=== PATIENT | male | born 1970 | race Two or more races ===

== ENCOUNTER 2020-08-11 20:17 | Inpatient (IN) | payer MEDICAID, SELFPAY ==
[2020-08-12 04:16] VITALS: BMI 21.6
--- NOTE | 2020-08-12 07:07 | ECG_ITS ---
Test Reason : CHEST PAIN Blood Pressure : / mmHG Vent. Rate : 079 BPM Atrial Rate : 079 BPM P-R Int : 176 ms QRS Dur : 110 ms QT Int : 420 ms P-R-T Axes : 038 -24 143 degrees QTc Int : 481 ms Normal sinus rhythm ST & T wave abnormality, consider lateral ischemia Prolonged QT Abnormal ECG When compared with ECG of 11-AUG-2020 16:59, No significant change was found Referred By: Maurice Grover Electronically Signed By:SUSANNE ROSA
[2020-08-13] VITALS (12 sets, daily range): BP systolic 100–133; BP diastolic 60–86; PULSE 66–81; RESP 15–18; TEMP 36.6–36.9; O2SAT 94–100; BMI 54.0
[2020-08-13] MEDS: ondansetron HCL 4 MG/2 ML VIAL IVPUSH ×2 (02:45→20:30)
[2020-08-13 06:52] LABS: B Type Natriuretic Peptide 2017 pg/mL (<100)
[2020-08-13 06:54] LABS: Anion Gap 11 (12-20); Blood Urea Nitrogen 21 mg/dL (9-16); Calcium 8.6 mg/dL (8.4-10.2); Carbon Dioxide 34 mmol/L (22-29); Chloride 91 mmol/L (96-108); Creatinine Clr Calc Pharmacy 87.3; Estimated Glomerular Filt Rate > 60; Glucose Fasting 115 mg/dL (60-99); Sodium 132 mmol/L (135-145)
[2020-08-13 07:13] LABS: Glucose, Whole Blood 106 mg/dL (60-115)
[2020-08-13] MEDS: carvediloL 6.25 MG TABLET PO ×2 (09:47→20:30)
[2020-08-13] MEDS: 0.9 % Sodium Chloride Flush 3 ML SYRINGE 2 ML IVFLUSH ×3 (09:48→16:59)
[2020-08-13] MEDS: Spironolactone 25 MG TABLET 12.5 MG PO (11:12)
[2020-08-13] MEDS: Losartan Potassium 25 MG TABLET PO (11:13)
[2020-08-13 11:29] LABS: Glucose, Whole Blood 179 mg/dL (60-115)
[2020-08-13 16:37] LABS: Glucose, Whole Blood 126 mg/dL (60-115)
[2020-08-13] MEDS: Acetaminophen 325 MG TABLET 650 MG PO (16:58)
--- NOTE | 2020-08-13 17:05 | HO.PM.IMPN ---
Subjective Subjective Date of Service: 08/13/20 Interval History: Patient presented with chest pain patient complaining of persistent chest pain asking for oxycodone or Motrin, he denies shortness of breath , PND , orthopnea Review of Systems Review of systems [employer] no headache, no dizziness CVS persistent reproducible chest pain, no cough gastrointestinal no nausea, no vomiting Physical Exam Vital Signs and I&O and Narrative: Vital Signs and I&O: Vital Signs Temp 98.1 F 08/13/20 15:18 Pulse 66 08/13/20 15:18 Resp 18 08/13/20 15:18 BP 100/60 08/13/20 15:18 Pulse Ox 96 08/13/20 15:18 Intake & Output 08/12/20 08/13/20 08/13/20 18:59 06:59 18:59 Intake Total 530 / 530 Output Total 500 / 500 901 / 901 Balance -500 / -500 -371 / -371 Urine Output (Aver age ml/kg/hr) 0.27 0.49 Weight 151.9 kg Intake: Intake, Oral Alexander unt 530 / 530 Output: Output, Urine Am ount 500 / 500 900 / 900 Output, Emesis A mount Other: Meal Refused Yes NPO No Breakfast % Eate n 25% Lunch % Eaten 25% Number of Unmeas ured Emesis 1 Episodes Urine Urinal Urinal Urine Color Yellow Yellow Emesis Color Brown Body Mass Index 54.0 Constitutional: Awake and Alert, no distress Cardiovascular: RRR, S1 S2 Respiratory: Lungs clear, no crackles, no respiratory distress Gastrointestinal: Normal bowel sounds, nontender Right extremities: BKA Left extremities: Improving lower extremity edema Musculoskeletal: Reproducible anterior chest wall pain, no swelling, no redness. Skin: Warm/Dry Neurological: Alert & oriented x3 Objective Data Current Medications Generic Name Dose Route Start Last Admin Trade Name Freq PRN Reason Stop Dose Admin Acetaminophen 650 mg 08/13/20 00:01 08/13/20 16:58 Acetaminophen 325 Mg Tablet PO 650 mg Q6H PRN Administration fever/pain,mild (1,3) Albuterol Sulfate 2.5 mg 08/13/20 00:01 Albuterol Sulfate (0.083%) 2.5 Mg/3 Ml Vial.Neb INHALE RQ4H PRN Shortness of Breath/Wheezing Atorvastatin Calcium 20 mg 08/13/20 21:00 Atorvastatin Calcium 20 Mg Tablet PO DAILY [facility] Carvedilol 6.25 mg 08/13/20 09:00 08/13/20 09:47 Carvedilol 6.25 Mg Tablet PO 6.25 mg BID [facility] Administration Protocol Enoxaparin Sodium 40 mg 08/13/20 18:00 08/13/20 17:04 Enoxaparin Sodium 40 Mg/0.4 Ml Syringe SUBCUT Not Given Q24H [facility] Furosemide 40 mg 08/13/20 10:24 Furosemide 40 Mg Tablet PO DAILY [facility] Protocol Losartan Potassium 25 mg 08/13/20 10:00 08/13/20 11:13 Losartan Potassium 25 Mg Tablet PO 25 mg DAILY [facility] Administration Protocol Methadone HCl 50 mg 08/13/20 09:00 08/13/20 09:49 Methadone Hcl 1 Mg/0.1 Ml Oral.Conc PO 50 mg DAILY [facility] Administration Ondansetron HCl 4 mg 08/13/20 00:01 08/13/20 02:45 Ondansetron Hcl 4 Mg/2 Ml Vial IVPUSH 4 mg Q8H PRN Administration Nausea and Vomiting Sodium Chloride 2 ml 08/13/20 00:01 08/13/20 16:59 0.9 % Sodium Chloride Flush 3 Ml Syringe IVFLUSH 2 ml QSHIFT [facility] Administration Spironolactone 12.5 mg 08/13/20 10:00 08/13/20 11:12 Spironolactone 25 Mg Tablet PO 12.5 mg DAILY [facility] Administration Protocol Labs CBC & Chem 7: 08/12/20 05:52 08/13/20 06:00 Labs: Laboratory Results - last 24 hr 08/11/20 08/11/20 08/11/20 16:31 16:31 16:31 MCV MCH MCHC RDW Coeff of Anthony Plt Count MPV Immature Gran % (Auto) Neut % (Auto) Lymph % (Auto) [place] % (Auto) Eos % (Auto) Baso % (Auto) Abs Immat Gran (auto) Absolute Lymphs (auto) Absolute Monos (auto) Absolute Eos (auto) Absolute Basos (auto) Absolute Nucleated RBC Nucleated RBC % (auto) Absolute Neutrophils PT INR APTT Bicarbonate 27 Anion Gap 17 Estimated Creat Clear 82.5 Estim Creat Clear Calc Estimated GFR Est GFR (Non-Af Amer) > 60 POC Glucose Random Glucose 131 H Fasting Glucose Calcium Iron TIBC Iron Saturation Total Bilirubin 0.6 Direct Bilirubin 0.4 AST 29 D ALT 20 Alkaline Phosphatase 176 H D Troponin I High Sens 19.1 D B-Natriuretic Peptide 2043 H Total Protein 8.6 H Albumin 3.6 Procalcitonin 0.04 ABO Group 08/11/20 08/11/20 08/11/20 16:31 16:31 19:27 MCV 84.7 MCH 26.2 L MCHC 30.9 L RDW Coeff of Anthony 18.5 H Plt Count 454 H MPV 9.8 Immature Gran % (Auto) 0.4 Neut % (Auto) 77.5 H Lymph % (Auto) 11.6 L [place] % (Auto) 9.0 Eos % (Auto) 1.2 Baso % (Auto) 0.3 Abs Immat Gran (auto) 0.04 H Absolute Lymphs (auto) 1.2 Absolute Monos (auto) 0.9 Absolute Eos (auto) 0.1 Absolute Basos (auto) 0.0 Absolute Nucleated RBC 0.000 Nucleated RBC % (auto) 0.0 Absolute Neutrophils 7.8 PT 16.0 H INR 1.3 H APTT 36.4 Bicarbonate Anion Gap Estimated Creat Clear Estim Creat Clear Calc Estimated GFR Est GFR (Non-Af Amer) POC Glucose Random Glucose Fasting Glucose Calcium Iron TIBC Iron Saturation Total Bilirubin Direct Bilirubin AST ALT Alkaline Phosphatase Troponin I High Sens 19.2 B-Natriuretic Peptide Total Protein Albumin Procalcitonin ABO Group 08/11/20 08/12/20 08/12/20 19:27 01:09 05:52 MCV MCH MCHC RDW Coeff of Anthony Plt Count MPV Immature Gran % (Auto) Neut % (Auto) Lymph % (Auto) [place] % (Auto) Eos % (Auto) Baso % (Auto) Abs Immat Gran (auto) Absolute Lymphs (auto) Absolute Monos (auto) Absolute Eos (auto) Absolute Basos (auto) Absolute Nucleated RBC Nucleated RBC % (auto) Absolute Neutrophils PT INR APTT Bicarbonate 31 H Anion Gap 13 Estimated Creat Clear 90.5 Estim Creat Clear Calc Estimated GFR Est GFR (Non-Af Amer) > 60 POC Glucose Random Glucose 92 Fasting Glucose Calcium 8.9 Iron 192 H TIBC < 209 L Iron Saturation TNP Total Bilirubin Direct Bilirubin AST ALT Alkaline Phosphatase Troponin I High Sens 18.5 B-Natriuretic Peptide Total Protein Albumin Procalcitonin ABO Group PRODUCT AVAILABLE 08/12/20 08/12/20 08/12/20 05:52 07:29 11:39 MCV 84.8 MCH 26.2 L MCHC 30.9 L RDW Coeff of Anthony 18.2 H Plt Count 395 MPV 9.8 Immature Gran % (Auto) 0.6 H Neut % (Auto) 70.9 Lymph % (Auto) 12.0 L [place] % (Auto) 15.4 H Eos % (Auto) 0.9 Baso % (Auto) 0.2 Abs Immat Gran (auto) 0.05 H Absolute Lymphs (auto) 1.1 L Absolute Monos (auto) 1.4 H Absolute Eos (auto) 0.1 Absolute Basos (auto) 0.0 Absolute Nucleated RBC 0.000 Nucleated RBC % (auto) 0.0 Absolute Neutrophils 6.4 PT INR APTT Bicarbonate Anion Gap Estimated Creat Clear Estim Creat Clear Calc Estimated GFR Est GFR (Non-Af Amer) POC Glucose 86 141 H Random Glucose Fasting Glucose Calcium Iron TIBC Iron Saturation Total Bilirubin Direct Bilirubin AST ALT Alkaline Phosphatase Troponin I High Sens B-Natriuretic Peptide Total Protein Albumin Procalcitonin ABO Group 08/12/20 08/13/20 08/13/20 16:20 05:34 05:34 MCV MCH MCHC RDW Coeff of Anthony Plt Count MPV Immature Gran % (Auto) Neut % (Auto) Lymph % (Auto) [place] % (Auto) Eos % (Auto) Baso % (Auto) Abs Immat Gran (auto) Absolute Lymphs (auto) Absolute Monos (auto) Absolute Eos (auto) Absolute Basos (auto) Absolute Nucleated RBC Nucleated RBC % (auto) Absolute Neutrophils PT INR APTT Bicarbonate Anion Gap 11 L Estimated Creat Clear Estim Creat Clear Calc 87.3 Estimated GFR > 60 Est GFR (Non-Af Amer) POC Glucose 93 Random Glucose Fasting Glucose 115 H Calcium 8.6 Iron TIBC Iron Saturation Total Bilirubin Direct Bilirubin AST ALT Alkaline Phosphatase Troponin I High Sens B-Natriuretic Peptide 2017 H Total Protein Albumin Procalcitonin ABO Group 08/13/20 08/13/20 08/13/20 06:00 06:00 07:09 MCV MCH MCHC RDW Coeff of Anthony Plt Count MPV Immature Gran % (Auto) Neut % (Auto) Lymph % (Auto) [place] % (Auto) Eos % (Auto) Baso % (Auto) Abs Immat Gran (auto) Absolute Lymphs (auto) Absolute Monos (auto) Absolute Eos (auto) Absolute Basos (auto) Absolute Nucleated RBC Nucleated RBC % (auto) Absolute Neutrophils PT INR APTT Bicarbonate Not Rcvd Anion Gap Not Rcvd Estimated Creat Clear Not Rcvd Estim Creat Clear Calc Estimated GFR Est GFR (Non-Af Amer) Not Rcvd POC Glucose 106 Random Glucose Fasting Glucose Not Rcvd Calcium Not Rcvd Iron TIBC Iron Saturation Total Bilirubin Direct Bilirubin AST ALT Alkaline Phosphatase Troponin I High Sens B-Natriuretic Peptide Not Rcvd Total Protein Albumin Procalcitonin ABO Group 08/13/20 08/13/20 11:26 16:24 MCV MCH MCHC RDW Coeff of Anthony Plt Count MPV Immature Gran % (Auto) Neut % (Auto) Lymph % (Auto) [place] % (Auto) Eos % (Auto) Baso % (Auto) Abs Immat Gran (auto) Absolute Lymphs (auto) Absolute Monos (auto) Absolute Eos (auto) Absolute Basos (auto) Absolute Nucleated RBC Nucleated RBC % (auto) Absolute Neutrophils PT INR APTT Bicarbonate Anion Gap Estimated Creat Clear Estim Creat Clear Calc Estimated GFR Est GFR (Non-Af Amer) POC Glucose 179 H 126 H Random Glucose Fasting Glucose Calcium Iron TIBC Iron Saturation Total Bilirubin Direct Bilirubin AST ALT Alkaline Phosphatase Troponin I High Sens B-Natriuretic Peptide Total Protein Albumin Procalcitonin ABO Group
[2020-08-13] MEDS: Atorvastatin Calcium 20 MG TABLET PO (20:30)
[2020-08-13 21:55] LABS: Glucose, Whole Blood 178 mg/dL (60-115)
[2020-08-14] VITALS: BP 114/76; PULSE 66; RESP 18; TEMP 36.9; O2SAT 95
[2020-08-14] MEDS: 0.9 % Sodium Chloride Flush 3 ML SYRINGE 2 ML IVFLUSH ×2 (01:33→09:01)
[2020-08-14 01:56] LABS: Glucose, Whole Blood 114 mg/dL (60-115)
[2020-08-14 04:01] VITALS: BP 125/76; PULSE 63; RESP 18; TEMP 36.9; O2SAT 100
[2020-08-14] MEDS: Acetaminophen 325 MG TABLET 650 MG PO (04:01)
[2020-08-14 05:20] VITALS: BMI 24.4
--- NOTE | 2020-08-14 05:39 | PC.NURSE ---
PATIENT HAD A 3 BEAT OF VTACH AT 2143. PT WAS ASYMPTOMATIC. HOSPITALIST NOTIFIED VIA [employer]. WILL CONTINUE TO MONITOR
--- NOTE | 2020-08-14 05:42 | PC.NURSE ---
PATIENT HAD A 7 BEAT OF VTACH AT 2200. PT ASSESSED, PT ASYMPTOMATIC. HOSPITALIST NOTIFIED. WILL CONTINUE TO MONITOR.
[2020-08-14 07:02] LABS: Anion Gap 11 (12-20); Blood Urea Nitrogen 17 mg/dL (9-16); Calcium 8.4 mg/dL (8.4-10.2); Carbon Dioxide 33 mmol/L (22-29); Chloride 90 mmol/L (96-108); Creatinine Clr Calc Pharmacy 84.7; Estimated Glomerular Filt Rate > 60; Glucose Random 171 mg/dL (60-115); Potassium 4.4 mmol/l (3.3-5.1); Sodium 130 mmol/L (135-145)
[2020-08-14 07:23] VITALS: BP 109/73; PULSE 65; RESP 18; TEMP 36.1; O2SAT 99
[2020-08-14 07:34] LABS: Glucose, Whole Blood 141 mg/dL (60-115)
[2020-08-14] MEDS: Spironolactone 25 MG TABLET 12.5 MG PO (09:02)
[2020-08-14] MEDS: Furosemide 40 MG TABLET PO (09:02)
[2020-08-14] MEDS: Atorvastatin Calcium 20 MG TABLET PO (09:02)
[2020-08-14] MEDS: Losartan Potassium 25 MG TABLET PO (09:03)
[2020-08-14] MEDS: carvediloL 6.25 MG TABLET PO (09:04)
--- NOTE | 2020-08-14 10:03 | CONS_ITS ---
DATE OF SERVICE: 08/13/2020 REQUESTING PROVIDER: Dinh Mccain MD REASON FOR CONSULTATION: History of severe cardiomyopathy and heart failure to optimize medical therapy. HISTORY OF PRESENT ILLNESS: This is a 50-year-old male with prior history of severe cardiomyopathy and LV systolic dysfunction with LVEF of about 10% to 15% by yesterday's echocardiogram, congestive heart failure syndrome, below-knee amputation, and diabetes presents to the hospital because of chest discomfort. He describes chest discomfort, which has been chronic problem, which is reproducible and worse with deep breathing. History was obtained with help of shield operator. Despite the shield operator, the patient is a very poor historian, does not know lot of his medical history from before. The patient came to the hospital because of the symptoms as mentioned. Cardiology consult was sought as there was unclear medicines at home. He denied any shortness of breath, nausea, or vomiting. No significant leg edema. When he came to the hospital, he was noted to be anemic with hemoglobin of 7.7. He subsequently transfused and he also noticed to have significantly elevated BNP. He was started on IV Lasix drip. The patient since yesterday has been diuresed. His intake and output chart from yesterday shows a negative balance of 500 cc. He is hemodynamically stable. He denies any orthopnea. Currently, continues to have this chest discomfort across the lower rib cage. He has no other complaints, but is focused on his chest pain. PAST MEDICAL HISTORY: Severe LV systolic dysfunction with heart failure with reduced ejection fraction with an echocardiogram yesterday showing LVEF of 10% to 15% with grade 3 diastolic dysfunction and pulmonary hypertension. He has untreated hepatitis C. He has bipolar disorder. He has polysubstance abuse on chronic methadone. He has diabetes. He has peripheral neuropathy, status post right below-knee amputation for what appears to be infection. FAMILY HISTORY: Noncontributory. PERSONAL HISTORY: Denies any smoking, alcohol abuse, or drug abuse. He lives at home. MEDICATIONS: He does not know his medications at home. Medications currently in the hospital include methadone 50 mg p.o. daily, Lovenox 40 mg subcu daily, carvedilol 6.25 mg b.i.d. Today, I added spironolactone 12.5 mg daily, atorvastatin 20 mg daily, losartan 25 mg daily, furosemide 40 mg p.o. daily. P.r.n. medicines are acetaminophen, Zofran, and albuterol. REVIEW OF SYSTEMS: Very difficult to obtain from the patient. The patient has no fever or chills. No recent weight gain or weight loss. No focal deficits. No visual changes or hearing loss. No upper respiratory or lower respiratory symptoms. Continues to have this across the chest thoracic cage discomfort, which is sharp in nature and reproducible with deep breathing as well as by touch. Denies any pressure. Denies any GI or symptoms. No leg edema. PHYSICAL EXAMINATION: GENERAL: The patient is alert and oriented x3, middle-aged man, in no acute respiratory distress, lying comfortably in bed. Pallor. There is no icterus. No cyanosis. VITAL SIGNS: Blood pressure currently is 123/76, pulse is 73, sinus rhythm, respirations of 14 to 16 per minute, pulse ox of 99% on room air, and temperature 97.9. HEENT: Normocephalic and atraumatic. NECK: Supple without jugular venous distention. LUNGS: Clear to auscultation. CARDIAC: Displaced point of maximum impulse, but regular S1 and S2 with S4. ABDOMEN: Benign. EXTREMITIES: Below-knee amputation on the right. Minimal edema on the left. BIOLOGICAL INSPECTOR: Grossly nonfocal. SKIN: Warm and moist. Good turgor. LABORATORY DATA: Sodium today 132, potassium 4, BUN 21, creatinine 0.85, and fasting glucose of 115. BNP of 2017. Hemoglobin yesterday 8.6, hematocrit 27.8, white cell count 9, and platelet count of 395. Pro-time 16 and INR 1.3. Chest x-ray is consistent with mild CHF with cardiomegaly with no acute cardiopulmonary pathology. EKG showed normal sinus rhythm with lateral ST-T wave changes, most likely related to repolarization abnormality with mildly prolonged QT interval. ASSESSMENT: This is a 50-year-old male who comes to the hospital with chest pain, which is noncardiac in origin, appears to be musculoskeletal related to prior trauma or psychogenic with underlying severe cardiomyopathy, grade 3 diastolic dysfunction with no overt signs of heart failure at current time with poor compliance with followup. Last seen in Cardiology Clinic here in July of [address] Gaming. PLAN: At this time, I think re-initiation of his cardiac medications has appropriately done currently. Continue carvedilol and gradually maximize as outpatient. Continue losartan and gradually maximize as outpatient and eventually can be switched to Entresto therapy as outpatient. Agree with Aldactone therapy. Agree with p.o. Lasix at this point in time, which can be eventually switched to torsemide his usual heart failure medications. Continue supportive care. Diabetes care as per the hospitalist team. From cardiac perspective, when ready, the patient can be discharged home. We discussed about heart failure management and knowing his medications, he showed no interest in wanting to learn about all his medications. The patient would like to follow with Cardiology at [facility]. This is being arranged by his primary care physician. MD SHABANA Azevedo/LISA / [phone]
[2020-08-14 11:16] VITALS: BP 135/74; PULSE 65; RESP 18; TEMP 36.3; O2SAT 98
[2020-08-14 11:31] LABS: Glucose, Whole Blood 212 mg/dL (60-115)
--- NOTE | 2020-08-14 12:49 | PM.DS ---
DS: Providers Provider Date of admission: 08/11/20 20:17 Primary care physician: Ashley Pendleton MD Consults: 08/12/20 21:24 Consult to Cardiology Routine Consulting Provider: Bishop Francisco Reason for consultation: chf DS: Diagnosis Discharge Diagnosis (1) Acute on chronic combined systolic and diastolic congestive heart failure: Status: Acute (2) Acute on chronic anemia: Status: Acute (3) Chest pain: Status: Acute DS: Summary Hospital Course Hospital Course: 50-year-old gentleman with past medical history significant for cardiomyopathy EF 10-15%, untreated hepatitis C bipolar disorder on methadone due to prior history of polysubstance abuse presented to [facility] due to intermittent stabbing 07/23 chest discomfort patient was noted to have reproducible chest pain however workup in the emergency room revealed an elevated BN BP of 204/3 hematocrit was 24.9 with recent prior hematocrit of 30.3 patient was admitted to [facility] with a diagnosis of acute on chronic systolic/ diastolic congestive heart failure acute on chronic systolic/ diastolic congestive heart failure with EF 10-15% patient was initially treated with IV Lasix drip with good response patient diuresed 3 L his symptoms of shortness of breathimproved significantly however he continued to complain of chest pain and requested for oxycodone, patient was seen in consultation by Dr. Scanlon he recommended to resume all home medications patient tolerated a Coreg, losartan, Lasix and spironolactone BP remains stable therefore being discharged home and have strongly recommended to avoid using NSAIDs and oxycodone in regard to his chronic medical issues he is continued on all of his home medications. Patient is not being discharged home on any new medications. Time Spent with Patient Time attestation: Total time spent providing and/or coordinating discharge services: Time spent: Greater than 30 minutes Physical Exam Vital Signs and I&O and Narrative: Vital Signs and I&O: Vital Signs Temp 97.3 F 08/14/20 11:16 Pulse 65 08/14/20 11:16 Resp 18 08/14/20 11:16 BP 135/74 08/14/20 11:16 Pulse Ox 98 08/14/20 11:16 Intake & Output 08/13/20 08/14/20 08/14/20 18:59 06:59 18:59 Intake Total 740 / 980 240 / 980 Output Total 1301 / 1951 650 / 1951 Balance -561 / -971 -410 / -971 Urine Output (Aver age ml/kg/hr) 0.49 0.79 0.79 Weight 68.577 kg Intake: Intake, Oral Alexander unt 740 / 980 240 / 980 Output: Output, Urine Am ount 900 / 1550 650 / 1550 Output, Emesis A mount 401 / 401 0 / 401 Other: Meal Refused Yes NPO No Breakfast % Eate n 25% 100% Lunch % Eaten 25% Dinner % Eaten 25% Number of Unmeas ured Emesis 2 Episodes Urine Urinal Urinal Urine Color Yellow Yellow Emesis Color Rice Body Mass Index 24.4 DS: Data Data Completed and Pending Labs on day of discharge: Labs from last 24 hours 08/14/20 08/14/20 08/14/20 11:23 07:30 05:33 Sodium 130 L Potassium 4.4 Chloride 90 L Carbon Dioxide 33 H Anion Gap 11 L BUN 17 H Creatinine 0.92 Estim Creat Clear Calc 84.7 Estimated GFR > 60 POC Glucose 212 H 141 H Random Glucose 171 H Calcium 8.4 Blood Type Antibody Screen 08/14/20 08/13/20 08/13/20 01:53 21:52 16:24 Sodium Potassium Chloride Carbon Dioxide Anion Gap BUN Creatinine Estim Creat Clear Calc Estimated GFR POC Glucose 114 178 H 126 H Random Glucose Calcium Blood Type Antibody Screen 08/11/20 19:25 Sodium Potassium Chloride Carbon Dioxide Anion Gap BUN Creatinine Estim Creat Clear Calc Estimated GFR POC Glucose Random Glucose Calcium Blood Type B Positive Antibody Screen NEGATIVE Discharge Plan Discharge Patient Disposition: Home, Self-Care Referrals: [facility] [Other] [facility] [Other] Ashley Pendleton MD [Primary Care Provider] - 1 Week (Please call and schedule a follow up appointment with your wood piler. [phone].) Discharge Medications: Continued albuterol sulfate 2.5 mg /3 mL (0.083 %) Solution For Nebulization 2.5 mg inhalation Q4H PRN (Reason: Shortness Of Breath Or Wheezing) RF: 0 (DME) lancets Misc MISCELLANEOUS RF: 0 famotidine [Pepcid] 20 mg Tablet 20 mg PO BID RF: 0 (DME) blood-glucose meter [FreeStyle [place] Lite] Kit MISCELLANEOUS RF: 0 (DME) cane Device MISCELLANEOUS RF: 0 (DME) FreeStyle Lite Strips RF: 0 magnesium oxide [MagOx] 400 mg (241.3 mg magnesium) Tablet 400 mg PO DAILY RF: 0 (DME) pen needle, diabetic Needle MISCELLANEOUS RF: 0 methadone 10 mg/mL Concentrate 50 mg PO DAILY RF: 0 albuterol sulfate 90 mcg/actuation Hfa Aerosol Inhaler 2 puff INHALATION Q4H PRN (Reason: Shortness Of Breath) RF: 0 zinc sulfate 110 mg (25 mg zinc) Tablet 220 mg PO DAILY RF: 0 spironolactone 25 mg Tablet 12.5 mg PO DAILY RF: 0 sennosides [senna] 8.6 mg Tablet 8.6 mg PO BEDTIME PRN (Reason: Constipation) RF: 0 Lantus U-100 Insulin 100 unit/mL Solution 12 unit SUBCUT QPM RF: 0 cetirizine 10 mg Tablet 10 mg PO DAILY RF: 0 aspirin 81 mg Tablet,Delayed Release (Dr/Ec) 81 mg PO DAILY RF: 0 insulin lispro 100 unit/mL Solution 5 unit SUBCUT TIDAC RF: 0 polyethylene glycol 3350 [Miralax] 17 gram/dose Powder 17 g PO DAILY RF: 0 carvedilol 6.25 mg Tablet 6.25 mg PO BID RF: 0 atorvastatin 20 mg Tablet 20 mg PO BEDTIME RF: 0 torsemide 20 mg Tablet 20 mg PO DAILY RF: 0 lidocaine [Lidocaine Pain Relief] 4 % Adhesive Patch,Medicated 1 patch TOPICAL DAILY PRN (Reason: Pain) RF: 0 clopidogrel 75 mg Tablet 75 mg PO DAILY RF: 0 tamsulosin 0.4 mg Capsule 0.4 mg PO DAILY RF: 0 fluticasone propion-salmeterol [Advair Diskus] 500-50 mcg/dose Blister With Device 1 inh INHALATION BID RF: 0 losartan 25 mg Tablet 25 mg PO DAILY RF: 0 montelukast 10 mg Tablet 10 mg PO BEDTIME RF: 0 gabapentin 100 mg Capsule 200 mg PO TID RF: 0 ergocalciferol (vitamin D2) 1,250 mcg (50,000 unit) Capsule 1,250 mcg PO QWEEK RF: 0 fluticasone propionate [Flonase Allergy Relief] 50 mcg/actuation [place],Suspension 1 spray INTRANASAL DAILY RF: 0 oxycodone 5 mg Tablet 5 mg PO Q6H PRN (Reason: Pain (Scale Score 1-3)) RF: 0 clotrimazole 1 % Cream 1 applic TOPICAL TID RF: 0 Eucerin Cream 1 applic TOPICAL DAILY PRN (Reason: Dry Skin) RF: 0 Discontinued diclofenac potassium 50 mg Tablet 50 mg PO BID RF: 0 cefuroxime axetil [Ceftin] 500 mg Tablet 500 mg PO Q12H RF: 0 metronidazole 500 mg Tablet 2,000 mg PO DAILY RF: 0 Discharge Orders: Discharge Order (Routine); Ordered 08/14/20 Ordered By: Dinh Mccain Diet: low fat, low cholesterol and low salt diet Activity on Discharge: As tolerated Visit Report Forms: Patient Portal Discharge page Care Plan Goals: as per discharge plan Health Concerns: as per discharge plan Plan of Treatment: close outpatient follow-up with PCP and Cardiology, take all medications as prescribed
--- NOTE | 2020-08-14 14:03 | MHC.CLN ---
F/U 75% AVG PO INTAKE DIET RX: 1500 2GM NA -APPROPRIATE FRANKLIN IN PLACE TO PROMOTE WOUND HEALING FOLLOWING
== END 2020-08-14 14:29 | disposition home or self-care (01) | DRG 194 ==
PROVIDERS: Admitting Provider Internal Medicine; Emergency Provider Physician Assistant; PCP Family Medicine; Visit Provider Hospitalist
DX: I50.23 Acute on chronic systolic (congestive) heart failure (principal); E11.42 Type 2 diabetes mellitus with diabetic polyneuropathy; I42.9 Cardiomyopathy, unspecified; F11.20 Opioid dependence, uncomplicated; E78.5 Hyperlipidemia, unspecified; J45.909 Unspecified asthma, uncomplicated; B18.2 Chronic viral hepatitis C; D63.8 Anemia in other chronic diseases classified elsewhere; F31.9 Bipolar disorder, unspecified; Z89.511 Acquired absence of right leg below knee; Z88.2 Allergy status to sulfonamides; Z79.4 Long term (current) use of insulin; Z79.02 Long term (current) use of antithrombotics/antiplatelets; Z79.51 Long term (current) use of inhaled steroids; Z79.82 Long term (current) use of aspirin; Z79.899 Other long term (current) drug therapy
CPT/HCPCS: 36415; 36430; 71046; 80048; 80051; 80076; 82565; 82947; 83540; 83550; 83880; 84145; 84484; 84520; 85014; 85018; 85025; 85610; 85730; 86850; 86900; 86901; 86923; 93005; 93010; 93306; 96365; 96366; 96375; 99285; J1650; J1940; J2270; J2405; P9016; Q9957

== ENCOUNTER 2020-08-16 18:14 | Emergency (ER) | payer MEDICAID, SELFPAY ==
--- NOTE | 2020-08-16 | XR_ITS ---
EXAMINATION: XR CHEST CLINICAL INFORMATION: Chest pain COMPARISON: Chest radiograph 08/11/[address] 08/04/2020 TECHNIQUE: Frontal view of the chest was obtained. FINDINGS: Again seen is cardiomegaly. There has been some mild improvement in shaft previously noted with some mild interstitial prominence remaining. Tiny pleural effusions that had been present previously decreased in size, barely perceptible. Small amount of fluid present in the minor fissure. No focal consolidations. IMPRESSION: Cardiomegaly with slightly improved in appearances with decreasing CHF. Mild changes persist.
--- NOTE | 2020-08-16 | ECG_ITS ---
Test Reason : CHEST PAIN Blood Pressure : / mmHG Vent. Rate : 088 BPM Atrial Rate : 088 BPM P-R Int : 190 ms QRS Dur : 114 ms QT Int : 414 ms P-R-T Axes : 032 -25 126 degrees QTc Int : 500 ms Normal sinus rhythm ST & T wave abnormality, consider lateral ischemia Prolonged QT Abnormal ECG When compared with ECG of 12-AUG-2020 00:47, No significant change was found Referred By: Martin Keller Electronically Signed By:SUSANNE ROSA
[2020-08-16 18:25] VITALS: BP 127/70; BP 147/84; PULSE 109; PULSE 97; RESP 20; TEMP 36.9; O2SAT 100; BMI 21.6
--- NOTE | 2020-08-16 18:37 | ED_ITS ---
HPI - Chest Pain General Chief Complaint: Chest Pain Stated Complaint: left shoulder pain Time Seen by Provider: 08/16/20 18:22 Source: patient and EMS Mode of arrival: EMS History of Present Illness HPI narrative: 50-year-old female with chief complaint of center chest pain with left shoulder pain. Patient states has been having this pain for several weeks intermittently has been seen here multiple times for the same. Patient did have a CT scan that shows rib fractures. Patient continues to have chest pain. Denies shortness of breath. Patient states no fevers or chills. Patient states was nauseous earlier today however no vomiting. Patient states chest is very tender Onset (ago): week(s) ( weeks with worsening today) Timing of current episode: constant Prior episodes: Yes Onset: during rest Quality: aching Related Data Home Medications Medication Instructions Recorded Confirmed FreeStyle Lite Strips 08/12/20 08/12/20 albuterol sulfate 2 puff INHALATION Q4H PRN 08/12/20 08/12/20 albuterol sulfate 2.5 mg INHALATION Q4H PRN 08/12/20 08/12/20 blood-glucose meter [FreeStyle 08/12/20 08/12/20 [place] Lite] cane 08/12/20 08/12/20 famotidine [Pepcid] 20 mg PO BID 08/12/20 08/12/20 lancets 08/12/20 08/12/20 magnesium oxide [MagOx] 400 mg PO DAILY 08/12/20 08/12/20 methadone 50 mg PO DAILY 08/12/20 08/12/20 pen needle, diabetic 08/12/20 08/12/20 Eucerin 1 applic TOPICAL DAILY PRN 08/14/20 08/14/20 Lantus U-100 Insulin 12 unit SUBCUT QPM 08/14/20 08/14/20 aspirin 81 mg PO DAILY 08/14/20 08/14/20 atorvastatin 20 mg PO BEDTIME 08/14/20 08/14/20 carvedilol 6.25 mg PO BID 08/14/20 08/14/20 cetirizine 10 mg PO DAILY 08/14/20 08/14/20 clopidogrel 75 mg PO DAILY 08/14/20 08/14/20 clotrimazole 1 applic TOPICAL TID 08/14/20 08/14/20 ergocalciferol (vitamin D2) 1,250 mcg PO QWEEK 08/14/20 08/14/20 fluticasone propion-salmeterol 1 inh INHALATION BID 08/14/20 08/14/20 [Advair Diskus] fluticasone propionate [Flonase 1 spray INTRANASAL DAILY 08/14/20 08/14/20 Allergy Relief] gabapentin 200 mg PO TID 08/14/20 08/14/20 insulin lispro 5 unit SUBCUT TIDAC 08/14/20 08/14/20 lidocaine [Lidocaine Pain Relief] 1 patch TOPICAL DAILY PRN 08/14/20 08/14/20 losartan 25 mg PO DAILY 08/14/20 08/14/20 montelukast 10 mg PO BEDTIME 08/14/20 08/14/20 oxycodone 5 mg PO Q6H PRN 08/14/20 08/14/20 polyethylene glycol 3350 [Miralax] 17 g PO DAILY 08/14/20 08/14/20 sennosides [senna] 8.6 mg PO BEDTIME PRN 08/14/20 08/14/20 spironolactone 12.5 mg PO DAILY 08/14/20 08/14/20 tamsulosin 0.4 mg PO DAILY 08/14/20 08/14/20 torsemide 20 mg PO DAILY 08/14/20 08/14/20 zinc sulfate 220 mg PO DAILY 08/14/20 08/14/20 Allergies Allergy/AdvReac Type Severity Reaction Status Date / Time vancomycin [VANCOMYCIN] Allergy Intermediate HIVES Verified 08/16/20 21:06 Chocolate Allergy Unknown Rash Verified 08/16/20 21:06 ciprofloxacin [From CIPRO] Allergy Unknown SWELLING Verified 08/16/20 21:06 ertapenem Allergy Unknown Hives Verified 08/16/20 21:06 hydrocortisone [Cipro HC] Allergy Unknown Unknown Verified 08/16/20 21:06 sulfamethoxazole Allergy Unknown rash Verified 08/16/20 21:06 [From BACTRIM] trimethoprim [From BACTRIM] Allergy Unknown rash Verified 08/16/20 21:06 turkey [TURKEY] Allergy Unknown RASH Verified 08/16/20 21:06 From INVANZ Allergy Intermediate HIVES Uncoded 07/30/20 16:40 choclate Allergy Unknown rash Uncoded 07/23/19 00:00 Review of Systems Review of Systems: Constitutional : No Weight loss, No Fever, No Chills, No Night Sweats, No Fatigue, No Malaise ENT/Mouth : No Hearing loss, No Ear Pain, No Nasal Congestion, No Sinus Pain, No Hoarseness, No sore throat, No Rhinorrhea, No Swallowing Difficulty Eyes: No Eye Pain, No Swelling, No Redness, No Foreign Body, No Discharge, No Vision Changes Cardiovascular : positive Chest Pain, No SOB, No Dyspnea on Exertion, No Orthopnea, No Edema, No Palpitations Respiratory : No Cough, No Sputum, No Wheezing, No Smoke Exposure, No Dyspnea Gastrointestinal : No Nausea, No Vomiting, No Diarrhea, No Constipation, No abdominal Pain, No Hematochezia, No Melena Genitourinary : no irregular bleeding, No Dysuria, No Urinary Frequency, No Hematuria, No Urinary Incontinence, No Urgency, No Flank Pain, No Urinary Flow Changes, No Hesitancy Musculoskeletal : No joint pain, No Myalgias, lower extremity amputation Skin : No Skin Lesions, No rash Neuro : No Weakness, No Numbness, No Paresthesias, No Loss of Consciousness, No Dizziness, No Headache Psych : No Anxiety/Panic, No Depression, No SI/HI/AH/VH, No Social Issues, Heme/Lymph: No Bruising, No Bleeding,No Lymphadenopathy Endocrine : No Polyuria, No Polydipsia, No Temperature Intolerance [facility] Past Medical History Medical History COPD (chronic obstructive pulmonary disease) Diabetes mellitus, type 2 Surgical History History of amputation Social History Social History Smoked in Last 30 Days: No Use of substances other than those prescribed or required for medical reasons: Yes Substance Use Type: Marijuana Advance Directives: No Advance Directives Information Provided: Yes Physical Exam Vital Signs and I&O and Narrative: Vital Signs and I&O: Vital Signs Temp 98.2 F 08/16/20 19:45 Pulse 80 08/16/20 23:13 Resp 18 08/16/20 23:13 BP 123/74 08/16/20 23:13 Pulse Ox 98 08/16/20 22:16 Intake & Output 08/16/20 08/16/20 08/17/20 06:59 18:59 06:59 Intake Total 1000 / 1000 Balance 1000 / 1000 Weight 60.781 kg Intake: Intake, IV Amoun t 1000 / 1000 0.9 % Sodium C hloride 1,000 ml 1000 / 1000 @ 999 mls/hr I VCONT .Q1H1M [facility] Rx#:[id number] Body Mass Index 21.6 reviewed Appearance: Alert. Oriented X3. mild pain Eyes: Pupils equal, round and reactive to light. ENT: Pharynx normal. Neck: Normal inspection. Neck supple. CVS: Normal heart rate and rhythm. Pulses normal. pain on palpation to center chest. No rash. No lacerations Respiratory: No respiratory distress. Breath sounds normal. Abdomen: Soft and nontender. Skin: Skin warm and dry. Normal skin color. Normal skin turgor. Extremities: No lower extremity edema. right BKA Neuro: Oriented X 3. No motor deficit. No sensory deficit. Course Course Hospital Course: patient's records reviewed. Patient's laboratory and chest x-ray have improved from last visit. Patient does have an EF of 10%. And history of broken ribs. Patient's chest pain has been constant which are no signs of acute coronary syndrome. No signs of acute CHF. In which results showed that his chest x-ray is improved. However patient is BNP is slightly elevated however he is not hypoxic in no respiratory distress and will give him some IV Lasix and discharged home patient states his chest pain is chronic and nobody helps , It is isn't Hib follow-up with primary care doctor MDM - Chest Pain Lab Data Result diagrams: 08/16/20 18:48 08/16/20 19:39 Labs: Lab Results 08/16/20 08/16/20 08/16/20 Range/Units 18:48 18:48 19:39 WBC 8.8 (4.8-10.8) X10*3/uL RBC 4.40 L (4.60-5.80) X10*6/uL Hgb 11.4 L (14.0-18.0) g/dl Hct 38.6 L (42-52) % MCV 87.7 (80-98) fL MCH 25.9 L (27.0-33.0) pg MCHC 29.5 L (31.0-36.0) g/dl RDW 20.5 H (11.0-16.0) % Plt Count 397 (160-400) X10*3/uL MPV 9.5 (9.4-12.4) fL Immature Gran % (Auto) 0.5 H (0.0-0.4) % Neut % (Auto) 69.1 (45-73) % Lymph % (Auto) 14.7 L (20-40) % [place] % (Auto) 12.2 H (2-11) % Eos % (Auto) 3.2 (0-4) % Baso % (Auto) 0.3 (0-2) % Neut # (Auto) 6.1 (2.0-8.3) X10*3/uL Lymph # (Auto) 1.3 (1.2-4.9) X10*3/uL [place] # (Auto) 1.1 (0.1-1.2) X10*3/uL Eos # (Auto) 0.3 (0.0-0.4) X10*3/uL Baso # (Auto) 0.0 (0.0-0.2) X10*3/uL Abs Immat Gran (auto) 0.04 H (0.00-0.03) X10*3/uL Absolute Nucleated RBC 0.000 (0.0-0.012) X10*3/uL Nucleated RBC % (auto) 0.0 (0.0-0.2) /100WBC Sodium (135-145) mmol/L Potassium (3.3-5.1) mmol/l Chloride (96-108) mmol/L Carbon Dioxide (22-29) mmol/L Anion Gap (12-20) BUN (9-16) mg/dL Creatinine (0.5-1.4) mg/dL Estim Creat Clear Calc Estimated GFR Random Glucose (60-115) mg/dL Calcium (8.4-10.2) mg/dL Total Bilirubin (0.0-1.0) mg/dL Direct Bilirubin (0.0-0.5) mg/dL AST (5-37) U/L ALT (0-40) U/L Alkaline Phosphatase (39-117) U/L Troponin I High Sens 31.7 (<3.5-35.0) ng/L B-Natriuretic Peptide 2181 H (<100) pg/mL Total Protein (6.5-8.0) g/dL Albumin (3.5-5.0) g/dL 08/16/20 08/16/20 Range/Units 19:39 21:39 WBC (4.8-10.8) X10*3/uL RBC (4.60-5.80) X10*6/uL Hgb (14.0-18.0) g/dl Hct (42-52) % MCV (80-98) fL MCH (27.0-33.0) pg MCHC (31.0-36.0) g/dl RDW (11.0-16.0) % Plt Count (160-400) X10*3/uL MPV (9.4-12.4) fL Immature Gran % (Auto) (0.0-0.4) % Neut % (Auto) (45-73) % Lymph % (Auto) (20-40) % [place] % (Auto) (2-11) % Eos % (Auto) (0-4) % Baso % (Auto) (0-2) % Neut # (Auto) (2.0-8.3) X10*3/uL Lymph # (Auto) (1.2-4.9) X10*3/uL [place] # (Auto) (0.1-1.2) X10*3/uL Eos # (Auto) (0.0-0.4) X10*3/uL Baso # (Auto) (0.0-0.2) X10*3/uL Abs Immat Gran (auto) (0.00-0.03) X10*3/uL Absolute Nucleated RBC (0.0-0.012) X10*3/uL Nucleated RBC % (auto) (0.0-0.2) /100WBC Sodium 135 (135-145) mmol/L Potassium 3.7 (3.3-5.1) mmol/l Chloride 97 (96-108) mmol/L Carbon Dioxide 29 (22-29) mmol/L Anion Gap 13 (12-20) BUN 14 (9-16) mg/dL Creatinine 0.79 (0.5-1.4) mg/dL Estim Creat Clear Calc 94.0 Estimated GFR > 60 Random Glucose 176 H (60-115) mg/dL Calcium 8.6 (8.4-10.2) mg/dL Total Bilirubin 0.5 (0.0-1.0) mg/dL Direct Bilirubin 0.4 (0.0-0.5) mg/dL AST 42 H (5-37) U/L ALT 43 H (0-40) U/L Alkaline Phosphatase 129 H (39-117) U/L Troponin I High Sens 35.7 H (<3.5-35.0) ng/L B-Natriuretic Peptide (<100) pg/mL Total Protein 7.4 (6.5-8.0) g/dL Albumin 3.2 L (3.5-5.0) g/dL ECG Data ECG #1: Attestation: I personally reviewed and interpreted this ECG as follows: Interpretation: 88 beats per minute normal sinus rhythm. Normal CT interval. Right-sided axis. No ST T depressions or elevations Discharge Plan Discharge Clinical Impression: Anterior chest wall pain, Mild congestive heart failure Patient Disposition: Home, Self-Care Instructions: Heart Failure (ED), Chest Pain (ED) Additional Instructions: Thank you for visiting the emergency department today. If your symptoms worsen or do not resolve completely please return to the emergency department imm ediately or call 911. if he have any questions please call your primary care physician Prescriptions: No Action albuterol sulfate 2.5 mg /3 mL (0.083 %) Solution For Nebulization 2.5 mg inhalation Q4H PRN (Reason: Shortness Of Breath Or Wheezing) RF: 0 (DME) lancets Misc MISCELLANEOUS RF: 0 famotidine [Pepcid] 20 mg Tablet 20 mg PO BID RF: 0 (DME) blood-glucose meter [FreeStyle [place] Lite] Kit MISCELLANEOUS RF: 0 (DME) cane Device MISCELLANEOUS RF: 0 (DME) FreeStyle Lite Strips RF: 0 magnesium oxide [MagOx] 400 mg (241.3 mg magnesium) Tablet 400 mg PO DAILY RF: 0 (DME) pen needle, diabetic Needle MISCELLANEOUS RF: 0 methadone 10 mg/mL Concentrate 50 mg PO DAILY RF: 0 albuterol sulfate 90 mcg/actuation Hfa Aerosol Inhaler 2 puff INHALATION Q4H PRN (Reason: Shortness Of Breath) RF: 0 zinc sulfate 110 mg (25 mg zinc) Tablet 220 mg PO DAILY RF: 0 spironolactone 25 mg Tablet 12.5 mg PO DAILY RF: 0 sennosides [senna] 8.6 mg Tablet 8.6 mg PO BEDTIME PRN (Reason: Constipation) RF: 0 Lantus U-100 Insulin 100 unit/mL Solution 12 unit SUBCUT QPM RF: 0 cetirizine 10 mg Tablet 10 mg PO DAILY RF: 0 aspirin 81 mg Tablet,Delayed Release (Dr/Ec) 81 mg PO DAILY RF: 0 insulin lispro 100 unit/mL Solution 5 unit SUBCUT TIDAC RF: 0 polyethylene glycol 3350 [Miralax] 17 gram/dose Powder 17 g PO DAILY RF: 0 carvedilol 6.25 mg Tablet 6.25 mg PO BID RF: 0 atorvastatin 20 mg Tablet 20 mg PO BEDTIME RF: 0 torsemide 20 mg Tablet 20 mg PO DAILY RF: 0 lidocaine [Lidocaine Pain Relief] 4 % Adhesive Patch,Medicated 1 patch TOPICAL DAILY PRN (Reason: Pain) RF: 0 clopidogrel 75 mg Tablet 75 mg PO DAILY RF: 0 tamsulosin 0.4 mg Capsule 0.4 mg PO DAILY RF: 0 fluticasone propion-salmeterol [Advair Diskus] 500-50 mcg/dose Blister With Device 1 inh INHALATION BID RF: 0 losartan 25 mg Tablet 25 mg PO DAILY RF: 0 montelukast 10 mg Tablet 10 mg PO BEDTIME RF: 0 gabapentin 100 mg Capsule 200 mg PO TID RF: 0 ergocalciferol (vitamin D2) 1,250 mcg (50,000 unit) Capsule 1,250 mcg PO QWEEK RF: 0 fluticasone propionate [Flonase Allergy Relief] 50 mcg/actuation [place],Suspension 1 spray INTRANASAL DAILY RF: 0 oxycodone 5 mg Tablet 5 mg PO Q6H PRN (Reason: Pain (Scale Score 1-3)) RF: 0 clotrimazole 1 % Cream 1 applic TOPICAL TID RF: 0 Eucerin Cream 1 applic TOPICAL DAILY PRN (Reason: Dry Skin) RF: 0 Referrals: Ashley Pendleton MD [Primary Care Provider] - 2 days Interventions: ED Discharge Assessment Last Done: 08/16/20 23:44 Discharge Date/Time: 08/16/20 23:45
[2020-08-16] MEDS: Ketorolac Tromethamine 30 MG/ML VIAL IV (18:52)
[2020-08-16] MEDS: 0.9 % Sodium Chloride 1,000 ML 999 ML IVCONT (18:52)
[2020-08-16 18:55] LABS: MANUAL DIFF FLAG NO
[2020-08-16 18:56] LABS: Basophils Percent Auto 0.3 % (0-2); Eosinophils Absolute Auto 0.3 X10*3/uL (0.0-0.4); Eosinophils Percent Auto 3.2 % (0-4); Hematocrit 38.6 % (42-52); Hemoglobin 11.4 g/dl (14.0-18.0); Imm Gran Abs Auto 0.04 X10*3/uL (0.00-0.03); Imm Gran Pct Auto 0.5 % (0.0-0.4); Lymphocytes Absolute Auto 1.3 X10*3/uL (1.2-4.9); Lymphocytes Percent Auto 14.7 % (20-40); Mean Corpuscular HGB Conc 29.5 g/dl (31.0-36.0); Mean Corpuscular Hemoglobin 25.9 pg (27.0-33.0); Mean Corpuscular Volume 87.7 fL (80-98); Mean Platelet Volume 9.5 fL (9.4-12.4); Monocytes Absolute Auto 1.1 X10*3/uL (0.1-1.2); Monocytes Percent Auto 12.2 % (2-11); Neutrophils Absolute Auto 6.1 X10*3/uL (2.0-8.3); Neutrophils Percent Auto 69.1 % (45-73); Platelet Count 397 X10*3/uL (160-400); Red Cell Distribution Width 20.5 % (11.0-16.0); White Blood Count 8.8 X10*3/uL (4.8-10.8)
--- NOTE | 2020-08-16 19:29 | PC.NURSE ---
nurse report taken from denise vaca at 1900. assumed care of patient. pt redraw of labs in progress. pt in nad, vitals wnl. pt aware of plan of care. neuro intact.
[2020-08-16 19:33] LABS: Troponin-I High Sensitivity 31.7 ng/L (<3.5-35.0)
[2020-08-16 19:45] VITALS: BP 126/72; PULSE 75; RESP 10; TEMP 36.8; O2SAT 94
[2020-08-16 20:15] LABS: Alanine Aminotransferase 43 U/L (0-40); Albumin Level 3.2 g/dL (3.5-5.0); Alkaline Phosphatase 129 U/L (39-117); Anion Gap 13 (12-20); Aspartate Amino Transferase 42 U/L (5-37); Bilirubin Direct 0.4 mg/dL (0.0-0.5); Bilirubin Total 0.5 mg/dL (0.0-1.0); Blood Urea Nitrogen 14 mg/dL (9-16); Calcium 8.6 mg/dL (8.4-10.2); Carbon Dioxide 29 mmol/L (22-29); Chloride 97 mmol/L (96-108); Estimated Glomerular Filt Rate > 60; Glucose Random 176 mg/dL (60-115); Potassium 3.7 mmol/l (3.3-5.1); Sodium 135 mmol/L (135-145); Total Protein 7.4 g/dL (6.5-8.0)
[2020-08-16 20:20] LABS: B Type Natriuretic Peptide 2181 pg/mL (<100)
--- NOTE | 2020-08-16 20:35 | PC.NURSE ---
plan for repeat troponin. pt in nad, remains ns on tele. pt agreeable to plan of care
[2020-08-16] MEDS: Morphine Sulfate 4 MG/ML CARTRIDGE IVPUSH (21:09)
--- NOTE | 2020-08-16 21:37 | PC.NURSE ---
PT GIVEN MORPHINE. REQUESTED DRINK. GIVEN. REPEAT TROPONIN IN PROGRESS
[2020-08-16 22:16] VITALS: BP 126/75; PULSE 79; O2SAT 98
[2020-08-16 22:23] LABS: Troponin-I High Sensitivity 35.7 ng/L (<3.5-35.0)
[2020-08-16 23:13] VITALS: BP 123/74; PULSE 80; RESP 18
[2020-08-16] MEDS: Furosemide 100 MG/10 ML VIAL 60 MG IVPUSH (23:13)
--- NOTE | 2020-08-16 23:20 | PC.NURSE ---
pt medicated with iv lasix prior to d/c iv taken out. ambulance being arranged by ed statistical secretary. pt in nad. aware of plan of care and agreeble
== END 2020-08-16 23:45 | disposition home or self-care (01) ==
PROVIDERS: Emergency Provider Emergency Medicine; PCP Family Medicine
DX: I50.9 Heart failure, unspecified (principal); R07.89 Other chest pain; E11.9 Type 2 diabetes mellitus without complications; Z79.4 Long term (current) use of insulin; Z89.519 Acquired absence of unspecified leg below knee
CPT/HCPCS: 36415; 71045; 80048; 80076; 83880; 84484; 85025; 93005; 93010; 96361; 96374; 96375; 99284; J1885; J2270

== ENCOUNTER 2020-08-18 04:28 | Emergency (ER) | payer MEDICAID, SELFPAY ==
--- NOTE | 2020-08-18 | ECG_ITS ---
Test Reason : CHEST PAIN Blood Pressure : / mmHG Vent. Rate : 101 BPM Atrial Rate : 101 BPM P-R Int : 184 ms QRS Dur : 116 ms QT Int : 378 ms P-R-T Axes : 047 -24 123 degrees QTc Int : 490 ms Sinus tachycardia Incomplete left bundle branch block ST & T wave abnormality, consider lateral ischemia Abnormal ECG When compared with ECG of 16-AUG-2020 18:52, Heart rate has increased Referred By: Bhavani Parks Electronically Signed By:SUSANNE ROSA
--- NOTE | 2020-08-18 | CT_ITS ---
EXAMINATION: CT CHEST WITHOUT CONTRAST CLINICAL INFORMATION: Chest pain COMPARISON: Previous chest CT most recent July 2020 and September 2019 and previous chest x-rays most recent from earlier the same day TECHNIQUE: Multidetector volumetric CT imaging of the chest was done. Axial MIP volume rendering provided. Sagittal and coronal reformatted images were obtained. This CT examination was performed using dose optimization techniques as appropriate, variously including the following: *Automated exposure control *Adjustment of mA and/or kV according to patient size (this includes techniques or standardized protocols for targeted exams where dose is matched to indication/reason for exam; i.e. extremities or head) *Use of iterative reconstruction technique DLP: 266 mGy-cm FINDINGS: WAX PATTERN ASSEMBLER: Enlarged heart and pulmonary venous redistribution. LUNGS: There are suggestive of mild interstitial pulmonary edema. This is greatest in the lower lungs. MEDIASTINUM: The heart is enlarged. There are enlarged mediastinal lymph nodes. These do not appear appreciably changed from previous exams. Largest lymph nodes are a right subcarinal lymph node measuring 2 x 2.5 cm and a right precarinal lymph node measuring 1.8 x 2.2 cm. Evaluation for hilar adenopathy is limited due to lack of contrast. There may be bilateral hilar lymphadenopathy as well. Some mediastinal and hilar lymph nodes appear partially calcified. There is a trace pericardial effusion or pericardial thickening. There is a 7 mm lymph node in the right epicardial fat. There is severe coronary artery calcification. The thoracic aorta is normal in caliber. PLEURA: There are small bilateral pleural effusions, right greater than left. AXILLA: There is abnormal soft tissue seen surrounding the sternum, manubrium and costochondral cartilage of the anterior ribs, right greater than left. Greatest involvement is adjacent to the right anterior fifth rib axial image 33 series 2. This can be seen on old exams going back to September 2019. This is new compared to prior exam from May 2019. There is question of some erosive change of the posterior sternum. No other evidence of definite bone destruction is seen. There are small bilateral axillary lymph nodes. UPPER ABDOMEN: There is evidence of atherosclerotic disease. The spleen may be prominent. OSSEOUS STRUCTURES: There are mild degenerative changes of the spine. Abnormal anterior chest wall soft tissue surrounding the manubrium, sternum and bilateral anterior ribs and costochondral cartilage, greatest adjacent to the right fifth costochondral cartilage as described above. Question mild adjacent erosive changes in the posterior sternum. IMPRESSION: Enlarged heart and CHF. Severe coronary artery calcification. Abnormal chest wall soft tissue adjacent to the sternum, manubrium and multiple anterior costochondral cartilage and multiple anterior RIBS, right greater than left. This can be seen on old exams going back to September 2019 infectious, inflammatory and neoplastic processes should be considered. Enlarged mediastinal lymph nodes, some partially calcified also unchanged.
[2020-08-18 05:43] VITALS: BP 156/90; PULSE 96; RESP 16; TEMP 35.5; O2SAT 98; BMI 21.6
--- NOTE | 2020-08-18 06:45 | ED.GENADULT ---
HPI - General Adult General Chief complaint: General Medical Stated complaint: rib pain Time Seen by Provider: 08/18/20 06:45 Source: patient Mode of arrival: EMS Limitations: other (poor historian) History of Present Illness HPI narrative: patient with extensive medical problems with prior chest injury comes in again c/o pain to chest without any changes to chest pain, states it makes him feel short of breath at times, just seen yesterday for same. ,states no change in his complaint Onset (ago): month(s) Radiation: non-radiation Quality: aching Pain Consistency: constant Relieving factors: none Exacerbating factors: movement Associated symptoms: shortness of breath Treatments prior to arrival: other (lidocaine patches) Related Data Home Medications Medication Instructions Recorded Confirmed FreeStyle Lite Strips 08/12/20 08/12/20 albuterol sulfate 2 puff INHALATION Q4H PRN 08/12/20 08/12/20 albuterol sulfate 2.5 mg INHALATION Q4H PRN 08/12/20 08/12/20 blood-glucose meter [FreeStyle 08/12/20 08/12/20 [place] Lite] cane 08/12/20 08/12/20 famotidine [Pepcid] 20 mg PO BID 08/12/20 08/12/20 lancets 08/12/20 08/12/20 magnesium oxide [MagOx] 400 mg PO DAILY 08/12/20 08/12/20 methadone 50 mg PO DAILY 08/12/20 08/12/20 pen needle, diabetic 08/12/20 08/12/20 Eucerin 1 applic TOPICAL DAILY PRN 08/14/20 08/14/20 Lantus U-100 Insulin 12 unit SUBCUT QPM 08/14/20 08/14/20 aspirin 81 mg PO DAILY 08/14/20 08/14/20 atorvastatin 20 mg PO BEDTIME 08/14/20 08/14/20 carvedilol 6.25 mg PO BID 08/14/20 08/14/20 cetirizine 10 mg PO DAILY 08/14/20 08/14/20 clopidogrel 75 mg PO DAILY 08/14/20 08/14/20 clotrimazole 1 applic TOPICAL TID 08/14/20 08/14/20 ergocalciferol (vitamin D2) 1,250 mcg PO QWEEK 08/14/20 08/14/20 fluticasone propion-salmeterol 1 inh INHALATION BID 08/14/20 08/14/20 [Advair Diskus] fluticasone propionate [Flonase 1 spray INTRANASAL DAILY 08/14/20 08/14/20 Allergy Relief] gabapentin 200 mg PO TID 08/14/20 08/14/20 insulin lispro 5 unit SUBCUT TIDAC 08/14/20 08/14/20 lidocaine [Lidocaine Pain Relief] 1 patch TOPICAL DAILY PRN 08/14/20 08/14/20 losartan 25 mg PO DAILY 08/14/20 08/14/20 montelukast 10 mg PO BEDTIME 08/14/20 08/14/20 oxycodone 5 mg PO Q6H PRN 08/14/20 08/14/20 polyethylene glycol 3350 [Miralax] 17 g PO DAILY 08/14/20 08/14/20 sennosides [senna] 8.6 mg PO BEDTIME PRN 08/14/20 08/14/20 spironolactone 12.5 mg PO DAILY 08/14/20 08/14/20 tamsulosin 0.4 mg PO DAILY 08/14/20 08/14/20 torsemide 20 mg PO DAILY 08/14/20 08/14/20 zinc sulfate 220 mg PO DAILY 08/14/20 08/14/20 Allergies Allergy/AdvReac Type Severity Reaction Status Date / Time vancomycin [VANCOMYCIN] Allergy Intermediate HIVES Verified 08/16/20 21:06 Chocolate Allergy Unknown Rash Verified 08/16/20 21:06 ciprofloxacin [From CIPRO] Allergy Unknown SWELLING Verified 08/16/20 21:06 ertapenem Allergy Unknown Hives Verified 08/16/20 21:06 hydrocortisone [Cipro HC] Allergy Unknown Unknown Verified 08/16/20 21:06 sulfamethoxazole Allergy Unknown rash Verified 08/16/20 21:06 [From BACTRIM] trimethoprim [From BACTRIM] Allergy Unknown rash Verified 08/16/20 21:06 turkey [TURKEY] Allergy Unknown RASH Verified 08/16/20 21:06 From INVANZ Allergy Intermediate HIVES Uncoded 07/30/20 16:40 choclate Allergy Unknown rash Uncoded 07/23/19 00:00 Review of Systems Review of Systems: Constitutional : No Weight loss, No Fever, No Chills ENT/Mouth : No sore throat, No Rhinorrhea Eyes: No Eye Pain, No Swelling Cardiovascular : pos Chest Pain, pos SOB, no Dyspnea on Exertion, No Orthopnea, No Edema, No Palpitations Respiratory : No Cough, No Sputum Gastrointestinal : pos Nausea, No Vomiting, No Diarrhea, No abdominal Pain, No Hematochezia, No Melena Genitourinary : No Dysuria, No Urinary Frequency Musculoskeletal : No joint pain, No Myalgias, No Joint Swelling Skin : No Skin Lesions, No rash Neuro : No Weakness, No Numbness, No Dizziness, No Headache Psych : No Anxiety/Panic, No Depression Heme/Lymph: No Bruising, No Lymphadenopathy Endocrine : No Polyuria, No Polydipsia All other systems reviewed and are negative [facility] Past Medical History Medical History (Updated 08/18/20 @ 09:56 by Bhavani Parks DO) Asthma Bipolar 1 disorder Congestive cardiac failure COPD (chronic obstructive pulmonary disease) Diabetes mellitus, type 2 Hyperlipidemia Substance abuse Surgical History (Updated 08/18/20 @ 07:02 by Bhavani Parks DO) History of amputation Hx of BKA Social History Social History (Updated 08/18/20 @ 07:03 by Bhavani Parks DO) Alcohol intake: never Smoking Status: Never smoker Smoked in Last 30 Days: No Use of substances other than those prescribed or required for medical reasons: No Substance Use Type: Marijuana and Opiates Substance Use Type Other:: on methadone denies opiate abuse now Advance Directives: No Advance Directives Information Provided: No Physical Exam Vital Signs and I&O and Narrative: Vital Signs and I&O: Vital Signs Temp 97.9 F 08/18/20 09:04 Pulse 98 08/18/20 09:04 Resp 20 08/18/20 09:04 BP 133/89 08/18/20 09:04 Pulse Ox 99 08/18/20 09:04 Intake & Output 08/17/20 08/18/20 08/18/20 18:59 06:59 18:59 Weight 60.781 kg Body Mass Index 21.6 Appearance: Alert. Oriented X3. No acute distress. Eyes: Pupils equal, round and reactive to light. ENT: Pharynx normal. Neck: Normal inspection. Neck supple. CVS: Normal heart rate and rhythm. Pulses normal. c/o ttp along chest wall Respiratory: No respiratory distress. Breath sounds normal. Abdomen: Soft and nontender. Skin: Skin warm and dry. Normal skin color. Normal skin turgor. Extremities: No lower extremity edema. normal appearance . Neuro: Oriented X 3. No motor deficit. No sensory deficit. Course Course Course Narrative: troponin and BNP at his baseline Reevaluation(s) Reevaluation #1: no hypoxia laying flat lowest sat 94%, needs thoracic surgery given findings since 2108 Medical Decision Making [facility] Narrative Medical decision making narrative: patient with hx of opiate abuse, CHF EF 10%, HPL and DM, months of chest pain post injury per his reports, just seen end of July for CP and he was transfused for anemia, he is here again today with same complaint of months duration seems atypical for ACS and PE given the duration, he is not toxic, pain is very much reproduceable, labs, CT chest for new injury, EKG, dispo per results and findings Lab Data Result diagrams: 08/18/20 07:47 08/18/20 07:47 Labs: Lab Results 08/18/20 08/18/20 08/18/20 Range/Units 07:47 07:47 07:47 WBC 10.2 (4.8-10.8) X10*3/uL RBC 4.02 L (4.60-5.80) X10*6/uL Hgb 10.6 L (14.0-18.0) g/dl Hct 34.4 L (42-52) % MCV 85.6 (80-98) fL MCH 26.4 L (27.0-33.0) pg MCHC 30.8 L (31.0-36.0) g/dl RDW 19.9 H (11.0-16.0) % Plt Count 373 (160-400) X10*3/uL MPV 9.3 L (9.4-12.4) fL Immature Gran % (Auto) 0.3 (0.0-0.4) % Neut % (Auto) 80.1 H (45-73) % Lymph % (Auto) 10.5 L (20-40) % [place] % (Auto) 7.5 (2-11) % Eos % (Auto) 1.3 (0-4) % Baso % (Auto) 0.3 (0-2) % Neut # (Auto) 8.2 (2.0-8.3) X10*3/uL Lymph # (Auto) 1.1 L (1.2-4.9) X10*3/uL [place] # (Auto) 0.8 (0.1-1.2) X10*3/uL Eos # (Auto) 0.1 (0.0-0.4) X10*3/uL Baso # (Auto) 0.0 (0.0-0.2) X10*3/uL Abs Immat Gran (auto) 0.03 (0.00-0.03) X10*3/uL Absolute Nucleated RBC 0.000 (0.0-0.012) X10*3/uL Nucleated RBC % (auto) 0.0 (0.0-0.2) /100WBC Hold Blue Top SEE NOTE Sodium 135 (135-145) mmol/L Potassium 3.6 (3.3-5.1) mmol/l Chloride 97 (96-108) mmol/L Carbon Dioxide 29 (22-29) mmol/L Anion Gap 13 (12-20) BUN 16 (9-16) mg/dL Creatinine 0.93 (0.5-1.4) mg/dL Estim Creat Clear Calc 79.8 Estimated GFR > 60 Random Glucose 172 H (60-115) mg/dL Calcium 9.2 (8.4-10.2) mg/dL Troponin I High Sens (<3.5-35.0) ng/L B-Natriuretic Peptide (<100) pg/mL 08/18/20 08/18/20 Range/Units 07:47 07:47 WBC (4.8-10.8) X10*3/uL RBC (4.60-5.80) X10*6/uL Hgb (14.0-18.0) g/dl Hct (42-52) % MCV (80-98) fL MCH (27.0-33.0) pg MCHC (31.0-36.0) g/dl RDW (11.0-16.0) % Plt Count (160-400) X10*3/uL MPV (9.4-12.4) fL Immature Gran % (Auto) (0.0-0.4) % Neut % (Auto) (45-73) % Lymph % (Auto) (20-40) % [place] % (Auto) (2-11) % Eos % (Auto) (0-4) % Baso % (Auto) (0-2) % Neut # (Auto) (2.0-8.3) X10*3/uL Lymph # (Auto) (1.2-4.9) X10*3/uL [place] # (Auto) (0.1-1.2) X10*3/uL Eos # (Auto) (0.0-0.4) X10*3/uL Baso # (Auto) (0.0-0.2) X10*3/uL Abs Immat Gran (auto) (0.00-0.03) X10*3/uL Absolute Nucleated RBC (0.0-0.012) X10*3/uL Nucleated RBC % (auto) (0.0-0.2) /100WBC Hold Blue Top Sodium (135-145) mmol/L Potassium (3.3-5.1) mmol/l Chloride (96-108) mmol/L Carbon Dioxide (22-29) mmol/L Anion Gap (12-20) BUN (9-16) mg/dL Creatinine (0.5-1.4) mg/dL Estim Creat Clear Calc Estimated GFR Random Glucose (60-115) mg/dL Calcium (8.4-10.2) mg/dL Troponin I High Sens 32.3 (<3.5-35.0) ng/L B-Natriuretic Peptide 3146 H (<100) pg/mL ECG Data Attestation: I personally reviewed and interpreted this ECG as follows: Interpretation: Rate: 101 Rhythm: sinus tachycardia [place]: left Normal P waves. Normal ADELA. nonspecific widening of QRS ST T wave : nonspecific no ARCHANA qTC: prolonged prior studies: no change from prior studies The study has been interpreted contemporaneously by me. . Discharge Plan Discharge Clinical Impression: Chest pain Qualifiers: Chest pain type: precordial pain Qualified Code(s): R07.2 - Precordial pain Patient Disposition: Home, Self-Care Additional Instructions: Enlarged heart and CHF. Severe coronary artery calcification. Abnormal chest wall soft tissue adjacent to the sternum, manubrium and multiple anterior costochondral cartilage and multiple anterior RIBS, right greater than left. This can be seen on old exams going back to September 2019 infectious, inflammatory and neoplastic processes should be considered. Enlarged mediastinal lymph nodes, some partially calcified also unchanged. YOU NEED TO SEE A THORACIC SURGEON AND YOUR DOCTOR Prescriptions: No Action albuterol sulfate 2.5 mg /3 mL (0.083 %) Solution For Nebulization 2.5 mg inhalation Q4H PRN (Reason: Shortness Of Breath Or Wheezing) RF: 0 (DME) lancets Misc MISCELLANEOUS RF: 0 famotidine [Pepcid] 20 mg Tablet 20 mg PO BID RF: 0 (DME) blood-glucose meter [FreeStyle [place] Lite] Kit MISCELLANEOUS RF: 0 (DME) cane Device MISCELLANEOUS RF: 0 (DME) FreeStyle Lite Strips RF: 0 magnesium oxide [MagOx] 400 mg (241.3 mg magnesium) Tablet 400 mg PO DAILY RF: 0 (DME) pen needle, diabetic Needle MISCELLANEOUS RF: 0 methadone 10 mg/mL Concentrate 50 mg PO DAILY RF: 0 albuterol sulfate 90 mcg/actuation Hfa Aerosol Inhaler 2 puff INHALATION Q4H PRN (Reason: Shortness Of Breath) RF: 0 zinc sulfate 110 mg (25 mg zinc) Tablet 220 mg PO DAILY RF: 0 spironolactone 25 mg Tablet 12.5 mg PO DAILY RF: 0 sennosides [senna] 8.6 mg Tablet 8.6 mg PO BEDTIME PRN (Reason: Constipation) RF: 0 Lantus U-100 Insulin 100 unit/mL Solution 12 unit SUBCUT QPM RF: 0 cetirizine 10 mg Tablet 10 mg PO DAILY RF: 0 aspirin 81 mg Tablet,Delayed Release (Dr/Ec) 81 mg PO DAILY RF: 0 insulin lispro 100 unit/mL Solution 5 unit SUBCUT TIDAC RF: 0 polyethylene glycol 3350 [Miralax] 17 gram/dose Powder 17 g PO DAILY RF: 0 carvedilol 6.25 mg Tablet 6.25 mg PO BID RF: 0 atorvastatin 20 mg Tablet 20 mg PO BEDTIME RF: 0 torsemide 20 mg Tablet 20 mg PO DAILY RF: 0 lidocaine [Lidocaine Pain Relief] 4 % Adhesive Patch,Medicated 1 patch TOPICAL DAILY PRN (Reason: Pain) RF: 0 clopidogrel 75 mg Tablet 75 mg PO DAILY RF: 0 tamsulosin 0.4 mg Capsule 0.4 mg PO DAILY RF: 0 fluticasone propion-salmeterol [Advair Diskus] 500-50 mcg/dose Blister With Device 1 inh INHALATION BID RF: 0 losartan 25 mg Tablet 25 mg PO DAILY RF: 0 montelukast 10 mg Tablet 10 mg PO BEDTIME RF: 0 gabapentin 100 mg Capsule 200 mg PO TID RF: 0 ergocalciferol (vitamin D2) 1,250 mcg (50,000 unit) Capsule 1,250 mcg PO QWEEK RF: 0 fluticasone propionate [Flonase Allergy Relief] 50 mcg/actuation [place],Suspension 1 spray INTRANASAL DAILY RF: 0 oxycodone 5 mg Tablet 5 mg PO Q6H PRN (Reason: Pain (Scale Score 1-3)) RF: 0 clotrimazole 1 % Cream 1 applic TOPICAL TID RF: 0 Eucerin Cream 1 applic TOPICAL DAILY PRN (Reason: Dry Skin) RF: 0 Referrals: Regina Skinner MD [Physician] - 2 days (YOU NEED TO SEE A PROVIDER TO SEE WHAT THESE LESIONS ON YOUR CHEST WALL ARE)
[2020-08-18 07:23] VITALS: BP 133/89; PULSE 104; RESP 19; TEMP 36.7
[2020-08-18 07:51] LABS: MANUAL DIFF FLAG NO
[2020-08-18 07:56] LABS: Basophils Percent Auto 0.3 % (0-2); Eosinophils Absolute Auto 0.1 X10*3/uL (0.0-0.4); Eosinophils Percent Auto 1.3 % (0-4); Hematocrit 34.4 % (42-52); Hemoglobin 10.6 g/dl (14.0-18.0); Imm Gran Abs Auto 0.03 X10*3/uL (0.00-0.03); Imm Gran Pct Auto 0.3 % (0.0-0.4); Lymphocytes Absolute Auto 1.1 X10*3/uL (1.2-4.9); Lymphocytes Percent Auto 10.5 % (20-40); Mean Corpuscular HGB Conc 30.8 g/dl (31.0-36.0); Mean Corpuscular Hemoglobin 26.4 pg (27.0-33.0); Mean Corpuscular Volume 85.6 fL (80-98); Mean Platelet Volume 9.3 fL (9.4-12.4); Monocytes Absolute Auto 0.8 X10*3/uL (0.1-1.2); Monocytes Percent Auto 7.5 % (2-11); Neutrophils Absolute Auto 8.2 X10*3/uL (2.0-8.3); Neutrophils Percent Auto 80.1 % (45-73); Platelet Count 373 X10*3/uL (160-400); Red Blood Count 4.02 X10*6/uL (4.60-5.80); Red Cell Distribution Width 19.9 % (11.0-16.0); White Blood Count 10.2 X10*3/uL (4.8-10.8)
[2020-08-18 08:17] LABS: Anion Gap 13 (12-20); Blood Urea Nitrogen 16 mg/dL (9-16); Calcium 9.2 mg/dL (8.4-10.2); Carbon Dioxide 29 mmol/L (22-29); Chloride 97 mmol/L (96-108); Creatinine Clr Calc Pharmacy 79.8; Estimated Glomerular Filt Rate > 60; Glucose Random 172 mg/dL (60-115); Potassium 3.6 mmol/l (3.3-5.1); Sodium 135 mmol/L (135-145)
[2020-08-18 08:24] LABS: B Type Natriuretic Peptide 3146 pg/mL (<100)
[2020-08-18 08:25] LABS: Troponin-I High Sensitivity 32.3 ng/L (<3.5-35.0)
[2020-08-18 09:04] VITALS: BP 133/89; PULSE 98; RESP 20; TEMP 36.6; O2SAT 99
--- NOTE | 2020-08-18 11:23 | PC.NURSE ---
methadone clinic was called prior to knowing t was discharged and no answer from number given by pt and number for facility. pt now being discharged, will have ambulance ride home. place now closed, unable to verify dose at this time
[2020-08-18 11:45] VITALS: BP 132/85; PULSE 100; RESP 20; TEMP 36.6; O2SAT 98
== END 2020-08-18 12:20 | disposition home or self-care (01) ==
PROVIDERS: Emergency Provider Emergency Medicine
DX: R07.2 Precordial pain (principal); E11.9 Type 2 diabetes mellitus without complications; J44.9 Chronic obstructive pulmonary disease, unspecified; F11.90 Opioid use, unspecified, uncomplicated; F12.90 Cannabis use, unspecified, uncomplicated; Z79.899 Other long term (current) drug therapy
CPT/HCPCS: 36415; 71250; 80048; 83880; 84484; 85025; 93005; 93010; 99283; 99284

== ENCOUNTER 2020-08-18 23:06 | Emergency (ER) | payer MEDICAID, SELFPAY ==
[2020-08-18 23:15] VITALS: BP 124/86; PULSE 88; RESP 18; TEMP 37.1; O2SAT 100; BMI 33.7
--- NOTE | 2020-08-18 23:52 | PC.NURSE ---
HOT PACK GIVEN
[2020-08-19 01:27] VITALS: BP 150/101; PULSE 98; RESP 16; O2SAT 96
[2020-08-19 02:00] VITALS: BP 127/79; PULSE 93; RESP 16; O2SAT 98
--- NOTE | 2020-08-19 03:41 | ED_ITS ---
HPI - Extremity Problem General Chief complaint: Extremity Injury, Upper Stated complaint: LT SHOULDER PAIN Time Seen by Provider: 08/19/20 03:31 History of Present Illness HPI Narrative: This is a 50-year-old male who presents with complaints regarding left upper extremity and shoulder discomfort . Patient states that he has been unable to contact the methadone clinic to get his methadone and is seeking help with pain control. Otherwise, when asked about breathing or chest wall pain in comparison to his evaluation within the past 24 hours here in the emergency department he states that the pain is the same. He otherwise has no other acute complaints. Related Data Home Medications Medication Instructions Recorded Confirmed FreeStyle Lite Strips 08/12/20 08/12/20 albuterol sulfate 2 puff INHALATION Q4H PRN 08/12/20 08/12/20 albuterol sulfate 2.5 mg INHALATION Q4H PRN 08/12/20 08/12/20 blood-glucose meter [FreeStyle 08/12/20 08/12/20 [place] Lite] cane 08/12/20 08/12/20 famotidine [Pepcid] 20 mg PO BID 08/12/20 08/12/20 lancets 08/12/20 08/12/20 magnesium oxide [MagOx] 400 mg PO DAILY 08/12/20 08/12/20 methadone 50 mg PO DAILY 08/12/20 08/12/20 pen needle, diabetic 08/12/20 08/12/20 Eucerin 1 applic TOPICAL DAILY PRN 08/14/20 08/14/20 Lantus U-100 Insulin 12 unit SUBCUT QPM 08/14/20 08/14/20 aspirin 81 mg PO DAILY 08/14/20 08/14/20 atorvastatin 20 mg PO BEDTIME 08/14/20 08/14/20 carvedilol 6.25 mg PO BID 08/14/20 08/14/20 cetirizine 10 mg PO DAILY 08/14/20 08/14/20 clopidogrel 75 mg PO DAILY 08/14/20 08/14/20 clotrimazole 1 applic TOPICAL TID 08/14/20 08/14/20 ergocalciferol (vitamin D2) 1,250 mcg PO QWEEK 08/14/20 08/14/20 fluticasone propion-salmeterol 1 inh INHALATION BID 08/14/20 08/14/20 [Advair Diskus] fluticasone propionate [Flonase 1 spray INTRANASAL DAILY 08/14/20 08/14/20 Allergy Relief] gabapentin 200 mg PO TID 08/14/20 08/14/20 insulin lispro 5 unit SUBCUT TIDAC 08/14/20 08/14/20 lidocaine [Lidocaine Pain Relief] 1 patch TOPICAL DAILY PRN 08/14/20 08/14/20 losartan 25 mg PO DAILY 08/14/20 08/14/20 montelukast 10 mg PO BEDTIME 08/14/20 08/14/20 oxycodone 5 mg PO Q6H PRN 08/14/20 08/14/20 polyethylene glycol 3350 [Miralax] 17 g PO DAILY 08/14/20 08/14/20 sennosides [senna] 8.6 mg PO BEDTIME PRN 08/14/20 08/14/20 spironolactone 12.5 mg PO DAILY 08/14/20 08/14/20 tamsulosin 0.4 mg PO DAILY 08/14/20 08/14/20 torsemide 20 mg PO DAILY 08/14/20 08/14/20 zinc sulfate 220 mg PO DAILY 08/14/20 08/14/20 Allergies Allergy/AdvReac Type Severity Reaction Status Date / Time vancomycin [VANCOMYCIN] Allergy Intermediate HIVES Verified 08/16/20 21:06 Chocolate Allergy Unknown Rash Verified 08/16/20 21:06 ciprofloxacin [From CIPRO] Allergy Unknown SWELLING Verified 08/16/20 21:06 ertapenem Allergy Unknown Hives Verified 08/16/20 21:06 hydrocortisone [Cipro HC] Allergy Unknown Unknown Verified 08/16/20 21:06 sulfamethoxazole Allergy Unknown rash Verified 08/16/20 21:06 [From BACTRIM] trimethoprim [From BACTRIM] Allergy Unknown rash Verified 08/16/20 21:06 turkey [TURKEY] Allergy Unknown RASH Verified 08/16/20 21:06 From INVANZ Allergy Intermediate HIVES Uncoded 07/30/20 16:40 choclate Allergy Unknown rash Uncoded 07/23/19 00:00 Review of Systems Review of Systems: Pertinent positives and negatives as stated in the HPI. GEN: no fevers, chills, fatigue HEENT: no nasal congestion, sore throat, ear pain NEURO: no headache, dizziness, focal weakness PULM: shortness of breath CV: no chest pain, palpitations, LE edema ABD: no abdominal pain, nausea, vomiting, diarrhea : no dysuria, urgency, frequency SKIN: no rash ROS otherwise negative x 10 PMFSH Past Medical History Source: nursing notes reviewed Medical History Asthma Bipolar 1 disorder Congestive cardiac failure COPD (chronic obstructive pulmonary disease) Diabetes mellitus, type 2 Hyperlipidemia Substance abuse Surgical History History of amputation Hx of BKA Social History Social History Alcohol intake: never Smoking Status: Never smoker Use of substances other than those prescribed or required for medical reasons: No Substance Use Type: Marijuana and Opiates Advance Directives: No Advance Directives Information Provided: No Physical Exam Vital Signs and I&O and Narrative: Vital Signs and I&O: Vital Signs Temp 97.6 F 08/19/20 04:15 Pulse 103 H 08/19/20 04:15 Resp 16 08/19/20 04:15 BP 140/96 H 08/19/20 04:15 Pulse Ox 98 08/19/20 04:15 Intake & Output 08/18/20 08/18/20 08/19/20 06:59 18:59 06:59 Weight 63.503 kg Body Mass Index 33.7 VITAL SIGNS: Reviewed. GENERAL: Well developed, well nourished, in no acute distress. HEAD: Normocephalic/atraumatic EYES: PERRLA, EOMI intact without pain, no nystagmus/pallor/icterus noted EARS: Ext canals without abnormality, TMs non-bulging and non-erythematous NOSE: Nares patent bilateral OROPHARYNX: no oral lesions noted, posterior pharynx clear and non-erythematous without noted tonsillar enlargement/erythema/exudates NECK: Supple, no adenopathy LUNGS: Normal breath sounds. No adventitious sounds or accessory muscle use. SpO2<98> CHEST WALL: reproducible pain on palpation of chest wall CARDIOVASCULAR: Regular rate and rhythm without noted murmurs, no JVD or lower extremity edema. ABDOMEN: Soft, non-tender, non-distended with bowel sounds. No rigidity. No guarding. No palpable masses or hernias noted MUSCULOSKELETAL: No tenderness, deformities, or effusions noted on gross inspection;LUE: full range of motion noted at the shoulder /elbow without evidence of erythema or edema and palpable pulses present at the distal extremity. EXTREMITIES: No cyanosis, clubbing or edema. SKIN: Inspection of the skin reveals no rashes, ulcerations, jaundice, pallor, or petechiae. NEUROLOGIC: Alert and oriented x 3. Strength and sensation to light touch were grossly intact x 4. Course Course Course Narrative: This is a 50-year-old male with history and clinical presentation consistent with chronic arm and chest wall discomfort that was improved with analgesics and review of documentation from his visit within the past 24 hours reiterated to the patient, especially regarding the chest mass. Otherwise, as there were no changes in symptoms from presentation earlier in the day. Patient was discharged to home with strict instructions to follow-up with his primary care provider as well as a thoracic surgeon for further evaluation of the chest wall mass. He acknowledged understanding and the instructions were provided in [place]oc[place] as well on his discharge paperwork Discharge Plan Discharge Clinical Impression: Chronic shoulder pain Qualifiers: Laterality: left Qualified Code(s): M25.512 - Pain in left shoulder Patient Disposition: Home, Self-Care Instructions: Shoulder Pain (ED) Additional Instructions: 1. Reanude todos los medicamentos caseros seg?n lo prescrito. 2. Hable sobre la masa tor?cica con manley proveedor de atenci?n primaria sobre la que se le inform? el 04/22. El paciente y / o la jay reconocen que comprenden los resultados (seg?n corresponda), el diagn?stico, el plan de tratamiento, la necesidad de seguimiento y los s?ntomas que deber?an impulsar el regreso a la jarocho de emergencias. Prescriptions: No Action albuterol sulfate 2.5 mg /3 mL (0.083 %) Solution For Nebulization 2.5 mg inhalation Q4H PRN (Reason: Shortness Of Breath Or Wheezing) RF: 0 (DME) lancets Misc MISCELLANEOUS RF: 0 famotidine [Pepcid] 20 mg Tablet 20 mg PO BID RF: 0 (DME) blood-glucose meter [FreeStyle [place] Lite] Kit MISCELLANEOUS RF: 0 (DME) cane Device MISCELLANEOUS RF: 0 (DME) FreeStyle Lite Strips RF: 0 magnesium oxide [MagOx] 400 mg (241.3 mg magnesium) Tablet 400 mg PO DAILY RF: 0 (DME) pen needle, diabetic Needle MISCELLANEOUS RF: 0 methadone 10 mg/mL Concentrate 50 mg PO DAILY RF: 0 albuterol sulfate 90 mcg/actuation Hfa Aerosol Inhaler 2 puff INHALATION Q4H PRN (Reason: Shortness Of Breath) RF: 0 zinc sulfate 110 mg (25 mg zinc) Tablet 220 mg PO DAILY RF: 0 spironolactone 25 mg Tablet 12.5 mg PO DAILY RF: 0 sennosides [senna] 8.6 mg Tablet 8.6 mg PO BEDTIME PRN (Reason: Constipation) RF: 0 Lantus U-100 Insulin 100 unit/mL Solution 12 unit SUBCUT QPM RF: 0 cetirizine 10 mg Tablet 10 mg PO DAILY RF: 0 aspirin 81 mg Tablet,Delayed Release (Dr/Ec) 81 mg PO DAILY RF: 0 insulin lispro 100 unit/mL Solution 5 unit SUBCUT TIDAC RF: 0 polyethylene glycol 3350 [Miralax] 17 gram/dose Powder 17 g PO DAILY RF: 0 carvedilol 6.25 mg Tablet 6.25 mg PO BID RF: 0 atorvastatin 20 mg Tablet 20 mg PO BEDTIME RF: 0 torsemide 20 mg Tablet 20 mg PO DAILY RF: 0 lidocaine [Lidocaine Pain Relief] 4 % Adhesive Patch,Medicated 1 patch TOPICAL DAILY PRN (Reason: Pain) RF: 0 clopidogrel 75 mg Tablet 75 mg PO DAILY RF: 0 tamsulosin 0.4 mg Capsule 0.4 mg PO DAILY RF: 0 fluticasone propion-salmeterol [Advair Diskus] 500-50 mcg/dose Blister With Device 1 inh INHALATION BID RF: 0 losartan 25 mg Tablet 25 mg PO DAILY RF: 0 montelukast 10 mg Tablet 10 mg PO BEDTIME RF: 0 gabapentin 100 mg Capsule 200 mg PO TID RF: 0 ergocalciferol (vitamin D2) 1,250 mcg (50,000 unit) Capsule 1,250 mcg PO QWEEK RF: 0 fluticasone propionate [Flonase Allergy Relief] 50 mcg/actuation [place],Suspension 1 spray INTRANASAL DAILY RF: 0 oxycodone 5 mg Tablet 5 mg PO Q6H PRN (Reason: Pain (Scale Score 1-3)) RF: 0 clotrimazole 1 % Cream 1 applic TOPICAL TID RF: 0 Eucerin Cream 1 applic TOPICAL DAILY PRN (Reason: Dry Skin) RF: 0 Referrals: Regina Skinner MD [Physician] - 2 days (Follow-up for new findings of thoracic mass) Physician,Unknown [Primary Care Provider] - 2 days Interventions: ED Discharge Assessment Last Done: 08/19/20 04:57
[2020-08-19] MEDS: Acetaminophen 325 MG TABLET 975 MG PO (03:42)
[2020-08-19 04:15] VITALS: BP 140/96; PULSE 103; RESP 16; TEMP 36.4; O2SAT 98
== END 2020-08-19 05:41 | disposition home or self-care (01) ==
PROVIDERS: Emergency Provider Student in an Organized Health Care Education/Training Program
DX: M25.512 Pain in left shoulder (principal); F12.90 Cannabis use, unspecified, uncomplicated; F11.90 Opioid use, unspecified, uncomplicated; Z79.899 Other long term (current) drug therapy
CPT/HCPCS: 99284

== ENCOUNTER 2020-08-24 18:39 | Emergency (ER) | payer MEDICAID, SELFPAY ==
--- NOTE | 2020-08-24 | ECG_ITS ---
Test Reason : CHEST PAIN Blood Pressure : / mmHG Vent. Rate : 068 BPM Atrial Rate : 068 BPM P-R Int : 180 ms QRS Dur : 112 ms QT Int : 464 ms P-R-T Axes : 048 -25 158 degrees QTc Int : 493 ms Normal sinus rhythm Left axis deviation Possible Left atrial enlargement ST & T wave abnormality, consider lateral ischemia Prolonged QT Abnormal ECG When compared with ECG of 24-AUG-2020 18:41, No significant change was found Referred By: Generic ED Physician Electronically Signed By:CRISTIAN SU MD
--- NOTE | 2020-08-24 18:41 | ECG_ITS ---
Test Reason : CP Blood Pressure : / mmHG Vent. Rate : 073 BPM Atrial Rate : 073 BPM P-R Int : 182 ms QRS Dur : 112 ms QT Int : 456 ms P-R-T Axes : 044 -25 148 degrees QTc Int : 502 ms Normal sinus rhythm T wave abnormality, consider lateral ischemia Intra-ventricular conduction delay Left anterior fascicular block Abnormal ECG When compared with ECG of 18-AUG-2020 07:16, Heart rate has decreased Referred By: Terence Bermudez Electronically Signed By:CRISTIAN SU MD
[2020-08-24 18:50] VITALS: BP 128/81; BP 131/70; PULSE 74; RESP 16; TEMP 37.3; O2SAT 92; BMI 21.6
[2020-08-24 19:28] VITALS: BP 103/70; PULSE 67; RESP 15; O2SAT 100
--- NOTE | 2020-08-24 19:46 | ED_ITS ---
HPI - Chest Pain General Chief Complaint: Chest Pain Stated Complaint: Chest pain Time Seen by Provider: 08/24/20 19:09 Source: patient Mode of arrival: EMS Limitations: no limitations History of Present Illness HPI narrative: patient with chronic chest wall pain for last few months been here multiple times had a CT scan done last week which showed slight inflammation of the chest wall. MD complaint: chest pain Timing of current episode: constant and daily Prior episodes: Yes Onset: during rest Pain radiation: none Severity: mild Quality: sharp Relieving factors: movement Related Data Home Medications Medication Instructions Recorded Confirmed FreeStyle Lite Strips 08/12/20 08/12/20 albuterol sulfate 2 puff INHALATION Q4H PRN 08/12/20 08/12/20 albuterol sulfate 2.5 mg INHALATION Q4H PRN 08/12/20 08/12/20 blood-glucose meter [FreeStyle 08/12/20 08/12/20 [place] Lite] cane 08/12/20 08/12/20 famotidine [Pepcid] 20 mg PO BID 08/12/20 08/12/20 lancets 08/12/20 08/12/20 magnesium oxide [MagOx] 400 mg PO DAILY 08/12/20 08/12/20 methadone 50 mg PO DAILY 08/12/20 08/12/20 pen needle, diabetic 08/12/20 08/12/20 Eucerin 1 applic TOPICAL DAILY PRN 08/14/20 08/14/20 Lantus U-100 Insulin 12 unit SUBCUT QPM 08/14/20 08/14/20 aspirin 81 mg PO DAILY 08/14/20 08/14/20 atorvastatin 20 mg PO BEDTIME 08/14/20 08/14/20 carvedilol 6.25 mg PO BID 08/14/20 08/14/20 cetirizine 10 mg PO DAILY 08/14/20 08/14/20 clopidogrel 75 mg PO DAILY 08/14/20 08/14/20 clotrimazole 1 applic TOPICAL TID 08/14/20 08/14/20 ergocalciferol (vitamin D2) 1,250 mcg PO QWEEK 08/14/20 08/14/20 fluticasone propion-salmeterol 1 inh INHALATION BID 08/14/20 08/14/20 [Advair Diskus] fluticasone propionate [Flonase 1 spray INTRANASAL DAILY 08/14/20 08/14/20 Allergy Relief] gabapentin 200 mg PO TID 08/14/20 08/14/20 insulin lispro 5 unit SUBCUT TIDAC 08/14/20 08/14/20 lidocaine [Lidocaine Pain Relief] 1 patch TOPICAL DAILY PRN 08/14/20 08/14/20 losartan 25 mg PO DAILY 08/14/20 08/14/20 montelukast 10 mg PO BEDTIME 08/14/20 08/14/20 oxycodone 5 mg PO Q6H PRN 08/14/20 08/14/20 polyethylene glycol 3350 [Miralax] 17 g PO DAILY 08/14/20 08/14/20 sennosides [senna] 8.6 mg PO BEDTIME PRN 08/14/20 08/14/20 spironolactone 12.5 mg PO DAILY 08/14/20 08/14/20 tamsulosin 0.4 mg PO DAILY 08/14/20 08/14/20 torsemide 20 mg PO DAILY 08/14/20 08/14/20 zinc sulfate 220 mg PO DAILY 08/14/20 08/14/20 Allergies Allergy/AdvReac Type Severity Reaction Status Date / Time vancomycin [VANCOMYCIN] Allergy Intermediate HIVES Verified 08/16/20 21:06 Chocolate Allergy Unknown Rash Verified 08/16/20 21:06 ciprofloxacin [From CIPRO] Allergy Unknown SWELLING Verified 08/16/20 21:06 ertapenem Allergy Unknown Hives Verified 08/16/20 21:06 hydrocortisone [Cipro HC] Allergy Unknown Unknown Verified 08/16/20 21:06 sulfamethoxazole Allergy Unknown rash Verified 08/16/20 21:06 [From BACTRIM] trimethoprim [From BACTRIM] Allergy Unknown rash Verified 08/16/20 21:06 turkey [TURKEY] Allergy Unknown RASH Verified 08/16/20 21:06 From INVANZ Allergy Intermediate HIVES Uncoded 07/30/20 16:40 choclate Allergy Unknown rash Uncoded 07/23/19 00:00 Review of Systems Review of Systems: REVIEW OF SYSTEMS: Pertinent positives and negatives are stated above in the history. GEN: no fevers, chills, fatigue HEENT: no nasal congestion, sore throat, ear pain NEURO: no headache, dizziness, focal weakness PULM: no cough, shortness of breath CV: , palpitations, LE edema ABD: no abdominal pain, nausea, vomiting, diarrhea : no dysuria, urgency, frequency SKIN: no rash ROS otherwise negative x 10 PMFSH Past Medical History Medical History Acute on chronic anemia Acute on chronic combined systolic and diastolic congestive heart failure Asthma Bipolar 1 disorder Chest pain Congestive cardiac failure COPD (chronic obstructive pulmonary disease) Diabetes mellitus, type 2 Hyperlipidemia Substance abuse Surgical History History of amputation Hx of BKA Social History Social History Alcohol intake: never Smoking Status: Never smoker Smoked in Last 30 Days: No Use of substances other than those prescribed or required for medical reasons: Yes Substance Use Type: Marijuana Substance Use Frequency: Daily Last Used Substance: Days (ago) Any prior treatment program specific to substance use: Yes (methadone) Advance Directives: No Advance Directives Information Provided: Yes Physical Exam Vital Signs: Vital Signs: Vital Signs Temp Pulse Resp BP Pulse Ox 08/24/20 19:28 67 15 103/70 100 08/24/20 18:50 99.1 F 74 16 128/81 92 Body Mass Index 21.6 Appearance: Alert. Oriented X3. No acute distress. Eyes: Pupils equal, round and reactive to light. ENT: Pharynx normal. Neck: Normal inspection. Neck supple. CVS: Normal heart rate and rhythm. Pulses normal. Respiratory: No respiratory distress. Breath sounds normal. tender anterior chest wall right 3rd 4th costochondral area no skin change Abdomen: Soft and nontender. Skin: Skin warm and dry. Normal skin color. Normal skin turgor. Extremities: No lower extremity edema. Good range of movement Neuro: Oriented X 3. No motor deficit. No sensory deficit. Course Course Course Narrative: patient with chronic chest wall pain had a recent CT scan which showed subtle inflammation discharge patient home on pain medication oxycodone EKG showed no acute changes MDM - Chest Pain ECG Data ECG #1: Attestation: I personally reviewed and interpreted this ECG as follows: ECG interpretation date: 08/24/20 ECG interpretation time: 18:41 Prior ECG tracings: available for review Interpretation: EKGRate: 73 Rhythm: sinus [place]:n Normal P waves. Normal [place]. Normal QRS complex. ST T wave : nonspecific no change from previous EKGs Discharge Plan Discharge Prescriptions: No Action albuterol sulfate 2.5 mg /3 mL (0.083 %) Solution For Nebulization 2.5 mg inhalation Q4H PRN (Reason: Shortness Of Breath Or Wheezing) RF: 0 (DME) lancets Misc MISCELLANEOUS RF: 0 famotidine [Pepcid] 20 mg Tablet 20 mg PO BID RF: 0 (DME) blood-glucose meter [FreeStyle [place] Lite] Kit MISCELLANEOUS RF: 0 (DME) cane Device MISCELLANEOUS RF: 0 (DME) FreeStyle Lite Strips RF: 0 magnesium oxide [MagOx] 400 mg (241.3 mg magnesium) Tablet 400 mg PO DAILY RF: 0 (DME) pen needle, diabetic Needle MISCELLANEOUS RF: 0 methadone 10 mg/mL Concentrate 50 mg PO DAILY RF: 0 albuterol sulfate 90 mcg/actuation Hfa Aerosol Inhaler 2 puff INHALATION Q4H PRN (Reason: Shortness Of Breath) RF: 0 zinc sulfate 110 mg (25 mg zinc) Tablet 220 mg PO DAILY RF: 0 spironolactone 25 mg Tablet 12.5 mg PO DAILY RF: 0 sennosides [senna] 8.6 mg Tablet 8.6 mg PO BEDTIME PRN (Reason: Constipation) RF: 0 Lantus U-100 Insulin 100 unit/mL Solution 12 unit SUBCUT QPM RF: 0 cetirizine 10 mg Tablet 10 mg PO DAILY RF: 0 aspirin 81 mg Tablet,Delayed Release (Dr/Ec) 81 mg PO DAILY RF: 0 insulin lispro 100 unit/mL Solution 5 unit SUBCUT TIDAC RF: 0 polyethylene glycol 3350 [Miralax] 17 gram/dose Powder 17 g PO DAILY RF: 0 carvedilol 6.25 mg Tablet 6.25 mg PO BID RF: 0 atorvastatin 20 mg Tablet 20 mg PO BEDTIME RF: 0 torsemide 20 mg Tablet 20 mg PO DAILY RF: 0 lidocaine [Lidocaine Pain Relief] 4 % Adhesive Patch,Medicated 1 patch TOPICAL DAILY PRN (Reason: Pain) RF: 0 clopidogrel 75 mg Tablet 75 mg PO DAILY RF: 0 tamsulosin 0.4 mg Capsule 0.4 mg PO DAILY RF: 0 fluticasone propion-salmeterol [Advair Diskus] 500-50 mcg/dose Blister With Device 1 inh INHALATION BID RF: 0 losartan 25 mg Tablet 25 mg PO DAILY RF: 0 montelukast 10 mg Tablet 10 mg PO BEDTIME RF: 0 gabapentin 100 mg Capsule 200 mg PO TID RF: 0 ergocalciferol (vitamin D2) 1,250 mcg (50,000 unit) Capsule 1,250 mcg PO QWEEK RF: 0 fluticasone propionate [Flonase Allergy Relief] 50 mcg/actuation [place],Suspension 1 spray INTRANASAL DAILY RF: 0 oxycodone 5 mg Tablet 5 mg PO Q6H PRN (Reason: Pain (Scale Score 1-3)) RF: 0 clotrimazole 1 % Cream 1 applic TOPICAL TID RF: 0 Eucerin Cream 1 applic TOPICAL DAILY PRN (Reason: Dry Skin) RF: 0
[2020-08-24 20:00] VITALS: BP 104/74; PULSE 68; RESP 15; O2SAT 100
[2020-08-24] MEDS: oxyCODONE HCl Immed Release 5 MG TABLET 10 MG PO (20:00)
== END 2020-08-24 22:23 | disposition home or self-care (01) ==
PROVIDERS: Emergency Provider Internal Medicine; PCP Family Medicine
DX: M94.0 Chondrocostal junction syndrome [Tietze] (principal); E11.9 Type 2 diabetes mellitus without complications; I50.9 Heart failure, unspecified; Z79.899 Other long term (current) drug therapy
CPT/HCPCS: 93005; 96374; 99284; J2270

== ENCOUNTER 2020-08-25 23:01 | Emergency (ER) | payer MEDICAID, SELFPAY ==
--- NOTE | 2020-08-25 23:20 | ECG_ITS ---
Test Reason : BACK PAIN Blood Pressure : / mmHG Vent. Rate : 098 BPM Atrial Rate : 098 BPM P-R Int : 168 ms QRS Dur : 106 ms QT Int : 376 ms P-R-T Axes : 032 -25 131 degrees QTc Int : 480 ms Normal sinus rhythm ST & T wave abnormality, consider lateral ischemia Intra-ventricular conduction delay Abnormal ECG When compared with ECG of 24-AUG-2020 19:26, No significant changes seen Referred By: Nikkie Mcmahan Electronically Signed By:CRISTIAN SU MD
[2020-08-25 23:41] VITALS: BP 149/99; PULSE 89; RESP 18; TEMP 36.1; O2SAT 97; BMI 48.0
[2020-08-26 01:52] LABS: Glucose, Whole Blood 129 mg/dL (60-115)
[2020-08-26 03:00] VITALS: BP 146/95; PULSE 93; RESP 16; O2SAT 97
--- NOTE | 2020-08-26 03:27 | XR_ITS ---
EXAMINATION: XR CHEST CLINICAL INFORMATION: Shortness of breath COMPARISON: 08/18/2020 TECHNIQUE: Frontal view of the chest was obtained. FINDINGS: There is elevation of the right hemidiaphragm with adjacent basilar opacity. Subsegmental atelectasis noted adjacent to the right minor fissure. Left lung is well-expanded without focal consolidation. No evidence of pneumothorax. Suggestion of trace right pleural effusion. Central vasculature and interstitium remain mildly prominent. Cardiac silhouette remains mildly enlarged, similar to prior. No acute osseous findings are seen. IMPRESSION: Increasing right basilar opacity which may reflect atelectasis in the setting of elevated hemidiaphragm. Possible trace right pleural effusion. Persistent central vascular and interstitial prominence suggesting mild interstitial edema.
--- NOTE | 2020-08-26 03:29 | ED.GENADULT ---
HPI - General Adult General Chief complaint: Back Pain/Injury Stated complaint: Abd pain Time Seen by Provider: 08/26/20 03:08 Source: patient Mode of arrival: EMS Limitations: no limitations History of Present Illness HPI narrative: Patient comes to emergency room complaining shortness of breath. Initially patient complained of abdominal pain, then he stated that he had back pain, when I spoke to the patient he stated that he is here because he has been having shortness of breath intermittently since this afternoon. Related Data Home Medications Medication Instructions Recorded Confirmed FreeStyle Lite Strips 08/12/20 08/12/20 albuterol sulfate 2 puff INHALATION Q4H PRN 08/12/20 08/12/20 albuterol sulfate 2.5 mg INHALATION Q4H PRN 08/12/20 08/12/20 blood-glucose meter [FreeStyle 08/12/20 08/12/20 [place] Lite] cane 08/12/20 08/12/20 famotidine [Pepcid] 20 mg PO BID 08/12/20 08/12/20 lancets 08/12/20 08/12/20 magnesium oxide [MagOx] 400 mg PO DAILY 08/12/20 08/12/20 methadone 50 mg PO DAILY 08/12/20 08/12/20 pen needle, diabetic 08/12/20 08/12/20 Eucerin 1 applic TOPICAL DAILY PRN 08/14/20 08/14/20 Lantus U-100 Insulin 12 unit SUBCUT QPM 08/14/20 08/14/20 aspirin 81 mg PO DAILY 08/14/20 08/14/20 atorvastatin 20 mg PO BEDTIME 08/14/20 08/14/20 carvedilol 6.25 mg PO BID 08/14/20 08/14/20 cetirizine 10 mg PO DAILY 08/14/20 08/14/20 clopidogrel 75 mg PO DAILY 08/14/20 08/14/20 clotrimazole 1 applic TOPICAL TID 08/14/20 08/14/20 ergocalciferol (vitamin D2) 1,250 mcg PO QWEEK 08/14/20 08/14/20 fluticasone propion-salmeterol 1 inh INHALATION BID 08/14/20 08/14/20 [Advair Diskus] fluticasone propionate [Flonase 1 spray INTRANASAL DAILY 08/14/20 08/14/20 Allergy Relief] gabapentin 200 mg PO TID 08/14/20 08/14/20 insulin lispro 5 unit SUBCUT TIDAC 08/14/20 08/14/20 lidocaine [Lidocaine Pain Relief] 1 patch TOPICAL DAILY PRN 08/14/20 08/14/20 losartan 25 mg PO DAILY 08/14/20 08/14/20 montelukast 10 mg PO BEDTIME 08/14/20 08/14/20 oxycodone 5 mg PO Q6H PRN 08/14/20 08/14/20 polyethylene glycol 3350 [Miralax] 17 g PO DAILY 08/14/20 08/14/20 sennosides [senna] 8.6 mg PO BEDTIME PRN 08/14/20 08/14/20 spironolactone 12.5 mg PO DAILY 08/14/20 08/14/20 tamsulosin 0.4 mg PO DAILY 08/14/20 08/14/20 torsemide 20 mg PO DAILY 08/14/20 08/14/20 zinc sulfate 220 mg PO DAILY 08/14/20 08/14/20 Previous Rx's Medication Instructions Recorded oxycodone 5 mg PO Q6H PRN #20 tab 08/24/20 Allergies Allergy/AdvReac Type Severity Reaction Status Date / Time vancomycin [VANCOMYCIN] Allergy Intermediate HIVES Verified 08/16/20 21:06 Chocolate Allergy Unknown Rash Verified 08/16/20 21:06 ciprofloxacin [From CIPRO] Allergy Unknown SWELLING Verified 08/16/20 21:06 ertapenem Allergy Unknown Hives Verified 08/16/20 21:06 hydrocortisone [Cipro HC] Allergy Unknown Unknown Verified 08/16/20 21:06 sulfamethoxazole Allergy Unknown rash Verified 08/16/20 21:06 [From BACTRIM] trimethoprim [From BACTRIM] Allergy Unknown rash Verified 08/16/20 21:06 turkey [TURKEY] Allergy Unknown RASH Verified 08/16/20 21:06 From INVANZ Allergy Intermediate HIVES Uncoded 07/30/20 16:40 choclate Allergy Unknown rash Uncoded 07/23/19 00:00 Review of Systems Review of Systems: Constitutional : No Weight loss, No Fever, No Chills, No Night Sweats, No Fatigue, No Malaise ENT/Mouth : No Hearing loss, No Ear Pain, No Nasal Congestion, No Sinus Pain, No Hoarseness, No sore throat, No Rhinorrhea, No Swallowing Difficulty Eyes: No Eye Pain, No Swelling, No Redness, No Foreign Body, No Discharge, No Vision Changes Cardiovascular : No Chest Pain, No SOB, No Dyspnea on Exertion, No Orthopnea, No Edema, No Palpitations Respiratory : No Cough, No Sputum, No Wheezing, No Smoke Exposure, complaining of dyspnea Gastrointestinal : No Nausea, No Vomiting, No Diarrhea, No Constipation, No abdominal Pain, No Hematochezia, No Melena Genitourinary : no irregular bleeding, No Dysuria, No Urinary Frequency, No Hematuria, No Urinary Incontinence, No Urgency, No Flank Pain, No Urinary Flow Changes, No Hesitancy Musculoskeletal : No joint pain, No Myalgias, No Joint Swelling Skin : No Skin Lesions, No rash Neuro : No Weakness, No Numbness, No Paresthesias, No Loss of Consciousness, No Dizziness, No Headache Psych : No Anxiety/Panic, No Depression, No SI/HI/AH/VH, No Social Issues, Heme/Lymph: No Bruising, No Bleeding,No Lymphadenopathy Endocrine : No Polyuria, No Polydipsia, No Temperature Intolerance PMFSH Past Medical History Medical History Acute on chronic anemia Acute on chronic combined systolic and diastolic congestive heart failure Asthma Bipolar 1 disorder Chest pain Congestive cardiac failure COPD (chronic obstructive pulmonary disease) Diabetes mellitus, type 2 Hyperlipidemia Substance abuse Surgical History History of amputation History of laminectomy History of transurethral resection of prostate Hx of BKA Family History Family History (Updated 08/25/20 @ 08:48 by BASSAM Mayorga) Father Chronic mental illness Hypertension Asthma Stroke Mother Asthma Diabetes Coronary artery disease Social History Social History Alcohol intake: never Smoking Status: Smoker, status unknown Smoked in Last 30 Days: No Use of substances other than those prescribed or required for medical reasons: Refusing to respond Substance Use Type: Marijuana Advance Directives: No Advance Directives Information Provided: No Physical Exam Vital Signs: Vital Signs: Vital Signs Temp Pulse Resp BP Pulse Ox 08/26/20 06:00 98.0 F 94 16 148/92 H 95 08/26/20 04:55 76 16 145/86 H 08/26/20 03:00 93 16 146/95 H 97 08/25/20 23:41 96.9 F 89 18 149/99 H 97 Body Mass Index 48.0 Appearance: Alert. Oriented X3. No acute distress. Eyes: Pupils equal, round and reactive to light. ENT: Pharynx normal. Neck: Normal inspection. Neck supple. No lymph nodes noted. No crepitus CVS: Normal heart rate and rhythm. Pulses normal. Normal S1 and S2 Respiratory: No respiratory distress. mild bilateral Wheezing. Abdomen: Soft and nontender. No rigidity. No distention. good BS x4 Skin: Skin warm and dry. Normal skin color. Normal skin turgor. Extremities: amputation, No lower extremity edema. No Lacerations. No Rash Neuro: Oriented X 3. No motor deficit. No sensory deficit. Moving all extermities. No slurred speech. Course Reevaluation(s) Reevaluation #1: throughout the ER stay, patient requested morphine multiple times, however patient was very somnolent, falling asleep while talking. I discussed with the patient that his dimer is elevated, it is usually elevated, however because he has new onset shortness of breath, I recommended a CT scan for PE protocol. Patient declined, patient states that he does not want a CT scan and wants coffee with sugar, food. Medical Decision Making MDM Narrative Medical decision making narrative: As mentioned above, patient declined chest CT for PE protocol. Patient's D-dimer and BNP and troponin are chronically elevated, at baseline. Lab Data Result diagrams: 08/26/20 03:49 08/26/20 03:49 Labs: Lab Results 08/26/20 08/26/20 08/26/20 Range/Units 01:47 03:49 03:49 WBC 7.3 (4.8-10.8) X10*3/uL RBC 4.22 L (4.60-5.80) X10*6/uL Hgb 11.3 L (14.0-18.0) g/dl Hct 36.5 L (42-52) % MCV 86.5 (80-98) fL MCH 26.8 L (27.0-33.0) pg MCHC 31.0 (31.0-36.0) g/dl RDW 19.1 H (11.0-16.0) % Plt Count 391 (160-400) X10*3/uL MPV 9.4 (9.4-12.4) fL Immature Gran % (Auto) 0.3 (0.0-0.4) % Neut % (Auto) 74.0 H (45-73) % Lymph % (Auto) 14.6 L (20-40) % Gray % (Auto) 10.1 (2-11) % Eos % (Auto) 0.6 (0-4) % Baso % (Auto) 0.4 (0-2) % Lymph # (Auto) 1.1 L (1.2-4.9) X10*3/uL Gray # (Auto) 0.7 (0.1-1.2) X10*3/uL Eos # (Auto) 0.0 (0.0-0.4) X10*3/uL Baso # (Auto) 0.0 (0.0-0.2) X10*3/uL Abs Immat Gran (auto) 0.02 (0.00-0.03) X10*3/uL Absolute Neuts (auto) 5.4 (2.0-8.3) X10*3/uL Absolute Nucleated RBC 0.000 (0.0-0.012) X10*3/uL Nucleated RBC % (auto) 0.0 (0.0-0.2) /100WBC D-Dimer NG/ML Sodium (135-145) mmol/L Potassium (3.3-5.1) mmol/l Chloride (96-108) mmol/L Carbon Dioxide (22-29) mmol/L Anion Gap (12-20) BUN (9-16) mg/dL Creatinine (0.5-1.4) mg/dL Estim Creat Clear Calc Estimated GFR POC Glucose 129 H (60-115) mg/dL Random Glucose (60-115) mg/dL Calcium (8.4-10.2) mg/dL Troponin I High Sens 17.8 (<3.5-35.0) ng/L B-Natriuretic Peptide (<100) pg/mL 08/26/20 08/26/2008/26/20 Range/Units 03:49 03:49 03:49 WBC (4.8-10.8) X10*3/uL RBC (4.60-5.80) X10*6/uL Hgb (14.0-18.0) g/dl Hct (42-52) % MCV (80-98) fL MCH (27.0-33.0) pg MCHC (31.0-36.0) g/dl RDW (11.0-16.0) % Plt Count (160-400) X10*3/uL MPV (9.4-12.4) fL Immature Gran % (Auto) (0.0-0.4) % Neut % (Auto) (45-73) % Lymph % (Auto) (20-40) % Gray % (Auto) (2-11) % Eos % (Auto) (0-4) % Baso % (Auto) (0-2) % Lymph # (Auto) (1.2-4.9) X10*3/uL Gray # (Auto) (0.1-1.2) X10*3/uL Eos # (Auto) (0.0-0.4) X10*3/uL Baso # (Auto) (0.0-0.2) X10*3/uL Abs Immat Gran (auto) (0.00-0.03) X10*3/uL Absolute Neuts (auto) (2.0-8.3) X10*3/uL Absolute Nucleated RBC (0.0-0.012) X10*3/uL Nucleated RBC % (auto) (0.0-0.2) /100WBC D-Dimer 2100 NG/ML Sodium 134 L (135-145) mmol/L Potassium 4.0 (3.3-5.1) mmol/l Chloride 98 (96-108) mmol/L Carbon Dioxide 22 (22-29) mmol/L Anion Gap 18 (12-20) BUN 17 H (9-16) mg/dL Creatinine 0.78 (0.5-1.4) mg/dL Estim Creat Clear Calc 144.5 Estimated GFR > 60 POC Glucose (60-115) mg/dL Random Glucose 142 H (60-115) mg/dL Calcium 9.3 (8.4-10.2) mg/dL Troponin I High Sens (<3.5-35.0) ng/L B-Natriuretic Peptide 3735 H (<100) pg/mL 08/26/20 Range/Units 06:19 WBC (4.8-10.8) X10*3/uL RBC (4.60-5.80) X10*6/uL Hgb (14.0-18.0) g/dl Hct (42-52) % MCV (80-98) fL MCH (27.0-33.0) pg MCHC (31.0-36.0) g/dl RDW (11.0-16.0) % Plt Count (160-400) X10*3/uL MPV (9.4-12.4) fL Immature Gran % (Auto) (0.0-0.4) % Neut % (Auto) (45-73) % Lymph % (Auto) (20-40) % Gray % (Auto) (2-11) % Eos % (Auto) (0-4) % Baso % (Auto) (0-2) % Lymph # (Auto) (1.2-4.9) X10*3/uL Gray # (Auto) (0.1-1.2) X10*3/uL Eos # (Auto) (0.0-0.4) X10*3/uL Baso # (Auto) (0.0-0.2) X10*3/uL Abs Immat Gran (auto) (0.00-0.03) X10*3/uL Absolute Neuts (auto) (2.0-8.3) X10*3/uL Absolute Nucleated RBC (0.0-0.012) X10*3/uL Nucleated RBC % (auto) (0.0-0.2) /100WBC D-Dimer NG/ML Sodium (135-145) mmol/L Potassium (3.3-5.1) mmol/l Chloride (96-108) mmol/L Carbon Dioxide (22-29) mmol/L Anion Gap (12-20) BUN (9-16) mg/dL Creatinine (0.5-1.4) mg/dL Estim Creat Clear Calc Estimated GFR POC Glucose 180 H (60-115) mg/dL Random Glucose (60-115) mg/dL Calcium (8.4-10.2) mg/dL Troponin I High Sens (<3.5-35.0) ng/L B-Natriuretic Peptide (<100) pg/mL Discharge Plan Discharge Clinical Impression: Chest pain Qualifiers: Chest pain type: unspecified Qualified Code(s): R07.9 - Chest pain, unspecified Dyspnea Qualifiers: Dyspnea type: unspecified Qualified Code(s): R06.00 - Dyspnea, unspecified Patient Disposition: Home, Self-Care Instructions: Chest Pain (ED), Dyspnea (ED) Additional Instructions: Please follow-up with your primary care physician tomorrow. If you have any worsening or new symptoms, please return to the emergency room or call 911 Prescriptions: No Action albuterol sulfate 2.5 mg /3 mL (0.083 %) Solution For Nebulization 2.5 mg inhalation Q4H PRN (Reason: Shortness Of Breath Or Wheezing) RF: 0 (DME) lancets Misc MISCELLANEOUS RF: 0 famotidine [Pepcid] 20 mg Tablet 20 mg PO BID RF: 0 (DME) blood-glucose meter [FreeStyle [place] Lite] Kit MISCELLANEOUS RF: 0 (DME) cane Device MISCELLANEOUS RF: 0 (DME) FreeStyle Lite Strips RF: 0 magnesium oxide [MagOx] 400 mg (241.3 mg magnesium) Tablet 400 mg PO DAILY RF: 0 (DME) pen needle, diabetic Needle MISCELLANEOUS RF: 0 methadone 10 mg/mL Concentrate 50 mg PO DAILY RF: 0 albuterol sulfate 90 mcg/actuation Hfa Aerosol Inhaler 2 puff INHALATION Q4H PRN (Reason: Shortness Of Breath) RF: 0 zinc sulfate 110 mg (25 mg zinc) Tablet 220 mg PO DAILY RF: 0 spironolactone 25 mg Tablet 12.5 mg PO DAILY RF: 0 sennosides [senna] 8.6 mg Tablet 8.6 mg PO BEDTIME PRN (Reason: Constipation) RF: 0 Lantus U-100 Insulin 100 unit/mL Solution 12 unit SUBCUT QPM RF: 0 cetirizine 10 mg Tablet 10 mg PO DAILY RF: 0 aspirin 81 mg Tablet,Delayed Release (Dr/Ec) 81 mg PO DAILY RF: 0 insulin lispro 100 unit/mL Solution 5 unit SUBCUT TIDAC RF: 0 polyethylene glycol 3350 [Miralax] 17 gram/dose Powder 17 g PO DAILY RF: 0 carvedilol 6.25 mg Tablet 6.25 mg PO BID RF: 0 atorvastatin 20 mg Tablet 20 mg PO BEDTIME RF: 0 torsemide 20 mg Tablet 20 mg PO DAILY RF: 0 lidocaine [Lidocaine Pain Relief] 4 % Adhesive Patch,Medicated 1 patch TOPICAL DAILY PRN (Reason: Pain) RF: 0 clopidogrel 75 mg Tablet 75 mg PO DAILY RF: 0 tamsulosin 0.4 mg Capsule 0.4 mg PO DAILY RF: 0 fluticasone propion-salmeterol [Advair Diskus] 500-50 mcg/dose Blister With Device 1 inh INHALATION BID RF: 0 losartan 25 mg Tablet 25 mg PO DAILY RF: 0 montelukast 10 mg Tablet 10 mg PO BEDTIME RF: 0 gabapentin 100 mg Capsule 200 mg PO TID RF: 0 ergocalciferol (vitamin D2) 1,250 mcg (50,000 unit) Capsule 1,250 mcg PO QWEEK RF: 0 fluticasone propionate [Flonase Allergy Relief] 50 mcg/actuation [place],Suspension 1 spray INTRANASAL DAILY RF: 0 oxycodone 5 mg Tablet 5 mg PO Q6H PRN (Reason: Pain (Scale Score 1-3)) RF: 0 clotrimazole 1 % Cream 1 applic TOPICAL TID RF: 0 Eucerin Cream 1 applic TOPICAL DAILY PRN (Reason: Dry Skin) RF: 0 oxycodone 5 mg tablet 5 mg PO Q6H PRN (Reason: pain) Qty: 20 RF: 0
[2020-08-26 03:55] LABS: Basophils Percent Auto 0.4 % (0-2); Eosinophils Percent Auto 0.6 % (0-4); Hematocrit 36.5 % (42-52); Hemoglobin 11.3 g/dl (14.0-18.0); Imm Gran Abs Auto 0.02 X10*3/uL (0.00-0.03); Imm Gran Pct Auto 0.3 % (0.0-0.4); Lymphocytes Absolute Auto 1.1 X10*3/uL (1.2-4.9); Lymphocytes Percent Auto 14.6 % (20-40); MANUAL DIFF FLAG NO; Mean Corpuscular Hemoglobin 26.8 pg (27.0-33.0); Mean Corpuscular Volume 86.5 fL (80-98); Mean Platelet Volume 9.4 fL (9.4-12.4); Monocytes Absolute Auto 0.7 X10*3/uL (0.1-1.2); Monocytes Percent Auto 10.1 % (2-11); Neutrophils Absolute Auto 5.4 X10*3/uL (2.0-8.3); Platelet Count 391 X10*3/uL (160-400); Red Blood Count 4.22 X10*6/uL (4.60-5.80); Red Cell Distribution Width 19.1 % (11.0-16.0); White Blood Count 7.3 X10*3/uL (4.8-10.8)
[2020-08-26] MEDS: Aspirin Enteric Coated 325 MG TABLET.DR PO (03:59)
[2020-08-26] MEDS: Albuterol/Iprat 2.5/0.5MG 3 ML AMPUL.NEB INHALE (04:08)
[2020-08-26 04:26] LABS: B Type Natriuretic Peptide 3735 pg/mL (<100); Troponin-I High Sensitivity 17.8 ng/L (<3.5-35.0)
[2020-08-26 04:28] LABS: Anion Gap 18 (12-20); Blood Urea Nitrogen 17 mg/dL (9-16); Carbon Dioxide 22 mmol/L (22-29); Chloride 98 mmol/L (96-108); Creatinine Clr Calc Pharmacy 144.5; Estimated Glomerular Filt Rate > 60; Glucose Random 142 mg/dL (60-115); Sodium 134 mmol/L (135-145)
[2020-08-26 04:55] VITALS: BP 145/86; PULSE 76; RESP 16
[2020-08-26 05:03] LABS: Calcium 9.3 mg/dL (8.4-10.2)
[2020-08-26 05:15] LABS: D Dimer 2100 NG/ML
[2020-08-26 06:00] VITALS: BP 148/92; PULSE 94; RESP 16; TEMP 36.7; O2SAT 95
--- NOTE | 2020-08-26 06:12 | PC.NURSE ---
PATIENT GETTING INTO THE CT SCAN ROOM, AND STATING THAT HE DOES NOT FEEL WELL ENOUGH FOR THE TEST. PATIENT BROUGHT BACK TO HIS ROOM AND PROVIDER MADE AWARE BY THE SEAT COVER MAKER.
[2020-08-26 06:22] LABS: Glucose, Whole Blood 180 mg/dL (60-115)
== END 2020-08-26 10:20 | disposition home or self-care (01) ==
PROVIDERS: Emergency Provider Emergency Medicine
DX: R07.9 Chest pain, unspecified (principal); M54.9 Dorsalgia, unspecified; R10.9 Unspecified abdominal pain; R06.00 Dyspnea, unspecified; I10 Essential (primary) hypertension; I25.10 Atherosclerotic heart disease of native coronary artery without angina pectoris; F12.90 Cannabis use, unspecified, uncomplicated; F17.200 Nicotine dependence, unspecified, uncomplicated; Z71.6 Tobacco abuse counseling; Z79.899 Other long term (current) drug therapy
CPT/HCPCS: 36415; 71045; 80048; 82947; 83880; 84484; 85025; 85379; 93005; 99284

== ENCOUNTER 2020-08-30 17:19 | Inpatient (IN) | payer MEDICAID, SELFPAY ==
[2020-08-30 17:23] VITALS: BP 140/94; PULSE 93; RESP 16; TEMP 36.4; O2SAT 98; BMI 21.6
--- NOTE | 2020-08-30 18:32 | ED_ITS ---
HPI - General Adult General Chief complaint: Abdominal Pain Stated complaint: RIB PAIN Time Seen by Provider: 08/30/20 18:28 Source: patient and EMS Mode of arrival: EMS History of Present Illness HPI narrative: 50-year-old male with a past medical history of opiate abuse, CHF with an EF of 10%, diabetes, BIBA c/o continued left lower rib tenderness with associated SOB. Patient has been seen in the ED multiple times for similar complaints in the past few weeks. Chest CT on 08/18 showing CHF and abnormal chest wall soft tissue which was also seen in 2019. Patient denies fever, chills, cough, abdominal pain, nausea /vomiting Related Data Home Medications Medication Instructions Recorded Confirmed FreeStyle Lite Strips 08/12/20 08/12/20 albuterol sulfate 2 puff INHALATION Q4H PRN 08/12/20 08/12/20 albuterol sulfate 2.5 mg INHALATION Q4H PRN 08/12/20 08/12/20 blood-glucose meter [FreeStyle 08/12/20 08/12/20 [place] Lite] cane 08/12/20 08/12/20 famotidine [Pepcid] 20 mg PO BID 08/12/20 08/12/20 lancets 08/12/20 08/12/20 magnesium oxide [MagOx] 400 mg PO DAILY 08/12/20 08/12/20 methadone 50 mg PO DAILY 08/12/20 08/12/20 pen needle, diabetic 08/12/20 08/12/20 Eucerin 1 applic TOPICAL DAILY PRN 08/14/20 08/14/20 Lantus U-100 Insulin 12 unit SUBCUT QPM 08/14/20 08/14/20 aspirin 81 mg PO DAILY 08/14/20 08/14/20 atorvastatin 20 mg PO BEDTIME 08/14/20 08/14/20 carvedilol 6.25 mg PO BID 08/14/20 08/14/20 cetirizine 10 mg PO DAILY 08/14/20 08/14/20 clopidogrel 75 mg PO DAILY 08/14/20 08/14/20 clotrimazole 1 applic TOPICAL TID 08/14/20 08/14/20 ergocalciferol (vitamin D2) 1,250 mcg PO QWEEK 08/14/20 08/14/20 fluticasone propion-salmeterol 1 inh INHALATION BID 08/14/20 08/14/20 [Advair Diskus] fluticasone propionate [Flonase 1 spray INTRANASAL DAILY 08/14/20 08/14/20 Allergy Relief] gabapentin 200 mg PO TID 08/14/20 08/14/20 insulin lispro 5 unit SUBCUT TIDAC 08/14/20 08/14/20 lidocaine [Lidocaine Pain Relief] 1 patch TOPICAL DAILY PRN 08/14/20 08/14/20 losartan 25 mg PO DAILY 08/14/20 08/14/20 montelukast 10 mg PO BEDTIME 08/14/20 08/14/20 oxycodone 5 mg PO Q6H PRN 08/14/20 08/14/20 polyethylene glycol 3350 [Miralax] 17 g PO DAILY 08/14/20 08/14/20 sennosides [senna] 8.6 mg PO BEDTIME PRN 08/14/20 08/14/20 spironolactone 12.5 mg PO DAILY 08/14/20 08/14/20 tamsulosin 0.4 mg PO DAILY 08/14/20 08/14/20 torsemide 20 mg PO DAILY 08/14/20 08/14/20 zinc sulfate 220 mg PO DAILY 08/14/20 08/14/20 Previous Rx's Medication Instructions Recorded oxycodone 5 mg PO Q6H PRN #20 tab 08/24/20 Allergies Allergy/AdvReac Type Severity Reaction Status Date / Time vancomycin [VANCOMYCIN] Allergy Intermediate HIVES Verified 08/16/20 21:06 Chocolate Allergy Unknown Rash Verified 08/16/20 21:06 ciprofloxacin [From CIPRO] Allergy Unknown SWELLING Verified 08/16/20 21:06 ertapenem Allergy Unknown Hives Verified 08/16/20 21:06 hydrocortisone [Cipro HC] Allergy Unknown Unknown Verified 08/16/20 21:06 sulfamethoxazole Allergy Unknown rash Verified 08/16/20 21:06 [From BACTRIM] trimethoprim [From BACTRIM] Allergy Unknown rash Verified 08/16/20 21:06 turkey [TURKEY] Allergy Unknown RASH Verified 08/16/20 21:06 From INVANZ Allergy Intermediate HIVES Uncoded 07/30/20 16:40 choclate Allergy Unknown rash Uncoded 07/23/19 00:00 Review of Systems Review of Systems: Constitutional: No Weight loss, No Fever, No Chills Cardiovascular: No Chest Pain, + SOB Respiratory: No Cough, No Sputum Gastrointestinal: No Nausea, No Vomiting, No Diarrhea, No Constipation, No Abdominal pain Genitourinary: No Dysuria, No Urinary Frequency, No Hematuria Musculoskeletal: +rib pain, No joint pain, No Myalgias, No Joint Swelling Skin: No Skin Lesions, No rash Yes all other systems are reviewed and are negative [facility] Past Medical History Attestation statement: The following information was validated with the patient. Source: old records reviewed and nursing notes reviewed Medical History Acute on chronic anemia Acute on chronic combined systolic and diastolic congestive heart failure Asthma Bipolar 1 disorder Chest pain Congestive cardiac failure COPD (chronic obstructive pulmonary disease) Diabetes mellitus, type 2 Hyperlipidemia Substance abuse Surgical History History of amputation History of laminectomy History of transurethral resection of prostate Hx of BKA Family History Family History (Updated 08/25/20 @ 08:48 by BASSAM Mayorga) Father Chronic mental illness Hypertension Asthma Stroke Mother Asthma Diabetes Coronary artery disease Social History Social History Alcohol intake: current Alcohol intake frequency: a few times a week Alcohol type: beer Smoking Status: Current every day smoker Smoked in Last 30 Days: Yes Use of substances other than those prescribed or required for medical reasons: Refusing to respond Substance Use Type: Marijuana Advance Directives: No Advance Directives Information Provided: No Physical Exam Vital Signs: Vital Signs: Vital Signs Temp Pulse Resp BP Pulse Ox 08/31/20 00:38 97.8 F 88 18 124/76 96 08/30/20 22:00 98 F 75 18 135/85 95 08/30/20 20:00 98.4 F 88 18 132/92 H 95 08/30/20 17:23 97.6 F 93 16 140/94 H 98 Body Mass Index 21.6 Const: General: cooperative and healthy appearing Limitations: no limitations HENMT: Head: Yes normal to inspection Ears: hearing grossly normal bilaterally General nose exam: Normal external nose present Face and sinus: Yes normal facial exam Eyes: General: appearance normal, both eyes and all related structures Neck: Neck: Yes normal visual inspection Chest: Other: 50-year-old male with a past medical history of opiate abuse, CHF with an EF of 10%, diabetes, BIBA c/o continued left lower rib tenderness with associated SOB. On exam VSS, lethargic, lungs CTA, bilateral lower anterior rib tenderness elicited. Abdomen soft with RUQ/LUQ ttp. Concern for acute on chronic pain/inflammation. Lower concern for fracture with recent studies negative. Low concern for ACS / PE with duration of symptoms. ?Pancreatitis/cholecystitis or splenic etiology plan: EKG, labs, CXR, abdomen ultrasound, reassess Chest palpation & inspection: normal inspection of the chest, no crepitus and tenderness ( bilateral lower anterior ribs) Resp: Effort & Inspection: normal respiratory effort Auscultation: clear to auscultation bilaterally Cardio: Rate: regular rate Heart sounds: S1 normal heart sound present and S2 normal heart sound present GI: Inspection: Yes normal to inspection Palpation (GI): Soft to palpation, Tenderness to palpation present (GI) in the epigastrum, in the LUQ and in the RUQ, no guarding and not rigid Skin: Rashes: no rashes Wounds: no wounds Extrem: General: Yes normal to inspection Course Course Course Narrative: -214-- labs at patient's baseline, CXR showing increasing nonspecific right lower lobe airspace disease in the setting of low lung volumes > patient recently had dry CT chest on 08/18, prior on 08/26 there was concern for PE however pt refused CTA. Will attempt to obtain CTA today to further eval lung larry/rule out PE if patient is agreeable - ultrasound showing cholelithiasis. Chronic splenomegaly. Small volume free abdominal fluid - patient desatting in the ED to 88% on room air> increased to 100% on 2 L NC -0135-- CTA without evidence of PE. Moderate right pleural effusion, increased from 08/18/2020 > will speak to hospitalist about admission for progression of effusion. 40mg IV Lasix ordered Medical Decision Making Lab Data Result diagrams: 08/30/20 19:49 08/30/20 19:48 Labs: Lab Results 08/30/20 08/30/20 08/30/20 Range/Units 19:48 19:48 19:49 WBC 9.5 (4.8-10.8) X10*3/uL RBC 4.39 L (4.60-5.80) X10*6/uL Hgb 11.5 L (14.0-18.0) g/dl Hct 38.4 L (42-52) % MCV 87.5 (80-98) fL MCH 26.2 L (27.0-33.0) pg MCHC 29.9 L (31.0-36.0) g/dl RDW 19.1 H (11.0-16.0) % Plt Count 353 (160-400) X10*3/uL MPV 9.3 L (9.4-12.4) fL Immature Gran % (Auto) 0.2 (0.0-0.4) % Neut % (Auto) 76.1 H (45-73) % Lymph % (Auto) 12.4 L (20-40) % Coke % (Auto) 8.6 (2-11) % Eos % (Auto) 2.3 (0-4) % Baso % (Auto) 0.4 (0-2) % Lymph # (Auto) 1.2 (1.2-4.9) X10*3/uL Coke # (Auto) 0.8 (0.1-1.2) X10*3/uL Eos # (Auto) 0.2 (0.0-0.4) X10*3/uL Baso # (Auto) 0.0 (0.0-0.2) X10*3/uL Abs Immat Gran (auto) 0.02 (0.00-0.03) X10*3/uL Absolute Neuts (auto) 7.2 (2.0-8.3) X10*3/uL Absolute Nucleated RBC 0.000 (0.0-0.012) X10*3/uL Nucleated RBC % (auto) 0.0 (0.0-0.2) /100WBC Hold Blue Top Sodium 137 (135-145) mmol/L Potassium 3.7 (3.3-5.1) mmol/l Chloride 96 (96-108) mmol/L Carbon Dioxide 32 H (22-29) mmol/L Anion Gap 13 (12-20) BUN 14 (9-16) mg/dL Creatinine 0.74 (0.5-1.4) mg/dL Estim Creat Clear Calc 100.3 Estimated GFR > 60 Random Glucose 146 H (60-115) mg/dL Calcium 8.9 (8.4-10.2) mg/dL Total Bilirubin 0.6 (0.0-1.0) mg/dL Direct Bilirubin 0.5 (0.0-0.5) mg/dL AST 55 H (5-37) U/L ALT 51 H (0-40) U/L Alkaline Phosphatase 153 H (39-117) U/L B-Natriuretic Peptide 2377 H (<100) pg/mL Total Protein 8.0 (6.5-8.0) g/dL Albumin 3.2 L (3.5-5.0) g/dL Lipase 4 L (8-78) U/L 10/18/20 Range/Units 19:49 WBC (4.8-10.8) X10*3/uL RBC (4.60-5.80) X10*6/uL Hgb (14.0-18.0) g/dl Hct (42-52) % MCV (80-98) fL MCH (27.0-33.0) pg MCHC (31.0-36.0) g/dl RDW (11.0-16.0) % Plt Count (160-400) X10*3/uL MPV (9.4-12.4) fL Immature Gran % (Auto) (0.0-0.4) % Neut % (Auto) (45-73) % Lymph % (Auto) (20-40) % Coke % (Auto) (2-11) % Eos % (Auto) (0-4) % Baso % (Auto) (0-2) % Lymph # (Auto) (1.2-4.9) X10*3/uL Coke # (Auto) (0.1-1.2) X10*3/uL Eos # (Auto) (0.0-0.4) X10*3/uL Baso # (Auto) (0.0-0.2) X10*3/uL Abs Immat Gran (auto) (0.00-0.03) X10*3/uL Absolute Neuts (auto) (2.0-8.3) X10*3/uL Absolute Nucleated RBC (0.0-0.012) X10*3/uL Nucleated RBC % (auto) (0.0-0.2) /100WBC Hold Blue Top SEE NOTE Sodium (135-145) mmol/L Potassium (3.3-5.1) mmol/l Chloride (96-108) mmol/L Carbon Dioxide (22-29) mmol/L Anion Gap (12-20) BUN (9-16) mg/dL Creatinine (0.5-1.4) mg/dL Estim Creat Clear Calc Estimated GFR Random Glucose (60-115) mg/dL Calcium (8.4-10.2) mg/dL Total Bilirubin (0.0-1.0) mg/dL Direct Bilirubin (0.0-0.5) mg/dL AST (5-37) U/L ALT (0-40) U/L Alkaline Phosphatase (39-117) U/L B-Natriuretic Peptide (<100) pg/mL Total Protein (6.5-8.0) g/dL Albumin (3.5-5.0) g/dL Lipase (8-78) U/L Discharge Plan Discharge Clinical Impression: Pleural effusion on right, Cholelithiasis Patient Disposition: Home, Self-Care Additional Instructions: your blood work is at her baseline. Your ultrasound showed gallstones, but no acute gallbladder Prescriptions: No Action albuterol sulfate 2.5 mg /3 mL (0.083 %) Solution For Nebulization 2.5 mg inhalation Q4H PRN (Reason: Shortness Of Breath Or Wheezing) RF: 0 (DME) lancets Misc MISCELLANEOUS RF: 0 famotidine [Pepcid] 20 mg Tablet 20 mg PO BID RF: 0 (DME) blood-glucose meter [FreeStyle [place] Lite] Kit MISCELLANEOUS RF: 0 (DME) cane Device MISCELLANEOUS RF: 0 (DME) FreeStyle Lite Strips RF: 0 magnesium oxide [MagOx] 400 mg (241.3 mg magnesium) Tablet 400 mg PO DAILY RF: 0 (DME) pen needle, diabetic Needle MISCELLANEOUS RF: 0 methadone 10 mg/mL Concentrate 50 mg PO DAILY RF: 0 albuterol sulfate 90 mcg/actuation Hfa Aerosol Inhaler 2 puff INHALATION Q4H PRN (Reason: Shortness Of Breath) RF: 0 zinc sulfate 110 mg (25 mg zinc) Tablet 220 mg PO DAILY RF: 0 spironolactone 25 mg Tablet 12.5 mg PO DAILY RF: 0 sennosides [senna] 8.6 mg Tablet 8.6 mg PO BEDTIME PRN (Reason: Constipation) RF: 0 Lantus U-100 Insulin 100 unit/mL Solution 12 unit SUBCUT QPM RF: 0 cetirizine 10 mg Tablet 10 mg PO DAILY RF: 0 aspirin 81 mg Tablet,Delayed Release (Dr/Ec) 81 mg PO DAILY RF: 0 insulin lispro 100 unit/mL Solution 5 unit SUBCUT TIDAC RF: 0 polyethylene glycol 3350 [Miralax] 17 gram/dose Powder 17 g PO DAILY RF: 0 carvedilol 6.25 mg Tablet 6.25 mg PO BID RF: 0 atorvastatin 20 mg Tablet 20 mg PO BEDTIME RF: 0 torsemide 20 mg Tablet 20 mg PO DAILY RF: 0 lidocaine [Lidocaine Pain Relief] 4 % Adhesive Patch,Medicated 1 patch TOPICAL DAILY PRN (Reason: Pain) RF: 0 clopidogrel 75 mg Tablet 75 mg PO DAILY RF: 0 tamsulosin 0.4 mg Capsule 0.4 mg PO DAILY RF: 0 fluticasone propion-salmeterol [Advair Diskus] 500-50 mcg/dose Blister With Device 1 inh INHALATION BID RF: 0 losartan 25 mg Tablet 25 mg PO DAILY RF: 0 montelukast 10 mg Tablet 10 mg PO BEDTIME RF: 0 gabapentin 100 mg Capsule 200 mg PO TID RF: 0 ergocalciferol (vitamin D2) 1,250 mcg (50,000 unit) Capsule 1,250 mcg PO QWEEK RF: 0 fluticasone propionate [Flonase Allergy Relief] 50 mcg/actuation Deaver,Suspension 1 spray INTRANASAL DAILY RF: 0 oxycodone 5 mg Tablet 5 mg PO Q6H PRN (Reason: Pain (Scale Score 1-3)) RF: 0 clotrimazole 1 % Cream 1 applic TOPICAL TID RF: 0 Eucerin Cream 1 applic TOPICAL DAILY PRN (Reason: Dry Skin) RF: 0 oxycodone 5 mg tablet 5 mg PO Q6H PRN (Reason: pain) Qty: 20 RF: 0 Referrals: Ashley Pendleton MD [Primary Care Provider] - 2 days Print Language: Bengali
--- NOTE | 2020-08-30 18:42 | ECG_ITS ---
Test Reason : RIB PAIN Blood Pressure : / mmHG Vent. Rate : 090 BPM Atrial Rate : 090 BPM P-R Int : 182 ms QRS Dur : 108 ms QT Int : 398 ms P-R-T Axes : 062 -20 143 degrees QTc Int : 486 ms Normal sinus rhythm Nonspecific ST and T wave abnormality Abnormal ECG When compared with ECG of 25-AUG-2020 23:19, No significant change was found Referred By: Alfred Rodriguez Electronically Signed By:CRISTIAN SU MD
--- NOTE | 2020-08-30 18:42 | XR_ITS ---
EXAMINATION: CHEST 1 VIEW CLINICAL INFORMATION: Bilateral rib pain. COMPARISON: August 26, 2020. TECHNIQUE: An AP view of the chest is provided. FINDINGS: The cardiothymic silhouette is prominent, though stable. Lung volumes are decreased. There is stable elevation to the right hemidiaphragm. There is increasing nonspecific patchy opacification within the right lower lung zone. There are neither pleural effusions nor pneumothoraces. The osseous structures are stable. There are no demonstrable rib fractures. IMPRESSION: Increasing nonspecific right lower lobe airspace disease in the setting of low lung volumes. No acute osseous abnormalities demonstrable.
--- NOTE | 2020-08-30 18:46 | US_ITS ---
EXAMINATION: US ABDOMEN COMPLETE CLINICAL INFORMATION: Epigastric and upper abdominal pain.. COMPARISON: CT abdomen pelvis 07/13/2020 and abdominal ultrasound 08/04/2019 TECHNIQUE: Real-time imaging of the abdominal viscera. Examination mildly limited secondary to overlying bowel gas. FINDINGS: PANCREAS: Visualized portions of pancreas are normal in appearance. Pancreatic tail is obscured by overlying bowel gas. ABDOMINAL AORTA: Proximal and mid segments of the abdominal aorta are normal in caliber. The distal abdominal aorta inferior by overlying bowel gas. INFERIOR VENA CAVA: Visualized portions are normal. LIVER: The liver is mildly enlarged. The liver contour is normal. Parenchymal echogenicity is normal. No focal hepatic lesion. There is no intrahepatic biliary duct dilatation seen. GALLBLADDER: The gallbladder appears to be contracted around numerous gallstones. Shadowing from gallstones results in suboptimal evaluation of the gallbladder. There is no gross gallbladder wall thickening appreciated. COMMON BILE DUCT: Normal in caliber measuring 0.4 cm in diameter. RIGHT KIDNEY: Normal. No hydronephrosis. No renal calculi or focal parenchymal lesions. The kidney measures 11.3 cm in maximum dimension. LEFT KIDNEY: Normal. No hydronephrosis. No renal calculi or focal parenchymal lesions. The kidney measures 11.2 cm in maximum dimension. SPLEEN: The spleen measures 14.6 cm in maximum dimension. FREE FLUID: Small volume IMPRESSION: 1. Examination mildly limited secondary to overlying bowel gas. 2. Cholelithiasis. Evaluation of the gallbladder is suboptimal due to shadowing from gallstones. 3. Splenomegaly, chronic. 4. Small volume free abdominal fluid.
[2020-08-30 19:53] LABS: MANUAL DIFF FLAG NO
[2020-08-30 19:56] LABS: Basophils Percent Auto 0.4 % (0-2); Eosinophils Absolute Auto 0.2 X10*3/uL (0.0-0.4); Eosinophils Percent Auto 2.3 % (0-4); Hematocrit 38.4 % (42-52); Hemoglobin 11.5 g/dl (14.0-18.0); Imm Gran Abs Auto 0.02 X10*3/uL (0.00-0.03); Imm Gran Pct Auto 0.2 % (0.0-0.4); Lymphocytes Absolute Auto 1.2 X10*3/uL (1.2-4.9); Lymphocytes Percent Auto 12.4 % (20-40); Mean Corpuscular HGB Conc 29.9 g/dl (31.0-36.0); Mean Corpuscular Hemoglobin 26.2 pg (27.0-33.0); Mean Corpuscular Volume 87.5 fL (80-98); Mean Platelet Volume 9.3 fL (9.4-12.4); Monocytes Absolute Auto 0.8 X10*3/uL (0.1-1.2); Monocytes Percent Auto 8.6 % (2-11); Neutrophils Absolute Auto 7.2 X10*3/uL (2.0-8.3); Neutrophils Percent Auto 76.1 % (45-73); Platelet Count 353 X10*3/uL (160-400); Red Blood Count 4.39 X10*6/uL (4.60-5.80); Red Cell Distribution Width 19.1 % (11.0-16.0); White Blood Count 9.5 X10*3/uL (4.8-10.8)
[2020-08-30 20:00] VITALS: BP 132/92; PULSE 88; RESP 18; TEMP 36.9; O2SAT 95
[2020-08-30 20:24] LABS: B Type Natriuretic Peptide 2377 pg/mL (<100)
[2020-08-30 20:40] LABS: Alanine Aminotransferase 51 U/L (0-40); Albumin Level 3.2 g/dL (3.5-5.0); Alkaline Phosphatase 153 U/L (39-117); Anion Gap 13 (12-20); Aspartate Amino Transferase 55 U/L (5-37); Bilirubin Direct 0.5 mg/dL (0.0-0.5); Bilirubin Total 0.6 mg/dL (0.0-1.0); Blood Urea Nitrogen 14 mg/dL (9-16); Calcium 8.9 mg/dL (8.4-10.2); Carbon Dioxide 32 mmol/L (22-29); Chloride 96 mmol/L (96-108); Creatinine Clr Calc Pharmacy 100.3; Estimated Glomerular Filt Rate > 60; Glucose Random 146 mg/dL (60-115); Lipase 4 U/L (8-78); Potassium 3.7 mmol/l (3.3-5.1); Sodium 137 mmol/L (135-145)
--- NOTE | 2020-08-30 21:48 | CT_ITS ---
EXAMINATION: CT ANGIOGRAM OF THE CHEST WITH AND WITHOUT CONTRAST (CT PULMONARY ANGIOGRAM FOR PE) CLINICAL INFORMATION: Reason for Exam r/o PE. SOB. Chronic elevated dimer. Rule out opacity COMPARISON: 08/18/2020 TECHNIQUE: Prior to contrast administration, noncontrast localization images were obtained. Subsequently, multidetector volumetric imaging was performed from the thoracic inlet to below the diaphragms following the administration of 65 mL Omnipaque 350 intravenous contrast. No contrast reaction reported Sagittal, coronal, and MIP oblique sagittal reformatted images were obtained on the CT workstation, uploaded to PACS, and reviewed. This CT examination was performed using dose optimization techniques as appropriate, variously including the following: *Automated exposure control *Adjustment of mA and/or kV according to patient size (this includes techniques or standardized protocols for targeted exams where dose is matched to indication/reason for exam; i.e. extremities or head) *Use of iterative reconstruction technique Total exam dose-length product 296 mGy-cm FINDINGS: QUALITY OF STUDY/CONTRAST BOLUS: Satisfactory. PULMONARY ARTERIES: No central or segmental pulmonary emboli identified. There is incomplete assessment of the distal vasculature especially at the lung bases due to respiratory motion artifact. LUNG: Parenchymal detail is limited due to respiratory motion artifact. There is some smooth interlobular septal thickening bilaterally, favoring a degree of interstitial edema. There is subsegmental atelectasis in the basilar left lower lobe. There is opacification of the posterior and basilar left lower lobe which is favored to at least partially reflect atelectasis given the presence of an adjacent pleural effusion. Subsegmental atelectasis is also noted to a lesser degree in the right upper and middle lobes. PLEURA: Moderate right pleural effusion, increased from prior. Trace left pleural effusion. No pneumothorax. MEDIASTINUM: The visualized thyroid gland is unremarkable. Borderline enlarged lymph nodes are noted, nonspecific. There is cardiomegaly without pericardial effusion. Coronary artery calcifications are present. No evidence of septal bowing or right heart strain. CHEST WALL/AXILLA: No axillary or internal mammary lymphadenopathy. OSSEOUS STRUCTURES: Mild degenerative endplate changes are noted in the spine. UPPER ABDOMEN: Trace perihepatic ascites is noted. There is extensive calcification in the bilateral renal duarte. No reflux of contrast into the hepatic veins to suggest elevated right heart pressures. IMPRESSION: 1. No pulmonary embolus identified. 2. Moderate right pleural effusion, increased from 08/18/2020. Adjacent right lower lobe opacity is favored to at least partially represent atelectasis. 3. Mild interstitial edema. 4. Cardiomegaly. 5. Coronary artery calcifications. Correlation with cardiac risk factors is recommended. 6. Trace perihepatic ascites. VTE: negative
[2020-08-30 22:00] VITALS: BP 135/85; PULSE 75; RESP 18; TEMP 36.6; O2SAT 95
--- NOTE | 2020-08-30 23:26 | PC.NURSE ---
report taken from billy vaca at this time. pt placed on 2 l nc due to oxygen being 88% on ra. pt complaining of rib pain. pending ct for rule out pe at this time.
[2020-08-31] VITALS (12 sets, daily range): BP systolic 114–145; BP diastolic 73–98; PULSE 70–88; RESP 18–20; TEMP 36.1–37.2; O2SAT 95–100
[2020-08-31] MEDS: iohexoL 350 MG/ML 100 ML INFUS..BTL 65 ML IV (00:32)
--- NOTE | 2020-08-31 00:38 | PC.NURSE ---
pt to and from imaging without incident
[2020-08-31] MEDS: Furosemide 40 MG/4 ML VIAL IVPUSH ×2 (01:41→16:25)
--- NOTE | 2020-08-31 01:48 | PC.NURSE ---
lasix given per emar. plan for admission
--- NOTE | 2020-08-31 03:16 | PC.NURSE ---
hospitalist at bedside
--- NOTE | 2020-08-31 03:29 | P.HPIM_ITS ---
History of Present Illness Date of Service: 08/31/20 Chief Complaint: SOB 50 y/o male with extensive PMHX who presented from home due to SOB. Patient is known to us to have a significant hx of rEFCHF due to cardiomyopathy with EF of 10-15%. Was recently discharged from our premises, admitted due to acute on chronic CHF exacerbation which was sucessfully treated with IV diuretics. Now patient presents due to worsening difficulty breathing for the past day. Denies any chest pain, Nausea, vomiting, diarrhea, cough or fever. Denies any sick contacts or recent travel. On presentation to the ED BP has remained mildly elevated, now 144/98 and HR of 88. Blood work pertinent for BNP of 2377 which is mildly increased from prior admission. CT chest showing worsening Right pleural effusion and bilateral vascular congestion which might repreent an underlying neoplastic etiology vs CH. Patient was given one dose of lasix IV. Per ED O2 sat of the patient has remained in the low 80's for what the patient at present requires 2 liter nasal cannula. Decision for admission given. Patient seen and examined at the bedside, laying down in bed in no acute distress. ROS as above otherwise negative. Physical exam positive for RLE BKA, decreaed breath sounds in the right lower lung field. Rest of the exam unremarkable. PMHX: rEF CHF due to cardiomyopathy with EF 10-15%, untreated hepatitis C bipolar disorder, On methadone due to prior history of polysubstance abuse PSx: RLE BKA Toxic habits: Polysubstance abuse including marijuana Review of Systems Cardiovascular: Cardiovascular: Reports dyspnea and Reports dyspnea on exertion Respiratory: Respiratory: Reports dyspnea and Reports dyspnea on exertion [facility] Medical History Acute on chronic anemia Acute on chronic combined systolic and diastolic congestive heart failure Asthma Bipolar 1 disorder Chest pain Congestive cardiac failure COPD (chronic obstructive pulmonary disease) Diabetes mellitus, type 2 Hyperlipidemia Substance abuse Functional capacity: independent ambulation Family History Father Chronic mental illness Hypertension Asthma Stroke Mother Asthma Diabetes Coronary artery disease Family history: reviewed and not pertinent Surgical History History of amputation History of laminectomy History of transurethral resection of prostate Hx of BKA Social History Alcohol intake: current Alcohol intake frequency: a few times a week Alcohol type: beer Smoking Status: Current every day smoker Smoked in Last 30 Days: Yes Use of substances other than those prescribed or required for medical reasons: Refusing to respond Substance Use Type: Marijuana Advance Directives: No Advance Directives Information Provided: No Meds Allergies Allergy/AdvReac Type Severity Reaction Status Date / Time vancomycin [VANCOMYCIN] Allergy Intermediate HIVES Verified 08/16/20 21:06 Chocolate Allergy Unknown Rash Verified 08/16/20 21:06 ciprofloxacin [From CIPRO] Allergy Unknown SWELLING Verified 08/16/20 21:06 ertapenem Allergy Unknown Hives Verified 08/16/20 21:06 hydrocortisone [Cipro HC] Allergy Unknown Unknown Verified 08/16/20 21:06 sulfamethoxazole Allergy Unknown rash Verified 08/16/20 21:06 [From BACTRIM] trimethoprim [From BACTRIM] Allergy Unknown rash Verified 08/16/20 21:06 turkey [TURKEY] Allergy Unknown RASH Verified 08/16/20 21:06 From INVANZ Allergy Intermediate HIVES Uncoded 07/30/20 16:40 choclate Allergy Unknown rash Uncoded 07/23/19 00:00 Home Medications Medication Instructions Recorded Confirmed Type FreeStyle Lite Strips 08/12/20 08/12/20 History albuterol sulfate 2 puff INHALATION Q4H PRN 08/12/20 08/31/20 History albuterol sulfate 2.5 mg INHALATION Q4H PRN 08/12/20 08/31/20 History blood-glucose meter [FreeStyle 08/12/20 08/12/20 History [place] Lite] cane 08/12/20 08/12/20 History famotidine [Pepcid] 20 mg PO BID 08/12/20 08/31/20 History lancets 08/12/20 08/12/20 History magnesium oxide [MagOx] 400 mg PO DAILY 08/12/20 08/31/20 History methadone 50 mg PO DAILY 08/12/20 08/12/20 History pen needle, diabetic 08/12/20 08/12/20 History Eucerin 1 applic TOPICAL DAILY PRN 08/14/20 08/31/20 History Lantus U-100 Insulin 12 unit SUBCUT QPM 08/14/20 08/31/20 History aspirin 81 mg PO DAILY 08/14/20 08/31/20 History atorvastatin 20 mg PO BEDTIME 08/14/20 08/31/20 History carvedilol 6.25 mg PO BID 08/14/20 08/31/20 History cetirizine 10 mg PO DAILY 08/14/20 08/31/20 History clopidogrel 75 mg PO DAILY 08/14/20 08/31/20 History clotrimazole 1 applic TOPICAL TID 08/14/20 08/31/20 History ergocalciferol (vitamin D2) 1,250 mcg PO QWEEK 08/14/20 08/31/20 History fluticasone propion-salmeterol 1 inh INHALATION BID 08/14/20 08/31/20 History [Advair Diskus] fluticasone propionate [Flonase 1 spray INTRANASAL DAILY 08/14/20 08/31/20 History Allergy Relief] gabapentin 200 mg PO TID 08/14/20 08/31/20 History insulin lispro 5 unit SUBCUT TIDAC 08/14/20 08/31/20 History lidocaine [Lidocaine Pain Relief] 1 patch TOPICAL DAILY PRN 08/14/20 08/31/20 History losartan 25 mg PO DAILY 08/14/20 08/31/20 History montelukast 10 mg PO BEDTIME 08/14/20 08/31/20 History oxycodone 5 mg PO Q6H PRN 08/14/20 08/14/20 History polyethylene glycol 3350 [Miralax] 17 g PO DAILY 08/14/20 08/31/20 History sennosides [senna] 8.6 mg PO BEDTIME PRN 08/14/20 08/31/20 History spironolactone 12.5 mg PO DAILY 08/14/20 08/31/20 History tamsulosin 0.4 mg PO DAILY 08/14/20 08/31/20 History torsemide 20 mg PO DAILY 08/14/20 08/31/20 History zinc sulfate 220 mg PO DAILY 08/14/20 08/31/20 History Physical Exam Vital Signs and Narrative: Vital Signs: Last Vital Signs Temp 98.9 F 08/31/20 01:44 Pulse 88 10/19/20 01:44 Resp 18 08/31/20 01:44 BP 144/98 H 08/31/20 01:44 Pulse Ox 100 08/31/20 01:44 Body Mass Index 21.6 Const: General: cooperative and comfortable Orientation/consciousness: patient oriented x3 HENMT: Head: Yes normal to inspection Eyes: General: appearance normal, both eyes and all related structures Neck: Yes normal visual inspection Chest: Chest palpation & inspection: normal inspection of the chest Breast/axilla palpation: other Resp: tactile fremitus present: other (decreased breath sounds in the right lower lung field) Cardio: Rate: regular rate Rhythm: regular rhythm Heart sounds: S1 normal heart sound present and S2 normal heart sound present GI: Inspection: Yes normal to inspection Skin: General skin exam: no rashes or lesions noted Neuro: General: patient oriented x3 Extrem: General: Yes other (ABI CARSONA) Psych: Appearance: grossly normal Results Labs Labs: Laboratory Tests 08/30/20 08/30/20 08/30/20 19:48 19:48 19:49 WBC 9.5 RBC 4.39 L Hgb 11.5 L Hct 38.4 L MCV 87.5 MCH 26.2 L MCHC 29.9 L RDW 19.1 H Plt Count 353 MPV 9.3 L Immature Gran % (Auto) 0.2 Neut % (Auto) 76.1 H Lymph % (Auto) 12.4 L Moca % (Auto) 8.6 Eos % (Auto) 2.3 Baso % (Auto) 0.4 Lymph # (Auto) 1.2 Moca # (Auto) 0.8 Eos # (Auto) 0.2 Baso # (Auto) 0.0 Abs Immat Gran (auto) 0.02 Absolute Neuts (auto) 7.2 Absolute Nucleated RBC 0.000 Nucleated RBC % (auto) 0.0 Hold Blue Top Sodium 137 Potassium 3.7 Chloride 96 Carbon Dioxide 32 H Anion Gap 13 BUN 14 Creatinine 0.74 Estim Creat Clear Calc 100.3 Estimated GFR > 60 Random Glucose 146 H Calcium 8.9 Total Bilirubin 0.6 Direct Bilirubin 0.5 AST 55 H ALT 51 H Alkaline Phosphatase 153 H B-Natriuretic Peptide 2377 H Total Protein 8.0 Albumin 3.2 L Lipase 4 L 08/30/20 19:49 WBC RBC Hgb Hct MCV MCH MCHC RDW Plt Count MPV Immature Gran % (Auto) Neut % (Auto) Lymph % (Auto) Moca % (Auto) Eos % (Auto) Baso % (Auto) Lymph # (Auto) Moca # (Auto) Eos # (Auto) Baso # (Auto) Abs Immat Gran (auto) Absolute Neuts (auto) Absolute Nucleated RBC Nucleated RBC % (auto) Hold Blue Top SEE NOTE Sodium Potassium Chloride Carbon Dioxide Anion Gap BUN Creatinine Estim Creat Clear Calc Estimated GFR Random Glucose Calcium Total Bilirubin Direct Bilirubin AST ALT Alkaline Phosphatase B-Natriuretic Peptide Total Protein Albumin Lipase Assessment and Plan (1) Congestive cardiac failure: Problem details: EF 10% Status: Inactive Fluid restriction daily weights monitor I and O's Lasix 20 mg IV BID as of now continue with carvedilol home dose continue with MELVIN inh home dose continue with spironolactone home dose continue with losartan home dose continue with aspirin and plavix home dose Follow up 2D echo in the am Cardiology consult in the am (2) Pleural effusion on right: Status: Acute Worsening pleural effusion on chest imaging Pulmonology consult for diagnostic/therapeutic tap Continue with aggressive diuresis as of now and monitor respiratory status (3) GERD (gastroesophageal reflux disease): Status: Acute continue with PPI home dose (4) Diabetes mellitus, type 2: Status: Acute Insulin regimen (5) Asthma: Status: Inactive albuterol inh home dose (6) Hyperlipidemia: Status: Inactive continue with statin home dose (7) Peripheral neuropathy: Status: Acute continue with gabapentin home dose (8) BPH (benign prostatic hyperplasia): Status: Acute continue with flomax home dose
--- NOTE | 2020-08-31 04:09 | PC.NURSE ---
report given at this time
[2020-08-31 07:48] LABS: Glucose, Whole Blood 124 mg/dL (60-115)
[2020-08-31] MEDS: Furosemide 20 MG/2 ML VIAL IVPUSH (08:43)
[2020-08-31] MEDS: Magnesium Oxide 400 MG TABLET PO (08:45)
[2020-08-31] MEDS: Aspirin Enteric Coated 81 MG TABLET.DR PO (08:45)
[2020-08-31] MEDS: Clopidogrel Bisulfate 75 MG TABLET PO (08:45)
[2020-08-31] MEDS: Spironolactone 25 MG TABLET 12.5 MG PO (08:45)
[2020-08-31] MEDS: Gabapentin 100 MG CAPSULE 200 MG PO ×3 (08:46→20:55)
[2020-08-31] MEDS: Famotidine 20 MG TABLET PO ×2 (08:46→20:56)
[2020-08-31] MEDS: Losartan Potassium 25 MG TABLET PO (08:46)
[2020-08-31] MEDS: carvediloL 6.25 MG TABLET PO ×2 (08:47→20:55)
[2020-08-31] MEDS: Tamsulosin HCL 0.4 MG CAPSULE PO (08:47)
[2020-08-31] MEDS: 0.9 % Sodium Chloride Flush 3 ML SYRINGE IVFLUSH ×3 (08:49→20:55)
--- NOTE | 2020-08-31 09:35 | PM.CNPUL ---
History of Present Illness History of Present Illness Consult date: 08/31/20 Reason for consult: dyspnea Chief complaint: CHF exacerbation Narrative: 50 y/o male with extensive PMHX who presented from home due to SOB Along with bilateral chest pain. It is pleuritic in nature and moderate severity. Patient is known to us to have a significant hx of rEFCHF due to cardiomyopathy with EF of 10-15%. Was recently discharged from our premises, admitted due to acute on chronic CHF exacerbation which was sucessfully treated with IV diuretics. Now patient presents due to worsening difficulty breathing for the past day. Denies any chest pain, Nausea, vomiting, diarrhea, cough or fever. Denies any sick contacts or recent travel. On presentation to the ED BP has remained mildly elevated, now 144/98 and HR of 88. Blood work pertinent for BNP of 2377 which is mildly increased from prior admission. CT chest showing worsening Right pleural effusion and bilateral vascular congestion. On further evaluation he has had this right-sided effusion now for about a year. However, progressively has been getting worse. Likely associated with worsening atelectasis. However he does have some lymphadenopathy primarily in the subcarinal area. At this point the patient appears to be volume overloaded and will benefit from aggressive diuresis. Hopefully the effusion will improve in the next 24-48 hours. If no improvement thoracentesis will be indicated. Review of Systems Constitutional: Constitutional: Denies night sweats ENT: Denies change in voice, Denies lip swelling, Denies mouth pain, Reports nasal congestion, Reports nasal discharge and Denies tongue swelling Cardiovascular: Cardiovascular: Reports chest pain, Reports leg edema and Reports dyspnea Respiratory: Respiratory: Reports cough, Denies hemoptysis and Reports dyspnea Gastrointestinal: Gastrointestinal: Denies abdominal pain Musculoskeletal: Musculoskeletal: Reports arthralgias Neurologic: Denies Neuro-related abnormal movements Psychiatric: Psychiatric: Denies no additional psychiatric complaints Hematologic/Lymphatic: Hematologic/Lymphatic: Denies easy bleeding and Denies lymphadenopathy Allergic/Immunologic: Allergic/Immunologic: Denies lip swelling and Denies tongue swelling PMFSH Past Medical History Medical History Acute on chronic anemia Acute on chronic combined systolic and diastolic congestive heart failure Asthma Bipolar 1 disorder Chest pain Congestive cardiac failure COPD (chronic obstructive pulmonary disease) Diabetes mellitus, type 2 Hyperlipidemia Substance abuse Functional capacity: independent ambulation Family History Family History Father Chronic mental illness Hypertension Asthma Stroke Mother Asthma Diabetes Coronary artery disease Family history: reviewed and not pertinent Surgical History Surgical History History of amputation History of laminectomy History of transurethral resection of prostate Hx of BKA Social History Social History Alcohol intake: current Alcohol intake frequency: a few times a week Alcohol type: beer Smoking Status: Current every day smoker Smoked in Last 30 Days: Yes Use of substances other than those prescribed or required for medical reasons: Refusing to respond Substance Use Type: Marijuana Advance Directives: No Advance Directives Information Provided: No Meds Allergies Allergy/AdvReac Type Severity Reaction Status Date / Time vancomycin [VANCOMYCIN] Allergy Intermediate HIVES Verified 08/31/20 09:37 Chocolate Allergy Unknown Rash Verified 08/31/20 09:37 ciprofloxacin [From CIPRO] Allergy Unknown SWELLING Verified 08/31/20 09:37 ertapenem Allergy Unknown Hives Verified 08/31/20 09:37 hydrocortisone [Cipro HC] Allergy Unknown Unknown Verified 08/31/20 09:37 sulfamethoxazole Allergy Unknown rash Verified 08/31/20 09:37 [From BACTRIM] trimethoprim [From BACTRIM] Allergy Unknown rash Verified 08/31/20 09:37 turkey [TURKEY] Allergy Unknown RASH Verified 08/31/20 09:37 From INVANZ Allergy Intermediate HIVES Uncoded 08/31/20 09:37 choclate Allergy Unknown rash Uncoded 08/31/20 09:37 Home Medications Medication Instructions Recorded Confirmed Type FreeStyle Lite Strips 08/12/20 08/12/20 History albuterol sulfate 2 puff INHALATION Q4H PRN 08/12/20 08/31/20 History albuterol sulfate 2.5 mg INHALATION Q4H PRN 08/12/20 08/31/20 History blood-glucose meter [FreeStyle 08/12/20 08/12/20 History [place] Lite] cane 08/12/20 08/12/20 History famotidine [Pepcid] 20 mg PO BID 08/12/20 08/31/20 History lancets 08/12/20 08/12/20 History magnesium oxide [MagOx] 400 mg PO DAILY 08/12/20 08/31/20 History methadone 50 mg PO DAILY 08/12/20 08/12/20 History pen needle, diabetic 08/12/20 08/12/20 History Eucerin 1 applic TOPICAL DAILY PRN 08/14/20 08/31/20 History Lantus U-100 Insulin 12 unit SUBCUT QPM 08/14/20 08/31/20 History aspirin 81 mg PO DAILY 08/14/20 08/31/20 History atorvastatin 20 mg PO BEDTIME 08/14/20 08/31/20 History carvedilol 6.25 mg PO BID 08/14/20 08/31/20 History cetirizine 10 mg PO DAILY 08/14/20 08/31/20 History clopidogrel 75 mg PO DAILY 08/14/20 08/31/20 History clotrimazole 1 applic TOPICAL TID 08/14/20 08/31/20 History ergocalciferol (vitamin D2) 1,250 mcg PO QWEEK 08/14/20 08/31/20 History fluticasone propion-salmeterol 1 inh INHALATION BID 08/14/20 08/31/20 History [Advair Diskus] fluticasone propionate [Flonase 1 spray INTRANASAL DAILY 08/14/20 08/31/20 History Allergy Relief] gabapentin 200 mg PO TID 08/14/20 08/31/20 History insulin lispro 5 unit SUBCUT TIDAC 08/14/20 08/31/20 History lidocaine [Lidocaine Pain Relief] 1 patch TOPICAL DAILY PRN 08/14/20 08/31/20 History losartan 25 mg PO DAILY 08/14/20 08/31/20 History montelukast 10 mg PO BEDTIME 08/14/20 08/31/20 History oxycodone 5 mg PO Q6H PRN 08/14/20 08/14/20 History polyethylene glycol 3350 [Miralax] 17 g PO DAILY 08/14/20 08/31/20 History sennosides [senna] 8.6 mg PO BEDTIME PRN 08/14/20 08/31/20 History spironolactone 12.5 mg PO DAILY 08/14/20 08/31/20 History tamsulosin 0.4 mg PO DAILY 08/14/20 08/31/20 History torsemide 20 mg PO DAILY 08/14/20 08/31/20 History zinc sulfate 220 mg PO DAILY 08/14/20 08/31/20 History Physical Exam Vital Signs: Vital Signs: Vital Signs Temp Pulse Resp BP Pulse Ox 08/31/20 08:47 74 134/83 08/31/20 08:46 74 134/83 08/31/20 08:45 75 134/83 08/31/20 08:42 97.4 F 76 18 134/83 95 08/31/20 06:00 97.6 F 88 18 141/80 H 100 08/31/20 05:57 98.8 F 88 18 144/86 H 96 08/31/20 01:44 98.9 F 88 18 144/98 H 100 08/31/20 00:38 97.8 F 88 18 124/76 96 08/30/20 22:00 98 F 75 18 135/85 95 08/30/20 20:00 98.4 F 88 18 132/92 H 95 08/30/20 17:23 97.6 F 93 16 140/94 H 98 Body Mass Index 21.6 Const: General: alert HENMT: General nose exam: Abnormal external nose present and Nasal discharge present Eyes: Pupils: Equal, round and reactive pupils present Neck: Neck: Yes normal visual inspection, Yes full ROM and Yes no lymphadenopathy Chest: Chest palpation & inspection: normal inspection of the chest Resp: Auscultation: breath sounds absent (base) on the right and diminished lung sounds Cardio: Rate: regular rate Rhythm: regular rhythm Heart sounds: S1 normal heart sound present and S2 normal heart sound present GI: Palpation (GI): Soft to palpation and nontender Auscultation: normal bowel sounds : General: Yes no CVA tenderness Back/Spine/Pelvis: Back: no CVA tenderness Skin: General skin exam: rashes and/or lesions noted Neuro: Cranial nerves: Yes Equal, round and reactive pupils present Extrem: Right lower extremity: lower leg ( amputation with area of cellulitis) Results Laboratory Findings CBC and BMP: 08/30/20 19:49 08/30/20 19:48 Abnormal lab findings: Abnormal Labs 08/30/20 08/30/20 08/30/20 19:48 19:48 19:49 RBC 4.39 L Hgb 11.5 L Hct 38.4 L MCH 26.2 L MCHC 29.9 L RDW 19.1 H MPV 9.3 L Neut % (Auto) 76.1 H Lymph % (Auto) 12.4 L Carbon Dioxide 32 H POC Glucose Random Glucose 146 H AST 55 H ALT 51 H Alkaline Phosphatase 153 H B-Natriuretic Peptide 2377 H Albumin 3.2 L Lipase 4 L 08/31/20 07:26 RBC Hgb Hct MCH MCHC RDW MPV Neut % (Auto) Lymph % (Auto) Carbon Dioxide POC Glucose 124 H Random Glucose AST ALT Alkaline Phosphatase B-Natriuretic Peptide Albumin Lipase Assessment and Plan (1) Pleural effusion on right: Problem details: likely related to transudative process due to his cardiomyopathy. This effusion has been present now since about a year ago, but, progressively getting worse. Does have some areas of atelectasis. Status: Acute Aggressive diuresis repeat chest x-ray in 1-2 days. if no better than will need a thoracentesis. (2) Chest pain: Qualifiers: Chest pain type: chest pain on breathing Qualified Code(s): R07.1 - Chest pain on breathing Status: Inactive Will request blood work for inflammatory conditions (3) COPD (chronic obstructive pulmonary disease): Status: Acute continue respiratory therapy
--- NOTE | 2020-08-31 10:15 | MHC.CM.PN ---
CM met with patient at the bedside who reports he lives alone and uses a wheelchair for amb r/t right BKA. Patient does have [facility] services with [facility] and can't remember who he has for VNA. CM will confirm with PCP's office. Patient states he does have a HCP, requested copy. Discussed discharge plan, home with resumption of NURSES' AIDE/VNA services. friend will be able to give patient a ride home. CM will continue to follow for discharge needs.
--- NOTE | 2020-08-31 11:03 | PM.CNCAR ---
History of Present Illness History of Present Illness Date of Consult: August 31, 2020 Requesting physician: Alfred Rodriguez Chief complaint: CHF exacerbation Narrative: 50-year-old gentleman with background history of diabetes, polysubstance abuse now on methadone, cardiomyopathy with EF of 15 20%, chronic chest pains, asthma and depression. He had right below-knee amputation a in [place]. He had a recent admission in June with edema and received IV diuretics. At that time he developed are starts in the setting of hypokalemia. As per chart review he left AMA on that admission. He now is presenting with chest pain which is reproducible as well as dyspnea. He is describing orthopnea. He is saying that he has been taking medications and visiting nurse comes and helps with the taking medications. No significant edema. He also has some discharge from the right below-knee amputation. He still has sutures in place. He is saying the surgery was 25-30 days ago. He is asking for his methadone which has not been given to him this morning. Review of Systems Review of Systems: chest pain, bilateral rib pains and dyspnea. Also complaining of discharge from the right below-knee amputation stump. Yes all other systems are reviewed and are negative Neurologic: Denies Neuro-related abnormal movements PMFSH Past Medical History Medical History (Updated 08/31/20 @ 11:16 by Gustavo Mccollum MD) Acute on chronic anemia Acute on chronic combined systolic and diastolic congestive heart failure Asthma Bipolar 1 disorder Chest pain Congestive cardiac failure COPD (chronic obstructive pulmonary disease) Diabetes mellitus, type 2 Hyperlipidemia Substance abuse Functional capacity: independent ambulation Family History Family History Father Chronic mental illness Hypertension Asthma Stroke Mother Asthma Diabetes Coronary artery disease Family history: reviewed and not pertinent Surgical History Surgical History History of amputation History of laminectomy History of transurethral resection of prostate Hx of BKA Social History Social History Alcohol intake: current Alcohol intake frequency: a few times a week Alcohol type: beer Smoking Status: Current every day smoker Smoked in Last 30 Days: Yes Use of substances other than those prescribed or required for medical reasons: Refusing to respond Substance Use Type: Marijuana Advance Directives: No Advance Directives Information Provided: No service: No Current occupational status: disabled Meds Allergies Allergy/AdvReac Type Severity Reaction Status Date / Time vancomycin [VANCOMYCIN] Allergy Intermediate HIVES Verified 08/31/20 09:37 Chocolate Allergy Unknown Rash Verified 08/31/20 09:37 ciprofloxacin [From CIPRO] Allergy Unknown SWELLING Verified 08/31/20 09:37 ertapenem Allergy Unknown Hives Verified 08/31/20 09:37 hydrocortisone [Cipro HC] Allergy Unknown Unknown Verified 08/31/20 09:37 sulfamethoxazole Allergy Unknown rash Verified 08/31/20 09:37 [From BACTRIM] trimethoprim [From BACTRIM] Allergy Unknown rash Verified 08/31/20 09:37 turkey [TURKEY] Allergy Unknown RASH Verified 08/31/20 09:37 From INVANZ Allergy Intermediate HIVES Uncoded 08/31/20 09:37 choclate Allergy Unknown rash Uncoded 08/31/20 09:37 Home Medications Medication Instructions Recorded Confirmed Type FreeStyle Lite Strips 08/12/20 08/12/20 History albuterol sulfate 2 puff INHALATION Q4H PRN 08/12/20 08/31/20 History albuterol sulfate 2.5 mg INHALATION Q4H PRN 08/12/20 08/31/20 History blood-glucose meter [FreeStyle 08/12/20 08/12/20 History [place] Lite] cane 08/12/20 08/12/20 History famotidine [Pepcid] 20 mg PO BID 08/12/20 08/31/20 History lancets 08/12/20 08/12/20 History magnesium oxide [MagOx] 400 mg PO DAILY 08/12/20 08/31/20 History methadone 50 mg PO DAILY 08/12/20 08/12/20 History pen needle, diabetic 08/12/20 08/12/20 History Eucerin 1 applic TOPICAL DAILY PRN 08/14/20 08/31/20 History Lantus U-100 Insulin 12 unit SUBCUT QPM 08/14/20 08/31/20 History aspirin 81 mg PO DAILY 08/14/20 08/31/20 History atorvastatin 20 mg PO BEDTIME 08/14/20 08/31/20 History carvedilol 6.25 mg PO BID 08/14/20 08/31/20 History cetirizine 10 mg PO DAILY 08/14/20 08/31/20 History clopidogrel 75 mg PO DAILY 08/14/20 08/31/20 History clotrimazole 1 applic TOPICAL TID 08/14/20 08/31/20 History ergocalciferol (vitamin D2) 1,250 mcg PO QWEEK 08/14/20 08/31/20 History fluticasone propion-salmeterol 1 inh INHALATION BID 08/14/20 08/31/20 History [Advair Diskus] fluticasone propionate [Flonase 1 spray INTRANASAL DAILY 08/14/20 08/31/20 History Allergy Relief] gabapentin 200 mg PO TID 08/14/20 08/31/20 History insulin lispro 5 unit SUBCUT TIDAC 08/14/20 08/31/20 History lidocaine [Lidocaine Pain Relief] 1 patch TOPICAL DAILY PRN 08/14/20 08/31/20 History losartan 25 mg PO DAILY 08/14/20 08/31/20 History montelukast 10 mg PO BEDTIME 08/14/20 08/31/20 History oxycodone 5 mg PO Q6H PRN 08/14/20 08/14/20 History polyethylene glycol 3350 [Miralax] 17 g PO DAILY 08/14/20 08/31/20 History sennosides [senna] 8.6 mg PO BEDTIME PRN 08/14/20 08/31/20 History spironolactone 12.5 mg PO DAILY 08/14/20 08/31/20 History tamsulosin 0.4 mg PO DAILY 08/14/20 08/31/20 History torsemide 20 mg PO DAILY 08/14/20 08/31/20 History zinc sulfate 220 mg PO DAILY 08/14/20 08/31/20 History Physical Exam Vital Signs: Vital Signs: Vital Signs Temp Pulse Resp BP Pulse Ox 08/31/20 08:47 74 134/83 08/31/20 08:46 74 134/83 08/31/20 08:45 75 134/83 08/31/20 08:42 97.4 F 76 18 134/83 95 08/31/20 06:00 97.6 F 88 18 141/80 H 100 08/31/20 05:57 98.8 F 88 18 144/86 H 96 08/31/20 01:44 98.9 F 88 18 144/98 H 100 08/31/20 00:38 97.8 F 88 18 124/76 96 08/30/20 22:00 98 F 75 18 135/85 95 08/30/20 20:00 98.4 F 88 18 132/92 H 95 08/30/20 17:23 97.6 F 93 16 140/94 H 98 Body Mass Index 21.6 Const: Other: GENERAL APPEARANCE: in no acute distress, Ill-appearing. HEENT: unremarkable. HEAD: normocephalic, atraumatic. NECK/THYROID: no carotid bruit, JVD approximately 12 cm water. SKIN: no suspicious lesions, warm and dry. HEART: no murmurs, regular rate and rhythm, S1, S2 normal. LUNGS: clear to auscultation bilaterally. ABDOMEN: normal, bowel sounds present, soft, nontender, nondistended. EXTREMITIES: no clubbing, cyanosis, or edema. right-sided above-knee amputation with sutures in place and erythema concerning for cellulitis. PERIPHERAL PULSES: equal. NEUROLOGIC: nonfocal, alert and oriented. PSYCH: Depressed. Results Labs and Meds Result diagrams: 08/30/20 19:49 08/30/20 19:48 Lab results: Laboratory Results - last 24 hr 08/30/20 08/30/20 08/30/20 19:48 19:48 19:49 WBC 9.5 RBC 4.39 L Hgb 11.5 L Hct 38.4 L MCV 87.5 MCH 26.2 L MCHC 29.9 L RDW 19.1 H Plt Count 353 MPV 9.3 L Immature Gran % (Auto) 0.2 Neut % (Auto) 76.1 H Lymph % (Auto) 12.4 L Jackson % (Auto) 8.6 Eos % (Auto) 2.3 Baso % (Auto) 0.4 Lymph # (Auto) 1.2 Jackson # (Auto) 0.8 Eos # (Auto) 0.2 Baso # (Auto) 0.0 Abs Immat Gran (auto) 0.02 Absolute Neuts (auto) 7.2 Absolute Nucleated RBC 0.000 Nucleated RBC % (auto) 0.0 Hold Blue Top Sodium 137 Potassium 3.7 Chloride 96 Carbon Dioxide 32 H Anion Gap 13 BUN 14 Creatinine 0.74 Estim Creat Clear Calc 100.3 Estimated GFR > 60 POC Glucose Random Glucose 146 H Calcium 8.9 Total Bilirubin 0.6 Direct Bilirubin 0.5 AST 55 H ALT 51 H Alkaline Phosphatase 153 H B-Natriuretic Peptide 2377 H Total Protein 8.0 Albumin 3.2 L Lipase 4 L 08/30/20 08/31/20 19:49 07:26 WBC RBC Hgb Hct MCV MCH MCHC RDW Plt Count MPV Immature Gran % (Auto) Neut % (Auto) Lymph % (Auto) Jackson % (Auto) Eos % (Auto) Baso % (Auto) Lymph # (Auto) Jackson # (Auto) Eos # (Auto) Baso # (Auto) Abs Immat Gran (auto) Absolute Neuts (auto) Absolute Nucleated RBC Nucleated RBC % (auto) Hold Blue Top SEE NOTE Sodium Potassium Chloride Carbon Dioxide Anion Gap BUN Creatinine Estim Creat Clear Calc Estimated GFR POC Glucose 124 H Random Glucose Calcium Total Bilirubin Direct Bilirubin AST ALT Alkaline Phosphatase B-Natriuretic Peptide Total Protein Albumin Lipase Assessment and Plan (1) Acute on chronic combined systolic and diastolic congestive heart failure: Status: Inactive (2) Chest pain: Qualifiers: Chest pain type: chest pain on breathing Qualified Code(s): R07.1 - Chest pain on breathing Status: Acute 50-year-old gentleman admitted with atypical chest pain. He has reproducible chest pain on the chest wall. No further workup is required for this and this should be treated symptomatically. He has known history of cardiomyopathy. He has background of polysubstance abuse. He is currently on methadone. Clinically he looks volume overloaded. I think 40 mg IV b.i.d. Lasix is appropriate right now. Previously he had torsades in the setting of hypokalemia due to diuretics. I think we need to monitor his magnesium and potassium closely. I am increasing his spironolactone to 25 mg. He does not need repeat echocardiography. Potentially can be changed to oral diuretics tomorrow. By our records he is supposed to be on 40 mg twice a day Lasix. I think he should be discharged on 40 mg twice a day Lasix. His compliance to medication is questionable. No inpatient workup required. Thank you for allowing me to participate in the care of your patient. Please feel free to contact me if you have any questions.
[2020-08-31] MEDS: oxyCODONE HCl Immed Release 5 MG TABLET PO ×2 (11:19→23:57)
[2020-08-31 12:14] LABS: Glucose, Whole Blood 264 mg/dL (60-115)
[2020-08-31 12:43] LABS: HIV AB/AG Nonreactive (Nonreactive); HIV Num 1 0.06 S/CO (0.00-0.99)
[2020-08-31 13:01] LABS: SARS COV2 PCR INHOUSE NEGATIVE (Negative)
[2020-08-31] MEDS: Insulin Lispro 100 UNIT/ML 3 ML VIAL SUBCUT (13:30)
[2020-08-31 13:37] LABS: Erythrocyte Sedimentation Rate 87 MM/HR (0-15)
[2020-08-31 16:31] LABS: Glucose, Whole Blood 58 mg/dL (60-115)
[2020-08-31 17:16] LABS: Glucose, Whole Blood 104 mg/dL (60-115)
[2020-08-31 20:49] LABS: Glucose, Whole Blood 128 mg/dL (60-115)
[2020-08-31] MEDS: Montelukast Sodium 10 MG TABLET PO (20:55)
[2020-08-31] MEDS: Atorvastatin Calcium 20 MG TABLET PO (20:56)
[2020-09-01] VITALS (10 sets, daily range): BP systolic 112–124; BP diastolic 73–84; PULSE 63–81; RESP 16–20; TEMP 35.8–37; O2SAT 96–100
--- NOTE | 2020-09-01 | XR_ITS ---
EXAMINATION: XR CHEST CLINICAL INFORMATION: Dyspnea COMPARISON: Previous chest x-rays most recent 08/30/2020 and CTA of the chest from yesterday TECHNIQUE: 2 views of the chest were obtained. FINDINGS: The cardiac silhouette is enlarged. There is pulmonary venous redistribution. There is increased perihilar attenuation questionable for mild pulmonary edema. There is increasing elevation of the right hemidiaphragm. This may represent subpulmonic right pleural effusion. There is a small left pleural effusion. Bony structures are unremarkable. IMPRESSION: CHF. Increasing elevation of the right hemidiaphragm, question representing a subpulmonic right pleural effusion.
[2020-09-01] MEDS: oxyCODONE HCl Immed Release 5 MG TABLET PO (05:41)
[2020-09-01 06:20] LABS: MANUAL DIFF FLAG NO
[2020-09-01 06:42] LABS: Basophils Percent Auto 0.5 % (0-2); Eosinophils Absolute Auto 0.2 X10*3/uL (0.0-0.4); Eosinophils Percent Auto 1.9 % (0-4); Hematocrit 36.2 % (42-52); Hemoglobin 10.8 g/dl (14.0-18.0); Imm Gran Abs Auto 0.02 X10*3/uL (0.00-0.03); Imm Gran Pct Auto 0.3 % (0.0-0.4); Lymphocytes Absolute Auto 1.6 X10*3/uL (1.2-4.9); Lymphocytes Percent Auto 20.6 % (20-40); Mean Corpuscular HGB Conc 29.8 g/dl (31.0-36.0); Mean Platelet Volume 10.1 fL (9.4-12.4); Monocytes Percent Auto 12.8 % (2-11); Neutrophils Absolute Auto 5.1 X10*3/uL (2.0-8.3); Neutrophils Percent Auto 63.9 % (45-73); Platelet Count 316 X10*3/uL (160-400); Red Blood Count 4.16 X10*6/uL (4.60-5.80); Red Cell Distribution Width 18.6 % (11.0-16.0)
[2020-09-01 06:56] LABS: Anion Gap 12 (12-20); Blood Urea Nitrogen 18 mg/dL (9-16); Calcium 8.4 mg/dL (8.4-10.2); Carbon Dioxide 32 mmol/L (22-29); Chloride 92 mmol/L (96-108); Creatinine Clr Calc Pharmacy 84.4; Estimated Glomerular Filt Rate > 60; Glucose Random 160 mg/dL (60-115); Potassium 3.9 mmol/l (3.3-5.1); Sodium 132 mmol/L (135-145)
[2020-09-01 08:09] LABS: Glucose, Whole Blood 155 mg/dL (60-115)
[2020-09-01] MEDS: Gabapentin 100 MG CAPSULE 200 MG PO ×3 (08:31→20:30)
[2020-09-01] MEDS: Furosemide 40 MG/4 ML VIAL IVPUSH ×2 (08:31→18:15)
[2020-09-01] MEDS: Losartan Potassium 25 MG TABLET PO (08:34)
[2020-09-01] MEDS: Famotidine 20 MG TABLET PO ×2 (08:34→20:30)
[2020-09-01] MEDS: Magnesium Oxide 400 MG TABLET PO (08:35)
[2020-09-01] MEDS: carvediloL 6.25 MG TABLET PO ×2 (08:35→20:30)
[2020-09-01] MEDS: Clopidogrel Bisulfate 75 MG TABLET PO (08:35)
[2020-09-01] MEDS: Aspirin Enteric Coated 81 MG TABLET.DR PO (08:35)
[2020-09-01] MEDS: 0.9 % Sodium Chloride Flush 3 ML SYRINGE IVFLUSH ×3 (08:36→23:48)
[2020-09-01] MEDS: Spironolactone 25 MG TABLET PO (08:36)
--- NOTE | 2020-09-01 09:42 | PM.PNPUL ---
Subjective Subjective Principal diagnosis: pleural effusion Interval history: The patient was seen on exam. Still complaining of chest discomfort. He still having shortness shortness of breath. Moderate severity. Has been on diuresis. Hopefully the right-sided effusion has decreased in size. Will follow up with an x-ray. If the effusion is still present will consider thoracentesis. I did review his blood work demonstrating significant elevated sedimentation rate of unclear etiology at this time. Pleuritis is in the differential. Objective Data Labs CBC & Chem 7: 09/01/20 05:35 09/01/20 05:35 Labs: Laboratory Results - last 24 hr 08/31/20 08/31/20 08/31/20 11:23 11:23 11:35 WBC RBC Hgb Hct MCV MCH MCHC RDW Plt Count MPV Immature Gran % (Auto) Neut % (Auto) Lymph % (Auto) Cochran % (Auto) Eos % (Auto) Baso % (Auto) Lymph # (Auto) [place]chran # (Auto) Eos # (Auto) Baso # (Auto) Abs Immat Gran (auto) Absolute Neuts (auto) Absolute Nucleated RBC Nucleated RBC % (auto) ESR 87 H Sodium Potassium Chloride Carbon Dioxide Anion Gap BUN Creatinine Estim Creat Clear Calc Estimated GFR POC Glucose Random Glucose Calcium Coronavirus (PCR) NEGATIVE HIV 1&2 Ab/P24 Ag 4thGn Nonreactive 08/31/20 08/31/20 08/31/20 12:11 16:24 17:06 WBC RBC Hgb Hct MCV MCH MCHC RDW Plt Count MPV Immature Gran % (Auto) Neut % (Auto) Lymph % (Auto) [place] % (Auto) Eos % (Auto) Baso % (Auto) Lymph # (Auto) [place] # (Auto) Eos # (Auto) Baso # (Auto) Abs Immat Gran (auto) Absolute Neuts (auto) Absolute Nucleated RBC Nucleated RBC % (auto) ESR Sodium Potassium Chloride Carbon Dioxide Anion Gap BUN Creatinine Estim Creat Clear Calc Estimated GFR POC Glucose 264 H 58 L* 104 Random Glucose Calcium Coronavirus (PCR) HIV 1&2 Ab/P24 Ag 4thGn 08/31/20 09/01/20 09/01/20 20:42 05:35 05:35 WBC 8.0 RBC 4.16 L Hgb 10.8 L Hct 36.2 L MCV 87.0 MCH 26.0 L MCHC 29.8 L RDW 18.6 H Plt Count 316 MPV 10.1 Immature Gran % (Auto) 0.3 Neut % (Auto) 63.9 Lymph % (Auto) 20.6 [place] % (Auto) 12.8 H Eos % (Auto) 1.9 Baso % (Auto) 0.5 Lymph # (Auto) 1.6 [place] # (Auto) 1.0 Eos # (Auto) 0.2 Baso # (Auto) 0.0 Abs Immat Gran (auto) 0.02 Absolute Neuts (auto) 5.1 Absolute Nucleated RBC 0.000 Nucleated RBC % (auto) 0.0 ESR Sodium 132 L Potassium 3.9 Chloride 92 L Carbon Dioxide 32 H Anion Gap 12 BUN 18 H Creatinine 0.88 Estim Creat Clear Calc 84.4 Estimated GFR > 60 POC Glucose 128 H Random Glucose 160 H Calcium 8.4 Coronavirus (PCR) HIV 1&2 Ab/P24 Ag 4thGn 09/01/20 08:06 WBC RBC Hgb Hct MCV MCH MCHC RDW Plt Count MPV Immature Gran % (Auto) Neut % (Auto) Lymph % (Auto) [place] % (Auto) Eos % (Auto) Baso % (Auto) Lymph # (Auto) [place] # (Auto) Eos # (Auto) Baso # (Auto) Abs Immat Gran (auto) Absolute Neuts (auto) Absolute Nucleated RBC Nucleated RBC % (auto) ESR Sodium Potassium Chloride Carbon Dioxide Anion Gap BUN Creatinine Estim Creat Clear Calc Estimated GFR POC Glucose 155 H Random Glucose Calcium Coronavirus (PCR) HIV 1&2 Ab/P24 Ag 4thGn Review of Systems Constitutional: Denies night sweats Denies change in voice, Denies lip swelling, Denies mouth pain, Reports nasal congestion, Reports nasal discharge and Denies tongue swelling Cardiovascular: Denies chest pain Respiratory: Reports cough Gastrointestinal: Denies abdominal pain Musculoskeletal: Denies no additional musculoskeletal complaints Denies Neuro-related abnormal movements Psychiatric: Denies no additional psychiatric complaints Hematologic/Lymphatic: Denies easy bleeding and Denies lymphadenopathy Allergic/Immunologic: Denies lip swelling and Denies tongue swelling Physical Exam Vital Signs: Vital Signs: Vital Signs Temp Pulse Resp BP Pulse Ox 09/01/20 08:36 81 121/84 09/01/20 08:35 81 121/84 09/01/20 08:34 81 121/84 09/01/20 08:16 97.2 F 81 18 121/84 96 09/01/20 03:46 98.6 F 69 18 117/77 100 08/31/20 23:55 98.6 F 71 18 114/73 98 08/31/20 19:23 97.3 F 71 20 118/79 99 08/31/20 15:09 96.9 F 70 20 138/87 99 08/31/20 11:28 97.5 F 74 20 145/89 H 100 Body Mass Index 21.6 Const: General: alert HENMT: General nose exam: Abnormal external nose present and Nasal discharge present Eyes: Pupils: Equal, round and reactive pupils present Neck: Neck: Yes normal visual inspection, Yes full ROM and Yes no lymphadenopathy Chest: Chest palpation & inspection: normal inspection of the chest Resp: Auscultation: diminished lung sounds Cardio: Rate: regular rate Rhythm: regular rhythm Heart sounds: S1 normal heart sound present and S2 normal heart sound present GI: Palpation (GI): nontender Auscultation: normal bowel sounds : General: Yes no CVA tenderness Back/Spine/Pelvis: Back: no CVA tenderness Skin: General skin exam: rashes and/or lesions noted Neuro: Cranial nerves: Yes Equal, round and reactive pupils present Assessment and Plan Assessment and plan (1) COPD (chronic obstructive pulmonary disease): Status: Acute (2) Chest pain: Status: Acute (3) Pleural effusion on right: Problem details: likely related to transudative process due to his cardiomyopathy. This effusion has been present now since about a year ago, but, progressively getting worse. Does have some areas of atelectasis. Status: Acute Time Spent With Patient Time: Total time spent is greater than 50% in coordination of care (as documented) at patient's floor/unit and/or counseling patient: Time with patient: 15 - 24 minutes
--- NOTE | 2020-09-01 10:18 | HO.PM.IMPN ---
Subjective Subjective Date of Service: 09/01/20 Interval History: Seen in follow up for CHF exacerbation and Pleural effusion and some rib pain Review of Systems Gen: no fever Resp: SOB card: swelling legs Physical Exam Vital Signs: Vital Signs: Vital Signs Temp Pulse Resp BP Pulse Ox 09/01/20 08:36 81 121/84 09/01/20 08:35 81 121/84 09/01/20 08:34 81 121/84 09/01/20 08:16 97.2 F 81 18 121/84 96 09/01/20 03:46 98.6 F 69 18 117/77 100 08/31/20 23:55 98.6 F 71 18 114/73 98 08/31/20 19:23 97.3 F 71 20 118/79 99 08/31/20 15:09 96.9 F 70 20 138/87 99 08/31/20 11:28 97.5 F 74 20 145/89 H 100 Constitutional Awake and Alert, No apparent distress Neck Supple, No lymphadenopathy Cardiovascular RRR, No M/R/G, S1 S2, No S3 S4, pedal omid Respiratory Lungs clear, No respiratory distress Gastrointestinal Non tender, Non-distended Skin No rash Neurological Alert & oriented x3 Psychological Appropriate affect Objective Data Current Medications Generic Name Dose Route Start Last Admin Trade Name Freq PRN Reason Stop Dose Admin Albuterol Sulfate 2.5 mg 08/31/20 06:36 Albuterol Sulfate (0.083%) 2.5 Mg/3 Ml Vial.Neb INHALE Q4H PRN Shortness Of Breath Or Wheezin Aspirin 81 mg 08/31/20 09:00 09/01/20 08:35 Aspirin Enteric Coated 81 Mg Tablet.Dr PO 81 mg DAILY VENTURA Administration Atorvastatin Calcium 20 mg 08/31/20 21:00 08/31/20 20:56 Atorvastatin Calcium 20 Mg Tablet PO 20 mg BEDTIME VENTURA Administration Carvedilol 6.25 mg 08/31/20 09:00 09/01/20 08:35 Carvedilol 6.25 Mg Tablet PO 6.25 mg BID VENTURA Administration Protocol Clopidogrel Bisulfate 75 mg 08/31/20 09:00 09/01/20 08:35 Clopidogrel Bisulfate 75 Mg Tablet PO 75 mg DAILY VENTURA Administration Famotidine 20 mg 08/31/20 09:00 09/01/20 08:34 Famotidine 20 Mg Tablet PO 20 mg BID COUNTS INCLUDE 234 BEDS AT THE [facility] Administration Furosemide 40 mg 08/31/20 17:00 09/01/20 08:31 Furosemide 40 Mg/4 Ml Vial IVPUSH 40 mg BID@0800,1700 COUNTS INCLUDE 234 BEDS AT THE [facility] Administration Protocol Gabapentin 200 mg 08/31/20 09:00 09/01/20 08:31 Gabapentin 100 Mg Capsule PO 200 mg TID COUNTS INCLUDE 234 BEDS AT THE [facility] Administration Heparin Sodium (Porcine) 5,000 unit 08/31/20 06:36 09/01/20 05:36 Heparin Sodium,Porcine 5,000 Unit/Ml Vial SUBCUT Not Given Q8H COUNTS INCLUDE 234 BEDS AT THE [facility] Insulin Glargine 12 unit 08/31/20 21:00 08/31/20 21:31 Insulin Glargine,Hum.Rec.Anlog 100 Unit/Ml 10 Ml Vial SUBCUT Not Given BEDTIME COUNTS INCLUDE 234 BEDS AT THE [facility] Insulin Human Lispro 5 unit 08/31/20 07:30 09/01/20 08:38 Insulin Lispro 100 Unit/Ml 3 Ml Vial SUBCUT Not Given TIDAC COUNTS INCLUDE 234 BEDS AT THE [facility] Losartan Potassium 25 mg 08/31/20 09:00 09/01/20 08:34 Losartan Potassium 25 Mg Tablet PO 25 mg DAILY COUNTS INCLUDE 234 BEDS AT THE [facility] Administration Protocol Magnesium Oxide 400 mg 08/31/20 09:00 09/01/20 08:35 Magnesium Oxide 400 Mg Tablet PO 400 mg DAILY COUNTS INCLUDE 234 BEDS AT THE [facility] Administration Methadone HCl 50 mg 08/31/20 17:00 09/01/20 08:30 Methadone Hcl 1 Mg/0.1 Ml Oral.Conc PO 50 mg DAILY COUNTS INCLUDE 234 BEDS AT THE [facility] Administration Montelukast Sodium 10 mg 08/31/20 21:00 08/31/20 20:55 Montelukast Sodium 10 Mg Tablet PO 10 mg BEDTIME COUNTS INCLUDE 234 BEDS AT THE [facility] Administration Oxycodone HCl 7.5 mg 09/01/20 09:28 Oxycodone Hcl Immed Release 5 Mg Tablet PO Q4H PRN Pain, Severe (Pain Scale 7-10) Senna 8.6 mg 08/31/20 06:36 Sennosides 8.6 Mg Tablet PO BEDTIME PRN Constipation Sodium Chloride 3 ml 08/31/20 08:00 09/01/20 08:36 0.9 % Sodium Chloride Flush 3 Ml Syringe IVFLUSH 3 ml QSHIFT COUNTS INCLUDE 234 BEDS AT THE [facility] Administration Spironolactone 25 mg 09/01/20 09:00 09/01/20 08:36 Spironolactone 25 Mg Tablet PO 25 mg DAILY VENTURA Administration Protocol Tamsulosin HCl 0.4 mg 08/31/20 09:00 08/31/20 08:47 Tamsulosin Hcl 0.4 Mg Capsule PO 0.4 mg DAILY VENTURA Administration Labs CBC & Chem 7: 09/01/20 05:35 09/01/20 05:35 Assessment and Plan (1) Congestive cardiac failure: Problem details: EF 10% Status: Acute Assessment and Plan: 50-male with CHF EF 10, DM, peripheral vascular s/p Right BKA 1. Acute sysotolic CHF exacerbation.. -continue IV Lasix for at least one more day -continue Aldacton, Coreg, Entresto 2. Pleural effusion likely related to CHF and if persist after diureusis will consider, thoracentesis 3. Diabetes-sliding scale ordered, POC, diabetic diet 4. Peripheral Neuropathy--Gabapentin 5. Ashtma stable.
[2020-09-01] MEDS: Tamsulosin HCL 0.4 MG CAPSULE PO (10:51)
[2020-09-01 11:33] LABS: Glucose, Whole Blood 211 mg/dL (60-115)
--- NOTE | 2020-09-01 11:54 | P.PNCA_ITS ---
Subjective Subjective Principal diagnosis: pleural effusion Interval history: Still complaining of a lot of rib pain. He is saying he is still short of breath and has orthopnea. Chest x-ray done today showing right- sided effusion. Review of Systems Review of Systems Chest pain, dyspnea Yes all other systems are reviewed and are negative Denies Neuro-related abnormal movements Physical Exam Vital Signs: Vital Signs Temp Pulse Resp BP Pulse Ox 09/01/20 08:36 81 121/84 09/01/20 08:35 81 121/84 09/01/20 08:34 81 121/84 09/01/20 08:16 97.2 F 81 18 121/84 96 09/01/20 03:46 98.6 F 69 18 117/77 100 08/31/20 23:55 98.6 F 71 18 114/73 98 08/31/20 19:23 97.3 F 71 20 118/79 99 08/31/20 15:09 96.9 F 70 20 138/87 99 Body Mass Index 21.6 Const Other: GENERAL APPEARANCE: Looks distressed due to rib pain,iIll-appearing. HEENT: unremarkable. HEAD: normocephalic, atraumatic. NECK/THYROID: no carotid bruit, no JVD. SKIN: no suspicious lesions, warm and dry. HEART: no murmurs, regular rate and rhythm, S1, S2 normal. LUNGS: clear to auscultation bilaterally. ABDOMEN: normal, bowel sounds present, soft, nontender, nondistended. EXTREMITIES: no clubbing, cyanosis, or edema. right-sided above-knee amputation with dressing. PERIPHERAL PULSES: equal. NEUROLOGIC: nonfocal, alert and oriented. PSYCH: Depressed. Results Labs and Meds Result diagrams: 09/01/20 05:35 09/01/20 05:35 Lab results: Laboratory Results - last 24 hr 08/31/20 08/31/20 08/31/20 11:23 11:23 11:35 WBC RBC Hgb Hct MCV MCH MCHC RDW Plt Count MPV Immature Gran % (Auto) Neut % (Auto) Lymph % (Auto) [place] % (Auto) Eos % (Auto) Baso % (Auto) Lymph # (Auto) [place] # (Auto) Eos # (Auto) Baso # (Auto) Abs Immat Gran (auto) Absolute Neuts (auto) Absolute Nucleated RBC Nucleated RBC % (auto) ESR 87 H Sodium Potassium Chloride Carbon Dioxide Anion Gap BUN Creatinine Estim Creat Clear Calc Estimated GFR POC Glucose Random Glucose Calcium Coronavirus (PCR) NEGATIVE HIV 1&2 Ab/P24 Ag 4thGn Nonreactive 08/31/20 08/31/20 08/31/20 12:11 16:24 17:06 WBC RBC Hgb Hct MCV MCH MCHC RDW Plt Count MPV Immature Gran % (Auto) Neut % (Auto) Lymph % (Auto) [place] % (Auto) Eos % (Auto) Baso % (Auto) Lymph # (Auto) [place] # (Auto) Eos # (Auto) Baso # (Auto) Abs Immat Gran (auto) Absolute Neuts (auto) Absolute Nucleated RBC Nucleated RBC % (auto) ESR Sodium Potassium Chloride Carbon Dioxide Anion Gap BUN Creatinine Estim Creat Clear Calc Estimated GFR POC Glucose 264 H 58 L* 104 Random Glucose Calcium Coronavirus (PCR) HIV 1&2 Ab/P24 Ag 4thGn 08/31/20 09/01/20 09/01/20 20:42 05:35 05:35 WBC 8.0 RBC 4.16 L Hgb 10.8 L Hct 36.2 L MCV 87.0 MCH 26.0 L MCHC 29.8 L RDW 18.6 H Plt Count 316 MPV 10.1 Immature Gran % (Auto) 0.3 Neut % (Auto) 63.9 Lymph % (Auto) 20.6 [place] % (Auto) 12.8 H Eos % (Auto) 1.9 Baso % (Auto) 0.5 Lymph # (Auto) 1.6 [place] # (Auto) 1.0 Eos # (Auto) 0.2 Baso # (Auto) 0.0 Abs Immat Gran (auto) 0.02 Absolute Neuts (auto) 5.1 Absolute Nucleated RBC 0.000 Nucleated RBC % (auto) 0.0 ESR Sodium 132 L Potassium 3.9 Chloride 92 L Carbon Dioxide 32 H Anion Gap 12 BUN 18 H Creatinine 0.88 Estim Creat Clear Calc 84.4 Estimated GFR > 60 POC Glucose 128 H Random Glucose 160 H Calcium 8.4 Coronavirus (PCR) HIV 1&2 Ab/P24 Ag 4thGn 09/01/20 09/01/20 08:06 11:27 WBC RBC Hgb Hct MCV MCH MCHC RDW Plt Count MPV Immature Gran % (Auto) Neut % (Auto) Lymph % (Auto) [place] % (Auto) Eos % (Auto) Baso % (Auto) Lymph # (Auto) [place] # (Auto) Eos # (Auto) Baso # (Auto) Abs Immat Gran (auto) Absolute Neuts (auto) Absolute Nucleated RBC Nucleated RBC % (auto) ESR Sodium Potassium Chloride Carbon Dioxide Anion Gap BUN Creatinine Estim Creat Clear Calc Estimated GFR POC Glucose 155 H 211 H Random Glucose Calcium Coronavirus (PCR) HIV 1&2 Ab/P24 Ag 4thGn Progress Note: A&P Assessment and plan (1) Congestive cardiac failure: Problem details: EF 10% Status: Acute (2) Chest pain: Status: Acute (3) Pleural effusion on right: Problem details: likely related to transudative process due to his cardiomyopathy. This effusion has been present now since about a year ago, but, progressively getting worse. Does have some areas of atelectasis. Status: Acute Assessment and Plan: 50-year-old gentleman with known cardiomyopathy and EF 20% and chronic chest pains. He has atypical chest pain which is clearly reproducible over the ribs. He has been on methadone because of previous substance abuse history. Yesterday he was volume overloaded and was diuresed with 40 mg IV b.i.d. Lasix. Today I do not see any evidence of JVD or hepatojugular reflux. I think he can be changed to oral diuretics. I think he should be changed to 80 mg Lasix in the morning and 40 in the afternoon. He needs close monitoring of his potassium and magnesium as he previously had torsades when he became hypokalemic. Chest pain is quite atypical and does not require any further testing. No other recommendations right now. Signing off. Thank you for allowing me to participate in the care of your patient. Please feel free to contact me if you have any questions. Fall Risk Details Current Medications: Current Medications Generic Name Dose Route Start Last Admin Trade Name Freq PRN Reason Stop Dose Admin Albuterol Sulfate 2.5 mg 08/31/20 06:36 Albuterol Sulfate (0.083%) 2.5 Mg/3 Ml Vial.Neb INHALE Q4H PRN Shortness Of Breath Or Wheezin Aspirin 81 mg 08/31/20 09:00 09/01/20 08:35 Aspirin Enteric Coated 81 Mg Tablet. PO 81 mg DAILY [facility] Administration Atorvastatin Calcium 20 mg 08/31/20 21:00 08/31/20 20:56 Atorvastatin Calcium 20 Mg Tablet PO 20 mg BEDTIME [facility] Administration Carvedilol 6.25 mg 08/31/20 09:00 09/01/20 08:35 Carvedilol 6.25 Mg Tablet PO 6.25 mg BID [facility] Administration Protocol Clopidogrel Bisulfate 75 mg 08/31/20 09:00 09/01/20 08:35 Clopidogrel Bisulfate 75 Mg Tablet PO 75 mg DAILY [facility] Administration Famotidine 20 mg 08/31/20 09:00 09/01/20 08:34 Famotidine 20 Mg Tablet PO 20 mg BID [facility] Administration Furosemide 40 mg 08/31/20 17:00 09/01/20 08:31 Furosemide 40 Mg/4 Ml Vial IVPUSH 40 mg BID@0800,1700 [facility] Administration Protocol Gabapentin 200 mg 08/31/20 09:00 09/01/20 08:31 Gabapentin 100 Mg Capsule PO 200 mg TID [facility] Administration Heparin Sodium (Porcine) 5,000 unit 08/31/20 06:36 09/01/20 05:36 Heparin Sodium,Porcine 5,000 Unit/Ml Vial SUBCUT Not Given Q8H [facility] Insulin Glargine 12 unit 08/31/20 21:00 08/31/20 21:31 Insulin Glargine,Hum.Rec.Anlog 100 Unit/Ml 10 Ml Vial SUBCUT Not Given BEDTIME [facility] Insulin Human Lispro 5 unit 08/31/20 07:30 09/01/20 08:38 Insulin Lispro 100 Unit/Ml 3 Ml Vial SUBCUT Not Given TIDAC [facility] Losartan Potassium 25 mg 08/31/20 09:00 09/01/20 08:34 Losartan Potassium 25 Mg Tablet PO 25 mg DAILY [facility] Administration Protocol Magnesium Oxide 400 mg 08/31/20 09:00 09/01/20 08:35 Magnesium Oxide 400 Mg Tablet PO 400 mg DAILY [facility] Administration Methadone HCl 50 mg 08/31/20 17:00 09/01/20 08:30 Methadone Hcl 1 Mg/0.1 Ml Oral.Conc PO 50 mg DAILY [facility] Administration Montelukast Sodium 10 mg 08/31/20 21:00 08/31/20 20:55 Montelukast Sodium 10 Mg Tablet PO 10 mg BEDTIME [facility] Administration Oxycodone HCl 7.5 mg 09/01/20 09:28 Oxycodone Hcl Immed Release 5 Mg Tablet PO Q4H PRN Pain, Severe (Pain Scale 7-10) Senna 8.6 mg 08/31/20 06:36 Sennosides 8.6 Mg Tablet PO BEDTIME PRN Constipation Sodium Chloride 3 ml 08/31/20 08:00 09/01/20 08:36 0.9 % Sodium Chloride Flush 3 Ml Syringe IVFLUSH 3 ml QSHIFT [facility] Administration Spironolactone 25 mg 09/01/20 09:00 09/01/20 08:36 Spironolactone 25 Mg Tablet PO 25 mg DAILY [facility] Administration Protocol Tamsulosin HCl 0.4 mg 08/31/20 09:00 09/01/20 10:51 Tamsulosin Hcl 0.4 Mg Capsule PO 0.4 mg DAILY [facility] Administration Time Spent With Patient Time: Total time spent is greater than 50% in coordination of care (as documented) at patient's floor/unit and/or counseling patient: Time with patient: less than 15 minutes
--- NOTE | 2020-09-01 11:56 | P.PNIM_ITS ---
Subjective Subjective Date of Service: 09/01/20 Interval History: Seen in follow up for back spasm, back pain Review of Systems Back pain--chronic Back spasm No fever or chills Physical Exam Vital Signs: Vital Signs: Vital Signs Temp Pulse Resp BP Pulse Ox 09/01/20 08:36 81 121/84 09/01/20 08:35 81 121/84 09/01/20 08:34 81 121/84 09/01/20 08:16 97.2 F 81 18 121/84 96 09/01/20 03:46 98.6 F 69 18 117/77 100 08/31/20 23:55 98.6 F 71 18 114/73 98 08/31/20 19:23 97.3 F 71 20 118/79 99 08/31/20 15:09 96.9 F 70 20 138/87 99 Body Mass Index 21.6 Objective Data Current Medications Generic Name Dose Route Start Last Admin Trade Name Freq PRN Reason Stop Dose Admin Albuterol Sulfate 2.5 mg 08/31/20 06:36 Albuterol Sulfate (0.083%) 2.5 Mg/3 Ml Vial.Neb INHALE Q4H PRN Shortness Of Breath Or Wheezin Aspirin 81 mg 08/31/20 09:00 09/01/20 08:35 Aspirin Enteric Coated 81 Mg Tablet.Dr PO 81 mg DAILY [facility] Administration Atorvastatin Calcium 20 mg 08/31/20 21:00 08/31/20 20:56 Atorvastatin Calcium 20 Mg Tablet PO 20 mg BEDTIME [facility] Administration Carvedilol 6.25 mg 08/31/20 09:00 09/01/20 08:35 Carvedilol 6.25 Mg Tablet PO 6.25 mg BID [facility] Administration Protocol Clopidogrel Bisulfate 75 mg 08/31/20 09:00 09/01/20 08:35 Clopidogrel Bisulfate 75 Mg Tablet PO 75 mg DAILY [facility] Administration Famotidine 20 mg 08/31/20 09:00 09/01/20 08:34 Famotidine 20 Mg Tablet PO 20 mg BID [facility] Administration Furosemide 40 mg 08/31/20 17:00 09/01/20 08:31 Furosemide 40 Mg/4 Ml Vial IVPUSH 40 mg BID@0800,1700 [facility] Administration Protocol Gabapentin 200 mg 08/31/20 09:00 09/01/20 08:31 Gabapentin 100 Mg Capsule PO 200 mg TID [facility] Administration Heparin Sodium (Porcine) 5,000 unit 08/31/20 06:36 09/01/20 05:36 Heparin Sodium,Porcine 5,000 Unit/Ml Vial SUBCUT Not Given Q8H [facility] Insulin Glargine 12 unit 08/31/20 21:00 08/31/20 21:31 Insulin Glargine,Hum.Rec.Anlog 100 Unit/Ml 10 Ml Vial SUBCUT Not Given BEDTIME [facility] Insulin Human Lispro 5 unit 08/31/20 07:30 09/01/20 08:38 Insulin Lispro 100 Unit/Ml 3 Ml Vial SUBCUT Not Given TIDAC [facility] Losartan Potassium 25 mg 08/31/20 09:00 09/01/20 08:34 Losartan Potassium 25 Mg Tablet PO 25 mg DAILY [facility] Administration Protocol Magnesium Oxide 400 mg 08/31/20 09:00 09/01/20 08:35 Magnesium Oxide 400 Mg Tablet PO 400 mg DAILY [facility] Administration Methadone HCl 50 mg 08/31/20 17:00 09/01/20 08:30 Methadone Hcl 1 Mg/0.1 Ml Oral.Conc PO 50 mg DAILY [facility] Administration Montelukast Sodium 10 mg 08/31/20 21:00 08/31/20 20:55 Montelukast Sodium 10 Mg Tablet PO 10 mg BEDTIME [facility] Administration Oxycodone HCl 7.5 mg 09/01/20 09:28 Oxycodone Hcl Immed Release 5 Mg Tablet PO Q4H PRN Pain, Severe (Pain Scale 7-10) Senna 8.6 mg 08/31/20 06:36 Sennosides 8.6 Mg Tablet PO BEDTIME PRN Constipation Sodium Chloride 3 ml 08/31/20 08:00 09/01/20 08:36 0.9 % Sodium Chloride Flush 3 Ml Syringe IVFLUSH 3 ml QSHIFT [facility] Administration Spironolactone 25 mg 09/01/20 09:00 09/01/20 08:36 Spironolactone 25 Mg Tablet PO 25 mg DAILY [facility] Administration Protocol Tamsulosin HCl 0.4 mg 08/31/20 09:00 09/01/20 10:51 Tamsulosin Hcl 0.4 Mg Capsule PO 0.4 mg DAILY [facility] Administration Labs CBC & Chem 7: 09/04/20 05:44 09/04/20 05:44 Assessment and Plan (1) Congestive cardiac failure: Status: Acute (2) GERD (gastroesophageal reflux disease): Status: Acute Assessment and Plan: 50-male with CHF EF 10, DM, peripheral vascular s/p Right BKA 1. Acute sysotolic CHF exacerbation.. -continue IV Lasix for at least one more day -continue Aldacton, Coreg, Entresto 2. Pleural effusion likely related to CHF and if persist after diureusis will consider, thoracentesis 3. Diabetes-sliding scale ordered, POC, diabetic diet 4. Peripheral Neuropathy--Gabapentin 5. Ashtma stable.
--- NOTE | 2020-09-01 16:03 | MHC.CM.PN ---
CHRISTIAN [facility] will be providing Methadone at home. 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
[2020-09-01 16:16] LABS: Glucose, Whole Blood 173 mg/dL (60-115)
[2020-09-01] MEDS: oxyCODONE HCl Immed Release 5 MG TABLET 7.5 MG PO ×2 (16:16→20:28)
[2020-09-01] MEDS: Atorvastatin Calcium 20 MG TABLET PO (20:30)
[2020-09-01] MEDS: Montelukast Sodium 10 MG TABLET PO (20:30)
[2020-09-01 21:04] LABS: Glucose, Whole Blood 216 mg/dL (60-115)
[2020-09-01] MEDS: Insulin Lispro 100 UNIT/ML 3 ML VIAL SUBCUT (21:08)
[2020-09-01] MEDS: Insulin Glargine,Hum.rec.anlog 100 UNIT/ML 10 ML VIAL 12 UNIT SUBCUT (21:09)
[2020-09-01] MEDS: Heparin Sodium,Porcine 5,000 UNIT/ML VIAL 5000 UNIT SUBCUT (21:37)
[2020-09-02] VITALS (7 sets, daily range): BP systolic 115–138; BP diastolic 68–89; PULSE 56–70; RESP 18; TEMP 36.3–36.8; O2SAT 96–100; BMI 27.0
--- NOTE | 2020-09-02 | XR_ITS ---
EXAMINATION: XR CHEST CLINICAL INFORMATION: Pleural effusion COMPARISON: September 01, 2020 and August 31, 2020 TECHNIQUE: 2 views of the chest were obtained. FINDINGS: There is elevation of the right hemidiaphragm. There is basilar disease at the right base. There is hazy density about the posterior aspect of the right hemithorax consistent with small to moderate pleural effusion. No pneumothorax is identified. Left hemithorax unremarkable. The cardiopericardial silhouette is enlarged. No evidence of pulmonary edema. IMPRESSION: Essentially stable appearance of the chest with elevation of the right hemidiaphragm, right base disease, and right pleural effusion.
[2020-09-02 07:37] LABS: Glucose, Whole Blood 108 mg/dL (60-115)
[2020-09-02] MEDS: Aspirin Enteric Coated 81 MG TABLET.DR PO (07:47)
[2020-09-02] MEDS: Gabapentin 100 MG CAPSULE 200 MG PO ×3 (07:47→20:25)
[2020-09-02] MEDS: Magnesium Oxide 400 MG TABLET PO (07:47)
[2020-09-02] MEDS: oxyCODONE HCl Immed Release 5 MG TABLET 7.5 MG PO ×2 (07:48→16:19)
[2020-09-02] MEDS: carvediloL 6.25 MG TABLET PO ×2 (07:49→20:25)
[2020-09-02] MEDS: Furosemide 40 MG/4 ML VIAL IVPUSH ×2 (07:49→16:20)
[2020-09-02] MEDS: Spironolactone 25 MG TABLET PO (07:49)
[2020-09-02] MEDS: Tamsulosin HCL 0.4 MG CAPSULE PO (07:49)
[2020-09-02] MEDS: Famotidine 20 MG TABLET PO ×2 (07:49→20:24)
[2020-09-02] MEDS: Losartan Potassium 25 MG TABLET PO (07:49)
[2020-09-02] MEDS: Clopidogrel Bisulfate 75 MG TABLET PO (07:49)
[2020-09-02] MEDS: 0.9 % Sodium Chloride Flush 3 ML SYRINGE IVFLUSH ×3 (07:50→22:25)
--- NOTE | 2020-09-02 08:46 | P.PNPL_ITS ---
Subjective Subjective Principal diagnosis: pleural effusion Interval history: The patient was seen on exam. He states that he has been diuresing a lot. She still having some chest discomfort. Primarily pleuritic. This appears to be something chronic for him. I did review the x-ray that he had yesterday demonstrating now and elevation of his right hemidiaphragm. He states that liam use of the pain he has not been able to take a deep breath. It appears that the effusion is improved. Objective Data Labs CBC & Chem 7: 09/01/20 05:35 09/01/20 05:35 Labs: Laboratory Results - last 24 hr 09/01/20 09/01/20 09/01/20 11:27 15:48 21:01 POC Glucose 211 H 173 H 216 H 09/02/20 07:28 POC Glucose 108 Review of Systems Constitutional: Denies night sweats Denies change in voice, Denies lip swelling, Denies mouth pain, Reports nasal congestion, Reports nasal discharge and Denies tongue swelling Cardiovascular: Reports chest pain and Reports dyspnea Respiratory: Reports cough, Reports pain on inspiration and Reports dyspnea Gastrointestinal: Denies abdominal pain Musculoskeletal: Reports no additional musculoskeletal complaints and Reports j oint swelling Denies Neuro-related abnormal movements Psychiatric: Denies no additional psychiatric complaints Hematologic/Lymphatic: Denies easy bleeding and Denies lymphadenopathy Allergic/Immunologic: Denies lip swelling and Denies tongue swelling Physical Exam Vital Signs: Vital Signs: Vital Signs Temp Pulse Resp BP Pulse Ox 09/02/20 07:01 97.9 F 70 18 122/83 100 09/02/20 04:00 98.2 F 67 18 138/68 96 09/01/20 23:37 98.6 F 63 20 119/77 100 09/01/20 20:30 70 124/78 09/01/20 19:39 97.6 F 69 18 121/75 100 09/01/20 15:46 97.6 F 64 16 112/73 100 09/01/20 12:10 96.5 F L 78 18 118/78 98 Body Mass Index 27.0 Const: General: alert HENMT: General nose exam: Abnormal external nose present and Nasal discharge present Eyes: Pupils: Equal, round and reactive pupils present Neck: Neck: Yes normal visual inspection, Yes full ROM and Yes no lymphadenopathy Chest: Chest palpation & inspection: normal inspection of the chest Resp: Auscultation: diminished lung sounds Cardio: Rate: regular rate Rhythm: regular rhythm Heart sounds: S1 normal heart sound present and S2 normal heart sound present GI: Palpation (GI): Soft to palpation and nontender Auscultation: normal bowel sounds : General: Yes no CVA tenderness Back/Spine/Pelvis: Back: no CVA tenderness Skin: General skin exam: rashes and/or lesions noted Neuro: Cranial nerves: Yes Equal, round and reactive pupils present Extrem: Right lower extremity: lower leg ( amputation, dressing clean dry and intact) Assessment and Plan Assessment and plan (1) Chest pain: Status: Acute Assessment and Plan: will treat with Lidoderm patch in addition to Toradol x1 in hopes that he can have some relief the chest discomfort be able to take a deep breath to get an appropriate chest x-ray (2) COPD (chronic obstructive pulmonary disease): Status: Acute Assessment and Plan: Continue respiratory therapy would benefit from outpatient follow-up (3) Pleural effusion on right: Problem details: likely related to transudative process due to his cardiomyopathy. This effusion has been present now since about a year ago, but, progressively getting worse. Does have some areas of atelectasis. Status: Acute Assessment and Plan: appears to be improved in the last x-ray. I will repeated today hopefully can expand his lungs better. My suspicion is that the diuresis will help clear up some of the effusion. If the x-rays no better than thoracentesis will be warranted. Time Spent With Patient Time: Total time spent is greater than 50% in coordination of care (as documented) at patient's floor/unit and/or counseling patient: Time with patient: 15 - 24 minutes
[2020-09-02 11:33] LABS: Glucose, Whole Blood 172 mg/dL (60-115)
[2020-09-02] MEDS: Ketorolac Tromethamine 30 MG/ML VIAL IM (11:43)
[2020-09-02] MEDS: Insulin Lispro 100 UNIT/ML 3 ML VIAL SUBCUT (11:44)
[2020-09-02] MEDS: Lidocaine 4 % Patch ADH..PATCH 1 PATCH TRANSDERMA (11:44)
--- NOTE | 2020-09-02 12:50 | MHC.CM.PN ---
Patient's goal for dc is to return home with [facility], who will deliver Methadone to Patient's home. CM will continue to follow.
[2020-09-02] MEDS: Albuterol Sulfate (0.083%) 2.5 MG/3 ML VIAL.NEB INHALE (13:15)
--- NOTE | 2020-09-02 14:07 | HO.PM.IMPN ---
Subjective Subjective Date of Service: 09/02/20 Interval History: the patient was seen and evaluated this morning Laying in bed, feels comfortable Denies any fever, chills Still complaining of mild shortness of breath, chest pain with deep breath No reported other overnight events. Physical Exam Vital Signs: Vital Signs: Vital Signs Temp Pulse Resp BP Pulse Ox 09/02/20 11:29 97.6 F 56 18 118/75 100 09/02/20 07:01 97.9 F 70 18 122/83 100 09/02/20 04:00 98.2 F 67 18 138/68 96 09/01/20 23:37 98.6 F 63 20 119/77 100 09/01/20 20:30 70 124/78 09/01/20 19:39 97.6 F 69 18 121/75 100 09/01/20 15:46 97.6 F 64 16 112/73 100 Body Mass Index 27.0 Const: General: cooperative and comfortable Orientation/consciousness: patient oriented x3 HENMT: Head: Yes normal to inspection Eyes: General: appearance normal, both eyes and all related structures Neck: Neck: Yes normal visual inspection Chest: Chest palpation & inspection: normal inspection of the chest Breast/axilla palpation: other Resp: tactile fremitus present: other (decreased breath sounds in the right lower lung field) Cardio: Rate: regular rate Rhythm: regular rhythm Heart sounds: S1 normal heart sound present and S2 normal heart sound present GI: Inspection: Yes normal to inspection Skin: General skin exam: no rashes or lesions noted Neuro: General: patient oriented x3 Extrem: General: Yes other (ABI CORONADO) Psych: Appearance: grossly normal Objective Data Current Medications Generic Name Dose Route Start Last Admin Trade Name Freq PRN Reason Stop Dose Admin Albuterol Sulfate 2.5 mg 08/31/20 06:36 09/02/20 13:15 Albuterol Sulfate (0.083%) 2.5 Mg/3 Ml Vial.Neb INHALE 2.5 mg Q4H PRN Administration Shortness Of Breath Or Wheezin Aspirin 81 mg 08/31/20 09:00 09/02/20 07:47 Aspirin Enteric Coated 81 Mg Tablet.Dr PO 81 mg DAILY [facility] Administration Atorvastatin Calcium 20 mg 08/31/20 21:00 09/01/20 20:30 Atorvastatin Calcium 20 Mg Tablet PO 20 mg BEDTIME [facility] Administration Carvedilol 6.25 mg 08/31/20 09:00 09/02/20 07:49 Carvedilol 6.25 Mg Tablet PO 6.25 mg BID [facility] Administration Protocol Clopidogrel Bisulfate 75 mg 08/31/20 09:00 09/02/20 07:49 Clopidogrel Bisulfate 75 Mg Tablet PO 75 mg DAILY [facility] Administration Famotidine 20 mg 08/31/20 09:00 09/02/20 07:49 Famotidine 20 Mg Tablet PO 20 mg BID [facility] Administration Furosemide 40 mg 08/31/20 17:00 09/02/20 07:49 Furosemide 40 Mg/4 Ml Vial IVPUSH 40 mg BID@0800,1700 [facility] Administration Protocol Gabapentin 200 mg 08/31/20 09:00 09/02/20 07:47 Gabapentin 100 Mg Capsule PO 200 mg TID [facility] Administration Heparin Sodium (Porcine) 5,000 unit 08/31/20 06:36 09/02/20 05:42 Heparin Sodium,Porcine 5,000 Unit/Ml Vial SUBCUT Not Given Q8H [facility] Insulin Glargine 12 unit 08/31/20 21:00 09/01/20 21:09 Insulin Glargine,Hum.Rec.Anlog 100 Unit/Ml 10 Ml Vial SUBCUT 12 unit BEDTIME [facility] Administration Insulin Human Lispro 0 unit 09/01/20 21:00 09/02/20 11:44 Insulin Lispro 100 Unit/Ml 3 Ml Vial SUBCUT 2 unit QIDACHS [facility] Administration Protocol Lidocaine 1 patch 09/02/20 09:00 09/02/20 11:44 Lidocaine 4 % Patch Adh..Patch TRANSDERMA 1 patch DAILY [facility] Administration Protocol Losartan Potassium 25 mg 08/31/20 09:00 09/02/20 07:49 Losartan Potassium 25 Mg Tablet PO 25 mg DAILY [facility] Administration Protocol Magnesium Oxide 400 mg 08/31/20 09:00 09/02/20 07:47 Magnesium Oxide 400 Mg Tablet PO 400 mg DAILY [facility] Administration Methadone HCl 50 mg 08/31/20 17:00 09/02/20 07:49 Methadone Hcl 1 Mg/0.1 Ml Oral.Conc PO 50 mg DAILY [facility] Administration Montelukast Sodium 10 mg 08/31/20 21:00 09/01/20 20:30 Montelukast Sodium 10 Mg Tablet PO 10 mg BEDTIME [facility] Administration Oxycodone HCl 7.5 mg 09/01/20 09:28 09/02/20 07:48 Oxycodone Hcl Immed Release 5 Mg Tablet PO 7.5 mg Q4H PRN Administration Pain, Severe (Pain Scale 7-10) Senna 8.6 mg 08/31/20 06:36 Sennosides 8.6 Mg Tablet PO BEDTIME PRN Constipation Sodium Chloride 3 ml 08/31/20 08:00 09/02/20 07:50 0.9 % Sodium Chloride Flush 3 Ml Syringe IVFLUSH 3 ml QSHIFT [facility] Administration Spironolactone 25 mg 09/01/20 09:00 09/02/20 07:49 Spironolactone 25 Mg Tablet PO 25 mg DAILY [facility] Administration Protocol Tamsulosin HCl 0.4 mg 08/31/20 09:00 09/02/20 07:49 Tamsulosin Hcl 0.4 Mg Capsule PO 0.4 mg DAILY [facility] Administration Labs CBC & Chem 7: 09/01/20 05:35 09/01/20 05:35 Assessment and Plan (1) Congestive cardiac failure: Status: Acute (2) Pleural effusion on right: Status: Acute (3) Diabetes mellitus, type 2: Status: Acute Assessment and Plan: 50-male with PMH of CHF EF 20%, DM, peripheral vascular s/p Right BKA Acute sysotolic CHF exacerbation.. continue IV Lasix for today The start Lasix 80 and 40 twice daily continue Aldacton, Coreg, Entresto Pleural effusion likely related to CHF Repeated CXR showing stable effusion and right basal disease Start incentive spirometry Pulmonology input appreciated, might need thoracentesis Diabetes sliding scale ordered POC, diabetic diet Peripheral Neuropathy Gabapentin Ashtma stable. DVT PPx Heparin SC
[2020-09-02 15:01] LABS: Glucose, Whole Blood 49 mg/dL (60-115)
[2020-09-02 15:23] LABS: Glucose, Whole Blood 65 mg/dL (60-115)
[2020-09-02 15:33] LABS: Glucose, Whole Blood 70 mg/dL (60-115)
[2020-09-02 16:27] LABS: Glucose, Whole Blood 76 mg/dL (60-115)
[2020-09-02 20:04] LABS: Glucose, Whole Blood 93 mg/dL (60-115)
[2020-09-02] MEDS: Atorvastatin Calcium 20 MG TABLET PO (20:24)
[2020-09-02] MEDS: Montelukast Sodium 10 MG TABLET PO (20:26)
[2020-09-02 20:54] LABS: Glucose, Whole Blood 86 mg/dL (60-115)
[2020-09-03] VITALS (8 sets, daily range): BP systolic 102–145; BP diastolic 72–81; PULSE 54–91; RESP 18; TEMP 36.4–37.2; O2SAT 90–100; BMI 25.4
--- NOTE | 2020-09-03 | ECG_ITS ---
Test Reason : chest pain Blood Pressure : / mmHG Vent. Rate : 070 BPM Atrial Rate : 070 BPM P-R Int : 172 ms QRS Dur : 110 ms QT Int : 422 ms P-R-T Axes : 039 -29 137 degrees QTc Int : 455 ms Normal sinus rhythm T wave abnormality, consider lateral ischemia Abnormal ECG No significant changes seen Referred By: Alfred Rodriguez Electronically Signed By:CRISTIAN SU MD
--- NOTE | 2020-09-03 | US_ITS ---
EXAMINATION: ULTRASOUND-GUIDED PARACENTESIS. CLINICAL INFORMATION: Right pleural effusion. COMPARISON: CTA chest 08/30/2020 TECHNIQUE: Following explaining ultrasound-guided right thoracentesis procedure, benefits and risk, a written consent was obtained. Patient was placed upright sitting of ultrasound stretcher and preliminary ultrasound imaging was obtained. An optimal site was selected and marked along the right infrascapular line approximately 10th interspace. The area marked was cleaned and draped in usual sterile manner. 1% lidocaine was injected puncture site. Through a small skin incision a 5 [place] catheter was advanced into pleural space. After observing fluid return, the stylet was withdrawn and catheter connected to vacuum bottle via connecting cannula. After obtaining all fluid and observing no more fluid return, catheter was withdrawn and complete hemostasis achieved. A sterile dressing with ultrasound gestational was placed while withdrawing the catheter making sure no air leaked in. Patient tolerated procedure extremely well. Chest x-ray was to be obtained subsequently. FINDINGS: There is moderate right pleural effusion in upright view. Successful ultrasound-guided right thoracentesis with approximately 1100 mL of fluid was drained from the right pleural space. There are no immediate complications. US/US thoracentesis IMPRESSION: Successful ultrasound-guided right thoracentesis performed with approximately 1100 mL of fluid drained. There were no immediate complications.
--- NOTE | 2020-09-03 | XR_ITS ---
EXAMINATION: XR CHEST CLINICAL INFORMATION: Post right thoracentesis. COMPARISON: Chest 09/02/2020. TECHNIQUE: 2 views of the chest were obtained. FINDINGS: The lungs are well-expanded and clear of acute pneumonic process. There is minimal focal atelectatic changes right lung base. The heart size and pulmonary vascularity is normal. There is no visible pneumothorax. No gross bony abnormality. XR/XR chest 2V IMPRESSION: Post right thoracentesis there is no pneumothorax. There is minimal focal atelectasis right lung base.
[2020-09-03] MEDS: oxyCODONE HCl Immed Release 5 MG TABLET 7.5 MG PO ×4 (02:41→22:49)
[2020-09-03] MEDS: Nitroglycerin 0.4 MG TAB.SUBL SUBLINGUAL (04:18)
--- NOTE | 2020-09-03 04:50 | PC.NURSE ---
pt medicated with prn oxycodone for r sided chest pain radiating to back increased with palpation without relief, md notified, ekg ordered and completed with MD review. new order for nitro 0.4mg sl given with good effect vss.
[2020-09-03 06:21] LABS: MANUAL DIFF FLAG NO
[2020-09-03 06:32] LABS: Basophils Percent Auto 0.5 % (0-2); Eosinophils Absolute Auto 0.1 X10*3/uL (0.0-0.4); Eosinophils Percent Auto 1.1 % (0-4); Hematocrit 37.6 % (42-52); Hemoglobin 11.5 g/dl (14.0-18.0); Imm Gran Abs Auto 0.03 X10*3/uL (0.00-0.03); Imm Gran Pct Auto 0.5 % (0.0-0.4); Lymphocytes Absolute Auto 1.2 X10*3/uL (1.2-4.9); Lymphocytes Percent Auto 18.7 % (20-40); Mean Corpuscular HGB Conc 30.6 g/dl (31.0-36.0); Mean Corpuscular Hemoglobin 25.8 pg (27.0-33.0); Mean Corpuscular Volume 84.5 fL (80-98); Monocytes Absolute Auto 0.6 X10*3/uL (0.1-1.2); Monocytes Percent Auto 9.4 % (2-11); Neutrophils Absolute Auto 4.6 X10*3/uL (2.0-8.3); Neutrophils Percent Auto 69.8 % (45-73); Platelet Count 345 X10*3/uL (160-400); Red Blood Count 4.45 X10*6/uL (4.60-5.80); Red Cell Distribution Width 18.3 % (11.0-16.0); White Blood Count 6.6 X10*3/uL (4.8-10.8)
[2020-09-03 07:00] LABS: B Type Natriuretic Peptide 2910 pg/mL (<100)
[2020-09-03 07:18] LABS: Anion Gap 16 (12-20); Blood Urea Nitrogen 32 mg/dL (9-16); Carbon Dioxide 29 mmol/L (22-29); Chloride 89 mmol/L (96-108); Creatinine Clr Calc Pharmacy 70.2; Estimated Glomerular Filt Rate > 60; Glucose Random 138 mg/dL (60-115); Sodium 129 mmol/L (135-145)
[2020-09-03 07:47] LABS: Glucose, Whole Blood 112 mg/dL (60-115)
[2020-09-03] MEDS: Famotidine 20 MG TABLET PO ×2 (08:16→22:49)
[2020-09-03] MEDS: Furosemide 40 MG/4 ML VIAL IVPUSH (08:16)
[2020-09-03] MEDS: Tamsulosin HCL 0.4 MG CAPSULE PO (08:16)
[2020-09-03] MEDS: Spironolactone 25 MG TABLET PO (08:16)
[2020-09-03] MEDS: Losartan Potassium 25 MG TABLET PO (08:16)
[2020-09-03] MEDS: Magnesium Oxide 400 MG TABLET PO (08:16)
[2020-09-03] MEDS: Gabapentin 100 MG CAPSULE 200 MG PO ×3 (08:16→22:44)
[2020-09-03] MEDS: Clopidogrel Bisulfate 75 MG TABLET PO (08:16)
[2020-09-03] MEDS: Aspirin Enteric Coated 81 MG TABLET.DR PO (08:16)
[2020-09-03] MEDS: 0.9 % Sodium Chloride Flush 3 ML SYRINGE IVFLUSH ×3 (08:17→23:32)
[2020-09-03] MEDS: carvediloL 6.25 MG TABLET PO ×2 (08:17→22:43)
--- NOTE | 2020-09-03 09:11 | PM.PNPUL ---
Subjective Subjective Principal diagnosis: pleural effusion Interval history: the patient was seen on exam. Complaining of worsening right-sided pleuritic discomfort moderate severity. Also having significant nausea and just does not feel well. On examination he does have some crackles on the right base that are new. The x-ray still demonstrates a pleural effusion. At this point with the elevated sedimentation rate, ongoing pain, new crackles and persistent abnormal x-ray will prefer to the thoracentesis as an inpatient. Objective Data Labs CBC & Chem 7: 09/03/20 05:46 09/03/20 05:46 Labs: Laboratory Results - last 24 hr 09/02/20 09/02/20 09/02/20 11:27 14:57 15:19 WBC RBC Hgb Hct MCV MCH MCHC RDW Plt Count MPV Immature Gran % (Auto) Neut % (Auto) Lymph % (Auto) Major % (Auto) Eos % (Auto) Baso % (Auto) Lymph # (Auto) Major # (Auto) Eos # (Auto) Baso # (Auto) Abs Immat Gran (auto) Absolute Neuts (auto) Absolute Nucleated RBC Nucleated RBC % (auto) Sodium Potassium Chloride Carbon Dioxide Anion Gap BUN Creatinine Estim Creat Clear Calc Estimated GFR POC Glucose 172 H 49 L* 65 Random Glucose Calcium B-Natriuretic Peptide 09/02/20 09/02/20 09/02/20 15:30 16:24 20:00 WBC RBC Hgb Hct MCV MCH MCHC RDW Plt Count MPV Immature Gran % (Auto) Neut % (Auto) Lymph % (Auto) Major % (Auto) Eos % (Auto) Baso % (Auto) Lymph # (Auto) Major # (Auto) Eos # (Auto) Baso # (Auto) Abs Immat Gran (auto) Absolute Neuts (auto) Absolute Nucleated RBC Nucleated RBC % (auto) Sodium Potassium Chloride Carbon Dioxide Anion Gap BUN Creatinine Estim Creat Clear Calc Estimated GFR POC Glucose 70 76 93 Random Glucose Calcium B-Natriuretic Peptide 09/02/20 09/03/20 09/03/20 20:44 05:46 05:46 WBC 6.6 RBC 4.45 L Hgb 11.5 L Hct 37.6 L MCV 84.5 MCH 25.8 L MCHC 30.6 L RDW 18.3 H Plt Count 345 MPV 10.0 Immature Gran % (Auto) 0.5 H Neut % (Auto) 69.8 Lymph % (Auto) 18.7 L Major % (Auto) 9.4 Eos % (Auto) 1.1 Baso % (Auto) 0.5 Lymph # (Auto) 1.2 Major # (Auto) 0.6 Eos # (Auto) 0.1 Baso # (Auto) 0.0 Abs Immat Gran (auto) 0.03 Absolute Neuts (auto) 4.6 Absolute Nucleated RBC 0.000 Nucleated RBC % (auto) 0.0 Sodium 129 L Potassium 5.0 D Chloride 89 L Carbon Dioxide 29 Anion Gap 16 BUN 32 H D Creatinine 1.11 Estim Creat Clear Calc 70.2 Estimated GFR > 60 POC Glucose 86 Random Glucose 138 H Calcium 9.0 B-Natriuretic Peptide 09/03/20 09/03/20 05:46 07:43 WBC RBC Hgb Hct MCV MCH MCHC RDW Plt Count MPV Immature Gran % (Auto) Neut % (Auto) Lymph % (Auto) Major % (Auto) Eos % (Auto) Baso % (Auto) Lymph # (Auto) Major # (Auto) Eos # (Auto) Baso # (Auto) Abs Immat Gran (auto) Absolute Neuts (auto) Absolute Nucleated RBC Nucleated RBC % (auto) Sodium Potassium Chloride Carbon Dioxide Anion Gap BUN Creatinine Estim Creat Clear Calc Estimated GFR POC Glucose 112 Random Glucose Calcium B-Natriuretic Peptide 2910 H Review of Systems Constitutional: Denies night sweats Denies change in voice, Denies lip swelling, Denies mouth pain, Reports nasal congestion, Reports nasal discharge and Denies tongue swelling Cardiovascular: Reports chest pain Respiratory: Reports cough, Reports pain on inspiration and Reports pain with cough Gastrointestinal: Denies abdominal pain and Reports nausea Musculoskeletal: Denies no additional musculoskeletal complaints Denies Neuro-related abnormal movements Psychiatric: Denies no additional psychiatric complaints Hematologic/Lymphatic: Denies easy bleeding and Denies lymphadenopathy Allergic/Immunologic: Denies lip swelling and Denies tongue swelling Physical Exam Vital Signs: Vital Signs: Vital Signs Temp Pulse Resp BP Pulse Ox 09/03/20 08:29 97.8 F 68 18 124/76 100 09/03/20 04:18 78 133/79 09/03/20 03:22 67 18 133/79 100 09/02/20 23:59 97.3 F 68 18 115/77 100 09/02/20 20:25 67 122/78 09/02/20 19:15 97.5 F 57 18 122/78 100 09/02/20 15:30 97.9 F 64 18 138/89 98 09/02/20 11:29 97.6 F 56 18 118/75 100 Body Mass Index 25.4 Const: General: alert HENMT: General nose exam: Abnormal external nose present and Nasal discharge present Eyes: Pupils: Equal, round and reactive pupils present Neck: Neck: Yes normal visual inspection, Yes full ROM and Yes no lymphadenopathy Chest: Chest palpation & inspection: normal inspection of the chest Resp: Auscultation: rales on the right in the lower lung larry and diminished lung sounds Cardio: Rate: regular rate Rhythm: regular rhythm Heart sounds: S1 normal heart sound present and S2 normal heart sound present GI: Palpation (GI): Soft to palpation and nontender Auscultation: normal bowel sounds : General: Yes no CVA tenderness Back/Spine/Pelvis: Back: no CVA tenderness Skin: General skin exam: rashes and/or lesions noted Neuro: Cranial nerves: Yes Equal, round and reactive pupils present Assessment and Plan Assessment and plan (1) Chest pain: Problem details: likely pleuritis with an elevated sedimentation rate of 85 Status: Acute (2) COPD (chronic obstructive pulmonary disease): Status: Acute Assessment and Plan: continue respiratory therapy (3) Pleural effusion on right: Status: Acute Assessment and Plan: will recommend ultrasound-guided thoracentesis today please send fluid for light's criteria, pH, cultures, and cytology Time Spent With Patient Time: Total time spent is greater than 50% in coordination of care (as documented) at patient's floor/unit and/or counseling patient: Time with patient: 15 - 24 minutes
[2020-09-03 09:33] LABS: Anti Nuclear Antibody Screen NEGATIVE (NEGATIVE)
[2020-09-03 11:13] LABS: Glucose, Whole Blood 153 mg/dL (60-115)
[2020-09-03 11:29] LABS: INTERNATIONAL NORM RATIO 1.7 (0.9-1.1); Prothrombin Time 20.1 SEC (10.8-13.0)
--- NOTE | 2020-09-03 14:36 | HO.PM.IMPN ---
Subjective Subjective Date of Service: 09/03/20 Interval History: the patient was seen and evaluated this morning Laying in bed, complaining of mild chest pain on the right side of his chest Denies any fever, chills Still complaining of mild shortness of breath, chest pain with deep breath No reported other overnight events. Review of Systems Review of Systems: Yes all other systems are reviewed and are negative Physical Exam Vital Signs: Vital Signs: Vital Signs Temp Pulse Resp BP Pulse Ox 09/03/20 12:21 98.2 F 70 18 120/78 100 09/03/20 08:29 97.8 F 68 18 124/76 100 09/03/20 04:18 78 133/79 09/03/20 03:22 67 18 133/79 100 09/02/20 23:59 97.3 F 68 18 115/77 100 09/02/20 20:25 67 122/78 09/02/20 19:15 97.5 F 57 18 122/78 100 09/02/20 15:30 97.9 F 64 18 138/89 98 Body Mass Index 25.4 Const: General: cooperative and comfortable Orientation/consciousness: patient oriented x3 HENMT: Head: Yes normal to inspection Eyes: General: appearance normal, both eyes and all related structures Neck: Neck: Yes normal visual inspection Chest: Chest palpation & inspection: normal inspection of the chest Breast/axilla palpation: other Resp: tactile fremitus present: other (decreased breath sounds in the right lower lung field) Cardio: Rate: regular rate Rhythm: regular rhythm Heart sounds: S1 normal heart sound present and S2 normal heart sound present GI: Inspection: Yes normal to inspection Skin: General skin exam: no rashes or lesions noted Neuro: General: patient oriented x3 Extrem: General: Yes other (RLE BKA) Psych: Appearance: grossly normal Objective Data Current Medications Generic Name Dose Route Start Last Admin Trade Name Freq PRN Reason Stop Dose Admin Acetaminophen 650 mg 09/03/20 12:19 Acetaminophen 325 Mg Tablet PO Q4H PRN Pain and Fever Albuterol Sulfate 2.5 mg 08/31/20 06:36 09/02/20 13:15 Albuterol Sulfate (0.083%) 2.5 Mg/3 Ml Vial.Neb INHALE 2.5 mg Q4H PRN Administration Shortness Of Breath Or Wheezin Aspirin 81 mg 08/31/20 09:00 09/03/20 08:16 Aspirin Enteric Coated 81 Mg Tablet.Dr PO 81 mg DAILY VENTURA Administration Atorvastatin Calcium 20 mg 08/31/20 21:00 09/02/20 20:24 Atorvastatin Calcium 20 Mg Tablet PO 20 mg BEDTIME VENTURA Administration Carvedilol 6.25 mg 08/31/20 09:00 09/03/20 08:17 Carvedilol 6.25 Mg Tablet PO 6.25 mg BID VENTURA Administration Protocol Clopidogrel Bisulfate 75 mg 08/31/20 09:00 09/03/20 08:16 Clopidogrel Bisulfate 75 Mg Tablet PO 75 mg DAILY VENTURA Administration Famotidine 20 mg 08/31/20 09:00 09/03/20 08:16 Famotidine 20 Mg Tablet PO 20 mg BID VENTURA Administration Furosemide 40 mg 08/31/20 17:00 09/03/20 08:16 Furosemide 40 Mg/4 Ml Vial IVPUSH 40 mg BID@0800,1700 [facility] Administration Protocol Gabapentin 200 mg 08/31/20 09:00 09/03/20 08:16 Gabapentin 100 Mg Capsule PO 200 mg TID [facility] Administration Heparin Sodium (Porcine) 5,000 unit 08/31/20 06:36 09/03/20 14:21 Heparin Sodium,Porcine 5,000 Unit/Ml Vial SUBCUT Not Given Q8H [facility] Insulin Glargine 12 unit 08/31/20 21:00 09/02/20 20:39 Insulin Glargine,Hum.Rec.Anlog 100 Unit/Ml 10 Ml Vial SUBCUT Not Given BEDTIME [facility] Insulin Human Lispro 0 unit 09/01/20 21:00 09/03/20 11:26 Insulin Lispro 100 Unit/Ml 3 Ml Vial SUBCUT Not Given QIDACHS [facility] Protocol Lidocaine 1 patch 09/02/20 09:00 09/03/20 08:26 Lidocaine 4 % Patch Adh..Patch TRANSDERMA Not Given DAILY [facility] Protocol Losartan Potassium 25 mg 08/31/20 09:00 09/03/20 08:16 Losartan Potassium 25 Mg Tablet PO 25 mg DAILY VENTURA Administration Protocol Magnesium Oxide 400 mg 08/31/20 09:00 09/03/20 08:16 Magnesium Oxide 400 Mg Tablet PO 400 mg DAILY VENTURA Administration Methadone HCl 50 mg 08/31/20 17:00 09/03/20 10:27 Methadone Hcl 1 Mg/0.1 Ml Oral.Conc PO 50 mg DAILY VENTURA Administration Montelukast Sodium 10 mg 08/31/20 21:00 09/02/20 20:26 Montelukast Sodium 10 Mg Tablet PO 10 mg BEDTIME VENTURA Administration Oxycodone HCl 7.5 mg 09/01/20 09:28 09/03/20 08:15 Oxycodone Hcl Immed Release 5 Mg Tablet PO 7.5 mg Q4H PRN Administration Pain, Severe (Pain Scale 7-10) Senna 8.6 mg 08/31/20 06:36 Sennosides 8.6 Mg Tablet PO BEDTIME PRN Constipation Sodium Chloride 3 ml 08/31/20 08:00 09/03/20 08:17 0.9 % Sodium Chloride Flush 3 Ml Syringe IVFLUSH 3 ml QSHIFT VENTURA Administration Spironolactone 25 mg 09/01/20 09:00 09/03/20 08:16 Spironolactone 25 Mg Tablet PO 25 mg DAILY VENTURA Administration Protocol Tamsulosin HCl 0.4 mg 08/31/20 09:00 09/03/20 08:16 Tamsulosin Hcl 0.4 Mg Capsule PO 0.4 mg DAILY VENTURA Administration Labs CBC & Chem 7: 09/03/20 05:46 09/03/20 05:46 Assessment and Plan (1) Congestive cardiac failure: Status: Acute (2) Pleural effusion on right: Status: Acute (3) Diabetes mellitus, type 2: Status: Acute Assessment and Plan: 50-male with PMH of CHF EF 20%, DM, peripheral vascular s/p Right BKA Acute sysotolic CHF exacerbation.. DC IV Lasix for today The start Lasix 80 and 40 twice daily Monitor intake and output continue [place], Coreg, Entresto Right-sided Pleural effusion likely related to CHF Repeated CXR showing stable effusion and right basal disease Start incentive spirometry Pulmonology input appreciated, to do thoracentesis Pending pleural fluid studies Diabetes sliding scale ordered POC, diabetic diet Peripheral Neuropathy Gabapentin Ashtma stable. DVT PPx Heparin SC
[2020-09-03] MEDS: Acetaminophen 325 MG TABLET 650 MG PO (15:49)
[2020-09-03] MEDS: Furosemide 40 MG TABLET 80 MG PO (15:50)
[2020-09-03] MEDS: Furosemide 40 MG TABLET PO (16:24)
[2020-09-03 16:47] LABS: Glucose, Whole Blood 183 mg/dL (60-115)
[2020-09-03] MEDS: Insulin Lispro 100 UNIT/ML 3 ML VIAL SUBCUT (18:07)
[2020-09-03 21:23] LABS: Glucose, Whole Blood 156 mg/dL (60-115)
[2020-09-03] MEDS: Heparin Sodium,Porcine 5,000 UNIT/ML VIAL 5000 UNIT SUBCUT (22:39)
[2020-09-03] MEDS: Insulin Glargine,Hum.rec.anlog 100 UNIT/ML 10 ML VIAL 12 UNIT SUBCUT (22:43)
[2020-09-03] MEDS: Atorvastatin Calcium 20 MG TABLET PO (22:50)
[2020-09-03] MEDS: Montelukast Sodium 10 MG TABLET PO (23:01)
[2020-09-04 03:24] VITALS: BP 109/71; PULSE 53; RESP 18; TEMP 36.6; O2SAT 100
[2020-09-04] MEDS: oxyCODONE HCl Immed Release 5 MG TABLET 7.5 MG PO ×2 (03:55→12:03)
[2020-09-04 05:49] VITALS: BMI 25.7
[2020-09-04 06:16] LABS: MANUAL DIFF FLAG NO
[2020-09-04 06:29] LABS: Basophils Absolute Auto 0.1 X10*3/uL (0.0-0.2); Basophils Percent Auto 0.5 % (0-2); Eosinophils Absolute Auto 0.1 X10*3/uL (0.0-0.4); Eosinophils Percent Auto 1.4 % (0-4); Hematocrit 42.4 % (42-52); Hemoglobin 13.1 g/dl (14.0-18.0); Imm Gran Abs Auto 0.04 X10*3/uL (0.00-0.03); Imm Gran Pct Auto 0.4 % (0.0-0.4); Lymphocytes Absolute Auto 1.5 X10*3/uL (1.2-4.9); Lymphocytes Percent Auto 15.8 % (20-40); Mean Corpuscular HGB Conc 30.9 g/dl (31.0-36.0); Mean Corpuscular Hemoglobin 25.8 pg (27.0-33.0); Mean Corpuscular Volume 83.6 fL (80-98); Mean Platelet Volume 9.7 fL (9.4-12.4); Monocytes Absolute Auto 1.1 X10*3/uL (0.1-1.2); Monocytes Percent Auto 11.2 % (2-11); Neutrophils Absolute Auto 6.7 X10*3/uL (2.0-8.3); Neutrophils Percent Auto 70.7 % (45-73); Platelet Count 405 X10*3/uL (160-400); Red Blood Count 5.07 X10*6/uL (4.60-5.80); Red Cell Distribution Width 18.9 % (11.0-16.0); White Blood Count 9.5 X10*3/uL (4.8-10.8)
[2020-09-04 06:48] LABS: Anion Gap 15 (12-20); Blood Urea Nitrogen 28 mg/dL (9-16); Calcium 8.7 mg/dL (8.4-10.2); Carbon Dioxide 32 mmol/L (22-29); Chloride 88 mmol/L (96-108); Creatinine Clr Calc Pharmacy 86.6; Estimated Glomerular Filt Rate > 60; Glucose Random 89 mg/dL (60-115); Potassium 4.6 mmol/l (3.3-5.1); Sodium 130 mmol/L (135-145)
[2020-09-04 08:04] VITALS: BP 109/71; PULSE 53
[2020-09-04] MEDS: Clopidogrel Bisulfate 75 MG TABLET PO (08:04)
[2020-09-04] MEDS: Aspirin Enteric Coated 81 MG TABLET.DR PO (08:04)
[2020-09-04] MEDS: carvediloL 6.25 MG TABLET PO (08:04)
[2020-09-04 08:05] VITALS: BP 109/71; PULSE 53
[2020-09-04] MEDS: Gabapentin 100 MG CAPSULE 200 MG PO ×2 (08:05→15:00)
[2020-09-04] MEDS: Famotidine 20 MG TABLET PO (08:05)
[2020-09-04] MEDS: Spironolactone 25 MG TABLET PO (08:05)
[2020-09-04] MEDS: Tamsulosin HCL 0.4 MG CAPSULE PO (08:05)
[2020-09-04] MEDS: Magnesium Oxide 400 MG TABLET PO (08:05)
[2020-09-04] MEDS: Lidocaine 4 % Patch ADH..PATCH 1 PATCH TRANSDERMA (08:06)
[2020-09-04] MEDS: 0.9 % Sodium Chloride Flush 3 ML SYRINGE IVFLUSH (08:09)
[2020-09-04 08:24] LABS: Glucose, Whole Blood 179 mg/dL (60-115)
--- NOTE | 2020-09-04 09:22 | P.PNPL_ITS ---
Subjective Subjective Principal diagnosis: pleural effusion Interval history: the patient was seen and examined. Underwent a thoracentesis during now 1100 mL approved fluid. The patient did feel better afterwards. However, still continues to complain of bilateral rib pain. It is very tender just to the touch. A lot of it is chronic discomfort for the patient. He has a lot of comorbidities. At this point the patient clinically is doing better and is able to follow up with us as an outpatient to follow up the results of the pleural effusion. he did have a repeat chest x-ray after the thoracentesis. Appears to have still some pulmonary vascular congestion likely from his c ardiac disease. Objective Data Labs CBC & Chem 7: 09/04/20 05:44 09/04/20 05:44 Labs: Laboratory Results - last 24 hr 08/31/20 09/03/20 09/03/20 11:23 10:54 11:09 WBC RBC Hgb Hct MCV MCH MCHC RDW Plt Count MPV Immature Gran % (Auto) Neut % (Auto) Lymph % (Auto) [place] % (Auto) Eos % (Auto) Baso % (Auto) Lymph # (Auto) [place] # (Auto) Eos # (Auto) Baso # (Auto) Abs Immat Gran (auto) Absolute Neuts (auto) Absolute Nucleated RBC Nucleated RBC % (auto) PT 20.1 H INR 1.7 H Sodium Potassium Chloride Carbon Dioxide Anion Gap BUN Creatinine Estim Creat Clear Calc Estimated GFR POC Glucose 153 H Random Glucose Calcium DIANE Screen NEGATIVE DIANE Titer TNP DIANE Pattern TNP 09/03/20 09/03/20 09/04/20 16:44 21:19 05:44 WBC 9.5 RBC 5.07 Hgb 13.1 L Hct 42.4 MCV 83.6 MCH 25.8 L MCHC 30.9 L RDW 18.9 H Plt Count 405 H MPV 9.7 Immature Gran % (Auto) 0.4 Neut % (Auto) 70.7 Lymph % (Auto) 15.8 L [place] % (Auto) 11.2 H Eos % (Auto) 1.4 Baso % (Auto) 0.5 Lymph # (Auto) 1.5 [place] # (Auto) 1.1 Eos # (Auto) 0.1 Baso # (Auto) 0.1 Abs Immat Gran (auto) 0.04 H Absolute Neuts (auto) 6.7 Absolute Nucleated RBC 0.000 Nucleated RBC % (auto) 0.0 PT INR Sodium Potassium Chloride Carbon Dioxide Anion Gap BUN Creatinine Estim Creat Clear Calc Estimated GFR POC Glucose 183 H 156 H Random Glucose Calcium DIANE Screen DIANE Titer DIANE Pattern 09/04/20 09/04/20 05:44 08:21 WBC RBC Hgb Hct MCV MCH MCHC RDW Plt Count MPV Immature Gran % (Auto) Neut % (Auto) Lymph % (Auto) [place] % (Auto) Eos % (Auto) Baso % (Auto) Lymph # (Auto) [place] # (Auto) Eos # (Auto) Baso # (Auto) Abs Immat Gran (auto) Absolute Neuts (auto) Absolute Nucleated RBC Nucleated RBC % (auto) PT INR Sodium 130 L Potassium 4.6 Chloride 88 L Carbon Dioxide 32 H Anion Gap 15 BUN 28 H Creatinine 0.90 Estim Creat Clear Calc 86.6 Estimated GFR > 60 POC Glucose 179 H Random Glucose 89 D Calcium 8.7 DIANE Screen DIANE Titer DIANE Pattern Review of Systems Constitutional: Denies night sweats Denies change in voice, Denies lip swelling, Denies mouth pain, Reports nasal congestion, Reports nasal discharge and Denies tongue swelling Cardiovascular: Reports chest pain and Reports dyspnea Respiratory: Reports cough and Reports dyspnea Gastrointestinal: Denies abdominal pain Musculoskeletal: Reports myalgias, Reports arthralgias, Reports joint swelling and Reports radiating pain into limb Denies Neuro-related abnormal movements Psychiatric: Denies no additional psychiatric complaints Hematologic/Lymphatic: Denies easy bleeding and Denies lymphadenopathy Allergic/Immunologic: Denies lip swelling and Denies tongue swelling Physical Exam Vital Signs: Vital Signs: Vital Signs Temp Pulse Resp BP Pulse Ox 09/04/20 08:05 53 109/71 09/04/20 08:04 53 109/71 09/04/20 03:24 97.9 F 53 18 109/71 100 09/03/20 22:43 91 145/81 H 09/03/20 20:34 98.9 F 91 18 145/81 H 93 09/03/20 20:00 97.9 F 54 18 102/72 100 09/03/20 15:40 97.5 F 66 18 118/77 90 L 09/03/20 12:21 98.2 F 70 18 120/78 100 Body Mass Index 25.7 Const: General: alert HENMT: General nose exam: Abnormal external nose present and Nasal discharge present Eyes: Pupils: Equal, round and reactive pupils present Neck: Neck: Yes normal visual inspection, Yes full ROM and Yes no lymphadenopathy Chest: Chest palpation & inspection: normal inspection of the chest Resp: Auscultation: diminished lung sounds Cardio: Rate: regular rate Rhythm: regular rhythm Heart sounds: S1 normal heart sound present and S2 normal heart sound present GI: Palpation (GI): Soft to palpation and nontender Auscultation: normal bowel sounds : General: Yes no CVA tenderness Back/Spine/Pelvis: Back: no CVA tenderness Skin: General skin exam: other (Right BKA) Neuro: Cranial nerves: Yes Equal, round and reactive pupils present Assessment and Plan Assessment and plan (1) Chest pain: Problem details: likely pleuritis with an elevated sedimentation rate of 85 Status: Acute Assessment and Plan: Lidoderm patches (2) COPD (chronic obstructive pulmonary disease): Status: Acute Assessment and Plan: Cont respiratory therapy (3) Pleural effusion on right: Status: Acute Assessment and Plan: F/U with Pulmonary as an outpt Time Spent With Patient Time: Total time spent is greater than 50% in coordination of care (as documented) at patient's floor/unit and/or counseling patient: Time with patient: 15 - 24 minutes
[2020-09-04 10:18] VITALS: BP 109/71; PULSE 53
--- NOTE | 2020-09-04 11:43 | W.MHC.F2F ---
Service Date Service Date: 09/04/20 Reasons for Services Reason for nursing home: wound care and teach disease management overseeing care: Joesph Nath MD Homebound: Leaving the home is medically contraindicated at this time without the asist of a device and/or another person due th the listed conditions above and below. Certification: Based on the above findings, I certify that this patient is confined to the home and needs intermittent nursing home care, physical therapy and/or speech therapy, or continues to need occupational therapy. The patient is under my care, and I have initiated the establishment of the plan of care. The patient will be followed by a physician who will periodically review the plan of care.
[2020-09-04 11:44] VITALS: BP 102/65; PULSE 59; TEMP 36.3; O2SAT 100
[2020-09-04 11:57] LABS: Glucose, Whole Blood 162 mg/dL (60-115)
[2020-09-04] MEDS: Insulin Lispro 100 UNIT/ML 3 ML VIAL SUBCUT (12:02)
--- NOTE | 2020-09-04 13:37 | PM.DS ---
DS: Providers Provider Date of admission: 08/31/20 10:30 Primary care physician: Ashley Pendleton MD Consults: 08/31/20 06:36 Consult to Physician Routine Consulting Provider: [facility] Reason for consultation: CHF exacerbation Has provider been notified: No Consult to Pulmonology Routine Consulting Provider: [facility] Pulmonology [facility] Reason for consultation: right sided pleural effusion Has provider been notified: No DS: Diagnosis Discharge Diagnosis (1) Chest pain: Status: Acute Problem details: likely pleuritis with an elevated sedimentation rate of 85 (2) COPD (chronic obstructive pulmonary disease): Status: Acute (3) Pleural effusion on right: Status: Acute DS: Summary Hospital Course Hospital Course: Admission note HPI 50 y/o male with extensive PMHX who presented from home due to SOB. Patient is known to us to have a significant hx of rEFCHF due to cardiomyopathy with EF of 10-15%. Was recently discharged from our premises, admitted due to acute on chronic CHF exacerbation which was sucessfully treated with IV diuretics. Now patient presents due to worsening difficulty breathing for the past day. Denies any chest pain, Nausea, vomiting, diarrhea, cough or fever. Denies any sick contacts or recent travel. On presentation to the ED BP has remained mildly elevated, now 144/98 and HR of 88. Blood work pertinent for BNP of 2377 which is mildly increased from prior admission. CT chest showing worsening Right pleural effusion and bilateral vascular congestion which might repreent an underlying neoplastic etiology vs CH. Patient was given one dose of lasix IV. Per ED O2 sat of the patient has remained in the low 80's for what the patient at present requires 2 liter nasal cannula. Decision for admission given. Patient seen and examined at the bedside, laying down in bed in no acute distress. ROS as above otherwise negative. Physical exam positive for RLE BKA, decreaed breath sounds in the right lower lung field. Rest of the exam unremarkable. Hospital course The patient was admitted to the hospital for treatment of heart failure exacerbation. He was evaluated by Cardiology who started him on Lasix IV with fair response as his O2 sat became 100% on room air with no reported dyspnea or shortness of breath. Leg edema improved significantly as well. To resume I would was discontinued and to be restarted on Lasix 80 mg in the morning and 40 in the evening. He was noted to have right-sided pleural effusion and was complaining of right-sided chest pain. Evaluated by pulmonology and thoracentesis was done. Fluid analysis still pending. To follow-up with Dr. Cordova as outpatient for the results. To repeat blood test next week Time Spent with Patient Time attestation: Total time spent providing and/or coordinating discharge services: Physical Exam Vital Signs: Vital Signs: Vital Signs Temp Pulse Resp BP Pulse Ox 09/04/20 11:44 97.3 F 59 102/65 100 09/04/20 10:18 53 109/71 09/04/20 08:05 53 109/71 09/04/20 08:04 53 109/71 09/04/20 03:24 97.9 F 53 18 109/71 100 09/03/20 22:43 91 145/81 H 09/03/20 20:34 98.9 F 91 18 145/81 H 93 09/03/20 20:00 97.9 F 54 18 102/72 100 09/03/20 15:40 97.5 F 66 18 118/77 90 L Body Mass Index 25.7 Constitutional : Alert, oriented, not in distress Neck : Normal inspection, Supple Cardiovascular : RRR, S1 S2, +1 right lower extremity edema Respiratory : Good bilateral air entry, no crackles, wheezes or rhonchi Gastrointestinal: soft, lax, Normal bowel sounds, Non tender Skin : Warm/Dry, No rash Neurological : Alert & oriented x3, No focal deficit DS: Data Data Completed and Pending Completed studies during hospitalization [Text1]: Procedures Transfusion of Nonautologous Red Blood Cells into Peripheral Vein, Percutaneous Approach (08/11/20) Labs on day of discharge: Labs from last 24 hours 09/04/20 09/04/20 09/04/20 11:49 08:21 05:44 WBC RBC Hgb Hct MCV MCH MCHC RDW Plt Count MPV Immature Gran % (Auto) Neut % (Auto) Lymph % (Auto) [place] % (Auto) Eos % (Auto) Baso % (Auto) Lymph # (Auto) [place] # (Auto) Eos # (Auto) Baso # (Auto) Abs Immat Gran (auto) Absolute Neuts (auto) Absolute Nucleated RBC Nucleated RBC % (auto) Sodium 130 L Potassium 4.6 Chloride 88 L Carbon Dioxide 32 H Anion Gap 15 BUN 28 H Creatinine 0.90 Estim Creat Clear Calc 86.6 Estimated GFR > 60 POC Glucose 162 H 179 H Random Glucose 89 D Calcium 8.7 Peritoneal Tot Protein Peritoneal LDH Peritoneal Glucose 09/04/20 09/03/20 09/03/20 05:44 21:19 16:44 WBC 9.5 RBC 5.07 Hgb 13.1 L Hct 42.4 MCV 83.6 MCH 25.8 L MCHC 30.9 L RDW 18.9 H Plt Count 405 H MPV 9.7 Immature Gran % (Auto) 0.4 Neut % (Auto) 70.7 Lymph % (Auto) 15.8 L [place] % (Auto) 11.2 H Eos % (Auto) 1.4 Baso % (Auto) 0.5 Lymph # (Auto) 1.5 [place] # (Auto) 1.1 Eos # (Auto) 0.1 Baso # (Auto) 0.1 Abs Immat Gran (auto) 0.04 H Absolute Neuts (auto) 6.7 Absolute Nucleated RBC 0.000 Nucleated RBC % (auto) 0.0 Sodium Potassium Chloride Carbon Dioxide Anion Gap BUN Creatinine Estim Creat Clear Calc Estimated GFR POC Glucose 156 H 183 H Random Glucose Calcium Peritoneal Tot Protein Peritoneal LDH Peritoneal Glucose 09/03/20 12:30 WBC RBC Hgb Hct MCV MCH MCHC RDW Plt Count MPV Immature Gran % (Auto) Neut % (Auto) Lymph % (Auto) [place] % (Auto) Eos % (Auto) Baso % (Auto) Lymph # (Auto) [place] # (Auto) Eos # (Auto) Baso # (Auto) Abs Immat Gran (auto) Absolute Neuts (auto) Absolute Nucleated RBC Nucleated RBC % (auto) Sodium Potassium Chloride Carbon Dioxide Anion Gap BUN Creatinine Estim Creat Clear Calc Estimated GFR POC Glucose Random Glucose Calcium Peritoneal Tot Protein Pending Peritoneal LDH Pending Peritoneal Glucose Pending Preliminary micro results at discharge 09/03/20 Unknown Routine Culture - Preliminary Pleural Fluid No growth to date. Discharge Plan Discharge Patient Disposition: Home Health Service Referrals: José Miguel LOPEZ [Other] [facility] Wound clinic [Other] Ashley Pendleton MD [Primary Care Provider] - 2 days Discharge Medications: New furosemide 40 mg Tablet 80 mg PO DAILY Qty: 60 RF: 0 furosemide 40 mg Tablet 40 mg PO DAILY@1700 Qty: 30 RF: 0 Continued albuterol sulfate 2.5 mg /3 mL (0.083 %) Solution For Nebulization 2.5 mg inhalation Q4H PRN (Reason: Shortness Of Breath Or Wheezing) RF: 0 (DME) lancets Misc MISCELLANEOUS RF: 0 famotidine [Pepcid] 20 mg Tablet 20 mg PO BID RF: 0 (DME) blood-glucose meter [FreeStyle [place] Lite] Kit MISCELLANEOUS RF: 0 (DME) cane Device MISCELLANEOUS RF: 0 (DME) FreeStyle Lite Strips RF: 0 magnesium oxide [MagOx] 400 mg (241.3 mg magnesium) Tablet 400 mg PO DAILY RF: 0 (DME) pen needle, diabetic Needle MISCELLANEOUS RF: 0 methadone 10 mg/mL Concentrate 50 mg PO QAM RF: 0 albuterol sulfate 90 mcg/actuation Hfa Aerosol Inhaler 2 puff INHALATION Q4H PRN (Reason: Shortness Of Breath) RF: 0 zinc sulfate 110 mg (25 mg zinc) Tablet 220 mg PO DAILY RF: 0 spironolactone 25 mg Tablet 12.5 mg PO DAILY RF: 0 sennosides [senna] 8.6 mg Tablet 8.6 mg PO BEDTIME PRN (Reason: Constipation) RF: 0 Lantus U-100 Insulin 100 unit/mL Solution 12 unit SUBCUT QPM RF: 0 cetirizine 10 mg Tablet 10 mg PO DAILY RF: 0 aspirin 81 mg Tablet,Delayed Release (Dr/Ec) 81 mg PO DAILY RF: 0 insulin lispro 100 unit/mL Solution 5 unit SUBCUT TIDAC RF: 0 polyethylene glycol 3350 [Miralax] 17 gram/dose Powder 17 g PO DAILY RF: 0 carvedilol 6.25 mg Tablet 6.25 mg PO BID RF: 0 atorvastatin 20 mg Tablet 20 mg PO BEDTIME RF: 0 lidocaine [Lidocaine Pain Relief] 4 % Adhesive Patch,Medicated 1 patch TOPICAL DAILY PRN (Reason: Pain) RF: 0 clopidogrel 75 mg Tablet 75 mg PO DAILY RF: 0 tamsulosin 0.4 mg Capsule 0.4 mg PO DAILY RF: 0 fluticasone propion-salmeterol [Advair Diskus] 500-50 mcg/dose Blister With Device 1 inh INHALATION BID RF: 0 losartan 25 mg Tablet 25 mg PO DAILY RF: 0 montelukast 10 mg Tablet 10 mg PO BEDTIME RF: 0 gabapentin 100 mg Capsule 200 mg PO TID RF: 0 ergocalciferol (vitamin D2) 1,250 mcg (50,000 unit) Capsule 1,250 mcg PO QWEEK RF: 0 fluticasone propionate [Flonase Allergy Relief] 50 mcg/actuation [place],Suspension 1 spray INTRANASAL DAILY RF: 0 oxycodone 5 mg Tablet 5 mg PO Q6H PRN (Reason: Pain (Scale Score 1-3)) RF: 0 clotrimazole 1 % Cream 1 applic TOPICAL TID RF: 0 Eucerin Cream 1 applic TOPICAL DAILY PRN (Reason: Dry Skin) RF: 0 oxycodone 5 mg tablet 5 mg PO Q6H PRN (Reason: pain) Qty: 20 RF: 0 Discontinued torsemide 20 mg Tablet 20 mg PO DAILY RF: 0 Discharge Orders: Discharge Order (Routine); Ordered 09/04/20 Ordered By: Joesph Nath Diet: advance to your usual diet and low salt diet Activity on Discharge: As tolerated Print Language: [place] Activity Restrictions/Additional Instructions: your blood work is at her baseline. Your ultrasound showed gallstones, but no acute gallbladder Visit Report Forms: Patient Portal Discharge page Care Plan Goals: read below Health Concerns: read below Plan of Treatment: you were admitted to the hospital for treatment of acute heart failure. evaluated by Cardiology and treated with IV Lasix with fair response over the course of the hospital stay. Your home torsemide was changed to Lasix to be used twice daily. You were noticed to have a right-sided fluid collection over your lung which was drained. you were evaluated by lung specialist Dr. Cordova who will follow-up with you as outpatient when the results from the fluid study are back. Take Lasix 80 mg in the morning and 40 mg in the afternoon Monitor your weight at home
--- NOTE | 2020-09-04 15:45 | MHC.CM.PN ---
DC HOME TODAY WITH [facility] VIA bls. WOUND CLINIC APPOINTMENT SCHEDULED.
[2020-09-05 02:07] LABS: Angiotensin Converting Enzyme 89 U/L (9-67)
[2020-09-05 06:46] LABS: LDH Peritoneal Fluid 85; Total Protein Peritoneal Fluid 2.7
[2020-09-05 06:50] LABS: Glucose Peritoneal Fluid 150
== END 2020-09-04 15:48 | disposition home health service (06) | DRG 194 ==
LOC: HO.ED 08-31 01:57 → HO.IMC 08-31 04:03
PROVIDERS: Hospitalist; Internal Medicine; Physician Assistant; Admitting Provider Internal Medicine; Emergency Provider Student in an Organized Health Care Education/Training Program; PCP Family Medicine; Visit Provider Student in an Organized Health Care Education/Training Program
DX: I11.0 Hypertensive heart disease with heart failure (principal); E11.42 Type 2 diabetes mellitus with diabetic polyneuropathy; Z79.01 Long term (current) use of anticoagulants; F11.20 Opioid dependence, uncomplicated; F31.9 Bipolar disorder, unspecified; I50.23 Acute on chronic systolic (congestive) heart failure; E78.5 Hyperlipidemia, unspecified; Z20.828 Contact with and (suspected) exposure to other viral communicable diseases; F17.210 Nicotine dependence, cigarettes, uncomplicated; N40.0 Benign prostatic hyperplasia without lower urinary tract symptoms; B19.20 Unspecified viral hepatitis C without hepatic coma; R09.1 Pleurisy; Z89.511 Acquired absence of right leg below knee; G89.29 Other chronic pain; K21.9 Gastro-esophageal reflux disease without esophagitis; J45.909 Unspecified asthma, uncomplicated; Z71.6 Tobacco abuse counseling; Z79.4 Long term (current) use of insulin; Z79.51 Long term (current) use of inhaled steroids; Z79.82 Long term (current) use of aspirin; Z79.899 Other long term (current) drug therapy
CPT/HCPCS: 32555; 36415; 71045; 71046; 71275; 76700; 80048; 80076; 82164; 82945; 82947; 83615; 83690; 83880; 84157; 85025; 85610; 85652; 86038; 86039; 87071; 87205; 87389; 87635; 93005; 94640; 96374; 99225; 99285; J1885; J1940

== ENCOUNTER 2020-09-05 00:39 | Emergency (ER) | payer MEDICAID, SELFPAY ==
[2020-09-05 00:41] VITALS: BP 133/75; PULSE 73; RESP 18; TEMP 36.8; O2SAT 98; BMI 24.2
--- NOTE | 2020-09-05 00:55 | XR_ITS ---
EXAMINATION: XR CHEST CLINICAL INFORMATION: Chest wall pain COMPARISON: 09/03/2020 TECHNIQUE: Frontal view of the chest was obtained. FINDINGS: Lung volumes are symmetric. There is mild curvilinear left basilar opacity favoring atelectasis. No dense consolidation is seen. No evidence of pneumothorax, pleural effusion, or overt pulmonary edema. Prominent cardiac silhouette appears similar to prior. No acute osseous findings are seen. XR/XR chest 1V IMPRESSION: No acute findings identified. Suspect subsegmental left basilar atelectasis.
[2020-09-05 01:05] VITALS: PULSE 71; O2SAT 99
--- NOTE | 2020-09-05 01:08 | PC.NURSE ---
Pt d/c from [facility] earlier today, reports his oxygen equipment was not delivered reports he is supposed to be on 2L via [place]. Pt sat on room air was 96-97% on room air. Pt insisting on having oxygen on, reporting he cannot breathe. LS clear/dim throughout. Resp reg and even. Pt appears slightly anxious.
[2020-09-05] MEDS: oxyCODONE HCl Immed Release 5 MG TABLET PO (01:14)
--- NOTE | 2020-09-05 02:48 | ED_ITS ---
HPI - SOB/Dyspnea General Chief Complaint: Dyspnea Stated Complaint: sob flu synptoms Time Seen by Provider: 09/05/20 00:53 Source: patient Mode of arrival: ambulatory Limitations: no limitations History of Present Illness HPI Narrative: 50-year-old male history of CHF, patient just had a recent hospitalization and was discharged today from the hospital in the morning. Patient came back for her shortness of breath. Patient appears stable, with oxygen saturation of 99 %, and normal respiratory rate. Related Data Home Medications Medication Instructions Recorded Confirmed FreeStyle Lite Strips 08/12/20 08/12/20 albuterol sulfate 2 puff INHALATION Q4H PRN 08/12/20 09/05/20 albuterol sulfate 2.5 mg INHALATION Q4H PRN 08/12/20 09/05/20 blood-glucose meter [FreeStyle 08/12/20 08/12/20 [place] Lite] cane 08/12/20 08/12/20 famotidine [Pepcid] 20 mg PO BID 08/12/20 09/05/20 lancets 08/12/20 08/12/20 magnesium oxide [MagOx] 400 mg PO DAILY 08/12/20 09/05/20 methadone 50 mg PO QAM 08/12/20 09/05/20 pen needle, diabetic 08/12/20 08/12/20 Eucerin 1 applic TOPICAL DAILY PRN 08/14/20 09/05/20 Lantus U-100 Insulin 12 unit SUBCUT QPM 08/14/20 09/05/20 aspirin 81 mg PO DAILY 08/14/20 09/05/20 atorvastatin 20 mg PO BEDTIME 08/14/20 09/05/20 carvedilol 6.25 mg PO BID 08/14/20 09/05/20 cetirizine 10 mg PO DAILY 08/14/20 09/05/20 clopidogrel 75 mg PO DAILY 08/14/20 09/05/20 clotrimazole 1 applic TOPICAL TID 08/14/20 09/05/20 ergocalciferol (vitamin D2) 1,250 mcg PO QWEEK 08/14/20 09/05/20 fluticasone propion-salmeterol 1 inh INHALATION BID 08/14/20 09/05/20 [Advair Diskus] fluticasone propionate [Flonase 1 spray INTRANASAL DAILY 08/14/20 09/05/20 Allergy Relief] gabapentin 200 mg PO TID 08/14/20 09/05/20 insulin lispro 5 unit SUBCUT TIDAC 08/14/20 09/05/20 lidocaine [Lidocaine Pain Relief] 1 patch TOPICAL DAILY PRN 08/14/20 09/05/20 losartan 25 mg PO DAILY 08/14/20 09/05/20 montelukast 10 mg PO BEDTIME 08/14/20 09/05/20 oxycodone 5 mg PO Q6H PRN 08/14/20 09/05/20 polyethylene glycol 3350 [Miralax] 17 g PO DAILY 08/14/20 09/05/20 sennosides [senna] 8.6 mg PO BEDTIME PRN 08/14/20 09/05/20 spironolactone 12.5 mg PO DAILY 08/14/20 09/05/20 tamsulosin 0.4 mg PO DAILY 08/14/20 09/05/20 zinc sulfate 220 mg PO DAILY 08/14/20 09/05/20 Previous Rx's Medication Instructions Recorded oxycodone 5 mg PO Q6H PRN #20 tab 08/24/20 furosemide 40 mg PO DAILY@1700 #30 tab 09/04/20 furosemide 80 mg PO DAILY #60 tab 09/04/20 Allergies Allergy/AdvReac Type Severity Reaction Status Date / Time vancomycin [VANCOMYCIN] Allergy Intermediate HIVES Verified 08/31/20 09:37 Chocolate Allergy Unknown Rash Verified 08/31/20 09:37 ciprofloxacin [From CIPRO] Allergy Unknown SWELLING Verified 08/31/20 09:37 ertapenem Allergy Unknown Hives Verified 08/31/20 09:37 hydrocortisone [Cipro HC] Allergy Unknown Unknown Verified 08/31/20 09:37 sulfamethoxazole Allergy Unknown rash Verified 08/31/20 09:37 [From BACTRIM] trimethoprim [From BACTRIM] Allergy Unknown rash Verified 08/31/20 09:37 turkey [TURKEY] Allergy Unknown RASH Verified 08/31/20 09:37 From INVANZ Allergy Intermediate HIVES Uncoded 08/31/20 09:37 choclate Allergy Unknown rash Uncoded 08/31/20 09:37 Review of Systems Review of Systems: all other systems are reviewed and are negative Constitutional: Reports as per HPI and Reports no additional constitutional complaints Eyes: Reports as per HPI and Reports no additional eye complaints Reports system reviewed and no additional complaints, except as documented Cardiovascular: Reports as per HPI and Reports no additional cardiovascular complaints Respiratory: Reports as per HPI and Reports no additional respiratory complaints Gastrointestinal: Reports as per HPI and Reports no additional gastrointestinal complaints Genitourinary: Reports no additional female genitourinary complaints Musculoskeletal: Reports no additional musculoskeletal complaints Skin/Breast: Reports system reviewed and no additional complaints, except as docu Psychiatric: Reports no additional psychiatric complaints Endocrine: Reports no additional endocrine complaints Hematologic/Lymphatic: Reports no additional hematologic/lymphatic complaints Allergic/Immunologic: Reports no additional allergic/immunologic complaints Reports system reviewed and no additional complaints, except as documented and Reports Abnormal speech present [facility] Past Medical History Medical History Acute on chronic anemia Acute on chronic combined systolic and diastolic congestive heart failure Asthma Bipolar 1 disorder Chest pain Congestive cardiac failure COPD (chronic obstructive pulmonary disease) Diabetes mellitus, type 2 Hyperlipidemia Substance abuse Surgical History History of amputation History of laminectomy History of transurethral resection of prostate Hx of BKA Family History Family History Father Chronic mental illness Hypertension Asthma Stroke Mother Asthma Diabetes Coronary artery disease Social History Social History Alcohol intake: never Smoking Status: Current every day smoker Smoked in Last 30 Days: No Substance Use Type: Marijuana Substance Use Type Other:: methadone Substance Use Frequency: Chronic Longstanding Last Used Substance: Unknown Advance Directives: No Advance Directives Information Provided: No service: No Current occupational status: disabled Physical Exam Vital Signs: Vital Signs: Vital Signs Temp Pulse Resp BP Pulse Ox 09/05/20 01:05 71 99 09/05/20 00:41 98.3 F 73 18 133/75 98 Body Mass Index 24.2 vital signs have been reviewed as normal and appeared to be correct. Blood pressure normal. Heart rate normal. Respiration rate normal. Temperature normal. Oxygen saturation normal. Appearance: Alert. Oriented X3. No acute distress. Head: Normal external exam. Normocephalic. Atraumatic. No Cyr signs noted. No raccoon eyes noted Eyes: PERRLA. EOMI. Conjunctiva and sclera normal. Eyelids normal. ENT: EAC normal. TM's Normal. Pharynx normal. Uvula midline. Moist mucous membranes. No trismus noted. No drooling noted. No muffled voice noted. Neck: Normal inspection. Neck supple. FROM. No adenopathy. Thyroid Normal. No meningeal signs. No neck mass noted. CVS: Normal heart rate and rhythm. Heart sound normal. No murmurs noted. Pulses normal throughout. Respiratory: No respiratory distress. Painless inspiration. Breath sounds normal. No wheezes/rales/rhonchi noted. Chest nontender. No accessory muscle usage noted or decreased air movement noted. Abdomen: Soft and nontender. Bowel sounds normal in all 4 quadrants. No distention noted. No organomegaly noted. No visible injury noted. Back: No CVA tenderness. Full range of motion noted. Skin: Skin warm and dry. Normal skin color. Normal skin turgor. No rashes/lesions/lacerations noted. Extremities: No lower extremity edema. Extremities exhibit normal range of motion. Extremities nontender. Neuro: Oriented X 3. No motor deficit. No sensory deficit. Reflexes normal. Course Course Course Narrative: 50-year-old male with extensive past medical history, patient was just discharged from the hospital today looking at his labs and recent x- rays unremarkable, 2 days x-ray stable, patient remain in the emergency department stable vital sign was stable oxygenation and respiratory rate, physical exam is unremarkable felt the patient safe to be discharged home. VNA has been arranged for this patient. MDM - SOB/Dyspnea MDM Narrative Medical decision making narrative: 48 years old male history of congestive h eart failure which just in the hospital discharge today, patient came back for shortness of breath and chest wall pain, patient remained stable in the emergency department chest x-ray is normal patient will be discharged back home to continue with VNA visiting nurse that has been arranged for the patient. Imaging Data Chest x-ray: Radiologist's impression: Unremarkable x-ray. Discharge Plan Discharge Clinical Impression: Chronic dyspnea Patient Disposition: Home, Self-Care Instructions: Heart Failure (ED) Prescriptions: No Action albuterol sulfate 2.5 mg /3 mL (0.083 %) Solution For Nebulization 2.5 mg inhalation Q4H PRN (Reason: Shortness Of Breath Or Wheezing) RF: 0 (DME) lancets Misc MISCELLANEOUS RF: 0 famotidine [Pepcid] 20 mg Tablet 20 mg PO BID RF: 0 (DME) blood-glucose meter [FreeStyle [place] Lite] Kit MISCELLANEOUS RF: 0 (DME) cane Device MISCELLANEOUS RF: 0 (DME) FreeStyle Lite Strips RF: 0 magnesium oxide [MagOx] 400 mg (241.3 mg magnesium) Tablet 400 mg PO DAILY RF: 0 (DME) pen needle, diabetic Needle MISCELLANEOUS RF: 0 methadone 10 mg/mL Concentrate 50 mg PO QAM RF: 0 albuterol sulfate 90 mcg/actuation Hfa Aerosol Inhaler 2 puff INHALATION Q4H PRN (Reason: Shortness Of Breath) RF: 0 zinc sulfate 110 mg (25 mg zinc) Tablet 220 mg PO DAILY RF: 0 spironolactone 25 mg Tablet 12.5 mg PO DAILY RF: 0 sennosides [senna] 8.6 mg Tablet 8.6 mg PO BEDTIME PRN (Reason: Constipation) RF: 0 Lantus U-100 Insulin 100 unit/mL Solution 12 unit SUBCUT QPM RF: 0 cetirizine 10 mg Tablet 10 mg PO DAILY RF: 0 aspirin 81 mg Tablet,Delayed Release (Dr/Ec) 81 mg PO DAILY RF: 0 insulin lispro 100 unit/mL Solution 5 unit SUBCUT TIDAC RF: 0 polyethylene glycol 3350 [Miralax] 17 gram/dose Powder 17 g PO DAILY RF: 0 carvedilol 6.25 mg Tablet 6.25 mg PO BID RF: 0 atorvastatin 20 mg Tablet 20 mg PO BEDTIME RF: 0 lidocaine [Lidocaine Pain Relief] 4 % Adhesive Patch,Medicated 1 patch TOPICAL DAILY PRN (Reason: Pain) RF: 0 clopidogrel 75 mg Tablet 75 mg PO DAILY RF: 0 tamsulosin 0.4 mg Capsule 0.4 mg PO DAILY RF: 0 fluticasone propion-salmeterol [Advair Diskus] 500-50 mcg/dose Blister With Device 1 inh INHALATION BID RF: 0 losartan 25 mg Tablet 25 mg PO DAILY RF: 0 montelukast 10 mg Tablet 10 mg PO BEDTIME RF: 0 gabapentin 100 mg Capsule 200 mg PO TID RF: 0 ergocalciferol (vitamin D2) 1,250 mcg (50,000 unit) Capsule 1,250 mcg PO QWEEK RF: 0 fluticasone propionate [Flonase Allergy Relief] 50 mcg/actuation [place],Suspension 1 spray INTRANASAL DAILY RF: 0 oxycodone 5 mg Tablet 5 mg PO Q6H PRN (Reason: Pain (Scale Score 1-3)) RF: 0 clotrimazole 1 % Cream 1 applic TOPICAL TID RF: 0 Eucerin Cream 1 applic TOPICAL DAILY PRN (Reason: Dry Skin) RF: 0 oxycodone 5 mg tablet 5 mg PO Q6H PRN (Reason: pain) Qty: 20 RF: 0 furosemide 40 mg Tablet 80 mg PO DAILY Qty: 60 RF: 0 furosemide 40 mg Tablet 40 mg PO DAILY@1700 Qty: 30 RF: 0
== END 2020-09-05 05:30 | disposition home or self-care (01) ==
PROVIDERS: Emergency Provider Emergency Medicine
DX: R06.00 Dyspnea, unspecified (principal); F17.200 Nicotine dependence, unspecified, uncomplicated; Z71.6 Tobacco abuse counseling; Z20.828 Contact with and (suspected) exposure to other viral communicable diseases; Z79.899 Other long term (current) drug therapy
CPT/HCPCS: 71045; 99283; 99284

== ENCOUNTER 2020-09-17 12:49 | Outpatient (RCR) | payer MEDICAID, SELFPAY | END 2020-11-12 16:08 | disposition home or self-care (01) | LOC: HO.WCC 12:49 | PROVIDERS: Visit Provider Surgery | DX: E11.621 Type 2 diabetes mellitus with foot ulcer (principal); L97.522 Non-pressure chronic ulcer of other part of left foot with fat layer exposed; T87.81 Dehiscence of amputation stump; F19.11 Other psychoactive substance abuse, in remission; Z79.4 Long term (current) use of insulin; Z89.511 Acquired absence of right leg below knee; Z86.19 Personal history of other infectious and parasitic diseases; Z91.19 Patient's noncompliance with other medical treatment and regimen | CPT/HCPCS: 11042; 99212 ==

== ENCOUNTER 2020-10-04 06:40 | Emergency (ER) | payer MEDICAID, SELFPAY ==
[2020-10-04 06:50] VITALS: BP 152/88; PULSE 76; RESP 16; TEMP 36.6; O2SAT 100; BMI 21.6
[2020-10-04 07:13] LABS: Glucose, Whole Blood 84 mg/dL (60-115)
--- NOTE | 2020-10-04 07:18 | XR_ITS ---
EXAMINATION: XR CHEST CLINICAL INFORMATION: Right-sided pain COMPARISON: Previous chest x-rays most recent 09/05/2020 TECHNIQUE: 2 views of the chest were obtained. FINDINGS: The cardiac silhouette is enlarged but stable. There may be pulmonary venous redistribution. The lungs are otherwise clear. There is no pleural effusion. Bony structures are unremarkable. XR/XR chest 2V IMPRESSION: Enlarged cardiac silhouette and question pulmonary venous redistribution.
--- NOTE | 2020-10-04 07:18 | ECG_ITS ---
Test Reason : SOB Blood Pressure : / mmHG Vent. Rate : 061 BPM Atrial Rate : 061 BPM P-R Int : 182 ms QRS Dur : 112 ms QT Int : 452 ms P-R-T Axes : 034 -27 137 degrees QTc Int : 455 ms Normal sinus rhythm Intra-ventricular conduction delay Left ventricular hypertrophy with repolarization abnormality T-wave inversion in Lateral leads Abnormal ECG When compared with ECG of 03-SEP-2020 03:04, T wave inversion more evident in Lateral leads Referred By: Hussein Amaro Electronically Signed By:CRISTIAN SU MD
--- NOTE | 2020-10-04 07:30 | PC.NURSE ---
PT ARRIVES FROM HOME AFTER C/O R SIDED RIB AND ABD PAIN, ONGOING FOR 2 WKS. NO RECENT INJURY, PAIN WORSE ON INSP. HX CHF. SPEAKING IN CLEAR, FULL SENTENCES. SEEN DAILY AT HOME BY [facility]. PT DIFF STICK, 22G IN L FOREARM.
--- NOTE | 2020-10-04 07:32 | ED_ITS ---
HPI - General Adult General Chief complaint: Abdominal Pain Stated complaint: LUQ PAIN X'S 23 DAYS Time Seen by Provider: 10/04/20 07:12 Source: patient Mode of arrival: ambulatory Limitations: no limitations History of Present Illness HPI narrative: This is a 50 years old male with multiple medical problems including congestive heart failure, cardiomyopathy with a ef 10 15%, diabetes complicated by peripheral vascular disease just discharged from the hospital on September 04 presented today with chief complaint of right lower chest pain and right upper abdominal pain. There is no fever, vomiting, shortness of breaths Onset (ago): week(s) (1) Location: chest and abdomen Radiation: non-radiation Severity: moderate Quality: burning Pain Consistency: constant Relieving factors: none Exacerbating factors: none Associated symptoms: malaise Related Data Home Medications Medication Instructions Recorded Confirmed FreeStyle Lite Strips 08/12/20 08/12/20 albuterol sulfate 2 puff INHALATION Q4H PRN 08/12/20 09/05/20 albuterol sulfate 2.5 mg INHALATION Q4H PRN 08/12/20 09/05/20 blood-glucose meter [FreeStyle 08/12/20 08/12/20 [place] Lite] cane 08/12/20 08/12/20 famotidine [Pepcid] 20 mg PO BID 08/12/20 09/05/20 lancets 08/12/20 08/12/20 magnesium oxide [MagOx] 400 mg PO DAILY 08/12/20 09/05/20 methadone 50 mg PO QAM 08/12/20 09/05/20 pen needle, diabetic 08/12/20 08/12/20 Eucerin 1 applic TOPICAL DAILY PRN 08/14/20 09/05/20 Lantus U-100 Insulin 12 unit SUBCUT QPM 08/14/20 09/05/20 aspirin 81 mg PO DAILY 08/14/20 09/05/20 atorvastatin 20 mg PO BEDTIME 08/14/20 09/05/20 carvedilol 6.25 mg PO BID 08/14/20 09/05/20 cetirizine 10 mg PO DAILY 08/14/20 09/05/20 clopidogrel 75 mg PO DAILY 08/14/20 09/05/20 clotrimazole 1 applic TOPICAL TID 08/14/20 09/05/20 ergocalciferol (vitamin D2) 1,250 mcg PO QWEEK 08/14/20 09/05/20 fluticasone propion-salmeterol 1 inh INHALATION BID 08/14/20 09/05/20 [Advair Diskus] fluticasone propionate [Flonase 1 spray INTRANASAL DAILY 08/14/20 09/05/20 Allergy Relief] gabapentin 200 mg PO TID 08/14/20 09/05/20 insulin lispro 5 unit SUBCUT TIDAC 08/14/20 09/05/20 lidocaine [Lidocaine Pain Relief] 1 patch TOPICAL DAILY PRN 08/14/20 09/05/20 losartan 25 mg PO DAILY 08/14/20 09/05/20 montelukast 10 mg PO BEDTIME 08/14/20 09/05/20 oxycodone 5 mg PO Q6H PRN 08/14/20 09/05/20 polyethylene glycol 3350 [Miralax] 17 g PO DAILY 08/14/20 09/05/20 sennosides [senna] 8.6 mg PO BEDTIME PRN 08/14/20 09/05/20 spironolactone 12.5 mg PO DAILY 08/14/20 09/05/20 tamsulosin 0.4 mg PO DAILY 08/14/20 09/05/20 zinc sulfate 220 mg PO DAILY 08/14/20 09/05/20 Previous Rx's Medication Instructions Recorded oxycodone 5 mg PO Q6H PRN #20 tab 08/24/20 furosemide 40 mg PO DAILY@1700 #30 tab 09/04/20 furosemide 80 mg PO DAILY #60 tab 09/04/20 Allergies Allergy/AdvReac Type Severity Reaction Status Date / Time vancomycin [VANCOMYCIN] Allergy Intermediate HIVES Verified 10/04/20 06:49 Chocolate Allergy Unknown Rash Verified 10/04/20 06:49 ciprofloxacin [From CIPRO] Allergy Unknown SWELLING Verified 10/04/20 06:49 ertapenem Allergy Unknown Hives Verified 10/04/20 06:49 hydrocortisone [Cipro HC] Allergy Unknown Unknown Verified 10/04/20 06:49 sulfamethoxazole Allergy Unknown rash Verified 10/04/20 06:49 [From BACTRIM] trimethoprim [From BACTRIM] Allergy Unknown rash Verified 10/04/20 06:49 turkey [TURKEY] Allergy Unknown RASH Verified 10/04/20 06:49 From MARCELO Allergy Intermediate HIVES Uncoded 10/04/20 06:49 choclate Allergy Unknown rash Uncoded 10/04/20 06:49 Review of Systems Review of Systems: Yes all other systems are reviewed and are negative Respiratory: Respiratory: Reports no additional respiratory complaints and Reports no additional respiratory complaints Gastrointestinal: Gastrointestinal: Reports no additional gastrointestinal complaints Neurologic: Reports system reviewed and no additional complaints, except as documented Psychiatric: Psychiatric: Reports no additional psychiatric complaints FOR[facility]LY [facility], [facility] Past Medical History Attestation statement: The following information was validated with the patient. Medical History Acute on chronic anemia Acute on chronic combined systolic and diastolic congestive heart failure Asthma Bipolar 1 disorder BPH (benign prostatic hyperplasia) Chest pain Cholelithiasis Congestive cardiac failure COPD (chronic obstructive pulmonary disease) Diabetes mellitus, type 2 GERD (gastroesophageal reflux disease) Hyperlipidemia Peripheral neuropathy Substance abuse Surgical History History of amputation History of laminectomy History of transurethral resection of prostate Hx of BKA Family History Family History Father Chronic mental illness Hypertension Asthma Stroke Mother Asthma Diabetes Coronary artery disease Social History Social History Alcohol intake: never Smoking Status: Current every day smoker Substance Use Type: Marijuana Advance Directives: No Advance Directives Information Provided: Yes service: No Current occupational status: disabled Physical Exam Vital Signs: Vital Signs: Last Vital Signs Temp 98.3 F 10/04/20 10:35 Pulse 72 10/04/20 10:50 Resp 16 10/04/20 09:56 BP 122/53 L 10/04/20 09:56 Pulse Ox 100 10/04/20 10:50 Body Mass Index 21.6 Const: Other: Chronically ill appearing but in not acute distress Orientation/consciousness: oriented to person HENMT: Head: Yes normal to inspection Ears: hearing grossly normal bilaterally Eyes: Eyelids: Yes eyelids normal Conjunctivae: conjunctivae normal Sclerae: sclerae normal Neck: Neck: Yes normal visual inspection, Yes full ROM and Yes no lymphadenopathy Chest: Chest palpation & inspection: normal inspection of the chest and normal palpation of entire chest wall Resp: Effort & Inspection: normal respiratory effort and able to speak in complete sentences Cardio: Jugular venous distension: no JVD Rate: regular rate GI: Inspection: Yes normal to inspection Percussion: Yes normal to percussion Auscultation: normal bowel sounds Neuro: General: oriented to person, moves all extremities and CN's II-XI intact bilaterally Extrem: Other: Right [id number] amputation General: Yes normal to inspection and Yes no clubbing, cyanosis or edema Psych: Appearance: grossly normal Mental Status: mental status grossly normal Speech and movement: Normal speech and movement present Attitude: cooperative Course Course Course Narrative: Patient remained hemodynamically stable with oxygenating well with a sat of 100% his white count is normal and his chest x-ray is clear. D- dimer was noted today D-dimer is 778 but on August 26 D-dimer was higher 2100 and he did have a chest CT with contrast on August 30 which was negative for PE;at this point I do not feel is necessary repeating another CTA given the fact that these oxygenating well his D-dimer is much better from prior Reevaluation(s) Reevaluation #1: Patient is feeling much better at this time , he is afebrile, his O2 sat is 100% at room air, he is not tachycardic, he is not tachypneic. His white count is normal. Looking through his record he was complaining of these right-sided pain on September 03 according to the hospitalist note dr White and pulmunogist Dr Neves. Also on September 04 in the discharge summary there was an indication decide right-sided pain. Urine yet the CTA a of the chest on August 30 CT scan of the abdomen today showed the no change from prior someone normal loss of tissue in the lower anterior chest wall the lower sternum (again without change from the prior) at this time I think the patient can be discharged home for the workup can be done as outpatient, does not meet criteria for inpatient admission being afebrile with very stable vital signs. He does have a primary care physician in the a [facility] he will call for follow-up. I did place phone call out to his PCP Dr Pendleton Time: 11:16 Time: 11:16 Reevaluation #3: I received a call back from [facility] I spoke with the covering provider HERNANDEZ Fraire, I will follow-up on the abnormality on the CT which again is chronic but has no diagnosis yet Medical Decision Making Lab Data Result diagrams: 10/04/20 07:26 10/04/20 08:02 Labs: Lab Results 10/04/20 10/04/20 10/04/20 Range/Units 07:09 07:26 07:26 WBC 9.8 (4.8-10.8) X10*3/uL RBC 4.71 (4.60-5.80) X10*6/uL Hgb 11.9 L (14.0-18.0) g/dl Hct 38.5 L (42-52) % MCV 81.7 (80-98) fL MCH 25.3 L (27.0-33.0) pg MCHC 30.9 L (31.0-36.0) g/dl RDW 15.8 (11.0-16.0) % Plt Count 335 (160-400) X10*3/uL MPV 8.9 L (9.4-12.4) fL Immature Gran % (Auto) 0.4 (0.0-0.4) % Neut % (Auto) 75.8 H (45-73) % Lymph % (Auto) 10.6 L (20-40) % Howell % (Auto) 10.3 (2-11) % Eos % (Auto) 2.6 (0-4) % Baso % (Auto) 0.3 (0-2) % Lymph # (Auto) 1.0 L (1.2-4.9) X10*3/uL Howell # (Auto) 1.0 (0.1-1.2) X10*3/uL Eos # (Auto) 0.3 (0.0-0.4) X10*3/uL Baso # (Auto) 0.0 (0.0-0.2) X10*3/uL Abs Immat Gran (auto) 0.04 H (0.00-0.03) X10*3/uL Absolute Neuts (auto) 7.4 (2.0-8.3) X10*3/uL Absolute Nucleated RBC 0.000 (0.0-0.012) X10*3/uL Nucleated RBC % (auto) 0.0 (0.0-0.2) /100WBC PT 13.9 H D (10.8-13.0) SEC INR 1.2 H (0.9-1.1) D-Dimer NG/ML Sodium Potassium Chloride Carbon Dioxide Anion Gap BUN Creatinine Estim Creat Clear Calc Estimated GFR POC Glucose 84 (60-115) mg/dL Random Glucose Calcium Total Bilirubin AST ALT Alkaline Phosphatase Troponin I High Sens (<3.5-35.0) ng/L Total Protein Albumin 10/04/20 10/04/20 10/04/20 Range/Units 07:26 07:26 07:39 WBC (4.8-10.8) X10*3/uL RBC (4.60-5.80) X10*6/uL Hgb (14.0-18.0) g/dl Hct (42-52) % MCV (80-98) fL MCH (27.0-33.0) pg MCHC (31.0-36.0) g/dl RDW (11.0-16.0) % Plt Count (160-400) X10*3/uL MPV (9.4-12.4) fL Immature Gran % (Auto) (0.0-0.4) % Neut % (Auto) (45-73) % Lymph % (Auto) (20-40) % Howell % (Auto) (2-11) % Eos % (Auto) (0-4) % Baso % (Auto) (0-2) % Lymph # (Auto) (1.2-4.9) X10*3/uL Howell # (Auto) (0.1-1.2) X10*3/uL Eos # (Auto) (0.0-0.4) X10*3/uL Baso # (Auto) (0.0-0.2) X10*3/uL Abs Immat Gran (auto) (0.00-0.03) X10*3/uL Absolute Neuts (auto) (2.0-8.3) X10*3/uL Absolute Nucleated RBC (0.0-0.012) X10*3/uL Nucleated RBC % (auto) (0.0-0.2) /100WBC PT (10.8-13.0) SEC INR (0.9-1.1) D-Dimer 778 NG/ML Sodium Cancelled Potassium Cancelled Chloride Cancelled Carbon Dioxide Cancelled Anion Gap Cancelled BUN Cancelled Creatinine Cancelled Estim Creat Clear Calc Cancelled Estimated GFR Cancelled POC Glucose (60-115) mg/dL Random Glucose Cancelled Calcium Cancelled Total Bilirubin Cancelled AST Cancelled ALT Cancelled Alkaline Phosphatase Cancelled Troponin I High Sens 13.8 (<3.5-35.0) ng/L Total Protein Cancelled Albumin Cancelled 10/04/20 Range/Units 08:02 WBC (4.8-10.8) X10*3/uL RBC (4.60-5.80) X10*6/uL Hgb (14.0-18.0) g/dl Hct (42-52) % MCV (80-98) fL MCH (27.0-33.0) pg MCHC (31.0-36.0) g/dl RDW (11.0-16.0) % Plt Count (160-400) X10*3/uL MPV (9.4-12.4) fL Immature Gran % (Auto) (0.0-0.4) % Neut % (Auto) (45-73) % Lymph % (Auto) (20-40) % Howell % (Auto) (2-11) % Eos % (Auto) (0-4) % Baso % (Auto) (0-2) % Lymph # (Auto) (1.2-4.9) X10*3/uL Howell # (Auto) (0.1-1.2) X10*3/uL Eos # (Auto) (0.0-0.4) X10*3/uL Baso # (Auto) (0.0-0.2) X10*3/uL Abs Immat Gran (auto) (0.00-0.03) X10*3/uL Absolute Neuts (auto) (2.0-8.3) X10*3/uL Absolute Nucleated RBC (0.0-0.012) X10*3/uL Nucleated RBC % (auto) (0.0-0.2) /100WBC PT (10.8-13.0) SEC INR (0.9-1.1) D-Dimer NG/ML Sodium 136 Potassium 3.9 Chloride 99 Carbon Dioxide 27 Anion Gap 14 BUN 23 H Creatinine 0.80 Estim Creat Clear Calc 92.8 Estimated GFR > 60 POC Glucose (60-115) mg/dL Random Glucose 81 Calcium 9.1 Total Bilirubin 0.5 AST 20 D ALT 10 Alkaline Phosphatase 138 H Troponin I High Sens (<3.5-35.0) ng/L Total Protein 8.2 H Albumin 3.3 L ECG Data Attestation: I personally reviewed and interpreted this ECG as follows: Prior ECG tracings: available for review Pacemaker model: Normal sinus rhythm 61 IVCD no ischemia Discharge Plan Discharge Clinical Impression: Abdominal pain Qualifiers: Abdominal location: generalized Qualified Code(s): R10.84 - Generalized abdominal pain Patient Disposition: Home, Self-Care Instructions: Abdominal Pain (ED) Prescriptions: No Action albuterol sulfate 2.5 mg /3 mL (0.083 %) Solution For Nebulization 2.5 mg inhalation Q4H PRN (Reason: Shortness Of Breath Or Wheezing) RF: 0 (DME) lancets Misc MISCELLANEOUS RF: 0 famotidine [Pepcid] 20 mg Tablet 20 mg PO BID RF: 0 (DME) blood-glucose meter [FreeStyle [place] Lite] Kit MISCELLANEOUS RF: 0 (DME) cane Device MISCELLANEOUS RF: 0 (DME) FreeStyle Lite Strips RF: 0 magnesium oxide [MagOx] 400 mg (241.3 mg magnesium) Tablet 400 mg PO DAILY RF: 0 (DME) pen needle, diabetic Needle MISCELLANEOUS RF: 0 methadone 10 mg/mL Concentrate 50 mg PO QAM RF: 0 albuterol sulfate 90 mcg/actuation Hfa Aerosol Inhaler 2 puff INHALATION Q4H PRN (Reason: Shortness Of Breath) RF: 0 zinc sulfate 110 mg (25 mg zinc) Tablet 220 mg PO DAILY RF: 0 spironolactone 25 mg Tablet 12.5 mg PO DAILY RF: 0 sennosides [senna] 8.6 mg Tablet 8.6 mg PO BEDTIME PRN (Reason: Constipation) RF: 0 Lantus U-100 Insulin 100 unit/mL Solution 12 unit SUBCUT QPM RF: 0 cetirizine 10 mg Tablet 10 mg PO DAILY RF: 0 aspirin 81 mg Tablet,Delayed Release (Dr/Ec) 81 mg PO DAILY RF: 0 insulin lispro 100 unit/mL Solution 5 unit SUBCUT TIDAC RF: 0 polyethylene glycol 3350 [Miralax] 17 gram/dose Powder 17 g PO DAILY RF: 0 carvedilol 6.25 mg Tablet 6.25 mg PO BID RF: 0 atorvastatin 20 mg Tablet 20 mg PO BEDTIME RF: 0 lidocaine [Lidocaine Pain Relief] 4 % Adhesive Patch,Medicated 1 patch TOPICAL DAILY PRN (Reason: Pain) RF: 0 clopidogrel 75 mg Tablet 75 mg PO DAILY RF: 0 tamsulosin 0.4 mg Capsule 0.4 mg PO DAILY RF: 0 fluticasone propion-salmeterol [Advair Diskus] 500-50 mcg/dose Blister With Device 1 inh INHALATION BID RF: 0 losartan 25 mg Tablet 25 mg PO DAILY RF: 0 montelukast 10 mg Tablet 10 mg PO BEDTIME RF: 0 gabapentin 100 mg Capsule 200 mg PO TID RF: 0 ergocalciferol (vitamin D2) 1,250 mcg (50,000 unit) Capsule 1,250 mcg PO QWEEK RF: 0 fluticasone propionate [Flonase Allergy Relief] 50 mcg/actuation [place],Suspension 1 spray INTRANASAL DAILY RF: 0 oxycodone 5 mg Tablet 5 mg PO Q6H PRN (Reason: Pain (Scale Score 1-3)) RF: 0 clotrimazole 1 % Cream 1 applic TOPICAL TID RF: 0 Eucerin Cream 1 applic TOPICAL DAILY PRN (Reason: Dry Skin) RF: 0 oxycodone 5 mg tablet 5 mg PO Q6H PRN (Reason: pain) Qty: 20 RF: 0 furosemide 40 mg Tablet 80 mg PO DAILY Qty: 60 RF: 0 furosemide 40 mg Tablet 40 mg PO DAILY@1700 Qty: 30 RF: 0 Referrals: [facility] [Primary Care Provider] - 2 days (Please call your primary care physician on Monday to make an appointment for follow-up, also call you vp scientific Dr. Neves with for follow-up. Return to the emergency depart with develop fever shortness of breath he feel worse)
[2020-10-04 07:33] LABS: MANUAL DIFF FLAG NO
[2020-10-04 07:36] LABS: Basophils Percent Auto 0.3 % (0-2); Eosinophils Absolute Auto 0.3 X10*3/uL (0.0-0.4); Eosinophils Percent Auto 2.6 % (0-4); Hematocrit 38.5 % (42-52); Hemoglobin 11.9 g/dl (14.0-18.0); Imm Gran Abs Auto 0.04 X10*3/uL (0.00-0.03); Imm Gran Pct Auto 0.4 % (0.0-0.4); Lymphocytes Percent Auto 10.6 % (20-40); Mean Corpuscular HGB Conc 30.9 g/dl (31.0-36.0); Mean Corpuscular Hemoglobin 25.3 pg (27.0-33.0); Mean Corpuscular Volume 81.7 fL (80-98); Mean Platelet Volume 8.9 fL (9.4-12.4); Monocytes Percent Auto 10.3 % (2-11); Neutrophils Absolute Auto 7.4 X10*3/uL (2.0-8.3); Neutrophils Percent Auto 75.8 % (45-73); Platelet Count 335 X10*3/uL (160-400); Red Blood Count 4.71 X10*6/uL (4.60-5.80); Red Cell Distribution Width 15.8 % (11.0-16.0); White Blood Count 9.8 X10*3/uL (4.8-10.8)
[2020-10-04 07:45] LABS: INTERNATIONAL NORM RATIO 1.2 (0.9-1.1); Prothrombin Time 13.9 SEC (10.8-13.0)
[2020-10-04 08:04] LABS: Troponin-I High Sensitivity 13.8 ng/L (<3.5-35.0)
[2020-10-04 08:04] LABS: D Dimer 778 NG/ML
[2020-10-04 08:39] LABS: Alanine Aminotransferase 10 U/L (0-40); Albumin Level 3.3 g/dL (3.5-5.0); Alkaline Phosphatase 138 U/L (39-117); Anion Gap 14 (12-20); Aspartate Amino Transferase 20 U/L (5-37); Bilirubin Total 0.5 mg/dL (0.0-1.0); Blood Urea Nitrogen 23 mg/dL (9-16); Calcium 9.1 mg/dL (8.4-10.2); Carbon Dioxide 27 mmol/L (22-29); Chloride 99 mmol/L (96-108); Creatinine Clr Calc Pharmacy 92.8; Estimated Glomerular Filt Rate > 60; Glucose Random 81 mg/dL (60-115); Potassium 3.9 mmol/l (3.3-5.1); Sodium 136 mmol/L (135-145); Total Protein 8.2 g/dL (6.5-8.0)
--- NOTE | 2020-10-04 08:45 | PC.NURSE ---
METHADONE 50MG DAILY, DOSE CONFIRMED BY JOHN RN. LAST TAKEN YESTERDAY AM. UNABLE TO ACQUIRE LAST DOSE LETTER AT THIS TIME, PHARMACY AWARE.
--- NOTE | 2020-10-04 08:47 | CT_ITS ---
EXAMINATION: CT ABDOMEN AND PELVIS WITHOUT CONTRAST CLINICAL INFORMATION: Right-sided pain COMPARISON: Previous abdominal ultrasound August [address] of the abdomen and pelvis most recent June 2020 TECHNIQUE: Multidetector volumetric imaging was performed from the superior aspect of the liver through the pubic symphysis. Sagittal and coronal reformatted images were obtained on the technologist's workstation. This CT examination was performed using dose optimization techniques as appropriate, variously including the following: *Automated exposure control *Adjustment of mA and/or kV according to patient size (this includes techniques or standardized protocols for targeted exams where dose is matched to indication/reason for exam; i.e. extremities or head) *Use of iterative reconstruction technique DLP: 421 mGy-cm FINDINGS: LUNG BASES: The heart is enlarged. There is subsegmental atelectasis in the lower lobes. There is abnormal soft tissue seen in the lower chest wall surrounding the sternum and bilateral lower ribs and costochondral cartilage. This is similar to previous exam. LIVER, GALLBLADDER, AND BILIARY TREE: The liver is slightly enlarged. There is a small calcification in the left lobe of the liver. No other focal liver lesion is seen. There are gallstones in the gallbladder. There is no biliary duct dilatation. PANCREAS: Unremarkable. SPLEEN: Unremarkable. ADRENAL GLANDS: Unremarkable. KIDNEYS AND URETERS: The kidneys are normal in size, shape, and attenuation. No hydronephrosis, hydroureter, or calculi seen. No perinephric stranding. BLADDER: Unremarkable. GASTROINTESTINAL TRACT: There is stool throughout the colon suggestive of constipation. Small and large bowel is otherwise unremarkable. The appendix is not identified. The stomach is unremarkable. ABDOMINAL WALL: No significant hernia is appreciated. LYMPH NODES: Normal. VASCULAR: There is evidence of severe atherosclerotic disease. PELVIC VISCERA: The prostate gland does not appear enlarged. There is a small amount of fluid in the pelvis. OSSEOUS STRUCTURES: There are mild degenerative changes of the spine. CT/CT abdomen pelvis wo con IMPRESSION: Abnormal soft tissue in the low anterior chest wall surrounding the lower sternum and bilateral anterior lower ribs costochondral cartilage, right greater than left. No bone destruction is seen. This is similar to previous exam probably represents an infectious or inflammatory process. Enlarged heart. Slightly enlarged liver. Gallstones. Constipation. Severe atherosclerotic disease.
--- NOTE | 2020-10-04 09:44 | PC.NURSE ---
PT TO CT SCAN
[2020-10-04 09:56] VITALS: BP 122/53; PULSE 66; RESP 16; O2SAT 96
[2020-10-04 10:35] VITALS: TEMP 36.8
[2020-10-04 10:50] VITALS: PULSE 72; O2SAT 100
== END 2020-10-04 11:23 | disposition home or self-care (01) ==
PROVIDERS: Emergency Provider Emergency Medicine
DX: R10.12 Left upper quadrant pain (principal); E11.9 Type 2 diabetes mellitus without complications; R07.9 Chest pain, unspecified; F17.200 Nicotine dependence, unspecified, uncomplicated; Z71.6 Tobacco abuse counseling; F12.90 Cannabis use, unspecified, uncomplicated; Z79.899 Other long term (current) drug therapy
CPT/HCPCS: 36415; 71046; 74176; 80053; 82947; 84484; 85025; 85379; 85610; 93005; 99284

== ENCOUNTER 2020-10-09 07:11 | Emergency (ER) | payer MEDICAID, SELFPAY ==
[2020-10-09 07:18] VITALS: BP 122/68; PULSE 70; PULSE 86; RESP 18; TEMP 36.5; O2SAT 98; BMI 21.1
--- NOTE | 2020-10-09 07:22 | XR_ITS ---
EXAMINATION: XR CHEST CLINICAL INFORMATION: SOB. COMPARISON: Chest 10/04/2020 TECHNIQUE: Frontal view of the chest was obtained. FINDINGS: The lungs are well expanded with slightly prominent interstitial markings, but no pneumonic consolidation. There is no pleural effusion. Heart size and pulmonary vascularity is normal. No gross bony abnormality seen. XR/XR chest 1V IMPRESSION: Slightly prominent interstitial markings, but no acute cardiopulmonary process seen.
--- NOTE | 2020-10-09 07:22 | ECG_ITS ---
Test Reason : CHEST PAIN Blood Pressure : / mmHG Vent. Rate : 082 BPM Atrial Rate : 082 BPM P-R Int : 166 ms QRS Dur : 112 ms QT Int : 388 ms P-R-T Axes : 036 -20 123 degrees QTc Int : 453 ms Normal sinus rhythm Left axis deviation ST & T wave abnormality, consider lateral ischemia Abnormal ECG When compared with ECG of 04-OCT-2020 08:06, Heart rate has increased Referred By: Jeny Panchal Electronically Signed By:CRISTIAN SU MD
--- NOTE | 2020-10-09 07:26 | ED.CHESTPAIN ---
HPI - Chest Pain General Chief Complaint: Chest Pain Stated Complaint: chest wall pain Time Seen by Provider: 10/09/20 07:15 History of Present Illness HPI narrative: 50-year-old male with a history of diabetes, cardiomyopathy. Has a baseline EF of 10-15%. Presents today with having chest pain. Chest pain similar to previous episodes. Patient claims been fairly constant since Monday. It is worse with deep breath and worse with movement and worse with coughing. No fever no chills. No focal weakness. Patient from home. No recent travel. Denies any trauma. Pain is sharp. It goes to the back. Related Data Home Medications Medication Instructions Recorded Confirmed FreeStyle Lite Strips 08/12/20 08/12/20 albuterol sulfate 2 puff INHALATION Q4H PRN 08/12/20 09/05/20 albuterol sulfate 2.5 mg INHALATION Q4H PRN 08/12/20 09/05/20 blood-glucose meter [FreeStyle 08/12/20 08/12/20 [place] Lite] cane 08/12/20 08/12/20 famotidine [Pepcid] 20 mg PO BID 08/12/20 09/05/20 lancets 08/12/20 08/12/20 magnesium oxide [MagOx] 400 mg PO DAILY 08/12/20 09/05/20 methadone 50 mg PO QAM 08/12/20 09/05/20 pen needle, diabetic 08/12/20 08/12/20 Eucerin 1 applic TOPICAL DAILY PRN 08/14/20 09/05/20 Lantus U-100 Insulin 12 unit SUBCUT QPM 08/14/20 09/05/20 aspirin 81 mg PO DAILY 08/14/20 09/05/20 atorvastatin 20 mg PO BEDTIME 08/14/20 09/05/20 carvedilol 6.25 mg PO BID 08/14/20 09/05/20 cetirizine 10 mg PO DAILY 08/14/20 09/05/20 clopidogrel 75 mg PO DAILY 08/14/20 09/05/20 clotrimazole 1 applic TOPICAL TID 08/14/20 09/05/20 ergocalciferol (vitamin D2) 1,250 mcg PO QWEEK 08/14/20 09/05/20 fluticasone propion-salmeterol 1 inh INHALATION BID 08/14/20 09/05/20 [Advair Diskus] fluticasone propionate [Flonase 1 spray INTRANASAL DAILY 08/14/20 09/05/20 Allergy Relief] gabapentin 200 mg PO TID 08/14/20 09/05/20 insulin lispro 5 unit SUBCUT TIDAC 08/14/20 09/05/20 lidocaine [Lidocaine Pain Relief] 1 patch TOPICAL DAILY PRN 08/14/20 09/05/20 losartan 25 mg PO DAILY 08/14/20 09/05/20 montelukast 10 mg PO BEDTIME 08/14/20 09/05/20 oxycodone 5 mg PO Q6H PRN 08/14/20 09/05/20 polyethylene glycol 3350 [Miralax] 17 g PO DAILY 08/14/20 09/05/20 sennosides [senna] 8.6 mg PO BEDTIME PRN 08/14/20 09/05/20 spironolactone 12.5 mg PO DAILY 08/14/20 09/05/20 tamsulosin 0.4 mg PO DAILY 08/14/20 09/05/20 zinc sulfate 220 mg PO DAILY 08/14/20 09/05/20 Previous Rx's Medication Instructions Recorded oxycodone 5 mg PO Q6H PRN #20 tab 08/24/20 furosemide 40 mg PO DAILY@1700 #30 tab 09/04/20 furosemide 80 mg PO DAILY #60 tab 09/04/20 Allergies Allergy/AdvReac Type Severity Reaction Status Date / Time vancomycin [VANCOMYCIN] Allergy Intermediate HIVES Verified 10/04/20 06:49 Chocolate Allergy Unknown Rash Verified 10/04/20 06:49 ciprofloxacin [From CIPRO] Allergy Unknown SWELLING Verified 10/04/20 06:49 ertapenem Allergy Unknown Hives Verified 10/04/20 06:49 hydrocortisone [Cipro HC] Allergy Unknown Unknown Verified 10/04/20 06:49 sulfamethoxazole Allergy Unknown rash Verified 10/04/20 06:49 [From BACTRIM] trimethoprim [From BACTRIM] Allergy Unknown rash Verified 10/04/20 06:49 turkey [TURKEY] Allergy Unknown RASH Verified 10/04/20 06:49 From INVANZ Allergy Intermediate HIVES Uncoded 10/04/20 06:49 choclate Allergy Unknown rash Uncoded 10/04/20 06:49 Review of Systems Review of Systems: Constitutional: No Weight loss, No Fever, No Chills, No Night Sweats, No Fatigue, No Malaise ENT/Mouth: No Hearing loss, No Ear Pain, No Nasal Congestion, No Sinus Pain, No Hoarseness, No sore throat, No Rhinorrhea, No Swallowing Difficulty Eyes: No Eye Pain, No Swelling, No Redness, No Foreign Body, No Discharge, No Vision Changes Cardiovascular: Positive Chest Pain, No SOB, No Dyspnea on Exertion, No Orthopnea, No Edema, No Palpitations Respiratory: No Cough, No Sputum, No Wheezing, No Smoke Exposure, No Dyspnea Gastrointestinal: No Nausea, No Vomiting, No Diarrhea, No Constipation, No abdominal Pain, No Hematochezia, No Melena Genitourinary: no irregular bleeding, No Dysuria, No Urinary Frequency, No Hematuria, No Urinary Incontinence, No Urgency, No Flank Pain, No Urinary Flow Changes, No Hesitancy Musculoskeletal: No joint pain, No Myalgias, No Joint Swelling Skin: No Skin Lesions, No rash Neuro: No Weakness, No Numbness, No Paresthesias, No Loss of Consciousness, No Dizziness, No Headache Psych: No Anxiety/Panic, No Depression, No SI/HI/AH/VH, No Social Issues, Heme/Lymph: No Bruising, No Bleeding,No Lymphadenopathy Endocrine: No Polyuria, No Polydipsia, No Temperature Intolerance [facility] Past Medical History Attestation statement: The following information was validated with the patient. Medical History Acute on chronic anemia Acute on chronic combined systolic and diastolic congestive heart failure Asthma Bipolar 1 disorder BPH (benign prostatic hyperplasia) Chest pain Cholelithiasis Congestive cardiac failure COPD (chronic obstructive pulmonary disease) Diabetes mellitus, type 2 GERD (gastroesophageal reflux disease) Hyperlipidemia Peripheral neuropathy Substance abuse Surgical History History of amputation History of laminectomy History of transurethral resection of prostate Hx of BKA Family History Family History Father Chronic mental illness Hypertension Asthma Stroke Mother Asthma Diabetes Coronary artery disease Social History Social History Alcohol intake: former Smoking Status: Never smoker Use of substances other than those prescribed or required for medical reasons: No Substance Use Type: Marijuana Advance Directives: No Advance Directives Information Provided: Yes service: No Current occupational status: disabled Physical Exam Vital Signs: Vital Signs: Last Vital Signs Temp 97.7 F 10/09/20 07:18 Pulse 86 10/09/20 07:18 Resp 18 10/09/20 07:18 Pulse Ox 98 10/09/20 07:18 Body Mass Index 21.1 Appearance: Alert. Oriented X3. No acute distress. Eyes: Pupils equal, round and reactive to light. ENT: Pharynx normal. Neck: Normal inspection. Neck supple. No lymph nodes noted. No crepitus CVS: Normal heart rate and rhythm. Pulses normal. Normal S1 and S2 Respiratory: No respiratory distress. Breath sounds normal. No Wheezing. No rales Abdomen: Soft and nontender. No rigidity. No distention. good BS x4 Skin: Skin warm and dry. Normal skin color. Normal skin turgor. Extremities: No lower extremity edema. Neurovascular intact to all extremities. No Lacerations. No Rash Neuro: Oriented X 3. No motor deficit. No sensory deficit. Moving all extermities. No slurred speech MDM - Chest Pain MDM Narrative Medical decision making narrative: Patient has chest pain radiating to the back worse with deep breath. Had previous CTA done in the past showed no evidence of dissection at the time. No PE at the time. Patient again complaining of similar pain. Refused to get further study refused to stay in the hospital for the labs. Patient understood the risk of blood clot. Risk of . Risk of heart attack. Leaving against medical advice. Explained to patient he can come back at any time. Patient states understanding. Lab Data Result diagrams: 10/09/20 07:38 10/09/20 07:38 Labs: Lab Results 10/09/20 10/09/20 10/09/20 Range/Units 07:38 07:38 07:38 WBC 11.7 H (4.8-10.8) X10*3/uL RBC 5.04 (4.60-5.80) X10*6/uL Hgb 12.7 L (14.0-18.0) g/dl Hct 41.3 L (42-52) % MCV 81.9 (80-98) fL MCH 25.2 L (27.0-33.0) pg MCHC 30.8 L (31.0-36.0) g/dl RDW 15.5 (11.0-16.0) % Plt Count 338 (160-400) X10*3/uL MPV 8.7 L (9.4-12.4) fL Immature Gran % (Auto) 0.3 (0.0-0.4) % Neut % (Auto) 76.3 H (45-73) % Lymph % (Auto) 11.5 L (20-40) % [place] % (Auto) 11.0 (2-11) % Eos % (Auto) 0.6 (0-4) % Baso % (Auto) 0.3 (0-2) % Lymph # (Auto) 1.4 (1.2-4.9) X10*3/uL [place] # (Auto) 1.3 H (0.1-1.2) X10*3/uL Eos # (Auto) 0.1 (0.0-0.4) X10*3/uL Baso # (Auto) 0.0 (0.0-0.2) X10*3/uL Abs Immat Gran (auto) 0.03 (0.00-0.03) X10*3/uL Absolute Neuts (auto) 9.0 H (2.0-8.3) X10*3/uL Absolute Nucleated RBC 0.000 (0.0-0.012) X10*3/uL Nucleated RBC % (auto) 0.0 (0.0-0.2) /100WBC D-Dimer 644 NG/ML Hold Blue Top SEE NOTE Sodium 132 L (135-145) mmol/L Potassium 4.1 (3.3-5.1) mmol/l Chloride 96 (96-108) mmol/L Carbon Dioxide 29 (22-29) mmol/L Anion Gap 11 L (12-20) BUN 32 H (9-16) mg/dL Creatinine 0.90 (0.5-1.4) mg/dL Estim Creat Clear Calc 85.5 Estimated GFR > 60 Random Glucose 196 H D (60-115) mg/dL Calcium 9.2 (8.4-10.2) mg/dL ECG Data ECG #1: Interpretation: Sinus heart rate is 80 [place] QRS QT within normal limits there is T-wave flattening over the lateral leads this is old. There is no acute changes compared to an EKG from October 04. Discharge Plan Discharge Clinical Impression: Chest pain, Left against medical advice Patient Disposition: Left Against Medical Advice Instructions: Chest Pain (ED), Against Medical Advice (ED) Additional Instructions: Please come back at any time if she changed her mind. You could have a heart attack, congestive heart failure, stroke, blood clot in your lungs. Prescriptions: No Action albuterol sulfate 2.5 mg /3 mL (0.083 %) Solution For Nebulization 2.5 mg inhalation Q4H PRN (Reason: Shortness Of Breath Or Wheezing) RF: 0 (DME) lancets Misc MISCELLANEOUS RF: 0 famotidine [Pepcid] 20 mg Tablet 20 mg PO BID RF: 0 (DME) blood-glucose meter [FreeStyle [place] Lite] Kit MISCELLANEOUS RF: 0 (DME) cane Device MISCELLANEOUS RF: 0 (DME) FreeStyle Lite Strips RF: 0 magnesium oxide [MagOx] 400 mg (241.3 mg magnesium) Tablet 400 mg PO DAILY RF: 0 (DME) pen needle, diabetic Needle MISCELLANEOUS RF: 0 methadone 10 mg/mL Concentrate 50 mg PO QAM RF: 0 albuterol sulfate 90 mcg/actuation Hfa Aerosol Inhaler 2 puff INHALATION Q4H PRN (Reason: Shortness Of Breath) RF: 0 zinc sulfate 110 mg (25 mg zinc) Tablet 220 mg PO DAILY RF: 0 spironolactone 25 mg Tablet 12.5 mg PO DAILY RF: 0 sennosides [senna] 8.6 mg Tablet 8.6 mg PO BEDTIME PRN (Reason: Constipation) RF: 0 Lantus U-100 Insulin 100 unit/mL Solution 12 unit SUBCUT QPM RF: 0 cetirizine 10 mg Tablet 10 mg PO DAILY RF: 0 aspirin 81 mg Tablet,Delayed Release (Dr/Ec) 81 mg PO DAILY RF: 0 insulin lispro 100 unit/mL Solution 5 unit SUBCUT TIDAC RF: 0 polyethylene glycol 3350 [Miralax] 17 gram/dose Powder 17 g PO DAILY RF: 0 carvedilol 6.25 mg Tablet 6.25 mg PO BID RF: 0 atorvastatin 20 mg Tablet 20 mg PO BEDTIME RF: 0 lidocaine [Lidocaine Pain Relief] 4 % Adhesive Patch,Medicated 1 patch TOPICAL DAILY PRN (Reason: Pain) RF: 0 clopidogrel 75 mg Tablet 75 mg PO DAILY RF: 0 tamsulosin 0.4 mg Capsule 0.4 mg PO DAILY RF: 0 fluticasone propion-salmeterol [Advair Diskus] 500-50 mcg/dose Blister With Device 1 inh INHALATION BID RF: 0 losartan 25 mg Tablet 25 mg PO DAILY RF: 0 montelukast 10 mg Tablet 10 mg PO BEDTIME RF: 0 gabapentin 100 mg Capsule 200 mg PO TID RF: 0 ergocalciferol (vitamin D2) 1,250 mcg (50,000 unit) Capsule 1,250 mcg PO QWEEK RF: 0 fluticasone propionate [Flonase Allergy Relief] 50 mcg/actuation [place],Suspension 1 spray INTRANASAL DAILY RF: 0 oxycodone 5 mg Tablet 5 mg PO Q6H PRN (Reason: Pain (Scale Score 1-3)) RF: 0 clotrimazole 1 % Cream 1 applic TOPICAL TID RF: 0 Eucerin Cream 1 applic TOPICAL DAILY PRN (Reason: Dry Skin) RF: 0 oxycodone 5 mg tablet 5 mg PO Q6H PRN (Reason: pain) Qty: 20 RF: 0 furosemide 40 mg Tablet 80 mg PO DAILY Qty: 60 RF: 0 furosemide 40 mg Tablet 40 mg PO DAILY@1700 Qty: 30 RF: 0 Referrals: [facility] [Primary Care Provider] - 1 day
--- NOTE | 2020-10-09 07:43 | PC.NURSE ---
seen by provider, labs done, iv access. waiting on CT scan
[2020-10-09 07:45] LABS: Basophils Percent Auto 0.3 % (0-2); Eosinophils Absolute Auto 0.1 X10*3/uL (0.0-0.4); Eosinophils Percent Auto 0.6 % (0-4); Hematocrit 41.3 % (42-52); Hemoglobin 12.7 g/dl (14.0-18.0); Imm Gran Abs Auto 0.03 X10*3/uL (0.00-0.03); Imm Gran Pct Auto 0.3 % (0.0-0.4); Lymphocytes Absolute Auto 1.4 X10*3/uL (1.2-4.9); Lymphocytes Percent Auto 11.5 % (20-40); Mean Corpuscular HGB Conc 30.8 g/dl (31.0-36.0); Mean Corpuscular Hemoglobin 25.2 pg (27.0-33.0); Mean Corpuscular Volume 81.9 fL (80-98); Mean Platelet Volume 8.7 fL (9.4-12.4); Monocytes Absolute Auto 1.3 X10*3/uL (0.1-1.2); Neutrophils Percent Auto 76.3 % (45-73); Platelet Count 338 X10*3/uL (160-400); Red Blood Count 5.04 X10*6/uL (4.60-5.80); Red Cell Distribution Width 15.5 % (11.0-16.0); White Blood Count 11.7 X10*3/uL (4.8-10.8)
[2020-10-09 07:46] LABS: MANUAL DIFF FLAG NO
[2020-10-09 07:53] LABS: D Dimer 644 NG/ML
[2020-10-09 08:09] LABS: Anion Gap 11 (12-20); Blood Urea Nitrogen 32 mg/dL (9-16); Calcium 9.2 mg/dL (8.4-10.2); Carbon Dioxide 29 mmol/L (22-29); Chloride 96 mmol/L (96-108); Creatinine Clr Calc Pharmacy 85.5; Estimated Glomerular Filt Rate > 60; Glucose Random 196 mg/dL (60-115); Potassium 4.1 mmol/l (3.3-5.1); Sodium 132 mmol/L (135-145)
[2020-10-09 08:17] LABS: Troponin-I High Sensitivity 12.2 ng/L (<3.5-35.0)
== END 2020-10-09 08:41 | disposition left against medical advice (07) ==
PROVIDERS: Emergency Provider Emergency Medicine Emergency Medical Services
DX: R07.89 Other chest pain (principal); R05 Cough; E11.9 Type 2 diabetes mellitus without complications; Z79.899 Other long term (current) drug therapy
CPT/HCPCS: 36415; 71045; 80048; 84484; 85025; 85379; 93005; 99284

== ENCOUNTER 2020-10-10 15:07 | Emergency (ER) | payer MEDICAID, SELFPAY ==
[2020-10-10 15:33] VITALS: BP 108/53; PULSE 63; RESP 16; TEMP 36.8; O2SAT 100; BMI 21.6
--- NOTE | 2020-10-10 15:40 | ED.CHESTPAIN ---
HPI - Chest Pain General Chief Complaint: Chest Pain Stated Complaint: multiple complaints Time Seen by Provider: 10/10/20 15:40 Source: patient Mode of arrival: ambulatory History of Present Illness HPI narrative: 50-year-old male with a past medical history of diabetes, COPD, cardiomyopathy, baseline EF 10-15%, PVD, presenting to ED complaining of bilateral chest pain since last night. Patient reports similar symptoms in the past, was seen in the ED last night for same symptoms, but left AMA prior to complete workup. Reports pain worse with movement and breathing, with associated SOB. Denies fever, chills, LE edema, cough, abdominal pain, nausea/vomiting, recent travel MD complaint: chest pain and chest discomfort Related Data Home Medications Medication Instructions Recorded Confirmed FreeStyle Lite Strips 08/12/20 08/12/20 albuterol sulfate 2 puff INHALATION Q4H PRN 08/12/20 09/05/20 albuterol sulfate 2.5 mg INHALATION Q4H PRN 08/12/20 09/05/20 blood-glucose meter [FreeStyle 08/12/20 08/12/20 [place] Lite] cane 08/12/20 08/12/20 famotidine [Pepcid] 20 mg PO BID 08/12/20 09/05/20 lancets 08/12/20 08/12/20 magnesium oxide [MagOx] 400 mg PO DAILY 08/12/20 09/05/20 methadone 50 mg PO QAM 08/12/20 09/05/20 pen needle, diabetic 08/12/20 08/12/20 Eucerin 1 applic TOPICAL DAILY PRN 08/14/20 09/05/20 Lantus U-100 Insulin 12 unit SUBCUT QPM 08/14/20 09/05/20 aspirin 81 mg PO DAILY 08/14/20 09/05/20 atorvastatin 20 mg PO BEDTIME 08/14/20 09/05/20 carvedilol 6.25 mg PO BID 08/14/20 09/05/20 cetirizine 10 mg PO DAILY 08/14/20 09/05/20 clopidogrel 75 mg PO DAILY 08/14/20 09/05/20 clotrimazole 1 applic TOPICAL TID 08/14/20 09/05/20 ergocalciferol (vitamin D2) 1,250 mcg PO QWEEK 08/14/20 09/05/20 fluticasone propion-salmeterol 1 inh INHALATION BID 08/14/20 09/05/20 [Advair Diskus] fluticasone propionate [Flonase 1 spray INTRANASAL DAILY 08/14/20 09/05/20 Allergy Relief] gabapentin 200 mg PO TID 08/14/20 09/05/20 insulin lispro 5 unit SUBCUT TIDAC 08/14/20 09/05/20 lidocaine [Lidocaine Pain Relief] 1 patch TOPICAL DAILY PRN 08/14/20 09/05/20 losartan 25 mg PO DAILY 08/14/20 09/05/20 montelukast 10 mg PO BEDTIME 08/14/20 09/05/20 oxycodone 5 mg PO Q6H PRN 08/14/20 09/05/20 polyethylene glycol 3350 [Miralax] 17 g PO DAILY 08/14/20 09/05/20 sennosides [senna] 8.6 mg PO BEDTIME PRN 08/14/20 09/05/20 spironolactone 12.5 mg PO DAILY 08/14/20 09/05/20 tamsulosin 0.4 mg PO DAILY 08/14/20 09/05/20 zinc sulfate 220 mg PO DAILY 08/14/20 09/05/20 Previous Rx's Medication Instructions Recorded oxycodone 5 mg PO Q6H PRN #20 tab 08/24/20 furosemide 40 mg PO DAILY@1700 #30 tab 09/04/20 furosemide 80 mg PO DAILY #60 tab 09/04/20 Allergies Allergy/AdvReac Type Severity Reaction Status Date / Time vancomycin [VANCOMYCIN] Allergy Intermediate HIVES Verified 10/04/20 06:49 Chocolate Allergy Unknown Rash Verified 10/04/20 06:49 ciprofloxacin [From CIPRO] Allergy Unknown SWELLING Verified 10/04/20 06:49 ertapenem Allergy Unknown Hives Verified 10/04/20 06:49 hydrocortisone [Cipro HC] Allergy Unknown Unknown Verified 10/04/20 06:49 sulfamethoxazole Allergy Unknown rash Verified 10/04/20 06:49 [From BACTRIM] trimethoprim [From BACTRIM] Allergy Unknown rash Verified 10/04/20 06:49 turkey [TURKEY] Allergy Unknown RASH Verified 10/04/20 06:49 From INVANZ Allergy Intermediate HIVES Uncoded 10/04/20 06:49 choclate Allergy Unknown rash Uncoded 10/04/20 06:49 Review of Systems Review of Systems: Constitutional: No Weight loss, No Fever, No Chills Cardiovascular: +Chest Pain, + SOB, No Dyspnea on Exertion, No Orthopnea, No Edema Respiratory: No Cough, No Sputum Gastrointestinal: No Nausea, No Vomiting, No Diarrhea, No Constipation, No Abdominal pain Musculoskeletal: No joint pain, No Myalgias, No Joint Swelling Skin: No Skin Lesions, No rash Yes all other systems are reviewed and are negative [facility] Past Medical History Attestation statement: The following information was validated with the patient. Medical History Acute on chronic anemia Acute on chronic combined systolic and diastolic congestive heart failure Asthma Bipolar 1 disorder BPH (benign prostatic hyperplasia) Chest pain Cholelithiasis Congestive cardiac failure COPD (chronic obstructive pulmonary disease) Diabetes mellitus, type 2 GERD (gastroesophageal reflux disease) Hyperlipidemia Peripheral neuropathy Substance abuse Surgical History History of amputation History of laminectomy History of transurethral resection of prostate Hx of BKA Family History Family History Father Chronic mental illness Hypertension Asthma Stroke Mother Asthma Diabetes Coronary artery disease Social History Social History Alcohol intake: never Smoking Status: Never smoker Use of substances other than those prescribed or required for medical reasons: No Substance Use Type: Marijuana Advance Directives: No Advance Directives Information Provided: Yes service: No Current occupational status: disabled Physical Exam Vital Signs: Vital Signs: Last Vital Signs Temp 98.3 F 10/10/20 15:33 Pulse 85 10/10/20 18:24 Resp 16 10/10/20 15:33 BP 108/53 L 10/10/20 15:33 Pulse Ox 100 10/10/20 15:33 Body Mass Index 21.6 Const: General: cooperative Orientation/consciousness: patient oriented x3 Limitations: no limitations HENMT: Head: Yes normal to inspection Ears: hearing grossly normal bilaterally General nose exam: Normal external nose present Face and sinus: Yes normal facial exam Eyes: General: appearance normal, both eyes and all related structures EOM: EOMs intact bilaterally Neck: Neck: Yes normal visual inspection Chest: Other: +ttp diffusely over bilateral chest rader Chest palpation & inspection: normal inspection of the chest and no crepitus Resp: Other: Slight bibasilar expiratory wheeze. Good air movement Effort & Inspection: normal respiratory effort Auscultation: no crackles and no rhonchi Cardio: Rate: regular rate Heart sounds: S1 normal heart sound present and S2 normal heart sound present GI: Inspection: Yes normal to inspection Palpation (GI): Soft to palpation, nontender, no guarding and not rigid Skin: Rashes: no rashes Wounds: no wounds Neuro: General: patient oriented x3 Gait exam (Neuro): Normal gait present Extrem: Other: No LE edema or calf tenderness Course Course Course Narrative: -mild leukocytosis 12.6, D-dimer chronically elevated but higher than previous two at 843 -BNP chronically elevated -troponin chronically elevated but higher than yesterday > will obtain 3 hr repeat -CTA without evidence of PE, small focal pleural-based consolidation the medial aspect of the right lower lobe > likely resolving atelectasis but with new leukocytosis will tx for PNA. Also noted on CT is nonspecific widening of the sternum > clinically no signs of infection on the external chest wall -2041-repeat troponin without delta Lab and imaging results discussed with patient with cafeteria manager. Will DC home with antibiotics and close PCP follow-up MDM - Chest Pain MDM Narrative Medical decision making narrative: 50-year-old male with a past medical history of diabetes, cardiomyopathy, COPD, baseline EF 10-15%, PVD, presenting to ED complaining of bilateral chest wall pain since last night. On exam VSS, no tachycardia or tachypnea, satting 100% on RA, NAD/well-appearing, chest pain reproducible, mild bibasilar expiratory wheeze. Patient with multiple recent ED visits w/similar sx & admission for CHF, last CTA on 08/30 which did not show PE. -Due to continuation of pain will obtain CTA today, as was desired last night prior to patient signing out AMA. Concern for costochondritis/MSK pain vs PE vs ACS vs vs COPD. Low concern for CHF at this time Labs/CXR reviewed from yesterday Plan: Labs, CTA, reassess Lab Data Result diagrams: 10/10/20 16:57 10/10/20 16:57 Labs: Lab Results 10/10/20 10/10/20 10/10/20 Range/Units 16:57 16:57 16:57 WBC 12.6 H (4.8-10.8) X10*3/uL RBC 5.55 (4.60-5.80) X10*6/uL Hgb 14.0 (14.0-18.0) g/dl Hct 45.1 (42-52) % MCV 81.3 (80-98) fL MCH 25.2 L (27.0-33.0) pg MCHC 31.0 (31.0-36.0) g/dl RDW 15.7 (11.0-16.0) % Plt Count 364 (160-400) X10*3/uL MPV 8.9 L (9.4-12.4) fL Immature Gran % (Auto) 0.3 (0.0-0.4) % Neut % (Auto) 79.8 H (45-73) % Lymph % (Auto) 10.3 L (20-40) % [place] % (Auto) 8.5 (2-11) % Eos % (Auto) 0.8 (0-4) % Baso % (Auto) 0.3 (0-2) % Lymph # (Auto) 1.3 (1.2-4.9) X10*3/uL [place] # (Auto) 1.1 (0.1-1.2) X10*3/uL Eos # (Auto) 0.1 (0.0-0.4) X10*3/uL Baso # (Auto) 0.0 (0.0-0.2) X10*3/uL Abs Immat Gran (auto) 0.04 H (0.00-0.03) X10*3/uL Absolute Neuts (auto) 10.1 H (2.0-8.3) X10*3/uL Absolute Nucleated RBC 0.000 (0.0-0.012) X10*3/uL Nucleated RBC % (auto) 0.0 (0.0-0.2) /100WBC D-Dimer 843 NG/ML Hold Blue Top SEE NOTE Sodium 131 L (135-145) mmol/L Potassium 4.5 (3.3-5.1) mmol/l Chloride 90 L (96-108) mmol/L Carbon Dioxide 29 (22-29) mmol/L Anion Gap 17 (12-20) BUN 27 H (9-16) mg/dL Creatinine 1.01 (0.5-1.4) mg/dL Estim Creat Clear Calc 73.5 Estimated GFR > 60 Random Glucose 133 H (60-115) mg/dL Calcium 9.6 (8.4-10.2) mg/dL Total Bilirubin 1.0 (0.0-1.0) mg/dL Direct Bilirubin 0.5 (0.0-0.5) mg/dL AST 25 (5-37) U/L ALT 11 (0-40) U/L Alkaline Phosphatase 135 H (39-117) U/L Troponin I High Sens (<3.5-35.0) ng/L B-Natriuretic Peptide (<100) pg/mL Total Protein 9.5 H (6.5-8.0) g/dL Albumin 3.8 (3.5-5.0) g/dL 10/10/20 10/10/20 Range/Units 16:57 19:39 WBC (4.8-10.8) X10*3/uL RBC (4.60-5.80) X10*6/uL Hgb (14.0-18.0) g/dl Hct (42-52) % MCV (80-98) fL MCH (27.0-33.0) pg MCHC (31.0-36.0) g/dl RDW (11.0-16.0) % Plt Count (160-400) X10*3/uL MPV (9.4-12.4) fL Immature Gran % (Auto) (0.0-0.4) % Neut % (Auto) (45-73) % Lymph % (Auto) (20-40) % [place] % (Auto) (2-11) % Eos % (Auto) (0-4) % Baso % (Auto) (0-2) % Lymph # (Auto) (1.2-4.9) X10*3/uL [place] # (Auto) (0.1-1.2) X10*3/uL Eos # (Auto) (0.0-0.4) X10*3/uL Baso # (Auto) (0.0-0.2) X10*3/uL Abs Immat Gran (auto) (0.00-0.03) X10*3/uL Absolute Neuts (auto) (2.0-8.3) X10*3/uL Absolute Nucleated RBC (0.0-0.012) X10*3/uL Nucleated RBC % (auto) (0.0-0.2) /100WBC D-Dimer NG/ML Hold Blue Top Sodium (135-145) mmol/L Potassium (3.3-5.1) mmol/l Chloride (96-108) mmol/L Carbon Dioxide (22-29) mmol/L Anion Gap (12-20) BUN (9-16) mg/dL Creatinine (0.5-1.4) mg/dL Estim Creat Clear Calc Estimated GFR Random Glucose (60-115) mg/dL Calcium (8.4-10.2) mg/dL Total Bilirubin (0.0-1.0) mg/dL Direct Bilirubin (0.0-0.5) mg/dL AST (5-37) U/L ALT (0-40) U/L Alkaline Phosphatase (39-117) U/L Troponin I High Sens 19.5 D 15.5 (<3.5-35.0) ng/L B-Natriuretic Peptide 1100 H (<100) pg/mL Total Protein (6.5-8.0) g/dL Albumin (3.5-5.0) g/dL Discharge Plan Discharge Clinical Impression: Atypical chest pain, Pneumonia Patient Disposition: Home, Self-Care Instructions: Chest Wall Pain (ED) Additional Instructions: Your blood work is pretty much at her baseline. Your CT scan did not show a blood clot, did show some nonspecific fluid in her right lung. We will treat you for pneumonia to be on the safe side, doxycycline as antibiotic, take as prescribed. You need to follow-up with your primary care doctor this week. Take Tylenol at home for pain. If her symptoms persist or worsen, you develop constant worsening chest pain, shortness of breath, or fever return to the ED Call an?lisis de aries est? pr?cticamente en call punto de woo. Call tomograf?a computarizada no mostr? un co?gulo de aries, mostr? algo de l?quido inespec?fico en call pulm?n derecho. Lo trataremos por neumon?a para estar seguro, doxiciclina raul antibi?mikel, t?bernstein seg?n lo prescrito. Debe hacer un seguimiento con call m?dico de atenci?n primaria esta semana. [place] Tylenol en casa para el dolor. Si emerald s?ntomas persisten o empeoran, presenta un empeoramiento reno de dolor en el pecho, dificultad para respirar o fiebre y regresa al servicio de urgencias. Prescriptions: No Action albuterol sulfate 2.5 mg /3 mL (0.083 %) Solution For Nebulization 2.5 mg inhalation Q4H PRN (Reason: Shortness Of Breath Or Wheezing) RF: 0 (DME) lancets Misc MISCELLANEOUS RF: 0 famotidine [Pepcid] 20 mg Tablet 20 mg PO BID RF: 0 (DME) blood-glucose meter [FreeStyle [place] Lite] Kit MISCELLANEOUS RF: 0 (DME) cane Device MISCELLANEOUS RF: 0 (DME) FreeStyle Lite Strips RF: 0 magnesium oxide [MagOx] 400 mg (241.3 mg magnesium) Tablet 400 mg PO DAILY RF: 0 (DME) pen needle, diabetic Needle MISCELLANEOUS RF: 0 methadone 10 mg/mL Concentrate 50 mg PO QAM RF: 0 albuterol sulfate 90 mcg/actuation Hfa Aerosol Inhaler 2 puff INHALATION Q4H PRN (Reason: Shortness Of Breath) RF: 0 zinc sulfate 110 mg (25 mg zinc) Tablet 220 mg PO DAILY RF: 0 spironolactone 25 mg Tablet 12.5 mg PO DAILY RF: 0 sennosides [senna] 8.6 mg Tablet 8.6 mg PO BEDTIME PRN (Reason: Constipation) RF: 0 Lantus U-100 Insulin 100 unit/mL Solution 12 unit SUBCUT QPM RF: 0 cetirizine 10 mg Tablet 10 mg PO DAILY RF: 0 aspirin 81 mg Tablet,Delayed Release (Dr/Ec) 81 mg PO DAILY RF: 0 insulin lispro 100 unit/mL Solution 5 unit SUBCUT TIDAC RF: 0 polyethylene glycol 3350 [Miralax] 17 gram/dose Powder 17 g PO DAILY RF: 0 carvedilol 6.25 mg Tablet 6.25 mg PO BID RF: 0 atorvastatin 20 mg Tablet 20 mg PO BEDTIME RF: 0 lidocaine [Lidocaine Pain Relief] 4 % Adhesive Patch,Medicated 1 patch TOPICAL DAILY PRN (Reason: Pain) RF: 0 clopidogrel 75 mg Tablet 75 mg PO DAILY RF: 0 tamsulosin 0.4 mg Capsule 0.4 mg PO DAILY RF: 0 fluticasone propion-salmeterol [Advair Diskus] 500-50 mcg/dose Blister With Device 1 inh INHALATION BID RF: 0 losartan 25 mg Tablet 25 mg PO DAILY RF: 0 montelukast 10 mg Tablet 10 mg PO BEDTIME RF: 0 gabapentin 100 mg Capsule 200 mg PO TID RF: 0 ergocalciferol (vitamin D2) 1,250 mcg (50,000 unit) Capsule 1,250 mcg PO QWEEK RF: 0 fluticasone propionate [Flonase Allergy Relief] 50 mcg/actuation [place],Suspension 1 spray INTRANASAL DAILY RF: 0 oxycodone 5 mg Tablet 5 mg PO Q6H PRN (Reason: Pain (Scale Score 1-3)) RF: 0 clotrimazole 1 % Cream 1 applic TOPICAL TID RF: 0 Eucerin Cream 1 applic TOPICAL DAILY PRN (Reason: Dry Skin) RF: 0 oxycodone 5 mg tablet 5 mg PO Q6H PRN (Reason: pain) Qty: 20 RF: 0 furosemide 40 mg Tablet 80 mg PO DAILY Qty: 60 RF: 0 furosemide 40 mg Tablet 40 mg PO DAILY@1700 Qty: 30 RF: 0 Referrals: [facility] [Primary Care Provider] - 2 days Print Language: Ukrainian
--- NOTE | 2020-10-10 16:26 | CT_ITS ---
EXAMINATION: CT ANGIOGRAM CHEST WITH AND WITHOUT CONTRAST (CT PULMONARY ANGIOGRAM FOR PE) CLINICAL INFORMATION: Shortness of breath, chest pain. COMPARISON: Chest x-ray 10/09/2020. CT scan of the abdomen and pelvis 10/04/2020. CT angiograms chest August 2020. TECHNIQUE: Prior to contrast administration, noncontrast localization images were obtained. Subsequently, multidetector volumetric imaging was performed from the thoracic inlet to below the diaphragms following the administration of 65 mL Omnipaque 350 intravenous contrast. No contrast reaction reported. Sagittal, coronal, and MIP oblique sagittal reformatted images were obtained on the CT workstation, uploaded to PACS, and reviewed. This CT examination was performed using dose optimization techniques as appropriate, variously including the following: *Automated exposure control. *Adjustment of mA and/or kV according to patient size (this includes techniques or standardized protocols for targeted exams where dose is matched to indication/reason for exam; i.e. extremities or head). *Use of iterative reconstruction technique. Total exam dose-length product 222 mGy-cm. FINDINGS: QUALITY OF STUDY/CONTRAST BOLUS: Satisfactory. PULMONARY ARTERIES: No central or segmental pulmonary emboli. THORACIC AORTA: No aneurysm or dissection. LUNG: There is a pleural-based consolidation in the medial aspect of the right lower lobe measuring approximately 2 cm. There is linear opacification in the left lower lobe similar to prior compatible with atelectasis and/or scarring. The lungs are otherwise clear. PLEURA: No effusions. MEDIASTINUM: Cardiac silhouette remains enlarged but unchanged. No evidence of septal bowing or right heart strain. No pathologic lymphadenopathy. Thoracic inlet normal. Esophagus normal. CHEST WALL/AXILLA: No axillary or internal mammary lymphadenopathy. OSSEOUS STRUCTURES: There is slight widening of the xiphisternal joint, unchanged compared with the prior CT examinations dating back to 08/31/2020, but new compared to CT September 2019. This could reflect a fracture or infection given the widened appearance and the persistent surrounding soft tissue swelling with enlargement of the surrounding musculature. UPPER ABDOMEN: Stable tiny calcification in the left lobe of the liver compatible with a small granuloma, unchanged. No reflux of contrast into the hepatic veins to suggest elevated right heart pressures. CT/CT angio chest PE protocol IMPRESSION: 1. No evidence for pulmonary embolism. 2. Small focal pleural-based consolidation in the medial aspect of the right lower lobe, nonspecific. This could reflect rounded atelectasis. Cannot exclude early evolving infiltrate pneumonia. 3. Widening of the xiphisternal joint, unchanged, compared with the recent CT examinations dating back to August 2020, but new compared with CT in 2019. Given the concomitant enlargement of the surrounding musculature and stranding in the adjacent subcutaneous fat the possibility of fracture or joint sepsis is raised. This finding was reported on the recent CT scan of the abdomen and pelvis on September 2020. VTE: Negative.
[2020-10-10 17:03] LABS: Basophils Percent Auto 0.3 % (0-2); Eosinophils Absolute Auto 0.1 X10*3/uL (0.0-0.4); Eosinophils Percent Auto 0.8 % (0-4); Hematocrit 45.1 % (42-52); Imm Gran Abs Auto 0.04 X10*3/uL (0.00-0.03); Imm Gran Pct Auto 0.3 % (0.0-0.4); Lymphocytes Absolute Auto 1.3 X10*3/uL (1.2-4.9); Lymphocytes Percent Auto 10.3 % (20-40); MANUAL DIFF FLAG NO; Mean Corpuscular Hemoglobin 25.2 pg (27.0-33.0); Mean Corpuscular Volume 81.3 fL (80-98); Mean Platelet Volume 8.9 fL (9.4-12.4); Monocytes Absolute Auto 1.1 X10*3/uL (0.1-1.2); Monocytes Percent Auto 8.5 % (2-11); Neutrophils Absolute Auto 10.1 X10*3/uL (2.0-8.3); Neutrophils Percent Auto 79.8 % (45-73); Platelet Count 364 X10*3/uL (160-400); Red Blood Count 5.55 X10*6/uL (4.60-5.80); Red Cell Distribution Width 15.7 % (11.0-16.0); White Blood Count 12.6 X10*3/uL (4.8-10.8)
[2020-10-10 17:12] LABS: D Dimer 843 NG/ML
[2020-10-10 17:29] LABS: B Type Natriuretic Peptide 1100 pg/mL (<100); Troponin-I High Sensitivity 19.5 ng/L (<3.5-35.0)
[2020-10-10 17:38] LABS: Alanine Aminotransferase 11 U/L (0-40); Albumin Level 3.8 g/dL (3.5-5.0); Alkaline Phosphatase 135 U/L (39-117); Anion Gap 17 (12-20); Aspartate Amino Transferase 25 U/L (5-37); Bilirubin Direct 0.5 mg/dL (0.0-0.5); Blood Urea Nitrogen 27 mg/dL (9-16); Calcium 9.6 mg/dL (8.4-10.2); Carbon Dioxide 29 mmol/L (22-29); Chloride 90 mmol/L (96-108); Creatinine Clr Calc Pharmacy 73.5; Estimated Glomerular Filt Rate > 60; Glucose Random 133 mg/dL (60-115); Potassium 4.5 mmol/l (3.3-5.1); Sodium 131 mmol/L (135-145); Total Protein 9.5 g/dL (6.5-8.0)
[2020-10-10] MEDS: Albuterol/Iprat 2.5/0.5MG 3 ML AMPUL.NEB INHALE (18:22)
[2020-10-10 18:24] VITALS: PULSE 85; O2SAT 95
[2020-10-10] MEDS: iohexoL 350 MG/ML 100 ML INFUS..BTL IV (18:33)
[2020-10-10 20:00] VITALS: BP 105/64; PULSE 66; RESP 18; TEMP 36.4; O2SAT 98
[2020-10-10 20:18] LABS: Troponin-I High Sensitivity 15.5 ng/L (<3.5-35.0)
[2020-10-10] MEDS: Acetaminophen 325 MG TABLET 650 MG PO (21:12)
[2020-10-10 22:00] VITALS: BP 108/63; PULSE 62; RESP 18; TEMP 36.6; O2SAT 99
== END 2020-10-10 23:13 | disposition home or self-care (01) ==
PROVIDERS: Physician Assistant; Emergency Provider Emergency Medicine
DX: J18.9 Pneumonia, unspecified organism (principal); R07.89 Other chest pain; J44.9 Chronic obstructive pulmonary disease, unspecified; F12.90 Cannabis use, unspecified, uncomplicated; Z79.899 Other long term (current) drug therapy
CPT/HCPCS: 36415; 71275; 80048; 80076; 83880; 84484; 85025; 85379; 93005; 94640; 99284; Q9967

== ENCOUNTER 2020-11-24 00:05 | Inpatient (IN) | payer MEDICAID, SELFPAY ==
[2020-11-24] VITALS (7 sets, daily range): BP systolic 88–117; BP diastolic 51–70; PULSE 68–87; RESP 16–20; TEMP 36.9–37.1; O2SAT 98–99; BMI 21.7
--- NOTE | 2020-11-24 04:02 | XR_ITS ---
EXAMINATION: XR FOOT, LEFT CLINICAL INFORMATION: r/o osteomyelitis in L heel COMPARISON: Radiograph dated 11/23/2019 TECHNIQUE: AP, lateral, and oblique views of the left foot. FINDINGS: Again seen is a soft tissue defect at the posterior aspect of the calcaneal tuberosity with simultaneous gas. There is osseous remodeling at the Achilles tendon insertion on the calcaneus without definite areas of acute osteolysis to indicate acute osteomyelitis. Enthesopathic spurring is present at the Achilles tendon insertion and at the plantar fascial origin. Mild multifocal osteoarthritis is present at the forefoot and the MTP and interphalangeal joints. Joints otherwise appear relatively well-preserved. There is significant atherosclerotic calcifications at the ankle and foot. Soft tissues are swollen at the hindfoot and ankle. XR/XR foot LT min 3V IMPRESSION: Subcutaneous gas at the posterior aspect of the calcaneal tuberosity. No specific radiographic findings of osteomyelitis. Consider MRI of the foot with and without contrast for improved sensitivity and specificity.
--- NOTE | 2020-11-24 04:03 | ECG_ITS ---
Test Reason : CP Blood Pressure : / mmHG Vent. Rate : 075 BPM Atrial Rate : 075 BPM P-R Int : 156 ms QRS Dur : 106 ms QT Int : 402 ms P-R-T Axes : 030 -26 115 degrees QTc Int : 448 ms Normal sinus rhythm ST & T wave abnormality, consider lateral ischemia Abnormal ECG When compared with ECG of 09-OCT-2020 07:21, No significant change was found Referred By: Nikkie Mcmahan Electronically Signed By:ROHAN VEAG MD
--- NOTE | 2020-11-24 04:05 | ED_ITS ---
HPI - General Adult General Chief complaint: Extremity Injury, Lower Stated complaint: Lung Pain Time Seen by Provider: 11/24/20 03:57 Source: patient Mode of arrival: wheelchair Limitations: no limitations History of Present Illness HPI narrative: Patient comes emergency room complaining of left heel pain. Patient states it has been almost a week since his heel has been hurting. Patient has non stageable ulcer, states the pain is getting worse. Patient also complaining of chronic chest pain states nothing has changed. MD complaint: Left heel pain Related Data Home Medications Medication Instructions Recorded Confirmed FreeStyle Lite Strips 08/12/20 08/12/20 albuterol sulfate 2 puff INHALATION Q4H PRN 08/12/20 09/05/20 albuterol sulfate 2.5 mg INHALATION Q4H PRN 08/12/20 09/05/20 blood-glucose meter [FreeStyle 08/12/20 08/12/20 [place] Lite] cane 08/12/20 08/12/20 famotidine [Pepcid] 20 mg PO BID 08/12/20 09/05/20 lancets 08/12/20 08/12/20 magnesium oxide [MagOx] 400 mg PO DAILY 08/12/20 09/05/20 methadone 50 mg PO QAM 08/12/20 09/05/20 pen needle, diabetic 08/12/20 08/12/20 Eucerin 1 applic TOPICAL DAILY PRN 08/14/20 09/05/20 Lantus U-100 Insulin 12 unit SUBCUT QPM 08/14/20 09/05/20 aspirin 81 mg PO DAILY 08/14/20 09/05/20 atorvastatin 20 mg PO BEDTIME 08/14/20 09/05/20 carvedilol 6.25 mg PO BID 08/14/20 09/05/20 cetirizine 10 mg PO DAILY 08/14/20 09/05/20 clopidogrel 75 mg PO DAILY 08/14/20 09/05/20 clotrimazole 1 applic TOPICAL TID 08/14/20 09/05/20 ergocalciferol (vitamin D2) 1,250 mcg PO QWEEK 08/14/20 09/05/20 fluticasone propion-salmeterol 1 inh INHALATION BID 08/14/20 09/05/20 [Advair Diskus] fluticasone propionate [Flonase 1 spray INTRANASAL DAILY 08/14/20 09/05/20 Allergy Relief] gabapentin 200 mg PO TID 08/14/20 09/05/20 insulin lispro 5 unit SUBCUT TIDAC 08/14/20 09/05/20 lidocaine [Lidocaine Pain Relief] 1 patch TOPICAL DAILY PRN 08/14/20 09/05/20 losartan 25 mg PO DAILY 08/14/20 09/05/20 montelukast 10 mg PO BEDTIME 08/14/20 09/05/20 oxycodone 5 mg PO Q6H PRN 08/14/20 09/05/20 polyethylene glycol 3350 [Miralax] 17 g PO DAILY 08/14/20 09/05/20 sennosides [senna] 8.6 mg PO BEDTIME PRN 08/14/20 09/05/20 spironolactone 12.5 mg PO DAILY 08/14/20 09/05/20 tamsulosin 0.4 mg PO DAILY 08/14/20 09/05/20 zinc sulfate 220 mg PO DAILY 08/14/20 09/05/20 Previous Rx's Medication Instructions Recorded oxycodone 5 mg PO Q6H PRN #20 tab 08/24/20 furosemide 40 mg PO DAILY@1700 #30 tab 09/04/20 furosemide 80 mg PO DAILY #60 tab 09/04/20 doxycycline monohydrate 100 mg PO BID 7 Days #14 cap 10/10/20 Allergies Allergy/AdvReac Type Severity Reaction Status Date / Time vancomycin [VANCOMYCIN] Allergy Intermediate HIVES Verified 10/04/20 06:49 Chocolate Allergy Unknown Rash Verified 10/04/20 06:49 ciprofloxacin [From CIPRO] Allergy Unknown SWELLING Verified 10/04/20 06:49 ertapenem Allergy Unknown Hives Verified 10/04/20 06:49 hydrocortisone [Cipro HC] Allergy Unknown Unknown Verified 10/04/20 06:49 sulfamethoxazole Allergy Unknown rash Verified 10/04/20 06:49 [From BACTRIM] trimethoprim [From BACTRIM] Allergy Unknown rash Verified 10/04/20 06:49 turkey [TURKEY] Allergy Unknown RASH Verified 10/04/20 06:49 From INVANZ Allergy Intermediate HIVES Uncoded 10/04/20 06:49 choclate Allergy Unknown rash Uncoded 10/04/20 06:49 Review of Systems Review of Systems: Constitutional : No Weight loss, No Fever, No Chills, No Night Sweats, No Fatigue, No Malaise ENT/Mouth : No Hearing loss, No Ear Pain, No Nasal Congestion, No Sinus Pain, No Hoarseness, No sore throat, No Rhinorrhea, No Swallowing Difficulty Eyes: No Eye Pain, No Swelling, No Redness, No Foreign Body, No Discharge, No Vision Changes Cardiovascular : Complaining of chronic chest pain, No SOB, No Dyspnea on Exertion, No Orthopnea, No Edema, No Palpitations Respiratory : No Cough, No Sputum, No Wheezing, No Smoke Exposure, No Dyspnea Gastrointestinal : No Nausea, No Vomiting, No Diarrhea, No Constipation, No abdominal Pain, No Hematochezia, No Melena Genitourinary : no irregular bleeding, No Dysuria, No Urinary Frequency, No Hematuria, No Urinary Incontinence, No Urgency, No Flank Pain, No Urinary Flow Changes, No Hesitancy Musculoskeletal : Complaining of heel pain Skin : Complaining of an ulcer in his left heel Neuro : No Weakness, No Numbness, No Paresthesias, No Loss of Consciousness, No Dizziness, No Headache Psych : No Anxiety/Panic, No Depression, No SI/HI/AH/VH, No Social Issues, Heme/Lymph: No Bruising, No Bleeding,No Lymphadenopathy Endocrine : No Polyuria, No Polydipsia, No Temperature Intolerance [facility] Past Medical History Medical History Acute on chronic anemia Acute on chronic combined systolic and diastolic congestive heart failure Asthma Bipolar 1 disorder BPH (benign prostatic hyperplasia) Chest pain Cholelithiasis Congestive cardiac failure COPD (chronic obstructive pulmonary disease) Diabetes mellitus, type 2 GERD (gastroesophageal reflux disease) Hyperlipidemia Peripheral neuropathy Substance abuse Surgical History History of amputation History of laminectomy History of transurethral resection of prostate Hx of BKA Family History Family History Father Chronic mental illness Hypertension Asthma Stroke Mother Asthma Diabetes Coronary artery disease Social History Social History Alcohol intake: never Smoking Status: Never smoker Substance Use Type: Marijuana Advance Directives: No service: No Current occupational status: disabled Physical Exam Vital Signs: Vital Signs: Last Vital Signs Temp 98.7 F 11/24/20 04:08 Pulse 77 11/24/20 04:08 Resp 16 11/24/20 04:08 BP 117/70 11/24/20 04:08 Pulse Ox 98 11/24/20 04:08 Body Mass Index 21.7 Appearance: Alert. Oriented X3. No acute distress. Eyes: Pupils equal, round and reactive to light. ENT: Pharynx normal. Neck: Normal inspection. Neck supple. No lymph nodes noted. No crepitus CVS: Normal heart rate and rhythm. Pulses normal. Normal S1 and S2 Respiratory: No respiratory distress. Breath sounds normal. No Wheezing. No rales Abdomen: Soft and nontender. No rigidity. No distention. good BS x4 Skin: Unstageable ulcer in the left heel Extremities: No lower extremity edema. No lower extremity edema. No Lacerations. No Rash Neuro: Oriented X 3. No motor deficit. No sensory deficit. Moving all extermities. No slurred speech. Course Course Course Narrative: Patient has acute kidney injury, and an elevated white blood cell count. However at this time sepsis not suspected. Patient's left heel has an unstageable ulcer in the left heel, x-ray is not suspicious for osteomyelitis, MRI is needed. Patient has already a right-sided BKA. Patient is receiving IV vancomycin and Zosyn. Patient's troponin is 34.8, no EKG changes, patient has chronically elevated troponin. I discussed the patient with Dr. Jin, patient being admitted to rule out osteomyelitis. Medical Decision Making Lab Data Result diagrams: 11/24/20 04:50 11/24/20 04:50 Labs: Lab Results 11/24/20 11/24/20 11/24/20 Range/Units 04:50 04:50 04:50 WBC 14.7 H (4.8-10.8) X10*3/uL RBC 3.70 L D (4.60-5.80) X10*6/uL Hgb 9.5 L D (14.0-18.0) g/dl Hct 29.9 L D (42-52) % MCV 80.8 (80-98) fL MCH 25.7 L (27.0-33.0) pg MCHC 31.8 (31.0-36.0) g/dl RDW 17.2 H (11.0-16.0) % Plt Count 360 (160-400) X10*3/uL MPV 8.4 L (9.4-12.4) fL Immature Gran % (Auto) 0.6 H (0.0-0.4) % Neut % (Auto) 85.0 H (45-73) % Lymph % (Auto) 5.4 L (20-40) % [place] % (Auto) 7.9 (2-11) % Eos % (Auto) 0.9 (0-4) % Baso % (Auto) 0.2 (0-2) % Lymph # (Auto) 0.8 L (1.2-4.9) X10*3/uL [place] # (Auto) 1.2 (0.1-1.2) X10*3/uL Eos # (Auto) 0.1 (0.0-0.4) X10*3/uL Baso # (Auto) 0.0 (0.0-0.2) X10*3/uL Abs Immat Gran (auto) 0.09 H (0.00-0.03) X10*3/uL Absolute Neuts (auto) 12.5 H (2.0-8.3) X10*3/uL Absolute Nucleated RBC 0.000 (0.0-0.012) X10*3/uL Nucleated RBC % (auto) 0.0 (0.0-0.2) /100WBC Sodium 130 L (135-145) mmol/L Potassium 4.6 (3.3-5.1) mmol/l Chloride 89 L (96-108) mmol/L Carbon Dioxide 26 (22-29) mmol/L Anion Gap 20 (12-20) BUN 73 H D (9-16) mg/dL Creatinine 2.50 H (0.5-1.4) mg/dL Estim Creat Clear Calc 29.9 Estimated GFR 27 Random Glucose 80 D (60-115) mg/dL Lactic Acid 1.2 (0.5-2.0) mmol/L Calcium 9.5 (8.4-10.2) mg/dL Troponin I High Sens (<3.5-35.0) ng/L 01/12/21 Range/Units 04:50 WBC (4.8-10.8) X10*3/uL RBC (4.60-5.80) X10*6/uL Hgb (14.0-18.0) g/dl Hct (42-52) % MCV (80-98) fL MCH (27.0-33.0) pg MCHC (31.0-36.0) g/dl RDW (11.0-16.0) % Plt Count (160-400) X10*3/uL MPV (9.4-12.4) fL Immature Gran % (Auto) (0.0-0.4) % Neut % (Auto) (45-73) % Lymph % (Auto) (20-40) % [place] % (Auto) (2-11) % Eos % (Auto) (0-4) % Baso % (Auto) (0-2) % Lymph # (Auto) (1.2-4.9) X10*3/uL [place] # (Auto) (0.1-1.2) X10*3/uL Eos # (Auto) (0.0-0.4) X10*3/uL Baso # (Auto) (0.0-0.2) X10*3/uL Abs Immat Gran (auto) (0.00-0.03) X10*3/uL Absolute Neuts (auto) (2.0-8.3) X10*3/uL Absolute Nucleated RBC (0.0-0.012) X10*3/uL Nucleated RBC % (auto) (0.0-0.2) /100WBC Sodium (135-145) mmol/L Potassium (3.3-5.1) mmol/l Chloride (96-108) mmol/L Carbon Dioxide (22-29) mmol/L Anion Gap (12-20) BUN (9-16) mg/dL Creatinine (0.5-1.4) mg/dL Estim Creat Clear Calc Estimated GFR Random Glucose (60-115) mg/dL Lactic Acid (0.5-2.0) mmol/L Calcium (8.4-10.2) mg/dL Troponin I High Sens 34.8 D (<3.5-35.0) ng/L ECG Data Attestation: I personally reviewed and interpreted this ECG as follows: (Heart rate 75, sinus rhythm, nonspecific ST and T-wave abnormalities) Discharge Plan Discharge Clinical Impression: Elevated troponin, Acute kidney injury Unstageable pressure ulcer of heel Qualifiers: Laterality: left Qualified Code(s): L89.620 - Pressure ulcer of left heel, unstageable Patient Disposition: Admitted As Inpatient
[2020-11-24 04:56] LABS: MANUAL DIFF FLAG NO
[2020-11-24 04:58] LABS: Basophils Percent Auto 0.2 % (0-2); Eosinophils Absolute Auto 0.1 X10*3/uL (0.0-0.4); Eosinophils Percent Auto 0.9 % (0-4); Hematocrit 29.9 % (42-52); Hemoglobin 9.5 g/dl (14.0-18.0); Imm Gran Abs Auto 0.09 X10*3/uL (0.00-0.03); Imm Gran Pct Auto 0.6 % (0.0-0.4); Lymphocytes Absolute Auto 0.8 X10*3/uL (1.2-4.9); Lymphocytes Percent Auto 5.4 % (20-40); Mean Corpuscular HGB Conc 31.8 g/dl (31.0-36.0); Mean Corpuscular Hemoglobin 25.7 pg (27.0-33.0); Mean Corpuscular Volume 80.8 fL (80-98); Mean Platelet Volume 8.4 fL (9.4-12.4); Monocytes Absolute Auto 1.2 X10*3/uL (0.1-1.2); Monocytes Percent Auto 7.9 % (2-11); Neutrophils Absolute Auto 12.5 X10*3/uL (2.0-8.3); Platelet Count 360 X10*3/uL (160-400); Red Cell Distribution Width 17.2 % (11.0-16.0); White Blood Count 14.7 X10*3/uL (4.8-10.8)
[2020-11-24 05:15] LABS: Lactic Acid 1.2 mmol/L (0.5-2.0)
[2020-11-24 05:21] LABS: Anion Gap 20 (12-20); Blood Urea Nitrogen 73 mg/dL (9-16); Calcium 9.5 mg/dL (8.4-10.2); Carbon Dioxide 26 mmol/L (22-29); Chloride 89 mmol/L (96-108); Creatinine Clr Calc Pharmacy 29.9; Estimated Glomerular Filt Rate 27; Glucose Random 80 mg/dL (60-115); Potassium 4.6 mmol/l (3.3-5.1); Sodium 130 mmol/L (135-145)
[2020-11-24 05:27] LABS: Troponin-I High Sensitivity 34.8 ng/L (<3.5-35.0)
--- NOTE | 2020-11-24 05:31 | PC.NURSE ---
pt has healing wound on left heel, no drainage or bleeding.
[2020-11-24] MEDS: 0.9 % Sodium Chloride 1,000 ML 999 ML IVCONT (08:36)
[2020-11-24] MEDS: Piperacillin Sodium/Tazobactam 3.375 GM in 0.9 % Sodium Chloride 50 ML IV (08:37)
--- NOTE | 2020-11-24 08:41 | PC.NURSE ---
pt resting in the stretcher with eyes shut but easily arousable, skin approprtie for ethnicity, pt reports pain in the righ side/abd area, rib pain , left leg pain 09/22 at this time
[2020-11-24] MEDS: vancomycin HCL 1,000 MG in 0.9 % Sodium Chloride 250 ML 270 MG IV (09:34)
--- NOTE | 2020-11-24 09:40 | PC.NURSE ---
Per Dr Larson pt to be given Vanco now (not pre op as order states)
[2020-11-24 09:43] LABS: COVID-19 Test Negative (Negative); IDNOW Serial# 9DD0AD1C
--- NOTE | 2020-11-24 11:00 | P.HPHOSP_ITS ---
History of Present Illness Date of Service: 11/24/20 Chief Complaint: Epigastric pain, heel ulcer A 50 years old male with PMH of diabetes, CHF, asthma, history substance abuse who presents to the hospital complaining of epigastric pain for the last 3 days associated with left heel ulcers and pain. The patient reported his major concern was the epigastric pain as he was not able to eat much for the last 2 days with constant pain that get were sometimes. Denies any nausea, vomiting, change in bowel habit or dark stools. He is also complaining of left heel dry ulcer which he noted less than 1 week ago with main complain pain in the area. He noticed that it got worse over the last few days with no reported fever, chills or drainage from the area. In the emergency, an x-ray for the heel was concerning for infectious process. Will need further images to confirm osteomyelitis. Found to have acute kidney injury with creatinine increased to 2.5 with associated hyponatremia. Admitted for further evaluation and treatment. Review of Systems Review of Systems: No fever, chills or weakness No chest pain, palpitation No shortness of breath or coughing Epigastric pain, no nausea or vomiting, no black stool No urinary symptoms Left heel painful dry ulcer PMFSH Medical History Acute on chronic anemia Acute on chronic combined systolic and diastolic congestive heart failure Asthma Bipolar 1 disorder BPH (benign prostatic hyperplasia) Chest pain Cholelithiasis Congestive cardiac failure COPD (chronic obstructive pulmonary disease) Diabetes mellitus, type 2 GERD (gastroesophageal reflux disease) Hyperlipidemia Peripheral neuropathy Substance abuse Family History Father Chronic mental illness Hypertension Asthma Stroke Mother Asthma Diabetes Coronary artery disease Surgical History History of amputation History of laminectomy History of transurethral resection of prostate Hx of BKA Social History Alcohol intake: never Smoking Status: Never smoker Substance Use Type: Marijuana Advance Directives: No service: No Current occupational status: disabled Meds Allergies Allergy/AdvReac Type Severity Reaction Status Date / Time vancomycin [VANCOMYCIN] Allergy Intermediate HIVES Verified 10/04/20 06:49 Chocolate Allergy Unknown Rash Verified 10/04/20 06:49 ciprofloxacin [From CIPRO] Allergy Unknown SWELLING Verified 10/04/20 06:49 ertapenem Allergy Unknown Hives Verified 10/04/20 06:49 hydrocortisone [Cipro HC] Allergy Unknown Unknown Verified 10/04/20 06:49 sulfamethoxazole Allergy Unknown rash Verified 10/04/20 06:49 [From BACTRIM] trimethoprim [From BACTRIM] Allergy Unknown rash Verified 10/04/20 06:49 turkey [TURKEY] Allergy Unknown RASH Verified 10/04/20 06:49 From INVANZ Allergy Intermediate HIVES Uncoded 10/04/20 06:49 choclate Allergy Unknown rash Uncoded 10/04/20 06:49 Home Medications Medication Instructions Recorded Confirmed Type FreeStyle Lite Strips 08/12/20 08/12/20 History albuterol sulfate 2 puff INHALATION Q4H PRN 08/12/20 11/24/20 History albuterol sulfate 2.5 mg INHALATION Q4H PRN 08/12/20 11/24/20 History blood-glucose meter [FreeStyle 08/12/20 08/12/20 History [place] Lite] cane 08/12/20 08/12/20 History famotidine [Pepcid] 20 mg PO BID 08/12/20 11/24/20 History lancets 08/12/20 08/12/20 History magnesium oxide [MagOx] 400 mg PO DAILY 08/12/20 11/24/20 History methadone 50 mg PO QAM 08/12/20 09/05/20 History pen needle, diabetic 08/12/20 08/12/20 History Eucerin 1 applic TOPICAL DAILY PRN 08/14/20 11/24/20 History Lantus U-100 Insulin 12 unit SUBCUT QPM 08/14/20 11/24/20 History aspirin 81 mg PO DAILY 08/14/20 11/24/20 History atorvastatin 20 mg PO BEDTIME 08/14/20 11/24/20 History carvedilol 6.25 mg PO BID 08/14/20 11/24/20 History cetirizine 10 mg PO DAILY 08/14/20 11/24/20 History clopidogrel 75 mg PO DAILY 08/14/20 11/24/20 History clotrimazole 1 applic TOPICAL TID 08/14/20 11/24/20 History ergocalciferol (vitamin D2) 1,250 mcg PO QWEEK 08/14/20 11/24/20 History fluticasone propionate [Flonase 1 spray INTRANASAL DAILY 08/14/20 11/24/20 History Allergy Relief] gabapentin 200 mg PO TID 08/14/20 11/24/20 History insulin lispro 5 unit SUBCUT TIDAC 08/14/20 11/24/20 History losartan 25 mg PO DAILY 08/14/20 11/24/20 History montelukast 10 mg PO BEDTIME 08/14/20 11/24/20 History polyethylene glycol 3350 [Miralax] 17 g PO DAILY 08/14/20 11/24/20 History sennosides [senna] 8.6 mg PO BEDTIME PRN 08/14/20 11/24/20 History spironolactone 12.5 mg PO DAILY 08/14/20 11/24/20 History tamsulosin 0.4 mg PO DAILY 08/14/20 11/24/20 History zinc sulfate 220 mg PO DAILY 08/14/20 11/24/20 History fluticasone propionate [Flovent] 1 puff INHALATION BID 11/24/20 11/24/20 History naloxone [Narcan] 4 mg INTRANASAL Q3M PRN 11/24/20 11/24/20 History naproxen 500 mg PO BID PRN 11/24/20 11/24/20 History tramadol 50 mg PO BID PRN 11/24/20 11/24/20 History Physical Exam Vital Signs and Narrative: Vital Signs: Last Vital Signs Temp 98.7 F 11/24/20 04:08 Pulse 72 11/24/20 08:38 Resp 18 11/24/20 08:38 BP 100/52 L 11/24/20 08:38 Pulse Ox 98 11/24/20 08:38 Body Mass Index 21.7 Constitutional : Alert, oriented, not in distress Neck : Normal inspection, Supple Cardiovascular : RRR, S1 S2, no lower extremity edema Respiratory : Good bilateral air entry, no crackles, wheezes or rhonchi Gastrointestinal: soft, lax, epigastric tenderness, Non tender Musculoskeletal: Right below-knee amputation Skin : Warm/Dry, left heel dry unstageable ulcer with surrounding mild erythema and tenderness, no drainage noted. Neurological : Alert & oriented x3, No focal deficit Results Labs CBC and Chem 7: 11/24/20 04:50 11/24/20 04:50 Labs: Laboratory Results - last 24 hr 11/24/20 11/24/20 11/24/20 04:50 04:50 04:50 MCV 80.8 MCH 25.7 L MCHC 31.8 RDW 17.2 H Plt Count 360 MPV 8.4 L Immature Gran % (Auto) 0.6 H Neut % (Auto) 85.0 H Lymph % (Auto) 5.4 L [place] % (Auto) 7.9 Eos % (Auto) 0.9 Baso % (Auto) 0.2 Lymph # (Auto) 0.8 L [place] # (Auto) 1.2 Eos # (Auto) 0.1 Baso # (Auto) 0.0 Abs Immat Gran (auto) 0.09 H Absolute Neuts (auto) 12.5 H Absolute Nucleated RBC 0.000 Nucleated RBC % (auto) 0.0 Anion Gap 20 Estim Creat Clear Calc 29.9 Estimated GFR 27 Random Glucose 80 D Lactic Acid 1.2 Calcium 9.5 Troponin I High Sens COVID-19 ([facility]ILA) COVID-19 Clin Com 11/24/20 11/24/20 11/24/20 04:50 09:14 09:14 MCV MCH MCHC RDW Plt Count MPV Immature Gran % (Auto) Neut % (Auto) Lymph % (Auto) [place] % (Auto) Eos % (Auto) Baso % (Auto) Lymph # (Auto) [place] # (Auto) Eos # (Auto) Baso # (Auto) Abs Immat Gran (auto) Absolute Neuts (auto) Absolute Nucleated RBC Nucleated RBC % (auto) Anion Gap Estim Creat Clear Calc Estimated GFR Random Glucose Lactic Acid Calcium Troponin I High Sens 34.8 D 27.0 COVID-19 (JAMILA) Negative COVID-19 Clin Com See Note Imaging Radiologist's Impressions: Impressions Foot X-Ray 11/24/20 04:02 IMPRESSION: Subcutaneous gas at the posterior aspect of the calcaneal tuberosity. No specific radiographic findings of osteomyelitis. Consider MRI of the foot with and without contrast for improved sensitivity and specificity. Assessment and Plan (1) Acute kidney injury: Status: Acute (2) Unstageable pressure ulcer of heel: Qualifiers: Laterality: left Qualified Code(s): L89.620 - Pressure ulcer of left heel, unstageable Status: Acute (3) Acute on chronic anemia: Status: Inactive (4) Diabetes mellitus, type 2: Status: Inactive (5) Hypernatremia: Status: Acute A 50 years old male with PMH of diabetes, CHF, asthma, history substance abuse who presents to the hospital complaining of epigastric pain for the last 3 days associated with left heel ulcers and pain. Acute kidney injury Seems prerenal, possible ATN with usage of naproxen Creatinine from 1-2.5 Check urine studies Start gentle hydration Up with nephrotoxic medications Monitor intake and output Follow BMP Left heel ulcer Unstageable, XR showing has been needed To check MRI start antibiotic of Zosyn To get surgery evaluation Epigastric pain EKG not showing any new findings, no ACS Troponin trended negative Could be secondary to gastritis, gastric ulcer Start omeprazole Hold naproxen and NSAIDs Acute on chronic anemia Hemoglobin dropped to 9 from baseline of 12 with elevated RDW Check iron stores Check occult stool Monitor H&H Hyponatremia Secondary to Chaim decreased oral intake Continue to monitor after IV fluids Systolic CHF Hold Lasix a and losartan continue Aldacton, Coreg Hold aspirin Plavix Diabetes sliding scale ordered POC, diabetic diet Peripheral Neuropathy Gabapentin Ashtma stable. DVT PPx Hold Heparin SC
[2020-11-24 11:34] LABS: Iron 45 mcg/dL (45-160); Percent Iron Saturation 23 % (15-50); Total Iron Binding Capacity 197 mcg/dL (228-428); Unsaturated Iron Binding 152 ug/dL
[2020-11-24 11:46] LABS: Ferritin 827 ng/mL (20-250)
[2020-11-24] MEDS: Omeprazole 40 MG CAPSULE.DR PO ×2 (11:52→18:23)
[2020-11-24] MEDS: Heparin Sodium,Porcine 5,000 UNIT/ML VIAL 5000 UNIT SUBCUT (11:52)
[2020-11-24] MEDS: Clopidogrel Bisulfate 75 MG TABLET PO (11:52)
--- NOTE | 2020-11-24 11:56 | PC.NURSE ---
pt refusing the heparin injection
[2020-11-24 12:39] LABS: Glucose Urine UA NEG (NEG); Leukocyte Esterase Urine TRACE (NEG); Nitrite Urine NEG (NEG); Potassium Urine Random 26.2 mmol/l; Specific Gravity - Urine 1.015 (1.005-1.025); Urine Blood NEG (NEG); Urine Ketones NEG (NEG); Urine Protein TRACE MG/DL (NEG-TRACE)
[2020-11-24 12:41] LABS: Appearance Urine CLEAR; Color Urine YELLOW
[2020-11-24 13:12] LABS: Hyaline Casts Urine 0-2 /LPF; RBC Urine 0 /HPF (0); Squamous Epithelial Cell Urine TRACE /LPF
[2020-11-24] MEDS: carvediloL 6.25 MG TABLET PO (13:24)
[2020-11-24] MEDS: Fluticasone Propionate Nasal 16 GM SPRAY 1 SPRAY NOSTRIL-B (13:25)
--- NOTE | 2020-11-24 14:23 | P.CONGS_ITS ---
History of Present Illness Consult details Consult date: 11/24/20 Reason for consult: other (Left heel eschar) Requesting physician: Joesph Nath Narrative: This is a 50-year-old gentleman with an extensive past medical history including diabetes mellitus, peripheral vascular disease, CHF and substance abuse who presented to the emergency department today with complaints of epigastric pain and left heel pain. He has a history of an eschar of the left heel dating back at least 1 year. He underwent debridement of the eschar about a year ago by Dr. Vaughn. Noninvasive vascular studies done at that time documented an ankle brachial index on the left of 0.6. He subsequently required a right [id number] amputation, which he reports was performed in [place]. He reports that he was hospitalized for several months. He reports tenderness associated with his left heel ulcer. Duration of the ulceration is unclear, but review of the record here indicates that it has been present since at least October of 2019. X-ray of the left foot done in the ED today did not reveal evidence of osteomyelitis. The presence of gas in the soft tissues adjacent to the calcaneus was noted. Acute kidney injury present - creatinine 2.5. Review of Systems Cardiovascular: Cardiovascular: Reports chest pain (Substernal apparently related to his epigastric pain) and Denies dyspnea Respiratory: Respiratory: Denies dyspnea PMFSH Past Medical History Medical History (Updated 11/25/20 @ 13:32 by Cami Purvis MD) Acute on chronic anemia Acute on chronic combined systolic and diastolic congestive heart failure Asthma Bipolar 1 disorder BPH (benign prostatic hyperplasia) Chest pain Cholelithiasis Congestive cardiac failure COPD (chronic obstructive pulmonary disease) Diabetes mellitus, type 2 GERD (gastroesophageal reflux disease) Hyperlipidemia Peripheral arterial disease Peripheral neuropathy Substance abuse Family History Family History Father Chronic mental illness Hypertension Asthma Stroke Mother Asthma Diabetes Coronary artery disease Surgical History Surgical History History of amputation History of laminectomy History of transurethral resection of prostate Hx of BKA Social History Social History Household Members: None Housing Other:: rents a room Do you presently have visiting nurse or other home services: No Alcohol intake: never Smoking Status: Never smoker Second Hand Smoke Exposure: No Use of substances other than those prescribed or required for medical reasons: Yes Substance Use Type: Marijuana Substance Use Frequency: Occasionally Currently Displaying Signs/Symptoms of Drug Intoxication Withdrawal: No Any prior treatment program specific to substance use: Yes Have you been hit, kicked, punched, or otherwise hurt by someone within the past year? If so, by whom?: No Do you feel safe in your current relationship?: No Current Relationship Is there a partner from a previous relationship who is making you feel unsafe now?: No Are you made to feel afraid or neglected: No Advance Directives: No Do you have thoughts of harming others: None Recently lost weight without trying: No service: No Current occupational status: disabled Meds Allergies Allergy/AdvReac Type Severity Reaction Status Date / Time vancomycin [VANCOMYCIN] Allergy Intermediate HIVES Verified 10/04/20 06:49 Chocolate Allergy Unknown Rash Verified 10/04/20 06:49 ciprofloxacin [From CIPRO] Allergy Unknown SWELLING Verified 10/04/20 06:49 ertapenem Allergy Unknown Hives Verified 10/04/20 06:49 hydrocortisone [Cipro HC] Allergy Unknown Unknown Verified 10/04/20 06:49 sulfamethoxazole Allergy Unknown rash Verified 10/04/20 06:49 [From BACTRIM] trimethoprim [From BACTRIM] Allergy Unknown rash Verified 10/04/20 06:49 turkey [TURKEY] Allergy Unknown RASH Verified 10/04/20 06:49 From INVANZ Allergy Intermediate HIVES Uncoded 10/04/20 06:49 choclate Allergy Unknown rash Uncoded 10/04/20 06:49 Home Medications Medication Instructions Recorded Confirmed Type FreeStyle Lite Strips 08/12/20 08/12/20 History albuterol sulfate 2 puff INHALATION Q4H PRN 08/12/20 11/24/20 History albuterol sulfate 2.5 mg INHALATION Q4H PRN 08/12/20 11/24/20 History blood-glucose meter [FreeStyle 08/12/20 08/12/20 History [place] Lite] cane 08/12/20 08/12/20 History famotidine [Pepcid] 20 mg PO BID 08/12/20 11/24/20 History lancets 08/12/20 08/12/20 History magnesium oxide [MagOx] 400 mg PO DAILY 08/12/20 11/24/20 History methadone 50 mg PO QAM 08/12/20 09/05/20 History pen needle, diabetic 08/12/20 08/12/20 History Eucerin 1 applic TOPICAL DAILY PRN 08/14/20 11/24/20 History Lantus U-100 Insulin 12 unit SUBCUT QPM 08/14/20 11/24/20 History aspirin 81 mg PO DAILY 08/14/20 11/24/20 History atorvastatin 20 mg PO BEDTIME 08/14/20 11/24/20 History carvedilol 6.25 mg PO BID 08/14/20 11/24/20 History cetirizine 10 mg PO DAILY 08/14/20 11/24/20 History clopidogrel 75 mg PO DAILY 08/14/20 11/24/20 History clotrimazole 1 applic TOPICAL TID 08/14/20 11/24/20 History ergocalciferol (vitamin D2) 1,250 mcg PO QWEEK 08/14/20 11/24/20 History fluticasone propionate [Flonase 1 spray INTRANASAL DAILY 08/14/20 11/24/20 History Allergy Relief] gabapentin 200 mg PO TID 08/14/20 11/24/20 History insulin lispro 5 unit SUBCUT TIDAC 08/14/20 11/24/20 History losartan 25 mg PO DAILY 08/14/20 11/24/20 History montelukast 10 mg PO BEDTIME 08/14/20 11/24/20 History polyethylene glycol 3350 [Miralax] 17 g PO DAILY 08/14/20 11/24/20 History sennosides [senna] 8.6 mg PO BEDTIME PRN 08/14/20 11/24/20 History spironolactone 12.5 mg PO DAILY 08/14/20 11/24/20 History tamsulosin 0.4 mg PO DAILY 08/14/20 11/24/20 History zinc sulfate 220 mg PO DAILY 08/14/20 11/24/20 History fluticasone propionate [Flovent] 1 puff INHALATION BID 11/24/20 11/24/20 History methadone [Methadone Intensol] 50 mg PO DAILY 11/24/20 11/24/20 History naloxone [Narcan] 4 mg INTRANASAL Q3M PRN 11/24/20 11/24/20 History naproxen 500 mg PO BID PRN 11/24/20 11/24/20 History tramadol 50 mg PO BID PRN 11/24/20 11/24/20 History Physical Exam Vital Signs: Vital Signs: Last Vital Signs Temp 98.6 F 11/24/20 11:02 Pulse 80 11/24/20 13:27 Resp 20 11/24/20 13:27 BP 117/68 11/24/20 13:27 Pulse Ox 99 11/24/20 13:27 Body Mass Index 21.7 Const: General: cooperative and alert Nutritional Appearance: thin Resp: Auscultation: clear to auscultation bilaterally Cardio: Rate: regular rate Rhythm: regular rhythm Peripheral pulses: femoral pulses present on the left 1+ Extrem: Other: Approximately 2.5 x 3 cm eschar posteromedial aspect left heel with moderate associated tenderness, dorsalis pedis and posterior tibial pulse not palpable. Results Labs Result diagrams: 11/25/20 06:11 11/25/20 06:11 Labs: Abnormal lab results 11/24/20 11/24/20 11/24/20 Range/Units 04:50 04:50 11:51 WBC 14.7 H (4.8-10.8) X10*3/uL RBC 3.70 L D (4.60-5.80) X10*6/uL Hgb 9.5 L D (14.0-18.0) g/dl Hct 29.9 L D (42-52) % MCH 25.7 L (27.0-33.0) pg RDW 17.2 H (11.0-16.0) % MPV 8.4 L (9.4-12.4) fL Immature Gran % (Auto) 0.6 H (0.0-0.4) % Neut % (Auto) 85.0 H (45-73) % Lymph % (Auto) 5.4 L (20-40) % Lymph # (Auto) 0.8 L (1.2-4.9) X10*3/uL Abs Immat Gran (auto) 0.09 H (0.00-0.03) X10*3/uL Absolute Neuts (auto) 12.5 H (2.0-8.3) X10*3/uL Sodium 130 L (135-145) mmol/L Chloride 89 L (96-108) mmol/L BUN 73 H D (9-16) mg/dL Creatinine 2.50 H (0.5-1.4) mg/dL TIBC 197 L (228-428) mcg/dL Ferritin 827 H (20-250) ng/mL Ur Leukocyte Esterase TRACE H (NEG) Short CBC 11/24/20 Range/Units 04:50 WBC 14.7 H (4.8-10.8) X10*3/uL Hgb 9.5 L D (14.0-18.0) g/dl Hct 29.9 L D (42-52) % Plt Count 360 (160-400) X10*3/uL BMP 11/24/20 04:50 Sodium 130 L Potassium 4.6 Chloride 89 L Carbon Dioxide 26 BUN 73 H D Creatinine 2.50 H Calcium 9.5 Urine 11/24/20 Range/Units 11:51 Urine Color YELLOW Urine Appearance CLEAR Urine pH 6.0 (5.0-8.0) Ur Specific [place] 1.015 (1.005-1.025) Urine Protein TRACE (NEG-TRACE) MG/DL Urine Glucose (UA) NEG (NEG) MG/DL All other labs normal. Assessment and Plan (1) Unstageable pressure ulcer of heel: Qualifiers: Laterality: left Qualified Code(s): L89.620 - Pressure ulcer of left heel, unstageable Status: Acute 50-year-old male with complicated past medical history including diabetes mellitus, CHF, peripheral vascular disease and left heel ulcer. There is no active drainage or surrounding erythema to suggest that acute debridement is required. Pedal pulses are not palpable and he has been evaluated and treated by Dr. Vaughn in the past. Recommend vascular evaluation, pressure relief, local care (ordered). On zosyn. Received one dose of vancomycin in ED.
[2020-11-24] MEDS: Piperacillin Sodium/Tazobactam 2.25 GM in 0.9 % Sodium Chloride 50 ML IV (15:59)
[2020-11-24] MEDS: Gabapentin 100 MG CAPSULE 200 MG PO (16:00)
[2020-11-24] MEDS: Furosemide 40 MG TABLET PO (18:23)
--- NOTE | 2020-11-24 19:20 | PC.NURSE ---
pt resting in stretcher and moved to recliner chair w/o difficulty. pt denies any complaints.
--- NOTE | 2020-11-24 19:30 | PC.NURSE ---
assumed care of pt. pt requesting to get OOB. Recliner chair in room for pt. Pt denies any complaints and requesting Methadone. Pt denies any other complaints. will continue to monitor pt.
--- NOTE | 2020-11-24 23:03 | PC.NURSE ---
pt sitting in recliner chair w/o complaints. will continue to monitor pt.
--- NOTE | 2020-11-25 | CT_ITS ---
EXAMINATION: CT CHEST WITHOUT CONTRAST CLINICAL INFORMATION: Chest and epigastric pain. Reported soft tissue mass COMPARISON: 10/10/2020 TECHNIQUE: Multidetector volumetric CT imaging of the chest was done. Axial MIP volume rendering provided. Sagittal and coronal reformatted images were obtained. This CT examination was performed using dose optimization techniques as appropriate, variously including the following: *Automated exposure control *Adjustment of mA and/or kV according to patient size (this includes techniques or standardized protocols for targeted exams where dose is matched to indication/reason for exam; i.e. extremities or head) *Use of iterative reconstruction technique DLP: 217 mGy-cm FINDINGS: TV PRODUCTION ASSISTANT: Lungs are symmetrically expanded. LUNGS: There is bibasilar atelectasis. There are scattered tiny punctate calcified granulomata. MEDIASTINUM: Normal heart size. Dense three-vessel coronary artery calcification. No pericardial effusion. There are prominent but not pathologically enlarged lymph nodes. Subcentimeter prevascular lymph nodes are again seen. There is a 1.4 x 1.0 cm right paratracheal lymph node. There is a calcified subcarinal lymph node. Normal caliber ascending thoracic aorta. PLEURA: There is no pleural effusion. No pleural mass or thickening. AXILLA: No axillary lymphadenopathy. Again seen is abnormal soft tissue between the interspaces of the right third toe sixth ribs anteriorly to the right of midline. The soft tissue is centered in the intercostal chest wall with abnormal soft tissue prominence both anterior and posterior to the ribs. There is effacement of the normal intercostal fat. There is loss of the fat plane surrounding the right internal mammary artery. The margins of the soft tissue abnormality are difficult to define but they measure 6.2 x 2.7 cm transaxial by approximately 8 cm craniocaudal. The craniocaudal extent appears slightly worsened from the prior study 10/10/2020. No definitive osseous destruction to confirm osteomyelitis although the ribs and costosternal cartilage are surrounded by soft tissue abnormality. UPPER ABDOMEN: No adrenal mass. Spleen upper limits of normal in size. OSSEOUS STRUCTURES: Again seen is widening of the xiphisternal joint, similar to prior study. There is marked degenerative arthrosis of the sternomanubrial joint is well, present previously. There is asymmetric sclerosis of the right anterior fourth rib, for example image 248/483. This was present previously. CT/CT chest wo con IMPRESSION: There is worsening abnormal soft tissue involving the right anterior intercostal spaces between the third and sixth ribs. Differential considerations would include an infectious or inflammatory process, perhaps related to septic arthritis of the xiphisternal joint. Malignancy is a consideration as well. Recommend correlation with tissue sampling.
--- NOTE | 2020-11-25 02:30 | PC.NURSE ---
PT DENIES ANY COMPLAINTS AT THIS TIME. WILL CONTINUE TO MONITOR PT.
[2020-11-25] MEDS: traMADoL HCL 50 MG TABLET PO ×2 (02:47→15:40)
--- NOTE | 2020-11-25 05:55 | PC.NURSE ---
PT MOVED TO ROOM #15 IN A RECLINER CHAIR. PT DENIES ANY COMPLAINTS. PT GIVEN WATER TO DRINK. WILL CONTINUE TO MONITOR PT.
[2020-11-25 06:37] LABS: Hematocrit 30.3 % (42-52); Hemoglobin 9.6 g/dl (14.0-18.0); Mean Corpuscular HGB Conc 31.7 g/dl (31.0-36.0); Mean Corpuscular Hemoglobin 25.4 pg (27.0-33.0); Mean Corpuscular Volume 80.2 fL (80-98); Mean Platelet Volume 8.7 fL (9.4-12.4); Platelet Count 331 X10*3/uL (160-400); Red Blood Count 3.78 X10*6/uL (4.60-5.80); Red Cell Distribution Width 17.1 % (11.0-16.0); White Blood Count 11.9 X10*3/uL (4.8-10.8)
[2020-11-25 07:05] LABS: Anion Gap 17 (12-20); Blood Urea Nitrogen 49 mg/dL (9-16); Carbon Dioxide 26 mmol/L (22-29); Chloride 93 mmol/L (96-108); Creatinine Clr Calc Pharmacy 41.5; Estimated Glomerular Filt Rate 40; Glucose Random 100 mg/dL (60-115); Potassium 4.2 mmol/l (3.3-5.1); Sodium 132 mmol/L (135-145)
[2020-11-25 07:49] VITALS: BP 126/63; PULSE 71; RESP 18; TEMP 36.9; O2SAT 98
[2020-11-25 08:01] LABS: Glucose, Whole Blood 92 mg/dL (60-115)
[2020-11-25] MEDS: 0.9 % Sodium Chloride Flush 3 ML SYRINGE IVFLUSH ×2 (09:09→21:23)
[2020-11-25] MEDS: Piperacillin Sodium/Tazobactam 2.25 GM in 0.9 % Sodium Chloride 50 ML IV ×3 (09:32→23:43)
[2020-11-25] MEDS: 0.9 % Sodium Chloride 1,000 ML 75 ML IVCONT ×2 (09:32→23:44)
[2020-11-25] MEDS: Heparin Sodium,Porcine 5,000 UNIT/ML VIAL 5000 UNIT SUBCUT (09:34)
[2020-11-25] MEDS: Tamsulosin HCL 0.4 MG CAPSULE PO (09:34)
[2020-11-25] MEDS: Famotidine 20 MG TABLET PO ×2 (09:35→20:31)
[2020-11-25] MEDS: Clopidogrel Bisulfate 75 MG TABLET PO (09:35)
[2020-11-25] MEDS: Magnesium Oxide 400 MG TABLET PO (09:35)
[2020-11-25] MEDS: Gabapentin 100 MG CAPSULE 200 MG PO ×3 (09:35→20:31)
[2020-11-25] MEDS: Loratadine 10 MG TABLET PO (09:35)
[2020-11-25] MEDS: Aspirin Enteric Coated 81 MG TABLET.DR PO (09:35)
[2020-11-25] MEDS: carvediloL 6.25 MG TABLET PO ×2 (09:35→20:30)
[2020-11-25] MEDS: Spironolactone 25 MG TABLET 12.5 MG PO (09:35)
--- NOTE | 2020-11-25 11:26 | MHC.CM.NN ---
pt lives alone in apt building. he uses a wc and a walker for trnfrs. pt lives on the 1st floor and has a freind that lives in his apt building. 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 pt will likely need help c transportation at dc he reports. dc plan is to return home c aforementioned svcs - already active. cm to cont. to follow.
[2020-11-25 11:40] VITALS: BP 107/55; PULSE 110; RESP 18; TEMP 36.7; O2SAT 91
--- NOTE | 2020-11-25 12:15 | P.PNIM_ITS ---
Subjective Subjective Date of Service: 11/25/20 Interval History: the patient was seen and evaluated this morning Laying in bed, feels comfortable, still complaining of left ankle pain Reported epigastric pain Denies any fever, chills or shortness of breath No reported other overnight events. Systemic review: No fever, chills or weakness No chest pain, palpitation No shortness of breath or coughing Epigastric pain with no, nausea or vomiting No urinary symptoms No any rash or wounds Physical Exam Vital Signs: Vital Signs: Last Vital Signs Temp 98.0 F 11/25/20 11:40 Pulse 110 H 11/25/20 11:40 Resp 18 11/25/20 11:40 BP 107/55 L 11/25/20 11:40 Pulse Ox 91 L 11/25/20 11:40 Body Mass Index 21.7 Constitutional : Alert, oriented, not in distress Neck : Normal inspection, Supple Cardiovascular : RRR, S1 S2, no lower extremity edema Respiratory : Good bilateral air entry, no crackles, wheezes or rhonchi Gastrointestinal: soft, lax, epigastric tenderness, Non tender Musculoskeletal: Right below-knee amputation Skin : Warm/Dry, left heel dry unstageable ulcer with surrounding mild erythema and tenderness, no drainage noted. Neurological : Alert & oriented x3, No focal deficit Objective Data Current Medications Generic Name Dose Route Start Last Admin Trade Name Joshq PRN Reason Stop Dose Admin Acetaminophen 650 mg 11/24/20 10:58 Acetaminophen 325 Mg Tablet PO Q6H PRN Pain, Mild (Pain Scale 1-3) Albuterol Sulfate 2.5 mg 11/24/20 10:58 Albuterol Sulfate (0.083%) 2.5 Mg/3 Ml Vial.Neb INHALE Q4H PRN Shortness Of Breath Or Wheezing Albuterol Sulfate 2 puff 11/24/20 10:58 Albuterol Sulfate 90 Mcg 8 Gm Inhaler INHALE Q4H PRN Shortness Of Breath Aspirin 81 mg 11/25/20 09:00 11/25/20 09:35 Aspirin Enteric Coated 81 Mg Tablet. PO 81 mg DAILY [facility] Administration Atorvastatin Calcium 20 mg 11/24/20 21:00 11/25/20 09:10 Atorvastatin Calcium 20 Mg Tablet PO Not Given BEDTIME [facility] Carvedilol 6.25 mg 11/24/20 11:00 11/25/20 09:35 Carvedilol 6.25 Mg Tablet PO 6.25 mg BID [facility] Administration Protocol Clopidogrel Bisulfate 75 mg 11/24/20 11:00 11/25/20 09:35 Clopidogrel Bisulfate 75 Mg Tablet PO 75 mg DAILY [facility] Administration Clotrimazole 1 appl 11/24/20 15:00 11/25/20 09:38 Clotrimazole 1 % Cream 15 Gm Tube TOPICAL Not Given TID [facility] Ergocalciferol 1,250 mcg 11/29/20 10:00 Ergocalciferol (Vitamin D2) 1,250 Mcg Capsule PO Call@1000 [facility] Famotidine 20 mg 11/24/20 21:00 11/25/20 09:35 Famotidine 20 Mg Tablet PO 20 mg BID [facility] Administration Fluticasone Propionate 1 spray 11/24/20 11:00 11/25/20 09:38 Fluticasone Propionate Nasal 16 Gm [place] NOSTRIL-B Not Given DAILY [facility] Fluticasone Propionate 1 puff 11/24/20 20:00 11/25/20 08:06 Fluticasone Propionate 100 Mcg Blst.W.Dev INHALE Not Given RBID [facility] Furosemide 40 mg 11/24/20 17:00 11/24/20 18:23 Furosemide 40 Mg Tablet PO 40 mg DAILY@1700 [facility] Administration Protocol Gabapentin 200 mg 11/24/20 15:00 11/25/20 09:35 Gabapentin 100 Mg Capsule PO 200 mg TID [facility] Administration Heparin Sodium (Porcine) 5,000 unit 11/24/20 11:00 11/25/20 09:34 Heparin Sodium,Porcine 5,000 Unit/Ml Vial SUBCUT 5,000 unit Q8H [facility] Administration Piperacillin Sod/Tazobactam 50 mls @ 100 mls/hr 11/24/20 16:00 11/25/20 10:06 Sod 2.25 gm/ Sodium Chloride IV Infused Q8H [facility] Infusion Sodium Chloride 1,000 mls @ 75 mls/hr 11/24/20 11:00 11/25/20 09:32 Ns IVCONT 75 mls/hr .[id number] [facility] Administration Insulin Glargine 12 unit 11/24/20 21:00 11/25/20 09:11 Insulin Glargine,Hum.Rec.Anlog 100 Unit/Ml 10 Ml Vial SUBCUT Not Given BEDTIME [facility] Loratadine 10 mg 11/25/20 09:00 11/25/20 09:35 Loratadine 10 Mg Tablet PO 10 mg DAILY [facility] Administration Magnesium Hydroxide 30 ml 11/24/20 10:58 Milk Of Magnesia 30 Ml Oral.Susp PO DAILY PRN Constipation Magnesium Oxide 400 mg 11/25/20 09:00 11/25/20 09:35 Magnesium Oxide 400 Mg Tablet PO 400 mg DAILY [facility] Administration Methadone HCl 50 mg 11/25/20 09:00 11/25/20 09:59 Methadone Hcl 1 Mg/0.1 Ml Oral.Conc PO 50 mg DAILY [facility] Administration Montelukast Sodium 10 mg 11/24/20 21:00 11/25/20 09:11 Montelukast Sodium 10 Mg Tablet PO Not Given BEDTIME [facility] Omeprazole 40 mg 11/24/20 11:00 11/25/20 09:12 Omeprazole 40 Mg Capsule.Dr PO Not Given BID@[phone] [facility] Pharmacy Consult 1 each 11/24/20 07:11 Consult Rx Vancomycin Dosing MISCELLANE DAILY PRN Consult order Pharmacy Consult 1 each 11/24/20 07:53 Consult Rx Perform Med Rec MISCELLANE ONCE PRN Consult order Polyethylene Glycol 17 gm 11/25/20 09:00 11/25/20 09:36 Polyethylene Glycol 3350 17 Gm Powd.Pack PO Not Given DAILY [facility] Senna 8.6 mg 11/24/20 10:58 Sennosides 8.6 Mg Tablet PO BEDTIME PRN Constipation Sodium Chloride 3 ml 11/24/20 16:00 11/25/20 09:09 0.9 % Sodium Chloride Flush 3 Ml Syringe IVFLUSH 3 ml QSHIFT [facility] Administration Spironolactone 12.5 mg 11/25/20 09:00 11/25/20 09:35 Spironolactone 25 Mg Tablet PO 12.5 mg DAILY [facility] Administration Protocol Tamsulosin HCl 0.4 mg 11/25/20 09:00 11/25/20 09:34 Tamsulosin Hcl 0.4 Mg Capsule PO 0.4 mg DAILY [facility] Administration Tramadol HCl 50 mg 11/24/20 10:58 11/25/20 02:47 Tramadol Hcl 50 Mg Tablet PO 50 mg BID PRN Administration Pain Labs CBC & Chem 7: 11/25/20 06:11 11/25/20 06:11 Microbiology Microbiology Results: Microbiology 11/24/20 Unknown Urine clean catch - Clean Catch Midstream Urine Culture - Final No growth. 11/24/20 04:50 Blood - Venous Blood Culture - Preliminary No growth after 24 hours. 11/24/20 04:50 Blood - Venous Blood Culture - Preliminary No growth after 24 hours. Assessment and Plan (1) Acute kidney injury: Status: Acute (2) Unstageable pressure ulcer of heel: Status: Acute (3) Acute on chronic anemia: Status: Inactive (4) Diabetes mellitus, type 2: Status: Inactive (5) Hypernatremia: Status: Acute Assessment and Plan: A 50 years old male with PMH of diabetes, CHF, asthma, history substance abuse who presents to the hospital complaining of epigastric pain for the last 3 days associated with left heel ulcers and pain. Acute kidney injury Seems prerenal Creatinine improved to 1.8 today with elevated BUN Evaluated urine studies Continue gentle hydration Hold nephrotoxic medications Monitor intake and output Follow BMP Left heel ulcer Unstageable, XR showing has been needed To check MRI when kidney function improves Continue antibiotic of Zosyn Pending surgery evaluation Epigastric pain EKG not showing any new findings, no ACS Troponin trended negative Could be secondary to gastritis, gastric ulcer Start omeprazole Hold naproxen and NSAIDs Acute on chronic anemia Hemoglobin dropped to 9 from baseline of 12 with elevated RDW Stable hemoglobin acceptable iron stores Check occult stool Start omeprazole Monitor H&H Hyponatremia Secondary to Chaim decreased oral intake Improving, 132 Continue to monitor after IV fluids Systolic CHF Restart Lasix Continue to hold losartan continue Aldacton, Coreg Start aspirin Plavix Diabetes sliding scale ordered POC, diabetic diet Peripheral Neuropathy Gabapentin Ashtma stable. DVT PPx Hold Heparin SC
--- NOTE | 2020-11-25 13:43 | PM.PNGS ---
Subjective Subjective Date of Service: 11/25/20 Interval history: Feels a little better. Reports that left heel pain is about the same. Physical Exam Vital Signs: Vital Signs: Last Vital Signs Temp 98.0 F 11/25/20 11:40 Pulse 110 H 11/25/20 11:40 Resp 18 11/25/20 11:40 BP 107/55 L 11/25/20 11:40 Pulse Ox 91 L 11/25/20 11:40 Body Mass Index 21.7 Const: Other: Alert, in no apparent distress Extrem: Other: Left foot is warm. Eschar left posterior heel is intact. Moderate associated tenderness. No drainage. Pedal pulses are not palpable. Capillary refill appears normal. Progress Note: A&P Assessment and plan (1) Unstageable pressure ulcer of heel: Status: Acute Assessment and Plan: Left heel eschar, peripheral vascular disease. Continue local care. Decision regarding debridement is difficult as there is minimal soft tissue in this location and the likelihood that the bone will be exposed following debridement is high. There is significant risk of failure to heal. Consider vascular consultation. Fall Risk Details Current Medications: Current Medications Generic Name Dose Route Start Last Admin Trade Name Freq PRN Reason Stop Dose Admin Acetaminophen 650 mg 11/24/20 10:58 Acetaminophen 325 Mg Tablet PO Q6H PRN Pain, Mild (Pain Scale 1-3) Albuterol Sulfate 2.5 mg 11/24/20 10:58 Albuterol Sulfate (0.083%) 2.5 Mg/3 Ml Vial.Neb INHALE Q4H PRN Shortness Of Breath Or Wheezing Albuterol Sulfate 2 puff 11/24/20 10:58 Albuterol Sulfate 90 Mcg 8 Gm Inhaler INHALE Q4H PRN Shortness Of Breath Aspirin 81 mg 11/25/20 09:00 11/25/20 09:35 Aspirin Enteric Coated 81 Mg Tablet. PO 81 mg DAILY [facility] Administration Atorvastatin Calcium 20 mg 11/24/20 21:00 11/25/20 09:10 Atorvastatin Calcium 20 Mg Tablet PO Not Given BEDTIME [facility] Carvedilol 6.25 mg 11/24/20 11:00 11/25/20 09:35 Carvedilol 6.25 Mg Tablet PO 6.25 mg BID [facility] Administration Protocol Clopidogrel Bisulfate 75 mg 11/24/20 11:00 11/25/20 09:35 Clopidogrel Bisulfate 75 Mg Tablet PO 75 mg DAILY [facility] Administration Clotrimazole 1 appl 11/24/20 15:00 11/25/20 09:38 Clotrimazole 1 % Cream 15 Gm Tube TOPICAL Not Given TID [facility] Ergocalciferol 1,250 mcg 11/29/20 10:00 Ergocalciferol (Vitamin D2) 1,250 Mcg Capsule PO Call@1000 [facility] Famotidine 20 mg 11/24/20 21:00 11/25/20 09:35 Famotidine 20 Mg Tablet PO 20 mg BID [facility] Administration Fluticasone Propionate 1 spray 11/24/20 11:00 11/25/20 09:38 Fluticasone Propionate Nasal 16 Gm [place] NOSTRIL-B Not Given DAILY [facility] Fluticasone Propionate 1 puff 11/24/20 20:00 11/25/20 08:06 Fluticasone Propionate 100 Mcg Blst.W.Dev INHALE Not Given RBID [facility] Furosemide 40 mg 11/24/20 17:00 11/24/20 18:23 Furosemide 40 Mg Tablet PO 40 mg DAILY@1700 [facility] Administration Protocol Furosemide 80 mg 11/26/20 09:00 Furosemide 40 Mg Tablet PO DAILY [facility] Protocol Gabapentin 200 mg 11/24/20 15:00 11/25/20 09:35 Gabapentin 100 Mg Capsule PO 200 mg TID [facility] Administration Heparin Sodium (Porcine) 5,000 unit 11/24/20 11:00 11/25/20 09:34 Heparin Sodium,Porcine 5,000 Unit/Ml Vial SUBCUT 5,000 unit Q8H [facility] Administration Piperacillin Sod/Tazobactam 50 mls @ 100 mls/hr 11/24/20 16:00 11/25/20 10:06 Sod 2.25 gm/ Sodium Chloride IV Infused Q8H [facility] Infusion Sodium Chloride 1,000 mls @ 75 mls/hr 11/24/20 11:00 11/25/20 09:32 Ns IVCONT 75 mls/hr .[id number] [facility] Administration Insulin Glargine 12 unit 11/24/20 21:00 11/25/20 09:11 Insulin Glargine,Hum.Rec.Anlog 100 Unit/Ml 10 Ml Vial SUBCUT Not Given BEDTIME [facility] Loratadine 10 mg 11/25/20 09:00 11/25/20 09:35 Loratadine 10 Mg Tablet PO 10 mg DAILY [facility] Administration Magnesium Hydroxide 30 ml 11/24/20 10:58 Milk Of Magnesia 30 Ml Oral.Susp PO DAILY PRN Constipation Magnesium Oxide 400 mg 11/25/20 09:00 11/25/20 09:35 Magnesium Oxide 400 Mg Tablet PO 400 mg DAILY [facility] Administration Methadone HCl 50 mg 11/25/20 09:00 11/25/20 09:59 Methadone Hcl 1 Mg/0.1 Ml Oral.Conc PO 50 mg DAILY [facility] Administration Montelukast Sodium 10 mg 11/24/20 21:00 11/25/20 09:11 Montelukast Sodium 10 Mg Tablet PO Not Given BEDTIME [facility] Omeprazole 40 mg 11/24/20 11:00 11/25/20 09:12 Omeprazole 40 Mg Capsule.Dr PO Not Given BID@8054,0870 [facility] Pharmacy Consult 1 each 11/24/20 07:11 Consult Rx Vancomycin Dosing MISCELLANE DAILY PRN Consult order Pharmacy Consult 1 each 11/24/20 07:53 Consult Rx Perform Med Rec MISCELLANE ONCE PRN Consult order Polyethylene Glycol 17 gm 11/25/20 09:00 11/25/20 09:36 Polyethylene Glycol 3350 17 Gm Powd.Pack PO Not Given DAILY [facility] Senna 8.6 mg 11/24/20 10:58 Sennosides 8.6 Mg Tablet PO BEDTIME PRN Constipation Sodium Chloride 3 ml 11/24/20 16:00 11/25/20 09:09 0.9 % Sodium Chloride Flush 3 Ml Syringe IVFLUSH 3 ml QSHIFT [facility] Administration Spironolactone 12.5 mg 11/25/20 09:00 11/25/20 09:35 Spironolactone 25 Mg Tablet PO 12.5 mg DAILY [facility] Administration Protocol Tamsulosin HCl 0.4 mg 11/25/20 09:00 11/25/20 09:34 Tamsulosin Hcl 0.4 Mg Capsule PO 0.4 mg DAILY [facility] Administration Tramadol HCl 50 mg 11/24/20 10:58 11/25/20 02:47 Tramadol Hcl 50 Mg Tablet PO 50 mg BID PRN Administration Pain Time Spent With Patient Time: Total time spent is greater than 50% in coordination of care (as documented) at patient's floor/unit and/or counseling patient: Time with patient: less than 15 minutes
[2020-11-25] MEDS: Clotrimazole 1 % Cream 15 GM TUBE 1 APPL TOPICAL ×2 (14:22→21:22)
[2020-11-25 15:31] VITALS: BP 119/69; PULSE 67; RESP 18; TEMP 36.1; O2SAT 97
[2020-11-25] MEDS: Omeprazole 40 MG CAPSULE.DR PO (15:40)
[2020-11-25] MEDS: Furosemide 40 MG TABLET PO (17:35)
--- NOTE | 2020-11-25 19:13 | PC.NURSE ---
Late entry for 1530. At around 1527 pt c/o bilateral chest pain L>R when student nurse was in to take pts vitals.Pt stated he has had this pain for about 3 days Pt was assessed, BP 119/69, p-67, temp 96.9, O2 97% RA and RR 18, lungs were clear and no c/o SOB. Dr. Nath was made aware at 1530 and stated okay to give tramadol at that time. Dr. Nath then ordered a CT of the chest. Pt was brought down for Chest CT at 1900. Pt stated before tramadol administration, pain was 10/10. Pt stated after tramadol adminstration, pain was 4/10 and medication was effective. Will await CT results at this time.
[2020-11-25 20:00] VITALS: BP 117/67; PULSE 70; RESP 18; TEMP 36.1; O2SAT 98
[2020-11-25 20:30] VITALS: BP 117/67; PULSE 70
[2020-11-25] MEDS: Insulin Glargine,Hum.rec.anlog 100 UNIT/ML 10 ML VIAL 12 UNIT SUBCUT (20:30)
[2020-11-25] MEDS: Montelukast Sodium 10 MG TABLET PO (20:31)
[2020-11-25] MEDS: Atorvastatin Calcium 20 MG TABLET PO (20:31)
[2020-11-25 20:35] LABS: Glucose, Whole Blood 148 mg/dL (60-115)
[2020-11-26] VITALS (8 sets, daily range): BP systolic 102–124; BP diastolic 51–64; PULSE 54–69; RESP 16–18; TEMP 36.2–36.8; O2SAT 96–100
--- NOTE | 2020-11-26 | US_ITS ---
EXAMINATION: US BILATERAL LOWER EXTREMITY DUPLEX DOPPLER ARTERIAL STUDY CLINICAL INFORMATION: Nonhealing ulcer. COMPARISON: 10/29/2019 TECHNIQUE: Real-time ultrasound and Doppler techniques (integrating B-mode 2D vascular images, Doppler spectral analysis and color flow Doppler imaging) were utilized to interrogate the lower extremities bilaterally. FINDINGS: There is calcified plaque seen throughout the study vasculature. RIGHT LOWER EXTREMITY: There is a right [id number] amputation present. The right common femoral artery has a triphasic waveform with peak systolic velocity of 117 cm/s. The proximal right superficial femoral artery has a biphasic waveform with peak systolic velocity 119 cm/s. The right mid superficial femoral artery has a biphasic waveform with peak systolic velocity 58 cm/s. The distal right superficial femoral artery has a biphasic waveform with peak systolic velocity of 106 cm/s. The right popliteal artery has a biphasic waveform with peak systolic velocity of 61 cm/s. LEFT LOWER EXTREMITY: The left common femoral artery has a monophasic waveform with peak systolic velocity of 106 cm/s. The proximal left superficial femoral artery has a monophasic waveform with peak systolic velocity of 49 cm/s. The profunda femoral artery has a triphasic waveform with peak systolic velocity 146 cm/s. The mid superficial femoral artery has a monophasic waveform with peak systolic velocity of 45 cm/s. The distal superficial femoral artery has a monophasic waveform with peak systolic velocity of 123 cm/s. The popliteal artery has a monophasic waveform with peak systolic velocity of 96 cm/s. The peroneal artery has a monophasic waveform with peak systolic velocity of 92 cm/s. The left posterior tibial artery in the proximal calf has a monophasic waveform with peak systolic velocity of 54 cm/s. Within the mid calf, there is a faintly seen monophasic posterior tibial artery waveform with elevated peak systolic velocity of greater than 200 cm/s which is likely just downstream of a severe stenosis. US/US arterial duplex LE BI IMPRESSION: Hemodynamically significant severe left lower extremity atherosclerotic disease. What appears to be mild hemodynamically significant right lower extremity disease down to the popliteal artery. Status post right [id number] amputation.
[2020-11-26] MEDS: traMADoL HCL 50 MG TABLET PO ×2 (02:12→20:04)
[2020-11-26] MEDS: Morphine Sulfate 4 MG/ML CARTRIDGE IVPUSH (04:44)
[2020-11-26] MEDS: Omeprazole 40 MG CAPSULE.DR PO (04:50)
--- NOTE | 2020-11-26 04:55 | PC.NURSE ---
P-PT C/O 08/22 ZEUS CHEST PAIN.MEDICATED WITH TRAMADOL 50MG AT 02:15 WITH NO EFFECT I- NOTIFIED ORDERED MORPHINE 4MG IV X 1.GIVEN AT 04:45 E-WILL CONTINUE TO MONITOR
[2020-11-26 06:39] LABS: Anion Gap 13 (12-20); Blood Urea Nitrogen 32 mg/dL (9-16); Calcium 8.5 mg/dL (8.4-10.2); Carbon Dioxide 28 mmol/L (22-29); Chloride 92 mmol/L (96-108); Creatinine Clr Calc Pharmacy 51.6; Estimated Glomerular Filt Rate 51; Glucose Random 133 mg/dL (60-115); Potassium 3.9 mmol/l (3.3-5.1); Sodium 129 mmol/L (135-145)
[2020-11-26] MEDS: Acetaminophen 325 MG TABLET 650 MG PO (07:59)
[2020-11-26] MEDS: Loratadine 10 MG TABLET PO (08:00)
[2020-11-26] MEDS: carvediloL 6.25 MG TABLET PO ×2 (08:00→20:03)
[2020-11-26] MEDS: Gabapentin 100 MG CAPSULE 200 MG PO ×3 (08:00→20:03)
[2020-11-26] MEDS: Clopidogrel Bisulfate 75 MG TABLET PO (08:00)
[2020-11-26 08:01] LABS: Glucose, Whole Blood 140 mg/dL (60-115)
[2020-11-26] MEDS: Tamsulosin HCL 0.4 MG CAPSULE PO (08:01)
[2020-11-26] MEDS: Spironolactone 25 MG TABLET 12.5 MG PO (08:01)
[2020-11-26] MEDS: Magnesium Oxide 400 MG TABLET PO (08:01)
[2020-11-26] MEDS: Aspirin Enteric Coated 81 MG TABLET.DR PO (08:01)
[2020-11-26] MEDS: Famotidine 20 MG TABLET PO ×2 (08:01→20:04)
[2020-11-26] MEDS: Piperacillin Sodium/Tazobactam 2.25 GM in 0.9 % Sodium Chloride 50 ML IV ×2 (08:02→15:57)
[2020-11-26 08:50] LABS: Glucose, Whole Blood 136 mg/dL (60-115)
--- NOTE | 2020-11-26 10:45 | MHC.CM.PN ---
NURSE BUSINESS ASSISTANT NOTE ELECTRONIC MEDICAL RECORD REVIEWED ALONG WITH CASE DISCUSSED WITH STAFF NURSE AND N MULTIPLE DISCIPLINARY ROUNDS. PER CHART DOCUMENTATION LEFT HEEL ULCER AND PAIN (HX, DIABETES, CHF,ASTHMA, SUBSTANCE ABUSE ON METHADONE) SURGICAL CONSULT CALLED ) PLAN IS TO CONTINUE TO MONITOR HEMATOLOGY, CHEMISTRY,BMP LABS, INTAKE/OUTPUT, IV ABX Q8HRS, AND PO METHADONE PATIENT WILL BE HAVING FURTHER IMAGING STUDIES TODAY, BUSINESS ASSISTANT TO CONTINUE TO FOLLOW DISCHARGE PLAN ANTICIPATE DISCHARGED HOME WITH LEYDI LOPEZ SELF RESUMPTION OF HIS [facility] THROUGH [facility] WILL NEED TO REQUIRE CHAIR VAN AT DISCHARGE
[2020-11-26 11:33] LABS: Glucose, Whole Blood 132 mg/dL (60-115)
--- NOTE | 2020-11-26 14:32 | PM.EVENT ---
Event Note Date of Service: 11/26/20 Event Note: Full consult dictated. Await MRI.
--- NOTE | 2020-11-26 15:18 | HO.PM.IMPN ---
Subjective Subjective Date of Service: 11/26/20 Interval History: the patient was seen and evaluated this morning Laying in bed, complaining of pain his chest wall and the Marcial Denies any fever, chills or shortness of breath No reported other overnight events. Systemic review: No fever, chills or weakness No chest pain, palpitation No shortness of breath or coughing No abdominal pain, nausea or vomiting No urinary symptoms No any rash or wounds Physical Exam Vital Signs: Vital Signs: Last Vital Signs Temp 97.7 F 11/26/20 11:38 Pulse 67 11/26/20 11:38 Resp 18 11/26/20 11:38 BP 102/60 11/26/20 11:38 Pulse Ox 100 11/26/20 11:38 Body Mass Index 21.7 Constitutional : Alert, oriented, not in distress Neck : Normal inspection, Supple Cardiovascular : RRR, S1 S2, no lower extremity edema Respiratory : Good bilateral air entry, no crackles, wheezes or rhonchi Gastrointestinal: soft, lax, epigastric tenderness, Non tender Musculoskeletal: Right below-knee amputation Skin : Warm/Dry, left heel dry unstageable ulcer with surrounding mild erythema and tenderness, no drainage noted. Neurological : Alert & oriented x3, No focal deficit Objective Data Current Medications Generic Name Dose Route Start Last Admin Trade Name Freq PRN Reason Stop Dose Admin Acetaminophen 650 mg 11/24/20 10:58 11/26/20 07:59 Acetaminophen 325 Mg Tablet PO 650 mg Q6H PRN Administration Pain, Mild (Pain Scale 1-3) Albuterol Sulfate 2.5 mg 11/24/20 10:58 Albuterol Sulfate (0.083%) 2.5 Mg/3 Ml Vial.Neb INHALE Q4H PRN Shortness Of Breath Or Wheezing Albuterol Sulfate 2 puff 11/24/20 10:58 Albuterol Sulfate 90 Mcg 8 Gm Inhaler INHALE Q4H PRN Shortness Of Breath Aspirin 81 mg 11/25/20 09:00 11/26/20 08:01 Aspirin Enteric Coated 81 Mg Tablet.Dr PO 81 mg DAILY [facility] Administration Atorvastatin Calcium 20 mg 11/24/20 21:00 11/25/20 20:31 Atorvastatin Calcium 20 Mg Tablet PO 20 mg BEDTIME [facility] Administration Carvedilol 6.25 mg 11/24/20 11:00 11/26/20 08:00 Carvedilol 6.25 Mg Tablet PO 6.25 mg BID [facility] Administration Protocol Clopidogrel Bisulfate 75 mg 11/24/20 11:00 11/26/20 08:00 Clopidogrel Bisulfate 75 Mg Tablet PO 75 mg DAILY [facility] Administration Clotrimazole 1 appl 11/24/20 15:00 11/26/20 13:38 Clotrimazole 1 % Cream 15 Gm Tube TOPICAL Not Given TID [facility] Ergocalciferol 1,250 mcg 11/29/20 10:00 Ergocalciferol (Vitamin D2) 1,250 Mcg Capsule PO Call@1000 [facility] Famotidine 20 mg 11/24/20 21:00 11/26/20 08:01 Famotidine 20 Mg Tablet PO 20 mg BID [facility] Administration Fluticasone Propionate 1 spray 11/24/20 11:00 11/26/20 09:00 Fluticasone Propionate Nasal 16 Gm [place] NOSTRIL-B Not Given DAILY [facility] Fluticasone Propionate 1 puff 11/24/20 20:00 11/26/20 07:15 Fluticasone Propionate 100 Mcg Blst.W.Dev INHALE Not Given RBID [facility] Furosemide 40 mg 11/24/20 17:00 11/25/20 17:35 Furosemide 40 Mg Tablet PO 40 mg DAILY@1700 [facility] Administration Protocol Furosemide 80 mg 11/26/20 09:00 11/26/20 08:01 Furosemide 40 Mg Tablet PO 80 mg DAILY [facility] Administration Protocol Gabapentin 200 mg 11/24/20 15:00 11/26/20 14:25 Gabapentin 100 Mg Capsule PO 200 mg TID [facility] Administration Heparin Sodium (Porcine) 5,000 unit 11/24/20 11:00 11/26/20 13:37 Heparin Sodium,Porcine 5,000 Unit/Ml Vial SUBCUT Not Given Q8H [facility] Piperacillin Sod/Tazobactam 50 mls @ 100 mls/hr 11/24/20 16:00 11/26/20 09:00 Sod 2.25 gm/ Sodium Chloride IV Infused Q8H [facility] Infusion Sodium Chloride 1,000 mls @ 75 mls/hr 11/24/20 11:00 11/26/20 13:39 Ns IVCONT 75 mls/hr .[id number] [facility] Infusion Insulin Glargine 12 unit 11/24/20 21:00 11/25/20 20:30 Insulin Glargine,Hum.Rec.Anlog 100 Unit/Ml 10 Ml Vial SUBCUT 12 unit BEDTIME [facility] Administration Loratadine 10 mg 11/25/20 09:00 11/26/20 08:00 Loratadine 10 Mg Tablet PO 10 mg DAILY [facility] Administration Magnesium Hydroxide 30 ml 11/24/20 10:58 Milk Of Magnesia 30 Ml Oral.Susp PO DAILY PRN Constipation Magnesium Oxide 400 mg 11/25/20 09:00 11/26/20 08:01 Magnesium Oxide 400 Mg Tablet PO 400 mg DAILY [facility] Administration Methadone HCl 50 mg 11/25/20 09:00 11/26/20 08:00 Methadone Hcl 1 Mg/0.1 Ml Oral.Conc PO 50 mg DAILY [facility] Administration Montelukast Sodium 10 mg 11/24/20 21:00 11/25/20 20:31 Montelukast Sodium 10 Mg Tablet PO 10 mg BEDTIME [facility] Administration Omeprazole 40 mg 11/24/20 11:00 11/26/20 04:50 Omeprazole 40 Mg Capsule. PO 40 mg BID@2629,0648 [facility] Administration Pharmacy Consult 1 each 11/24/20 07:11 Consult Rx Vancomycin Dosing MISCELLANE DAILY PRN Consult order Pharmacy Consult 1 each 11/24/20 07:53 Consult Rx Perform Med Rec MISCELLANE ONCE PRN Consult order Polyethylene Glycol 17 gm 11/25/20 09:00 11/26/20 08:03 Polyethylene Glycol 3350 17 Gm Powd.Pack PO Not Given DAILY [facility] Senna 8.6 mg 11/24/20 10:58 Sennosides 8.6 Mg Tablet PO BEDTIME PRN Constipation Sodium Chloride 3 ml 11/24/20 16:00 11/26/20 08:02 0.9 % Sodium Chloride Flush 3 Ml Syringe IVFLUSH Not Given QSHIFT [facility] Spironolactone 12.5 mg 11/25/20 09:00 11/26/20 08:01 Spironolactone 25 Mg Tablet PO 12.5 mg DAILY [facility] Administration Protocol Tamsulosin HCl 0.4 mg 11/25/20 09:00 11/26/20 08:01 Tamsulosin Hcl 0.4 Mg Capsule PO 0.4 mg DAILY [facility] Administration Tramadol HCl 50 mg 11/24/20 10:58 11/26/20 02:12 Tramadol Hcl 50 Mg Tablet PO 50 mg BID PRN Administration Pain Labs CBC & Chem 7: 11/25/20 06:11 11/26/20 05:58 Microbiology Microbiology Results: Microbiology 11/24/20 04:50 Blood - Venous Blood Culture - Preliminary No growth after 48 hours. 11/24/20 04:50 Blood - Venous Blood Culture - Preliminary No growth after 48 hours. 11/24/20 Unknown Urine clean catch - Clean Catch Midstream Urine Culture - Final No growth. Assessment and Plan (1) Acute kidney injury: Status: Acute (2) Unstageable pressure ulcer of heel: Status: Acute (3) Acute on chronic anemia: Status: Inactive (4) Diabetes mellitus, type 2: Status: Inactive (5) Hypernatremia: Status: Acute Assessment and Plan: A 50 years old male with PMH of diabetes, CHF, asthma, history substance abuse who presents to the hospital complaining of epigastric pain for the last 3 days associated with left heel ulcers and pain. Acute kidney injury Seems prerenal Creatinine improved to 1.45 today with elevated BUN Evaluated urine studies Continue gentle hydration Hold nephrotoxic medications Monitor intake and output Follow BMP Left heel ulcer Unstageable, XR showing has been needed To check MRI when kidney function improves Continue antibiotic of Zosyn Vascular surgery input appreciated, pending MRI to decide on next step Peripheral vascular disease Duplex lower extremity showed severe left lower extremity atherosclerosis disease Epigastric pain EKG not showing any new findings, no ACS Troponin trended negative Could be secondary to gastritis, gastric ulcer Start omeprazole Hold naproxen and NSAIDs Acute on chronic anemia Hemoglobin dropped to 9 from baseline of 12 with elevated RDW Stable hemoglobin acceptable iron stores Check occult stool Start omeprazole Monitor H&H Hyponatremia Secondary to Chaim decreased oral intake Dropped to 129 Continue to monitor after IV fluids Systolic CHF Restart Lasix Continue to hold losartan continue Aldacton, Coreg Start aspirin Plavix Diabetes sliding scale ordered POC, diabetic diet Peripheral Neuropathy Gabapentin Ashtma stable. DVT PPx Hold Heparin SC
--- NOTE | 2020-11-26 15:19 | CONS_ITS ---
DATE OF SERVICE: 11/26/2020 REASON FOR CONSULTATION: Nonhealing left heel ulcer. HISTORY OF PRESENT ILLNESS: A 50-year-old diabetic gentleman with a history of polysubstance abuse. He actually presented to the hospital initially with some epigastric pain. He has been complaining of this left heel ulcer that he reports was about a week ago suspected significantly longer process than that. He now presents to us for vascular evaluation. Of note, at the time of evaluation, he is found to have acute kidney injury with a creatinine of 2.5 with associated hyponatremia. PAST MEDICAL HISTORY: Includes anemia, congestive heart failure, asthma, bipolar disorder, BPH, cholelithiasis, COPD, diabetes, GERD, hypertension, hyperlipidemia, peripheral neuropathy. PAST SURGICAL HISTORY: Includes right BKA, TURP, laminectomy, and prior toe amputations, which subsequently led to the BKA. MEDICATIONS: Medication list was reviewed. ALLERGIES: HE HAS A SIGNIFICANT ALLERGY LIST INCLUDING VANCOMYCIN, CHOCOLATE, CIPROFLOXACIN, ERTAPENEM, HYDROCODONE, SULFAMETHOXAZOLE, BACTRIM, [place], INVANZ. SOCIAL HISTORY: Nondrinker. Nonsmoker. Admits to occasional marijuana use, but does have a history of polysubstance abuse. FAMILY HISTORY: No history of advanced coronary artery disease or peripheral vascular disease. REVIEW OF SYSTEMS: 13-point review was performed. At the current time, denies any headache, dizziness, nausea, vomiting, diarrhea, or shortness of breath. Denies any significant left lower extremity tenderness. Rest of 13-point review was essentially negative. PHYSICAL EXAMINATION: GENERAL: Afebrile. VITAL SIGNS: Stable. HEAD AND NECK: Demonstrates no bruits. CHEST: Moving air bilaterally. CARDIAC: Positive S1 and S2. ABDOMEN: Soft. EXTREMITIES: Upper extremities have good radial and ulnar pulses. Lower extremities, right side amp well healed. Left side heel with dry eschar. DIAGNOSTIC DATA: Laboratory study demonstrates most recent white count of 11.9. On presentation, BUN of 49, creatinine of 1.8. Now, he has a BUN of 32, creatinine of 1.45 with a GFR of 51. Ultrasound I independently reviewed images and interpreted ultrasound done on 11/26/2020 demonstrates severe left lower extremity atherosclerotic disease. IMPRESSION: Nonhealing left foot ulcer. I do believe this is multifactorial in nature related to his poor care, diabetes, and peripheral vascular disease. At the time of my examination, he was refusing MRI and reported being tired. I did have a very alka discussion with him. The MRI is critical to knowing if there is bone infection. It will guide our future treatment. If we cannot move forward with that, he is at high risk for another amputation. He does recognize and is aware that this is true. There is a nurse present at the time of my conversation. In addition, we will require kidney function to stabilize and MRI prior to any further treatment or intervention. We will continue to monitor his status with you. Thank you for allowing us to assist in his care. MD GONZÁLEZ Shah/LISA / [phone]
[2020-11-26] MEDS: 0.9 % Sodium Chloride Flush 3 ML SYRINGE IVFLUSH (15:57)
[2020-11-26] MEDS: Furosemide 40 MG TABLET PO (16:04)
[2020-11-26] MEDS: 0.9 % Sodium Chloride 1,000 ML 75 ML IVCONT (16:07)
[2020-11-26] MEDS: Morphine Sulfate 2 MG/ML CARTRIDGE IVPUSH (17:49)
[2020-11-26] MEDS: Heparin Sodium,Porcine 5,000 UNIT/ML VIAL 5000 UNIT SUBCUT (20:03)
[2020-11-26] MEDS: Atorvastatin Calcium 20 MG TABLET PO (20:04)
[2020-11-26] MEDS: Montelukast Sodium 10 MG TABLET PO (20:04)
[2020-11-26] MEDS: Insulin Glargine,Hum.rec.anlog 100 UNIT/ML 10 ML VIAL 12 UNIT SUBCUT (20:05)
--- NOTE | 2020-11-27 | US_ITS ---
EXAMINATION: ULTRASOUND-GUIDED FINE-NEEDLE ASPIRATION CLINICAL INFORMATION: Right chest wall mass COMPARISON: Previous CT scans most recent from 11/25/2020 TECHNIQUE: Procedure and risks and benefits including bleeding and infection were discussed patient through an license registration examiner and informed consent was obtained. The right and midline anterior chest was prepped and draped in usual sterile fashion. The skin and soft tissues were anesthetized with 1% lidocaine plain. Using ultrasound guidance and a 22-gauge needle, 3 22-gauge FNA specimens were obtained from the asymmetric low-attenuation soft tissue in the right chest wall over the right side of the sternum and right anterior chest. There is no complication. Core biopsy was not performed due to patient being on blood thinning medicine. Specimen was sent for Gram stain, culture, fungal culture, cytology and flow cytometry studies. FINDINGS: There is asymmetric hypoechoic soft tissue overlying the sternum and right upper anterior chest that was targeted for fine-needle aspiration. US/US guided fine needle asp IMPRESSION: Ultrasound-guided fine-needle aspiration of asymmetric hypoechoic soft tissue of the right anterior chest wall.
[2020-11-27] MEDS: 0.9 % Sodium Chloride Flush 3 ML SYRINGE IVFLUSH ×3 (00:41→16:05)
[2020-11-27] MEDS: Piperacillin Sodium/Tazobactam 2.25 GM in 0.9 % Sodium Chloride 50 ML IV ×4 (00:42→21:21)
[2020-11-27 04:00] VITALS: BP 100/53; PULSE 59; RESP 17; TEMP 36.4; O2SAT 97
[2020-11-27] MEDS: Omeprazole 40 MG CAPSULE.DR PO ×2 (05:58→17:34)
[2020-11-27] MEDS: Morphine Sulfate 4 MG/ML CARTRIDGE IVPUSH (06:02)
[2020-11-27 07:27] VITALS: BP 119/61; PULSE 61; RESP 18; TEMP 36.4; O2SAT 100
--- NOTE | 2020-11-27 07:48 | PC.NURSE ---
MRI called to see if patient wants to do his MRI, went down to ask him with the nurses aide and he stated no he was not going to do it Told MRI what he said
--- NOTE | 2020-11-27 07:50 | PC.NURSE ---
Just spoke to about no going to go for the MRI, doctor went to speak to patient.
--- NOTE | 2020-11-27 08:00 | MR_ITS ---
EXAMINATION: MR ANKLE WITHOUT AND WITH CONTRAST, LEFT CLINICAL INFORMATION: Left ankle wound. Evaluate for osteomyelitis. COMPARISON: Prior MRI from 10/28/2019. Radiographs of foot from 11/24/2020. TECHNIQUE: MR imaging of the left ankle was performed using standard sequences on a high-field 1.5 Nataly magnet without and with intravenous administration of 6 mL Gadavist. FINDINGS: Several of the imaging sequences are motion degraded. There is a deep soft tissue wound of the posterior heel. The wound overlies the Achilles tendon near its tuberosity insertion. There is heterogeneous signal of the distal Achilles from tendinosis and partial-thickness tearing involving the more lateral tendon fibers. There is enthesopathy and mild cortical bone erosion at the Achilles insertion. Bone marrow edema and marrow enhancement are present within the posterior calcaneal tuberosity. There is loss of fatty marrow signal in the area of inflammation. The constellation of findings are consistent with calcaneal osteomyelitis. No calcaneal fracture. There is an old longitudinal split tear of the peroneal brevis tendon as it courses around the fibular malleolus. No evidence of peroneal tenosynovitis. Otherwise, tendons are unremarkable. No evidence of deltoid or lateral ankle ligament injury. Bones have normal alignment at the ankle and visualized proximal foot. Small, physiologic amount of fluid is present in the ankle joint. The articular cartilage of the ankle and subtalar joints is generally well-preserved. No articular surface erosion. Small osteophytes are present at the mildly degenerated talonavicular joint. Alignment is maintained at the Chopart and Lisfranc joints. The Lisfranc ligament complex is intact. Diffuse atrophy and fatty replacement of muscles of the visualized foot. The muscles exhibit hyperintense signal on fat-suppressed fluid sensitive sequences. These findings are likely sequela of chronic diabetic associated neuropathy/myopathy. No focal fluid collection or mass. Plantar aponeurosis is intact. MR/MR ankle LT wo/w con IMPRESSION: * Deep soft tissue wound overlying the posterior heel in region of Achilles tendon insertion. * Associated tendinosis and partial-thickness tearing of the underlying Achilles tendon. * Imaging findings of osteomyelitis involving the posterior calcaneal tuberosity (around region of Achilles insertion). No calcaneal fracture. * Old, longitudinal split tear of the peroneus brevis tendon as it courses around the fibular malleolus. * Diffuse atrophy and fatty replacement of muscles, which are hyperintense on T2-weighted images, likely sequela of chronic diabetic associated neuropathy/myopathy.
[2020-11-27 08:57] LABS: INTERNATIONAL NORM RATIO 1.3 (0.9-1.1); Prothrombin Time 15.5 SEC (10.8-13.0)
[2020-11-27 09:24] LABS: Anion Gap 14 (12-20); Blood Urea Nitrogen 20 mg/dL (9-16); Calcium 8.7 mg/dL (8.4-10.2); Carbon Dioxide 27 mmol/L (22-29); Chloride 95 mmol/L (96-108); Creatinine Clr Calc Pharmacy 61.8; Estimated Glomerular Filt Rate > 60; Glucose Random 44 mg/dL (60-115); Potassium 3.7 mmol/l (3.3-5.1); Sodium 132 mmol/L (135-145); Vancomycin Trough 3.6 mcg/mL (10.0-20.0)
[2020-11-27] MEDS: Meclizine HCl 25 MG TABLET PO (09:30)
[2020-11-27 09:52] LABS: Glucose, Whole Blood 59 mg/dL (60-115)
--- NOTE | 2020-11-27 10:47 | HO.VASCPN ---
Subjective Subjective Date of Service: 11/27/20 Patient reports: no new complaints and still having pain Interval history: patient with nonhealing left foot ulcer. No events overnight. Continues to have pain in that foot. Now for follow up Physical Exam Vital Signs: Vital Signs: Last Vital Signs Temp 97.5 F 11/27/20 07:27 Pulse 61 11/27/20 07:27 Resp 18 11/27/20 07:27 BP 119/61 11/27/20 07:27 Pulse Ox 100 11/27/20 07:27 Body Mass Index 21.7 Const: General: cooperative, healthy appearing and no acute distress Orientation/consciousness: oriented to person, oriented to place and oriented to time HENMT: Head: Yes normal to inspection Neck: Carotids: no bruits Chest: Chest palpation & inspection: normal inspection of the chest Resp: Effort & Inspection: normal respiratory effort and able to speak in complete sentences Auscultation: clear to auscultation bilaterally Cardio: Rate: regular rate Heart sounds: S1 normal heart sound present and S2 normal heart sound present GI: Inspection: Yes normal to inspection Skin: General skin exam: no rashes or lesions noted Wounds: amputation site (right healed) and wounds noted (left heel.) Neuro: General: oriented to person, oriented to place, oriented to time and CN's II-XI intact bilaterally Extrem: General: Yes normal to inspection, Yes full ROM and Yes no clubbing, cyanosis or edema Psych: Appearance: grossly normal and well kempt Speech and movement: Normal speech and movement present Affect: normal affect Progress Note: A&P Assessment and plan (1) Peripheral arterial disease: Status: Inactive Assessment and Plan: Nonhealing left lower extremity ulcer. Arterial testing demonstrates significant peripheral vascular disease. He will require endovascular intervention. Awaiting MRI. Will plan intervention based on MRI an arterial findings accordingly. Once again he was informed about his high risk of limb loss. I also discussed his lack of compliance and unwillingness to participate in testing and his own care will only lead to an amputation on the other leg. He demonstrated a clear understanding of this Thank you for allowing us to assist in his care. Fall Risk Details Current Medications: Current Medications Generic Name Dose Route Start Last Admin Trade Name Freq PRN Reason Stop Dose Admin Acetaminophen 650 mg 11/24/20 10:58 11/26/20 07:59 Acetaminophen 325 Mg Tablet PO 650 mg Q6H PRN Administration Pain, Mild (Pain Scale 1-3) Albuterol Sulfate 2.5 mg 11/24/20 10:58 Albuterol Sulfate (0.083%) 2.5 Mg/3 Ml Vial.Neb INHALE Q4H PRN Shortness Of Breath Or Wheezing Albuterol Sulfate 2 puff 11/24/20 10:58 Albuterol Sulfate 90 Mcg 8 Gm Inhaler INHALE Q4H PRN Shortness Of Breath Aspirin 81 mg 11/25/20 09:00 11/27/20 10:42 Aspirin Enteric Coated 81 Mg Tablet.Dr PO Not Given DAILY [facility] Atorvastatin Calcium 20 mg 11/24/20 21:00 11/26/20 20:04 Atorvastatin Calcium 20 Mg Tablet PO 20 mg BEDTIME [facility] Administration Carvedilol 6.25 mg 11/24/20 11:00 11/27/20 10:42 Carvedilol 6.25 Mg Tablet PO Not Given BID [facility] Protocol Clopidogrel Bisulfate 75 mg 11/24/20 11:00 11/27/20 10:42 Clopidogrel Bisulfate 75 Mg Tablet PO Not Given DAILY [facility] Clotrimazole 1 appl 11/24/20 15:00 11/27/20 09:47 Clotrimazole 1 % Cream 15 Gm Tube TOPICAL Not Given TID [facility] Ergocalciferol 1,250 mcg 11/29/20 10:00 Ergocalciferol (Vitamin D2) 1,250 Mcg Capsule PO Call@1000 [facility] Famotidine 20 mg 11/24/20 21:00 11/27/20 10:42 Famotidine 20 Mg Tablet PO Not Given BID [facility] Fluticasone Propionate 1 spray 11/24/20 11:00 11/27/20 09:47 Fluticasone Propionate Nasal [address] Gm [facility] NOSTRIL-B Not Given DAILY [facility] Fluticasone Propionate 1 puff 11/24/20 20:00 11/27/20 08:44 Fluticasone Propionate 100 Mcg Blst.W.Dev INHALE Not Given RBID [facility] Furosemide 40 mg 11/24/20 17:00 11/26/20 16:04 Furosemide 40 Mg Tablet PO 40 mg DAILY@1700 [facility] Administration Protocol Furosemide 80 mg 11/26/20 09:00 11/27/20 10:40 Furosemide 40 Mg Tablet PO Not Given DAILY [facility] Protocol Gabapentin 200 mg 11/24/20 15:00 11/27/20 10:40 Gabapentin 100 Mg Capsule PO Not Given TID [facility] Heparin Sodium (Porcine) 5,000 unit 11/24/20 11:00 11/27/20 03:46 Heparin Sodium,Porcine 5,000 Unit/Ml Vial SUBCUT Not Given Q8H [facility] Piperacillin Sod/Tazobactam 50 mls @ 100 mls/hr 11/24/20 16:00 11/27/20 10:43 Sod 2.25 gm/ Sodium Chloride IV Infused Q8H [facility] Infusion Dextrose/Sodium Chloride 1,000 mls @ 50 mls/hr 11/27/20 10:15 D5ns IVCONT 11/28/20 06:14 .Q20H [facility] Insulin Glargine 8 unit 11/27/20 21:00 Insulin Glargine,Hum.Rec.Anlog 100 Unit/Ml 10 Ml Vial SUBCUT BEDTIME [facility] Loratadine 10 mg 11/25/20 09:00 11/27/20 10:40 Loratadine 10 Mg Tablet PO Not Given DAILY [facility] Magnesium Hydroxide 30 ml 11/24/20 10:58 Milk Of Magnesia 30 Ml Oral.Susp PO DAILY PRN Constipation Magnesium Oxide 400 mg 11/25/20 09:00 11/27/20 10:40 Magnesium Oxide 400 Mg Tablet PO Not Given DAILY [facility] Methadone HCl 50 mg 11/25/20 09:00 11/27/20 10:38 Methadone Hcl 1 Mg/0.1 Ml Oral.Conc PO 50 mg DAILY [facility] Administration Montelukast Sodium 10 mg 11/24/20 21:00 11/26/20 20:04 Montelukast Sodium 10 Mg Tablet PO 10 mg BEDTIME [facility] Administration Omeprazole 40 mg 11/24/20 11:00 11/27/20 05:58 Omeprazole 40 Mg Capsule. PO 40 mg BID@0630,1630 [facility] Administration Pharmacy Consult 1 each 11/24/20 07:11 Consult Rx Vancomycin Dosing MISCELLANE DAILY PRN Consult order Pharmacy Consult 1 each 11/24/20 07:53 Consult Rx Perform Med Rec MISCELLANE ONCE PRN Consult order Polyethylene Glycol 17 gm 11/25/20 09:00 11/27/20 10:40 Polyethylene Glycol 3350 17 Gm Powd.Pack PO Not Given DAILY [facility] Senna 8.6 mg 11/24/20 10:58 Sennosides 8.6 Mg Tablet PO BEDTIME PRN Constipation Sodium Chloride 3 ml 11/24/20 16:00 11/27/20 09:30 0.9 % Sodium Chloride Flush 3 Ml Syringe IVFLUSH 3 ml QSHIFT [facility] Administration Spironolactone 12.5 mg 11/25/20 09:00 11/27/20 10:41 Spironolactone 25 Mg Tablet PO Not Given DAILY [facility] Protocol Tamsulosin HCl 0.4 mg 11/25/20 09:00 11/27/20 10:41 Tamsulosin Hcl 0.4 Mg Capsule PO Not Given DAILY [facility] Tramadol HCl 50 mg 11/24/20 10:58 11/26/20 20:04 Tramadol Hcl 50 Mg Tablet PO 50 mg BID PRN Administration Pain Time Spent With Patient Time: Total time spent is greater than 50% in coordination of care (as documented) at patient's floor/unit and/or counseling patient: Time with patient: 15 - 24 minutes
--- NOTE | 2020-11-27 10:56 | MHC.CM.PN ---
PER PHYSICIAN ROUNDS, NOPLANS FOR DISCHARGE NOW OR OVER THE WEEKEND. SCHEDULED FOR MRI - CORE BIOPSY AND SCHEDULED FOR ANGIOGRAM ON Monday11/30/20. PATIENT WILL REMAIN OVER THE WEEKEND WITH HIS IV ABX. [facility] UPDATED IN [facility]
[2020-11-27 11:22] VITALS: BP 120/60; PULSE 68; RESP 18; TEMP 36.1; O2SAT 97
[2020-11-27 11:46] LABS: Glucose, Whole Blood 91 mg/dL (60-115)
--- NOTE | 2020-11-27 12:28 | HO.PM.IMPN ---
Subjective Subjective Date of Service: 11/27/20 Interval History: the patient was seen and evaluated this morning Laying in bed, complaining of pain his chest wall and upper abdomen Denies any fever, chills or shortness of breath No reported other overnight events. Systemic review: No fever, chills or weakness No a palpitation , as epigastric and lower chest pain is No shortness of breath or coughing No abdominal pain, nausea or vomiting No urinary symptoms No any rash or wounds Physical Exam Vital Signs: Vital Signs: Last Vital Signs Temp 97 F 11/27/20 11:22 Pulse 68 11/27/20 11:22 Resp 18 11/27/20 11:22 BP 120/60 11/27/20 11: Pulse Ox 97 11/27/20 11:22 Body Mass Index 21.7 Constitutional : Alert, oriented, not in distress Neck : Normal inspection, Supple Cardiovascular : RRR, S1 S2, no lower extremity edema Respiratory : Good bilateral air entry, no crackles, wheezes or rhonchi Gastrointestinal: soft, lax, epigastric tenderness, Non tender Musculoskeletal: Right below-knee amputation Skin : Warm/Dry, left heel dry unstageable ulcer with surrounding mild erythema and tenderness, no drainage noted. Neurological : Alert & oriented x3, No focal deficit is which Objective Data Current Medications Generic Name Dose Route Start Last Admin Trade Name Freq PRN Reason Stop Dose Admin Acetaminophen 650 mg 11/24/20 10:58 11/26/20 07:59 Acetaminophen 325 Mg Tablet PO 650 mg Q6H PRN Administration Pain, Mild (Pain Scale 1-3) Albuterol Sulfate 2.5 mg 11/24/20 10:58 Albuterol Sulfate (0.083%) 2.5 Mg/3 Ml Vial.Neb INHALE Q4H PRN Shortness Of Breath Or Wheezing Albuterol Sulfate 2 puff 11/24/20 10:58 Albuterol Sulfate 90 Mcg 8 Gm Inhaler INHALE Q4H PRN Shortness Of Breath Aspirin 81 mg 11/25/20 09:00 11/27/20 10:42 Aspirin Enteric Coated 81 Mg Tablet.Dr PO Not Given DAILY [facility] Atorvastatin Calcium 20 mg 11/24/20 21:00 11/26/20 20:04 Atorvastatin Calcium 20 Mg Tablet PO 20 mg BEDTIME [facility] Administration Carvedilol 6.25 mg 11/24/20 11:00 11/27/20 10:42 Carvedilol 6.25 Mg Tablet PO Not Given BID [facility] Protocol Clopidogrel Bisulfate 75 mg 11/24/20 11:00 11/27/20 10:42 Clopidogrel Bisulfate 75 Mg Tablet PO Not Given DAILY [facility] Clotrimazole 1 appl 11/24/20 15:00 11/27/20 09:47 Clotrimazole 1 % Cream 15 Gm Tube TOPICAL Not Given TID [facility] Ergocalciferol 1,250 mcg 11/29/20 10:00 Ergocalciferol (Vitamin D2) 1,250 Mcg Capsule PO Call@1000 [facility] Famotidine 20 mg 11/24/20 21:00 11/27/20 10:42 Famotidine 20 Mg Tablet PO Not Given BID [facility] Fluticasone Propionate 1 spray 11/24/20 11:00 11/27/20 09:47 Fluticasone Propionate Nasal 16 Gm [place] NOSTRIL-B Not Given DAILY [facility] Fluticasone Propionate 1 puff 11/24/20 20:00 11/27/20 08:44 Fluticasone Propionate 100 Mcg Blst.W.Dev INHALE Not Given RBID [facility] Furosemide 40 mg 11/24/20 17:00 11/26/20 16:04 Furosemide 40 Mg Tablet PO 40 mg DAILY@1700 [facility] Administration Protocol Furosemide 80 mg 11/26/20 09:00 11/27/20 10:40 Furosemide 40 Mg Tablet PO Not Given DAILY [facility] Protocol Gabapentin 200 mg 11/24/20 15:00 11/27/20 10:40 Gabapentin 100 Mg Capsule PO Not Given TID [facility] Heparin Sodium (Porcine) 5,000 unit 11/24/20 11:00 11/27/20 12:20 Heparin Sodium,Porcine 5,000 Unit/Ml Vial SUBCUT Not Given Q8H [facility] Piperacillin Sod/Tazobactam 50 mls @ 100 mls/hr 11/24/20 16:00 11/27/20 10:43 Sod 2.25 gm/ Sodium Chloride IV Infused Q8H [facility] Infusion Dextrose/Sodium Chloride 1,000 mls @ 50 mls/hr 11/27/20 10:15 D5ns IVCONT 11/28/20 06:14 .Q20H [facility] Insulin Glargine 8 unit 11/27/20 21:00 Insulin Glargine,Hum.Rec.Anlog 100 Unit/Ml 10 Ml Vial SUBCUT BEDTIME [facility] Loratadine 10 mg 11/25/20 09:00 11/27/20 10:40 Loratadine 10 Mg Tablet PO Not Given DAILY [facility] Magnesium Hydroxide 30 ml 11/24/20 10:58 Milk Of Magnesia 30 Ml Oral.Susp PO DAILY PRN Constipation Magnesium Oxide 400 mg 11/25/20 09:00 11/27/20 10:40 Magnesium Oxide 400 Mg Tablet PO Not Given DAILY [facility] Methadone HCl 50 mg 11/25/20 09:00 11/27/20 10:38 Methadone Hcl 1 Mg/0.1 Ml Oral.Conc PO 50 mg DAILY [facility] Administration Montelukast Sodium 10 mg 11/24/20 21:00 11/26/20 20:04 Montelukast Sodium 10 Mg Tablet PO 10 mg BEDTIME [facility] Administration Omeprazole 40 mg 11/24/20 11:00 11/27/20 05:58 Omeprazole 40 Mg Capsule.Dr PO 40 mg BID@2395,6452 [facility] Administration Pharmacy Consult 1 each 11/24/20 07:11 Consult Rx Vancomycin Dosing MISCELLANE DAILY PRN Consult order Pharmacy Consult 1 each 11/24/20 07:53 Consult Rx Perform Med Rec MISCELLANE ONCE PRN Consult order Polyethylene Glycol 17 gm 11/25/20 09:00 11/27/20 10:40 Polyethylene Glycol 3350 17 Gm Powd.Pack PO Not Given DAILY [facility] Senna 8.6 mg 11/24/20 10:58 Sennosides 8.6 Mg Tablet PO BEDTIME PRN Constipation Sodium Chloride 3 ml 11/24/20 16:00 11/27/20 09:30 0.9 % Sodium Chloride Flush 3 Ml Syringe IVFLUSH 3 ml QSHIFT [facility] Administration Spironolactone 12.5 mg 11/25/20 09:00 11/27/20 10:41 Spironolactone 25 Mg Tablet PO Not Given DAILY [facility] Protocol Tamsulosin HCl 0.4 mg 11/25/20 09:00 11/27/20 10:41 Tamsulosin Hcl 0.4 Mg Capsule PO Not Given DAILY [facility] Tramadol HCl 50 mg 11/24/20 10:58 11/26/20 20:04 Tramadol Hcl 50 Mg Tablet PO 50 mg BID PRN Administration Pain Labs CBC & Chem 7: 11/25/20 06:11 11/27/20 07:56 Microbiology Microbiology Results: Microbiology 11/24/20 04:50 Blood - Venous Blood Culture - Preliminary No growth after 48 hours. 11/24/20 04:50 Blood - Venous Blood Culture - Preliminary No growth after 48 hours. 11/24/20 Unknown Urine clean catch - Clean Catch Midstream Urine Culture - Final No growth. Assessment and Plan (1) Acute kidney injury: Status: Acute (2) Unstageable pressure ulcer of heel: Status: Acute (3) Acute on chronic anemia: Status: Inactive (4) Diabetes mellitus, type 2: Status: Inactive (5) Hypernatremia: Status: Acute Assessment and Plan: A 50 years old male with PMH of diabetes, CHF, asthma, history substance abuse who presents to the hospital complaining of epigastric pain for the last 3 days associated with left heel ulcers and pain. Acute kidney injury Seems prerenal Creatinine improved to 1.2 Evaluated urine studies Continue gentle hydration Hold nephrotoxic medications Monitor intake and output Follow BMP Left heel ulcer Unstageable, XR showing has been needed To check MRI home to you today Continue antibiotic of Zosyn Vascular surgery input appreciated, pending MRI to decide on next step Peripheral vascular disease Duplex lower extremity showed severe left lower extremity atherosclerosis disease Soft tissue mass Chest pain EKG not showing any new findings, no ACS Troponin trended negative CT scan of the abdomen concerning for soft tissue mass extending in our to the sternum and ribs Plan to do biopsy today Hold naproxen and NSAIDs Acute on chronic anemia Hemoglobin dropped to 9 from baseline of 12 with elevated RDW Stable hemoglobin acceptable iron stores Check occult stool Start omeprazole Monitor H&H Hyponatremia Secondary to Chaim decreased oral intake Improved to 132 Continue to monitor after IV fluids Systolic CHF Restart Lasix Continue to hold losartan continue Aldacton, Coreg Start aspirin Plavix Diabetes sliding scale ordered POC, diabetic diet Peripheral Neuropathy Gabapentin Ashtma stable. DVT PPx Heparin SC
[2020-11-27] MEDS: Lidocaine HCl 1 % MPF 5 ML VIAL SUBCUT (12:44)
[2020-11-27] MEDS: Gabapentin 100 MG CAPSULE 200 MG PO ×2 (14:34→21:21)
[2020-11-27] MEDS: Dextrose 5 % and 0.9 % NaCl 1,000 ML 50 ML IVCONT (14:35)
--- NOTE | 2020-11-27 15:16 | PC.NURSE ---
pt came back from his procedure, dressing on the middle of his chest was saturated with alka red blood, with streams running down his chest. I changed bandaid dressing with a 2X2 and tape, that became saturated, changed with a 2X2 folded with a 4X4 over and 2 tegaderms, dressing in D&I. tigertexted Dr. Nath for a diet order, he ordered a diabetic diet.
[2020-11-27] MEDS: Clotrimazole 1 % Cream 15 GM TUBE 1 APPL TOPICAL ×2 (16:04→21:23)
[2020-11-27] MEDS: traMADoL HCL 50 MG TABLET PO (16:08)
[2020-11-27] MEDS: Furosemide 40 MG TABLET PO (17:34)
[2020-11-27 20:00] VITALS: BP 145/72; RESP 18; TEMP 37.7; O2SAT 99
[2020-11-27] MEDS: Fluticasone Propionate 100 MCG BLST.W.DEV 1 PUFF INHALE (21:09)
[2020-11-27 21:11] VITALS: PULSE 67; O2SAT 99
[2020-11-27] MEDS: Famotidine 20 MG TABLET PO (21:21)
[2020-11-27] MEDS: Atorvastatin Calcium 20 MG TABLET PO (21:21)
[2020-11-27] MEDS: Montelukast Sodium 10 MG TABLET PO (21:21)
[2020-11-27] MEDS: Insulin Glargine,Hum.rec.anlog 100 UNIT/ML 10 ML VIAL 8 UNIT SUBCUT (21:22)
[2020-11-27] MEDS: carvediloL 6.25 MG TABLET PO (21:22)
[2020-11-28] VITALS (8 sets, daily range): BP systolic 102–112; BP diastolic 52–65; PULSE 59–71; RESP 16–20; TEMP 35.9–37.3; O2SAT 94–100
[2020-11-28] MEDS: Piperacillin Sodium/Tazobactam 2.25 GM in 0.9 % Sodium Chloride 50 ML IV ×4 (03:42→21:18)
[2020-11-28] MEDS: 0.9 % Sodium Chloride Flush 3 ML SYRINGE IVFLUSH ×4 (03:42→21:00)
[2020-11-28] MEDS: Omeprazole 40 MG CAPSULE.DR PO (05:40)
[2020-11-28] MEDS: traMADoL HCL 50 MG TABLET PO ×2 (05:40→16:43)
[2020-11-28 07:50] LABS: Hematocrit 27.3 % (42-52); Hemoglobin 8.6 g/dl (14.0-18.0); Mean Corpuscular HGB Conc 31.5 g/dl (31.0-36.0); Mean Corpuscular Hemoglobin 25.3 pg (27.0-33.0); Mean Corpuscular Volume 80.3 fL (80-98); Mean Platelet Volume 8.5 fL (9.4-12.4); Platelet Count 291 X10*3/uL (160-400); Red Cell Distribution Width 17.1 % (11.0-16.0); White Blood Count 11.5 X10*3/uL (4.8-10.8)
[2020-11-28 08:21] LABS: Anion Gap 14 (12-20); Blood Urea Nitrogen 19 mg/dL (9-16); Calcium 8.4 mg/dL (8.4-10.2); Carbon Dioxide 28 mmol/L (22-29); Chloride 93 mmol/L (96-108); Creatinine Clr Calc Pharmacy 66.2; Estimated Glomerular Filt Rate > 60; Glucose Random 100 mg/dL (60-115); Potassium 3.7 mmol/l (3.3-5.1); Sodium 131 mmol/L (135-145)
[2020-11-28] MEDS: Spironolactone 25 MG TABLET 12.5 MG PO (10:35)
[2020-11-28] MEDS: Magnesium Oxide 400 MG TABLET PO (10:35)
[2020-11-28] MEDS: Gabapentin 100 MG CAPSULE 200 MG PO ×3 (10:35→20:59)
[2020-11-28] MEDS: Loratadine 10 MG TABLET PO (10:36)
[2020-11-28] MEDS: Tamsulosin HCL 0.4 MG CAPSULE PO (10:36)
[2020-11-28] MEDS: carvediloL 6.25 MG TABLET PO ×2 (10:36→20:59)
[2020-11-28] MEDS: Famotidine 20 MG TABLET PO (10:36)
[2020-11-28 12:34] LABS: Glucose, Whole Blood 162 mg/dL (60-115)
[2020-11-28] MEDS: Clotrimazole 1 % Cream 15 GM TUBE 1 APPL TOPICAL ×2 (14:24→21:00)
--- NOTE | 2020-11-28 14:41 | HO.PM.IMPN ---
Subjective Subjective Date of Service: 11/28/20 Interval History: the patient was seen and evaluated this morning Laying in bed, complaining of pain his chest wall and upper abdomen Left heel pain Denies any fever, chills or shortness of breath No reported other overnight events. Systemic review: No fever, chills or weakness No a palpitation , as epigastric and lower chest pain is No shortness of breath or coughing No abdominal pain, nausea or vomiting No urinary symptoms No any rash or wounds Physical Exam Vital Signs: Vital Signs: Last Vital Signs Temp 99.1 F 11/28/20 12:00 Pulse 63 11/28/20 12:00 Resp 20 11/28/20 12:00 BP 106/59 L 11/28/20 12:00 Pulse Ox 97 11/28/20 12:00 Body Mass Index 21.7 Constitutional : Alert, oriented, not in distress Neck : Normal inspection, Supple Cardiovascular : RRR, S1 S2, no lower extremity edema Respiratory : Good bilateral air entry, no crackles, wheezes or rhonchi Gastrointestinal: soft, lax, epigastric tenderness, Non tender Musculoskeletal: Right below-knee amputation Skin : Warm/Dry, left heel dry unstageable ulcer with surrounding mild erythema and tenderness, no drainage noted. Neurological : Alert & oriented x3, No focal deficit Objective Data Current Medications And can not MRI Generic Name Dose Route Start Last Admin Trade Name Freq PRN Reason Stop Dose Admin Acetaminophen 650 mg 11/24/20 10:58 11/26/20 07:59 Acetaminophen 325 Mg Tablet PO 650 mg Q6H PRN Administration Pain, Mild (Pain Scale 1-3) Albuterol Sulfate 2.5 mg 11/24/20 10:58 Albuterol Sulfate (0.083%) 2.5 Mg/3 Ml Vial.Neb INHALE Q4H PRN Shortness Of Breath Or Wheezing Albuterol Sulfate 2 puff 11/24/20 10:58 Albuterol Sulfate 90 Mcg 8 Gm Inhaler INHALE Q4H PRN Shortness Of Breath Aspirin 81 mg 11/25/20 09:00 11/27/20 10:42 Aspirin Enteric Coated 81 Mg Tablet. PO Not Given DAILY [facility] Atorvastatin Calcium 20 mg 11/24/20 21:00 11/27/20 21:21 Atorvastatin Calcium 20 Mg Tablet PO 20 mg BEDTIME [facility] Administration Carvedilol 6.25 mg 11/24/20 11:00 11/28/20 10:36 Carvedilol 6.25 Mg Tablet PO 6.25 mg BID [facility] Administration Protocol Clopidogrel Bisulfate 75 mg 11/24/20 11:00 11/27/20 10:42 Clopidogrel Bisulfate 75 Mg Tablet PO Not Given DAILY [facility] Clotrimazole 1 appl 11/24/20 15:00 11/28/20 14:24 Clotrimazole 1 % Cream 15 Gm Tube TOPICAL 1 appl TID [facility] Administration Ergocalciferol 1,250 mcg 11/29/20 10:00 Ergocalciferol (Vitamin D2) 1,250 Mcg Capsule PO Call@1000 [facility] Famotidine 20 mg 11/24/20 21:00 11/28/20 10:36 Famotidine 20 Mg Tablet PO 20 mg BID [facility] Administration Fluticasone Propionate 1 spray 11/24/20 11:00 11/28/20 10:37 Fluticasone Propionate Nasal 16 Gm [place] NOSTRIL-B Not Given DAILY [facility] Fluticasone Propionate 1 puff 11/24/20 20:00 11/28/20 07:37 Fluticasone Propionate 100 Mcg Blst.W.Dev INHALE Not Given RBID [facility] Furosemide 40 mg 11/24/20 17:00 11/27/20 17:34 Furosemide 40 Mg Tablet PO 40 mg DAILY@1700 [facility] Administration Protocol Furosemide 80 mg 11/26/20 09:00 11/27/20 10:40 Furosemide 40 Mg Tablet PO Not Given DAILY [facility] Protocol Gabapentin 200 mg 11/24/20 15:00 11/28/20 14:24 Gabapentin 100 Mg Capsule PO 200 mg TID [facility] Administration Heparin Sodium (Porcine) 5,000 unit 11/24/20 11:00 11/27/20 12:20 Heparin Sodium,Porcine 5,000 Unit/Ml Vial SUBCUT Not Given Q8H [facility] Piperacillin Sod/Tazobactam 50 mls @ 100 mls/hr 11/27/20 16:00 11/28/20 11:29 Sod 2.25 gm/ Sodium Chloride IV Infused Q6H [facility] Infusion Doxycycline Hyclate 100 mg/ 250 mls @ 166.67 mls/hr 11/28/20 19:00 Sodium Chloride IV Q12H [facility] Insulin Glargine 8 unit 11/27/20 21:00 11/27/20 21:22 Insulin Glargine,Hum.Rec.Anlog 100 Unit/Ml 10 Ml Vial SUBCUT 8 unit BEDTIME [facility] Administration Loratadine 10 mg 11/25/20 09:00 11/28/20 10:36 Loratadine 10 Mg Tablet PO 10 mg DAILY [facility] Administration Magnesium Hydroxide 30 ml 11/24/20 10:58 Milk Of Magnesia 30 Ml Oral.Susp PO DAILY PRN Constipation Magnesium Oxide 400 mg 11/25/20 09:00 11/28/20 10:35 Magnesium Oxide 400 Mg Tablet PO 400 mg DAILY [facility] Administration Methadone HCl 50 mg 11/25/20 09:00 11/28/20 10:36 Methadone Hcl 1 Mg/0.1 Ml Oral.Conc PO 50 mg DAILY [facility] Administration Montelukast Sodium 10 mg 11/24/20 21:00 11/27/20 21:21 Montelukast Sodium 10 Mg Tablet PO 10 mg BEDTIME [facility] Administration Omeprazole 40 mg 11/24/20 11:00 11/28/20 05:40 Omeprazole 40 Mg Capsule. PO 40 mg BID@2625,6700 [facility] Administration Pharmacy Consult 1 each 11/24/20 07:11 Consult Rx Vancomycin Dosing MISCELLANE DAILY PRN Consult order Pharmacy Consult 1 each 11/24/20 07:53 Consult Rx Perform Med Rec MISCELLANE ONCE PRN Consult order Polyethylene Glycol 17 gm 11/25/20 09:00 11/28/20 10:36 Polyethylene Glycol 3350 17 Gm Powd.Pack PO Not Given DAILY [facility] Senna 8.6 mg 11/24/20 10:58 Sennosides 8.6 Mg Tablet PO BEDTIME PRN Constipation Sodium Chloride 3 ml 11/24/20 16:00 11/28/20 10:34 0.9 % Sodium Chloride Flush 3 Ml Syringe IVFLUSH 3 ml QSHIFT [facility] Administration Spironolactone 12.5 mg 11/25/20 09:00 11/28/20 10:35 Spironolactone 25 Mg Tablet PO 12.5 mg DAILY [facility] Administration Protocol Tamsulosin HCl 0.4 mg 11/25/20 09:00 11/28/20 10:36 Tamsulosin Hcl 0.4 Mg Capsule PO 0.4 mg DAILY [facility] Administration Tramadol HCl 50 mg 11/24/20 10:58 11/28/20 05:40 Tramadol Hcl 50 Mg Tablet PO 50 mg BID PRN Administration Pain Labs CBC & Chem 7: 11/28/20 07:23 11/28/20 07:23 Microbiology Microbiology Results: Microbiology 11/27/20 12:19 Abscess Soft Tissue Gram Stain - Final 11/27/20 12:19 Abscess Soft Tissue Routine Culture - Preliminary No growth to date. 11/24/20 04:50 Blood - Venous Blood Culture - Preliminary No growth after 48 hours. 11/24/20 04:50 Blood - Venous Blood Culture - Preliminary No growth after 48 hours. 11/24/20 Unknown Urine clean catch - Clean Catch Midstream Urine Culture - Final No growth. MRI of left heel IMPRESSION: * Deep soft tissue wound overlying the posterior heel in region of Achilles tendon insertion. * Associated tendinosis and partial-thickness tearing of the underlying Achilles tendon. * Imaging findings of osteomyelitis involving the posterior calcaneal tuberosity (around region of Achilles insertion). No calcaneal fracture. * Old, longitudinal split tear of the peroneus brevis tendon as it courses around the fibular malleolus. * Diffuse atrophy and fatty replacement of muscles, which are hyperintense on T2-weighted images, likely sequela of chronic diabetic associated neuropathy/myopathy. Assessment and Plan (1) Acute kidney injury: Status: Acute (2) Unstageable pressure ulcer of heel: Status: Acute (3) Acute on chronic anemia: Status: Inactive (4) Diabetes mellitus, type 2: Status: Inactive (5) Hypernatremia: Status: Acute Assessment and Plan: A 50 years old male with PMH of diabetes, CHF, asthma, history substance abuse who presents to the hospital complaining of epigastric pain for the last 3 days associated with left heel ulcers and pain. Acute kidney injury Seems prerenal Creatinine improved to 1.1 Evaluated urine studies DC IV fluid Hold nephrotoxic medications Monitor intake and output Follow BMP Left heel osteomyelitis MRI showed findings of osteomyelitis involving the posterior calcaneal tuberosity Continue antibiotic of Zosyn and doxycycline To get ID evaluation Vascular surgery input appreciated, plan to do as as angiogram on Monday Peripheral vascular disease Duplex lower extremity showed severe a left lower extremity atherosclerosis disease plan to do as as angiogram on Monday Soft tissue mass Chest pain EKG not showing any new findings, no ACS Troponin trended negative CT scan of the abdomen concerning for soft tissue mass extending in our to the sternum and ribs Plan to do biopsy today Hold naproxen and NSAIDs Acute on chronic anemia Hemoglobin dropped to 9 from baseline of 12 with elevated RDW Stable hemoglobin acceptable iron stores Pending occult stool Continue omeprazole Continue to hold aspirin Plavix Monitor H&H Hyponatremia Secondary to Chaim decreased oral intake Improved to 132 Continue to monitor after IV fluids Systolic CHF Restart Lasix Continue to hold losartan continue Aldacton, Coreg Diabetes sliding scale ordered POC, diabetic diet Peripheral Neuropathy Gabapentin Ashtma stable. DVT PPx Heparin SC
--- NOTE | 2020-11-28 15:11 | PC.NURSE ---
biopsy site on mid chest dressing saturated with old blood. dressing change done, cdi
--- NOTE | 2020-11-28 16:38 | PM.EVENT ---
Event Note Date of Service: 11/28/20 Event Note: GI Consult-Hx via patient with a medical supply technician, the EMR, Dr. Nath, and his RN Imp: His anemia seems most c/w that of anemia of chronic disease with an elevated ferritin and normal iron saturation in relation to his ongoing medical issues. He denies any specific GI issues at the present time and there has been no report of GI bleeding. Therefore, I would not recommend any GI endoscopic evaluations at this time. Rec:I changed omeprazole to QD to empirically treat any silent gastritis/PUD and occult GI bleeding in relation to his aspirin and Plavix. I stopped his H2-cass. I think he can continue the aspirin and Plavix as needed as long as there is no obvious GI bleeding. I ordered B12 and Folate levels for the AM. If he develops obvious GI blood loss or other GI symptoms please advise me. D/W patient. Thanks
[2020-11-28] MEDS: Furosemide 40 MG TABLET PO (16:43)
--- NOTE | 2020-11-28 17:58 | CONS_ITS ---
DATE OF SERVICE: 11/28/2020 REFERRING PHYSICIAN: Joesph Nath MD REASON FOR CONSULTATION: Anemia. HISTORY OF PRESENT ILLNESS: This has been obtained from the patient, the medical record, Dr. Nath, his nurse, and the medical record. A director medical affairs was used as well. The patient is a 50-year-old male, admitted here in November 24 for treatment of infection of the left heel that underwent surgical debridement by Dr. Vaughn. He also had some renal failure on admission. Since having been here, he has developed anemia, but without obvious signs of GI bleeding. His hemoglobin in September of 2020 was 14.0. Hemoglobin on admission in November 24 was 9.5 with MCV of 81. Since admission, his hemoglobin dropped to 8.6 today. There has been no report of hematochezia nor melena. The patient is on chronic aspirin and Plavix. Other pertinent labs from November 24 revealed an iron of 45, TIBC 197, iron saturation 23%, and ferritin of 827. The patient had been on H2 blockers at home, but is currently on omeprazole in the hospital. He apparently has been eating comfortably and denies any significant heartburn nor dysphagia. He denies any nausea nor vomiting. He does have occasional epigastric discomfort, but not on a chronic basis. He reports his bowel movements have been brown and fairly regular. He has noticed rare episodes of bright red blood on the toilet paper. He denies any bright red blood in the toilet bowl nor any melena. He denies any history of ulcer disease. He denies any known family history of GI malignancy. MEDICATIONS: His present medications include acetaminophen, albuterol inhaler, aspirin 81 mg, atorvastatin, carvedilol, clopidogrel, doxycycline, famotidine, Flonase, furosemide, gabapentin, subcu heparin, loratadine, magnesium, Singulair, methadone, morphine p.r.n., omeprazole 40 mg b.i.d., Zosyn, MiraLAX, Senokot, tamsulosin, tramadol. PAST MEDICAL HISTORY: Anemia as described above. Multiple medical problems including diabetes, CHF, asthma, and substance abuse. Chronic anemia. Bipolar disease. Enlarged prostate. Congestive heart failure. Gastroesophageal reflux. Hyperlipidemia. Neuropathy. Back surgery. Prostate surgery. Below-knee amputation. Recent debridement of left heel. SOCIAL HISTORY: He uses marijuana. He denies any drug use otherwise at the present time. He denies alcohol use. He is single. REVIEW OF SYSTEMS: CONSTITUTIONAL: He reports that he has some body aches and fatigue. CARDIAC: No chest pain. PULMONARY: No cough. No hemoptysis. GASTROINTESTINAL: As above. PHYSICAL EXAMINATION: GENERAL: The patient is alert, somewhat chronically ill appearing male, but in no distress. SKIN: Warm and dry. Anicteric sclerae. NECK: Supple without lymphadenopathy. ABDOMEN: Soft, nondistended. Normal bowel sounds. Nontender. LABORATORY DATA: As above. Sodium 131, potassium 3.7, chloride 93, CO2 of 28, BUN 19, creatinine 1.1. Iron studies as above. White blood cell count 11.5, hemoglobin 8.6, MCV 80, platelets 291,000. PT 15.5 with INR 1.3. Hemoccult specimens are pending. He did have a CAT scan of the abdomen and pelvis in September of 2020 also having soft tissue mass in the low anterior chest wall. He does have some gallstones and constipation, but no other significant intraabdominal findings. IMPRESSION: Given the patient's clinical history, I suspect his anemia is related to that of chronic disease due to his multiple medical problems including that of the recent infection. It does not appear that he is having any ongoing significant GI complaints nor any significant GI blood loss. He is on his blood thinners including the aspirin and Plavix, which might be contributing to some slow chronic blood loss from something such as gastritis. Given no particular GI symptoms otherwise and no obvious bleeding, I would recommend holding off on GI endoscopic workup at this time given all of his other medical problems. I would recommend that his omeprazole be continued, but I think just once a day dosing should be sufficient and his H2 cass can be stopped. I would check B12 and folate levels as well. I think his Plavix and aspirin can be continued if need be from a medical standpoint, and simply continue the omeprazole and observation for any blood loss that might need re-evaluation of the plan of observing him for the time being. Clearly if he does have ongoing active GI blood loss, his blood thinners would need to be stopped and we would then re-evaluate for possible endoscopic workup. However at this time, I do not think that is needed. At this point, if things remain stable, I will see him again as needed. Please contact me if he develops any signs of active GI bleeding or any other GI issues I can be of assistance with. This has been discussed with the patient with a director medical affairs. Thank you for this consultation. MD TUSHAR Olvera/LISA / [phone]
[2020-11-28] MEDS: Doxycycline Hyclate 100 MG in 0.9 % Sodium Chloride 250 ML 166.67 MG IV (18:11)
[2020-11-28 20:51] LABS: Glucose, Whole Blood 175 mg/dL (60-115)
[2020-11-28] MEDS: Atorvastatin Calcium 20 MG TABLET PO (20:59)
[2020-11-28] MEDS: Insulin Glargine,Hum.rec.anlog 100 UNIT/ML 10 ML VIAL 8 UNIT SUBCUT (20:59)
[2020-11-28] MEDS: Montelukast Sodium 10 MG TABLET PO (20:59)
[2020-11-28] MEDS: Sennosides 8.6 MG TABLET PO (21:02)
--- NOTE | 2020-11-28 21:37 | P.CNID_ITS ---
History of Present Illness Data of Consult Service Date: 11/28/20 Requesting physician: Macy Foy Primary Care Provider: Unknown Physician HPI Reason for consult: osteomyelitis left heel He presents to hospital with discomfort left heel He has pain 7/10 for two week He has right AKA and left heel MRI osteomyelitis reported There are no organisms Review of Systems Review of Systems: Yes all other systems are reviewed and are negative PMFSH Past Medical History Medical History (Updated 12/10/20 @ 00:00 by Background Connie) Acute on chronic anemia Acute on chronic combined systolic and diastolic congestive heart failure Asthma Bipolar 1 disorder BPH (benign prostatic hyperplasia) Chest pain Cholelithiasis Congestive cardiac failure COPD (chronic obstructive pulmonary disease) Diabetes mellitus, type 2 GERD (gastroesophageal reflux disease) Hyperlipidemia Peripheral arterial disease Peripheral neuropathy Substance abuse Family History Family History Father Chronic mental illness Hypertension Asthma Stroke Mother Asthma Diabetes Coronary artery disease Family history: reviewed and not pertinent Surgical History Surgical History History of amputation History of laminectomy History of transurethral resection of prostate Hx of BKA Social History Social History Household Members: None Alcohol intake: never Smoking Status: Never smoker Second Hand Smoke Exposure: No Substance Use Type: Marijuana service: No Current occupational status: disabled Meds Allergies Allergy/AdvReac Type Severity Reaction Status Date / Time vancomycin [VANCOMYCIN] Allergy Intermediate HIVES Verified 10/04/20 06:49 Chocolate Allergy Unknown Rash Verified 10/04/20 06:49 ciprofloxacin [From CIPRO] Allergy Unknown SWELLING Verified 10/04/20 06:49 ertapenem Allergy Unknown Hives Verified 10/04/20 06:49 hydrocortisone [Cipro HC] Allergy Unknown Unknown Verified 10/04/20 06:49 sulfamethoxazole Allergy Unknown rash Verified 10/04/20 06:49 [From BACTRIM] trimethoprim [From BACTRIM] Allergy Unknown rash Verified 10/04/20 06:49 turkey [TURKEY] Allergy Unknown RASH Verified 10/04/20 06:49 From INVANZ Allergy Intermediate HIVES Uncoded 10/04/20 06:49 choclate Allergy Unknown rash Uncoded 10/04/20 06:49 Home Medications Medication Instructions Recorded Confirmed Type FreeStyle Lite Strips 08/12/20 08/12/20 History albuterol sulfate 2 puff INHALATION Q4H PRN 08/12/20 11/24/20 History albuterol sulfate 2.5 mg INHALATION Q4H PRN 08/12/20 11/24/20 History blood-glucose meter [FreeStyle 08/12/20 08/12/20 History [place] Lite] cane 08/12/20 08/12/20 History famotidine [Pepcid] 20 mg PO BID 08/12/20 11/24/20 History lancets 08/12/20 08/12/20 History magnesium oxide [MagOx] 400 mg PO DAILY 08/12/20 11/24/20 History methadone 50 mg PO QAM 08/12/20 09/05/20 History pen needle, diabetic 08/12/20 08/12/20 History Eucerin 1 applic TOPICAL DAILY PRN 08/14/20 11/24/20 History Lantus U-100 Insulin 12 unit SUBCUT QPM 08/14/20 11/24/20 History aspirin 81 mg PO DAILY 08/14/20 11/24/20 History atorvastatin 20 mg PO BEDTIME 08/14/20 11/24/20 History carvedilol 6.25 mg PO BID 08/14/20 11/24/20 History cetirizine 10 mg PO DAILY 08/14/20 11/24/20 History clopidogrel 75 mg PO DAILY 08/14/20 11/24/20 History clotrimazole 1 applic TOPICAL TID 08/14/20 11/24/20 History ergocalciferol (vitamin D2) 1,250 mcg PO QWEEK 08/14/20 11/24/20 History fluticasone propionate [Flonase 1 spray INTRANASAL DAILY 08/14/20 11/24/20 History Allergy Relief] gabapentin 200 mg PO TID 08/14/20 11/24/20 History insulin lispro 5 unit SUBCUT TIDAC 08/14/20 11/24/20 History montelukast 10 mg PO BEDTIME 08/14/20 11/24/20 History polyethylene glycol 3350 [Miralax] 17 g PO DAILY 08/14/20 11/24/20 History sennosides [senna] 8.6 mg PO BEDTIME PRN 08/14/20 11/24/20 History spironolactone 12.5 mg PO DAILY 08/14/20 11/24/20 History tamsulosin 0.4 mg PO DAILY 08/14/20 11/24/20 History zinc sulfate 220 mg PO DAILY 08/14/20 11/24/20 History Narcan 4 mg INTRANASAL Q3M PRN 11/24/20 11/24/20 History fluticasone propionate 1 puff INHALATION BID 11/24/20 11/24/20 History tramadol 50 mg PO BID PRN 11/24/20 11/24/20 History Physical Exam Vital Signs: Vital Signs: Last Vital Signs Temp 97.1 F 11/28/20 19:59 Pulse 65 11/28/20 20:59 Resp 16 11/28/20 19:59 BP 102/55 L 11/28/20 20:59 Pulse Ox 94 11/28/20 19:59 Body Mass Index 21.7 Const: General: cooperative HENMT: Head: Yes normal to inspection Mouth: moist mucous membranes Eyes: General: appearance normal, both eyes and all related structures Resp: Effort & Inspection: normal respiratory effort Cardio: Rate: regular rate Rhythm: regular rhythm GI: Palpation (GI): Soft to palpation and nontender Skin: General skin exam: no rashes or lesions noted Extrem: Other: right AKA,left heel abraded area one cm Assessment and Plan (1) Unstageable pressure ulcer of heel: Qualifiers: Laterality: left Qualified Code(s): L89.620 - Pressure ulcer of left heel, unstageable Status: Acute Would consider trial Daptomycin due to hives Vancomycin would watch carefully. Continue Doxycycline and Zosyn until cultures identified (2) Acute kidney injury: Status: Resolved Results Labs CBC & Chem 7: 12/02/20 09:54 12/01/20 05:47 Labs: Short CBC 11/28/20 Range/Units 07:23 WBC 11.5 H (4.8-10.8) X10*3/uL Hgb 8.6 L (14.0-18.0) g/dl Hct 27.3 L (42-52) % Plt Count 291 (160-400) X10*3/uL BMP 11/28/20 07:23 Sodium 131 L Potassium 3.7 Chloride 93 L Carbon Dioxide 28 BUN 19 H Creatinine 1.13 Calcium 8.4 Microbiology Microbiology Results: Microbiology 11/27/20 12:19 Abscess Soft Tissue Gram Stain - Final 11/27/20 12:19 Abscess Soft Tissue Routine Culture - Preliminary No growth to date. 11/24/20 04:50 Blood - Venous Blood Culture - Preliminary No growth after 48 hours. 11/24/20 04:50 Blood - Venous Blood Culture - Preliminary No growth after 48 hours. 11/24/20 Unknown Urine clean catch - Clean Catch Midstream Urine Culture - Final No growth.
[2020-11-29] VITALS (9 sets, daily range): BP systolic 99–112; BP diastolic 53–68; PULSE 56–65; RESP 16–20; TEMP 35.7–36.6; O2SAT 96–98
[2020-11-29] MEDS: Piperacillin Sodium/Tazobactam 2.25 GM in 0.9 % Sodium Chloride 50 ML IV ×4 (03:35→22:04)
[2020-11-29] MEDS: traMADoL HCL 50 MG TABLET PO (03:36)
[2020-11-29] MEDS: Omeprazole 40 MG CAPSULE.DR PO (05:40)
[2020-11-29] MEDS: Doxycycline Hyclate 100 MG in 0.9 % Sodium Chloride 250 ML 166.67 MG IV ×2 (06:22→18:06)
[2020-11-29 06:24] LABS: Hematocrit 29.3 % (42-52); Hemoglobin 9.2 g/dl (14.0-18.0); Mean Corpuscular HGB Conc 31.4 g/dl (31.0-36.0); Mean Corpuscular Hemoglobin 25.5 pg (27.0-33.0); Mean Corpuscular Volume 81.2 fL (80-98); Mean Platelet Volume 8.6 fL (9.4-12.4); Platelet Count 298 X10*3/uL (160-400); Red Blood Count 3.61 X10*6/uL (4.60-5.80); Red Cell Distribution Width 17.1 % (11.0-16.0); White Blood Count 11.2 X10*3/uL (4.8-10.8)
[2020-11-29 07:37] LABS: Glucose, Whole Blood 93 mg/dL (60-115)
--- NOTE | 2020-11-29 07:37 | P.PNVS_ITS ---
Subjective Subjective Date of Service: 11/29/20 Patient reports: no new complaints and feels better Interval history: pt with nonhealing left heel ulceer. s/p MRI. Now for f/u. Physical Exam Vital Signs: Vital Signs: Last Vital Signs Temp 97.9 F 11/29/20 02:47 Pulse 65 11/29/20 02:47 Resp 16 11/29/20 02:47 BP 112/59 L 11/29/20 02:47 Pulse Ox 96 11/29/20 02:47 Body Mass Index 21.7 Const: General: cooperative, healthy appearing and no acute distress Orientation/consciousness: oriented to person, oriented to place and oriented to time HENMT: Head: Yes normal to inspection Neck: Carotids: no bruits Chest: Chest palpation & inspection: normal inspection of the chest Resp: Effort & Inspection: normal respiratory effort and able to speak in complete sentences Auscultation: clear to auscultation bilaterally Cardio: Rate: regular rate Heart sounds: S1 normal heart sound present and S2 normal heart sound present GI: Inspection: Yes normal to inspection Skin: General skin exam: no rashes or lesions noted Wounds: wounds noted (left heel - dry) Neuro: General: oriented to person, oriented to place, oriented to time and CN's II-XI intact bilaterally Extrem: General: Yes normal to inspection, Yes full ROM and Yes no clubbing, cyanosis or edema Psych: Appearance: grossly normal and well kempt Speech and movement: Normal speech and movement present Affect: normal affect Progress Note: A&P Assessment and plan (1) Peripheral arterial disease: Status: Acute Assessment and Plan: Patient notes nonhealing left heel ulcer. I have discussed the pathophysiology of peripheral vascular disease with the patient. I have also discussed risk factor modification. I have reviewed the patient's arterial testing which reveals left SFA and tibial disease. the patient would benefit from a left leg endovascular peripheral angiogram with possible angioplasty, stent, and/or atherectomy. This has been discussed in detail with the patient along with risks, benefits, and complications. This includes but is not limited to bleeding, infection, heart attack, need for emergent surgical repair, limb ischemia, blood vessel damage, bleeding, puncture, kidney injury, bruising, allergic reaction, and skin reaction. The patient demonstrates a clear understanding. We will schedule for the next appropriate time. Thank you for allowing us to assist in this patient's care. Fall Risk Details Current Medications: Current Medications Generic Name Dose Route Start Last Admin Trade Name Frenorma PRN Reason Stop Dose Admin Acetaminophen 650 mg 11/24/20 10:58 11/26/20 07:59 Acetaminophen 325 Mg Tablet PO 650 mg Q6H PRN Administration Pain, Mild (Pain Scale 1-3) Albuterol Sulfate 2.5 mg 11/24/20 10:58 Albuterol Sulfate (0.083%) 2.5 Mg/3 Ml Vial.Neb INHALE Q4H PRN Shortness Of Breath Or Wheezing Albuterol Sulfate 2 puff 11/24/20 10:58 Albuterol Sulfate 90 Mcg 8 Gm Inhaler INHALE Q4H PRN Shortness Of Breath Aspirin 81 mg 11/25/20 09:00 11/27/20 10:42 Aspirin Enteric Coated 81 Mg Tablet.Dr PO Not Given DAILY [facility] Atorvastatin Calcium 20 mg 11/24/20 21:00 11/28/20 20:59 Atorvastatin Calcium 20 Mg Tablet PO 20 mg BEDTIME [facility] Administration Carvedilol 6.25 mg 11/24/20 11:00 11/28/20 20:59 Carvedilol 6.25 Mg Tablet PO 6.25 mg BID [facility] Administration Protocol Clopidogrel Bisulfate 75 mg 11/24/20 11:00 11/27/20 10:42 Clopidogrel Bisulfate 75 Mg Tablet PO Not Given DAILY [facility] Clotrimazole 1 appl 11/24/20 15:00 11/28/20 21:00 Clotrimazole 1 % Cream 15 Gm Tube TOPICAL 1 appl TID [facility] Administration Ergocalciferol 1,250 mcg 11/29/20 10:00 Ergocalciferol (Vitamin D2) 1,250 Mcg Capsule PO Call@1000 [facility] Fluticasone Propionate 1 spray 11/24/20 11:00 11/28/20 10:37 Fluticasone Propionate Nasal 16 Gm [place] NOSTRIL-B Not Given DAILY [facility] Furosemide 40 mg 11/24/20 17:00 11/28/20 16:43 Furosemide 40 Mg Tablet PO 40 mg DAILY@1700 [facility] Administration Protocol Furosemide 80 mg 11/26/20 09:00 11/27/20 10:40 Furosemide 40 Mg Tablet PO Not Given DAILY [facility] Protocol Gabapentin 200 mg 11/24/20 15:00 11/28/20 20:59 Gabapentin 100 Mg Capsule PO 200 mg TID [facility] Administration Heparin Sodium (Porcine) 5,000 unit 11/24/20 11:00 11/27/20 12:20 Heparin Sodium,Porcine 5,000 Unit/Ml Vial SUBCUT Not Given Q8H [facility] Piperacillin Sod/Tazobactam 50 mls @ 100 mls/hr 11/27/20 16:00 11/29/20 04:12 Sod 2.25 gm/ Sodium Chloride IV Infused Q6H [facility] Infusion Doxycycline Hyclate 100 mg/ 250 mls @ 166.67 mls/hr 11/28/20 19:00 11/29/20 06:22 Sodium Chloride IV 166.67 mls/hr Q12H [facility] Administration Insulin Glargine 8 unit 11/27/20 21:00 11/28/20 20:59 Insulin Glargine,Hum.Rec.Anlog 100 Unit/Ml 10 Ml Vial SUBCUT 8 unit BEDTIME [facility] Administration Loratadine 10 mg 11/25/20 09:00 11/28/20 10:36 Loratadine 10 Mg Tablet PO 10 mg DAILY [facility] Administration Magnesium Hydroxide 30 ml 11/24/20 10:58 Milk Of Magnesia 30 Ml Oral.Susp PO DAILY PRN Constipation Magnesium Oxide 400 mg 11/25/20 09:00 11/28/20 10:35 Magnesium Oxide 400 Mg Tablet PO 400 mg DAILY [facility] Administration Methadone HCl 50 mg 11/25/20 09:00 11/28/20 10:36 Methadone Hcl 1 Mg/0.1 Ml Oral.Conc PO 50 mg DAILY [facility] Administration Montelukast Sodium 10 mg 11/24/20 21:00 11/28/20 20:59 Montelukast Sodium 10 Mg Tablet PO 10 mg BEDTIME [facility] Administration Omeprazole 40 mg 11/29/20 06:30 11/29/20 05:40 Omeprazole 40 Mg Capsule.Dr PO 40 mg DAILY@0630 [facility] Administration Pharmacy Consult 1 each 11/24/20 07:11 Consult Rx Vancomycin Dosing MISCELLANE DAILY PRN Consult order Pharmacy Consult 1 each 11/24/20 07:53 Consult Rx Perform Med Rec MISCELLANE ONCE PRN Consult order Polyethylene Glycol 17 gm 11/25/20 09:00 11/28/20 10:36 Polyethylene Glycol 3350 17 Gm Powd.Pack PO Not Given DAILY [facility] Senna 8.6 mg 11/24/20 10:58 11/28/20 21:02 Sennosides 8.6 Mg Tablet PO 8.6 mg BEDTIME PRN Administration Constipation Sodium Chloride 3 ml 11/24/20 16:00 11/28/20 21:00 0.9 % Sodium Chloride Flush 3 Ml Syringe IVFLUSH 3 ml QSHIFT [facility] Administration Spironolactone 12.5 mg 11/25/20 09:00 11/28/20 10:35 Spironolactone 25 Mg Tablet PO 12.5 mg DAILY [facility] Administration Protocol Tamsulosin HCl 0.4 mg 11/25/20 09:00 11/28/20 10:36 Tamsulosin Hcl 0.4 Mg Capsule PO 0.4 mg DAILY [facility] Administration Tramadol HCl 50 mg 11/24/20 10:58 11/29/20 03:36 Tramadol Hcl 50 Mg Tablet PO 50 mg BID PRN Administration Pain Time Spent With Patient Time: Total time spent is greater than 50% in coordination of care (as documented) at patient's floor/unit and/or counseling patient: Time with patient: 15 - 24 minutes
[2020-11-29] MEDS: Spironolactone 25 MG TABLET 12.5 MG PO (10:02)
[2020-11-29] MEDS: Aspirin Enteric Coated 81 MG TABLET.DR PO (10:03)
[2020-11-29] MEDS: Tamsulosin HCL 0.4 MG CAPSULE PO (10:03)
[2020-11-29] MEDS: carvediloL 6.25 MG TABLET PO (10:03)
[2020-11-29] MEDS: Gabapentin 100 MG CAPSULE 200 MG PO ×3 (10:03→20:30)
[2020-11-29] MEDS: Magnesium Oxide 400 MG TABLET PO (10:03)
[2020-11-29] MEDS: Acetaminophen 325 MG TABLET 650 MG PO (10:04)
[2020-11-29] MEDS: Loratadine 10 MG TABLET PO (10:04)
[2020-11-29] MEDS: Clopidogrel Bisulfate 75 MG TABLET PO (10:04)
[2020-11-29] MEDS: Furosemide 40 MG TABLET PO ×2 (10:04→16:25)
[2020-11-29] MEDS: Clotrimazole 1 % Cream 15 GM TUBE 1 APPL TOPICAL ×3 (10:05→22:04)
[2020-11-29] MEDS: Ergocalciferol (Vitamin D2) 1,250 MCG CAPSULE 1250 MCG PO (11:10)
--- NOTE | 2020-11-29 11:24 | P.PNIM_ITS ---
Subjective Subjective Date of Service: 11/29/20 Interval History: The patient was seen and evaluated this morning Laying in bed, still has epigastric and left heel pain Denies any fever, chills or shortness of breath No reported other overnight events. Systemic review: No fever, chills or weakness No a palpitation , as epigastric and lower chest pain is No shortness of breath or coughing No abdominal pain, nausea or vomiting No urinary symptoms No any rash or wounds Physical Exam Vital Signs: Vital Signs: Last Vital Signs Temp 96.3 F L 11/29/20 07:42 Pulse 63 11/29/20 10:03 Resp 18 11/29/20 07:42 BP 102/53 L 11/29/20 10:03 Pulse Ox 96 11/29/20 07:42 Body Mass Index 21.7 Const: Other: Constitutional : Alert, oriented, not in distress Neck : Normal inspection, Supple Cardiovascular : RRR, S1 S2, no lower extremity edema Respiratory : Good bilateral air entry, no crackles, wheezes or rhonchi Gastrointestinal: soft, lax, epigastric tenderness, Non tender Musculoskeletal: Right below-knee amputation Skin : Warm/Dry, left heel dry unstageable ulcer with surrounding mild erythema and tenderness, no drainage noted. Neurological : Alert & oriented x3, No focal deficit Objective Data Current Medications Generic Name Dose Route Start Last Admin Trade Name Joshq PRN Reason Stop Dose Admin Acetaminophen 650 mg 11/24/20 10:58 11/29/20 10:04 Acetaminophen 325 Mg Tablet PO 650 mg Q6H PRN Administration Pain, Mild (Pain Scale 1-3) Albuterol Sulfate 2.5 mg 11/24/20 10:58 Albuterol Sulfate (0.083%) 2.5 Mg/3 Ml Vial.Neb INHALE Q4H PRN Shortness Of Breath Or Wheezing Albuterol Sulfate 2 puff 11/24/20 10:58 Albuterol Sulfate 90 Mcg 8 Gm Inhaler INHALE Q4H PRN Shortness Of Breath Aspirin 81 mg 11/25/20 09:00 11/29/20 10:03 Aspirin Enteric Coated 81 Mg Tablet.Dr PO 81 mg DAILY [facility] Administration Atorvastatin Calcium 20 mg 11/24/20 21:00 11/28/20 20:59 Atorvastatin Calcium 20 Mg Tablet PO 20 mg BEDTIME [facility] Administration Carvedilol 6.25 mg 11/24/20 11:00 11/29/20 10:03 Carvedilol 6.25 Mg Tablet PO 6.25 mg BID [facility] Administration Protocol Clopidogrel Bisulfate 75 mg 11/24/20 11:00 11/29/20 10:04 Clopidogrel Bisulfate 75 Mg Tablet PO 75 mg DAILY [facility] Administration Clotrimazole 1 appl 11/24/20 15:00 11/29/20 10:05 Clotrimazole 1 % Cream 15 Gm Tube TOPICAL 1 appl TID [facility] Administration Ergocalciferol 1,250 mcg 11/29/20 10:00 11/29/20 11:10 Ergocalciferol (Vitamin D2) 1,250 Mcg Capsule PO 1,250 mcg Call@1000 [facility] Administration Fluticasone Propionate 1 spray 11/24/20 11:00 11/29/20 10:06 Fluticasone Propionate Nasal 16 Gm [place] NOSTRIL-B Not Given DAILY [facility] Furosemide 40 mg 11/24/20 17:00 11/28/20 16:43 Furosemide 40 Mg Tablet PO 40 mg DAILY@1700 [facility] Administration Protocol Furosemide 40 mg 11/29/20 09:00 11/29/20 10:04 Furosemide 40 Mg Tablet PO 40 mg DAILY [facility] Administration Protocol Gabapentin 200 mg 11/24/20 15:00 11/29/20 10:03 Gabapentin 100 Mg Capsule PO 200 mg TID [facility] Administration Heparin Sodium (Porcine) 5,000 unit 11/24/20 11:00 11/29/20 10:02 Heparin Sodium,Porcine 5,000 Unit/Ml Vial SUBCUT Not Given Q8H [facility] Piperacillin Sod/Tazobactam 50 mls @ 100 mls/hr 11/27/20 16:00 11/29/20 11:10 Sod 2.25 gm/ Sodium Chloride IV 100 mls/hr Q6H [facility] Administration Doxycycline Hyclate 100 mg/ 250 mls @ 166.67 mls/hr 11/28/20 19:00 11/29/20 08:14 Sodium Chloride IV Infused Q12H [facility] Infusion Insulin Glargine 8 unit 11/27/20 21:00 11/28/20 20:59 Insulin Glargine,Hum.Rec.Anlog 100 Unit/Ml 10 Ml Vial SUBCUT 8 unit BEDTIME [facility] Administration Loratadine 10 mg 11/25/20 09:00 11/29/20 10:04 Loratadine 10 Mg Tablet PO 10 mg DAILY [facility] Administration Magnesium Hydroxide 30 ml 11/24/20 10:58 Milk Of Magnesia 30 Ml Oral.Susp PO DAILY PRN Constipation Magnesium Oxide 400 mg 11/25/20 09:00 11/29/20 10:03 Magnesium Oxide 400 Mg Tablet PO 400 mg DAILY [facility] Administration Methadone HCl 50 mg 11/25/20 09:00 11/29/20 10:01 Methadone Hcl 1 Mg/0.1 Ml Oral.Conc PO 50 mg DAILY [facility] Administration Montelukast Sodium 10 mg 11/24/20 21:00 11/28/20 20:59 Montelukast Sodium 10 Mg Tablet PO 10 mg BEDTIME [facility] Administration Omeprazole 40 mg 11/29/20 06:30 11/29/20 05:40 Omeprazole 40 Mg Capsule.Dr PO 40 mg DAILY@0630 [facility] Administration Pharmacy Consult 1 each 11/24/20 07:11 Consult Rx Vancomycin Dosing MISCELLANE DAILY PRN Consult order Pharmacy Consult 1 each 11/24/20 07:53 Consult Rx Perform Med Rec MISCELLANE ONCE PRN Consult order Polyethylene Glycol 17 gm 11/25/20 09:00 11/29/20 10:01 Polyethylene Glycol 3350 17 Gm Powd.Pack PO Not Given DAILY [facility] Senna 8.6 mg 11/24/20 10:58 11/28/20 21:02 Sennosides 8.6 Mg Tablet PO 8.6 mg BEDTIME PRN Administration Constipation Sodium Chloride 3 ml 11/24/20 16:00 11/29/20 10:01 0.9 % Sodium Chloride Flush 3 Ml Syringe IVFLUSH Not Given QSHIFT [facility] Spironolactone 12.5 mg 11/25/20 09:00 11/29/20 10:02 Spironolactone 25 Mg Tablet PO 12.5 mg DAILY [facility] Administration Protocol Tamsulosin HCl 0.4 mg 11/25/20 09:00 11/29/20 10:03 Tamsulosin Hcl 0.4 Mg Capsule PO 0.4 mg DAILY [facility] Administration Tramadol HCl 50 mg 11/24/20 10:58 11/29/20 03:36 Tramadol Hcl 50 Mg Tablet PO 50 mg BID PRN Administration Pain Labs CBC & Chem 7: 11/29/20 05:52 11/28/20 07:23 Microbiology Microbiology Results: Microbiology 11/27/20 12:19 Abscess Soft Tissue Gram Stain - Final 11/27/20 12:19 Abscess Soft Tissue Routine Culture - Final No growth after 2 days 11/24/20 04:50 Blood - Venous Blood Culture - Final No growth after 5 days. 11/24/20 04:50 Blood - Venous Blood Culture - Final No growth after 5 days. 11/24/20 Unknown Urine clean catch - Clean Catch Midstream Urine Culture - Final No growth. Assessment and Plan (1) Acute kidney injury: Status: Acute (2) Unstageable pressure ulcer of heel: Status: Acute (3) Acute on chronic anemia: Status: Inactive (4) Diabetes mellitus, type 2: Status: Inactive (5) Hypernatremia: Status: Acute Assessment and Plan: A 50 years old male with PMH of diabetes, CHF, asthma, history substance abuse who presents to the hospital complaining of epigastric pain for the last 3 days associated with left heel ulcers and pain. Left heel osteomyelitis MRI showed findings of osteomyelitis involving the posterior calcaneal tuberosity Continue antibiotic of Zosyn and doxycycline ID evaluation appreciated, consider daptomycin at time of discharge will continue the same for now Vascular surgery input appreciated, plan to do as as angiogram tomorrow Keep NPO over midnight Peripheral vascular disease Duplex lower extremity showed severe a left lower extremity atherosclerosis disease plan to do as as angiogram tomorrow Acute kidney injury resolved, Cr 1.1 DC IV fluid Hold nephrotoxic medications Soft tissue mass Chest pain EKG not showing any new findings, no ACS Troponin trended negative CT scan of the abdomen concerning for soft tissue mass extending in our to the sternum and ribs Pending biopsy result Acute on chronic anemia Hemoglobin dropped to 9 from baseline of 12 with elevated RDW Stable hemoglobin acceptable iron stores Pending occult stool Continue omeprazole Continue aspirin Plavix GI input appreciated, no intervention needed Monitor H&H Hyponatremia Secondary to Chaim decreased oral intake Improved to 132 Continue to monitor after IV fluids Systolic CHF Continue Lasix Continue to hold losartan continue Aldacton, Coreg Diabetes sliding scale ordered POC, diabetic diet Peripheral Neuropathy Gabapentin Ashtma stable. DVT PPx Heparin SC
[2020-11-29 12:02] LABS: Glucose, Whole Blood 120 mg/dL (60-115)
[2020-11-29] MEDS: Morphine Sulfate 2 MG/ML CARTRIDGE 1 MG IVPUSH (14:24)
[2020-11-29] MEDS: 0.9 % Sodium Chloride Flush 3 ML SYRINGE IVFLUSH ×2 (16:26→20:36)
[2020-11-29 16:57] LABS: Glucose, Whole Blood 113 mg/dL (60-115)
[2020-11-29] MEDS: Morphine Sulfate 2 MG/ML CARTRIDGE IM (20:27)
[2020-11-29 20:30] LABS: Glucose, Whole Blood 146 mg/dL (60-115)
[2020-11-29] MEDS: Montelukast Sodium 10 MG TABLET PO (20:35)
[2020-11-29] MEDS: Atorvastatin Calcium 20 MG TABLET PO (20:35)
[2020-11-29] MEDS: Insulin Glargine,Hum.rec.anlog 100 UNIT/ML 10 ML VIAL 8 UNIT SUBCUT (20:36)
[2020-11-30] VITALS (14 sets, daily range): BP systolic 98–125; BP diastolic 39–76; PULSE 54–98; RESP 14–20; TEMP 36.1–36.9; O2SAT 93–100
[2020-11-30] MEDS: Morphine Sulfate 2 MG/ML CARTRIDGE IM ×3 (02:42→21:13)
[2020-11-30] MEDS: traMADoL HCL 50 MG TABLET PO ×2 (03:53→19:45)
[2020-11-30] MEDS: Piperacillin Sodium/Tazobactam 2.25 GM in 0.9 % Sodium Chloride 50 ML IV ×4 (03:54→21:14)
[2020-11-30] MEDS: Doxycycline Hyclate 100 MG in 0.9 % Sodium Chloride 250 ML 166.67 MG IV (06:32)
[2020-11-30] MEDS: Omeprazole 40 MG CAPSULE.DR PO (06:33)
[2020-11-30 06:43] LABS: Hematocrit 27.4 % (42-52); Hemoglobin 8.6 g/dl (14.0-18.0); Mean Corpuscular HGB Conc 31.4 g/dl (31.0-36.0); Mean Corpuscular Hemoglobin 25.5 pg (27.0-33.0); Mean Corpuscular Volume 81.3 fL (80-98); Mean Platelet Volume 8.7 fL (9.4-12.4); Platelet Count 320 X10*3/uL (160-400); Red Blood Count 3.37 X10*6/uL (4.60-5.80); Red Cell Distribution Width 17.1 % (11.0-16.0); White Blood Count 11.1 X10*3/uL (4.8-10.8)
[2020-11-30 07:10] LABS: Anion Gap 13 (12-20); Blood Urea Nitrogen 23 mg/dL (9-16); Calcium 8.8 mg/dL (8.4-10.2); Carbon Dioxide 30 mmol/L (22-29); Chloride 90 mmol/L (96-108); Creatinine Clr Calc Pharmacy 56.6; Estimated Glomerular Filt Rate 57; Glucose Random 135 mg/dL (60-115); Potassium 3.4 mmol/l (3.3-5.1); Sodium 130 mmol/L (135-145)
[2020-11-30 08:31] LABS: Glucose, Whole Blood 117 mg/dL (60-115)
[2020-11-30 08:41] LABS: Folate 5.9 ng/mL (> or = 4.0); Vitamin B12 356 pg/mL (200-900)
[2020-11-30] MEDS: Loratadine 10 MG TABLET PO (08:41)
[2020-11-30] MEDS: Gabapentin 100 MG CAPSULE 200 MG PO ×2 (08:41→20:50)
[2020-11-30] MEDS: Magnesium Oxide 400 MG TABLET PO (08:41)
--- NOTE | 2020-11-30 09:44 | MHC.CM.PN ---
PATIENT UPDATES SENT TO [facility] VIA [facility]. CASE MANAGEMENT FOLLOWING.
--- NOTE | 2020-11-30 11:14 | MHC.CM.PN ---
PER HOSPITALIST ROUNDS, PATIENT IS SCHEDULED FOR ANGIOGRAM TODAY. FOLLOWING PROCEDURE, PLAN OF CARE TO BE MADE. CURRENTLY [facility] HOME WITH IV ABX [facility] SURGERY PATIENT IS ACTIVE WITH [facility].
--- NOTE | 2020-11-30 11:22 | PC.NURSE ---
pt refuses all care and assessments to be done.
[2020-11-30 11:29] LABS: Glucose, Whole Blood 88 mg/dL (60-115)
--- NOTE | 2020-11-30 12:18 | P.PNIM_ITS ---
Subjective Subjective Date of Service: 11/30/20 Interval History: The patient was seen and evaluated this morning Laying in bed, still has epigastric and left heel pain Denies any fever, chills or shortness of breath No reported other overnight events. Systemic review: No fever, chills or weakness No a palpitation , as epigastric and lower chest pain is No shortness of breath or coughing No abdominal pain, nausea or vomiting No urinary symptoms No any rash or wounds Physical Exam Vital Signs: Vital Signs: Last Vital Signs Temp 98.4 F 11/30/20 11:49 Pulse 64 11/30/20 11:49 Resp 20 11/30/20 11:49 BP 98/58 L 11/30/20 11:49 Pulse Ox 99 11/30/20 11:49 Body Mass Index 21.7 Const: Other: Constitutional : Alert, oriented, not in distress Neck : Normal inspection, Supple Cardiovascular : RRR, S1 S2, no lower extremity edema Respiratory : Good bilateral air entry, no crackles, wheezes or rhonchi Gastrointestinal: soft, lax, epigastric tenderness, Non tender Musculoskeletal: Right below-knee amputation Skin : Warm/Dry, left heel dry unstageable ulcer with surrounding mild erythema and tenderness, no drainage noted. Neurological : Alert & oriented x3, No focal deficit Objective Data Current Medications Generic Name Dose Route Start Last Admin Trade Name Freq PRN Reason Stop Dose Admin Acetaminophen 650 mg 11/24/20 10:58 11/29/20 10:04 Acetaminophen 325 Mg Tablet PO 650 mg Q6H PRN Administration Pain, Mild (Pain Scale 1-3) Albuterol Sulfate 2.5 mg 11/24/20 10:58 Albuterol Sulfate (0.083%) 2.5 Mg/3 Ml Vial.Neb INHALE Q4H PRN Shortness Of Breath Or Wheezing Albuterol Sulfate 2 puff 11/24/20 10:58 Albuterol Sulfate 90 Mcg 8 Gm Inhaler INHALE Q4H PRN Shortness Of Breath Aspirin 81 mg 11/25/20 09:00 11/29/20 10:03 Aspirin Enteric Coated 81 Mg Tablet.Dr PO 81 mg DAILY [facility] Administration Atorvastatin Calcium 20 mg 11/24/20 21:00 11/29/20 20:35 Atorvastatin Calcium 20 Mg Tablet PO 20 mg BEDTIME [facility] Administration Carvedilol 6.25 mg 11/24/20 11:00 11/30/20 08:40 Carvedilol 6.25 Mg Tablet PO Not Given BID [facility] Protocol Clopidogrel Bisulfate 75 mg 11/24/20 11:00 11/30/20 08:41 Clopidogrel Bisulfate 75 Mg Tablet PO Not Given DAILY [facility] Clotrimazole 1 appl 11/24/20 15:00 11/29/20 22:04 Clotrimazole 1 % Cream 15 Gm Tube TOPICAL 1 appl TID [facility] Administration Ergocalciferol 1,250 mcg 11/29/20 10:00 11/29/20 11:10 Ergocalciferol (Vitamin D2) 1,250 Mcg Capsule PO 1,250 mcg Call@1000 [facility] Administration Fluticasone Propionate 1 spray 11/24/20 11:00 11/29/20 10:06 Fluticasone Propionate Nasal 16 Gm [place] NOSTRIL-B Not Given DAILY [facility] Furosemide 40 mg 11/24/20 17:00 11/29/20 16:25 Furosemide 40 Mg Tablet PO 40 mg DAILY@1700 [facility] Administration Protocol Furosemide 40 mg 11/29/20 09:00 11/30/20 08:41 Furosemide 40 Mg Tablet PO Not Given DAILY [facility] Protocol Gabapentin 200 mg 11/24/20 15:00 11/30/20 08:41 Gabapentin 100 Mg Capsule PO 200 mg TID [facility] Administration Heparin Sodium (Porcine) 5,000 unit 11/24/20 11:00 11/30/20 03:20 Heparin Sodium,Porcine 5,000 Unit/Ml Vial SUBCUT Not Given Q8H [facility] Piperacillin Sod/Tazobactam 50 mls @ 100 mls/hr 11/27/20 16:00 11/30/20 08:51 Sod 2.25 gm/ Sodium Chloride IV 100 mls/hr Q6H [facility] Administration Doxycycline Hyclate 100 mg/ 250 mls @ 166.67 mls/hr 11/28/20 19:00 11/30/20 08:46 Sodium Chloride IV Infused Q12H [facility] Infusion Insulin Glargine 8 unit 11/27/20 21:00 11/29/20 20:36 Insulin Glargine,Hum.Rec.Anlog 100 Unit/Ml 10 Ml Vial SUBCUT 8 unit BEDTIME [facility] Administration Loratadine 10 mg 11/25/20 09:00 11/30/20 08:41 Loratadine 10 Mg Tablet PO 10 mg DAILY [facility] Administration Magnesium Hydroxide 30 ml 11/24/20 10:58 Milk Of Magnesia 30 Ml Oral.Susp PO DAILY PRN Constipation Magnesium Oxide 400 mg 11/25/20 09:00 11/30/20 08:41 Magnesium Oxide 400 Mg Tablet PO 400 mg DAILY [facility] Administration Methadone HCl 50 mg 11/25/20 09:00 11/30/20 08:42 Methadone Hcl 1 Mg/0.1 Ml Oral.Conc PO 50 mg DAILY [facility] Administration Montelukast Sodium 10 mg 11/24/20 21:00 11/29/20 20:35 Montelukast Sodium 10 Mg Tablet PO 10 mg BEDTIME [facility] Administration Morphine Sulfate 2 mg 11/29/20 20:07 11/30/20 08:42 Morphine Sulfate 2 Mg/Ml Cartridge IM 2 mg Q4H PRN Administration pain Omeprazole 40 mg 11/29/20 06:30 11/30/20 06:33 Omeprazole 40 Mg Capsule. PO 40 mg DAILY@0630 [facility] Administration Pharmacy Consult 1 each 11/24/20 07:11 Consult Rx Vancomycin Dosing MISCELLANE DAILY PRN Consult order Pharmacy Consult 1 each 11/24/20 07:53 Consult Rx Perform Med Rec MISCELLANE ONCE PRN Consult order Polyethylene Glycol 17 gm 11/25/20 09:00 11/29/20 10:01 Polyethylene Glycol 3350 17 Gm Powd.Pack PO Not Given DAILY [facility] Senna 8.6 mg 11/24/20 10:58 11/28/20 21:02 Sennosides 8.6 Mg Tablet PO 8.6 mg BEDTIME [facility]N Administration Constipation Sodium Chloride 3 ml 11/24/20 16:00 11/30/20 07:28 0.9 % Sodium Chloride Flush 3 Ml Syringe IVFLUSH Not Given QSHIFT [facility] Spironolactone 12.5 mg 11/25/20 09:00 11/29/20 10:02 Spironolactone 25 Mg Tablet PO 12.5 mg DAILY [facility] Administration Protocol Tamsulosin HCl 0.4 mg 11/25/20 09:00 11/29/20 10:03 Tamsulosin Hcl 0.4 Mg Capsule PO 0.4 mg DAILY [facility] Administration Tramadol HCl 50 mg 11/24/20 10:58 11/30/20 03:53 Tramadol Hcl 50 Mg Tablet PO 50 mg BID PRN Administration Pain Labs CBC & Chem 7: 11/30/20 06:02 11/30/20 06:02 Microbiology Microbiology Results: Microbiology 11/27/20 12:19 Abscess Soft Tissue Gram Stain - Final 11/27/20 12:19 Abscess Soft Tissue Routine Culture - Final No growth after 2 days 11/24/20 04:50 Blood - Venous Blood Culture - Final No growth after 5 days. 11/24/20 04:50 Blood - Venous Blood Culture - Final No growth after 5 days. 11/24/20 Unknown Urine clean catch - Clean Catch Midstream Urine Culture - Final No growth. Assessment and Plan (1) Acute kidney injury: Status: Acute (2) Unstageable pressure ulcer of heel: Status: Acute (3) Acute on chronic anemia: Status: Inactive (4) Diabetes mellitus, type 2: Status: Inactive (5) Hypernatremia: Status: Acute Assessment and Plan: A 50 years old male with PMH of diabetes, CHF, asthma, history substance abuse who presents to the hospital complaining of epigastric pain for the last 3 days associated with left heel ulcers and pain. Left heel osteomyelitis MRI showed findings of osteomyelitis involving the posterior calcaneal tuberosity Continue antibiotic of Zosyn and doxycycline ID evaluation appreciated, consider daptomycin at time of discharge will continue the same for now Vascular surgery input appreciated, plan to do as as angiogram tomorrow To discuss plan with Vascular and ID after angiogram.. Peripheral vascular disease Duplex lower extremity showed severe a left lower extremity atherosclerosis jeremy ram plan to do as as angiogram today Acute kidney injury resolved, Cr 1.1 DC IV fluid Hold nephrotoxic medications Soft tissue mass Chest pain Doesnt seem cardiac CT scan of the abdomen concerning for soft tissue mass extending in our to the sternum and ribs Pending biopsy result Acute on chronic anemia Hemoglobin dropped to 9 from baseline of 12 with elevated RDW Stable hemoglobin acceptable iron stores Pending occult stool Continue omeprazole Continue aspirin Plavix GI input appreciated, no intervention needed Monitor H&H Hyponatremia Secondary to Chaim decreased oral intake Improved to 130-132 Monitor BMP Systolic CHF Continue Lasix Continue to hold losartan continue Aldacton, Coreg Diabetes sliding scale ordered POC, diabetic diet Peripheral Neuropathy Gabapentin Ashtma stable. DVT PPx Heparin SC
--- NOTE | 2020-11-30 13:48 | MHC.CM.PN ---
Addendum entered by Tamia Chris 11/30/20 13:57: [facility] FOLLOWING Original Note: NURSE SENIOR PHP SOFTWARE DEVELOPER NOTE ELECTRONIC MEDICAL RECORD REVIEWED ALONG WITH CASE DISCUSSED WITH STAFF NURSE AND ON MULTIPLE DISCIPLINARY ROUNDS, PHYSICAL THERAPY IS RECOMMENDING SHORT TERM REHAB [facility] IS INTERESTED BUT NO BED TODAY , ( ALSO NO BEDS- AVAILABLE AT [facility], [place] , [facility], [facility]
--- NOTE | 2020-11-30 13:58 | MHC.CM.PN ---
NURSE HEMODIALYSIS LAB TECHNICIAN NOTE ELECTRONIC MEDICAL RECORD REVIEWED ALONG WITH CASE DISCUSSED WITH STAFF NURSE AND ON MULTIPLE DISCIPLINARY ROUNDS, PHYSICAL THERAPY IS RECOMMENDING SHORT TERM REHAB [facility] IS INTERESTED BUT NO BED TODAY , [facility], [facility] FOLLOWING( ALSO NO BEDS- AVAILABLE AT [facility], [facility], [place], , [facility], [facility] and [facility] reviewing Initialized on 11/30/20 13:48 - END OF NOTE
[2020-11-30] MEDS: iohexoL 300 MG/ML 100 ML INFUS..BTL IV (16:38)
[2020-11-30] MEDS: Lidocaine HCl 1 % MPF 5 ML VIAL 10 ML SUBCUT (16:39)
[2020-11-30] MEDS: Aspirin Enteric Coated 81 MG TABLET.DR PO (18:28)
[2020-11-30] MEDS: Furosemide 40 MG TABLET PO (18:34)
[2020-11-30] MEDS: Doxycycline Hyclate 100 MG in 0.9 % Sodium Chloride 250 ML 250 MG IV (19:32)
[2020-11-30 20:16] LABS: Glucose, Whole Blood 125 mg/dL (60-115)
--- NOTE | 2020-11-30 20:24 | OP_ITS ---
SURGEON: Stan Vaughn MD INDICATIONS: Dominik is a 50-year-old gentleman with a nonhealing left heel ulceration. He now presents for endovascular intervention. Risks, benefits, and complications were discussed in detail with the patient. The patient understood and consented. PREOPERATIVE DIAGNOSIS: Atherosclerosis with nonhealing left heel ulceration. POSTOPERATIVE DIAGNOSIS: Atherosclerosis with nonhealing left heel ulceration. PROCEDURE PERFORMED: ESTIMATED BLOOD LOSS: Minimal. COMPLICATIONS: ANESTHESIA: Local with moderate conscious sedation performed by ri for a total of 76 minutes. ASSISTANTS: SPECIMENS: None. PROCEDURES PERFORMED: 1. Ultrasound-guided right common femoral access. 2. Aortogram with left lower extremity runoff. 3. Angioplasty of peroneal artery. 4. Angioplasty of left anterior tibial artery. 5. Angioplasty of left popliteal/SFA. DESCRIPTION OF PROCEDURE: The patient was taken to the operating room prior to which a time-out was called for patient identification and site verification. Bilateral groins were prepped and draped in standard surgical fashion. Under ultrasound guidance, right common femoral was accessed with micropuncture needle, wire, subsequently 4-Zambian sheath flush catheter was brought up to the level of the aorta. Aortogram was then undertaken, brought back down to the level of the aortic bifurcation. Iliacs were subsequently imaged, brought up and over to the left side and the left lower extremity was subsequently imaged through the SFA. Once this was done, a Glidewire Advantage was advanced down through the SFA into the anterior tibial and peroneal. Once this was accomplished, we took multiple orthogonal views. I was able to advance an 0.014 wire into the peroneal artery. Then, this was plastied with a 2.5 x 80 chocolate balloon with multiple insufflations. We then withdrew the wire and placed it down the anterior tibial artery and we were able to plasty this with a 2.5 x 80 balloon. Once this was accomplished, then we exchanged out for a 0.035 wire and we then plastied the popliteal into the SFA with a 5 x 120 chocolate balloon. This required 2 subsequent insufflations and then we had some residual stenosis. This was then subsequently plastied with a drug coated 5 x 250 balloon, this was once again the left popliteal into the distal SFA. This was brought into position in under 3 minutes and insufflated for a total of 3 minutes in duration. Once this was accomplished, completion angiogram was undertaken. Catheter, wire, sheath were then removed and StarClose closure device was then deployed. The patient tolerated the procedure well, returned to Recovery with stable vitals. INTERPRETATION OF FILMS: 1. Aortogram demonstrated normal-caliber aorta, good flow down to the iliacs. 2. Left lower extremity study demonstrated good flow down to the profunda and proximal SFA, mid to distal SFA had moderate stenosis. Popliteal, behind the popliteal had high-grade stenosis. Main runoff was peroneal and anterior tibial, posterior tibial was totally occluded. Postprocedure angiogram demonstrated excellent flow through the entire SFA and popliteal anterior tibial had good flow through the proximal portion, more distal, it became a little bit more tenuous, but there was flow all the way down to the foot. The peroneal had excellent flow down to the foot. There was a partial arch and all the way down toward the ankle, there was a collateral that filled the peroneal artery as well. That was only visible towards the ankle area. CONCLUSION: 1. Successful angiogram. 2. Successful angioplasty of left popliteal, anterior tibial, peroneal arteries. The patient did have a drug-coated balloon and will require minimum of 6 months of aspirin and Plavix. DRAINS: None. MD GONZÁLEZ Shah/LISA / [id number]
[2020-11-30] MEDS: carvediloL 6.25 MG TABLET PO (20:52)
[2020-11-30] MEDS: Montelukast Sodium 10 MG TABLET PO (20:53)
[2020-11-30] MEDS: Insulin Glargine,Hum.rec.anlog 100 UNIT/ML 10 ML VIAL 8 UNIT SUBCUT (20:53)
[2020-11-30] MEDS: 0.9 % Sodium Chloride Flush 3 ML SYRINGE IVFLUSH (20:55)
[2020-11-30] MEDS: Atorvastatin Calcium 20 MG TABLET PO (20:58)
[2020-12-01] VITALS (8 sets, daily range): BP systolic 103–129; BP diastolic 49–75; PULSE 60–75; RESP 16–18; TEMP 36.2–37; O2SAT 98–100
[2020-12-01] MEDS: Piperacillin Sodium/Tazobactam 2.25 GM in 0.9 % Sodium Chloride 50 ML IV ×4 (03:58→22:07)
[2020-12-01] MEDS: traMADoL HCL 50 MG TABLET PO ×2 (04:05→19:47)
[2020-12-01] MEDS: Morphine Sulfate 2 MG/ML CARTRIDGE IM (06:15)
[2020-12-01] MEDS: Omeprazole 40 MG CAPSULE.DR PO (06:15)
[2020-12-01 06:46] LABS: Anion Gap 14 (12-20); Blood Urea Nitrogen 19 mg/dL (9-16); Calcium 8.4 mg/dL (8.4-10.2); Carbon Dioxide 26 mmol/L (22-29); Chloride 95 mmol/L (96-108); Creatinine Clr Calc Pharmacy 77.9; Estimated Glomerular Filt Rate > 60; Glucose Random 69 mg/dL (60-115); Potassium 3.6 mmol/l (3.3-5.1); Sodium 131 mmol/L (135-145)
[2020-12-01] MEDS: Doxycycline Hyclate 100 MG in 0.9 % Sodium Chloride 250 ML 166.67 MG IV (07:19)
[2020-12-01] MEDS: 0.9 % Sodium Chloride Flush 3 ML SYRINGE IVFLUSH ×3 (07:19→23:35)
[2020-12-01 08:08] LABS: Glucose, Whole Blood 119 mg/dL (60-115)
[2020-12-01] MEDS: Magnesium Oxide 400 MG TABLET PO (09:17)
[2020-12-01] MEDS: Gabapentin 100 MG CAPSULE 200 MG PO ×3 (09:17→21:46)
[2020-12-01] MEDS: carvediloL 6.25 MG TABLET PO ×2 (09:17→21:58)
[2020-12-01] MEDS: Aspirin Enteric Coated 81 MG TABLET.DR PO (09:18)
[2020-12-01] MEDS: Tamsulosin HCL 0.4 MG CAPSULE PO (09:18)
[2020-12-01] MEDS: Furosemide 40 MG TABLET PO (09:18)
[2020-12-01] MEDS: Spironolactone 25 MG TABLET 12.5 MG PO (09:18)
[2020-12-01] MEDS: Loratadine 10 MG TABLET PO (09:18)
[2020-12-01] MEDS: Clopidogrel Bisulfate 75 MG TABLET PO (09:18)
--- NOTE | 2020-12-01 11:27 | HO.VASCPN ---
Subjective Subjective Date of Service: 12/01/20 Patient reports: no new complaints and feels better Interval history: Patient is postop day 1 status post angioplasty of left peroneal anterior tibial and popliteal arteries. He has done extremely well postprocedure. He notes that his leg does feel better. He continues to have a nonhealing left heel ulcer. Of note it is a dry eschar. He now presents for postprocedure follow-up. Physical Exam Vital Signs: Vital Signs: Last Vital Signs Temp 97.5 F 12/01/20 07:29 Pulse 62 12/01/20 07:29 Resp 18 12/01/20 07:29 BP 111/61 12/01/20 07:29 Pulse Ox 100 12/01/20 07:29 Body Mass Index 21.7 Const: General: cooperative, healthy appearing and no acute distress Orientation/consciousness: oriented to person, oriented to place and oriented to time HENMT: Head: Yes normal to inspection Neck: Carotids: no bruits Chest: Chest palpation & inspection: normal inspection of the chest Resp: Effort & Inspection: normal respiratory effort and able to speak in complete sentences Auscultation: clear to auscultation bilaterally Cardio: Rate: regular rate Heart sounds: S1 normal heart sound present and S2 normal heart sound present Peripheral pulses: dorsalis pedis present on the left (Dorsalis pedis signal triphasic) GI: Inspection: Yes normal to inspection Skin: General skin exam: no rashes or lesions noted Wounds: wounds noted (Left heel ulcer dressing was changed) Neuro: General: oriented to person, oriented to place, oriented to time and CN's II-XI intact bilaterally Extrem: General: Yes normal to inspection, Yes full ROM and Yes no clubbing, cyanosis or edema Psych: Appearance: grossly normal and well kempt Speech and movement: Normal speech and movement present Affect: normal affect Progress Note: A&P Assessment and plan (1) Peripheral arterial disease: Status: Acute Assessment and Plan: Patient has done extremely well status post endovascular intervention. He can follow up with me in approximately 2 weeks upon discharge. He will need to be maintained on aspirin and Plavix for a minimum of 6 months due to the use of a drug coated balloon. In addition I would recommend [facility] as he does have a dry eschar on the left heel. As his circulation improves I do feel that this might improve. He is stable from my perspective for discharge. Thank you for allowing us to assist in his care. In terms of wound care would recommend a dry protective dressing: Kerlix wrap to be changed every other day. Fall Risk Details Current Medications: Current Medications Generic Name Dose Route Start Last Admin Trade Name Freq PRN Reason Stop Dose Admin Acetaminophen 650 mg 11/24/20 10:58 11/29/20 10:04 Acetaminophen 325 Mg Tablet PO 650 mg Q6H PRN Administration Pain, Mild (Pain Scale 1-3) Albuterol Sulfate 2.5 mg 11/24/20 10:58 Albuterol Sulfate (0.083%) 2.5 Mg/3 Ml Vial.Neb INHALE Q4H PRN Shortness Of Breath Or Wheezing Albuterol Sulfate 2 puff 11/24/20 10:58 Albuterol Sulfate 90 Mcg 8 Gm Inhaler INHALE Q4H PRN Shortness Of Breath Aspirin 81 mg 11/25/20 09:00 12/01/20 09:18 Aspirin Enteric Coated 81 Mg Tablet. PO 81 mg DAILY [facility] Administration Atorvastatin Calcium 20 mg 11/24/20 21:00 11/30/20 20:58 Atorvastatin Calcium 20 Mg Tablet PO 20 mg BEDTIME [facility] Administration Carvedilol 6.25 mg 11/24/20 11:00 12/01/20 09:17 Carvedilol 6.25 Mg Tablet PO 6.25 mg BID [facility] Administration Protocol Clopidogrel Bisulfate 75 mg 11/24/20 11:00 12/01/20 09:18 Clopidogrel Bisulfate 75 Mg Tablet PO 75 mg DAILY [facility] Administration Clotrimazole 1 appl 11/24/20 15:00 12/01/20 10:20 Clotrimazole 1 % Cream 15 Gm Tube TOPICAL Not Given TID [facility] Ergocalciferol 1,250 mcg 11/29/20 10:00 11/29/20 11:10 Ergocalciferol (Vitamin D2) 1,250 Mcg Capsule PO 1,250 mcg Call@1000 [facility] Administration Fluticasone Propionate 1 spray 11/24/20 11:00 12/01/20 10:20 Fluticasone Propionate Nasal 16 Gm [place] NOSTRIL-B Not Given DAILY [facility] Furosemide 40 mg 11/24/20 17:00 11/30/20 18:34 Furosemide 40 Mg Tablet PO 40 mg DAILY@1700 [facility] Administration Protocol Furosemide 40 mg 11/29/20 09:00 12/01/20 09:18 Furosemide 40 Mg Tablet PO 40 mg DAILY [facility] Administration Protocol Gabapentin 200 mg 11/24/20 15:00 12/01/20 09:17 Gabapentin 100 Mg Capsule PO 200 mg TID [facility] Administration Heparin Sodium (Porcine) 5,000 unit 11/24/20 11:00 12/01/20 09:33 Heparin Sodium,Porcine 5,000 Unit/Ml Vial SUBCUT Not Given Q8H [facility] Piperacillin Sod/Tazobactam 50 mls @ 100 mls/hr 11/27/20 16:00 12/01/20 10:13 Sod 2.25 gm/ Sodium Chloride IV Infused Q6H [facility] Infusion Doxycycline Hyclate 100 mg/ 250 mls @ 166.67 mls/hr 11/28/20 19:00 12/01/20 09:00 Sodium Chloride IV Infused Q12H [facility] Infusion Insulin Glargine 8 unit 11/27/20 21:00 11/30/20 20:53 Insulin Glargine,Hum.Rec.Anlog 100 Unit/Ml 10 Ml Vial SUBCUT 8 unit BEDTIME [facility] Administration Loratadine 10 mg 11/25/20 09:00 12/01/20 09:18 Loratadine 10 Mg Tablet PO 10 mg DAILY [facility] Administration Magnesium Hydroxide 30 ml 11/24/20 10:58 Milk Of Magnesia 30 Ml Oral.Susp PO DAILY PRN Constipation Magnesium Oxide 400 mg 11/25/20 09:00 12/01/20 09:17 Magnesium Oxide 400 Mg Tablet PO 400 mg DAILY [facility] Administration Methadone HCl 50 mg 11/25/20 09:00 12/01/20 09:16 Methadone Hcl 1 Mg/0.1 Ml Oral.Conc PO 50 mg DAILY [facility] Administration Montelukast Sodium 10 mg 11/24/20 21:00 11/30/20 20:53 Montelukast Sodium 10 Mg Tablet PO 10 mg BEDTIME [facility] Administration Morphine Sulfate 2 mg 12/01/20 09:23 Morphine Sulfate 2 Mg/Ml Cartridge IVPUSH Q4H PRN pain Omeprazole 40 mg 11/29/20 06:30 12/01/20 06:15 Omeprazole 40 Mg Capsule. PO 40 mg DAILY@0630 [facility] Administration Pharmacy Consult 1 each 11/24/20 07:53 Consult Rx Perform Med Rec MISCELLANE ONCE PRN Consult order Polyethylene Glycol 17 gm 11/25/20 09:00 12/01/20 09:33 Polyethylene Glycol 3350 17 Gm Powd.Pack PO Not Given DAILY [facility] Senna 8.6 mg 11/24/20 10:58 11/28/20 21:02 Sennosides 8.6 Mg Tablet PO 8.6 mg BEDTIME PRN Administration Constipation Sodium Chloride 3 ml 11/24/20 16:00 12/01/20 07:19 0.9 % Sodium Chloride Flush 3 Ml Syringe IVFLUSH 3 ml QSHIFT [facility] Administration Spironolactone 12.5 mg 11/25/20 09:00 12/01/20 09:18 Spironolactone 25 Mg Tablet PO 12.5 mg DAILY [facility] Administration Protocol Tamsulosin HCl 0.4 mg 11/25/20 09:00 12/01/20 09:18 Tamsulosin Hcl 0.4 Mg Capsule PO 0.4 mg DAILY [facility] Administration Tramadol HCl 50 mg 11/24/20 10:58 12/01/20 04:05 Tramadol Hcl 50 Mg Tablet PO 50 mg BID PRN Administration Pain Time Spent With Patient Time: Total time spent is greater than 50% in coordination of care (as documented) at patient's floor/unit and/or counseling patient: Time with patient: 15 - 24 minutes
[2020-12-01 12:06] LABS: Glucose, Whole Blood 198 mg/dL (60-115)
--- NOTE | 2020-12-01 13:26 | P.PNIM_ITS ---
Subjective Subjective Date of Service: 12/02/20 Interval History: Patient being followed for left heel osteomyelitis, patient complaining of pain, talking in full sentences without grimacing feels methadone is not taking care of his pain, denies nausea, no vomiting, no other acute issues overnight. Review of Systems General no headache, no dizziness, no fever chills. CVS no chest pain, no palpitation. Respiratory no cough, no shortness of breath Gastrointestinal no nausea, no vomiting, no abdominal pain Musculoskeletal left heel pain Physical Exam Vital Signs: Vital Signs: Last Vital Signs Temp 98.6 F 12/01/20 11:28 Pulse 63 12/01/20 11:28 Resp 18 12/01/20 11:28 BP 118/55 L 12/01/20 11:28 Pulse Ox 98 12/01/20 11:28 Body Mass Index 21.7 Const: Other: General no acute distress. Neck supple no JVD. CVS regular rate rhythm, Right anterior chest, no tenderness no redness, dressing at site of biopsy removed, no drainage noted, no redness. Respiratory lungs clear to auscultation, no respiratory distress Gastrointestinal abdomen soft, nontender, bowel sounds audible Extremities right below-knee amputation, left heal wound with dry eschar, no drainage Neuro nonfocal , speech clear. Skin no rash Objective Data Current Medications Generic Name Dose Route Start Last Admin Trade Name Joshq PRN Reason Stop Dose Admin Acetaminophen 650 mg 11/24/20 10:58 11/29/20 10:04 Acetaminophen 325 Mg Tablet PO 650 mg Q6H PRN Administration Pain, Mild (Pain Scale 1-3) Albuterol Sulfate 2.5 mg 11/24/20 10:58 Albuterol Sulfate (0.083%) 2.5 Mg/3 Ml Vial.Neb INHALE Q4H PRN Shortness Of Breath Or Wheezing Albuterol Sulfate 2 puff 11/24/20 10:58 Albuterol Sulfate 90 Mcg 8 Gm Inhaler INHALE Q4H PRN Shortness Of Breath Aspirin 81 mg 11/25/20 09:00 12/01/20 09:18 Aspirin Enteric Coated 81 Mg Tablet. PO 81 mg DAILY [facility] Administration Atorvastatin Calcium 20 mg 11/24/20 21:00 11/30/20 20:58 Atorvastatin Calcium 20 Mg Tablet PO 20 mg BEDTIME [facility] Administration Carvedilol 6.25 mg 11/24/20 11:00 12/01/20 09:17 Carvedilol 6.25 Mg Tablet PO 6.25 mg BID [facility] Administration Protocol Clopidogrel Bisulfate 75 mg 11/24/20 11:00 12/01/20 09:18 Clopidogrel Bisulfate 75 Mg Tablet PO 75 mg DAILY [facility] Administration Clotrimazole 1 appl 11/24/20 15:00 12/01/20 10:20 Clotrimazole 1 % Cream 15 Gm Tube TOPICAL Not Given TID [facility] Ergocalciferol 1,250 mcg 11/29/20 10:00 11/29/20 11:10 Ergocalciferol (Vitamin D2) 1,250 Mcg Capsule PO 1,250 mcg Call@1000 [facility] Administration Fluticasone Propionate 1 spray 11/24/20 11:00 12/01/20 10:20 Fluticasone Propionate Nasal 16 Gm [place] NOSTRIL-B Not Given DAILY [facility] Furosemide 40 mg 11/24/20 17:00 11/30/20 18:34 Furosemide 40 Mg Tablet PO 40 mg DAILY@1700 [facility] Administration Protocol Furosemide 40 mg 11/29/20 09:00 12/01/20 09:18 Furosemide 40 Mg Tablet PO 40 mg DAILY [facility] Administration Protocol Gabapentin 200 mg 11/24/20 15:00 12/01/20 09:17 Gabapentin 100 Mg Capsule PO 200 mg TID [facility] Administration Heparin Sodium (Porcine) 5,000 unit 11/24/20 11:00 12/01/20 09:33 Heparin Sodium,Porcine 5,000 Unit/Ml Vial SUBCUT Not Given Q8H [facility] Piperacillin Sod/Tazobactam 50 mls @ 100 mls/hr 11/27/20 16:00 12/01/20 10:13 Sod 2.25 gm/ Sodium Chloride IV Infused Q6H [facility] Infusion Doxycycline Hyclate 100 mg/ 250 mls @ 166.67 mls/hr 11/28/20 19:00 12/01/20 09:00 Sodium Chloride IV Infused Q12H [facility] Infusion Insulin Glargine 8 unit 11/27/20 21:00 11/30/20 20:53 Insulin Glargine,Hum.Rec.Anlog 100 Unit/Ml 10 Ml Vial SUBCUT 8 unit BEDTIME [facility] Administration Loratadine 10 mg 11/25/20 09:00 12/01/20 09:18 Loratadine 10 Mg Tablet PO 10 mg DAILY [facility] Administration Magnesium Hydroxide 30 ml 11/24/20 10:58 Milk Of Magnesia 30 Ml Oral.Susp PO DAILY PRN Constipation Magnesium Oxide 400 mg 11/25/20 09:00 12/01/20 09:17 Magnesium Oxide 400 Mg Tablet PO 400 mg DAILY [facility] Administration Methadone HCl 50 mg 11/25/20 09:00 12/01/20 09:16 Methadone Hcl 1 Mg/0.1 Ml Oral.Conc PO 50 mg DAILY [facility] Administration Montelukast Sodium 10 mg 11/24/20 21:00 11/30/20 20:53 Montelukast Sodium 10 Mg Tablet PO 10 mg BEDTIME [facility] Administration Morphine Sulfate 2 mg 12/01/20 09:23 Morphine Sulfate 2 Mg/Ml Cartridge IVPUSH Q4H PRN pain Omeprazole 40 mg 11/29/20 06:30 12/01/20 06:15 Omeprazole 40 Mg Capsule. PO 40 mg DAILY@0630 [facility] Administration Pharmacy Consult 1 each 11/24/20 07:53 Consult Rx Perform Med Rec MISCELLANE ONCE PRN Consult order Polyethylene Glycol 17 gm 11/25/20 09:00 12/01/20 09:33 Polyethylene Glycol 3350 17 Gm Powd.Pack PO Not Given DAILY [facility] Senna 8.6 mg 11/24/20 10:58 11/28/20 21:02 Sennosides 8.6 Mg Tablet PO 8.6 mg BEDTIME PRN Administration Constipation Sodium Chloride 3 ml 11/24/20 16:00 12/01/20 07:19 0.9 % Sodium Chloride Flush 3 Ml Syringe IVFLUSH 3 ml QSHIFT [facility] Administration Spironolactone 12.5 mg 11/25/20 09:00 12/01/20 09:18 Spironolactone 25 Mg Tablet PO 12.5 mg DAILY [facility] Administration Protocol Tamsulosin HCl 0.4 mg 11/25/20 09:00 12/01/20 09:18 Tamsulosin Hcl 0.4 Mg Capsule PO 0.4 mg DAILY [facility] Administration Tramadol HCl 50 mg 11/24/20 10:58 12/01/20 04:05 Tramadol Hcl 50 Mg Tablet PO 50 mg BID PRN Administration Pain Labs CBC & Chem 7: 12/02/20 09:54 12/01/20 05:47 Microbiology Microbiology Results: Microbiology 11/27/20 12:19 Abscess Soft Tissue Fungal Identification - Preliminary No growth to date. 11/27/20 12:19 Abscess Soft Tissue Gram Stain - Final 11/27/20 12:19 Abscess Soft Tissue Routine Culture - Final No growth after 2 days 11/24/20 04:50 Blood - Venous Blood Culture - Final No growth after 5 days. 11/24/20 04:50 Blood - Venous Blood Culture - Final No growth after 5 days. 11/24/20 Unknown Urine clean catch - Clean Catch Midstream Urine Culture - Final No growth. Assessment and Plan (1) Peripheral arterial disease: Status: Acute (2) Hypernatremia: Status: Acute (3) Elevated troponin: Status: Acute (4) Unstageable pressure ulcer of heel: Status: Acute (5) Acute kidney injury: Status: Acute Assessment and Plan: 50 years old male with PMH of diabetes, CHF, asthma, history substance abuse who presents to the hospital complaining of epigastric pain for the last 3 days associated with left heel ulcers and pain. Left heel osteomyelitis MRI showed findings of osteomyelitis involving the posterior calcaneal tuberosity, on iv Zosyn and doxycycline ID recommended daptomycin at time of discharge , blood cultures and wound cultures remain negative, will discuss with ID regarding PICC line since patient is on methadone and further antibiotic duration. Case discussed with Dr. Vaughn patient underwent endovascular intervention with placement of stent, patient will need 2 weeks follow-up with Dr. Vaughn will continue aspirin and Plavix for minimum 6 months due to use of drug coated balloon, will recommend outpatient wound clinic follow-up due to dry eschar on left heel, he recommended Kerlix wrap to be changed every other day for dressing Peripheral vascular disease Duplex lower extremity showed severe a left lower extremity atherosclerosis disease status post endovascular intervention by Dr. Vaughn Continue aspirin and Plavix Acute kidney injury resolved, Cr 1.1, status post IV fluid, will discontinue ana since BP stable History of substance abuse currently on methadone Continue Ultram as needed for chest wall and heel pain. Right chest wall Soft tissue mass CT scan of the abdomen concerning for soft tissue mass extending to the sternum and ribs Status post ultrasound-guided fine-needle aspiration of asymmetric hypoechoic soft tissue of the right anterior chest wall, biopsy report remains pending. Acute on chronic anemia Hemoglobin dropped to 9 from baseline of 12 , hemoglobin remains stable around 9 ,acceptable iron stores Continue omeprazole,Continue aspirin and Plavix GI input appreciated, no intervention needed Monitor H&H Hyponatremia Secondary to Chaim and decreased oral intake, Sodium remains stable around 131 Monitor BMP Systolic CHF No acute exacerbation Continue Lasix, Aldactone and Coreg Continue to hold losartan due to soft BP Diabetes Blood sugars stable less than 200 continue sliding scale , POC, and diabetic diet, takes Lantus and sliding scale at home Peripheral Neuropathy continue Gabapentin Asthma stable. DVT PPx Heparin SC
--- NOTE | 2020-12-01 15:05 | MHC.CM.PN ---
CM met with Patient. ID consult is pending but should LT IVABT be necessary, Patient would likely need to go to SNF because of his substance abuse history. CM discussed snf options under this situation and [facility] CM will follow.
[2020-12-01 16:37] LABS: Glucose, Whole Blood 110 mg/dL (60-115)
[2020-12-01 21:30] LABS: Glucose, Whole Blood 140 mg/dL (60-115)
[2020-12-01] MEDS: Montelukast Sodium 10 MG TABLET PO (21:47)
[2020-12-01] MEDS: Atorvastatin Calcium 20 MG TABLET PO (21:47)
[2020-12-01] MEDS: Clotrimazole 1 % Cream 15 GM TUBE 1 APPL TOPICAL (22:01)
[2020-12-02] MEDS: Piperacillin Sodium/Tazobactam 2.25 GM in 0.9 % Sodium Chloride 50 ML IV ×2 (03:52→09:38)
[2020-12-02 03:54] VITALS: BP 128/60; PULSE 63; RESP 16; TEMP 36.1; O2SAT 100
[2020-12-02] MEDS: Omeprazole 40 MG CAPSULE.DR PO (05:55)
[2020-12-02 07:43] LABS: Glucose, Whole Blood 122 mg/dL (60-115)
[2020-12-02 08:00] VITALS: BP 140/72; PULSE 73; RESP 18; TEMP 36.1; O2SAT 100
[2020-12-02] MEDS: ondansetron HCL 4 MG/2 ML VIAL IVPUSH (08:58)
[2020-12-02] MEDS: 0.9 % Sodium Chloride Flush 3 ML SYRINGE IVFLUSH (09:02)
[2020-12-02] MEDS: Gabapentin 100 MG CAPSULE 200 MG PO ×2 (09:34→14:00)
[2020-12-02] MEDS: Clopidogrel Bisulfate 75 MG TABLET PO (09:34)
[2020-12-02] MEDS: Furosemide 40 MG TABLET PO (09:35)
[2020-12-02] MEDS: Magnesium Oxide 400 MG TABLET PO (09:35)
[2020-12-02] MEDS: carvediloL 6.25 MG TABLET PO (09:35)
[2020-12-02] MEDS: Aspirin Enteric Coated 81 MG TABLET.DR PO (09:35)
[2020-12-02] MEDS: Spironolactone 25 MG TABLET 12.5 MG PO (09:36)
[2020-12-02] MEDS: Loratadine 10 MG TABLET PO (09:36)
[2020-12-02] MEDS: Tamsulosin HCL 0.4 MG CAPSULE PO (09:36)
[2020-12-02] MEDS: Clotrimazole 1 % Cream 15 GM TUBE 1 APPL TOPICAL (09:37)
[2020-12-02 10:01] LABS: MANUAL DIFF FLAG NO
[2020-12-02 10:05] LABS: Basophils Percent Auto 0.3 % (0-2); Eosinophils Absolute Auto 0.4 X10*3/uL (0.0-0.4); Eosinophils Percent Auto 3.2 % (0-4); Hemoglobin 9.2 g/dl (14.0-18.0); Imm Gran Abs Auto 0.07 X10*3/uL (0.00-0.03); Imm Gran Pct Auto 0.6 % (0.0-0.4); Lymphocytes Absolute Auto 0.9 X10*3/uL (1.2-4.9); Lymphocytes Percent Auto 7.9 % (20-40); Mean Corpuscular HGB Conc 31.7 g/dl (31.0-36.0); Mean Corpuscular Hemoglobin 25.6 pg (27.0-33.0); Mean Corpuscular Volume 80.6 fL (80-98); Mean Platelet Volume 8.3 fL (9.4-12.4); Monocytes Absolute Auto 1.1 X10*3/uL (0.1-1.2); Monocytes Percent Auto 9.4 % (2-11); Neutrophils Absolute Auto 9.4 X10*3/uL (2.0-8.3); Neutrophils Percent Auto 78.6 % (45-73); Platelet Count 335 X10*3/uL (160-400); Red Cell Distribution Width 17.2 % (11.0-16.0); White Blood Count 11.9 X10*3/uL (4.8-10.8)
[2020-12-02 11:26] LABS: Glucose, Whole Blood 139 mg/dL (60-115)
[2020-12-02] MEDS: levoFLOXacin 500 MG TABLET PO (11:55)
[2020-12-02 12:00] VITALS: BP 116/58; PULSE 69; RESP 19; TEMP 37.1; O2SAT 97
--- NOTE | 2020-12-02 15:00 | PC.NURSE ---
Dr. Mccain asked if pharmacy could be called to see if Patient has an allergy to Cipro, I called his preferred pharmacy [facility] on [facility] and spoke to the pharmacist no Cipro allergy on file, also asked if they had every given him Levaquin, was never given Levaquin. I then called his secondary pharmacy [facility] and spoke to the pharmacist there, she stated that there is no Cipro allergy on file. I then asked if they had ever given him Levaquin they had not. Both pharmacists stated that they had given him Doxycycline. Spoke with Dr. Mccain concerning this and she is calling Dr. Roblero.
--- NOTE | 2020-12-02 15:29 | P.DS_ITS ---
DS: Providers Provider Date of Service: 12/02/20 Date of admission: 11/24/20 10:58 Primary care physician: Unknown Physician Consults: 11/24/20 10:58 Consult to General Surgery Routine Consulting Provider: [facility] [place] [facility] Reason for consultation: Left heel dry ulcer with suspected OM for your kind eval. 11/25/20 15:34 Consult to Vascular Surgery Routine Consulting Provider: Stan Vaughn Reason for consultation: Evaluation for Left heel ulcer, pending eval for OM 11/28/20 08:28 Consult to Gastroenterology Routine Consulting Provider: Derick Alvarez Reason for consultation: acute on chronic anemia, Epigastric pain, PVD on double antiplatelets 11/28/20 14:38 Consult to Infectious Diseases Routine Consulting Provider: Zully Roblero Reason for consultation: Left heel Osteomyelitis, PVD for your kind eval DS: Diagnosis Discharge Diagnosis (1) Peripheral arterial disease: Status: Acute (2) Hypernatremia: Status: Acute (3) Elevated troponin: Status: Acute (4) Unstageable pressure ulcer of heel: Status: Acute (5) Acute kidney injury: Status: Acute DS: Medications Discharge Medications Home Medications: Home Medications Medication Instructions Recorded Confirmed FreeStyle Lite Strips 08/12/20 08/12/20 albuterol sulfate 2 puff INHALATION Q4H PRN 08/12/20 11/24/20 albuterol sulfate 2.5 mg INHALATION Q4H PRN 08/12/20 11/24/20 blood-glucose meter [FreeStyle 08/12/20 08/12/20 [place] Lite] cane 08/12/20 08/12/20 famotidine [Pepcid] 20 mg PO BID 08/12/20 11/24/20 lancets 08/12/20 08/12/20 magnesium oxide [MagOx] 400 mg PO DAILY 08/12/20 11/24/20 methadone 50 mg PO QAM 08/12/20 09/05/20 pen needle, diabetic 08/12/20 08/12/20 Eucerin 1 applic TOPICAL DAILY PRN 08/14/20 11/24/20 Lantus U-100 Insulin 12 unit SUBCUT QPM 08/14/20 11/24/20 aspirin 81 mg PO DAILY 08/14/20 11/24/20 atorvastatin 20 mg PO BEDTIME 08/14/20 11/24/20 carvedilol 6.25 mg PO BID 08/14/20 11/24/20 cetirizine 10 mg PO DAILY 08/14/20 11/24/20 clopidogrel 75 mg PO DAILY 08/14/20 11/24/20 clotrimazole 1 applic TOPICAL TID 08/14/20 11/24/20 ergocalciferol (vitamin D2) 1,250 mcg PO QWEEK 08/14/20 11/24/20 fluticasone propionate [Flonase 1 spray INTRANASAL DAILY 08/14/20 11/24/20 Allergy Relief] gabapentin 200 mg PO TID 08/14/20 11/24/20 insulin lispro 5 unit SUBCUT TIDAC 08/14/20 11/24/20 montelukast 10 mg PO BEDTIME 08/14/20 11/24/20 polyethylene glycol 3350 [Miralax] 17 g PO DAILY 08/14/20 11/24/20 sennosides [senna] 8.6 mg PO BEDTIME PRN 08/14/20 11/24/20 spironolactone 12.5 mg PO DAILY 08/14/20 11/24/20 tamsulosin 0.4 mg PO DAILY 08/14/20 11/24/20 zinc sulfate 220 mg PO DAILY 08/14/20 11/24/20 Narcan 4 mg INTRANASAL Q3M PRN 11/24/20 11/24/20 fluticasone propionate 1 puff INHALATION BID 11/24/20 11/24/20 tramadol 50 mg PO BID PRN 11/24/20 11/24/20 Previous Rx's Medication Instructions Recorded furosemide 40 mg PO DAILY@1700 #30 tab 09/04/20 doxycycline hyclate 100 mg PO Q12H #76 tab 12/02/20 furosemide 40 mg PO DAILY #30 tab 12/02/20 DS: Summary Hospital Course Hospital Course: Chief Complaint: Epigastric pain, heel ulcer A 50 years old male with PMH of diabetes, CHF, asthma, history substance abuse who presents to the hospital complaining of epigastric pain for the last 3 days associated with left heel ulcers and pain. The patient reported his major concern was the epigastric pain as he was not able to eat much for the last 2 days with constant pain that get were sometimes. Denies any nausea, vomiting, change in bowel habit or dark stools. He is also complaining of left heel dry ulcer which he noted less than 1 week ago with main complain pain in the area. He noticed that it got worse over the last few days with no reported fever, chills or drainage from the area. In the emergency, an x-ray for the heel was concerning for infectious process. Will need further images to confirm osteomyelitis. Found to have acute kidney injury with creatinine increased to 2.5 with associated hyponatremia. Admitted for further evaluation and treatment. Hospital course 50 years old male with PMH of diabetes, CHF, asthma, history substance abuse who presents to the hospital complaining of epigastric pain for the last 3 days associated with left heel ulcers and pain. Left heel osteomyelitis MRI showed findings of osteomyelitis involving the posterior calcaneal tuberosity, patient treated with iv Zosyn and doxycycline, wound culture and blood cultures remained negative case discussed with Dr. Roblero she recommends total 6 weeks of doxycycline by mouth, patient underwent endovascular intervention with placement of stent, patient will need 2 weeks follow-up with Dr. Vaughn will continue aspirin and Plavix for minimum 6 months due to use of drug coated balloon, will recommend outpatient wound clinic follow-up due to dry eschar on left heel, continue Kerlix wrap dressing to left heel to be changed every other day. Patient has been strongly recommended to be compliant with his medications and his follow ups with wound clinic and vascular surgery because he is at a high risk of losing his left foot patient shows understanding of his disease and risk of amputation. Case discussed with telehealth case manager he will talk to the patient as well as VNA service. Peripheral vascular disease Duplex lower extremity showed severe a left lower extremity atherosclerosis disease status post endovascular intervention by Dr. Vaughn,Continue aspirin and Plavix strongly recommend to have outpatient follow-up with Dr. Vaughn in 2 weeks time. Acute kidney injury resolved, Cr 1.1, status post IV fluid, recommend to discontinue MELVIN-inhibitor. History of substance abuse currently on methadone Right chest wall Soft tissue mass CT scan of the abdomen showed soft tissue mass extending to the sternum and ribs, Status post ultrasound-guided fine-needle aspiration of asymmetric hypoechoic soft tissue of the right anterior chest wall, biopsy showed Acellular debris, blood and acute inflammatory cells,cell block has similar findings including a small focus of degenerated epithelioid cells without overt atypia. The findings are consistent with abscess material, flow cytometry is pending, on examination there is no evidence of infection , no tenderness, no redness, no i nduration recommend to have continued outpatient follow-up with PCP . Acute on chronic anemia hemoglobin dropped but remained stable likely due to chronic infection, seen by Gastroenterology they recommend no intervention at this time patient had no overt GI bleed Hyponatremia Secondary to Chaim and decreased oral intake, Sodium remains stable around 131 Systolic CHF No acute exacerbation Continue Lasix, Aldactone and Coreg,losartan can be resumed at low dose once BP allows Diabetes Blood sugars stable continue home medication Peripheral Neuropathy continue Gabapentin Asthma stable. Time Spent with Patient Time attestation: Total time spent providing and/or coordinating discharge services: Discharge coordination time: Greater than 30 minutes Physical Exam Vital Signs: Vital Signs: Last Vital Signs Temp 98.8 F 12/02/20 12:00 Pulse 69 12/02/20 12:00 Resp 19 12/02/20 12:00 BP 116/58 L 12/02/20 12:00 Pulse Ox 97 12/02/20 12:00 Body Mass Index 21.7 General no acute distress. Neck supple no JVD. CVS regular rate rhythm, Right anterior chest, no tenderness, no redness, site of biopsy looks clean, no drainage noted, no redness. Respiratory lungs clear to auscultation, no respiratory distress Gastrointestinal abdomen soft, nontender, bowel sounds audible Extremities right below-knee amputation, left heal wound with dry eschar, no drainage Neuro nonfocal , speech clear. Skin no rash DS: Data Data Completed and Pending Completed studies during hospitalization [Text1]: Pending at discharge 11/27/20 12:55 Cytology [PTH] Routine Procedures Drainage of Right Pleural Cavity, Percutaneous Approach (08/31/20) Transfusion of Nonautologous Red Blood Cells into Peripheral Vein, Percutaneous Approach (08/11/20) Labs on day of discharge: Laboratory Tests 11/24/20 11/24/20 11/24/20 04:50 04:50 04:50 WBC 14.7 H RBC 3.70 L D Hgb 9.5 L D Hct 29.9 L D MCV 80.8 MCH 25.7 L MCHC 31.8 RDW 17.2 H Plt Count 360 MPV 8.4 L Immature Gran % (Auto) 0.6 H Neut % (Auto) 85.0 H Lymph % (Auto) 5.4 L [place] % (Auto) 7.9 Eos % (Auto) 0.9 Baso % (Auto) 0.2 Lymph # (Auto) 0.8 L [place] # (Auto) 1.2 Eos # (Auto) 0.1 Baso # (Auto) 0.0 Abs Immat Gran (auto) 0.09 H Absolute Neuts (auto) 12.5 H Absolute Nucleated RBC 0.000 Nucleated RBC % (auto) 0.0 PT INR Sodium 130 L Potassium 4.6 Chloride 89 L Carbon Dioxide 26 Anion Gap 20 BUN 73 H D Creatinine 2.50 H Estim Creat Clear Calc 29.9 Estimated GFR 27 POC Glucose Random Glucose 80 D Lactic Acid 1.2 Calcium 9.5 Iron 45 TIBC 197 L % Saturation 23 Unsat Iron Binding 152 Ferritin 827 H Troponin I High Sens Vitamin B12 Folate Urine Color Urine Appearance Urine pH Ur Specific [place] Urine Protein Urine Glucose (UA) Urine Ketones Urine Blood Urine Nitrite Ur Leukocyte Esterase Urine RBC Urine WBC Ur Squamous Epith Cells Urine Bacteria Hyaline Casts Ur Random Sodium Ur Random Potassium Urine Creatinine Vancomycin Trough Leuk/Lymph Viability Leuk/Lym Source Leuk/Lym Sample Descrip Leuk/Lym # of Markers Leuk/Lym Markers L/L Additional Markers Leuk/Lym Gating Strategy Leuk/Lym Comment Leuk/Lym Interpretation COVID-19 (JAMILA) COVID-19 Clin Com 11/24/20 11/24/20 11/24/20 04:50 09:14 09:14 WBC RBC Hgb Hct MCV MCH MCHC RDW Plt Count MPV Immature Gran % (Auto) Neut % (Auto) Lymph % (Auto) [place] % (Auto) Eos % (Auto) Baso % (Auto) Lymph # (Auto) [place] # (Auto) Eos # (Auto) Baso # (Auto) Abs Immat Gran (auto) Absolute Neuts (auto) Absolute Nucleated RBC Nucleated RBC % (auto) PT INR Sodium Potassium Chloride Carbon Dioxide Anion Gap BUN Creatinine Estim Creat Clear Calc Estimated GFR POC Glucose Random Glucose Lactic Acid Calcium Iron TIBC % Saturation Unsat Iron Binding Ferritin Troponin I High Sens 34.8 D 27.0 Vitamin B12 Folate Urine Color Urine Appearance Urine pH Ur Specific [place] Urine Protein Urine Glucose (UA) Urine Ketones Urine Blood Urine Nitrite Ur Leukocyte Esterase Urine RBC Urine WBC Ur Squamous Epith Cells Urine Bacteria Hyaline Casts Ur Random Sodium Ur Random Potassium Urine Creatinine Vancomycin Trough Leuk/Lymph Viability Leuk/Lym Source Leuk/Lym Sample Descrip Leuk/Lym # of Markers Leuk/Lym Markers L/L Additional Markers Leuk/Lym Gating Strategy Leuk/Lym Comment Leuk/Lym Interpretation COVID-19 (JAMILA) Negative COVID-19 Clin Com See Note 11/24/20 11/24/20 11/25/20 11:51 11:51 06:11 WBC 11.9 H RBC 3.78 L Hgb 9.6 L Hct 30.3 L MCV 80.2 MCH 25.4 L MCHC 31.7 RDW 17.1 H Plt Count 331 MPV 8.7 L Immature Gran % (Auto) Neut % (Auto) Lymph % (Auto) [place] % (Auto) Eos % (Auto) Baso % (Auto) Lymph # (Auto) [place] # (Auto) Eos # (Auto) Baso # (Auto) Abs Immat Gran (auto) Absolute Neuts (auto) Absolute Nucleated RBC 0.000 Nucleated RBC % (auto) 0.0 PT INR Sodium Potassium Chloride Carbon Dioxide Anion Gap BUN Creatinine Estim Creat Clear Calc Estimated GFR POC Glucose Random Glucose Lactic Acid Calcium Iron TIBC % Saturation Unsat Iron Binding Ferritin Troponin I High Sens Vitamin B12 Folate Urine Color YELLOW Urine Appearance CLEAR Urine pH 6.0 Ur Specific [place] 1.015 Urine Protein TRACE Urine Glucose (UA) NEG Urine Ketones NEG Urine Blood NEG Urine Nitrite NEG Ur Leukocyte Esterase TRACE H Urine RBC 0 Urine WBC 1-4 Ur Squamous Epith Cells TRACE Urine Bacteria NONE Hyaline Casts 0-2 Ur Random Sodium 47.0 Ur Random Potassium 26.2 Urine Creatinine 59.80 Vancomycin Trough Leuk/Lymph Viability Leuk/Lym Source Leuk/Lym Sample Descrip Leuk/Lym # of Markers Leuk/Lym Markers L/L Additional Markers Leuk/Lym Gating Strategy Leuk/Lym Comment Leuk/Lym Interpretation COVID-19 (JAMILA) COVID-19 [facility] 11/25/20 11/25/20 11/25/20 06:11 07:52 20:26 WBC RBC Hgb Hct MCV MCH MCHC RDW Plt Count MPV Immature Gran % (Auto) Neut % (Auto) Lymph % (Auto) [place] % (Auto) Eos % (Auto) Baso % (Auto) Lymph # (Auto) [place] # (Auto) Eos # (Auto) Baso # (Auto) Abs Immat Gran (auto) Absolute Neuts (auto) Absolute Nucleated RBC Nucleated RBC % (auto) PT INR Sodium 132 L Potassium 4.2 Chloride 93 L Carbon Dioxide 26 Anion Gap 17 BUN 49 H Creatinine 1.80 H Estim Creat Clear Calc 41.5 Estimated GFR 40 POC Glucose 92 148 H Random Glucose 100 Lactic Acid Calcium 9.0 Iron TIBC % Saturation Unsat Iron Binding Ferritin Troponin I High Sens Vitamin B12 Folate Urine Color Urine Appearance Urine pH Ur Specific [place] Urine Protein Urine Glucose (UA) Urine Ketones Urine Blood Urine Nitrite Ur Leukocyte Esterase Urine RBC Urine WBC Ur Squamous Epith Cells Urine Bacteria Hyaline Casts Ur Random Sodium Ur Random Potassium Urine Creatinine Vancomycin Trough Leuk/Lymph Viability Leuk/Lym Source Leuk/Lym Sample Descrip Leuk/Lym # of Markers Leuk/Lym Markers L/L Additional Markers Leuk/Lym Gating Strategy Leuk/Lym Comment Leuk/Lym Interpretation COVID-19 (JAMILA) COVID-19 [facility] 11/26/20 11/26/20 11/26/20 05:58 07:22 08:46 WBC RBC Hgb Hct MCV MCH MCHC RDW Plt Count MPV Immature Gran % (Auto) Neut % (Auto) Lymph % (Auto) [place] % (Auto) Eos % (Auto) Baso % (Auto) Lymph # (Auto) [place] # (Auto) Eos # (Auto) Baso # (Auto) Abs Immat Gran (auto) Absolute Neuts (auto) Absolute Nucleated RBC Nucleated RBC % (auto) PT INR Sodium 129 L Potassium 3.9 Chloride 92 L Carbon Dioxide 28 Anion Gap 13 BUN 32 H Creatinine 1.45 H Estim Creat Clear Calc 51.6 Estimated GFR 51 POC Glucose 140 H 136 H Random Glucose 133 H Lactic Acid Calcium 8.5 Iron TIBC % Saturation Unsat Iron Binding Ferritin Troponin I High Sens Vitamin B12 Folate Urine Color Urine Appearance Urine pH Ur Specific [place] Urine Protein Urine Glucose (UA) Urine Ketones Urine Blood Urine Nitrite Ur Leukocyte Esterase Urine RBC Urine WBC Ur Squamous Epith Cells Urine Bacteria Hyaline Casts Ur Random Sodium Ur Random Potassium Urine Creatinine Vancomycin Trough Leuk/Lymph Viability Leuk/Lym Source Leuk/Lym Sample Descrip Leuk/Lym # of Markers Leuk/Lym Markers L/L Additional Markers Leuk/Lym Gating Strategy Leuk/Lym Comment Leuk/Lym Interpretation COVID-19 (JAMILA) COVID-19 [facility] 11/26/20 11/27/20 11/27/20 11:25 07:56 07:56 WBC RBC Hgb Hct MCV MCH MCHC RDW Plt Count MPV Immature Gran % (Auto) Neut % (Auto) Lymph % (Auto) [place] % (Auto) Eos % (Auto) Baso % (Auto) Lymph # (Auto) [place] # (Auto) Eos # (Auto) Baso # (Auto) Abs Immat Gran (auto) Absolute Neuts (auto) Absolute Nucleated RBC Nucleated RBC % (auto) PT 15.5 H INR 1.3 H Sodium Potassium Chloride Carbon Dioxide Anion Gap BUN Creatinine Estim Creat Clear Calc Estimated GFR POC Glucose 132 H Random Glucose Lactic Acid Calcium Iron TIBC % Saturation Unsat Iron Binding Ferritin Troponin I High Sens Vitamin B12 Folate Urine Color Urine Appearance Urine pH Ur Specific [place] Urine Protein Urine Glucose (UA) Urine Ketones Urine Blood Urine Nitrite Ur Leukocyte Esterase Urine RBC Urine WBC Ur Squamous Epith Cells Urine Bacteria Hyaline Casts Ur Random Sodium Ur Random Potassium Urine Creatinine Vancomycin Trough 3.6 L Leuk/Lymph Viability Leuk/Lym Source Leuk/Lym Sample Descrip Leuk/Lym # of Markers Leuk/Lym Markers L/L Additional Markers Leuk/Lym Gating Strategy Leuk/Lym Comment Leuk/Lym Interpretation COVID-19 (JAMILA) COVID-19 Clin Com 11/27/20 11/27/20 11/27/20 07:56 09:48 10:06 WBC RBC Hgb Hct MCV MCH MCHC RDW Plt Count MPV Immature Gran % (Auto) Neut % (Auto) Lymph % (Auto) [place] % (Auto) Eos % (Auto) Baso % (Auto) Lymph # (Auto) [place] # (Auto) Eos # (Auto) Baso # (Auto) Abs Immat Gran (auto) Absolute Neuts (auto) Absolute Nucleated RBC Nucleated RBC % (auto) PT INR Sodium 132 L Potassium 3.7 Chloride 95 L Carbon Dioxide 27 Anion Gap 14 BUN 20 H Creatinine 1.21 Estim Creat Clear Calc 61.8 Estimated GFR > 60 POC Glucose 59 L* 91 Random Glucose 44 L* Lactic Acid Calcium 8.7 Iron TIBC % Saturation Unsat Iron Binding Ferritin Troponin I High Sens Vitamin B12 Folate Urine Color Urine Appearance Urine pH Ur Specific [place] Urine Protein Urine Glucose (UA) Urine Ketones Urine Blood Urine Nitrite Ur Leukocyte Esterase Urine RBC Urine WBC Ur Squamous Epith Cells Urine Bacteria Hyaline Casts Ur Random Sodium Ur Random Potassium Urine Creatinine Vancomycin Trough Leuk/Lymph Viability Leuk/Lym Source Leuk/Lym Sample Descrip Leuk/Lym # of Markers Leuk/Lym Markers L/L Additional Markers Leuk/Lym Gating Strategy Leuk/Lym Comment Leuk/Lym Interpretation COVID-19 (JAMILA) COVID-19 [facility] 11/27/20 11/28/20 11/28/20 12:56 07:23 07:23 WBC 11.5 H RBC 3.40 L Hgb 8.6 L Hct 27.3 L MCV 80.3 MCH 25.3 L MCHC 31.5 RDW 17.1 H Plt Count 291 MPV 8.5 L Immature Gran % (Auto) Neut % (Auto) Lymph % (Auto) [place] % (Auto) Eos % (Auto) Baso % (Auto) Lymph # (Auto) [place] # (Auto) Eos # (Auto) Baso # (Auto) Abs Immat Gran (auto) Absolute Neuts (auto) Absolute Nucleated RBC 0.000 Nucleated RBC % (auto) 0.0 PT INR Sodium 131 L Potassium 3.7 Chloride 93 L Carbon Dioxide 28 Anion Gap 14 BUN 19 H Creatinine 1.13 Estim Creat Clear Calc 66.2 Estimated GFR > 60 POC Glucose Random Glucose 100 D Lactic Acid Calcium 8.4 Iron TIBC % Saturation Unsat Iron Binding Ferritin Troponin I High Sens Vitamin B12 Folate Urine Color Urine Appearance Urine pH Ur Specific [place] Urine Protein Urine Glucose (UA) Urine Ketones Urine Blood Urine Nitrite Ur Leukocyte Esterase Urine RBC Urine WBC Ur Squamous Epith Cells Urine Bacteria Hyaline Casts Ur Random Sodium Ur Random Potassium Urine Creatinine Vancomycin Trough Leuk/Lymph Viability Not Reportable Leuk/Lym Source Not Reportable Leuk/Lym Sample Descrip Not Reportable Leuk/Lym # of Markers Not Reportable Leuk/Lym Markers Not Reportable L/L Additional Markers Not Reportable Leuk/Lym Gating Strategy Not Reportable Leuk/Lym Comment Not Reportable Leuk/Lym Interpretation See note COVID-19 (JAMILA) COVID-19 [facility] 11/28/20 11/28/20 11/29/20 12:12 20:41 05:52 WBC 11.2 H RBC 3.61 L Hgb 9.2 L Hct 29.3 L MCV 81.2 MCH 25.5 L MCHC 31.4 RDW 17.1 H Plt Count 298 MPV 8.6 L Immature Gran % (Auto) Neut % (Auto) Lymph % (Auto) [place] % (Auto) Eos % (Auto) Baso % (Auto) Lymph # (Auto) [place] # (Auto) Eos # (Auto) Baso # (Auto) Abs Immat Gran (auto) Absolute Neuts (auto) Absolute Nucleated RBC 0.000 Nucleated RBC % (auto) 0.0 PT INR Sodium Potassium Chloride Carbon Dioxide Anion Gap BUN Creatinine Estim Creat Clear Calc Estimated GFR POC Glucose 162 H 175 H Random Glucose Lactic Acid Calcium Iron TIBC % Saturation Unsat Iron Binding Ferritin Troponin I High Sens Vitamin B12 Folate Urine Color Urine Appearance Urine pH Ur Specific [place] Urine Protein Urine Glucose (UA) Urine Ketones Urine Blood Urine Nitrite Ur Leukocyte Esterase Urine RBC Urine WBC Ur Squamous Epith Cells Urine Bacteria Hyaline Casts Ur Random Sodium Ur Random Potassium Urine Creatinine Vancomycin Trough Leuk/Lymph Viability Leuk/Lym Source Leuk/Lym Sample Descrip Leuk/Lym # of Markers Leuk/Lym Markers L/L Additional Markers Leuk/Lym Gating Strategy Leuk/Lym Comment Leuk/Lym Interpretation COVID-19 (JAMILA) COVID-19 [facility] 11/29/20 11/29/20 11/29/20 05:52 07:31 11:48 WBC RBC Hgb Hct MCV MCH MCHC RDW Plt Count MPV Immature Gran % (Auto) Neut % (Auto) Lymph % (Auto) [place] % (Auto) Eos % (Auto) Baso % (Auto) Lymph # (Auto) [place] # (Auto) Eos # (Auto) Baso # (Auto) Abs Immat Gran (auto) Absolute Neuts (auto) Absolute Nucleated RBC Nucleated RBC % (auto) PT INR Sodium Potassium Chloride Carbon Dioxide Anion Gap BUN Creatinine Estim Creat Clear Calc Estimated GFR POC Glucose 93 120 H Random Glucose Lactic Acid Calcium Iron TIBC % Saturation Unsat Iron Binding Ferritin Troponin I High Sens Vitamin B12 356 Folate 5.9 Urine Color Urine Appearance Urine pH Ur Specific [place] Urine Protein Urine Glucose (UA) Urine Ketones Urine Blood Urine Nitrite Ur Leukocyte Esterase Urine RBC Urine WBC Ur Squamous Epith Cells Urine Bacteria Hyaline Casts Ur Random Sodium Ur Random Potassium Urine Creatinine Vancomycin Trough Leuk/Lymph Viability Leuk/Lym Source Leuk/Lym Sample Descrip Leuk/Lym # of Markers Leuk/Lym Markers L/L Additional Markers Leuk/Lym Gating Strategy Leuk/Lym Comment Leuk/Lym Interpretation COVID-19 (JAMILA) COVID-19 [facility] 11/29/20 11/29/20 11/30/20 16:50 20:21 06:02 WBC 11.1 H RBC 3.37 L Hgb 8.6 L Hct 27.4 L MCV 81.3 MCH 25.5 L MCHC 31.4 RDW 17.1 H Plt Count 320 MPV 8.7 L Immature Gran % (Auto) Neut % (Auto) Lymph % (Auto) [place] % (Auto) Eos % (Auto) Baso % (Auto) Lymph # (Auto) [place] # (Auto) Eos # (Auto) Baso # (Auto) Abs Immat Gran (auto) Absolute Neuts (auto) Absolute Nucleated RBC 0.000 Nucleated RBC % (auto) 0.0 PT INR Sodium Potassium Chloride Carbon Dioxide Anion Gap BUN Creatinine Estim Creat Clear Calc Estimated GFR POC Glucose 113 146 H Random Glucose Lactic Acid Calcium Iron TIBC % Saturation Unsat Iron Binding Ferritin Troponin I High Sens Vitamin B12 Folate Urine Color Urine Appearance Urine pH Ur Specific [place] Urine Protein Urine Glucose (UA) Urine Ketones Urine Blood Urine Nitrite Ur Leukocyte Esterase Urine RBC Urine WBC Ur Squamous Epith Cells Urine Bacteria Hyaline Casts Ur Random Sodium Ur Random Potassium Urine Creatinine Vancomycin Trough Leuk/Lymph Viability Leuk/Lym Source Leuk/Lym Sample Descrip Leuk/Lym # of Markers Leuk/Lym Markers L/L Additional Markers Leuk/Lym Gating Strategy Leuk/Lym Comment Leuk/Lym Interpretation COVID-19 (JAMILA) COVID-19 Clin Com 11/30/20 11/30/20 11/30/20 06:02 08:24 11:22 WBC RBC Hgb Hct MCV MCH MCHC RDW Plt Count MPV Immature Gran % (Auto) Neut % (Auto) Lymph % (Auto) [place] % (Auto) Eos % (Auto) Baso % (Auto) Lymph # (Auto) [place] # (Auto) Eos # (Auto) Baso # (Auto) Abs Immat Gran (auto) Absolute Neuts (auto) Absolute Nucleated RBC Nucleated RBC % (auto) PT INR Sodium 130 L Potassium 3.4 Chloride 90 L Carbon Dioxide 30 H Anion Gap 13 BUN 23 H Creatinine 1.32 Estim Creat Clear Calc 56.6 Estimated GFR 57 POC Glucose 117 H 88 Random Glucose 135 H Lactic Acid Calcium 8.8 Iron TIBC % Saturation Unsat Iron Binding Ferritin Troponin I High Sens Vitamin B12 Folate Urine Color Urine Appearance Urine pH Ur Specific [place] Urine Protein Urine Glucose (UA) Urine Ketones Urine Blood Urine Nitrite Ur Leukocyte Esterase Urine RBC Urine WBC Ur Squamous Epith Cells Urine Bacteria Hyaline Casts Ur Random Sodium Ur Random Potassium Urine Creatinine Vancomycin Trough Leuk/Lymph Viability Leuk/Lym Source Leuk/Lym Sample Descrip Leuk/Lym # of Markers Leuk/Lym Markers L/L Additional Markers Leuk/Lym Gating Strategy Leuk/Lym Comment Leuk/Lym Interpretation COVID-19 (JAMILA) COVID-19 [facility] 11/30/20 12/01/20 12/01/20 20:05 05:47 07:28 WBC RBC Hgb Hct MCV MCH MCHC RDW Plt Count MPV Immature Gran % (Auto) Neut % (Auto) Lymph % (Auto) [place] % (Auto) Eos % (Auto) Baso % (Auto) Lymph # (Auto) [place] # (Auto) Eos # (Auto) Baso # (Auto) Abs Immat Gran (auto) Absolute Neuts (auto) Absolute Nucleated RBC Nucleated RBC % (auto) PT INR Sodium 131 L Potassium 3.6 Chloride 95 L Carbon Dioxide 26 Anion Gap 14 BUN 19 H Creatinine 0.96 Estim Creat Clear Calc 77.9 Estimated GFR > 60 POC Glucose 125 H 119 H Random Glucose 69 D Lactic Acid Calcium 8.4 Iron TIBC % Saturation Unsat Iron Binding Ferritin Troponin I High Sens Vitamin B12 Folate Urine Color Urine Appearance Urine pH Ur Specific [place] Urine Protein Urine Glucose (UA) Urine Ketones Urine Blood Urine Nitrite Ur Leukocyte Esterase Urine RBC Urine WBC Ur Squamous Epith Cells Urine Bacteria Hyaline Casts Ur Random Sodium Ur Random Potassium Urine Creatinine Vancomycin Trough Leuk/Lymph Viability Leuk/Lym Source Leuk/Lym Sample Descrip Leuk/Lym # of Markers Leuk/Lym Markers L/L Additional Markers Leuk/Lym Gating Strategy Leuk/Lym Comment Leuk/Lym Interpretation COVID-19 (JAMILA) COVID-19 [facility] 12/01/20 12/01/20 12/01/20 11:26 16:30 20:58 WBC RBC Hgb Hct MCV MCH MCHC RDW Plt Count MPV Immature Gran % (Auto) Neut % (Auto) Lymph % (Auto) [place] % (Auto) Eos % (Auto) Baso % (Auto) Lymph # (Auto) [place] # (Auto) Eos # (Auto) Baso # (Auto) Abs Immat Gran (auto) Absolute Neuts (auto) Absolute Nucleated RBC Nucleated RBC % (auto) PT INR Sodium Potassium Chloride Carbon Dioxide Anion Gap BUN Creatinine Estim Creat Clear Calc Estimated GFR POC Glucose 198 H 110 140 H Random Glucose Lactic Acid Calcium Iron TIBC % Saturation Unsat Iron Binding Ferritin Troponin I High Sens Vitamin B12 Folate Urine Color Urine Appearance Urine pH Ur Specific [place] Urine Protein Urine Glucose (UA) Urine Ketones Urine Blood Urine Nitrite Ur Leukocyte Esterase Urine RBC Urine WBC Ur Squamous Epith Cells Urine Bacteria Hyaline Casts Ur Random Sodium Ur Random Potassium Urine Creatinine Vancomycin Trough Leuk/Lymph Viability Leuk/Lym Source Leuk/Lym Sample Descrip Leuk/Lym # of Markers Leuk/Lym Markers L/L Additional Markers Leuk/Lym Gating Strategy Leuk/Lym Comment Leuk/Lym Interpretation COVID-19 (JAMILA) COVID-19 [employer] 12/02/20 12/02/20 12/02/20 07:40 09:54 11:10 WBC 11.9 H RBC 3.60 L Hgb 9.2 L Hct 29.0 L MCV 80.6 MCH 25.6 L MCHC 31.7 RDW 17.2 H Plt Count 335 MPV 8.3 L Immature Gran % (Auto) 0.6 H Neut % (Auto) 78.6 H Lymph % (Auto) 7.9 L [place] % (Auto) 9.4 Eos % (Auto) 3.2 Baso % (Auto) 0.3 Lymph # (Auto) 0.9 L [place] # (Auto) 1.1 Eos # (Auto) 0.4 Baso # (Auto) 0.0 Abs Immat Gran (auto) 0.07 H Absolute Neuts (auto) 9.4 H Absolute Nucleated RBC 0.000 Nucleated RBC % (auto) 0.0 PT INR Sodium Potassium Chloride Carbon Dioxide Anion Gap BUN Creatinine Estim Creat Clear Calc Estimated GFR POC Glucose 122 H 139 H Random Glucose Lactic Acid Calcium Iron TIBC % Saturation Unsat Iron Binding Ferritin Troponin I High Sens Vitamin B12 Folate Urine Color Urine Appearance Urine pH Ur Specific [place] Urine Protein Urine Glucose (UA) Urine Ketones Urine Blood Urine Nitrite Ur Leukocyte Esterase Urine RBC Urine WBC Ur Squamous Epith Cells Urine Bacteria Hyaline Casts Ur Random Sodium Ur Random Potassium Urine Creatinine Vancomycin Trough Leuk/Lymph Viability Leuk/Lym Source Leuk/Lym Sample Descrip Leuk/Lym # of Markers Leuk/Lym Markers L/L Additional Markers Leuk/Lym Gating Strategy Leuk/Lym Comment Leuk/Lym Interpretation COVID-19 (JAMILA) COVID-19 [employer] Preliminary micro results at discharge 11/27/20 12:19 Fungal Identification - Preliminary Abscess Soft Tissue No growth to date. Discharge Plan Discharge Patient Disposition: Home Health Service Referrals: [facility] [Outside] Yessy Stapleton MD [Physician] - 1 Week (Nurse will call you to discuss your hospital stay.) Physician,Unknown [Primary Care Provider] - Discharge Medications: New furosemide 40 mg Tablet 40 mg PO DAILY Qty: 30 RF: 0 doxycycline hyclate 100 mg Tablet 100 mg PO Q12H Qty: 76 RF: 0 Continued albuterol sulfate 2.5 mg /3 mL (0.083 %) Solution For Nebulization 2.5 mg inhalation Q4H PRN (Reason: Shortness Of Breath Or Wheezing) RF: 0 famotidine [Pepcid] 20 mg Tablet 20 mg PO BID RF: 0 magnesium oxide [MagOx] 400 mg (241.3 mg magnesium) Tablet 400 mg PO DAILY RF: 0 methadone 10 mg/mL Concentrate 50 mg PO QAM RF: 0 albuterol sulfate 90 mcg/actuation Hfa Aerosol Inhaler 2 puff INHALATION Q4H PRN (Reason: Shortness Of Breath) RF: 0 zinc sulfate 110 mg (25 mg zinc) Tablet 220 mg PO DAILY RF: 0 spironolactone 25 mg Tablet 12.5 mg PO DAILY RF: 0 sennosides [senna] 8.6 mg Tablet 8.6 mg PO BEDTIME PRN (Reason: Constipation) RF: 0 Lantus U-100 Insulin 100 unit/mL Solution 12 unit SUBCUT QPM RF: 0 cetirizine 10 mg Tablet 10 mg PO DAILY RF: 0 aspirin 81 mg Tablet,Delayed Release (Dr/Ec) 81 mg PO DAILY RF: 0 insulin lispro 100 unit/mL Solution 5 unit SUBCUT TIDAC RF: 0 polyethylene glycol 3350 [Miralax] 17 gram/dose Powder 17 g PO DAILY RF: 0 carvedilol 6.25 mg Tablet 6.25 mg PO BID RF: 0 atorvastatin 20 mg Tablet 20 mg PO BEDTIME RF: 0 clopidogrel 75 mg Tablet 75 mg PO DAILY RF: 0 tamsulosin 0.4 mg Capsule 0.4 mg PO DAILY RF: 0 montelukast 10 mg Tablet 10 mg PO BEDTIME RF: 0 gabapentin 100 mg Capsule 200 mg PO TID RF: 0 ergocalciferol (vitamin D2) 1,250 mcg (50,000 unit) Capsule 1,250 mcg PO QWEEK RF: 0 fluticasone propionate [Flonase Allergy Relief] 50 mcg/actuation [place],Suspension 1 spray INTRANASAL DAILY RF: 0 clotrimazole 1 % Cream 1 applic TOPICAL TID RF: 0 Eucerin Cream 1 applic TOPICAL DAILY PRN (Reason: Dry Skin) RF: 0 furosemide 40 mg Tablet 40 mg PO DAILY@1700 Qty: 30 RF: 0 tramadol 50 mg Tablet 50 mg PO BID PRN (Reason: Pain) RF: 0 fluticasone propionate 110 mcg/actuation Hfa Aerosol Inhaler 1 puff INHALATION BID RF: 0 Narcan 4 mg/actuation [place],Non-Aerosol 4 mg INTRANASAL Q3M PRN (Reason: OVER DOSE) RF: 0 Discontinued losartan 25 mg Tablet 25 mg PO DAILY RF: 0 furosemide 40 mg Tablet 80 mg PO DAILY Qty: 60 RF: 0 naproxen 500 mg Tablet 500 mg PO BID PRN (Reason: Pain) RF: 0 methadone [Methadone Intensol] 10 mg/mL Concentrate 50 mg PO DAILY RF: 0 No Action (DME) lancets Misc MISCELLANEOUS RF: 0 (DME) blood-glucose meter [FreeStyle [place] Lite] Kit MISCELLANEOUS RF: 0 (DME) cane Device MISCELLANEOUS RF: 0 (DME) FreeStyle Lite Strips RF: 0 (DME) pen needle, diabetic Needle MISCELLANEOUS RF: 0 Discharge Orders: Discharge Order (Routine); Ordered 12/02/20 Ordered By: Dinh Mccain Diet: diabetic diet Activity on Discharge: pamella gomez Stand Alone Forms: Patient Portal Discharge page Visit Report Forms: Patient Portal Discharge page Care Plan Goals: Need outpatient wound care clinic appointment take all medications as prescribed Health Concerns: Medication compliance Plan of Treatment: Follow-up with Wound Clinic, follow-up with Dr. Vaughn and primary care physician take medications as prescribed.
--- NOTE | 2020-12-02 15:31 | MHC.CM.PN ---
pt is being dc'd home c [facility] vna for nsg. he was active c this vna prior to admit and a ref. has been made to inform them of his dc. appt's were made for follow up c dr. heredia, pcp and [facility] wound clinc through the [facility] case mgt dept. the importance of these three f/u up appt's was stressed to patient. the patient was given the three follow up's c phone numbers and directed to call to confirm appt's. patient was in full understanding. transportation was made via [facility] or dc'ing r.n. cm to cont. to follow.
[2020-12-02 16:00] VITALS: RESP 17
[2020-12-02 16:15] LABS: Glucose, Whole Blood 117 mg/dL (60-115)
== END 2020-12-02 17:24 | disposition home health service (06) | DRG 181 ==
LOC: HO.ED 07:20 → HO.EDOVER 11:40 → HO.S3 11-25 06:56
PROVIDERS: Internal Medicine; Radiology Diagnostic Radiology; Surgery Vascular Surgery; Admitting Provider Student in an Organized Health Care Education/Training Program; Emergency Provider Emergency Medicine; Visit Provider Hospitalist
PROC: 047Q3Z1 Dilation of Left Anterior Tibial Artery using Drug-Coated Balloon, Percutaneous Approach (ICD-10-PCS; principal; 2020-11-30 12:30)
DX: E11.51 Type 2 diabetes mellitus with diabetic peripheral angiopathy without gangrene (principal); N17.9 Acute kidney failure, unspecified; E11.42 Type 2 diabetes mellitus with diabetic polyneuropathy; E11.69 Type 2 diabetes mellitus with other specified complication; F11.20 Opioid dependence, uncomplicated; E87.1 Hypo-osmolality and hyponatremia; M86.9 Osteomyelitis, unspecified; Z89.511 Acquired absence of right leg below knee; J45.909 Unspecified asthma, uncomplicated; F31.9 Bipolar disorder, unspecified; E78.5 Hyperlipidemia, unspecified; K21.9 Gastro-esophageal reflux disease without esophagitis; L97.429 Non-pressure chronic ulcer of left heel and midfoot with unspecified severity; R22.2 Localized swelling, mass and lump, trunk; D63.8 Anemia in other chronic diseases classified elsewhere; I50.22 Chronic systolic (congestive) heart failure; I70.244 Atherosclerosis of native arteries of left leg with ulceration of heel and midfoot; Z20.822 Contact with and (suspected) exposure to COVID-19; Z88.2 Allergy status to sulfonamides; Z79.4 Long term (current) use of insulin; Z79.02 Long term (current) use of antithrombotics/antiplatelets; Z79.82 Long term (current) use of aspirin; Z79.899 Other long term (current) drug therapy
CPT/HCPCS: 10005; 36253; 36415; 37228; 71250; 73630; 73723; 76942; 80048; 80202; 81001; 81003; 82607; 82728; 82746; 82947; 83540; 83605; 84133; 84300; 84484; 85025; 85027; 85610; 87040; 87071; 87086; 87102; 87116; 87205; 87635; 88173; 88184; 88185; 88300; 88305; 93005; 93925; 96361; 96365; 96367; 99152; 99153; 99284; 99285; A9585; C1725; C1760; C1769; C1887; J2270; J2405; J2543; J3370; Q9967

== ENCOUNTER 2020-12-21 10:53 | Outpatient (RCR) | payer MEDICAID, SELFPAY | END 2021-04-29 14:15 | disposition home or self-care (01) | LOC: HO.WCC 10:53 | PROVIDERS: Visit Provider Physician Assistant | DX: E11.621 Type 2 diabetes mellitus with foot ulcer (principal); L89.620 Pressure ulcer of left heel, unstageable; E11.51 Type 2 diabetes mellitus with diabetic peripheral angiopathy without gangrene; E11.69 Type 2 diabetes mellitus with other specified complication; M86.172 Other acute osteomyelitis, left ankle and foot; E11.65 Type 2 diabetes mellitus with hyperglycemia; F12.90 Cannabis use, unspecified, uncomplicated; Z79.2 Long term (current) use of antibiotics; Z89.511 Acquired absence of right leg below knee; Z86.19 Personal history of other infectious and parasitic diseases; Z79.891 Long term (current) use of opiate analgesic | CPT/HCPCS: 11042; 11043; 87071; 87205; 99213 ==

== ENCOUNTER 2021-01-02 11:09 | Inpatient (IN) | payer MEDICAID, SELFPAY ==
[2021-01-02] VITALS (14 sets, daily range): BP systolic 80–146; BP diastolic 41–97; PULSE 14–87; RESP 10–22; TEMP 35.6–36.9; O2SAT 96–100; BMI 19.9
--- NOTE | ~2021-01-02 | CT_ITS ---
EXAMINATION: CHEST CT WITHOUT CONTRAST CLINICAL INFORMATION: Evaluate for pneumonia. COMPARISON: Previous chest x-ray most recent from earlier the same day and previous chest CT November 2020 TECHNIQUE: Axial images through the chest without contrast. Sagittal and coronal reconstructions on the technologist workstation were performed. Patient dose 3 1 7 mg/cm. FINDINGS: There is scarring or subsegmental atelectasis at the lung bases. The lungs are otherwise clear. There is no evidence of pneumonia. There are small mediastinal lymph nodes. No enlarged lymph nodes are seen. The heart is slightly enlarged. There is no pericardial effusion. There is coronary artery calcification. The thoracic aorta is normal in caliber. There is no pleural effusion or pleural thickening. There is increased soft tissue and thickening of the right medial pectoral muscle extending to the right side of the sternum. There is shotty bilateral axillary lymphadenopathy. No enlarged axillary lymph nodes are seen. Images through the upper abdomen demonstrate bilateral renal calcifications probably representing vascular calcifications. There are gallstones in the gallbladder. There are degenerative changes of the spine. There is slight loss of height of the T9 vertebral body suggestive of a mild compression fracture. This is new in the interval from November 2020. There is increased soft tissue superficial and deep to the sternum. There is question of some adjacent cortical thickening. This appears improved from previous exams. CT/CT head/brain wo con IMPRESSION: No evidence of pneumonia. Enlarged heart. Coronary artery calcification. Gallstones. Improved right medial chest wall soft tissue thickening and soft tissue thickening superficial to and deep to the sternum. Mild T9 vertebral body compression fracture. EXAMINATION: Head CT without contrast CLINICAL INFORMATION: Weakness COMPARISON: Previous head CT most recent February 2011 TECHNIQUE: Axial images through the brain without contrast. Sagittal and coronal reconstructions on the technologist workstation were performed. Patient dose 700 mg/cm. FINDINGS: There is no evidence of an extra-axial collection. There is no evidence of intra-axial or extra-axial hemorrhage. The ventricles and extra-axial CSF spaces are prominent suggestive of mild generalized atrophy. There is nonspecific periventricular white matter disease. No mass, mass effect or infarct is seen. Review of bone windows is normal. No skull fracture is seen. There is a soft tissue opacification of the left frontal sinus. Visualized paranasal sinuses, mastoid air cells and middle ears are otherwise clear. IMPRESSION: No acute findings. Generalized atrophy and nonspecific periventricular white matter disease. Left frontal sinus disease.
--- NOTE | ~2021-01-02 | XR_ITS ---
EXAMINATION: XR CHEST CLINICAL INFORMATION: Weakness COMPARISON: Chest x-ray on 10/09/2020 TECHNIQUE: Frontal view of the chest was obtained. FINDINGS: Cardiomediastinal silhouette is normal. There are scattered areas of hazy opacities in the bilateral lower lobes, right greater than left. No large areas of consolidation. No pleural effusions. XR/XR chest 1V IMPRESSION: Hazy opacities are likely secondary to infectious/inflammatory small airways disease.
--- NOTE | ~2021-01-02 | CT_ITS ---
EXAMINATION: CT FOOT, LEFT WITH CONTRAST CLINICAL INFORMATION: Left heel necrosis COMPARISON: MRI 11/27/2020. TECHNIQUE: Multidetector volumetric imaging of the left foot is performed after administration of 85 mL of Omnipaque 350 IV contrast. Coronal and sagittal reformatted images are obtained and reviewed. This CT examination was performed using dose optimization techniques as appropriate, variously including the following: *Automated exposure control *Adjustment of mA and/or kV according to patient size (this includes techniques or standardized protocols for targeted exams where dose is matched to indication/reason for exam; i.e. extremities or head) *Use of iterative reconstruction technique DLP: 161 mGy-cm FINDINGS: There is soft tissue swelling and gas overlying the calcaneus posteriorly. There is erosion of the underlying bone with irregularity. Somewhat fragmented appearance with calcification leading to the skin surface. In comparison to the previous MRI, this was the site of osteomyelitis. The soft tissue and bone irregularity extends to the region of the attachment of the Achilles tendon to the calcaneus. Of the No acute fracture otherwise. No additional osseous erosion. Alignment at the ankle is anatomic. No additional soft tissue abnormality. Diffuse vascular calcifications. CT/CT foot LT w con IMPRESSION: Ulcer with soft tissue gas overlying the calcaneus. Associated osseous erosion which involves the Achilles tendon attachment. This is the site of osteomyelitis seen on the previous MRI.
--- NOTE | 2021-01-02 11:19 | ECG_ITS ---
Test Reason : WEAKNESS Blood Pressure : / mmHG Vent. Rate : 091 BPM Atrial Rate : 091 BPM P-R Int : 182 ms QRS Dur : 116 ms QT Int : 382 ms P-R-T Axes : 091 -23 140 degrees QTc Int : 469 ms Sinus rhythm with Fusion complexes and Premature atrial complexes with Aberrant conduction ST & T wave abnormality, consider lateral ischemia Prolonged QT Abnormal ECG When compared with ECG of 02-JAN-2021 11:13, Fusion complexes are now Present QT has shortened Referred By: Bhavani Parks Electronically Signed By:Gustavo Mccollum
--- NOTE | 2021-01-02 11:24 | ED.GENADULT ---
HPI - General Adult General Chief complaint: Arrhythmia/Palpitations Stated complaint: nydia, weak, lethargy Time Seen by Provider: 01/02/21 11:17 Source: patient, EMS, old records reviewed and certified court interpreter Mode of arrival: EMS Limitations: no limitations History of Present Illness HPI narrative: neighbor called for AMS - pateint found with abrasion to nose, abrasions to R forearm, BS 42, BP 100/62, HR in 30s sinus bradycardia given narcan 0.5mg IV, atropine 2mg, D10 12.5mg patient now awake and alert HR in 80s states he drank and got his methadone this AM does not remember falling MD complaint: AMS Onset (ago): unknown Radiation: non-radiation Severity: moderate Related Data Home Medications Medication Instructions Recorded Confirmed FreeStyle Lite Strips 08/12/20 08/12/20 albuterol sulfate 2 puff INHALATION Q4H PRN 08/12/20 11/24/20 albuterol sulfate 2.5 mg INHALATION Q4H PRN 08/12/20 11/24/20 blood-glucose meter [FreeStyle 08/12/20 08/12/20 [place] Lite] cane 08/12/20 08/12/20 famotidine [Pepcid] 20 mg PO BID 08/12/20 11/24/20 lancets 08/12/20 08/12/20 magnesium oxide [MagOx] 400 mg PO DAILY 08/12/20 11/24/20 methadone 50 mg PO QAM 08/12/20 09/05/20 pen needle, diabetic 08/12/20 08/12/20 Eucerin 1 applic TOPICAL DAILY PRN 08/14/20 11/24/20 Lantus U-100 Insulin 12 unit SUBCUT QPM 08/14/20 11/24/20 aspirin 81 mg PO DAILY 08/14/20 11/24/20 atorvastatin 20 mg PO BEDTIME 08/14/20 11/24/20 carvedilol 6.25 mg PO BID 08/14/20 11/24/20 cetirizine 10 mg PO DAILY 08/14/20 11/24/20 clopidogrel 75 mg PO DAILY 08/14/20 11/24/20 clotrimazole 1 applic TOPICAL TID 08/14/20 11/24/20 ergocalciferol (vitamin D2) 1,250 mcg PO QWEEK 10/02/20 01/12/21 fluticasone propionate [Flonase 1 spray INTRANASAL DAILY 08/14/20 11/24/20 Allergy Relief] gabapentin 200 mg PO TID 08/14/20 11/24/20 insulin lispro 5 unit SUBCUT TIDAC 08/14/20 11/24/20 montelukast 10 mg PO BEDTIME 08/14/20 11/24/20 polyethylene glycol 3350 [Miralax] 17 g PO DAILY 08/14/20 11/24/20 sennosides [senna] 8.6 mg PO BEDTIME PRN 08/14/20 11/24/20 spironolactone 12.5 mg PO DAILY 08/14/20 11/24/20 tamsulosin 0.4 mg PO DAILY 08/14/20 11/24/20 zinc sulfate 220 mg PO DAILY 08/14/20 11/24/20 Narcan 4 mg INTRANASAL Q3M PRN 11/24/20 11/24/20 fluticasone propionate 1 puff INHALATION BID 11/24/20 11/24/20 tramadol 50 mg PO BID PRN 11/24/20 11/24/20 Previous Rx's Medication Instructions Recorded furosemide 40 mg PO DAILY@1700 #30 tab 09/04/20 doxycycline hyclate 100 mg PO Q12H #76 tab 12/02/20 furosemide 40 mg PO DAILY #30 tab 12/02/20 Allergies Allergy/AdvReac Type Severity Reaction Status Date / Time vancomycin [VANCOMYCIN] Allergy Intermediate HIVES Verified 10/04/20 06:49 Chocolate Allergy Unknown Rash Verified 10/04/20 06:49 ciprofloxacin [From CIPRO] Allergy Unknown SWELLING Verified 10/04/20 06:49 ertapenem Allergy Unknown Hives Verified 10/04/20 06:49 hydrocortisone [Cipro HC] Allergy Unknown Unknown Verified 10/04/20 06:49 sulfamethoxazole Allergy Unknown rash Verified 10/04/20 06:49 [From BACTRIM] trimethoprim [From BACTRIM] Allergy Unknown rash Verified 10/04/20 06:49 turkey [TURKEY] Allergy Unknown RASH Verified 10/04/20 06:49 From INVANZ Allergy Intermediate HIVES Uncoded 10/04/20 06:49 choclate Allergy Unknown rash Uncoded 10/04/20 06:49 [facility] Past Medical History Attestation statement: The following information was validated with the patient. Medical History (Updated 01/02/21 @ 15:25 by Bhavani Parks DO) Acute on chronic anemia Acute on chronic combined systolic and diastolic congestive heart failure Asthma Bipolar 1 disorder BPH (benign prostatic hyperplasia) Chest pain Cholelithiasis Congestive cardiac failure COPD (chronic obstructive pulmonary disease) Diabetes mellitus, type 2 GERD (gastroesophageal reflux disease) Hyperlipidemia Peripheral arterial disease Peripheral neuropathy Substance abuse Surgical History History of amputation History of laminectomy History of transurethral resection of prostate Hx of BKA Family History Family History Father Chronic mental illness Hypertension Asthma Stroke Mother Asthma Diabetes Coronary artery disease Social History Social History Household Members: None Alcohol intake: current Alcohol intake frequency: does not drink Alcohol type: beer Smoking Status: Never smoker Second Hand Smoke Exposure: No Use of substances other than those prescribed or required for medical reasons: Yes Substance Use Type: Heroin and Painkillers Substance Use Frequency: Chronic Longstanding Advance Directives: Yes Advance Directives on File: Yes Advance Directives Date on File: 11/24/20 service: No Current occupational status: disabled Physical Exam Vital Signs: Vital Signs: Last Vital Signs Temp 97.5 F 01/02/21 15:54 Pulse 68 01/02/21 16:02 Resp 16 01/02/21 16:02 BP 103/61 01/02/21 16:02 Pulse Ox 99 01/02/21 16:02 Body Mass Index 19.9 Appearance: Alert. Oriented X3. No acute distress. Eyes: Pupils 4mm equal, round and reactive to light. ENT: Pharynx normal. abrasion on bridge of nose Neck: Normal inspection. Neck supple. CVS: Normal heart rate and rhythm. Pulses normal. Respiratory: No respiratory distress. Breath sounds normal. Abdomen: Soft and nontender. Skin: Skin warm and dry. pale skin color. Normal skin turgor. Extremities: No lower extremity edema. L heel dry thickened ulcer no surrounding erythema, no drainage Neuro: Oriented X 3. No motor deficit. No sensory deficit. Course Course Course Narrative: patient refusing CT scans, aggressive and rude to staff, alert and oriented x 3, [address] scan without success as he moves around, aware we are looking for pneumonia but still refuses, was given empiric cefepime patient now appears in withdrawal - was found down with pinpoint pupils responded and woke up to narcan - could have been overdose but he denies using anything other than his methadone, MINH only THC, ETOH negative no pneumonia, negative CT head mild T9 compression fracture, patient still cannot tell me what happened, negative urine no signs of infection given EKG changes and delta troponin consult to Dr. Mccollum, oral ASA ordered the patient has no c/o chest pain but c/o withdrawal symptoms EKGs and troponins reviewed with Dr. Mccollum - no heparin, needs ECHO, repeat troponin. optimize magnesium and potassium Medical Decision Making MDM Narrative Medical decision making narrative: 50 yo male with complex medical problems including substance abuse, COPD, chest pain, DM, osteomyelitis, HTN, HPL, PVD s/p R BKA, known chronic L foot ulcer, noncompliance was brought in after being found altered when a neighbor checked on him, he was hypoglycemic with pinpoint pupils and HR in 33, responded to narcan, dextrose and atropine - he currently admits to getting his methadone this AM and drinking ETOH, he has abrasions on R arm and bridge of nose - fresh track esparza seen at this time will obtain labs, CT head, CXR, COVID swab, keep on tele dispo per results and findings, EKG is irregular but he has no chest pain troponin is ordered Lab Data Result diagrams: 01/02/21 11:55 01/02/21 11:55 Labs: Lab Results 01/02/21 01/02/21 01/02/21 Range/Units 11:55 11:55 11:55 WBC 12.7 H (4.8-10.8) X10*3/uL RBC 3.02 L (4.60-5.80) X10*6/uL Hgb 8.3 L (14.0-18.0) g/dl Hct 25.4 L (42-52) % MCV 84.1 (80-98) fL MCH 27.5 (27.0-33.0) pg MCHC 32.7 (31.0-36.0) g/dl RDW 15.9 (11.0-16.0) % Plt Count 368 (160-400) X10*3/uL MPV 8.5 L (9.4-12.4) fL Immature Gran % (Auto) 0.6 H (0.0-0.4) % Neut % (Auto) 80.6 H (45-73) % Lymph % (Auto) 6.1 L (20-40) % [place] % (Auto) 9.9 (2-11) % Eos % (Auto) 2.5 (0-4) % Baso % (Auto) 0.3 (0-2) % Lymph # (Auto) 0.8 L (1.2-4.9) X10*3/uL [place] # (Auto) 1.3 H (0.1-1.2) X10*3/uL Eos # (Auto) 0.3 (0.0-0.4) X10*3/uL Baso # (Auto) 0.0 (0.0-0.2) X10*3/uL Abs Immat Gran (auto) 0.08 H (0.00-0.03) X10*3/uL Absolute Neuts (auto) 10.2 H (2.0-8.3) X10*3/uL Absolute Nucleated RBC 0.000 (0.0-0.012) X10*3/uL Nucleated RBC % (auto) 0.0 (0.0-0.2) /100WBC PT (10.8-13.0) SEC INR (0.9-1.1) APTT (24.1-38.0) SEC VBG pH (7.32-7.43) VBG pCO2 mmHg VBG pO2 mmHg VBG HCO3 mmol/L VBG O2 Saturation % VBG Base Excess mmol/L Sodium 136 (135-145) mmol/L Potassium 3.3 (3.3-5.1) mmol/L Chloride 98 (96-108) mmol/L Carbon Dioxide 26 (22-29) mmol/L Anion Gap 15 (12-20) BUN 28 H (9-16) mg/dL Creatinine 1.14 (0.5-1.4) mg/dL Estim Creat Clear Calc 60.0 Estimated GFR > 60 POC Glucose (60-115) mg/dL Random Glucose 51 L* (60-115) mg/dL Lactic Acid (0.5-2.0) mmol/L Lactic Acid Fup @ 2Hr (0.5-2.0) mmol/L Calcium 9.0 D (8.4-10.2) mg/dL Magnesium 1.7 (1.6-2.6) mg/dL Total Bilirubin 0.7 (0.0-1.0) mg/dL Direct Bilirubin 0.4 (0.0-0.5) mg/dL AST 25 (5-37) U/L ALT 15 (0-40) U/L Alkaline Phosphatase 127 H (39-117) U/L Ammonia (13-55) umol/L Total Creatine Kinase 117 (38-174) U/L Troponin I High Sens (<3.5-35.0) ng/L Total Protein 9.0 H (6.5-8.0) g/dL Albumin 3.3 L (3.5-5.0) g/dL Lipase (8-78) U/L TSH 5.70 H (0.32-4.0) uIU/mL Urine Color Urine Appearance Urine pH (5.0-8.0) Ur Specific [place] (1.005-1.025) Urine Protein (NEG-TRACE) MG/DL Urine Glucose (UA) (NEG) MG/DL Urine Ketones (NEG) MG/DL Urine Blood (NEG) Urine Nitrite (NEG) Ur Leukocyte Esterase (NEG) Urine RBC (0) /HPF Urine WBC (0-4) /HPF Ur Squamous Epith Cells /LPF Urine Bacteria /LPF Urine Opiates Screen (Not Detect) Ur Barbiturates Screen (Not Detect) Ur Phencyclidine Scrn (Not Detect) Ur Amphetamines Screen (Not Detect) U Benzodiazepines Scrn (Not Detect) Urine Cocaine Screen (Not Detect) U Marijuana (THC) Screen (Not Detect) Ethyl Alcohol mg/dL COVID-19 (JAMILA) Negative (Negative) COVID-19 Clin Com See Note 01/02/21 01/02/21 01/02/21 Range/Units 11:55 11:55 11:55 WBC (4.8-10.8) X10*3/uL RBC (4.60-5.80) X10*6/uL Hgb (14.0-18.0) g/dl Hct (42-52) % MCV (80-98) fL MCH (27.0-33.0) pg MCHC (31.0-36.0) g/dl RDW (11.0-16.0) % Plt Count (160-400) X10*3/uL MPV (9.4-12.4) fL Immature Gran % (Auto) (0.0-0.4) % Neut % (Auto) (45-73) % Lymph % (Auto) (20-40) % [place] % (Auto) (2-11) % Eos % (Auto) (0-4) % Baso % (Auto) (0-2) % Lymph # (Auto) (1.2-4.9) X10*3/uL [place] # (Auto) (0.1-1.2) X10*3/uL Eos # (Auto) (0.0-0.4) X10*3/uL Baso # (Auto) (0.0-0.2) X10*3/uL Abs Immat Gran (auto) (0.00-0.03) X10*3/uL Absolute Neuts (auto) (2.0-8.3) X10*3/uL Absolute Nucleated RBC (0.0-0.012) X10*3/uL Nucleated RBC % (auto) (0.0-0.2) /100WBC PT 14.7 H (10.8-13.0) SEC INR 1.2 H (0.9-1.1) APTT 38.3 H (24.1-38.0) SEC VBG pH (7.32-7.43) VBG pCO2 mmHg VBG pO2 mmHg VBG HCO3 mmol/L VBG O2 Saturation % VBG Base Excess mmol/L Sodium (135-145) mmol/L Potassium (3.3-5.1) mmol/L Chloride (96-108) mmol/L Carbon Dioxide (22-29) mmol/L Anion Gap (12-20) BUN (9-16) mg/dL Creatinine (0.5-1.4) mg/dL Estim Creat Clear Calc Estimated GFR POC Glucose (60-115) mg/dL Random Glucose (60-115) mg/dL Lactic Acid 2.7 H* (0.5-2.0) mmol/L Lactic Acid Fup @ 2Hr (0.5-2.0) mmol/L Calcium (8.4-10.2) mg/dL Magnesium (1.6-2.6) mg/dL Total Bilirubin (0.0-1.0) mg/dL Direct Bilirubin (0.0-0.5) mg/dL AST (5-37) U/L ALT (0-40) U/L Alkaline Phosphatase (39-117) U/L Ammonia (13-55) umol/L Total Creatine Kinase (38-174) U/L Troponin I High Sens (<3.5-35.0) ng/L Total Protein (6.5-8.0) g/dL Albumin (3.5-5.0) g/dL Lipase (8-78) U/L TSH (0.32-4.0) uIU/mL Urine Color Urine Appearance Urine pH (5.0-8.0) Ur Specific [place] (1.005-1.025) Urine Protein (NEG-TRACE) MG/DL Urine Glucose (UA) (NEG) MG/DL Urine Ketones (NEG) MG/DL Urine Blood (NEG) Urine Nitrite (NEG) Ur Leukocyte Esterase (NEG) Urine RBC (0) /HPF Urine WBC (0-4) /HPF Ur Squamous Epith Cells /LPF Urine Bacteria /LPF Urine Opiates Screen (Not Detect) Ur Barbiturates Screen (Not Detect) Ur Phencyclidine Scrn (Not Detect) Ur Amphetamines Screen (Not Detect) U Benzodiazepines Scrn (Not Detect) Urine Cocaine Screen (Not Detect) U Marijuana (THC) Screen (Not Detect) Ethyl Alcohol < 10 mg/dL COVID-19 (JAMILA) (Negative) COVID-19 Clin Com 01/02/21 01/02/21 01/02/21 Range/Units 11:55 11:55 11:55 WBC (4.8-10.8) X10*3/uL RBC (4.60-5.80) X10*6/uL Hgb (14.0-18.0) g/dl Hct (42-52) % MCV (80-98) fL MCH (27.0-33.0) pg MCHC (31.0-36.0) g/dl RDW (11.0-16.0) % Plt Count (160-400) X10*3/uL MPV (9.4-12.4) fL Immature Gran % (Auto) (0.0-0.4) % Neut % (Auto) (45-73) % Lymph % (Auto) (20-40) % [place] % (Auto) (2-11) % Eos % (Auto) (0-4) % Baso % (Auto) (0-2) % Lymph # (Auto) (1.2-4.9) X10*3/uL [place] # (Auto) (0.1-1.2) X10*3/uL Eos # (Auto) (0.0-0.4) X10*3/uL Baso # (Auto) (0.0-0.2) X10*3/uL Abs Immat Gran (auto) (0.00-0.03) X10*3/uL Absolute Neuts (auto) (2.0-8.3) X10*3/uL Absolute Nucleated RBC (0.0-0.012) X10*3/uL Nucleated RBC % (auto) (0.0-0.2) /100WBC PT (10.8-13.0) SEC INR (0.9-1.1) APTT (24.1-38.0) SEC VBG pH 7.49 H (7.32-7.43) VBG pCO2 33 mmHg VBG pO2 51 mmHg VBG HCO3 25 mmol/L VBG O2 Saturation 82.0 % VBG Base Excess 2.8 mmol/L Sodium (135-145) mmol/L Potassium (3.3-5.1) mmol/L Chloride (96-108) mmol/L Carbon Dioxide (22-29) mmol/L Anion Gap (12-20) BUN (9-16) mg/dL Creatinine (0.5-1.4) mg/dL Estim Creat Clear Calc Estimated GFR POC Glucose (60-115) mg/dL Random Glucose (60-115) mg/dL Lactic Acid (0.5-2.0) mmol/L Lactic Acid Fup @ 2Hr (0.5-2.0) mmol/L Calcium (8.4-10.2) mg/dL Magnesium (1.6-2.6) mg/dL Total Bilirubin (0.0-1.0) mg/dL Direct Bilirubin (0.0-0.5) mg/dL AST (5-37) U/L ALT (0-40) U/L Alkaline Phosphatase (39-117) U/L Ammonia (13-55) umol/L Total Creatine Kinase (38-174) U/L Troponin I High Sens 18.0 (<3.5-35.0) ng/L Total Protein (6.5-8.0) g/dL Albumin (3.5-5.0) g/dL Lipase 31 (8-78) U/L TSH (0.32-4.0) uIU/mL Urine Color Urine Appearance Urine pH (5.0-8.0) Ur Specific [place] (1.005-1.025) Urine Protein (NEG-TRACE) MG/DL Urine Glucose (UA) (NEG) MG/DL Urine Ketones (NEG) MG/DL Urine Blood (NEG) Urine Nitrite (NEG) Ur Leukocyte Esterase (NEG) Urine RBC (0) /HPF Urine WBC (0-4) /HPF Ur Squamous Epith Cells /LPF Urine Bacteria /LPF Urine Opiates Screen (Not Detect) Ur Barbiturates Screen (Not Detect) Ur Phencyclidine Scrn (Not Detect) Ur Amphetamines Screen (Not Detect) U Benzodiazepines Scrn (Not Detect) Urine Cocaine Screen (Not Detect) U Marijuana (THC) Screen (Not Detect) Ethyl Alcohol mg/dL COVID-19 (JAMILA) (Negative) COVID-19 Clin Com 01/02/21 01/02/21 01/02/21 Range/Units 11:56 12:02 12:25 WBC (4.8-10.8) X10*3/uL RBC (4.60-5.80) X10*6/uL Hgb (14.0-18.0) g/dl Hct (42-52) % MCV (80-98) fL MCH (27.0-33.0) pg MCHC (31.0-36.0) g/dl RDW (11.0-16.0) % Plt Count (160-400) X10*3/uL MPV (9.4-12.4) fL Immature Gran % (Auto) (0.0-0.4) % Neut % (Auto) (45-73) % Lymph % (Auto) (20-40) % [place] % (Auto) (2-11) % Eos % (Auto) (0-4) % Baso % (Auto) (0-2) % Lymph # (Auto) (1.2-4.9) X10*3/uL [place] # (Auto) (0.1-1.2) X10*3/uL Eos # (Auto) (0.0-0.4) X10*3/uL Baso # (Auto) (0.0-0.2) X10*3/uL Abs Immat Gran (auto) (0.00-0.03) X10*3/uL Absolute Neuts (auto) (2.0-8.3) X10*3/uL Absolute Nucleated RBC (0.0-0.012) X10*3/uL Nucleated RBC % (auto) (0.0-0.2) /100WBC PT (10.8-13.0) SEC INR (0.9-1.1) APTT (24.1-38.0) SEC VBG pH (7.32-7.43) VBG pCO2 mmHg VBG pO2 mmHg VBG HCO3 mmol/L VBG O2 Saturation % VBG Base Excess mmol/L Sodium (135-145) mmol/L Potassium (3.3-5.1) mmol/L Chloride (96-108) mmol/L Carbon Dioxide (22-29) mmol/L Anion Gap (12-20) BUN (9-16) mg/dL Creatinine (0.5-1.4) mg/dL Estim Creat Clear Calc Estimated GFR POC Glucose 53 L* 54 L* (60-115) mg/dL Random Glucose (60-115) mg/dL Lactic Acid (0.5-2.0) mmol/L Lactic Acid Fup @ 2Hr (0.5-2.0) mmol/L Calcium (8.4-10.2) mg/dL Magnesium (1.6-2.6) mg/dL Total Bilirubin (0.0-1.0) mg/dL Direct Bilirubin (0.0-0.5) mg/dL AST (5-37) U/L ALT (0-40) U/L Alkaline Phosphatase (39-117) U/L Ammonia 22 (13-55) umol/L Total Creatine Kinase (38-174) U/L Troponin I High Sens (<3.5-35.0) ng/L Total Protein (6.5-8.0) g/dL Albumin (3.5-5.0) g/dL Lipase (8-78) U/L TSH (0.32-4.0) uIU/mL Urine Color Urine Appearance Urine pH (5.0-8.0) Ur Specific [place] (1.005-1.025) Urine Protein (NEG-TRACE) MG/DL Urine Glucose (UA) (NEG) MG/DL Urine Ketones (NEG) MG/DL Urine Blood (NEG) Urine Nitrite (NEG) Ur Leukocyte Esterase (NEG) Urine RBC (0) /HPF Urine WBC (0-4) /HPF Ur Squamous Epith Cells /LPF Urine Bacteria /LPF Urine Opiates Screen (Not Detect) Ur Barbiturates Screen (Not Detect) Ur Phencyclidine Scrn (Not Detect) Ur Amphetamines Screen (Not Detect) U Benzodiazepines Scrn (Not Detect) Urine Cocaine Screen (Not Detect) U Marijuana (THC) Screen (Not Detect) Ethyl Alcohol mg/dL COVID-19 (AJMILA) (Negative) COVID-19 Clin Com 01/02/21 01/02/21 01/02/21 Range/Units 12:43 12:43 13:21 WBC (4.8-10.8) X10*3/uL RBC (4.60-5.80) X10*6/uL Hgb (14.0-18.0) g/dl Hct (42-52) % MCV (80-98) fL MCH (27.0-33.0) pg MCHC (31.0-36.0) g/dl RDW (11.0-16.0) % Plt Count (160-400) X10*3/uL MPV (9.4-12.4) fL Immature Gran % (Auto) (0.0-0.4) % Neut % (Auto) (45-73) % Lymph % (Auto) (20-40) % [place] % (Auto) (2-11) % Eos % (Auto) (0-4) % Baso % (Auto) (0-2) % Lymph # (Auto) (1.2-4.9) X10*3/uL [place] # (Auto) (0.1-1.2) X10*3/uL Eos # (Auto) (0.0-0.4) X10*3/uL Baso # (Auto) (0.0-0.2) X10*3/uL Abs Immat Gran (auto) (0.00-0.03) X10*3/uL Absolute Neuts (auto) (2.0-8.3) X10*3/uL Absolute Nucleated RBC (0.0-0.012) X10*3/uL Nucleated RBC % (auto) (0.0-0.2) /100WBC PT (10.8-13.0) SEC INR (0.9-1.1) APTT (24.1-38.0) SEC VBG pH (7.32-7.43) VBG pCO2 mmHg VBG pO2 mmHg VBG HCO3 mmol/L VBG O2 Saturation % VBG Base Excess mmol/L Sodium (135-145) mmol/L Potassium (3.3-5.1) mmol/L Chloride (96-108) mmol/L Carbon Dioxide (22-29) mmol/L Anion Gap (12-20) BUN (9-16) mg/dL Creatinine (0.5-1.4) mg/dL Estim Creat Clear Calc Estimated GFR POC Glucose 214 H (60-115) mg/dL Random Glucose (60-115) mg/dL Lactic Acid (0.5-2.0) mmol/L Lactic Acid Fup @ 2Hr (0.5-2.0) mmol/L Calcium (8.4-10.2) mg/dL Magnesium (1.6-2.6) mg/dL Total Bilirubin (0.0-1.0) mg/dL Direct Bilirubin (0.0-0.5) mg/dL AST (5-37) U/L ALT (0-40) U/L Alkaline Phosphatase (39-117) U/L Ammonia (13-55) umol/L Total Creatine Kinase (38-174) U/L Troponin I High Sens (<3.5-35.0) ng/L Total Protein (6.5-8.0) g/dL Albumin (3.5-5.0) g/dL Lipase (8-78) U/L TSH (0.32-4.0) uIU/mL Urine Color STRAW Urine Appearance CLEAR Urine pH 7.0 (5.0-8.0) Ur Specific [place] 1.010 (1.005-1.025) Urine Protein NEG (NEG-TRACE) MG/DL Urine Glucose (UA) NEG (NEG) MG/DL Urine Ketones NEG (NEG) MG/DL Urine Blood TRACE (NEG) Urine Nitrite NEG (NEG) Ur Leukocyte Esterase NEG (NEG) Urine RBC 0-2 (0) /HPF Urine WBC 0 (0-4) /HPF Ur Squamous Epith Cells NONE /LPF Urine Bacteria NONE /LPF Urine Opiates Screen Not Detected (Not Detect) Ur Barbiturates Screen Not Detected (Not Detect) Ur Phencyclidine Scrn Not Detected (Not Detect) Ur Amphetamines Screen Not Detected (Not Detect) U Benzodiazepines Scrn Not Detected (Not Detect) Urine Cocaine Screen Not Detected (Not Detect) U Marijuana (THC) Screen POSITIVE H (Not Detect) Ethyl Alcohol mg/dL COVID-19 (JAMILA) (Negative) COVID-19 Clin Com 01/02/21 01/02/21 01/02/21 Range/Units 13:59 14:42 15:06 WBC (4.8-10.8) X10*3/uL RBC (4.60-5.80) X10*6/uL Hgb (14.0-18.0) g/dl Hct (42-52) % MCV (80-98) fL MCH (27.0-33.0) pg MCHC (31.0-36.0) g/dl RDW (11.0-16.0) % Plt Count (160-400) X10*3/uL MPV (9.4-12.4) fL Immature Gran % (Auto) (0.0-0.4) % Neut % (Auto) (45-73) % Lymph % (Auto) (20-40) % [place] % (Auto) (2-11) % Eos % (Auto) (0-4) % Baso % (Auto) (0-2) % Lymph # (Auto) (1.2-4.9) X10*3/uL [place] # (Auto) (0.1-1.2) X10*3/uL Eos # (Auto) (0.0-0.4) X10*3/uL Baso # (Auto) (0.0-0.2) X10*3/uL Abs Immat Gran (auto) (0.00-0.03) X10*3/uL Absolute Neuts (auto) (2.0-8.3) X10*3/uL Absolute Nucleated RBC (0.0-0.012) X10*3/uL Nucleated RBC % (auto) (0.0-0.2) /100WBC PT (10.8-13.0) SEC INR (0.9-1.1) APTT (24.1-38.0) SEC VBG pH (7.32-7.43) VBG pCO2 mmHg VBG pO2 mmHg VBG HCO3 mmol/L VBG O2 Saturation % VBG Base Excess mmol/L Sodium (135-145) mmol/L Potassium (3.3-5.1) mmol/L Chloride (96-108) mmol/L Carbon Dioxide (22-29) mmol/L Anion Gap (12-20) BUN (9-16) mg/dL Creatinine (0.5-1.4) mg/dL Estim Creat Clear Calc Estimated GFR POC Glucose 190 H (60-115) mg/dL Random Glucose (60-115) mg/dL Lactic Acid (0.5-2.0) mmol/L Lactic Acid Fup @ 2Hr 2.2 H* (0.5-2.0) mmol/L Calcium (8.4-10.2) mg/dL Magnesium (1.6-2.6) mg/dL Total Bilirubin (0.0-1.0) mg/dL Direct Bilirubin (0.0-0.5) mg/dL AST (5-37) U/L ALT (0-40) U/L Alkaline Phosphatase (39-117) U/L Ammonia (13-55) umol/L Total Creatine Kinase (38-174) U/L Troponin I High Sens 45.9 H D (<3.5-35.0) ng/L Total Protein (6.5-8.0) g/dL Albumin (3.5-5.0) g/dL Lipase (8-78) U/L TSH (0.32-4.0) uIU/mL Urine Color Urine Appearance Urine pH (5.0-8.0) Ur Specific [place] (1.005-1.025) Urine Protein (NEG-TRACE) MG/DL Urine Glucose (UA) (NEG) MG/DL Urine Ketones (NEG) MG/DL Urine Blood (NEG) Urine Nitrite (NEG) Ur Leukocyte Esterase (NEG) Urine RBC (0) /HPF Urine WBC (0-4) /HPF Ur Squamous Epith Cells /LPF Urine Bacteria /LPF Urine Opiates Screen (Not Detect) Ur Barbiturates Screen (Not Detect) Ur Phencyclidine Scrn (Not Detect) Ur Amphetamines Screen (Not Detect) U Benzodiazepines Scrn (Not Detect) Urine Cocaine Screen (Not Detect) U Marijuana (THC) Screen (Not Detect) Ethyl Alcohol mg/dL COVID-19 (JAMILA) (Negative) COVID-19 Clin Com 01/02/21 Range/Units 15:20 WBC (4.8-10.8) X10*3/uL RBC (4.60-5.80) X10*6/uL Hgb (14.0-18.0) g/dl Hct (42-52) % MCV (80-98) fL MCH (27.0-33.0) pg MCHC (31.0-36.0) g/dl RDW (11.0-16.0) % Plt Count (160-400) X10*3/uL MPV (9.4-12.4) fL Immature Gran % (Auto) (0.0-0.4) % Neut % (Auto) (45-73) % Lymph % (Auto) (20-40) % [place] % (Auto) (2-11) % Eos % (Auto) (0-4) % Baso % (Auto) (0-2) % Lymph # (Auto) (1.2-4.9) X10*3/uL [place] # (Auto) (0.1-1.2) X10*3/uL Eos # (Auto) (0.0-0.4) X10*3/uL Baso # (Auto) (0.0-0.2) X10*3/uL Abs Immat Gran (auto) (0.00-0.03) X10*3/uL Absolute Neuts (auto) (2.0-8.3) X10*3/uL Absolute Nucleated RBC (0.0-0.012) X10*3/uL Nucleated RBC % (auto) (0.0-0.2) /100WBC PT (10.8-13.0) SEC INR (0.9-1.1) APTT (24.1-38.0) SEC VBG pH (7.32-7.43) VBG pCO2 mmHg VBG pO2 mmHg VBG HCO3 mmol/L VBG O2 Saturation % VBG Base Excess mmol/L Sodium (135-145) mmol/L Potassium (3.3-5.1) mmol/L Chloride (96-108) mmol/L Carbon Dioxide (22-29) mmol/L Anion Gap (12-20) BUN (9-16) mg/dL Creatinine (0.5-1.4) mg/dL Estim Creat Clear Calc Estimated GFR POC Glucose 158 H (60-115) mg/dL Random Glucose (60-115) mg/dL Lactic Acid (0.5-2.0) mmol/L Lactic Acid Fup @ 2Hr (0.5-2.0) mmol/L Calcium (8.4-10.2) mg/dL Magnesium (1.6-2.6) mg/dL Total Bilirubin (0.0-1.0) mg/dL Direct Bilirubin (0.0-0.5) mg/dL AST (5-37) U/L ALT (0-40) U/L Alkaline Phosphatase (39-117) U/L Ammonia (13-55) umol/L Total Creatine Kinase (38-174) U/L Troponin I High Sens (<3.5-35.0) ng/L Total Protein (6.5-8.0) g/dL Albumin (3.5-5.0) g/dL Lipase (8-78) U/L TSH (0.32-4.0) uIU/mL Urine Color Urine Appearance Urine pH (5.0-8.0) Ur Specific [place] (1.005-1.025) Urine Protein (NEG-TRACE) MG/DL Urine Glucose (UA) (NEG) MG/DL Urine Ketones (NEG) MG/DL Urine Blood (NEG) Urine Nitrite (NEG) Ur Leukocyte Esterase (NEG) Urine RBC (0) /HPF Urine WBC (0-4) /HPF Ur Squamous Epith Cells /LPF Urine Bacteria /LPF Urine Opiates Screen (Not Detect) Ur Barbiturates Screen (Not Detect) Ur Phencyclidine Scrn (Not Detect) Ur Amphetamines Screen (Not Detect) U Benzodiazepines Scrn (Not Detect) Urine Cocaine Screen (Not Detect) U Marijuana (THC) Screen (Not Detect) Ethyl Alcohol mg/dL COVID-19 (JAMILA) (Negative) COVID-19 Clin Com ECG Data Attestation: I personally reviewed and interpreted this ECG as follows: Interpretation: Rate: 91 Rhythm: NSR [place]: left Normal P waves. Normal [place]. Normal QRS complex. ST T wave : inverted I and aVL, inverted V4-V6 with some slight depression of V3 ST seg - no ST depression in V1 or V2 qTC: prolonged prior studies: no sig changes other than V3 and V4 The study has been interpreted contemporaneously by me. EKG #2 Rate: 64 Rhythm: NSR [place]: left Normal P waves. Normal AEDLA. Normal QRS complex. ST T wave : inverted I and aVL, V3 - V6 qTC: normal prior studies: no acute ischemia The study has been interpreted contemporaneously by me. . Discharge Plan Discharge Clinical Impression: Hypoglycemia, Opiate abuse, continuous, Elevated troponin, ST segment depression Closed wedge compression fracture of T9 vertebra Qualifiers: Encounter type: initial encounter Qualified Code(s): S22.070A - Wedge compression fracture of T9-T10 vertebra, initial encounter for closed fracture Patient Disposition: Admitted As Inpatient
[2021-01-02 12:05] LABS: Glucose, Whole Blood 53 mg/dL (60-115)
[2021-01-02 12:07] LABS: Base Excess VBG 2.8 mmol/L; HCO3 VBG 25 mmol/L; PCO2 VBG 33 mmHg; PO2 VBG 51 mmHg; pH VBG 7.49 (7.32-7.43)
[2021-01-02 12:12] LABS: Basophils Percent Auto 0.3 % (0-2); Eosinophils Absolute Auto 0.3 X10*3/uL (0.0-0.4); Eosinophils Percent Auto 2.5 % (0-4); Hematocrit 25.4 % (42-52); Hemoglobin 8.3 g/dl (14.0-18.0); Imm Gran Abs Auto 0.08 X10*3/uL (0.00-0.03); Imm Gran Pct Auto 0.6 % (0.0-0.4); Lymphocytes Absolute Auto 0.8 X10*3/uL (1.2-4.9); Lymphocytes Percent Auto 6.1 % (20-40); MANUAL DIFF FLAG NO; Mean Corpuscular HGB Conc 32.7 g/dl (31.0-36.0); Mean Corpuscular Hemoglobin 27.5 pg (27.0-33.0); Mean Corpuscular Volume 84.1 fL (80-98); Mean Platelet Volume 8.5 fL (9.4-12.4); Monocytes Absolute Auto 1.3 X10*3/uL (0.1-1.2); Monocytes Percent Auto 9.9 % (2-11); Neutrophils Absolute Auto 10.2 X10*3/uL (2.0-8.3); Neutrophils Percent Auto 80.6 % (45-73); Platelet Count 368 X10*3/uL (160-400); Red Blood Count 3.02 X10*6/uL (4.60-5.80); Red Cell Distribution Width 15.9 % (11.0-16.0); White Blood Count 12.7 X10*3/uL (4.8-10.8)
[2021-01-02 12:19] LABS: INTERNATIONAL NORM RATIO 1.2 (0.9-1.1); Prothrombin Time 14.7 SEC (10.8-13.0)
[2021-01-02 12:21] LABS: Partial Thromboplastin Time 38.3 SEC (24.1-38.0)
[2021-01-02 12:22] LABS: Ammonia 22 umol/L (13-55)
[2021-01-02] MEDS: Magnesium Sulfate/H2O 2 GM/50 ML PIGGYBACK IV (12:25)
[2021-01-02 12:29] LABS: COVID-19 Test Negative (Negative)
[2021-01-02] MEDS: Dextrose 50 % 25 GM/50 ML SYRINGE IVPUSH (12:32)
[2021-01-02 12:34] LABS: Lactic Acid 2.7 mmol/L (0.5-2.0)
[2021-01-02 12:38] LABS: Glucose, Whole Blood 54 mg/dL (60-115)
[2021-01-02 12:42] LABS: Ethanol < 10 mg/dL
[2021-01-02 12:44] LABS: Lipase 31 U/L (8-78)
[2021-01-02 12:56] LABS: Alanine Aminotransferase 15 U/L (0-40); Albumin Level 3.3 g/dL (3.5-5.0); Alkaline Phosphatase 127 U/L (39-117); Anion Gap 15 (12-20); Aspartate Amino Transferase 25 U/L (5-37); Bilirubin Direct 0.4 mg/dL (0.0-0.5); Bilirubin Total 0.7 mg/dL (0.0-1.0); Blood Urea Nitrogen 28 mg/dL (9-16); Carbon Dioxide 26 mmol/L (22-29); Chloride 98 mmol/L (96-108); Estimated Glomerular Filt Rate > 60; Glucose Random 51 mg/dL (60-115); Magnesium 1.7 mg/dL (1.6-2.6); Potassium 3.3 mmol/L (3.3-5.1); Sodium 136 mmol/L (135-145)
[2021-01-02 13:15] LABS: Glucose Urine UA NEG (NEG); Leukocyte Esterase Urine NEG (NEG); Nitrite Urine NEG (NEG); Urine Blood TRACE (NEG); Urine Ketones NEG (NEG); Urine Protein NEG (NEG-TRACE)
[2021-01-02 13:16] LABS: Amphetamine Screen Urine Not Detected (Not Detect); Appearance Urine CLEAR; Barbiturates, Urine Not Detected (Not Detect); Benzodiazepines Screen Urine Not Detected (Not Detect); Cannabinoid Screen Urine POSITIVE (Not Detect); Cocaine Screen Urine Not Detected (Not Detect); Color Urine STRAW; Opiate Screen Urine Not Detected (Not Detect); Phencyclidine Screen Urine Not Detected (Not Detect)
[2021-01-02 13:25] LABS: Glucose, Whole Blood 214 mg/dL (60-115)
[2021-01-02] MEDS: cefEPime HCl 1 GM in 0.9 % Sodium Chloride 50 ML IV (13:29)
[2021-01-02] MEDS: LORazepam 2 MG/ML VIAL 0.5 MG IVPUSH (13:30)
[2021-01-02 13:32] LABS: RBC Urine 0-2 /HPF (0); WBC Urine 0 /HPF (0-4)
[2021-01-02 14:02] LABS: Reflex Lactate? Lactic Acid Added
[2021-01-02 14:10] LABS: Glucose, Whole Blood 190 mg/dL (60-115)
[2021-01-02 15:17] LABS: Troponin-I High Sensitivity 45.9 ng/L (<3.5-35.0)
[2021-01-02 15:27] LABS: Glucose, Whole Blood 158 mg/dL (60-115)
[2021-01-02 15:32] LABS: ~Lactic Acid-LAB USE ONLY 2.2 mmol/L (0.5-2.0)
--- NOTE | 2021-01-02 15:43 | ECG_ITS ---
Test Reason : REPEAT Blood Pressure : / mmHG Vent. Rate : 064 BPM Atrial Rate : 064 BPM P-R Int : 172 ms QRS Dur : 106 ms QT Int : 524 ms P-R-T Axes : 084 -22 152 degrees QTc Int : 540 ms Normal sinus rhythm ST & T wave abnormality, consider anterolateral ischemia Abnormal ECG When compared with ECG of 02-JAN-2021 11:28, Fusion complexes are no longer Present Aberrant conduction is no longer Present ST no longer depressed in Lateral leads T wave inversion more evident in Anterior leads QT has lengthened Referred By: Bhavani Parks Electronically Signed By:Gustavo Mccollum
[2021-01-02] MEDS: Aspirin 81 MG TAB.CHEW 162 MG PO (15:55)
--- NOTE | 2021-01-02 16:59 | PC.NURSE ---
PT has been agitated, disoriented and restless. He has been asking for urinal, was straight cathed for 1200ml urine. HE continues to be restless and disoriented. Pt is refusing to take PO medications. Will uipdate provider.
--- NOTE | 2021-01-02 16:59 | PM.EVENT ---
Event Note Date of Service: 01/02/21 Event Note: Patient seen and examined independently and was present during hanson portion of E/M service. Agree with midlevel's history, physical, assessment, and plan. 50M presnted with metabolic encephalopathy Metabolic encephalopathy secondary to hypoglycemia +/-acute on chronic systolic CHF D10 infusion, monitor glucose Cardiology eval Echocardiogram
[2021-01-02 17:08] LABS: Reflex Lactate? 2 Y
--- NOTE | 2021-01-02 17:38 | P.HPHOSP_ITS ---
History of Present Illness Date of Service: 01/02/21 Chief Complaint: Fall 50 year old man presenting after being found down. Apparently a neighbor called EMS. he was found down with an abrasion to his nose and abrasions to his forearm. He was found to have a blood sugar of 42 with blood pressure as low as 91/52. he was given narcan, atropine and D10. He was fairly lethargic during the interview and did not offer any history. CXR showed hazy opacities are likely secondary to infectious/inflammatory small airways disease. He had no fever and only mild leukocytosis. initial lactic acid was 2.2, blood sugar did improve to 158. Initial troponin 18.0 with repeat of 45.9 and no acute EKG abnormalities. He will be admitted treatment of acute metabolic encephalopathy and hypoglycemia. Review of Systems Review of Systems: Yes Unobtainable due to mental status [facility] Medical History (Updated 01/02/21 @ 17:49 by Parvin Cordova NP) Acute on chronic anemia Acute on chronic combined systolic and diastolic congestive heart failure Asthma Bipolar 1 disorder BPH (benign prostatic hyperplasia) Cholelithiasis COPD (chronic obstructive pulmonary disease) Diabetes mellitus, type 2 GERD (gastroesophageal reflux disease) Hyperlipidemia Peripheral arterial disease Peripheral neuropathy Substance abuse Family History Father Chronic mental illness Hypertension Asthma Stroke Mother Asthma Diabetes Coronary artery disease Surgical History History of amputation History of laminectomy History of transurethral resection of prostate Hx of BKA Social History Household Members: None Alcohol intake: current Alcohol intake frequency: does not drink Alcohol type: beer Smoking Status: Never smoker Second Hand Smoke Exposure: No Use of substances other than those prescribed or required for medical reasons: Yes Substance Use Type: Heroin and Painkillers Substance Use Frequency: Chronic Longstanding Advance Directives: Yes Advance Directives on File: Yes Advance Directives Date on File: 11/24/20 service: No Current occupational status: disabled Meds Allergies Allergy/AdvReac Type Severity Reaction Status Date / Time vancomycin [VANCOMYCIN] Allergy Intermediate HIVES Verified 10/04/20 06:49 Chocolate Allergy Unknown Rash Verified 10/04/20 06:49 ciprofloxacin [From CIPRO] Allergy Unknown SWELLING Verified 10/04/20 06:49 ertapenem Allergy Unknown Hives Verified 10/04/20 06:49 hydrocortisone [Cipro HC] Allergy Unknown Unknown Verified 10/04/20 06:49 sulfamethoxazole Allergy Unknown rash Verified 10/04/20 06:49 [From BACTRIM] trimethoprim [From BACTRIM] Allergy Unknown rash Verified 10/04/20 06:49 turkey [TURKEY] Allergy Unknown RASH Verified 10/04/20 06:49 From INVANZ Allergy Intermediate HIVES Uncoded 10/04/20 06:49 choclate Allergy Unknown rash Uncoded 10/04/20 06:49 Active Medications: Current Medications Generic Name Dose Route Start Last Admin Trade Name Freq PRN Reason Stop Dose Admin Acetaminophen 650 mg 01/02/21 17:35 Acetaminophen 325 Mg Tablet PO Q6H PRN Pain, Mild (Pain Scale 1-3) Albuterol Sulfate 2.5 mg 01/02/21 17:35 Albuterol Sulfate (0.083%) 2.5 Mg/3 Ml Vial.Neb INHALE Q4H PRN Shortness Of Breath Or Wheezing Albuterol Sulfate 2 puff 01/02/21 17:35 Albuterol Sulfate 90 Mcg 8 Gm Inhaler INHALE Q4H PRN Shortness Of Breath Aspirin 81 mg 01/03/21 09:00 Aspirin Enteric Coated 81 Mg Tablet.Dr PO DAILY [facility] Atorvastatin Calcium 20 mg 01/02/21 21:00 Atorvastatin Calcium 20 Mg Tablet PO BEDTIME [facility] Carvedilol 6.25 mg 01/02/21 21:00 Carvedilol 6.25 Mg Tablet PO BID [facility] Protocol Clopidogrel Bisulfate 75 mg 01/03/21 09:00 Clopidogrel Bisulfate 75 Mg Tablet PO DAILY [facility] Ergocalciferol 1,250 mcg 01/02/21 17:45 Ergocalciferol (Vitamin D2) 1,250 Mcg Capsule PO QWEEK [facility] Famotidine 20 mg 01/02/21 21:00 Famotidine 20 Mg Tablet PO BID [facility] Fluticasone Propionate 1 spray 01/03/21 09:00 Fluticasone Propionate Nasal 16 Gm Home NOSTRIL-B DAILY [facility] Gabapentin 200 mg 01/02/21 21:00 Gabapentin 100 Mg Capsule PO TID [facility] Dextrose 1,000 mls @ 50 mls/hr 01/02/21 17:35 D10 IVCONT .Q20H [facility] Loratadine 10 mg 01/03/21 09:00 Loratadine 10 Mg Tablet PO DAILY [facility] Magnesium Oxide 400 mg 01/03/21 09:00 Magnesium Oxide 400 Mg Tablet PO DAILY [facility] Montelukast Sodium 10 mg 01/02/21 21:00 Montelukast Sodium 10 Mg Tablet PO BEDTIME [facility] Ondansetron HCl 4 mg 01/02/21 17:35 Ondansetron Hcl 4 Mg/2 Ml Vial IVPUSH Q8H PRN Nausea and Vomiting Pharmacy Consult 1 each 01/02/21 11:17 Consult Rx Perform Med Rec MISCELLANE ONCE PRN Consult order Polyethylene Glycol 17 gm 01/03/21 09:00 Polyethylene Glycol 3350 17 Gm Powd.Pack PO DAILY [facility] Senna 8.6 mg 01/02/21 17:35 Sennosides 8.6 Mg Tablet PO BEDTIME PRN Constipation Sodium Chloride 3 ml 01/03/21 00:00 0.9 % Sodium Chloride Flush 3 Ml Syringe IVFLUSH QSHIFT [facility] Tramadol HCl 50 mg 01/02/21 17:35 Tramadol Hcl 50 Mg Tablet PO BID PRN Pain Home Medications Medication Instructions Recorded Confirmed Last Taken Type FreeStyle Lite Strips 08/12/20 08/12/20 Unknown History albuterol sulfate 2 puff INHALATION Q4H PRN 08/12/20 01/02/21 Unknown History albuterol sulfate 2.5 mg INHALATION Q4H PRN 08/12/20 01/02/21 Unknown History blood-glucose meter [FreeStyle 08/12/20 08/12/20 Unknown History Egan Lite] cane 08/12/20 08/12/20 Unknown History famotidine [Pepcid] 20 mg PO BID 08/12/20 01/02/21 Unknown History lancets 08/12/20 08/12/20 Unknown History magnesium oxide [MagOx] 400 mg PO DAILY 08/12/20 01/02/21 Unknown History methadone 50 mg PO QAM 08/12/20 09/05/20 Unknown History pen needle, diabetic 08/12/20 08/12/20 Unknown History Eucerin 1 applic TOPICAL DAILY PRN 08/14/20 01/02/21 Unknown History Lantus U-100 Insulin 12 unit SUBCUT QPM 08/14/20 01/02/21 Unknown History aspirin 81 mg PO DAILY 08/14/20 01/02/21 Unknown History atorvastatin 20 mg PO BEDTIME 08/14/20 01/02/21 Unknown History carvedilol 6.25 mg PO BID 08/14/20 01/02/21 Unknown History cetirizine 10 mg PO DAILY 08/14/20 01/02/21 Unknown History clopidogrel 75 mg PO DAILY 08/14/20 01/02/21 Unknown History clotrimazole 1 applic TOPICAL TID 08/14/20 01/02/21 Unknown History ergocalciferol (vitamin D2) 1,250 mcg PO QWEEK 08/14/20 01/02/21 Unknown History fluticasone propionate [Flonase 1 spray INTRANASAL DAILY 08/14/20 01/02/21 Unknown History Allergy Relief] gabapentin 200 mg PO TID 08/14/20 01/02/21 Unknown History insulin lispro 5 unit SUBCUT TIDAC 08/14/20 01/02/21 Unknown History montelukast 10 mg PO BEDTIME 08/14/20 01/02/21 Unknown History polyethylene glycol 3350 [Miralax] 17 g PO DAILY 08/14/20 01/02/21 Unknown History sennosides [senna] 8.6 mg PO BEDTIME PRN 08/14/20 01/02/21 Unknown History spironolactone 12.5 mg PO DAILY 08/14/20 01/02/21 Unknown History tamsulosin 0.4 mg PO DAILY 08/14/20 01/02/21 Unknown History zinc sulfate 220 mg PO DAILY 08/14/20 01/02/21 Unknown History Narcan 4 mg INTRANASAL Q3M PRN 11/24/20 01/02/21 Unknown History tramadol 50 mg PO BID PRN 11/24/20 01/02/21 Unknown History Physical Exam Vital Signs and Narrative: Vital Signs: Last Vital Signs Temp 97.5 F 01/02/21 15:54 Pulse 68 01/02/21 16:02 Resp 16 01/02/21 16:02 BP 103/61 01/02/21 16:02 Pulse Ox 99 01/02/21 16:02 Body Mass Index 19.9 Appearing lethargic head is normocephalic atraumatic eyes pupils are PERRLA sclera is anicteric mouth throat mucous membranes are intact and dry neck is supple no lymphadenopathy, no JVD noted lung sounds normal expansion heart regular rate rhythm positive bowel sounds, abdomen is soft, nontender neuro patient opens eyes to name, no focal deficits Results Labs CBC and Chem 7: 01/02/21 11:55 01/02/21 11:55 Labs: Laboratory Results - last 24 hr 01/02/21 01/02/21 01/02/21 11:55 11:55 11:55 MCV 84.1 MCH 27.5 MCHC 32.7 RDW 15.9 Plt Count 368 MPV 8.5 L Immature Gran % (Auto) 0.6 H Neut % (Auto) 80.6 H Lymph % (Auto) 6.1 L Sawyer % (Auto) 9.9 Eos % (Auto) 2.5 Baso % (Auto) 0.3 Lymph # (Auto) 0.8 L Sawyer # (Auto) 1.3 H Eos # (Auto) 0.3 Baso # (Auto) 0.0 Abs Immat Gran (auto) 0.08 H Absolute Neuts (auto) 10.2 H Absolute Nucleated RBC 0.000 Nucleated RBC % (auto) 0.0 PT INR APTT VBG pH VBG pCO2 VBG pO2 VBG HCO3 VBG O2 Saturation VBG Base Excess Anion Gap 15 Estim Creat Clear Calc 60.0 Estimated GFR > 60 POC Glucose Random Glucose 51 L* Lactic Acid Lactic Acid Fup @ 2Hr Calcium 9.0 D Magnesium 1.7 Total Bilirubin 0.7 Direct Bilirubin 0.4 AST 25 ALT 15 Alkaline Phosphatase 127 H Ammonia Total Creatine Kinase 117 Troponin I High Sens Total Protein 9.0 H Albumin 3.3 L Lipase TSH 5.70 H Urine Color Urine Appearance Urine pH Ur Specific Dairy Urine Protein Urine Glucose (UA) Urine Ketones Urine Blood Urine Nitrite Ur Leukocyte Esterase Urine RBC Urine WBC Ur Squamous Epith Cells Urine Bacteria Urine Opiates Screen Ur Barbiturates Screen Ur Phencyclidine Scrn Ur Amphetamines Screen U Benzodiazepines Scrn Urine Cocaine Screen U Marijuana (THC) Screen Ethyl Alcohol COVID-19 (JAMILA) Negative COVID-19 Clin Com See Note 01/02/21 01/02/21 01/02/21 11:55 11:55 11:55 MCV MCH MCHC RDW Plt Count MPV Immature Gran % (Auto) Neut % (Auto) Lymph % (Auto) Sawyer % (Auto) Eos % (Auto) Baso % (Auto) Lymph # (Auto) Sawyer # (Auto) Eos # (Auto) Baso # (Auto) Abs Immat Gran (auto) Absolute Neuts (auto) Absolute Nucleated RBC Nucleated RBC % (auto) PT 14.7 H INR 1.2 H APTT 38.3 H VBG pH VBG pCO2 VBG pO2 VBG HCO3 VBG O2 Saturation VBG Base Excess Anion Gap Estim Creat Clear Calc Estimated GFR POC Glucose Random Glucose Lactic Acid 2.7 H* Lactic Acid Fup @ 2Hr Calcium Magnesium Total Bilirubin Direct Bilirubin AST ALT Alkaline Phosphatase Ammonia Total Creatine Kinase Troponin I High Sens Total Protein Albumin Lipase TSH Urine Color Urine Appearance Urine pH Ur Specific Dairy Urine Protein Urine Glucose (UA) Urine Ketones Urine Blood Urine Nitrite Ur Leukocyte Esterase Urine RBC Urine WBC Ur Squamous Epith Cells Urine Bacteria Urine Opiates Screen Ur Barbiturates Screen Ur Phencyclidine Scrn Ur Amphetamines Screen U Benzodiazepines Scrn Urine Cocaine Screen U Marijuana (THC) Screen Ethyl Alcohol < 10 COVID-19 (JAMILA) COVID-19 [place] 01/02/21 01/02/21 01/02/21 11:55 11:55 11:55 MCV MCH MCHC RDW Plt Count MPV Immature Gran % (Auto) Neut % (Auto) Lymph % (Auto) Sawyer % (Auto) Eos % (Auto) Baso % (Auto) Lymph # (Auto) Sawyer # (Auto) Eos # (Auto) Baso # (Auto) Abs Immat Gran (auto) Absolute Neuts (auto) Absolute Nucleated RBC Nucleated RBC % (auto) PT INR APTT VBG pH 7.49 H VBG pCO2 33 VBG pO2 51 VBG HCO3 25 VBG O2 Saturation 82.0 VBG Base Excess 2.8 Anion Gap Estim Creat Clear Calc Estimated GFR POC Glucose Random Glucose Lactic Acid Lactic Acid Fup @ 2Hr Calcium Magnesium Total Bilirubin Direct Bilirubin AST ALT Alkaline Phosphatase Ammonia Total Creatine Kinase Troponin I High Sens 18.0 Total Protein Albumin Lipase 31 TSH Urine Color Urine Appearance Urine pH Ur Specific Dairy Urine Protein Urine Glucose (UA) Urine Ketones Urine Blood Urine Nitrite Ur Leukocyte Esterase Urine RBC Urine WBC Ur Squamous Epith Cells Urine Bacteria Urine Opiates Screen Ur Barbiturates Screen Ur Phencyclidine Scrn Ur Amphetamines Screen U Benzodiazepines Scrn Urine Cocaine Screen U Marijuana (THC) Screen Ethyl Alcohol COVID-19 (JAMILA) COVID-OxiCool 01/02/21 01/02/21 01/02/21 11:56 12:02 12:25 MCV MCH MCHC RDW Plt Count MPV Immature Gran % (Auto) Neut % (Auto) Lymph % (Auto) Sawyer % (Auto) Eos % (Auto) Baso % (Auto) Lymph # (Auto) Sawyer # (Auto) Eos # (Auto) Baso # (Auto) Abs Immat Gran (auto) Absolute Neuts (auto) Absolute Nucleated RBC Nucleated RBC % (auto) PT INR APTT VBG pH VBG pCO2 VBG pO2 VBG HCO3 VBG O2 Saturation VBG Base Excess Anion Gap Estim Creat Clear Calc Estimated GFR POC Glucose 53 L* 54 L* Random Glucose Lactic Acid Lactic Acid Fup @ 2Hr Calcium Magnesium Total Bilirubin Direct Bilirubin AST ALT Alkaline Phosphatase Ammonia 22 Total Creatine Kinase Troponin I High Sens Total Protein Albumin Lipase TSH Urine Color Urine Appearance Urine pH Ur Specific Dairy Urine Protein Urine Glucose (UA) Urine Ketones Urine Blood Urine Nitrite Ur Leukocyte Esterase Urine RBC Urine WBC Ur Squamous Epith Cells Urine Bacteria Urine Opiates Screen Ur Barbiturates Screen Ur Phencyclidine Scrn Ur Amphetamines Screen U Benzodiazepines Scrn Urine Cocaine Screen U Marijuana (THC) Screen Ethyl Alcohol COVID-19 (JAMILA) COVID-19 Grocio 01/02/21 01/02/21 01/02/21 12:43 12:43 13:21 MCV MCH MCHC RDW Plt Count MPV Immature Gran % (Auto) Neut % (Auto) Lymph % (Auto) Sawyer % (Auto) Eos % (Auto) Baso % (Auto) Lymph # (Auto) Sawyer # (Auto) Eos # (Auto) Baso # (Auto) Abs Immat Gran (auto) Absolute Neuts (auto) Absolute Nucleated RBC Nucleated RBC % (auto) PT INR APTT VBG pH VBG pCO2 VBG pO2 VBG HCO3 VBG O2 Saturation VBG Base Excess Anion Gap Estim Creat Clear Calc Estimated GFR POC Glucose 214 H Random Glucose Lactic Acid Lactic Acid Fup @ 2Hr Calcium Magnesium Total Bilirubin Direct Bilirubin AST ALT Alkaline Phosphatase Ammonia Total Creatine Kinase Troponin I High Sens Total Protein Albumin Lipase TSH Urine Color STRAW Urine Appearance CLEAR Urine pH 7.0 Ur Specific Dairy 1.010 Urine Protein NEG Urine Glucose (UA) NEG Urine Ketones NEG Urine Blood TRACE Urine Nitrite NEG Ur Leukocyte Esterase NEG Urine RBC 0-2 Urine WBC 0 Ur Squamous Epith Cells NONE Urine Bacteria NONE Urine Opiates Screen Not Detected Ur Barbiturates Screen Not Detected Ur Phencyclidine Scrn Not Detected Ur Amphetamines Screen Not Detected U Benzodiazepines Scrn Not Detected Urine Cocaine Screen Not Detected U Marijuana (THC) Screen POSITIVE H Ethyl Alcohol COVID-19 (JAMILA) COVID-19 [place] Com 01/02/21 01/02/21 01/02/21 13:59 14:42 15:06 MCV MCH MCHC RDW Plt Count MPV Immature Gran % (Auto) Neut % (Auto) Lymph % (Auto) Sawyer % (Auto) Eos % (Auto) Baso % (Auto) Lymph # (Auto) Sawyer # (Auto) Eos # (Auto) Baso # (Auto) Abs Immat Gran (auto) Absolute Neuts (auto) Absolute Nucleated RBC Nucleated RBC % (auto) PT INR APTT VBG pH VBG pCO2 VBG pO2 VBG HCO3 VBG O2 Saturation VBG Base Excess Anion Gap Estim Creat Clear Calc Estimated GFR POC Glucose 190 H Random Glucose Lactic Acid Lactic Acid Fup @ 2Hr 2.2 H* Calcium Magnesium Total Bilirubin Direct Bilirubin AST ALT Alkaline Phosphatase Ammonia Total Creatine Kinase Troponin I High Sens 45.9 H D Total Protein Albumin Lipase TSH Urine Color Urine Appearance Urine pH Ur Specific Dairy Urine Protein Urine Glucose (UA) Urine Ketones Urine Blood Urine Nitrite Ur Leukocyte Esterase Urine RBC Urine WBC Ur Squamous Epith Cells Urine Bacteria Urine Opiates Screen Ur Barbiturates Screen Ur Phencyclidine Scrn Ur Amphetamines Screen U Benzodiazepines Scrn Urine Cocaine Screen U Marijuana (THC) Screen Ethyl Alcohol COVID-19 (JAMILA) COVID-19 [place] Com 01/02/21 15:20 MCV MCH MCHC RDW Plt Count MPV Immature Gran % (Auto) Neut % (Auto) Lymph % (Auto) Sawyer % (Auto) Eos % (Auto) Baso % (Auto) Lymph # (Auto) Sawyer # (Auto) Eos # (Auto) Baso # (Auto) Abs Immat Gran (auto) Absolute Neuts (auto) Absolute Nucleated RBC Nucleated RBC % (auto) PT INR APTT VBG pH VBG pCO2 VBG pO2 VBG HCO3 VBG O2 Saturation VBG Base Excess Anion Gap Estim Creat Clear Calc Estimated GFR POC Glucose 158 H Random Glucose Lactic Acid Lactic Acid Fup @ 2Hr Calcium Magnesium Total Bilirubin Direct Bilirubin AST ALT Alkaline Phosphatase Ammonia Total Creatine Kinase Troponin I High Sens Total Protein Albumin Lipase TSH Urine Color Urine Appearance Urine pH Ur Specific Dairy Urine Protein Urine Glucose (UA) Urine Ketones Urine Blood Urine Nitrite Ur Leukocyte Esterase Urine RBC Urine WBC Ur Squamous Epith Cells Urine Bacteria Urine Opiates Screen Ur Barbiturates Screen Ur Phencyclidine Scrn Ur Amphetamines Screen U Benzodiazepines Scrn Urine Cocaine Screen U Marijuana (THC) Screen Ethyl Alcohol COVID-19 (JAMILA) COVID-19 Clin Com Imaging Radiologist's Impressions: Impressions Head CT 01/02/21 11:19 IMPRESSION: No evidence of pneumonia. Enlarged heart. Coronary artery calcification. Gallstones. Improved right medial chest wall soft tissue thickening and soft tissue thickening superficial to and deep to the sternum. Mild T9 vertebral body compression fracture. EXAMINATION: Head CT without contrast CLINICAL INFORMATION: Weakness COMPARISON: Previous head CT most recent February 2011 TECHNIQUE: Axial images through the brain without contrast. Sagittal and coronal reconstructions on the technologist workstation were performed. Patient dose 700 mg/cm. FINDINGS: There is no evidence of an extra-axial collection. There is no evidence of intra-axial or extra-axial hemorrhage. The ventricles and extra-axial CSF spaces are prominent suggestive of mild generalized atrophy. There is nonspecific periventricular white matter disease. No mass, mass effect or infarct is seen. Review of bone windows is normal. No skull fracture is seen. There is a soft tissue opacification of the left frontal sinus. Visualized paranasal sinuses, mastoid air cells and middle ears are otherwise clear. IMPRESSION: No acute findings. Generalized atrophy and nonspecific periventricular white matter disease. Left frontal sinus disease. Chest X-Ray 01/02/21 11:20 IMPRESSION: Hazy opacities are likely secondary to infectious/inflammatory small airways disease. Chest CT 01/02/21 12:31 IMPRESSION: No evidence of pneumonia. Enlarged heart. Coronary artery calcification. Gallstones. Improved right medial chest wall soft tissue thickening and soft tissue thickening superficial to and deep to the sternum. Mild T9 vertebral body compression fracture. EXAMINATION: Head CT without contrast CLINICAL INFORMATION: Weakness COMPARISON: Previous head CT most recent February 2011 TECHNIQUE: Axial images through the brain without contrast. Sagittal and coronal reconstructions on the technologist workstation were performed. Patient dose 700 mg/cm. FINDINGS: There is no evidence of an extra-axial collection. There is no evidence of intra-axial or extra-axial hemorrhage. The ventricles and extra-axial CSF spaces are prominent suggestive of mild generalized atrophy. There is nonspecific periventricular white matter disease. No mass, mass effect or infarct is seen. Review of bone windows is normal. No skull fracture is seen. There is a soft tissue opacification of the left frontal sinus. Visualized paranasal sinuses, mastoid air cells and middle ears are otherwise clear. IMPRESSION: No acute findings. Generalized atrophy and nonspecific periventricular white matter disease. Left frontal sinus disease. Assessment and Plan (1) Hypoglycemia: Status: Acute 50-year-old man admitted after having fall and found to have hypoglycemia. Hx of substance abuse and CHF. Metabolic encephalopathy. Secondary to hypoglycemia. Correct blood sugar and monitor neuro status. Hypoglycemic. D10. Follow blood sugars closely. ADA diet. Hold Lantus. Heart failure with reduced ejection fraction. IV Lasix, Cardiology consultation, echocardiogram. Hypotension. Hold antihypertensive medications. Follow blood pressure closely. Coronary artery disease. Continue aspirin, statin and beta-cass. Asthma. Continue albuterol. Substance abuse. Encouraged cessation. On methadone at home. Nurse to verify dose. DVT prophylaxis with Lovenox. Case discussed with Dr. Brown Full code.
[2021-01-02] MEDS: Enoxaparin Sodium 40 MG/0.4 ML SYRINGE SUBCUT (18:28)
[2021-01-02] MEDS: Dextrose 5 % and 0.45 % NaCl 1,000 ML 100 ML IVCONT (18:49)
--- NOTE | 2021-01-02 19:50 | PC.NURSE ---
hospitalist called to report the low bp and is busy at this time.
[2021-01-02] MEDS: Dextrose 5 % and 0.9 % NaCl 1,000 ML 80 ML IVCONT (20:12)
[2021-01-02] MEDS: 0.9 % Sodium Chloride 500 ML IV ×2 (20:13→21:37)
--- NOTE | 2021-01-02 20:19 | PC.NURSE ---
two tubes of blood found scanned from 1700 and not sent. lab called and sent down and will call back if need a redraw to be done.
--- NOTE | 2021-01-02 21:02 | PC.NURSE ---
ns bolus completed and bp dropping slowly 80/41
--- NOTE | 2021-01-02 21:15 | PC.NURSE ---
hospitalist called and made aware of low bp after 500ns bolus completed. reviewed pt labs/chart and further orders being placed. increase in inf rate, ct, hospitalist made aware of pt necrotic left heal, administer zosyn carefully due to pt has multiple allergies in the past.
[2021-01-02] MEDS: Famotidine 20 MG TABLET PO (21:37)
[2021-01-02] MEDS: Atorvastatin Calcium 20 MG TABLET PO (21:37)
[2021-01-02 21:41] LABS: Troponin-I High Sensitivity 156.3 ng/L (<3.5-35.0)
--- NOTE | 2021-01-02 21:49 | P.EN_ITS ---
Event Note Date of Service: 01/03/21 Event Note: Altered mental status/heroin overdose: Has received Narcan EN route. Patient currently protecting airways okay. Saturating 99% on room air. But still drowsy. Bradycardia: Patient received atropine by the EMS. Currently heart rate is in 60s. Sepsis: Likely in the setting of diabetic foot infection. Patient has blood pressure of 86/40. Given normal saline bolus. Continue maintenance fluids. Patient drowsy but arousable. Protecting airway is okay. Lactate elevated. ? Diabetic foot infection: Noted to have left foot necrosis. Will obtain a CT of the foot. Id consult and General surgery consult. Continue IV clindamycin and Zosyn.-> discussed with the pharmacist, patient tolerated these medications in the past. Elevated troponins: Trop->18->45->156; Patient denies any chest pain. EKG ?ischemic.Discussed with Dr Mccollum, as patient was slightly anemic and has guaiac-positive stool, recommended no heparin drip. Echocardiogram Hypotension: Patient blood pressure has been labile. Discussed with ID attending, patient has been accepted to ICU. Guaiac-positive stool: will monitor serial H&H. Had antiplatelets and anticoagulation. GI consult. IV ppi. Anemia: Likely in the setting of GI bleed. Patient follow-up hemoglobin alyssa pped to 6.5. To obtain blood consent and blood transfusion.-defer to the ICU team.
[2021-01-02 22:18] LABS: B Type Natriuretic Peptide 997 pg/mL (<100)
--- NOTE | 2021-01-02 22:38 | PC.NURSE ---
PT C/O DIFFICULTY URINATING, STS HAS HAD PROBLEMS X1 YEAR SINCE HAVING PROSTATE SX, STS IS ABLE TO POSITION SELF IN VERY SPECIFIC WAY AT HOME WHERE ABLE TO VOID BUT STILL W/ DIFFICULTY. PT UNABLE TO VOID MORE THAN A FEW CC'S USING URINAL DESPITE ATTEMPTS TO POSITION PT IN ASSISTIVE WAY IN BED. PT BLADDER SCANNED FOR >1L, HOSPITALIST CONTACTED REGARDING ISSUE.
[2021-01-02 22:39] LABS: OBS1 POS (NEG)
[2021-01-02 22:40] LABS: OBS Int Ctl Valid YES
[2021-01-02] MEDS: Montelukast Sodium 10 MG TABLET PO (22:55)
[2021-01-02] MEDS: Clindamycin Phosphate/D5W 600 MG/50 ML PIGGYBACK 100 MG IV (22:56)
[2021-01-02] MEDS: iohexoL 350 MG/ML 100 ML INFUS..BTL 85 ML IV (23:46)
[2021-01-03] VITALS (17 sets, daily range): BP systolic 88–133; BP diastolic 42–76; PULSE 54–74; RESP 12–17; TEMP 36.6–37.1; O2SAT 96–100
--- NOTE | 2021-01-03 | ECG_ITS ---
Test Reason : r/o VT Blood Pressure : / mmHG Vent. Rate : 069 BPM Atrial Rate : 069 BPM P-R Int : 176 ms QRS Dur : 108 ms QT Int : 442 ms P-R-T Axes : 077 -25 166 degrees QTc Int : 473 ms Normal sinus rhythm ST & T wave abnormality, consider lateral ischemia Abnormal ECG When compared with ECG of 02-JAN-2021 15:40, T wave inversion less evident in Anterior leads QT has shortened Referred By: Michael Cross Electronically Signed By:ROHAN VEGA MD
[2021-01-03 00:01] LABS: Basophils Percent Auto 0.1 % (0-2); Eosinophils Percent Auto 0.2 % (0-4); Hematocrit 21.2 % (42-52); Imm Gran Abs Auto 0.06 X10*3/uL (0.00-0.03); Imm Gran Pct Auto 0.5 % (0.0-0.4); Lymphocytes Absolute Auto 0.6 X10*3/uL (1.2-4.9); Lymphocytes Percent Auto 4.9 % (20-40); MANUAL DIFF FLAG SCAN; Mean Corpuscular HGB Conc 32.5 g/dl (31.0-36.0); Mean Corpuscular Hemoglobin 27.8 pg (27.0-33.0); Mean Corpuscular Volume 85.5 fL (80-98); Mean Platelet Volume 8.4 fL (9.4-12.4); Monocytes Absolute Auto 0.7 X10*3/uL (0.1-1.2); Monocytes Percent Auto 6.7 % (2-11); Neutrophils Absolute Auto 9.7 X10*3/uL (2.0-8.3); Neutrophils Percent Auto 87.6 % (45-73); Platelet Count 292 X10*3/uL (160-400); Red Blood Count 2.48 X10*6/uL (4.60-5.80); Red Cell Distribution Width 15.9 % (11.0-16.0); SCAN SMEAR FLAG 1; White Blood Count 11.1 X10*3/uL (4.8-10.8)
[2021-01-03 00:14] LABS: PTT Heparin Drip 42.9 SEC (53-77.9)
[2021-01-03 00:15] LABS: Hemoglobin 6.9 g/dl (14.0-18.0)
[2021-01-03 00:16] LABS: SLIDE REVIEW VERIFIED
[2021-01-03 00:25] LABS: Anion Gap 15 (12-20); Blood Urea Nitrogen 26 mg/dL (9-16); Calcium 7.8 mg/dL (8.4-10.2); Carbon Dioxide 24 mmol/L (22-29); Chloride 99 mmol/L (96-108); Estimated Glomerular Filt Rate > 60; Glucose Random 160 mg/dL (60-115); Potassium 3.7 mmol/L (3.3-5.1); Sodium 134 mmol/L (135-145)
[2021-01-03 00:56] LABS: Basophils Percent Auto 0.2 % (0-2); Eosinophils Percent Auto 0.4 % (0-4); Imm Gran Abs Auto 0.07 X10*3/uL (0.00-0.03); Imm Gran Pct Auto 0.6 % (0.0-0.4); Lymphocytes Absolute Auto 0.6 X10*3/uL (1.2-4.9); Lymphocytes Percent Auto 5.3 % (20-40); MANUAL DIFF FLAG SCAN; Mean Corpuscular HGB Conc 32.3 g/dl (31.0-36.0); Mean Corpuscular Hemoglobin 27.3 pg (27.0-33.0); Mean Corpuscular Volume 84.5 fL (80-98); Mean Platelet Volume 8.3 fL (9.4-12.4); Monocytes Absolute Auto 0.8 X10*3/uL (0.1-1.2); Monocytes Percent Auto 7.3 % (2-11); Neutrophils Absolute Auto 9.7 X10*3/uL (2.0-8.3); Neutrophils Percent Auto 86.2 % (45-73); Platelet Count 258 X10*3/uL (160-400); Red Blood Count 2.38 X10*6/uL (4.60-5.80); SCAN SMEAR FLAG 1; White Blood Count 11.3 X10*3/uL (4.8-10.8)
[2021-01-03 00:58] LABS: Hematocrit 20.1 % (42-52); Hemoglobin 6.5 g/dl (14.0-18.0)
[2021-01-03 01:36] LABS: Phosphorus 3.5 mg/dL (2.7-4.5)
--- NOTE | 2021-01-03 01:47 | PC.NURSE ---
hospitalist at bedside consent for transfusion of blood prod signed with hospitalist at bedside. pt garcia cath inserted with no difficulty, 600cc immediate output. bp at this time 109/49
[2021-01-03 02:01] LABS: Glucose, Whole Blood 129 mg/dL (60-115)
--- NOTE | 2021-01-03 02:04 | PC.NURSE ---
pt ivf stopped icu provider at bedside. pt bp at this time after 1200 output in garcia cath 104/53
--- NOTE | 2021-01-03 02:40 | PC.NURSE ---
blood products requested from lab and waiting arrival. tranexamic acid not to be infused untill transfer to icu.
[2021-01-03] MEDS: Piperacillin Sodium/Tazobactam 3.375 GM in 0.9 % Sodium Chloride 50 ML IV (04:35)
--- NOTE | 2021-01-03 04:41 | P.EN_ITS ---
Event Note Date of Service: 01/03/21 Event Note: A 50 years old male with past medical history of diabetes, CHF, as thma, history substance abuse who presented to the emergency room after apparently being found down, with blood sugars of 42. He was admitted into hospital medicine for metabolic encephalopathy and hypoglycemia. He did developed NSTEMI and was started on heparin drip. Overnight However, hypotensive, with a significant drop in hemoglobin to 6.5 from 9.2 earlier on today. His stool occult Is positive. Requiring ICU level care due to hypotension. Source hypertension could be GI / chronic left foot ulcer On my assessment patient is alert, in no apparent distress. On room air, Lungs CTA, with normal lung expansion. S1-S2. Sinus rhythm on monitor. Blood pressure stable 116/51. Plan: Will avoid large amount of fluids due to patient history of heart failure. Discontinue heparin drip due to current GI bleed Infuse x2 RBCs Continue IV Zosyn GI Consult
--- NOTE | 2021-01-03 05:27 | PC.NURSE ---
pt christine first unit of blood and request for 2nd unit to be collected to infuse. pt bp improved, sat 100% on room air. pt urine output within normal limits total in bag 1400cc.
--- NOTE | 2021-01-03 05:29 | PC.NURSE ---
icu provider Opal oked to infuse tranexamic acid in the ed.
--- NOTE | 2021-01-03 07:42 | P.CNGI_ITS ---
History of Present Illness Data of Consult Service Date: 01/03/21 Requesting physician: Ronald Mccullough Primary Care Provider: [facility] Reason for consult: anemia 50 year old man w hx of PAD, foot ulcer, vertebral fracture, cardiomyopathy with EF of 15-20% and opiate abuse who I am seeing for assessment of anemia. He was admitted after being found down by a neighbor. He was hypotensive and hypoglycemic and given narcan, atropine and D10. Labs revealed elevated trop, heparin not given as hgb was low. Today he is more alert, and awake. He has some upper abdominal pain, mild nausea, denies melena, or rectal bleeding, no hematuria, no episataxis, no bleeding from ulcerated wound on sole of left foot. He denies havign had EGD ro colonoscopy before. No taking nsaids but has been on aspirin and plavix Denies taking any illegal drugs, no alcohol, only on methadone. Review of Systems Review of Systems: Yes all other systems are reviewed and are negative [facility] Past Medical History Medical History (Updated 01/03/21 @ 14:13 by J Carols Mendez MD) Acute on chronic anemia Acute on chronic combined systolic and diastolic congestive heart failure Asthma Bipolar 1 disorder BPH (benign prostatic hyperplasia) Cholelithiasis COPD (chronic obstructive pulmonary disease) Diabetes mellitus, type 2 GERD (gastroesophageal reflux disease) Hyperlipidemia Peripheral arterial disease Peripheral neuropathy Substance abuse Family History Family History Father Chronic mental illness Hypertension Asthma Stroke Mother Asthma Diabetes Coronary artery disease Surgical History Surgical History History of amputation History of laminectomy History of transurethral resection of prostate Hx of BKA Social History Social History Household Members: None Alcohol intake: current Alcohol intake frequency: does not drink Alcohol type: beer Smoking Status: Never smoker Second Hand Smoke Exposure: No Use of substances other than those prescribed or required for medical reasons: Yes Substance Use Type: Heroin and Painkillers Substance Use Frequency: Chronic Longstanding Advance Directives: Yes Advance Directives on File: Yes Advance Directives Date on File: 11/24/20 service: No Current occupational status: disabled Meds Allergies Allergy/AdvReac Type Severity Reaction Status Date / Time ertapenem Allergy Intermediate Hives Verified 01/02/21 20:04 vancomycin [VANCOMYCIN] Allergy Intermediate HIVES Verified 10/04/20 06:49 Chocolate Allergy Unknown Rash Verified 10/04/20 06:49 ciprofloxacin [From CIPRO] Allergy Unknown SWELLING Verified 10/04/20 06:49 hydrocortisone [Cipro HC] Allergy Unknown Unknown Verified 10/04/20 06:49 sulfamethoxazole Allergy Unknown rash Verified 10/04/20 06:49 [From BACTRIM] trimethoprim [From BACTRIM] Allergy Unknown rash Verified 10/04/20 06:49 turkey [TURKEY] Allergy Unknown RASH Verified 10/04/20 06:49 Active Medications: Current Medications Generic Name Dose Route Start Last Admin Trade Name Freq PRN Reason Stop Dose Admin Acetaminophen 650 mg 01/02/21 17:35 Acetaminophen 325 Mg Tablet PO Q6H PRN Pain, Mild (Pain Scale 1-3) Albuterol Sulfate 2.5 mg 01/02/21 17:35 Albuterol Sulfate (0.083%) 2.5 Mg/3 Ml Vial.Neb INHALE Q4H PRN Shortness Of Breath Or Wheezing Albuterol Sulfate 2 puff 01/02/21 17:35 Albuterol Sulfate 90 Mcg 8 Gm Inhaler INHALE Q4H PRN Shortness Of Breath Atorvastatin Calcium 20 mg 01/02/21 21:00 01/02/21 21:37 Atorvastatin Calcium 20 Mg Tablet PO 20 mg BEDTIME VENTURA Administration Piperacillin Sod/Tazobactam 50 mls @ 100 mls/hr 01/02/21 22:00 01/03/21 06:03 Sod 3.375 gm/ Sodium Chloride IV Infused Q6H [facility] Infusion Insulin Human Lispro 0 unit 01/03/21 01:15 Insulin Lispro 100 Unit/Ml 3 Ml Vial SUBCUT Q6H [facility] Ondansetron HCl 4 mg 01/02/21 17:35 Ondansetron Hcl 4 Mg/2 Ml Vial IVPUSH Q8H PRN Nausea and Vomiting Pantoprazole Sodium 40 mg 01/03/21 06:30 Pantoprazole Sodium 40 Mg/10 Ml Vial IVPUSH DAILY@0630 [facility] Pharmacy Consult 1 each 01/02/21 11:17 Consult Rx Perform Med Rec MISCELLANE ONCE PRN Consult order Sodium Chloride 3 ml 01/03/21 00:00 01/03/21 02:07 0.9 % Sodium Chloride Flush 3 Ml Syringe IVFLUSH Not Given QSHIFT [facility] Home Medications Medication Instructions Recorded Confirmed Last Taken Type FreeStyle Lite Strips 08/12/20 08/12/20 Unknown History albuterol sulfate 2 puff INHALATION Q4H PRN 08/12/20 01/02/21 Unknown History albuterol sulfate 2.5 mg INHALATION Q4H PRN 08/12/20 01/02/21 Unknown History blood-glucose meter [FreeStyle 08/12/20 08/12/20 Unknown History [place] Lite] cane 08/12/20 08/12/20 Unknown History famotidine [Pepcid] 20 mg PO BID 08/12/20 01/02/21 Unknown History lancets 08/12/20 08/12/20 Unknown History magnesium oxide [MagOx] 400 mg PO DAILY 08/12/20 01/02/21 Unknown History methadone 50 mg PO QAM 08/12/20 09/05/20 Unknown History pen needle, diabetic 08/12/20 08/12/20 Unknown History Eucerin 1 applic TOPICAL DAILY PRN 08/14/20 01/02/21 Unknown History Lantus U-100 Insulin 12 unit SUBCUT QPM 08/14/20 01/02/21 Unknown History aspirin 81 mg PO DAILY 08/14/20 01/02/21 Unknown History atorvastatin 20 mg PO BEDTIME 08/14/20 01/02/21 Unknown History carvedilol 6.25 mg PO BID 08/14/20 01/02/21 Unknown History cetirizine 10 mg PO DAILY 08/14/20 01/02/21 Unknown History clopidogrel 75 mg PO DAILY 08/14/20 01/02/21 Unknown History clotrimazole 1 applic TOPICAL TID 08/14/20 01/02/21 Unknown History ergocalciferol (vitamin D2) 1,250 mcg PO QWEEK 08/14/20 01/02/21 Unknown History fluticasone propionate [Flonase 1 spray INTRANASAL DAILY 08/14/20 01/02/21 Unk makn History Allergy Relief] gabapentin 200 mg PO TID 08/14/20 01/02/21 Unknown History insulin lispro 5 unit SUBCUT TIDAC 08/14/20 01/02/21 Unknown History montelukast 10 mg PO BEDTIME 08/14/20 01/02/21 Unknown History polyethylene glycol 3350 [Miralax] 17 g PO DAILY 08/14/20 01/02/21 Unknown History sennosides [senna] 8.6 mg PO BEDTIME PRN 08/14/20 01/02/21 Unknown History spironolactone 12.5 mg PO DAILY 08/14/20 01/02/21 Unknown History tamsulosin 0.4 mg PO DAILY 08/14/20 01/02/21 Unknown History zinc sulfate 220 mg PO DAILY 08/14/20 01/02/21 Unknown History Narcan 4 mg INTRANASAL Q3M PRN 11/24/20 01/02/21 Unknown History tramadol 50 mg PO BID PRN 11/24/20 01/02/21 Unknown History Physical Exam Vital Signs: Vital Signs: Last Vital Signs Temp 98.3 F 01/03/21 06:58 Pulse 67 01/03/21 06:58 Resp 14 01/03/21 06:58 BP 113/57 L 01/03/21 06:58 Pulse Ox 100 01/03/21 06:00 Body Mass Index 19.9 Const: General: ill appearing and poor hygiene Orientation/consciousness: patient oriented x3 Limitations: other limitations (Right BKA) HENMT: Head: Yes normal to inspection Eyes: General: appearance normal, both eyes and all related structures Neck: Neck: Yes normal visual inspection, Yes full ROM and Yes no JVD Resp: Effort & Inspection: normal respiratory effort, no stridor and not tachypneic Cardio: Jugular venous distension: no JVD Rate: regular rate Rhythm: regular rhythm Heart sounds: S1 normal heart sound present and S2 normal heart sound present GI: Inspection: Yes normal to inspection Palpation (GI): Soft to palpation and Tenderness to palpation present (GI) in the epigastrum Auscultation: normal bowel sounds Skin: General skin exam: no rashes or lesions noted, dry skin, no ecchymosis and no erythema Neuro: General: patient oriented x3 Extrem: Left lower extremity: lower leg (Right BKA, left chronic skin necrosis, no erythema) Psych: Appearance: grossly normal Results Labs CBC & Chem 7: 01/03/21 07:56 01/03/21 07:56 Labs: Short CBC 01/02/21 01/02/21 01/03/21 Range/Units 11:55 23:53 00:47 WBC 12.7 H 11.1 H 11.3 H (4.8-10.8) X10*3/uL Hgb 8.3 L 6.9 L* 6.5 L* (14.0-18.0) g/dl Hct 25.4 L 21.2 L 20.1 L* (42-52) % Plt Count 368 292 258 (160-400) X10*3/uL BMP 01/02/21 01/02/21 11:55 23:53 Sodium 136 134 L Potassium 3.3 3.7 Chloride 98 99 Carbon Dioxide 26 24 BUN 28 H 26 H Creatinine 1.14 1.18 Calcium 9.0 D 7.8 L D Cardiac Enzymes 01/02/21 Range/Units 11:55 Total Creatine Kinase 117 (38-174) U/L Liver Function 01/02/21 Range/Units 11:55 Total Bilirubin 0.7 (0.0-1.0) mg/dL Direct Bilirubin 0.4 (0.0-0.5) mg/dL AST 25 (5-37) U/L ALT 15 (0-40) U/L Alkaline Phosphatase 127 H (39-117) U/L Albumin 3.3 L (3.5-5.0) g/dL Urine 01/02/21 Range/Units 12:43 Urine Color STRAW Urine Appearance CLEAR Urine pH 7.0 (5.0-8.0) Ur Specific [place] 1.010 (1.005-1.025) Urine Protein NEG (NEG-TRACE) MG/DL Urine Glucose (UA) NEG (NEG) MG/DL ECG Attestation: I personally reviewed and interpreted this ECG as follows: Prior ECG tracings: available for review Interpretation: Qt prolonged, LAD, anterolateral changes Assessment and Plan (1) Acute on chronic anemia: Status: Acute 1/ Acute on chronic blood loss anemia, but no evidence of overt GI bleeding at this time, but does endorse epigastric and upper abdominal pain. He could have gastritis or ulceration from ASA use. There may also be anemia of chronic disease from his chronically infected non healing heel ulcer 2/ Acute coronary syndrome, possibly from hypotension and anemia PLAN: 1/ Given his low EF would prefer to manage conservatively, and use carafate with BID pantoprazole 40 mg IV, if HGB stable and pain improves then can convert to PO 2/ If sx persist and HGB tracks further down then EGD, possibly colonoscopy as well 3/ would check ferritin, b12, folate, LDH, haptoglobin and peripheral smear, retics
[2021-01-03 07:52] LABS: Glucose, Whole Blood 47 mg/dL (60-115)
[2021-01-03] MEDS: Dextrose 50 % 25 GM/50 ML SYRINGE IVPUSH (07:59)
[2021-01-03] MEDS: Pantoprazole Sodium 40 MG/10 ML VIAL IVPUSH ×2 (08:07→16:51)
[2021-01-03 08:12] LABS: Basophils Percent Auto 0.2 % (0-2); Eosinophils Absolute Auto 0.2 X10*3/uL (0.0-0.4); Eosinophils Percent Auto 1.3 % (0-4); Hematocrit 27.5 % (42-52); Hemoglobin 8.8 g/dl (14.0-18.0); Imm Gran Abs Auto 0.05 X10*3/uL (0.00-0.03); Imm Gran Pct Auto 0.4 % (0.0-0.4); Lymphocytes Absolute Auto 0.4 X10*3/uL (1.2-4.9); Lymphocytes Percent Auto 3.2 % (20-40); MANUAL DIFF FLAG SCAN; Mean Corpuscular Hemoglobin 27.6 pg (27.0-33.0); Mean Corpuscular Volume 86.2 fL (80-98); Mean Platelet Volume 8.2 fL (9.4-12.4); Monocytes Absolute Auto 0.9 X10*3/uL (0.1-1.2); Monocytes Percent Auto 7.5 % (2-11); Neutrophils Absolute Auto 10.5 X10*3/uL (2.0-8.3); Neutrophils Percent Auto 87.4 % (45-73); Platelet Count 264 X10*3/uL (160-400); Red Blood Count 3.19 X10*6/uL (4.60-5.80); Red Cell Distribution Width 14.9 % (11.0-16.0); SCAN SMEAR FLAG 1
[2021-01-03 08:20] LABS: Glucose, Whole Blood 151 mg/dL (60-115)
[2021-01-03 08:28] LABS: SLIDE REVIEW VERIFIED
[2021-01-03 08:42] LABS: Anion Gap 12 (12-20); Blood Urea Nitrogen 23 mg/dL (9-16); Calcium 7.9 mg/dL (8.4-10.2); Carbon Dioxide 27 mmol/L (22-29); Chloride 101 mmol/L (96-108); Creatinine Clr Calc Pharmacy 64.5; Estimated Glomerular Filt Rate > 60; Glucose Random 192 mg/dL (60-115); Potassium 3.7 mmol/L (3.3-5.1); Sodium 136 mmol/L (135-145)
--- NOTE | 2021-01-03 08:42 | P.CONGS_ITS ---
History of Present Illness Consult details Consult date: 01/03/21 Requesting physician: Ronald Mccullough Narrative: 50-year-old male patient with history of peripheral vascular disease and diabetes mellitus found down at home and transported to the emergency department. Patient was found to be hypoglycemic with significant blood drop from 9.2-6.5. Patient's history also significant for CHF, asthma, substance abuse, now found to have a NSTEMI and as a result placed on a heparin drip. Patient previously underwent angioplasty with stent placement by Dr. Johana nelson this year. 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 He reports some throbbing in the left foot but denies significant changes in the ulceration. There has been no bleeding from the foot. Review of Systems Review of Systems: Yes Unobtainable due to mental status Neurologic: Reports confusion Psychiatric: Psychiatric: Reports confusion PMF Past Medical History Medical History Acute on chronic anemia Acute on chronic combined systolic and diastolic congestive heart failure Asthma Bipolar 1 disorder BPH (benign prostatic hyperplasia) Cholelithiasis COPD (chronic obstructive pulmonary disease) Diabetes mellitus, type 2 GERD (gastroesophageal reflux disease) Hyperlipidemia Peripheral arterial disease Peripheral neuropathy Substance abuse Family History Family History Father Chronic mental illness Hypertension Asthma Stroke Mother Asthma Diabetes Coronary artery disease Surgical History Surgical History History of amputation History of laminectomy History of transurethral resection of prostate Hx of BKA Social History Social History Household Members: None Alcohol intake: current Alcohol intake frequency: does not drink Alcohol type: beer Smoking Status: Never smoker Second Hand Smoke Exposure: No Use of substances other than those prescribed or required for medical reasons: Yes Substance Use Type: Heroin and Painkillers Substance Use Frequency: Chronic Longstanding Advance Directives: Yes Advance Directives on File: Yes Advance Directives Date on File: 11/24/20 service: No Current occupational status: disabled Meds Allergies Allergy/AdvReac Type Severity Reaction Status Date / Time ertapenem Allergy Intermediate Hives Verified 01/02/21 20:04 vancomycin [VANCOMYCIN] Allergy Intermediate HIVES Verified 10/04/20 06:49 Chocolate Allergy Unknown Rash Verified 10/04/20 06:49 ciprofloxacin [From CIPRO] Allergy Unknown SWELLING Verified 10/04/20 06:49 hydrocortisone [Cipro HC] Allergy Unknown Unknown Verified 10/04/20 06:49 sulfamethoxazole Allergy Unknown rash Verified 10/04/20 06:49 [From BACTRIM] trimethoprim [From BACTRIM] Allergy Unknown rash Verified 10/04/20 06:49 turkey [TURKEY] Allergy Unknown RASH Verified 10/04/20 06:49 Active Medications: Current Medications Generic Name Dose Route Start Last Admin Trade Name Freq PRN Reason Stop Dose Admin Acetaminophen 650 mg 01/02/21 17:35 Acetaminophen 325 Mg Tablet PO Q6H PRN Pain, Mild (Pain Scale 1-3) Albuterol Sulfate 2.5 mg 01/02/21 17:35 Albuterol Sulfate (0.083%) 2.5 Mg/3 Ml Vial.Neb INHALE Q4H PRN Shortness Of Breath Or Wheezing Albuterol Sulfate 2 puff 01/02/21 17:35 Albuterol Sulfate 90 Mcg 8 Gm Inhaler INHALE Q4H PRN Shortness Of Breath Atorvastatin Calcium 20 mg 01/02/21 21:00 01/02/21 21:37 Atorvastatin Calcium 20 Mg Tablet PO 20 mg BEDTIME [facility] Administration Piperacillin Sod/Tazobactam 50 mls @ 100 mls/hr 01/02/21 22:00 01/03/21 06:03 Sod 3.375 gm/ Sodium Chloride IV Infused Q6H [facility] Infusion Insulin Human Lispro 0 unit 01/03/21 01:15 Insulin Lispro 100 Unit/Ml 3 Ml Vial SUBCUT Q6H [facility] Ondansetron HCl 4 mg 01/02/21 17:35 Ondansetron Hcl 4 Mg/2 Ml Vial IVPUSH Q8H PRN Nausea and Vomiting Pantoprazole Sodium 40 mg 01/03/21 06:30 01/03/21 08:07 Pantoprazole Sodium 40 Mg/10 Ml Vial IVPUSH 40 mg DAILY@0630 [facility] Administration Pharmacy Consult 1 each 01/02/21 11:17 Consult Rx Perform Med Rec MISCELLANE ONCE PRN Consult order Sodium Chloride 3 ml 01/03/21 00:00 01/03/21 02:07 0.9 % Sodium Chloride Flush 3 Ml Syringe IVFLUSH Not Given QSHIFT [facility] Home Medications Medication Instructions Recorded Confirmed Last Taken Type FreeStyle Lite Strips 08/12/20 08/12/20 Unknown History albuterol sulfate 2 puff INHALATION Q4H PRN 08/12/20 01/02/21 Unknown History albuterol sulfate 2.5 mg INHALATION Q4H PRN 08/12/20 01/02/21 Unknown History blood-glucose meter [FreeStyle 08/12/20 08/12/20 Unknown History [place] Lite] cane 08/12/20 08/12/20 Unknown History famotidine [Pepcid] 20 mg PO BID 08/12/20 01/02/21 Unknown History lancets 08/12/20 08/12/20 Unknown History magnesium oxide [MagOx] 400 mg PO DAILY 08/12/20 01/02/21 Unknown History methadone 50 mg PO QAM 08/12/20 09/05/20 Unknown History pen needle, diabetic 08/12/20 08/12/20 Unknown History Eucerin 1 applic TOPICAL DAILY PRN 08/14/20 01/02/21 Unknown History Lantus U-100 Insulin 12 unit SUBCUT QPM 08/14/20 01/02/21 Unknown History aspirin 81 mg PO DAILY 08/14/20 01/02/21 Unknown History atorvastatin 20 mg PO BEDTIME 08/14/20 01/02/21 Unknown History carvedilol 6.25 mg PO BID 08/14/20 01/02/21 Unknown History cetirizine 10 mg PO DAILY 08/14/20 01/02/21 Unknown History clopidogrel 75 mg PO DAILY 08/14/20 01/02/21 Unknown History clotrimazole 1 applic TOPICAL TID 08/14/20 01/02/21 Unknown History ergocalciferol (vitamin D2) 1,250 mcg PO QWEEK 08/14/20 01/02/21 Unknown History fluticasone propionate [Flonase 1 spray INTRANASAL DAILY 08/14/20 01/02/21 Unknown History Allergy Relief] gabapentin 200 mg PO TID 08/14/20 01/02/21 Unknown History insulin lispro 5 unit SUBCUT TIDAC 08/14/20 01/02/21 Unknown History montelukast 10 mg PO BEDTIME 08/14/20 01/02/21 Unknown History polyethylene glycol 3350 [Miralax] 17 g PO DAILY 08/14/20 01/02/21 Unknown History sennosides [senna] 8.6 mg PO BEDTIME PRN 08/14/20 01/02/21 Unknown History spironolactone 12.5 mg PO DAILY 08/14/20 01/02/21 Unknown History tamsulosin 0.4 mg PO DAILY 08/14/20 01/02/21 Unknown History zinc sulfate 220 mg PO DAILY 08/14/20 01/02/21 Unknown History Narcan 4 mg INTRANASAL Q3M PRN 11/24/20 01/02/21 Unknown History tramadol 50 mg PO BID PRN 11/24/20 01/02/21 Unknown History Physical Exam Vital Signs: Vital Signs: Last Vital Signs Temp 98.1 F 01/03/21 07:44 Pulse 67 01/03/21 07:44 Resp 12 01/03/21 07:44 BP 122/67 01/03/21 07:44 Pulse Ox 100 01/03/21 07:44 Body Mass Index 19.9 Const: General: confusion, ill appearing and poor hygiene Orientation/consciousness: confusion Limitations: other limitations (Right BKA) Neck: Neck: Yes normal visual inspection, Yes full ROM and Yes no JVD Resp: Effort & Inspection: normal respiratory effort, no stridor and not tachypneic GI: Inspection: Yes normal to inspection Skin: General skin exam: no rashes or lesions noted, dry skin, no ecchymosis and no erythema Neuro: General: confusion Extrem: Left lower extremity: lower leg (Right BKA, left chronic skin necrosi s, no erythema) Ankle/foot/toe images: 1. Chronic skin necrosis Results Labs Result diagrams: 01/03/21 07:56 01/03/21 07:56 Labs: Abnormal lab results 01/02/21 01/02/21 01/02/21 Range/Units 11:55 11:55 11:55 WBC 12.7 H (4.8-10.8) X10*3/uL RBC 3.02 L (4.60-5.80) X10*6/uL Hgb 8.3 L (14.0-18.0) g/dl Hct 25.4 L (42-52) % MPV 8.5 L (9.4-12.4) fL Immature Gran % (Auto) 0.6 H (0.0-0.4) % Neut % (Auto) 80.6 H (45-73) % Lymph % (Auto) 6.1 L (20-40) % Lymph # (Auto) 0.8 L (1.2-4.9) X10*3/uL [place] # (Auto) 1.3 H (0.1-1.2) X10*3/uL Abs Immat Gran (auto) 0.08 H (0.00-0.03) X10*3/uL Absolute Neuts (auto) 10.2 H (2.0-8.3) X10*3/uL PT 14.7 H (10.8-13.0) SEC INR 1.2 H (0.9-1.1) APTT 38.3 H (24.1-38.0) SEC PTT (Heparin Protocol) (53-77.9) SEC VBG pH (7.32-7.43) Sodium (135-145) mmol/L BUN 28 H (9-16) mg/dL POC Glucose (60-115) mg/dL Random Glucose 51 L* (60-115) mg/dL Lactic Acid (0.5-2.0) mmol/L Lactic Acid Fup @ 2Hr (0.5-2.0) mmol/L Calcium (8.4-10.2) mg/dL Alkaline Phosphatase 127 H (39-117) U/L Troponin I High Sens (<3.5-35.0) ng/L B-Natriuretic Peptide (<100) pg/mL Total Protein 9.0 H (6.5-8.0) g/dL Albumin 3.3 L (3.5-5.0) g/dL TSH 5.70 H (0.32-4.0) uIU/mL U Marijuana (THC) Screen (Not Detect) Crossmatch 01/02/21 01/02/21 01/02/21 Range/Units 11:55 11:55 12:02 WBC (4.8-10.8) X10*3/uL RBC (4.60-5.80) X10*6/uL Hgb (14.0-18.0) g/dl Hct (42-52) % MPV (9.4-12.4) fL Immature Gran % (Auto) (0.0-0.4) % Neut % (Auto) (45-73) % Lymph % (Auto) (20-40) % Lymph # (Auto) (1.2-4.9) X10*3/uL [place] # (Auto) (0.1-1.2) X10*3/uL Abs Immat Gran (auto) (0.00-0.03) X10*3/uL Absolute Neuts (auto) (2.0-8.3) X10*3/uL PT (10.8-13.0) SEC INR (0.9-1.1) APTT (24.1-38.0) SEC PTT (Heparin Protocol) (53-77.9) SEC VBG pH 7.49 H (7.32-7.43) Sodium (135-145) mmol/L BUN (9-16) mg/dL POC Glucose 53 L* (60-115) mg/dL Random Glucose (60-115) mg/dL Lactic Acid 2.7 H* (0.5-2.0) mmol/L Lactic Acid Fup @ 2Hr (0.5-2.0) mmol/L Calcium (8.4-10.2) mg/dL Alkaline Phosphatase (39-117) U/L Troponin I High Sens (<3.5-35.0) ng/L B-Natriuretic Peptide (<100) pg/mL Total Protein (6.5-8.0) g/dL Albumin (3.5-5.0) g/dL TSH (0.32-4.0) uIU/mL U Marijuana (THC) Screen (Not Detect) Crossmatch 01/02/21 01/02/21 01/02/21 Range/Units 12:25 12:43 13:21 WBC (4.8-10.8) X10*3/uL RBC (4.60-5.80) X10*6/uL Hgb (14.0-18.0) g/dl Hct (42-52) % MPV (9.4-12.4) fL Immature Gran % (Auto) (0.0-0.4) % Neut % (Auto) (45-73) % Lymph % (Auto) (20-40) % Lymph # (Auto) (1.2-4.9) X10*3/uL [place] # (Auto) (0.1-1.2) X10*3/uL Abs Immat Gran (auto) (0.00-0.03) X10*3/uL Absolute Neuts (auto) (2.0-8.3) X10*3/uL PT (10.8-13.0) SEC INR (0.9-1.1) APTT (24.1-38.0) SEC PTT (Heparin Protocol) (53-77.9) SEC VBG pH (7.32-7.43) Sodium (135-145) mmol/L BUN (9-16) mg/dL POC Glucose 54 L* 214 H (60-115) mg/dL Random Glucose (60-115) mg/dL Lactic Acid (0.5-2.0) mmol/L Lactic Acid Fup @ 2Hr (0.5-2.0) mmol/L Calcium (8.4-10.2) mg/dL Alkaline Phosphatase (39-117) U/L Troponin I High Sens (<3.5-35.0) ng/L B-Natriuretic Peptide (<100) pg/mL Total Protein (6.5-8.0) g/dL Albumin (3.5-5.0) g/dL TSH (0.32-4.0) uIU/mL U Marijuana (THC) Screen POSITIVE H (Not Detect) Crossmatch 01/02/21 01/02/21 01/02/21 Range/Units 13:59 14:42 15:06 WBC (4.8-10.8) X10*3/uL RBC (4.60-5.80) X10*6/uL Hgb (14.0-18.0) g/dl Hct (42-52) % MPV (9.4-12.4) fL Immature Gran % (Auto) (0.0-0.4) % Neut % (Auto) (45-73) % Lymph % (Auto) (20-40) % Lymph # (Auto) (1.2-4.9) X10*3/uL [place] # (Auto) (0.1-1.2) X10*3/uL Abs Immat Gran (auto) (0.00-0.03) X10*3/uL Absolute Neuts (auto) (2.0-8.3) X10*3/uL PT (10.8-13.0) SEC INR (0.9-1.1) APTT (24.1-38.0) SEC PTT (Heparin Protocol) (53-77.9) SEC VBG pH (7.32-7.43) Sodium (135-145) mmol/L BUN (9-16) mg/dL POC Glucose 190 H (60-115) mg/dL Random Glucose (60-115) mg/dL Lactic Acid (0.5-2.0) mmol/L Lactic Acid Fup @ 2Hr 2.2 H* (0.5-2.0) mmol/L Calcium (8.4-10.2) mg/dL Alkaline Phosphatase (39-117) U/L Troponin I High Sens 45.9 H D (<3.5-35.0) ng/L B-Natriuretic Peptide (<100) pg/mL Total Protein (6.5-8.0) g/dL Albumin (3.5-5.0) g/dL TSH (0.32-4.0) uIU/mL U Marijuana (THC) Screen (Not Detect) Crossmatch 01/02/21 01/02/21 01/02/21 Range/Units 15:20 18:26 23:53 WBC 11.1 H (4.8-10.8) X10*3/uL RBC 2.48 L (4.60-5.80) X10*6/uL Hgb 6.9 L* (14.0-18.0) g/dl Hct 21.2 L (42-52) % MPV 8.4 L (9.4-12.4) fL Immature Gran % (Auto) 0.5 H (0.0-0.4) % Neut % (Auto) 87.6 H (45-73) % Lymph % (Auto) 4.9 L (20-40) % Lymph # (Auto) 0.6 L (1.2-4.9) X10*3/uL [place] # (Auto) (0.1-1.2) X10*3/uL Abs Immat Gran (auto) 0.06 H (0.00-0.03) X10*3/uL Absolute Neuts (auto) 9.7 H (2.0-8.3) X10*3/uL PT (10.8-13.0) SEC INR (0.9-1.1) APTT (24.1-38.0) SEC PTT (Heparin Protocol) (53-77.9) SEC VBG pH (7.32-7.43) Sodium (135-145) mmol/L BUN (9-16) mg/dL POC Glucose 158 H (60-115) mg/dL Random Glucose (60-115) mg/dL Lactic Acid (0.5-2.0) mmol/L Lactic Acid Fup @ 2Hr (0.5-2.0) mmol/L Calcium (8.4-10.2) mg/dL Alkaline Phosphatase (39-117) U/L Troponin I High Sens 156.3 H D (<3.5-35.0) ng/L B-Natriuretic Peptide 997 H (<100) pg/mL Total Protein (6.5-8.0) g/dL Albumin (3.5-5.0) g/dL TSH (0.32-4.0) uIU/mL U Marijuana (THC) Screen (Not Detect) Crossmatch 01/02/21 01/02/21 01/03/21 Range/Units 23:53 23:53 00:47 WBC 11.3 H (4.8-10.8) X10*3/uL RBC 2.38 L (4.60-5.80) X10*6/uL Hgb 6.5 L* (14.0-18.0) g/dl Hct 20.1 L* (42-52) % MPV 8.3 L (9.4-12.4) fL Immature Gran % (Auto) 0.6 H (0.0-0.4) % Neut % (Auto) 86.2 H (45-73) % Lymph % (Auto) 5.3 L (20-40) % Lymph # (Auto) 0.6 L (1.2-4.9) X10*3/uL [place] # (Auto) (0.1-1.2) X10*3/uL Abs Immat Gran (auto) 0.07 H (0.00-0.03) X10*3/uL Absolute Neuts (auto) 9.7 H (2.0-8.3) X10*3/uL PT (10.8-13.0) SEC INR (0.9-1.1) APTT (24.1-38.0) SEC PTT (Heparin Protocol) 42.9 L (53-77.9) SEC VBG pH (7.32-7.43) Sodium 134 L (135-145) mmol/L BUN 26 H (9-16) mg/dL POC Glucose (60-115) mg/dL Random Glucose 160 H D (60-115) mg/dL Lactic Acid (0.5-2.0) mmol/L Lactic Acid Fup @ 2Hr (0.5-2.0) mmol/L Calcium 7.8 L D (8.4-10.2) mg/dL Alkaline Phosphatase (39-117) U/L Troponin I High Sens (<3.5-35.0) ng/L B-Natriuretic Peptide (<100) pg/mL Total Protein (6.5-8.0) g/dL Albumin (3.5-5.0) g/dL TSH (0.32-4.0) uIU/mL U Marijuana (THC) Screen (Not Detect) Crossmatch 01/03/21 01/03/21 01/03/21 Range/Units 00:47 01:56 07:48 WBC (4.8-10.8) X10*3/uL RBC (4.60-5.80) X10*6/uL Hgb (14.0-18.0) g/dl Hct (42-52) % MPV (9.4-12.4) fL Immature Gran % (Auto) (0.0-0.4) % Neut % (Auto) (45-73) % Lymph % (Auto) (20-40) % Lymph # (Auto) (1.2-4.9) X10*3/uL [place] # (Auto) (0.1-1.2) X10*3/uL Abs Immat Gran (auto) (0.00-0.03) X10*3/uL Absolute Neuts (auto) (2.0-8.3) X10*3/uL PT (10.8-13.0) SEC INR (0.9-1.1) APTT (24.1-38.0) SEC PTT (Heparin Protocol) (53-77.9) SEC VBG pH (7.32-7.43) Sodium (135-145) mmol/L BUN (9-16) mg/dL POC Glucose 129 H 47 L* (60-115) mg/dL Random Glucose (60-115) mg/dL Lactic Acid (0.5-2.0) mmol/L Lactic Acid Fup @ 2Hr (0.5-2.0) mmol/L Calcium (8.4-10.2) mg/dL Alkaline Phosphatase (39-117) U/L Troponin I High Sens (<3.5-35.0) ng/L B-Natriuretic Peptide (<100) pg/mL Total Protein (6.5-8.0) g/dL Albumin (3.5-5.0) g/dL TSH (0.32-4.0) uIU/mL U Marijuana (THC) Screen (Not Detect) Crossmatch See Detail 01/03/21 01/03/21 Range/Units 07:56 08:13 WBC 12.0 H (4.8-10.8) X10*3/uL RBC 3.19 L D (4.60-5.80) X10*6/uL Hgb 8.8 L D (14.0-18.0) g/dl Hct 27.5 L D (42-52) % MPV 8.2 L (9.4-12.4) fL Immature Gran % (Auto) (0.0-0.4) % Neut % (Auto) 87.4 H (45-73) % Lymph % (Auto) 3.2 L (20-40) % Lymph # (Auto) 0.4 L (1.2-4.9) X10*3/uL [place] # (Auto) (0.1-1.2) X10*3/uL Abs Immat Gran (auto) 0.05 H (0.00-0.03) X10*3/uL Absolute Neuts (auto) 10.5 H (2.0-8.3) X10*3/uL PT (10.8-13.0) SEC INR (0.9-1.1) APTT (24.1-38.0) SEC PTT (Heparin Protocol) (53-77.9) SEC VBG pH (7.32-7.43) Sodium (135-145) mmol/L BUN (9-16) mg/dL POC Glucose 151 H (60-115) mg/dL Random Glucose (60-115) mg/dL Lactic Acid (0.5-2.0) mmol/L Lactic Acid Fup @ 2Hr (0.5-2.0) mmol/L Calcium (8.4-10.2) mg/dL Alkaline Phosphatase (39-117) U/L Troponin I High Sens (<3.5-35.0) ng/L B-Natriuretic Peptide (<100) pg/mL Total Protein (6.5-8.0) g/dL Albumin (3.5-5.0) g/dL TSH (0.32-4.0) uIU/mL U Marijuana (THC) Screen (Not Detect) Crossmatch Short CBC 01/02/21 01/02/21 01/03/21 Range/Units 11:55 23:53 00:47 WBC 12.7 H 11.1 H 11.3 H (4.8-10.8) X10*3/uL Hgb 8.3 L 6.9 L* 6.5 L* (14.0-18.0) g/dl Hct 25.4 L 21.2 L 20.1 L* (42-52) % Plt Count 368 292 258 (160-400) X10*3/uL 01/03/21 Range/Units 07:56 WBC 12.0 H (4.8-10.8) X10*3/uL Hgb 8.8 L D (14.0-18.0) g/dl Hct 27.5 L D (42-52) % Plt Count 264 (160-400) X10*3/uL BMP 01/02/21 01/02/21 11:55 23:53 Sodium 136 134 L Potassium 3.3 3.7 Chloride 98 99 Carbon Dioxide 26 24 BUN 28 H 26 H Creatinine 1.14 1.18 Calcium 9.0 D 7.8 L D Cardiac Enzymes 01/02/21 Range/Units 11:55 Total Creatine Kinase 117 (38-174) U/L Liver Function 01/02/21 Range/Units 11:55 Total Bilirubin 0.7 (0.0-1.0) mg/dL Direct Bilirubin 0.4 (0.0-0.5) mg/dL AST 25 (5-37) U/L ALT 15 (0-40) U/L Alkaline Phosphatase 127 H (39-117) U/L Albumin 3.3 L (3.5-5.0) g/dL Urine 01/02/21 Range/Units 12:43 Urine Color STRAW Urine Appearance CLEAR Urine pH 7.0 (5.0-8.0) Ur Specific [place] 1.010 (1.005-1.025) Urine Protein NEG (NEG-TRACE) MG/DL Urine Glucose (UA) NEG (NEG) MG/DL All other labs normal. Assessment and Plan (1) Unstageable pressure ulcer of heel: Qualifiers: Laterality: left Qualified Code(s): L89.620 - Pressure ulcer of left heel, unstageable Status: Acute 50-year-old male with multiple medical problems presenting to the emergency department after being found down, found to be hypotensive and hypoglycemic. Workup also identified worsening anemia with guaiac-positive stools. A chronic left heel ulcer was identified. The patient has a known history of peripheral vascular disease and recently underwent a stent placement by Dr. Vaughn. The ulcer does not require debridement at this time and does not appear to be a source of bleeding. Would defer further management of the peripheral vascular disease to Dr. Vaughn. (2) Peripheral arterial disease: Status: Acute
--- NOTE | 2021-01-03 10:10 | PC.NURSE ---
Dr. Mendez saw patient this morning, upgraded diet to clear liquid diet
[2021-01-03 10:43] LABS: Glucose, Whole Blood 66 mg/dL (60-115)
--- NOTE | 2021-01-03 11:53 | PC.NURSE ---
POC at [address] Mendez was messaged at 1048 regarding upgrading patient diet to regular diet. Dr. Mendez said to wait for another Hemoglobin before advancing diet. Pt was given 1 jello with 2 sugar packets and an orange juice. POC taken again at [address] Cross saw patient and did echocardiogram at bedside and said he would discuss plan of care with Dr. Mendez. pt aware of plan of care.
[2021-01-03 11:54] LABS: Glucose, Whole Blood 112 mg/dL (60-115)
--- NOTE | 2021-01-03 12:36 | P.CONCA_ITS ---
History of Present Illness History of Present Illness Date of Service: 01/03/21 Requesting physician: Steven Brown Chief complaint: Hypoglycemia Narrative: 50-year-old gentleman with background history of diabetes, polysubstance abuse now on methadone, cardiomyopathy with EF 15 20%, chronic chest pains, asthma and depression. He is brought in for hypoglycemia and bradycardia. He was given Narcan and was treated for hypoglycemia. It appears he was found down at the neighbors called EMS. His blood sugar in the field was 42 and his blood pressure was 91 /52. He was given Narcan, atropine and T10. His high sensitivity troponin level was 18 and then increase to 45.9. His EKG was abnormal and showed T-wave inversions in the anterolateral leads with subtle depressions. QTC was 5 in 40 milliseconds. On discussion with him he has no chest pain or shortness of breath. He has been found to have anemia. He is complaining of some epigastric discomfort for the last few hours. Also has a left heel ulcer. The nurse also added that his sugar level dropped again and she gave him some dextrose again. He is otherwise quite vague historian. Review of Systems Review of Systems: Epigastric pain Yes all other systems are reviewed and are negative PMFSH Past Medical History Medical History Acute on chronic anemia Acute on chronic combined systolic and diastolic congestive heart failure Asthma Bipolar 1 disorder BPH (benign prostatic hyperplasia) Cholelithiasis COPD (chronic obstructive pulmonary disease) Diabetes mellitus, type 2 GERD (gastroesophageal reflux disease) Hyperlipidemia Peripheral arterial disease Peripheral neuropathy Substance abuse Family History Family History Father Chronic mental illness Hypertension Asthma Stroke Mother Asthma Diabetes Coronary artery disease Surgical History Surgical History History of amputation History of laminectomy History of transurethral resection of prostate Hx of BKA Social History Social History Household Members: None Alcohol intake: current Alcohol intake frequency: does not drink Alcohol type: beer Smoking Status: Never smoker Second Hand Smoke Exposure: No Use of substances other than those prescribed or required for medical reasons: Yes Substance Use Type: Heroin and Painkillers Substance Use Frequency: Chronic Longstanding Advance Directives: Yes Advance Directives on File: Yes Advance Directives Date on File: 11/24/20 service: No Current occupational status: disabled Meds Allergies Allergy/AdvReac Type Severity Reaction Status Date / Time ertapenem Allergy Intermediate Hives Verified 01/02/21 20:04 vancomycin [VANCOMYCIN] Allergy Intermediate HIVES Verified 10/04/20 06:49 Chocolate Allergy Unknown Rash Verified 10/04/20 06:49 ciprofloxacin [From CIPRO] Allergy Unknown SWELLING Verified 10/04/20 06:49 hydrocortisone [Cipro HC] Allergy Unknown Unknown Verified 10/04/20 06:49 sulfamethoxazole Allergy Unknown rash Verified 10/04/20 06:49 [From BACTRIM] trimethoprim [From BACTRIM] Allergy Unknown rash Verified 10/04/20 06:49 turkey [TURKEY] Allergy Unknown RASH Verified 10/04/20 06:49 Active Medications: Current Medications Generic Name Dose Route Start Last Admin Trade Name Freq PRN Reason Stop Dose Admin Acetaminophen 650 mg 01/02/21 17:35 Acetaminophen 325 Mg Tablet PO Q6H PRN Pain, Mild (Pain Scale 1-3) Albuterol Sulfate 2.5 mg 01/02/21 17:35 Albuterol Sulfate (0.083%) 2.5 Mg/3 Ml Vial.Neb INHALE Q4H PRN Shortness Of Breath Or Wheezing Albuterol Sulfate 2 puff 01/02/21 17:35 Albuterol Sulfate 90 Mcg 8 Gm Inhaler INHALE Q4H PRN Shortness Of Breath Atorvastatin Calcium 20 mg 01/02/21 21:00 01/02/21 21:37 Atorvastatin Calcium 20 Mg Tablet PO 20 mg BEDTIME VENTURA Administration Piperacillin Sod/Tazobactam 50 mls @ 100 mls/hr 01/02/21 22:00 01/03/21 06:03 Sod 3.375 gm/ Sodium Chloride IV Infused Q6H VENTURA Infusion Insulin Human Lispro 0 unit 01/03/21 01:15 Insulin Lispro 100 Unit/Ml 3 Ml Vial SUBCUT Q6H VENTURA Ondansetron HCl 4 mg 01/02/21 17:35 Ondansetron Hcl 4 Mg/2 Ml Vial IVPUSH Q8H PRN Nausea and Vomiting Pantoprazole Sodium 40 mg 01/03/21 06:30 01/03/21 08:07 Pantoprazole Sodium 40 Mg/10 Ml Vial IVPUSH 40 mg DAILY@0630 [facility] Administration Pharmacy Consult 1 each 01/02/21 11:17 Consult Rx Perform Med Rec MISCELLANE ONCE PRN Consult order Sodium Chloride 3 ml 01/03/21 00:00 01/03/21 02:07 0.9 % Sodium Chloride Flush 3 Ml Syringe IVFLUSH Not Given QSHIFT [facility] Home Medications Medication Instructions Recorded Confirmed Last Taken Type FreeStyle Lite Strips 08/12/20 08/12/20 Unknown History albuterol sulfate 2 puff INHALATION Q4H PRN 08/12/20 01/02/21 Unknown History albuterol sulfate 2.5 mg INHALATION Q4H PRN 08/12/20 01/02/21 Unknown History blood-glucose meter [FreeStyle 08/12/20 08/12/20 Unknown History [place] Lite] cane 08/12/20 08/12/20 Unknown History famotidine [Pepcid] 20 mg PO BID 08/12/20 01/02/21 Unknown History lancets 08/12/20 08/12/20 Unknown History magnesium oxide [MagOx] 400 mg PO DAILY 08/12/20 01/02/21 Unknown History methadone 50 mg PO QAM 08/12/20 09/05/20 Unknown History pen needle, diabetic 08/12/20 08/12/20 Unknown History Eucerin 1 applic TOPICAL DAILY PRN 08/14/20 01/02/21 Unknown History Lantus U-100 Insulin 12 unit SUBCUT QPM 08/14/20 01/02/21 Unknown History aspirin 81 mg PO DAILY 08/14/20 01/02/21 Unknown History atorvastatin 20 mg PO BEDTIME 08/14/20 01/02/21 Unknown History carvedilol 6.25 mg PO BID 08/14/20 01/02/21 Unknown History cetirizine 10 mg PO DAILY 08/14/20 01/02/21 Unknown History clopidogrel 75 mg PO DAILY 08/14/20 01/02/21 Unknown History clotrimazole 1 applic TOPICAL TID 08/14/20 01/02/21 Unknown History ergocalciferol (vitamin D2) 1,250 mcg PO QWEEK 08/14/20 01/02/21 Unknown History fluticasone propionate [Flonase 1 spray INTRANASAL DAILY 08/14/20 01/02/21 Unknown History Allergy Relief] gabapentin 200 mg PO TID 08/14/20 01/02/21 Unknown History insulin lispro 5 unit SUBCUT TIDAC 08/14/20 01/02/21 Unknown History montelukast 10 mg PO BEDTIME 08/14/20 01/02/21 Unknown History polyethylene glycol 3350 [Miralax] 17 g PO DAILY 08/14/20 01/02/21 Unknown History sennosides [senna] 8.6 mg PO BEDTIME PRN 08/14/20 01/02/21 Unknown History spironolactone 12.5 mg PO DAILY 08/14/20 01/02/21 Unknown History tamsulosin 0.4 mg PO DAILY 08/14/20 01/02/21 Unknown History zinc sulfate 220 mg PO DAILY 08/14/20 01/02/21 Unknown History Narcan 4 mg INTRANASAL Q3M PRN 11/24/20 01/02/21 Unknown History tramadol 50 mg PO BID PRN 11/24/20 01/02/21 Unknown History Physical Exam Vital Signs: Vital Signs: Last Vital Signs Temp 98.1 F 01/03/21 07:44 Pulse 72 01/03/21 10:36 Resp 17 01/03/21 10:36 BP 124/65 01/03/21 10:36 Pulse Ox 100 01/03/21 10:36 Body Mass Index 19.9 GENERAL APPEARANCE: In no distress. HEENT: unremarkable. HEAD: normocephalic, atraumatic. NECK/THYROID: no JVD. SKIN: Left heel wound. HEART: no murmurs, regular rate and rhythm, S1, S2 normal. LUNGS: clear to auscultation bilaterally. ABDOMEN: normal, bowel sounds present, soft, nontender, nondistended. EXTREMITIES: no clubbing, cyanosis, or edema. right-sided above-knee amputation with dressing. PERIPHERAL PULSES: equal. NEUROLOGIC: nonfocal, alert and oriented. Results Labs and Meds Result diagrams: 01/03/21 07:56 01/03/21 07:56 Lab results: Laboratory Results - last 24 hr 01/02/21 01/02/21 01/02/21 11:55 11:55 11:55 WBC RBC Hgb Hct MCV MCH MCHC RDW Plt Count MPV Immature Gran % (Auto) Neut % (Auto) Lymph % (Auto) [place] % (Auto) Eos % (Auto) Baso % (Auto) Lymph # (Auto) [place] # (Auto) Eos # (Auto) Baso # (Auto) Abs Immat Gran (auto) Absolute Neuts (auto) Absolute Nucleated RBC Nucleated RBC % (auto) Smear Tech's Comments PTT (Heparin Protocol) Sodium 136 Potassium 3.3 Chloride 98 Carbon Dioxide 26 Anion Gap 15 BUN 28 H Creatinine 1.14 Estim Creat Clear Calc 60.0 Estimated GFR > 60 POC Glucose Random Glucose 51 L* Lactic Acid Lactic Acid Fup @ 2Hr Lactic Acid Fup @ 4Hr Calcium 9.0 D Phosphorus Magnesium 1.7 Total Bilirubin 0.7 Direct Bilirubin 0.4 AST 25 ALT 15 Alkaline Phosphatase 127 H Total Creatine Kinase 117 Troponin I High Sens 18.0 B-Natriuretic Peptide Total Protein 9.0 H Albumin 3.3 L Lipase TSH 5.70 H Urine Color Urine Appearance Urine pH Ur Specific Mc[place] Urine Protein Urine Glucose (UA) Urine Ketones Urine Blood Urine Nitrite Ur Leukocyte Esterase Urine RBC Urine WBC Ur Squamous Epith Cells Urine Bacteria Stool Occult Blood Urine Opiates Screen Ur Barbiturates Screen Ur Phencyclidine Scrn Ur Amphetamines Screen U Benzodiazepines Scrn Urine Cocaine Screen U Marijuana (THC) Screen Ethyl Alcohol < 10 Blood Type Antibody Screen Crossmatch 01/02/21 01/02/21 01/02/21 11:55 12:25 12:43 WBC RBC Hgb Hct MCV MCH MCHC RDW Plt Count MPV Immature Gran % (Auto) Neut % (Auto) Lymph % (Auto) [place] % (Auto) Eos % (Auto) Baso % (Auto) Lymph # (Auto) [place] # (Auto) Eos # (Auto) Baso # (Auto) Abs Immat Gran (auto) Absolute Neuts (auto) Absolute Nucleated RBC Nucleated RBC % (auto) Smear Tech's Comments PTT (Heparin Protocol) Sodium Potassium Chloride Carbon Dioxide Anion Gap BUN Creatinine Estim Creat Clear Calc Estimated GFR POC Glucose 54 L* Random Glucose Lactic Acid Lactic Acid Fup @ 2Hr Lactic Acid Fup @ 4Hr Calcium Phosphorus Magnesium Total Bilirubin Direct Bilirubin AST ALT Alkaline Phosphatase Total Creatine Kinase Troponin I High Sens B-Natriuretic Peptide Total Protein Albumin Lipase 31 TSH Urine Color Urine Appearance Urine pH Ur Specific [place] Urine Protein Urine Glucose (UA) Urine Ketones Urine Blood Urine Nitrite Ur Leukocyte Esterase Urine RBC Urine WBC Ur Squamous Epith Cells Urine Bacteria Stool Occult Blood Urine Opiates Screen Not Detected Ur Barbiturates Screen Not Detected Ur Phencyclidine Scrn Not Detected Ur Amphetamines Screen Not Detected U Benzodiazepines Scrn Not Detected Urine Cocaine Screen Not Detected U Marijuana (THC) Screen POSITIVE H Ethyl Alcohol Blood Type Antibody Screen Crossmatch 01/02/21 01/02/21 01/02/21 12:43 13:21 13:59 WBC RBC Hgb Hct MCV MCH MCHC RDW Plt Count MPV Immature Gran % (Auto) Neut % (Auto) Lymph % (Auto) [place] % (Auto) Eos % (Auto) Baso % (Auto) Lymph # (Auto) [place] # (Auto) Eos # (Auto) Baso # (Auto) Abs Immat Gran (auto) Absolute Neuts (auto) Absolute Nucleated RBC Nucleated RBC % (auto) Smear Tech's Comments PTT (Heparin Protocol) Sodium Potassium Chloride Carbon Dioxide Anion Gap BUN Creatinine Estim Creat Clear Calc Estimated GFR POC Glucose 214 H 190 H Random Glucose Lactic Acid Lactic Acid Fup @ 2Hr Lactic Acid Fup @ 4Hr Calcium Phosphorus Magnesium Total Bilirubin Direct Bilirubin AST ALT Alkaline Phosphatase Total Creatine Kinase Troponin I High Sens B-Natriuretic Peptide Total Protein Albumin Lipase TSH Urine Color STRAW Urine Appearance CLEAR Urine pH 7.0 Ur Specific [place] 1.010 Urine Protein NEG Urine Glucose (UA) NEG Urine Ketones NEG Urine Blood TRACE Urine Nitrite NEG Ur Leukocyte Esterase NEG Urine RBC 0-2 Urine WBC 0 Ur Squamous Epith Cells NONE Urine Bacteria NONE Stool Occult Blood Urine Opiates Screen Ur Barbiturates Screen Ur Phencyclidine Scrn Ur Amphetamines Screen U Benzodiazepines Scrn Urine Cocaine Screen U Marijuana (THC) Screen Ethyl Alcohol Blood Type Antibody Screen Crossmatch 01/02/21 01/02/21 01/02/21 14:42 15:06 15:20 WBC RBC Hgb Hct MCV MCH MCHC RDW Plt Count MPV Immature Gran % (Auto) Neut % (Auto) Lymph % (Auto) [place] % (Auto) Eos % (Auto) Baso % (Auto) Lymph # (Auto) [place] # (Auto) Eos # (Auto) Baso # (Auto) Abs Immat Gran (auto) Absolute Neuts (auto) Absolute Nucleated RBC Nucleated RBC % (auto) Smear Tech's Comments PTT (Heparin Protocol) Sodium Potassium Chloride Carbon Dioxide Anion Gap BUN Creatinine Estim Creat Clear Calc Estimated GFR POC Glucose 158 H Random Glucose Lactic Acid Lactic Acid Fup @ 2Hr 2.2 H* Lactic Acid Fup @ 4Hr Calcium Phosphorus Magnesium Total Bilirubin Direct Bilirubin AST ALT Alkaline Phosphatase Total Creatine Kinase Troponin I High Sens 45.9 H D B-Natriuretic Peptide Total Protein Albumin Lipase TSH Urine Color Urine Appearance Urine pH Ur Specific [place] Urine Protein Urine Glucose (UA) Urine Ketones Urine Blood Urine Nitrite Ur Leukocyte Esterase Urine RBC Urine WBC Ur Squamous Epith Cells Urine Bacteria Stool Occult Blood Urine Opiates Screen Ur Barbiturates Screen Ur Phencyclidine Scrn Ur Amphetamines Screen U Benzodiazepines Scrn Urine Cocaine Screen U Marijuana (THC) Screen Ethyl Alcohol Blood Type Antibody Screen Crossmatch 01/02/21 01/02/21 01/02/21 18:26 18:26 18:27 WBC RBC Hgb Hct MCV MCH MCHC RDW Plt Count MPV Immature Gran % (Auto) Neut % (Auto) Lymph % (Auto) [place] % (Auto) Eos % (Auto) Baso % (Auto) Lymph # (Auto) [place] # (Auto) Eos # (Auto) Baso # (Auto) Abs Immat Gran (auto) Absolute Neuts (auto) Absolute Nucleated RBC Nucleated RBC % (auto) Smear Tech's Comments PTT (Heparin Protocol) Sodium Potassium Chloride Carbon Dioxide Anion Gap BUN Creatinine Estim Creat Clear Calc Estimated GFR POC Glucose Random Glucose Lactic Acid Cancelled Lactic Acid Fup @ 2Hr Lactic Acid Fup @ 4Hr Cancelled Calcium Phosphorus Magnesium Total Bilirubin Direct Bilirubin AST ALT Alkaline Phosphatase Total Creatine Kinase Troponin I High Sens 156.3 H D B-Natriuretic Peptide 997 H Total Protein Albumin Lipase TSH Urine Color Urine Appearance Urine pH Ur Specific [place] Urine Protein Urine Glucose (UA) Urine Ketones Urine Blood Urine Nitrite Ur Leukocyte Esterase Urine RBC Urine WBC Ur Squamous Epith Cells Urine Bacteria Stool Occult Blood Urine Opiates Screen Ur Barbiturates Screen Ur Phencyclidine Scrn Ur Amphetamines Screen U Benzodiazepines Scrn Urine Cocaine Screen U Marijuana (THC) Screen Ethyl Alcohol Blood Type Antibody Screen Crossmatch 01/02/21 01/02/21 01/02/21 20:35 22:32 23:53 WBC 11.1 H RBC 2.48 L Hgb 6.9 L* Hct 21.2 L MCV 85.5 MCH 27.8 MCHC 32.5 RDW 15.9 Plt Count 292 MPV 8.4 L Immature Gran % (Auto) 0.5 H Neut % (Auto) 87.6 H Lymph % (Auto) 4.9 L [place] % (Auto) 6.7 Eos % (Auto) 0.2 Baso % (Auto) 0.1 Lymph # (Auto) 0.6 L [place] # (Auto) 0.7 Eos # (Auto) 0.0 Baso # (Auto) 0.0 Abs Immat Gran (auto) 0.06 H Absolute Neuts (auto) 9.7 H Absolute Nucleated RBC 0.000 Nucleated RBC % (auto) 0.0 Smear Tech's Comments VERIFIED PTT (Heparin Protocol) Sodium Potassium Chloride Carbon Dioxide Anion Gap BUN Creatinine Estim Creat Clear Calc Estimated GFR POC Glucose Random Glucose Lactic Acid 2.0 Lactic Acid Fup @ 2Hr Lactic Acid Fup @ 4Hr Calcium Phosphorus Magnesium Total Bilirubin Direct Bilirubin AST ALT Alkaline Phosphatase Total Creatine Kinase Troponin I High Sens B-Natriuretic Peptide Total Protein Albumin Lipase TSH Urine Color Urine Appearance Urine pH Ur Specific [place] Urine Protein Urine Glucose (UA) Urine Ketones Urine Blood Urine Nitrite Ur Leukocyte Esterase Urine RBC Urine WBC Ur Squamous Epith Cells Urine Bacteria Stool Occult Blood POS Urine Opiates Screen Ur Barbiturates Screen Ur Phencyclidine Scrn Ur Amphetamines Screen U Benzodiazepines Scrn Urine Cocaine Screen U Marijuana (THC) Screen Ethyl Alcohol Blood Type Antibody Screen Crossmatch 01/02/21 01/02/21 01/03/21 23:53 23:53 00:47 WBC 11.3 H RBC 2.38 L Hgb 6.5 L* Hct 20.1 L* MCV 84.5 MCH 27.3 MCHC 32.3 RDW 16.0 Plt Count 258 MPV 8.3 L Immature Gran % (Auto) 0.6 H Neut % (Auto) 86.2 H Lymph % (Auto) 5.3 L [place] % (Auto) 7.3 Eos % (Auto) 0.4 Baso % (Auto) 0.2 Lymph # (Auto) 0.6 L [place] # (Auto) 0.8 Eos # (Auto) 0.0 Baso # (Auto) 0.0 Abs Immat Gran (auto) 0.07 H Absolute Neuts (auto) 9.7 H Absolute Nucleated RBC 0.000 Nucleated RBC % (auto) 0.0 Smear Tech's Comments PTT (Heparin Protocol) 42.9 L Sodium 134 L Potassium 3.7 Chloride 99 Carbon Dioxide 24 Anion Gap 15 BUN 26 H Creatinine 1.18 Estim Creat Clear Calc 58.0 Estimated GFR > 60 POC Glucose Random Glucose 160 H D Lactic Acid Lactic Acid Fup @ 2Hr Lactic Acid Fup @ 4Hr Calcium 7.8 L D Phosphorus 3.5 Magnesium Total Bilirubin Direct Bilirubin AST ALT Alkaline Phosphatase Total Creatine Kinase Troponin I High Sens B-Natriuretic Peptide Total Protein Albumin Lipase TSH Urine Color Urine Appearance Urine pH Ur Specific [place] Urine Protein Urine Glucose (UA) Urine Ketones Urine Blood Urine Nitrite Ur Leukocyte Esterase Urine RBC Urine WBC Ur Squamous Epith Cells Urine Bacteria Stool Occult Blood Urine Opiates Screen Ur Barbiturates Screen Ur Phencyclidine Scrn Ur Amphetamines Screen U Benzodiazepines Scrn Urine Cocaine Screen U Marijuana (THC) Screen Ethyl Alcohol Blood Type Antibody Screen Crossmatch 01/03/21 01/03/21 01/03/21 00:47 01:56 07:48 WBC RBC Hgb Hct MCV MCH MCHC RDW Plt Count MPV Immature Gran % (Auto) Neut % (Auto) Lymph % (Auto) [place] % (Auto) Eos % (Auto) Baso % (Auto) Lymph # (Auto) [place] # (Auto) Eos # (Auto) Baso # (Auto) Abs Immat Gran (auto) Absolute Neuts (auto) Absolute Nucleated RBC Nucleated RBC % (auto) Smear Tech's Comments PTT (Heparin Protocol) Sodium Potassium Chloride Carbon Dioxide Anion Gap BUN Creatinine Estim Creat Clear Calc Estimated GFR POC Glucose 129 H 47 L* Random Glucose Lactic Acid Lactic Acid Fup @ 2Hr Lactic Acid Fup @ 4Hr Calcium Phosphorus Magnesium Total Bilirubin Direct Bilirubin AST ALT Alkaline Phosphatase Total Creatine Kinase Troponin I High Sens B-Natriuretic Peptide Total Protein Albumin Lipase TSH Urine Color Urine Appearance Urine pH Ur Specific [place] Urine Protein Urine Glucose (UA) Urine Ketones Urine Blood Urine Nitrite Ur Leukocyte Esterase Urine RBC Urine WBC Ur Squamous Epith Cells Urine Bacteria Stool Occult Blood Urine Opiates Screen Ur Barbiturates Screen Ur Phencyclidine Scrn Ur Amphetamines Screen U Benzodiazepines Scrn Urine Cocaine Screen U Marijuana (THC) Screen Ethyl Alcohol Blood Type B Positive Antibody Screen NEGATIVE Crossmatch See Detail 01/03/21 01/03/21 01/03/21 07:56 07:56 08:13 WBC 12.0 H RBC 3.19 L D Hgb 8.8 L D Hct 27.5 L D MCV 86.2 MCH 27.6 MCHC 32.0 RDW 14.9 Plt Count 264 MPV 8.2 L Immature Gran % (Auto) 0.4 Neut % (Auto) 87.4 H Lymph % (Auto) 3.2 L [place] % (Auto) 7.5 Eos % (Auto) 1.3 Baso % (Auto) 0.2 Lymph # (Auto) 0.4 L [place] # (Auto) 0.9 Eos # (Auto) 0.2 Baso # (Auto) 0.0 Abs Immat Gran (auto) 0.05 H Absolute Neuts (auto) 10.5 H Absolute Nucleated RBC 0.000 Nucleated RBC % (auto) 0.0 Smear Tech's Comments VERIFIED PTT (Heparin Protocol) Sodium 136 Potassium 3.7 Chloride 101 Carbon Dioxide 27 Anion Gap 12 BUN 23 H Creatinine 1.06 Estim Creat Clear Calc 64.5 Estimated GFR > 60 POC Glucose 151 H Random Glucose 192 H Lactic Acid Lactic Acid Fup @ 2Hr Lactic Acid Fup @ 4Hr Calcium 7.9 L Phosphorus Magnesium Total Bilirubin Direct Bilirubin AST ALT Alkaline Phosphatase Total Creatine Kinase Troponin I High Sens B-Natriuretic Peptide Total Protein Albumin Lipase TSH Urine Color Urine Appearance Urine pH Ur Specific [place] Urine Protein Urine Glucose (UA) Urine Ketones Urine Blood Urine Nitrite Ur Leukocyte Esterase Urine RBC Urine WBC Ur Squamous Epith Cells Urine Bacteria Stool Occult Blood Urine Opiates Screen Ur Barbiturates Screen Ur Phencyclidine Scrn Ur Amphetamines Screen U Benzodiazepines Scrn Urine Cocaine Screen U Marijuana (THC) Screen Ethyl Alcohol Blood Type Antibody Screen Crossmatch 01/03/21 01/03/21 10:38 11:48 WBC RBC Hgb Hct MCV MCH MCHC RDW Plt Count MPV Immature Gran % (Auto) Neut % (Auto) Lymph % (Auto) [place] % (Auto) Eos % (Auto) Baso % (Auto) Lymph # (Auto) [place] # (Auto) Eos # (Auto) Baso # (Auto) Abs Immat Gran (auto) Absolute Neuts (auto) Absolute Nucleated RBC Nucleated RBC % (auto) Smear Tech's Comments PTT (Heparin Protocol) Sodium Potassium Chloride Carbon Dioxide Anion Gap BUN Creatinine Estim Creat Clear Calc Estimated GFR POC Glucose 66 112 Random Glucose Lactic Acid Lactic Acid Fup @ 2Hr Lactic Acid Fup @ 4Hr Calcium Phosphorus Magnesium Total Bilirubin Direct Bilirubin AST ALT Alkaline Phosphatase Total Creatine Kinase Troponin I High Sens B-Natriuretic Peptide Total Protein Albumin Lipase TSH Urine Color Urine Appearance Urine pH Ur Specific [place] Urine Protein Urine Glucose (UA) Urine Ketones Urine Blood Urine Nitrite Ur Leukocyte Esterase Urine RBC Urine WBC Ur Squamous Epith Cells Urine Bacteria Stool Occult Blood Urine Opiates Screen Ur Barbiturates Screen Ur Phencyclidine Scrn Ur Amphetamines Screen U Benzodiazepines Scrn Urine Cocaine Screen U Marijuana (THC) Screen Ethyl Alcohol Blood Type Antibody Screen Crossmatch Imaging Radiologist's impression: Impressions Head CT 01/02/21 11:19 IMPRESSION: No evidence of pneumonia. Enlarged heart. Coronary artery calcification. Gallstones. Improved right medial chest wall soft tissue thickening and soft tissue thickening superficial to and deep to the sternum. Mild T9 vertebral body compression fracture. EXAMINATION: Head CT without contrast CLINICAL INFORMATION: Weakness COMPARISON: Previous head CT most recent February 2011 TECHNIQUE: Axial images through the brain without contrast. Sagittal and coronal reconstructions on the technologist workstation were performed. Patient dose 700 mg/cm. FINDINGS: There is no evidence of an extra-axial collection. There is no evidence of intra-axial or extra-axial hemorrhage. The ventricles and extra-axial CSF spaces are prominent suggestive of mild generalized atrophy. There is nonspecific periventricular white matter disease. No mass, mass effect or infarct is seen. Review of bone windows is normal. No skull fracture is seen. There is a soft tissue opacification of the left frontal sinus. Visualized paranasal sinuses, mastoid air cells and middle ears are otherwise clear. IMPRESSION: No acute findings. Generalized atrophy and nonspecific periventricular white matter disease. Left frontal sinus disease. Chest CT 01/02/21 12:31 IMPRESSION: No evidence of pneumonia. Enlarged heart. Coronary artery calcification. Gallstones. Improved right medial chest wall soft tissue thickening and soft tissue thickening superficial to and deep to the sternum. Mild T9 vertebral body compression fracture. EXAMINATION: Head CT without contrast CLINICAL INFORMATION: Weakness COMPARISON: Previous head CT most recent February 2011 TECHNIQUE: Axial images through the brain without contrast. Sagittal and coronal reconstructions on the technologist workstation were performed. Patient dose 700 mg/cm. FINDINGS: There is no evidence of an extra-axial collection. There is no evidence of intra-axial or extra-axial hemorrhage. The ventricles and extra-axial CSF spaces are prominent suggestive of mild generalized atrophy. There is nonspecific periventricular white matter disease. No mass, mass effect or infarct is seen. Review of bone windows is normal. No skull fracture is seen. There is a soft tissue opacification of the left frontal sinus. Visualized paranasal sinuses, mastoid air cells and middle ears are otherwise clear. IMPRESSION: No acute findings. Generalized atrophy and nonspecific periventricular white matter disease. Left frontal sinus disease. Foot CT 01/02/21 23:30 IMPRESSION: Ulcer with soft tissue gas overlying the calcaneus. Associated osseous erosion which involves the Achilles tendon attachment. This is the site of osteomyelitis seen on the previous MRI. Assessment and Plan (1) Hypoglycemia: Status: Acute (2) Elevated troponin: Status: Acute (3) ST segment depression: Status: Acute 50-year-old gentleman with complex cardiovascular issues including cardiomyopathy and polysubstance abuse who is presenting with hypoglycemia and bradycardia. He was treated with atropine, D10 and Narcan in the field. He has been found to have mildly abnormal troponin with abnormal ECG. His QTC is prolonged which is likely due to methadone. He also has some T-wave changes in the precordial leads. He has no chest discomfort shortness of breath. He has been found to have anemia which is likely from GI blood loss. I think the EKG changes are due to anemia right now. Hold aspirin and Plavix and give him blood transfusion. The care will be supportive right now. We will follow along with you. Thank you for allowing me to participate in the care of your patient. Please feel free to contact me if you have any questions.
--- NOTE | 2021-01-03 13:03 | PC.NURSE ---
pt drank 240ml of orange juice and 120ml of diet danish flaco. pt vomited 300ml of fluid. aware.
--- NOTE | 2021-01-03 13:18 | PM.CCPN ---
Subjective Subjective Date of Service: 01/03/21 Interval History: Mr. Hawk was transferred to the ICU service early this morning bec of a hypotensive episode assoc with a drop in Hb, presumably 2? GI bleed. See the pt?s H&P and PANTRY CHEF Nathaniel?s Event note from this morning. The patient is a 50 yo male with the following PMHx: Acute on chronic anemia Acute on chronic combined systolic and diastolic congestive heart failure. Reported EF of 15%. (Etiology of CMOP unknown to me at this time.) Asthma Bipolar 1 disorder BPH (benign prostatic hyperplasia) Cholelithiasis COPD (chronic obstructive pulmonary disease) Diabetes mellitus, type 2 GERD (gastroesophageal reflux disease) Hyperlipidemia Peripheral arterial disease, s/p right BKA. Peripheral neuropathy Substance abuse. On Methadone. History of laminectomy History of transurethral resection of prostate When I interviewed the patient this morning at about 11:30, he was fully awake, responsive, and oriented, although I would not call his mental processing normal, I suspect he has some kind of chronic mental/psychological derangement. The patient told me that he lives alone in a room he rents. He has a nurse who visits him daily to give him his medications, including methadone. He has no living relatives. A WELFARE SERVICE AIDE does his shopping for him. The patient was BIBA to our ED yesterday afternoon after being found down. Apparently a neighbor called EMS. He was found down with an abrasion to his nose and abrasions to his forearm. He was found to have a blood sugar of 42 with blood pressure as low as 91/52. In the field, he was given Narcan, atropine and D10. He was lethargic in the ED. He had no fever. Sat was 100% on room air. Labs notable for mild leukocytosis. Hemoglobin was 8.3 (baseline range 8.6-9.2). Initial lactic acid was 2.2, blood sugar did improve to 158. BUN/creat were 28/1.1 (similar to baseline). Initial troponin 18.0 with repeat of 45.9 and no acute EKG abnormalities. He was admitted to Medicine for treatment of acute metabolic encephalopathy and hypoglycemia. The patient has been boarded in the ED since admission bec there were no beds on the floor. Subsequent troponin litzy to 156. The patient dropped his blood pressure from the 115-140 range to the 90-100 range, and then into the 80s. Repeat hemoglobin late last night was 6.9. The patient's stool was tested and found to be Hemoccult positive, although no one is able to tell me what color it was, and reportedly, the patient has had no bowel movement yet. The troponin rise was discussed with Dr. Mccollum and he suggested no heparin because of the hemoglobin drop. Because of the hemoglobin drop associated with hypotension, the patient was transferred to the ICU service early this morning. He was transfused 2 units RBCs this morning, at 03:00 and at 06:00. Blood pressure litzy into the 120s. On my exam this morning, on history taking, the patient is vague and inconsistent. It is very hard to pin him down on anything. It seems difficult for him to maintain a train of thought. The patient is resting very comfortably, breathing easy on room air with Sat 100%. He has very vague and inconsistent complaint of right upper quadrant discomfort. See Vital Signs below. Sclerae are anicteric. He has 3-4 cm JVD at 30?. Chest is CTA. Heart rate and rhythm are regular, with normal-sounding S1 and S2, with no murmur or gallops. The abdomen is nondistended. He has normal bowel sounds. On my initial exam, he had diffuse guarding and even possibly some peritoneal signs. But when I examined him again later surreptitiously, the belly was soft and nontender. He has no edema. He?s quite thin, possibly malnourished. LABORATORY DATA: As below. Notably, hemoglobin is up to 8.8 after the 2 units. BUN/creatinine this morning were 23/1.0. ECHOCARDIOGRAM: I did a bedside echo this morning because of the past medical history of cardiomyopathy, and the acute hypotension last night. Image quality: Good. Findings: 1. Wall thickness normal. 2. LV cavity is dilated, with severe diffuse LV dysfxn. I did not see any clear RWMA. Estimated EF 10%. 3. RV size probably normal. 4. LA, RA size not adequately assessed. 5. AoV not adequately assessed. 6. MV morphologically normal with at least 1+ MR by color ebonie. 7. TV morphologically normal, but unable to obtain any color flow or continuous wave Doppler signals. 8. IVC normal (1.6cm) with about 50% insp collapse. Estimated CVP therefore about 5-8mm. (Unable to estimate RVSP.) IMPRESSION: 1. Hypoglycemia. Lantus insulin has been held. Currently on sliding scale. 2. Altered mental status on presentation. Secondary to metabolic encephalopathy, secondary to hypoglycemia. 3. Hemoglobin drop. Presumably secondary to GI bleed, presumably upper, given that the patient has not yet had a bowel movement. Discussed at great length with Dr. Mendez. Given the patient's significant cardiomyopathy, and even troponin bump, this should be managed noninvasively (conservatively) if possible. At this point, I would not sink an NG tube. The main thing is to note the color of his stool when he has a bowel movement. I've asked the nurses to do so. In the meantime, as long as he is stable, we?ll treat with PPI and Carafate, per Dr. Mendez?s rec. Hold Aspirin. Next Hb check at 2pm. 4. Hypotension. Resolved post-transfusion. 5. CMOP with PVD. I don't know for certain whether Mr. Hawk has CAD, but given that he definitely has PVD, it is likely. Continue statin. The significance of his troponin bump is unclear. I'm checking another one this afternoon at 2pm. 6. On methadone at home. Nurse to verify dose. 7. DVT prophylaxis. Seq compression on left leg. Hold Lovenox. 8. ID: No acute infection at this time, no abx required. Stable for transfer to [facility] [place]. Will sign out to hospitalists. Time (including extended chart rev): 90 min ([id number] [phone] [id number]) Physical Exam Vital Signs: Vital Signs: Last Vital Signs Temp 98.1 F 01/03/21 07:44 Pulse 72 01/03/21 10:36 Resp 17 01/03/21 10:36 BP 124/65 01/03/21 10:36 Pulse Ox 100 01/03/21 10:36 Body Mass Index 19.9 Objective Data Labs CBC & Chem 7: 01/03/21 07:56 01/03/21 07:56 Labs: Laboratory Results - last 24 hr 01/02/21 01/02/21 01/02/21 12:43 13:21 13:59 WBC RBC Hgb Hct MCV MCH MCHC RDW Plt Count MPV Immature Gran % (Auto) Neut % (Auto) Lymph % (Auto) [place] % (Auto) Eos % (Auto) Baso % (Auto) Lymph # (Auto) [place] # (Auto) Eos # (Auto) Baso # (Auto) Abs Immat Gran (auto) Absolute Neuts (auto) Absolute Nucleated RBC Nucleated RBC % (auto) Smear Tech's Comments PTT (Heparin Protocol) Sodium Potassium Chloride Carbon Dioxide Anion Gap BUN Creatinine Estim Creat Clear Calc Estimated GFR POC Glucose 214 H 190 H Random Glucose Lactic Acid Lactic Acid Fup @ 2Hr Lactic Acid Fup @ 4Hr Calcium Phosphorus Troponin I High Sens B-Natriuretic Peptide Urine RBC 0-2 Urine WBC 0 Ur Squamous Epith Cells NONE Urine Bacteria NONE Stool Occult Blood Blood Type Antibody Screen Crossmatch 01/02/21 01/02/21 01/02/21 14:42 15:06 15:20 WBC RBC Hgb Hct MCV MCH MCHC RDW Plt Count MPV Immature Gran % (Auto) Neut % (Auto) Lymph % (Auto) [place] % (Auto) Eos % (Auto) Baso % (Auto) Lymph # (Auto) [place] # (Auto) Eos # (Auto) Baso # (Auto) Abs Immat Gran (auto) Absolute Neuts (auto) Absolute Nucleated RBC Nucleated RBC % (auto) Smear Tech's Comments PTT (Heparin Protocol) Sodium Potassium Chloride Carbon Dioxide Anion Gap BUN Creatinine Estim Creat Clear Calc Estimated GFR POC Glucose 158 H Random Glucose Lactic Acid Lactic Acid Fup @ 2Hr 2.2 H* Lactic Acid Fup @ 4Hr Calcium Phosphorus Troponin I High Sens 45.9 H D B-Natriuretic Peptide Urine RBC Urine WBC Ur Squamous Epith Cells Urine Bacteria Stool Occult Blood Blood Type Antibody Screen Crossmatch 01/02/21 01/02/21 01/02/21 18:26 18:26 18:27 WBC RBC Hgb Hct MCV MCH MCHC RDW Plt Count MPV Immature Gran % (Auto) Neut % (Auto) Lymph % (Auto) [place] % (Auto) Eos % (Auto) Baso % (Auto) Lymph # (Auto) [place] # (Auto) Eos # (Auto) Baso # (Auto) Abs Immat Gran (auto) Absolute Neuts (auto) Absolute Nucleated RBC Nucleated RBC % (auto) Smear Tech's Comments PTT (Heparin Protocol) Sodium Potassium Chloride Carbon Dioxide Anion Gap BUN Creatinine Estim Creat Clear Calc Estimated GFR POC Glucose Random Glucose Lactic Acid Cancelled Lactic Acid Fup @ 2Hr Lactic Acid Fup @ 4Hr Cancelled Calcium Phosphorus Troponin I High Sens 156.3 H D B-Natriuretic Peptide 997 H Urine RBC Urine WBC Ur Squamous Epith Cells Urine Bacteria Stool Occult Blood Blood Type Antibody Screen Crossmatch 01/02/21 01/02/21 01/02/21 20:35 22:32 23:53 WBC 11.1 H RBC 2.48 L Hgb 6.9 L* Hct 21.2 L MCV 85.5 MCH 27.8 MCHC 32.5 RDW 15.9 Plt Count 292 MPV 8.4 L Immature Gran % (Auto) 0.5 H Neut % (Auto) 87.6 H Lymph % (Auto) 4.9 L [place] % (Auto) 6.7 Eos % (Auto) 0.2 Baso % (Auto) 0.1 Lymph # (Auto) 0.6 L [place] # (Auto) 0.7 Eos # (Auto) 0.0 Baso # (Auto) 0.0 Abs Immat Gran (auto) 0.06 H Absolute Neuts (auto) 9.7 H Absolute Nucleated RBC 0.000 Nucleated RBC % (auto) 0.0 Smear Tech's Comments VERIFIED PTT (Heparin Protocol) Sodium Potassium Chloride Carbon Dioxide Anion Gap BUN Creatinine Estim Creat Clear Calc Estimated GFR POC Glucose Random Glucose Lactic Acid 2.0 Lactic Acid Fup @ 2Hr Lactic Acid Fup @ 4Hr Calcium Phosphorus Troponin I High Sens B-Natriuretic Peptide Urine RBC Urine WBC Ur Squamous Epith Cells Urine Bacteria Stool Occult Blood POS Blood Type Antibody Screen Crossmatch 01/02/21 01/02/21 01/03/21 23:53 23:53 00:47 WBC 11.3 H RBC 2.38 L Hgb 6.5 L* Hct 20.1 L* MCV 84.5 MCH 27.3 MCHC 32.3 RDW 16.0 Plt Count 258 MPV 8.3 L Immature Gran % (Auto) 0.6 H Neut % (Auto) 86.2 H Lymph % (Auto) 5.3 L [place] % (Auto) 7.3 Eos % (Auto) 0.4 Baso % (Auto) 0.2 Lymph # (Auto) 0.6 L [place] # (Auto) 0.8 Eos # (Auto) 0.0 Baso # (Auto) 0.0 Abs Immat Gran (auto) 0.07 H Absolute Neuts (auto) 9.7 H Absolute Nucleated RBC 0.000 Nucleated RBC % (auto) 0.0 Smear Tech's Comments PTT (Heparin Protocol) 42.9 L Sodium 134 L Potassium 3.7 Chloride 99 Carbon Dioxide 24 Anion Gap 15 BUN 26 H Creatinine 1.18 Estim Creat Clear Calc 58.0 Estimated GFR > 60 POC Glucose Random Glucose 160 H D Lactic Acid Lactic Acid Fup @ 2Hr Lactic Acid Fup @ 4Hr Calcium 7.8 L D Phosphorus 3.5 Troponin I High Sens B-Natriuretic Peptide Urine RBC Urine WBC Ur Squamous Epith Cells Urine Bacteria Stool Occult Blood Blood Type Antibody Screen Crossmatch 01/03/21 01/03/21 01/03/21 00:47 01:56 07:48 WBC RBC Hgb Hct MCV MCH MCHC RDW Plt Count MPV Immature Gran % (Auto) Neut % (Auto) Lymph % (Auto) [place] % (Auto) Eos % (Auto) Baso % (Auto) Lymph # (Auto) [place] # (Auto) Eos # (Auto) Baso # (Auto) Abs Immat Gran (auto) Absolute Neuts (auto) Absolute Nucleated RBC Nucleated RBC % (auto) Smear Tech's Comments PTT (Heparin Protocol) Sodium Potassium Chloride Carbon Dioxide Anion Gap BUN Creatinine Estim Creat Clear Calc Estimated GFR POC Glucose 129 H 47 L* Random Glucose Lactic Acid Lactic Acid Fup @ 2Hr Lactic Acid Fup @ 4Hr Calcium Phosphorus Troponin I High Sens B-Natriuretic Peptide Urine RBC Urine WBC Ur Squamous Epith Cells Urine Bacteria Stool Occult Blood Blood Type B Positive Antibody Screen NEGATIVE Crossmatch See Detail 01/03/21 01/03/21 01/03/21 07:56 07:56 08:13 WBC 12.0 H RBC 3.19 L D Hgb 8.8 L D Hct 27.5 L D MCV 86.2 MCH 27.6 MCHC 32.0 RDW 14.9 Plt Count 264 MPV 8.2 L Immature Gran % (Auto) 0.4 Neut % (Auto) 87.4 H Lymph % (Auto) 3.2 L [place] % (Auto) 7.5 Eos % (Auto) 1.3 Baso % (Auto) 0.2 Lymph # (Auto) 0.4 L [place] # (Auto) 0.9 Eos # (Auto) 0.2 Baso # (Auto) 0.0 Abs Immat Gran (auto) 0.05 H Absolute Neuts (auto) 10.5 H Absolute Nucleated RBC 0.000 Nucleated RBC % (auto) 0.0 Smear Tech's Comments VERIFIED PTT (Heparin Protocol) Sodium 136 Potassium 3.7 Chloride 101 Carbon Dioxide 27 Anion Gap 12 BUN 23 H Creatinine 1.06 Estim Creat Clear Calc 64.5 Estimated GFR > 60 POC Glucose 151 H Random Glucose 192 H Lactic Acid Lactic Acid Fup @ 2Hr Lactic Acid Fup @ 4Hr Calcium 7.9 L Phosphorus Troponin I High Sens B-Natriuretic Peptide Urine RBC Urine WBC Ur Squamous Epith Cells Urine Bacteria Stool Occult Blood Blood Type Antibody Screen Crossmatch 01/03/21 01/03/21 10:38 11:48 WBC RBC Hgb Hct MCV MCH MCHC RDW Plt Count MPV Immature Gran % (Auto) Neut % (Auto) Lymph % (Auto) [place] % (Auto) Eos % (Auto) Baso % (Auto) Lymph # (Auto) [place] # (Auto) Eos # (Auto) Baso # (Auto) Abs Immat Gran (auto) Absolute Neuts (auto) Absolute Nucleated RBC Nucleated RBC % (auto) Smear Tech's Comments PTT (Heparin Protocol) Sodium Potassium Chloride Carbon Dioxide Anion Gap BUN Creatinine Estim Creat Clear Calc Estimated GFR POC Glucose 66 112 Random Glucose Lactic Acid Lactic Acid Fup @ 2Hr Lactic Acid Fup @ 4Hr Calcium Phosphorus Troponin I High Sens B-Natriuretic Peptide Urine RBC Urine WBC Ur Squamous Epith Cells Urine Bacteria Stool Occult Blood Blood Type Antibody Screen Crossmatch Progress Note: A&P Time Spent With Patient Time: Total time spent is greater than 50% in coordination of care (as documented) at patient's floor/unit and/or counseling patient: Total time spent with greater than 50% in coordination of care (as documented) at patient's floor/unit and/or counseling patient:: 0
--- NOTE | 2021-01-03 13:33 | PC.NURSE ---
Called [facility] [place] in [place], spoke to Jaylene from answering service. She will pass message on to provider and provider will call [facility] ED to verify Methadone dose.
--- NOTE | 2021-01-03 13:52 | PC.NURSE ---
replaced patients blanket with warm blanket, had patient turn to side to determine if they had a bowel movement. pt has not had bowel movement yet. aware
[2021-01-03 14:02] LABS: Glucose, Whole Blood 113 mg/dL (60-115)
--- NOTE | 2021-01-03 14:14 | PC.NURSE ---
Dr. Cross called and said Dominik will be transferred to [facility] under hospitalist care. New orders for EKG and labs at 2pm.
[2021-01-03 14:37] LABS: Hematocrit 27.4 % (42-52)
[2021-01-03 14:52] LABS: Lactic Acid 1.2 mmol/L (0.5-2.0)
--- NOTE | 2021-01-03 15:06 | PC.NURSE ---
pt has nickel-sized pressure ulcer between anus and scrotum. moist pink center with clear pink borders. no drainage present. picture obtained and added to chart. md alvarado
[2021-01-03 15:25] LABS: Troponin-I High Sensitivity 138.2 ng/L (<3.5-35.0)
--- NOTE | 2021-01-03 15:34 | PC.NURSE ---
REPORT TAKEN FROM ESTEPHANIA PHILLIP PT SITTING UP IN [facility], ADMITTED TO HOSPITALIST SERVICE. AWAITING TRANSFER. MULTIPLE IV INFUSIONS AND MEDICATIONS NOT DOCUMENTED OR TITRATED IN MEDICAL EMAR. NO CORRELATING CONTEXT NOTES. CHARTED AGAINST MULTIPLE FLAGGING MEDS FROM YESTERDAY. .
[2021-01-03] MEDS: Sucralfate 1 GM TABLET PO ×2 (16:50→20:30)
[2021-01-03] MEDS: 0.9 % Sodium Chloride Flush 3 ML SYRINGE IVFLUSH (18:00)
[2021-01-03] MEDS: ondansetron HCL 4 MG/2 ML VIAL IVPUSH (18:00)
[2021-01-03 19:23] LABS: Glucose, Whole Blood 91 mg/dL (60-115)
[2021-01-03] MEDS: Atorvastatin Calcium 20 MG TABLET PO (20:30)
[2021-01-04] VITALS: BP 122/62; PULSE 68; RESP 14; TEMP 36.8; O2SAT 95
[2021-01-04 04:00] VITALS: BP 110/56; PULSE 58; RESP 12; O2SAT 99
[2021-01-04] MEDS: Pantoprazole Sodium 40 MG/10 ML VIAL IVPUSH (06:34)
[2021-01-04] MEDS: Sucralfate 1 GM TABLET PO ×4 (07:14→20:45)
[2021-01-04] MEDS: 0.9 % Sodium Chloride Flush 3 ML SYRINGE IVFLUSH ×2 (07:14→16:32)
[2021-01-04 07:23] VITALS: BP 127/57; PULSE 69; RESP 15; TEMP 37.1; O2SAT 100
[2021-01-04 07:45] LABS: Glucose, Whole Blood 84 mg/dL (60-115)
[2021-01-04 08:16] LABS: MANUAL DIFF FLAG NO
[2021-01-04 08:21] LABS: Basophils Percent Auto 0.3 % (0-2); Eosinophils Absolute Auto 0.3 X10*3/uL (0.0-0.4); Eosinophils Percent Auto 2.5 % (0-4); Hematocrit 32.7 % (42-52); Hemoglobin 10.6 g/dl (14.0-18.0); Imm Gran Abs Auto 0.07 X10*3/uL (0.00-0.03); Imm Gran Pct Auto 0.6 % (0.0-0.4); Lymphocytes Absolute Auto 0.8 X10*3/uL (1.2-4.9); Lymphocytes Percent Auto 7.4 % (20-40); Mean Corpuscular HGB Conc 32.4 g/dl (31.0-36.0); Mean Corpuscular Hemoglobin 27.8 pg (27.0-33.0); Mean Corpuscular Volume 85.8 fL (80-98); Mean Platelet Volume 8.3 fL (9.4-12.4); Monocytes Absolute Auto 0.9 X10*3/uL (0.1-1.2); Monocytes Percent Auto 7.9 % (2-11); Neutrophils Absolute Auto 8.9 X10*3/uL (2.0-8.3); Neutrophils Percent Auto 81.3 % (45-73); Platelet Count 298 X10*3/uL (160-400); Red Blood Count 3.81 X10*6/uL (4.60-5.80); Red Cell Distribution Width 14.8 % (11.0-16.0); White Blood Count 10.9 X10*3/uL (4.8-10.8)
--- NOTE | 2021-01-04 09:07 | PC.NURSE ---
[facility] ([phone]) CALLED AT 0900 TO VERIFY METHADONE DOSE. MESSAGE LEFT AND WAITING FOR A CALL BACK.
[2021-01-04 09:11] LABS: Anion Gap 14 (12-20); Blood Urea Nitrogen 14 mg/dL (9-16); Calcium 8.4 mg/dL (8.4-10.2); Carbon Dioxide 25 mmol/L (22-29); Chloride 97 mmol/L (96-108); Estimated Glomerular Filt Rate > 60; Glucose Random 136 mg/dL (60-115); Potassium 3.9 mmol/L (3.3-5.1); Sodium 132 mmol/L (135-145)
--- NOTE | 2021-01-04 10:49 | MHC.CLN ---
RE: CONSULT PT WITH [facility] WILL START [place]LIN TO PROMOTE WOUND HEALING
--- NOTE | 2021-01-04 10:49 | HO.PM.IMPN ---
Subjective Subjective Date of Service: 01/04/21 Interval History: feeling much better today Cardiovascular Cardiovascular: Reports no additional cardiovascular complaints Gastrointestinal Gastrointestinal: Reports no additional gastrointestinal complaints Physical Exam Vital Signs: Vital Signs: Last Vital Signs Temp 98.8 F 01/04/21 07:23 Pulse 69 01/04/21 07:23 Resp 15 01/04/21 07:23 BP 127/57 L 01/04/21 07:23 Pulse Ox 100 01/04/21 07:23 Body Mass Index 19.9 General: AO X 3, no acute distress Resp: CTA bilateral CVS: S1,S2,RRR GI: soft, non tender, non distended Neuro: motor grossly intact Psych: appropriate affect Objective Data Current Medications Generic Name Dose Route Start Last Admin Trade Name Freq PRN Reason Stop Dose Admin Albuterol Sulfate 2.5 mg 01/02/21 17:35 Albuterol Sulfate (0.083%) 2.5 Mg/3 Ml Vial.Neb INHALE Q4H PRN Shortness Of Breath Or Wheezing Albuterol Sulfate 2 puff 01/02/21 17:35 Albuterol Sulfate 90 Mcg 8 Gm Inhaler INHALE Q4H PRN Shortness Of Breath Atorvastatin Calcium 20 mg 01/02/21 21:00 01/03/21 20:30 Atorvastatin Calcium 20 Mg Tablet PO 20 mg BEDTIME VENTURA Administration Insulin Human Lispro 0 unit 01/03/21 14:00 01/04/21 07:14 Insulin Lispro 100 Unit/Ml 3 Ml Vial SUBCUT Not Given Q6H [facility] Protocol Methadone HCl 50 mg 01/04/21 10:00 Methadone Hcl 1 Mg/0.1 Ml Oral.Conc PO DAILY [facility] Ondansetron HCl 4 mg 01/02/21 17:35 01/03/21 18:00 Ondansetron Hcl 4 Mg/2 Ml Vial IVPUSH 4 mg Q8H PRN Administration Nausea and Vomiting Pantoprazole Sodium 40 mg 01/03/21 16:30 01/04/21 06:34 Pantoprazole Sodium 40 Mg/10 Ml Vial IVPUSH 40 mg BID@0630,1630 VENTURA Administration Sodium Chloride 3 ml 01/03/21 00:00 01/04/21 07:14 0.9 % Sodium Chloride Flush 3 Ml Syringe IVFLUSH 3 ml QSHIFT VENTURA Administration Sucralfate 1 gm 01/03/21 16:30 01/04/21 07:14 Sucralfate 1 Gm Tablet PO 1 gm QIDACHS VENTURA Administration Labs CBC & Chem 7: 01/04/21 07:55 01/04/21 07:55 Microbiology Microbiology Results: Microbiology 01/02/21 11:55 Blood - Venous Blood Culture - Preliminary No growth after 24 hours. 01/02/21 11:56 Blood - Venous Blood Culture - Preliminary No growth after 24 hours. Assessment and Plan (1) Acute on chronic anemia: Status: Acute Assessment and Plan: 50-year-old man was admitted after having fall and found to have hypoglycemia, AMS. then noted to have elevated troponins, was started on iv heparin, then became hypotensive with drop in hgb. was upgraded to icu, transfused and started on PPI. hgn improved, hypotension resolved, hypoglycemia resolved, AMS resolved, patient was downgraded 01/03 afternoon to medicine. metabolic encephalopathy due to hypoglycemia unclear cause, possibly took insulin without eating enough acute blood loss anemia complicated by hypotension conservative management monitor hgb - stable hypotension - resolved ppi, carafate if stable transition to po and no plan for scope NSTEMI type II, avoid anticoagulation for now due to gi bleed chf with reduced EF -10%, ischemic holding antiplatelet, aldactone opiate dependence on methadone
[2021-01-04 11:15] VITALS: BP 108/54; PULSE 63; RESP 12; TEMP 37.2; O2SAT 98
[2021-01-04 13:28] LABS: Glucose, Whole Blood 127 mg/dL (60-115)
--- NOTE | 2021-01-04 13:33 | MHC.CM.PN ---
Male 50 DX HYPOGLYCEMIA. Pt lives alone in an apartment. R BKA, WC bound. He is independent functional mobility with equipment. He is assisted from neighbors. HCP on file. DP home no services BLS transport. CM will follow.
[2021-01-04 15:53] VITALS: BP 136/72; PULSE 67; RESP 20; TEMP 37.6; O2SAT 99
[2021-01-04 16:55] LABS: Glucose, Whole Blood 96 mg/dL (60-115)
[2021-01-04 19:16] VITALS: BP 120/61; PULSE 63; RESP 20; TEMP 36.9; O2SAT 98
[2021-01-04 20:34] LABS: Glucose, Whole Blood 135 mg/dL (60-115)
--- NOTE | 2021-01-04 20:42 | P.CNID_ITS ---
History of Present Illness Data of Consult Service Date: 01/04/21 Requesting physician: Olvin Bliss Primary Care Provider: [facility] Reason for consult: left foot infection He presents to hospital after found lethargic He takes alcohol and cocaine. He has had right foot amputation and left ulcer heel which is malodorous He has had stent leg placed per Dr Vaughn Review of Systems Review of Systems: Yes all other systems are reviewed and are negative [facility] Past Medical History Medical History Acute on chronic anemia Acute on chronic combined systolic and diastolic congestive heart failure Asthma Bipolar 1 disorder BPH (benign prostatic hyperplasia) Cholelithiasis COPD (chronic obstructive pulmonary disease) Diabetes mellitus, type 2 GERD (gastroesophageal reflux disease) Hyperlipidemia Peripheral arterial disease Peripheral neuropathy Substance abuse Family History Family History Father Chronic mental illness Hypertension Asthma Stroke Mother Asthma Diabetes Coronary artery disease Family history: reviewed and not pertinent Surgical History Surgical History History of amputation History of laminectomy History of transurethral resection of prostate Hx of BKA Social History Social History Household Members: None Housing: Other Alcohol intake: current Alcohol intake frequency: does not drink Alcohol type: beer Smoking Status: Never smoker Second Hand Smoke Exposure: No Substance Use Type: Marijuana Advance Directives Date on File: 11/24/20 service: No Current occupational status: disabled Meds Allergies Allergy/AdvReac Type Severity Reaction Status Date / Time ertapenem Allergy Intermediate Hives Verified 01/02/21 20:04 vancomycin [VANCOMYCIN] Allergy Intermediate HIVES Verified 10/04/20 06:49 Chocolate Allergy Unknown Rash Verified 10/04/20 06:49 ciprofloxacin [From CIPRO] Allergy Unknown SWELLING Verified 10/04/20 06:49 hydrocortisone [Cipro HC] Allergy Unknown Unknown Verified 10/04/20 06:49 sulfamethoxazole Allergy Unknown rash Verified 10/04/20 06:49 [From BACTRIM] trimethoprim [From BACTRIM] Allergy Unknown rash Verified 10/04/20 06:49 turkey [TURKEY] Allergy Unknown RASH Verified 10/04/20 06:49 Active Medications: Current Medications Generic Name Dose Route Start Last Admin Trade Name Freq PRN Reason Stop Dose Admin Acetaminophen 650 mg 01/04/21 16:46 Acetaminophen 325 Mg Tablet PO Q6H PRN pain or fever Albuterol Sulfate 2.5 mg 01/02/21 17:35 Albuterol Sulfate (0.083%) 2.5 Mg/3 Ml Vial.Neb INHALE Q4H PRN Shortness Of Breath Or Wheezing Albuterol Sulfate 2 puff 01/02/21 17:35 Albuterol Sulfate 90 Mcg 8 Gm Inhaler INHALE Q4H PRN Shortness Of Breath Atorvastatin Calcium 20 mg 01/02/21 21:00 01/03/21 20:30 Atorvastatin Calcium 20 Mg Tablet PO 20 mg BEDTIME [facility] Administration Insulin Human Lispro 0 unit 01/04/21 16:30 01/04/21 16:42 Insulin Lispro 100 Unit/Ml 3 Ml Vial SUBCUT Not Given [facility] Protocol Methadone HCl 50 mg 01/04/21 10:00 01/04/21 11:31 Methadone Hcl 1 Mg/0.1 Ml Oral.Conc PO 50 mg DAILY [facility] Administration Ondansetron HCl 4 mg 01/02/21 17:35 01/03/21 18:00 Ondansetron Hcl 4 Mg/2 Ml Vial IVPUSH 4 mg Q8H PRN Administration Nausea and Vomiting Pantoprazole Sodium 40 mg 01/03/21 16:30 01/04/21 16:35 Pantoprazole Sodium 40 Mg/10 Ml Vial IVPUSH Not Given BID@0630,1630 [facility] Sodium Chloride 3 ml 01/03/21 00:00 01/04/21 16:32 0.9 % Sodium Chloride Flush 3 Ml Syringe IVFLUSH 3 ml QSHIFT [facility] Administration Sucralfate 1 gm 01/03/21 16:30 01/04/21 16:32 Sucralfate 1 Gm Tablet PO 1 gm QIDACHS [facility] Administration Home Medications Medication Instructions Recorded Confirmed Last Taken Type FreeStyle Lite Strips 08/12/20 08/12/20 Unknown History albuterol sulfate 2 puff INHALATION Q4H PRN 08/12/20 01/02/21 Unknown History albuterol sulfate 2.5 mg INHALATION Q4H PRN 08/12/20 01/02/21 Unknown History blood-glucose meter [FreeStyle 08/12/20 08/12/20 Unknown History [place] Lite] cane 08/12/20 08/12/20 Unknown History lancets 08/12/20 08/12/20 Unknown History magnesium oxide [MagOx] 400 mg PO DAILY 08/12/20 01/02/21 Unknown History methadone 50 mg PO QAM 08/12/20 01/04/21 01/02/21 History pen needle, diabetic 08/12/20 08/12/20 Unknown History Eucerin 1 applic TOPICAL DAILY PRN 08/14/20 01/02/21 Unknown History Lantus U-100 Insulin 12 unit SUBCUT QPM 08/14/20 01/02/21 Unknown History aspirin 81 mg PO DAILY 08/14/20 01/02/21 Unknown History atorvastatin 20 mg PO BEDTIME 08/14/20 01/02/21 Unknown History carvedilol 6.25 mg PO BID 08/14/20 01/02/21 Unknown History cetirizine 10 mg PO DAILY 08/14/20 01/02/21 Unknown History clotrimazole 1 applic TOPICAL TID 08/14/20 01/02/21 Unknown History ergocalciferol (vitamin D2) 1,250 mcg PO QWEEK 08/14/20 01/02/21 Unknown History fluticasone propionate [Flonase 1 spray INTRANASAL DAILY 08/14/20 01/02/21 Unknown History Allergy Relief] gabapentin 200 mg PO TID 08/14/20 01/02/21 Unknown History montelukast 10 mg PO BEDTIME 08/14/20 01/02/21 Unknown History polyethylene glycol 3350 [Miralax] 17 g PO DAILY 08/14/20 01/02/21 Unknown History sennosides [senna] 8.6 mg PO BEDTIME PRN 08/14/20 01/02/21 Unknown History spironolactone 12.5 mg PO DAILY 08/14/20 01/02/21 Unknown History tamsulosin 0.4 mg PO DAILY 08/14/20 01/02/21 Unknown History zinc sulfate 220 mg PO DAILY 08/14/20 01/02/21 Unknown History Narcan 4 mg INTRANASAL Q3M PRN 11/24/20 01/02/21 Unknown History Physical Exam Vital Signs: Vital Signs: Last Vital Signs Temp 98.4 F 01/04/21 19:16 Pulse 63 01/04/21 19:16 Resp 20 01/04/21 19:16 BP 120/61 01/04/21 19:16 Pulse Ox 98 01/04/21 19:16 Body Mass Index 19.9 Const: General: cooperative HENMT: Head: Yes normal to inspection and Yes occipital foramen tenderness Mouth: Normal oral and palatal mucosa present Neck: Neck: Yes normal visual inspection Resp: Effort & Inspection: normal respiratory effort Cardio: Rate: regular rate Rhythm: regular rhythm GI: Palpation (GI): Soft to palpation and nontender : General: Yes no CVA tenderness Back/Spine/Pelvis: Back: no CVA tenderness Skin: General skin exam: no rashes or lesions noted Extrem: Other: right amputation foot,left ulcer foot Results Labs CBC & Chem 7: 01/05/21 06:47 01/05/21 06:47 Labs: Short CBC 01/04/21 Range/Units 07:55 WBC 10.9 H (4.8-10.8) X10*3/uL Hgb 10.6 L (14.0-18.0) g/dl Hct 32.7 L (42-52) % Plt Count 298 (160-400) X10*3/uL BMP 01/04/21 07:55 Sodium 132 L Potassium 3.9 Chloride 97 Carbon Dioxide 25 BUN 14 Creatinine 0.90 Calcium 8.4 D Microbiology Microbiology Results: Microbiology 01/02/21 11:55 Blood - Venous Blood Culture - Preliminary No growth after 48 hours. 01/02/21 11:56 Blood - Venous Blood Culture - Preliminary No growth after 48 hours. Assessment and Plan (1) Unstageable pressure ulcer of heel: Qualifiers: Laterality: left Qualified Code(s): L89.620 - Pressure ulcer of left heel, unstageable Problem details: There is osteomyelitis Multiple organisms can be present Status: Acute Continue see Surgery Zosyn and possible Vancomycin Possible culture (2) Peripheral arterial disease: Status: Acute
[2021-01-04] MEDS: Acetaminophen 325 MG TABLET 650 MG PO (20:44)
[2021-01-04] MEDS: Atorvastatin Calcium 20 MG TABLET PO (20:45)
[2021-01-04] MEDS: Piperacillin Sodium/Tazobactam 3.375 GM in 0.9 % Sodium Chloride 50 ML IV (21:24)
[2021-01-05] VITALS: BP 110/61; PULSE 64; RESP 18; TEMP 37.2; O2SAT 99
[2021-01-05] MEDS: 0.9 % Sodium Chloride Flush 3 ML SYRINGE IVFLUSH ×2 (00:57→08:20)
[2021-01-05] MEDS: Piperacillin Sodium/Tazobactam 3.375 GM in 0.9 % Sodium Chloride 50 ML IV ×2 (03:47→08:18)
[2021-01-05 04:00] VITALS: BP 119/62; PULSE 63; RESP 16; TEMP 36.2; O2SAT 97
[2021-01-05 06:57] LABS: MANUAL DIFF FLAG NO
[2021-01-05 07:07] LABS: Basophils Percent Auto 0.3 % (0-2); Eosinophils Absolute Auto 0.3 X10*3/uL (0.0-0.4); Eosinophils Percent Auto 2.7 % (0-4); Hematocrit 31.1 % (42-52); Hemoglobin 10.2 g/dl (14.0-18.0); Imm Gran Abs Auto 0.04 X10*3/uL (0.00-0.03); Imm Gran Pct Auto 0.4 % (0.0-0.4); Lymphocytes Absolute Auto 0.8 X10*3/uL (1.2-4.9); Lymphocytes Percent Auto 7.7 % (20-40); Mean Corpuscular HGB Conc 32.8 g/dl (31.0-36.0); Mean Corpuscular Volume 85.4 fL (80-98); Mean Platelet Volume 8.3 fL (9.4-12.4); Monocytes Absolute Auto 0.9 X10*3/uL (0.1-1.2); Monocytes Percent Auto 8.7 % (2-11); Neutrophils Absolute Auto 8.1 X10*3/uL (2.0-8.3); Neutrophils Percent Auto 80.2 % (45-73); Platelet Count 285 X10*3/uL (160-400); Red Blood Count 3.64 X10*6/uL (4.60-5.80); Red Cell Distribution Width 14.6 % (11.0-16.0); White Blood Count 10.1 X10*3/uL (4.8-10.8)
--- NOTE | 2021-01-05 07:30 | CA_ITS ---
Transthoracic Echocardiogram Patient (Last, First, Middle): Dominik Hawk R Gender: Male Date of : 1970 Age: 50 Procedure Date: 01/05/2021 Procedure Type: Transthoracic Echocardiogram Location: S3E Height: 167.64 cm Weight: 55.79 kg BSA: 1.63 m2 Heart Rate: bpm BP: 119 / 62 mmHg Removable Prosthodontist: TEETEE Referring MD: Parvin Cordova NP Dancing Instructor: Bishop Francisco MD Symptoms: heart failure Study Quality: Good ECG Rhythm: Sinus Conclusions: - 1. Severe LV systolic dysfunction with LVEF of 15-20% with impaired relaxation filling pattern 2. No gross pericardial effusion Findings Left Ventricle The left ventricular systolic function is severely decreased. The visually estimated ejection fraction is between 15-20%. There is severe global hypokinesis. Spectral Doppler is indicative of an impaired relaxation filling pattern. E/E prime ratio is between 8 and 15 consistent with indeterminate filling pressures. Right Ventricle Mildly increased right ventricular cavity size. There is low normal right ventricular systolic function. Pericardium/Pleural There is no evidence of pericardial effusion. Prior Study Comparison No significant change compared to prior study dated: 08/12/2020. Measurements 2D Linear Measurements IVSd: 1.16 0.6-0.9/0.6-1.0 cm LVIDd: 5.77 3.9-5.3/4.2-5.9 cm LVIDd Index: 3.54 2.4-3.2/2.2-3.1 cm/m2 LVIDs: 5.41 2.0-3.6 cm LVPWd: 0.98 0.7-1.1 cm LV Mass: 313.95 67-162/88-224 g LV Mass Index: 192.61 43-95/49-115 g/m2 2D Systolic Function EF 4C: 25.80 >55% EF 2C: 14.70 >55% EF BiP: 21.00 >55% Tricuspid Valve TR Pk Ricardo: 1.48 TR Pk Grad: 9.00 Updated in Other Vendor System with Status of Final Bishop Francisco MD electronically signed on 01/05/2021 12:30:54 PM with status of Final
[2021-01-05 07:47] LABS: Alanine Aminotransferase 12 U/L (0-40); Alkaline Phosphatase 110 U/L (39-117); Anion Gap 12 (12-20); Aspartate Amino Transferase 21 U/L (5-37); Bilirubin Direct 0.5 mg/dL (0.0-0.5); Bilirubin Total 0.7 mg/dL (0.0-1.0); Blood Urea Nitrogen 17 mg/dL (9-16); Calcium 8.5 mg/dL (8.4-10.2); Carbon Dioxide 29 mmol/L (22-29); Chloride 95 mmol/L (96-108); Creatinine Clr Calc Pharmacy 74.3; Estimated Glomerular Filt Rate > 60; Glucose Fasting 106 mg/dL (60-99); Magnesium 1.7 mg/dL (1.6-2.6); Potassium 3.9 mmol/L (3.3-5.1); Sodium 132 mmol/L (135-145); Total Protein 7.7 g/dL (6.5-8.0)
[2021-01-05 07:49] VITALS: BP 132/88; PULSE 64; RESP 19; TEMP 37.2; O2SAT 98
[2021-01-05 08:32] LABS: Glucose, Whole Blood 125 mg/dL (60-115)
--- NOTE | 2021-01-05 10:30 | PC.NURSE ---
garcia cath removed at 1030 pt dtv at 1630
[2021-01-05 11:33] LABS: Glucose, Whole Blood 124 mg/dL (60-115)
[2021-01-05 12:00] VITALS: BP 131/64; PULSE 68; RESP 18; TEMP 36.3; O2SAT 98
[2021-01-05] MEDS: Acetaminophen 325 MG TABLET 650 MG PO (14:12)
--- NOTE | 2021-01-05 14:19 | PC.NURSE ---
pt refusing bed and chair alarm , pt educated of importance of alarm for safety, pt states he understands importance of the alarm and cont to refuse it.
--- NOTE | 2021-01-05 15:29 | P.DS_ITS ---
DS: Providers Provider Date of Service: 01/05/21 Date of admission: 01/02/21 17:35 Primary care physician: [facility] Consults: 01/02/21 17:35 Consult to Cardiology Routine Consulting Provider: Gustavo Mccollum Reason for consultation: HFrEF Has provider been notified: No 01/02/21 21:33 Consult to General Surgery Stat Consulting Provider: Jh Lima Reason for consultation: left foot necrosis Consult to Infectious Diseases Stat Consulting Provider: Zully Roblero Reason for consultation: DM foot infection 01/02/21 22:02 Consult to Cardiology Routine Consulting Provider: Gustavo Mccollum Reason for consultation: elevated trops 01/02/21 22:30 Consult to Gastroenterology Routine Consulting Provider: Derick Alvarez Reason for consultation: guaic positive stool 01/02/21 22:44 Consult to Urology Routine Consulting Provider: Hernan Donovan Reason for consultation: Urine Retension DS: Diagnosis Discharge Diagnosis (1) Unstageable pressure ulcer of heel: Status: Acute Problem details: There is osteomyelitis Multiple organisms can be present (2) Peripheral arterial disease: Status: Acute (3) Acute on chronic anemia: Status: Acute DS: Medications Discharge Medications Home Medications: Home Medications Medication Instructions Recorded Confirmed FreeStyle Lite Strips 08/12/20 08/12/20 albuterol sulfate 2 puff INHALATION Q4H PRN 08/12/20 01/02/21 albuterol sulfate 2.5 mg INHALATION Q4H PRN 08/12/20 01/02/21 blood-glucose meter [FreeStyle 08/12/20 08/12/20 [place] Lite] cane 08/12/20 08/12/20 famotidine [Pepcid] 20 mg PO BID 08/12/20 01/02/21 lancets 08/12/20 08/12/20 magnesium oxide [MagOx] 400 mg PO DAILY 08/12/20 01/02/21 methadone 50 mg PO QAM 08/12/20 01/04/21 pen needle, diabetic 08/12/20 08/12/20 Eucerin 1 applic TOPICAL DAILY PRN 08/14/20 01/02/21 Lantus U-100 Insulin 12 unit SUBCUT QPM 08/14/20 01/02/21 aspirin 81 mg PO DAILY 08/14/20 01/02/21 atorvastatin 20 mg PO BEDTIME 08/14/20 01/02/21 carvedilol 6.25 mg PO BID 08/14/20 01/02/21 cetirizine 10 mg PO DAILY 08/14/20 01/02/21 clopidogrel 75 mg PO DAILY 08/14/20 01/02/21 clotrimazole 1 applic TOPICAL TID 08/14/20 01/02/21 ergocalciferol (vitamin D2) 1,250 mcg PO QWEEK 08/14/20 01/02/21 fluticasone propionate [Flonase 1 spray INTRANASAL DAILY 08/14/20 01/02/21 Allergy Relief] gabapentin 200 mg PO TID 08/14/20 01/02/21 insulin lispro 5 unit SUBCUT TIDAC 08/14/20 01/02/21 montelukast 10 mg PO BEDTIME 08/14/20 01/02/21 polyethylene glycol 3350 [Miralax] 17 g PO DAILY 08/14/20 01/02/21 sennosides [senna] 8.6 mg PO BEDTIME PRN 08/14/20 01/02/21 spironolactone 12.5 mg PO DAILY 08/14/20 01/02/21 tamsulosin 0.4 mg PO DAILY 08/14/20 01/02/21 zinc sulfate 220 mg PO DAILY 08/14/20 01/02/21 Narcan 4 mg INTRANASAL Q3M PRN 11/24/20 01/02/21 tramadol 50 mg PO BID PRN 11/24/20 01/02/21 losartan 25 mg 01/05/21 Previous Rx's Medication Instructions Recorded furosemide 40 mg PO DAILY #30 tab 12/02/20 DS: Summary Hospital Course Hospital Course: History of presenting illness Chief Complaint: Fall 50 year old man presenting after being found down. Apparently a neighbor called EMS. he was found down with an abrasion to his nose and abrasions to his forearm. He was found to have a blood sugar of 42 with blood pressure as low as 91/52. he was given narcan, atropine and D10. He was fairly lethargic during the interview and did not offer any history. CXR showed hazy opacities are likely secondary to infectious/inflammatory small airways disease. He had no fever and only mild leukocytosis. initial lactic acid was 2.2, blood sugar did improve to 158. Initial troponin 18.0 with repeat of 45.9 and no acute EKG abnormalities. He will be admitted treatment of acute metabolic encephalopathy and hypoglycemia. Hospital course 50-year-old man was admitted after having fall and found to have hypoglycemia, AMS. then noted to have elevated troponins, was started on iv heparin, then became hypotensive with drop in hgb. was upgraded to icu, transfused and started on PPI. hct improved, hypotension resolved, hypoglycemia resolved, AMS resolved, patient was downgraded 01/03 afternoon to medical floor. metabolic encephalopathy resolved was felt to be related to hypoglycemia, seems patient noncompliant with his medications and diet he has no supportive care at home recommend to hold pre meal insulin and continue Lantus recommend to follow blood sugars closely. Patient has been recommended for continued follow-up in- hospital so arrangements can be made for outpatient services but patient refused to stay and leaving against medical advice patient is awake, alert and understand the consequences of leaving hospital with risk for recurrent fall and hypoglycemia that can lead to . acute blood loss anemia complicated by hypotension, patient did not have any active GI bleed, noted to have guaiac-positive stool, patient evaluated by Dr. Iqbal and was managed conservatively placed on PPI and Carafate patient hematocrit improved with blood transfusion, case discussed with Dr. Conley he recommend to have CBC follow-up in 1 week, will discontinue Plavix, and continue asa patient will need to follow-up with primary care physician/vascular surgeon to address continued need for Plavix with history of peripheral arterial disease, since patient appeared very weak and has no support at home with VNA services reduced only to one hour a day and has no transportation for appointment, therefore recommended patient to stay overnight till services are upgraded and will discuss case with primary care physician but patient is adamant to leave hospital against medical advice. NSTEMI type II, due to anemia, and hypotension patient had no chest discomfort or shortness of breath patient seen by Cardiology and they feel feel patient's symptoms are related to anemia. chf with reduced EF -10%, continue aldactone and Lasix will hold losartan due to low blood pressure, recommended close outpatient follow-up with Cardiology opiate dependence on methadone, Ultram discontinued Left heel ulcer due to diabetes mellitus, continue wound care with vna, no drainage noted seen by manager mountain and she recommended promote. Time Spent with Patient Time attestation: Total time spent providing and/or coordinating discharge services: Discharge coordination time: Greater than 30 minutes Physical Exam Vital Signs: Vital Signs: Last Vital Signs Temp 97.4 F 01/05/21 12:00 Pulse 68 01/05/21 12:00 Resp 18 01/05/21 12:00 BP 131/64 01/05/21 12:00 Pulse Ox 98 01/05/21 12:00 Body Mass Index 19.9 General: AO X 3, no acute distress Resp: CTA bilateral CVS: S1,S2,RRR GI: soft, non tender, non distended Left heel ulcer with black eschar no drainage Right BKA Neuro: motor grossly intact Psych: appropriate affect DS: Data Data Completed and Pending Completed studies during hospitalization [Text1]: Procedures Dilation of Left Anterior Tibial Artery using Drug-Coated Balloon, Percutaneous Approach (11/24/20) Dilation of Left Peroneal Artery using Drug-Coated Balloon, Percutaneous Approach (11/24/20) Dilation of Left Popliteal Artery using Drug-Coated Balloon, Percutaneous Approach (11/24/20) Drainage of Chest Wall, Percutaneous Approach, Diagnostic (11/24/20) Drainage of Right Pleural Cavity, Percutaneous Approach (08/31/20) Transfusion of Nonautologous Red Blood Cells into Peripheral Vein, Percutaneous Approach (08/11/20) Labs on day of discharge: Laboratory Results - last 24 hr 01/04/21 01/04/21 01/05/21 16:41 20:29 06:47 WBC 10.1 RBC 3.64 L Hgb 10.2 L Hct 31.1 L MCV 85.4 MCH 28.0 MCHC 32.8 RDW 14.6 Plt Count 285 MPV 8.3 L Immature Gran % (Auto) 0.4 Neut % (Auto) 80.2 H Lymph % (Auto) 7.7 L Schley % (Auto) 8.7 Eos % (Auto) 2.7 Baso % (Auto) 0.3 Lymph # (Auto) 0.8 L Schley # (Auto) 0.9 Eos # (Auto) 0.3 Baso # (Auto) 0.0 Abs Immat Gran (auto) 0.04 H Absolute Neuts (auto) 8.1 Absolute Nucleated RBC 0.000 Nucleated RBC % (auto) 0.0 Sodium Potassium Chloride Carbon Dioxide Anion Gap BUN Creatinine Estim Creat Clear Calc Estimated GFR POC Glucose 96 135 H Fasting Glucose Calcium Magnesium Total Bilirubin Direct Bilirubin AST ALT Alkaline Phosphatase Total Protein Albumin 01/05/21 01/05/21 01/05/21 06:47 07:47 11:27 WBC RBC Hgb Hct MCV MCH MCHC RDW Plt Count MPV Immature Gran % (Auto) Neut % (Auto) Lymph % (Auto) Schley % (Auto) Eos % (Auto) Baso % (Auto) Lymph # (Auto) Schley # (Auto) Eos # (Auto) Baso # (Auto) Abs Immat Gran (auto) Absolute Neuts (auto) Absolute Nucleated RBC Nucleated RBC % (auto) Sodium 132 L Potassium 3.9 Chloride 95 L Carbon Dioxide 29 Anion Gap 12 BUN 17 H Creatinine 0.92 Estim Creat Clear Calc 74.3 Estimated GFR > 60 POC Glucose 125 H 124 H Fasting Glucose 106 H Calcium 8.5 Magnesium 1.7 Total Bilirubin 0.7 Direct Bilirubin 0.5 AST 21 ALT 12 Alkaline Phosphatase 110 Total Protein 7.7 Albumin 3.0 L Preliminary micro results at discharge 01/02/21 11:55 Blood Culture - Preliminary Blood - Venous No growth after 48 hours. 01/02/21 11:56 Blood Culture - Preliminary Blood - Venous No growth after 48 hours. Discharge Plan Discharge Patient Disposition: Left Against Medical Advice Referrals: Ashley Pendleton MD [Physician] - 1 Week (TELE 01/11/2021 9:30. Dr. Pendleton will call you to discuss your hospital stay.) Discharge Medications: Continued albuterol sulfate 2.5 mg /3 mL (0.083 %) Solution For Nebulization 2.5 mg inhalation Q4H PRN (Reason: Shortness Of Breath Or Wheezing) RF: 0 magnesium oxide [MagOx] 400 mg (241.3 mg magnesium) Tablet 400 mg PO DAILY RF: 0 methadone 10 mg/mL Concentrate 50 mg PO QAM RF: 0 albuterol sulfate 90 mcg/actuation Hfa Aerosol Inhaler 2 puff INHALATION Q4H PRN (Reason: Shortness Of Breath) RF: 0 zinc sulfate 110 mg (25 mg zinc) Tablet 220 mg PO DAILY RF: 0 spironolactone 25 mg Tablet 12.5 mg PO DAILY RF: 0 sennosides [senna] 8.6 mg Tablet 8.6 mg PO BEDTIME PRN (Reason: Constipation) RF: 0 Lantus U-100 Insulin 100 unit/mL Solution 12 unit SUBCUT QPM RF: 0 cetirizine 10 mg Tablet 10 mg PO DAILY RF: 0 aspirin 81 mg Tablet,Delayed Release (Dr/Ec) 81 mg PO DAILY RF: 0 polyethylene glycol 3350 [Miralax] 17 gram/dose Powder 17 g PO DAILY RF: 0 carvedilol 6.25 mg Tablet 6.25 mg PO BID RF: 0 atorvastatin 20 mg Tablet 20 mg PO BEDTIME RF: 0 tamsulosin 0.4 mg Capsule 0.4 mg PO DAILY RF: 0 montelukast 10 mg Tablet 10 mg PO BEDTIME RF: 0 gabapentin 100 mg Capsule 200 mg PO TID RF: 0 ergocalciferol (vitamin D2) 1,250 mcg (50,000 unit) Capsule 1,250 mcg PO QWEEK RF: 0 fluticasone propionate [Flonase Allergy Relief] 50 mcg/actuation [place],Suspension 1 spray INTRANASAL DAILY RF: 0 clotrimazole 1 % Cream 1 applic TOPICAL TID RF: 0 Eucerin Cream 1 applic TOPICAL DAILY PRN (Reason: Dry Skin) RF: 0 Narcan 4 mg/actuation [place],Non-Aerosol 4 mg INTRANASAL Q3M PRN (Reason: OVER DOSE) RF: 0 furosemide 40 mg Tablet 40 mg PO DAILY Qty: 30 RF: 0 Discontinued famotidine [Pepcid] 20 mg Tablet 20 mg PO BID RF: 0 insulin lispro 100 unit/mL Solution 5 unit SUBCUT TIDAC RF: 0 clopidogrel 75 mg Tablet 75 mg PO DAILY RF: 0 tramadol 50 mg Tablet 50 mg PO BID PRN (Reason: Pain) RF: 0 losartan 25 mg RF: 0 No Action (DME) lancets Misc MISCELLANEOUS RF: 0 (DME) blood-glucose meter [FreeStyle [place] Lite] Kit MISCELLANEOUS RF: 0 (DME) cane Device MISCELLANEOUS RF: 0 (DME) FreeStyle Lite Strips RF: 0 (DME) pen needle, diabetic Needle MISCELLANEOUS RF: 0 Discharge Orders: Discharge Order (Routine); Ordered 01/05/21 Ordered By: Dinh Mccain Diet: diabetic diet Activity on Discharge: As tolerated Other Ambulatory Orders: Complete Blood Count no Diff (Routine) Timeframe: 1 Week Facility: [facility] - Location: Laboratory Ordered By: Dinh Mccain Complete Blood Count no Diff (Routine) Timeframe: 1 Week Facility: [facility] - Location: Laboratory Ordered By: Dinh Mccain Care Plan Goals: Close outpatient follow-up with primary care physician check CBC in 1 week Health Concerns: Anemia/hypoglycemia hypotension, left heel ulcer Plan of Treatment: Follow-up with primary care physician in 1 week Discharge Date/Time: 01/05/21 16:20
[2021-01-05 15:55] VITALS: BP 118/74; PULSE 66; RESP 18; TEMP 36.3; O2SAT 98
--- NOTE | 2021-01-05 16:06 | MHC.CM.PN ---
NURSE EXPERIMENTAL ASSEMBLER NOTE ELECTRONIC MEDICAL RECORD REVIEWED ALONG WITH CASE DISCUSSED WITH STAFF NURSE AND HOSPITLAIST SPENT MUCH TIME TRYING TO SECURE HIS VNAQ LATER FOUND OUT THAT IT WAS [facility] THEY WERE BRING OUT HIS METHADNE DAILY AND PROVIDE WOUND CARE I SPOKE WITH HIS DIVERSITY INTERN LAURA [phone] SHE VOCIED MANY7 CONCERNS REARGING HIS ABILITY TO CARE for himself due to laqck of support system,he had in the past more hours for [facility] health aides but the insurance cut them to 1 hour qd and this is not enough. for his adls , mobility needs and meal preparation patient i\[phone] HE IS ONE OF THEIR COMPLEX PATIENTS FOLLOWED BY [employer] , PAULINA TOBIN [phone] MESSAGE LEFT FR HER TO CONTACT ME. SPOKE AT LENGTH WITH HOSPITLAIST REAGINDFGD CONCERNS THAT WERE VOCIED TO ME , PRIOR TO TALKING WITH HER SHE WAS GOING TO DISCHARGE HIM, SHE WENT BACK TO TALK WITH HIM AND DESPITE LNG CONCVERSATION WITH HIM WITH REGARDS TO RISKS OF HIS HEALTH HE SIGHNED UT AGAINST MEDICAL ADVICE . I WILL FOLLOW UP WITH HIS VNA AND THE HEALTH CENTER OMORROW AM
--- NOTE | 2021-01-05 16:28 | PC.NURSE ---
pt insists on leaving [facility] , physician made aware , social workers made aware , director sports at bedside , pt states he understands risks of leaving [facility]. iv removed no issues
== END 2021-01-05 16:20 | disposition left against medical advice (07) | DRG 344 ==
LOC: HO.ED 15:25 → HO.EDOVER 18:21 → HO.ICU 01-03 16:41 → HO.S3 01-04 13:24
PROVIDERS: Anesthesiology; Hospitalist; Internal Medicine; Internal Medicine Pulmonary Disease; Nurse Practitioner Acute Care; Admitting Provider Internal Medicine; Emergency Provider Emergency Medicine; Visit Provider Hospitalist
DX: E11.649 Type 2 diabetes mellitus with hypoglycemia without coma (principal); M86.9 Osteomyelitis, unspecified; I21.A1 Myocardial infarction type 2; G93.41 Metabolic encephalopathy; E11.42 Type 2 diabetes mellitus with diabetic polyneuropathy; E11.51 Type 2 diabetes mellitus with diabetic peripheral angiopathy without gangrene; D62 Acute posthemorrhagic anemia; I95.9 Hypotension, unspecified; E11.621 Type 2 diabetes mellitus with foot ulcer; E11.69 Type 2 diabetes mellitus with other specified complication; L89.620 Pressure ulcer of left heel, unstageable; F11.20 Opioid dependence, uncomplicated; Z20.822 Contact with and (suspected) exposure to COVID-19; E78.5 Hyperlipidemia, unspecified; K21.9 Gastro-esophageal reflux disease without esophagitis; Z89.511 Acquired absence of right leg below knee; I25.10 Atherosclerotic heart disease of native coronary artery without angina pectoris; J45.909 Unspecified asthma, uncomplicated; T40.3X5A Adverse effect of methadone, initial encounter; R94.31 Abnormal electrocardiogram [ECG] [EKG]; Y92.9 Unspecified place or not applicable; I50.22 Chronic systolic (congestive) heart failure; R19.5 Other fecal abnormalities; I42.9 Cardiomyopathy, unspecified; Z91.14 Patient's other noncompliance with medication regimen; D63.8 Anemia in other chronic diseases classified elsewhere; Z88.2 Allergy status to sulfonamides; Z79.4 Long term (current) use of insulin; Z79.82 Long term (current) use of aspirin; Z79.52 Long term (current) use of systemic steroids; Z79.899 Other long term (current) drug therapy
CPT/HCPCS: 36415; 70450; 71045; 71250; 73701; 80048; 80076; 80307; 80320; 81001; 82140; 82272; 82550; 82803; 82947; 83605; 83690; 83735; 83880; 84100; 84443; 84484; 85014; 85018; 85025; 85060; 85610; 85730; 86850; 86900; 86923; 87040; 87635; 93005; 93308; 96361; 96365; 96375; 96376; 99285; J0692; J1650; J2060; J2405; J2543; J3475; P9016; Q9967

== ENCOUNTER 2021-02-08 15:29 | Emergency (ER) | payer MEDICAID, SELFPAY ==
--- NOTE | ~2021-02-08 | XR_ITS ---
EXAMINATION: XR FOOT, LEFT CLINICAL INFORMATION: Evaluate for osteomyelitis COMPARISON: CT 01/02/2021 radiographs 11/24/2020 TECHNIQUE: AP, lateral, and oblique views of the left foot. FINDINGS: Redemonstration of the soft tissue laceration posterior to the calcaneus. There is enthesopathy of the calcaneus and cortical irregularity appears similar to the CT presumably representing osteomyelitis. Does not appear to be significantly changed. Diffuse vascular calcifications. No suspicious bone findings elsewhere. XR/XR foot LT 2V IMPRESSION: No significant change in the appearance of the presumed osteomyelitis of the posterior calcaneus. No new findings.
[2021-02-08 16:21] VITALS: BP 86/51; PULSE 78; RESP 16; TEMP 36.4; O2SAT 98; BMI 23.4
--- NOTE | 2021-02-08 17:45 | PC.NURSE ---
this rn has tried several times for iv access and labs, asked andra rn and denise rn to try and they were unable to get into the room to attemp. have asked mindi the tech to at least try to get labs, pt with chronic ulcer to left heel, dark black with foul odor, and access to right knee appears to be healing. pluses in left foot strong with doppler.
[2021-02-08 18:00] VITALS: BP 117/58; PULSE 78; TEMP 37; O2SAT 98
--- NOTE | 2021-02-08 19:33 | PC.NURSE ---
Pt is a very difficult stick. Hx IV drug abuse. aware. Plan for EJ placement by provider. Pt requested and given chicken sandwich, okayed by .
--- NOTE | 2021-02-08 20:22 | PC.NURSE ---
Patient refusing labs. present when patient refused. offered to obtain EJ access & labs but patient refusing all care, states no I'm gonna go. I'm gonna call my ride . Leaving against medical advice.
--- NOTE | 2021-02-08 20:26 | ED.SKABFB ---
HPI - Skin/Abscess/Foreign Bdy General Chief complaint: Skin/Abscess/Foreign Body Stated complaint: Wound check Time Seen by Provider: 02/08/21 17:03 History of Present Illness HPI narrative: Patient is a 50-year-old male with a history of diabetes. Chronic ulcer of the left heel area. Complaining of worsening symptoms. Patient denies any fever or chills. Having worsening skin lesion over the left heel. Patient denies any recent recreational drug use. Has a long history of opiate use. History of coronary artery disease. Patient denies any chest pain. Denies any focal weakness. Related Data Home Medications Medication Instructions Recorded Confirmed FreeStyle Lite Strips 08/12/20 08/12/20 albuterol sulfate 2 puff INHALATION Q4H PRN 08/12/20 01/02/21 albuterol sulfate 2.5 mg INHALATION Q4H PRN 08/12/20 01/02/21 blood-glucose meter [FreeStyle 08/12/20 08/12/20 [place]ite] cane 08/12/20 08/12/20 lancets 08/12/20 08/12/20 magnesium oxide [MagOx] 400 mg PO DAILY 08/12/20 01/02/21 methadone 50 mg PO QAM 08/12/20 01/04/21 pen needle, diabetic 08/12/20 08/12/20 Eucerin 1 applic TOPICAL DAILY PRN 08/14/20 01/02/21 Lantus U-100 Insulin 12 unit SUBCUT QPM 08/14/20 01/02/21 aspirin 81 mg PO DAILY 08/14/20 01/02/21 atorvastatin 20 mg PO BEDTIME 08/14/20 01/02/21 carvedilol 6.25 mg PO BID 08/14/20 01/02/21 cetirizine 10 mg PO DAILY 08/14/20 01/02/21 clotrimazole 1 applic TOPICAL TID 08/14/20 01/02/21 ergocalciferol (vitamin D2) 1,250 mcg PO QWEEK 08/14/20 01/02/21 fluticasone propionate [Flonase 1 spray INTRANASAL DAILY 08/14/20 01/02/21 Allergy Relief] gabapentin 200 mg PO TID 08/14/20 01/02/21 montelukast 10 mg PO BEDTIME 08/14/20 01/02/21 polyethylene glycol 3350 [Miralax] 17 g PO DAILY 08/14/20 01/02/21 sennosides [senna] 8.6 mg PO BEDTIME PRN 08/14/20 01/02/21 spironolactone 12.5 mg PO DAILY 08/14/20 01/02/21 tamsulosin 0.4 mg PO DAILY 08/14/20 01/02/21 zinc sulfate 220 mg PO DAILY 08/14/20 01/02/21 Narcan 4 mg INTRANASAL Q3M PRN 11/24/20 01/02/21 Previous Rx's Medication Instructions Recorded furosemide 40 mg PO DAILY #30 tab 12/02/20 clindamycin HCl 300 mg PO Q6H 10 Days #40 cap 02/08/21 Allergies Allergy/AdvReac Type Severity Reaction Status Date / Time ertapenem Allergy Intermediate Hives Verified 01/02/21 20:04 vancomycin [VANCOMYCIN] Allergy Intermediate HIVES Verified 10/04/20 06:49 Chocolate Allergy Unknown Rash Verified 10/04/20 06:49 ciprofloxacin [From CIPRO] Allergy Unknown SWELLING Verified 10/04/20 06:49 hydrocortisone [Cipro HC] Allergy Unknown Unknown Verified 10/04/20 06:49 sulfamethoxazole Allergy Unknown rash Verified 10/04/20 06:49 [From BACTRIM] trimethoprim [From BACTRIM] Allergy Unknown rash Verified 10/04/20 06:49 turkey [TURKEY] Allergy Unknown RASH Verified 10/04/20 06:49 Review of Systems Review of Systems: Constitutional: No Weight loss, No Fever, No Chills, No Night Sweats, No Fatigue, No Malaise ENT/Mouth: No Hearing loss, No Ear Pain, No Nasal Congestion, No Sinus Pain, No Hoarseness, No sore throat, No Rhinorrhea, No Swallowing Difficulty Eyes: No Eye Pain, No Swelling, No Redness, No Foreign Body, No Discharge, No Vision Changes Cardiovascular: No Chest Pain, No SOB, No Dyspnea on Exertion, No Orthopnea, No Edema, No Palpitations Respiratory: No Cough, No Sputum, No Wheezing, No Smoke Exposure, No Dyspnea Gastrointestinal: No Nausea, No Vomiting, No Diarrhea, No Constipation, No abdominal Pain, No Hematochezia, No Melena Genitourinary: no irregular bleeding, No Dysuria, No Urinary Frequency, No Hematuria, No Urinary Incontinence, No Urgency, No Flank Pain, No Urinary Flow Changes, No Hesitancy Musculoskeletal: No joint pain, No Myalgias, No Joint Swelling Skin: Positive skin lesion to the left heel. 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 heart failure Asthma Bipolar 1 disorder BPH (benign prostatic hyperplasia) Cholelithiasis Closed wedge compression fracture of T9 vertebra COPD (chronic obstructive pulmonary disease) Diabetes mellitus, type 2 GERD (gastroesophageal reflux disease) Hyperlipidemia Peripheral arterial disease Peripheral neuropathy Substance abuse Surgical History History of amputation History of laminectomy History of transurethral resection of prostate Hx of BKA Family History Family History Father Chronic mental illness Hypertension Asthma Stroke Mother Asthma Diabetes Coronary artery disease Social History Social History Household Members: None Housing: Other Alcohol intake: current Alcohol intake frequency: does not drink Alcohol type: beer Smoking Status: Never smoker Second Hand Smoke Exposure: No Substance Use Type: Marijuana Advance Directives: Yes Advance Directives on File: Yes Advance Directives Date on File: 11/24/20 service: No Current occupational status: disabled Physical Exam Vital Signs: Vital Signs: Last Vital Signs Temp 98.6 F 02/08/21 18:00 Pulse 78 02/08/21 18:00 Resp 16 02/08/21 16:21 BP 117/58 L 02/08/21 18:00 Pulse Ox 98 02/08/21 18:00 Body Mass Index 23.4 Appearance: Alert. Oriented X3. No acute distress. Eyes: Pupils equal, round and reactive to light. ENT: Pharynx normal. Neck: Normal inspection. Neck supple. No lymph nodes noted. No crepitus CVS: Normal heart rate and rhythm. Pulses normal. Normal S1 and S2 Respiratory: No respiratory distress. Breath sounds normal. No Wheezing. No rales Abdomen: Soft and nontender. No rigidity. No distention. good BS x4 Skin: Positive skin ulcer at left heel approximately 6 cm x 5 cm in size. Down to bone. With a necrotic center. Extremities: Status post below-knee amputation on the right. Left lower extremity there is his skin ulcer down to the bone at the left heel. Foul odor. Erythematous. With purulent discharge noted. There is pulse that is dopplerable at dorsalis pedis and posterior tibialis. Neuro: Oriented X 3. No motor deficit. No sensory deficit. Moving all extermities. No slurred speech MDM - Skin/Abscess/Foreign Bdy MDM Narrative Medical decision making narrative: Patient offered labs antibiotic culture for treatment of his likely osteomyelitis infected diabetic ulcer. Patient refused. Understood the risk of . Understood the risk of loss of current lifestyle including loss of his remaining limb. Patient states understanding and that he must leave. Patient is leaving against medical advice. Told to closely follow up on an outpatient basis. Offered antibiotics the patient did not want to take. Will still write a script for antibiotics. Differential Diagnosis Differential diagnosis: Likely abscess of skin or subcutaneous tissue Medical Records Attestation: I reviewed the patient's medical records. Lab Data Attestation: I reviewed the patient's lab results. Discharge Plan Discharge Clinical Impression: Abscess of skin or subcutaneous tissue Patient Disposition: Left Against Medical Advice Instructions: Osteomyelitis (ED), Against Medical Advice (ED) Prescriptions: New clindamycin HCl 300 mg capsule 300 mg PO Q6H 10 Days Qty: 40 RF: 0 No Action albuterol sulfate 2.5 mg /3 mL (0.083 %) Solution For Nebulization 2.5 mg inhalation Q4H PRN (Reason: Shortness Of Breath Or Wheezing) RF: 0 (DME) lancets Misc MISCELLANEOUS RF: 0 (DME) blood-glucose meter [FreeStyle [place]ite] Kit MISCELLANEOUS RF: 0 (DME) cane Device MISCELLANEOUS RF: 0 (DME) FreeStyle Lite Strips RF: 0 magnesium oxide [MagOx] 400 mg (241.3 mg magnesium) Tablet 400 mg PO DAILY RF: 0 (DME) pen needle, diabetic Needle MISCELLANEOUS RF: 0 methadone 10 mg/mL Concentrate 50 mg PO QAM RF: 0 albuterol sulfate 90 mcg/actuation Hfa Aerosol Inhaler 2 puff INHALATION Q4H PRN (Reason: Shortness Of Breath) RF: 0 zinc sulfate 110 mg (25 mg zinc) Tablet 220 mg PO DAILY RF: 0 spironolactone 25 mg Tablet 12.5 mg PO DAILY RF: 0 sennosides [senna] 8.6 mg Tablet 8.6 mg PO BEDTIME PRN (Reason: Constipation) RF: 0 Lantus U-100 Insulin 100 unit/mL Solution 12 unit SUBCUT QPM RF: 0 cetirizine 10 mg Tablet 10 mg PO DAILY RF: 0 aspirin 81 mg Tablet,Delayed Release (Dr/Ec) 81 mg PO DAILY RF: 0 polyethylene glycol 3350 [Miralax] 17 gram/dose Powder 17 g PO DAILY RF: 0 carvedilol 6.25 mg Tablet 6.25 mg PO BID RF: 0 atorvastatin 20 mg Tablet 20 mg PO BEDTIME RF: 0 tamsulosin 0.4 mg Capsule 0.4 mg PO DAILY RF: 0 montelukast 10 mg Tablet 10 mg PO BEDTIME RF: 0 gabapentin 100 mg Capsule 200 mg PO TID RF: 0 ergocalciferol (vitamin D2) 1,250 mcg (50,000 unit) Capsule 1,250 mcg PO QWEEK RF: 0 fluticasone propionate [Flonase Allergy Relief] 50 mcg/actuation [place],Suspension 1 spray INTRANASAL DAILY RF: 0 clotrimazole 1 % Cream 1 applic TOPICAL TID RF: 0 Eucerin Cream 1 applic TOPICAL DAILY PRN (Reason: Dry Skin) RF: 0 Narcan 4 mg/actuation [place],Non-Aerosol 4 mg INTRANASAL Q3M PRN (Reason: OVER DOSE) RF: 0 furosemide 40 mg Tablet 40 mg PO DAILY Qty: 30 RF: 0 Referrals: Ashley Pendleton MD [Primary Care Provider] - 2 days
== END 2021-02-08 20:54 | disposition left against medical advice (07) ==
PROVIDERS: Emergency Provider Emergency Medicine Emergency Medical Services; PCP Family Medicine
DX: L02.612 Cutaneous abscess of left foot (principal); E11.621 Type 2 diabetes mellitus with foot ulcer; L97.424 Non-pressure chronic ulcer of left heel and midfoot with necrosis of bone; F11.20 Opioid dependence, uncomplicated; Z79.4 Long term (current) use of insulin; F12.90 Cannabis use, unspecified, uncomplicated; Z89.511 Acquired absence of right leg below knee
CPT/HCPCS: 73620; 96365; 99284

== ENCOUNTER 2021-02-12 16:17 | Inpatient (IN) | payer MEDICAID, SELFPAY ==
--- NOTE | ~2021-02-12 | XR_ITS ---
EXAMINATIONS: CHEST 1 VIEW AND RIGHT RIBS CLINICAL INFORMATION: Pain after fall. COMPARISON: January 02, 2021. TECHNIQUE: A PA radiograph of the chest was obtained in addition to several views of the right ribs. FINDINGS: The cardiac silhouette is not enlarged. The mediastinal and hilar contours are unremarkable. There are neither pleural effusions nor pneumothoraces. There are no consolidations. The osseous structures are unremarkable. Specifically, no rib fractures are identified. XR/XR ribs RT min 3V w CXR1V IMPRESSION: No evidence for acute disease. Specifically, no rib fractures identified.
--- NOTE | ~2021-02-12 | XR_ITS ---
EXAMINATION: XR CHEST CLINICAL INFORMATION: Central line placement COMPARISON: Chest radiograph and rib radiographs earlier this evening TECHNIQUE: Frontal view of the chest was obtained. FINDINGS: A left-sided IJ catheter is present which passes through the left innominate vein and out into the right subclavian vein and not downwards in into the SVC. No pneumothorax is seen. The exam is otherwise unchanged. XR/XR chest 1V IMPRESSION: The left-sided IJ catheter extends into the right subclavian vein rather than down into the SVC. This result was discussed with Dr. Mcmahan at 4:30 AM on 02/13/2021 and it was ascertained that the content of the report was understood at the time of direct communication.
--- NOTE | ~2021-02-12 | CT_ITS ---
EXAMINATION: CT HEAD WITHOUT CONTRAST CLINICAL INFORMATION: Fall. COMPARISON: 01/02/2021. TECHNIQUE: Contiguous helical images of the brain were obtained without IV contrast. Multiplanar reconstructions were performed. DLP: 714 mGy-cm. FINDINGS: There are no pathologic extra-axial fluid collections. The lateral, third, fourth ventricles are nondilated and concordant with the appearance of the sulci. There is no evidence for acute intraparenchymal hemorrhage or infarct. There is neither mass nor mass effect. There is no shift of midline structures. The paranasal sinuses and mastoid air cells are clear. There are no osseous lesions. CT/CT head/brain wo con IMPRESSION: No evidence for acute intracranial injury. Automated exposure control (Care Dose) Adjustment of the mA and/or kv according to patient size (this includes techniques or standardized protocols for targeted exams where dose is matched to indication / reason for exam; i.e. extremities or head).
--- NOTE | ~2021-02-12 | XR_ITS ---
EXAMINATION: XR FOOT, LEFT CLINICAL INFORMATION: Evaluate calcaneus heel osteomyelitis COMPARISON: 02/08/2021 TECHNIQUE: AP, lateral, and oblique views of the left foot. FINDINGS: Soft tissue defect along the posterior aspect of the calcaneus with similar appearance to the cortical irregularity, bony fragments. Overall no significant change. Small plantar calcaneal spur. Extensive vascular calcifications. XR/XR foot LT min 3V IMPRESSION: No change in the appearance of the presumed osteomyelitis of the posterior calcaneus.
[2021-02-12 16:34] VITALS: BP 116/57; PULSE 68; RESP 14; TEMP 37.1; O2SAT 98; BMI 25.0
--- NOTE | 2021-02-12 17:10 | PC.NURSE ---
Late entry: pt requested voucher examiner at triage and facilitated.
--- NOTE | 2021-02-12 18:33 | ED_ITS ---
HPI - Extremity Injury (Lower) General Chief Complaint: Extremity Injury, Lower <YAKOV Gaines - Last Filed: 02/12/21 23:15> Stated Complaint: Wound Check <YAKOV Gaines - Last Filed: 02/12/21 23:15> Time Seen by Provider: 02/12/21 18:03 <YAKOV Gaines - Last Filed: 02/12/21 23:15> Source: patient <YAKOV Gaines - Last Filed: 02/12/21 23:15> Mode of arrival: ambulatory <YAKOV Gaines - Last Filed: 02/12/21 23:15> History of Present Illness HPI Narrative: 50-year-old male with a past medical history of diabetes, opiate abuse, CAD, asthma, COPD, GERD, hyperlipidemia, PAD, chronic ulcer to left heel, presented to ED complaining of worsening left heel ulcer with notable malodorous drainage x3-4 days. Of note patient was recently seen in our ED on 02/08 for similar symptoms however refused care and signed out AMA. Reports has been taking p.o. antibiotics from prior ED visit. Denies fever, chills. Also r eports mechanical fall/rule out of bed onto right side complaining of right sided rib pain and abrasion to nose. Denies LOC, SOB, CP, abdominal pain. Foot x-rays on 02/08/2021 without change from presumed osteomyelitis. Previous CT on 01/02/2021 with ulcer with soft tissue gas overlying the left calcaneus which is the site of known osteomyelitis seen on previous MRI. <YAKOV Gaines - Last Filed: 02/12/21 23:15> MD complaint: foot injury <YAKOV Gaines - Last Filed: 02/12/21 23:15> Related Data Home Medications: Home Medications Medication Instructions Recorded Confirmed FreeStyle Lite Strips 08/12/20 02/13/21 albuterol sulfate 2 puff INHALATION Q4H PRN 08/12/20 02/13/21 albuterol sulfate 2.5 mg INHALATION Q4H PRN 08/12/20 02/13/21 blood-glucose meter [FreeStyle 08/12/20 02/13/21 [place] Lite] cane 08/12/20 02/13/21 lancets 08/12/20 02/13/21 magnesium oxide [MagOx] 400 mg PO DAILY 08/12/20 02/13/21 methadone 50 mg PO QAM 08/12/20 02/13/21 pen needle, diabetic 08/12/20 02/13/21 Eucerin 1 applic TOPICAL DAILY PRN 08/14/20 02/13/21 Lantus U-100 Insulin 12 unit SUBCUT QPM 08/14/20 02/13/21 aspirin 81 mg PO DAILY 08/14/20 02/13/21 atorvastatin 20 mg PO BEDTIME 08/14/20 02/13/21 carvedilol 6.25 mg PO BID 08/14/20 02/13/21 cetirizine 10 mg PO DAILY 08/14/20 02/13/21 clotrimazole 1 applic TOPICAL TID 08/14/20 02/13/21 ergocalciferol (vitamin D2) 1,250 mcg PO QWEEK 08/14/20 02/13/21 fluticasone propionate [Flonase 1 spray INTRANASAL DAILY 08/14/20 02/13/21 Allergy Relief] gabapentin 200 mg PO TID 08/14/20 02/13/21 montelukast 10 mg PO BEDTIME 08/14/20 02/13/21 polyethylene glycol 3350 [Miralax] 17 g PO DAILY 08/14/20 02/13/21 sennosides [senna] 8.6 mg PO BEDTIME PRN 08/14/20 02/13/21 spironolactone 12.5 mg PO DAILY 08/14/20 02/13/21 tamsulosin 0.4 mg PO DAILY 08/14/20 02/13/21 zinc sulfate 220 mg PO DAILY 08/14/20 02/13/21 Narcan 4 mg INTRANASAL Q3M PRN 11/24/20 02/13/21 Previous Rx's Medication Instructions Recorded furosemide 40 mg PO DAILY #30 tab 12/02/20 <YAKOV Gaines - Last Filed: 02/12/21 23:15> Allergies/Adverse Reactions: Allergies Allergy/AdvReac Type Severity Reaction Status Date / Time ertapenem Allergy Intermediate Hives Verified 02/13/21 00:20 vancomycin [VANCOMYCIN] Allergy Intermediate HIVES Verified 02/13/21 00:20 Chocolate Allergy Unknown Rash Verified 02/13/21 00:20 ciprofloxacin [From CIPRO] Allergy Unknown SWELLING Verified 02/13/21 00:20 hydrocortisone [Cipro HC] Allergy Unknown Unknown Verified 02/13/21 00:20 sulfamethoxazole Allergy Unknown rash Verified 02/13/21 00:20 [From BACTRIM] trimethoprim [From BACTRIM] Allergy Unknown rash Verified 02/13/21 00:20 turkey [TURKEY] Allergy Unknown RASH Verified 02/13/21 00:20 <YAKOV Gaines - Last Filed: 02/12/21 23:15> Review of Systems Review of Systems: Constitutional: No Fever, No Chills, No Fatigue, No Malaise Cardiovascular: No Chest Pain, No SOB, +rib pain Gastrointestinal: No Nausea, No Vomiting, No Diarrhea, No Constipation, No Abdo [place] pain Musculoskeletal: +L heel pain, No Myalgias, No Joint Swelling Skin: + chronic ulcer to left heel with malodorous discharge, + abrasion to nose Neuro: No Weakness, No Headache <YAKOV Gaines - Last Filed: 02/12/21 23:15> Yes all other systems are reviewed and are negative <YAKOV Gaines - Last Filed: 02/12/21 23:15> [facility] Past Medical History Attestation statement: The following information was validated with the patient. <YAKOV Gaines - Last Filed: 02/12/21 23:15> Medical History: Medical History Acute on chronic anemia Acute on chronic combined systolic and diastolic congestive heart failure Asthma Bipolar 1 disorder BPH (benign prostatic hyperplasia) Cholelithiasis Closed wedge compression fracture of T9 vertebra COPD (chronic obstructive pulmonary disease) Diabetes mellitus, type 2 GERD (gastroesophageal reflux disease) Hyperlipidemia Peripheral arterial disease Peripheral neuropathy Substance abuse <YAKOV Gaines - Last Filed: 02/12/21 23:15> Surgical History: Surgical History History of amputation History of laminectomy History of transurethral resection of prostate Hx of BKA <YAKOV Gaines - Last Filed: 02/12/21 23:15> Family History Family History: Family History Father Chronic mental illness Hypertension Asthma Stroke Mother Asthma Diabetes Coronary artery disease <YAKOV Gaines - Last Filed: 02/12/21 23:15> Social History Social History: Social History Household Members: None Housing: Other Alcohol intake: current Alcohol intake frequency: does not drink Alcohol type: beer Smoking Status: Never smoker Second Hand Smoke Exposure: No Substance Use Type: Marijuana Advance Directives: Yes Advance Directives on File: Yes Advance Directives Date on File: 11/24/20 service: No Current occupational status: disabled <YAKOV Gaines - Last Filed: 02/12/21 23:15> Physical Exam Vital Signs: Vital Signs: Last Vital Signs Temp 98.7 F 02/12/21 16:34 Pulse 68 02/12/21 16:34 Resp 14 02/12/21 16:34 BP 116/57 L 02/12/21 16:34 Pulse Ox 98 02/12/21 16:34 Body Mass Index 25.0 <YAKOV Gaines - Last Filed: 02/12/21 23:15> Vital Signs: Last Vital Signs Temp 98.7 F 02/12/21 16:34 Pulse 68 02/12/21 16:34 Resp 14 02/12/21 16:34 BP 116/57 L 02/12/21 16:34 Pulse Ox 98 02/12/21 16:34 Body Mass Index 25.0 <Nikkie Mcmahan MD - Last Filed: 02/13/21 00:53> Const: General: cooperative, healthy appearing, comfortable and no acute distress <YAKOV Gaines - Last Filed: 02/12/21 23:15> Orientation/consciousness: patient oriented x3 <YAKOV Gaines - Last Filed: 02/12/21 23:15> Limitations: no limitations <YAKOV Gaines - Last Filed: 02/12/21 23:15> HENMT: Other: Superficial abrasion noted to nasal bridge <YAKOV Gaines - Last Filed: 02/12/21 23:15> Head: Yes normal to inspection <YAKOV Gaines - Last Filed: 02/12/21 23:15> Ears: hearing grossly normal bilaterally <Yumi Luu PA - Last Filed: 02/12/21 23:15> General nose exam: Normal external nose present <Yumi Luu PA - Last Filed: 02/12/21 23:15> Face and sinus: Yes normal facial exam <Yumi Luu PA - Last Filed: 02/12/21 23:15> Eyes: General: appearance normal, both eyes and all related structures <Yumi Luu PA - Last Filed: 02/12/21 23:15> EOM: EOMs intact bilaterally <Yumi Luu PA - Last Filed: 02/12/21 23:15> Neck: Neck: Yes normal visual inspection and Yes no meningeal signs <Yumi Luu PA - Last Filed: 02/12/21 23:15> Chest: Other: Right anterior ribs with mild tenderness to palpation. No v isible deformity/crepitus, or ecchymosis <Yumi Luu PA - Last Filed: 02/12/21 23:15> Chest palpation & inspection: normal inspection of the chest, no crepitus and tenderness <Yumi Luu PA - Last Filed: 02/12/21 23:15> Resp: Effort & Inspection: normal respiratory effort, no audible wheezes and no stridor <Yumi Luu PA - Last Filed: 02/12/21 23:15> Cardio: Rate: regular rate <Yumi Luu PA - Last Filed: 02/12/21 23:15> GI: Inspection: Yes normal to inspection <Yumi Luu PA - Last Filed: 02/12/21 23:15> Palpation (GI): Soft to palpation, nontender, no guarding and not rigid <Crispin Luu PA - Last Filed: 02/12/21 23:15> Skin: Other: + chronic necrotic left heel ulcer with malodorous drainage. No surrounding cellulitis/erythema or streaking. No fluctuance/induration <Yumi Luu PA - Last Filed: 02/12/21 23:15> Neuro: General: patient oriented x3 and no meningeal signs <Yumi Luu PA - Last Filed: 02/12/21 23:15> Gait exam (Neuro): Normal gait present <YAKOV Gaines - Last Filed: 02/12/21 23:15> Extrem: Other: s/p below-knee amputation on right. <YAKOV Gaines - Last Filed: 02/12/21 23:15> General: Yes normal to inspection <YAKOV Gaines - Last Filed: 02/12/21 23:15> Course Course Course Narrative: -no leukocytosis. H&H at patients baseline, BUN elevated to 29, lactic acid negative -CRP elevated 9.7, ESR elevated 112 XR foot LT min 3V IMPRESSION: No change in the appearance of the presumed osteomyelitis of the posterior calcaneus. >> empiric IV Zosyn ordered XR ribs RT min 3V w CXR1V IMPRESSION: No evidence for acute disease. Specifically, no rib fractures identified. -case discussed with hospitalist. IV Clindamycin added. Difficulty obtaining IV access on patient, does have currently working peripheral line. Patient Refused central line. -2314--patient's peripheral access blew, is now agreeable to central line, consent obtained, signed & in patient's chart <YAKOV Gaines - Last Filed: 02/12/21 23:15> Although the tip of the central line is in the right subclavian vein, it can still be used for fluid in antibiotics. This was communicated to Dr. Mccullough and to the patient's nurse <Nikkie Mcmahan MD - Last Filed: 02/13/21 00:53> Procedures Central Line Placement Left IJ: Time Out Performed: Yes <Nikkie Mcmahan MD - Last Filed: 02/13/21 00:53> Patient Placed on Monitor/Pulse Ox: Yes <Nikkie Mcmahan MD - Last Filed: 02/13/21 00:53> MD Prep: mask, gown, gloves and other <Nikkie Mcmahan MD - Last Filed: 02/13/21 00:53> Central Line Prep: Chlorhexidine scrub <Nikkie Mcmahan MD - Last Filed: 02/13/21 00:53> Local Anesthetic: lidocaine 1% <Nikkie Mcmahan MD - Last Filed: 02/13/21 00:53> Amount of anesthesia used (mL): 5 <Nikkie Mcmahan MD - Last Filed: 02/13/21 00:53> Ultrasound Used for Placement: Yes <Nikkie Mcmahan MD - Last Filed: 02/13/21 00:53> Central Line Lumen Inserted: triple <Nikkie Mcmahan MD - Last Filed: 02/13/21 00:53> Post Procedure: sutured in place, good blood return (In 2 of the 3 ports), all ports aspirated, flushed, capped and sterile dressing applied <Nikkie Mcmahan MD - Last Filed: 02/13/21 00:53> Post Procedure X-Ray: other (Tip of the catheter is in the right subclavian vein) <Nikkie Mcmahan MD - Last Filed: 02/13/21 00:53> Patient Tolerated Procedure: well <Nikkie Mcmahan MD - Last Filed: 02/13/21 00:53> Complications: catheter malposition <Nikkie Mcmahan MD - Last Filed: 02/13/21 00:53> Additional Comments: There is good blood return into catheters except the brown one. The 3 catheters to flush easily. <Nikkie Mcmahan MD - Last Filed: 02/13/21 00:53> MDM - Extremity Injury (Lower) MDM Narrative Medical decision making narrative: 50-year-old male with a past medical history of diabetes, opiate abuse, CAD, asthma, COPD, GERD, hyperlipidemia, PAD, chronic ulcer to left heel, presented to ED complaining of worsening left heel ulcer with notable malodorous drainage x3-4 days. On exam VSS, NAD, physical exam as above. Concern for acute on chronic osteomyelitis with superimposed infection/necrosis. Low concern for severe sepsis at this time Plan: Labs, blood cultures, lactic, IV antibiotics, anticipated admission, surgical consult <YAKOV Gaines - Last Filed: 02/12/21 23:15> Medical Records Attestation: I reviewed the patient's medical records. <YAKOV Gaines - Last Filed: 02/12/21 23:15> Lab Data Attestation: I reviewed the patient's lab results. <YAKOV Gaines - Last Filed: 02/12/21 23:15> Result diagrams: : 02/12/21 20:01 02/12/21 20:01 <YAKOV Gaines - Last Filed: 02/12/21 23:15> Labs: Lab Results 02/12/21 02/12/21 02/12/21 Range/Units 19:39 19:39 20:01 WBC 10.6 (4.8-10.8) X10*3/uL RBC 3.21 L (4.60-5.80) X10*6/uL Hgb 8.9 L (14.0-18.0) g/dl Hct 28.2 L (42-52) % MCV 87.9 (80-98) fL MCH 27.7 (27.0-33.0) pg MCHC 31.6 (31.0-36.0) g/dl RDW 13.4 (11.0-16.0) % Plt Count 310 (160-400) X10*3/uL MPV 8.3 L (9.4-12.4) fL Immature Gran % (Auto) 0.4 (0.0-0.4) % Neut % (Auto) 78.6 H (45-73) % Lymph % (Auto) 9.6 L (20-40) % [place] % (Auto) 8.5 (2-11) % Eos % (Auto) 2.7 (0-4) % Baso % (Auto) 0.2 (0-2) % Lymph # (Auto) 1.0 L (1.2-4.9) X10*3/uL [place] # (Auto) 0.9 (0.1-1.2) X10*3/uL Eos # (Auto) 0.3 (0.0-0.4) X10*3/uL Baso # (Auto) 0.0 (0.0-0.2) X10*3/uL Abs Immat Gran (auto) 0.04 H (0.00-0.03) X10*3/uL Absolute Neuts (auto) 8.4 H (2.0-8.3) X10*3/uL Absolute Nucleated RBC 0.000 (0.0-0.012) X10*3/uL Nucleated RBC % (auto) 0.0 (0.0-0.2) /100WBC Hold Blue Top SEE NOTE Sodium (135-145) mmol/L Potassium (3.3-5.1) mmol/L Chloride (96-108) mmol/L Carbon Dioxide (22-29) mmol/L Anion Gap (12-20) BUN (9-16) mg/dL Creatinine (0.5-1.4) mg/dL Estim Creat Clear Calc Estimated GFR Random Glucose (60-115) mg/dL Lactic Acid (0.5-2.0) mmol/L Calcium (8.4-10.2) mg/dL C-Reactive Protein (< or = 0.50) mg/dL COVID-19 (JAMILA) Negative (Negative) COVID-19 Clin Com See Note 02/12/21 02/12/21 02/12/21 Range/Units 20:01 20:01 21:09 WBC (4.8-10.8) X10*3/uL RBC (4.60-5.80) X10*6/uL Hgb (14.0-18.0) g/dl Hct (42-52) % MCV (80-98) fL MCH (27.0-33.0) pg MCHC (31.0-36.0) g/dl RDW (11.0-16.0) % Plt Count (160-400) X10*3/uL MPV (9.4-12.4) fL Immature Gran % (Auto) (0.0-0.4) % Neut % (Auto) (45-73) % Lymph % (Auto) (20-40) % [place] % (Auto) (2-11) % Eos % (Auto) (0-4) % Baso % (Auto) (0-2) % Lymph # (Auto) (1.2-4.9) X10*3/uL [place] # (Auto) (0.1-1.2) X10*3/uL Eos # (Auto) (0.0-0.4) X10*3/uL Baso # (Auto) (0.0-0.2) X10*3/uL Abs Immat Gran (auto) (0.00-0.03) X10*3/uL Absolute Neuts (auto) (2.0-8.3) X10*3/uL Absolute Nucleated RBC (0.0-0.012) X10*3/uL Nucleated RBC % (auto) (0.0-0.2) /100WBC Hold Blue Top SEE NOTE Sodium 134 L (135-145) mmol/L Potassium 5.0 D (3.3-5.1) mmol/L Chloride 98 (96-108) mmol/L Carbon Dioxide 27 (22-29) mmol/L Anion Gap 14 (12-20) BUN 29 H D (9-16) mg/dL Creatinine 1.07 (0.5-1.4) mg/dL Estim Creat Clear Calc 72.8 Estimated GFR > 60 Random Glucose 69 D (60-115) mg/dL Lactic Acid 1.3 (0.5-2.0) mmol/L Calcium 9.0 (8.4-10.2) mg/dL C-Reactive Protein 9.75 H (< or = 0.50) mg/dL COVID-19 (JAMILA) (Negative) COVID-19 Clin Com <YAKOV Gaines - Last Filed: 02/12/21 23:15> Lab Results 02/12/21 02/12/21 02/12/21 Range/Units 19:39 19:39 20:01 WBC 10.6 (4.8-10.8) X10*3/uL RBC 3.21 L (4.60-5.80) X10*6/uL Hgb 8.9 L (14.0-18.0) g/dl Hct 28.2 L (42-52) % MCV 87.9 (80-98) fL MCH 27.7 (27.0-33.0) pg MCHC 31.6 (31.0-36.0) g/dl RDW 13.4 (11.0-16.0) % Plt Count 310 (160-400) X10*3/uL MPV 8.3 L (9.4-12.4) fL Immature Gran % (Auto) 0.4 (0.0-0.4) % Neut % (Auto) 78.6 H (45-73) % Lymph % (Auto) 9.6 L (20-40) % [place] % (Auto) 8.5 (2-11) % Eos % (Auto) 2.7 (0-4) % Baso % (Auto) 0.2 (0-2) % Lymph # (Auto) 1.0 L (1.2-4.9) X10*3/uL [place] # (Auto) 0.9 (0.1-1.2) X10*3/uL Eos # (Auto) 0.3 (0.0-0.4) X10*3/uL Baso # (Auto) 0.0 (0.0-0.2) X10*3/uL Abs Immat Gran (auto) 0.04 H (0.00-0.03) X10*3/uL Absolute Neuts (auto) 8.4 H (2.0-8.3) X10*3/uL Absolute Nucleated RBC 0.000 (0.0-0.012) X10*3/uL Nucleated RBC % (auto) 0.0 (0.0-0.2) /100WBC Hold Blue Top SEE NOTE Sodium (135-145) mmol/L Potassium (3.3-5.1) mmol/L Chloride (96-108) mmol/L Carbon Dioxide (22-29) mmol/L Anion Gap (12-20) BUN (9-16) mg/dL Creatinine (0.5-1.4) mg/dL Estim Creat Clear Calc Estimated GFR Random Glucose (60-115) mg/dL Lactic Acid (0.5-2.0) mmol/L Calcium (8.4-10.2) mg/dL C-Reactive Protein (< or = 0.50) mg/dL COVID-19 (JAMILA) Negative (Negative) COVID-19 Clin Com See Note 02/12/21 02/12/21 02/12/21 Range/Units 20:01 20:01 21:09 WBC (4.8-10.8) X10*3/uL RBC (4.60-5.80) X10*6/uL Hgb (14.0-18.0) g/dl Hct (42-52) % MCV (80-98) fL MCH (27.0-33.0) pg MCHC (31.0-36.0) g/dl RDW (11.0-16.0) % Plt Count (160-400) X10*3/uL MPV (9.4-12.4) fL Immature Gran % (Auto) (0.0-0.4) % Neut % (Auto) (45-73) % Lymph % (Auto) (20-40) % [place] % (Auto) (2-11) % Eos % (Auto) (0-4) % Baso % (Auto) (0-2) % Lymph # (Auto) (1.2-4.9) X10*3/uL [place] # (Auto) (0.1-1.2) X10*3/uL Eos # (Auto) (0.0-0.4) X10*3/uL Baso # (Auto) (0.0-0.2) X10*3/uL Abs Immat Gran (auto) (0.00-0.03) X10*3/uL Absolute Neuts (auto) (2.0-8.3) X10*3/uL Absolute Nucleated RBC (0.0-0.012) X10*3/uL Nucleated RBC % (auto) (0.0-0.2) /100WBC Hold Blue Top SEE NOTE Sodium 134 L (135-145) mmol/L Potassium 5.0 D (3.3-5.1) mmol/L Chloride 98 (96-108) mmol/L Carbon Dioxide 27 (22-29) mmol/L Anion Gap 14 (12-20) BUN 29 H D (9-16) mg/dL Creatinine 1.07 (0.5-1.4) mg/dL Estim Creat Clear Calc 72.8 Estimated GFR > 60 Random Glucose 69 D (60-115) mg/dL Lactic Acid 1.3 (0.5-2.0) mmol/L Calcium 9.0 (8.4-10.2) mg/dL C-Reactive Protein 9.75 H (< or = 0.50) mg/dL COVID-19 (JAMILA) (Negative) COVID-19 Clin Com <Nikkie Mcmahan MD - Last Filed: 02/13/21 00:53> Discharge Plan Discharge Clinical Impression: Osteomyelitis Qualifiers: Osteomyelitis type: unspecified type Osteomyelitis location: foot Laterality: left Qualified Code(s): M86.9 - Osteomyelitis, unspecified <YAKOV Gaines - Last Filed: 02/12/21 23:15> Patient Disposition: Admitted As Inpatient <YAKOV Gaines - Last Filed: 02/12/21 23:15>
--- NOTE | 2021-02-12 18:35 | PC.NURSE ---
patient to x ray at this time
--- NOTE | 2021-02-12 19:45 | PC.NURSE ---
Patient is a difficult stick. Able to obtain only some labs at this time. Positional 20g IV access established in right AC. Pt has hx of IVDA, scarring noted. ED PCT at bedside attempting to obtain the rest of patient's labs. Provider (Yumi Luu) aware.
--- NOTE | 2021-02-12 19:52 | PC.NURSE ---
Blue top lab hemolyzed, per lab. Karson (ED PCT) attempting to obtain labs at this time, Hold Light Blue top order added. Provider (Yumi Luu) aware.
[2021-02-12 20:03] LABS: COVID-19 Test Negative (Negative)
[2021-02-12 20:09] LABS: MANUAL DIFF FLAG NO
[2021-02-12 20:10] LABS: Basophils Percent Auto 0.2 % (0-2); Eosinophils Absolute Auto 0.3 X10*3/uL (0.0-0.4); Eosinophils Percent Auto 2.7 % (0-4); Hematocrit 28.2 % (42-52); Hemoglobin 8.9 g/dl (14.0-18.0); Imm Gran Abs Auto 0.04 X10*3/uL (0.00-0.03); Imm Gran Pct Auto 0.4 % (0.0-0.4); Lymphocytes Percent Auto 9.6 % (20-40); Mean Corpuscular HGB Conc 31.6 g/dl (31.0-36.0); Mean Corpuscular Hemoglobin 27.7 pg (27.0-33.0); Mean Corpuscular Volume 87.9 fL (80-98); Mean Platelet Volume 8.3 fL (9.4-12.4); Monocytes Absolute Auto 0.9 X10*3/uL (0.1-1.2); Monocytes Percent Auto 8.5 % (2-11); Neutrophils Absolute Auto 8.4 X10*3/uL (2.0-8.3); Neutrophils Percent Auto 78.6 % (45-73); Platelet Count 310 X10*3/uL (160-400); Red Blood Count 3.21 X10*6/uL (4.60-5.80); Red Cell Distribution Width 13.4 % (11.0-16.0); White Blood Count 10.6 X10*3/uL (4.8-10.8)
[2021-02-12 20:26] LABS: Lactic Acid 1.3 mmol/L (0.5-2.0)
[2021-02-12 20:29] LABS: Anion Gap 14 (12-20); Blood Urea Nitrogen 29 mg/dL (9-16); C Reactive Protein 9.75 mg/dL (< or = 0.50); Carbon Dioxide 27 mmol/L (22-29); Chloride 98 mmol/L (96-108); Creatinine Clr Calc Pharmacy 72.8; Estimated Glomerular Filt Rate > 60; Glucose Random 69 mg/dL (60-115); Sodium 134 mmol/L (135-145)
[2021-02-12] MEDS: Lidocaine HCl 1 % MPF 5 ML VIAL SUBCUT (21:32)
[2021-02-12] MEDS: Piperacillin Sodium/Tazobactam 3.375 GM in 0.9 % Sodium Chloride 50 ML IV (21:32)
[2021-02-12 21:34] LABS: Erythrocyte Sedimentation Rate 112 MM/HR (0-15)
--- NOTE | 2021-02-12 22:41 | PC.NURSE ---
Patient complaining of IV infiltration. 20g IV in right AC appears infiltrated. Zosyn infusion stopped. Pt previously refused central line insertion, plan to re-offer central line insertion once patient returns from CT scan. Provider ( & YAKOV Luu) aware.
--- NOTE | 2021-02-12 23:54 | PC.NURSE ---
Pt consented to central line insertion with staff health care / medical job titles present. to perform central line insertion. Will resume medications once access is obtained.
--- NOTE | 2021-02-13 01:09 | PM.IMHP ---
History of Present Illness Date of Service: 02/12/21 Chief Complaint: DM foot ulcer 50-year-old male with a past history hypertension hyperlipidemia, peripheral vascular disease asthma/COPD CAD opiate abuse, history right BKA; recent admission to the hospital for NSTEMI/GI bleed/ DM foot ulcer/osteomyelitis presented to the hospital today with a chief complaint orders discharge the left ulcer. Reports he has a visiting nurses today will noticed increased discharge subsequently sent him for further evaluation. Denies any fever chills cough. Denies any recent travel sick contacts. Denies any GI or symptoms. Review of all other systems is negative except mentioned above ER course: ER team patient presented about 3 days ago with similar complaints and left against medical advice. Patient MRI of the foot the last admission which showed osteomyelitis-was seen by General surgery the time and deemed pt did not require any debridement. Today and noted to ulcer necrotic patch on top-reportedly been chronic noted on prior admission as well. Patient was given IV antibiotics. Note patient has difficult peripheral access. ER team consented patient for central line and has left TLC placed ER but the TLC and in the right subclavian but functional. Unable to draw brown port. [facility] Medical History Acute on chronic anemia Acute on chronic combined systolic and diastolic congestive heart failure Asthma Bipolar 1 disorder BPH (benign prostatic hyperplasia) Cholelithiasis Closed wedge compression fracture of T9 vertebra COPD (chronic obstructive pulmonary disease) Diabetes mellitus, type 2 GERD (gastroesophageal reflux disease) Hyperlipidemia Peripheral arterial disease Peripheral neuropathy Substance abuse Family History Father Chronic mental illness Hypertension Asthma Stroke Mother Asthma Diabetes Coronary artery disease Surgical History History of amputation History of laminectomy History of transurethral resection of prostate Hx of BKA Social History Household Members: None Housing: Apartment Alcohol intake: current Alcohol intake frequency: does not drink Alcohol type: beer Smoking Status: Never smoker Second Hand Smoke Exposure: No Substance Use Type: Marijuana Advance Directives Date on File: 11/24/20 service: No Current occupational status: disabled Meds Allergies Allergy/AdvReac Type Severity Reaction Status Date / Time ertapenem Allergy Intermediate Hives Verified 02/13/21 00:20 vancomycin [VANCOMYCIN] Allergy Intermediate HIVES Verified 02/13/21 00:20 Chocolate Allergy Unknown Rash Verified 02/13/21 00:20 ciprofloxacin [From CIPRO] Allergy Unknown SWELLING Verified 02/13/21 00:20 hydrocortisone [Cipro HC] Allergy Unknown Unknown Verified 02/13/21 00:20 sulfamethoxazole Allergy Unknown rash Verified 02/13/21 00:20 [From BACTRIM] trimethoprim [From BACTRIM] Allergy Unknown rash Verified 02/13/21 00:20 turkey [TURKEY] Allergy Unknown RASH Verified 02/13/21 00:20 Active Medications: Current Medications Generic Name Dose Route Start Last Admin Trade Name Freq PRN Reason Stop Dose Admin Acetaminophen 650 mg 02/12/21 23:53 Acetaminophen 325 Mg Tablet PO Q6H PRN Pain, Mild (Pain Scale 1-3) Albuterol Sulfate 2.5 mg 02/12/21 23:56 Albuterol Sulfate (0.083%) 2.5 Mg/3 Ml Vial.Neb INHALE Q4H PRN Shortness Of Breath Or Wheezing Albuterol Sulfate 2 puff 02/12/21 23:56 Albuterol Sulfate 90 Mcg 8 Gm Inhaler INHALE Q4H PRN Shortness Of Breath Aspirin 81 mg 02/13/21 09:00 Aspirin Enteric Coated 81 Mg Tablet.Dr PO DAILY [facility] Atorvastatin Calcium 20 mg 02/13/21 21:00 Atorvastatin Calcium 20 Mg Tablet PO BEDTIME [facility] Carvedilol 6.25 mg 02/13/21 09:00 Carvedilol 6.25 Mg Tablet PO BID [facility] Protocol Ergocalciferol 1,250 mcg 02/15/21 09:00 Ergocalciferol (Vitamin D2) 1,250 Mcg Capsule PO Q7D [facility] Fluticasone Propionate 1 spray 02/13/21 09:00 Fluticasone Propionate Nasal 16 Gm [place] NOSTRIL-B DAILY [facility] Furosemide 40 mg 02/13/21 09:00 Furosemide 40 Mg Tablet PO DAILY [facility] Protocol Gabapentin 200 mg 02/13/21 09:00 Gabapentin 100 Mg Capsule PO TID [facility] Heparin Sodium (Porcine) 5,000 unit 02/12/21 00:00 Heparin Sodium,Porcine 5,000 Unit/Ml Vial SUBCUT Q8H [facility] Clindamycin Phosphate 600 mg in 50 mls @ 100 mls/hr 02/13/21 06:00 Cleocin IV Q8H [facility] Piperacillin Sod/Tazobactam 50 mls @ 100 mls/hr 02/13/21 04:00 Sod 3.375 gm/ Sodium Chloride IV Q6H [facility] Insulin Glargine 12 unit 02/12/21 23:45 Insulin Glargine,Hum.Rec.Anlog 100 Unit/Ml 10 Ml Vial SUBCUT BEDTIME [facility] Insulin Human Lispro 0 unit 02/13/21 07:30 Insulin Lispro 100 Unit/Ml 3 Ml Vial SUBCUT QIDACHS [facility] Protocol Loratadine 10 mg 02/13/21 09:00 Loratadine 10 Mg Tablet PO DAILY [facility] Magnesium Oxide 400 mg 02/13/21 09:00 Magnesium Oxide 400 Mg Tablet PO DAILY [facility] Montelukast Sodium 10 mg 02/13/21 21:00 Montelukast Sodium 10 Mg Tablet PO BEDTIME [facility] Naloxone HCl 4 mg 02/12/21 23:56 Naloxone Hcl Nasal 4 Mg [place] NOSTRILALT Q3M PRN OVER DOSE Pharmacy Consult 1 each 02/12/21 18:34 Consult Rx Perform Med Rec MISCELLANE ONCE PRN Consult order Polyethylene Glycol 17 gm 02/13/21 09:00 Polyethylene Glycol 3350 17 Gm Powd.Pack PO DAILY [facility] Senna 17.2 mg 02/12/21 23:53 Sennosides 8.6 Mg Tablet PO BEDTIME PRN Constipation Senna 8.6 mg 02/12/21 23:56 Sennosides 8.6 Mg Tablet PO BEDTIME PRN Constipation Sodium Chloride 3 ml 02/13/21 00:00 0.9 % Sodium Chloride Flush 3 M[facility] Spironolactone 12.5 mg 02/13/21 09:00 Spironolactone 25 Mg Tablet PO DAILY [facility] Protocol Tamsulosin HCl 0.4 mg 02/13/21 09:00 Tamsulosin Hcl 0.4 Mg Capsule PO DAILY [facility] Home Medications Medication Instructions Recorded Confirmed Last Taken Type FreeStyle Lite Strips 08/12/20 02/13/21 Unknown History albuterol sulfate 2 puff INHALATION Q4H PRN 08/12/20 02/13/21 Unknown History albuterol sulfate 2.5 mg INHALATION Q4H PRN 08/12/20 02/13/21 Unknown History blood-glucose meter [FreeStyle 08/12/20 02/13/21 Unknown History Galt Lite] cane 08/12/20 02/13/21 Unknown History lancets 08/12/20 02/13/21 Unknown History magnesium oxide [MagOx] 400 mg PO DAILY 08/12/20 02/13/21 Unknown History methadone 50 mg PO QAM 08/12/20 02/13/21 01/02/21 History pen needle, diabetic 08/12/20 02/13/21 Unknown History Eucerin 1 applic TOPICAL DAILY PRN 08/14/20 02/13/21 Unknown History Lantus U-100 Insulin 12 unit SUBCUT QPM 08/14/20 02/13/21 Unknown History aspirin 81 mg PO DAILY 08/14/20 02/13/21 Unknown History atorvastatin 20 mg PO BEDTIME 08/14/20 02/13/21 Unknown History carvedilol 6.25 mg PO BID 08/14/20 02/13/21 Unknown History cetirizine 10 mg PO DAILY 08/14/20 02/13/21 Unknown History clotrimazole 1 applic TOPICAL TID 08/14/20 02/13/21 Unknown History ergocalciferol (vitamin D2) 1,250 mcg PO QWEEK 08/14/20 02/13/21 Unknown History fluticasone propionate [Flonase 1 spray INTRANASAL DAILY 08/14/20 02/13/21 Unknown History Allergy Relief] gabapentin 200 mg PO TID 08/14/20 02/13/21 Unknown History montelukast 10 mg PO BEDTIME 08/14/20 02/13/21 Unknown History polyethylene glycol 3350 [Miralax] 17 g PO DAILY 08/14/20 02/13/21 Unknown History sennosides [senna] 8.6 mg PO BEDTIME PRN 08/14/20 02/13/21 Unknown History spironolactone 12.5 mg PO DAILY 08/14/20 02/13/21 Unknown History tamsulosin 0.4 mg PO DAILY 08/14/20 02/13/21 Unknown History zinc sulfate 220 mg PO DAILY 08/14/20 02/13/21 Unknown History Narcan 4 mg INTRANASAL Q3M PRN 11/24/20 02/13/21 Unknown History Physical Exam Vital Signs and Narrative: Vital Signs: Last Vital Signs Temp 98.7 F 02/12/21 16:34 Pulse 68 02/12/21 16:34 Resp 14 02/12/21 16:34 BP 116/57 L 02/12/21 16:34 Pulse Ox 98 02/12/21 16:34 Body Mass Index 25.0 Gen: Appears be in no acute distress HEENT: NCAT, Moist mucosa. Pulmonary: Vesicular breath sounds, fair air entry CVS: Normal S1-S2 Abdomen: BS+, Soft, Nontender Extremities: Warm well perfused; right BKA; ulcer has a long granulation tissue and superficial necrotic patch. Neuro: Alert and awake. Results Labs CBC and Chem 7: 02/14/21 07:04 02/13/21 07:05 Labs: Laboratory Results - last 24 hr 02/12/21 02/12/21 02/12/21 19:39 19:39 20:01 MCV 87.9 MCH 27.7 MCHC 31.6 RDW 13.4 Plt Count 310 MPV 8.3 L Immature Gran % (Auto) 0.4 Neut % (Auto) 78.6 H Lymph % (Auto) 9.6 L [place] % (Auto) 8.5 Eos % (Auto) 2.7 Baso % (Auto) 0.2 Lymph # (Auto) 1.0 L [place] # (Auto) 0.9 Eos # (Auto) 0.3 Baso # (Auto) 0.0 Abs Immat Gran (auto) 0.04 H Absolute Neuts (auto) 8.4 H Absolute Nucleated RBC 0.000 Nucleated RBC % (auto) 0.0 ESR Hold Blue Top SEE NOTE Anion Gap Estim Creat Clear Calc Estimated GFR Random Glucose Lactic Acid Calcium C-Reactive Protein COVID-19 (JAMILA) Negative COVID-19 Clin Com See Note 02/12/21 02/12/21 02/12/21 20:01 20:01 21:09 MCV MCH MCHC RDW Plt Count MPV Immature Gran % (Auto) Neut % (Auto) Lymph % (Auto) [place] % (Auto) Eos % (Auto) Baso % (Auto) Lymph # (Auto) [place] # (Auto) Eos # (Auto) Baso # (Auto) Abs Immat Gran (auto) Absolute Neuts (auto) Absolute Nucleated RBC Nucleated RBC % (auto) ESR Hold Blue Top SEE NOTE Anion Gap 14 Estim Creat Clear Calc 72.8 Estimated GFR > 60 Random Glucose 69 D Lactic Acid 1.3 Calcium 9.0 C-Reactive Protein 9.75 H COVID-19 (JAMILA) COVID-19 Clin Com 02/12/21 Unknown MCV MCH MCHC RDW Plt Count MPV Immature Gran % (Auto) Neut % (Auto) Lymph % (Auto) [place] % (Auto) Eos % (Auto) Baso % (Auto) Lymph # (Auto) [place] # (Auto) Eos # (Auto) Baso # (Auto) Abs Immat Gran (auto) Absolute Neuts (auto) Absolute Nucleated RBC Nucleated RBC % (auto) ESR 112 H Hold Blue Top Anion Gap Estim Creat Clear Calc Estimated GFR Random Glucose Lactic Acid Calcium C-Reactive Protein COVID-19 (JAMILA) COVID-19 Clin Com Imaging Radiologist's Impressions: Impressions Foot X-Ray 02/12/21 18:28 IMPRESSION: No change in the appearance of the presumed osteomyelitis of the posterior calcaneus. Ribs X-Ray 02/12/21 18:33 IMPRESSION: No evidence for acute disease. Specifically, no rib fractures identified. Head CT 02/12/21 22:09 IMPRESSION: No evidence for acute intracranial injury. Automated exposure control (Care Dose) Adjustment of the mA and/or kv according to patient size (this includes techniques or standardized protocols for targeted exams where dose is matched to indication / reason for exam; i.e. extremities or head). Chest X-Ray 02/13/21 00:00 IMPRESSION: The left-sided IJ catheter extends into the right subclavian vein rather than down into the SVC. This result was discussed with Dr. Mcmahan at 4:30 AM on 02/13/2021 and it was ascertained that the content of the report was understood at the time of direct communication. Assessment and Plan (1) Osteomyelitis: Qualifiers: Laterality: left Osteomyelitis location: foot Osteomyelitis type: unspecified type Qualified Code(s): M86.9 - Osteomyelitis, unspecified Problem details: chronic pressure ulcer left AMA last stay in December Status: Acute 1-year-old male with a past medical history diabetes, artery disease asthma/COPD, GERD, peripheral vascular disease, chronic left heel ulcer/osteomyelitis presented the with a chief complaint moderate discharge from the heel ulcer. Admitted further management. Chronic left heel ulcer/osteomyelitis/necrotic patch: MRI showed osteomyelitis. ER team discussed with Dr. wynne General surgery who mentioned no acute intervention tonight. Continue IV antibiotics. Consult ID for further recommendations. Diabetes: Insulin sliding scale COPD: Stable Hypertension/hyperlipidemia: Continue home medications History of opiate dependence: Patient on methadone. Will defer to the a.m. team confirm the methadone and resume accordingly. IV Access: Patient had left TLC placed in the ER. Depending in the right subclavian. Brown port unable to trauma. Otherwise TLC is functional per ER team. DVT prophylaxis: Subcu heparin Code status: Full code
[2021-02-13] MEDS: 0.9 % Sodium Chloride Flush 3 ML SYRINGE IVFLUSH ×3 (01:13→14:38)
[2021-02-13] MEDS: Clindamycin Phosphate/D5W 600 MG/50 ML PIGGYBACK 100 MG IV ×2 (01:13→07:08)
--- NOTE | 2021-02-13 01:14 | PC.NURSE ---
Left foot dressing applied by MADELEINE Christine. Central Line access established and confirmed placement by X-ray. Central line in subclavian vein rather than SVC. Central line access flushing appropriately without issue. Will continue to monitor.
[2021-02-13] MEDS: Insulin Glargine,Hum.rec.anlog 100 UNIT/ML 10 ML VIAL 12 UNIT SUBCUT (01:40)
[2021-02-13] MEDS: oxyCODONE HCl Immed Release 5 MG TABLET PO (01:41)
[2021-02-13] MEDS: Heparin Sodium,Porcine 5,000 UNIT/ML VIAL 5000 UNIT SUBCUT (01:41)
[2021-02-13] MEDS: Acetaminophen 325 MG TABLET 650 MG PO (04:13)
[2021-02-13] MEDS: Piperacillin Sodium/Tazobactam 3.375 GM in 0.9 % Sodium Chloride 50 ML IV ×3 (04:13→21:17)
--- NOTE | 2021-02-13 07:07 | PC.NURSE ---
report taken from eleazar vaca. frank dash at this time, lab at bedside for blood draw. blood drawn from central by this rn. pt tolerated well.
[2021-02-13 07:12] LABS: Basophils Percent Auto 0.2 % (0-2); Eosinophils Absolute Auto 0.2 X10*3/uL (0.0-0.4); Eosinophils Percent Auto 2.5 % (0-4); Hematocrit 23.3 % (42-52); Hemoglobin 7.3 g/dl (14.0-18.0); Imm Gran Abs Auto 0.04 X10*3/uL (0.00-0.03); Imm Gran Pct Auto 0.5 % (0.0-0.4); Lymphocytes Absolute Auto 0.6 X10*3/uL (1.2-4.9); Lymphocytes Percent Auto 6.3 % (20-40); MANUAL DIFF FLAG SCAN; Mean Corpuscular HGB Conc 31.3 g/dl (31.0-36.0); Mean Corpuscular Hemoglobin 27.7 pg (27.0-33.0); Mean Corpuscular Volume 88.3 fL (80-98); Mean Platelet Volume 8.3 fL (9.4-12.4); Monocytes Absolute Auto 0.9 X10*3/uL (0.1-1.2); Monocytes Percent Auto 10.2 % (2-11); Neutrophils Absolute Auto 7.1 X10*3/uL (2.0-8.3); Neutrophils Percent Auto 80.3 % (45-73); Platelet Count 230 X10*3/uL (160-400); Red Blood Count 2.64 X10*6/uL (4.60-5.80); Red Cell Distribution Width 13.6 % (11.0-16.0); SCAN SMEAR FLAG 1; White Blood Count 8.8 X10*3/uL (4.8-10.8)
[2021-02-13 07:59] LABS: Anion Gap 9 (12-20); Blood Urea Nitrogen 28 mg/dL (9-16); Calcium 8.3 mg/dL (8.4-10.2); Carbon Dioxide 29 mmol/L (22-29); Chloride 99 mmol/L (96-108); Creatinine Clr Calc Pharmacy 62.3; Estimated Glomerular Filt Rate > 60; Glucose Random 100 mg/dL (60-115); Potassium 4.4 mmol/L (3.3-5.1); Sodium 133 mmol/L (135-145)
[2021-02-13 08:01] LABS: SLIDE REVIEW VERIFIED
[2021-02-13 08:05] LABS: Glucose, Whole Blood 79 mg/dL (60-115)
--- NOTE | 2021-02-13 08:26 | PC.NURSE ---
cm verifying methadone dose
[2021-02-13] MEDS: Magnesium Oxide 400 MG TABLET PO (09:11)
[2021-02-13] MEDS: Aspirin Enteric Coated 81 MG TABLET.DR PO (09:11)
[2021-02-13] MEDS: Furosemide 40 MG TABLET PO (09:11)
[2021-02-13] MEDS: Gabapentin 100 MG CAPSULE 200 MG PO ×2 (09:11→21:08)
[2021-02-13] MEDS: Tamsulosin HCL 0.4 MG CAPSULE PO (09:11)
[2021-02-13] MEDS: Loratadine 10 MG TABLET PO (09:11)
[2021-02-13 09:12] VITALS: BP 114/51; PULSE 66
[2021-02-13] MEDS: carvediloL 6.25 MG TABLET PO ×2 (09:12→21:13)
[2021-02-13] MEDS: Spironolactone 25 MG TABLET 12.5 MG PO (09:12)
[2021-02-13 09:20] VITALS: BP 114/51; PULSE 66; RESP 16; O2SAT 98
--- NOTE | 2021-02-13 12:53 | P.PNIM_ITS ---
Subjective Subjective Date of Service: 02/14/21 Interval History: Patient presented to [place] ER due to worsening left heel ulcer with malodorous drainage of 3-4 days, at present patient is requesting for his methadone, denies fever chills denies pain. General no headache no dizziness no fever chills. CVS no chest pain, no palpitation. Respiratory no cough, no sob. Gastrointestinal no nausea no vomiting, no abdominal pain Physical Exam Vital Signs: Vital Signs: Last Vital Signs Temp 98.7 F 02/12/21 16:34 Pulse 66 02/13/21 09:20 Resp 16 02/13/21 09:20 BP 114/51 L 02/13/21 09:20 Pulse Ox 98 02/13/21 09:20 Body Mass Index 25.0 General patient resting comfortably in no acute distress. Neck is supple no JVD. CVS regular rate rhythm, Respiratory lungs clear to auscultation, no respiratory distress, no wheeze, no rhonchi. Gastrointestinal abdomen soft, nontender, bowel sounds audible. Extremities rt BKA,left foot dressing in place dressing dry . Neuro nonfocal , speech clear. small abrasion at nasl bridge Objective Data Current Medications Generic Name Dose Route Start Last Admin Trade Name Freq PRN Reason Stop Dose Admin Acetaminophen 650 mg 02/12/21 23:53 02/13/21 04:13 Acetaminophen 325 Mg Tablet PO 650 mg Q6H PRN Administration Pain, Mild (Pain Scale 1-3) Albuterol Sulfate 2.5 mg 02/12/21 23:56 Albuterol Sulfate (0.083%) 2.5 Mg/3 Ml Vial.Neb INHALE Q4H PRN Shortness Of Breath Or Wheezing Albuterol Sulfate 2 puff 02/12/21 23:56 Albuterol Sulfate 90 Mcg 8 Gm Inhaler INHALE Q4H PRN Shortness Of Breath Aspirin 81 mg 02/13/21 09:00 02/13/21 09:11 Aspirin Enteric Coated 81 Mg Tablet. PO 81 mg DAILY [facility] Administration Atorvastatin Calcium 20 mg 02/13/21 21:00 Atorvastatin Calcium 20 Mg Tablet PO BEDTIME [facility] Carvedilol 6.25 mg 02/13/21 09:00 02/13/21 09:12 Carvedilol 6.25 Mg Tablet PO 6.25 mg BID [facility] Administration Protocol Ergocalciferol 1,250 mcg 02/15/21 09:00 Ergocalciferol (Vitamin D2) 1,250 Mcg Capsule PO Q7D [facility] Fluticasone Propionate 1 spray 02/13/21 09:00 02/13/21 09:12 Fluticasone Propionate Nasal 16 Gm [place] NOSTRIL-B Not Given DAILY [facility] Furosemide 40 mg 02/13/21 09:00 02/13/21 09:11 Furosemide 40 Mg Tablet PO 40 mg DAILY [facility] Administration Protocol Gabapentin 200 mg 02/13/21 09:00 02/13/21 09:11 Gabapentin 100 Mg Capsule PO 200 mg TID [facility] Administration Heparin Sodium (Porcine) 5,000 unit 02/12/21 00:00 02/13/21 09:12 Heparin Sodium,Porcine 5,000 Unit/Ml Vial SUBCUT Not Given Q8H [facility] Clindamycin Phosphate 600 mg in 50 mls @ 100 mls/hr 02/13/21 06:00 02/13/21 07:47 Cleocin IV Infused Q8H [facility] Infusion Piperacillin Sod/Tazobactam 50 mls @ 100 mls/hr 02/13/21 04:00 02/13/21 09:40 Sod 3.375 gm/ Sodium Chloride IV Infused Q6H [facility] Infusion Insulin Glargine 12 unit 02/12/21 23:45 02/13/21 01:40 Insulin Glargine,Hum.Rec.Anlog 100 Unit/Ml 10 Ml Vial SUBCUT 12 unit BEDTIME [facility] Administration Insulin Human Lispro 0 unit 02/13/21 07:30 02/13/21 08:04 Insulin Lispro 100 Unit/Ml 3 Ml Vial SUBCUT Not Given QIDACHS [facility] Protocol Loratadine 10 mg 02/13/21 09:00 02/13/21 09:11 Loratadine 10 Mg Tablet PO 10 mg DAILY [facility] Administration Magnesium Oxide 400 mg 02/13/21 09:00 02/13/21 09:11 Magnesium Oxide 400 Mg Tablet PO 400 mg DAILY [facility] Administration Methadone HCl 50 mg 02/13/21 12:15 Methadone Hcl 1 Mg/0.1 Ml Oral.Conc PO DAILY [facility] Montelukast Sodium 10 mg 02/13/21 21:00 Montelukast Sodium 10 Mg Tablet PO BEDTIME [facility] Naloxone HCl 4 mg 02/12/21 23:56 Naloxone Hcl Nasal 4 Mg [place] NOSTRILALT Q3M PRN OVER DOSE Pharmacy Consult 1 each 02/12/21 18:34 Consult Rx Perform Med Rec MISCELLANE ONCE PRN Consult order Polyethylene Glycol 17 gm 02/13/21 09:00 02/13/21 09:13 Polyethylene Glycol 3350 17 Gm Powd.Pack PO Not Given DAILY [facility] Senna 17.2 mg 02/12/21 23:53 Sennosides 8.6 Mg Tablet PO BEDTIME PRN Constipation Senna 8.6 mg 02/12/21 23:56 Sennosides 8.6 Mg Tablet PO BEDTIME PRN Constipation Sodium Chloride 3 ml 02/13/21 00:00 02/13/21 08:04 0.9 % Sodium Chloride Flush 3 Ml Syringe IVFLUSH 3 ml QSHIFT [facility] Administration Spironolactone 12.5 mg 02/13/21 09:00 02/13/21 09:12 Spironolactone 25 Mg Tablet PO 12.5 mg DAILY [facility] Administration Protocol Tamsulosin HCl 0.4 mg 02/13/21 09:00 02/13/21 09:11 Tamsulosin Hcl 0.4 Mg Capsule PO 0.4 mg DAILY [facility] Administration Labs CBC & Chem 7: 02/14/21 07:04 02/13/21 07:05 Assessment and Plan (1) Osteomyelitis: Status: Acute Assessment and Plan: 50-year-old male with a past medical history diabetes, asthma/COPD, GERD, peripheral vascular disease, chronic left heel ulcer/osteomyelitis presented the with a chief complaint of moderate discharge from the heel ulcer. Admitted further management. Chronic left heel ulcer/osteomyelitis/ Patient sent to ER by [facility] due to malodorous discharge ,pt. afebrile, normal WBC, no change in the appearance of presumed osteomyelitis of posterior calcaneal, MRI 0n 11/27 showed osteomyelitis of calcaneus, patient being followed by wound clinic and [facility] service, with Betadine and dry sterile dressing, await surgical input for wound care/dressing Will discontinue IV clindamycin and continue IV Zosyn day 1 follow blood cultures x2 pending now, will discuss need for IV antibiotic and duration with ID. C-reactive protein 9.75 has been chronically elevated, Due to poor IV access left IJ catheter placed. Acute on chronic anemia with stool occult positive in the past, no active bleeding noted, follow hematocrit, iron studies, stool guaiac, hold blood transfusion if hemoglobin below 7 will transfuse Patient evaluated by Gastroenterology during last visit plan was for endoscopy if patient noted to have active GI bleed will continue PPI Diabetes/peripheral neuropathy: On Lantus 12 units, diabetic diet and Insulin sliding scale, continue Neurontin COPD/asthma: No acute exacerbation Hypertension/hyperlipidemia/systolic congestive heart failure EF 15-20%: Continue Coreg, Lasix,and Aldactone no acute CHF exacerbation, BP borderline low, if BP remains low will discontinue Aldactone, patient appears euvolemic. History of opiate dependence: Patient on methadone. Dose verified will resume methadone . DVT prophylaxis: on heparin Code status: Full code
[2021-02-13 12:59] LABS: Glucose, Whole Blood 98 mg/dL (60-115)
--- NOTE | 2021-02-13 14:29 | PM.CNGS ---
History of Present Illness Consult details Consult date: 02/13/21 Requesting physician: Ronald Mccullough Narrative: This is a 50-year-old male with an extensive past medical history including diabetes mellitus, peripheral vascular disease status post Angioplasty of peroneal artery, Angioplasty of left anterior tibial artery, and Angioplasty of left popliteal/SFA on 11/30/[address] Vaughn, coronary artery disease with history of OK, CHF, COPD and history of substance abuse who has been under treatment for osteomyelitis of the left heel with an associated pressure ulcer. He complains of left heel pain but does not report fever or chills. On presentation yesterday, he was noted to have malodorous drainage from the left heel ulcer. He had a similar presentation to the emergency department a few days ago. Admission was advised, but he refused admission at that time. [facility] Review of Systems Musculoskeletal: Comments: Reports left heel pain PMFSH Past Medical History Medical History Acute on chronic anemia Acute on chronic combined systolic and diastolic congestive heart failure Asthma Bipolar 1 disorder BPH (benign prostatic hyperplasia) Cholelithiasis Closed wedge compression fracture of T9 vertebra COPD (chronic obstructive pulmonary disease) Diabetes mellitus, type 2 GERD (gastroesophageal reflux disease) Hyperlipidemia Peripheral arterial disease Peripheral neuropathy Substance abuse Family History Family History Father Chronic mental illness Hypertension Asthma Stroke Mother Asthma Diabetes Coronary artery disease Surgical History Surgical History History of amputation History of laminectomy History of transurethral resection of prostate Hx of BKA Social History Social History Household Members: None Housing: Other Alcohol intake: current Alcohol intake frequency: does not drink Alcohol type: beer Smoking Status: Current every day smoker Second Hand Smoke Exposure: No Use of substances other than those prescribed or required for medical reasons: Yes Substance Use Type: IV Drugs Substance Use Frequency: Chronic Longstanding Advance Directives: Yes Advance Directives on File: Yes Advance Directives Date on File: 11/24/20 service: No Current occupational status: disabled Meds Allergies Allergy/AdvReac Type Severity Reaction Status Date / Time ertapenem Allergy Intermediate Hives Verified 02/13/21 00:20 vancomycin [VANCOMYCIN] Allergy Intermediate HIVES Verified 02/13/21 00:20 Chocolate Allergy Unknown Rash Verified 02/13/21 00:20 ciprofloxacin [From CIPRO] Allergy Unknown SWELLING Verified 02/13/21 00:20 hydrocortisone [Cipro HC] Allergy Unknown Unknown Verified 02/13/21 00:20 sulfamethoxazole Allergy Unknown rash Verified 02/13/21 00:20 [From BACTRIM] trimethoprim [From BACTRIM] Allergy Unknown rash Verified 02/13/21 00:20 turkey [TURKEY] Allergy Unknown RASH Verified 02/13/21 00:20 Active Medications: Current Medications Generic Name Dose Route Start Last Admin Trade Name Freq PRN Reason Stop Dose Admin Acetaminophen 650 mg 02/12/21 23:53 02/13/21 04:13 Acetaminophen 325 Mg Tablet PO 650 mg Q6H PRN Administration Pain, Mild (Pain Scale 1-3) Albuterol Sulfate 2.5 mg 02/12/21 23:56 Albuterol Sulfate (0.083%) 2.5 Mg/3 Ml Vial.Neb INHALE Q4H PRN Shortness Of Breath Or Wheezing Albuterol Sulfate 2 puff 02/12/21 23:56 Albuterol Sulfate 90 Mcg 8 Gm Inhaler INHALE Q4H PRN Shortness Of Breath Atorvastatin Calcium 20 mg 02/13/21 21:00 Atorvastatin Calcium 20 Mg Tablet PO BEDTIME [facility] Carvedilol 6.25 mg 02/13/21 09:00 02/13/21 09:12 Carvedilol 6.25 Mg Tablet PO 6.25 mg BID [facility] Administration Protocol Ergocalciferol 1,250 mcg 02/15/21 09:00 Ergocalciferol (Vitamin D2) 1,250 Mcg Capsule PO Q7D [facility] Fluticasone Propionate 1 spray 02/13/21 09:00 02/13/21 09:12 Fluticasone Propionate Nasal 16 Gm [place] NOSTRIL-B Not Given DAILY [facility] Furosemide 40 mg 02/13/21 09:00 02/13/21 09:11 Furosemide 40 Mg Tablet PO 40 mg DAILY [facility] Administration Protocol Gabapentin 200 mg 02/13/21 09:00 02/13/21 09:11 Gabapentin 100 Mg Capsule PO 200 mg TID [facility] Administration Heparin Sodium (Porcine) 5,000 unit 02/12/21 00:00 02/13/21 09:12 Heparin Sodium,Porcine 5,000 Unit/Ml Vial SUBCUT Not Given Q8H [facility] Clindamycin Phosphate 600 mg in 50 mls @ 100 mls/hr 02/13/21 06:00 02/13/21 07:47 Cleocin IV Infused Q8H [facility] Infusion Piperacillin Sod/Tazobactam 50 mls @ 100 mls/hr 02/13/21 04:00 02/13/21 09:40 Sod 3.375 gm/ Sodium Chloride IV Infused Q6H [facility] Infusion Insulin Glargine 12 unit 02/12/21 23:45 02/13/21 01:40 Insulin Glargine,Hum.Rec.Anlog 100 Unit/Ml 10 Ml Vial SUBCUT 12 unit BEDTIME [facility] Administration Insulin Human Lispro 0 unit 02/13/21 07:30 02/13/21 12:55 Insulin Lispro 100 Unit/Ml 3 Ml Vial SUBCUT Not Given QIDACHS [facility] Protocol Loratadine 10 mg 02/13/21 09:00 02/13/21 09:11 Loratadine 10 Mg Tablet PO 10 mg DAILY [facility] Administration Magnesium Oxide 400 mg 02/13/21 09:00 02/13/21 09:11 Magnesium Oxide 400 Mg Tablet PO 400 mg DAILY [facility] Administration Methadone HCl 50 mg 02/13/21 12:15 02/13/21 12:54 Methadone Hcl 1 Mg/0.1 Ml Oral.Conc PO 50 mg DAILY [facility] Administration Montelukast Sodium 10 mg 02/13/21 21:00 Montelukast Sodium 10 Mg Tablet PO BEDTIME [facility] Naloxone HCl 4 mg 02/12/21 23:56 Naloxone Hcl Nasal 4 Mg [place] NOSTRILALT Q3M PRN OVER DOSE Omeprazole 20 mg 02/13/21 13:30 Omeprazole 20 Mg Capsule. PO DAILY@0630 [facility] Pharmacy Consult 1 each 02/12/21 18:34 Consult Rx Perform Med Rec MISCELLANE ONCE PRN Consult order Polyethylene Glycol 17 gm 02/13/21 09:00 02/13/21 09:13 Polyethylene Glycol 3350 17 Gm Powd.Pack PO Not Given DAILY [facility] Senna 17.2 mg 02/12/21 23:53 Sennosides 8.6 Mg Tablet PO BEDTIME PRN Constipation Senna 8.6 mg 02/12/21 23:56 Sennosides 8.6 Mg Tablet PO BEDTIME PRN Constipation Sodium Chloride 3 ml 02/13/21 00:00 02/13/21 08:04 0.9 % Sodium Chloride Flush 3 Ml Syringe IVFLUSH 3 ml QSHIFT [facility] Administration Spironolactone 12.5 mg 02/13/21 09:00 02/13/21 09:12 Spironolactone 25 Mg Tablet PO 12.5 mg DAILY [facility] Administration Protocol Tamsulosin HCl 0.4 mg 02/13/21 09:00 02/13/21 09:11 Tamsulosin Hcl 0.4 Mg Capsule PO 0.4 mg DAILY [facility] Administration Home Medications Medication Instructions Recorded Confirmed Last Taken Type FreeStyle Lite Strips 08/12/20 02/13/21 Unknown History albuterol sulfate 2 puff INHALATION Q4H PRN 08/12/20 02/13/21 Unknown History albuterol sulfate 2.5 mg INHALATION Q4H PRN 08/12/20 02/13/21 Unknown History blood-glucose meter [FreeStyle 08/12/20 02/13/21 Unknown History [place]] cane 08/12/20 02/13/21 Unknown History lancets 08/12/20 02/13/21 Unknown History magnesium oxide [MagOx] 400 mg PO DAILY 08/12/20 02/13/21 Unknown History methadone 50 mg PO QAM 08/12/20 02/13/21 01/02/21 History pen needle, diabetic 08/12/20 02/13/21 Unknown History Eucerin 1 applic TOPICAL DAILY PRN 08/14/20 02/13/21 Unknown History Lantus U-100 Insulin 12 unit SUBCUT QPM 08/14/20 02/13/21 Unknown History aspirin 81 mg PO DAILY 08/14/20 02/13/21 Unknown History atorvastatin 20 mg PO BEDTIME 08/14/20 02/13/21 Unknown History carvedilol 6.25 mg PO BID 08/14/20 02/13/21 Unknown History cetirizine 10 mg PO DAILY 08/14/20 02/13/21 Unknown History clotrimazole 1 applic TOPICAL TID 08/14/20 02/13/21 Unknown History ergocalciferol (vitamin D2) 1,250 mcg PO QWEEK 08/14/20 02/13/21 Unknown History fluticasone propionate [Flonase 1 spray INTRANASAL DAILY 08/14/20 02/13/21 Unknown History Allergy Relief] gabapentin 200 mg PO TID 08/14/20 02/13/21 Unknown History montelukast 10 mg PO BEDTIME 08/14/20 02/13/21 Unknown History polyethylene glycol 3350 [Miralax] 17 g PO DAILY 08/14/20 02/13/21 Unknown History sennosides [senna] 8.6 mg PO BEDTIME PRN 08/14/20 02/13/21 Unknown History spironolactone 12.5 mg PO DAILY 08/14/20 02/13/21 Unknown History tamsulosin 0.4 mg PO DAILY 08/14/20 02/13/21 Unknown History zinc sulfate 220 mg PO DAILY 08/14/20 02/13/21 Unknown History Narcan 4 mg INTRANASAL Q3M PRN 11/24/20 02/13/21 Unknown History Physical Exam Vital Signs: Vital Signs: Last Vital Signs Temp 98.7 F 02/12/21 16:34 Pulse 66 02/13/21 09:20 Resp 16 02/13/21 09:20 BP 114/51 L 02/13/21 09:20 Pulse Ox 98 02/13/21 09:20 Body Mass Index 25.0 Const: General: cooperative, comfortable and no acute distress Resp: Effort & Inspection: normal respiratory effort Auscultation: clear to auscultation bilaterally Cardio: Rate: regular rate Rhythm: regular rhythm Extrem: Other: Right BKA. Left heel ulcer approximately 5 cm in diameter with eschar present covering the distal approximately 75-80%, open proximally with granulation tissue present, no significant surrounding erythema, no active drainage or odor, left foot is warm. Pedal pulses are not palpable Results Labs Result diagrams: 02/13/21 07:04 02/13/21 07:05 Labs: Abnormal lab results 02/12/21 02/12/21 02/12/21 Range/Units 20:01 20:01 Unknown RBC 3.21 L (4.60-5.80) X10*6/uL Hgb 8.9 L (14.0-18.0) g/dl Hct 28.2 L (42-52) % MPV 8.3 L (9.4-12.4) fL Immature Gran % (Auto) (0.0-0.4) % Neut % (Auto) 78.6 H (45-73) % Lymph % (Auto) 9.6 L (20-40) % Lymph # (Auto) 1.0 L (1.2-4.9) X10*3/uL Abs Immat Gran (auto) 0.04 H (0.00-0.03) X10*3/uL Absolute Neuts (auto) 8.4 H (2.0-8.3) X10*3/uL ESR 112 H (0-15) MM/HR Sodium 134 L (135-145) mmol/L Anion Gap (12-20) BUN 29 H D (9-16) mg/dL Calcium (8.4-10.2) mg/dL C-Reactive Protein 9.75 H (< or = 0.50) mg/dL 02/13/21 02/13/21 Range/Units 07:04 07:05 RBC 2.64 L (4.60-5.80) X10*6/uL Hgb 7.3 L (14.0-18.0) g/dl Hct 23.3 L (42-52) % MPV 8.3 L (9.4-12.4) fL Immature Gran % (Auto) 0.5 H (0.0-0.4) % Neut % (Auto) 80.3 H (45-73) % Lymph % (Auto) 6.3 L (20-40) % Lymph # (Auto) 0.6 L (1.2-4.9) X10*3/uL Abs Immat Gran (auto) 0.04 H (0.00-0.03) X10*3/uL Absolute Neuts (auto) (2.0-8.3) X10*3/uL ESR (0-15) MM/HR Sodium 133 L (135-145) mmol/L Anion Gap 9 L (12-20) BUN 28 H (9-16) mg/dL Calcium 8.3 L D (8.4-10.2) mg/dL C-Reactive Protein (< or = 0.50) mg/dL Short CBC 02/12/21 02/13/21 Range/Units 20:01 07:04 WBC 10.6 8.8 (4.8-10.8) X10*3/uL Hgb 8.9 L 7.3 L (14.0-18.0) g/dl Hct 28.2 L 23.3 L (42-52) % Plt Count 310 230 D (160-400) X10*3/uL BMP 02/12/21 02/13/21 20:01 07:05 Sodium 134 L 133 L Potassium 5.0 D 4.4 Chloride 98 99 Carbon Dioxide 27 29 BUN 29 H D 28 H Creatinine 1.07 1.25 Calcium 9.0 8.3 L D All other labs normal. Assessment and Plan (1) Osteomyelitis: Qualifiers: Laterality: left Osteomyelitis location: foot Osteomyelitis type: unspecified type Qualified Code(s): M86.9 - Osteomyelitis, unspecified Status: Acute Known history of osteomyelitis of left heel. (2) Pressure ulcer of left heel, stage 3: Status: Acute Chronic pressure ulcer left heel that had been unstageable, completely covered by eschar until recently. There is partial separation with granulation tissue present over proximal 20-25% and eschar remaining distally. The eschar appears to be . Wound care had been with Betadine and dry sterile dressings. As the eschar is and granulation tissue is present, suggest trial of collagen Hydrogel and continued observation. Given the extent of the osteomyelitis, below-knee amputation ultimately may be required but does not appear necessary at this time.
--- NOTE | 2021-02-13 14:57 | PC.NURSE ---
pt continues to refuse vitals, pt now refusing meds. pt arguing with staff. pt redirectable for short amount of time.
[2021-02-13 17:48] LABS: Glucose, Whole Blood 114 mg/dL (60-115)
[2021-02-13 18:00] VITALS: BP 97/52; PULSE 59; RESP 16; O2SAT 99
[2021-02-13 19:36] VITALS: BP 108/55; PULSE 62; RESP 18; TEMP 36.9; O2SAT 100
[2021-02-13 21:08] LABS: Glucose, Whole Blood 83 mg/dL (60-115)
[2021-02-13] MEDS: Atorvastatin Calcium 20 MG TABLET PO (21:08)
[2021-02-13] MEDS: Montelukast Sodium 10 MG TABLET PO (21:08)
[2021-02-13 21:13] VITALS: BP 105/55; PULSE 68
[2021-02-14] VITALS: BP 102/46; PULSE 57; RESP 18; TEMP 37.1; O2SAT 97
[2021-02-14] MEDS: 0.9 % Sodium Chloride Flush 3 ML SYRINGE IVFLUSH ×3 (01:13→15:27)
[2021-02-14] MEDS: Heparin Sodium,Porcine 5,000 UNIT/ML VIAL 5000 UNIT SUBCUT (01:13)
[2021-02-14] MEDS: Piperacillin Sodium/Tazobactam 3.375 GM in 0.9 % Sodium Chloride 50 ML IV ×3 (04:01→15:27)
[2021-02-14 07:09] LABS: MANUAL DIFF FLAG NO
[2021-02-14 07:19] LABS: Basophils Percent Auto 0.2 % (0-2); Eosinophils Absolute Auto 0.4 X10*3/uL (0.0-0.4); Eosinophils Percent Auto 4.9 % (0-4); Hematocrit 24.6 % (42-52); Hemoglobin 7.7 g/dl (14.0-18.0); Imm Gran Abs Auto 0.03 X10*3/uL (0.00-0.03); Imm Gran Pct Auto 0.3 % (0.0-0.4); Lymphocytes Absolute Auto 0.8 X10*3/uL (1.2-4.9); Lymphocytes Percent Auto 9.2 % (20-40); Mean Corpuscular HGB Conc 31.3 g/dl (31.0-36.0); Mean Corpuscular Hemoglobin 27.3 pg (27.0-33.0); Mean Corpuscular Volume 87.2 fL (80-98); Mean Platelet Volume 8.4 fL (9.4-12.4); Monocytes Absolute Auto 0.9 X10*3/uL (0.1-1.2); Monocytes Percent Auto 10.1 % (2-11); Neutrophils Absolute Auto 6.6 X10*3/uL (2.0-8.3); Neutrophils Percent Auto 75.3 % (45-73); Platelet Count 256 X10*3/uL (160-400); Red Blood Count 2.82 X10*6/uL (4.60-5.80); Red Cell Distribution Width 13.4 % (11.0-16.0); White Blood Count 8.7 X10*3/uL (4.8-10.8)
[2021-02-14 07:40] LABS: Iron 27 mcg/dL (45-160); Percent Iron Saturation 16 % (15-50); Total Iron Binding Capacity 170 mcg/dL (228-428); Unsaturated Iron Binding 143 ug/dL
--- NOTE | 2021-02-14 07:51 | PC.NURSE ---
call placed to med surg for report
[2021-02-14 08:00] VITALS: BP 102/54; PULSE 73; RESP 18; TEMP 37.1; O2SAT 99
[2021-02-14 08:00] LABS: Ferritin 593 ng/mL (20-250)
--- NOTE | 2021-02-14 08:35 | PC.NURSE ---
report given to shayla vaca
[2021-02-14 08:41] LABS: Glucose, Whole Blood 88 mg/dL (60-115)
[2021-02-14] MEDS: Magnesium Oxide 400 MG TABLET PO (08:45)
[2021-02-14] MEDS: Gabapentin 100 MG CAPSULE 200 MG PO (08:45)
[2021-02-14] MEDS: Furosemide 40 MG TABLET PO (08:45)
[2021-02-14 08:46] VITALS: BP 98/44
[2021-02-14] MEDS: carvediloL 6.25 MG TABLET PO (08:46)
[2021-02-14] MEDS: polyethylene glycoL 3350 17 GM POWD.PACK PO (08:47)
[2021-02-14 08:48] VITALS: BP 98/44
[2021-02-14] MEDS: Spironolactone 25 MG TABLET 12.5 MG PO (08:48)
[2021-02-14] MEDS: Loratadine 10 MG TABLET PO (08:48)
[2021-02-14] MEDS: Tamsulosin HCL 0.4 MG CAPSULE PO (08:49)
[2021-02-14 09:38] LABS: Glucose, Whole Blood 132 mg/dL (60-115)
--- NOTE | 2021-02-14 11:25 | P.PNIM_ITS ---
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 ROS General no headache no dizziness no fever chills. CVS no chest pain, no palpitation. Respiratory no cough, no sob. Gastrointestinal no nausea, no vomiting, no abdominal pain Physical Exam Vital Signs: Vital Signs: Last Vital Signs Temp 98.7 F 02/14/21 08:00 Pulse 73 02/14/21 08:00 Resp 18 02/14/21 08:00 BP 98/44 L 02/14/21 08:48 Pulse Ox 99 02/14/21 08:00 Body Mass Index 25.0 General resting comfortably , in no acute distress. Neck is supple no JVD. CVS regular rate rhythm, Respiratory lungs clear to auscultation, no respiratory distress, no wheeze, no rhonchi. Gastrointestinal abdomen soft, nontender, bowel sounds audible. Extremities rt BKA,left foot dressing in place Neuro nonfocal , speech clear. small abrasion at nasal bridge Objective Data Current Medications Generic Name Dose Route Start Last Admin Trade Name Freq PRN Reason Stop Dose Admin Acetaminophen 650 mg 02/12/21 23:53 02/13/21 04:13 Acetaminophen 325 Mg Tablet PO 650 mg Q6H PRN Administration Pain, Mild (Pain Scale 1-3) Albuterol Sulfate 2.5 mg 02/12/21 23:56 Albuterol Sulfate (0.083%) 2.5 Mg/3 Ml Vial.Neb INHALE Q4H PRN Shortness Of Breath Or Wheezing Albuterol Sulfate 2 puff 02/12/21 23:56 Albuterol Sulfate 90 Mcg 8 Gm Inhaler INHALE Q4H PRN Shortness Of Breath Atorvastatin Calcium 20 mg 02/13/21 21:00 02/13/21 21:08 Atorvastatin Calcium 20 Mg Tablet PO 20 mg BEDTIME [facility] Administration Carvedilol 6.25 mg 02/13/21 09:00 02/14/21 08:46 Carvedilol 6.25 Mg Tablet PO 6.25 mg BID [facility] Administration Protocol Ergocalciferol 1,250 mcg 02/15/21 09:00 Ergocalciferol (Vitamin D2) 1,250 Mcg Capsule PO Q7D [facility] Fluticasone Propionate 1 spray 02/13/21 09:00 02/14/21 09:56 Fluticasone Propionate Nasal 16 Gm [place] NOSTRIL-B Not Given DAILY [facility] Furosemide 40 mg 02/13/21 09:00 02/14/21 08:45 Furosemide 40 Mg Tablet PO 40 mg DAILY [facility] Administration Protocol Gabapentin 200 mg 02/13/21 09:00 02/14/21 08:45 Gabapentin 100 Mg Capsule PO 200 mg TID [facility] Administration Heparin Sodium (Porcine) 5,000 unit 02/12/21 00:00 02/14/21 09:42 Heparin Sodium,Porcine 5,000 Unit/Ml Vial SUBCUT Not Given Q8H [facility] Piperacillin Sod/Tazobactam 50 mls @ 100 mls/hr 02/13/21 04:00 02/14/21 10:32 Sod 3.375 gm/ Sodium Chloride IV Infused Q6H [facility] Infusion Vancomycin HCl 1,000 mg/ 270 mls @ 270 mls/hr 02/14/21 11:30 Sodium Chloride IV Q12H [facility] Insulin Glargine 12 unit 02/12/21 23:45 02/13/21 21:10 Insulin Glargine,Hum.Rec.Anlog 100 Unit/Ml 10 Ml Vial SUBCUT Not Given BEDTIME [facility] Insulin Human Lispro 0 unit 02/13/21 07:30 02/14/21 08:50 Insulin Lispro 100 Unit/Ml 3 Ml Vial SUBCUT Not Given QIDACHS [facility] Protocol Loratadine 10 mg 02/13/21 09:00 02/14/21 08:48 Loratadine 10 Mg Tablet PO 10 mg DAILY [facility] Administration Magnesium Oxide 400 mg 02/13/21 09:00 02/14/21 08:45 Magnesium Oxide 400 Mg Tablet PO 400 mg DAILY [facility] Administration Methadone HCl 50 mg 02/13/21 12:15 02/14/21 09:55 Methadone Hcl 1 Mg/0.1 Ml Oral.Conc PO 50 mg DAILY [facility] Administration Montelukast Sodium 10 mg 02/13/21 21:00 02/13/21 21:08 Montelukast Sodium 10 Mg Tablet PO 10 mg BEDTIME [facility] Administration Naloxone HCl 4 mg 02/12/21 23:56 Naloxone Hcl Nasal 4 Mg [place] NOSTRILALT Q3M PRN OVER DOSE Omeprazole 20 mg 02/13/21 13:30 02/14/21 06:13 Omeprazole 20 Mg Capsule.Dr PO Not Given DAILY@30 [facility] Pharmacy Consult 1 each 02/12/21 18:34 Consult Rx Perform Med Rec MISCELLANE ONCE PRN Consult order Pharmacy Consult 1 each 02/14/21 11:20 Consult Rx Vancomycin Dosing MISCELLANE DAILY PRN Consult order Polyethylene Glycol 17 gm 02/13/21 09:00 02/14/21 08:47 Polyethylene Glycol 3350 17 Gm Powd.Pack PO 17 gm DAILY [facility] Administration Senna 17.2 mg 02/12/21 23:53 Sennosides 8.6 Mg Tablet PO BEDTIME PRN Constipation Senna 8.6 mg 02/12/21 23:56 Sennosides 8.6 Mg Tablet PO BEDTIME PRN Constipation Sodium Chloride 3 ml 02/13/21 00:00 02/14/21 09:55 0.9 % Sodium Chloride Flush 3 Ml Syringe IVFLUSH 3 ml QSHIFT [facility] Administration Spironolactone 12.5 mg 02/13/21 09:00 02/14/21 08:48 Spironolactone 25 Mg Tablet PO 12.5 mg DAILY [facility] Administration Protocol Tamsulosin HCl 0.4 mg 02/13/21 09:00 02/14/21 08:49 Tamsulosin Hcl 0.4 Mg Capsule PO 0.4 mg DAILY [facility] Administration Labs CBC & Chem 7: 02/14/21 07:04 02/13/21 07:05 Microbiology Microbiology Results: Microbiology 02/12/21 21:22 Blood - Venous Blood Culture - Preliminary 02/12/21 20:15 Blood - Venous Blood Culture - Preliminary No growth after 24 hours. Assessment and Plan (1) Pressure ulcer of left heel, stage 3: Status: Acute (2) Osteomyelitis: Status: Acute (3) Acute on chronic anemia: Status: Acute (4) Peripheral arterial disease: Status: Acute (5) Unstageable pressure ulcer of heel: Problem details: There is osteomyelitis Multiple organisms can be present Status: Acute (6) Gram-positive bacteremia: Status: Acute Assessment and Plan: 50-year-old male with a past medical history diabetes, asthma/COPD, GERD, peripheral vascular disease, chronic left heel ulcer/osteomyelitis presented the with a chief complaint of moderate discharge from the heel ulcer. Admitted further management. Chronic left heel ulcer/osteomyelitis Patient sent to ER by [facility] due to malodorous discharge ,pt. afebrile, normal WBC,MRI 0n 1/15 showed osteomyelitis of calcaneus, chronically elevated crp patient seen by Dr. Purvis She recommend collagen Hydrogel dressing to left heel, blood culture 1/2 positive for Gram-positive cocci, will add vancomycin and continue Zosyn day 2 follow final blood culture report And adjust antibiotic, will check MRSA surveillance Continue above treatment and supportive care. Acute on chronic anemia with stool occult positive in the past, no active bleeding noted, hematocrit stable today with normal iron studies, likely anemia of chronic disease due to chronic infection Patient evaluated by Gastroenterology during last visit plan was for endoscopy if patient noted to have active GI bleed will continue PPI, continue to follow clinical course. Diabetes/peripheral neuropathy: On Lantus 12 units, diabetic diet and Insulin sliding scale, continue Neurontin blood sugar 171 this a.m. COPD/asthma: No acute exacerbation Hypertension/hyperlipidemia/systolic congestive heart failure EF 15-20%: on Coreg, Lasix,and Aldactone no acute CHF exacerbation, BP borderline low, will DC Aldactone, patient appears euvolemic. History of opiate dependence: Patient on methadone. Dose verified will resume methadone . DVT prophylaxis: on heparin Code status: Full code
[2021-02-14 11:40] LABS: Glucose, Whole Blood 171 mg/dL (60-115)
[2021-02-14] MEDS: Insulin Lispro 100 UNIT/ML 3 ML VIAL SUBCUT (12:17)
[2021-02-14] MEDS: Doxycycline Hyclate 100 MG in 0.9 % Sodium Chloride 250 ML 166.67 MG IV (12:18)
[2021-02-14 15:39] VITALS: BP 139/59; PULSE 67; RESP 18; TEMP 36.2; O2SAT 99
[2021-02-14 16:15] LABS: Glucose, Whole Blood 91 mg/dL (60-115)
--- NOTE | 2021-02-14 16:15 | PC.NURSE ---
Pt refused for this RN to swab nostrils for MRSA. This RN notified Dr. Mccain.
[2021-02-14 20:22] LABS: Glucose, Whole Blood 100 mg/dL (60-115)
[2021-02-14 23:22] VITALS: BP 133/60; PULSE 66; RESP 16; TEMP 36.6; O2SAT 96
[2021-02-15] MEDS: Doxycycline Hyclate 100 MG in 0.9 % Sodium Chloride 250 ML 166.67 MG IV ×2 (01:27→14:00)
[2021-02-15] MEDS: 0.9 % Sodium Chloride Flush 3 ML SYRINGE IVFLUSH ×2 (01:28→08:04)
[2021-02-15 07:25] VITALS: BP 126/80; PULSE 77; RESP 19; TEMP 36.4; O2SAT 99
[2021-02-15 07:51] LABS: Glucose, Whole Blood 144 mg/dL (60-115)
--- NOTE | 2021-02-15 08:10 | P.PNGS_ITS ---
Subjective Subjective Date of Service: 02/15/21 Interval history: some left foot pain no other complaints Physical Exam Vital Signs: Vital Signs: Last Vital Signs Temp 97.5 F 02/15/21 07:25 Pulse 77 02/15/21 07:25 Resp 19 02/15/21 07:25 BP 126/80 02/15/21 07:25 Pulse Ox 99 02/15/21 07:25 Body Mass Index 25.0 Laboratory Results - last 24 hr 02/14/21 02/14/21 02/14/21 08:37 09:31 11:32 POC Glucose 88 132 H 171 H 02/14/21 02/14/21 02/15/21 16:09 20:17 07:27 POC Glucose 91 100 144 H Const: General: comfortable and no acute distress Resp: Effort & Inspection: normal respiratory effort Cardio: Rhythm: regular rhythm GI: Palpation (GI): Soft to palpation and nontender Extrem: Other: left heel with thick necrotic eschar, about 4.5x4 cm, malodorous, some scanty thick drainage Progress Note: A&P Assessment and plan (1) Pressure ulcer of left heel, stage 3: Status: Acute Assessment and Plan: has thick necrotic malodorous eschar I therefore proceeded to do sharp excisional debridement at bedside - I used fine scissors to excise thcik eschar including full thickness of the skin and part of the subcutaneous layer down to viable looking tissue I applied wet to dry dressings to debrided area and wrapped this with Kerlix roll pillow positioned under left calf - heel should not touch the bed wound care Fall Risk Details Current Medications: Current Medications Generic Name Dose Route Start Last Admin Trade Name Joshq PRN Reason Stop Dose Admin Acetaminophen 650 mg 02/12/21 23:53 02/13/21 04:13 Acetaminophen 325 Mg Tablet PO 650 mg Q6H PRN Administration Pain, Mild (Pain Scale 1-3) Albuterol Sulfate 2.5 mg 02/12/21 23:56 Albuterol Sulfate (0.083%) 2.5 Mg/3 Ml Vial.Neb INHALE Q4H PRN Shortness Of Breath Or Wheezing Albuterol Sulfate 2 puff 02/12/21 23:56 Albuterol Sulfate 90 Mcg 8 Gm Inhaler INHALE Q4H PRN Shortness Of Breath Atorvastatin Calcium 20 mg 02/13/21 21:00 02/14/21 22:07 Atorvastatin Calcium 20 Mg Tablet PO Not Given BEDTIME [facility] Carvedilol 6.25 mg 02/13/21 09:00 02/15/21 08:04 Carvedilol 6.25 Mg Tablet PO Not Given BID [facility] Protocol Ergocalciferol 1,250 mcg 02/15/21 09:00 02/15/21 08:04 Ergocalciferol (Vitamin D2) 1,250 Mcg Capsule PO Not Given Q7D [facility] Fluticasone Propionate 1 spray 02/13/21 09:00 02/15/21 08:04 Fluticasone Propionate Nasal 16 Gm [place] NOSTRIL-B Not Given DAILY [facility] Furosemide 40 mg 02/13/21 09:00 02/15/21 08:05 Furosemide 40 Mg Tablet PO Not Given DAILY [facility] Protocol Gabapentin 200 mg 02/13/21 09:00 02/15/21 08:05 Gabapentin 100 Mg Capsule PO Not Given TID [facility] Heparin Sodium (Porcine) 5,000 unit 02/12/21 00:00 02/15/21 07:59 Heparin Sodium,Porcine 5,000 Unit/Ml Vial SUBCUT Not Given Q8H [facility] Piperacillin Sod/Tazobactam 50 mls @ 100 mls/hr 02/13/21 04:00 02/15/21 03:15 Sod 3.375 gm/ Sodium Chloride IV Not Given Q6H [facility] Doxycycline Hyclate 100 mg/ 250 mls @ 166.67 mls/hr 02/14/21 12:00 02/15/21 03:00 Sodium Chloride IV Infused Q12H [facility] Infusion Insulin Glargine 12 unit 02/12/21 23:45 02/14/21 22:08 Insulin Glargine,Hum.Rec.Anlog 100 Unit/Ml 10 Ml Vial SUBCUT Not Given BEDTIME [facility] Insulin Human Lispro 0 unit 02/13/21 07:30 02/15/21 07:57 Insulin Lispro 100 Unit/Ml 3 Ml Vial SUBCUT Not Given QIDACHS [facility] Protocol Loratadine 10 mg 02/13/21 09:00 02/15/21 08:06 Loratadine 10 Mg Tablet PO Not Given DAILY [facility] Magnesium Oxide 400 mg 02/13/21 09:00 02/15/21 08:06 Magnesium Oxide 400 Mg Tablet PO Not Given DAILY [facility] Methadone HCl 50 mg 02/13/21 12:15 02/15/21 08:04 Methadone Hcl 1 Mg/0.1 Ml Oral.Conc PO 50 mg DAILY [facility] Administration Montelukast Sodium 10 mg 02/13/21 21:00 02/14/21 22:10 Montelukast Sodium 10 Mg Tablet PO Not Given BEDTIME [facility] Naloxone HCl 4 mg 02/12/21 23:56 Naloxone Hcl Nasal 4 Mg [place] NOSTRILALT Q3M PRN OVER DOSE Omeprazole 20 mg 02/13/21 13:30 02/15/21 05:07 Omeprazole 20 Mg Capsule.Dr PO Not Given DAILY@0630 [facility] Pharmacy Consult 1 each 02/12/21 18:34 Consult Rx Perform Med Rec MISCELLANE ONCE PRN Consult order Pharmacy Consult 1 each 02/14/21 11:20 Consult Rx Vancomycin Dosing MISCELLANE DAILY PRN Consult order Polyethylene Glycol 17 gm 02/13/21 09:00 02/15/21 08:06 Polyethylene Glycol 3350 17 Gm Powd.Pack PO Not Given DAILY [facility] Senna 17.2 mg 02/12/21 23:53 Sennosides 8.6 Mg Tablet PO BEDTIME PRN Constipation Senna 8.6 mg 02/12/21 23:56 Sennosides 8.6 Mg Tablet PO BEDTIME PRN Constipation Sodium Chloride 3 ml 02/13/21 00:00 02/15/21 08:04 0.9 % Sodium Chloride Flush 3 Ml Syringe IVFLUSH 3 ml QSHIFT [facility] Administration Tamsulosin HCl 0.4 mg 02/13/21 09:00 02/15/21 08:06 Tamsulosin Hcl 0.4 Mg Capsule PO Not Given DAILY [facility] Time Spent With Patient Time: Total time spent is greater than 50% in coordination of care (as documented) at patient's floor/unit and/or counseling patient: Time with patient: 15 - 24 minutes
--- NOTE | 2021-02-15 09:35 | MHC.CM.PN ---
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 PT VERIFIES PCP AND HCP, BOTH ON FILE ARE CORRECT, PT IS A POOR REPORTED AND CM UNSURE IF ALL INFORMATION IS ACCURATE. PCP: HALLIE VILLASENOR HCP: NATA LUNDY [phone]
--- NOTE | 2021-02-15 10:03 | MHC.CM.PN ---
Addendum entered by Mehnaz Alex RN 02/15/21 10:04: CM ATTEMPTED TO CONTACT HCP NATA KAMRON [phone] AT 10:01AM TO OBTAIN ADDITIONAL INFO, NO ANSWER AND MAIL BOX IS FULL AND CM UNABLE TO LEAVE MESAGE. Original Note: CM ATTEMPTED TO CONTACT HCP NATA LUNDY [phone] AT 10:01
--- NOTE | 2021-02-15 10:15 | MHC.CM.PN ---
PER [facility], PT IS ACTIVE CLIENT, MISSED TODAYS APPT DUE TO BEING INPT, NEXT APPT 02/22/21 AT 3PM, CM WILL ADD TO D/C INSTRUCTIONS.
--- NOTE | 2021-02-15 10:36 | P.PNIM_ITS ---
Subjective Subjective Date of Service: 02/15/21 Interval History: Complaining of burning sensation left foot otherwise no other acute issues overnight, patient refusing antibiotics. ROS General no headache no dizziness no fever chills. CVS no chest pain, no palpitation. Respiratory no cough, no sob. Gastrointestinal no nausea, no vomiting, no abdominal pain Physical Exam Vital Signs: Vital Signs: Last Vital Signs Temp 97.5 F 02/15/21 07:25 Pulse 77 02/15/21 07:25 Resp 19 02/15/21 07:25 BP 126/80 02/15/21 07:25 Pulse Ox 99 02/15/21 07:25 Body Mass Index 25.0 General resting comfortably , in no acute distress. Neck is supple no JVD. CVS regular rate rhythm, Respiratory lungs clear to auscultation, no respiratory distress, no wheeze, no rhonchi. Gastrointestinal abdomen soft, nontender, bowel sounds audible. Extremities rt BKA,left foot dressing in place, decreased sensation left foot Neuro nonfocal , speech clear. Dry scab at nasal bridge Objective Data Current Medications Generic Name Dose Route Start Last Admin Trade Name Freq PRN Reason Stop Dose Admin Acetaminophen 650 mg 02/12/21 23:53 02/13/21 04:13 Acetaminophen 325 Mg Tablet PO 650 mg Q6H PRN Administration Pain, Mild (Pain Scale 1-3) Albuterol Sulfate 2.5 mg 02/12/21 23:56 Albuterol Sulfate (0.083%) 2.5 Mg/3 Ml Vial.Neb INHALE Q4H PRN Shortness Of Breath Or Wheezing Albuterol Sulfate 2 puff 02/12/21 23:56 Albuterol Sulfate 90 Mcg 8 Gm Inhaler INHALE Q4H PRN Shortness Of Breath Atorvastatin Calcium 20 mg 02/13/21 21:00 02/14/21 22:07 Atorvastatin Calcium 20 Mg Tablet PO Not Given BEDTIME [facility] Carvedilol 6.25 mg 02/13/21 09:00 02/15/21 08:04 Carvedilol 6.25 Mg Tablet PO Not Given BID [facility] Protocol Ergocalciferol 1,250 mcg 02/15/21 09:00 02/15/21 08:04 Ergocalciferol (Vitamin D2) 1,250 Mcg Capsule PO Not Given Q7D [facility] Fluticasone Propionate 1 spray 02/13/21 09:00 02/15/21 08:04 Fluticasone Propionate Nasal 16 Gm [place] NOSTRIL-B Not Given DAILY [facility] Furosemide 40 mg 02/13/21 09:00 02/15/21 08:05 Furosemide 40 Mg Tablet PO Not Given DAILY [facility] Protocol Gabapentin 200 mg 02/13/21 09:00 02/15/21 08:05 Gabapentin 100 Mg Capsule PO Not Given TID [facility] Heparin Sodium (Porcine) 5,000 unit 02/12/21 00:00 02/15/21 07:59 Heparin Sodium,Porcine 5,000 Unit/Ml Vial SUBCUT Not Given Q8H [facility] Piperacillin Sod/Tazobactam 50 mls @ 100 mls/hr 02/13/21 04:00 02/15/21 10:18 Sod 3.375 gm/ Sodium Chloride IV Not Given Q6H [facility] Doxycycline Hyclate 100 mg/ 250 mls @ 166.67 mls/hr 02/14/21 12:00 02/15/21 03:00 Sodium Chloride IV Infused Q12H [facility] Infusion Insulin Glargine 12 unit 02/12/21 23:45 02/14/21 22:08 Insulin Glargine,Hum.Rec.Anlog 100 Unit/Ml 10 Ml Vial SUBCUT Not Given BEDTIME [facility] Insulin Human Lispro 0 unit 02/13/21 07:30 02/15/21 07:57 Insulin Lispro 100 Unit/Ml 3 Ml Vial SUBCUT Not Given QIDACHS [facility] Protocol Loratadine 10 mg 02/13/21 09:00 02/15/21 08:06 Loratadine 10 Mg Tablet PO Not Given DAILY [facility] Magnesium Oxide 400 mg 02/13/21 09:00 02/15/21 08:06 Magnesium Oxide 400 Mg Tablet PO Not Given DAILY [facility] Methadone HCl 50 mg 02/13/21 12:15 02/15/21 08:04 Methadone Hcl 1 Mg/0.1 Ml Oral.Conc PO 50 mg DAILY [facility] Administration Montelukast Sodium 10 mg 02/13/21 21:00 02/14/21 22:10 Montelukast Sodium 10 Mg Tablet PO Not Given BEDTIME [facility] Naloxone HCl 4 mg 02/12/21 23:56 Naloxone Hcl Nasal 4 Mg [place] NOSTRILALT Q3M PRN OVER DOSE Omeprazole 20 mg 02/13/21 13:30 02/15/21 05:07 Omeprazole 20 Mg Capsule. PO Not Given DAILY@0630 [facility] Pharmacy Consult 1 each 02/12/21 18:34 Consult Rx Perform Med Rec MISCELLANE ONCE PRN Consult order Pharmacy Consult 1 each 02/14/21 11:20 Consult Rx Vancomycin Dosing MISCELLANE DAILY PRN Consult order Polyethylene Glycol 17 gm 02/13/21 09:00 02/15/21 08:06 Polyethylene Glycol 3350 17 Gm Powd.Pack PO Not Given DAILY [facility] Senna 17.2 mg 02/12/21 23:53 Sennosides 8.6 Mg Tablet PO BEDTIME PRN Constipation Senna 8.6 mg 02/12/21 23:56 Sennosides 8.6 Mg Tablet PO BEDTIME PRN Constipation Sodium Chloride 3 ml 02/13/21 00:00 02/15/21 08:04 0.9 % Sodium Chloride Flush 3 Ml Syringe IVFLUSH 3 ml QSHIFT [facility] Administration Tamsulosin HCl 0.4 mg 02/13/21 09:00 02/15/21 08:06 Tamsulosin Hcl 0.4 Mg Capsule PO Not Given DAILY [facility] Labs CBC & Chem 7: 02/14/21 07:04 02/13/21 07:05 Microbiology Microbiology Results: Microbiology 02/12/21 21:22 Blood - Venous Blood Culture - Final Coag negative Staphylococcus 02/12/21 20:15 Blood - Venous Blood Culture - Preliminary No growth after 48 hours. Assessment and Plan (1) Gram-positive bacteremia: Status: Acute (2) Pressure ulcer of left heel, stage 3: Status: Acute (3) Osteomyelitis: Status: Acute (4) Acute on chronic anemia: Status: Acute (5) Peripheral arterial disease: Status: Acute Assessment and Plan: 50-year-old male with a past medical history diabetes, asthma/COPD, GERD, peripheral vascular disease, chronic left heel ulcer/osteomyelitis presented the with a chief complaint of moderate discharge from the heel ulcer. Admitted further management. Chronic left heel ulcer/osteomyelitis Patient sent to ER by [facility] due to malodorous discharge ,pt. afebrile, normal WBC,MRI 0n 11/27 showed osteomyelitis of calcaneus, chronically elevated crp patient seen by Dr. Purvis She recommend collagen Hydrogel dressing to left heel, patient seen by Dr. Elliott and underwent bedside I and D of left heel ulcer, blood culture 11/14 positive for coagulase negative Staph unlikely pathogen, on Zosyn day 3 and doxy day 2 will discuss antibiotic choice and duration with ID due to her chronic osteomyelitis, with no fevers and negative blood culture. Patient refuse to get MRSA surveillance test. Continue above treatment and supportive care. Acute on chronic anemia with stool occult positive in the past, no active bleeding noted, hematocrit low but stable, normal iron studies, likely anemia of chronic disease due to chronic infection Patient evaluated by Gastroenterology during last visit plan was for endoscopy if patient noted to have active GI bleed will continue PPI, continue to follow clinical course. Diabetes/peripheral neuropathy: On Lantus 12 units, diabetic diet and Insulin sliding scale, continue Neurontin blood sugar stable. COPD/asthma: No acute exacerbation Hypertension/hyperlipidemia/systolic congestive heart failure EF 15-20%: on Coreg, Lasix,and Aldactone no acute CHF exacerbation, Aldactone discontinued since was noted to have low blood pressures. History of opiate dependence: Continue methadone. DVT prophylaxis: on heparin Code status: Full code
[2021-02-15] MEDS: Piperacillin Sodium/Tazobactam 3.375 GM in 0.9 % Sodium Chloride 50 ML IV (10:46)
[2021-02-15 11:44] LABS: Glucose, Whole Blood 119 mg/dL (60-115)
[2021-02-15 15:11] VITALS: BP 118/69; PULSE 64; RESP 13; TEMP 36.2; O2SAT 100
--- NOTE | 2021-02-15 15:45 | W.PM.IDCN ---
History of Present Illness Data of Consult Service Date: 02/15/21 Requesting physician: Dinh Mccain Primary Care Provider: Ashley Pendleton MD HPI Reason for consult: chronic left foot wound He presents to hospital with ongoing left foot ulcer area heel He has known osteomyelitis and I had last seen him January 04 with similar problem He has surgical debridement and gets wound care at home Review of Systems Review of Systems: Yes all other systems are reviewed and are negative PMFSH Past Medical History Medical History Acute on chronic anemia Acute on chronic combined systolic and diastolic congestive heart failure Asthma Bipolar 1 disorder BPH (benign prostatic hyperplasia) Cholelithiasis Closed wedge compression fracture of T9 vertebra COPD (chronic obstructive pulmonary disease) Diabetes mellitus, type 2 GERD (gastroesophageal reflux disease) Hyperlipidemia Peripheral arterial disease Peripheral neuropathy Substance abuse Family History Family History Father Chronic mental illness Hypertension Asthma Stroke Mother Asthma Diabetes Coronary artery disease Surgical History Surgical History History of amputation History of laminectomy History of transurethral resection of prostate Hx of BKA Social History Social History Household Members: None Housing: Apartment Alcohol intake: current Alcohol intake frequency: does not drink Alcohol type: beer Smoking Status: Never smoker Second Hand Smoke Exposure: No Substance Use Type: Marijuana Advance Directives Date on File: 11/24/20 service: No Current occupational status: disabled Meds Allergies Allergy/AdvReac Type Severity Reaction Status Date / Time ertapenem Allergy Intermediate Hives Verified 02/13/21 00:20 vancomycin [VANCOMYCIN] Allergy Intermediate HIVES Verified 02/13/21 00:20 Chocolate Allergy Unknown Rash Verified 02/13/21 00:20 ciprofloxacin [From CIPRO] Allergy Unknown SWELLING Verified 02/13/21 00:20 hydrocortisone [Cipro HC] Allergy Unknown Unknown Verified 02/13/21 00:20 sulfamethoxazole Allergy Unknown rash Verified 02/13/21 00:20 [From BACTRIM] trimethoprim [From BACTRIM] Allergy Unknown rash Verified 02/13/21 00:20 turkey [TURKEY] Allergy Unknown RASH Verified 02/13/21 00:20 Active Medications: Current Medications Generic Name Dose Route Start Last Admin Trade Name Freq PRN Reason Stop Dose Admin Acetaminophen 650 mg 02/12/21 23:53 02/13/21 04:13 Acetaminophen 325 Mg Tablet PO 650 mg Q6H PRN Administration Pain, Mild (Pain Scale 1-3) Albuterol Sulfate 2.5 mg 02/12/21 23:56 Albuterol Sulfate (0.083%) 2.5 Mg/3 Ml Vial.Neb INHALE Q4H PRN Shortness Of Breath Or Wheezing Albuterol Sulfate 2 puff 02/12/21 23:56 Albuterol Sulfate 90 Mcg 8 Gm Inhaler INHALE Q4H PRN Shortness Of Breath Atorvastatin Calcium 20 mg 02/13/21 21:00 02/14/21 22:07 Atorvastatin Calcium 20 Mg Tablet PO Not Given BEDTIME [facility] Carvedilol 6.25 mg 02/13/21 09:00 02/15/21 08:04 Carvedilol 6.25 Mg Tablet PO Not Given BID [facility] Protocol Ergocalciferol 1,250 mcg 02/15/21 09:00 02/15/21 08:04 Ergocalciferol (Vitamin D2) 1,250 Mcg Capsule PO Not Given Q7D [facility] Fluticasone Propionate 1 spray 02/13/21 09:00 02/15/21 08:04 Fluticasone Propionate Nasal 16 Gm [place] NOSTRIL-B Not Given DAILY [facility] Furosemide 40 mg 02/13/21 09:00 02/15/21 08:05 Furosemide 40 Mg Tablet PO Not Given DAILY [facility] Protocol Gabapentin 200 mg 02/13/21 09:00 02/15/21 14:04 Gabapentin 100 Mg Capsule PO Not Given TID [facility] Heparin Sodium (Porcine) 5,000 unit 02/12/21 00:00 02/15/21 14:47 Heparin Sodium,Porcine 5,000 Unit/Ml Vial SUBCUT Not Given Q8H [facility] Piperacillin Sod/Tazobactam 50 mls @ 100 mls/hr 02/13/21 04:00 02/15/21 11:22 Sod 3.375 gm/ Sodium Chloride IV Infused Q6H [facility] Infusion Doxycycline Hyclate 100 mg/ 250 mls @ 166.67 mls/hr 02/14/21 12:00 02/15/21 14:00 Sodium Chloride IV 166.67 mls/hr Q12H [facility] Administration Insulin Glargine 12 unit 02/12/21 23:45 02/14/21 22:08 Insulin Glargine,Hum.Rec.Anlog 100 Unit/Ml 10 Ml Vial SUBCUT Not Given BEDTIME [facility] Insulin Human Lispro 0 unit 02/13/21 07:30 02/15/21 11:51 Insulin Lispro 100 Unit/Ml 3 Ml Vial SUBCUT Not Given QIDACHS [facility] Protocol Loratadine 10 mg 02/13/21 09:00 02/15/21 08:06 Loratadine 10 Mg Tablet PO Not Given DAILY [facility] Magnesium Oxide 400 mg 02/13/21 09:00 02/15/21 08:06 Magnesium Oxide 400 Mg Tablet PO Not Given DAILY [facility] Methadone HCl 50 mg 02/13/21 12:15 02/15/21 08:04 Methadone Hcl 1 Mg/0.1 Ml Oral.Conc PO 50 mg DAILY [facility] Administration Montelukast Sodium 10 mg 02/13/21 21:00 02/14/21 22:10 Montelukast Sodium 10 Mg Tablet PO Not Given BEDTIME [facility] Naloxone HCl 4 mg 02/12/21 23:56 Naloxone Hcl Nasal 4 Mg [place] NOSTRILALT Q3M PRN OVER DOSE Omeprazole 20 mg 02/13/21 13:30 02/15/21 05:07 Omeprazole 20 Mg Capsule.Dr PO Not Given DAILY@0630 [facility] Pharmacy Consult 1 each 02/12/21 18:34 Consult Rx Perform Med Rec MISCELLANE ONCE PRN Consult order Pharmacy Consult 1 each 02/14/21 11:20 Consult Rx Vancomycin Dosing MISCELLANE DAILY PRN Consult order Polyethylene Glycol 17 gm 02/13/21 09:00 02/15/21 08:06 Polyethylene Glycol 3350 17 Gm Powd.Pack PO Not Given DAILY [facility] Senna 17.2 mg 02/12/21 23:53 Sennosides 8.6 Mg Tablet PO BEDTIME PRN Constipation Senna 8.6 mg 02/12/21 23:56 Sennosides 8.6 Mg Tablet PO BEDTIME PRN Constipation Sodium Chloride 3 ml 02/13/21 00:00 02/15/21 14:04 0.9 % Sodium Chloride Flush 3 Ml Syringe IVFLUSH Not Given QSHIFT [facility] Tamsulosin HCl 0.4 mg 02/13/21 09:00 02/15/21 08:06 Tamsulosin Hcl 0.4 Mg Capsule PO Not Given DAILY [facility] Home Medications Medication Instructions Recorded Confirmed Last Taken Type FreeStyle Lite Strips 08/12/20 02/13/21 Unknown History albuterol sulfate 2 puff INHALATION Q4H PRN 08/12/20 02/13/21 Unknown History albuterol sulfate 2.5 mg INHALATION Q4H PRN 08/12/20 02/13/21 Unknown History blood-glucose meter [FreeStyle 08/12/20 02/13/21 Unknown History [place] Lite] cane 08/12/20 02/13/21 Unknown History lancets 08/12/20 02/13/21 Unknown History magnesium oxide [MagOx] 400 mg PO DAILY 08/12/20 02/13/21 Unknown History methadone 50 mg PO QAM 08/12/20 02/13/21 01/02/21 History pen needle, diabetic 08/12/20 02/13/21 Unknown History Eucerin 1 applic TOPICAL DAILY PRN 08/14/20 02/13/21 Unknown History Lantus U-100 Insulin 12 unit SUBCUT QPM 08/14/20 02/13/21 Unknown History aspirin 81 mg PO DAILY 08/14/20 02/13/21 Unknown History atorvastatin 20 mg PO BEDTIME 08/14/20 02/13/21 Unknown History carvedilol 6.25 mg PO BID 08/14/20 02/13/21 Unknown History cetirizine 10 mg PO DAILY 08/14/20 02/13/21 Unknown History clotrimazole 1 applic TOPICAL TID 08/14/20 02/13/21 Unknown History ergocalciferol (vitamin D2) 1,250 mcg PO QWEEK 08/14/20 02/13/21 Unknown History fluticasone propionate [Flonase 1 spray INTRANASAL DAILY 08/14/20 02/13/21 Unknown History Allergy Relief] gabapentin 200 mg PO TID 08/14/20 02/13/21 Unknown History montelukast 10 mg PO BEDTIME 08/14/20 02/13/21 Unknown History polyethylene glycol 3350 [Miralax] 17 g PO DAILY 08/14/20 02/13/21 Unknown History sennosides [senna] 8.6 mg PO BEDTIME PRN 08/14/20 02/13/21 Unknown History spironolactone 12.5 mg PO DAILY 08/14/20 02/13/21 Unknown History tamsulosin 0.4 mg PO DAILY 08/14/20 02/13/21 Unknown History zinc sulfate 220 mg PO DAILY 08/14/20 02/13/21 Unknown History Narcan 4 mg INTRANASAL Q3M PRN 11/24/20 02/13/21 Unknown History Physical Exam Vital Signs: Vital Signs: Last Vital Signs Temp 97.1 F 02/15/21 15:11 Pulse 64 02/15/21 15:11 Resp 13 02/15/21 15:11 BP 118/69 02/15/21 15:11 Pulse Ox 100 02/15/21 15:11 Body Mass Index 25.0 Const: General: cooperative HENMT: Head: Yes normal to inspection Mouth: Normal oral and palatal mucosa present Resp: Effort & Inspection: normal respiratory effort Cardio: Rate: regular rate Rhythm: regular rhythm GI: Palpation (GI): Soft to palpation and nontender Skin: General skin exam: no rashes or lesions noted Extrem: Other: chronic left heel ulcer,darkened eschar ,no cellulitis Results Labs CBC & Chem 7: 02/14/21 07:04 02/13/21 07:05 Microbiology Microbiology Results: Microbiology 02/12/21 21:22 Blood - Venous Blood Culture - Final Coag negative Staphylococcus 02/12/21 20:15 Blood - Venous Blood Culture - Preliminary No growth after 48 hours. Assessment and Plan (1) Gram-positive bacteremia: Problem details: May be contaminant Status: Acute Await final culture (2) Pressure ulcer of left heel, stage 3: Status: Acute (3) Osteomyelitis: Qualifiers: Laterality: left Osteomyelitis location: foot Osteomyelitis type: unspecified type Qualified Code(s): M86.9 - Osteomyelitis, unspecified Problem details: chronic pressure ulcer left AMA last stay in December Status: Acute He is not septic and has chronic wound He gets chronic wound care Antibiotics can change to po Doxycycline 2-4 weeks on discharge depending on healing and if blood culture staph,nonaureus Surgical debridement prn need He would likely not benefit from PICC line at this point with adherence challenges,see how healing outpatient
[2021-02-15 16:17] LABS: Glucose, Whole Blood 124 mg/dL (60-115)
[2021-02-15 19:01] VITALS: BP 124/64; PULSE 57; RESP 14; TEMP 36.2; O2SAT 100
[2021-02-15 20:58] LABS: Glucose, Whole Blood 115 mg/dL (60-115)
[2021-02-15 23:09] VITALS: BP 134/82; PULSE 94; RESP 20; TEMP 37.3; O2SAT 96
--- NOTE | 2021-02-16 04:31 | PC.NURSE ---
pt continues to refuse all care and medications
[2021-02-16 07:36] LABS: Glucose, Whole Blood 77 mg/dL (60-115)
[2021-02-16 07:51] VITALS: BP 116/61; PULSE 63; RESP 17; TEMP 36; O2SAT 99
[2021-02-16] MEDS: Piperacillin Sodium/Tazobactam 3.375 GM in 0.9 % Sodium Chloride 50 ML IV (08:42)
[2021-02-16] MEDS: 0.9 % Sodium Chloride Flush 3 ML SYRINGE IVFLUSH (08:43)
--- NOTE | 2021-02-16 10:19 | PC.NURSE ---
Patient resistive to care at times. Refusing all PO daily medications. This RN attempted to apply dressing to L TLC but refusing a dressing at this time. Denies any pain, refusing to be OOB to chair at this time. Patient encouraged to self reposition in bed. Dressing to left heel d and I.
[2021-02-16 11:33] LABS: Glucose, Whole Blood 113 mg/dL (60-115)
--- NOTE | 2021-02-16 14:10 | P.PNGS_ITS ---
Subjective Subjective Date of Service: 02/16/21 Interval history: Denies new complaints Says he is being discharged today Physical Exam Vital Signs: Vital Signs: Last Vital Signs Temp 96.8 F 02/16/21 07:51 Pulse 63 02/16/21 07:51 Resp 17 02/16/21 07:51 BP 116/61 02/16/21 07:51 Pulse Ox 99 02/16/21 07:51 Body Mass Index 25.0 Const: Other: On wheelchair General: comfortable and no acute distress Resp: Effort & Inspection: normal respiratory effort GI: Palpation (GI): Soft to palpation Extrem: Other: Left heel ulcer - much photo mask cleaner after debridement yesterday, some fibrinous exudates, no cellulitis no pus Progress Note: A&P Assessment and plan (1) Pressure ulcer of left heel, stage 3: Status: Acute Assessment and Plan: Sharp excisional debridement of left heel ulcer on yesterday because of thick eschar Looks much better today Dressings changed - wet to dry applied and foot wrapped in Kerlix Instructed patient to keep this he heel l off of the bed Wound care I can see him in the office for follow-up visit Fall Risk Details Current Medications: Current Medications Generic Name Dose Route Start Last Admin Trade Name Freq PRN Reason Stop Dose Admin Acetaminophen 650 mg 02/12/21 23:53 02/13/21 04:13 Acetaminophen 325 Mg Tablet PO 650 mg Q6H PRN Administration Pain, Mild (Pain Scale 1-3) Albuterol Sulfate 2.5 mg 02/12/21 23:56 Albuterol Sulfate (0.083%) 2.5 Mg/3 Ml Vial.Neb INHALE Q4H PRN Shortness Of Breath Or Wheezing Albuterol Sulfate 2 puff 02/12/21 23:56 Albuterol Sulfate 90 Mcg 8 Gm Inhaler INHALE Q4H PRN Shortness Of Breath Atorvastatin Calcium 20 mg 02/13/21 21:00 02/15/21 21:23 Atorvastatin Calcium 20 Mg Tablet PO Not Given BEDTIME VENTURA Carvedilol 6.25 mg 02/13/21 09:00 02/16/21 08:46 Carvedilol 6.25 Mg Tablet PO Not Given BID VENTURA Protocol Ergocalciferol 1,250 mcg 02/15/21 09:00 02/15/21 08:04 Ergocalciferol (Vitamin D2) 1,250 Mcg Capsule PO Not Given Q7D [facility] Fluticasone Propionate 1 spray 02/13/21 09:00 02/16/21 08:47 Fluticasone Propionate Nasal 16 Gm [place] NOSTRIL-B Not Given DAILY [facility] Furosemide 40 mg 02/13/21 09:00 02/16/21 08:47 Furosemide 40 Mg Tablet PO Not Given DAILY [facility] Protocol Gabapentin 200 mg 02/13/21 09:00 02/16/21 08:47 Gabapentin 100 Mg Capsule PO Not Given TID [facility] Heparin Sodium (Porcine) 5,000 unit 02/12/21 00:00 02/16/21 08:46 Heparin Sodium,Porcine 5,000 Unit/Ml Vial SUBCUT Not Given Q8H [facility] Piperacillin Sod/Tazobactam 50 mls @ 100 mls/hr 02/13/21 04:00 02/16/21 09:19 Sod 3.375 gm/ Sodium Chloride IV Infused Q6H [facility] Infusion Doxycycline Hyclate 100 mg/ 250 mls @ 166.67 mls/hr 02/14/21 12:00 02/16/21 00:14 Sodium Chloride IV Not Given Q12H [facility] Insulin Glargine 12 unit 02/12/21 23:45 02/15/21 21:24 Insulin Glargine,Hum.Rec.Anlog 100 Unit/Ml 10 Ml Vial SUBCUT Not Given BEDTIME [facility] Insulin Human Lispro 0 unit 02/13/21 07:30 02/16/21 11:43 Insulin Lispro 100 Unit/Ml 3 Ml Vial SUBCUT Not Given QIDACHS [facility] Protocol Loratadine 10 mg 02/13/21 09:00 02/16/21 08:47 Loratadine 10 Mg Tablet PO Not Given DAILY [facility] Magnesium Oxide 400 mg 02/13/21 09:00 02/16/21 08:47 Magnesium Oxide 400 Mg Tablet PO Not Given DAILY [facility] Methadone HCl 50 mg 02/13/21 12:15 02/16/21 08:42 Methadone Hcl 1 Mg/0.1 Ml Oral.Conc PO 50 mg DAILY [facility] Administration Montelukast Sodium 10 mg 02/13/21 21:00 02/15/21 21:25 Montelukast Sodium 10 Mg Tablet PO Not Given BEDTIME [facility] Naloxone HCl 4 mg 02/12/21 23:56 Naloxone Hcl Nasal 4 Mg [place] NOSTRILALT Q3M PRN OVER DOSE Omeprazole 20 mg 02/13/21 13:30 02/16/21 05:21 Omeprazole 20 Mg Capsule. PO Not Given DAILY@0630 [facility] Ondansetron HCl 4 mg 02/15/21 21:33 Ondansetron Hcl 4 Mg/2 Ml Vial IVPUSH Q8H PRN Nausea and Vomiting Pharmacy Consult 1 each 02/12/21 18:34 Consult Rx Perform Med Rec MISCELLANE ONCE PRN Consult order Pharmacy Consult 1 each 02/14/21 11:20 Consult Rx Vancomycin Dosing MISCELLANE DAILY PRN Consult order Polyethylene Glycol 17 gm 02/13/21 09:00 02/16/21 08:47 Polyethylene Glycol 3350 17 Gm Powd.Pack PO Not Given DAILY [facility] Senna 17.2 mg 02/12/21 23:53 Sennosides 8.6 Mg Tablet PO BEDTIME PRN Constipation Senna 8.6 mg 02/12/21 23:56 Sennosides 8.6 Mg Tablet PO BEDTIME PRN Constipation Sodium Chloride 3 ml 02/13/21 00:00 02/16/21 08:43 0.9 % Sodium Chloride Flush 3 Ml Syringe IVFLUSH 3 ml QSHIFT [facility] Administration Tamsulosin HCl 0.4 mg 02/13/21 09:00 02/16/21 08:47 Tamsulosin Hcl 0.4 Mg Capsule PO Not Given DAILY [facility] Time Spent With Patient Time: Total time spent is greater than 50% in coordination of care (as documented) at patient's floor/unit and/or counseling patient: Time with patient: 15 - 24 minutes
--- NOTE | 2021-02-16 14:29 | PC.NURSE ---
Patient leaving AMA. Pantry Attendant at bedside, alert and oriented x 3. With promotion manager explained to patient risks of leaving against medical advice including severe infection, amputation, and . Patient verbally states he understood. AMA paper signed. notified of patient leaving AMA. TLC removed from left jugular. Pressure dressing applied. Dressing C/D/I upon patient leaving. catheter tip intact from TLC. Patient brought down to front lobby in wheelchair by [facility] staff member.
--- NOTE | 2021-02-16 16:12 | P.EN_ITS ---
Event Note Date of Service: 02/16/21 Event Note: Patient left against medical advice. Discharge diagnosis: Patient was being treated for left heel ulcer/osteomyelitis: Patient was on IV antibiotics and also got I&D by surgery: Patient seen in the morning rounds afterwards Patient decided to leave against the medical advise- did not wait to get paperwork, will send the p.o. antibiotic as recommended by ID to his pharmacy. Risks of leaving against medical advise-patient is aware and still left. He also has previous history of leaving against medical advice too. Anemia hoang: Patient will hold aspirin for now until seen by PCP, monitor CBC with PCP, outpatient GI. Added omeprazole. cc : jaci degroot MD.
--- NOTE | 2021-02-17 18:00 | P.DS_ITS ---
DS: Providers Provider Date of Service: 02/16/21 Date of admission: 02/12/21 23:53 Primary care physician: Ashley Pendleton MD Consults: 02/12/21 23:53 Consult to General Surgery Routine Consulting Provider: Cami Purvis Reason for consultation: DM foot ulcer/Necrosis Consult to Infectious Diseases Routine Consulting Provider: Zully Roblero Reason for consultation: Cellulitis/Osteomyelitis/DM foot ulcer DS: Diagnosis Discharge Diagnosis (1) Pressure ulcer of left heel, stage 3: Status: Acute DS: Medications Discharge Medications Home Medications: Home Medications Medication Instructions Recorded Confirmed FreeStyle Lite Strips 08/12/20 02/13/21 albuterol sulfate 2 puff INHALATION Q4H PRN 08/12/20 02/13/21 albuterol sulfate 2.5 mg INHALATION Q4H PRN 08/12/20 02/13/21 blood-glucose meter [FreeStyle 08/12/20 02/13/21 [place] Lite] cane 08/12/20 02/13/21 lancets 08/12/20 02/13/21 magnesium oxide [MagOx] 400 mg PO DAILY 08/12/20 02/13/21 methadone 50 mg PO QAM 08/12/20 02/13/21 pen needle, diabetic 08/12/20 02/13/21 Eucerin 1 applic TOPICAL DAILY PRN 08/14/20 02/13/21 Lantus U-100 Insulin 12 unit SUBCUT QPM 08/14/20 02/13/21 aspirin 81 mg PO DAILY 08/14/20 02/13/21 atorvastatin 20 mg PO BEDTIME 08/14/20 02/13/21 carvedilol 6.25 mg PO BID 08/14/20 02/13/21 cetirizine 10 mg PO DAILY 08/14/20 02/13/21 clotrimazole 1 applic TOPICAL TID 08/14/20 02/13/21 ergocalciferol (vitamin D2) 1,250 mcg PO QWEEK 08/14/20 02/13/21 fluticasone propionate [Flonase 1 spray INTRANASAL DAILY 08/14/20 02/13/21 Allergy Relief] gabapentin 200 mg PO TID 08/14/20 02/13/21 montelukast 10 mg PO BEDTIME 08/14/20 02/13/21 polyethylene glycol 3350 [Miralax] 17 g PO DAILY 08/14/20 02/13/21 sennosides [senna] 8.6 mg PO BEDTIME PRN 08/14/20 02/13/21 spironolactone 12.5 mg PO DAILY 08/14/20 02/13/21 tamsulosin 0.4 mg PO DAILY 08/14/20 02/13/21 zinc sulfate 220 mg PO DAILY 08/14/20 02/13/21 Narcan 4 mg INTRANASAL Q3M PRN 11/24/20 02/13/21 Previous Rx's Medication Instructions Recorded furosemide 40 mg PO DAILY #30 tab 12/02/20 doxycycline hyclate 100 mg PO DAILY #58 cap 02/16/21 omeprazole 20 mg PO BID #60 cap 02/16/21 DS: Summary Hospital Course Hospital Course: 50-year-old male with a past history hypertension hyperlipidemia, peripheral vascular disease asthma/COPD CAD opiate abuse, history right BKA; recent admission to the hospital for NSTEMI/GI bleed/ DM foot ulcer/osteomyelitis presented to the hospital today with a chief complaint orders discharge the left ulcer. Reports he has a visiting nurses today will noticed increased discharge subsequently sent him for further evaluation. Denies any fever chills cough. Denies any recent travel sick contacts. Denies any GI or symptoms. Review of all other systems is negative except mentioned above ER course: ER team patient presented about 3 days ago with similar complaints and left against medical advice. Patient MRI of the foot the last admission which showed osteomyelitis-was seen by General surgery the time and deemed pt did not require any debridement. Today and noted to ulcer necrotic patch on top-reportedly been chronic noted on prior admission as well. Patient was given IV antibiotics. Hospital Course problem hoang: Patient left against medical advice-brief hospital course as below: Chronic left heel ulcer/osteomyelitis Patient sent to ER by [facility] due to malodorous discharge ,pt. afebrile, normal WBC,MRI 0n 11/27 showed osteomyelitis of calcaneus, elevated esr , crp . seen by surgery: She recommend collagen Hydrogel dressing to left heel, patient seen by Dr. Elliott and underwent bedside I and D of left heel ulcer, blood culture 12 positive for coagulase negative Staph unlikely pathogen. patient was on Zosyn and doxy , negative blood culture. Patient seen in the morning rounds afterwards Patient decided to leave against the medical advise-did not wait to get paperwork, will send the p.o. antibiotic as recommended by ID to his pharmacy. Risks of leaving against medical advise-patient is aware and still left. He also has previous history of leaving against medical advice too. Acute on chronic anemia with stool occult positive in the past, no active bleeding noted, hematocrit low but stable, normal iron studies, likely anemia of chronic disease due to chronic infection Patient evaluated by Gastroenterology during last visit plan was for endoscopy if patient noted to have active GI bleed will continue PPI, continue to follow clinical course.Patient will hold aspirin for now until seen by PCP, monitor CBC with PCP, outpatient GI. Added omeprazole. Above management discussed with the patient in detail with [employer] real estate economist length he understand and in agreement with the above plan, time spent 50 minutes and 50% time spent on counseling. Significant findings: As above. Procedures performed: None. Treatment and response: As above. Complications: None. Time Spent with Patient Time attestation: Total time spent providing and/or coordinating discharge services: Discharge coordination time: Greater than 30 minutes Physical Exam Vital Signs: Vital Signs: Last Vital Signs Temp 96.8 F 02/16/21 07:51 Pulse 63 02/16/21 07:51 Resp 17 02/16/21 07:51 BP 116/61 02/16/21 07:51 Pulse Ox 99 02/16/21 07:51 Body Mass Index 25.0 DS: Data Data Completed and Pending Completed studies during hospitalization [Text1]: Procedures Dilation of Left Anterior Tibial Artery using Drug-Coated Balloon, Percutaneous Approach (11/24/20) Dilation of Left Peroneal Artery using Drug-Coated Balloon, Percutaneous Graham marshall (11/24/20) Dilation of Left Popliteal Artery using Drug-Coated Balloon, Percutaneous Approach (11/24/20) Drainage of Chest Wall, Percutaneous Approach, Diagnostic (11/24/20) Drainage of Right Pleural Cavity, Percutaneous Approach (08/31/20) Excision of Left Foot Subcutaneous Tissue and Fascia, Open Approach (02/12/21) Insertion of Infusion Device into Superior Vena Cava, Percutaneous Approach (02/12/21) Transfusion of Nonautologous Red Blood Cells into Peripheral Vein, Percutaneous Approach (01/02/21) Ultrasonography of Superior Vena Cava, Guidance (02/12/21) Labs on day of discharge: Preliminary micro results at discharge 02/12/21 20:15 Blood Culture - Preliminary Blood - Venous No growth after 48 hours. Discharge Plan Discharge Patient Disposition: Left Against Medical Advice Referrals: [facility] [Other] [facility] [Outside] Wound Care [facility] [Outside] (NEXT APPT FEBRUARY 22, 2021. ) Ashley Pendleton MD [Primary Care Provider] - Discharge Medications: New doxycycline hyclate 100 mg capsule 100 mg PO DAILY Qty: 58 RF: 0 omeprazole 20 mg capsule,delayed release(DR/EC) 20 mg PO BID Qty: 60 RF: 0 Continued albuterol sulfate 2.5 mg /3 mL (0.083 %) Solution For Nebulization 2.5 mg inhalation Q4H PRN (Reason: Shortness Of Breath Or Wheezing) RF: 0 (DME) lancets Misc MISCELLANEOUS RF: 0 (DME) blood-glucose meter [FreeStyle [place] Lite] Kit MISCELLANEOUS RF: 0 (DME) cane Device MISCELLANEOUS RF: 0 (DME) FreeStyle Lite Strips RF: 0 magnesium oxide [MagOx] 400 mg (241.3 mg magnesium) Tablet 400 mg PO DAILY RF: 0 (DME) pen needle, diabetic Needle MISCELLANEOUS RF: 0 methadone 10 mg/mL Concentrate 50 mg PO QAM RF: 0 albuterol sulfate 90 mcg/actuation Hfa Aerosol Inhaler 2 puff INHALATION Q4H PRN (Reason: Shortness Of Breath) RF: 0 zinc sulfate 110 mg (25 mg zinc) Tablet 220 mg PO DAILY RF: 0 sennosides [senna] 8.6 mg Tablet 8.6 mg PO BEDTIME PRN (Reason: Constipation) RF: 0 Lantus U-100 Insulin 100 unit/mL Solution 12 unit SUBCUT QPM RF: 0 cetirizine 10 mg Tablet 10 mg PO DAILY RF: 0 polyethylene glycol 3350 [Miralax] 17 gram/dose Powder 17 g PO DAILY RF: 0 carvedilol 6.25 mg Tablet 6.25 mg PO BID RF: 0 atorvastatin 20 mg Tablet 20 mg PO BEDTIME RF: 0 tamsulosin 0.4 mg Capsule 0.4 mg PO DAILY RF: 0 montelukast 10 mg Tablet 10 mg PO BEDTIME RF: 0 gabapentin 100 mg Capsule 200 mg PO TID RF: 0 ergocalciferol (vitamin D2) 1,250 mcg (50,000 unit) Capsule 1,250 mcg PO QWEEK RF: 0 fluticasone propionate [Flonase Allergy Relief] 50 mcg/actuation [place],Suspension 1 spray INTRANASAL DAILY RF: 0 clotrimazole 1 % Cream 1 applic TOPICAL TID RF: 0 Eucerin Cream 1 applic TOPICAL DAILY PRN (Reason: Dry Skin) RF: 0 Narcan 4 mg/actuation [place],Non-Aerosol 4 mg INTRANASAL Q3M PRN (Reason: OVER DOSE) RF: 0 furosemide 40 mg Tablet 40 mg PO DAILY Qty: 30 RF: 0 Held spironolactone 25 mg Tablet 12.5 mg PO DAILY RF: 0 Hold Instructions: Resume on 02/22/21. hold until blood pressures improves . aspirin 81 mg Tablet,Delayed Release (Dr/Ec) 81 mg PO DAILY RF: 0 Hold Instructions: Resume on 02/22/21. hold until seen by pcp. Discharge Orders: Discharge Order (Routine); Ordered 02/17/21 Ordered By: Macy Foy Care Plan Goals: Patient was being treated for left heel ulcer/osteomyelitis: Patient was on IV antibiotics and also got I&D by surgery: Patient seen in the morning rounds afterwards Patient decided to leave against the medical advise- did not wait to get paperwork, will send the p.o. antibiotic as recommended by ID to his pharmacy. Risks of leaving against medical advise-patient is aware and still left. He also has previous history of leaving against medical advice too. Anemia hoang: Patient will hold aspirin for now until seen by PCP, monitor CBC with PCP, outpatient GI. Added omeprazole. Health Concerns: As above. Plan of Treatment: As above. Assessment: as above. Discharge Date/Time: 02/16/21 14:38
== END 2021-02-16 14:38 | disposition left against medical advice (07) | DRG 344 ==
LOC: HO.ED 22:08 → HO.EDOVER 02-13 00:34 → HO.S3 02-14 06:53
PROVIDERS: Hospitalist; Physician Assistant; Admitting Provider Hospitalist; Emergency Provider Emergency Medicine; PCP Family Medicine; Visit Provider Internal Medicine
DX: E11.69 Type 2 diabetes mellitus with other specified complication (principal); M86.9 Osteomyelitis, unspecified; E11.42 Type 2 diabetes mellitus with diabetic polyneuropathy; L89.623 Pressure ulcer of left heel, stage 3; E11.628 Type 2 diabetes mellitus with other skin complications; F11.20 Opioid dependence, uncomplicated; I11.0 Hypertensive heart disease with heart failure; I50.22 Chronic systolic (congestive) heart failure; K21.9 Gastro-esophageal reflux disease without esophagitis; Z89.511 Acquired absence of right leg below knee; J44.9 Chronic obstructive pulmonary disease, unspecified; I25.10 Atherosclerotic heart disease of native coronary artery without angina pectoris; D63.8 Anemia in other chronic diseases classified elsewhere; Z20.822 Contact with and (suspected) exposure to COVID-19; Z88.2 Allergy status to sulfonamides; E78.5 Hyperlipidemia, unspecified; Z79.4 Long term (current) use of insulin; Z79.52 Long term (current) use of systemic steroids; Z79.82 Long term (current) use of aspirin; Z79.899 Other long term (current) drug therapy
CPT/HCPCS: 36415; 70450; 71045; 71101; 73630; 80048; 82728; 82947; 83540; 83605; 85025; 85652; 86140; 87040; 87205; 87635; 96365; 96368; 96372; 99285; J2543

== ENCOUNTER 2021-07-20 00:55 | Emergency (ER) | payer MEDICAID, SELFPAY ==
--- NOTE | ~2021-07-20 | XR_ITS ---
EXAMINATION: XR CHEST CLINICAL INFORMATION: Short of breath COMPARISON: Chest radiograph 02/13/2021. CT angiography chest 10/10/2020. TECHNIQUE: Frontal view of the chest was obtained. FINDINGS: Multiple external artifacts overlie the thorax. Cardiac silhouette is at the upper limits of normal size. Mild blunting of the right costophrenic sulcus is noted. Thickening of the minor fissure is visualized along with diffuse fine pulmonary reticular opacities and diffuse vascular indistinctness. No focal pulmonary consolidation. No pneumothoraces. XR/XR chest 1V IMPRESSION: Findings suspicious for mild-moderate interstitial pulmonary edema.
[2021-07-20 01:01] VITALS: BP 149/84; PULSE 84; RESP 16; TEMP 36.8; O2SAT 96; BMI 24.2
--- NOTE | 2021-07-20 01:31 | PC.NURSE ---
Covid swab obtained and sent. Pt aware of plan for XRay. Pt requesting to transfer from hospital stretcher into bedside chair. Awaiting primary MD beltran.
[2021-07-20 01:43] LABS: COVID-19 Test Negative (Negative); IDNOW Serial# 9DD0AD1C
--- NOTE | 2021-07-20 01:56 | ECG_ITS ---
Test Reason : SOB Blood Pressure : / mmHG Vent. Rate : 090 BPM Atrial Rate : 090 BPM P-R Int : 198 ms QRS Dur : 110 ms QT Int : 394 ms P-R-T Axes : 050 -21 115 degrees QTc Int : 481 ms Normal sinus rhythm ST & T wave abnormality, consider lateral ischemia Prolonged QT Abnormal ECG When compared with ECG of 03-JAN-2021 15:21, Nonspecific T wave abnormality no longer evident in Inferior leads T wave inversion no longer evident in Anterior leads T wave inversion more evident in Lateral leads Referred By: Generic ED Physician Electronically Signed By:SUSANNE ROSA
--- NOTE | 2021-07-20 02:07 | PC.NURSE ---
IV established, labs obtained and sent. Awaiting primary MD kevinal.
[2021-07-20 02:09] LABS: Basophils Percent Auto 0.5 % (0-2); Eosinophils Absolute Auto 0.3 X10*3/uL (0.0-0.4); Eosinophils Percent Auto 3.5 % (0-4); Hematocrit 34.1 % (42-52); Hemoglobin 10.8 g/dl (14.0-18.0); Imm Gran Abs Auto 0.03 X10*3/uL (0.00-0.03); Imm Gran Pct Auto 0.3 % (0.0-0.4); Lymphocytes Absolute Auto 1.2 X10*3/uL (1.2-4.9); Lymphocytes Percent Auto 13.5 % (20-40); Mean Corpuscular HGB Conc 31.7 g/dl (31.0-36.0); Mean Corpuscular Hemoglobin 26.7 pg (27.0-33.0); Mean Corpuscular Volume 84.2 fL (80-98); Mean Platelet Volume 9.2 fL (9.4-12.4); Monocytes Absolute Auto 0.9 X10*3/uL (0.1-1.2); Monocytes Percent Auto 10.7 % (2-11); Neutrophils Absolute Auto 6.3 X10*3/uL (2.0-8.3); Neutrophils Percent Auto 71.5 % (45-73); Platelet Count 246 X10*3/uL (160-400); Red Blood Count 4.05 X10*6/uL (4.60-5.80); Red Cell Distribution Width 14.6 % (11.0-16.0); White Blood Count 8.8 X10*3/uL (4.8-10.8)
[2021-07-20 02:10] LABS: MANUAL DIFF FLAG NO
--- NOTE | 2021-07-20 02:11 | PC.NURSE ---
information technology officer at bedside for EKG.
[2021-07-20 02:29] LABS: Troponin-I High Sensitivity 11.6 ng/L (<3.5-35.0)
--- NOTE | 2021-07-20 02:42 | PC.NURSE ---
Labs redrawn x 2. Pt remains awaiting primary ED eval.
[2021-07-20 02:53] LABS: B Type Natriuretic Peptide 821 pg/mL (<100)
[2021-07-20 03:09] LABS: Anion Gap 13 (12-20); Blood Urea Nitrogen 16 mg/dL (9-16); Calcium 9.8 mg/dL (8.4-10.2); Carbon Dioxide 25 mmol/L (22-29); Chloride 103 mmol/L (96-108); Creatinine Clr Calc Pharmacy 86.6; Estimated Glomerular Filt Rate > 60; Glucose Random 126 mg/dL (60-115); Potassium 4.4 mmol/L (3.3-5.1); Sodium 137 mmol/L (135-145)
--- NOTE | 2021-07-20 03:48 | PC.NURSE ---
at bedside for primary eval.
--- NOTE | 2021-07-20 03:56 | ED.GENADULT ---
HPI - General Adult General Chief complaint: Dyspnea Stated complaint: sob rib pain Time Seen by Provider: 07/20/21 03:45 Source: patient and EMS Mode of arrival: EMS Limitations: no limitations History of Present Illness HPI narrative: Patient comes to emergency room complaining of 4 days of bilateral rib pain. Patient states that sometimes he feels twitching between his ribs on the right side, occasionally on the left side. Patient also states that he has been having asthma exacerbation over the last few days. Patient denies chest pain, no abdominal pain. Patient denies any recent illnesses. Related Data Home Medications Medication Instructions Recorded Confirmed FreeStyle Lite Strips 08/12/20 02/13/21 albuterol sulfate 2.5 mg INHALATION Q4H PRN 08/12/20 02/13/21 albuterol sulfate 90 mcg/actuation 2 puff INHALATION Q4H PRN 08/12/20 02/13/21 aerosol inhaler blood-glucose meter (FreeStyle 08/12/20 02/13/21 [place] Lite) cane 08/12/20 02/13/21 lancets 08/12/20 02/13/21 magnesium oxide 400 mg (241.3 mg 400 mg PO DAILY 08/12/20 02/13/21 magnesium) tablet (MagOx) methadone 10 mg/mL oral concentrate 50 mg PO QAM 08/12/20 02/13/21 pen needle, diabetic 08/12/20 02/13/21 aspirin 81 mg tablet,delayed 81 mg PO DAILY 08/14/20 02/13/21 release atorvastatin 20 mg tablet 20 mg PO BEDTIME 08/14/20 02/13/21 carvedilol 6.25 mg tablet 6.25 mg PO BID 08/14/20 02/13/21 cetirizine 10 mg tablet 10 mg PO DAILY 08/14/20 02/13/21 clotrimazole 1 % topical cream 1 applic TOPICAL TID 08/14/20 02/13/21 ergocalciferol (vitamin D2) 1,250 1,250 mcg PO QWEEK 08/14/20 02/13/21 mcg (50,000 unit) capsule fluticasone propionate 50 1 spray INTRANASAL DAILY 08/14/20 02/13/21 mcg/actuation nasal spray,suspension (Flonase Allergy Relief) gabapentin 100 mg capsule 200 mg PO TID 08/14/20 02/13/21 insulin glargine 100 unit/mL 12 unit SUBCUT QPM 08/14/20 02/13/21 subcutaneous solution (Lantus U-100 Insulin) lanolin alcohols-mineral 1 applic TOPICAL DAILY PRN 08/14/20 02/13/21 oil-w.petrolatum-ceresin topical cream (Eucerin) montelukast 10 mg tablet 10 mg PO BEDTIME 08/14/20 02/13/21 polyethylene glycol 3350 17 17 g PO DAILY 08/14/20 02/13/21 gram/dose oral powder (Miralax) sennosides 8.6 mg tablet (senna) 8.6 mg PO BEDTIME PRN 08/14/20 02/13/21 spironolactone 25 mg tablet 12.5 mg PO DAILY 08/14/20 02/13/21 tamsulosin 0.4 mg capsule 0.4 mg PO DAILY 08/14/20 02/13/21 zinc sulfate 25 mg zinc (110 mg) 220 mg PO DAILY 08/14/20 02/13/21 tablet naloxone 4 mg/actuation nasal 4 mg INTRANASAL Q3M PRN 11/24/20 02/13/21 spray (Narcan) Previous Rx's Medication Instructions Recorded furosemide 40 mg tablet 40 mg PO DAILY #30 tab 12/02/20 doxycycline hyclate 100 mg capsule 100 mg PO DAILY #58 cap 02/16/21 omeprazole 20 mg capsule,delayed 20 mg PO BID #60 cap 02/16/21 release baclofen 5 mg tablet 5 mg PO TID #10 tab 07/20/21 prednisone 50 mg tablet 50 mg PO DAILY #5 tab 07/20/21 Allergies Allergy/AdvReac Type Severity Reaction Status Date / Time ertapenem Allergy Intermediate Hives Verified 07/20/21 01:06 vancomycin [VANCOMYCIN] Allergy Intermediate HIVES Verified 07/20/21 01:06 Chocolate Allergy Unknown Rash Verified 07/20/21 01:06 ciprofloxacin [From CIPRO] Allergy Unknown SWELLING Verified 07/20/21 01:06 hydrocortisone [Cipro HC] Allergy Unknown Unknown Verified 07/20/21 01:06 sulfamethoxazole Allergy Unknown rash Verified 07/20/21 01:06 [From BACTRIM] trimethoprim [From BACTRIM] Allergy Unknown rash Verified 07/20/21 01:06 turkey [TURKEY] Allergy Unknown RASH Verified 07/20/21 01:06 Review of Systems Review of Systems: Constitutional : No Weight loss, No Fever, No Chills, No Night Sweats, No Fatigue, No Malaise ENT/Mouth : No Hearing loss, No Ear Pain, No Nasal Congestion, No Sinus Pain, No Hoarseness, No sore throat, No Rhinorrhea, No Swallowing Difficulty Eyes: No Eye Pain, No Swelling, complaining of mild erythema in the right eye No Foreign Body, No Discharge, No Vision Changes Cardiovascular : No Chest Pain, No SOB, No Dyspnea on Exertion, No Orthopnea, No Edema, No Palpitations Respiratory : No Cough, No Sputum, complaining of intermittent Wheezing, No Smoke Exposure, No Dyspnea Gastrointestinal : No Nausea, No Vomiting, No Diarrhea, No Constipation, No abdominal Pain, No Hematochezia, No Melena Genitourinary : no irregular bleeding, No Dysuria, No Urinary Frequency, No Hematuria, No Urinary Incontinence, No Urgency, No Flank Pain, No Urinary Flow Changes, No Hesitancy Musculoskeletal : No joint pain, No Myalgias, No Joint Swelling, complaining twitching sensation in his ribs bilaterally intermittently Skin : No Skin Lesions, No rash Neuro : No Weakness, No Numbness, No Paresthesias, No Loss of Consciousness, No Dizziness, No Headache Psych : No Anxiety/Panic, No Depression, No SI/HI/AH/VH, No Social Issues, Heme/Lymph: No Bruising, No Bleeding,No Lymphadenopathy Endocrine : No Polyuria, No Polydipsia, No Temperature Intolerance PMFSH Past Medical History Medical History Acute on chronic anemia Acute on chronic combined systolic and diastolic congestive heart failure Asthma Bipolar 1 disorder BPH (benign prostatic hyperplasia) Cholelithiasis Closed wedge compression fracture of T9 vertebra COPD (chronic obstructive pulmonary disease) Diabetes mellitus, type 2 GERD (gastroesophageal reflux disease) Hyperlipidemia Peripheral arterial disease Peripheral neuropathy Substance abuse Surgical History History of amputation History of laminectomy History of transurethral resection of prostate Hx of BKA Family History Family History Father Chronic mental illness Hypertension Asthma Stroke Mother Asthma Diabetes Coronary artery disease Social History Social History Household Members: None Housing: Apartment Housing Other:: IN A LITTLE ROOM Do you presently have visiting nurse or other home services: Yes ([employer]; 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 Oriented X3. No acute distress. Eyes: Pupils equal, round and reactive to light. Small subconjunctival hemorrhage in the right eye ENT: Pharynx normal. Neck: Normal inspection. Neck supple. No lymph nodes noted. No crepitus CVS: Normal heart rate and rhythm. Pulses normal. Normal S1 and S2, reproducible chest pain on palpation Respiratory: No respiratory distress. Breath sounds normal. No Wheezing. No rales Abdomen: Soft and nontender. No rigidity. No distention. good BS x4 Skin: Skin warm and dry. Normal skin color. Normal skin turgor. Extremities: No lower extremity edema. No lower extremity edema. No Lacerations. No Rash Neuro: Oriented X 3. No motor deficit. No sensory deficit. Moving all extermities. No slurred speech. Course Course Course Narrative: Patient's troponin is chronically elevated, as well as a BNP, EKG within normal limits, no new changes. Patient is asymptomatic at this time. I discussed with the patient that the source of his pain is likely costochondritis. Patient was given a dose of baclofen in the emergency room. At this time patient is not wheezing, patient was provided with 1 p.o. dose of prednisone in the ED Medical Decision Making Lab Data Result diagrams: 07/20/21 02:05 07/20/21 02:41 Labs: Lab Results 07/20/21 07/20/21 07/20/21 Range/Units 01:10 02:05 02:05 WBC 8.8 (4.8-10.8) X10*3/uL RBC 4.05 L D (4.60-5.80) X10*6/uL Hgb 10.8 L D (14.0-18.0) g/dl Hct 34.1 L D (42-52) % MCV 84.2 (80-98) fL MCH 26.7 L (27.0-33.0) pg MCHC 31.7 (31.0-36.0) g/dl RDW 14.6 (11.0-16.0) % Plt Count 246 (160-400) X10*3/uL MPV 9.2 L (9.4-12.4) fL Immature Gran % (Auto) 0.3 (0.0-0.4) % Neut % (Auto) 71.5 (45-73) % Lymph % (Auto) 13.5 L (20-40) % [place] % (Auto) 10.7 (2-11) % Eos % (Auto) 3.5 (0-4) % Baso % (Auto) 0.5 (0-2) % Lymph # (Auto) 1.2 (1.2-4.9) X10*3/uL [place] # (Auto) 0.9 (0.1-1.2) X10*3/uL Eos # (Auto) 0.3 (0.0-0.4) X10*3/uL Baso # (Auto) 0.0 (0.0-0.2) X10*3/uL Abs Immat Gran (auto) 0.03 (0.00-0.03) X10*3/uL Absolute Neuts (auto) 6.3 (2.0-8.3) X10*3/uL Absolute Nucleated RBC 0.000 (0.0-0.012) X10*3/uL Nucleated RBC % (auto) 0.0 (0.0-0.2) /100WBC Sodium (135-145) mmol/L Potassium (3.3-5.1) mmol/L Chloride (96-108) mmol/L Carbon Dioxide (22-29) mmol/L Anion Gap (12-20) BUN (9-16) mg/dL Creatinine (0.5-1.4) mg/dL Estim Creat Clear Calc Estimated GFR Random Glucose (60-115) mg/dL Calcium (8.4-10.2) mg/dL Troponin I High Sens 11.6 (<3.5-35.0) ng/L B-Natriuretic Peptide 821 H (<100) pg/mL COVID-19 (JAMILA) Negative (Negative) COVID-19 Clin Com See Note 07/20/21 Range/Units 02:41 WBC (4.8-10.8) X10*3/uL RBC (4.60-5.80) X10*6/uL Hgb (14.0-18.0) g/dl Hct (42-52) % MCV (80-98) fL MCH (27.0-33.0) pg MCHC (31.0-36.0) g/dl RDW (11.0-16.0) % Plt Count (160-400) X10*3/uL MPV (9.4-12.4) fL Immature Gran % (Auto) (0.0-0.4) % Neut % (Auto) (45-73) % Lymph % (Auto) (20-40) % [place] % (Auto) (2-11) % Eos % (Auto) (0-4) % Baso % (Auto) (0-2) % Lymph # (Auto) (1.2-4.9) X10*3/uL [place] # (Auto) (0.1-1.2) X10*3/uL Eos # (Auto) (0.0-0.4) X10*3/uL Baso # (Auto) (0.0-0.2) X10*3/uL Abs Immat Gran (auto) (0.00-0.03) X10*3/uL Absolute Neuts (auto) (2.0-8.3) X10*3/uL Absolute Nucleated RBC (0.0-0.012) X10*3/uL Nucleated RBC % (auto) (0.0-0.2) /100WBC Sodium 137 (135-145) mmol/L Potassium 4.4 (3.3-5.1) mmol/L Chloride 103 (96-108) mmol/L Carbon Dioxide 25 (22-29) mmol/L Anion Gap 13 (12-20) BUN 16 (9-16) mg/dL Creatinine 0.89 (0.5-1.4) mg/dL Estim Creat Clear Calc 86.6 Estimated GFR > 60 Random Glucose 126 H (60-115) mg/dL Calcium 9.8 D (8.4-10.2) mg/dL Troponin I High Sens (<3.5-35.0) ng/L B-Natriuretic Peptide (<100) pg/mL COVID-19 (JAMILA) (Negative) COVID-19 Clin Com Imaging Data Chest x-ray: Radiologist's impression: Multiple external artifacts overlie the thorax. Cardiac silhouette is at the upper limits of normal size. Mild blunting of the right costophrenic sulcus is noted. Thickening of the minor fissure is visualized along with diffuse fine pulmonary reticular opacities and diffuse vascular indistinctness. No focal pulmonary consolidation. No pneumothoraces. XR/XR chest 1V IMPRESSION: Findings suspicious for mild-moderate interstitial pulmonary edema. ECG Data Attestation: I personally reviewed and interpreted this ECG as follows: (Normal sinus rhythm, heart rate 90, no specific ST segment changes in V4 through V6, no reciprocal changes) Discharge Plan Discharge Clinical Impression: Acute costochondritis, Asthma, Subconjunctival hemorrhage Patient Disposition: Home, Self-Care Instructions: Asthma (ED), Subconjunctival Hemorrhage (ED), Costochondritis (ED) Additional Instructions: Please follow-up with your primary care physician tomorrow. If you have any worsening or new symptoms, please return to the emergency room or call 911 Prescriptions: New prednisone 50 mg tablet 50 mg PO DAILY Qty: 5 RF: 0 baclofen 5 mg tablet 5 mg PO TID Qty: 10 RF: 0 No Action albuterol sulfate 2.5 mg /3 mL (0.083 %) Solution For Nebulization 2.5 mg inhalation Q4H PRN (Reason: Shortness Of Breath Or Wheezing) RF: 0 (DME) lancets Misc MISCELLANEOUS RF: 0 (DME) blood-glucose meter [FreeStyle [place] Lite] Kit MISCELLANEOUS RF: 0 (DME) cane Device MISCELLANEOUS RF: 0 (DME) FreeStyle Lite Strips RF: 0 magnesium oxide [MagOx] 400 mg (241.3 mg magnesium) Tablet 400 mg PO DAILY RF: 0 (DME) pen needle, diabetic Needle MISCELLANEOUS RF: 0 methadone 10 mg/mL Concentrate 50 mg PO QAM RF: 0 albuterol sulfate 90 mcg/actuation Hfa Aerosol Inhaler 2 puff INHALATION Q4H PRN (Reason: Shortness Of Breath) RF: 0 zinc sulfate 110 mg (25 mg zinc) Tablet 220 mg PO DAILY RF: 0 spironolactone 25 mg Tablet 12.5 mg PO DAILY RF: 0 sennosides [senna] 8.6 mg Tablet 8.6 mg PO BEDTIME PRN (Reason: Constipation) RF: 0 Lantus U-100 Insulin 100 unit/mL Solution 12 unit SUBCUT QPM RF: 0 cetirizine 10 mg Tablet 10 mg PO DAILY RF: 0 aspirin 81 mg Tablet,Delayed Release (Dr/Ec) 81 mg PO DAILY RF: 0 polyethylene glycol 3350 [Miralax] 17 gram/dose Powder 17 g PO DAILY RF: 0 carvedilol 6.25 mg Tablet 6.25 mg PO BID RF: 0 atorvastatin 20 mg Tablet 20 mg PO BEDTIME RF: 0 tamsulosin 0.4 mg Capsule 0.4 mg PO DAILY RF: 0 montelukast 10 mg Tablet 10 mg PO BEDTIME RF: 0 gabapentin 100 mg Capsule 200 mg PO TID RF: 0 ergocalciferol (vitamin D2) 1,250 mcg (50,000 unit) Capsule 1,250 mcg PO QWEEK RF: 0 fluticasone propionate [Flonase Allergy Relief] 50 mcg/actuation [place],Suspension 1 spray INTRANASAL DAILY RF: 0 clotrimazole 1 % Cream 1 applic TOPICAL TID RF: 0 Eucerin Cream 1 applic TOPICAL DAILY PRN (Reason: Dry Skin) RF: 0 doxycycline hyclate 100 mg capsule 100 mg PO DAILY Qty: 58 RF: 0 omeprazole 20 mg capsule,delayed release(DR/EC) 20 mg PO BID Qty: 60 RF: 0 Narcan 4 mg/actuation [place],Non-Aerosol 4 mg INTRANASAL Q3M PRN (Reason: OVER DOSE) RF: 0 furosemide 40 mg Tablet 40 mg PO DAILY Qty: 30 RF: 0
[2021-07-20] MEDS: predniSONE 20 MG TABLET 60 MG PO (04:07)
[2021-07-20] MEDS: Baclofen 10 MG TABLET PO (04:07)
[2021-07-20 04:11] VITALS: BP 151/93; PULSE 100; RESP 16; O2SAT 96
[2021-07-20 04:15] VITALS: PULSE 135
--- NOTE | 2021-07-20 04:15 | PC.NURSE ---
Pt medicated per JAN. IV removed, VSS. Pt aware of plan to await ambulance transport home.
== END 2021-07-20 05:15 | disposition home or self-care (01) ==
PROVIDERS: Emergency Provider Emergency Medicine
DX: M94.0 Chondrocostal junction syndrome [Tietze] (principal); J45.909 Unspecified asthma, uncomplicated; H11.31 Conjunctival hemorrhage, right eye; R06.02 Shortness of breath; Z20.822 Contact with and (suspected) exposure to COVID-19; E11.9 Type 2 diabetes mellitus without complications; I10 Essential (primary) hypertension; F19.10 Other psychoactive substance abuse, uncomplicated; Z79.4 Long term (current) use of insulin; Z79.82 Long term (current) use of aspirin; Z79.899 Other long term (current) drug therapy
CPT/HCPCS: 36415; 71045; 80048; 83880; 84484; 85025; 87635; 93005; 99284

== ENCOUNTER 2021-09-21 08:56 | Emergency (ER) | payer MEDICAID, SELFPAY ==
--- NOTE | ~2021-09-21 | XR_ITS ---
EXAMINATION: XR FOOT, LEFT CLINICAL INFORMATION: Suspected infection/osteomyelitis. COMPARISON: Left foot done on 02/12/2021. TECHNIQUE: AP, lateral, and oblique views of the left foot. FINDINGS: Previously documented cortical erosions and irregularity involving the site of the insertion of the Achilles tendon appear unchanged. Previously documented soft tissue gas in this region seen on the prior CT study dated 01/02/2021 shows interval resolution. The remainder of the visualized bones show satisfactory alignment and intact cortices and no evidence of any destruction or erosion or periosteal reaction. Extensive vasculopathy is noted throughout the visualized part of the left leg and left foot. XR/XR foot LT min 3V IMPRESSION: 1. Interval resolution of soft tissue gas overlying the posterior superior cortex of the calcaneus the prior CT study dated 01/02/2021. 2. Persistent stable cortical irregularity and erosive changes involving the superior posterior calcaneus, unchanged. 3. No new abnormalities. 4. Extensive vasculopathy.
[2021-09-21 09:05] VITALS: BP 134/72; PULSE 85; O2SAT 97
[2021-09-21 09:10] VITALS: BP 121/79; PULSE 86; RESP 18; TEMP 36.7; O2SAT 99; BMI 22.6
--- NOTE | 2021-09-21 09:29 | ED_ITS ---
HPI - Extremity Problem General Chief complaint: Wound/Laceration <Nkikie Mcmahan MD - Last Filed: 09/21/21 15:43> Stated complaint: LEFT TOE PAIN,HX DM <Nikkie Mcmahan MD - Last Filed: 09/21/21 15:43> Time Seen by Provider: 09/21/21 09:29 <Nikkie Mcmahan MD - Last Filed: 09/21/21 15:43> Source: patient <Nikkie Mcmahan MD - Last Filed: 09/21/21 15:43> Mode of arrival: ambulatory <Nikkie Mcmahan MD - Last Filed: 09/21/21 15:43> Limitations: no limitations <Nikkie Mcmahan MD - Last Filed: 09/21/21 15:43> History of Present Illness HPI Narrative: Comes emergency room complaining of left toe pain. Started 5 days ago. Patient complaining of erythema and pain on great toe of the left foot. Patient denies any injury. Denies fever chills <Nikkie Mcmahan MD - Last Filed: 09/21/21 15:43> Related Data Home medications: Home Medications Medication Instructions Recorded Confirmed FreeStyle Lite Strips 08/12/20 02/13/21 albuterol sulfate 2.5 mg INHALATION Q4H PRN 08/12/20 02/13/21 albuterol sulfate 90 mcg/actuation 2 puff INHALATION Q4H PRN 08/12/20 02/13/21 aerosol inhaler blood-glucose meter (FreeStyle 08/12/20 02/13/21 [place] Lite) cane 08/12/20 02/13/21 lancets 08/12/20 02/13/21 magnesium oxide 400 mg (241.3 mg 400 mg PO DAILY 08/12/20 02/13/21 magnesium) tablet (MagOx) methadone 10 mg/mL oral concentrate 50 mg PO QAM 08/12/20 02/13/21 pen needle, diabetic 08/12/20 02/13/21 aspirin 81 mg tablet,delayed 81 mg PO DAILY 08/14/20 02/13/21 release atorvastatin 20 mg tablet 20 mg PO BEDTIME 08/14/20 02/13/21 carvedilol 6.25 mg tablet 6.25 mg PO BID 08/14/20 02/13/21 cetirizine 10 mg tablet 10 mg PO DAILY 08/14/20 02/13/21 clotrimazole 1 % topical cream 1 applic TOPICAL TID 08/14/20 02/13/21 ergocalciferol (vitamin D2) 1,250 1,250 mcg PO QWEEK 08/14/20 02/13/21 mcg (50,000 unit) capsule fluticasone propionate 50 1 spray INTRANASAL DAILY 08/14/20 02/13/21 mcg/actuation nasal spray,suspension (Flonase Allergy Relief) gabapentin 100 mg capsule 200 mg PO TID 08/14/20 02/13/21 insulin glargine 100 unit/mL 12 unit SUBCUT QPM 08/14/20 02/13/21 subcutaneous solution (Lantus U-100 Insulin) lanolin alcohols-mineral 1 applic TOPICAL DAILY PRN 08/14/20 02/13/21 oil-w.petrolatum-ceresin topical cream (Eucerin) montelukast 10 mg tablet 10 mg PO BEDTIME 08/14/20 02/13/21 polyethylene glycol 3350 17 17 g PO DAILY 08/14/20 02/13/21 gram/dose oral powder (Miralax) sennosides 8.6 mg tablet (senna) 8.6 mg PO BEDTIME PRN 08/14/20 02/13/21 spironolactone 25 mg tablet 12.5 mg PO DAILY 08/14/20 02/13/21 tamsulosin 0.4 mg capsule 0.4 mg PO DAILY 08/14/20 02/13/21 zinc sulfate 25 mg zinc (110 mg) 220 mg PO DAILY 08/14/20 02/13/21 tablet naloxone 4 mg/actuation nasal 4 mg INTRANASAL Q3M PRN 11/24/20 02/13/21 spray (Narcan) Previous Rx's Medication Instructions Recorded furosemide 40 mg tablet 40 mg PO DAILY #30 tab 12/02/20 doxycycline hyclate 100 mg capsule 100 mg PO DAILY #58 cap 02/16/21 omeprazole 20 mg capsule,delayed 20 mg PO BID #60 cap 02/16/21 release baclofen 5 mg tablet 5 mg PO TID #10 tab 07/20/21 prednisone 50 mg tablet 50 mg PO DAILY #5 tab 07/20/21 cephalexin 750 mg capsule (Keflex) 750 mg PO BID #14 cap 09/21/21 doxycycline hyclate 100 mg capsule 100 mg PO DAILY #14 cap 09/21/21 fluticasone 250 mcg-salmeterol 50 1 inh INHALATION BID #60 ea 09/21/21 mcg/dose blistr powdr for inhalation (Advair Diskus) <Nikkie Mcmahan MD - Last Filed: 09/21/21 15:43> Allergies/Adverse reactions: Allergies Allergy/AdvReac Type Severity Reaction Status Date / Time ertapenem Allergy Intermediate Hives Verified 07/20/21 01:06 vancomycin [VANCOMYCIN] Allergy Intermediate HIVES Verified 07/20/21 01:06 Chocolate Allergy Unknown Rash Verified 07/20/21 01:06 ciprofloxacin [From CIPRO] Allergy Unknown SWELLING Verified 07/20/21 01:06 hydrocortisone [Cipro HC] Allergy Unknown Unknown Verified 07/20/21 01:06 sulfamethoxazole Allergy Unknown rash Verified 07/20/21 01:06 [From BACTRIM] trimethoprim [From BACTRIM] Allergy Unknown rash Verified 07/20/21 01:06 turkey [TURKEY] Allergy Unknown RASH Verified 07/20/21 01:06 <Nikkie Mcmahan MD - Last Filed: 09/21/21 15:43> Review of Systems Review of Systems: Constitutional : No Weight loss, No Fever, No Chills, No Night Sweats, No Fatigue, No Malaise ENT/Mouth : No Hearing loss, No Ear Pain, No Nasal Congestion, No Sinus Pain, No Hoarseness, No sore throat, No Rhinorrhea, No Swallowing Difficulty Eyes: No Eye Pain, No Swelling, No Redness, No Foreign Body, No Discharge, No Vision Changes Cardiovascular : No Chest Pain, No SOB, No Dyspnea on Exertion, No Orthopnea, No Edema, No Palpitations Respiratory : No Cough, No Sputum, No Wheezing, No Smoke Exposure, No Dyspnea Gastrointestinal : No Nausea, No Vomiting, No Diarrhea, No Constipation, No abdominal Pain, No Hematochezia, No Melena Genitourinary : no irregular bleeding, No Dysuria, No Urinary Frequency, No Hematuria, No Urinary Incontinence, No Urgency, No Flank Pain, No Urinary Flow Changes, No Hesitancy Musculoskeletal : No joint pain, No Myalgias, No Joint Swelling Skin : Complaining of redness and pain in the great toe of the left foot Neuro : No Weakness, No Numbness, No Paresthesias, No Loss of Consciousness, No Dizziness, No Headache Psych : No Anxiety/Panic, No Depression, No SI/HI/AH/VH, No Social Issues, Heme/Lymph: No Bruising, No Bleeding,No Lymphadenopathy Endocrine : No Polyuria, No Polydipsia, No Temperature Intolerance <Nikkie Mcmahan MD - Last Filed: 09/21/21 15:43> [facility] Past Medical History Medical History: Medical History Acute on chronic anemia Acute on chronic combined systolic and diastolic congestive heart failure Asthma Bipolar 1 disorder BPH (benign prostatic hyperplasia) Cholelithiasis Closed wedge compression fracture of T9 vertebra COPD (chronic obstructive pulmonary disease) Diabetes mellitus, type 2 GERD (gastroesophageal reflux disease) Hyperlipidemia Peripheral arterial disease Peripheral neuropathy Substance abuse <Nikkie Mcmahan MD - Last Filed: 09/21/21 15:43> Surgical History: Surgical History History of amputation History of laminectomy History of transurethral resection of prostate Hx of BKA <Nikkie Mcmahan MD - Last Filed: 09/21/21 15:43> Family History Family History: Family History Father Chronic mental illness Hypertension Asthma Stroke Mother Asthma Diabetes Coronary artery disease <Nikkie Mcmahan MD - Last Filed: 09/21/21 15:43> Social History Social History: Social History Household Members: None Housing: Apartment Housing Other:: IN A LITTLE ROOM Do you presently have visiting nurse or other home services: Yes ([employer]; 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[employer]) Alcohol intake: never Patient Tobacco Use Status: Tobacco use Unknown Second Hand Smoke Exposure: No Use of substances other than those prescribed or required for medical reasons: Yes Substance Use Type: Marijuana Advance Directives: Yes Advance Directives on File: Yes Advance Directives Date on File: 11/24/20 service: No Current occupational status: disabled <Nikkie Mcmahan MD - Last Filed: 09/21/21 15:43> Physical Exam Vital Signs: Vital Signs: Last Vital Signs Temp 98.4 F 09/21/21 11:24 Pulse 69 09/21/21 11:24 Resp 16 09/21/21 11:24 BP 119/67 09/21/21 11:24 Pulse Ox 100 09/21/21 11:24 Body Mass Index 22.6 <Nikkie Mcmahan MD - Last Filed: 09/21/21 15:43> Vital Signs: Last Vital Signs Temp 98.4 F 09/21/21 11:24 Pulse 69 09/21/21 11:24 Resp 16 09/21/21 11:24 BP 119/67 09/21/21 11:24 Pulse Ox 100 09/21/21 11:24 Body Mass Index 22.6 <YAKOV Ibanez - Last Filed: 10/02/21 10:34> Const: Other: Appearance: Alert. Oriented X3. No acute distress. Eyes: Pupils equal, round and reactive to light. ENT: Pharynx normal. Neck: Normal inspection. Neck supple. No lymph nodes noted. No crepitus CVS: Normal heart rate and rhythm. Pulses normal. Normal S1 and S2 Respiratory: No respiratory distress. Breath sounds normal. No Wheezing. No rales Abdomen: Soft and nontender. No rigidity. No distention. good BS x4 Skin: Skin warm and dry. See below Extremities: Right BKA. Left foot erythema great toe, abrasion/callus on the dorsal aspect of the toe, not draining purulent material, swollen, able to flex and extend toe Neuro: Oriented X 3. No motor deficit. No sensory deficit. Moving all extermities. No slurred speech. <Nikkie Mcmahan MD - Last Filed: 09/21/21 15:43> Course Course Course Narrative: Follow patient's labs do not show any acute pathology, I discussed the appearance of the patient's foot, history of amputation of his other foot, I recommended the patient states for IV antibiotics and admission Patient declined, patient states that he wants to try p.o. antibiotics 1st, he has a visiting nurse that will see him tomorrow, if anything changes he will return to the emergency room. Normal limits, lactic acid normal, patient has not had any fever chills. Has not tried any antibiotics. A this time, it is reasonable to have the patient try oral antibiotics. Needs to have close follow-up with his primary care physician. First dose of Keflex and doxycycline given to the patient. ESR is chronically elevated, CRP is a send off. <Nikkie Mcmahan MD - Last Filed: 09/21/21 15:43> MDM - Extremity (Nontraumatic) Lab Data Result diagrams: : 09/21/21 12:07 09/21/21 12:37 <Nikkie Mcmahan MD - Last Filed: 09/21/21 15:43> Labs: Lab Results 09/21/21 09/21/21 09/21/21 Range/Units 12:07 12:07 12:07 WBC 6.9 (4.8-10.8) X10*3/uL RBC 4.03 L (4.60-5.80) X10*6/uL Hgb 10.7 L (14.0-18.0) g/dl Hct 33.7 L (42.0-52.0) % MCV 83.6 (80.0-98.0) fL MCH 26.6 L (27.0-33.0) pg MCHC 31.8 (31.0-36.0) g/dl RDW 14.4 (11.0-16.0) % Plt Count 276 (160-400) X10*3/uL MPV 9.2 L (9.4-12.4) fL Immature Gran % (Auto) 0.3 (0.0-0.4) % Neut % (Auto) 66.9 (45-73) % Lymph % (Auto) 15.1 L (20-40) % [place] % (Auto) 13.4 H (2-11) % Eos % (Auto) 3.9 (0-4) % Baso % (Auto) 0.4 (0-2) % Lymph # (Auto) 1.0 L (1.2-4.9) X10*3/uL [place] # (Auto) 0.9 (0.1-1.2) X10*3/uL Eos # (Auto) 0.3 (0.0-0.4) X10*3/uL Baso # (Auto) 0.0 (0.0-0.2) X10*3/uL Abs Immat Gran (auto) 0.02 (0.00-0.03) X10*3/uL Absolute Neuts (auto) 4.6 (2.0-8.3) x10*3/uL Absolute Nucleated RBC 0.000 (0.0-0.012) X10*3/uL Nucleated RBC % (auto) 0.0 (0.0-0.2) /100WBC ESR (0-15) MM/HR PT 13.5 H (9.9-13.0) SEC INR 1.2 H (0.9-1.1) Sodium (135-145) mmol/L Potassium (3.3-5.1) mmol/L Chloride (96-108) mmol/L Carbon Dioxide (22-29) mmol/L Anion Gap (12-20) BUN (9-16) mg/dL Creatinine (0.5-1.4) mg/dL Estim Creat Clear Calc Estimated GFR POC Glucose (60-115) mg/dL Random Glucose (60-115) mg/dL Lactic Acid 1.6 (0.5-2.0) mmol/L Calcium (8.4-10.2) mg/dL Total Bilirubin (0.0-1.0) mg/dL Direct Bilirubin (0.0-0.5) mg/dL AST (5-37) U/L ALT (0-40) U/L Alkaline Phosphatase (39-117) U/L C-React Prot High Sens Total Protein (6.5-8.0) g/dL Albumin (3.5-5.0) g/dL 09/21/21 09/21/21 09/21/21 Range/Units 12:37 12:37 12:37 WBC (4.8-10.8) X10*3/uL RBC (4.60-5.80) X10*6/uL Hgb (14.0-18.0) g/dl Hct (42.0-52.0) % MCV (80.0-98.0) fL MCH (27.0-33.0) pg MCHC (31.0-36.0) g/dl RDW (11.0-16.0) % Plt Count (160-400) X10*3/uL MPV (9.4-12.4) fL Immature Gran % (Auto) (0.0-0.4) % Neut % (Auto) (45-73) % Lymph % (Auto) (20-40) % [place] % (Auto) (2-11) % Eos % (Auto) (0-4) % Baso % (Auto) (0-2) % Lymph # (Auto) (1.2-4.9) X10*3/uL [place] # (Auto) (0.1-1.2) X10*3/uL Eos # (Auto) (0.0-0.4) X10*3/uL Baso # (Auto) (0.0-0.2) X10*3/uL Abs Immat Gran (auto) (0.00-0.03) X10*3/uL Absolute Neuts (auto) (2.0-8.3) x10*3/uL Absolute Nucleated RBC (0.0-0.012) X10*3/uL Nucleated RBC % (auto) (0.0-0.2) /100WBC ESR 87 H (0-15) MM/HR PT (9.9-13.0) SEC INR (0.9-1.1) Sodium 136 (135-145) mmol/L Potassium 4.4 (3.3-5.1) mmol/L Chloride 102 (96-108) mmol/L Carbon Dioxide 25 (22-29) mmol/L Anion Gap 13 (12-20) BUN 12 (9-16) mg/dL Creatinine 0.77 (0.5-1.4) mg/dL Estim Creat Clear Calc 99.6 Estimated GFR > 60 POC Glucose (60-115) mg/dL Random Glucose 72 D (60-115) mg/dL Lactic Acid (0.5-2.0) mmol/L Calcium 9.0 D (8.4-10.2) mg/dL Total Bilirubin 0.5 (0.0-1.0) mg/dL Direct Bilirubin 0.2 (0.0-0.5) mg/dL AST 17 (5-37) U/L ALT 8 (0-40) U/L Alkaline Phosphatase 96 (39-117) U/L C-React Prot High Sens Cancelled Total Protein 7.7 (6.5-8.0) g/dL Albumin 3.7 D (3.5-5.0) g/dL 09/21/21 Range/Units 16:56 WBC (4.8-10.8) X10*3/uL RBC (4.60-5.80) X10*6/uL Hgb (14.0-18.0) g/dl Hct (42.0-52.0) % MCV (80.0-98.0) fL MCH (27.0-33.0) pg MCHC (31.0-36.0) g/dl RDW (11.0-16.0) % Plt Count (160-400) X10*3/uL MPV (9.4-12.4) fL Immature Gran % (Auto) (0.0-0.4) % Neut % (Auto) (45-73) % Lymph % (Auto) (20-40) % [place] % (Auto) (2-11) % Eos % (Auto) (0-4) % Baso % (Auto) (0-2) % Lymph # (Auto) (1.2-4.9) X10*3/uL [place] # (Auto) (0.1-1.2) X10*3/uL Eos # (Auto) (0.0-0.4) X10*3/uL Baso # (Auto) (0.0-0.2) X10*3/uL Abs Immat Gran (auto) (0.00-0.03) X10*3/uL Absolute Neuts (auto) (2.0-8.3) x10*3/uL Absolute Nucleated RBC (0.0-0.012) X10*3/uL Nucleated RBC % (auto) (0.0-0.2) /100WBC ESR (0-15) MM/HR PT (9.9-13.0) SEC INR (0.9-1.1) Sodium (135-145) mmol/L Potassium (3.3-5.1) mmol/L Chloride (96-108) mmol/L Carbon Dioxide (22-29) mmol/L Anion Gap (12-20) BUN (9-16) mg/dL Creatinine (0.5-1.4) mg/dL Estim Creat Clear Calc Estimated GFR POC Glucose 97 (60-115) mg/dL Random Glucose (60-115) mg/dL Lactic Acid (0.5-2.0) mmol/L Calcium (8.4-10.2) mg/dL Total Bilirubin (0.0-1.0) mg/dL Direct Bilirubin (0.0-0.5) mg/dL AST (5-37) U/L ALT (0-40) U/L Alkaline Phosphatase (39-117) U/L C-React Prot High Sens Total Protein (6.5-8.0) g/dL Albumin (3.5-5.0) g/dL <Nikkie Mcmahan MD - Last Filed: 09/21/21 15:43> Lab Results 09/21/21 09/21/21 09/21/21 Range/Units 12:07 12:07 12:07 WBC 6.9 (4.8-10.8) X10*3/uL RBC 4.03 L (4.60-5.80) X10*6/uL Hgb 10.7 L (14.0-18.0) g/dl Hct 33.7 L (42.0-52.0) % MCV 83.6 (80.0-98.0) fL MCH 26.6 L (27.0-33.0) pg MCHC 31.8 (31.0-36.0) g/dl RDW 14.4 (11.0-16.0) % Plt Count 276 (160-400) X10*3/uL MPV 9.2 L (9.4-12.4) fL Immature Gran % (Auto) 0.3 (0.0-0.4) % Neut % (Auto) 66.9 (45-73) % Lymph % (Auto) 15.1 L (20-40) % [place] % (Auto) 13.4 H (2-11) % Eos % (Auto) 3.9 (0-4) % Baso % (Auto) 0.4 (0-2) % Lymph # (Auto) 1.0 L (1.2-4.9) X10*3/uL [place] # (Auto) 0.9 (0.1-1.2) X10*3/uL Eos # (Auto) 0.3 (0.0-0.4) X10*3/uL Baso # (Auto) 0.0 (0.0-0.2) X10*3/uL Abs Immat Gran (auto) 0.02 (0.00-0.03) X10*3/uL Absolute Neuts (auto) 4.6 (2.0-8.3) x10*3/uL Absolute Nucleated RBC 0.000 (0.0-0.012) X10*3/uL Nucleated RBC % (auto) 0.0 (0.0-0.2) /100WBC ESR (0-15) MM/HR PT 13.5 H (9.9-13.0) SEC INR 1.2 H (0.9-1.1) Sodium (135-145) mmol/L Potassium (3.3-5.1) mmol/L Chloride (96-108) mmol/L Carbon Dioxide (22-29) mmol/L Anion Gap (12-20) BUN (9-16) mg/dL Creatinine (0.5-1.4) mg/dL Estim Creat Clear Calc Estimated GFR POC Glucose (60-115) mg/dL Random Glucose (60-115) mg/dL Lactic Acid 1.6 (0.5-2.0) mmol/L Calcium (8.4-10.2) mg/dL Total Bilirubin (0.0-1.0) mg/dL Direct Bilirubin (0.0-0.5) mg/dL AST (5-37) U/L ALT (0-40) U/L Alkaline Phosphatase (39-117) U/L C-React Prot High Sens Total Protein (6.5-8.0) g/dL Albumin (3.5-5.0) g/dL 09/21/21 09/21/21 09/21/21 Range/Units 12:37 12:37 12:37 WBC (4.8-10.8) X10*3/uL RBC (4.60-5.80) X10*6/uL Hgb (14.0-18.0) g/dl Hct (42.0-52.0) % MCV (80.0-98.0) fL MCH (27.0-33.0) pg MCHC (31.0-36.0) g/dl RDW (11.0-16.0) % Plt Count (160-400) X10*3/uL MPV (9.4-12.4) fL Immature Gran % (Auto) (0.0-0.4) % Neut % (Auto) (45-73) % Lymph % (Auto) (20-40) % [place] % (Auto) (2-11) % Eos % (Auto) (0-4) % Baso % (Auto) (0-2) % Lymph # (Auto) (1.2-4.9) X10*3/uL [place] # (Auto) (0.1-1.2) X10*3/uL Eos # (Auto) (0.0-0.4) X10*3/uL Baso # (Auto) (0.0-0.2) X10*3/uL Abs Immat Gran (auto) (0.00-0.03) X10*3/uL Absolute Neuts (auto) (2.0-8.3) x10*3/uL Absolute Nucleated RBC (0.0-0.012) X10*3/uL Nucleated RBC % (auto) (0.0-0.2) /100WBC ESR 87 H (0-15) MM/HR PT (9.9-13.0) SEC INR (0.9-1.1) Sodium 136 (135-145) mmol/L Potassium 4.4 (3.3-5.1) mmol/L Chloride 102 (96-108) mmol/L Carbon Dioxide 25 (22-29) mmol/L Anion Gap 13 (12-20) BUN 12 (9-16) mg/dL Creatinine 0.77 (0.5-1.4) mg/dL Estim Creat Clear Calc 99.6 Estimated GFR > 60 POC Glucose (60-115) mg/dL Random Glucose 72 D (60-115) mg/dL Lactic Acid (0.5-2.0) mmol/L Calcium 9.0 D (8.4-10.2) mg/dL Total Bilirubin 0.5 (0.0-1.0) mg/dL Direct Bilirubin 0.2 (0.0-0.5) mg/dL AST 17 (5-37) U/L ALT 8 (0-40) U/L Alkaline Phosphatase 96 (39-117) U/L C-React Prot High Sens Cancelled Total Protein 7.7 (6.5-8.0) g/dL Albumin 3.7 D (3.5-5.0) g/dL 09/21/21 Range/Units 16:56 WBC (4.8-10.8) X10*3/uL RBC (4.60-5.80) X10*6/uL Hgb (14.0-18.0) g/dl Hct (42.0-52.0) % MCV (80.0-98.0) fL MCH (27.0-33.0) pg MCHC (31.0-36.0) g/dl RDW (11.0-16.0) % Plt Count (160-400) X10*3/uL MPV (9.4-12.4) fL Immature Gran % (Auto) (0.0-0.4) % Neut % (Auto) (45-73) % Lymph % (Auto) (20-40) % [place] % (Auto) (2-11) % Eos % (Auto) (0-4) % Baso % (Auto) (0-2) % Lymph # (Auto) (1.2-4.9) X10*3/uL [place] # (Auto) (0.1-1.2) X10*3/uL Eos # (Auto) (0.0-0.4) X10*3/uL Baso # (Auto) (0.0-0.2) X10*3/uL Abs Immat Gran (auto) (0.00-0.03) X10*3/uL Absolute Neuts (auto) (2.0-8.3) x10*3/uL Absolute Nucleated RBC (0.0-0.012) X10*3/uL Nucleated RBC % (auto) (0.0-0.2) /100WBC ESR (0-15) MM/HR PT (9.9-13.0) SEC INR (0.9-1.1) Sodium (135-145) mmol/L Potassium (3.3-5.1) mmol/L Chloride (96-108) mmol/L Carbon Dioxide (22-29) mmol/L Anion Gap (12-20) BUN (9-16) mg/dL Creatinine (0.5-1.4) mg/dL Estim Creat Clear Calc Estimated GFR POC Glucose 97 (60-115) mg/dL Random Glucose (60-115) mg/dL Lactic Acid (0.5-2.0) mmol/L Calcium (8.4-10.2) mg/dL Total Bilirubin (0.0-1.0) mg/dL Direct Bilirubin (0.0-0.5) mg/dL AST (5-37) U/L ALT (0-40) U/L Alkaline Phosphatase (39-117) U/L C-React Prot High Sens Total Protein (6.5-8.0) g/dL Albumin (3.5-5.0) g/dL <YAKOV Ibanez - Last Filed: 10/02/21 10:34> Imaging Data Foot x-ray: Radiologist's impression: FINDINGS: Previously documented cortical erosions and irregularity involving the site of the insertion of the Achilles tendon appear unchanged. Previously documented soft tissue gas in this region seen on the prior CT study dated 01/02/2021 shows interval resolution. The remainder of the visualized bones show satisfactory alignment and intact cortices and no evidence of any destruction or erosion or periosteal reaction. Extensive vasculopathy is noted throughout the visualized part of the left leg and left foot. XR/XR foot LT min 3V IMPRESSION: ? 1. Interval resolution of soft tissue gas overlying the posterior superior cortex of the calcaneus the prior CT study dated 01/02/2021. 2. Persistent stable cortical irregularity and erosive changes involving the superior posterior calcaneus, unchanged. 3. No new abnormalities. 4. Extensive vasculopathy. <Nikkie Mcmahan MD - Last Filed: 09/21/21 15:43> Discharge Plan Discharge Clinical Impression: Cellulitis of foot, left <Nikkie Mcmahan MD - Last Filed: 09/21/21 15:43> Patient Disposition: Home, Self-Care <Nikkie Mcmahan MD - Last Filed: 09/21/21 15:43> Instructions: Cellulitis (ED) <Nikkie Mcmahan MD - Last Filed: 09/21/21 15:43> Additional Instructions: you refused to be admitted today. Please keep a close eye on your foot. Your symptoms worsen, you need to return to the emergency room immediately. Please follow-up with your primary care physician tomorrow. If you have any worsening or new symptoms, please return to the emergency room or call 911 <Nikkie Mcmahan MD - Last Filed: 09/21/21 15:43> Prescriptions: New fluticasone propion-salmeterol [Advair Diskus] 250-50 mcg/dose blister with device 1 inh inhalation BID Qty: 60 RF: 0 doxycycline hyclate 100 mg capsule 100 mg PO DAILY Qty: 14 RF: 0 cephalexin [Keflex] 750 mg capsule 750 mg PO BID Qty: 14 RF: 0 No Action albuterol sulfate 2.5 mg /3 mL (0.083 %) Solution For Nebulization 2.5 mg inhalation Q4H PRN (Reason: Shortness Of Breath Or Wheezing) RF: 0 (DME) lancets Misc MISCELLANEOUS RF: 0 (DME) blood-glucose meter [FreeStyle [place] Lite] Kit MISCELLANEOUS RF: 0 (DME) cane Device MISCELLANEOUS RF: 0 (DME) FreeStyle Lite Strips RF: 0 magnesium oxide [MagOx] 400 mg (241.3 mg magnesium) Tablet 400 mg PO DAILY RF: 0 (DME) pen needle, diabetic Needle MISCELLANEOUS RF: 0 methadone 10 mg/mL Concentrate 50 mg PO QAM RF: 0 albuterol sulfate 90 mcg/actuation Hfa Aerosol Inhaler 2 puff INHALATION Q4H PRN (Reason: Shortness Of Breath) RF: 0 zinc sulfate 110 mg (25 mg zinc) Tablet 220 mg PO DAILY RF: 0 spironolactone 25 mg Tablet 12.5 mg PO DAILY RF: 0 sennosides [senna] 8.6 mg Tablet 8.6 mg PO BEDTIME PRN (Reason: Constipation) RF: 0 Lantus U-100 Insulin 100 unit/mL Solution 12 unit SUBCUT QPM RF: 0 cetirizine 10 mg Tablet 10 mg PO DAILY RF: 0 aspirin 81 mg Tablet,Delayed Release (Dr/Ec) 81 mg PO DAILY RF: 0 polyethylene glycol 3350 [Miralax] 17 gram/dose Powder 17 g PO DAILY RF: 0 carvedilol 6.25 mg Tablet 6.25 mg PO BID RF: 0 atorvastatin 20 mg Tablet 20 mg PO BEDTIME RF: 0 tamsulosin 0.4 mg Capsule 0.4 mg PO DAILY RF: 0 montelukast 10 mg Tablet 10 mg PO BEDTIME RF: 0 gabapentin 100 mg Capsule 200 mg PO TID RF: 0 ergocalciferol (vitamin D2) 1,250 mcg (50,000 unit) Capsule 1,250 mcg PO QWEEK RF: 0 fluticasone propionate [Flonase Allergy Relief] 50 mcg/actuation [place],Suspension 1 spray INTRANASAL DAILY RF: 0 clotrimazole 1 % Cream 1 applic TOPICAL TID RF: 0 Eucerin Cream 1 applic TOPICAL DAILY PRN (Reason: Dry Skin) RF: 0 doxycycline hyclate 100 mg capsule 100 mg PO DAILY Qty: 58 RF: 0 omeprazole 20 mg capsule,delayed release(DR/EC) 20 mg PO BID Qty: 60 RF: 0 Narcan 4 mg/actuation [place],Non-Aerosol 4 mg INTRANASAL Q3M PRN (Reason: OVER DOSE) RF: 0 furosemide 40 mg Tablet 40 mg PO DAILY Qty: 30 RF: 0 prednisone 50 mg tablet 50 mg PO DAILY Qty: 5 RF: 0 baclofen 5 mg tablet 5 mg PO TID Qty: 10 RF: 0 <Nikkie Mcmahan MD - Last Filed: 09/21/21 15:43> Interventions: ED Discharge Assessment Last Done: 09/21/21 18:44 <Nikkie Mcmahan MD - Last Filed: 09/21/21 15:43> Discharge Date/Time: 09/21/21 18:45 <Nikkie Mcmahan MD - Last Filed: 09/21/21 15:43>
--- NOTE | 2021-09-21 10:42 | ECG_ITS ---
Test Reason : short of breath Blood Pressure : / mmHG Vent. Rate : 071 BPM Atrial Rate : 071 BPM P-R Int : 172 ms QRS Dur : 112 ms QT Int : 428 ms P-R-T Axes : 039 -26 130 degrees QTc Int : 465 ms Normal sinus rhythm Intra-ventricular conduction delay ST & T wave abnormality, consider lateral ischemia Prolonged QT Left axis deviation Abnormal ECG When compared with ECG of 20-JUL-2021 02:16, ST less depressed in Lateral leads Referred By: Franky Camacho Electronically Signed By:CRISTIAN SU MD
[2021-09-21 11:24] VITALS: BP 119/67; PULSE 69; RESP 16; TEMP 36.9; O2SAT 100
--- NOTE | 2021-09-21 11:52 | ED.EXTPRO ---
HPI - Extremity Problem General Chief complaint: Wound/Laceration Stated complaint: LEFT TOE PAIN,HX DM Time Seen by Provider: 09/21/21 09:29 Source: patient and EMS Mode of arrival: EMS Limitations: no limitations History of Present Illness HPI Narrative: Patient comes emergency room complaining of an infection in his left great toe. Patient states approximately 5 days ago he noticed that his great toe on the dorsal aspect started to get erythematous. Throughout the last 5 days, the pain has been increasing and the redness is spreading. Patient denies being on antibiotics lately. Patient denies any injury. Patient denies fever chills Related Data Home Medications Medication Instructions Recorded Confirmed FreeStyle Lite Strips 08/12/20 02/13/21 albuterol sulfate 2.5 mg INHALATION Q4H PRN 08/12/20 02/13/21 albuterol sulfate 90 mcg/actuation 2 puff INHALATION Q4H PRN 08/12/20 02/13/21 aerosol inhaler blood-glucose meter (FreeStyle 08/12/20 02/13/21 Purcell Lite) cane 08/12/20 02/13/21 lancets 08/12/20 02/13/21 magnesium oxide 400 mg (241.3 mg 400 mg PO DAILY 08/12/20 02/13/21 magnesium) tablet (MagOx) methadone 10 mg/mL oral concentrate 50 mg PO QAM 08/12/20 02/13/21 pen needle, diabetic 08/12/20 02/13/21 aspirin 81 mg tablet,delayed 81 mg PO DAILY 08/14/20 02/13/21 release atorvastatin 20 mg tablet 20 mg PO BEDTIME 08/14/20 02/13/21 carvedilol 6.25 mg tablet 6.25 mg PO BID 08/14/20 02/13/21 cetirizine 10 mg tablet 10 mg PO DAILY 08/14/20 02/13/21 clotrimazole 1 % topical cream 1 applic TOPICAL TID 08/14/20 02/13/21 ergocalciferol (vitamin D2) 1,250 1,250 mcg PO QWEEK 08/14/20 02/13/21 mcg (50,000 unit) capsule fluticasone propionate 50 1 spray INTRANASAL DAILY 08/14/20 02/13/21 mcg/actuation nasal spray,suspension (Flonase Allergy Relief) gabapentin 100 mg capsule 200 mg PO TID 08/14/20 02/13/21 insulin glargine 100 unit/mL 12 unit SUBCUT QPM 08/14/20 02/13/21 subcutaneous solution (Lantus U-100 Insulin) lanolin alcohols-mineral 1 applic TOPICAL DAILY PRN 08/14/20 02/13/21 oil-w.petrolatum-ceresin topical cream (Eucerin) montelukast 10 mg tablet 10 mg PO BEDTIME 08/14/20 02/13/21 polyethylene glycol 3350 17 17 g PO DAILY 08/14/20 02/13/21 gram/dose oral powder (Miralax) sennosides 8.6 mg tablet (senna) 8.6 mg PO BEDTIME PRN 08/14/20 02/13/21 spironolactone 25 mg tablet 12.5 mg PO DAILY 08/14/20 02/13/21 tamsulosin 0.4 mg capsule 0.4 mg PO DAILY 08/14/20 02/13/21 zinc sulfate 25 mg zinc (110 mg) 220 mg PO DAILY 08/14/20 02/13/21 tablet naloxone 4 mg/actuation nasal 4 mg INTRANASAL Q3M PRN 11/24/20 02/13/21 spray (Narcan) Previous Rx's Medication Instructions Recorded furosemide 40 mg tablet 40 mg PO DAILY #30 tab 12/02/20 doxycycline hyclate 100 mg capsule 100 mg PO DAILY #58 cap 02/16/21 omeprazole 20 mg capsule,delayed 20 mg PO BID #60 cap 02/16/21 release baclofen 5 mg tablet 5 mg PO TID #10 tab 07/20/21 prednisone 50 mg tablet 50 mg PO DAILY #5 tab 07/20/21 cephalexin 750 mg capsule (Keflex) 750 mg PO BID #14 cap 09/21/21 doxycycline hyclate 100 mg capsule 100 mg PO DAILY #14 cap 09/21/21 fluticasone 250 mcg-salmeterol 50 1 inh INHALATION BID #60 ea 09/21/21 mcg/dose blistr powdr for inhalation (Advair Diskus) Allergies Allergy/AdvReac Type Severity Reaction Status Date / Time ertapenem Allergy Intermediate Hives Verified 07/20/21 01:06 vancomycin [VANCOMYCIN] Allergy Intermediate HIVES Verified 07/20/21 01:06 Chocolate Allergy Unknown Rash Verified 07/20/21 01:06 ciprofloxacin [From CIPRO] Allergy Unknown SWELLING Verified 07/20/21 01:06 hydrocortisone [Cipro HC] Allergy Unknown Unknown Verified 07/20/21 01:06 sulfamethoxazole Allergy Unknown rash Verified 07/20/21 01:06 [From BACTRIM] trimethoprim [From BACTRIM] Allergy Unknown rash Verified 07/20/21 01:06 turkey [TURKEY] Allergy Unknown RASH Verified 07/20/21 01:06 Review of Systems Review of Systems: Constitutional : No Weight loss, No Fever, No Chills, No Night Sweats, No Fatigue, No Malaise ENT/Mouth : No Hearing loss, No Ear Pain, No Nasal Congestion, No Sinus Pain, No Hoarseness, No sore throat, No Rhinorrhea, No Swallowing Difficulty Eyes: No Eye Pain, No Swelling, No Redness, No Foreign Body, No Discharge, No Vision Changes Cardiovascular : No Chest Pain, No SOB, No Dyspnea on Exertion, No Orthopnea, No Edema, No Palpitations Respiratory : No Cough, No Sputum, No Wheezing, No Smoke Exposure, No Dyspnea Gastrointestinal : No Nausea, No Vomiting, No Diarrhea, No Constipation, No abdominal Pain, No Hematochezia, No Melena Genitourinary : no irregular bleeding, No Dysuria, No Urinary Frequency, No Hematuria, No Urinary Incontinence, No Urgency, No Flank Pain, No Urinary Flow Changes, No Hesitancy Musculoskeletal : No joint pain, No Myalgias, No Joint Swelling Skin : Complaining of erythema/skin infection in the left great toe Neuro : No Weakness, No Numbness, No Paresthesias, No Loss of Consciousness, No Dizziness, No Headache Psych : No Anxiety/Panic, No Depression, No SI/HI/AH/VH, No Social Issues, Heme/Lymph: No Bruising, No Bleeding,No Lymphadenopathy Endocrine : No Polyuria, No Polydipsia, No Temperature Intolerance [facility] Past Medical History Medical History Acute on chronic anemia Acute on chronic combined systolic and diastolic congestive heart failure Asthma Bipolar 1 disorder BPH (benign prostatic hyperplasia) Cholelithiasis Closed wedge compression fracture of T9 vertebra COPD (chronic obstructive pulmonary disease) Diabetes mellitus, type 2 GERD (gastroesophageal reflux disease) Hyperlipidemia Peripheral arterial disease Peripheral neuropathy Substance abuse Surgical History History of amputation History of laminectomy History of transurethral resection of prostate Hx of BKA Family History Family History Father Chronic mental illness Hypertension Asthma Stroke Mother Asthma Diabetes Coronary artery disease Social History Social History Household Members: None Housing: Apartment Housing Other:: IN A LITTLE ROOM Do you presently have visiting nurse or other home services: 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[employer]; 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[employer]) Alcohol intake: never Patient Tobacco Use Status: Tobacco use Unknown Second Hand Smoke Exposure: No Use of substances other than those prescribed or required for medical reasons: Yes Substance Use Type: Marijuana Advance Directives: Yes Advance Directives on File: Yes Advance Directives Date on File: 11/24/20 service: No Current occupational status: disabled Physical Exam Vital Signs: Vital Signs: Last Vital Signs Temp 98.4 F 09/21/21 11:24 Pulse 69 09/21/21 11:24 Resp 16 09/21/21 11:24 BP 119/67 09/21/21 11:24 Pulse Ox 100 09/21/21 11:24 Body Mass Index 22.6 Const: Other: Appearance: Alert. Oriented X3. No acute distress. Eyes: Pupils equal, round and reactive to light. ENT: Pharynx normal. Neck: Normal inspection. Neck supple. No lymph nodes noted. No crepitus CVS: Normal heart rate and rhythm. Pulses normal. Normal S1 and S2 Respiratory: No respiratory distress. Breath sounds normal. No Wheezing. No rales Abdomen: Soft and nontender. No rigidity. No distention. Skin: Skin warm and dry. See extremities below Extremities: Patient has a BKA on the right side, the left great toe dorsal aspect is erythematous, there is an abrasion on the dorsal aspect of the toe, erythema from the toe to the mid foot Neuro: Oriented X 3. No motor deficit. No sensory deficit. Moving all extermities. No slurred speech. MDM - Extremity (Nontraumatic) Lab Data Result diagrams: 09/21/21 12:07 09/21/21 12:37 Labs: Lab Results 09/21/21 09/21/21 09/21/21 Range/Units 12:07 12:07 12:07 WBC 6.9 (4.8-10.8) X10*3/uL RBC 4.03 L (4.60-5.80) X10*6/uL Hgb 10.7 L (14.0-18.0) g/dl Hct 33.7 L (42.0-52.0) % MCV 83.6 (80.0-98.0) fL MCH 26.6 L (27.0-33.0) pg MCHC 31.8 (31.0-36.0) g/dl RDW 14.4 (11.0-16.0) % Plt Count 276 (160-400) X10*3/uL MPV 9.2 L (9.4-12.4) fL Immature Gran % (Auto) 0.3 (0.0-0.4) % Neut % (Auto) 66.9 (45-73) % Lymph % (Auto) 15.1 L (20-40) % [place] % (Auto) 13.4 H (2-11) % Eos % (Auto) 3.9 (0-4) % Baso % (Auto) 0.4 (0-2) % Lymph # (Auto) 1.0 L (1.2-4.9) X10*3/uL [place] # (Auto) 0.9 (0.1-1.2) X10*3/uL Eos # (Auto) 0.3 (0.0-0.4) X10*3/uL Baso # (Auto) 0.0 (0.0-0.2) X10*3/uL Abs Immat Gran (auto) 0.02 (0.00-0.03) X10*3/uL Absolute Neuts (auto) 4.6 (2.0-8.3) x10*3/uL Absolute Nucleated RBC 0.000 (0.0-0.012) X10*3/uL Nucleated RBC % (auto) 0.0 (0.0-0.2) /100WBC ESR (0-15) MM/HR PT 13.5 H (9.9-13.0) SEC INR 1.2 H (0.9-1.1) Sodium (135-145) mmol/L Potassium (3.3-5.1) mmol/L Chloride (96-108) mmol/L Carbon Dioxide (22-29) mmol/L Anion Gap (12-20) BUN (9-16) mg/dL Creatinine (0.5-1.4) mg/dL Estim Creat Clear Calc Estimated GFR POC Glucose (60-115) mg/dL Random Glucose (60-115) mg/dL Lactic Acid 1.6 (0.5-2.0) mmol/L Calcium (8.4-10.2) mg/dL Total Bilirubin (0.0-1.0) mg/dL Direct Bilirubin (0.0-0.5) mg/dL AST (5-37) U/L ALT (0-40) U/L Alkaline Phosphatase (39-117) U/L C-React Prot High Sens Total Protein (6.5-8.0) g/dL Albumin (3.5-5.0) g/dL 09/21/21 09/21/21 09/21/21 Range/Units 12:37 12:37 12:37 WBC (4.8-10.8) X10*3/uL RBC (4.60-5.80) X10*6/uL Hgb (14.0-18.0) g/dl Hct (42.0-52.0) % MCV (80.0-98.0) fL MCH (27.0-33.0) pg MCHC (31.0-36.0) g/dl RDW (11.0-16.0) % Plt Count (160-400) X10*3/uL MPV (9.4-12.4) fL Immature Gran % (Auto) (0.0-0.4) % Neut % (Auto) (45-73) % Lymph % (Auto) (20-40) % [place] % (Auto) (2-11) % Eos % (Auto) (0-4) % Baso % (Auto) (0-2) % Lymph # (Auto) (1.2-4.9) X10*3/uL [place] # (Auto) (0.1-1.2) X10*3/uL Eos # (Auto) (0.0-0.4) X10*3/uL Baso # (Auto) (0.0-0.2) X10*3/uL Abs Immat Gran (auto) (0.00-0.03) X10*3/uL Absolute Neuts (auto) (2.0-8.3) x10*3/uL Absolute Nucleated RBC (0.0-0.012) X10*3/uL Nucleated RBC % (auto) (0.0-0.2) /100WBC ESR 87 H (0-15) MM/HR PT (9.9-13.0) SEC INR (0.9-1.1) Sodium 136 (135-145) mmol/L Potassium 4.4 (3.3-5.1) mmol/L Chloride 102 (96-108) mmol/L Carbon Dioxide 25 (22-29) mmol/L Anion Gap 13 (12-20) BUN 12 (9-16) mg/dL Creatinine 0.77 (0.5-1.4) mg/dL Estim Creat Clear Calc 99.6 Estimated GFR > 60 POC Glucose (60-115) mg/dL Random Glucose 72 D (60-115) mg/dL Lactic Acid (0.5-2.0) mmol/L Calcium 9.0 D (8.4-10.2) mg/dL Total Bilirubin 0.5 (0.0-1.0) mg/dL Direct Bilirubin 0.2 (0.0-0.5) mg/dL AST 17 (5-37) U/L ALT 8 (0-40) U/L Alkaline Phosphatase 96 (39-117) U/L C-React Prot High Sens Cancelled Total Protein 7.7 (6.5-8.0) g/dL Albumin 3.7 D (3.5-5.0) g/dL 09/21/21 Range/Units 16:56 WBC (4.8-10.8) X10*3/uL RBC (4.60-5.80) X10*6/uL Hgb (14.0-18.0) g/dl Hct (42.0-52.0) % MCV (80.0-98.0) fL MCH (27.0-33.0) pg MCHC (31.0-36.0) g/dl RDW (11.0-16.0) % Plt Count (160-400) X10*3/uL MPV (9.4-12.4) fL Immature Gran % (Auto) (0.0-0.4) % Neut % (Auto) (45-73) % Lymph % (Auto) (20-40) % [place] % (Auto) (2-11) % Eos % (Auto) (0-4) % Baso % (Auto) (0-2) % Lymph # (Auto) (1.2-4.9) X10*3/uL [place] # (Auto) (0.1-1.2) X10*3/uL Eos # (Auto) (0.0-0.4) X10*3/uL Baso # (Auto) (0.0-0.2) X10*3/uL Abs Immat Gran (auto) (0.00-0.03) X10*3/uL Absolute Neuts (auto) (2.0-8.3) x10*3/uL Absolute Nucleated RBC (0.0-0.012) X10*3/uL Nucleated RBC % (auto) (0.0-0.2) /100WBC ESR (0-15) MM/HR PT (9.9-13.0) SEC INR (0.9-1.1) Sodium (135-145) mmol/L Potassium (3.3-5.1) mmol/L Chloride (96-108) mmol/L Carbon Dioxide (22-29) mmol/L Anion Gap (12-20) BUN (9-16) mg/dL Creatinine (0.5-1.4) mg/dL Estim Creat Clear Calc Estimated GFR POC Glucose 97 (60-115) mg/dL Random Glucose (60-115) mg/dL Lactic Acid (0.5-2.0) mmol/L Calcium (8.4-10.2) mg/dL Total Bilirubin (0.0-1.0) mg/dL Direct Bilirubin (0.0-0.5) mg/dL AST (5-37) U/L ALT (0-40) U/L Alkaline Phosphatase (39-117) U/L C-React Prot High Sens Total Protein (6.5-8.0) g/dL Albumin (3.5-5.0) g/dL Discharge Plan Discharge Clinical Impression: Cellulitis of foot, left Patient Disposition: Home, Self-Care Instructions: Cellulitis (ED) Additional Instructions: you refused to be admitted today. Please keep a close eye on your foot. Your symptoms worsen, you need to return to the emergency room immediately. Please follow-up with your primary care physician tomorrow. If you have any worsening or new symptoms, please return to the emergency room or call 911 Prescriptions: New fluticasone propion-salmeterol [Advair Diskus] 250-50 mcg/dose blister with device 1 inh inhalation BID Qty: 60 RF: 0 doxycycline hyclate 100 mg capsule 100 mg PO DAILY Qty: 14 RF: 0 cephalexin [Keflex] 750 mg capsule 750 mg PO BID Qty: 14 RF: 0 No Action albuterol sulfate 2.5 mg /3 mL (0.083 %) Solution For Nebulization 2.5 mg inhalation Q4H PRN (Reason: Shortness Of Breath Or Wheezing) RF: 0 (DME) lancets Misc MISCELLANEOUS RF: 0 (DME) blood-glucose meter [FreeStyle Purcell Lite] Kit MISCELLANEOUS RF: 0 (DME) cane Device MISCELLANEOUS RF: 0 (DME) FreeStyle Lite Strips RF: 0 magnesium oxide [MagOx] 400 mg (241.3 mg magnesium) Tablet 400 mg PO DAILY RF: 0 (DME) pen needle, diabetic Needle MISCELLANEOUS RF: 0 methadone 10 mg/mL Concentrate 50 mg PO QAM RF: 0 albuterol sulfate 90 mcg/actuation Hfa Aerosol Inhaler 2 puff INHALATION Q4H PRN (Reason: Shortness Of Breath) RF: 0 zinc sulfate 110 mg (25 mg zinc) Tablet 220 mg PO DAILY RF: 0 spironolactone 25 mg Tablet 12.5 mg PO DAILY RF: 0 sennosides [senna] 8.6 mg Tablet 8.6 mg PO BEDTIME PRN (Reason: Constipation) RF: 0 Lantus U-100 Insulin 100 unit/mL Solution 12 unit SUBCUT QPM RF: 0 cetirizine 10 mg Tablet 10 mg PO DAILY RF: 0 aspirin 81 mg Tablet,Delayed Release (Dr/Ec) 81 mg PO DAILY RF: 0 polyethylene glycol 3350 [Miralax] 17 gram/dose Powder 17 g PO DAILY RF: 0 carvedilol 6.25 mg Tablet 6.25 mg PO BID RF: 0 atorvastatin 20 mg Tablet 20 mg PO BEDTIME RF: 0 tamsulosin 0.4 mg Capsule 0.4 mg PO DAILY RF: 0 montelukast 10 mg Tablet 10 mg PO BEDTIME RF: 0 gabapentin 100 mg Capsule 200 mg PO TID RF: 0 ergocalciferol (vitamin D2) 1,250 mcg (50,000 unit) Capsule 1,250 mcg PO QWEEK RF: 0 fluticasone propionate [Flonase Allergy Relief] 50 mcg/actuation [place],Suspension 1 spray INTRANASAL DAILY RF: 0 clotrimazole 1 % Cream 1 applic TOPICAL TID RF: 0 Eucerin Cream 1 applic TOPICAL DAILY PRN (Reason: Dry Skin) RF: 0 doxycycline hyclate 100 mg capsule 100 mg PO DAILY Qty: 58 RF: 0 omeprazole 20 mg capsule,delayed release(DR/EC) 20 mg PO BID Qty: 60 RF: 0 Narcan 4 mg/actuation [place],Non-Aerosol 4 mg INTRANASAL Q3M PRN (Reason: OVER DOSE) RF: 0 furosemide 40 mg Tablet 40 mg PO DAILY Qty: 30 RF: 0 prednisone 50 mg tablet 50 mg PO DAILY Qty: 5 RF: 0 baclofen 5 mg tablet 5 mg PO TID Qty: 10 RF: 0 Interventions: ED Discharge Assessment Last Done: 09/21/21 18:44 Discharge Date/Time: 09/21/21 18:45
[2021-09-21 12:13] LABS: MANUAL DIFF FLAG NO
[2021-09-21 12:15] LABS: Basophils Percent Auto 0.4 % (0-2); Eosinophils Absolute Auto 0.3 X10*3/uL (0.0-0.4); Eosinophils Percent Auto 3.9 % (0-4); Hematocrit 33.7 % (42.0-52.0); Hemoglobin 10.7 g/dl (14.0-18.0); Imm Gran Abs Auto 0.02 X10*3/uL (0.00-0.03); Imm Gran Pct Auto 0.3 % (0.0-0.4); Lymphocytes Percent Auto 15.1 % (20-40); Mean Corpuscular HGB Conc 31.8 g/dl (31.0-36.0); Mean Corpuscular Hemoglobin 26.6 pg (27.0-33.0); Mean Corpuscular Volume 83.6 fL (80.0-98.0); Mean Platelet Volume 9.2 fL (9.4-12.4); Monocytes Absolute Auto 0.9 X10*3/uL (0.1-1.2); Monocytes Percent Auto 13.4 % (2-11); Neutrophils Absolute Auto 4.6 x10*3/uL (2.0-8.3); Neutrophils Percent Auto 66.9 % (45-73); Platelet Count 276 X10*3/uL (160-400); Red Blood Count 4.03 X10*6/uL (4.60-5.80); Red Cell Distribution Width 14.4 % (11.0-16.0); White Blood Count 6.9 X10*3/uL (4.8-10.8)
[2021-09-21 12:25] LABS: Lactic Acid 1.6 mmol/L (0.5-2.0)
[2021-09-21 12:31] LABS: INTERNATIONAL NORM RATIO 1.2 (0.9-1.1); Prothrombin Time 13.5 SEC (9.9-13.0)
[2021-09-21 13:14] LABS: Alanine Aminotransferase 8 U/L (0-40); Albumin Level 3.7 g/dL (3.5-5.0); Alkaline Phosphatase 96 U/L (39-117); Anion Gap 13 (12-20); Aspartate Amino Transferase 17 U/L (5-37); Bilirubin Direct 0.2 mg/dL (0.0-0.5); Bilirubin Total 0.5 mg/dL (0.0-1.0); Blood Urea Nitrogen 12 mg/dL (9-16); Carbon Dioxide 25 mmol/L (22-29); Chloride 102 mmol/L (96-108); Creatinine Clr Calc Pharmacy 99.6; Estimated Glomerular Filt Rate > 60; Glucose Random 72 mg/dL (60-115); Potassium 4.4 mmol/L (3.3-5.1); Sodium 136 mmol/L (135-145); Total Protein 7.7 g/dL (6.5-8.0)
[2021-09-21 13:49] LABS: Erythrocyte Sedimentation Rate 87 MM/HR (0-15)
[2021-09-21] MEDS: cephALEXin 500 MG CAPSULE PO (15:04)
[2021-09-21 16:59] LABS: Glucose, Whole Blood 97 mg/dL (60-115)
== END 2021-09-21 18:45 | disposition home or self-care (01) ==
PROVIDERS: Emergency Provider Emergency Medicine; PCP Family Medicine
DX: L03.116 Cellulitis of left lower limb (principal); M79.675 Pain in left toe(s); E11.9 Type 2 diabetes mellitus without complications
CPT/HCPCS: 36415; 73630; 80048; 80076; 82947; 83605; 85025; 85610; 85652; 86141; 93005; 99283; 99285

== ENCOUNTER 2021-10-07 23:30 | Inpatient (IN) | payer MEDICAID, SELFPAY ==
--- NOTE | ~2021-10-07 | XR_ITS ---
EXAMINATION: XR CHEST CLINICAL INFORMATION: Shortness of breath. COMPARISON: 07/20/2021. TECHNIQUE: AP view of the chest was obtained. FINDINGS: Interstitial prominence with patchy bilateral airspace opacities. No pleural effusion or pneumothorax. Stable prominence of the cardiomediastinal silhouette. No acute osseous findings. XR/XR chest 1V IMPRESSION: Interstitial prominence with somewhat additional patchy superimpose airspace opacities which could represent a combination of pulmonary edema or atypical infection. Correlate clinically and follow-up to ensure resolution.
--- NOTE | ~2021-10-07 | CT_ITS ---
EXAMINATION: CT LEFT FOOT WITHOUT CONTRAST CLINICAL INFORMATION: Foot infection COMPARISON: Radiographs 09/21/2021, MRI 11/27/2020 TECHNIQUE: No intravenous contrast was utilized. Multidetector helical imaging was performed through the left foot. Coronal and sagittal reformatted images were created. DOSE LOWERING TECHNIQUES: This CT examination was performed using dose optimization techniques as appropriate, variously including the following: - Automated exposure control - Adjustment of mA and/or kV according to patient size (this includes techniques or standardized protocols for targeted exams were dose is matched to indication/reason for exam; i.e. extremities or head) - Use of iterative reconstruction technique DLP: 127 mGy-cm FINDINGS: Osseous alignment throughout the foot is anatomic. No acute fracture is seen. There is cortical irregularity along the posterior calcaneal tuberosity, at the location of prior osteomyelitis from MRI 11/27/2020. Mild degenerative changes are seen throughout the hindfoot and midfoot. Plantar calcaneal spur is present. There is extensive vascular calcification. There is subcutaneous edema throughout the ankle and foot. No soft tissue gas is seen. CT/CT foot LT wo con IMPRESSION: Cortical irregularity along the posterior calcaneus, at the site of osteomyelitis identified on MRI 11/27/2020. Current appearance may reflect chronic sequelae of infection, though assessment for acute osteomyelitis would be better performed with MRI. Subcutaneous edema may represent cellulitis.
--- NOTE | ~2021-10-07 | CT_ITS ---
EXAM: NONCONTRAST CT OF THE CHEST; NONCONTRAST CT OF THE ABDOMEN AND PELVIS INDICATION: Shortness of breath, hypoxia, left lower quadrant tenderness COMPARISON: 01/02/2021 TECHNIQUE: No IV contrast was utilized. Multidetector helical imaging was performed through the chest, abdomen, and pelvis. Coronal and sagittal reformatted images were created at the technologist workstation. DOSE LOWERING TECHNIQUES: This CT examination was performed using dose optimization techniques as appropriate, variously including the following: - Automated exposure control - Adjustment of mA and/or kV according to patient size (this includes techniques or standardized protocols for targeted exams were dose is matched to indication/reason for exam; i.e. extremities or head) - Use of iterative reconstruction technique DLP: 1326 mGy-cm FINDINGS: Chest: The posterior wall of the trachea is collapsed, suggestive of tracheomalacia. There is interlobular septal thickening and bronchial wall thickening bilaterally suggestive of pulmonary edema. Curvilinear opacities in the lung bases are suggestive of atelectasis. No pneumothorax. Trace right pleural effusion is noted. Visualized thyroid gland is unremarkable. There are enlarged mediastinal lymph nodes in the subcarinal, AP window, and paratracheal regions measuring up to approximately 1.7 cm in short axis dimension; this is increased from prior and may be reactive. There is cardiomegaly without pericardial effusion. Coronary artery calcifications are present. No axillary lymphadenopathy is present. Abdomen/Pelvis: The liver is homogeneous in attenuation without intrahepatic biliary ductal dilatation. Cholelithiasis is noted. The unenhanced spleen, pancreas, and adrenal glands are within normal limits. The unenhanced kidneys are unremarkable without hydronephrosis. No obstructing renal or ureteral calculi are present. The urinary bladder is unremarkable. The small and large bowel are unremarkable without evidence of obstruction or pericolonic inflammatory change. The appendix is unremarkable. No free fluid or free air is identified. There is extensive vascular calcification. Prominent lymph nodes in the periportal region are similar to prior. Small fat-containing right inguinal hernia noted. Scattered endplate osteophytic present in the thoracolumbar spine. There is facet arthropathy of the lower lumbar spine. CT/CT abdomen pelvis wo con IMPRESSION: 1. Pulmonary findings suspicious for interstitial edema. 2. Mediastinal lymphadenopathy which may be reactive in the setting of edema. A malignant etiology, however, can also have this appearance. 3. Cardiomegaly. Trace right pleural effusion. 4. No acute findings identified in the abdomen/pelvis. 5. Cholelithiasis.
[2021-10-07 23:38] VITALS: BP 150/86; PULSE 100; RESP 16; TEMP 36.8; O2SAT 99; BMI 22.4
[2021-10-07 23:43] VITALS: PULSE 97; RESP 16; O2SAT 98
--- NOTE | 2021-10-07 23:57 | ECG_ITS ---
Test Reason : DYSPNEA Blood Pressure : / mmHG Vent. Rate : 084 BPM Atrial Rate : 084 BPM P-R Int : 188 ms QRS Dur : 114 ms QT Int : 408 ms P-R-T Axes : 032 -30 117 degrees QTc Int : 482 ms Normal sinus rhythm Left axis deviation Intra-ventricular conduction delay Left ventricular hypertrophy with repolarization abnormality ( R in aVL , Watson product ) Prolonged QT Abnormal ECG When compared with ECG of 21-SEP-2021 11:07, No significant change was found Referred By: Steffi Jordan Electronically Signed By:CRISTIAN SU MD
[2021-10-08] VITALS (13 sets, daily range): BP systolic 90–157; BP diastolic 40–99; PULSE 56–97; RESP 11–18; TEMP 36.7–37.1; O2SAT 2–100; BMI 25.2
[2021-10-08] MEDS: Albuterol/Iprat 2.5/0.5MG 3 ML AMPUL.NEB INHALE (00:07)
--- NOTE | 2021-10-08 00:07 | ED.SOB ---
HPI - SOB/Dyspnea General Chief Complaint: Dyspnea Stated Complaint: sob Time Seen by Provider: 10/07/21 23:43 Source: patient and EMS Mode of arrival: EMS Limitations: no limitations History of Present Illness HPI Narrative: 51-year-old chronically ill male with a history of CHF with EF 15%, asthma/COPD, peripheral arterial disease status post right BKA, diabetes, GERD, bipolar, chronic anemia, HX GI bleed, chronic left great toe wound, opiate use disorder on methadone who presents to the ER via EMS complaining of shortness of breath for the last 4 days, worse when lying down. He states when he tried to go to bed tonight he was gasping for air and he heard wheezing. He states he needs a nebulizer at home however his insurance did not cover it. He is asking for a nebulizer treatment on arrival. He reports a dry hacking cough with no sputum production. He is fully vaccinated work for COVID-19. No known sick contacts. 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 He has been compliant with all of his medications including his Lasix. Cannot recall any weight gain. He reports his chronic left toe wound has been having increased pain last couple of days as well. No fevers at home. MD elicited complaint: shortness of breath and cough Pertinent past history: COPD, asthma, congestive heart failure and diabetes Onset (ago): day(s) (4) Context: recent illness Timing: intermittent Severity: moderate Exacerbating factors: lying flat and coughing Relieving factors: rest and bronchodilators Known history of: COPD, asthma, congestive heart failure and diabetes Associated symptoms: cough, wheezing, orthopnea and chest congestion Treatment prior to arrival: none Related Data Home oxygen amount: none Home Medications Medication Instructions Recorded Confirmed FreeStyle Lite Strips 08/12/20 02/13/21 albuterol sulfate 2.5 mg INHALATION Q4H PRN 08/12/20 02/13/21 albuterol sulfate 90 mcg/actuation 2 puff INHALATION Q4H PRN 08/12/20 02/13/21 aerosol inhaler blood-glucose meter (FreeStyle 08/12/20 02/13/21 [place] Lite) cane 08/12/20 02/13/21 lancets 08/12/20 02/13/21 magnesium oxide 400 mg (241.3 mg 400 mg PO DAILY 08/12/20 02/13/21 magnesium) tablet (MagOx) methadone 10 mg/mL oral concentrate 50 mg PO QAM 08/12/20 02/13/21 pen needle, diabetic 08/12/20 02/13/21 aspirin 81 mg tablet,delayed 81 mg PO DAILY 08/14/20 02/13/21 release atorvastatin 20 mg tablet 20 mg PO BEDTIME 08/14/20 02/13/21 carvedilol 6.25 mg tablet 6.25 mg PO BID 08/14/20 02/13/21 cetirizine 10 mg tablet 10 mg PO DAILY 08/14/20 02/13/21 clotrimazole 1 % topical cream 1 applic TOPICAL TID 08/14/20 02/13/21 ergocalciferol (vitamin D2) 1,250 1,250 mcg PO QWEEK 08/14/20 02/13/21 mcg (50,000 unit) capsule fluticasone propionate 50 1 spray INTRANASAL DAILY 08/14/20 02/13/21 mcg/actuation nasal spray,suspension (Flonase Allergy Relief) gabapentin 100 mg capsule 200 mg PO TID 08/14/20 02/13/21 insulin glargine 100 unit/mL 12 unit SUBCUT QPM 08/14/20 02/13/21 subcutaneous solution (Lantus U-100 Insulin) lanolin alcohols-mineral 1 applic TOPICAL DAILY PRN 08/14/20 02/13/21 oil-w.petrolatum-ceresin topical cream (Eucerin) montelukast 10 mg tablet 10 mg PO BEDTIME 08/14/20 02/13/21 polyethylene glycol 3350 17 17 g PO DAILY 08/14/20 02/13/21 gram/dose oral powder (Miralax) sennosides 8.6 mg tablet (senna) 8.6 mg PO BEDTIME PRN 08/14/20 02/13/21 spironolactone 25 mg tablet 12.5 mg PO DAILY 08/14/20 02/13/21 tamsulosin 0.4 mg capsule 0.4 mg PO DAILY 08/14/20 02/13/21 zinc sulfate 25 mg zinc (110 mg) 220 mg PO DAILY 08/14/20 02/13/21 tablet naloxone 4 mg/actuation nasal 4 mg INTRANASAL Q3M PRN 11/24/20 02/13/21 spray (Narcan) Previous Rx's Medication Instructions Recorded furosemide 40 mg tablet 40 mg PO DAILY #30 tab 12/02/20 doxycycline hyclate 100 mg capsule 100 mg PO DAILY #58 cap 02/16/21 omeprazole 20 mg capsule,delayed 20 mg PO BID #60 cap 02/16/21 release baclofen 5 mg tablet 5 mg PO TID #10 tab 07/20/21 prednisone 50 mg tablet 50 mg PO DAILY #5 tab 07/20/21 cephalexin 750 mg capsule (Keflex) 750 mg PO BID #14 cap 09/21/21 doxycycline hyclate 100 mg capsule 100 mg PO DAILY #14 cap 09/21/21 fluticasone 250 mcg-salmeterol 50 1 inh INHALATION BID #60 ea 09/21/21 mcg/dose blistr powdr for inhalation (Advair Diskus) Allergies Allergy/AdvReac Type Severity Reaction Status Date / Time ertapenem Allergy Intermediate Hives Verified 07/20/21 01:06 vancomycin [VANCOMYCIN] Allergy Intermediate HIVES Verified 07/20/21 01:06 Chocolate Allergy Unknown Rash Verified 07/20/21 01:06 ciprofloxacin [From CIPRO] Allergy Unknown SWELLING Verified 07/20/21 01:06 hydrocortisone [Cipro HC] Allergy Unknown Unknown Verified 07/20/21 01:06 sulfamethoxazole Allergy Unknown rash Verified 07/20/21 01:06 [From BACTRIM] trimethoprim [From BACTRIM] Allergy Unknown rash Verified 07/20/21 01:06 turkey [TURKEY] Allergy Unknown RASH Verified 07/20/21 01:06 Review of Systems Review of Systems: Constitutional: No Fever, No Chills ENT/Mouth: No sore throat, No Rhinorrhea, No Swallowing Difficulty Cardiovascular: No Chest Pain, + SOB, + Orthopnea, No Edema Respiratory: + Cough, No Sputum, + Wheezing, No dyspnea Gastrointestinal: No Nausea, No Vomiting, No Diarrhea, No abdominal Pain, No Hematochezia, No Melena Genitourinary: No Dysuria, No Urinary Frequency, No Hematuria Musculoskeletal: No joint pain, No Myalgias Skin: + Skin Lesions (left foot wound), No rash Neuro: No Weakness, No Numbness, No Dizziness, No Headache Psych: + Anxiety/Panic, No Depression Heme/Lymph: No Bruising, No Lymphadenopathy Endocrine: No Polyuria, No Polydipsia [facility] Past Medical History Medical History Acute on chronic anemia Acute on chronic combined systolic and diastolic congestive heart failure Asthma Bipolar 1 disorder BPH (benign prostatic hyperplasia) Cholelithiasis Closed wedge compression fracture of T9 vertebra COPD (chronic obstructive pulmonary disease) Diabetes mellitus, type 2 GERD (gastroesophageal reflux disease) Hyperlipidemia Peripheral arterial disease Peripheral neuropathy Substance abuse Surgical History History of amputation History of laminectomy History of transurethral resection of prostate Hx of BKA Family History Family History Father Chronic mental illness Hypertension Asthma Stroke Mother Asthma Diabetes Coronary artery disease Social History Social History Household Members: None Housing: Apartment Housing Other:: IN A LITTLE ROOM Do you presently have visiting nurse or other home services: Yes ([employer]; 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 Oriented X3. No acute distress. Eyes: Pupils equal, round and reactive to light. ENT: Pharynx normal. Very poor dentition. Moist mucous membranes. Neck: Normal inspection. Neck supple. CVS: Normal heart rate and rhythm. Pulses normal. Respiratory: No respiratory distress. Breath sounds coarse throughout without any rhonchi or wheezes. Able to speak in complete sentences. Abdomen: Soft and nontender. +BS x4 Skin: Skin warm and dry. Normal skin color. Normal skin turgor. No rashes. Extremities: Status post right BKA, 1+ lower extremity pitting edema to the left leg, chronic appearing nonhealing wound to the left great toe with scabbing and mild surrounding erythema, no drainage of pus. Minimal warmth. No tenderness. Neuro: Oriented X 3. No motor deficit. Poor sensation of the left foot. Course Course Course Narrative: 51-year-old chronically ill male with significant comorbidities presents to the ER with shortness of breath for the last 4 days. He reports a dry cough and orthopnea today. Concern for CHF exacerbation over COPD with no overt wheezing on examination today. He is course so will give a DuoNeb now and reassess. No hypoxia or distress at this time. Will get a COVID now, chest x-ray and lab workup. Reevaluation(s) Reevaluation #1: Chest x-ray showing interstitial prominence which could be a combination of pulmonary edema or atypical infection as the airspace opacities seen to be somewhat patchy. His lab workup is returning consistent with CHF exacerbation with a BNP of 1800. Previously was 800 range. A nursing evaluation patient was continuing to complain of shortness of breath after his DuoNeb administration, he was found to be saturating 87% on room air. He was placed on 2 L nasal cannula with improvement in his SpO2. 80 mg IV Lasix ordered for now along with oral potassium and IV magnesium. Reevaluation #2: Spoke with Dr. Mccullough about admission to the hospital. Patient agreeable with plan. Upon Dr. Mccullough's assessment patient is now complaining of left lower quadrant pain and has tenderness on examination. He is requesting a CT scan of the abdomen which has been ordered. Will add CT of the chest to further evaluate the parenchyma of the lungs given his abnormal chest x-ray. Patient to be admitted to the hospital for further management. MDM - SOB/Dyspnea Differential Diagnosis Differential diagnosis: Likely acute exacerbation of chronic obstructive airways disease, congestive heart failure, pneumonia, asthma with exacerbation, pulmonary embolism, pleural effusion, sleep apnea and anemia Medical Records Attestation: I reviewed the patient's medical records. Lab Data Attestation: I reviewed the patient's lab results. Result diagrams: 10/08/21 00:30 10/08/21 00:30 Labs: Lab Results 10/08/21 10/08/21 10/08/21 Range/Units 00:17 00:30 00:30 Sodium 135 (135-145) mmol/L Potassium 3.9 (3.3-5.1) mmol/L Chloride 98 (96-108) mmol/L Carbon Dioxide 28 (22-29) mmol/L Anion Gap 13 (12-20) BUN 13 (9-16) mg/dL Creatinine 0.77 (0.5-1.4) mg/dL Estim Creat Clear Calc 98.9 Estimated GFR > 60 Random Glucose 144 H D (60-115) mg/dL Calcium 9.6 D (8.4-10.2) mg/dL Magnesium 1.5 L (1.6-2.6) mg/dL Total Bilirubin 0.4 (0.0-1.0) mg/dL Direct Bilirubin 0.2 (0.0-0.5) mg/dL AST 18 (5-37) U/L ALT 8 (0-40) U/L Alkaline Phosphatase 113 (39-117) U/L B-Natriuretic Peptide 1888 H (<100) pg/mL Total Protein 7.9 (6.5-8.0) g/dL Albumin 3.7 (3.5-5.0) g/dL COVID-19 (JAMILA) Negative (Negative) COVID-19 Clin Com See Note ECG Data Attestation: I personally reviewed and interpreted this ECG as follows: ECG interpretation date: 10/08/21 ECG interpretation time: 00:13 Prior ECG tracings: available for review Interpretation: Normal sinus rhythm, 84 beats per minute, normal MA interval 188 ms, LVH, when compared to prior EKG no significant change is identified. Critical Care Time Critical Care Time Critical Care Time: Yes Total Critical Care Time: 42 Attestation: I have personally provided critical care time exclusive of time spent on separately billable procedures. Time includes review of lab data, radiology results, discussion with consultants/hospitalist, and monitoring for potential decompensation. Intervention performed as documented. Discharge Plan Discharge Clinical Impression: Acute respiratory failure with hypoxia, Acute exacerbation of CHF (congestive heart failure) Patient Disposition: Admitted As Inpatient Prescriptions: No Action albuterol sulfate 2.5 mg /3 mL (0.083 %) Solution For Nebulization 2.5 mg inhalation Q4H PRN (Reason: Shortness Of Breath Or Wheezing) RF: 0 (DME) lancets Misc MISCELLANEOUS RF: 0 (DME) blood-glucose meter [FreeStyle [place] Lite] Kit MISCELLANEOUS RF: 0 (DME) cane Device MISCELLANEOUS RF: 0 (DME) FreeStyle Lite Strips RF: 0 magnesium oxide [MagOx] 400 mg (241.3 mg magnesium) Tablet 400 mg PO DAILY RF: 0 (DME) pen needle, diabetic Needle MISCELLANEOUS RF: 0 methadone 10 mg/mL Concentrate 50 mg PO QAM RF: 0 albuterol sulfate 90 mcg/actuation Hfa Aerosol Inhaler 2 puff INHALATION Q4H PRN (Reason: Shortness Of Breath) RF: 0 zinc sulfate 110 mg (25 mg zinc) Tablet 220 mg PO DAILY RF: 0 spironolactone 25 mg Tablet 12.5 mg PO DAILY RF: 0 sennosides [senna] 8.6 mg Tablet 8.6 mg PO BEDTIME PRN (Reason: Constipation) RF: 0 Lantus U-100 Insulin 100 unit/mL Solution 12 unit SUBCUT QPM RF: 0 cetirizine 10 mg Tablet 10 mg PO DAILY RF: 0 aspirin 81 mg Tablet,Delayed Release (Dr/Ec) 81 mg PO DAILY RF: 0 polyethylene glycol 3350 [Miralax] 17 gram/dose Powder 17 g PO DAILY RF: 0 carvedilol 6.25 mg Tablet 6.25 mg PO BID RF: 0 atorvastatin 20 mg Tablet 20 mg PO BEDTIME RF: 0 tamsulosin 0.4 mg Capsule 0.4 mg PO DAILY RF: 0 montelukast 10 mg Tablet 10 mg PO BEDTIME RF: 0 gabapentin 100 mg Capsule 200 mg PO TID RF: 0 ergocalciferol (vitamin D2) 1,250 mcg (50,000 unit) Capsule 1,250 mcg PO QWEEK RF: 0 fluticasone propionate [Flonase Allergy Relief] 50 mcg/actuation [place],Suspension 1 spray INTRANASAL DAILY RF: 0 clotrimazole 1 % Cream 1 applic TOPICAL TID RF: 0 Eucerin Cream 1 applic TOPICAL DAILY PRN (Reason: Dry Skin) RF: 0 doxycycline hyclate 100 mg capsule 100 mg PO DAILY Qty: 58 RF: 0 omeprazole 20 mg capsule,delayed release(DR/EC) 20 mg PO BID Qty: 60 RF: 0 Narcan 4 mg/actuation [place],Non-Aerosol 4 mg INTRANASAL Q3M PRN (Reason: OVER DOSE) RF: 0 furosemide 40 mg Tablet 40 mg PO DAILY Qty: 30 RF: 0 prednisone 50 mg tablet 50 mg PO DAILY Qty: 5 RF: 0 baclofen 5 mg tablet 5 mg PO TID Qty: 10 RF: 0 fluticasone propion-salmeterol [Advair Diskus] 250-50 mcg/dose blister with device 1 inh inhalation BID Qty: 60 RF: 0 doxycycline hyclate 100 mg capsule 100 mg PO DAILY Qty: 14 RF: 0 cephalexin [Keflex] 750 mg capsule 750 mg PO BID Qty: 14 RF: 0
[2021-10-08 00:46] LABS: Basophils Percent Auto 0.4 % (0-2); Imm Gran Abs Auto 0.02 X10*3/uL (0.00-0.03); Imm Gran Pct Auto 0.3 % (0.0-0.4); NRBC Pct Auto 0.3 /100WBC (0.0-0.2); PLT CLUMP 1; SCAN SMEAR FLAG 1
[2021-10-08 00:48] LABS: Eosinophils Absolute Auto 0.2 X10*3/uL (0.0-0.4); Eosinophils Percent Auto 2.7 % (0-4); Hematocrit 34.8 % (42.0-52.0); Hemoglobin 11.3 g/dl (14.0-18.0); Lymphocytes Absolute Auto 1.1 X10*3/uL (1.2-4.9); Lymphocytes Percent Auto 15.3 % (20-40); Mean Corpuscular HGB Conc 32.5 g/dl (31.0-36.0); Mean Corpuscular Volume 83.1 fL (80.0-98.0); Monocytes Absolute Auto 0.9 X10*3/uL (0.1-1.2); Monocytes Percent Auto 12.1 % (2-11); Neutrophils Absolute Auto 5.1 x10*3/uL (2.0-8.3); Neutrophils Percent Auto 69.2 % (45-73); Platelet Count 271 X10*3/uL (160-400); Red Blood Count 4.19 X10*6/uL (4.60-5.80); Red Cell Distribution Width 14.3 % (11.0-16.0); White Blood Count 7.4 X10*3/uL (4.8-10.8)
[2021-10-08 00:54] LABS: COVID-19 Test Negative (Negative)
[2021-10-08 00:55] LABS: Alanine Aminotransferase 8 U/L (0-40); Albumin Level 3.7 g/dL (3.5-5.0); Alkaline Phosphatase 113 U/L (39-117); Anion Gap 13 (12-20); Aspartate Amino Transferase 18 U/L (5-37); Bilirubin Direct 0.2 mg/dL (0.0-0.5); Bilirubin Total 0.4 mg/dL (0.0-1.0); Blood Urea Nitrogen 13 mg/dL (9-16); Calcium 9.6 mg/dL (8.4-10.2); Carbon Dioxide 28 mmol/L (22-29); Chloride 98 mmol/L (96-108); Creatinine Clr Calc Pharmacy 98.9; Estimated Glomerular Filt Rate > 60; Glucose Random 144 mg/dL (60-115); Magnesium 1.5 mg/dL (1.6-2.6); Potassium 3.9 mmol/L (3.3-5.1); Sodium 135 mmol/L (135-145); Total Protein 7.9 g/dL (6.5-8.0)
--- NOTE | 2021-10-08 00:58 | PC.NURSE ---
pt c/o SOB. upon entering room 02 sat read 87% (room air)but did not have good pleth. 02 sat quickly increased to 95-96% with good pleth. pt placed on 2L NC, sat now 99% on 2L nc provider notified
[2021-10-08 01:00] LABS: B Type Natriuretic Peptide 1888 pg/mL (<100)
[2021-10-08 01:01] LABS: MANUAL DIFF FLAG NO
[2021-10-08] MEDS: Furosemide 100 MG/10 ML VIAL 80 MG IVPUSH (01:18)
[2021-10-08] MEDS: Magnesium Sulfate/H2O 2 GM/50 ML PIGGYBACK IV (01:27)
[2021-10-08 01:29] LABS: Troponin-I High Sensitivity 21.7 ng/L (<3.5-35.0)
[2021-10-08] MEDS: Potassium Chloride ER 20 MEQ TAB.ER.PRT 40 MEQ PO (02:09)
[2021-10-08 02:20] LABS: Appearance Urine CLEAR; Color Urine YELLOW; Glucose Urine UA NEG (NEG); Leukocyte Esterase Urine NEG (NEG); Nitrite Urine NEG (NEG); PH 6.5 (5.0-8.0); UACC Culture Trigger NO; Urine Blood TRACE (NEG); Urine Ketones NEG (NEG); Urine Protein 2+ MG/DL (NEG-TRACE)
[2021-10-08 02:27] LABS: Bacteria Urine 1+ /LPF; Mucus Urine 1+ /LPF; Squamous Epithelial Cell Urine 1+ /LPF
[2021-10-08 02:28] LABS: Sperm Urine NOTED
--- NOTE | 2021-10-08 03:02 | PC.NURSE ---
350ml emptied from bedside urinal
--- NOTE | 2021-10-08 03:37 | PC.NURSE ---
400cc emptied from bedside urinal
--- NOTE | 2021-10-08 03:55 | P.HPHOSP_ITS ---
History of Present Illness Date of Service: 10/08/21 Chief Complaint: Shortness of breath 51-year-old male with past medical history of hypertension, hyperlipidemia, diabetes, systolic CHF with EF of 15-20%, chronic anemia, bipolar disorder, BPH, peripheral vascular disease, history of substance abuse, opiate dependence, benign compression wedge fracture, COPD, GERD presented to the hospital today with a chief complaint of shortness of breath. Patient reported that over the past 4 days he has been having shortness of breath and dyspnea on exertion; also complains of orthopnea and unable to lie down flat. The symptoms were not improving decided to come to the ER for further evaluation. Denies any chest pain palpitations lightheadedness or dizziness. Patient also complains of left great toe pain, redness. Mentioned that he was here in the hospital few days ago and was given oral antibiotics which she finished but he continued to have the pain and redness. Denies any urinary symptoms. Denies any cough or sputum production. Patient also complains of mild intermittent abdominal discomfort. Review of all other systems is negative except mentioned above ER course: Patient noted to be mildly hypoxic at 87%, not in respiratory distress, placed on supplemental oxygen, noted to have rales and crackles; on labs noted to have elevated proBNP; given Lasix; chest x-ray was abnormal-CT c hest was done which showed mediastinal lymphadenopathy concern for malignancy, cardiomegaly, pulmonary edema, atelectasis; CT abdomen showed no acute process; admitted to the hospital for further management. [facility] Medical History Acute on chronic anemia Acute on chronic combined systolic and diastolic congestive heart failure Asthma Bipolar 1 disorder BPH (benign prostatic hyperplasia) Cholelithiasis Closed wedge compression fracture of T9 vertebra COPD (chronic obstructive pulmonary disease) Diabetes mellitus, type 2 GERD (gastroesophageal reflux disease) Hyperlipidemia Peripheral arterial disease Peripheral neuropathy Substance abuse Family History Father Chronic mental illness Hypertension Asthma Stroke Mother Asthma Diabetes Coronary artery disease Pertinent family history: As above Surgical History History of amputation History of laminectomy History of transurethral resection of prostate Hx of BKA Social History Household Members: None Housing: Apartment Housing Other:: IN A LITTLE ROOM Do you presently have visiting nurse or other home services: Yes ([employer]; 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[employer]) Alcohol intake: never Patient Tobacco Use Status: Tobacco use Unknown Second Hand Smoke Exposure: No Substance Use Type: Marijuana Advance Directives: Yes Advance Directives on File: Yes Advance Directives Date on File: 11/24/20 service: No Current occupational status: disabled Meds Allergies Allergy/AdvReac Type Severity Reaction Status Date / Time ertapenem Allergy Intermediate Hives Verified 07/20/21 01:06 vancomycin [VANCOMYCIN] Allergy Intermediate HIVES Verified 07/20/21 01:06 Chocolate Allergy Unknown Rash Verified 07/20/21 01:06 ciprofloxacin [From CIPRO] Allergy Unknown SWELLING Verified 07/20/21 01:06 hydrocortisone [Cipro HC] Allergy Unknown Unknown Verified 07/20/21 01:06 sulfamethoxazole Allergy Unknown rash Verified 07/20/21 01:06 [From BACTRIM] trimethoprim [From BACTRIM] Allergy Unknown rash Verified 07/20/21 01:06 turkey [TURKEY] Allergy Unknown RASH Verified 07/20/21 01:06 Active Medications: Current Medications Albuterol/Ipratropium (Albuterol/Iprat 2.5/0.5mg 3 Ml Ampul.Neb) 3 ml INHALE RQ4H PRN PRN Reason: Shortness of Breath/Wheezing Dextrose (Dextrose 50 % 25 Gm/50 Ml Vial) 25 gm IVPUSH Q15M PRN; Protocol PRN Reason: per Hypoglycemia Standing Ord. Enoxaparin Sodium (Enoxaparin Sodium 40 Mg/0.4 Ml Syringe) 40 mg SUBCUT Q24H VENTURA Furosemide (Furosemide 40 Mg/4 Ml Vial) 80 mg IVPUSH DAILY VENTURA; Protocol Glucose (Glucose Gel 15 Gm Gel..Gram.) 15 gm PO Q15M PRN; Protocol PRN Reason: per Hypoglycemia Standing Ord. Cefepime HCl 1 gm/ Sodium (Chloride) 50 mls @ 100 mls/hr IV Q8H V[place]URA Doxycycline Hyclate 100 mg/ (Sodium Chloride) 250 mls @ 166.67 mls/hr IV Q12H [facility]UR[facility] Insulin Human Lispro (Insulin Lispro 100 Unit/Ml 3 Ml Vial) 0 unit SUBCUT QIDACHS VENTURA; Protocol Melatonin (Melatonin 3 Mg Tablet) 6 mg PO BEDTIME PRN PRN Reason: Insomnia Pharmacy Consult (Consult Rx Perform Med Rec) 1 each MISCELLANE ONCE PRN PRN Reason: Consult order Senna (Sennosides 8.6 Mg Tablet) 17.2 mg PO BEDTIME PRN PRN Reason: Constipation Sodium Chloride (0.9 % Sodium Chloride Flush 3 Ml Syringe) 3 ml IVFLUSH [facility] Home Medications Medication Instructions Recorded Confirmed Last Taken Type FreeStyle Lite Strips 08/12/20 02/13/21 Unknown History albuterol sulfate 2.5 mg INHALATION Q4H PRN 08/12/20 10/08/21 Unknown History albuterol sulfate 90 mcg/actuation 2 puff INHALATION Q4H PRN 08/12/20 10/08/21 Unknown History aerosol inhaler blood-glucose meter (FreeStyle 08/12/20 02/13/21 Unknown History [place] Lite) cane 08/12/20 02/13/21 Unknown History lancets 08/12/20 02/13/21 Unknown History methadone 10 mg/mL oral concentrate 50 mg PO QAM 08/12/20 10/08/21 01/02/21 History pen needle, diabetic 08/12/20 02/13/21 Unknown History aspirin 81 mg tablet,delayed 81 mg PO DAILY 08/14/20 10/08/21 Unknown History release atorvastatin 20 mg tablet 20 mg PO BEDTIME 08/14/20 10/08/21 Unknown History carvedilol 6.25 mg tablet 6.25 mg PO BID 08/14/20 10/08/21 Unknown History cetirizine 10 mg tablet 10 mg PO DAILY 08/14/20 10/08/21 Unknown History fluticasone propionate 50 1 spray INTRANASAL DAILY 08/14/20 10/08/21 Unknown History mcg/actuation nasal spray,suspension (Flonase Allergy Relief) gabapentin 100 mg capsule 200 mg PO TID 08/14/20 10/08/21 Unknown History insulin glargine 100 unit/mL 12 unit SUBCUT QPM 08/14/20 10/08/21 Unknown History subcutaneous solution (Lantus U-100 Insulin) montelukast 10 mg tablet 10 mg PO BEDTIME 08/14/20 10/08/21 Unknown History spironolactone 25 mg tablet 12.5 mg PO DAILY 08/14/20 10/08/21 Unknown History tamsulosin 0.4 mg capsule 0.4 mg PO DAILY 08/14/20 10/08/21 Unknown History clopidogrel 75 mg tablet 1 tab PO QAM 10/08/21 10/08/21 Unknown History Physical Exam Vital Signs and Narrative: Vital Signs: Last Vital Signs Temp 98.2 F 10/07/21 23:38 Pulse 96 10/08/21 03:34 Resp 16 10/08/21 03:34 BP 151/87 H 10/08/21 03:34 Pulse Ox 2 L 10/08/21 03:34 Body Mass Index 22.4 Gen: Appears be in no acute distress; on supplemental oxygen. Speaks in full sentences. Not in distress. HEENT: NCAT, Moist mucosa. Pulmonary: Coarse breath sounds; crackles at the bases CVS: Normal S1-S2 Abdomen: BS+, Soft, Nontender Extremities: Warm well perfused; his right BKA; left great toe has a scar tissue at the tip, surrounding erythema, tender to palpate Neuro: Alert and awake. Results Labs CBC and Chem 7: 10/08/21 04:43 10/08/21 04:43 Labs: Laboratory Results - last 24 hr 10/08/21 10/08/21 10/08/21 00:17 00:30 00:30 MCV 83.1 MCH 27.0 MCHC 32.5 RDW 14.3 Plt Count 271 MPV 10.0 Immature Gran % (Auto) 0.3 Neut % (Auto) 69.2 Lymph % (Auto) 15.3 L Valencia % (Auto) 12.1 H Eos % (Auto) 2.7 Baso % (Auto) 0.4 Lymph # (Auto) 1.1 L Valencia # (Auto) 0.9 Eos # (Auto) 0.2 Baso # (Auto) 0.0 Abs Immat Gran (auto) 0.02 Absolute Neuts (auto) 5.1 Absolute Nucleated RBC 0.020 H Nucleated RBC % (auto) 0.3 H Anion Gap 13 Estim Creat Clear Calc 98.9 Estimated GFR > 60 Random Glucose 144 H D Calcium 9.6 D Magnesium 1.5 L Total Bilirubin 0.4 Direct Bilirubin 0.2 AST 18 ALT 8 Alkaline Phosphatase 113 Troponin I High Sens B-Natriuretic Peptide Total Protein 7.9 Albumin 3.7 Urine Color Urine Appearance Urine pH Ur Specific Nice Urine Protein Urine Glucose (UA) Urine Ketones Urine Blood Urine Nitrite Ur Leukocyte Esterase Urine RBC Urine WBC Ur Squamous Epith Cells Urine Bacteria Urine Mucus Urine Sperm COVID-19 (JAMILA) Negative COVID-19 Clin Com See Note 10/08/21 10/08/21 00:30 02:15 MCV MCH MCHC RDW Plt Count MPV Immature Gran % (Auto) Neut % (Auto) Lymph % (Auto) Valencia % (Auto) Eos % (Auto) Baso % (Auto) Lymph # (Auto) Valencia # (Auto) Eos # (Auto) Baso # (Auto) Abs Immat Gran (auto) Absolute Neuts (auto) Absolute Nucleated RBC Nucleated RBC % (auto) Anion Gap Estim Creat Clear Calc Estimated GFR Random Glucose Calcium Magnesium Total Bilirubin Direct Bilirubin AST ALT Alkaline Phosphatase Troponin I High Sens 21.7 D B-Natriuretic Peptide 1888 H Total Protein Albumin Urine Color YELLOW Urine Appearance CLEAR Urine pH 6.5 Ur Specific Nice 1.020 Urine Protein 2+ H Urine Glucose (UA) NEG Urine Ketones NEG Urine Blood TRACE Urine Nitrite NEG Ur Leukocyte Esterase NEG Urine RBC 1-4 Urine WBC 1-4 Ur Squamous Epith Cells 1+ Urine Bacteria 1+ Urine Mucus 1+ Urine Sperm NOTED COVID-19 (JAMILA) COVID-19 Clin Com Imaging Radiologist's Impressions: Impressions Chest X-Ray 10/08/21 00:00 IMPRESSION: Interstitial prominence with somewhat additional patchy superimpose airspace opacities which could represent a combination of pulmonary edema or atypical infection. Correlate clinically and follow-up to ensure resolution. Abdomen/Pelvis CT 10/08/21 01:12 IMPRESSION: 1. Pulmonary findings suspicious for interstitial edema. 2. Mediastinal lymphadenopathy which may be reactive in the setting of edema. A malignant etiology, however, can also have this appearance. 3. Cardiomegaly. Trace right pleural effusion. 4. No acute findings identified in the abdomen/pelvis. 5. Cholelithiasis. Chest CT 10/08/21 01:12 IMPRESSION: 1. Pulmonary findings suspicious for interstitial edema. 2. Mediastinal lymphadenopathy which may be reactive in the setting of edema. A malignant etiology, however, can also have this appearance. 3. Cardiomegaly. Trace right pleural effusion. 4. No acute findings identified in the abdomen/pelvis. 5. Cholelithiasis. Assessment and Plan (1) Acute exacerbation of CHF (congestive heart failure): Qualifiers: Heart failure type: combined systolic and diastolic Qualified Code(s): I50.43 - Acute on chronic combined systolic (congestive) and diastolic (congestive) heart failure Status: Acute 51-year-old male with past medical history of hypertension, hyperlipidemia, diabetes, systolic CHF with EF of 15-20%, chronic anemia, bipolar disorder, BPH, peripheral vascular disease, history of substance abuse, opiate dependence, benign compression wedge fracture, COPD, GERD presented to the hospital today with a chief complaint of shortness of breath. Noted to be in CHF exacerbation. Admitted for further management. Shortness of breath/dyspnea on exertion: Likely in setting of CHF exacerbation. CT scan also showed mediastinal lymphadenopathy and tracheomalacia. Shin p.r.n. Pulmonary consult for further recommendations Acute systolic CHF exacerbation: Continue Lasix 80 mg IV daily Cardiology consult Telemetry Cycle cardiac enzymes Repeat echocardiogram Cardiology consult Left foot cellulitis: Noted to have healing granulation tissue/eschar; will keep the patient on cefepime and doxycycline. Id consult given recurrent episode Will also consult vascular surgery for further input. Foot CT ordered Diabetes: Insulin sliding scale COPD: CalvinoNebs p.r.n. Hypertension/hyperlipidemia: Continue home medications Opiate dependence: Patient on methadone: Will consult Addiction Medicine for confirmation and resuming patient's home methadone. All other chronic conditions, home medications will be continued DVT prophylaxis: Lovenox Code status: Full code Quality Stroke Does the patient have a stroke diagnosis?: No VTE Prior VTE?: No VTE Risk Level:: Medical - moderate - high VTE Device Contraindication: Treatment Not Indicated VTE Drug Contraindication: N/A - Med Ordered
[2021-10-08] MEDS: cefEPime HCl 1 GM in 0.9 % Sodium Chloride 50 ML IV ×3 (04:48→19:39)
[2021-10-08 04:49] LABS: MANUAL DIFF FLAG NO
[2021-10-08 04:57] LABS: Basophils Percent Auto 0.5 % (0-2); Eosinophils Absolute Auto 0.2 X10*3/uL (0.0-0.4); Eosinophils Percent Auto 2.3 % (0-4); Hematocrit 37.7 % (42.0-52.0); Hemoglobin 12.1 g/dl (14.0-18.0); Imm Gran Abs Auto 0.01 X10*3/uL (0.00-0.03); Imm Gran Pct Auto 0.2 % (0.0-0.4); Lymphocytes Absolute Auto 1.1 X10*3/uL (1.2-4.9); Lymphocytes Percent Auto 16.6 % (20-40); Mean Corpuscular HGB Conc 32.1 g/dl (31.0-36.0); Mean Corpuscular Hemoglobin 26.4 pg (27.0-33.0); Mean Corpuscular Volume 82.1 fL (80.0-98.0); Mean Platelet Volume 9.5 fL (9.4-12.4); Monocytes Absolute Auto 0.8 X10*3/uL (0.1-1.2); Neutrophils Absolute Auto 4.5 x10*3/uL (2.0-8.3); Neutrophils Percent Auto 68.4 % (45-73); Platelet Count 286 X10*3/uL (160-400); Red Blood Count 4.59 X10*6/uL (4.60-5.80); Red Cell Distribution Width 14.4 % (11.0-16.0); White Blood Count 6.5 X10*3/uL (4.8-10.8)
[2021-10-08 05:03] LABS: Anion Gap 14 (12-20); Blood Urea Nitrogen 13 mg/dL (9-16); Calcium 9.9 mg/dL (8.4-10.2); Carbon Dioxide 28 mmol/L (22-29); Chloride 97 mmol/L (96-108); Creatinine Clr Calc Pharmacy 96.4; Estimated Glomerular Filt Rate > 60; Glucose Random 116 mg/dL (60-115); Potassium 4.2 mmol/L (3.3-5.1); Sodium 135 mmol/L (135-145)
--- NOTE | 2021-10-08 05:07 | PC.NURSE ---
Med rec done by this RN based on recent pharmacy pick ups. pt is unsure of what medications he takes as his visiting nurse comes to his house and administers his medications daily. This nurse clarified with hospitalist if pt can still to receive Lovenox even though pt pharmacy record indicate that he has picked up Clopidogrel within the last 30 days. Per hospitalist (Lionel), ok to give Lovenox
[2021-10-08 05:11] LABS: Troponin-I High Sensitivity 25.1 ng/L (<3.5-35.0)
[2021-10-08] MEDS: Doxycycline Hyclate 100 MG in 0.9 % Sodium Chloride 250 ML 166.67 MG IV ×2 (05:16→17:21)
--- NOTE | 2021-10-08 05:20 | PC.NURSE ---
pt refusing Lovenox Hospitalist notified
--- NOTE | 2021-10-08 06:44 | PHA.MEDREC ---
Pharmacy Consult ? Medication Reconciliation Pharmacy has REVIEWED the medication reconciliation done overnight.
[2021-10-08 08:06] LABS: Glucose, Whole Blood 104 mg/dL (60-115)
[2021-10-08] MEDS: Furosemide 40 MG/4 ML VIAL 80 MG IVPUSH (09:20)
[2021-10-08] MEDS: Clopidogrel Bisulfate 75 MG TABLET PO (09:21)
[2021-10-08] MEDS: Gabapentin 100 MG CAPSULE 200 MG PO ×3 (09:21→21:27)
[2021-10-08] MEDS: Spironolactone 25 MG TABLET 12.5 MG PO (09:21)
[2021-10-08] MEDS: Aspirin Enteric Coated 81 MG TABLET.DR PO (09:21)
[2021-10-08] MEDS: Furosemide 40 MG TABLET PO (09:21)
[2021-10-08] MEDS: Tamsulosin HCL 0.4 MG CAPSULE PO (09:21)
[2021-10-08] MEDS: Loratadine 10 MG TABLET PO (09:21)
[2021-10-08] MEDS: carvediloL 6.25 MG TABLET PO ×2 (09:24→21:26)
--- NOTE | 2021-10-08 09:35 | PC.NURSE ---
pt alert and oriented. pt''s methadone dose verified with Yee, nurse at [facility] in [place]. Per Yee pt last dosed at the clinic on 10/06 at 50mg and got 2 take-home bottles to take 10/07 and 10/08. pt does not have take home bottle on his person, he reports it is at home. Yee at the methadone clinic aware and states the pt knows to bring the sealed take home bottle dated 10/08 to the clinic for verification. pt denies pain. ultra sound currently at bedside doing echo. pt awaiting bed assignment.
--- NOTE | 2021-10-08 09:59 | MHC.CM.PN ---
Received telephone call from Hilary of [facility]. Their agency typically picks up patient's Methadone on Monday. T/W explained because patient is on Lasix 80mg IV daily and IV Cefepime, it would be unlikely patient would be discharged before Monday. Hilary verbalized understanding and can be reached via telephone at [phone]. Continue to monitor for d/c needs.
--- NOTE | 2021-10-08 10:00 | CA_ITS ---
Transthoracic Echocardiogram Patient (Last, First, Middle): Dominik Hawk R Gender: Male Date of : 1970 Age: 51 Procedure Date: 10/08/2021 Procedure Type: Transthoracic Echocardiogram Location: ER Height: 167.64 cm Weight: 63.05 kg BSA: 1.71 m2 Heart Rate: bpm BP: 142 / 83 mmHg Crossband Layer: MERVAT Drummond MD: Ronald Mccullough MD Service Center Appraiser: Bishop Francisco MD Symptoms: chf Study Quality: Fair ECG Rhythm: Sinus Conclusions: - 1. Moderately dilated left ventricle with severe LV systolic dysfunction with LVEF of 15-20% with grade 3 diastolic dysfunction With underlying regional wall motion abnormality consistent with ischemic cardiomyopathy 2. Moderately dilated left atrium 3. [id number] mitral regurgitation 4. Mildly elevated right ventricular systolic pressure with significantly elevated right atrial pressures 5. No gross pericardial effusion Findings Procedure Information The patient declines contrast. Left Ventricle Moderately increased left ventricular cavity size. There is normal left ventricular wall thickness. The left ventricular systolic function is severely decreased. The visually estimated ejection fraction is between 15 20%. There is evidence of regional wall motion abnormalities. Spectral Doppler is indicative of a restrictive filling pattern. E/E prime ratio is >15, consistent with elevated filling pressures. Evidence suggests grade III (severe) diastolic dysfunction. Wall Motion Rest Echo Findings The anterior wall, anterolateral wall, the apex, apical inferior, apical lateral, basal anteroseptal, and mid anteroseptal segments are hypokinetic. The inferoseptal wall, inferolateral wall, the basal inferior, mid inferior, and apical septum segments are akinetic. Right Ventricle Normal right ventricular cavity size. There is normal right ventricular systolic function. Atria The left atrium is moderately dilated. There is no evidence of interatrial shunt. The right atrium is mildly dilated. Aortic Valve The aortic valve structure and function is likely normal. There is no aortic valve stenosis. There is no aortic valve regurgitation. Mitral Valve There is mild anterior and posterior mitral leaflet thickening. The anterior mitral leaflet has restricted mobility and the posterior mitral leaflet has restricted mobility. There is mild to moderate mitral valve regurgitation. There is no mitral valve stenosis. Pulmonic Valve The pulmonic valve was not well visualized. Tricuspid Valve Likely normal tricuspid valve structure and function. There is mild tricuspid valve regurgitation. Moderately elevated right atrial pressure. Mild pulmonary hypertension is present. Great Vessels All visible segments of the aorta are normal in size. The pulmonary artery was not well visualized. Venous The inferior vena cava is mildly dilated and does not collapse with inspiration. Pericardium/Pleural There is no evidence of pericardial effusion. Prior Study Comparison No significant change compared to prior study dated: 01/05/2021. Measurements 2D Linear Measurements IVSd: 0.81 0.6-0.9/0.6-1.0 cm LVIDd: 6.26 3.9-5.3/4.2-5.9 cm LVIDd Index: 3.66 2.4-3.2/2.2-3.1 cm/m2 LVIDs: 5.77 2.0-3.6 cm LVPWd: 0.85 0.7-1.1 cm Ao Root: 3.10 2.1-3.5 cm LA Diam: 4.00 2.7-3.8/3.0-4.0 cm LAIDs Index: 2.34 1.5-2.3 cm/m2 LV Mass: 260.56 67-162/88-224 g LV Mass Index: 152.37 43-95/49-115 g/m2 LVOT Diam: 2.10 3.0+(-)1.3 cm Aortic Valve AoV Pk Ricardo: 0.87 AoV Mn Ricardo: 0.71 AoV VTI: 0.16 AoV Pk Grad: 3.00 Aov Mn Grad: 2.00 REY Cont.VTI: 1.90 LVOT LVOT Pk Ricardo: 0.44 LVOT Mn Ricardo: 0.30 LVOT VTI: 0.09 LVOT Pk Grad: 1.00 LVOT Mn Grad: 0.00 LVOT Diam: 2.10 LVOT Area: 3.46 Right Ventricle TAPSE (mm): 1.75 TVS' Ricardo: 7.18 Tricuspid Valve TR Pk Ricardo: 2.57 TR Pk Grad: 26.00 RA Press: 15.00 RVSP: 41.00 Great Vessels Aorta Ao Root-2D: 3.10 2.0-3.7 cm Ao Asc: 3.10 2.1-3.4 cm Updated in Other Vendor System with Status of Final Bishop Francisco MD electronically signed on 10/08/2021 2:04:33 PM with status of Final
[2021-10-08] MEDS: methADONE HCl 20 MG/2 ML ORAL.CONC 50 MG PO (10:31)
[2021-10-08 11:53] LABS: Glucose, Whole Blood 102 mg/dL (60-115)
--- NOTE | 2021-10-08 12:25 | P.CONCA_ITS ---
History of Present Illness History of Present Illness Date of Service: 10/08/21 Requesting physician: Ronald Mccullough Consult reason: congestive heart failure Chief complaint: CHF Exacerbation Narrative: I was requested to see Dominik in cardiology consultation today for decompensated congestive heart failure. He is a poor historian. History obtained from old records as well. Patient with prior history of systolic heart failure with severe cardiomyopathy with LVEF of 15-20%, sees a twenty one dealer at [facility] but has not seen the twenty one dealer for long time, says has old [place], hypertension, hyperlipidemia, diabetes, right below-knee amputation, peripheral vascular disease, prior history of substance abuse, opiate dependen ce, bipolar disorder, anemia. Patient present hospital with progressively increasing shortness of breath as well as orthopnea. Came to the hospital and noted to have decompensated congestive heart failure with elevated BNP as well as chest x-ray findings consistent with pulmonary edema. He has been diuresed. Appears more comfortable today. He also however complains of discharge from his left foot at the toes site with wound. Denies any fever or chills. Complains of some abdominal distension and discomfort. Has not noticed significant leg edema as per him. Review of Systems Constitutional: Constitutional: Denies chills, Reports fatigue, Denies fever(s) and Denies malaise Eyes: Eyes: Reports no additional eye complaints ENT: Reports system reviewed and no additional complaints, except as documen luz Cardiovascular: Cardiovascular: Reports Abdominal Distension, Denies chest pain, Reports epigastric discomfort, Denies leg edema, Denies lightheadedness, Denies Loss of Consciousness, Denies palpitations, Reports dyspnea, Reports dyspnea on exertion and Reports orthopnea Respiratory: Respiratory: Reports no additional respiratory complaints, Reports dyspnea and Reports dyspnea on exertion Gastrointestinal: Gastrointestinal: Reports no additional gastrointestinal complaints Genitourinary: Genitourinary: Reports no additional male genitourinary complaints Musculoskeletal: Musculoskeletal: Reports no additional musculoskeletal complaints Integumentary/Breasts: Skin/Breast: Reports non-healing lesions Neurologic: Reports system reviewed and no additional complaints, except as documented Endocrine: Endocrine: Reports fatigue and Denies palpitations PMFSH Past Medical History Medical History Acute on chronic anemia Acute on chronic combined systolic and diastolic congestive heart failure Asthma Bipolar 1 disorder BPH (benign prostatic hyperplasia) Cholelithiasis Closed wedge compression fracture of T9 vertebra COPD (chronic obstructive pulmonary disease) Diabetes mellitus, type 2 GERD (gastroesophageal reflux disease) Hyperlipidemia Peripheral arterial disease Peripheral neuropathy Substance abuse Family History Family History Father Chronic mental illness Hypertension Asthma Stroke Mother Asthma Diabetes Coronary artery disease Surgical History Surgical History History of amputation History of laminectomy History of transurethral resection of prostate Hx of BKA Social History Social History Household Members: None Housing: Apartment Housing Other:: IN A LITTLE ROOM Do you presently have visiting nurse or other home services: Yes ([employer]; 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[employer]) Alcohol intake: never Patient Tobacco Use Status: Tobacco use Unknown Second Hand Smoke Exposure: No Substance Use Type: Marijuana Advance Directives: Yes Advance Directives on File: Yes Advance Directives Date on File: 11/24/20 service: No Current occupational status: disabled Meds Allergies Allergy/AdvReac Type Severity Reaction Status Date / Time ertapenem Allergy Intermediate Hives Verified 07/20/21 01:06 vancomycin [VANCOMYCIN] Allergy Intermediate HIVES Verified 07/20/21 01:06 Chocolate Allergy Unknown Rash Verified 07/20/21 01:06 ciprofloxacin [From CIPRO] Allergy Unknown SWELLING Verified 07/20/21 01:06 hydrocortisone [Cipro HC] Allergy Unknown Unknown Verified 07/20/21 01:06 sulfamethoxazole Allergy Unknown rash Verified 07/20/21 01:06 [From BACTRIM] trimethoprim [From BACTRIM] Allergy Unknown rash Verified 07/20/21 01:06 turkey [TURKEY] Allergy Unknown RASH Verified 07/20/21 01:06 Active Medications: Current Medications Albuterol Sulfate (Albuterol Sulfate (0.083%) 2.5 Mg/3 Ml Vial.Neb) 2.5 mg INHALE Q4H PRN PRN Reason: Shortness Of Breath Or Wheezin Albuterol Sulfate (Albuterol Sulfate 90 Mcg 8 Gm Inhaler) 2 puff INHALE Q4H PRN PRN Reason: Shortness Of Breath Albuterol/Ipratropium (Albuterol/Iprat 2.5/0.5mg 3 Ml Ampul.Neb) 3 ml INHALE RQ4H PRN PRN Reason: Shortness of Breath/Wheezing Aspirin (Aspirin Enteric Coated 81 Mg Tablet.Dr) 81 mg PO DAILY [facility] Last Admin: 10/08/21 09:21 Dose: 81 mg Documented by: Atorvastatin Calcium (Atorvastatin Calcium 20 Mg Tablet) 20 mg PO BEDTIME [facility] Carvedilol (Carvedilol 6.25 Mg Tablet) 6.25 mg PO BID [facility]; Protocol Last Admin: 10/08/21 09:24 Dose: 6.25 mg Documented by: Clopidogrel Bisulfate (Clopidogrel Bisulfate 75 Mg Tablet) 75 mg PO DAILY [facility] Last Admin: 10/08/21 09:21 Dose: 75 mg Documented by: Dextrose (Dextrose 50 % 25 Gm/50 Ml Vial) 25 gm IVPUSH Q15M PRN; Protocol PRN Reason: per Hypoglycemia Standing Ord. Enoxaparin Sodium (Enoxaparin Sodium 40 Mg/0.4 Ml Syringe) 40 mg SUBCUT Q24H [facility] Last Admin: 10/08/21 05:19 Dose: Not Given Documented by: Fluticasone Propionate (Fluticasone Propionate Nasal 16 Gm [place]) 1 spray NOSTRIL-B DAILY [facility] Furosemide (Furosemide 40 Mg/4 Ml Vial) 80 mg IVPUSH DAILY [facility]; Protocol Last Admin: 10/08/21 09:20 Dose: 80 mg Documented by: Furosemide (Furosemide 40 Mg Tablet) 40 mg PO DAILY [facility]; Protocol Last Admin: 10/08/21 09:21 Dose: 40 mg Documented by: Gabapentin (Gabapentin 100 Mg Capsule) 200 mg PO TID [facility] Last Admin: 10/08/21 09:21 Dose: 200 mg Documented by: Glucose (Glucose Gel 15 Gm Gel..Gram.) 15 gm PO Q15M PRN; Protocol PRN Reason: per Hypoglycemia Standing Ord. Cefepime HCl 1 gm/ Sodium (Chloride) 50 mls @ 100 mls/hr IV Q8H [facility] Last Infusion: 10/08/21 05:18 Dose: Infused Documented by: Doxycycline Hyclate 100 mg/ (Sodium Chloride) 250 mls @ 166.67 mls/hr IV Q12H [facility] Last Infusion: 10/08/21 06:46 Dose: Infused Documented by: Insulin Glargine (Insulin Glargine,Hum.Rec.Anlog 100 Unit/Ml 10 Ml Vial) 12 unit SUBCUT BEDTIME [facility] Insulin Human Lispro (Insulin Lispro 100 Unit/Ml 3 Ml Vial) 0 unit SUBCUT QIDACHS [facility]; Protocol Last Admin: 10/08/21 08:11 Dose: Not Given Documented by: Loratadine (Loratadine 10 Mg Tablet) 10 mg PO DAILY [facility] Last Admin: 10/08/21 09:21 Dose: 10 mg Documented by: Melatonin (Melatonin 3 Mg Tablet) 6 mg PO BEDTIME PRN PRN Reason: Insomnia Methadone HCl (Methadone Hcl 20 Mg/2 Ml Oral.Conc) 50 mg PO DAILY [facility] Last Admin: 10/08/21 10:31 Dose: 50 mg Documented by: Montelukast Sodium (Montelukast Sodium 10 Mg Tablet) 10 mg PO BEDTIME [facility] Pharmacy Consult (Consult Rx Perform Med Rec) 1 each MISCELLANE ONCE PRN PRN Reason: Consult order Senna (Sennosides 8.6 Mg Tablet) 17.2 mg PO BEDTIME PRN PRN Reason: Constipation Sodium Chloride (0.9 % Sodium Chloride Flush 3 Ml Syringe) 3 ml IVFLUSH QSHIFT [facility] Last Admin: 10/08/21 09:25 Dose: Not Given Documented by: Spironolactone (Spironolactone 25 Mg Tablet) 12.5 mg PO DAILY [facility]; Protocol Last Admin: 10/08/21 09:21 Dose: 12.5 mg Documented by: Tamsulosin HCl (Tamsulosin Hcl 0.4 Mg Capsule) 0.4 mg PO DAILY [facility] Last Admin: 10/08/21 09:21 Dose: 0.4 mg Documented by: Home Medications Medication Instructions Recorded Confirmed Last Taken Type FreeStyle Lite Strips 08/12/20 02/13/21 Unknown History albuterol sulfate 2.5 mg INHALATION Q4H PRN 08/12/20 10/08/21 Unknown History albuterol sulfate 90 mcg/actuation 2 puff INHALATION Q4H PRN 08/12/20 10/08/21 Unknown History aerosol inhaler blood-glucose meter (FreeStyle 08/12/20 02/13/21 Unknown History [place]vast[place] Lite) cane 08/12/20 02/13/21 Unknown History lancets 08/12/20 02/13/21 Unknown History methadone 10 mg/mL oral concentrate 50 mg PO QAM 08/12/20 10/08/21 01/02/21 History pen needle, diabetic 08/12/20 02/13/21 Unknown History aspirin 81 mg tablet,delayed 81 mg PO DAILY 08/14/20 10/08/21 Unknown History release atorvastatin 20 mg tablet 20 mg PO BEDTIME 08/14/20 10/08/21 Unknown History carvedilol 6.25 mg tablet 6.25 mg PO BID 08/14/20 10/08/21 Unknown History cetirizine 10 mg tablet 10 mg PO DAILY 08/14/20 10/08/21 Unknown History fluticasone propionate 50 1 spray INTRANASAL DAILY 08/14/20 10/08/21 Unknown History mcg/actuation nasal spray,suspension (Flonase Allergy Relief) gabapentin 100 mg capsule 200 mg PO TID 08/14/20 10/08/21 Unknown History insulin glargine 100 unit/mL 12 unit SUBCUT QPM 08/14/20 10/08/21 Unknown History subcutaneous solution (Lantus U-100 Insulin) montelukast 10 mg tablet 10 mg PO BEDTIME 08/14/20 10/08/21 Unknown History spironolactone 25 mg tablet 12.5 mg PO DAILY 08/14/20 10/08/21 Unknown History tamsulosin 0.4 mg capsule 0.4 mg PO DAILY 08/14/20 10/08/21 Unknown History clopidogrel 75 mg tablet 1 tab PO QAM 10/08/21 10/08/21 Unknown History Physical Exam Vital Signs: Vital Signs: Last Vital Signs Temp 98.5 F 10/08/21 07:55 Pulse 86 10/08/21 09:24 Resp 16 10/08/21 07:55 BP 150/85 H 10/08/21 09:24 Pulse Ox 100 10/08/21 07:55 Body Mass Index 22.4 Const: General: cooperative, comfortable, no acute distress, alert, awake and ill appearing Nutritional Appearance: underweight Orientation/consciousness: patient oriented x3 HENMT: Head: Yes normocephalic and Yes atraumatic Neck: Neck: Yes trachea midline, Yes supple and Yes JVD Chest: Chest palpation & inspection: normal inspection of the chest Resp: Effort & Inspection: normal respiratory effort Auscultation: crackles and diminished lung sounds Cardio: Jugular venous distension: JVD Palpation: abnormal PMI displaced PMI Rate: regular rate Rhythm: abnormal rhythm with ectopic beats Heart sounds: S1 normal heart sound present, S2 normal heart sound present, no click, Gallop heart sound present, no murmurs and no rubs GI: Auscultation: normal bowel sounds Skin: General skin exam: no rashes or lesions noted Neuro: General: patient oriented x3 and no focal motor deficits Extrem: General: Yes other (Right below-knee amputation with no significant edema. Left transmetatarsa) Objective Labs and Meds Result diagrams: 10/08/21 04:43 10/08/21 04:43 Lab results: Laboratory Results - last 24 hr 10/08/21 10/08/21 10/08/21 00:17 00:30 00:30 WBC 7.4 RBC 4.19 L Hgb 11.3 L Hct 34.8 L MCV 83.1 MCH 27.0 MCHC 32.5 RDW 14.3 Plt Count 271 MPV 10.0 Immature Gran % (Auto) 0.3 Neut % (Auto) 69.2 Lymph % (Auto) 15.3 L [place] % (Auto) 12.1 H Eos % (Auto) 2.7 Baso % (Auto) 0.4 Lymph # (Auto) 1.1 L [place] # (Auto) 0.9 Eos # (Auto) 0.2 Baso # (Auto) 0.0 Abs Immat Gran (auto) 0.02 Absolute Neuts (auto) 5.1 Absolute Nucleated RBC 0.020 H Nucleated RBC % (auto) 0.3 H Sodium 135 Potassium 3.9 Chloride 98 Carbon Dioxide 28 Anion Gap 13 BUN 13 Creatinine 0.77 Estim Creat Clear Calc 98.9 Estimated GFR > 60 POC Glucose Random Glucose 144 H D Calcium 9.6 D Magnesium 1.5 L Total Bilirubin 0.4 Direct Bilirubin 0.2 AST 18 ALT 8 Alkaline Phosphatase 113 Troponin I High Sens B-Natriuretic Peptide Total Protein 7.9 Albumin 3.7 Urine Color Urine Appearance Urine pH Ur Specific [place] Urine Protein Urine Glucose (UA) Urine Ketones Urine Blood Urine Nitrite Ur Leukocyte Esterase Urine RBC Urine WBC Ur Squamous Epith Cells Urine Bacteria Urine Mucus Urine Sperm COVID-19 (JAMILA) Negative COVID-19 Clin Com See Note 10/08/21 10/08/21 10/08/21 00:30 02:15 04:43 WBC RBC Hgb Hct MCV MCH MCHC RDW Plt Count MPV Immature Gran % (Auto) Neut % (Auto) Lymph % (Auto) [place] % (Auto) Eos % (Auto) Baso % (Auto) Lymph # (Auto) [place] # (Auto) Eos # (Auto) Baso # (Auto) Abs Immat Gran (auto) Absolute Neuts (auto) Absolute Nucleated RBC Nucleated RBC % (auto) Sodium Potassium Chloride Carbon Dioxide Anion Gap BUN Creatinine Estim Creat Clear Calc Estimated GFR POC Glucose Random Glucose Calcium Magnesium Total Bilirubin Direct Bilirubin AST ALT Alkaline Phosphatase Troponin I High Sens 21.7 D 25.1 B-Natriuretic Peptide 1888 H Total Protein Albumin Urine Color YELLOW Urine Appearance CLEAR Urine pH 6.5 Ur Specific [place] 1.020 Urine Protein 2+ H Urine Glucose (UA) NEG Urine Ketones NEG Urine Blood TRACE Urine Nitrite NEG Ur Leukocyte Esterase NEG Urine RBC 1-4 Urine WBC 1-4 Ur Squamous Epith Cells 1+ Urine Bacteria 1+ Urine Mucus 1+ Urine Sperm NOTED COVID-19 (JAMILA) COVID-19 Clin Com 10/08/21 10/08/21 10/08/21 04:43 04:43 08:01 WBC 6.5 RBC 4.59 L Hgb 12.1 L Hct 37.7 L MCV 82.1 MCH 26.4 L MCHC 32.1 RDW 14.4 Plt Count 286 MPV 9.5 Immature Gran % (Auto) 0.2 Neut % (Auto) 68.4 Lymph % (Auto) 16.6 L [place] % (Auto) 12.0 H Eos % (Auto) 2.3 Baso % (Auto) 0.5 Lymph # (Auto) 1.1 L [place] # (Auto) 0.8 Eos # (Auto) 0.2 Baso # (Auto) 0.0 Abs Immat Gran (auto) 0.01 Absolute Neuts (auto) 4.5 Absolute Nucleated RBC 0.000 Nucleated RBC % (auto) 0.0 Sodium 135 Potassium 4.2 Chloride 97 Carbon Dioxide 28 Anion Gap 14 BUN 13 Creatinine 0.79 Estim Creat Clear Calc 96.4 Estimated GFR > 60 POC Glucose 104 Random Glucose 116 H Calcium 9.9 Magnesium Total Bilirubin Direct Bilirubin AST ALT Alkaline Phosphatase Troponin I High Sens B-Natriuretic Peptide Total Protein Albumin Urine Color Urine Appearance Urine pH Ur Specific [place] Urine Protein Urine Glucose (UA) Urine Ketones Urine Blood Urine Nitrite Ur Leukocyte Esterase Urine RBC Urine WBC Ur Squamous Epith Cells Urine Bacteria Urine Mucus Urine Sperm COVID-19 (JAMILA) COVID-19 Clin Com 10/08/21 11:49 WBC RBC Hgb Hct MCV MCH MCHC RDW Plt Count MPV Immature Gran % (Auto) Neut % (Auto) Lymph % (Auto) [place] % (Auto) Eos % (Auto) Baso % (Auto) Lymph # (Auto) [place] # (Auto) Eos # (Auto) Baso # (Auto) Abs Immat Gran (auto) Absolute Neuts (auto) Absolute Nucleated RBC Nucleated RBC % (auto) Sodium Potassium Chloride Carbon Dioxide Anion Gap BUN Creatinine Estim Creat Clear Calc Estimated GFR POC Glucose 102 Random Glucose Calcium Magnesium Total Bilirubin Direct Bilirubin AST ALT Alkaline Phosphatase Troponin I High Sens B-Natriuretic Peptide Total Protein Albumin Urine Color Urine Appearance Urine pH Ur Specific [place] Urine Protein Urine Glucose (UA) Urine Ketones Urine Blood Urine Nitrite Ur Leukocyte Esterase Urine RBC Urine WBC Ur Squamous Epith Cells Urine Bacteria Urine Mucus Urine Sperm COVID-19 (JAMILA) COVID-19 Clin Com EKG shows normal sinus rhythm with left axis deviation with left ventricular hypertrophy with repolarization abnormality Imaging Radiologist's impression: Impressions Chest X-Ray 10/08/21 00:00 IMPRESSION: Interstitial prominence with somewhat additional patchy superimpose airspace opacities which could represent a combination of pulmonary edema or atypical infection. Correlate clinically and follow-up to ensure resolution. Abdomen/Pelvis CT 10/08/21 01:12 IMPRESSION: 1. Pulmonary findings suspicious for interstitial edema. 2. Mediastinal lymphadenopathy which may be reactive in the setting of edema. A malignant etiology, however, can also have this appearance. 3. Cardiomegaly. Trace right pleural effusion. 4. No acute findings identified in the abdomen/pelvis. 5. Cholelithiasis. Chest CT 10/08/21 01:12 IMPRESSION: 1. Pulmonary findings suspicious for interstitial edema. 2. Mediastinal lymphadenopathy which may be reactive in the setting of edema. A malignant etiology, however, can also have this appearance. 3. Cardiomegaly. Trace right pleural effusion. 4. No acute findings identified in the abdomen/pelvis. 5. Cholelithiasis. Foot CT 10/08/21 03:26 IMPRESSION: Cortical irregularity along the posterior calcaneus, at the site of osteomyelitis identified on MRI 11/27/2020. Current appearance may reflect chronic sequelae of infection, though assessment for acute osteomyelitis would be better performed with MRI. Subcutaneous edema may represent cellulitis. Assessment and Plan (1) Acute exacerbation of CHF (congestive heart failure): Qualifiers: Heart failure type: combined systolic and diastolic Qualified Code(s): I50.43 - Acute on chronic combined systolic (congestive) and diastolic (congestive) heart failure Status: Acute Acute decompensated congestive heart failure in a patient with severe LV systolic dysfunction. Appears to be in overt heart failure at this point time. Continue IV Lasix. Strict intake and output chart needs to be pursued. Continue to trend electrolytes and creatinine check. Replace electrolytes as needed. Continue therapy with carvedilol and spironolactone therapy. Add Entresto for neurohormonal modulation as well. Will review the echocardiogram. Supportive care for his leg wound, consider surgical consultation. CHF education to be provided. Will follow with you. Thank you for allowing me to partake in his care Procedures Date of Service Date of Service: 10/08/21
--- NOTE | 2021-10-08 12:58 | PM.CNPUL ---
History of Present Illness History of Present Illness Consult date: 10/08/21 Chief complaint: CHF Exacerbation Narrative: This is a in-patient pulmonary consultation. The patient is a 51-year-old male with past medical history of hypertension, hyperlipidemia, diabetes, systolic CHF with EF of 15-20%, chronic anemia, bipolar disorder, BPH, peripheral vascular disease, history of substance abuse, opiate dependence, benign compression wedge fracture, COPD, GERD presented to the hospital today with a chief complaint of shortness of breath.?Patient reported that over the past 4 days he has been having shortness of breath and dyspnea on exertion; also complains of orthopnea and unable to lie down flat.?The symptoms were not improving decided to come to the ER for further evaluation.?In the ER he was noted to be mildly hypoxic at 87%, not in respiratory distress, placed on supplemental oxygen, noted to have rales and crackles; on labs noted to have elevated proBNP; given Lasix; chest x-ray was abnormal-CT chest was done which showed mediastinal lymphadenopathy concern for malignancy, cardiomegaly, pulmonary edema, atelectasis; CT abdomen showed no acute process; admitted to the hospital for further management. Review of Systems Constitutional: Constitutional: Denies chills, Reports fatigue, Denies fever(s) and Denies malaise Eyes: Eyes: Reports no additional eye complaints ENT: Reports system reviewed and no additional complaints, except as documented Cardiovascular: Cardiovascular: Reports Abdominal Distension, Denies chest pain, Reports epigastric discomfort, Denies leg edema, Denies lightheadedness, Denies Loss of Consciousness, Denies palpitations, Reports dyspnea, Reports dyspnea on exertion and Reports orthopnea Respiratory: Respiratory: Reports no additional respiratory complaints, Reports dyspnea and Reports dyspnea on exertion Gastrointestinal: Gastrointestinal: Reports no additional gastrointestinal complaints Genitourinary: Genitourinary: Reports no additional male genitourinary complaints Musculoskeletal: Musculoskeletal: Reports no additional musculoskeletal complaints Integumentary/Breasts: Skin/Breast: Reports non-healing lesions Neurologic: Reports system reviewed and no additional complaints, except as documented Endocrine: Endocrine: Reports fatigue and Denies palpitations [facility] Past Medical History Medical History (Updated 10/08/21 @ 13:01 by Wan Cordova MD) Acute on chronic anemia Acute on chronic combined systolic and diastolic congestive heart failure Asthma Bipolar 1 disorder BPH (benign prostatic hyperplasia) Cholelithiasis Closed wedge compression fracture of T9 vertebra COPD (chronic obstructive pulmonary disease) Diabetes mellitus, type 2 GERD (gastroesophageal reflux disease) Hyperlipidemia Lymphadenopathy Peripheral arterial disease Peripheral neuropathy Substance abuse Family History Family History Father Chronic mental illness Hypertension Asthma Stroke Mother Asthma Diabetes Coronary artery disease Surgical History Surgical History History of amputation History of laminectomy History of transurethral resection of prostate Hx of BKA Social History Social History Household Members: None Housing: Apartment Housing Other:: IN A LITTLE ROOM Do you presently have visiting nurse or other home services: Yes ([employer]; 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[employer]) Alcohol intake: never Patient Tobacco Use Status: Tobacco use Unknown Second Hand Smoke Exposure: No Substance Use Type: Marijuana Advance Directives: Yes Advance Directives on File: Yes Advance Directives Date on File: 11/24/20 service: No Current occupational status: disabled Meds Allergies Allergy/AdvReac Type Severity Reaction Status Date / Time ertapenem Allergy Intermediate Hives Verified 07/20/21 01:06 vancomycin [VANCOMYCIN] Allergy Intermediate HIVES Verified 07/20/21 01:06 Chocolate Allergy Unknown Rash Verified 07/20/21 01:06 ciprofloxacin [From CIPRO] Allergy Unknown SWELLING Verified 07/20/21 01:06 hydrocortisone [Cipro HC] Allergy Unknown Unknown Verified 07/20/21 01:06 sulfamethoxazole Allergy Unknown rash Verified 07/20/21 01:06 [From BACTRIM] trimethoprim [From BACTRIM] Allergy Unknown rash Verified 07/20/21 01:06 turkey [TURKEY] Allergy Unknown RASH Verified 07/20/21 01:06 Active Medications: Current Medications Albuterol Sulfate (Albuterol Sulfate (0.083%) 2.5 Mg/3 Ml Vial.Neb) 2.5 mg INHALE Q4H PRN PRN Reason: Shortness Of Breath Or Wheezin Albuterol Sulfate (Albuterol Sulfate 90 Mcg 8 Gm Inhaler) 2 puff INHALE Q4H PRN PRN Reason: Shortness Of Breath Albuterol/Ipratropium (Albuterol/Iprat 2.5/0.5mg 3 Ml Ampul.Neb) 3 ml INHALE RQ4H PRN PRN Reason: Shortness of Breath/Wheezing Aspirin (Aspirin Enteric Coated 81 Mg Tablet.) 81 mg PO DAILY [facility] Last Admin: 10/08/21 09:21 Dose: 81 mg Documented by: Atorvastatin Calcium (Atorvastatin Calcium 20 Mg Tablet) 20 mg PO BEDTIME [facility] Carvedilol (Carvedilol 6.25 Mg Tablet) 6.25 mg PO BID [facility]; Protocol Last Admin: 10/08/21 09:24 Dose: 6.25 mg Documented by: Clopidogrel Bisulfate (Clopidogrel Bisulfate 75 Mg Tablet) 75 mg PO DAILY [facility] Last Admin: 10/08/21 09:21 Dose: 75 mg Documented by: Dextrose (Dextrose 50 % 25 Gm/50 Ml Vial) 25 gm IVPUSH Q15M PRN; Protocol PRN Reason: per Hypoglycemia Standing Ord. Enoxaparin Sodium (Enoxaparin Sodium 40 Mg/0.4 Ml Syringe) 40 mg SUBCUT Q24H [facility] Last Admin: 10/08/21 05:19 Dose: Not Given Documented by: Fluticasone Propionate (Fluticasone Propionate Nasal 16 Gm [place]) 1 spray NOSTRIL-B DAILY [facility] Furosemide (Furosemide 40 Mg/4 Ml Vial) 80 mg IVPUSH DAILY [facility]; Protocol Last Admin: 10/08/21 09:20 Dose: 80 mg Documented by: Furosemide (Furosemide 40 Mg Tablet) 40 mg PO DAILY [facility]; Protocol Last Admin: 10/08/21 09:21 Dose: 40 mg Documented by: Gabapentin (Gabapentin 100 Mg Capsule) 200 mg PO TID [facility] Last Admin: 10/08/21 09:21 Dose: 200 mg Documented by: Glucose (Glucose Gel 15 Gm Gel..Gram.) 15 gm PO Q15M PRN; Protocol PRN Reason: per Hypoglycemia Standing Ord. Cefepime HCl 1 gm/ Sodium (Chloride) 50 mls @ 100 mls/hr IV Q8H [facility] Last Infusion: 10/08/21 05:18 Dose: Infused Documented by: Doxycycline Hyclate 100 mg/ (Sodium Chloride) 250 mls @ 166.67 mls/hr IV Q12H [facility] Last Infusion: 10/08/21 06:46 Dose: Infused Documented by: Insulin Glargine (Insulin Glargine,Hum.Rec.Anlog 100 Unit/Ml 10 Ml Vial) 12 unit SUBCUT BEDTIME [facility] Insulin Human Lispro (Insulin Lispro 100 Unit/Ml 3 Ml Vial) 0 unit SUBCUT QIDACHS [facility]; Protocol Last Admin: 10/08/21 08:11 Dose: Not Given Documented by: Loratadine (Loratadine 10 Mg Tablet) 10 mg PO DAILY [facility] Last Admin: 10/08/21 09:21 Dose: 10 mg Documented by: Melatonin (Melatonin 3 Mg Tablet) 6 mg PO BEDTIME PRN PRN Reason: Insomnia Methadone HCl (Methadone Hcl 20 Mg/2 Ml Oral.Conc) 50 mg PO DAILY [facility] Last Admin: 10/08/21 10:31 Dose: 50 mg Documented by: Montelukast Sodium (Montelukast Sodium 10 Mg Tablet) 10 mg PO BEDTIME [facility] Pharmacy Consult (Consult Rx Perform Med Rec) 1 each MISCELLANE ONCE PRN PRN Reason: Consult order Senna (Sennosides 8.6 Mg Tablet) 17.2 mg PO BEDTIME PRN PRN Reason: Constipation Sodium Chloride (0.9 % Sodium Chloride Flush 3 Ml Syringe) 3 ml IVFLUSH QSHIFT [facility] Last Admin: 10/08/21 09:25 Dose: Not Given Documented by: Spironolactone (Spironolactone 25 Mg Tablet) 12.5 mg PO DAILY [facility]; Protocol Last Admin: 10/08/21 09:21 Dose: 12.5 mg Documented by: Tamsulosin HCl (Tamsulosin Hcl 0.4 Mg Capsule) 0.4 mg PO DAILY [facility] Last Admin: 10/08/21 09:21 Dose: 0.4 mg Documented by: Home Medications Medication Instructions Recorded Confirmed Last Taken Type FreeStyle Lite Strips 08/12/20 02/13/21 Unknown History albuterol sulfate 2.5 mg INHALATION Q4H PRN 08/12/20 10/08/21 Unknown History albuterol sulfate 90 mcg/actuation 2 puff INHALATION Q4H PRN 08/12/20 10/08/21 Unknown History aerosol inhaler blood-glucose meter (FreeStyle 08/12/20 02/13/21 Unknown History [place] Lite) cane 08/12/20 02/13/21 Unknown History lancets 08/12/20 02/13/21 Unknown History methadone 10 mg/mL oral concentrate 50 mg PO QAM 0910/08/21 01/02/21 History pen needle, diabetic 08/12/20 02/13/21 Unknown History aspirin 81 mg tablet,delayed 81 mg PO DAILY 08/14/20 10/08/21 Unknown History release atorvastatin 20 mg tablet 20 mg PO BEDTIME 08/14/20 10/08/21 Unknown History carvedilol 6.25 mg tablet 6.25 mg PO BID 08/14/20 10/08/21 Unknown History cetirizine 10 mg tablet 10 mg PO DAILY 08/14/20 10/08/21 Unknown History fluticasone propionate 50 1 spray INTRANASAL DAILY 08/14/20 10/08/21 Unknown History mcg/actuation nasal spray,suspension (Flonase Allergy Relief) gabapentin 100 mg capsule 200 mg PO TID 08/14/20 10/08/21 Unknown History insulin glargine 100 unit/mL 12 unit SUBCUT QPM 08/14/20 10/08/21 Unknown History subcutaneous solution (Lantus U-100 Insulin) montelukast 10 mg tablet 10 mg PO BEDTIME 08/14/20 10/08/21 Unknown History spironolactone 25 mg tablet 12.5 mg PO DAILY 08/14/20 10/08/21 Unknown History tamsulosin 0.4 mg capsule 0.4 mg PO DAILY 08/14/20 10/08/21 Unknown History clopidogrel 75 mg tablet 1 tab PO QAM 10/08/21 10/08/21 Unknown History Physical Exam Vital Signs: Vital Signs: Last Vital Signs Temp 98.5 F 10/08/21 07:55 Pulse 86 10/08/21 09:24 Resp 16 10/08/21 07:55 BP 150/85 H 10/08/21 09:24 Pulse Ox 100 10/08/21 07:55 Body Mass Index 22.4 Const: General: alert Neck: Neck: Yes normal visual inspection, Yes full ROM and Yes no lymphadenopathy Chest: Chest palpation & inspection: normal inspection of the chest Resp: Auscultation: wheezes and diminished lung sounds Cardio: Rate: regular rate Rhythm: regular rhythm Heart sounds: S1 normal heart sound present and S2 normal heart sound present GI: Palpation (GI): Soft to palpation and nontender Auscultation: normal bowel sounds Skin: General skin exam: rashes and/or lesions noted Results Laboratory Findings CBC and BMP: 10/08/21 04:43 10/08/21 04:43 Abnormal lab findings: Abnormal Labs 10/08/21 10/08/21 10/08/21 00:30 00:30 00:30 RBC 4.19 L Hgb 11.3 L Hct 34.8 L MCH Lymph % (Auto) 15.3 L [place] % (Auto) 12.1 H Lymph # (Auto) 1.1 L Absolute Nucleated RBC 0.020 H Nucleated RBC % (auto) 0.3 H Random Glucose 144 H D Magnesium 1.5 L B-Natriuretic Peptide 1888 H Urine Protein 10/08/21 10/08/21 10/08/21 02:15 04:43 04:43 RBC 4.59 L Hgb 12.1 L Hct 37.7 L MCH 26.4 L Lymph % (Auto) 16.6 L [place] % (Auto) 12.0 H Lymph # (Auto) 1.1 L Absolute Nucleated RBC Nucleated RBC % (auto) Random Glucose 116 H Magnesium B-Natriuretic Peptide Urine Protein 2+ H Assessment and Plan (1) Acute respiratory failure with hypoxia: Status: Acute (2) Acute exacerbation of CHF (congestive heart failure): Qualifiers: Heart failure type: combined systolic and diastolic Qualified Code(s): I50.43 - Acute on chronic combined systolic (congestive) and diastolic (congestive) heart failure Status: Acute (3) Lymphadenopathy: Status: Acute (4) Tracheomalacia, acquired: Status: Acute Bloodwork request to further address the LN ?reactive, ?sarcoidosis, ?CTD ?blood dyscrasias Diuresis as tolerated Continue oxygen supplemetation to keep po>90% Will need out pt follow up to address the LN and will benefit from a sleep study and PFTs Procedures Date of Service Date of Service: 10/08/21
[2021-10-08 17:10] LABS: Glucose, Whole Blood 155 mg/dL (60-115)
[2021-10-08] MEDS: Insulin Lispro 100 UNIT/ML 3 ML VIAL SUBCUT (17:18)
[2021-10-08] MEDS: 0.9 % Sodium Chloride Flush 3 ML SYRINGE IVFLUSH (17:31)
--- NOTE | 2021-10-08 17:55 | MHC.CM.PN ---
CM met with admitted patient with bed assignment pending. inventory audit clerk used as pt is Slovenian speaking only. No IMM necessary. HCP on file. HCP/friend/landlord Vaughn Fontanez ([phone]). 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 Pt has services through [facility] ([facility]) and [facility] for daily methadone. Pt has [employer] services 2 hours/day, pt unsure of agency. Pt states he uses 50 mg methadone/day. Pt denies and opiate use. Pt requesting oxygen at home. Will need RT evaluation for home oxygen pending hospital course. D/C plan is home with continued services. Pt will need W/C van for transport. CM to follow for d/c needs.
[2021-10-08 20:49] LABS: Glucose, Whole Blood 104 mg/dL (60-115)
[2021-10-08] MEDS: Montelukast Sodium 10 MG TABLET PO (21:26)
[2021-10-08] MEDS: Atorvastatin Calcium 20 MG TABLET PO (21:26)
--- NOTE | 2021-10-08 23:12 | W.PM.IDCN ---
History of Present Illness Data of Consult Service Date: 10/08/21 Requesting physician: Joesph Nath Primary Care Provider: [facility] Reason for consult: left great toe redness He presents primarily for shortness of breath for a day but also redness and some swelling left great toe CT shows evidence prior osteomyelitis He has no fever or leukocytosis Review of Systems Review of Systems: Yes all other systems are reviewed and are negative [facility] Past Medical History Medical History (Updated 10/08/21 @ 23:16 by Zully Roblero MD) Abscess or cellulitis of foot Acute on chronic anemia Acute on chronic combined systolic and diastolic congestive heart failure Asthma Bipolar 1 disorder BPH (benign prostatic hyperplasia) Cholelithiasis Closed wedge compression fracture of T9 vertebra COPD (chronic obstructive pulmonary disease) Diabetes mellitus, type 2 GERD (gastroesophageal reflux disease) Hyperlipidemia Lymphadenopathy Peripheral arterial disease Peripheral neuropathy Substance abuse Family History Family History Father Chronic mental illness Hypertension Asthma Stroke Mother Asthma Diabetes Coronary artery disease Family history: reviewed and not pertinent Surgical History Surgical History History of amputation History of laminectomy History of transurethral resection of prostate Hx of BKA Social History Social History Household Members: None Housing: Apartment Housing Other:: IN A LITTLE ROOM Do you presently have visiting nurse or other home services: Yes Alcohol intake: never Patient Tobacco Use Status: Never used Tobacco Second Hand Smoke Exposure: No Substance Use Type: Marijuana Advance Directives Date on File: 11/24/20 service: No Current occupational status: disabled Meds Allergies Allergy/AdvReac Type Severity Reaction Status Date / Time ertapenem Allergy Intermediate Hives Verified 07/20/21 01:06 vancomycin [VANCOMYCIN] Allergy Intermediate HIVES Verified 07/20/21 01:06 Chocolate Allergy Unknown Rash Verified 07/20/21 01:06 ciprofloxacin [From CIPRO] Allergy Unknown SWELLING Verified 07/20/21 01:06 hydrocortisone [Cipro HC] Allergy Unknown Unknown Verified 07/20/21 01:06 sulfamethoxazole Allergy Unknown rash Verified 07/20/21 01:06 [From BACTRIM] trimethoprim [From BACTRIM] Allergy Unknown rash Verified 07/20/21 01:06 turkey [TURKEY] Allergy Unknown RASH Verified 07/20/21 01:06 Active Medications: Current Medications Albuterol Sulfate (Albuterol Sulfate (0.083%) 2.5 Mg/3 Ml Vial.Neb) 2.5 mg INHALE Q4H PRN PRN Reason: Shortness Of Breath Or Wheezin Albuterol Sulfate (Albuterol Sulfate 90 Mcg 8 Gm Inhaler) 2 puff INHALE Q4H PRN PRN Reason: Shortness Of Breath Albuterol/Ipratropium (Albuterol/Iprat 2.5/0.5mg 3 Ml Ampul.Neb) 3 ml INHALE RQ4H PRN PRN Reason: Shortness of Breath/Wheezing Aspirin (Aspirin Enteric Coated 81 Mg Tablet.) 81 mg PO DAILY [facility] Last Admin: 10/08/21 09:21 Dose: 81 mg Documented by: Atorvastatin Calcium (Atorvastatin Calcium 20 Mg Tablet) 20 mg PO BEDTIME [facility] Last Admin: 10/08/21 21:26 Dose: 20 mg Documented by: Carvedilol (Carvedilol 6.25 Mg Tablet) 6.25 mg PO BID [facility]; Protocol Last Admin: 10/08/21 21:26 Dose: 6.25 mg Documented by: Clopidogrel Bisulfate (Clopidogrel Bisulfate 75 Mg Tablet) 75 mg PO DAILY [facility] Last Admin: 10/08/21 09:21 Dose: 75 mg Documented by: Dextrose (Dextrose 50 % 25 Gm/50 Ml Vial) 25 gm IVPUSH Q15M PRN; Protocol PRN Reason: per Hypoglycemia Standing Ord. Enoxaparin Sodium (Enoxaparin Sodium 40 Mg/0.4 Ml Syringe) 40 mg SUBCUT Q24H [facility] Last Admin: 10/08/21 05:19 Dose: Not Given Documented by: Fluticasone Propionate (Fluticasone Propionate Nasal 16 Gm [place]) 1 spray NOSTRIL-B DAILY [facility] Last Admin: 10/08/21 09:45 Dose: Not Given Documented by: Furosemide (Furosemide 40 Mg/4 Ml Vial) 80 mg IVPUSH DAILY [facility]; Protocol Last Admin: 10/08/21 09:20 Dose: 80 mg Documented by: Furosemide (Furosemide 40 Mg Tablet) 40 mg PO DAILY [facility]; Protocol Last Admin: 10/08/21 09:21 Dose: 40 mg Documented by: Gabapentin (Gabapentin 100 Mg Capsule) 200 mg PO TID [facility] Last Admin: 10/08/21 21:27 Dose: 200 mg Documented by: Glucose (Glucose Gel 15 Gm Gel..Gram.) 15 gm PO Q15M PRN; Protocol PRN Reason: per Hypoglycemia Standing Ord. Cefepime HCl 1 gm/ Sodium (Chloride) 50 mls @ 100 mls/hr IV Q8H [facility] Last Infusion: 10/08/21 20:09 Dose: Infused Documented by: Doxycycline Hyclate 100 mg/ (Sodium Chloride) 250 mls @ 166.67 mls/hr IV Q12H [facility] Last Infusion: 10/08/21 19:25 Dose: Infused Documented by: Insulin Glargine (Insulin Glargine,Hum.Rec.Anlog 100 Unit/Ml 10 Ml Vial) 12 unit SUBCUT BEDTIME [facility] Last Admin: 10/08/21 21:27 Dose: Not Given Documented by: Insulin Human Lispro (Insulin Lispro 100 Unit/Ml 3 Ml Vial) 0 unit SUBCUT QIDACHS [facility]; Protocol Last Admin: 10/08/21 21:27 Dose: Not Given Documented by: Loratadine (Loratadine 10 Mg Tablet) 10 mg PO DAILY [facility] Last Admin: 10/08/21 09:21 Dose: 10 mg Documented by: Melatonin (Melatonin 3 Mg Tablet) 6 mg PO BEDTIME PRN PRN Reason: Insomnia Methadone HCl (Methadone Hcl 20 Mg/2 Ml Oral.Conc) 50 mg PO DAILY [facility] Last Admin: 10/08/21 10:31 Dose: 50 mg Documented by: Montelukast Sodium (Montelukast Sodium 10 Mg Tablet) 10 mg PO BEDTIME [facility] Last Admin: 10/08/21 21:26 Dose: 10 mg Documented by: Pharmacy Consult (Consult Rx Perform Med Rec) 1 each MISCELLANE ONCE PRN PRN Reason: Consult order Senna (Sennosides 8.6 Mg Tablet) 17.2 mg PO BEDTIME PRN PRN Reason: Constipation Sodium Chloride (0.9 % Sodium Chloride Flush 3 Ml Syringe) 3 ml IVFLUSH QSHIFT [facility] Last Admin: 10/08/21 17:31 Dose: 3 ml Documented by: Spironolactone (Spironolactone 25 Mg Tablet) 12.5 mg PO DAILY [facility]; Protocol Last Admin: 10/08/21 09:21 Dose: 12.5 mg Documented by: Tamsulosin HCl (Tamsulosin Hcl 0.4 Mg Capsule) 0.4 mg PO DAILY [facility] Last Admin: 10/08/21 09:21 Dose: 0.4 mg Documented by: Home Medications Medication Instructions Recorded Confirmed Last Taken Type FreeStyle Lite Strips 08/12/20 02/13/21 Unknown History albuterol sulfate 2.5 mg INHALATION Q4H PRN 08/12/20 10/08/21 Unknown History albuterol sulfate 90 mcg/actuation 2 puff INHALATION Q4H PRN 08/12/20 10/08/21 Unknown History aerosol inhaler blood-glucose meter (FreeStyle 08/12/20 02/13/21 Unknown History [place] Lite) cane 08/12/20 02/13/21 Unknown History lancets 08/12/20 02/13/21 Unknown History methadone 10 mg/mL oral concentrate 50 mg PO QAM 08/12/20 10/08/21 01/02/21 History pen needle, diabetic 08/12/20 02/13/21 Unknown History aspirin 81 mg tablet,delayed 81 mg PO DAILY 08/14/20 10/08/21 Unknown History release atorvastatin 20 mg tablet 20 mg PO BEDTIME 08/14/20 10/08/21 Unknown History carvedilol 6.25 mg tablet 6.25 mg PO BID 08/14/20 10/08/21 Unknown History cetirizine 10 mg tablet 10 mg PO DAILY 08/14/20 10/08/21 Unknown History fluticasone propionate 50 1 spray INTRANASAL DAILY 08/14/20 10/08/21 Unknown History mcg/actuation nasal spray,suspension (Flonase Allergy Relief) gabapentin 100 mg capsule 200 mg PO TID 08/14/20 10/08/21 Unknown History insulin glargine 100 unit/mL 12 unit SUBCUT QPM 08/14/20 10/08/21 Unknown History subcutaneous solution (Lantus U-100 Insulin) montelukast 10 mg tablet 10 mg PO BEDTIME 08/14/20 10/08/21 Unknown History spironolactone 25 mg tablet 12.5 mg PO DAILY 08/14/20 10/08/21 Unknown History tamsulosin 0.4 mg capsule 0.4 mg PO DAILY 08/14/20 10/08/21 Unknown History clopidogrel 75 mg tablet 1 tab PO QAM 10/08/21 10/08/21 Unknown History Physical Exam Vital Signs: Vital Signs: Last Vital Signs Temp 98.0 F 10/08/21 23:04 Pulse 56 10/08/21 23:04 Resp 18 10/08/21 23:04 BP 115/65 10/08/21 23:04 Pulse Ox 100 10/08/21 23:04 Body Mass Index 25.2 Const: General: cooperative Eyes: General: appearance normal, both eyes and all related structures Resp: Effort & Inspection: normal respiratory effort Cardio: Rate: regular rate GI: Palpation (GI): Soft to palpation and nontender Skin: General skin exam: no rashes or lesions noted Extrem: Other: left great toe abrasion Results Labs CBC & Chem 7: 10/08/21 04:43 10/08/21 04:43 Labs: Short CBC 10/08/21 10/08/21 Range/Units 00:30 04:43 WBC 7.4 6.5 (4.8-10.8) X10*3/uL Hgb 11.3 L 12.1 L (14.0-18.0) g/dl Hct 34.8 L 37.7 L (42.0-52.0) % Plt Count 271 286 (160-400) X10*3/uL BMP 10/08/21 10/08/21 00:30 04:43 Sodium 135 135 Potassium 3.9 4.2 Chloride 98 97 Carbon Dioxide 28 28 BUN 13 13 Creatinine 0.77 0.79 Calcium 9.6 D 9.9 Liver Function 10/08/21 Range/Units 00:30 Total Bilirubin 0.4 (0.0-1.0) mg/dL Direct Bilirubin 0.2 (0.0-0.5) mg/dL AST 18 (5-37) U/L ALT 8 (0-40) U/L Alkaline Phosphatase 113 (39-117) U/L Albumin 3.7 (3.5-5.0) g/dL Urine 10/08/21 Range/Units 02:15 Urine Color YELLOW Urine Appearance CLEAR Urine pH 6.5 (5.0-8.0) Ur Specific [place] 1.020 (1.005-1.025) Urine Protein 2+ H (NEG-TRACE) MG/DL Urine Glucose (UA) NEG (NEG) MG/DL Assessment and Plan (1) Abscess or cellulitis of foot: Status: Acute He has superficial cellulitis at this time There is evidence of old osteomyelitis He has left cellulitis He has right BKA Continue Cefepime and Doxycycline over weekend and then po Doxycycline and Keflex for a week
[2021-10-09] VITALS (10 sets, daily range): BP systolic 97–134; BP diastolic 54–70; PULSE 51–80; RESP 17–18; TEMP 36.1–36.7; O2SAT 95–100; BMI 25.9
[2021-10-09] MEDS: Acetaminophen 325 MG TABLET 650 MG PO (00:38)
[2021-10-09] MEDS: Melatonin 3 MG TABLET 6 MG PO ×2 (00:38→23:00)
[2021-10-09] MEDS: 0.9 % Sodium Chloride Flush 3 ML SYRINGE IVFLUSH ×4 (00:41→20:40)
[2021-10-09] MEDS: cefEPime HCl 1 GM in 0.9 % Sodium Chloride 50 ML IV ×3 (03:21→20:38)
[2021-10-09] MEDS: Doxycycline Hyclate 100 MG in 0.9 % Sodium Chloride 250 ML 166.67 MG IV ×2 (03:58→16:58)
[2021-10-09] MEDS: HYDROmorphone HCl 0.5 MG/0.5 ML SYRINGE IVPUSH (04:56)
[2021-10-09 07:43] LABS: Glucose, Whole Blood 90 mg/dL (60-115)
[2021-10-09] MEDS: Gabapentin 100 MG CAPSULE 200 MG PO ×3 (08:24→20:38)
[2021-10-09] MEDS: Aspirin Enteric Coated 81 MG TABLET.DR PO (08:24)
[2021-10-09] MEDS: carvediloL 6.25 MG TABLET PO ×2 (08:24→20:39)
[2021-10-09] MEDS: Clopidogrel Bisulfate 75 MG TABLET PO (08:25)
[2021-10-09] MEDS: Spironolactone 25 MG TABLET 12.5 MG PO (08:26)
[2021-10-09] MEDS: Furosemide 40 MG TABLET PO (08:26)
[2021-10-09] MEDS: Tamsulosin HCL 0.4 MG CAPSULE PO (08:26)
[2021-10-09] MEDS: Loratadine 10 MG TABLET PO (08:29)
[2021-10-09] MEDS: Furosemide 40 MG/4 ML VIAL 80 MG IVPUSH (08:34)
[2021-10-09] MEDS: methADONE HCl 20 MG/2 ML ORAL.CONC 50 MG PO (09:39)
--- NOTE | 2021-10-09 10:32 | P.PNCA_ITS ---
Subjective Subjective Date of Service: 10/09/21 Principal diagnosis: Acute CHF Interval history: Patient is feeling better today. Overall he says that he is feeling tired but no other complaints. Able to lay flat. Intake and output chart are not accurate. Review of Systems Constitutional: Reports fatigue and Reports malaise Eyes: Reports no additional eye complaints Cardiovascular: Denies lightheadedness, Denies palpitations and Reports dyspnea on exertion Respiratory: Reports no additional respiratory complaints and Reports dyspnea on exertion Gastrointestinal: Reports no additional gastrointestinal complaints Reports system reviewed and no additional complaints, except as documented Endocrine: Reports no additional endocrine complaints, Reports fatigue and Denies palpitations Physical Exam Vital Signs: Last Vital Signs Temp 97.3 F 10/09/21 08:00 Pulse 60 10/09/21 09:41 Resp 18 10/09/21 08:00 BP 119/60 10/09/21 09:41 Pulse Ox 97 10/09/21 08:00 Body Mass Index 25.9 Const General: cooperative, comfortable, no acute distress, alert, awake and ill appearing Nutritional Appearance: average body habitus Orientation/consciousness: patient oriented x3 Neck Neck: Yes trachea midline, Yes supple and Yes JVD Resp Effort & Inspection: normal respiratory effort Auscultation: no rales, no wheezes and diminished lung sounds Cardio Palpation: abnormal PMI displaced PMI Rate: regular rate Rhythm: regular rhythm Heart sounds: S1 normal heart sound present, S2 normal heart sound present, no click, no gallops and no murmurs GI Auscultation: normal bowel sounds Skin General skin exam: no rashes or lesions noted Neuro General: patient oriented x3 and no focal motor deficits Extrem General: Yes no clubbing, cyanosis or edema Objective Labs and Meds Result diagrams: 10/08/21 04:43 10/08/21 04:43 Lab results: Laboratory Results - last 24 hr 10/08/21 10/08/21 10/08/21 11:49 17:05 20:44 POC Glucose 102 155 H 104 10/09/21 07:30 POC Glucose 90 Progress Note: A&P Assessment and plan (1) Acute exacerbation of CHF (congestive heart failure): Status: Acute Assessment and Plan: Patient present with acute congestive heart failure secondary to underlying severe ischemic cardiomyopathy with severely reduced LV systolic dysfunction. Clinically still appears to be mildly fluid overloaded. Will continue IV diuresis with Lasix 40 mg. Strict intake and output chart needs to be pursued. Trend BMP and BNP and check electrolytes and replace electrolytes as needed. Patient on carvedilol and spironolactone. However please start him on Diovan 40 mg b.i.d. for neurohormonal modulation as well. This is important. Trend renal function after that. Was discussed with patient about management of heart failure. He seems not to have much insight into it. CHF education needs to be provided to him. 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 He says his issues with rides due to his amputation that he cannot make it to the clinic visit. This needs to be addressed by the case checker. Will follow with you 1 more day. Fall Risk Details Current Medications: Current Medications Acetaminophen (Acetaminophen 325 Mg Tablet) 650 mg PO Q6H PRN PRN Reason: pain/fever Last Admin: 10/09/21 00:38 Dose: 650 mg Documented by: Albuterol Sulfate (Albuterol Sulfate (0.083%) 2.5 Mg/3 Ml Vial.Neb) 2.5 mg INHALE Q4H PRN PRN Reason: Shortness Of Breath Or Wheezin Albuterol Sulfate (Albuterol Sulfate 90 Mcg 8 Gm Inhaler) 2 puff INHALE Q4H PRN PRN Reason: Shortness Of Breath Albuterol/Ipratropium (Albuterol/Iprat 2.5/0.5mg 3 Ml Ampul.Neb) 3 ml INHALE RQ4H PRN PRN Reason: Shortness of Breath/Wheezing Aspirin (Aspirin Enteric Coated 81 Mg Tablet.) 81 mg PO DAILY [facility] Last Admin: 10/09/21 08:24 Dose: 81 mg Documented by: Atorvastatin Calcium (Atorvastatin Calcium 20 Mg Tablet) 20 mg PO BEDTIME [facility] Last Admin: 10/08/21 21:26 Dose: 20 mg Documented by: Carvedilol (Carvedilol 6.25 Mg Tablet) 6.25 mg PO BID [facility]; Protocol Last Admin: 10/09/21 08:24 Dose: 6.25 mg Documented by: Clopidogrel Bisulfate (Clopidogrel Bisulfate 75 Mg Tablet) 75 mg PO DAILY [facility] Last Admin: 10/09/21 08:25 Dose: 75 mg Documented by: Dextrose (Dextrose 50 % 25 Gm/50 Ml Vial) 25 gm IVPUSH Q15M PRN; Protocol PRN Reason: per Hypoglycemia Standing Ord. Enoxaparin Sodium (Enoxaparin Sodium 40 Mg/0.4 Ml Syringe) 40 mg SUBCUT Q24H [facility] Last Admin: 10/09/21 03:28 Dose: Not Given Documented by: Fluticasone Propionate (Fluticasone Propionate Nasal 16 Gm [place]) 1 spray NOSTRIL-B DAILY [facility] Last Admin: 10/08/21 09:45 Dose: Not Given Documented by: Furosemide (Furosemide 40 Mg/4 Ml Vial) 80 mg IVPUSH DAILY [facility]; Protocol Last Admin: 10/09/21 08:34 Dose: 80 mg Documented by: Furosemide (Furosemide 40 Mg Tablet) 40 mg PO DAILY [facility]; Protocol Last Admin: 10/09/21 08:26 Dose: 40 mg Documented by: Gabapentin (Gabapentin 100 Mg Capsule) 200 mg PO TID [facility] Last Admin: 10/09/21 08:24 Dose: 200 mg Documented by: Glucose (Glucose Gel 15 Gm Gel..Gram.) 15 gm PO Q15M PRN; Protocol PRN Reason: per Hypoglycemia Standing Ord. Cefepime HCl 1 gm/ Sodium (Chloride) 50 mls @ 100 mls/hr IV Q8H [facility] Last Infusion: 10/09/21 04:09 Dose: Infused Documented by: Doxycycline Hyclate 100 mg/ (Sodium Chloride) 250 mls @ 166.67 mls/hr IV Q12H [facility] Last Infusion: 10/09/21 06:32 Dose: Infused Documented by: Insulin Glargine (Insulin Glargine,Hum.Rec.Anlog 100 Unit/Ml 10 Ml Vial) 12 unit SUBCUT BEDTIME [facility] Last Admin: 10/08/21 21:27 Dose: Not Given Documented by: Insulin Human Lispro (Insulin Lispro 100 Unit/Ml 3 Ml Vial) 0 unit SUBCUT QIDACHS [facility]; Protocol Last Admin: 10/09/21 07:48 Dose: Not Given Documented by: Loratadine (Loratadine 10 Mg Tablet) 10 mg PO DAILY [facility] Last Admin: 10/09/21 08:29 Dose: 10 mg Documented by: Melatonin (Melatonin 3 Mg Tablet) 6 mg PO BEDTIME PRN PRN Reason: Insomnia Last Admin: 10/09/21 00:38 Dose: 6 mg Documented by: Methadone HCl (Methadone Hcl 20 Mg/2 Ml Oral.Conc) 50 mg PO DAILY [facility] Last Admin: 10/09/21 09:39 Dose: 50 mg Documented by: Montelukast Sodium (Montelukast Sodium 10 Mg Tablet) 10 mg PO BEDTIME [facility] Last Admin: 10/08/21 21:26 Dose: 10 mg Documented by: Pharmacy Consult (Consult Rx Perform Med Rec) 1 each MISCELLANE ONCE PRN PRN Reason: Consult order Senna (Sennosides 8.6 Mg Tablet) 17.2 mg PO BEDTIME PRN PRN Reason: Constipation Sodium Chloride (0.9 % Sodium Chloride Flush 3 Ml Syringe) 3 ml IVFLUSH QSHIFT [facility] Last Admin: 10/09/21 08:24 Dose: 3 ml Documented by: Spironolactone (Spironolactone 25 Mg Tablet) 12.5 mg PO DAILY [facility]; Protocol Last Admin: 10/09/21 08:26 Dose: 12.5 mg Documented by: Tamsulosin HCl (Tamsulosin Hcl 0.4 Mg Capsule) 0.4 mg PO DAILY [facility] Last Admin: 10/09/21 08:26 Dose: 0.4 mg Documented by: Time Spent With Patient Time: Total time spent is greater than 50% in coordination of care (as documented) at patient's floor/unit and/or counseling patient: Time with patient: 15 - 24 minutes Progress Note: Quality Stroke Does the patient have a stroke diagnosis?: No Procedures Date of Service Date of Service: 10/09/21
[2021-10-09 12:07] LABS: Glucose, Whole Blood 156 mg/dL (60-115)
[2021-10-09] MEDS: Insulin Lispro 100 UNIT/ML 3 ML VIAL SUBCUT (12:24)
--- NOTE | 2021-10-09 14:07 | P.PNIM_ITS ---
Subjective Subjective Date of Service: 10/09/21 Review of Systems Follow up HF, Cellulitis sob is better still with pain to left foot wound Denied chest pain, sob, nausea, vomiting, diarrhea All other systems are reviewed and are negative Physical Exam Vital Signs: Vital Signs: Last Vital Signs Temp 97.3 F 10/09/21 08:00 Pulse 60 10/09/21 09:41 Resp 18 10/09/21 08:00 BP 119/60 10/09/21 09:41 Pulse Ox 97 10/09/21 08:00 Body Mass Index 25.9 Appearing in no acute distress lung sounds are clear to auscultation heart regular rate rhythm, clear S1, S2 positive bowel sounds, abdomen is soft, nontender neuro patient is alert x3, no focal deficits Left great toe quarter sized wound with eschar Objective Data Active Medications Acetaminophen (Acetaminophen 325 Mg Tablet) 650 mg PO Q6H PRN PRN Reason: pain/fever Last Admin: 10/09/21 00:38 Dose: 650 mg Documented by: BLANCA Albuterol Sulfate (Albuterol Sulfate (0.083%) 2.5 Mg/3 Ml Vial.Neb) 2.5 mg INHALE Q4H PRN PRN Reason: Shortness Of Breath Or Wheezin Albuterol Sulfate (Albuterol Sulfate 90 Mcg 8 Gm Inhaler) 2 puff INHALE Q4H PRN PRN Reason: Shortness Of Breath Albuterol/Ipratropium (Albuterol/Iprat 2.5/0.5mg 3 Ml Ampul.Neb) 3 ml INHALE RQ4H PRN PRN Reason: Shortness of Breath/Wheezing Aspirin (Aspirin Enteric Coated 81 Mg Tablet.) 81 mg PO DAILY [facility] Last Admin: 10/09/21 08:24 Dose: 81 mg Documented by: FAIZA Atorvastatin Calcium (Atorvastatin Calcium 20 Mg Tablet) 20 mg PO BEDTIME [facility] Last Admin: 10/08/21 21:26 Dose: 20 mg Documented by: MUNDO Carvedilol (Carvedilol 6.25 Mg Tablet) 6.25 mg PO BID [facility]; Protocol Last Admin: 10/09/21 08:24 Dose: 6.25 mg Documented by: FAIZA Clopidogrel Bisulfate (Clopidogrel Bisulfate 75 Mg Tablet) 75 mg PO DAILY [facility] Last Admin: 10/09/21 08:25 Dose: 75 mg Documented by: FAIZA Dextrose (Dextrose 50 % 25 Gm/50 Ml Vial) 25 gm IVPUSH Q15M PRN; Protocol PRN Reason: per Hypoglycemia Standing Ord. Enoxaparin Sodium (Enoxaparin Sodium 40 Mg/0.4 Ml Syringe) 40 mg SUBCUT Q24H [facility] Last Admin: 10/09/21 03:28 Dose: Not Given Documented by: MINNIE Non-Admin Reason: Patient Refused Fluticasone Propionate (Fluticasone Propionate Nasal 16 Gm [place]) 1 spray NOSTRIL-B DAILY [facility] Last Admin: 10/09/21 12:11 Dose: Not Given Documented by: FAIZA Non-Admin Reason: Patient Refused Furosemide (Furosemide 40 Mg/4 Ml Vial) 80 mg IVPUSH DAILY [facility]; Protocol Last Admin: 10/09/21 08:34 Dose: 80 mg Documented by: FAIZA Furosemide (Furosemide 40 Mg Tablet) 40 mg PO DAILY [facility]; Protocol Last Admin: 10/09/21 08:26 Dose: 40 mg Documented by: FAIZA Gabapentin (Gabapentin 100 Mg Capsule) 200 mg PO TID [facility] Last Admin: 10/09/21 08:24 Dose: 200 mg Documented by: FAIZA Glucose (Glucose Gel 15 Gm Gel..Gram.) 15 gm PO Q15M PRN; Protocol PRN Reason: per Hypoglycemia Standing Ord. Cefepime HCl 1 gm/ Sodium (Chloride) 50 mls @ 100 mls/hr IV Q8H [facility] Last Infusion: 10/09/21 13:37 Dose: 0 mls/hr Documented by: FAIZA Doxycycline Hyclate 100 mg/ (Sodium Chloride) 250 mls @ 166.67 mls/hr IV Q12H [facility] Last Infusion: 10/09/21 06:32 Dose: 0 mls/hr Documented by: BLANCA Insulin Glargine (Insulin Glargine,Hum.Rec.Anlog 100 Unit/Ml 10 Ml Vial) 12 unit SUBCUT BEDTIME [facility] Last Admin: 10/08/21 21:27 Dose: Not Given Documented by: MUNDO Non-Admin Reason: No Insulin Coverage Insulin Human Lispro (Insulin Lispro 100 Unit/Ml 3 Ml Vial) 0 unit SUBCUT QIDACHS [facility]; Protocol Last Admin: 10/09/21 12:24 Dose: 2 unit Documented by: FAIZA Loratadine (Loratadine 10 Mg Tablet) 10 mg PO DAILY [facility] Last Admin: 10/09/21 08:29 Dose: 10 mg Documented by: FAIZA Melatonin (Melatonin 3 Mg Tablet) 6 mg PO BEDTIME PRN PRN Reason: Insomnia Last Admin: 10/09/21 00:38 Dose: 6 mg Documented by: BLANCA Methadone HCl (Methadone Hcl 20 Mg/2 Ml Oral.Conc) 50 mg PO DAILY [facility] Last Admin: 10/09/21 09:39 Dose: 50 mg Documented by: FAIZA Montelukast Sodium (Montelukast Sodium 10 Mg Tablet) 10 mg PO BEDTIME [facility] Last Admin: 10/08/21 21:26 Dose: 10 mg Documented by: MUNDO Pharmacy Consult (Consult Rx Perform Med Rec) 1 each MISCELLANE ONCE PRN PRN Reason: Consult order Senna (Sennosides 8.6 Mg Tablet) 17.2 mg PO BEDTIME PRN PRN Reason: Constipation Sodium Chloride (0.9 % Sodium Chloride Flush 3 Ml Syringe) [facility] Last Admin: 10/09/21 08:24 Dose: 3 ml Documented by: FAIZA Spironolactone (Spironolactone 25 Mg Tablet) 12.5 mg PO DAILY [facility]; Protocol Last Admin: 10/09/21 08:26 Dose: 12.5 mg Documented by: FAIZA Tamsulosin HCl (Tamsulosin Hcl 0.4 Mg Capsule) 0.4 mg PO DAILY [facility] Last Admin: 10/09/21 08:26 Dose: 0.4 mg Documented by: FAIZA Labs CBC & Chem 7: 10/08/21 04:43 10/08/21 04:43 Labs: Laboratory Results - last 24 hr 10/08/21 10/08/21 10/09/21 17:05 20:44 07:30 POC Glucose 155 H 104 90 10/09/21 11:43 POC Glucose 156 H Assessment and Plan (1) HFrEF (heart failure with reduced ejection fraction): Status: Acute (2) Osteomyelitis: Status: Acute (3) Opiate abuse, continuous: Status: Acute (4) Diabetes mellitus: Status: Acute Assessment and Plan: 51-year-old male with past medical history of hypertension, hyperlipidemia, diabetes, systolic CHF with EF of 15-20%, chronic anemia, bipolar disorder, BPH, peripheral vascular disease, history of substance abuse, opiate dependence, benign compression wedge fracture, COPD, GERD presented to the hospital today with a chief complaint of shortness of breath.? Noted to be in CHF exacerbation.? Admitted for further management.? HFrEF acute exacerbation COLT EF 15-20% with rwma Continue Lasix 80 mg IV daily Cardiology consult Telemetry Right great toe wound Noted to have healing granulation tissue/eschar, acute vs chronic osteo noted on CT will keep the patient on cefepime and doxycycline through the weekend then switch to po doxy and Keflex for one week as per ID general surgery for possible debridement? Diabetes Insulin sliding scale ADA diet COPD. No exacerbation DuoNebs p.r.n. Hypertension/hyperlipidemia Continue home medications Opiate dependence Patient on methadone Will consult Addiction Medicine for confirmation and resuming patient's home methadone. DVT prophylaxis:? Lovenox Code status: Full code Attending Dr. Brown Quality Stroke Does the patient have a stroke diagnosis?: No VTE Prior VTE?: No VTE Risk Level:: Medical - moderate - high VTE Device Contraindication: Treatment Not Indicated VTE Drug Contraindication: N/A - Med Ordered
[2021-10-09 16:38] LABS: Glucose, Whole Blood 121 mg/dL (60-115)
[2021-10-09 20:22] LABS: Glucose, Whole Blood 138 mg/dL (60-115)
[2021-10-09] MEDS: Atorvastatin Calcium 20 MG TABLET PO (20:39)
[2021-10-09] MEDS: Montelukast Sodium 10 MG TABLET PO (20:39)
[2021-10-09] MEDS: Insulin Glargine,Hum.rec.anlog 100 UNIT/ML 10 ML VIAL 12 UNIT SUBCUT (20:39)
[2021-10-10] VITALS (8 sets, daily range): BP systolic 105–130; BP diastolic 57–78; PULSE 59–68; RESP 18–20; TEMP 36.1–36.7; O2SAT 96–99; BMI 26.4
[2021-10-10] MEDS: cefEPime HCl 1 GM in 0.9 % Sodium Chloride 50 ML IV ×3 (03:35→19:51)
[2021-10-10] MEDS: Doxycycline Hyclate 100 MG in 0.9 % Sodium Chloride 250 ML 166.67 MG IV ×2 (04:11→17:49)
[2021-10-10 06:25] LABS: Hemoglobin 10.9 g/dl (14.0-18.0); Mean Corpuscular HGB Conc 32.1 g/dl (31.0-36.0); Mean Corpuscular Hemoglobin 26.5 pg (27.0-33.0); Mean Corpuscular Volume 82.7 fL (80.0-98.0); Mean Platelet Volume 10.2 fL (9.4-12.4); Platelet Count 269 X10*3/uL (160-400); Red Blood Count 4.11 X10*6/uL (4.60-5.80); Red Cell Distribution Width 14.1 % (11.0-16.0)
[2021-10-10 06:43] LABS: B Type Natriuretic Peptide 581 pg/mL (<100)
[2021-10-10 07:06] LABS: Anion Gap 15 (12-20); Blood Urea Nitrogen 33 mg/dL (9-16); Calcium 9.2 mg/dL (8.4-10.2); Carbon Dioxide 28 mmol/L (22-29); Chloride 95 mmol/L (96-108); Creatinine Clr Calc Pharmacy 57.5; Estimated Glomerular Filt Rate 56; Glucose Random 96 mg/dL (60-115); Potassium 4.7 mmol/L (3.3-5.1); Sodium 133 mmol/L (135-145)
[2021-10-10 07:55] LABS: Glucose, Whole Blood 117 mg/dL (60-115)
[2021-10-10] MEDS: 0.9 % Sodium Chloride Flush 3 ML SYRINGE IVFLUSH ×3 (08:27→21:42)
[2021-10-10] MEDS: methADONE HCl 20 MG/2 ML ORAL.CONC 50 MG PO (08:27)
[2021-10-10] MEDS: Spironolactone 25 MG TABLET 12.5 MG PO (08:27)
[2021-10-10] MEDS: Aspirin Enteric Coated 81 MG TABLET.DR PO (08:28)
[2021-10-10] MEDS: Furosemide 40 MG TABLET PO (08:28)
[2021-10-10] MEDS: Gabapentin 100 MG CAPSULE 200 MG PO ×3 (08:28→20:01)
[2021-10-10] MEDS: Clopidogrel Bisulfate 75 MG TABLET PO (08:29)
[2021-10-10] MEDS: Loratadine 10 MG TABLET PO (08:29)
[2021-10-10] MEDS: carvediloL 6.25 MG TABLET PO ×2 (08:29→20:01)
[2021-10-10] MEDS: Tamsulosin HCL 0.4 MG CAPSULE PO (08:29)
[2021-10-10] MEDS: Valsartan 40 MG TABLET PO ×2 (08:30→20:01)
--- NOTE | 2021-10-10 11:32 | PM.PNCARD ---
Subjective Subjective Date of Service: 10/10/21 Principal diagnosis: Acute CHF Interval history: No cardiovascular symptoms. Is having right flank and rib cage pain with movement. No shortness of breath or orthopnea. No cardiac arrhythmias. His BNP is down trended. Intake and output chart are unreliable. Review of Systems Review of Systems Yes all other systems are reviewed and are negative Physical Exam Vital Signs: Last Vital Signs Temp 97.7 F 10/10/21 11:12 Pulse 59 10/10/21 11:12 Resp 18 10/10/21 11:12 BP 105/66 10/10/21 11:12 Pulse Ox 96 10/10/21 11:12 Body Mass Index 26.4 Const General: cooperative, comfortable, no acute distress, alert and awake Nutritional Appearance: average body habitus Orientation/consciousness: patient oriented x3 Neck Neck: Yes trachea midline, Yes supple and Yes no JVD Resp Effort & Inspection: normal respiratory effort Auscultation: clear to auscultation bilaterally Cardio Jugular venous distension: no JVD Palpation: abnormal PMI Rate: regular rate Rhythm: regular rhythm Heart sounds: S1 normal heart sound present, S2 normal heart sound present, no click, no gallops and no murmurs Skin General skin exam: no rashes or lesions noted Neuro General: patient oriented x3 and no focal motor deficits Extrem General: Yes no clubbing, cyanosis or edema Objective Labs and Meds Result diagrams: 10/10/21 05:44 10/10/21 05:44 Lab results: Laboratory Results - last 24 hr 10/09/21 10/09/21 10/09/21 11:43 16:25 20:15 WBC RBC Hgb Hct MCV MCH MCHC RDW Plt Count MPV Absolute Nucleated RBC Nucleated RBC % (auto) Sodium Potassium Chloride Carbon Dioxide Anion Gap BUN Creatinine Estim Creat Clear Calc Estimated GFR POC Glucose 156 H 121 H 138 H Random Glucose Calcium B-Natriuretic Peptide 10/10/21 10/10/21 10/10/21 05:44 05:44 05:44 WBC 7.0 RBC 4.11 L Hgb 10.9 L Hct 34.0 L MCV 82.7 MCH 26.5 L MCHC 32.1 RDW 14.1 Plt Count 269 MPV 10.2 Absolute Nucleated RBC 0.000 Nucleated RBC % (auto) 0.0 Sodium 133 L Potassium 4.7 Chloride 95 L Carbon Dioxide 28 Anion Gap 15 BUN 33 H D Creatinine 1.34 Estim Creat Clear Calc 57.5 Estimated GFR 56 POC Glucose Random Glucose 96 Calcium 9.2 D B-Natriuretic Peptide 581 H 10/10/21 07:28 WBC RBC Hgb Hct MCV MCH MCHC RDW Plt Count MPV Absolute Nucleated RBC Nucleated RBC % (auto) Sodium Potassium Chloride Carbon Dioxide Anion Gap BUN Creatinine Estim Creat Clear Calc Estimated GFR POC Glucose 117 H Random Glucose Calcium B-Natriuretic Peptide Progress Note: A&P Assessment and plan (1) HFrEF (heart failure with reduced ejection fraction): Status: Acute Assessment and Plan: Patient admitted with acute congestive heart failure. This is doing well clinically. Clinically appears to be euvolemic. Continue with p.o. Lasix. Heart failure education needs to be provided. Continue with carvedilol, spironolactone. Diovan was added yesterday as well. Noted increasing creatinine. This will need to be pursued as outpatient. Continue with Diovan therapy for now. This will overall help long-term with his heart failure syndrome. He requires close follow-up and also a lot of social help, case management should be involved in his care. This will lead to improvement in his overall outcome and reduction hospitalization. Not sure of his cardiology follow-up. If he is willing to will see him in the Cardiology Clinic, seems like he was seen by [facility]. (2) Ischemic cardiomyopathy: Status: Acute Assessment and Plan: Severe ischemic cardiomyopathy. Continue neurohormonal modulation as above. Follow-up BMP in 1 week. Follow-up with PCP. Also requires cardiology follow-up as outpatient. Will require ischemic workup as well. Fall Risk Details Current Medications: Current Medications Acetaminophen (Acetaminophen 325 Mg Tablet) 650 mg PO Q6H PRN PRN Reason: pain/fever Last Admin: 10/09/21 00:38 Dose: 650 mg Documented by: Albuterol Sulfate (Albuterol Sulfate (0.083%) 2.5 Mg/3 Ml Vial.Neb) 2.5 mg INHALE Q4H PRN PRN Reason: Shortness Of Breath Or Wheezin Albuterol Sulfate (Albuterol Sulfate 90 Mcg 8 Gm Inhaler) 2 puff INHALE Q4H PRN PRN Reason: Shortness Of Breath Albuterol/Ipratropium (Albuterol/Iprat 2.5/0.5mg 3 Ml Ampul.Neb) 3 ml INHALE RQ4H PRN PRN Reason: Shortness of Breath/Wheezing Aspirin (Aspirin Enteric Coated 81 Mg Tablet.) 81 mg PO DAILY [facility] Last Admin: 10/10/21 08:28 Dose: 81 mg Documented by: Atorvastatin Calcium (Atorvastatin Calcium 20 Mg Tablet) 20 mg PO BEDTIME [facility] Last Admin: 10/09/21 20:39 Dose: 20 mg Documented by: Carvedilol (Carvedilol 6.25 Mg Tablet) 6.25 mg PO BID [facility]; Protocol Last Admin: 10/10/21 08:29 Dose: 6.25 mg Documented by: Clopidogrel Bisulfate (Clopidogrel Bisulfate 75 Mg Tablet) 75 mg PO DAILY [facility] Last Admin: 10/10/21 08:29 Dose: 75 mg Documented by: Dextrose (Dextrose 50 % 25 Gm/50 Ml Vial) 25 gm IVPUSH Q15M PRN; Protocol PRN Reason: per Hypoglycemia Standing Ord. Enoxaparin Sodium (Enoxaparin Sodium 40 Mg/0.4 Ml Syringe) 40 mg SUBCUT Q24H [facility] Last Admin: 10/10/21 03:38 Dose: Not Given Documented by: Fluticasone Propionate (Fluticasone Propionate Nasal 16 Gm [place]) 1 spray NOSTRIL-B DAILY [facility] Last Admin: 10/09/21 12:11 Dose: Not Given Documented by: Furosemide (Furosemide 40 Mg Tablet) 40 mg PO DAILY [facility]; Protocol Last Admin: 10/10/21 08:28 Dose: 40 mg Documented by: Gabapentin (Gabapentin 100 Mg Capsule) 200 mg PO TID [facility] Last Admin: 10/10/21 08:28 Dose: 200 mg Documented by: Glucose (Glucose Gel 15 Gm Gel..Gram.) 15 gm PO Q15M PRN; Protocol PRN Reason: per Hypoglycemia Standing Ord. Cefepime HCl 1 gm/ Sodium (Chloride) 50 mls @ 100 mls/hr IV Q8H [facility] Last Infusion: 10/10/21 04:13 Dose: Infused Documented by: Doxycycline Hyclate 100 mg/ (Sodium Chloride) 250 mls @ 166.67 mls/hr IV Q12H [facility] Last Infusion: 10/10/21 05:45 Dose: Infused Documented by: Insulin Glargine (Insulin Glargine,Hum.Rec.Anlog 100 Unit/Ml 10 Ml Vial) 12 unit SUBCUT BEDTIME [facility] Last Admin: 10/09/21 20:39 Dose: 12 unit Documented by: Insulin Human Lispro (Insulin Lispro 100 Unit/Ml 3 Ml Vial) 0 unit SUBCUT QIDACHS [facility]; Protocol Last Admin: 10/10/21 08:03 Dose: Not Given Documented by: Loratadine (Loratadine 10 Mg Tablet) 10 mg PO DAILY [facility] Last Admin: 10/10/21 08:29 Dose: 10 mg Documented by: Melatonin (Melatonin 3 Mg Tablet) 6 mg PO BEDTIME PRN PRN Reason: Insomnia Last Admin: 10/09/21 23:00 Dose: 6 mg Documented by: Methadone HCl (Methadone Hcl 20 Mg/2 Ml Oral.Conc) 50 mg PO DAILY [facility] Last Admin: 10/10/21 08:27 Dose: 50 mg Documented by: Montelukast Sodium (Montelukast Sodium 10 Mg Tablet) 10 mg PO BEDTIME [facility] Last Admin: 10/09/21 20:39 Dose: 10 mg Documented by: Pharmacy Consult (Consult Rx Perform Med Rec) 1 each MISCELLANE ONCE PRN PRN Reason: Consult order Senna (Sennosides 8.6 Mg Tablet) 17.2 mg PO BEDTIME PRN PRN Reason: Constipation Sodium Chloride (0.9 % Sodium Chloride Flush 3 Ml Syringe) 3 ml IVFLUSH QSHIFT [facility] Last Admin: 10/10/21 08:27 Dose: 3 ml Documented by: Spironolactone (Spironolactone 25 Mg Tablet) 12.5 mg PO DAILY [facility]; Protocol Last Admin: 10/10/21 08:27 Dose: 12.5 mg Documented by: Tamsulosin HCl (Tamsulosin Hcl 0.4 Mg Capsule) 0.4 mg PO DAILY [facility] Last Admin: 10/10/21 08:29 Dose: 0.4 mg Documented by: Valsartan (Valsartan 40 Mg Tablet) 40 mg PO BID [facility]; Protocol Last Admin: 10/10/21 08:30 Dose: 40 mg Documented by: Time Spent With Patient Time: Total time spent is greater than 50% in coordination of care (as documented) at patient's floor/unit and/or counseling patient: Time with patient: 15 - 24 minutes Progress Note: Quality Stroke Does the patient have a stroke diagnosis?: No Procedures Date of Service Date of Service: 10/10/21
[2021-10-10 11:36] LABS: Glucose, Whole Blood 143 mg/dL (60-115)
--- NOTE | 2021-10-10 11:49 | P.PNIM_ITS ---
Subjective Subjective Date of Service: 10/10/21 Interval History: Feeling better this morning complaining of coughing and chest discomfort requesting for Advair inhaler upon discharge, slept well last night, no other acute issues. Review of Systems General no headache, no dizziness, no fever chills. CVS chest pain with coughing, no palpitation. Respiratory dry cough, no respiratory distress. Gastrointestinal no nausea, no vomiting, no abdominal pain Review of Systems: Yes all other systems are reviewed and are negative Physical Exam Vital Signs: Vital Signs: Last Vital Signs Temp 97.7 F 10/10/21 11:12 Pulse 59 10/10/21 11:12 Resp 18 10/10/21 11:12 BP 105/66 10/10/21 11:12 Pulse Ox 96 10/10/21 11:12 Body Mass Index 26.4 General awake alert,no acute distress. Neck no JVD. CVS regular rate rhythm, Respiratory lungs clear to auscultation, no respiratory distress, no rales Gastrointestinal abdomen soft, nontender, bowel sounds audible, no guarding , no rigidity. Extremities no edema, rt bka ,left big toe ulcer with granulation tissue Neuro nonfocal Psych appropriate affect Objective Data Active Medications Acetaminophen (Acetaminophen 325 Mg Tablet) 650 mg PO Q6H PRN PRN Reason: pain/fever Last Admin: 10/09/21 00:38 Dose: 650 mg Documented by: BLANCA Albuterol Sulfate (Albuterol Sulfate (0.083%) 2.5 Mg/3 Ml Vial.Neb) 2.5 mg INHALE Q4H PRN PRN Reason: Shortness Of Breath Or Wheezin Albuterol Sulfate (Albuterol Sulfate 90 Mcg 8 Gm Inhaler) 2 puff INHALE Q4H PRN PRN Reason: Shortness Of Breath Albuterol/Ipratropium (Albuterol/Iprat 2.5/0.5mg 3 Ml Ampul.Neb) 3 ml INHALE RQ4H PRN PRN Reason: Shortness of Breath/Wheezing Aspirin (Aspirin Enteric Coated 81 Mg Tablet.) 81 mg PO DAILY [facility] Last Admin: 10/10/21 08:28 Dose: 81 mg Documented by: FAIZA Atorvastatin Calcium (Atorvastatin Calcium 20 Mg Tablet) 20 mg PO BEDTIME [facility] Last Admin: 10/09/21 20:39 Dose: 20 mg Documented by: SOM Carvedilol (Carvedilol 6.25 Mg Tablet) 6.25 mg PO BID [facility]; Protocol Last Admin: 10/10/21 08:29 Dose: 6.25 mg Documented by: FAIZA Clopidogrel Bisulfate (Clopidogrel Bisulfate 75 Mg Tablet) 75 mg PO DAILY [facility] Last Admin: 10/10/21 08:29 Dose: 75 mg Documented by: FAIZA Dextrose (Dextrose 50 % 25 Gm/50 Ml Vial) 25 gm IVPUSH Q15M PRN; Protocol PRN Reason: per Hypoglycemia Standing Ord. Enoxaparin Sodium (Enoxaparin Sodium 40 Mg/0.4 Ml Syringe) 40 mg SUBCUT Q24H [facility] Last Admin: 10/10/21 03:38 Dose: Not Given Documented by: ERIBERTO Non-Admin Reason: Patient Refused Fluticasone Propionate (Fluticasone Propionate Nasal 16 Gm [place]) 1 spray NOSTRIL-B DAILY [facility] Last Admin: 10/09/21 12:11 Dose: Not Given Documented by: FAIZA Non-Admin Reason: Patient Refused Furosemide (Furosemide 40 Mg Tablet) 40 mg PO DAILY [facility]; Protocol Last Admin: 10/10/21 08:28 Dose: 40 mg Documented by: FAIZA Gabapentin (Gabapentin 100 Mg Capsule) 200 mg PO TID [facility] Last Admin: 10/10/21 08:28 Dose: 200 mg Documented by: FAIZA Glucose (Glucose Gel 15 Gm Gel..Gram.) 15 gm PO Q15M PRN; Protocol PRN Reason: per Hypoglycemia Standing Ord. Cefepime HCl 1 gm/ Sodium (Chloride) 50 mls @ 100 mls/hr IV Q8H [facility] Last Infusion: 10/10/21 04:13 Dose: 0 mls/hr Documented by: ERIBERTO Doxycycline Hyclate 100 mg/ (Sodium Chloride) 250 mls @ 166.67 mls/hr IV Q12H [facility] Last Infusion: 10/10/21 05:45 Dose: 0 mls/hr Documented by: ERIBERTO Insulin Glargine (Insulin Glargine,Hum.Rec.Anlog 100 Unit/Ml 10 Ml Vial) 12 unit SUBCUT BEDTIME [facility] Last Admin: 10/09/21 20:39 Dose: 12 unit Documented by: SOM Insulin Human Lispro (Insulin Lispro 100 Unit/Ml 3 Ml Vial) 0 unit SUBCUT QIDACHS [facility]; Protocol Last Admin: 10/10/21 08:03 Dose: Not Given Documented by: FAIZA Non-Admin Reason: No Insulin Coverage Loratadine (Loratadine 10 Mg Tablet) 10 mg PO DAILY [facility] Last Admin: 10/10/21 08:29 Dose: 10 mg Documented by: FAIZA Melatonin (Melatonin 3 Mg Tablet) 6 mg PO BEDTIME PRN PRN Reason: Insomnia Last Admin: 10/09/21 23:00 Dose: 6 mg Documented by: SOM Methadone HCl (Methadone Hcl 20 Mg/2 Ml Oral.Conc) 50 mg PO DAILY [facility] Last Admin: 10/10/21 08:27 Dose: 50 mg Documented by: FAIZA Montelukast Sodium (Montelukast Sodium 10 Mg Tablet) 10 mg PO BEDTIME [facility] Last Admin: 10/09/21 20:39 Dose: 10 mg Documented by: SOM Pharmacy Consult (Consult Rx Perform Med Rec) 1 each MISCELLANE ONCE PRN PRN Reason: Consult order Senna (Sennosides 8.6 Mg Tablet) 17.2 mg PO BEDTIME PRN PRN Reason: Constipation Sodium Chloride (0.9 % Sodium Chloride Flush 3 Ml Syringe) [facility] Last Admin: 10/10/21 08:27 Dose: 3 ml Documented by: FAIZA Spironolactone (Spironolactone 25 Mg Tablet) 12.5 mg PO DAILY [facility]; Protocol Last Admin: 10/10/21 08:27 Dose: 12.5 mg Documented by: FAIZA Tamsulosin HCl (Tamsulosin Hcl 0.4 Mg Capsule) 0.4 mg PO DAILY [facility] Last Admin: 10/10/21 08:29 Dose: 0.4 mg Documented by: FAIZA Valsartan (Valsartan 40 Mg Tablet) 40 mg PO BID [facility]; Protocol Last Admin: 10/10/21 08:30 Dose: 40 mg Documented by: FAIZA Labs CBC & Chem 7: 10/10/21 05:44 10/10/21 05:44 Labs: Laboratory Results - last 24 hr 11/27/21 11/27/21 11/27/21 11:43 16:25 20:15 MCV MCH MCHC RDW Plt Count MPV Absolute Nucleated RBC Nucleated RBC % (auto) Anion Gap Estim Creat Clear Calc Estimated GFR POC Glucose 156 H 121 H 138 H Random Glucose Calcium B-Natriuretic Peptide 10/10/21 10/10/21 10/10/21 05:44 05:44 05:44 MCV 82.7 MCH 26.5 L MCHC 32.1 RDW 14.1 Plt Count 269 MPV 10.2 Absolute Nucleated RBC 0.000 Nucleated RBC % (auto) 0.0 Anion Gap 15 Estim Creat Clear Calc 57.5 Estimated GFR 56 POC Glucose Random Glucose 96 Calcium 9.2 D B-Natriuretic Peptide 581 H 10/10/21 10/10/21 07:28 11:17 MCV MCH MCHC RDW Plt Count MPV Absolute Nucleated RBC Nucleated RBC % (auto) Anion Gap Estim Creat Clear Calc Estimated GFR POC Glucose 117 H 143 H Random Glucose Calcium B-Natriuretic Peptide Assessment and Plan (1) Ischemic cardiomyopathy: Status: Acute (2) Diabetes mellitus: Status: Acute (3) HFrEF (heart failure with reduced ejection fraction): Status: Acute Assessment and Plan: 51-year-old male with past medical history of hypertension, hyperlipidemia, diabetes, systolic CHF with EF of 15-20%, chronic anemia, bipolar disorder, BPH, peripheral vascular disease, history of substance abuse, opiate dependence, benign compression wedge fracture, COPD, GERD presented to the hospital today with a chief complaint of shortness of breath.? Noted to be in CHF exacerba tion.? Admitted for further management.? Acute exacerbation of heart failure with reduced EF COLT EF 15-20% with rwma No shortness of breath this morning,-1.3 L, BNP improved to 581 Will DC IV Lasix and transitioned to Lasix 40 mg by mouth daily, started on Diovan 40 mg b.i.d. as per cardio recommendation Will monitor 24 hours and current medication and discharged home tomorrow Recommend compliance with home medications and low-sodium diet. Right great toe wound Noted to have healing granulation tissue/eschar, acute vs chronic osteo noted on CT will keep the patient on cefepime and doxycycline through the weekend then switch to po doxy and Keflex for one week as per ID Continue daily dressing Diabetes bs 143 ,Insulin sliding scale ADA diet COPD. No exacerbation Shin p.r.nBerto will give script for Advair upon discharge Add cough medication Hypertension/hyperlipidemia Continue home medications Opiate dependence continue methadone DVT prophylaxis:? Lovenox Code status: Full code Quality Stroke Does the patient have a stroke diagnosis?: No VTE Prior VTE?: No VTE Risk Level:: Medical - moderate - high VTE Device Contraindication: Treatment Not Indicated VTE Drug Contraindication: N/A - Med Ordered
[2021-10-10] MEDS: Ibuprofen 400 MG TABLET PO (13:29)
[2021-10-10] MEDS: guaiFENesin DM 100/10/5 ML 5 ML SYRUP 10 ML PO ×2 (13:29→17:50)
[2021-10-10 16:18] LABS: Glucose, Whole Blood 137 mg/dL (60-115)
[2021-10-10 18:06] LABS: Anti Nuclear Antibody Screen NEGATIVE (NEGATIVE)
[2021-10-10 19:52] LABS: Glucose, Whole Blood 149 mg/dL (60-115)
[2021-10-10] MEDS: Montelukast Sodium 10 MG TABLET PO (20:01)
[2021-10-10] MEDS: Atorvastatin Calcium 20 MG TABLET PO (20:01)
[2021-10-10] MEDS: Insulin Glargine,Hum.rec.anlog 100 UNIT/ML 10 ML VIAL 12 UNIT SUBCUT (20:01)
[2021-10-10] MEDS: Melatonin 3 MG TABLET 6 MG PO (21:39)
[2021-10-11] MEDS: cefEPime HCl 1 GM in 0.9 % Sodium Chloride 50 ML IV (03:32)
[2021-10-11] MEDS: Acetaminophen 325 MG TABLET 650 MG PO (03:32)
[2021-10-11 04:00] VITALS: BP 116/58; PULSE 65; RESP 20; TEMP 36.6; O2SAT 95
[2021-10-11 07:05] VITALS: PULSE 60; RESP 18; TEMP 36.1; O2SAT 96
[2021-10-11 07:42] LABS: Glucose, Whole Blood 101 mg/dL (60-115)
[2021-10-11 08:08] VITALS: BP 98/54
[2021-10-11 09:02] LABS: HIV AB/AG Nonreactive (Nonreactive)
[2021-10-11 10:31] LABS: Anion Gap 10 (12-20); Blood Urea Nitrogen 43 mg/dL (9-16); Calcium 9.6 mg/dL (8.4-10.2); Carbon Dioxide 28 mmol/L (22-29); Chloride 99 mmol/L (96-108); Estimated Glomerular Filt Rate > 60; Glucose Random 138 mg/dL (60-115); Potassium 4.2 mmol/L (3.3-5.1); Sodium 133 mmol/L (135-145)
[2021-10-11 11:01] VITALS: BP 98/54; PULSE 58
[2021-10-11 11:02] VITALS: BP 98/54; PULSE 60
[2021-10-11] MEDS: Clopidogrel Bisulfate 75 MG TABLET PO (11:02)
[2021-10-11] MEDS: Gabapentin 100 MG CAPSULE 200 MG PO (11:02)
[2021-10-11] MEDS: Valsartan 40 MG TABLET PO (11:02)
[2021-10-11] MEDS: Aspirin Enteric Coated 81 MG TABLET.DR PO (11:02)
[2021-10-11] MEDS: Furosemide 40 MG TABLET PO (11:03)
[2021-10-11] MEDS: Loratadine 10 MG TABLET PO (11:03)
[2021-10-11 11:15] VITALS: BP 130/80; PULSE 63; RESP 18; TEMP 35.5; O2SAT 97
[2021-10-11] MEDS: Spironolactone 25 MG TABLET 12.5 MG PO (11:15)
[2021-10-11] MEDS: Tamsulosin HCL 0.4 MG CAPSULE PO (11:16)
[2021-10-11] MEDS: guaiFENesin DM 100/10/5 ML 5 ML SYRUP 10 ML PO (11:18)
[2021-10-11] MEDS: methADONE HCl 20 MG/2 ML ORAL.CONC 50 MG PO (11:18)
[2021-10-11 11:19] LABS: Glucose, Whole Blood 119 mg/dL (60-115)
--- NOTE | 2021-10-11 11:21 | MHC.CM.PN ---
Patient has been medically cleared for dc to home today, with services.Patient is active with [facility], who has been notified of today's dc.[employer] services should resume, as before.
--- NOTE | 2021-10-11 12:43 | PM.DS ---
DS: Providers Provider Date of Service: 10/11/21 Date of admission: 10/08/21 03:40 Primary care physician: [facility] Consults: 10/08/21 03:40 Consult to Cardiology Routine Consulting Provider: Bishop Francisco Reason for consultation: CHF 10/08/21 03:44 Consult to Infectious Diseases Routine Consulting Provider: Zully Roblero Reason for consultation: Dm foot infection 10/08/21 06:41 Addiction Medicine Routine Consulting Provider: Yin Pacheco Reason for consultation: Patient on methadone 10/09/21 14:11 Consult to General Surgery Routine Consulting Provider: Nadia Hurt Reason for consultation: legft great toe wound Has provider been notified: No DS: Diagnosis Discharge Diagnosis (1) Ischemic cardiomyopathy: Status: Acute (2) Diabetes mellitus: Status: Acute (3) HFrEF (heart failure with reduced ejection fraction): Status: Acute DS: Summary Hospital Course Hospital Course: History of presenting illness Date of Service: 10/08/21 Chief Complaint: Shortness of breath 51-year-old male with past medical history of hypertension, hyperlipidemia, diabetes, systolic CHF with EF of 15-20%, chronic anemia, bipolar disorder, BPH, peripheral vascular disease, history of substance abuse, opiate dependence, benign compression wedge fracture, COPD, GERD presented to the hospital today with a chief complaint of shortness of breath.? Patient reported that over the past 4 days he has been having shortness of breath and dyspnea on exertion; also complains of orthopnea and unable to lie down flat.? The symptoms were not improving decided to come to the ER for further evaluation.? Denies any chest pain palpitations lightheadedness or dizziness.? Patient also complains of left great toe pain, redness.? Mentioned that he was here in the hospital few days ago and was given oral antibiotics which she finished but he continued to have the pain and redness.? Denies any urinary symptoms.? Denies any cough or sputum production.? Patient also complains of mild intermittent abdominal discomfort. Review of all other systems is negative except mentioned above ER course:? Patient noted to be mildly hypoxic at 87%, not in respiratory distress, placed on supplemental oxygen, noted to have rales and crackles; on labs noted to have elevated proBNP; given Lasix; chest x-ray was abnormal-CT chest was done which showed mediastinal lymphadenopathy concern for malignancy, cardiomegaly, pulmonary edema, atelectasis; CT abdomen showed no acute process; admitted to the hospital for further management. 51-year-old male with past medical history of hypertension, hyperlipidemia, diabetes, systolic CHF with EF of 15-20%, chronic anemia, bipolar disorder, BPH, peripheral vascular disease, history of substance abuse, opiate dependence, benign compression wedge fracture, COPD, GERD presented to the hospital today with a chief complaint of shortness of breath.? Noted to be in CHF exacerbation, and admitted with a diagnosis of? Acute exacerbation of heart failure with reduced EF, 15-20% with right wall motion abnormality patient treated with intravenous Lasix with good response BNP improved to 581 patient seen by Cardiology and has been started on Diovan 40 mg b.i.d. and continue on home dose of Lasix 40 he has been strongly advised to have close outpatient follow-up with Cardiology and to continue low-sodium diet, patient has daily VNA Right great toe wound,Noted to have healing granulation tissue/eschar, acute vs chronic osteo noted on CT, with mild surrounding cellulitis patient treated with IV cefepime and IV doxycycline and subsequently switched to by mouth doxycycline and Keflex for 1 more week as per ID recommendation he is being discharged home with dressing change every other day by [facility]NA In regard to Diabetes patient has been continued on diabetic diet and home medication In regard to all other chronic medical issues including COPD, hypertension and hyperlipidemia he has been continued on all home medication Opiate dependence continue methadone Time Spent with Patient Time attestation: Total time spent providing and/or coordinating discharge services: Discharge coordination time: Greater than 30 minutes Quality: Stroke Does the patient have a stroke diagnosis?: No Physical Exam Vital Signs: Vital Signs: Last Vital Signs Temp 96 F L 10/11/21 11:15 Pulse 63 10/11/21 11:15 Resp 18 10/11/21 11:15 BP 130/80 10/11/21 11:15 Pulse Ox 97 10/11/21 11:15 Body Mass Index 26.4 General awake alert,no acute distress.? Neck no JVD. CVS? regular rate rhythm, Respiratory lungs clear to auscultation, no respiratory distress, no rales Gastrointestinal abdomen soft, nontender, bowel sounds audible, no guarding , no rigidity. Extremities no edema, rt bka ,left big toe ulcer with granulation tissue Neuro nonfocal Psych appropriate affect DS: Data Data Completed and Pending Completed studies during hospitalization [Text1]: Procedures Dilation of Left Anterior Tibial Artery using Drug-Coated Balloon, Percutaneous Approach (11/24/20) Dilation of Left Peroneal Artery using Drug-Coated Balloon, Percutaneous Approach (11/24/20) Dilation of Left Popliteal Artery using Drug-Coated Balloon, Percutaneous Approach (11/24/20) Drainage of Chest Wall, Percutaneous Approach, Diagnostic (11/24/20) Drainage of Right Pleural Cavity, Percutaneous Approach (08/31/20) Excision of Left Foot Subcutaneous Tissue and Fascia, Open Approach (02/12/21) Insertion of Infusion Device into Superior Vena Cava, Percutaneous Approach (02/12/21) Transfusion of Nonautologous Red Blood Cells into Peripheral Vein, Percutaneous Approach (01/02/21) Ultrasonography of Superior Vena Cava, Guidance (02/12/21) Labs on day of discharge: Laboratory Results - last 24 hr 10/08/21 10/08/21 10/10/21 12:27 12:27 16:07 Sodium Potassium Chloride Carbon Dioxide Anion Gap BUN Creatinine Estim Creat Clear Calc Estimated GFR POC Glucose 137 H Random Glucose Calcium DIANE Screen NEGATIVE DIANE Titer TNP DIANE Titer 2 TNP DIANE Titer 3 TNP DIANE Pattern TNP DIANE Pattern 2 TNP DIANE Pattern 3 TNP HIV 1&2 Ab/P24 Ag 4thGn Nonreactive 10/10/21 10/11/21 10/11/21 19:46 07:04 09:37 Sodium 133 L Potassium 4.2 Chloride 99 Carbon Dioxide 28 Anion Gap 10 L BUN 43 H Creatinine 1.10 Estim Creat Clear Calc 70.0 Estimated GFR > 60 POC Glucose 149 H 101 Random Glucose 138 H D Calcium 9.6 DIANE Screen DIANE Titer DIANE Titer 2 DIANE Titer 3 DIANE Pattern DIANE Pattern 2 DIANE Pattern 3 HIV 1&2 Ab/P24 Ag 4thGn 10/11/21 11:16 Sodium Potassium Chloride Carbon Dioxide Anion Gap BUN Creatinine Estim Creat Clear Calc Estimated GFR POC Glucose 119 H Random Glucose Calcium DIANE Screen DIANE Titer DIANE Titer 2 DIANE Titer 3 DIANE Pattern DIANE Pattern 2 DIANE Pattern 3 HIV 1&2 Ab/P24 Ag 4thGn Discharge Plan Discharge Patient Disposition: Home Health Service Discharge Diagnosis: Exacerbation of heart failure with reduced EF Acute versus chronic osteomyelitis/cellulitis Referrals: [facility] [Outside] - 1 Week [place],[facility] [Primary Care Provider] - 1 Week Discharge Medications: New doxycycline hyclate 100 mg capsule 100 mg PO BID Qty: 14 RF: 0 cephalexin 500 mg capsule 500 mg PO Q8H 7 Days Qty: 21 RF: 0 fluticasone propion-salmeterol [Advair Diskus] 250-50 mcg/dose blister with device 1 inh inhalation BID Qty: 60 RF: 0 valsartan [Diovan] 40 mg tablet 40 mg PO BID Qty: 60 RF: 0 Continued albuterol sulfate 2.5 mg /3 mL (0.083 %) Solution For Nebulization 2.5 mg inhalation Q4H PRN (Reason: Shortness Of Breath Or Wheezing) RF: 0 methadone 10 mg/mL Concentrate 50 mg PO QAM RF: 0 albuterol sulfate 90 mcg/actuation Hfa Aerosol Inhaler 2 puff INHALATION Q4H PRN (Reason: Shortness Of Breath) RF: 0 spironolactone 25 mg Tablet 12.5 mg PO DAILY RF: 0 Lantus U-100 Insulin 100 unit/mL Solution 12 unit SUBCUT QPM RF: 0 cetirizine 10 mg Tablet 10 mg PO DAILY RF: 0 aspirin 81 mg Tablet,Delayed Release (Dr/Ec) 81 mg PO DAILY RF: 0 carvedilol 6.25 mg Tablet 6.25 mg PO BID RF: 0 atorvastatin 20 mg Tablet 20 mg PO BEDTIME RF: 0 tamsulosin 0.4 mg Capsule 0.4 mg PO DAILY RF: 0 montelukast 10 mg Tablet 10 mg PO BEDTIME RF: 0 gabapentin 100 mg Capsule 200 mg PO TID RF: 0 fluticasone propionate [Flonase Allergy Relief] 50 mcg/actuation [place],Suspension 1 spray INTRANASAL DAILY RF: 0 furosemide 40 mg Tablet 40 mg PO DAILY Qty: 30 RF: 0 clopidogrel 75 mg tablet 1 tab PO QAM RF: 0 Discontinued fluticasone propion-salmeterol [Advair Diskus] 250-50 mcg/dose blister with device 1 inh inhalation BID Qty: 60 RF: 0 No Action (DME) lancets Misc MISCELLANEOUS RF: 0 (DME) blood-glucose meter [FreeStyle [place] Lite] Kit MISCELLANEOUS RF: 0 (DME) cane Device MISCELLANEOUS RF: 0 (DME) FreeStyle Lite Strips RF: 0 (DME) pen needle, diabetic Needle MISCELLANEOUS RF: 0 Discharge Orders: Discharge Order (Routine); Ordered 10/11/21 Ordered By: Dinh Mccain Diet: diabetic diet and low salt diet Activity on Discharge: As tolerated Stand Alone Forms: Patient Portal Discharge page Other Ambulatory Orders: Basic Metabolic Panel (Routine) Timeframe: [id number] Facility: [facility] - Location: Laboratory Ordered By: Dinh Mccain Activity Restrictions/Additional Instructions: Wound care Instructions: Wash Left great toe with wound cleanser, then apply EPC cream around edges of wound then cut a small piece of silver alginate and apply to wound bed, cover with non woven gauze and roll gauze. This is belgica be done every other day unless bandage is soiled or falling off. Patient may take a shower as long as water does not fill tub-proper drainage is necessary- no soaking of toe. Care Plan Goals: Take all above medications as prescribed and have close outpatient follow-up with providers Health Concerns: Diabetes mellitus, heart failure, left toe wound, continue with VNA services left toe dressing change daily follow strict low-calorie and low-salt diet take all medications as prescribed Plan of Treatment: Need close outpatient follow-up with primary care physician in [address] Bishop Scanlon from [facility] quality assurance intern Assessment: As above
--- NOTE | 2021-10-11 12:43 | PC.NURSE ---
Skin/wound assessment completed. Patient has a Grade 1 diabetic ulcer to dorsal left great toe. Cleansed with normal saline, epc cream applied around edges and silver alginate applied to wound bed then covered with non woven gauze and roll gauze. No other skin issues or open areas noted at this time.
[2021-10-11 13:26] LABS: Myeloperoxidase Antibody <1.0 AI; Proteinase 3 PR3 Antibodies <1.0 AI
[2021-10-11 15:31] LABS: Cyclic Citrullinated Peptide <16 UNITS
[2021-10-12 06:02] LABS: Angiotensin Converting Enzyme 100 U/L (9-67)
== END 2021-10-11 14:14 | disposition home health service (06) | DRG 194 ==
LOC: HO.ED 10-08 01:30 → HO.EDOVER 10-08 04:27 → HO.IMC 10-08 18:53
PROVIDERS: Hospitalist; Nurse Practitioner Acute Care; Physician Assistant; Student in an Organized Health Care Education/Training Program; Admitting Provider Hospitalist; Emergency Provider Student in an Organized Health Care Education/Training Program; PCP Family Medicine; Visit Provider Hospitalist
DX: I50.43 Acute on chronic combined systolic (congestive) and diastolic (congestive) heart failure (principal); J96.01 Acute respiratory failure with hypoxia; F11.20 Opioid dependence, uncomplicated; J39.8 Other specified diseases of upper respiratory tract; L03.116 Cellulitis of left lower limb; J44.9 Chronic obstructive pulmonary disease, unspecified; E11.621 Type 2 diabetes mellitus with foot ulcer; L97.529 Non-pressure chronic ulcer of other part of left foot with unspecified severity; I25.5 Ischemic cardiomyopathy; Z89.511 Acquired absence of right leg below knee; E11.51 Type 2 diabetes mellitus with diabetic peripheral angiopathy without gangrene; E11.69 Type 2 diabetes mellitus with other specified complication; E11.42 Type 2 diabetes mellitus with diabetic polyneuropathy; M86.9 Osteomyelitis, unspecified; E78.5 Hyperlipidemia, unspecified; Z20.822 Contact with and (suspected) exposure to COVID-19; Z79.4 Long term (current) use of insulin; Z88.2 Allergy status to sulfonamides; Z79.82 Long term (current) use of aspirin; Z79.899 Other long term (current) drug therapy
CPT/HCPCS: 36415; 71045; 71250; 73700; 74176; 80048; 80076; 81001; 82164; 82947; 83735; 83880; 84484; 85025; 85027; 86021; 86038; 86039; 86200; 87389; 87635; 93005; 93306; 94640; 99285; J0692; J1170; J1650; J1940; J3475

== ENCOUNTER 2021-10-17 04:19 | Emergency (ER) | payer MEDICAID, SELFPAY ==
--- NOTE | ~2021-10-17 | XR_ITS ---
EXAMINATION: XR CHEST CLINICAL INFORMATION: Shortness of breath COMPARISON: 10/08/2021 TECHNIQUE: Frontal view of the chest was obtained. FINDINGS: Cardiomegaly, pulmonary venous congestion and mild interstitial edema appears similar to the prior exam. No pleural effusion. No pneumothorax. No acute or suspicious osseous abnormalities. XR/XR chest 1V IMPRESSION: Similar portable radiographic appearance as 2 10/08/2021 demonstrating a likely represents cardiogenic interstitial pulmonary edema
--- NOTE | 2021-10-17 04:22 | ECG_ITS ---
Test Reason : SOB Blood Pressure : / mmHG Vent. Rate : 079 BPM Atrial Rate : 079 BPM P-R Int : 184 ms QRS Dur : 112 ms QT Int : 414 ms P-R-T Axes : 039 -32 110 degrees QTc Int : 474 ms Normal sinus rhythm Left axis deviation Left ventricular hypertrophy with repolarization abnormality ( R in aVL , [facility] product ) Abnormal ECG When compared with ECG of 08-OCT-2021 00:00, No significant change was found Referred By: Nikkie Mcmahan Electronically Signed By:LACEY HALEY
--- NOTE | 2021-10-17 04:23 | ED_ITS ---
HPI - SOB/Dyspnea General Chief Complaint: Dyspnea Stated Complaint: asthma exacerbation Time Seen by Provider: 10/17/21 05:52 Source: patient and EMS Mode of arrival: EMS Limitations: no limitations History of Present Illness HPI Narrative: Patient comes to emergency room complaining of shortness of breath when lying flat. Patient called EMS. Patient states he has a chronic chest pain he usually has, patient states the shortness of breath resolves when he sits up. Patient denies any recent history of coughing, fever or chills MD elicited complaint: shortness of breath Related Data Home Medications Medication Instructions Recorded Confirmed FreeStyle Lite Strips 08/12/20 02/13/21 albuterol sulfate 2.5 mg INHALATION Q4H PRN 08/12/20 10/08/21 albuterol sulfate 90 mcg/actuation 2 puff INHALATION Q4H PRN 08/12/20 10/08/21 aerosol inhaler blood-glucose meter (FreeStyle 08/12/20 02/13/21 [place] Lite) cane 08/12/20 02/13/21 lancets 08/12/20 02/13/21 methadone 10 mg/mL oral concentrate 50 mg PO QAM 08/12/20 10/08/21 pen needle, diabetic 08/12/20 02/13/21 aspirin 81 mg tablet,delayed 81 mg PO DAILY 08/14/20 10/08/21 release atorvastatin 20 mg tablet 20 mg PO BEDTIME 08/14/20 10/08/21 carvedilol 6.25 mg tablet 6.25 mg PO BID 08/14/20 10/08/21 cetirizine 10 mg tablet 10 mg PO DAILY 08/14/20 10/08/21 fluticasone propionate 50 1 spray INTRANASAL DAILY 08/14/20 10/08/21 mcg/actuation nasal spray,suspension (Flonase Allergy Relief) gabapentin 100 mg capsule 200 mg PO TID 08/14/20 10/08/21 insulin glargine 100 unit/mL 12 unit SUBCUT QPM 08/14/20 10/08/21 subcutaneous solution (Lantus U-100 Insulin) montelukast 10 mg tablet 10 mg PO BEDTIME 08/14/20 10/08/21 spironolactone 25 mg tablet 12.5 mg PO DAILY 08/14/20 10/08/21 tamsulosin 0.4 mg capsule 0.4 mg PO DAILY 08/14/20 10/08/21 clopidogrel 75 mg tablet 1 tab PO QAM 10/08/21 10/08/21 Previous Rx's Medication Instructions Recorded furosemide 40 mg tablet 40 mg PO DAILY #30 tab 12/02/20 cephalexin 500 mg capsule 500 mg PO Q8H 7 Days #21 cap 10/11/21 doxycycline hyclate 100 mg capsule 100 mg PO BID #14 cap 10/11/21 fluticasone 250 mcg-salmeterol 50 1 inh INHALATION BID #60 ea 10/11/21 mcg/dose blistr powdr for inhalation (Advair Diskus) valsartan 40 mg tablet (Diovan) 40 mg PO BID #60 tab 10/11/21 Allergies Allergy/AdvReac Type Severity Reaction Status Date / Time ertapenem Allergy Intermediate Hives Verified 07/20/21 01:06 vancomycin [VANCOMYCIN] Allergy Intermediate HIVES Verified 07/20/21 01:06 Chocolate Allergy Unknown Rash Verified 07/20/21 01:06 ciprofloxacin [From CIPRO] Allergy Unknown SWELLING Verified 07/20/21 01:06 hydrocortisone [Cipro HC] Allergy Unknown Unknown Verified 07/20/21 01:06 sulfamethoxazole Allergy Unknown rash Verified 07/20/21 01:06 [From BACTRIM] trimethoprim [From BACTRIM] Allergy Unknown rash Verified 07/20/21 01:06 turkey [TURKEY] Allergy Unknown RASH Verified 07/20/21 01:06 Review of Systems Review of Systems: Constitutional : No Weight loss, No Fever, No Chills, No Night Sweats, No Fatigue, No Malaise ENT/Mouth : No Hearing loss, No Ear Pain, No Nasal Congestion, No Sinus Pain, No Hoarseness, No sore throat, No Rhinorrhea, No Swallowing Difficulty Eyes: No Eye Pain, No Swelling, No Redness, No Foreign Body, No Discharge, No Vision Changes Cardiovascular : Bilateral chronic Chest Pain, No SOB, No Dyspnea on Exertion, complaining of Orthopnea, No Edema and left leg No Palpitations Respiratory : No Cough, No Sputum, No Wheezing, No Smoke Exposure, No Dyspnea Gastrointestinal : No Nausea, No Vomiting, No Diarrhea, No Constipation, No abdominal Pain, No Hematochezia, No Melena Genitourinary : no irregular bleeding, No Dysuria, No Urinary Frequency, No Hematuria, No Urinary Incontinence, No Urgency, No Flank Pain, No Urinary Flow Changes, No Hesitancy Musculoskeletal : No joint pain, No Myalgias, No Joint Swelling Skin : No Skin Lesions, No rash Neuro : No Weakness, No Numbness, No Paresthesias, No Loss of Consciousness, No Dizziness, No Headache Psych : No Anxiety/Panic, No Depression, No SI/HI/AH/VH, No Social Issues, Heme/Lymph: No Bruising, No Bleeding,No Lymphadenopathy Endocrine : No Polyuria, No Polydipsia, No Temperature Intolerance [facility] Past Medical History Medical History Abscess or cellulitis of foot Acute on chronic anemia Acute on chronic combined systolic and diastolic congestive heart failure Asthma Bipolar 1 disorder BPH (benign prostatic hyperplasia) Cholelithiasis Closed wedge compression fracture of T9 vertebra COPD (chronic obstructive pulmonary disease) Diabetes mellitus, type 2 GERD (gastroesophageal reflux disease) Hyperlipidemia Lymphadenopathy Peripheral arterial disease Peripheral neuropathy Substance abuse Surgical History History of amputation History of laminectomy History of transurethral resection of prostate Hx of BKA Family History Family History Father Chronic mental illness Hypertension Asthma Stroke Mother Asthma Diabetes Coronary artery disease Social History Social History Household Members: None Housing: Apartment Housing Other:: IN A LITTLE ROOM Do you presently have visiting nurse or other home services: Yes Alcohol intake: never Patient Tobacco Use Status: Never used Tobacco Second Hand Smoke Exposure: No Use of substances other than those prescribed or required for medical reasons: No Substance Use Type: Marijuana Advance Directives: Yes Advance Directives on File: Yes Advance Directives Date on File: 11/24/20 service: No Current occupational status: disabled Physical Exam Vital Signs: Vital Signs: Last Vital Signs Temp 98.2 F 10/17/21 04:33 Pulse 80 10/17/21 04:33 Resp 16 10/17/21 06:14 BP 147/84 H 10/17/21 04:33 Pulse Ox 98 10/17/21 04:33 BMI result Body Mass Index 28.8 Const: Other: Appearance: Alert. Oriented X3. No acute distress. Eyes: Pupils equal, round and reactive to light. ENT: Pharynx normal. Neck: Normal inspection. Neck supple. No lymph nodes noted. No crepitus CVS: Normal heart rate and rhythm. Pulses normal. Normal S1 and S2 Respiratory: No respiratory distress. Breath sounds normal. No Wheezing. No rales Abdomen: Soft and nontender. No rigidity. No distention. Skin: Skin warm and dry. Normal skin color. Normal skin turgor. Extremities: No lower extremity edema in left leg, patient has right BKA Neuro: Oriented X 3. No motor deficit. No sensory deficit. Moving all extermities. No slurred speech. Course Course Course Narrative: Patient's labs are at baseline. Patient's oxygen saturation has been 98% on room air. At this time, patient does not have a CHF exacerbation or asthma exacerbation. Patient remains on room air MDM - SOB/Dyspnea Lab Data Result diagrams: 10/17/21 04:39 10/17/21 04:39 Labs: Lab Results 10/17/21 10/17/21 10/17/21 Range/Units 04:39 04:39 04:39 WBC 7.1 (4.8-10.8) X10*3/uL RBC 4.29 L (4.60-5.80) X10*6/uL Hgb 11.2 L (14.0-18.0) g/dl Hct 35.8 L (42.0-52.0) % MCV 83.4 (80.0-98.0) fL MCH 26.1 L (27.0-33.0) pg MCHC 31.3 (31.0-36.0) g/dl RDW 14.4 (11.0-16.0) % Plt Count 261 (160-400) X10*3/uL MPV 9.7 (9.4-12.4) fL Immature Gran % (Auto) 0.4 (0.0-0.4) % Neut % (Auto) 60.7 (45-73) % Lymph % (Auto) 18.8 L (20-40) % [place] % (Auto) 13.9 H (2-11) % Eos % (Auto) 5.6 H (0-4) % Baso % (Auto) 0.6 (0-2) % Lymph # (Auto) 1.3 (1.2-4.9) X10*3/uL [place] # (Auto) 1.0 (0.1-1.2) X10*3/uL Eos # (Auto) 0.4 (0.0-0.4) X10*3/uL Baso # (Auto) 0.0 (0.0-0.2) X10*3/uL Abs Immat Gran (auto) 0.03 (0.00-0.03) X10*3/uL Absolute Neuts (auto) 4.3 (2.0-8.3) x10*3/uL Absolute Nucleated RBC 0.000 (0.0-0.012) X10*3/uL Nucleated RBC % (auto) 0.0 (0.0-0.2) /100WBC PT 12.3 (9.9-13.0) SEC INR 1.1 (0.9-1.1) Sodium 135 (135-145) mmol/L Potassium 4.5 (3.3-5.1) mmol/L Chloride 101 (96-108) mmol/L Carbon Dioxide 24 (22-29) mmol/L Anion Gap 15 (12-20) BUN 25 H (9-16) mg/dL Creatinine 0.93 (0.5-1.4) mg/dL Estim Creat Clear Calc 88.6 Estimated GFR > 60 Random Glucose 144 H (60-115) mg/dL Calcium 9.9 (8.4-10.2) mg/dL Total Bilirubin 0.4 (0.0-1.0) mg/dL Direct Bilirubin 0.2 (0.0-0.5) mg/dL AST 22 (5-37) U/L ALT 12 (0-40) U/L Alkaline Phosphatase 108 (39-117) U/L Troponin I High Sens (<3.5-35.0) ng/L B-Natriuretic Peptide (<100) pg/mL Total Protein 7.6 (6.5-8.0) g/dL Albumin 3.7 (3.5-5.0) g/dL COVID-19 (JAMILA) (Negative) COVID-19 Clin Com 10/17/21 10/17/21 Range/Units 04:39 04:39 WBC (4.8-10.8) X10*3/uL RBC (4.60-5.80) X10*6/uL Hgb (14.0-18.0) g/dl Hct (42.0-52.0) % MCV (80.0-98.0) fL MCH (27.0-33.0) pg MCHC (31.0-36.0) g/dl RDW (11.0-16.0) % Plt Count (160-400) X10*3/uL MPV (9.4-12.4) fL Immature Gran % (Auto) (0.0-0.4) % Neut % (Auto) (45-73) % Lymph % (Auto) (20-40) % [place] % (Auto) (2-11) % Eos % (Auto) (0-4) % Baso % (Auto) (0-2) % Lymph # (Auto) (1.2-4.9) X10*3/uL [place] # (Auto) (0.1-1.2) X10*3/uL Eos # (Auto) (0.0-0.4) X10*3/uL Baso # (Auto) (0.0-0.2) X10*3/uL Abs Immat Gran (auto) (0.00-0.03) X10*3/uL Absolute Neuts (auto) (2.0-8.3) x10*3/uL Absolute Nucleated RBC (0.0-0.012) X10*3/uL Nucleated RBC % (auto) (0.0-0.2) /100WBC PT (9.9-13.0) SEC INR (0.9-1.1) Sodium (135-145) mmol/L Potassium (3.3-5.1) mmol/L Chloride (96-108) mmol/L Carbon Dioxide (22-29) mmol/L Anion Gap (12-20) BUN (9-16) mg/dL Creatinine (0.5-1.4) mg/dL Estim Creat Clear Calc Estimated GFR Random Glucose (60-115) mg/dL Calcium (8.4-10.2) mg/dL Total Bilirubin (0.0-1.0) mg/dL Direct Bilirubin (0.0-0.5) mg/dL AST (5-37) U/L ALT (0-40) U/L Alkaline Phosphatase (39-117) U/L Troponin I High Sens 13.3 (<3.5-35.0) ng/L B-Natriuretic Peptide 664 H (<100) pg/mL Total Protein (6.5-8.0) g/dL Albumin (3.5-5.0) g/dL COVID-19 (JAMILA) Negative (Negative) COVID-19 Clin Com See Note Imaging Data Chest x-ray: Radiologist's impression: FINDINGS: Cardiomegaly, pulmonary venous congestion and mild interstitial edema appears similar to the prior exam. No pleural effusion. No pneumothorax. No acute or suspicious osseous abnormalities. XR/XR chest 1V IMPRESSION: Similar portable radiographic appearance as 2 10/08/2021 demonstrating a likely represents cardiogenic interstitial pulmonary edema Discharge Plan Discharge Clinical Impression: Chronic dyspnea Patient Disposition: Home, Self-Care Instructions: Shortness of Breath (ED) Additional Instructions: Please follow-up with your primary care physician tomorrow. If you have any worsening or new symptoms, please return to the emergency room or call 911 Prescriptions: No Action albuterol sulfate 2.5 mg /3 mL (0.083 %) Solution For Nebulization 2.5 mg inhalation Q4H PRN (Reason: Shortness Of Breath Or Wheezing) RF: 0 (DME) lancets Misc MISCELLANEOUS RF: 0 (DME) blood-glucose meter [FreeStyle [place] Lite] Kit MISCELLANEOUS RF: 0 (DME) cane Device MISCELLANEOUS RF: 0 (DME) FreeStyle Lite Strips RF: 0 (DME) pen needle, diabetic Needle MISCELLANEOUS RF: 0 methadone 10 mg/mL Concentrate 50 mg PO QAM RF: 0 albuterol sulfate 90 mcg/actuation Hfa Aerosol Inhaler 2 puff INHALATION Q4H PRN (Reason: Shortness Of Breath) RF: 0 spironolactone 25 mg Tablet 12.5 mg PO DAILY RF: 0 Lantus U-100 Insulin 100 unit/mL Solution 12 unit SUBCUT QPM RF: 0 cetirizine 10 mg Tablet 10 mg PO DAILY RF: 0 aspirin 81 mg Tablet,Delayed Release (Dr/Ec) 81 mg PO DAILY RF: 0 carvedilol 6.25 mg Tablet 6.25 mg PO BID RF: 0 atorvastatin 20 mg Tablet 20 mg PO BEDTIME RF: 0 tamsulosin 0.4 mg Capsule 0.4 mg PO DAILY RF: 0 montelukast 10 mg Tablet 10 mg PO BEDTIME RF: 0 gabapentin 100 mg Capsule 200 mg PO TID RF: 0 fluticasone propionate [Flonase Allergy Relief] 50 mcg/actuation [place],Suspension 1 spray INTRANASAL DAILY RF: 0 furosemide 40 mg Tablet 40 mg PO DAILY Qty: 30 RF: 0 clopidogrel 75 mg tablet 1 tab PO QAM RF: 0 doxycycline hyclate 100 mg capsule 100 mg PO BID Qty: 14 RF: 0 cephalexin 500 mg capsule 500 mg PO Q8H 7 Days Qty: 21 RF: 0 fluticasone propion-salmeterol [Advair Diskus] 250-50 mcg/dose blister with device 1 inh inhalation BID Qty: 60 RF: 0 valsartan [Diovan] 40 mg tablet 40 mg PO BID Qty: 60 RF: 0
[2021-10-17 04:33] VITALS: BP 147/84; PULSE 80; RESP 16; TEMP 36.8; O2SAT 98; BMI 28.8
[2021-10-17 04:46] LABS: MANUAL DIFF FLAG NO
[2021-10-17 04:47] LABS: Basophils Percent Auto 0.6 % (0-2); Eosinophils Absolute Auto 0.4 X10*3/uL (0.0-0.4); Eosinophils Percent Auto 5.6 % (0-4); Hematocrit 35.8 % (42.0-52.0); Hemoglobin 11.2 g/dl (14.0-18.0); Imm Gran Abs Auto 0.03 X10*3/uL (0.00-0.03); Imm Gran Pct Auto 0.4 % (0.0-0.4); Lymphocytes Absolute Auto 1.3 X10*3/uL (1.2-4.9); Lymphocytes Percent Auto 18.8 % (20-40); Mean Corpuscular HGB Conc 31.3 g/dl (31.0-36.0); Mean Corpuscular Hemoglobin 26.1 pg (27.0-33.0); Mean Corpuscular Volume 83.4 fL (80.0-98.0); Mean Platelet Volume 9.7 fL (9.4-12.4); Monocytes Percent Auto 13.9 % (2-11); Neutrophils Absolute Auto 4.3 x10*3/uL (2.0-8.3); Neutrophils Percent Auto 60.7 % (45-73); Platelet Count 261 X10*3/uL (160-400); Red Blood Count 4.29 X10*6/uL (4.60-5.80); Red Cell Distribution Width 14.4 % (11.0-16.0); White Blood Count 7.1 X10*3/uL (4.8-10.8)
[2021-10-17 04:52] LABS: INTERNATIONAL NORM RATIO 1.1 (0.9-1.1); Prothrombin Time 12.3 SEC (9.9-13.0)
[2021-10-17 04:59] LABS: COVID-19 Test Negative (Negative)
[2021-10-17 05:03] LABS: Alanine Aminotransferase 12 U/L (0-40); Albumin Level 3.7 g/dL (3.5-5.0); Alkaline Phosphatase 108 U/L (39-117); Anion Gap 15 (12-20); Aspartate Amino Transferase 22 U/L (5-37); Bilirubin Direct 0.2 mg/dL (0.0-0.5); Bilirubin Total 0.4 mg/dL (0.0-1.0); Blood Urea Nitrogen 25 mg/dL (9-16); Calcium 9.9 mg/dL (8.4-10.2); Carbon Dioxide 24 mmol/L (22-29); Chloride 101 mmol/L (96-108); Creatinine Clr Calc Pharmacy 88.6; Estimated Glomerular Filt Rate > 60; Glucose Random 144 mg/dL (60-115); Potassium 4.5 mmol/L (3.3-5.1); Sodium 135 mmol/L (135-145); Total Protein 7.6 g/dL (6.5-8.0)
[2021-10-17 05:08] LABS: B Type Natriuretic Peptide 664 pg/mL (<100); Troponin-I High Sensitivity 13.3 ng/L (<3.5-35.0)
--- NOTE | 2021-10-17 06:09 | PC.NURSE ---
PT A&O, NO RETRACTION, PT ABLE TO SPEAK IN FULL SENTENCES. PT STATING IN THE HIGH 90'S ON ROOM AIR.
[2021-10-17 06:14] VITALS: RESP 16
[2021-10-17 08:59] VITALS: BP 150/85; PULSE 92; RESP 18; O2SAT 95
--- NOTE | 2021-10-17 09:00 | PC.NURSE ---
pt alert and oriented, skin pwd, in no apparent distress at this time, vs stable pt awaiting transfer back home
--- NOTE | 2021-10-17 09:32 | PC.NURSE ---
@1117 [facility] CALLED FOR W/C CAR COVERAGE FOR THIS PT TO GO HOME D/T [facility] W/ NO ARTIFICIAL LIMB AT BEDSIDE SOFY ANSWERS AND GIVES AN ETA OF 10:30-11AM
--- NOTE | 2021-10-17 12:15 | PC.NURSE ---
pt still awaiting transport back home
== END 2021-10-17 12:36 | disposition home or self-care (01) ==
PROVIDERS: Emergency Provider Emergency Medicine; PCP Family Medicine
DX: R06.09 Other forms of dyspnea (principal); I50.42 Chronic combined systolic (congestive) and diastolic (congestive) heart failure; J44.9 Chronic obstructive pulmonary disease, unspecified; E11.9 Type 2 diabetes mellitus without complications; Z20.822 Contact with and (suspected) exposure to COVID-19
CPT/HCPCS: 36415; 71045; 80048; 80076; 83880; 84484; 85025; 85610; 87635; 93005; 99283; 99284

== ENCOUNTER 2021-12-16 16:14 | Emergency (ER) | payer MEDICAID, SELFPAY ==
[2021-12-16 16:23] VITALS: BP 144/87; BP 146/63; PULSE 102; PULSE 78; RESP 18; TEMP 36.6; O2SAT 97; O2SAT 99; BMI 22.4
[2021-12-16 16:43] VITALS: BP 134/84; PULSE 95; RESP 18; TEMP 36.6; O2SAT 96
--- NOTE | 2021-12-16 17:23 | PC.NURSE ---
pt reports R leg pain x3 days and wound to right BKA. he has history of R BKA X3 years, pt also diabetic and is followed by wound clinic. pt states that he got the wound while sleeping. vss, alert and oriented.
[2021-12-16] MEDS: Albuterol Sulfate (0.083%) 2.5 MG/3 ML VIAL.NEB INHALE (17:53)
[2021-12-16] MEDS: cephALEXin 500 MG CAPSULE PO (17:53)
[2021-12-16] MEDS: predniSONE 20 MG TABLET 40 MG PO (17:54)
[2021-12-16 17:56] VITALS: PULSE 98; RESP 20; O2SAT 100
[2021-12-16 18:28] VITALS: BP 130/77; PULSE 96; RESP 18; TEMP 36.8; O2SAT 100
--- NOTE | 2021-12-16 18:47 | ED_ITS ---
HPI - General Adult General Chief complaint: Extremity Injury, Lower Stated complaint: R LEG PAIN X'S 3 DAYS, H/O R BKA X'S 3 YEARS Time Seen by Provider: 12/16/21 17:34 Source: patient Mode of arrival: EMS Limitations: language barrier (Patient's 1st language is [place] Islander, he speaks some Tamaz[place], spring fitter helper was used) History of Present Illness HPI narrative: 51-year-old male who presents emergency department for evaluation of multiple complaints. Patient states that he has pain in his right leg. The patient has a right [id number] amputation and he has a eschar like lesion on the right lateral hip that looks like a burn the patient is not certain how he got this injury. He states that he is having pain from the hip down to his stump. States the pain is a constant, throbbing pain that is moderate to severe in intensity, he is concerned that he may have an infection. He is also complaining of a ulcer to his left great toe that he states is gotten larger, the right great toe is swollen and he states that his right foot is swollen as well. States he is having pain in that toe as well which he describes as a constant, throbbing sensation which is moderate to severe in intensity. Patient also states that he is having an asthma attack. He states that he is feeling short of breath and his nebulizer machine is not working. He denied fever, chills, cough, chest pain, abdominal pain, nausea or vomiting. The patient has received 2 Moderna COVID-19 vaccinations with the 2nd vaccinati on given on 09/10/2021. Related Data Home Medications Medication Instructions Recorded Confirmed FreeStyle Lite Strips 08/12/20 02/13/21 albuterol sulfate 2.5 mg INHALATION Q4H PRN 08/12/20 10/08/21 albuterol sulfate 90 2 puff INHALATION Q4H PRN 08/12/20 10/08/21 mcg/actuation aerosol inhaler blood-glucose meter (FreeStyle 08/12/20 02/13/21 [place] Lite) cane 08/12/20 02/13/21 lancets 08/12/20 02/13/21 methadone 10 mg/mL oral 50 mg PO QAM 08/12/20 10/08/21 concentrate pen needle, diabetic 08/12/20 02/13/21 aspirin 81 mg tablet,delayed 81 mg PO DAILY 08/14/20 10/08/21 release atorvastatin 20 mg tablet 20 mg PO BEDTIME 08/14/20 10/08/21 carvedilol 6.25 mg tablet 6.25 mg PO BID 08/14/20 10/08/21 cetirizine 10 mg tablet 10 mg PO DAILY 08/14/20 10/08/21 fluticasone propionate 50 1 spray INTRANASAL DAILY 08/14/20 10/08/21 mcg/actuation nasal spray,suspension (Flonase Allergy Relief) gabapentin 100 mg capsule 200 mg PO TID 08/14/20 10/08/21 insulin glargine 100 unit/mL 12 unit SUBCUT QPM 08/14/20 10/08/21 subcutaneous solution (Lantus U-100 Insulin) montelukast 10 mg tablet 10 mg PO BEDTIME 08/14/20 10/08/21 spironolactone 25 mg tablet 12.5 mg PO DAILY 08/14/20 10/08/21 tamsulosin 0.4 mg capsule 0.4 mg PO DAILY 08/14/20 10/08/21 clopidogrel 75 mg tablet 1 tab PO QAM 10/08/21 10/08/21 Previous Rx's Medication Instructions Recorded furosemide 40 mg tablet 40 mg PO DAILY #30 tab 12/02/20 cephalexin 500 mg capsule 500 mg PO Q8H 7 Days #21 cap 10/11/21 doxycycline hyclate 100 mg capsule 100 mg PO BID #14 cap 10/11/21 fluticasone 250 mcg-salmeterol 50 1 inh INHALATION BID #60 ea 10/11/21 mcg/dose blistr powdr for inhalation (Advair Diskus) valsartan 40 mg tablet (Diovan) 40 mg PO BID #60 tab 10/11/21 cephalexin 500 mg capsule 500 mg PO QID 7 Days #28 cap 12/16/21 prednisone 20 mg tablet 40 mg PO DAILY 5 Days #10 tab 12/16/21 Allergies Allergy/AdvReac Type Severity Reaction Status Date / Time ertapenem Allergy Intermediate Hives Verified 07/20/21 01:06 vancomycin Allergy Intermediate HIVES Verified 07/20/21 01:06 [VANCOMYCIN] Chocolate Allergy Unknown Rash Verified 07/20/21 01:06 ciprofloxacin [From Allergy Unknown SWELLING Verified 07/20/21 01:06 CIPRO] hydrocortisone [Cipro Allergy Unknown Unknown Verified 07/20/21 01:06 HC] sulfamethoxazole Allergy Unknown rash Verified 07/20/21 01:06 [From BACTRIM] trimethoprim [From Allergy Unknown rash Verified 07/20/21 01:06 BACTRIM] turkey [TURKEY] Allergy Unknown RASH Verified 07/20/21 01:06 Review of Systems Verdana 4l Review of Systems: Yes all other systems are reviewed and Verdana 4d are negative FOR[facility]LY [facility] Past Medical History [facility] Narrative: Social history: He denies tobacco use, denies alcohol use, he states he occasionally smokes marijuana. Medical History Abscess or cellulitis of foot Acute on chronic anemia Acute on chronic combined systolic and diastolic congestive heart failure Acute respiratory failure with hypoxia Asthma Bipolar 1 disorder BPH (benign prostatic hyperplasia) Cholelithiasis Closed wedge compression fracture of T9 vertebra COPD (chronic obstructive pulmonary disease) Diabetes mellitus Diabetes mellitus, type 2 GERD (gastroesophageal reflux disease) Hyperlipidemia Ischemic cardiomyopathy Lymphadenopathy Opiate abuse, continuous Peripheral arterial disease Peripheral neuropathy Substance abuse Tracheomalacia, acquired Surgical History History of amputation History of laminectomy History of transurethral resection of prostate Hx of BKA Family History Family History Father Chronic mental illness Hypertension Asthma Stroke Mother Asthma Diabetes Coronary artery disease Social History Social History Household Members: None Housing: Apartment Housing Other:: IN A LITTLE ROOM Do you presently have visiting nurse or other home services: Yes Alcohol intake: never Patient Tobacco Use Status: Never used Tobacco Second Hand Smoke Exposure: No Use of substances other than those prescribed or required for medical reasons: No Substance Use Type: Marijuana Advance Directives: Yes Advance Directives on File: Yes Advance Directives Date on File: 11/24/20 service: No Current occupational status: disabled Physical Exam Verdana 4l Vital Signs: Verdana 4d Verdana 4d Vital Signs: Verdana 4d Verdana 4Bd Last Vital Signs Verdana 4d Greeting Card Maker New 4d Greeting Card Maker New 4d Temp 98.3 F 12/16/21 18:28 4d Pulse 96 12/16/21 18:28 New 4d Resp 18 12/16/21 18:28 BP 130/77 12/16/21 18:28 Pulse Ox 100 12/16/21 18:28 BMI result Body Mass Index 22.4 Const: Other: Awake, alert, male patient, unkempt, pleasant and cooperative, answers all questions appropriately HENMT: Head: Yes normal to inspection, Yes normocephalic and Yes atraumatic Ears: external ears normal General nose exam: Normal external nose present Face and sinus: Yes normal facial exam Mouth: Normal oral and palatal mucosa present Throat: Yes posterior oropharynx normal Eyes: General: appearance normal, both eyes and all related structures Pupils: Equal, round and reactive pupils present Neck: Neck: Yes normal visual inspection, Yes no lymphadenopathy, Yes trachea midline and Yes supple Chest: Chest palpation & inspection: normal inspection of the chest and normal palp ation of entire chest wall Resp: Effort & Inspection: normal respiratory effort Auscultation: wheezes (Diffuse) Cardio: Rate: regular rate Rhythm: regular rhythm Heart sounds: S1 normal heart sound present, S2 normal heart sound present and no murmurs GI: Inspection: Yes normal to inspection Palpation (GI): Soft to palpation, no ntender and no guarding Auscultation: normal bowel sounds : General: Yes no CVA tenderness Back/Spine/Pelvis: Back: no CVA tenderness Skin: General skin exam: no rashes or lesions noted Neuro: Cranial nerves: Yes CN's II-XII intact bilaterally and Yes Equal, round and reactive pupils present Cognition (Neuro): normal cognition Motor exam (neuro): 5/5 motor strength present throughout Extrem: Other: The patient has a chronic appearing ulcer over the ventral aspect of the left great toe over the PIP joint, the left great toe and 2nd toe are erythematous and swollen, the patient's foot also appears to be swollen, there is some slight increased warmth over the toe. The pain has 2 scabbed over wounds over the right lateral thigh that looks like a burn wound that does not appear to be infected. Right [id number] amputee l Psych: Appearance: grossly normal Speech and movement: Normal speech and movement present Affect: normal affect Attitude: cooperative Thought process: Normal thought process present Thought content: Normal thought content present Course Course Course Narrative: 51-year-old male who presents emergency department for evaluation of pain in his right lateral thigh and shortness of breath. The patient also complained increased swelling and pain in his left great toe. The patient does have a history of asthma and COPD and he did have wheezing on his lung exam. He was treated with an albuterol nebulizer and oral prednisone 40 mg with improvement of his symptoms. I am concerned that the patient may have an early cellulitis of the left great toe and he does have a chronic diabetic ulcer. The patient st ates that he gets daily dressing changes any believes that the wound looks the same but he is concerned that he does have increased redness and swelling. The patient will be started Keflex 500 mg 4 times a day for 7 days. He was also started on prednisone 40 mg once a day for 5 days. Discharge Plan Discharge Clinical Impression: Diabetic toe ulcer, Infection of left foot, Burn of thigh, right, Asthma exacer bation Patient Disposition: Home, Self-Care Instructions: Asthma (DC), Cellulitis (ED) Additional Instructions: I am concerned that you have an infection of your left great toe I am starting you on Keflex (cephalexin) 500 mg 4 times a day for 7 days Muscle concerned that you might have a flare-up of your asthma/COPD and I am starting you on prednisone 40 mg once a day 5 days Take extra-strength Tylenol 500 mg pills, 2 pills every 6 hours as needed for pain Follow-up with your doctor in 2 days Please return to the emergency department if her symptoms get worse or if you develop any new symptoms that are concerning to Prescriptions: New prednisone 20 mg tablet 40 mg PO DAILY 5 Days Qty: 10 0RF cephalexin 500 mg capsule 500 mg PO QID 7 Days Qty: 28 0RF No Action albuterol sulfate 2.5 mg /3 mL (0.083 %) Solution For Nebulization 2.5 mg inhalation Q4H PRN (Reason: Shortness Of Breath Or Wheezing) 0RF (DME) lancets Misc MISCELLANEOUS 0RF (DME) blood-glucose meter [FreeStyle [place] Lite] Kit MISCELLANEOUS 0RF (DME) cane Device MISCELLANEOUS 0RF (DME) FreeStyle Lite Strips 0RF (DME) pen needle, diabetic Needle MISCELLANEOUS 0RF methadone 10 mg/mL Concentrate 50 mg PO QAM 0RF Label Comments: DOSE TO BE CONFIRMED WITH CLINIC albuterol sulfate 90 mcg/actuation Hfa Aerosol Inhaler 2 puff INHALATION Q4H PRN (Reason: Shortness Of Breath) 0RF spironolactone 25 mg Tablet 12.5 mg PO DAILY 0RF Lantus U-100 Insulin 100 unit/mL Solution 12 unit SUBCUT QPM 0RF cetirizine 10 mg Tablet 10 mg PO DAILY 0RF aspirin 81 mg Tablet,Delayed Release (Dr/Ec) 81 mg PO DAILY 0RF carvedilol 6.25 mg Tablet 6.25 mg PO BID 0RF atorvastatin 20 mg Tablet 20 mg PO BEDTIME 0RF tamsulosin 0.4 mg Capsule 0.4 mg PO DAILY 0RF montelukast 10 mg Tablet 10 mg PO BEDTIME 0RF gabapentin 100 mg Capsule 200 mg PO TID 0RF fluticasone propionate [Flonase Allergy Relief] 50 mcg/actuation [place],Suspension 1 spray INTRANASAL DAILY 0RF furosemide 40 mg Tablet 40 mg PO DAILY Qty: 30 0RF Protocol: Hold for SBP< HOLD for SBP < : 90 clopidogrel 75 mg tablet 1 tab PO QAM 0RF doxycycline hyclate 100 mg capsule 100 mg PO BID Qty: 14 0RF cephalexin 500 mg capsule 500 mg PO Q8H 7 Days Qty: 21 0RF fluticasone propion-salmeterol [Advair Diskus] 250-50 mcg/dose blister with device 1 inh inhalation BID Qty: 60 0RF valsartan [Diovan] 40 mg tablet 40 mg PO BID Qty: 60 0RF
== END 2021-12-16 19:35 | disposition home or self-care (01) ==
PROVIDERS: Emergency Provider Emergency Medicine Emergency Medical Services
DX: E11.621 Type 2 diabetes mellitus with foot ulcer (principal); L97.529 Non-pressure chronic ulcer of other part of left foot with unspecified severity; L08.89 Other specified local infections of the skin and subcutaneous tissue; T24.011A Burn of unspecified degree of right thigh, initial encounter; X08.8XXA Exposure to other specified smoke, fire and flames, initial encounter; J45.901 Unspecified asthma with (acute) exacerbation; M79.604 Pain in right leg; M79.672 Pain in left foot; F11.20 Opioid dependence, uncomplicated; E78.5 Hyperlipidemia, unspecified; Y93.9 Activity, unspecified; Y92.89 Other specified places as the place of occurrence of the external cause; Y99.9 Unspecified external cause status; Z89.511 Acquired absence of right leg below knee; Z79.4 Long term (current) use of insulin; Z79.02 Long term (current) use of antithrombotics/antiplatelets
CPT/HCPCS: 94640; 99284

== ENCOUNTER 2021-12-30 02:15 | Inpatient (IN) | payer MEDICAID, SELFPAY ==
[2021-12-30] VITALS (10 sets, daily range): BP systolic 115–142; BP diastolic 76–93; PULSE 78–113; RESP 12–20; TEMP 35.7–36.9; O2SAT 97–100; BMI 22.4
--- NOTE | ~2021-12-30 | US_ITS ---
EXAMINATION: US VENOUS ULTRASOUND WITH DOPPLER LOWER EXTREMITY, LEFT CLINICAL INFORMATION: Left leg swelling COMPARISON: June 10, 2019 TECHNIQUE: Ultrasound of the deep veins is performed from the hip to the calf with compression sonography and color and pulse Doppler assessment. Spectral analysis with color-flow imaging is performed. FINDINGS: There is normal venous compression and respiratory variation and augmented flow. The visualized common femoral vein, superficial femoral vein, profunda femoral vein, popliteal vein, and the trifurcation region shows no evidence of deep venous thrombosis. There is no significant popliteal fossa cyst. No popliteal artery aneurysm. US/US venous duplex LE LT IMPRESSION: No acute DVT demonstrated in the left lower extremity.
--- NOTE | ~2021-12-30 | XR_ITS ---
EXAMINATION: XR CHEST CLINICAL INFORMATION: Shortness of breath COMPARISON: 10/17/2021 TECHNIQUE: Frontal view of the chest was obtained. FINDINGS: There is cardiomegaly, pulmonary venous congestion and mild interstitial edema. No discrete consolidation. No pleural effusion or pneumothorax. Bones unremarkable. XR/XR chest 1V IMPRESSION: Stable portable radiographic appearance of the chest demonstrating cardiogenic pulmonary edema.
--- NOTE | ~2021-12-30 | XR_ITS ---
EXAMINATION: XR FOOT, LEFT CLINICAL INFORMATION: Diabetic foot ulcer. Rule out osteomyelitis COMPARISON: October 08, 2021 and September 21, 2021 TECHNIQUE: AP, lateral, and oblique views of the left foot. FINDINGS: There is ulceration seen about the left first interphalangeal joint. There is dislocation of the joint as well as bony destruction with erosions with the appearance of acute osteomyelitis. These changes are new compared to study of September 21, 2021. There are prominent vascular calcifications seen. Remainder of joint spaces appear unremarkable. There are calcaneal spurs sites of insertion of plantar and Achilles tendons. There is some spurring about the tibial talar joint. XR/XR foot LT 2V IMPRESSION: Findings consistent with acute osteomyelitis of the left first toe as described.
--- NOTE | ~2021-12-30 | US_ITS ---
EXAMINATION: ULTRASOUND ARTERIAL DUPLEX LOWER EXTREMITY LEFT CLINICAL INFORMATION: Peripheral vascular disease. Peripheral arterial disease. COMPARISON: Corresponding left and bilateral lower extremity arterial duplex ultrasound November 26, 2020 lower extremity DVT study TECHNIQUE: Grayscale, color and spectral Doppler imaging was obtained of the deep arterial system of the left lower extremity. FINDINGS: Deep arterial system of the left lower extremity is patent with the exception of the posterior tibial artery which is occluded. There are abnormal monophasic waveforms throughout the entirety of the left lower extremity. Velocities throughout the left lower extremity are within normal limits. There is no focally elevated velocity to suggest a hemodynamically significant stenosis although there does appear to be prominent plaque formation within the popliteal artery. Incidentally noted is a small fluid collection within the popliteal fossa which measures approximately 3.1 x 1.8 x 2.0 cm. This fluid collection is deep to a superficial scab. US/US arterial duplex LE IMPRESSION: -Monophasic waveforms are again noted throughout the entirety of the left lower extremity consistent with inflow disease. -Left posterior tibial artery is occluded. -Incidentally noted is a small fluid collection within the popliteal fossa which measures approximately 3.1 x 1.8 x 2.0 cm. This fluid collection is deep to a superficial scab.
--- NOTE | 2021-12-30 02:22 | ECG_ITS ---
Test Reason : ASTHMA Blood Pressure : / mmHG Vent. Rate : 110 BPM Atrial Rate : 110 BPM P-R Int : 174 ms QRS Dur : 108 ms QT Int : 348 ms P-R-T Axes : 027 -37 119 degrees QTc Int : 470 ms Sinus tachycardia with occasional Premature ventricular complexes Left axis deviation Minimal voltage criteria for LVH, may be normal variant ( Michael product ) ST & T wave abnormality, consider lateral ischemia Abnormal ECG When compared with ECG of 17-OCT-2021 04:42, Premature ventricular complexes are now Present Referred By: Kathryn Gruber Electronically Signed By:ROHAN VEGA MD
--- NOTE | 2021-12-30 02:38 | ED.ASTHMA ---
HPI - Asthma General Chief Complaint: Asthma Stated Complaint: asthma Time Seen by Provider: 12/30/21 02:21 Source: patient and EMS Mode of arrival: EMS History of Present Illness HPI Narrative: 51-year-old male with history of PAD, asthma, COPD who presents via EMS for asthma exacerbation. Patient also complaints of chest discomfort with productive cough. Otherwise, denies fever, chills, GI or symptoms. Related Data Home Medications Medication Instructions Recorded Confirmed FreeStyle Lite Strips 08/12/20 02/13/21 albuterol sulfate 2.5 mg INHALATION Q4H PRN 08/12/20 10/08/21 albuterol sulfate 90 mcg/actuation 2 puff INHALATION Q4H PRN 08/12/20 10/08/21 aerosol inhaler blood-glucose meter (FreeStyle 08/12/20 02/13/21 [place] Lite) cane 08/12/20 02/13/21 lancets 08/12/20 02/13/21 methadone 10 mg/mL oral concentrate 50 mg PO QAM 08/12/20 10/08/21 pen needle, diabetic 08/12/20 02/13/21 aspirin 81 mg tablet,delayed 81 mg PO DAILY 08/14/20 10/08/21 release atorvastatin 20 mg tablet 20 mg PO BEDTIME 08/14/20 10/08/21 carvedilol 6.25 mg tablet 6.25 mg PO BID 08/14/20 10/08/21 cetirizine 10 mg tablet 10 mg PO DAILY 08/14/20 10/08/21 fluticasone propionate 50 1 spray INTRANASAL DAILY 08/14/20 10/08/21 mcg/actuation nasal spray,suspension (Flonase Allergy Relief) gabapentin 100 mg capsule 200 mg PO TID 08/14/20 10/08/21 insulin glargine 100 unit/mL 12 unit SUBCUT QPM 08/14/20 10/08/21 subcutaneous solution (Lantus U-100 Insulin) montelukast 10 mg tablet 10 mg PO BEDTIME 08/14/20 10/08/21 spironolactone 25 mg tablet 12.5 mg PO DAILY 08/14/20 10/08/21 tamsulosin 0.4 mg capsule 0.4 mg PO DAILY 08/14/20 10/08/21 clopidogrel 75 mg tablet 1 tab PO QAM 10/08/21 10/08/21 Previous Rx's Medication Instructions Recorded furosemide 40 mg tablet 40 mg PO DAILY #30 tab 12/02/20 cephalexin 500 mg capsule 500 mg PO Q8H 7 Days #21 cap 10/11/21 doxycycline hyclate 100 mg capsule 100 mg PO BID #14 cap 10/11/21 fluticasone 250 mcg-salmeterol 50 1 inh INHALATION BID #60 ea 10/11/21 mcg/dose blistr powdr for inhalation (Advair Diskus) valsartan 40 mg tablet (Diovan) 40 mg PO BID #60 tab 10/11/21 cephalexin 500 mg capsule 500 mg PO QID 7 Days #28 cap 12/16/21 prednisone 20 mg tablet 40 mg PO DAILY 5 Days #10 tab 12/16/21 Allergies Allergy/AdvReac Type Severity Reaction Status Date / Time ertapenem Allergy Intermediate Hives Verified 07/20/21 01:06 vancomycin [VANCOMYCIN] Allergy Intermediate HIVES Verified 07/20/21 01:06 Chocolate Allergy Unknown Rash Verified 07/20/21 01:06 ciprofloxacin [From CIPRO] Allergy Unknown SWELLING Verified 07/20/21 01:06 hydrocortisone [Cipro HC] Allergy Unknown Unknown Verified 07/20/21 01:06 sulfamethoxazole Allergy Unknown rash Verified 07/20/21 01:06 [From BACTRIM] trimethoprim [From BACTRIM] Allergy Unknown rash Verified 07/20/21 01:06 turkey [TURKEY] Allergy Unknown RASH Verified 07/20/21 01:06 Review of Systems Review of Systems: Pertinent positives and negatives as stated in HPI 10 point review of systems is otherwise negative. [facility] Past Medical History Source: nursing notes reviewed Medical History Abscess or cellulitis of foot Acute on chronic anemia Acute on chronic combined systolic and diastolic congestive heart failure Acute respiratory failure with hypoxia Asthma Bipolar 1 disorder BPH (benign prostatic hyperplasia) Cholelithiasis Closed wedge compression fracture of T9 vertebra COPD (chronic obstructive pulmonary disease) Diabetes mellitus Diabetes mellitus, type 2 GERD (gastroesophageal reflux disease) Hyperlipidemia Ischemic cardiomyopathy Lymphadenopathy Opiate abuse, continuous Peripheral arterial disease Peripheral neuropathy Substance abuse Tracheomalacia, acquired Surgical History History of amputation History of laminectomy History of transurethral resection of prostate Hx of BKA Family History Family History Father Chronic mental illness Hypertension Asthma Stroke Mother Asthma Diabetes Coronary artery disease Social History Social History Household Members: None Housing: Apartment Housing Other:: IN A LITTLE ROOM Do you presently have visiting nurse or other home services: Yes Alcohol intake: never Patient Tobacco Use Status: Never used Tobacco Second Hand Smoke Exposure: No Substance Use Type: Marijuana Advance Directives: Yes Advance Directives on File: Yes Advance Directives Date on File: 11/24/20 service: No Current occupational status: disabled Physical Exam Vital Signs: Vital Signs: Last Vital Signs Temp 98.4 F 12/30/21 02:18 Pulse 111 H 12/30/21 04:13 Resp 16 12/30/21 04:13 BP 142/92 H 12/30/21 04:13 Pulse Ox 99 12/30/21 04:13 BMI result Body Mass Index 22.4 VITAL SIGNS: Reviewed. GENERAL: Chronically ill, appears older than stated age, in mild distress. HEAD: Normocephalic/atraumatic EYES: PERRLA, EOMI EARS: Ext canals without abnormality NOSE: Nares patent bilateral OROPHARYNX: no oral lesions noted, posterior pharynx clear LUNGS: Decreased bibasilar breath sounds, with scattered rhonchi bilaterally, mild expiratory wheeze, no tachypnea. SpO2<100> CARDIOVASCULAR: Regular rate and rhythm without noted murmurs, no JVD or lower extremity edema. ABDOMEN: Soft, non-tender, non-distended with bowel sounds. SKIN: Inspection of the skin reveals no rashes NEUROLOGIC: Alert and oriented x 4. Strength and sensation to light touch were grossly intact x 4. Course Course Course Narrative: 51-year-old male with history and clinical presentation suggestive of possible pneumonia, asthma/COPD exacerbation. Review of all investigations significant for CHF exacerbation without hypoxia, patient provided with IV Lasix as well as a 5 mg initial albuterol treatment. There are no acute changes on EKG and noted elevation of high sensitivity troponin is consistent with patient's prior levels. This case was discussed with the inpatient hospitalist who accepts admission. MDM - Asthma Lab Data Result diagrams: 12/30/21 02:35 12/30/21 02:35 Labs: Lab Results 12/30/21 12/30/21 12/30/21 Range/Units 02:35 02:35 02:35 WBC 10.9 H (4.8-10.8) X10*3/uL RBC 5.35 D (4.60-5.80) X10*6/uL Hgb 14.0 D (14.0-18.0) g/dl Hct 45.3 D (42.0-52.0) % MCV 84.7 (80.0-98.0) fL MCH 26.2 L (27.0-33.0) pg MCHC 30.9 L (31.0-36.0) g/dl RDW 17.5 H (11.0-16.0) % Plt Count 344 D (160-400) X10*3/uL MPV 9.3 L (9.4-12.4) fL Immature Gran % (Auto) 0.4 (0.0-0.4) % Neut % (Auto) 76.1 H (45-73) % Lymph % (Auto) 12.6 L (20-40) % Traverse % (Auto) 10.6 (2-11) % Eos % (Auto) 0.1 (0-4) % Baso % (Auto) 0.2 (0-2) % Lymph # (Auto) 1.4 (1.2-4.9) X10*3/uL Traverse # (Auto) 1.2 (0.1-1.2) X10*3/uL Eos # (Auto) 0.0 (0.0-0.4) X10*3/uL Baso # (Auto) 0.0 (0.0-0.2) X10*3/uL Abs Immat Gran (auto) 0.04 H (0.00-0.03) X10*3/uL Absolute Neuts (auto) 8.3 (2.0-8.3) x10*3/uL Absolute Nucleated RBC 0.000 (0.0-0.012) X10*3/uL Nucleated RBC % (auto) 0.0 (0.0-0.2) /100WBC VBG pH (7.32-7.43) VBG pCO2 mmHg VBG pO2 mmHg VBG HCO3 (22-26) mmol/L VBG O2 Saturation % VBG Base Excess mmol/L Sodium 131 L (135-145) mmol/L Potassium 4.7 (3.3-5.1) mmol/L Chloride 93 L (96-108) mmol/L Carbon Dioxide 26 (22-29) mmol/L Anion Gap 17 (12-20) BUN 13 (9-16) mg/dL Creatinine 0.93 (0.5-1.4) mg/dL Estim Creat Clear Calc 81.9 Estimated GFR > 60 Random Glucose 205 H D (60-115) mg/dL Calcium 9.7 (8.4-10.2) mg/dL Total Bilirubin 1.0 (0.0-1.0) mg/dL AST 33 D (5-37) U/L ALT 97 H (0-40) U/L Alkaline Phosphatase 134 H D (39-117) U/L Troponin I High Sens 25.5 D (<3.5-35.0) ng/L B-Natriuretic Peptide 6883 H (<100) pg/mL Total Protein 7.7 (6.5-8.0) g/dL Albumin 3.6 (3.5-5.0) g/dL COVID-19 (JAMILA) (Negative) COVID-19 Clin Com 12/30/21 12/30/21 Range/Units 02:37 04:09 WBC (4.8-10.8) X10*3/uL RBC (4.60-5.80) X10*6/uL Hgb (14.0-18.0) g/dl Hct (42.0-52.0) % MCV (80.0-98.0) fL MCH (27.0-33.0) pg MCHC (31.0-36.0) g/dl RDW (11.0-16.0) % Plt Count (160-400) X10*3/uL MPV (9.4-12.4) fL Immature Gran % (Auto) (0.0-0.4) % Neut % (Auto) (45-73) % Lymph % (Auto) (20-40) % Traverse % (Auto) (2-11) % Eos % (Auto) (0-4) % Baso % (Auto) (0-2) % Lymph # (Auto) (1.2-4.9) X10*3/uL Traverse # (Auto) (0.1-1.2) X10*3/uL Eos # (Auto) (0.0-0.4) X10*3/uL Baso # (Auto) (0.0-0.2) X10*3/uL Abs Immat Gran (auto) (0.00-0.03) X10*3/uL Absolute Neuts (auto) (2.0-8.3) x10*3/uL Absolute Nucleated RBC (0.0-0.012) X10*3/uL Nucleated RBC % (auto) (0.0-0.2) /100WBC VBG pH 7.33 (7.32-7.43) VBG pCO2 55 mmHg VBG pO2 34 mmHg VBG HCO3 29 H (22-26) mmol/L VBG O2 Saturation 43.0 % VBG Base Excess 1.9 mmol/L Sodium (135-145) mmol/L Potassium (3.3-5.1) mmol/L Chloride (96-108) mmol/L Carbon Dioxide (22-29) mmol/L Anion Gap (12-20) BUN (9-16) mg/dL Creatinine (0.5-1.4) mg/dL Estim Creat Clear Calc Estimated GFR Random Glucose (60-115) mg/dL Calcium (8.4-10.2) mg/dL Total Bilirubin (0.0-1.0) mg/dL AST (5-37) U/L ALT (0-40) U/L Alkaline Phosphatase (39-117) U/L Troponin I High Sens (<3.5-35.0) ng/L B-Natriuretic Peptide (<100) pg/mL Total Protein (6.5-8.0) g/dL Albumin (3.5-5.0) g/dL COVID-19 (JAMILA) Negative (Negative) COVID-19 Clin Com See Note ECG Data Attestation: I personally reviewed and interpreted this ECG as follows: Prior ECG tracings: available for review Interpretation: Sinus tachycardia, HR-110, no STEMI, UT/QTC are within normal limits Critical Care Time Critical Care Time Critical Care Time: Yes Total Critical Care Time: 30 Attestation: I personally attest to this time spent taking care of the patient. Discharge Plan Discharge Clinical Impression: CHF exacerbation, Elevated troponin Patient Disposition: Admitted As Inpatient Prescriptions: No Action albuterol sulfate 2.5 mg /3 mL (0.083 %) Solution For Nebulization 2.5 mg inhalation Q4H PRN (Reason: Shortness Of Breath Or Wheezing) 0RF (DME) lancets Misc MISCELLANEOUS 0RF (DME) blood-glucose meter [FreeStyle [place] Lite] Kit MISCELLANEOUS 0RF (DME) cane Device MISCELLANEOUS 0RF (DME) FreeStyle Lite Strips 0RF (DME) pen needle, diabetic Needle MISCELLANEOUS 0RF methadone 10 mg/mL Concentrate 50 mg PO QAM 0RF Label Comments: DOSE TO BE CONFIRMED WITH CLINIC albuterol sulfate 90 mcg/actuation Hfa Aerosol Inhaler 2 puff INHALATION Q4H PRN (Reason: Shortness Of Breath) 0RF spironolactone 25 mg Tablet 12.5 mg PO DAILY 0RF Lantus U-100 Insulin 100 unit/mL Solution 12 unit SUBCUT QPM 0RF cetirizine 10 mg Tablet 10 mg PO DAILY 0RF aspirin 81 mg Tablet,Delayed Release (Dr/Ec) 81 mg PO DAILY 0RF carvedilol 6.25 mg Tablet 6.25 mg PO BID 0RF atorvastatin 20 mg Tablet 20 mg PO BEDTIME 0RF tamsulosin 0.4 mg Capsule 0.4 mg PO DAILY 0RF montelukast 10 mg Tablet 10 mg PO BEDTIME 0RF gabapentin 100 mg Capsule 200 mg PO TID 0RF fluticasone propionate [Flonase Allergy Relief] 50 mcg/actuation [place],Suspension 1 spray INTRANASAL DAILY 0RF furosemide 40 mg Tablet 40 mg PO DAILY Qty: 30 0RF Protocol: Hold for SBP< HOLD for SBP < : 90 prednisone 20 mg tablet 40 mg PO DAILY 5 Days Qty: 10 0RF cephalexin 500 mg capsule 500 mg PO QID 7 Days Qty: 28 0RF clopidogrel 75 mg tablet 1 tab PO QAM 0RF doxycycline hyclate 100 mg capsule 100 mg PO BID Qty: 14 0RF cephalexin 500 mg capsule 500 mg PO Q8H 7 Days Qty: 21 0RF fluticasone propion-salmeterol [Advair Diskus] 250-50 mcg/dose blister with device 1 inh inhalation BID Qty: 60 0RF valsartan [Diovan] 40 mg tablet 40 mg PO BID Qty: 60 0RF
[2021-12-30] MEDS: Albuterol Sulfate (0.083%) 2.5 MG/3 ML VIAL.NEB 5 MG INHALE (02:39)
[2021-12-30 02:40] LABS: Basophils Percent Auto 0.2 % (0-2); Eosinophils Percent Auto 0.1 % (0-4); Hematocrit 45.3 % (42.0-52.0); Imm Gran Abs Auto 0.04 X10*3/uL (0.00-0.03); Imm Gran Pct Auto 0.4 % (0.0-0.4); Lymphocytes Absolute Auto 1.4 X10*3/uL (1.2-4.9); Lymphocytes Percent Auto 12.6 % (20-40); MANUAL DIFF FLAG NO; Mean Corpuscular HGB Conc 30.9 g/dl (31.0-36.0); Mean Corpuscular Hemoglobin 26.2 pg (27.0-33.0); Mean Corpuscular Volume 84.7 fL (80.0-98.0); Mean Platelet Volume 9.3 fL (9.4-12.4); Monocytes Absolute Auto 1.2 X10*3/uL (0.1-1.2); Monocytes Percent Auto 10.6 % (2-11); Neutrophils Absolute Auto 8.3 x10*3/uL (2.0-8.3); Neutrophils Percent Auto 76.1 % (45-73); Platelet Count 344 X10*3/uL (160-400); Red Blood Count 5.35 X10*6/uL (4.60-5.80); Red Cell Distribution Width 17.5 % (11.0-16.0); White Blood Count 10.9 X10*3/uL (4.8-10.8)
[2021-12-30 02:44] LABS: VBG Base Excess 1.9 mmol/L; VBG HCO3 29 mmol/L (22-26); VBG pCO2 55 mmHg; VBG pH 7.33 (7.32-7.43); VBG pO2 34 mmHg
[2021-12-30 02:45] LABS: Venous Blood Gas Refer to POC result
[2021-12-30 03:05] LABS: Alanine Aminotransferase 97 U/L (0-40); Albumin Level 3.6 g/dL (3.5-5.0); Alkaline Phosphatase 134 U/L (39-117); Anion Gap 17 (12-20); Aspartate Amino Transferase 33 U/L (5-37); Blood Urea Nitrogen 13 mg/dL (9-16); Calcium 9.7 mg/dL (8.4-10.2); Carbon Dioxide 26 mmol/L (22-29); Chloride 93 mmol/L (96-108); Creatinine Clr Calc Pharmacy 81.9; Estimated Glomerular Filt Rate > 60; Glucose Random 205 mg/dL (60-115); Potassium 4.7 mmol/L (3.3-5.1); Sodium 131 mmol/L (135-145); Total Protein 7.7 g/dL (6.5-8.0)
[2021-12-30 03:16] LABS: B Type Natriuretic Peptide 6883 pg/mL (<100)
[2021-12-30] MEDS: Furosemide 100 MG/10 ML VIAL 80 MG IVPUSH (04:14)
[2021-12-30 04:19] LABS: Troponin-I High Sensitivity 25.5 ng/L (<3.5-35.0)
[2021-12-30 04:28] LABS: COVID-19 Test Negative (Negative)
[2021-12-30] MEDS: HYDROmorphone HCl 0.5 MG/0.5 ML SYRINGE IVPUSH ×2 (05:52→19:18)
--- NOTE | 2021-12-30 06:04 | P.HPHOSP_ITS ---
History of Present Illness Date of Service: 12/30/21 Chief Complaint: Shortness of breath 51-year-old male with a past medical history of hypertension, hyperlipidemia, diabetes, CHF with EF of 15-20%, peripheral vascular disease, anxiety, depression, bipolar disorder, BPH, opiate dependence, COPD, GERD, compression bridge fracture presented to the hospital with a chief complaint of shortness of breath. Patient reported that he felt acutely short of breath around midnight. Mentioned that there was no electricity in his house and does very Code. Hence presented to the hospital for further evaluation. Also complained of mild chest discomfort which currently resolved. Complains of cough with whitish sputum production. Denies any fevers. Denies any GI or symptoms. Reports that he has been complaint with his home medications. Mentions that he has chronic wound on his left great toe and has been [facility]. And has been taking cephalexin. Review of all other systems is negative except mentioned above ER course: Per ER team patient on presentation noted to be in congestion; mildly tachycardic, having cough with frothy sputum, chest x-ray showed congestion; on labs noted to elevated proBNP; concern for acute CHF exacerbation. Given Lasix 80 mg IV. Admitted for further management. [facility] Medical History Abscess or cellulitis of foot Acute on chronic anemia Acute on chronic combined systolic and diastolic congestive heart failure Acute respiratory failure with hypoxia Asthma Bipolar 1 disorder BPH (benign prostatic hyperplasia) Cholelithiasis Closed wedge compression fracture of T9 vertebra COPD (chronic obstructive pulmonary disease) Diabetes mellitus Diabetes mellitus, type 2 GERD (gastroesophageal reflux disease) Hyperlipidemia Ischemic cardiomyopathy Lymphadenopathy Opiate abuse, continuous Peripheral arterial disease Peripheral neuropathy Substance abuse Tracheomalacia, acquired Family History Father Chronic mental illness Hypertension Asthma Stroke Mother Asthma Diabetes Coronary artery disease Pertinent family history: As above Surgical History History of amputation History of laminectomy History of transurethral resection of prostate Hx of BKA Social History Household Members: None Housing: Apartment Housing Other:: IN A LITTLE ROOM Do you presently have visiting nurse or other home services: Yes Alcohol intake: never Patient Tobacco Use Status: Never used Tobacco Second Hand Smoke Exposure: No Substance Use Type: Marijuana Advance Directives: Yes Advance Directives on File: Yes Advance Directives Date on File: 11/24/20 service: No Current occupational status: disabled Meds Allergies Allergy/AdvReac Type Severity Reaction Status Date / Time ertapenem Allergy Intermediate Hives Verified 07/20/21 01:06 vancomycin [VANCOMYCIN] Allergy Intermediate HIVES Verified 07/20/21 01:06 Chocolate Allergy Unknown Rash Verified 07/20/21 01:06 ciprofloxacin [From CIPRO] Allergy Unknown SWELLING Verified 07/20/21 01:06 hydrocortisone [Cipro HC] Allergy Unknown Unknown Verified 07/20/21 01:06 sulfamethoxazole Allergy Unknown rash Verified 07/20/21 01:06 [From BACTRIM] trimethoprim [From BACTRIM] Allergy Unknown rash Verified 07/20/21 01:06 turkey [TURKEY] Allergy Unknown RASH Verified 07/20/21 01:06 Active Medications: Current Medications Acetaminophen (Acetaminophen 325 Mg Tablet) 650 mg PO Q6H PRN PRN Reason: Pain, Mild (Pain Scale 1-3) Dextrose (Dextrose 50 % 25 Gm/50 Ml Syringe) 25 gm IVPUSH Q15M PRN; Protocol PRN Reason: per Hypoglycemia Standing Ord. Docusate Sodium (Docusate Sodium 100 Mg Capsule) 100 mg PO DAILY PRN PRN Reason: Constipation Enoxaparin Sodium (Enoxaparin Sodium 40 Mg/0.4 Ml Syringe) 40 mg SUBCUT Q24H [place] Furosemide (Furosemide 40 Mg/4 Ml Vial) 40 mg IVPUSH BID V[place]URA; Protocol Glucose (Glucose Gel 15 Gm Gel..Gram.) 15 gm PO Q15M PRN; Protocol PRN Reason: per Hypoglycemia Standing Ord. Hydromorphone HCl (Hydromorphone Hcl 0.5 Mg/0.5 Ml Syringe) 0.5 mg IVPUSH Q4H PRN; Protocol PRN Reason: Breakthrough Pain Last Admin: 12/30/21 05:52 Dose: 0.5 mg Documented by: Insulin Human Lispro (Insulin Lispro 100 Unit/Ml 3 Ml Vial) 0 unit SUBCUT QIDACHS VENTURA; Protocol Melatonin (Melatonin 3 Mg Tablet) 6 mg PO BEDTIME PRN PRN Reason: Insomnia Sodium Chloride (0.9 % Sodium Chloride Flush 3 Ml Syringe) 3 ml IVFLUSH QSHIFT [facility] Home Medications Medication Instructions Recorded Confirmed Last Taken Type FreeStyle Lite Strips 08/12/20 02/13/21 Unknown History albuterol sulfate 2.5 mg INHALATION Q4H PRN 08/12/20 10/08/21 Unknown History albuterol sulfate 90 mcg/actuation 2 puff INHALATION Q4H PRN 08/12/20 10/08/21 Unknown History aerosol inhaler blood-glucose meter (FreeStyle 08/12/20 02/13/21 Unknown History [place] Lite) cane 08/12/20 02/13/21 Unknown History lancets 08/12/20 02/13/21 Unknown History methadone 10 mg/mL oral concentrate 50 mg PO QAM 08/12/20 10/08/21 01/02/21 History pen needle, diabetic 08/12/20 02/13/21 Unknown History aspirin 81 mg tablet,delayed 81 mg PO DAILY 08/14/20 10/08/21 Unknown History release atorvastatin 20 mg tablet 20 mg PO BEDTIME 08/14/20 10/08/21 Unknown History carvedilol 6.25 mg tablet 6.25 mg PO BID 08/14/20 10/08/21 Unknown History cetirizine 10 mg tablet 10 mg PO DAILY 08/14/20 10/08/21 Unknown History fluticasone propionate 50 1 spray INTRANASAL DAILY 08/14/20 10/08/21 Unknown History mcg/actuation nasal spray,suspension (Flonase Allergy Relief) gabapentin 100 mg capsule 200 mg PO TID 08/14/20 10/08/21 Unknown History insulin glargine 100 unit/mL 12 unit SUBCUT QPM 08/14/20 10/08/21 Unknown Histo ry subcutaneous solution (Lantus U-100 Insulin) montelukast 10 mg tablet 10 mg PO BEDTIME 08/14/20 10/08/21 Unknown History spironolactone 25 mg tablet 12.5 mg PO DAILY 08/14/20 10/08/21 Unknown History tamsulosin 0.4 mg capsule 0.4 mg PO DAILY 08/14/20 10/08/21 Unknown History clopidogrel 75 mg tablet 1 tab PO QAM 10/08/21 10/08/21 Unknown History losartan 25 mg tablet 1 tab PO QAM 12/30/21 12/30/21 Unknown History Physical Exam Vital Signs and Narrative: Vital Signs: Last Vital Signs Temp 98.4 F 12/30/21 02:18 Pulse 104 H 12/30/21 05:49 Resp 16 12/30/21 05:52 BP 128/84 12/30/21 05:49 Pulse Ox 98 12/30/21 05:49 BMI result Body Mass Index 22.4 Gen: Appears be in no acute distress. Speaks in full sentences. Saturating well on room air. HEENT: NCAT, Moist mucosa. Pulmonary: Crackles present bilaterally CVS: Normal S1-S2 Abdomen: BS+, Soft, Nontender Extremities: Warm well perfused; RLE status post amputation; left great toe has wound with dressing in place. Left lower extremity has 2+ pitting edema Neuro: Alert and awake. Results Labs CBC and Chem 7: 12/30/21 02:35 12/30/21 02:35 Labs: Laboratory Results - last 24 hr 12/30/21 12/30/21 12/30/21 02:35 02:35 02:35 MCV 84.7 MCH 26.2 L MCHC 30.9 L RDW 17.5 H Plt Count 344 D MPV 9.3 L Immature Gran % (Auto) 0.4 Neut % (Auto) 76.1 H Lymph % (Auto) 12.6 L [place] % (Auto) 10.6 Eos % (Auto) 0.1 Baso % (Auto) 0.2 Lymph # (Auto) 1.4 [place] # (Auto) 1.2 Eos # (Auto) 0.0 Baso # (Auto) 0.0 Abs Immat Gran (auto) 0.04 H Absolute Neuts (auto) 8.3 Absolute Nucleated RBC 0.000 Nucleated RBC % (auto) 0.0 VBG pH VBG pCO2 VBG pO2 VBG HCO3 VBG O2 Saturation VBG Base Excess Anion Gap 17 Estim Creat Clear Calc 81.9 Estimated GFR > 60 Random Glucose 205 H D Calcium 9.7 Total Bilirubin 1.0 AST 33 D ALT 97 H Alkaline Phosphatase 134 H D B-Natriuretic Peptide 6883 H Total Protein 7.7 Albumin 3.6 COVID-19 (JAMILA) COVID-19 Clin Com 12/30/21 12/30/21 02:37 04:09 MCV MCH MCHC RDW Plt Count MPV Immature Gran % (Auto) Neut % (Auto) Lymph % (Auto) [place] % (Auto) Eos % (Auto) Baso % (Auto) Lymph # (Auto) [place] # (Auto) Eos # (Auto) Baso # (Auto) Abs Immat Gran (auto) Absolute Neuts (auto) Absolute Nucleated RBC Nucleated RBC % (auto) VBG pH 7.33 VBG pCO2 55 VBG pO2 34 VBG HCO3 29 H VBG O2 Saturation 43.0 VBG Base Excess 1.9 Anion Gap Estim Creat Clear Calc Estimated GFR Random Glucose Calcium Total Bilirubin AST ALT Alkaline Phosphatase B-Natriuretic Peptide Total Protein Albumin COVID-19 (JAMILA) Negative COVID-19 Clin Com See Note Imaging Radiologist's Impressions: Impressions Chest X-Ray 12/30/21 03:25 IMPRESSION: Stable portable radiographic appearance of the chest demonstrating cardiogenic pulmonary edema. Assessment and Plan Plan 51-year-old male with a past medical history of hypertension, hyperlipidemia, diabetes, CHF with EF of 15-20%, peripheral vascular disease, anxiety, depression, bipolar disorder, BPH, opiate dependence, COPD, GERD, compression bridge fracture presented to the hospital with a chief complaint of shortness of breath. Shortness of breath: The setting of CHF exacerbation. Not in respiratory distress. Patient has known history of tracheomalacia. Supplemental oxygen p.r.n. D-dimer pending Acute on chronic combined systolic and diastolic CHF exacerbation: Echocardiogram from September 2021 showed EF of 15-20%, grade 3 diastolic dysfunction, elevated RV systolic pressure E EKG nonischemic Troponin 25.5, repeat pending Daily weights and I's and O's IV Lasix 40 mg b.i.d. Cardiology consult Diabetic foot ulcer: Patient on p.o. Keflex at home. Will continue. wound consult For regular dressings. History of diabetes: Insulin sliding scale History of COPD: DuoNebs p.r.n. History of opiate dependence: Patient on methadone. Addiction Medicine consult History of hypertension / hyperlipidemia/PVD: Continue home aspirin, statin, beta-cass, valsartan History of neuropathy: Continue home gabapentin History of BPH: Continue home Flomax Home medications as mentioned above to be continued, pending med rec DVT prophylaxis: Lovenox Code status: Full code Quality Stroke Does the patient have a stroke diagnosis?: No VTE Prior VTE?: No VTE Risk Level:: Medical - moderate - high VTE Device Contraindication: Treatment Not Indicated VTE Drug Contraindication: N/A - Med Ordered
[2021-12-30 07:22] LABS: Troponin-I High Sensitivity 34.1 ng/L (<3.5-35.0)
--- NOTE | 2021-12-30 08:09 | PC.NURSE ---
Pt received from main ER, just moved over to the overflow unit: PT AOX4 and offers generalized pain complaint. Heart sounds normal and lungs diminished. Low air flow, but pt remains on RA. Pt abd soft and non-tender. R BLK amputation noted. Pt able to transfer from wheelchair to bed by self. Pt able to use urinal independently.
[2021-12-30 08:31] LABS: Glucose, Whole Blood 221 mg/dL (60-115)
[2021-12-30] MEDS: Insulin Lispro 100 UNIT/ML 3 ML VIAL SUBCUT ×2 (09:16→18:19)
--- NOTE | 2021-12-30 10:18 | PM.CNCAR ---
History of Present Illness History of Present Illness Date of Service: 12/30/21 Requesting physician: Ronald Mccullough Chief complaint: decompensated congestive heart failure Narrative: I was requested to see Dominik in cardiology consultation today for decompensated systolic heart failure. 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 He gets his medications through visiting nurses. He is a poor historian. Not sure if he understands his underlying cardiac issues. He says he takes all his medications, came to the hospital because he had no electricity in his building and he was cold but he also developed significant shortness of breath. On admission he was noted to have significantly elevated BMP in the 6800 range, much higher than his prior decompensations. He says he has been taking his medications as given, however I am not sure if this is completely true. In the morning he takes his medications given by [facility] not sure if he takes his night medications. He was started on Lasix 40 mg IV b.i.d. and has had about a L of negative balance. Despite that he says he continues to be short of breath however is more focused on other things such as his general living condition as well as his wound on his left foot. He denies any fever or chills. His renal function stable. He is tachycardic with PVCs. He denies any chest pain or palpitations at current time. He is minimally functional at home. Not able to get much other history from him. Review of Systems Constitutional: Constitutional: Reports fatigue and Reports lethargy Cardiovascular: Cardiovascular: Denies lightheadedness, Denies Loss of Consciousness, Denies palpitations, Reports dyspnea and Reports orthopnea Respiratory: Respiratory: Reports no additional respiratory complaints and Reports dyspnea Gastrointestinal: Gastrointestinal: Reports no additional gastrointestinal complaints Genitourinary: Genitourinary: Reports no additional male genitourinary complaints Musculoskeletal: Musculoskeletal: Reports no additional musculoskeletal complaints Integumentary/Breasts: Skin/Breast: Reports wounds Neurologic: Reports system reviewed and no additional complaints, except as documented Psychiatric: Psychiatric: Reports no additional psychiatric complaints Endocrine: Endocrine: Reports fatigue and Denies palpitations PMFSH Past Medical History Medical History Abscess or cellulitis of foot Acute on chronic anemia Acute on chronic combined systolic and diastolic congestive heart failure Acute respiratory failure with hypoxia Asthma Bipolar 1 disorder BPH (benign prostatic hyperplasia) Cholelithiasis Closed wedge compression fracture of T9 vertebra COPD (chronic obstructive pulmonary disease) Diabetes mellitus Diabetes mellitus, type 2 GERD (gastroesophageal reflux disease) Hyperlipidemia Ischemic cardiomyopathy Lymphadenopathy Opiate abuse, continuous Peripheral arterial disease Peripheral neuropathy Substance abuse Tracheomalacia, acquired Family History Family History Father Chronic mental illness Hypertension Asthma Stroke Mother Asthma Diabetes Coronary artery disease Surgical History Surgical History History of amputation History of laminectomy History of transurethral resection of prostate Hx of BKA Social History Social History Household Members: None Housing: Apartment Housing Other:: IN A LITTLE ROOM Do you presently have visiting nurse or other home services: Yes Alcohol intake: never Patient Tobacco Use Status: Never used Tobacco Second Hand Smoke Exposure: No Substance Use Type: Marijuana Advance Directives: Yes Advance Directives on File: Yes Advance Directives Date on File: 11/24/20 service: No Current occupational status: disabled Meds Allergies Allergy/AdvReac Type Severity Reaction Status Date / Time ertapenem Allergy Intermediate Hives Verified 07/20/21 01:06 vancomycin [VANCOMYCIN] Allergy Intermediate HIVES Verified 07/20/21 01:06 Chocolate Allergy Unknown Rash Verified 07/20/21 01:06 ciprofloxacin [From CIPRO] Allergy Unknown SWELLING Verified 07/20/21 01:06 hydrocortisone [Cipro HC] Allergy Unknown Unknown Verified 07/20/21 01:06 sulfamethoxazole Allergy Unknown rash Verified 07/20/21 01:06 [From BACTRIM] trimethoprim [From BACTRIM] Allergy Unknown rash Verified 07/20/21 01:06 turkey [TURKEY] Allergy Unknown RASH Verified 07/20/21 01:06 Active Medications: Current Medications Acetaminophen (Acetaminophen 325 Mg Tablet) 650 mg PO Q6H PRN PRN Reason: Pain, Mild (Pain Scale 1-3) Albuterol Sulfate (Albuterol Sulfate (0.083%) 2.5 Mg/3 Ml Vial.Neb) 2.5 mg INHALE Q4H PRN PRN Reason: Shortness Of Breath Or Wheezing Aspirin (Aspirin Enteric Coated 81 Mg Tablet.Dr) 81 mg PO DAILY [facility] Carvedilol (Carvedilol 6.25 Mg Tablet) 6.25 mg PO BID [facility]; Protocol Clopidogrel Bisulfate (Clopidogrel Bisulfate 75 Mg Tablet) 75 mg PO DAILY [facility] Dextrose (Dextrose 50 % 25 Gm/50 Ml Syringe) 25 gm IVPUSH Q15M PRN; Protocol PRN Reason: per Hypoglycemia Standing Ord. Docusate Sodium (Docusate Sodium 100 Mg Capsule) 100 mg PO DAILY PRN PRN Reason: Constipation Enoxaparin Sodium (Enoxaparin Sodium 40 Mg/0.4 Ml Syringe) 40 mg SUBCUT Q24H [facility] Last Admin: 12/30/21 08:38 Dose: Not Given Documented by: Fluticasone Propionate (Fluticasone Propionate Nasal 16 Gm Gove) 1 spray NOSTRIL-B DAILY [facility] Fluticasone/Vilanterol (Fluticasone/Vilanterol 200/25 Blst.W.Dev) 1 puff INHALE RDAILY [facility] Gabapentin (Gabapentin 100 Mg Capsule) 200 mg PO TID [facility] Glucose (Glucose Gel 15 Gm Gel..Gram.) 15 gm PO Q15M PRN; Protocol PRN Reason: per Hypoglycemia Standing Ord. Hydromorphone HCl (Hydromorphone Hcl 0.5 Mg/0.5 Ml Syringe) 0.5 mg IVPUSH Q4H PRN; Protocol PRN Reason: Breakthrough Pain Last Admin: 12/30/21 05:52 Dose: 0.5 mg Documented by: Daptomycin 504.392 mg/ Sodium (Chloride) 60.0878 mls @ 100 mls/hr IV Q24H [facility] Piperacillin Sod/Tazobactam (Sod 3.375 gm/ Sodium Chloride) 50 mls @ 100 mls/hr IV Q6H [facility] Furosemide 200 mg/ Sodium (Chloride) 100 mls @ 2.5 mls/hr IVCONT .Q24H [facility] Insulin Glargine (Insulin Glargine,Hum.Rec.Anlog 100 Unit/Ml 10 Ml Vial) 12 unit SUBCUT BEDTIME [facility] Insulin Human Lispro (Insulin Lispro 100 Unit/Ml 3 Ml Vial) 0 unit SUBCUT QIDACHS [facility]; Protocol Last Admin: 12/30/21 09:16 Dose: 4 unit Documented by: Loratadine (Loratadine 10 Mg Tablet) 10 mg PO DAILY [facility] Melatonin (Melatonin 3 Mg Tablet) 6 mg PO BEDTIME PRN PRN Reason: Insomnia Methadone HCl (Methadone Hcl 20 Mg/2 Ml Oral.Conc) 50 mg PO QAM [facility] Montelukast Sodium (Montelukast Sodium 10 Mg Tablet) 10 mg PO BEDTIME [facility] Sacubitril/Valsartan (Sacubitril/Valsartan 1 Tab Tablet) 1 tab PO BID [facility]; Protocol Sodium Chloride (0.9 % Sodium Chloride Flush 3 Ml Syringe) [facility] Last Admin: 12/30/21 07:22 Dose: Not Given Documented by: Spironolactone (Spironolactone 25 Mg Tablet) 25 mg PO DAILY [facility]; Protocol Tamsulosin HCl (Tamsulosin Hcl 0.4 Mg Capsule) 0.4 mg PO DAILY@1730 [facility] Home Medications Medication Instructions Recorded Confirmed Last Taken Type FreeStyle Lite Strips 08/12/20 02/13/21 Unknown History albuterol sulfate 2.5 mg INHALATION Q4H PRN 08/12/20 12/30/21 Unknown History albuterol sulfate 90 mcg/actuation 2 puff INHALATION Q4H PRN 08/12/20 12/30/21 Unknown History aerosol inhaler blood-glucose meter (FreeStyle 08/12/20 02/13/21 Unknown History [place] Lite) cane 08/12/20 02/13/21 Unknown History lancets 08/12/20 02/13/21 Unknown History methadone 10 mg/mL oral concentrate 50 mg PO QAM 08/12/20 12/30/21 01/02/21 History pen needle, diabetic 08/12/20 02/13/21 Unknown History aspirin 81 mg tablet,delayed 81 mg PO DAILY 08/14/20 12/30/21 Unknown History release atorvastatin 20 mg tablet 20 mg PO BEDTIME 08/14/20 12/30/21 Unknown History carvedilol 6.25 mg tablet 6.25 mg PO BID 08/14/20 12/30/21 Unknown History cetirizine 10 mg tablet 10 mg PO DAILY 08/14/20 12/30/21 Unknown History fluticasone propionate 50 1 spray INTRANASAL DAILY 08/14/20 12/30/21 Unknown History mcg/actuation nasal spray,suspension (Flonase Allergy Relief) gabapentin 100 mg capsule 200 mg PO TID 08/14/20 12/30/21 Unknown History insulin glargine 100 unit/mL 12 unit SUBCUT QPM 08/14/20 12/30/21 Unknown History subcutaneous solution (Lantus U-100 Insulin) montelukast 10 mg tablet 10 mg PO BEDTIME 08/14/20 12/30/21 Unknown History spironolactone 25 mg tablet 12.5 mg PO DAILY 08/14/20 12/30/21 Unknown History tamsulosin 0.4 mg capsule 0.4 mg PO DAILY 08/14/20 12/30/21 Unknown History clopidogrel 75 mg tablet 1 tab PO QAM 10/08/21 12/30/21 Unknown History famotidine 20 mg tablet 20 mg PO BID 12/30/21 12/30/21 Unknown History fluticasone 500 mcg-salmeterol 50 1 inh INHALATION BID 12/30/21 12/30/21 Unknown History mcg/dose blistr powdr for inhalation (Advair Diskus) insulin aspart U-100 100 unit/mL 5 unit SUBCUT TID 12/30/21 12/30/21 Unknown History (3 mL) subcutaneous pen (Novolog Flexpen U-100 Insulin aspart) lidocaine 5 % topical patch 1 patch TOPICAL DAILY 12/30/21 12/30/21 Unknown History losartan 25 mg tablet 1 tab PO QAM 12/30/21 12/30/21 Unknown History zinc 50 mg tablet 50 mg PO DAILY 12/30/21 12/30/21 Unknown History Physical Exam Vital Signs: Vital Signs: Last Vital Signs Temp 96.2 F L 12/30/21 10:10 Pulse 100 12/30/21 10:10 Resp 16 12/30/21 10:10 BP 139/91 H 12/30/21 10:10 Pulse Ox 97 12/30/21 10:10 BMI result Body Mass Index 22.4 Const: General: cooperative, comfortable, no acute distress, alert, awake, ill appearing and poor hygiene Nutritional Appearance: average body habitus Orientation/consciousness: patient oriented x3 HENMT: Head: Yes normocephalic and Yes atraumatic Neck: Neck: Yes trachea midline and Yes supple Resp: Effort & Inspection: decreased respiratory effort Auscultation: diminished lung sounds Cardio: Palpation: abnormal PMI displaced PMI Rate: regular rate and tachycardic Rhythm: abnormal rhythm with ectopic beats Heart sounds: S1 normal heart sound present, S2 normal heart sound present, no click and Gallop heart sound present GI: Auscultation: normal bowel sounds Neuro: General: patient oriented x3 and no focal motor deficits Objective Labs and Meds Result diagrams: 12/30/21 02:35 12/30/21 02:35 Lab results: Laboratory Results - last 24 hr 12/30/21 12/30/21 12/30/21 02:35 02:35 02:35 WBC 10.9 H RBC 5.35 D Hgb 14.0 D Hct 45.3 D MCV 84.7 MCH 26.2 L MCHC 30.9 L RDW 17.5 H Plt Count 344 D MPV 9.3 L Immature Gran % (Auto) 0.4 Neut % (Auto) 76.1 H Lymph % (Auto) 12.6 L [place] % (Auto) 10.6 Eos % (Auto) 0.1 Baso % (Auto) 0.2 Lymph # (Auto) 1.4 [place] # (Auto) 1.2 Eos # (Auto) 0.0 Baso # (Auto) 0.0 Abs Immat Gran (auto) 0.04 H Absolute Neuts (auto) 8.3 Absolute Nucleated RBC 0.000 Nucleated RBC % (auto) 0.0 VBG pH VBG pCO2 VBG pO2 VBG HCO3 VBG O2 Saturation VBG Base Excess Sodium 131 L Potassium 4.7 Chloride 93 L Carbon Dioxide 26 Anion Gap 17 BUN 13 Creatinine 0.93 Estim Creat Clear Calc 81.9 Estimated GFR > 60 POC Glucose Random Glucose 205 H D Calcium 9.7 Total Bilirubin 1.0 AST 33 D ALT 97 H Alkaline Phosphatase 134 H D Troponin I High Sens 25.5 D B-Natriuretic Peptide 6883 H Total Protein 7.7 Albumin 3.6 COVID-19 ([facility]) COVID-19 Clin Com 12/30/21 12/30/21 12/30/21 02:37 04:09 06:57 WBC RBC Hgb Hct MCV MCH MCHC RDW Plt Count MPV Immature Gran % (Auto) Neut % (Auto) Lymph % (Auto) [place] % (Auto) Eos % (Auto) Baso % (Auto) Lymph # (Auto) [place] # (Auto) Eos # (Auto) Baso # (Auto) Abs Immat Gran (auto) Absolute Neuts (auto) Absolute Nucleated RBC Nucleated RBC % (auto) VBG pH 7.33 VBG pCO2 55 VBG pO2 34 VBG HCO3 29 H VBG O2 Saturation 43.0 VBG Base Excess 1.9 Sodium Potassium Chloride Carbon Dioxide Anion Gap BUN Creatinine Estim Creat Clear Calc Estimated GFR POC Glucose Random Glucose Calcium Total Bilirubin AST ALT Alkaline Phosphatase Troponin I High Sens 34.1 B-Natriuretic Peptide Total Protein Albumin COVID-19 ([facility]ILA) Negative COVID-19 Clin Com See Note 12/30/21 08:23 WBC RBC Hgb Hct MCV MCH MCHC RDW Plt Count MPV Immature Gran % (Auto) Neut % (Auto) Lymph % (Auto) [place] % (Auto) Eos % (Auto) Baso % (Auto) Lymph # (Auto) [place] # (Auto) Eos # (Auto) Baso # (Auto) Abs Immat Gran (auto) Absolute Neuts (auto) Absolute Nucleated RBC Nucleated RBC % (auto) VBG pH VBG pCO2 VBG pO2 VBG HCO3 VBG O2 Saturation VBG Base Excess Sodium Potassium Chloride Carbon Dioxide Anion Gap BUN Creatinine Estim Creat Clear Calc Estimated GFR POC Glucose 221 H Random Glucose Calcium Total Bilirubin AST ALT Alkaline Phosphatase Troponin I High Sens B-Natriuretic Peptide Total Protein Albumin COVID-19 ([facility]) COVID-19 Clin Com Imaging Radiologist's impression: Impressions Chest X-Ray 12/30/21 03:25 IMPRESSION: Stable portable radiographic appearance of the chest demonstrating cardiogenic pulmonary edema. Assessment and Plan (1) CHF exacerbation: Status: Acute Acute decompensation of systolic heart failure in this middle-aged man with poor social support portends a poor overall prognosis. Not sure as to if he is getting all his medications. He has not seen physician since his last discharge physically. He is not on Entresto therapy as planned on discharge last time. He needs further diuresis and more aggressive diuresis. Switch to Lasix drip 5 mg an hour. Strict intake and output chart needs to be pursued. Continue to trend electrolytes and replace as needed. Switch losartan to Entresto therapy 24/26 mg b.i.d.. Also increase Aldactone to 25 mg daily. Follow renal function closely. Once his better diuresed, will up titrate his carvedilol therapy. He needs more intense outpatient follow-up and therapy to avoid recurrent hospitalization. This was discussed with him, however seems to not understand the gravity of the situation. He has a solar sales manager at [facility] in I advised him importance of follow-up as outpatient. Will continue to follow with you Procedures Date of Service Date of Service: 12/30/21
[2021-12-30] MEDS: Loratadine 10 MG TABLET PO (10:21)
[2021-12-30] MEDS: Clopidogrel Bisulfate 75 MG TABLET PO (10:21)
[2021-12-30] MEDS: Gabapentin 100 MG CAPSULE 200 MG PO ×3 (10:21→21:15)
[2021-12-30] MEDS: carvediloL 6.25 MG TABLET PO ×2 (10:21→21:15)
[2021-12-30] MEDS: Aspirin Enteric Coated 81 MG TABLET.DR PO (10:21)
--- NOTE | 2021-12-30 10:39 | HE.PHANOTE ---
RE Daptomycin Dosed @ 8mg/kg due to suspected Osteo. Dr Roblero aware. Consider decreasing dose to 4-6mg/kg if osteo ruled out. Thanks Shantal Christianson
[2021-12-30 10:47] LABS: C Reactive Protein 1.63 mg/dL (< or = 0.50)
[2021-12-30 11:17] LABS: Erythrocyte Sedimentation Rate 23 MM/HR (0-15)
[2021-12-30 11:42] LABS: Glucose, Whole Blood 150 mg/dL (60-115)
[2021-12-30] MEDS: Piperacillin Sodium/Tazobactam 3.375 GM in 0.9 % Sodium Chloride 50 ML IV ×2 (11:50→21:16)
--- NOTE | 2021-12-30 12:12 | PC.NURSE ---
As per Dr Delcid, pt followed test dose protocol for 1st dose IV zosyn r/t ax to ertapenem: 10% of dose given, now pt will be observed for 1 hour, and if no s/sx of allergic reaction, then will administer rest of IV ABT. Vital during initial dosing WNL, and pt denies any s/sx of allergic rxn. RN will continue to monitor.
--- NOTE | 2021-12-30 13:21 | PC.NURSE ---
60 MINUTES HAS ELAPSED SINCE INITIAL TEST DOSE OF ZOSYN. PT HAS HAD NO REACTION NOTED. NO RASH OR URTICARIA NOTED. AIRWAY PATENT. SPEAKING IN FULL CLEAR SENTENCES. MANAGING SECRETIONS. NO DISTRESS
[2021-12-30] MEDS: Furosemide 200 MG in 0.9 % Sodium Chloride 80 ML IVCONT (14:15)
[2021-12-30] MEDS: DAPTOmycin 500 MG in 0.9 % Sodium Chloride 50 ML 100 MG IV (14:32)
--- NOTE | 2021-12-30 15:02 | MHC.CM.PN ---
Attempted to meet with patient in regards to discharge planning. Patient currently sleeping. No family present. Will attempt to meet again. Continue to monitor for d/c needs.
--- NOTE | 2021-12-30 15:21 | PM.EVENT ---
Event Note Date of Service: 12/30/21 Event Note: Day hospitalist update S: Still dyspneic No chest pain C/o L great toe wound O: VS- T 98.4, P 113, R 18, BP 139/76, SaO2 100 on RA gen- NAD lungs- diminished air entry at bases CV- tachycardic, no murmurs abd- soft/NT ext- s/p R BKA derm- L great toe with ulcer over IP joint with proximal erythema; no purulent drainage A/P: hospital d#1 50yo M with ischemic cardiomyopathy # acute/chronic HFrEF - Cardiology consulted - furosemide gtt, monitor I/O + BNP + lytes - change losartan to Entresto, increase spironolactone - continue carvedilol, titrate up - add empagliflozin as outpt # HLD # PVD - continue DAPT, statin # diabetic foot ulcer with cellulitis - ESR, CRP, blood cultures x2, X-ray to r/o osteomyelitis [may require MRI], ID consult - given ABX allergies, will give daptomycin and pip/rodrigo. Was on cephalexin at home # COPD - prn nebs, continue ICS/LABA # DM2 - basal/bolus insulin # neuropathy - continue gabapentin # BPH - continue tamsulosin # opioid use disorder - continue methadone # VTE ppx - LMWH
--- NOTE | 2021-12-30 16:35 | PC.NURSE ---
Pt noted to have 8 beats of v-tach, while sleeping. Rn to bedside immediately. Pt awoke, and pt denies any s/sx of CP, SOB. MD Delcid made aware, no new orders received. RN will continue to monitor.
[2021-12-30 18:08] LABS: Glucose, Whole Blood 158 mg/dL (60-115)
[2021-12-30] MEDS: Tamsulosin HCL 0.4 MG CAPSULE PO (18:21)
--- NOTE | 2021-12-30 19:03 | PC.NURSE ---
Assumed care of pt at 1900. Pt resting in bed, in NAD, attached to door liner helper. Call light at hand. Plan to transfer to inpatient bed pending RN report
--- NOTE | 2021-12-30 19:51 | PC.NURSE ---
Report called to inpayton RN. Pt to floor via hospital bed, sent in stable condition w/ all belongings, attached to portable tool repairer. Lasix gtt infusing
[2021-12-30 20:33] LABS: Glucose, Whole Blood 113 mg/dL (60-115)
[2021-12-30] MEDS: Montelukast Sodium 10 MG TABLET PO (21:15)
[2021-12-30] MEDS: Insulin Glargine,Hum.rec.anlog 100 UNIT/ML 10 ML VIAL 12 UNIT SUBCUT (21:31)
[2021-12-30] MEDS: Sacubitril/Valsartan 24/26 1 TAB TABLET PO (21:43)
[2021-12-31] VITALS (12 sets, daily range): BP systolic 90–112; BP diastolic 52–63; PULSE 60–71; RESP 16–18; TEMP 36.1–37.2; O2SAT 92–99; BMI 25.4
[2021-12-31] MEDS: Piperacillin Sodium/Tazobactam 3.375 GM in 0.9 % Sodium Chloride 50 ML IV ×4 (02:25→20:59)
[2021-12-31] MEDS: HYDROmorphone HCl 0.5 MG/0.5 ML SYRINGE IVPUSH (02:28)
[2021-12-31] MEDS: Enoxaparin Sodium 40 MG/0.4 ML SYRINGE SUBCUT (05:45)
[2021-12-31 06:34] LABS: MANUAL DIFF FLAG NO
[2021-12-31 06:38] LABS: Basophils Percent Auto 0.4 % (0-2); Eosinophils Absolute Auto 0.2 X10*3/uL (0.0-0.4); Eosinophils Percent Auto 1.7 % (0-4); Hemoglobin 14.1 g/dl (14.0-18.0); Imm Gran Abs Auto 0.03 X10*3/uL (0.00-0.03); Imm Gran Pct Auto 0.3 % (0.0-0.4); Lymphocytes Absolute Auto 1.3 X10*3/uL (1.2-4.9); Lymphocytes Percent Auto 14.7 % (20-40); Mean Corpuscular HGB Conc 30.7 g/dl (31.0-36.0); Mean Corpuscular Hemoglobin 25.8 pg (27.0-33.0); Mean Corpuscular Volume 84.1 fL (80.0-98.0); Mean Platelet Volume 10.1 fL (9.4-12.4); Neutrophils Absolute Auto 6.5 x10*3/uL (2.0-8.3); Neutrophils Percent Auto 71.9 % (45-73); Platelet Count 284 X10*3/uL (160-400); Red Blood Count 5.47 X10*6/uL (4.60-5.80)
[2021-12-31 07:00] LABS: B Type Natriuretic Peptide 3018 pg/mL (<100)
[2021-12-31 07:20] LABS: Estimated Average Glucose 143 mg/dL; Hemoglobin A1c % 6.6 %
[2021-12-31 07:21] LABS: Magnesium 1.4 mg/dL (1.6-2.6)
[2021-12-31 07:22] LABS: Alanine Aminotransferase 51 U/L (0-40); Albumin Level 2.7 g/dL (3.5-5.0); Alkaline Phosphatase 104 U/L (39-117); Aspartate Amino Transferase 22 U/L (5-37); Bilirubin Direct 0.5 mg/dL (0.0-0.5); Total Protein 5.8 g/dL (6.5-8.0)
[2021-12-31 07:31] LABS: Anion Gap 16 (12-20); Blood Urea Nitrogen 21 mg/dL (9-16); Calcium 8.9 mg/dL (8.4-10.2); Carbon Dioxide 32 mmol/L (22-29); Chloride 90 mmol/L (96-108); Creatinine Clr Calc Pharmacy 59.3; Estimated Glomerular Filt Rate 58; Glucose Random 167 mg/dL (60-115); Potassium 3.7 mmol/L (3.3-5.1); Sodium 133 mmol/L (135-145)
[2021-12-31 07:51] LABS: Glucose, Whole Blood 208 mg/dL (60-115)
[2021-12-31] MEDS: Fluticasone/Vilanterol 200/25 BLST.W.DEV 1 PUFF INHALE (07:54)
[2021-12-31] MEDS: Loratadine 10 MG TABLET PO (08:20)
[2021-12-31] MEDS: Sacubitril/Valsartan 24/26 1 TAB TABLET PO (08:20)
[2021-12-31] MEDS: Aspirin Enteric Coated 81 MG TABLET.DR PO (08:20)
[2021-12-31] MEDS: Clopidogrel Bisulfate 75 MG TABLET PO (08:20)
[2021-12-31] MEDS: methADONE HCl 20 MG/2 ML ORAL.CONC 50 MG PO (08:21)
[2021-12-31] MEDS: carvediloL 6.25 MG TABLET PO ×2 (08:21→20:59)
[2021-12-31] MEDS: Spironolactone 25 MG TABLET PO (08:21)
[2021-12-31] MEDS: Gabapentin 100 MG CAPSULE 200 MG PO ×2 (08:21→20:59)
[2021-12-31] MEDS: Insulin Lispro 100 UNIT/ML 3 ML VIAL SUBCUT ×3 (08:24→21:10)
[2021-12-31] MEDS: 0.9 % Sodium Chloride Flush 3 ML SYRINGE IVFLUSH ×2 (08:24→17:01)
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
--- NOTE | 2021-12-31 09:45 | P.CDIC_ITS ---
CDI Concurrent Query Documentation Clarification: PHYSICIAN'S DOCUMENTATION REQUEST Date of Query: 12/31/21 0946 Patient Name: Dominik Hawk Admit Date: 12/30/21 Dear Doctor, A review of the medical record indicates additional documentation may be indicated. Please review below and update the documentation accordingly. Clinical Indicators: Risk Factors/Clinical Indicators/Treatments Per MD progress note 12/30/21: L great toe with ulcer over IP joint with proximal erythema; no purulent drainage Wound consult pending Per H&P: diabetic foot ulcer Based on the above, could you please provide, in the Progress Notes, further information regarding the ulcer/wound: * For a non-pressure ulcer, please indicate the depth/severity: * Limited to the breakdown of skin * With fat layer exposed * With necrosis of muscle * With necrosis of bone * Other * Unable to determine *Source: National Pressure Ulcer Advisory Panel (NPUAP) Use of terms such as suspected, likely, concern for, or probable (associated with a specific diagnosis that is being evaluated, monitored, or treated as if it exists) are acceptable and can be coded in the inpatient setting, when documented at the time of discharge. Thank you, Patricia Goodman RN Extension: [phone] Please use your independent medical judgment in providing your response. THIS QUERY IS PART OF THE PERMANENT MEDICAL RECORD Provider Response: Other Other Diagnosis: DM foot ulcer with exposed bone
--- NOTE | 2021-12-31 10:42 | P.PNCA_ITS ---
Subjective Subjective Date of Service: 12/31/21 Principal diagnosis: Congestive heart failure Interval history: Patient says he feels better today compared to yesterday as he got his methadone on time. He continues to have pain in his left foot. He says his breathing is better. He has been diuresing well although the output has not been accurate. Denies orthopnea PND. Tolerating change in his medications with blood pressure optimal at 112 systolic done manually this morning Review of Systems Constitutional: Reports fatigue Eyes: Reports no additional eye complaints Cardiovascular: Denies chest pain, Denies palpitations and Reports dyspnea Respiratory: Reports no additional respiratory complaints and Reports dyspnea Gastrointestinal: Reports no additional gastrointestinal complaints Genitourinary: Reports no additional male genitourinary complaints Musculoskeletal: Reports other (Left foot pain) Endocrine: Reports no additional endocrine complaints, Reports fatigue and Denies palpitations Hematologic/Lymphatic: Reports no additional hematologic/lymphatic complaints Physical Exam Vital Signs: Last Vital Signs Temp 97.3 F 12/31/21 07:32 Pulse 69 12/31/21 07:32 Resp 18 12/31/21 07:55 BP 112/62 12/31/21 10:24 Pulse Ox 97 12/31/21 07:32 BMI result Body Mass Index 25.4 Objective Labs and Meds Result diagrams: 12/31/21 06:26 12/31/21 06:26 Lab results: Laboratory Results - last 24 hr 12/30/21 12/30/21 12/30/21 10:24 10:24 11:38 WBC RBC Hgb Hct MCV MCH MCHC RDW Plt Count MPV Immature Gran % (Auto) Neut % (Auto) Lymph % (Auto) [place] % (Auto) Eos % (Auto) Baso % (Auto) Lymph # (Auto) [place] # (Auto) Eos # (Auto) Baso # (Auto) Abs Immat Gran (auto) Absolute Neuts (auto) Absolute Nucleated RBC Nucleated RBC % (auto) ESR 23 H Sodium Potassium Chloride Carbon Dioxide Anion Gap BUN Creatinine Estim Creat Clear Calc Estimated GFR POC Glucose 150 H Random Glucose Estimat Average Glucose Hemoglobin A1c % Calcium Magnesium Total Bilirubin Direct Bilirubin AST ALT Alkaline Phosphatase C-Reactive Protein 1.63 H B-Natriuretic Peptide Total Protein Albumin 12/30/21 12/30/21 12/31/21 18:02 20:26 06:26 WBC 9.0 RBC 5.47 Hgb 14.1 Hct 46.0 MCV 84.1 MCH 25.8 L MCHC 30.7 L RDW 17.0 H Plt Count 284 MPV 10.1 Immature Gran % (Auto) 0.3 Neut % (Auto) 71.9 Lymph % (Auto) 14.7 L [place] % (Auto) 11.0 Eos % (Auto) 1.7 Baso % (Auto) 0.4 Lymph # (Auto) 1.3 [place] # (Auto) 1.0 Eos # (Auto) 0.2 Baso # (Auto) 0.0 Abs Immat Gran (auto) 0.03 Absolute Neuts (auto) 6.5 Absolute Nucleated RBC 0.000 Nucleated RBC % (auto) 0.0 ESR Sodium Potassium Chloride Carbon Dioxide Anion Gap BUN Creatinine Estim Creat Clear Calc Estimated GFR POC Glucose 158 H 113 Random Glucose Estimat Average Glucose Hemoglobin A1c % Calcium Magnesium Total Bilirubin Direct Bilirubin AST ALT Alkaline Phosphatase C-Reactive Protein B-Natriuretic Peptide Total Protein Albumin 12/31/21 12/31/21 12/31/21 06:26 06:26 06:26 WBC RBC Hgb Hct MCV MCH MCHC RDW Plt Count MPV Immature Gran % (Auto) Neut % (Auto) Lymph % (Auto) [place] % (Auto) Eos % (Auto) Baso % (Auto) Lymph # (Auto) [place] # (Auto) Eos # (Auto) Baso # (Auto) Abs Immat Gran (auto) Absolute Neuts (auto) Absolute Nucleated RBC Nucleated RBC % (auto) ESR Sodium 133 L Potassium 3.7 D Chloride 90 L Carbon Dioxide 32 H Anion Gap 16 BUN 21 H D Creatinine 1.30 Estim Creat Clear Calc 59.3 Estimated GFR 58 POC Glucose Random Glucose 167 H Estimat Average Glucose 143 Hemoglobin A1c % 6.6 Calcium 8.9 D Magnesium 1.4 L* Total Bilirubin 1.0 Direct Bilirubin 0.5 AST 22 ALT 51 H Alkaline Phosphatase 104 D C-Reactive Protein B-Natriuretic Peptide Total Protein 5.8 L D Albumin 2.7 L D 12/31/21 12/31/21 06:26 07:34 WBC RBC Hgb Hct MCV MCH MCHC RDW Plt Count MPV Immature Gran % (Auto) Neut % (Auto) Lymph % (Auto) [place] % (Auto) Eos % (Auto) Baso % (Auto) Lymph # (Auto) [place] # (Auto) Eos # (Auto) Baso # (Auto) Abs Immat Gran (auto) Absolute Neuts (auto) Absolute Nucleated RBC Nucleated RBC % (auto) ESR Sodium Potassium Chloride Carbon Dioxide Anion Gap BUN Creatinine Estim Creat Clear Calc Estimated GFR POC Glucose 208 H Random Glucose Estimat Average Glucose Hemoglobin A1c % Calcium Magnesium Total Bilirubin Direct Bilirubin AST ALT Alkaline Phosphatase C-Reactive Protein B-Natriuretic Peptide 3018 H Total Protein Albumin Imaging Radiologist's impression: Impressions Foot X-Ray 12/30/21 10:02 IMPRESSION: Findings consistent with acute osteomyelitis of the left first toe as described. Progress Note: A&P Assessment and plan (1) CHF exacerbation: Status: Acute Assessment and Plan: Improving decompensated congestive heart failure. Continue current diuresis. Strict intake and output chart needs to be pursued. Please follow BMP and BNP tomorrow. Will hold off on carvedilol for now due to lower blood pressure. Continue Entresto Aldactone and current dose of carvedilol. Will continue to follow with the patient. Fall Risk Details Current Medications: Current Medications Acetaminophen (Acetaminophen 325 Mg Tablet) 650 mg PO Q6H PRN PRN Reason: Pain, Mild (Pain Scale 1-3) Albuterol Sulfate (Albuterol Sulfate (0.083%) 2.5 Mg/3 Ml Vial.Sami) 2.5 mg INHALE Q4H PRN PRN Reason: Shortness Of Breath Or Wheezing Aspirin (Aspirin Enteric Coated 81 Mg Tablet.) 81 mg PO DAILY COUNT INCLUDES THE [facility] Last Admin: 12/31/21 08:20 Dose: 81 mg Documented by: Carvedilol (Carvedilol 6.25 Mg Tablet) 6.25 mg PO BID COUNT INCLUDES THE [facility]; Protocol Last Admin: 12/31/21 08:21 Dose: 6.25 mg Documented by: Clopidogrel Bisulfate (Clopidogrel Bisulfate 75 Mg Tablet) 75 mg PO DAILY COUNT INCLUDES THE [facility] Last Admin: 12/31/21 08:20 Dose: 75 mg Documented by: Dextrose (Dextrose 50 % 25 Gm/50 Ml Syringe) 25 gm IVPUSH Q15M PRN; Protocol PRN Reason: per Hypoglycemia Standing Ord. Docusate Sodium (Docusate Sodium 100 Mg Capsule) 100 mg PO DAILY PRN PRN Reason: Constipation Enoxaparin Sodium (Enoxaparin Sodium 40 Mg/0.4 Ml Syringe) 40 mg SUBCUT Q24H COUNT INCLUDES THE [facility] Last Admin: 12/31/21 05:45 Dose: 40 mg Documented by: Fluticasone Propionate (Fluticasone Propionate Nasal 16 Gm [place]) 1 spray NO STRIL-B DAILY COUNT INCLUDES THE [facility] Last Admin: 12/31/21 08:31 Dose: Not Given Documented by: Fluticasone/Vilanterol (Fluticasone/Vilanterol 200/25 Blst.W.Dev) 1 puff INHALE RDAILY COUNT INCLUDES THE [facility] Last Admin: 12/31/21 07:54 Dose: 1 puff Documented by: Gabapentin (Gabapentin 100 Mg Capsule) 200 mg PO TID COUNT INCLUDES THE [facility] Last Admin: 12/31/21 08:21 Dose: 200 mg Documented by: Glucose (Glucose Gel 15 Gm Gel..Gram.) 15 gm PO Q15M PRN; Protocol PRN Reason: per Hypoglycemia Standing Ord. Hydromorphone HCl (Hydromorphone Hcl 0.5 Mg/0.5 Ml Syringe) 0.5 mg IVPUSH Q4H PRN; Protocol PRN Reason: Breakthrough Pain Last Admin: 12/31/21 02:28 Dose: 0.5 mg Documented by: Furosemide 200 mg/ Sodium (Chloride) 100 mls @ 2.5 mls/hr IVCONT .Q24H COUNT INCLUDES THE [facility] Last Admin: 12/30/21 14:15 Dose: 5 mg/hr, 2.5 mls/hr Documented by: Daptomycin 500 mg/ Sodium (Chloride) 60 mls @ 100 mls/hr IV Q24H COUNT INCLUDES THE [facility] Last Infusion: 12/30/21 15:14 Dose: Infused Documented by: Piperacillin Sod/Tazobactam (Sod 3.375 gm/ Sodium Chloride) 50 mls @ 100 mls/hr IV Q6H COUNT INCLUDES THE [facility] Last Admin: 12/31/21 08:28 Dose: 100 mls/hr Documented by: Insulin Glargine (Insulin Glargine,Hum.Rec.Anlog 100 Unit/Ml 10 Ml Vial) 12 unit SUBCUT BEDTIME COUNT INCLUDES THE [facility] Last Admin: 12/30/21 21:31 Dose: 12 unit Documented by: Insulin Human Lispro (Insulin Lispro 100 Unit/Ml 3 Ml Vial) 0 unit SUBCUT QIDACHS COUNT INCLUDES THE [facility]; Protocol Last Admin: 12/31/21 08:24 Dose: 4 unit Documented by: Loratadine (Loratadine 10 Mg Tablet) 10 mg PO DAILY COUNT INCLUDES THE [facility] Last Admin: 12/31/21 08:20 Dose: 10 mg Documented by: Melatonin (Melatonin 3 Mg Tablet) 6 mg PO BEDTIME PRN PRN Reason: Insomnia Methadone HCl (Methadone Hcl 20 Mg/2 Ml Oral.Conc) 50 mg PO DAILY COUNT INCLUDES THE [facility] Last Admin: 12/31/21 08:21 Dose: 50 mg Documented by: Montelukast Sodium (Montelukast Sodium 10 Mg Tablet) 10 mg PO BEDTIME COUNT INCLUDES THE [facility] Last Admin: 12/30/21 21:15 Dose: 10 mg Documented by: Sacubitril/Valsartan (Sacubitril/Valsartan 1 Tab Tablet) 1 tab PO BID COUNT INCLUDES THE [facility]; Protocol Last Admin: 12/31/21 08:20 Dose: 1 tab Documented by: Sodium Chloride (0.9 % Sodium Chloride Flush 3 Ml Syringe) 3 ml IVFLUSH QSHIFT COUNT INCLUDES THE [facility] Last Admin: 12/31/21 08:24 Dose: 3 ml Documented by: Spironolactone (Spironolactone 25 Mg Tablet) 25 mg PO DAILY COUNT INCLUDES THE [facility]; Protocol Last Admin: 12/31/21 08:21 Dose: 25 mg Documented by: Tamsulosin HCl (Tamsulosin Hcl 0.4 Mg Capsule) 0.4 mg PO DAILY@1730 COUNT INCLUDES THE [facility] Last Admin: 12/30/21 18:21 Dose: 0.4 mg Documented by: Time Spent With Patient Time: Total time spent is greater than 50% in coordination of care (as documented) at patient's floor/unit and/or counseling patient: Time with patient: 15 - 24 minutes Progress Note: Quality Stroke Does the patient have a stroke diagnosis?: No Procedures Date of Service Date of Service: 12/31/21
[2021-12-31] MEDS: Magnesium Sulfate/H2O 2 GM/50 ML PIGGYBACK IV (11:07)
--- NOTE | 2021-12-31 11:21 | MHC.CM.PN ---
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
[2021-12-31 11:28] LABS: Glucose, Whole Blood 85 mg/dL (60-115)
[2021-12-31] MEDS: DAPTOmycin 500 MG in 0.9 % Sodium Chloride 50 ML 100 MG IV (12:00)
[2021-12-31] MEDS: Furosemide 200 MG in 0.9 % Sodium Chloride 80 ML IVCONT (12:47)
--- NOTE | 2021-12-31 13:09 | P.PNIM_ITS ---
Subjective Subjective Date of Service: 12/31/21 Interval History: negative 2.06L thus far - ?reliable NSVT- 8 beats yesterday Mg low this AM Has not used heroin or cocaine in 1.5 yr no fever was dizzy/lightheaded with BP 92/52 Review of Systems Review of Systems: Yes all other systems are reviewed and are negative Physical Exam Vital Signs: Vital Signs: Last Vital Signs Temp 97.6 F 12/31/21 11:25 Pulse 60 12/31/21 11:25 Resp 18 12/31/21 11:25 BP 90/52 L 12/31/21 11:25 Pulse Ox 98 12/31/21 11:25 BMI result Body Mass Index 25.4 Gen: in no acute distress HEENT: sclera anicteric, moist mucus membranes Neck: supple Lungs: clear to auscultation bilaterally Heart: regular rate and rhythm, no murmurs Abd: soft, non-tender, non-distended Ext: s/p R BKA, 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 Skin: warm/well-perfused Neuro: alert and oriented x3, no focal findings Psych: appropriate affect Objective Data Active Medications Acetaminophen (Acetaminophen 325 Mg Tablet) 650 mg PO Q6H PRN PRN Reason: Pain, Mild (Pain Scale 1-3) Albuterol Sulfate (Albuterol Sulfate (0.083%) 2.5 Mg/3 Ml Vial.Neb) 2.5 mg INHALE Q4H PRN PRN Reason: Shortness Of Breath Or Wheezing Aspirin (Aspirin Enteric Coated 81 Mg Tablet.) 81 mg PO DAILY [facility] Last Admin: 12/31/21 08:20 Dose: 81 mg Documented by: TY Carvedilol (Carvedilol 6.25 Mg Tablet) 6.25 mg PO BID [facility]; Protocol Last Admin: 12/31/21 08:21 Dose: 6.25 mg Documented by: TY Clopidogrel Bisulfate (Clopidogrel Bisulfate 75 Mg Tablet) 75 mg PO DAILY [facility] Last Admin: 12/31/21 08:20 Dose: 75 mg Documented by: TY Dextrose (Dextrose 50 % 25 Gm/50 Ml Syringe) 25 gm IVPUSH Q15M PRN; Protocol PRN Reason: per Hypoglycemia Standing Ord. Docusate Sodium (Docusate Sodium 100 Mg Capsule) 100 mg PO DAILY PRN PRN Reason: Constipation Enoxaparin Sodium (Enoxaparin Sodium 40 Mg/0.4 Ml Syringe) 40 mg SUBCUT Q24H S Last Admin: 12/31/21 05:45 Dose: 40 mg Documented by: MARIAMA Fluticasone Propionate (Fluticasone Propionate Nasal 16 Gm [place]) 1 spray NOSTRIL-B DAILY [facility] Last Admin: 12/31/21 08:31 Dose: Not Given Documented by: TY Non-Admin Reason: Patient Refused Fluticasone/Vilanterol (Fluticasone/Vilanterol 200/25 Blst.W.Dev) 1 puff INHALE RDAILY [facility] Last Admin: 12/31/21 07:54 Dose: 1 puff Documented by: ROSANNE Gabapentin (Gabapentin 100 Mg Capsule) 200 mg PO TID [facility] Last Admin: 12/31/21 08:21 Dose: 200 mg Documented by: TY Glucose (Glucose Gel 15 Gm Gel..Gram.) 15 gm PO Q15M PRN; Protocol PRN Reason: per Hypoglycemia Standing Ord. Hydromorphone HCl (Hydromorphone Hcl 0.5 Mg/0.5 Ml Syringe) 0.5 mg IVPUSH Q4H PRN; Protocol PRN Reason: Breakthrough Pain Last Admin: 12/31/21 02:28 Dose: 0.5 mg Documented by: MARIAMA Furosemide 200 mg/ Sodium (Chloride) 100 mls @ 2.5 mls/hr IVCONT .Q24H [facility] Last Infusion: 12/31/21 12:52 Dose: 0 mg/hr, 0 mls/hr Documented by: TY Daptomycin 500 mg/ Sodium (Chloride) 60 mls @ 100 mls/hr IV Q24H [facility] Last Admin: 12/31/21 12:00 Dose: 100 mls/hr Documented by: TY Piperacillin Sod/Tazobactam (Sod 3.375 gm/ Sodium Chloride) 50 mls @ 100 mls/hr IV Q6H [facility] Last Infusion: 12/31/21 10:54 Dose: 0 mls/hr Documented by: TY Insulin Glargine (Insulin Glargine,Hum.Rec.Anlog 100 Unit/Ml 10 Ml Vial) 12 unit SUBCUT BEDTIME [facility] Last Admin: 12/30/21 21:31 Dose: 12 unit Documented by: RICKY Insulin Human Lispro (Insulin Lispro 100 Unit/Ml 3 Ml Vial) 0 unit SUBCUT QIDACHS [facility]; Protocol Last Admin: 12/31/21 12:09 Dose: Not Given Documented by: TY Non-Admin Reason: No Insulin Coverage Loratadine (Loratadine 10 Mg Tablet) 10 mg PO DAILY [facility] Last Admin: 12/31/21 08:20 Dose: 10 mg Documented by: TY Melatonin (Melatonin 3 Mg Tablet) 6 mg PO BEDTIME PRN PRN Reason: Insomnia Methadone HCl (Methadone Hcl 20 Mg/2 Ml Oral.Conc) 50 mg PO DAILY [facility] Last Admin: 12/31/21 08:21 Dose: 50 mg Documented by: TY Montelukast Sodium (Montelukast Sodium 10 Mg Tablet) 10 mg PO BEDTIME [facility] Last Admin: 12/30/21 21:15 Dose: 10 mg Documented by: RICKY Sacubitril/Valsartan (Sacubitril/Valsartan 1 Tab Tablet) 1 tab PO BID [facility]; Protocol Last Admin: 12/31/21 08:20 Dose: 1 tab Documented by: TY Sodium Chloride (0.9 % Sodium Chloride Flush 3 Ml Syringe) 3 ml IVFLUSH QSHIFT [facility] Last Admin: 12/31/21 08:24 Dose: 3 ml Documented by: TY Spironolactone (Spironolactone 25 Mg Tablet) 25 mg PO DAILY [facility]; Protocol Last Admin: 12/31/21 08:21 Dose: 25 mg Documented by: TY Tamsulosin HCl (Tamsulosin Hcl 0.4 Mg Capsule) 0.4 mg PO DAILY@1730 [facility] Last Admin: 12/30/21 18:21 Dose: 0.4 mg Documented by: OSCAR Labs CBC & Chem 7: 12/31/21 06:26 12/31/21 06:26 Labs: Laboratory Results - last 24 hr 12/30/21 12/30/21 12/31/21 18:02 20:26 06:26 MCV 84.1 MCH 25.8 L MCHC 30.7 L RDW 17.0 H Plt Count 284 MPV 10.1 Immature Gran % (Auto) 0.3 Neut % (Auto) 71.9 Lymph % (Auto) 14.7 L [place] % (Auto) 11.0 Eos % (Auto) 1.7 Baso % (Auto) 0.4 Lymph # (Auto) 1.3 [place] # (Auto) 1.0 Eos # (Auto) 0.2 Baso # (Auto) 0.0 Abs Immat Gran (auto) 0.03 Absolute Neuts (auto) 6.5 Absolute Nucleated RBC 0.000 Nucleated RBC % (auto) 0.0 Anion Gap Estim Creat Clear Calc Estimated GFR POC Glucose 158 H 113 Random Glucose Estimat Average Glucose Hemoglobin A1c % Calcium Magnesium Total Bilirubin Direct Bilirubin AST ALT Alkaline Phosphatase B-Natriuretic Peptide Total Protein Albumin 12/31/21 12/31/21 12/31/21 06:26 06:26 06:26 MCV MCH MCHC RDW Plt Count MPV Immature Gran % (Auto) Neut % (Auto) Lymph % (Auto) [place] % (Auto) Eos % (Auto) Baso % (Auto) Lymph # (Auto) [place] # (Auto) Eos # (Auto) Baso # (Auto) Abs Immat Gran (auto) Absolute Neuts (auto) Absolute Nucleated RBC Nucleated RBC % (auto) Anion Gap 16 Estim Creat Clear Calc 59.3 Estimated GFR 58 POC Glucose Random Glucose 167 H Estimat Average Glucose 143 Hemoglobin A1c % 6.6 Calcium 8.9 D Magnesium 1.4 L* Total Bilirubin 1.0 Direct Bilirubin 0.5 AST 22 ALT 51 H Alkaline Phosphatase 104 D B-Natriuretic Peptide Total Protein 5.8 L D Albumin 2.7 L D 12/31/21 12/31/21 12/31/21 06:26 07:34 11:25 MCV MCH MCHC RDW Plt Count MPV Immature Gran % (Auto) Neut % (Auto) Lymph % (Auto) [place] % (Auto) Eos % (Auto) Baso % (Auto) Lymph # (Auto) [place] # (Auto) Eos # (Auto) Baso # (Auto) Abs Immat Gran (auto) Absolute Neuts (auto) Absolute Nucleated RBC Nucleated RBC % (auto) Anion Gap Estim Creat Clear Calc Estimated GFR POC Glucose 208 H 85 Random Glucose Estimat Average Glucose Hemoglobin A1c % Calcium Magnesium Total Bilirubin Direct Bilirubin AST ALT Alkaline Phosphatase B-Natriuretic Peptide 3018 H Total Protein Albumin Microbiology Microbiology Results: Microbiology 12/30/21 10:24 Blood Culture - Preliminary Blood - Venous No growth after 24 hours. 12/30/21 10:24 Blood Culture - Preliminary Blood - Venous No growth after 24 hours. Assessment and Plan (1) Acute on chronic HFrEF (heart failure with reduced ejection fraction): Status: Acute (2) Osteomyelitis: Status: Acute Plan 51yo M with ischemic cardiomyopathy admitted for CHF exacerbation and also found to have DM foot ulcer with osteomyelitis # acute/chronic HFrEF [LVEF 15-20%, grade 3 diastolic dysfunction 10/08/21] # ischemic cardiomyopathy - Cardiology following, on furosemide gtt, monitor I/O + BNP + lytes - changed losartan to Entresto + increased spironolactone - continue carvedilol - add empagliflozin as outpt # diabetic foot ulcer with osteomyelitis - blood cultures negative thus far, ID consult pending; given ABX allergies, on daptomycin + pip/rodrigo d#2 [was on cephalexin at home] - Gen Surg consulted, will need debridement of bone vs great toe amputation but first check arterial doppler given PVD # hypoMg - replete, recheck in am # NSVT - replete Mg, continue carvedilol # HLD # PVD - continue DAPT, statin # COPD - prn nebs, continue ICS/LABA # DM2, A1c 6.6 - basal/bolus insulin # neuropathy - continue gabapentin # BPH - continue tamsulosin # opioid use disorder - continue methadone # VTE ppx - LMWH Quality Stroke Does the patient have a stroke diagnosis?: No VTE Prior VTE?: No VTE Risk Level:: Medical - moderate - high VTE Device Contraindication: Treatment Not Indicated VTE Drug Contraindication: N/A - Med Ordered
--- NOTE | 2021-12-31 13:31 | PC.NURSE ---
Around noon time today pt complained of feeling lightheaded and dizzy. BP 90/52. Lasix gtt paused. Pt placed in Trendelenburg position. Dr. Delcid made aware. Bp up to 104/52. Pt stated he is starting to feel slightly better. Currently in bed resting comfortably. Call russell in reach.
[2021-12-31 16:21] LABS: Glucose, Whole Blood 219 mg/dL (60-115)
[2021-12-31] MEDS: Tamsulosin HCL 0.4 MG CAPSULE PO (17:01)
[2021-12-31 20:28] LABS: Glucose, Whole Blood 168 mg/dL (60-115)
[2021-12-31] MEDS: Insulin Glargine,Hum.rec.anlog 100 UNIT/ML 10 ML VIAL 12 UNIT SUBCUT (20:59)
[2021-12-31] MEDS: Montelukast Sodium 10 MG TABLET PO (20:59)
[2022-01-01] VITALS (8 sets, daily range): BP systolic 93–147; BP diastolic 52–73; PULSE 65–76; RESP 14–20; TEMP 36.3–37.1; O2SAT 94–100; BMI 26.8
[2022-01-01] MEDS: Piperacillin Sodium/Tazobactam 3.375 GM in 0.9 % Sodium Chloride 50 ML IV ×2 (02:53→08:14)
[2022-01-01] MEDS: Enoxaparin Sodium 40 MG/0.4 ML SYRINGE SUBCUT (06:18)
[2022-01-01 07:15] LABS: Anion Gap 12 (12-20); Blood Urea Nitrogen 35 mg/dL (9-16); Calcium 8.4 mg/dL (8.4-10.2); Carbon Dioxide 34 mmol/L (22-29); Chloride 88 mmol/L (96-108); Creatinine Clr Calc Pharmacy 52.8; Estimated Glomerular Filt Rate 51; Glucose Random 192 mg/dL (60-115); Magnesium 1.7 mg/dL (1.6-2.6); Potassium 3.8 mmol/L (3.3-5.1); Sodium 130 mmol/L (135-145)
[2022-01-01 07:18] LABS: B Type Natriuretic Peptide 1139 pg/mL (<100)
[2022-01-01 07:33] LABS: Glucose, Whole Blood 193 mg/dL (60-115)
[2022-01-01] MEDS: Fluticasone/Vilanterol 200/25 BLST.W.DEV 1 PUFF INHALE (07:40)
[2022-01-01] MEDS: Insulin Lispro 100 UNIT/ML 3 ML VIAL SUBCUT ×3 (07:51→21:33)
[2022-01-01] MEDS: Gabapentin 100 MG CAPSULE 200 MG PO ×3 (08:14→21:32)
[2022-01-01] MEDS: Loratadine 10 MG TABLET PO (08:14)
[2022-01-01] MEDS: Sacubitril/Valsartan 24/26 1 TAB TABLET PO ×2 (08:14→21:33)
[2022-01-01] MEDS: carvediloL 6.25 MG TABLET PO ×2 (08:14→21:33)
[2022-01-01] MEDS: Aspirin Enteric Coated 81 MG TABLET.DR PO (08:14)
[2022-01-01] MEDS: Spironolactone 25 MG TABLET PO (08:14)
[2022-01-01] MEDS: 0.9 % Sodium Chloride Flush 3 ML SYRINGE IVFLUSH ×3 (08:15→21:32)
[2022-01-01] MEDS: methADONE HCl 20 MG/2 ML ORAL.CONC 50 MG PO (08:15)
[2022-01-01] MEDS: Clopidogrel Bisulfate 75 MG TABLET PO (08:15)
--- NOTE | 2022-01-01 11:22 | P.PNCA_ITS ---
Subjective Subjective Date of Service: 01/01/22 Principal diagnosis: Congestive heart failure Interval history: output chart poorly documented. Creatinine is increased. No new cardiac symptoms. Review of Systems Review of Systems Yes all other systems are reviewed and are negative Physical Exam Vital Signs: Last Vital Signs Temp 97.9 F 01/01/22 07:24 Pulse 75 01/01/22 07:24 Resp 18 01/01/22 07:41 BP 122/73 01/01/22 07:24 Pulse Ox 94 01/01/22 07:24 BMI result Body Mass Index 26.8 Const General: cooperative, comfortable, no acute distress and tired appearing Nutritional Appearance: overweight Orientation/consciousness: patient oriented x3 Neck Neck: Yes no JVD Resp Effort & Inspection: normal respiratory effort Auscultation: clear to auscultation bilaterally Cardio Rhythm: regular rhythm Heart sounds: S1 normal heart sound present, S2 normal heart sound present, no click, no gallops and no murmurs Neuro General: patient oriented x3 Objective Labs and Meds Result diagrams: 12/31/21 06:26 01/01/22 06:16 Lab results: Laboratory Results - last 24 hr 12/31/21 12/31/21 12/31/21 11:25 15:32 20:24 Sodium Potassium Chloride Carbon Dioxide Anion Gap BUN Creatinine Estim Creat Clear Calc Estimated GFR POC Glucose 85 219 H 168 H Random Glucose Calcium Magnesium Total Creatine Kinase B-Natriuretic Peptide 01/01/22 01/01/22 01/01/22 06:16 06:16 07:22 Sodium 130 L Potassium 3.8 Chloride 88 L Carbon Dioxide 34 H Anion Gap 12 BUN 35 H D Creatinine 1.46 H Estim Creat Clear Calc 52.8 Estimated GFR 51 POC Glucose 193 H Random Glucose 192 H Calcium 8.4 Magnesium 1.7 Total Creatine Kinase 24 L D B-Natriuretic Peptide 1139 H Imaging Radiologist's impression: Impressions Venous Duplex 12/31/21 10:54 IMPRESSION: No acute DVT demonstrated in the left lower extremity. Duplex Scan Lower Extremity Artery 12/31/21 14:36 IMPRESSION: -Monophasic waveforms are again noted throughout the entirety of the left lower extremity consistent with inflow disease. -Left posterior tibial artery is occluded. -Incidentally noted is a small fluid collection within the popliteal fossa which measures approximately 3.1 x 1.8 x 2.0 cm. This fluid collection is deep to a superficial scab. Progress Note: A&P Assessment and plan (1) Acute on chronic HFrEF (heart failure with reduced ejection fraction): Status: Acute Assessment and Plan: Acute exacerbation of systolic heart failure in this middle-aged man with multiple poor prognostic markers including poor social support. This increases his likelihood of having adverse outcomes in the future. Clinically appears to have responded well to therapy. Switch to p.o. Bumex 2 mg daily. CHF education to be provided to the patient. Continue current neurohormonal modulation with Entresto, Aldactone as well as carvedilol therapy. As outpatient may consider addition of Jardiance therapy. Also follow-up with his own telecommunications operator on discharge to consider ICD placement although this needs to be a thorough discussion. Will sign of the case. Fall Risk Details Current Medications: Current Medications Acetaminophen (Acetaminophen 325 Mg Tablet) 650 mg PO Q6H PRN PRN Reason: Pain, Mild (Pain Scale 1-3) Albuterol Sulfate (Albuterol Sulfate (0.083%) 2.5 Mg/3 Ml Vial.Sami) 2.5 mg INHALE Q4H PRN PRN Reason: Shortness Of Breath Or Wheezing Aspirin (Aspirin Enteric Coated 81 Mg Tablet.) 81 mg PO DAILY [facility] Last Admin: 01/01/22 08:14 Dose: 81 mg Documented by: Carvedilol (Carvedilol 6.25 Mg Tablet) 6.25 mg PO BID [facility]; Protocol Last Admin: 01/01/22 08:14 Dose: 6.25 mg Documented by: Clopidogrel Bisulfate (Clopidogrel Bisulfate 75 Mg Tablet) 75 mg PO DAILY [facility] Last Admin: 01/01/22 08:15 Dose: 75 mg Documented by: Dextrose (Dextrose 50 % 25 Gm/50 Ml Syringe) 25 gm IVPUSH Q15M PRN; Protocol PRN Reason: per Hypoglycemia Standing Ord. Docusate Sodium (Docusate Sodium 100 Mg Capsule) 100 mg PO DAILY PRN PRN Reason: Constipation Enoxaparin Sodium (Enoxaparin Sodium 40 Mg/0.4 Ml Syringe) 40 mg SUBCUT Q24H [facility] Last Admin: 01/01/22 06:18 Dose: 40 mg Documented by: Fluticasone Propionate (Fluticasone Propionate Nasal 16 Gm [place]) 1 spray NOSTRIL-B DAILY [facility] Last Admin: 01/01/22 08:15 Dose: Not Given Documented by: Fluticasone/Vilanterol (Fluticasone/Vilanterol 200/25 Blst.W.Dev) 1 puff INHALE RDAILY [facility] Last Admin: 01/01/22 07:40 Dose: 1 puff Documented by: Gabapentin (Gabapentin 100 Mg Capsule) 200 mg PO TID [facility] Last Admin: 01/01/22 08:14 Dose: 200 mg Documented by: Glucose (Glucose Gel 15 Gm Gel..Gram.) 15 gm PO Q15M PRN; Protocol PRN Reason: per Hypoglycemia Standing Ord. Hydromorphone HCl (Hydromorphone Hcl 0.5 Mg/0.5 Ml Syringe) 0.5 mg IVPUSH Q4H PRN; Protocol PRN Reason: Breakthrough Pain Last Admin: 12/31/21 02:28 Dose: 0.5 mg Documented by: Furosemide 200 mg/ Sodium (Chloride) 100 mls @ 2.5 mls/hr IVCONT .Q24H [facility] Last Infusion: 01/01/22 08:17 Dose: 0 mg/hr, 0 mls/hr Documented by: Daptomycin 500 mg/ Sodium (Chloride) 60 mls @ 100 mls/hr IV Q24H [facility] Last Infusion: 12/31/21 13:19 Dose: Infused Documented by: Piperacillin Sod/Tazobactam (Sod 3.375 gm/ Sodium Chloride) 50 mls @ 100 mls/hr IV Q6H [facility] Last Infusion: 01/01/22 08:46 Dose: Infused Documented by: Insulin Glargine (Insulin Glargine,Hum.Rec.Anlog 100 Unit/Ml 10 Ml Vial) 12 unit SUBCUT BEDTIME [facility] Last Admin: 12/31/21 20:59 Dose: 12 unit Documented by: Insulin Human Lispro (Insulin Lispro 100 Unit/Ml 3 Ml Vial) 0 unit SUBCUT QIDACHS [facility]; Protocol Last Admin: 01/01/22 07:51 Dose: 1 unit Documented by: Loratadine (Loratadine 10 Mg Tablet) 10 mg PO DAILY [facility] Last Admin: 01/01/22 08:14 Dose: 10 mg Documented by: Melatonin (Melatonin 3 Mg Tablet) 6 mg PO BEDTIME PRN PRN Reason: Insomnia Methadone HCl (Methadone Hcl 20 Mg/2 Ml Oral.Conc) 50 mg PO DAILY [facility] Last Admin: 01/01/22 08:15 Dose: 50 mg Documented by: Montelukast Sodium (Montelukast Sodium 10 Mg Tablet) 10 mg PO BEDTIME [facility] Last Admin: 12/31/21 20:59 Dose: 10 mg Documented by: Sacubitril/Valsartan (Sacubitril/Valsartan 1 Tab Tablet) 1 tab PO BID [facility]; Protocol Last Admin: 01/01/22 08:14 Dose: 1 tab Documented by: Sodium Chloride (0.9 % Sodium Chloride Flush 3 Ml Syringe) 3 ml IVFLUSH QSHIFT [facility] Last Admin: 01/01/22 08:15 Dose: 3 ml Documented by: Spironolactone (Spironolactone 25 Mg Tablet) 25 mg PO DAILY [facility]; Protocol Last Admin: 01/01/22 08:14 Dose: 25 mg Documented by: Tamsulosin HCl (Tamsulosin Hcl 0.4 Mg Capsule) 0.4 mg PO DAILY@1730 [facility] Last Admin: 12/31/21 17:01 Dose: 0.4 mg Documented by: Time Spent With Patient Time: Total time spent is greater than 50% in coordination of care (as documented) at patient's floor/unit and/or counseling patient: Time with patient: 25 - 35 minutes Progress Note: Quality Stroke Does the patient have a stroke diagnosis?: No Procedures Date of Service Date of Service: 01/01/22
[2022-01-01 11:24] LABS: Glucose, Whole Blood 194 mg/dL (60-115)
[2022-01-01] MEDS: DAPTOmycin 500 MG in 0.9 % Sodium Chloride 50 ML 100 MG IV (11:42)
[2022-01-01] MEDS: HYDROmorphone HCl 0.5 MG/0.5 ML SYRINGE IVPUSH (11:43)
--- NOTE | 2022-01-01 11:44 | P.CNID_ITS ---
History of Present Illness Data of Consult Service Date: 01/01/22 Requesting physician: Juan Delcid Primary Care Provider: [facility] Reason for consult: left great toe osteomyelitis He prseents with scabbed left great toe osteomyelitis. He has left area scabbed as well. He has had area present for last week. Review of Systems Review of Systems: Yes all other systems are reviewed and are negative PMFSH Past Medical History Medical History Abscess or cellulitis of foot Acute on chronic anemia Acute on chronic combined systolic and diastolic congestive heart failure Acute on chronic HFrEF (heart failure with reduced ejection fraction) Acute respiratory failure with hypoxia Asthma Bipolar 1 disorder BPH (benign prostatic hyperplasia) CHF exacerbation Cholelithiasis Closed wedge compression fracture of T9 vertebra COPD (chronic obstructive pulmonary disease) Diabetes mellitus Diabetes mellitus, type 2 Elevated troponin GERD (gastroesophageal reflux disease) Hyperlipidemia Ischemic cardiomyopathy Lymphadenopathy Opiate abuse, continuous Osteomyelitis Peripheral arterial disease Peripheral neuropathy Peripheral vascular disease Substance abuse Tracheomalacia, acquired Family History Family History Father Chronic mental illness Hypertension Asthma Stroke Mother Asthma Diabetes Coronary artery disease Family history: reviewed and not pertinent Surgical History Surgical History History of amputation History of laminectomy History of transurethral resection of prostate Hx of BKA Social History Social History Household Members: None Housing: Apartment Housing Other:: IN A LITTLE ROOM Do you presently have visiting nurse or other home services: Yes Alcohol intake: never Patient Tobacco Use Status: Never used Tobacco e-Cigarette/Vaping Use: Never Used Second Hand Smoke Exposure: No Substance Use Type: Marijuana Advance Directives Date on File: 11/24/20 service: No Current occupational status: disabled Meds Allergies Allergy/AdvReac Type Severity Reaction Status Date / Time ertapenem Allergy Intermediate Hives Verified 01/19/22 10:31 vancomycin [VANCOMYCIN] Allergy Intermediate HIVES Verified 01/19/22 10:31 Chocolate Allergy Unknown Rash Verified 01/19/22 10:31 ciprofloxacin [From CIPRO] Allergy Unknown SWELLING Verified 01/19/22 10:31 hydrocortisone [Cipro HC] Allergy Unknown Unknown Verified 01/19/22 10:31 sulfamethoxazole Allergy Unknown rash Verified 01/19/22 10:31 [From BACTRIM] trimethoprim [From BACTRIM] Allergy Unknown rash Verified 01/19/22 10:31 turkey [TURKEY] Allergy Unknown RASH Verified 01/19/22 10:31 Active Medications: Current Medications Acetaminophen (Acetaminophen 325 Mg Tablet) 650 mg PO Q6H PRN PRN Reason: Pain, Mild (Pain Scale 1-3) Albuterol Sulfate (Albuterol Sulfate (0.083%) 2.5 Mg/3 Ml Vial.Neb) 2.5 mg INHALE Q4H PRN PRN Reason: Shortness Of Breath Or Wheezing Aspirin (Aspirin Enteric Coated 81 Mg Tablet.) 81 mg PO DAILY [facility] Last Admin: 01/01/22 08:14 Dose: 81 mg Documented by: Carvedilol (Carvedilol 6.25 Mg Tablet) 6.25 mg PO BID [facility]; Protocol Last Admin: 01/01/22 08:14 Dose: 6.25 mg Documented by: Clopidogrel Bisulfate (Clopidogrel Bisulfate 75 Mg Tablet) 75 mg PO DAILY [facility] Last Admin: 01/01/22 08:15 Dose: 75 mg Documented by: Dextrose (Dextrose 50 % 25 Gm/50 Ml Syringe) 25 gm IVPUSH Q15M PRN; Protocol PRN Reason: per Hypoglycemia Standing Ord. Docusate Sodium (Docusate Sodium 100 Mg Capsule) 100 mg PO DAILY PRN PRN Reason: Constipation Enoxaparin Sodium (Enoxaparin Sodium 40 Mg/0.4 Ml Syringe) 40 mg SUBCUT Q24H [facility] Last Admin: 01/01/22 06:18 Dose: 40 mg Documented by: Fluticasone Propionate (Fluticasone Propionate Nasal 16 Gm [place]) 1 spray NOSTRIL-B DAILY [facility] Last Admin: 01/01/22 08:15 Dose: Not Given Documented by: Fluticasone/Vilanterol (Fluticasone/Vilanterol 200/25 Blst.W.Dev) 1 puff INHALE RDAILY [facility] Last Admin: 01/01/22 07:40 Dose: 1 puff Documented by: Gabapentin (Gabapentin 100 Mg Capsule) 200 mg PO TID [facility] Last Admin: 01/01/22 08:14 Dose: 200 mg Documented by: Glucose (Glucose Gel 15 Gm Gel..Gram.) 15 gm PO Q15M PRN; Protocol PRN Reason: per Hypoglycemia Standing Ord. Hydromorphone HCl (Hydromorphone Hcl 0.5 Mg/0.5 Ml Syringe) 0.5 mg IVPUSH Q4H PRN; Protocol PRN Reason: Breakthrough Pain Last Admin: 12/31/21 02:28 Dose: 0.5 mg Documented by: Furosemide 200 mg/ Sodium (Chloride) 100 mls @ 2.5 mls/hr IVCONT .Q24H [facility] Last Infusion: 01/01/22 08:17 Dose: 0 mg/hr, 0 mls/hr Documented by: Daptomycin 500 mg/ Sodium (Chloride) 60 mls @ 100 mls/hr IV Q24H [facility] Last Infusion: 12/31/21 13:19 Dose: Infused Documented by: Piperacillin Sod/Tazobactam (Sod 3.375 gm/ Sodium Chloride) 50 mls @ 100 mls/hr IV Q6H [facility] Last Infusion: 01/01/22 08:46 Dose: Infused Documented by: Insulin Glargine (Insulin Glargine,Hum.Rec.Anlog 100 Unit/Ml 10 Ml Vial) 12 unit SUBCUT BEDTIME [facility] Last Admin: 12/31/21 20:59 Dose: 12 unit Documented by: Insulin Human Lispro (Insulin Lispro 100 Unit/Ml 3 Ml Vial) 0 unit SUBCUT QIDACHS [facility]; Protocol Last Admin: 01/01/22 07:51 Dose: 1 unit Documented by: Loratadine (Loratadine 10 Mg Tablet) 10 mg PO DAILY [facility] Last Admin: 01/01/22 08:14 Dose: 10 mg Documented by: Melatonin (Melatonin 3 Mg Tablet) 6 mg PO BEDTIME PRN PRN Reason: Insomnia Methadone HCl (Methadone Hcl 20 Mg/2 Ml Oral.Conc) 50 mg PO DAILY [facility] Last Admin: 01/01/22 08:15 Dose: 50 mg Documented by: Montelukast Sodium (Montelukast Sodium 10 Mg Tablet) 10 mg PO BEDTIME [facility] Last Admin: 12/31/21 20:59 Dose: 10 mg Documented by: Sacubitril/Valsartan (Sacubitril/Valsartan 1 Tab Tablet) 1 tab PO BID [facility]; Protocol Last Admin: 01/01/22 08:14 Dose: 1 tab Documented by: Sodium Chloride (0.9 % Sodium Chloride Flush 3 Ml Syringe) 3 ml IVFLUSH QSHIFT [facility] Last Admin: 01/01/22 08:15 Dose: 3 ml Documented by: Spironolactone (Spironolactone 25 Mg Tablet) 25 mg PO DAILY [facility]; Protocol Last Admin: 01/01/22 08:14 Dose: 25 mg Documented by: Tamsulosin HCl (Tamsulosin Hcl 0.4 Mg Capsule) 0.4 mg PO DAILY@1730 [facility] Last Admin: 12/31/21 17:01 Dose: 0.4 mg Documented by: Home Medications Medication Instructions Recorded Confirmed Last Taken Type FreeStyle Lite Strips 08/12/20 02/13/21 Unknown History albuterol sulfate 2.5 mg INHALATION Q4H PRN 08/12/20 12/30/21 Unknown History albuterol sulfate 90 mcg/actuation 2 puff INHALATION Q4H PRN 08/12/20 12/30/21 Unknown History aerosol inhaler blood-glucose meter (FreeStyle 08/12/20 02/13/21 Unknown History [place] Lite) cane 08/12/20 02/13/21 Unknown History lancets 08/12/20 02/13/21 Unknown History methadone 10 mg/mL oral concentrate 50 mg PO QAM 08/12/20 12/30/21 01/02/21 History pen needle, diabetic 08/12/20 02/13/21 Unknown History aspirin 81 mg tablet,delayed 81 mg PO DAILY 08/14/20 12/30/21 Unknown History release atorvastatin 20 mg tablet 20 mg PO BEDTIME 08/14/20 12/30/21 Unknown History cetirizine 10 mg tablet 10 mg PO DAILY 08/14/20 12/30/21 Unknown History fluticasone propionate 50 1 spray INTRANASAL DAILY 08/14/20 12/30/21 Unknown History mcg/actuation nasal spray,suspension (Flonase Allergy Relief) gabapentin 100 mg capsule 200 mg PO TID 08/14/20 12/30/21 Unknown History insulin glargine 100 unit/mL 12 unit SUBCUT QPM 08/14/20 12/30/21 Unknown History subcutaneous solution (Lantus U-100 Insulin) montelukast 10 mg tablet 10 mg PO BEDTIME 08/14/20 12/30/21 Unknown History tamsulosin 0.4 mg capsule 0.4 mg PO DAILY 08/14/20 12/30/21 Unknown History clopidogrel 75 mg tablet 1 tab PO QAM 10/08/21 12/30/21 Unknown History famotidine 20 mg tablet 20 mg PO BID 12/30/21 12/30/21 Unknown History fluticasone 500 mcg-salmeterol 50 1 inh INHALATION BID 12/30/21 12/30/21 Unknown History mcg/dose blistr powdr for inhalation (Advair Diskus) insulin aspart U-100 100 unit/mL 5 unit SUBCUT TID 12/30/21 12/30/21 Unknown History (3 mL) subcutaneous pen (Novolog Flexpen U-100 Insulin aspart) lidocaine 5 % topical patch 1 patch TOPICAL DAILY 12/30/21 12/30/21 Unknown History zinc 50 mg tablet 50 mg PO DAILY 12/30/21 12/30/21 Unknown History Physical Exam Vital Signs: Vital Signs: Last Vital Signs Temp 97.9 F 01/01/22 11:32 Pulse 73 01/01/22 11:32 Resp 18 01/01/22 11:32 BP 102/52 L 01/01/22 11:32 Pulse Ox 95 01/01/22 11:32 BMI result Body Mass Index 26.8 Const: General: cooperative HENMT: Head: Yes normal to inspection Resp: Effort & Inspection: normal respiratory effort Cardio: Rate: regular rate Rhythm: regular rhythm GI: Palpation (GI): Soft to palpation and nontender Skin: General skin exam: no rashes or lesions noted Extrem: Other: left great toe scabbed Results Labs CBC & Chem 7: 01/12/22 06:09 01/12/22 06:09 Labs: BMP 01/01/22 06:16 Sodium 130 L Potassium 3.8 Chloride 88 L Carbon Dioxide 34 H BUN 35 H D Creatinine 1.46 H Calcium 8.4 Cardiac Enzymes 01/01/22 Range/Units 06:16 Total Creatine Kinase 24 L D (38-174) U/L Microbiology Microbiology Results: Microbiology 12/30/21 10:24 Blood - Venous Blood Culture - Preliminary No growth after 24 hours. 12/30/21 10:24 Blood - Venous Blood Culture - Preliminary No growth after 24 hours. Assessment and Plan (1) Osteomyelitis: Qualifiers: Laterality: left Osteomyelitis location: foot Osteomyelitis type: unspecified type Qualified Code(s): M86.9 - Osteomyelitis, unspecified He has left toe osteomyelitis organism unknown Plan Six weeks Daptomycin Weekly CBC,CK ,creatinine
--- NOTE | 2022-01-01 13:14 | P.PNIM_ITS ---
Subjective Subjective Date of Service: 01/01/22 Interval History: Lightheadedness improved Leg swelling improved No fever Review of Systems Review of Systems: Yes all other systems are reviewed and are negative Physical Exam Vital Signs: Vital Signs: Last Vital Signs Temp 97.9 F 01/01/22 11:32 Pulse 73 01/01/22 11:32 Resp 18 01/01/22 11:43 BP 102/52 L 01/01/22 11:32 Pulse Ox 95 01/01/22 11:32 BMI result Body Mass Index 26.8 Gen: in no acute distress HEENT: sclera anicteric, moist mucus membranes Neck: supple Lungs: clear to auscultation bilaterally Heart: regular rate and rhythm, no murmurs Abd: soft, non-tender, non-distended Ext: s/p R BKA, 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 Skin: warm/well-perfused Neuro: alert and oriented x3, no focal findings Psych: appropriate affect Objective Data Active Medications Acetaminophen (Acetaminophen 325 Mg Tablet) 650 mg PO Q6H PRN PRN Reason: Pain, Mild (Pain Scale 1-3) Albuterol Sulfate (Albuterol Sulfate (0.083%) 2.5 Mg/3 Ml Vial.Neb) 2.5 mg INHALE Q4H PRN PRN Reason: Shortness Of Breath Or Wheezing Aspirin (Aspirin Enteric Coated 81 Mg Tablet.) 81 mg PO DAILY [facility] Last Admin: 01/01/22 08:14 Dose: 81 mg Documented by: YT Carvedilol (Carvedilol 6.25 Mg Tablet) 6.25 mg PO BID [facility]; Protocol Last Admin: 01/01/22 08:14 Dose: 6.25 mg Documented by: TY Clopidogrel Bisulfate (Clopidogrel Bisulfate 75 Mg Tablet) 75 mg PO DAILY [facility] Last Admin: 01/01/22 08:15 Dose: 75 mg Documented by: TY Dextrose (Dextrose 50 % 25 Gm/50 Ml Syringe) 25 gm IVPUSH Q15M PRN; Protocol PRN Reason: per Hypoglycemia Standing Ord. Docusate Sodium (Docusate Sodium 100 Mg Capsule) 100 mg PO DAILY PRN PRN Reason: Constipation Enoxaparin Sodium (Enoxaparin Sodium 40 Mg/0.4 Ml Syringe) 40 mg SUBCUT Q24H [facility] Last Admin: 01/01/22 06:18 Dose: 40 mg Documented by: LATANYA Fluticasone Propionate (Fluticasone Propionate Nasal 16 Gm [place]) 1 spray NOSTRIL-B DAILY [facility] Last Admin: 01/01/22 08:15 Dose: Not Given Documented by: TY Non-Admin Reason: Patient Refused Fluticasone/Vilanterol (Fluticasone/Vilanterol 200/25 Blst.W.Dev) 1 puff INHALE RDAILY [facility] Last Admin: 01/01/22 07:40 Dose: 1 puff Documented by: RICKEY Gabapentin (Gabapentin 100 Mg Capsule) 200 mg PO TID [facility] Last Admin: 01/01/22 08:14 Dose: 200 mg Documented by: TY Glucose (Glucose Gel 15 Gm Gel..Gram.) 15 gm PO Q15M PRN; Protocol PRN Reason: per Hypoglycemia Standing Ord. Hydromorphone HCl (Hydromorphone Hcl 0.5 Mg/0.5 Ml Syringe) 0.5 mg IVPUSH Q4H PRN; Protocol PRN Reason: Breakthrough Pain Last Admin: 01/01/22 11:43 Dose: 0.5 mg Documented by: TY Furosemide 200 mg/ Sodium (Chloride) 100 mls @ 2.5 mls/hr IVCONT .Q24H [facility] Last Infusion: 01/01/22 08:17 Dose: 0 mg/hr, 0 mls/hr Documented by: TY Daptomycin 500 mg/ Sodium (Chloride) 60 mls @ 100 mls/hr IV Q24H [facility] Last Infusion: 01/01/22 13:13 Dose: 0 mls/hr Documented by: TY Insulin Glargine (Insulin Glargine,Hum.Rec.Anlog 100 Unit/Ml 10 Ml Vial) 12 unit SUBCUT BEDTIME [facility] Last Admin: 12/31/21 20:59 Dose: 12 unit Documented by: RICKY Insulin Human Lispro (Insulin Lispro 100 Unit/Ml 3 Ml Vial) 0 unit SUBCUT QIDACHS [facility]; Protocol Last Admin: 01/01/22 11:42 Dose: 2 unit Documented by: TY Loratadine (Loratadine 10 Mg Tablet) 10 mg PO DAILY [facility] Last Admin: 01/01/22 08:14 Dose: 10 mg Documented by: TY Melatonin (Melatonin 3 Mg Tablet) 6 mg PO BEDTIME PRN PRN Reason: Insomnia Methadone HCl (Methadone Hcl 20 Mg/2 Ml Oral.Conc) 50 mg PO DAILY [facility] Last Admin: 01/01/22 08:15 Dose: 50 mg Documented by: TY Montelukast Sodium (Montelukast Sodium 10 Mg Tablet) 10 mg PO BEDTIME [facility] Last Admin: 12/31/21 20:59 Dose: 10 mg Documented by: RICKY Sacubitril/Valsartan (Sacubitril/Valsartan 1 Tab Tablet) 1 tab PO BID [facility]; Protocol Last Admin: 01/01/22 08:14 Dose: 1 tab Documented by: TY Sodium Chloride (0.9 % Sodium Chloride Flush 3 Ml Syringe) 3 ml IVFLUSH QSHIFT [facility] Last Admin: 01/01/22 08:15 Dose: 3 ml Documented by: TY Spironolactone (Spironolactone 25 Mg Tablet) 25 mg PO DAILY [facility]; Protocol Last Admin: 01/01/22 08:14 Dose: 25 mg Documented by: TY Tamsulosin HCl (Tamsulosin Hcl 0.4 Mg Capsule) 0.4 mg PO DAILY@1730 [facility] Last Admin: 12/31/21 17:01 Dose: 0.4 mg Documented by: RICKY Labs CBC & Chem 7: 12/31/21 06:26 01/01/22 06:16 Labs: Laboratory Results - last 24 hr 12/31/21 12/31/21 01/01/22 15:32 20:24 06:16 Anion Gap 12 Estim Creat Clear Calc 52.8 Estimated GFR 51 POC Glucose 219 H 168 H Random Glucose 192 H Calcium 8.4 Magnesium 1.7 Total Creatine Kinase 24 L D B-Natriuretic Peptide 01/01/22 01/01/22 01/01/22 06:16 07:22 11:06 Anion Gap Estim Creat Clear Calc Estimated GFR POC Glucose 193 H 194 H Random Glucose Calcium Magnesium Total Creatine Kinase B-Natriuretic Peptide 1139 H Impressions Duplex Scan Lower Extremity Artery 12/31/21 14:36 IMPRESSION: -Monophasic waveforms are again noted throughout the entirety of the left lower extremity consistent with inflow disease. -Left posterior tibial artery is occluded. -Incidentally noted is a small fluid collection within the popliteal fossa which measures approximately 3.1 x 1.8 x 2.0 cm. This fluid collection is deep to a superficial scab. Microbiology Microbiology Results: Microbiology 12/30/21 10:24 Blood Culture - Preliminary Blood - Venous No growth after 48 hours. 12/30/21 10:24 Blood Culture - Preliminary Blood - Venous No growth after 48 hours. Assessment and Plan (1) Acute on chronic HFrEF (heart failure with reduced ejection fraction): Status: Acute (2) Osteomyelitis: Status: Acute Plan hospital d#3 51yo M with ischemic cardiomyopathy admitted for CHF exacerbation and also found to have DM foot ulcer with osteomyelitis # acute/chronic HFrEF [LVEF 15-20%, grade 3 diastolic dysfunction 10/08/21] # ischemic cardiomyopathy - furosemide gtt held yesterday for lightheadedness + soft BP. SCr up today. will d/c furosemide gtt and start PO bumetanide 2 mg qam. Cardiology following. - changed losartan to Entresto + increased spironolactone - continue carvedilol - add empagliflozin as outpt - consider outpt CardioMEMS # diabetic foot ulcer with acute osteomyelitis - blood cultures negative thus far, ID consuted; given ABX allergies, on daptomycin d#. will order PICC - Gen Surg consulted, will need debridement of bone to be done at bedside. if toe does not heal after 6 wk of IV ABX plus revascularization, will require amputation # PAD, L [employer] occlusion - discussed with Vasc Surg. will need outpt f/u in 1-2 wk for angiogram/stenting - continue DAPT. statin held while on daptomycin # hypoMg - repleted # NSVT - repleted Mg, continue carvedilol # COPD - prn nebs, continue ICS/LABA # DM2, A1c 6.6 - basal/bolus insulin # neuropathy - continue gabapentin # BPH - continue tamsulosin # opioid use disorder - continue methadone # VTE ppx - LMWH # dispo - plan STR for IV ABX, wound care, PT Quality Stroke Does the patient have a stroke diagnosis?: No VTE Prior VTE?: No VTE Risk Level:: Medical - moderate - high VTE Device Contraindication: Treatment Not Indicated VTE Drug Contraindication: N/A - Med Ordered
[2022-01-01] MEDS: Lidocaine 4 % Patch ADH..PATCH 1 PATCH TRANSDERMA (15:25)
[2022-01-01] MEDS: Bumetanide 1 MG TABLET 2 MG PO (15:25)
[2022-01-01 17:21] LABS: Glucose, Whole Blood 127 mg/dL (60-115)
[2022-01-01] MEDS: Tamsulosin HCL 0.4 MG CAPSULE PO (17:53)
[2022-01-01 20:13] LABS: Glucose, Whole Blood 214 mg/dL (60-115)
[2022-01-01] MEDS: Montelukast Sodium 10 MG TABLET PO (21:32)
[2022-01-01] MEDS: Melatonin 3 MG TABLET 6 MG PO (21:32)
[2022-01-01] MEDS: Insulin Glargine,Hum.rec.anlog 100 UNIT/ML 10 ML VIAL 12 UNIT SUBCUT (21:32)
[2022-01-02] VITALS (8 sets, daily range): BP systolic 94–131; BP diastolic 54–61; PULSE 64–81; RESP 16–20; TEMP 36.1–36.5; O2SAT 94–98; BMI 28.3
--- NOTE | 2022-01-02 02:55 | PC.NURSE ---
Patient had a 16 beat of vtach at 0237, slept through it. Otherwise, pt has been SR on tele. Mag noted to be 1.7, Dr. Mccullough notified via [employer]. Pt being followed by cardio. No new orders at this time. Will continue to monitor.
[2022-01-02] MEDS: Enoxaparin Sodium 40 MG/0.4 ML SYRINGE SUBCUT (06:07)
[2022-01-02 07:38] LABS: B Type Natriuretic Peptide 2006 pg/mL (<100)
[2022-01-02] MEDS: Fluticasone/Vilanterol 200/25 BLST.W.DEV 1 PUFF INHALE (07:43)
[2022-01-02 07:46] LABS: Glucose, Whole Blood 224 mg/dL (60-115)
[2022-01-02 07:50] LABS: Anion Gap 16 (12-20); Blood Urea Nitrogen 38 mg/dL (9-16); Calcium 8.6 mg/dL (8.4-10.2); Carbon Dioxide 27 mmol/L (22-29); Chloride 92 mmol/L (96-108); Creatinine Clr Calc Pharmacy 63.2; Estimated Glomerular Filt Rate 56; Glucose Random 164 mg/dL (60-115); Magnesium 1.8 mg/dL (1.6-2.6); Potassium 4.5 mmol/L (3.3-5.1); Sodium 130 mmol/L (135-145)
[2022-01-02] MEDS: Insulin Lispro 100 UNIT/ML 3 ML VIAL SUBCUT ×2 (08:09→20:22)
[2022-01-02] MEDS: Clopidogrel Bisulfate 75 MG TABLET PO (08:10)
[2022-01-02] MEDS: 0.9 % Sodium Chloride Flush 3 ML SYRINGE IVFLUSH ×3 (08:10→20:22)
[2022-01-02] MEDS: Aspirin Enteric Coated 81 MG TABLET.DR PO (08:10)
[2022-01-02] MEDS: Gabapentin 100 MG CAPSULE 200 MG PO ×3 (08:10→20:22)
[2022-01-02] MEDS: Loratadine 10 MG TABLET PO (08:10)
[2022-01-02] MEDS: methADONE HCl 20 MG/2 ML ORAL.CONC 50 MG PO (08:10)
[2022-01-02] MEDS: Lidocaine 4 % Patch ADH..PATCH 1 PATCH TRANSDERMA (08:10)
--- NOTE | 2022-01-02 09:24 | P.PNGS_ITS ---
Subjective Subjective Date of Service: 01/02/22 Interval history: Patient reports right great toe pain but feels the redness is improving. Physical Exam Vital Signs: Vital Signs: Last Vital Signs Temp 97.7 F 01/02/22 07:28 Pulse 69 01/02/22 07:28 Resp 18 01/02/22 07:44 BP 120/59 L 01/02/22 07:28 Pulse Ox 95 01/02/22 07:28 BMI result Body Mass Index 28.3 Const: General: no acute distress and well developed Nutritional Appearance: well nourished Orientation/consciousness: patient oriented x3 Limitations: wheelchair HENMT: Head: Yes normocephalic and Yes atraumatic Resp: Effort & Inspection: normal respiratory effort Neuro: General: patient oriented x3 Extrem: Other: Right great toe with no over the middle phalanx. An ulcer measuring 2 x 2 cm was identified with exposed bone at the base. Skin and subcutaneous tissue measuring 1.5 cm diameter was debrided down to healthy and viable tissue. Portion of the bone which is free-floating was excised with a scissor as well. Wounds were dressed with silver alginate and dry sterile dressings. Objective Data Active Medications Acetaminophen (Acetaminophen 325 Mg Tablet) 650 mg PO Q6H PRN PRN Reason: Pain, Mild (Pain Scale 1-3) Albuterol Sulfate (Albuterol Sulfate (0.083%) 2.5 Mg/3 Ml Vial.Neb) 2.5 mg INHALE Q4H PRN PRN Reason: Shortness Of Breath Or Wheezing Aspirin (Aspirin Enteric Coated 81 Mg Tablet.) 81 mg PO DAILY [facility] Last Admin: 01/02/22 08:10 Dose: 81 mg Documented by: TY Bumetanide (Bumetanide 1 Mg Tablet) 2 mg PO DAILY [facility]; Protocol Last Admin: 01/01/22 15:25 Dose: 2 mg Documented by: TY Carvedilol (Carvedilol 6.25 Mg Tablet) 6.25 mg PO BID [facility]; Protocol Last Admin: 01/01/22 21:33 Dose: 6.25 mg Documented by: SCOOTER Clopidogrel Bisulfate (Clopidogrel Bisulfate 75 Mg Tablet) 75 mg PO DAILY [facility] Last Admin: 01/02/22 08:10 Dose: 75 mg Documented by: TY Dextrose (Dextrose 50 % 25 Gm/50 Ml Syringe) 25 gm IVPUSH Q15M PRN; Protocol PRN Reason: per Hypoglycemia Standing Ord. Docusate Sodium (Docusate Sodium 100 Mg Capsule) 100 mg PO DAILY PRN PRN Reason: Constipation Enoxaparin Sodium (Enoxaparin Sodium 40 Mg/0.4 Ml Syringe) 40 mg SUBCUT Q24H [facility] Last Admin: 01/02/22 06:07 Dose: 40 mg Documented by: SCOOTER Fluticasone Propionate (Fluticasone Propionate Nasal 16 Gm [place]) 1 spray NOSTRIL-B DAILY [facility] Last Admin: 01/02/22 08:12 Dose: Not Given Documented by: TY Non-Admin Reason: Patient Refused Fluticasone/Vilanterol (Fluticasone/Vilanterol 200/25 Blst.W.Dev) 1 puff INHALE RDAILY [facility] Last Admin: 01/02/22 07:43 Dose: 1 puff Documented by: RICKEY Gabapentin (Gabapentin 100 Mg Capsule) 200 mg PO TID [facility] Last Admin: 01/02/22 08:10 Dose: 200 mg Documented by: TY Glucose (Glucose Gel 15 Gm Gel..Gram.) 15 gm PO Q15M PRN; Protocol PRN Reason: per Hypoglycemia Standing Ord. Hydromorphone HCl (Hydromorphone Hcl 0.5 Mg/0.5 Ml Syringe) 0.5 mg IVPUSH Q4H PRN; Protocol PRN Reason: Breakthrough Pain Last Admin: 01/01/22 11:43 Dose: 0.5 mg Documented by: TY Daptomycin 500 mg/ Sodium (Chloride) 60 mls @ 100 mls/hr IV Q24H [facility] Last Infusion: 01/01/22 13:13 Dose: 0 mls/hr Documented by: TY Insulin Glargine (Insulin Glargine,Hum.Rec.Anlog 100 Unit/Ml 10 Ml Vial) 12 unit SUBCUT BEDTIME [facility] Last Admin: 01/01/22 21:32 Dose: 12 unit Documented by: SCOOTER Insulin Human Lispro (Insulin Lispro 100 Unit/Ml 3 Ml Vial) 0 unit SUBCUT QIDACHS [facility]; Protocol Last Admin: 01/02/22 08:09 Dose: 4 unit Documented by: TY Lidocaine (Lidocaine 4 % Patch Adh..Patch) 1 patch TRANSDERMA DAILY [facility]; Protocol Last Admin: 01/02/22 08:10 Dose: 1 patch Documented by: TY Loratadine (Loratadine 10 Mg Tablet) 10 mg PO DAILY [facility] Last Admin: 01/02/22 08:10 Dose: 10 mg Documented by: TY Melatonin (Melatonin 3 Mg Tablet) 6 mg PO BEDTIME PRN PRN Reason: Insomnia Last Admin: 01/01/22 21:32 Dose: 6 mg Documented by: SCOOTER Methadone HCl (Methadone Hcl 20 Mg/2 Ml Oral.Conc) 50 mg PO DAILY [facility] Last Admin: 01/02/22 08:10 Dose: 50 mg Documented by: TY Montelukast Sodium (Montelukast Sodium 10 Mg Tablet) 10 mg PO BEDTIME [facility] Last Admin: 01/01/22 21:32 Dose: 10 mg Documented by: SCOOTER Sacubitril/Valsartan (Sacubitril/Valsartan 1 Tab Tablet) 1 tab PO BID [facility]; Protocol Last Admin: 01/01/22 21:33 Dose: 1 tab Documented by: SCOOTER Sodium Chloride (0.9 % Sodium Chloride Flush 3 Ml Syringe) 3 ml IVFLUSH QSHIFT [facility] Last Admin: 01/02/22 08:10 Dose: 3 ml Documented by: TY Spironolactone (Spironolactone 25 Mg Tablet) 25 mg PO DAILY [facility]; Protocol Last Admin: 01/01/22 08:14 Dose: 25 mg Documented by: TY Tamsulosin HCl (Tamsulosin Hcl 0.4 Mg Capsule) 0.4 mg PO DAILY@1730 [facility] Last Admin: 01/01/22 17:53 Dose: 0.4 mg Documented by: TY Labs CBC & Chem 7: 12/31/21 06:26 01/02/22 06:37 Labs: Laboratory Results - last 24 hr 01/01/22 01/01/22 01/01/22 11:06 16:40 19:59 Anion Gap Estim Creat Clear Calc Estimated GFR POC Glucose 194 H 127 H 214 H Random Glucose Calcium Magnesium B-Natriuretic Peptide 01/02/22 01/02/22 01/02/22 06:37 06:37 07:31 Anion Gap 16 Estim Creat Clear Calc 63.2 Estimated GFR 56 POC Glucose 224 H Random Glucose 164 H Calcium 8.6 Magnesium 1.8 B-Natriuretic Peptide 2006 H Microbiology Microbiology Results: Microbiology 12/30/21 10:24 Blood Culture - Preliminary Blood - Venous No growth after 48 hours. 12/30/21 10:24 Blood Culture - Preliminary Blood - Venous No growth after 48 hours. Procedures Date of Service Date of Service: 01/02/22 Progress Note: A&P Assessment and plan (1) Peripheral vascular disease: Status: Acute (2) Osteomyelitis: Status: Acute Plan 51-year-old male patient with diabetes and a known history of peripheral vascular disease now presenting with a nonhealing wound of the right great toe. Vascular studies Inflow disease as well as tibial artery occlusion. Plan for vascular procedure and IV antibiotics prior to ray amputation. Wounds debrided today down to healthy viable tissue including some bone. Patient tolerated this well. Fall Risk Details Current Medications: Current Medications Acetaminophen (Acetaminophen 325 Mg Tablet) 650 mg PO Q6H PRN PRN Reason: Pain, Mild (Pain Scale 1-3) Albuterol Sulfate (Albuterol Sulfate (0.083%) 2.5 Mg/3 Ml Vial.Sami) 2.5 mg INHALE Q4H PRN PRN Reason: Shortness Of Breath Or Wheezing Aspirin (Aspirin Enteric Coated 81 Mg Tablet.) 81 mg PO DAILY [facility] Last Admin: 01/02/22 08:10 Dose: 81 mg Documented by: Bumetanide (Bumetanide 1 Mg Tablet) 2 mg PO DAILY [facility]; Protocol Last Admin: 01/01/22 15:25 Dose: 2 mg Documented by: Carvedilol (Carvedilol 6.25 Mg Tablet) 6.25 mg PO BID [facility]; Protocol Last Admin: 01/01/22 21:33 Dose: 6.25 mg Documented by: Clopidogrel Bisulfate (Clopidogrel Bisulfate 75 Mg Tablet) 75 mg PO DAILY [facility] Last Admin: 01/02/22 08:10 Dose: 75 mg Documented by: Dextrose (Dextrose 50 % 25 Gm/50 Ml Syringe) 25 gm IVPUSH Q15M PRN; Protocol PRN Reason: per Hypoglycemia Standing Ord. Docusate Sodium (Docusate Sodium 100 Mg Capsule) 100 mg PO DAILY PRN PRN Reason: Constipation Enoxaparin Sodium (Enoxaparin Sodium 40 Mg/0.4 Ml Syringe) 40 mg SUBCUT Q24H [facility] Last Admin: 01/02/22 06:07 Dose: 40 mg Documented by: Fluticasone Propionate (Fluticasone Propionate Nasal 16 Gm [place]) 1 spray NOSTRIL-B DAILY [facility] Last Admin: 01/02/22 08:12 Dose: Not Given Documented by: Fluticasone/Vilanterol (Fluticasone/Vilanterol 200/25 Blst.W.Dev) 1 puff INHALE RDAILY [facility] Last Admin: 01/02/22 07:43 Dose: 1 puff Documented by: Gabapentin (Gabapentin 100 Mg Capsule) 200 mg PO TID [facility] Last Admin: 01/02/22 08:10 Dose: 200 mg Documented by: Glucose (Glucose Gel 15 Gm Gel..Gram.) 15 gm PO Q15M PRN; Protocol PRN Reason: per Hypoglycemia Standing Ord. Hydromorphone HCl (Hydromorphone Hcl 0.5 Mg/0.5 Ml Syringe) 0.5 mg IVPUSH Q4H PRN; Protocol PRN Reason: Breakthrough Pain Last Admin: 01/01/22 11:43 Dose: 0.5 mg Documented by: Daptomycin 500 mg/ Sodium (Chloride) 60 mls @ 100 mls/hr IV Q24H [facility] Last Infusion: 01/01/22 13:13 Dose: Infused Documented by: Insulin Glargine (Insulin Glargine,Hum.Rec.Anlog 100 Unit/Ml 10 Ml Vial) 12 unit SUBCUT BEDTIME [facility] Last Admin: 01/01/22 21:32 Dose: 12 unit Documented by: Insulin Human Lispro (Insulin Lispro 100 Unit/Ml 3 Ml Vial) 0 unit SUBCUT QIDACHS [facility]; Protocol Last Admin: 01/02/22 08:09 Dose: 4 unit Documented by: Lidocaine (Lidocaine 4 % Patch Adh..Patch) 1 patch TRANSDERMA DAILY [facility]; Protocol Last Admin: 01/02/22 08:10 Dose: 1 patch Documented by: Loratadine (Loratadine 10 Mg Tablet) 10 mg PO DAILY [facility] Last Admin: 01/02/22 08:10 Dose: 10 mg Documented by: Melatonin (Melatonin 3 Mg Tablet) 6 mg PO BEDTIME PRN PRN Reason: Insomnia Last Admin: 01/01/22 21:32 Dose: 6 mg Documented by: Methadone HCl (Methadone Hcl 20 Mg/2 Ml Oral.Conc) 50 mg PO DAILY [facility] Last Admin: 01/02/22 08:10 Dose: 50 mg Documented by: Montelukast Sodium (Montelukast Sodium 10 Mg Tablet) 10 mg PO BEDTIME [facility] Last Admin: 01/01/22 21:32 Dose: 10 mg Documented by: Sacubitril/Valsartan (Sacubitril/Valsartan 1 Tab Tablet) 1 tab PO BID [facility]; Protocol Last Admin: 01/01/22 21:33 Dose: 1 tab Documented by: Sodium Chloride (0.9 % Sodium Chloride Flush 3 Ml Syringe) 3 ml IVFLUSH QSHIFT [facility] Last Admin: 01/02/22 08:10 Dose: 3 ml Documented by: Spironolactone (Spironolactone 25 Mg Tablet) 25 mg PO DAILY [facility]; Protocol Last Admin: 01/01/22 08:14 Dose: 25 mg Documented by: Tamsulosin HCl (Tamsulosin Hcl 0.4 Mg Capsule) 0.4 mg PO DAILY@1730 [facility] Last Admin: 01/01/22 17:53 Dose: 0.4 mg Documented by: Time Spent With Patient Time: Total time spent is greater than 50% in coordination of care (as documented) at patient's floor/unit and/or counseling patient: Time with patient: 25 - 35 minutes Quality Stroke Does the patient have a stroke diagnosis?: No VTE Prior VTE?: No VTE Risk Level:: Medical - moderate - high VTE Device Contraindication: Treatment Not Indicated VTE Drug Contraindication: N/A - Med Ordered
[2022-01-02 11:48] LABS: Glucose, Whole Blood 130 mg/dL (60-115)
[2022-01-02] MEDS: Bumetanide 1 MG TABLET 2 MG PO (11:54)
[2022-01-02] MEDS: DAPTOmycin 500 MG in 0.9 % Sodium Chloride 50 ML 100 MG IV (11:54)
[2022-01-02] MEDS: Sacubitril/Valsartan 24/26 1 TAB TABLET PO (11:56)
--- NOTE | 2022-01-02 13:25 | P.PNIM_ITS ---
Subjective Subjective Date of Service: 01/02/22 Interval History: No acute issues overnight. Pain control adequate Review of Systems Denies chest pain Denies shortness of breath Denies nausea vomiting diarrhea denies lower extremity pain Physical Exam Vital Signs: Vital Signs: Last Vital Signs Temp 97.2 F 01/02/22 11:56 Pulse 69 01/02/22 11:56 Resp 18 01/02/22 11:56 BP 101/56 L 01/02/22 11:56 Pulse Ox 97 01/02/22 11:56 BMI result Body Mass Index 28.3 Const: Other: Awake alert oriented x3 no acute distress Resp: Other: Clear to auscultation bilaterally. No rales rhonchi or wheezes noted Cardio: Other: No S4; positive S1-S2; no S3; no murmurs or gallops GI: Other: Soft nontender nondistended with normoactive bowel sounds like 4 quadrants. Neuro: Other: Cranial nerves 2-12 grossly intact as tested. 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 Objective Data Active Medications Acetaminophen (Acetaminophen 325 Mg Tablet) 650 mg PO Q6H PRN PRN Reason: Pain, Mild (Pain Scale 1-3) Albuterol Sulfate (Albuterol Sulfate (0.083%) 2.5 Mg/3 Ml Vial.Neb) 2.5 mg INH BONNIE Q4H PRN PRN Reason: Shortness Of Breath Or Wheezing Aspirin (Aspirin Enteric Coated 81 Mg Tablet.) 81 mg PO DAILY [facility] Last Admin: 01/02/22 08:10 Dose: 81 mg Documented by: TY Bumetanide (Bumetanide 1 Mg Tablet) 2 mg PO DAILY [facility]; Protocol Last Admin: 01/02/22 11:54 Dose: 2 mg Documented by: TY Carvedilol (Carvedilol 3.125 Mg Tablet) 3.125 mg PO BID [facility]; Protocol Clopidogrel Bisulfate (Clopidogrel Bisulfate 75 Mg Tablet) 75 mg PO DAILY [facility] Last Admin: 01/02/22 08:10 Dose: 75 mg Documented by: TY Dextrose (Dextrose 50 % 25 Gm/50 Ml Syringe) 25 gm IVPUSH Q15M PRN; Protocol PRN Reason: per Hypoglycemia Standing Ord. Docusate Sodium (Docusate Sodium 100 Mg Capsule) 100 mg PO DAILY PRN PRN Reason: Constipation Enoxaparin Sodium (Enoxaparin Sodium 40 Mg/0.4 Ml Syringe) 40 mg SUBCUT Q24H [facility] Last Admin: 01/02/22 06:07 Dose: 40 mg Documented by: SCOOTER Fluticasone Propionate (Fluticasone Propionate Nasal 16 Gm [place]) 1 spray NOSTRIL-B DAILY [facility] Last Admin: 01/02/22 08:12 Dose: Not Given Documented by: TY Non-Admin Reason: Patient Refused Fluticasone/Vilanterol (Fluticasone/Vilanterol 200/25 Blst.W.Dev) 1 puff INHALE RDAILY [facility] Last Admin: 01/02/22 07:43 Dose: 1 puff Documented by: RICKEY Gabapentin (Gabapentin 100 Mg Capsule) 200 mg PO TID [facility] Last Admin: 01/02/22 08:10 Dose: 200 mg Documented by: TY Glucose (Glucose Gel 15 Gm Gel..Gram.) 15 gm PO Q15M PRN; Protocol PRN Reason: per Hypoglycemia Standing Ord. Hydromorphone HCl (Hydromorphone Hcl 0.5 Mg/0.5 Ml Syringe) 0.5 mg IVPUSH Q4H PRN; Protocol PRN Reason: Breakthrough Pain Last Admin: 01/01/22 11:43 Dose: 0.5 mg Documented by: TY Daptomycin 500 mg/ Sodium (Chloride) 60 mls @ 100 mls/hr IV Q24H [facility] Last Infusion: 01/02/22 13:02 Dose: 0 mls/hr Documented by: TY Insulin Glargine (Insulin Glargine,Hum.Rec.Anlog 100 Unit/Ml 10 Ml Vial) 12 unit SUBCUT BEDTIME [facility] Last Admin: 01/01/22 21:32 Dose: 12 unit Documented by: SCOOTER Insulin Human Lispro (Insulin Lispro 100 Unit/Ml 3 Ml Vial) 0 unit SUBCUT QIDACHS [facility]; Protocol Last Admin: 01/02/22 11:54 Dose: Not Given Documented by: TY Non-Admin Reason: No Insulin Coverage Lidocaine (Lidocaine 4 % Patch Adh..Patch) 1 patch TRANSDERMA DAILY [facility]; Protocol Last Admin: 01/02/22 08:10 Dose: 1 patch Documented by: TY Loratadine (Loratadine 10 Mg Tablet) 10 mg PO DAILY [facility] Last Admin: 01/02/22 08:10 Dose: 10 mg Documented by: TY Melatonin (Melatonin 3 Mg Tablet) 6 mg PO BEDTIME PRN PRN Reason: Insomnia Last Admin: 01/01/22 21:32 Dose: 6 mg Documented by: SCOOTER Methadone HCl (Methadone Hcl 20 Mg/2 Ml Oral.Conc) 50 mg PO DAILY [facility] Last Admin: 01/02/22 08:10 Dose: 50 mg Documented by: TY Montelukast Sodium (Montelukast Sodium 10 Mg Tablet) 10 mg PO BEDTIME [facility] Last Admin: 01/01/22 21:32 Dose: 10 mg Documented by: SCOOTER Sacubitril/Valsartan (Sacubitril/Valsartan 1 Tab Tablet) 1 tab PO BID [facility]; Protocol Last Admin: 01/02/22 11:56 Dose: 1 tab Documented by: TY Sodium Chloride (0.9 % Sodium Chloride Flush 3 Ml Syringe) 3 ml IVFLUSH QSHIFT [facility] Last Admin: 01/02/22 08:10 Dose: 3 ml Documented by: TY Tamsulosin HCl (Tamsulosin Hcl 0.4 Mg Capsule) 0.4 mg PO DAILY@1730 [facility] Last Admin: 01/01/22 17:53 Dose: 0.4 mg Documented by: TY Labs CBC & Chem 7: 12/31/21 06:26 01/02/22 06:37 Labs: Laboratory Results - last 24 hr 01/01/22 01/01/22 01/02/22 16:40 19:59 06:37 Anion Gap 16 Estim Creat Clear Calc 63.2 Estimated GFR 56 POC Glucose 127 H 214 H Random Glucose 164 H Calcium 8.6 Magnesium 1.8 B-Natriuretic Peptide 01/02/22 01/02/22 01/02/22 06:37 07:31 11:08 Anion Gap Estim Creat Clear Calc Estimated GFR POC Glucose 224 H 130 H Random Glucose Calcium Magnesium B-Natriuretic Peptide 2006 H Microbiology Microbiology Results: Microbiology 12/30/21 10:24 Blood Culture - Preliminary Blood - Venous No growth after 48 hours. 12/30/21 10:24 Blood Culture - Preliminary Blood - Venous No growth after 48 hours. Assessment and Plan (1) Acute on chronic HFrEF (heart failure with reduced ejection fraction): Status: Acute (2) Osteomyelitis: Status: Acute (3) Peripheral arterial disease: Status: Acute Plan hospital d#3 51yo M with ischemic cardiomyopathy admitted for CHF exacerbation and also found to have DM foot ulcer with osteomyelitis 1.Acute/chronic HFrEF LVEF 15-20%, grade 3 diastolic dysfunction 10/08/21 -clinically asymptomatic despite rise in BNP after DC Lasix drip -continue Bumex as ordered -as per Cardiology, will decrease Coreg to 3.25 mg b.i.d. and DC spironolactone -follow renals/divalents -adjust therapies as BP dictates 2.Diabetic foot ulcer with acute osteomyelitis - blood cultures negative thus fa; daptomycin (). will order PICC - wound debrided by Dr Lima this am(see note) 3. PAD( Left posterior tibial artery occlusion) - discussed with Vasc Surg. will need outpt f/u in 1-2 wk for angiogram/stenting - continue current therapies 4. COPD - acceptable control on current therapies - adjust as indicated 5. DMII ( A1c 6.6) - basal/bolus insulin VTE - LMWH Full Code Quality Stroke Does the patient have a stroke diagnosis?: No VTE Prior VTE?: No VTE Risk Level:: Medical - moderate - high VTE Device Contraindication: Treatment Not Indicated VTE Drug Contraindication: N/A - Med Ordered
[2022-01-02 16:44] LABS: Glucose, Whole Blood 141 mg/dL (60-115)
[2022-01-02] MEDS: Tamsulosin HCL 0.4 MG CAPSULE PO (17:21)
[2022-01-02 20:18] LABS: Glucose, Whole Blood 224 mg/dL (60-115)
[2022-01-02] MEDS: Insulin Glargine,Hum.rec.anlog 100 UNIT/ML 10 ML VIAL 12 UNIT SUBCUT (20:22)
[2022-01-02] MEDS: Montelukast Sodium 10 MG TABLET PO (20:22)
--- NOTE | 2022-01-02 21:00 | PC.NURSE ---
Pt BP 95/45, HR 70. Asymptomatic. MD made aware. Order to hold 21:00 PM dose Coreg 3.125mg and Entresto 24/26mg.
[2022-01-03] VITALS (7 sets, daily range): BP systolic 103–152; BP diastolic 59–122; PULSE 66–77; RESP 16–20; TEMP 36.1–36.5; O2SAT 95–99
[2022-01-03] MEDS: HYDROmorphone HCl 0.5 MG/0.5 ML SYRINGE IVPUSH (00:44)
[2022-01-03] MEDS: Enoxaparin Sodium 40 MG/0.4 ML SYRINGE SUBCUT (04:31)
[2022-01-03 07:35] LABS: Glucose, Whole Blood 177 mg/dL (60-115)
[2022-01-03] MEDS: Fluticasone/Vilanterol 200/25 BLST.W.DEV 1 PUFF INHALE (07:40)
[2022-01-03] MEDS: Insulin Lispro 100 UNIT/ML 3 ML VIAL SUBCUT ×2 (08:29→16:44)
[2022-01-03] MEDS: methADONE HCl 20 MG/2 ML ORAL.CONC 50 MG PO (08:30)
[2022-01-03] MEDS: Aspirin Enteric Coated 81 MG TABLET.DR PO (08:30)
[2022-01-03] MEDS: Bumetanide 1 MG TABLET 2 MG PO (08:30)
[2022-01-03] MEDS: Gabapentin 100 MG CAPSULE 200 MG PO ×3 (08:30→21:22)
[2022-01-03] MEDS: carvediloL 3.125 MG TABLET PO ×2 (08:30→21:23)
[2022-01-03] MEDS: Sacubitril/Valsartan 24/26 1 TAB TABLET PO ×2 (08:30→21:22)
[2022-01-03] MEDS: Loratadine 10 MG TABLET PO (08:30)
[2022-01-03] MEDS: Clopidogrel Bisulfate 75 MG TABLET PO (08:30)
[2022-01-03] MEDS: Lidocaine 4 % Patch ADH..PATCH 1 PATCH TRANSDERMA (08:31)
[2022-01-03 08:39] LABS: MANUAL DIFF FLAG NO
[2022-01-03 08:45] LABS: Basophils Percent Auto 0.5 % (0-2); Eosinophils Absolute Auto 0.3 X10*3/uL (0.0-0.4); Eosinophils Percent Auto 3.5 % (0-4); Hematocrit 44.7 % (42.0-52.0); Hemoglobin 13.6 g/dl (14.0-18.0); Imm Gran Abs Auto 0.02 X10*3/uL (0.00-0.03); Imm Gran Pct Auto 0.3 % (0.0-0.4); Lymphocytes Absolute Auto 1.4 X10*3/uL (1.2-4.9); Lymphocytes Percent Auto 18.7 % (20-40); Mean Corpuscular HGB Conc 30.4 g/dl (31.0-36.0); Mean Corpuscular Hemoglobin 25.9 pg (27.0-33.0); Mean Corpuscular Volume 85.1 fL (80.0-98.0); Mean Platelet Volume 9.9 fL (9.4-12.4); Neutrophils Absolute Auto 4.8 x10*3/uL (2.0-8.3); Platelet Count 240 X10*3/uL (160-400); Red Blood Count 5.25 X10*6/uL (4.60-5.80); Red Cell Distribution Width 17.1 % (11.0-16.0); White Blood Count 7.4 X10*3/uL (4.8-10.8)
[2022-01-03 09:15] LABS: Alanine Aminotransferase 33 U/L (0-40); Albumin Level 3.2 g/dL (3.5-5.0); Alkaline Phosphatase 90 U/L (39-117); Anion Gap 14 (12-20); Aspartate Amino Transferase 41 U/L (5-37); Bilirubin Total 0.5 mg/dL (0.0-1.0); Blood Urea Nitrogen 40 mg/dL (9-16); Calcium 9.1 mg/dL (8.4-10.2); Carbon Dioxide 29 mmol/L (22-29); Chloride 92 mmol/L (96-108); Creatinine Clr Calc Pharmacy 71.8; Estimated Glomerular Filt Rate > 60; Glucose Fasting 154 mg/dL (60-99); Potassium 4.7 mmol/L (3.3-5.1); Sodium 130 mmol/L (135-145); Total Protein 6.7 g/dL (6.5-8.0)
[2022-01-03] MEDS: DAPTOmycin 500 MG in 0.9 % Sodium Chloride 50 ML 100 MG IV (10:16)
[2022-01-03] MEDS: 0.9 % Sodium Chloride Flush 3 ML SYRINGE IVFLUSH ×3 (10:17→21:24)
[2022-01-03 11:21] LABS: Glucose, Whole Blood 68 mg/dL (60-115)
--- NOTE | 2022-01-03 15:28 | P.PNIM_ITS ---
Subjective Subjective Date of Service: 01/03/22 Interval History: No acute issues overnight. Pain control adequate Review of Systems Denies chest pain Denies shortness of breath Denies nausea vomiting diarrhea denies lower extremity pain Physical Exam Vital Signs: Vital Signs: Last Vital Signs Temp 97.7 F 01/03/22 15:03 Pulse 66 01/03/22 15:03 Resp 16 01/03/22 15:03 BP 103/59 L 01/03/22 15:03 Pulse Ox 97 01/03/22 15:03 BMI result Body Mass Index 28.3 Const: Other: Awake alert oriented x3 no acute distress Resp: Other: Clear to auscultation bilaterally. No rales rhonchi or wheezes noted Cardio: Other: No S4; positive S1-S2; no S3; no murmurs or gallops GI: Other: Soft nontender nondistended with normoactive bowel sounds like 4 quadrants. Neuro: Other: Cranial nerves 2-12 grossly intact as tested. 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 Objective Data Active Medications Acetaminophen (Acetaminophen 325 Mg Tablet) 650 mg PO Q6H PRN PRN Reason: Pain, Mild (Pain Scale 1-3) Albuterol Sulfate (Albuterol Sulfate (0.083%) 2.5 Mg/3 Ml Vial.Neb) 2.5 mg INH BONNIE Q4H PRN PRN Reason: Shortness Of Breath Or Wheezing Aspirin (Aspirin Enteric Coated 81 Mg Tablet.) 81 mg PO DAILY [facility] Last Admin: 01/03/22 08:30 Dose: 81 mg Documented by: LON Bumetanide (Bumetanide 1 Mg Tablet) 2 mg PO DAILY [facility]; Protocol Last Admin: 01/03/22 08:30 Dose: 2 mg Documented by: LON Carvedilol (Carvedilol 3.125 Mg Tablet) 3.125 mg PO BID [facility]; Protocol Last Admin: 01/03/22 08:30 Dose: 3.125 mg Documented by: LON Clopidogrel Bisulfate (Clopidogrel Bisulfate 75 Mg Tablet) 75 mg PO DAILY [facility] Last Admin: 01/03/22 08:30 Dose: 75 mg Documented by: LON Dextrose (Dextrose 50 % 25 Gm/50 Ml Syringe) 25 gm IVPUSH Q15M PRN; Protocol PRN Reason: per Hypoglycemia Standing Ord. Docusate Sodium (Docusate Sodium 100 Mg Capsule) 100 mg PO DAILY PRN PRN Reason: Constipation Enoxaparin Sodium (Enoxaparin Sodium 40 Mg/0.4 Ml Syringe) 40 mg SUBCUT Q24H [facility] Last Admin: 01/03/22 04:31 Dose: 40 mg Documented by: LYNN Fluticasone Propionate (Fluticasone Propionate Nasal 16 Gm [place]) 1 spray NOSTRIL-B DAILY [facility] Last Admin: 01/03/22 10:16 Dose: Not Given Documented by: LON Non-Admin Reason: Patient Refused Fluticasone/Vilanterol (Fluticasone/Vilanterol 200/25 Blst.W.Dev) 1 puff INHALE RDAILY [facility] Last Admin: 01/03/22 07:40 Dose: 1 puff Documented by: ROSANNE Gabapentin (Gabapentin 100 Mg Capsule) 200 mg PO TID [facility] Last Admin: 01/03/22 08:30 Dose: 200 mg Documented by: LON Glucose (Glucose Gel 15 Gm Gel..Gram.) 15 gm PO Q15M PRN; Protocol PRN Reason: per Hypoglycemia Standing Ord. Hydromorphone HCl (Hydromorphone Hcl 0.5 Mg/0.5 Ml Syringe) 0.5 mg IVPUSH Q4H PRN; Protocol PRN Reason: Breakthrough Pain Last Admin: 01/03/22 00:44 Dose: 0.5 mg Documented by: LYNN Daptomycin 500 mg/ Sodium (Chloride) 60 mls @ 100 mls/hr IV Q24H [facility] Last Infusion: 01/03/22 11:56 Dose: 0 mls/hr Documented by: LON Insulin Glargine (Insulin Glargine,Hum.Rec.Anlog 100 Unit/Ml 10 Ml Vial) 12 unit SUBCUT BEDTIME [facility] Last Admin: 01/02/22 20:22 Dose: 12 unit Documented by: LYNN Insulin Human Lispro (Insulin Lispro 100 Unit/Ml 3 Ml Vial) 0 unit SUBCUT QIDACHS [facility]; Protocol Last Admin: 01/03/22 11:32 Dose: Not Given Documented by: LON Non-Admin Reason: No Insulin Coverage Lidocaine (Lidocaine 4 % Patch Adh..Patch) 1 patch TRANSDERMA DAILY [facility]; Protocol Last Admin: 01/03/22 08:31 Dose: 1 patch Documented by: LON Loratadine (Loratadine 10 Mg Tablet) 10 mg PO DAILY [facility] Last Admin: 01/03/22 08:30 Dose: 10 mg Documented by: LON Melatonin (Melatonin 3 Mg Tablet) 6 mg PO BEDTIME PRN PRN Reason: Insomnia Last Admin: 01/01/22 21:32 Dose: 6 mg Documented by: SCOOTER Methadone HCl (Methadone Hcl 20 Mg/2 Ml Oral.Conc) 50 mg PO DAILY [facility] Last Admin: 01/03/22 08:30 Dose: 50 mg Documented by: LON Montelukast Sodium (Montelukast Sodium 10 Mg Tablet) 10 mg PO BEDTIME [facility] Last Admin: 01/02/22 20:22 Dose: 10 mg Documented by: ANTOIC Sacubitril/Valsartan (Sacubitril/Valsartan 1 Tab Tablet) 1 tab PO BID [facility]; Protocol Last Admin: 01/03/22 08:30 Dose: 1 tab Documented by: LON Sodium Chloride (0.9 % Sodium Chloride Flush 3 Ml Syringe) 3 ml IVFLUSH QSHIFT [facility] Last Admin: 01/03/22 10:17 Dose: 3 ml Documented by: LON Tamsulosin HCl (Tamsulosin Hcl 0.4 Mg Capsule) 0.4 mg PO DAILY@1730 [facility] Last Admin: 01/02/22 17:21 Dose: 0.4 mg Documented by: TY Labs CBC & Chem 7: 01/03/22 08:28 01/03/22 08:28 Labs: Laboratory Results - last 24 hr 12/30/21 12/31/21 01/01/22 02:35 06:26 06:16 MCV MCH MCHC RDW Plt Count MPV Immature Gran % (Auto) Neut % (Auto) Lymph % (Auto) [place] % (Auto) Eos % (Auto) Baso % (Auto) Lymph # (Auto) [place] # (Auto) Eos # (Auto) Baso # (Auto) Abs Immat Gran (auto) Absolute Neuts (auto) Absolute Nucleated RBC Nucleated RBC % (auto) Sodium 131 L 133 L 130 L Anion Gap Estim Creat Clear Calc Estimated GFR POC Glucose Fasting Glucose Calcium Total Bilirubin AST ALT Alkaline Phosphatase Total Protein Albumin 01/02/22 01/02/22 01/02/22 06:37 16:06 20:01 MCV MCH MCHC RDW Plt Count MPV Immature Gran % (Auto) Neut % (Auto) Lymph % (Auto) [place] % (Auto) Eos % (Auto) Baso % (Auto) Lymph # (Auto) [place] # (Auto) Eos # (Auto) Baso # (Auto) Abs Immat Gran (auto) Absolute Neuts (auto) Absolute Nucleated RBC Nucleated RBC % (auto) Sodium 130 L Anion Gap Estim Creat Clear Calc Estimated GFR POC Glucose 141 H 224 H Fasting Glucose Calcium Total Bilirubin AST ALT Alkaline Phosphatase Total Protein Albumin 01/03/22 01/03/22 01/03/22 07:31 08:28 08:28 MCV 85.1 MCH 25.9 L MCHC 30.4 L RDW 17.1 H Plt Count 240 MPV 9.9 Immature Gran % (Auto) 0.3 Neut % (Auto) 64.0 Lymph % (Auto) 18.7 L [place] % (Auto) 13.0 H Eos % (Auto) 3.5 Baso % (Auto) 0.5 Lymph # (Auto) 1.4 [place] # (Auto) 1.0 Eos # (Auto) 0.3 Baso # (Auto) 0.0 Abs Immat Gran (auto) 0.02 Absolute Neuts (auto) 4.8 Absolute Nucleated RBC 0.000 Nucleated RBC % (auto) 0.0 Sodium 130 L Anion Gap 14 Estim Creat Clear Calc 71.8 Estimated GFR > 60 POC Glucose 177 H Fasting Glucose 154 H D Calcium 9.1 Total Bilirubin 0.5 AST 41 H D ALT 33 Alkaline Phosphatase 90 Total Protein 6.7 Albumin 3.2 L 01/03/22 11:04 MCV MCH MCHC RDW Plt Count MPV Immature Gran % (Auto) Neut % (Auto) Lymph % (Auto) [place] % (Auto) Eos % (Auto) Baso % (Auto) Lymph # (Auto) [place] # (Auto) Eos # (Auto) Baso # (Auto) Abs Immat Gran (auto) Absolute Neuts (auto) Absolute Nucleated RBC Nucleated RBC % (auto) Sodium Anion Gap Estim Creat Clear Calc Estimated GFR POC Glucose 68 Fasting Glucose Calcium Total Bilirubin AST ALT Alkaline Phosphatase Total Protein Albumin Assessment and Plan (1) Acute on chronic HFrEF (heart failure with reduced ejection fraction): Status: Acute (2) Peripheral arterial disease: Status: Acute (3) Osteomyelitis: Status: Acute Plan hospital d#3 51yo M with ischemic cardiomyopathy admitted for CHF exacerbation and also found to have DM foot ulcer with osteomyelitis 1.Acute/chronic HFrEF LVEF 15-20%, grade 3 diastolic dysfunction 10/08/21 -clinically asymptomatic despite rise in BNP after DC Lasix drip -continue Bumex as ordered -as per Cardiology, will decrease Coreg to 3.25 mg b.i.d. and DC spironolactone -follow renals/divalents -adjust therapies as BP dictates 2.Diabetic foot ulcer with acute osteomyelitis - blood cultures negative thus fa; daptomycin (). will order PICC - wound debrided by Dr Lima this am(see note) 3. PAD( Left posterior tibial artery occlusion) - discussed with Vasc Surg. will need outpt f/u in 1-2 wk for angiogram/ stenting - continue current therapies 4. COPD - acceptable control on current therapies - adjust as indicated 5. DMII ( A1c 6.6) - basal/bolus insulin VTE - LMWH Full Code Quality Stroke Does the patient have a stroke diagnosis?: No VTE Prior VTE?: No VTE Risk Level:: Medical - moderate - high VTE Device Contraindication: Treatment Not Indicated VTE Drug Contraindication: N/A - Med Ordered
[2022-01-03 16:26] LABS: Glucose, Whole Blood 181 mg/dL (60-115)
[2022-01-03] MEDS: Tamsulosin HCL 0.4 MG CAPSULE PO (16:44)
[2022-01-03 20:13] LABS: Glucose, Whole Blood 137 mg/dL (60-115)
[2022-01-03] MEDS: Montelukast Sodium 10 MG TABLET PO (21:23)
[2022-01-03] MEDS: Insulin Glargine,Hum.rec.anlog 100 UNIT/ML 10 ML VIAL 12 UNIT SUBCUT (21:24)
[2022-01-04] VITALS (7 sets, daily range): BP systolic 104–116; BP diastolic 62–68; PULSE 64–85; RESP 14–20; TEMP 36.1–37.1; O2SAT 94–100; BMI 27.3
[2022-01-04] MEDS: Enoxaparin Sodium 40 MG/0.4 ML SYRINGE SUBCUT (05:49)
[2022-01-04] MEDS: Fluticasone/Vilanterol 200/25 BLST.W.DEV 1 PUFF INHALE (07:37)
[2022-01-04 07:38] LABS: Glucose, Whole Blood 204 mg/dL (60-115)
[2022-01-04 08:01] LABS: MANUAL DIFF FLAG NO
[2022-01-04 08:04] LABS: Basophils Percent Auto 0.3 % (0-2); Eosinophils Absolute Auto 0.2 X10*3/uL (0.0-0.4); Eosinophils Percent Auto 3.4 % (0-4); Hematocrit 39.4 % (42.0-52.0); Hemoglobin 12.1 g/dl (14.0-18.0); Imm Gran Abs Auto 0.02 X10*3/uL (0.00-0.03); Imm Gran Pct Auto 0.3 % (0.0-0.4); Lymphocytes Absolute Auto 1.2 X10*3/uL (1.2-4.9); Lymphocytes Percent Auto 17.8 % (20-40); Mean Corpuscular HGB Conc 30.7 g/dl (31.0-36.0); Mean Corpuscular Volume 84.7 fL (80.0-98.0); Monocytes Absolute Auto 0.9 X10*3/uL (0.1-1.2); Monocytes Percent Auto 13.5 % (2-11); Neutrophils Absolute Auto 4.3 x10*3/uL (2.0-8.3); Neutrophils Percent Auto 64.7 % (45-73); Platelet Count 254 X10*3/uL (160-400); Red Blood Count 4.65 X10*6/uL (4.60-5.80); Red Cell Distribution Width 16.8 % (11.0-16.0); White Blood Count 6.7 X10*3/uL (4.8-10.8)
[2022-01-04] MEDS: Insulin Lispro 100 UNIT/ML 3 ML VIAL SUBCUT ×2 (08:05→22:18)
[2022-01-04 08:22] LABS: Alanine Aminotransferase 34 U/L (0-40); Albumin Level 3.1 g/dL (3.5-5.0); Alkaline Phosphatase 87 U/L (39-117); Anion Gap 12 (12-20); Aspartate Amino Transferase 48 U/L (5-37); Bilirubin Total 0.4 mg/dL (0.0-1.0); Blood Urea Nitrogen 43 mg/dL (9-16); Carbon Dioxide 31 mmol/L (22-29); Chloride 92 mmol/L (96-108); Creatinine Clr Calc Pharmacy 67.3; Estimated Glomerular Filt Rate > 60; Glucose Fasting 228 mg/dL (60-99); Potassium 4.4 mmol/L (3.3-5.1); Sodium 131 mmol/L (135-145); Total Protein 6.1 g/dL (6.5-8.0)
[2022-01-04] MEDS: 0.9 % Sodium Chloride Flush 3 ML SYRINGE IVFLUSH ×3 (09:33→22:18)
[2022-01-04] MEDS: methADONE HCl 20 MG/2 ML ORAL.CONC 50 MG PO (09:33)
[2022-01-04] MEDS: Aspirin Enteric Coated 81 MG TABLET.DR PO (09:37)
[2022-01-04] MEDS: Gabapentin 100 MG CAPSULE 200 MG PO ×3 (09:37→22:18)
[2022-01-04] MEDS: Sacubitril/Valsartan 24/26 1 TAB TABLET PO ×2 (09:37→22:17)
[2022-01-04] MEDS: Bumetanide 1 MG TABLET 2 MG PO (09:38)
[2022-01-04] MEDS: carvediloL 3.125 MG TABLET PO ×2 (09:38→22:17)
[2022-01-04] MEDS: Clopidogrel Bisulfate 75 MG TABLET PO (09:38)
[2022-01-04] MEDS: Loratadine 10 MG TABLET PO (09:38)
--- NOTE | 2022-01-04 10:17 | P.PNIM_ITS ---
Subjective Subjective Date of Service: 01/04/22 Interval History: No acute issues overnight. Pain control adequate Review of Systems Denies chest pain Denies shortness of breath Denies nausea vomiting diarrhea denies lower extremity pain Physical Exam Vital Signs: Vital Signs: Last Vital Signs Temp 97.0 F 01/04/22 07:00 Pulse 71 01/04/22 07:00 Resp 18 01/04/22 07:37 BP 116/62 01/04/22 07:00 Pulse Ox 95 01/04/22 07:00 BMI result Body Mass Index 27.3 Const: Other: Awake alert oriented x3 no acute distress Resp: Other: Clear to auscultation bilaterally. No rales rhonchi or wheezes noted Cardio: Other: No S4; positive S1-S2; no S3; no murmurs or gallops GI: Other: Soft nontender nondistended with normoactive bowel sounds like 4 quadrants. Neuro: Other: Cranial nerves 2-12 grossly intact as tested. 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 Objective Data Active Medications Acetaminophen (Acetaminophen 325 Mg Tablet) 650 mg PO Q6H PRN PRN Reason: Pain, Mild (Pain Scale 1-3) Albuterol Sulfate (Albuterol Sulfate (0.083%) 2.5 Mg/3 Ml Vial.Neb) 2.5 mg INH BONNIE Q4H PRN PRN Reason: Shortness Of Breath Or Wheezing Aspirin (Aspirin Enteric Coated 81 Mg Tablet.) 81 mg PO DAILY [facility] Last Admin: 01/04/22 09:37 Dose: 81 mg Documented by: MICKY Bumetanide (Bumetanide 1 Mg Tablet) 2 mg PO DAILY [facility]; Protocol Last Admin: 01/04/22 09:38 Dose: 2 mg Documented by: MICKY Carvedilol (Carvedilol 3.125 Mg Tablet) 3.125 mg PO BID [facility]; Protocol Last Admin: 01/04/22 09:38 Dose: 3.125 mg Documented by: MICKY Clopidogrel Bisulfate (Clopidogrel Bisulfate 75 Mg Tablet) 75 mg PO DAILY [facility] Last Admin: 01/04/22 09:38 Dose: 75 mg Documented by: MICKY Dextrose (Dextrose 50 % 25 Gm/50 Ml Syringe) 25 gm IVPUSH Q15M PRN; Protocol PRN Reason: per Hypoglycemia Standing Ord. Docusate Sodium (Docusate Sodium 100 Mg Capsule) 100 mg PO DAILY PRN PRN Reason: Constipation Enoxaparin Sodium (Enoxaparin Sodium 40 Mg/0.4 Ml Syringe) 40 mg SUBCUT Q24H [facility] Last Admin: 01/04/22 05:49 Dose: 40 mg Documented by: MARIAMA Fluticasone Propionate (Fluticasone Propionate Nasal 16 Gm [place]) 1 spray NOSTRIL-B DAILY [facility] Last Admin: 01/04/22 10:04 Dose: Not Given Documented by: MICKY Non-Admin Reason: Patient Refused Fluticasone/Vilanterol (Fluticasone/Vilanterol 200/25 Blst.W.Dev) 1 puff INHALE RDAILY [facility] Last Admin: 01/04/22 07:37 Dose: 1 puff Documented by: ROSANNE Gabapentin (Gabapentin 100 Mg Capsule) 200 mg PO TID [facility] Last Admin: 01/04/22 09:37 Dose: 200 mg Documented by: MICKY Glucose (Glucose Gel 15 Gm Gel..Gram.) 15 gm PO Q15M PRN; Protocol PRN Reason: per Hypoglycemia Standing Ord. Daptomycin 500 mg/ Sodium (Chloride) 60 mls @ 100 mls/hr IV Q24H [facility] Last Infusion: 01/03/22 11:56 Dose: 0 mls/hr Documented by: LON Insulin Glargine (Insulin Glargine,Hum.Rec.Anlog 100 Unit/Ml 10 Ml Vial) 12 unit SUBCUT BEDTIME [facility] Last Admin: 01/03/22 21:24 Dose: 12 unit Documented by: MARIAMA Insulin Human Lispro (Insulin Lispro 100 Unit/Ml 3 Ml Vial) 0 unit SUBCUT QIDACHS [facility]; Protocol Last Admin: 01/04/22 08:05 Dose: 4 unit Documented by: MICKY Lidocaine (Lidocaine 4 % Patch Adh..Patch) 1 patch TRANSDERMA DAILY [facility]; Protocol Last Admin: 01/04/22 09:36 Dose: Not Given Documented by: MICKY Non-Admin Reason: Patient Refused Loratadine (Loratadine 10 Mg Tablet) 10 mg PO DAILY [facility] Last Admin: 01/04/22 09:38 Dose: 10 mg Documented by: MICKY Melatonin (Melatonin 3 Mg Tablet) 6 mg PO BEDTIME PRN PRN Reason: Insomnia Last Admin: 01/01/22 21:32 Dose: 6 mg Documented by: SCOOTER Methadone HCl (Methadone Hcl 20 Mg/2 Ml Oral.Conc) 50 mg PO DAILY [facility] Last Admin: 01/04/22 09:33 Dose: 50 mg Documented by: MICKY Montelukast Sodium (Montelukast Sodium 10 Mg Tablet) 10 mg PO BEDTIME [facility] Last Admin: 01/03/22 21:23 Dose: 10 mg Documented by: MARIAMA Sacubitril/Valsartan (Sacubitril/Valsartan 1 Tab Tablet) 1 tab PO BID [facility]; Protocol Last Admin: 01/04/22 09:37 Dose: 1 tab Documented by: MICKY Sodium Chloride (0.9 % Sodium Chloride Flush 3 Ml Syringe) 3 ml IVFLUSH QSHIFT [facility] Last Admin: 01/04/22 09:33 Dose: 3 ml Documented by: MICKY Tamsulosin HCl (Tamsulosin Hcl 0.4 Mg Capsule) 0.4 mg PO DAILY@1730 [facility] Last Admin: 01/03/22 16:44 Dose: 0.4 mg Documented by: LON Labs CBC & Chem 7: 01/04/22 07:37 01/04/22 07:37 Labs: Laboratory Results - last 24 hr 01/03/22 01/03/22 01/03/22 11:04 16:14 20:05 MCV MCH MCHC RDW Plt Count MPV Immature Gran % (Auto) Neut % (Auto) Lymph % (Auto) [place] % (Auto) Eos % (Auto) Baso % (Auto) Lymph # (Auto) [place] # (Auto) Eos # (Auto) Baso # (Auto) Abs Immat Gran (auto) Absolute Neuts (auto) Absolute Nucleated RBC Nucleated RBC % (auto) Anion Gap Estim Creat Clear Calc Estimated GFR POC Glucose 68 181 H 137 H Fasting Glucose Calcium Total Bilirubin AST ALT Alkaline Phosphatase Total Protein Albumin 01/04/22 01/04/22 01/04/22 07:04 07:37 07:37 MCV 84.7 MCH 26.0 L MCHC 30.7 L RDW 16.8 H Plt Count 254 MPV 10.0 Immature Gran % (Auto) 0.3 Neut % (Auto) 64.7 Lymph % (Auto) 17.8 L [place] % (Auto) 13.5 H Eos % (Auto) 3.4 Baso % (Auto) 0.3 Lymph # (Auto) 1.2 [place] # (Auto) 0.9 Eos # (Auto) 0.2 Baso # (Auto) 0.0 Abs Immat Gran (auto) 0.02 Absolute Neuts (auto) 4.3 Absolute Nucleated RBC 0.000 Nucleated RBC % (auto) 0.0 Anion Gap 12 Estim Creat Clear Calc 67.3 Estimated GFR > 60 POC Glucose 204 H Fasting Glucose 228 H D Calcium 9.0 Total Bilirubin 0.4 AST 48 H ALT 34 Alkaline Phosphatase 87 Total Protein 6.1 L Albumin 3.1 L Assessment and Plan (1) Acute on chronic HFrEF (heart failure with reduced ejection fraction): Status: Acute (2) Osteomyelitis: Status: Acute (3) Peripheral arterial disease: Status: Acute Plan hospital d#3 51yo M with ischemic cardiomyopathy admitted for CHF exacerbation and also found to have DM foot ulcer with osteomyelitis 1.Acute/chronic HFrEF LVEF 15-20%, grade 3 diastolic dysfunction 10/08/21 -well compensated on curent therapies -follow renals/divalents -adjust therapies as BP dictates 2.Diabetic foot ulcer with acute osteomyelitis - blood cultures negative thus fa; daptomycin (). will order PICC when facility available - wound debrided by Dr Lima this am(see note) 3. PAD( Left posterior tibial artery occlusion) - discussed with Vasc Surg. will need outpt f/u in 1-2 wk for angiogram/stenting - continue current therapies 4. COPD - acceptable control on current therapies - adjust as indicated 5. DMII ( A1c 6.6) - basal/bolus insulin VTE - LMWH Full Code Quality Stroke Does the patient have a stroke diagnosis?: No VTE Prior VTE?: No VTE Risk Level:: Medical - moderate - high VTE Device Contraindication: Treatment Not Indicated VTE Drug Contraindication: N/A - Med Ordered
[2022-01-04] MEDS: DAPTOmycin 500 MG in 0.9 % Sodium Chloride 50 ML 60 MG IV (11:04)
[2022-01-04 11:23] LABS: Glucose, Whole Blood 130 mg/dL (60-115)
[2022-01-04 15:42] LABS: Glucose, Whole Blood 150 mg/dL (60-115)
[2022-01-04] MEDS: Tamsulosin HCL 0.4 MG CAPSULE PO (18:00)
[2022-01-04 19:41] LABS: Glucose, Whole Blood 208 mg/dL (60-115)
[2022-01-04] MEDS: Montelukast Sodium 10 MG TABLET PO (22:17)
[2022-01-04] MEDS: Insulin Glargine,Hum.rec.anlog 100 UNIT/ML 10 ML VIAL 12 UNIT SUBCUT (22:18)
[2022-01-05] VITALS (7 sets, daily range): BP systolic 97–123; BP diastolic 44–86; PULSE 60–76; RESP 14–20; TEMP 35.8–36.6; O2SAT 90–100; BMI 27.1
[2022-01-05 06:09] LABS: MANUAL DIFF FLAG NO
[2022-01-05 06:12] LABS: Basophils Percent Auto 0.3 % (0-2); Eosinophils Absolute Auto 0.2 X10*3/uL (0.0-0.4); Eosinophils Percent Auto 3.4 % (0-4); Hematocrit 39.2 % (42.0-52.0); Imm Gran Abs Auto 0.02 X10*3/uL (0.00-0.03); Imm Gran Pct Auto 0.3 % (0.0-0.4); Lymphocytes Absolute Auto 1.2 X10*3/uL (1.2-4.9); Lymphocytes Percent Auto 19.5 % (20-40); Mean Corpuscular HGB Conc 30.6 g/dl (31.0-36.0); Mean Corpuscular Volume 84.8 fL (80.0-98.0); Monocytes Absolute Auto 0.9 X10*3/uL (0.1-1.2); Monocytes Percent Auto 14.3 % (2-11); Neutrophils Absolute Auto 3.7 x10*3/uL (2.0-8.3); Neutrophils Percent Auto 62.2 % (45-73); Platelet Count 255 X10*3/uL (160-400); Red Blood Count 4.62 X10*6/uL (4.60-5.80); Red Cell Distribution Width 16.5 % (11.0-16.0)
[2022-01-05 06:29] LABS: Alanine Aminotransferase 31 U/L (0-40); Albumin Level 3.2 g/dL (3.5-5.0); Alkaline Phosphatase 83 U/L (39-117); Anion Gap 13 (12-20); Aspartate Amino Transferase 41 U/L (5-37); Bilirubin Total 0.4 mg/dL (0.0-1.0); Blood Urea Nitrogen 42 mg/dL (9-16); Calcium 9.3 mg/dL (8.4-10.2); Carbon Dioxide 32 mmol/L (22-29); Chloride 93 mmol/L (96-108); Creatinine Clr Calc Pharmacy 63.7; Estimated Glomerular Filt Rate > 60; Glucose Fasting 129 mg/dL (60-99); Potassium 4.5 mmol/L (3.3-5.1); Sodium 133 mmol/L (135-145); Total Protein 6.3 g/dL (6.5-8.0)
[2022-01-05 07:20] LABS: Glucose, Whole Blood 163 mg/dL (60-115)
[2022-01-05] MEDS: Fluticasone/Vilanterol 200/25 BLST.W.DEV 1 PUFF INHALE (07:43)
[2022-01-05] MEDS: Insulin Lispro 100 UNIT/ML 3 ML VIAL SUBCUT ×2 (08:21→16:40)
[2022-01-05] MEDS: Clopidogrel Bisulfate 75 MG TABLET PO (08:21)
[2022-01-05] MEDS: methADONE HCl 20 MG/2 ML ORAL.CONC 50 MG PO (08:22)
[2022-01-05] MEDS: Loratadine 10 MG TABLET PO (08:24)
[2022-01-05] MEDS: Sacubitril/Valsartan 24/26 1 TAB TABLET PO ×2 (08:25→21:59)
[2022-01-05] MEDS: Gabapentin 100 MG CAPSULE 200 MG PO ×3 (08:25→22:00)
[2022-01-05] MEDS: Bumetanide 1 MG TABLET 2 MG PO (08:25)
[2022-01-05] MEDS: Aspirin Enteric Coated 81 MG TABLET.DR PO (08:26)
[2022-01-05] MEDS: carvediloL 3.125 MG TABLET PO ×2 (08:26→22:00)
[2022-01-05] MEDS: 0.9 % Sodium Chloride Flush 3 ML SYRINGE IVFLUSH ×3 (08:27→22:00)
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
[2022-01-05 11:15] LABS: Glucose, Whole Blood 133 mg/dL (60-115)
--- NOTE | 2022-01-05 11:47 | MHC.CM.PN ---
[facility] is following for bed availability (METHADONE AND LT IV ABT); CM will continue to follow.
[2022-01-05] MEDS: DAPTOmycin 500 MG in 0.9 % Sodium Chloride 50 ML 100 MG IV (12:03)
--- NOTE | 2022-01-05 13:37 | P.PNIM_ITS ---
Subjective Subjective Date of Service: 01/05/22 Interval History: No acute issues overnight. Pain control adequate Review of Systems Denies chest pain Denies shortness of breath Denies nausea vomiting diarrhea denies lower extremity pain Physical Exam Vital Signs: Vital Signs: Last Vital Signs Temp 96.9 F 01/05/22 11:10 Pulse 70 01/05/22 11:10 Resp 20 01/05/22 11:10 BP 123/86 01/05/22 11:10 Pulse Ox 96 01/05/22 11:10 BMI result Body Mass Index 27.1 Const: Other: Awake alert oriented x3 no acute distress Resp: Other: Clear to auscultation bilaterally. No rales rhonchi or wheezes noted Cardio: Other: No S4; positive S1-S2; no S3; no murmurs or gallops GI: Other: Soft nontender nondistended with normoactive bowel sounds like 4 quadrants. Neuro: Other: Cranial nerves 2-12 grossly intact as tested. 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 Objective Data Active Medications Acetaminophen (Acetaminophen 325 Mg Tablet) 650 mg PO Q6H PRN PRN Reason: Pain, Mild (Pain Scale 1-3) Albuterol Sulfate (Albuterol Sulfate (0.083%) 2.5 Mg/3 Ml Vial.Neb) 2.5 mg INH BONNIE Q4H PRN PRN Reason: Shortness Of Breath Or Wheezing Aspirin (Aspirin Enteric Coated 81 Mg Tablet.) 81 mg PO DAILY [facility] Last Admin: 01/05/22 08:26 Dose: 81 mg Documented by: PEDRO Bumetanide (Bumetanide 1 Mg Tablet) 2 mg PO DAILY [facility]; Protocol Last Admin: 01/05/22 08:25 Dose: 2 mg Documented by: PEDRO Carvedilol (Carvedilol 3.125 Mg Tablet) 3.125 mg PO BID [facility]; Protocol Last Admin: 01/05/22 08:26 Dose: 3.125 mg Documented by: PEDRO Clopidogrel Bisulfate (Clopidogrel Bisulfate 75 Mg Tablet) 75 mg PO DAILY [facility] Last Admin: 01/05/22 08:21 Dose: 75 mg Documented by: PEDRO Dextrose (Dextrose 50 % 25 Gm/50 Ml Syringe) 25 gm IVPUSH Q15M PRN; Protocol PRN Reason: per Hypoglycemia Standing Ord. Docusate Sodium (Docusate Sodium 100 Mg Capsule) 100 mg PO DAILY PRN PRN Reason: Constipation Enoxaparin Sodium (Enoxaparin Sodium 40 Mg/0.4 Ml Syringe) 40 mg SUBCUT Q24H [facility] Last Admin: 01/05/22 05:47 Dose: Not Given Documented by: EDWARD Non-Admin Reason: Patient Refused Comments: pt refused after education Fluticasone Propionate (Fluticasone Propionate Nasal 16 Gm [place]) 1 spray NOSTRIL-B DAILY [facility] Last Admin: 01/05/22 08:29 Dose: Not Given Documented by: PEDRO Non-Admin Reason: Patient Refused Fluticasone/Vilanterol (Fluticasone/Vilanterol 200/25 Blst.W.Dev) 1 puff INHALE RDAILY [facility] Last Admin: 01/05/22 07:43 Dose: 1 puff Documented by: ROSANNE Gabapentin (Gabapentin 100 Mg Capsule) 200 mg PO TID [facility] Last Admin: 01/05/22 08:25 Dose: 200 mg Documented by: PEDRO Glucose (Glucose Gel 15 Gm Gel..Gram.) 15 gm PO Q15M PRN; Protocol PRN Reason: per Hypoglycemia Standing Ord. Daptomycin 500 mg/ Sodium (Chloride) 60 mls @ 100 mls/hr IV Q24H [facility] Last Infusion: 01/05/22 13:08 Dose: 0 mls/hr Documented by: PEDRO Insulin Glargine (Insulin Glargine,Hum.Rec.Anlog 100 Unit/Ml 10 Ml Vial) 12 unit SUBCUT BEDTIME [facility] Last Admin: 01/04/22 22:18 Dose: 12 unit Documented by: SOM Insulin Human Lispro (Insulin Lispro 100 Unit/Ml 3 Ml Vial) 0 unit SUBCUT QIDACHS [facility]; Protocol Last Admin: 01/05/22 12:06 Dose: Not Given Documented by: PEDRO Non-Admin Reason: No Insulin Coverage Lidocaine (Lidocaine 4 % Patch Adh..Patch) 1 patch TRANSDERMA DAILY [facility]; Protocol Last Admin: 01/05/22 08:28 Dose: Not Given Documented by: PEDRO Non-Admin Reason: Patient Refused Loratadine (Loratadine 10 Mg Tablet) 10 mg PO DAILY [facility] Last Admin: 01/05/22 08:24 Dose: 10 mg Documented by: PEDRO Melatonin (Melatonin 3 Mg Tablet) 6 mg PO BEDTIME PRN PRN Reason: Insomnia Last Admin: 01/01/22 21:32 Dose: 6 mg Documented by: SCOOTER Methadone HCl (Methadone Hcl 20 Mg/2 Ml Oral.Conc) 50 mg PO DAILY [facility] Last Admin: 01/05/22 08:22 Dose: 50 mg Documented by: PEDRO Montelukast Sodium (Montelukast Sodium 10 Mg Tablet) 10 mg PO BEDTIME [facility] Last Admin: 01/04/22 22:17 Dose: 10 mg Documented by: SOM Sacubitril/Valsartan (Sacubitril/Valsartan 1 Tab Tablet) 1 tab PO BID [facility]; Protocol Last Admin: 01/05/22 08:25 Dose: 1 tab Documented by: PEDRO Sodium Chloride (0.9 % Sodium Chloride Flush 3 Ml Syringe) 3 ml IVFLUSH QSHIFT [facility] Last Admin: 01/05/22 08:27 Dose: 3 ml Documented by: PEDRO Tamsulosin HCl (Tamsulosin Hcl 0.4 Mg Capsule) 0.4 mg PO DAILY@1730 [facility] Last Admin: 01/04/22 18:00 Dose: 0.4 mg Documented by: MICKY Labs CBC & Chem 7: 01/05/22 05:56 01/05/22 05:56 Labs: Laboratory Results - last 24 hr 01/04/22 01/04/22 01/05/22 15:22 19:24 05:56 MCV 84.8 MCH 26.0 L MCHC 30.6 L RDW 16.5 H Plt Count 255 MPV 10.0 Immature Gran % (Auto) 0.3 Neut % (Auto) 62.2 Lymph % (Auto) 19.5 L Spink % (Auto) 14.3 H Eos % (Auto) 3.4 Baso % (Auto) 0.3 Lymph # (Auto) 1.2 [place]ink # (Auto) 0.9 Eos # (Auto) 0.2 Baso # (Auto) 0.0 Abs Immat Gran (auto) 0.02 Absolute Neuts (auto) 3.7 Absolute Nucleated RBC 0.000 Nucleated RBC % (auto) 0.0 Anion Gap Estim Creat Clear Calc Estimated GFR POC Glucose 150 H 208 H Fasting Glucose Calcium Total Bilirubin AST ALT Alkaline Phosphatase Total Protein Albumin 01/05/22 01/05/22 01/05/22 05:56 07:11 11:10 MCV MCH MCHC RDW Plt Count MPV Immature Gran % (Auto) Neut % (Auto) Lymph % (Auto) [place]ink % (Auto) Eos % (Auto) Baso % (Auto) Lymph # (Auto) Spink # (Auto) Eos # (Auto) Baso # (Auto) Abs Immat Gran (auto) Absolute Neuts (auto) Absolute Nucleated RBC Nucleated RBC % (auto) Anion Gap 13 Estim Creat Clear Calc 63.7 Estimated GFR > 60 POC Glucose 163 H 133 H Fasting Glucose 129 H D Calcium 9.3 Total Bilirubin 0.4 AST 41 H ALT 31 Alkaline Phosphatase 83 Total Protein 6.3 L Albumin 3.2 L Microbiology Microbiology Results: Microbiology 12/30/21 10:24 Blood Culture - Final Blood - Venous No growth after 5 days. 12/30/21 10:24 Blood Culture - Final Blood - Venous No growth after 5 days. Assessment and Plan (1) Acute on chronic HFrEF (heart failure with reduced ejection fraction): Status: Acute (2) Osteomyelitis: Status: Acute (3) Peripheral vascular disease: Status: Acute Plan 51yo M with ischemic cardiomyopathy admitted for CHF exacerbation and also found to have DM foot ulcer with osteomyelitis 1.Acute/chronic HFrEF LVEF 15-20%, grade 3 diastolic dysfunction 10/08/21 -well compensated on curent therapies -follow renals/divalents -adjust therapies as BP dictates 2.Diabetic foot ulcer with acute osteomyelitis - blood cultures negative thus fa; daptomycin (). will order PICC when facility available - wound debrided by Dr Lima this am(see note) 3. PAD( Left posterior tibial artery occlusion) - discussed with Vasc Surg. will need outpt f/u in 1-2 wk for angiogram/stenting - continue current therapies 4. COPD - acceptable control on current therapies - adjust as indicated 5. DMII ( A1c 6.6) - basal/bolus insulin VTE - LMWH Full Code Quality Stroke Does the patient have a stroke diagnosis?: No VTE Prior VTE?: No VTE Risk Level:: Medical - moderate - high VTE Device Contraindication: Treatment Not Indicated VTE Drug Contraindication: N/A - Med Ordered
[2022-01-05 15:53] LABS: Glucose, Whole Blood 193 mg/dL (60-115)
[2022-01-05] MEDS: Tamsulosin HCL 0.4 MG CAPSULE PO (16:38)
[2022-01-05 19:49] LABS: Glucose, Whole Blood 132 mg/dL (60-115)
[2022-01-05] MEDS: Insulin Glargine,Hum.rec.anlog 100 UNIT/ML 10 ML VIAL 12 UNIT SUBCUT (21:59)
[2022-01-05] MEDS: Montelukast Sodium 10 MG TABLET PO (22:00)
[2022-01-06] VITALS (7 sets, daily range): BP systolic 92–119; BP diastolic 56–76; PULSE 56–73; RESP 14–18; TEMP 35.9–36.9; O2SAT 95–100; BMI 27.1
[2022-01-06] MEDS: Fluticasone/Vilanterol 200/25 BLST.W.DEV 1 PUFF INHALE (07:30)
[2022-01-06 07:38] LABS: Glucose, Whole Blood 112 mg/dL (60-115)
[2022-01-06] MEDS: methADONE HCl 20 MG/2 ML ORAL.CONC 50 MG PO (10:13)
[2022-01-06] MEDS: Loratadine 10 MG TABLET PO (10:15)
[2022-01-06] MEDS: Sacubitril/Valsartan 24/26 1 TAB TABLET PO ×2 (10:15→21:12)
[2022-01-06] MEDS: Bumetanide 1 MG TABLET 2 MG PO (10:15)
[2022-01-06] MEDS: Gabapentin 100 MG CAPSULE 200 MG PO ×3 (10:16→21:12)
[2022-01-06] MEDS: Aspirin Enteric Coated 81 MG TABLET.DR PO (10:16)
[2022-01-06] MEDS: Clopidogrel Bisulfate 75 MG TABLET PO (10:17)
[2022-01-06] MEDS: 0.9 % Sodium Chloride Flush 3 ML SYRINGE IVFLUSH ×3 (10:17→23:26)
[2022-01-06] MEDS: carvediloL 3.125 MG TABLET PO ×2 (10:17→21:12)
[2022-01-06 11:30] LABS: Glucose, Whole Blood 280 mg/dL (60-115)
--- NOTE | 2022-01-06 12:01 | HO.PM.IMPN ---
Subjective Subjective Date of Service: 01/06/22 Interval History: No acute issues overnight. Pain control adequate Review of Systems Denies chest pain Denies shortness of breath Denies nausea vomiting diarrhea denies lower extremity pain Physical Exam Vital Signs: Vital Signs: Last Vital Signs Temp 97.9 F 01/06/22 11:14 Pulse 73 01/06/22 11:14 Resp 18 01/06/22 11:14 BP 107/68 01/06/22 11:14 Pulse Ox 100 01/06/22 11:14 BMI result Body Mass Index 27.1 Const: Other: Awake alert oriented x3 no acute distress Resp: Other: Clear to auscultation bilaterally. No rales rhonchi or wheezes noted Cardio: Other: No S4; positive S1-S2; no S3; no murmurs or gallops GI: Other: Soft nontender nondistended with normoactive bowel sounds like 4 quadrants. Neuro: Other: Cranial nerves 2-12 grossly intact as tested. 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 Objective Data Active Medications Acetaminophen (Acetaminophen 325 Mg Tablet) 650 mg PO Q6H PRN PRN Reason: Pain, Mild (Pain Scale 1-3) Aspirin (Aspirin Enteric Coated 81 Mg Tablet.) 81 mg PO DAILY [facility] Last Admin: 01/06/22 10:16 Dose: 81 mg Documented by: PEDRO Bumetanide (Bumetanide 1 Mg Tablet) 2 mg PO DAILY [facility]; Protocol Last Admin: 01/06/22 10:15 Dose: 2 mg Documented by: PEDRO Carvedilol (Carvedilol 3.125 Mg Tablet) 3.125 mg PO BID [facility]; Protocol Last Admin: 01/06/22 10:17 Dose: 3.125 mg Documented by: PEDRO Clopidogrel Bisulfate (Clopidogrel Bisulfate 75 Mg Tablet) 75 mg PO DAILY [facility] Last Admin: 01/06/22 10:17 Dose: 75 mg Documented by: PEDRO Dextrose (Dextrose 50 % 25 Gm/50 Ml Syringe) 25 gm IVPUSH Q15M PRN; Protocol PRN Reason: per Hypoglycemia Standing Ord. Docusate Sodium (Docusate Sodium 100 Mg Capsule) 100 mg PO DAILY PRN PRN Reason: Constipation Enoxaparin Sodium (Enoxaparin Sodium 40 Mg/0.4 Ml Syringe) 40 mg SUBCUT Q24H [facility] Last Admin: 01/06/22 05:55 Dose: Not Given Documented by: BLANCA Non-Admin Reason: Patient Refused Comments: Pt educated on med, still refused Fluticasone Propionate (Fluticasone Propionate Nasal 16 Gm [place]) 1 spray NOSTRIL-B DAILY [facility] Last Admin: 01/05/22 08:29 Dose: Not Given Documented by: PEDRO Non-Admin Reason: Patient Refused Fluticasone/Vilanterol (Fluticasone/Vilanterol 200/25 Blst.W.Dev) 1 puff INHALE RDAILY [facility] Last Admin: 01/06/22 07:30 Dose: 1 puff Documented by: RICKEY Gabapentin (Gabapentin 100 Mg Capsule) 200 mg PO TID [facility] Last Admin: 01/06/22 10:16 Dose: 200 mg Documented by: PEDRO Glucose (Glucose Gel 15 Gm Gel..Gram.) 15 gm PO Q15M PRN; Protocol PRN Reason: per Hypoglycemia Standing Ord. Daptomycin 500 mg/ Sodium (Chloride) 60 mls @ 100 mls/hr IV Q24H [facility] Insulin Glargine (Insulin Glargine,Hum.Rec.Anlog 100 Unit/Ml 10 Ml Vial) 12 unit SUBCUT BEDTIME [facility] Last Admin: 01/05/22 21:59 Dose: 12 unit Documented by: SOM Insulin Human Lispro (Insulin Lispro 100 Unit/Ml 3 Ml Vial) 0 unit SUBCUT QIDACHS [facility]; Protocol Last Admin: 01/06/22 10:17 Dose: Not Given Documented by: PEDRO Non-Admin Reason: No Insulin Coverage Lidocaine (Lidocaine 4 % Patch Adh..Patch) 1 patch TRANSDERMA DAILY [facility]; Protocol Last Admin: 01/06/22 10:19 Dose: Not Given Documented by: PEDRO Non-Admin Reason: Patient Refused Loratadine (Loratadine 10 Mg Tablet) 10 mg PO DAILY [facility] Last Admin: 01/06/22 10:15 Dose: 10 mg Documented by: PEDRO Melatonin (Melatonin 3 Mg Tablet) 6 mg PO BEDTIME PRN PRN Reason: Insomnia Last Admin: 01/01/22 21:32 Dose: 6 mg Documented by: SCOOTER Methadone HCl (Methadone Hcl 20 Mg/2 Ml Oral.Conc) 50 mg PO DAILY [facility] Last Admin: 01/06/22 10:13 Dose: 50 mg Documented by: PEDRO Montelukast Sodium (Montelukast Sodium 10 Mg Tablet) 10 mg PO BEDTIME [facility] Last Admin: 01/05/22 22:00 Dose: 10 mg Documented by: SOM Sacubitril/Valsartan (Sacubitril/Valsartan 1 Tab Tablet) 1 tab PO BID [facility]; Protocol Last Admin: 01/06/22 10:15 Dose: 1 tab Documented by: PEDRO Sodium Chloride (0.9 % Sodium Chloride Flush 3 Ml Syringe) 3 ml IVFLUSH QSHIFT [facility] Last Admin: 01/06/22 10:17 Dose: 3 ml Documented by: PEDRO Tamsulosin HCl (Tamsulosin Hcl 0.4 Mg Capsule) 0.4 mg PO DAILY@1730 [facility] Last Admin: 01/05/22 16:38 Dose: 0.4 mg Documented by: PEDRO Labs CBC & Chem 7: 01/05/22 05:56 01/05/22 05:56 Labs: Laboratory Results - last 24 hr 01/05/22 01/05/22 01/06/22 15:10 19:09 07:30 POC Glucose 193 H 132 H 112 01/06/22 11:13 POC Glucose 280 H Assessment and Plan (1) Acute on chronic HFrEF (heart failure with reduced ejection fraction): Status: Acute (2) Osteomyelitis: Status: Acute (3) Diabetes mellitus, type 2: Status: Acute Plan 51yo M with ischemic cardiomyopathy admitted for CHF exacerbation and also found to have DM foot ulcer with osteomyelitis 1.Acute/chronic HFrEF LVEF 15-20%, grade 3 diastolic dysfunction 10/08/21 -well compensated on curent therapies -follow renals/divalents -adjust therapies as BP dictates 2.Diabetic foot ulcer with acute osteomyelitis - blood cultures negative thus far; daptomycin (). will order PICC when facility available - wound debrided by Dr Lima this am(see note) 3. PAD( Left posterior tibial artery occlusion) - discussed with Vasc Surg. will need outpt f/u in 1-2 wk for angiogram/stenting - continue current therapies 4. COPD - acceptable control on current therapies - adjust as indicated 5. DMII ( A1c 6.6) - basal/bolus insulin VTE - LMWH Full Code Quality Stroke Does the patient have a stroke diagnosis?: No VTE Prior VTE?: No VTE Risk Level:: Medical - moderate - high VTE Device Contraindication: Treatment Not Indicated VTE Drug Contraindication: N/A - Med Ordered
[2022-01-06] MEDS: Insulin Lispro 100 UNIT/ML 3 ML VIAL SUBCUT (12:15)
[2022-01-06] MEDS: DAPTOmycin 500 MG in 0.9 % Sodium Chloride 50 ML 100 MG IV (13:35)
--- NOTE | 2022-01-06 13:43 | MHC.CM.PN ---
MATEO continues to work toward dc planning with [facility]. MATEO has called She LOPEZ who delivers Patient's Methadone to him at home to determine which Clinic Patient is affiliated with, and MATEO awaits a return call. MATEO has asked multiple times in [employer], with no response. MATEO will follow.
--- NOTE | 2022-01-06 13:54 | MHC.CM.PN ---
Patient is affiliated with [facility] in [place] for his Methadone. CM has informed [facility].
[2022-01-06 16:24] LABS: Glucose, Whole Blood 138 mg/dL (60-115)
[2022-01-06] MEDS: Tamsulosin HCL 0.4 MG CAPSULE PO (17:58)
[2022-01-06 20:21] LABS: Glucose, Whole Blood 123 mg/dL (60-115)
[2022-01-06] MEDS: Insulin Glargine,Hum.rec.anlog 100 UNIT/ML 10 ML VIAL 12 UNIT SUBCUT (21:07)
[2022-01-06] MEDS: Melatonin 3 MG TABLET 6 MG PO (21:11)
[2022-01-06] MEDS: Montelukast Sodium 10 MG TABLET PO (21:12)
[2022-01-07] VITALS (8 sets, daily range): BP systolic 87–111; BP diastolic 52–69; PULSE 61–69; RESP 14–18; TEMP 36.2–36.9; O2SAT 96–100; BMI 27.0
[2022-01-07] MEDS: Enoxaparin Sodium 40 MG/0.4 ML SYRINGE SUBCUT (05:57)
[2022-01-07 06:43] LABS: MANUAL DIFF FLAG NO
[2022-01-07 06:49] LABS: Basophils Percent Auto 0.4 % (0-2); Eosinophils Absolute Auto 0.2 X10*3/uL (0.0-0.4); Eosinophils Percent Auto 2.7 % (0-4); Hematocrit 38.9 % (42.0-52.0); Hemoglobin 11.9 g/dl (14.0-18.0); Imm Gran Abs Auto 0.02 X10*3/uL (0.00-0.03); Imm Gran Pct Auto 0.3 % (0.0-0.4); Lymphocytes Absolute Auto 1.1 X10*3/uL (1.2-4.9); Lymphocytes Percent Auto 15.4 % (20-40); Mean Corpuscular HGB Conc 30.6 g/dl (31.0-36.0); Mean Corpuscular Hemoglobin 25.6 pg (27.0-33.0); Mean Corpuscular Volume 83.8 fL (80.0-98.0); Mean Platelet Volume 9.7 fL (9.4-12.4); Monocytes Percent Auto 14.1 % (2-11); Neutrophils Absolute Auto 4.9 x10*3/uL (2.0-8.3); Neutrophils Percent Auto 67.1 % (45-73); Platelet Count 279 X10*3/uL (160-400); Red Blood Count 4.64 X10*6/uL (4.60-5.80); Red Cell Distribution Width 16.2 % (11.0-16.0); White Blood Count 7.3 X10*3/uL (4.8-10.8)
[2022-01-07 07:03] LABS: Alanine Aminotransferase 22 U/L (0-40); Albumin Level 3.4 g/dL (3.5-5.0); Alkaline Phosphatase 84 U/L (39-117); Anion Gap 12 (12-20); Aspartate Amino Transferase 30 U/L (5-37); Bilirubin Total 0.4 mg/dL (0.0-1.0); Blood Urea Nitrogen 50 mg/dL (9-16); Calcium 9.8 mg/dL (8.4-10.2); Carbon Dioxide 32 mmol/L (22-29); Chloride 92 mmol/L (96-108); Creatinine Clr Calc Pharmacy 63.7; Estimated Glomerular Filt Rate > 60; Glucose Fasting 134 mg/dL (60-99); Potassium 4.2 mmol/L (3.3-5.1); Sodium 132 mmol/L (135-145); Total Protein 6.7 g/dL (6.5-8.0)
[2022-01-07 07:35] LABS: Glucose, Whole Blood 175 mg/dL (60-115)
[2022-01-07] MEDS: Fluticasone/Vilanterol 200/25 BLST.W.DEV 1 PUFF INHALE (07:50)
[2022-01-07] MEDS: Loratadine 10 MG TABLET PO (09:15)
[2022-01-07] MEDS: Gabapentin 100 MG CAPSULE 200 MG PO ×3 (09:15→22:13)
[2022-01-07] MEDS: Bumetanide 1 MG TABLET 2 MG PO (09:15)
[2022-01-07] MEDS: Sacubitril/Valsartan 24/26 1 TAB TABLET PO ×2 (09:15→22:13)
[2022-01-07] MEDS: Clopidogrel Bisulfate 75 MG TABLET PO (09:15)
[2022-01-07] MEDS: carvediloL 3.125 MG TABLET PO ×2 (09:15→22:12)
[2022-01-07] MEDS: Aspirin Enteric Coated 81 MG TABLET.DR PO (09:15)
[2022-01-07] MEDS: methADONE HCl 20 MG/2 ML ORAL.CONC 50 MG PO (09:16)
[2022-01-07] MEDS: 0.9 % Sodium Chloride Flush 3 ML SYRINGE IVFLUSH ×2 (09:16→17:15)
[2022-01-07] MEDS: Insulin Lispro 100 UNIT/ML 3 ML VIAL SUBCUT ×2 (09:16→22:13)
[2022-01-07 11:29] LABS: Glucose, Whole Blood 78 mg/dL (60-115)
--- NOTE | 2022-01-07 11:38 | P.CONGS_ITS ---
History of Present Illness Consult details Consult date: 01/07/22 Narrative: Very pleasant 51-year-old gentleman with her prior history right-sided BKA and also a history of IV drug abuse presents for nonhealing left great toe ulcer. He has been treated with antibiotics and has had left great toe debridement by General surgery. He has been in the hospital due to placement issues. He now presents to us for vascular evaluation. Review of Systems Review of Systems: Yes all other systems are reviewed and are negative Constitutional: Constitutional: Reports no additional constitutional complaints ENT: Reports Normal hearing present Cardiovascular: Cardiovascular: Denies chest pain, Denies chest pain at rest, Denies chest pain with activity and Denies pedal edema Respiratory: Respiratory: Denies cough Gastrointestinal: Gastrointestinal: Denies abdominal pain Musculoskeletal: Musculoskeletal: Denies abnormal gait, Denies muscle cramps and Denies radiating pain into limb Integumentary/Breasts: Skin/Breast: Denies skin ulcer and Denies wounds Neurologic: Reports Normal hearing present and Denies abnormal gait Psychiatric: Psychiatric: Reports no additional psychiatric complaints [facility] Past Medical History Medical History (Updated 01/06/22 @ 12:02 by Wilfred Dueñas DO) Abscess or cellulitis of foot Acute on chronic anemia Acute on chronic combined systolic and diastolic congestive heart failure Acute respiratory failure with hypoxia Asthma Bipolar 1 disorder BPH (benign prostatic hyperplasia) Cholelithiasis Closed wedge compression fracture of T9 vertebra COPD (chronic obstructive pulmonary disease) Diabetes mellitus Diabetes mellitus, type 2 GERD (gastroesophageal reflux disease) Hyperlipidemia Ischemic cardiomyopathy Lymphadenopathy Opiate abuse, continuous Peripheral arterial disease Peripheral neuropathy Substance abuse Tracheomalacia, acquired Family History Family History Father Chronic mental illness Hypertension Asthma Stroke Mother Asthma Diabetes Coronary artery disease Family history: reviewed and not pertinent Surgical History Surgical History History of amputation History of laminectomy History of transurethral resection of prostate Hx of BKA Social History Social History Household Members: None Housing: Apartment Housing Other:: IN A LITTLE ROOM Do you presently have visiting nurse or other home services: Yes Alcohol intake: never Patient Tobacco Use Status: Never used Tobacco e-Cigarette/Vaping Use: Never Used Second Hand Smoke Exposure: No Substance Use Type: Marijuana Advance Directives Date on File: 11/24/20 service: No Current occupational status: disabled Meds Allergies Allergy/AdvReac Type Severity Reaction Status Date / Time ertapenem Allergy Intermediate Hives Verified 07/20/21 01:06 vancomycin [VANCOMYCIN] Allergy Intermediate HIVES Verified 07/20/21 01:06 Chocolate Allergy Unknown Rash Verified 07/20/21 01:06 ciprofloxacin [From CIPRO] Allergy Unknown SWELLING Verified 07/20/21 01:06 hydrocortisone [Cipro HC] Allergy Unknown Unknown Verified 07/20/21 01:06 sulfamethoxazole Allergy Unknown rash Verified 07/20/21 01:06 [From BACTRIM] trimethoprim [From BACTRIM] Allergy Unknown rash Verified 07/20/21 01:06 turkey [TURKEY] Allergy Unknown RASH Verified 07/20/21 01:06 Active Medications: Current Medications Acetaminophen (Acetaminophen 325 Mg Tablet) 650 mg PO Q6H PRN PRN Reason: Pain, Mild (Pain Scale 1-3) Aspirin (Aspirin Enteric Coated 81 Mg Tablet.) 81 mg PO DAILY [facility] Last Admin: 01/07/22 09:15 Dose: 81 mg Documented by: Bumetanide (Bumetanide 1 Mg Tablet) 2 mg PO DAILY [facility]; Protocol Last Admin: 01/07/22 09:15 Dose: 2 mg Documented by: Carvedilol (Carvedilol 3.125 Mg Tablet) 3.125 mg PO BID [facility]; Protocol Last Admin: 01/07/22 09:15 Dose: 3.125 mg Documented by: Clopidogrel Bisulfate (Clopidogrel Bisulfate 75 Mg Tablet) 75 mg PO DAILY [facility] Last Admin: 01/07/22 09:15 Dose: 75 mg Documented by: Dextrose (Dextrose 50 % 25 Gm/50 Ml Syringe) 25 gm IVPUSH Q15M PRN; Protocol PRN Reason: per Hypoglycemia Standing Ord. Docusate Sodium (Docusate Sodium 100 Mg Capsule) 100 mg PO DAILY PRN PRN Reason: Constipation Enoxaparin Sodium (Enoxaparin Sodium 40 Mg/0.4 Ml Syringe) 40 mg SUBCUT Q24H [facility] Last Admin: 01/07/22 05:57 Dose: 40 mg Documented by: Fluticasone Propionate (Fluticasone Propionate Nasal 16 Gm [place]) 1 spray NOSTRIL-B DAILY [facility] Last Admin: 01/07/22 10:02 Dose: Not Given Documented by: Fluticasone/Vilanterol (Fluticasone/Vilanterol 200/25 Blst.W.Dev) 1 puff INHALE RDAILY [facility] Last Admin: 01/07/22 07:50 Dose: 1 puff Documented by: Gabapentin (Gabapentin 100 Mg Capsule) 200 mg PO TID [facility] Last Admin: 01/07/22 09:15 Dose: 200 mg Documented by: Glucose (Glucose Gel 15 Gm Gel..Gram.) 15 gm PO Q15M PRN; Protocol PRN Reason: per Hypoglycemia Standing Ord. Daptomycin 500 mg/ Sodium (Chloride) 60 mls @ 100 mls/hr IV Q24H [facility] Last Infusion: 01/06/22 14:37 Dose: Infused Documented by: Insulin Glargine (Insulin Glargine,Hum.Rec.Anlog 100 Unit/Ml 10 Ml Vial) 12 unit SUBCUT BEDTIME [facility] Last Admin: 01/06/22 21:07 Dose: 12 unit Documented by: Insulin Human Lispro (Insulin Lispro 100 Unit/Ml 3 Ml Vial) 0 unit SUBCUT QIDACHS [facility]; Protocol Last Admin: 01/07/22 09:16 Dose: 2 unit Documented by: Lidocaine (Lidocaine 4 % Patch Adh..Patch) 1 patch TRANSDERMA DAILY [facility]; Protocol Last Admin: 01/07/22 10:02 Dose: Not Given Documented by: Loratadine (Loratadine 10 Mg Tablet) 10 mg PO DAILY [facility] Last Admin: 01/07/22 09:15 Dose: 10 mg Documented by: Melatonin (Melatonin 3 Mg Tablet) 6 mg PO BEDTIME PRN PRN Reason: Insomnia Last Admin: 01/06/22 21:11 Dose: 6 mg Documented by: Methadone HCl (Methadone Hcl 20 Mg/2 Ml Oral.Conc) 50 mg PO DAILY [facility] Last Admin: 01/07/22 09:16 Dose: 50 mg Documented by: Montelukast Sodium (Montelukast Sodium 10 Mg Tablet) 10 mg PO BEDTIME [facility] Last Admin: 01/06/22 21:12 Dose: 10 mg Documented by: Sacubitril/Valsartan (Sacubitril/Valsartan 1 Tab Tablet) 1 tab PO BID [facility]; Protocol Last Admin: 01/07/22 09:15 Dose: 1 tab Documented by: Sodium Chloride (0.9 % Sodium Chloride Flush 3 Ml Syringe) 3 ml IVFLUSH QSHIFT [facility] Last Admin: 01/07/22 09:16 Dose: 3 ml Documented by: Tamsulosin HCl (Tamsulosin Hcl 0.4 Mg Capsule) 0.4 mg PO DAILY@1730 [facility] Last Admin: 01/06/22 17:58 Dose: 0.4 mg Documented by: Home Medications Medication Instructions Recorded Confirmed Last Taken Type FreeStyle Lite Strips 08/12/20 02/13/21 Unknown History albuterol sulfate 2.5 mg INHALATION Q4H PRN 08/12/20 12/30/21 Unknown History albuterol sulfate 90 mcg/actuation 2 puff INHALATION Q4H PRN 08/12/20 12/30/21 Unknown History aerosol inhaler blood-glucose meter (FreeStyle 08/12/20 02/13/21 Unknown History Kim Lite) cane 08/12/20 02/13/21 Unknown History lancets 08/12/20 02/13/21 Unknown History methadone 10 mg/mL oral concentrate 50 mg PO QAM 08/12/20 12/30/21 01/02/21 History pen needle, diabetic 08/12/20 02/13/21 Unknown History aspirin 81 mg tablet,delayed 81 mg PO DAILY 08/14/20 12/30/21 Unknown History release atorvastatin 20 mg tablet 20 mg PO BEDTIME 08/14/20 12/30/21 Unknown History carvedilol 6.25 mg tablet 6.25 mg PO BID 08/14/20 12/30/21 Unknown History cetirizine 10 mg tablet 10 mg PO DAILY 08/14/20 12/30/21 Unknown History fluticasone propionate 50 1 spray INTRANASAL DAILY 08/14/20 12/30/21 Unknown History mcg/actuation nasal spray,suspension (Flonase Allergy Relief) gabapentin 100 mg capsule 200 mg PO TID 08/14/20 12/30/21 Unknown History insulin glargine 100 unit/mL 12 unit SUBCUT QPM 08/14/20 12/30/21 Unknown History subcutaneous solution (Lantus U-100 Insulin) montelukast 10 mg tablet 10 mg PO BEDTIME 08/14/20 12/30/21 Unknown History spironolactone 25 mg tablet 12.5 mg PO DAILY 08/14/20 12/30/21 Unknown History tamsulosin 0.4 mg capsule 0.4 mg PO DAILY 08/14/20 12/30/21 Unknown History clopidogrel 75 mg tablet 1 tab PO QAM 10/08/21 12/30/21 Unknown History famotidine 20 mg tablet 20 mg PO BID 12/30/21 12/30/21 Unknown History fluticasone 500 mcg-salmeterol 50 1 inh INHALATION BID 12/30/21 12/30/21 Unknown History mcg/dose blistr powdr for inhalation (Advair Diskus) insulin aspart U-100 100 unit/mL 5 unit SUBCUT TID 12/30/21 12/30/21 Unknown History (3 mL) subcutaneous pen (Novolog Flexpen U-100 Insulin aspart) lidocaine 5 % topical patch 1 patch TOPICAL DAILY 12/30/21 12/30/21 Unknown History losartan 25 mg tablet 1 tab PO QAM 12/30/21 12/30/21 Unknown History zinc 50 mg tablet 50 mg PO DAILY 12/30/21 12/30/21 Unknown History Physical Exam Vital Signs: Vital Signs: Last Vital Signs Temp 97.2 F 01/07/22 08:00 Pulse 68 01/07/22 08:00 Resp 18 01/07/22 08:00 BP 103/63 01/07/22 08:00 Pulse Ox 98 01/07/22 08:00 BMI result Body Mass Index 27.0 Const: General: cooperative, healthy appearing and comfortable Orientation/consciousness: oriented to person, oriented to place and oriented to time HENMT: Head: Yes normal to inspection Neck: Neck: Yes normal visual inspection Carotids: no bruits Chest: Chest palpation & inspection: normal inspection of the chest Resp: Effort & Inspection: normal respiratory effort and able to speak in complete sentences Auscultation: clear to auscultation bilaterally, no cr ackles, no rales, no rhonchi and no wheezes Cardio: Rate: regular rate Rhythm: regular rhythm Heart sounds: S1 normal heart sound present and S2 normal heart sound present Bruits: no carotid bruits Peripheral pulses: Peripheral pulses 2+ throughout GI: Inspection: Yes normal to inspection Skin: Wounds: amputation site (Right BKA well-healing) and wounds noted (Left great toe) Hair: normal Neuro: General: oriented to person, oriented to place and oriented to time Cranial nerves: Yes CN's II-XII intact bilaterally and Yes Normal hearing present Cognition (Neuro): normal cognition Motor exam (neuro): 5/5 motor strength present throughout Extrem: Other: venous exam: No significant superficial varicosities or spider telangiectasias, minimal edema General: No clubbing, No cyanosis and No edema Psych: Appearance: grossly normal Mental Status: mental status grossly normal Speech and movement: Normal speech and movement present Results Labs Result diagrams: 01/07/22 06:32 01/07/22 06:32 Labs: Abnormal lab results 01/06/22 01/06/22 01/07/22 Range/Units 15:49 20:17 06:32 Hgb 11.9 L (14.0-18.0) g/dl Hct 38.9 L (42.0-52.0) % MCH 25.6 L (27.0-33.0) pg MCHC 30.6 L (31.0-36.0) g/dl RDW 16.2 H (11.0-16.0) % Lymph % (Auto) 15.4 L (20-40) % [place] % (Auto) 14.1 H (2-11) % Lymph # (Auto) 1.1 L (1.2-4.9) X10*3/uL Sodium (135-145) mmol/L Chloride (96-108) mmol/L Carbon Dioxide (22-29) mmol/L BUN (9-16) mg/dL POC Glucose 138 H 123 H (60-115) mg/dL Fasting Glucose (60-99) mg/dL Albumin (3.5-5.0) g/dL 01/07/22 01/07/22 Range/Units 06:32 07:28 Hgb (14.0-18.0) g/dl Hct (42.0-52.0) % MCH (27.0-33.0) pg MCHC (31.0-36.0) g/dl RDW (11.0-16.0) % Lymph % (Auto) (20-40) % [place] % (Auto) (2-11) % Lymph # (Auto) (1.2-4.9) X10*3/uL Sodium 132 L (135-145) mmol/L Chloride 92 L (96-108) mmol/L Carbon Dioxide 32 H (22-29) mmol/L BUN 50 H (9-16) mg/dL POC Glucose 175 H (60-115) mg/dL Fasting Glucose 134 H (60-99) mg/dL Albumin 3.4 L (3.5-5.0) g/dL Short CBC 01/07/22 Range/Units 06:32 WBC 7.3 (4.8-10.8) X10*3/uL Hgb 11.9 L (14.0-18.0) g/dl Hct 38.9 L (42.0-52.0) % Plt Count 279 (160-400) X10*3/uL BMP 01/07/22 06:32 Sodium 132 L Potassium 4.2 Chloride 92 L Carbon Dioxide 32 H BUN 50 H Creatinine 1.21 Calcium 9.8 Liver Function 01/07/22 Range/Units 06:32 Total Bilirubin 0.4 (0.0-1.0) mg/dL AST 30 (5-37) U/L ALT 22 (0-40) U/L Alkaline Phosphatase 84 (39-117) U/L Albumin 3.4 L (3.5-5.0) g/dL All other labs normal. Assessment and Plan (1) Peripheral arterial disease: Status: Acute Plan In short patient has a nonhealing left great toe ulcer. I have discussed the pathophysiology of peripheral vascular disease with the patient. I have a lso discussed risk factor modification. I have reviewed the patient's arterial testing which reveals tibial disease on left lower extremity the patient would benefit from a left leg endovascular peripheral angiogram with possible angioplasty, stent, and/or atherectomy. This has been discussed in detail with the patient along with risks, benefits, and complications. This includes but is not limited to bleeding, infection, heart attack, need for emergent surgical repair, limb ischemia, blood vessel damage, bleeding, puncture, kidney injury, bruising, allergic reaction, and skin reaction. The patient demonstrates a clear understanding. We will schedule for the next appropriate time. Thank you for allowing us to assist in this patient's care. Procedures Date of Service Date of Service: 01/07/22
--- NOTE | 2022-01-07 11:59 | HO.PM.IMPN ---
Subjective Subjective Date of Service: 01/07/22 Interval History: No acute issues overnight. Pain control adequate Review of Systems Denies chest pain Denies shortness of breath Denies nausea vomiting diarrhea denies lower extremity pain Physical Exam Vital Signs: Vital Signs: Last Vital Signs Temp 97.2 F 01/07/22 08:00 Pulse 68 01/07/22 08:00 Resp 18 01/07/22 08:00 BP 103/63 01/07/22 08:00 Pulse Ox 98 01/07/22 08:00 BMI result Body Mass Index 27.0 Const: Other: Awake alert oriented x3 no acute distress Resp: Other: Clear to auscultation bilaterally. No rales rhonchi or wheezes noted Cardio: Other: No S4; positive S1-S2; no S3; no murmurs or gallops GI: Other: Soft nontender nondistended with normoactive bowel sounds like 4 quadrants. Neuro: Other: Cranial nerves 2-12 grossly intact as tested. 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125 mg Documented by: PAPI Clopidogrel Bisulfate (Clopidogrel Bisulfate 75 Mg Tablet) 75 mg PO DAILY [facility] Last Admin: 01/07/22 09:15 Dose: 75 mg Documented by: PAPI Dextrose (Dextrose 50 % 25 Gm/50 Ml Syringe) 25 gm IVPUSH Q15M PRN; Protocol PRN Reason: per Hypoglycemia Standing Ord. Docusate Sodium (Docusate Sodium 100 Mg Capsule) 100 mg PO DAILY PRN PRN Reason: Constipation Enoxaparin Sodium (Enoxaparin Sodium 40 Mg/0.4 Ml Syringe) 40 mg SUBCUT Q24H [facility] Last Admin: 01/07/22 05:57 Dose: 40 mg Documented by: JOHNATHAN Fluticasone Propionate (Fluticasone Propionate Nasal 16 Gm [place]) 1 spray NOSTRIL-B DAILY [facility] Last Admin: 01/07/22 10:02 Dose: Not Given Documented by: PAPI Non-Admin Reason: Patient Refused Fluticasone/Vilanterol (Fluticasone/Vilanterol 200/25 Blst.W.Dev) 1 puff INHALE RDAILY [facility] Last Admin: 01/07/22 07:50 Dose: 1 puff Documented by: BETZY Gabapentin (Gabapentin 100 Mg Capsule) 200 mg PO TID [facility] Last Admin: 01/07/22 09:15 Dose: 200 mg Documented by: PAPI Glucose (Glucose Gel 15 Gm Gel..Gram.) 15 gm PO Q15M PRN; Protocol PRN Reason: per Hypoglycemia Standing Ord. Daptomycin 500 mg/ Sodium (Chloride) 60 mls @ 100 mls/hr IV Q24H [facility] Last Infusion: 01/06/22 14:37 Dose: 0 mls/hr Documented by: PEDRO Insulin Glargine (Insulin Glargine,Hum.Rec.Anlog 100 Unit/Ml 10 Ml Vial) 12 unit SUBCUT BEDTIME [facility] Last Admin: 01/06/22 21:07 Dose: 12 unit Documented by: JOHNATHAN Insulin Human Lispro (Insulin Lispro 100 Unit/Ml 3 Ml Vial) 0 unit SUBCUT QIDACHS [facility]; Protocol Last Admin: 01/07/22 09:16 Dose: 2 unit Documented by: PAPI Lidocaine (Lidocaine 4 % Patch Adh..Patch) 1 patch TRANSDERMA DAILY [facility]; Protocol Last Admin: 01/07/22 10:02 Dose: Not Given Documented by: PAPI Non-Admin Reason: Patient Refused Loratadine (Loratadine 10 Mg Tablet) 10 mg PO DAILY [facility] Last Admin: 01/07/22 09:15 Dose: 10 mg Documented by: PAPI Melatonin (Melatonin 3 Mg Tablet) 6 mg PO BEDTIME PRN PRN Reason: Insomnia Last Admin: 01/06/22 21:11 Dose: 6 mg Documented by: JOHNATHAN Methadone HCl (Methadone Hcl 20 Mg/2 Ml Oral.Conc) 50 mg PO DAILY [facility] Last Admin: 01/07/22 09:16 Dose: 50 mg Documented by: PAPI Montelukast Sodium (Montelukast Sodium 10 Mg Tablet) 10 mg PO BEDTIME [facility] Last Admin: 01/06/22 21:12 Dose: 10 mg Documented by: JOHNATHAN Sacubitril/Valsartan (Sacubitril/Valsartan 1 Tab Tablet) 1 tab PO BID [facility]; Protocol Last Admin: 01/07/22 09:15 Dose: 1 tab Documented by: PAPI Sodium Chloride (0.9 % Sodium Chloride Flush 3 Ml Syringe) 3 ml IVFLUSH QSHIFT [facility] Last Admin: 01/07/22 09:16 Dose: 3 ml Documented by: PAPI Tamsulosin HCl (Tamsulosin Hcl 0.4 Mg Capsule) 0.4 mg PO DAILY@1730 [facility] Last Admin: 01/06/22 17:58 Dose: 0.4 mg Documented by: PEDRO Labs CBC & Chem 7: 01/07/22 06:32 01/07/22 06:32 Labs: Laboratory Results - last 24 hr 01/06/22 01/06/22 01/07/22 15:49 20:17 06:32 MCV 83.8 MCH 25.6 L MCHC 30.6 L RDW 16.2 H Plt Count 279 MPV 9.7 Immature Gran % (Auto) 0.3 Neut % (Auto) 67.1 Lymph % (Auto) 15.4 L [place] % (Auto) 14.1 H Eos % (Auto) 2.7 Baso % (Auto) 0.4 Lymph # (Auto) 1.1 L [place] # (Auto) 1.0 Eos # (Auto) 0.2 Baso # (Auto) 0.0 Abs Immat Gran (auto) 0.02 Absolute Neuts (auto) 4.9 Absolute Nucleated RBC 0.000 Nucleated RBC % (auto) 0.0 Anion Gap Estim Creat Clear Calc Estimated GFR POC Glucose 138 H 123 H Fasting Glucose Calcium Total Bilirubin AST ALT Alkaline Phosphatase Total Protein Albumin 01/07/22 01/07/22 01/07/22 06:32 07:28 11:23 MCV MCH MCHC RDW Plt Count MPV Immature Gran % (Auto) Neut % (Auto) Lymph % (Auto) [place] % (Auto) Eos % (Auto) Baso % (Auto) Lymph # (Auto) [place] # (Auto) Eos # (Auto) Baso # (Auto) Abs Immat Gran (auto) Absolute Neuts (auto) Absolute Nucleated RBC Nucleated RBC % (auto) Anion Gap 12 Estim Creat Clear Calc 63.7 Estimated GFR > 60 POC Glucose 175 H 78 Fasting Glucose 134 H Calcium 9.8 Total Bilirubin 0.4 AST 30 ALT 22 Alkaline Phosphatase 84 Total Protein 6.7 Albumin 3.4 L Assessment and Plan (1) Diabetes mellitus, type 2: Status: Acute (2) Osteomyelitis: Status: Acute Plan 51yo M with ischemic cardiomyopathy admitted for CHF exacerbation and also found to have DM foot ulcer with osteomyelitis 1.Acute/chronic HFrEF LVEF 15-20%, grade 3 diastolic dysfunction 10/08/21 -well compensated on curent therapies -follow renals/divalents -adjust therapies as BP dictates 2.Diabetic foot ulcer with acute osteomyelitis - blood cultures negative thus far; daptomycin (). will order PICC when facility available - seen by vascular; angiogram +/-plasty 01/10/22 3. PAD( Left posterior tibial artery occlusion) - discussed with Vasc Surg. will need outpt f/u in 1-2 wk for angiogram/stenting - continue current therapies 4. COPD - acceptable control on current therapies - adjust as indicated 5. DMII ( A1c 6.6) - basal/bolus insulin VTE - LMWH Full Code Quality Stroke Does the patient have a stroke diagnosis?: No VTE Prior VTE?: No VTE Risk Level:: Medical - moderate - high VTE Device Contraindication: Treatment Not Indicated VTE Drug Contraindication: N/A - Med Ordered
[2022-01-07] MEDS: DAPTOmycin 500 MG in 0.9 % Sodium Chloride 50 ML 100 MG IV (13:29)
[2022-01-07 16:11] LABS: Glucose, Whole Blood 117 mg/dL (60-115)
[2022-01-07] MEDS: Tamsulosin HCL 0.4 MG CAPSULE PO (17:14)
[2022-01-07 20:34] LABS: Glucose, Whole Blood 166 mg/dL (60-115)
[2022-01-07] MEDS: Montelukast Sodium 10 MG TABLET PO (22:12)
[2022-01-07] MEDS: Insulin Glargine,Hum.rec.anlog 100 UNIT/ML 10 ML VIAL 12 UNIT SUBCUT (22:13)
[2022-01-07] MEDS: Acetaminophen 325 MG TABLET 650 MG PO (22:45)
[2022-01-08] VITALS (7 sets, daily range): BP systolic 93–135; BP diastolic 57–67; PULSE 61–69; RESP 18; TEMP 36.1–37.1; O2SAT 93–100
[2022-01-08] MEDS: 0.9 % Sodium Chloride Flush 3 ML SYRINGE IVFLUSH ×4 (01:17→20:59)
[2022-01-08 07:13] LABS: MANUAL DIFF FLAG NO
[2022-01-08 07:19] LABS: Basophils Percent Auto 0.6 % (0-2); Eosinophils Absolute Auto 0.2 X10*3/uL (0.0-0.4); Eosinophils Percent Auto 3.5 % (0-4); Hematocrit 37.2 % (42.0-52.0); Hemoglobin 11.4 g/dl (14.0-18.0); Imm Gran Abs Auto 0.02 X10*3/uL (0.00-0.03); Imm Gran Pct Auto 0.3 % (0.0-0.4); Lymphocytes Absolute Auto 0.9 X10*3/uL (1.2-4.9); Lymphocytes Percent Auto 14.8 % (20-40); Mean Corpuscular HGB Conc 30.6 g/dl (31.0-36.0); Mean Corpuscular Hemoglobin 25.6 pg (27.0-33.0); Mean Corpuscular Volume 83.6 fL (80.0-98.0); Monocytes Absolute Auto 0.9 X10*3/uL (0.1-1.2); Neutrophils Absolute Auto 4.2 x10*3/uL (2.0-8.3); Neutrophils Percent Auto 66.8 % (45-73); Platelet Count 271 X10*3/uL (160-400); Red Blood Count 4.45 X10*6/uL (4.60-5.80); Red Cell Distribution Width 16.1 % (11.0-16.0); White Blood Count 6.3 X10*3/uL (4.8-10.8)
[2022-01-08 07:31] LABS: Glucose, Whole Blood 119 mg/dL (60-115)
[2022-01-08] MEDS: Fluticasone/Vilanterol 200/25 BLST.W.DEV 1 PUFF INHALE (07:41)
[2022-01-08 07:44] LABS: Alanine Aminotransferase 20 U/L (0-40); Albumin Level 3.3 g/dL (3.5-5.0); Alkaline Phosphatase 78 U/L (39-117); Anion Gap 15 (12-20); Aspartate Amino Transferase 27 U/L (5-37); Bilirubin Total 0.4 mg/dL (0.0-1.0); Blood Urea Nitrogen 65 mg/dL (9-16); Calcium 9.2 mg/dL (8.4-10.2); Carbon Dioxide 29 mmol/L (22-29); Chloride 93 mmol/L (96-108); Creatinine Clr Calc Pharmacy 60.7; Estimated Glomerular Filt Rate 59; Glucose Fasting 123 mg/dL (60-99); Potassium 4.1 mmol/L (3.3-5.1); Sodium 133 mmol/L (135-145); Total Protein 6.4 g/dL (6.5-8.0)
[2022-01-08] MEDS: carvediloL 3.125 MG TABLET PO ×2 (09:27→20:57)
[2022-01-08] MEDS: Loratadine 10 MG TABLET PO (09:27)
[2022-01-08] MEDS: Gabapentin 100 MG CAPSULE 200 MG PO ×3 (09:27→20:55)
[2022-01-08] MEDS: Sacubitril/Valsartan 24/26 1 TAB TABLET PO ×2 (09:27→20:56)
[2022-01-08] MEDS: Clopidogrel Bisulfate 75 MG TABLET PO (09:27)
[2022-01-08] MEDS: Bumetanide 1 MG TABLET 2 MG PO (09:27)
[2022-01-08] MEDS: Aspirin Enteric Coated 81 MG TABLET.DR PO (09:27)
[2022-01-08] MEDS: methADONE HCl 20 MG/2 ML ORAL.CONC 50 MG PO (09:28)
[2022-01-08 11:06] LABS: Glucose, Whole Blood 166 mg/dL (60-115)
[2022-01-08] MEDS: Insulin Lispro 100 UNIT/ML 3 ML VIAL SUBCUT (11:30)
[2022-01-08] MEDS: DAPTOmycin 500 MG in 0.9 % Sodium Chloride 50 ML 100 MG IV (12:12)
--- NOTE | 2022-01-08 15:29 | HO.PM.IMPN ---
Subjective Subjective Date of Service: 01/08/22 Interval History: No acute issues overnight. Pain control adequate Review of Systems Denies chest pain Denies shortness of breath Denies nausea vomiting diarrhea denies lower extremity pain Physical Exam Vital Signs: Vital Signs: Last Vital Signs Temp 97.4 F 01/08/22 11:26 Pulse 62 01/08/22 11:26 Resp 18 01/08/22 11:26 BP 102/64 01/08/22 11:26 Pulse Ox 99 01/08/22 11:26 BMI result Body Mass Index 27.0 Const: Other: Awake alert oriented x3 no acute distress Resp: Other: Clear to auscultation bilaterally. No rales rhonchi or wheezes noted Cardio: Other: No S4; positive S1-S2; no S3; no murmurs or gallops GI: Other: Soft nontender nondistended with normoactive bowel sounds like 4 quadrants. Neuro: Other: Cranial nerves 2-12 grossly intact as tested. 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 Objective Data Active Medications Acetaminophen (Acetaminophen 325 Mg Tablet) 650 mg PO Q6H PRN PRN Reason: Pain, Mild (Pain Scale 1-3) Last Admin: 01/07/22 22:45 Dose: 650 mg Documented by: GAUDENCIO Aspirin (Aspirin Enteric Coated 81 Mg Tablet.) 81 mg PO DAILY [facility] Last Admin: 01/08/22 09:27 Dose: 81 mg Documented by: ANDREA Bumetanide (Bumetanide 1 Mg Tablet) 2 mg PO DAILY [facility]; Protocol Last Admin: 01/08/22 09:27 Dose: 2 mg Documented by: ANDREA Carvedilol (Carvedilol 3.125 Mg Tablet) 3.125 mg PO BID [facility]; Protocol Last Admin: 01/08/22 09:27 Dose: 3.125 mg Documented by: ANDREA Clopidogrel Bisulfate (Clopidogrel Bisulfate 75 Mg Tablet) 75 mg PO DAILY [facility] Last Admin: 01/08/22 09:27 Dose: 75 mg Documented by: ANDREA Dextrose (Dextrose 50 % 25 Gm/50 Ml Syringe) 25 gm IVPUSH Q15M PRN; Protocol PRN Reason: per Hypoglycemia Standing Ord. Docusate Sodium (Docusate Sodium 100 Mg Capsule) 100 mg PO DAILY PRN PRN Reason: Constipation Enoxaparin Sodium (Enoxaparin Sodium 40 Mg/0.4 Ml Syringe) 40 mg SUBCUT Q24H [facility] Last Admin: 01/08/22 06:08 Dose: Not Given Documented by: GAUDENCIO Non-Admin Reason: Patient Refused Fluticasone Propionate (Fluticasone Propionate Nasal 16 Gm [place]) 1 spray NOSTRIL-B DAILY [facility] Last Admin: 01/08/22 09:30 Dose: Not Given Documented by: ANDREA Non-Admin Reason: Patient Refused Fluticasone/Vilanterol (Fluticasone/Vilanterol 200/25 Blst.W.Dev) 1 puff INHALE RDAILY [facility] Last Admin: 01/08/22 07:41 Dose: 1 puff Documented by: ROSANNE Gabapentin (Gabapentin 100 Mg Capsule) 200 mg PO TID [facility] Last Admin: 01/08/22 14:00 Dose: 200 mg Documented by: ANDREA Glucose (Glucose Gel 15 Gm Gel..Gram.) 15 gm PO Q15M PRN; Protocol PRN Reason: per Hypoglycemia Standing Ord. Daptomycin 500 mg/ Sodium (Chloride) 60 mls @ 100 mls/hr IV Q24H [facility] Last Infusion: 01/08/22 13:27 Dose: 0 mls/hr Documented by: ANDREA Sodium Chloride (Ns) 1,000 mls @ 100 mls/hr IVCONT .Q10H [facility] Insulin Glargine (Insulin Glargine,Hum.Rec.Anlog 100 Unit/Ml 10 Ml Vial) 12 unit SUBCUT BEDTIME [facility] Last Admin: 01/07/22 22:13 Dose: 12 unit Documented by: GAUDENCIO Insulin Human Lispro (Insulin Lispro 100 Unit/Ml 3 Ml Vial) 0 unit SUBCUT QIDACHS [facility]; Protocol Last Admin: 01/08/22 11:30 Dose: 2 unit Documented by: ANDREA Lidocaine (Lidocaine 4 % Patch Adh..Patch) 1 patch TRANSDERMA DAILY [facility]; Protocol Last Admin: 01/08/22 09:31 Dose: Not Given Documented by: ANDREA Non-Admin Reason: Patient Refused Loratadine (Loratadine 10 Mg Tablet) 10 mg PO DAILY [facility] Last Admin: 01/08/22 09:27 Dose: 10 mg Documented by: ANDREA Melatonin (Melatonin 3 Mg Tablet) 6 mg PO BEDTIME PRN PRN Reason: Insomnia Last Admin: 01/06/22 21:11 Dose: 6 mg Documented by: JOHNATHAN Methadone HCl (Methadone Hcl 20 Mg/2 Ml Oral.Conc) 50 mg PO DAILY [facility] Last Admin: 01/08/22 09:28 Dose: 50 mg Documented by: ANDREA Montelukast Sodium (Montelukast Sodium 10 Mg Tablet) 10 mg PO BEDTIME [facility] Last Admin: 01/07/22 22:12 Dose: 10 mg Documented by: GAUDENCIO Sacubitril/Valsartan (Sacubitril/Valsartan 1 Tab Tablet) 1 tab PO BID [facility]; Protocol Last Admin: 01/08/22 09:27 Dose: 1 tab Documented by: ANDREA Sodium Chloride (0.9 % Sodium Chloride Flush 3 Ml Syringe) 3 ml IVFLUSH QSHIFT [facility] Last Admin: 01/08/22 14:01 Dose: 3 ml Documented by: ANDREA Tamsulosin HCl (Tamsulosin Hcl 0.4 Mg Capsule) 0.4 mg PO DAILY@1730 [facility] Last Admin: 01/07/22 17:14 Dose: 0.4 mg Documented by: PAPI Labs CBC & Chem 7: 01/08/22 07:00 01/08/22 07:00 Labs: Laboratory Results - last 24 hr 01/07/22 01/07/22 01/08/22 15:51 20:17 07:00 MCV 83.6 MCH 25.6 L MCHC 30.6 L RDW 16.1 H Plt Count 271 MPV 10.0 Immature Gran % (Auto) 0.3 Neut % (Auto) 66.8 Lymph % (Auto) 14.8 L Bond % (Auto) 14.0 H Eos % (Auto) 3.5 Baso % (Auto) 0.6 Lymph # (Auto) 0.9 L Bond # (Auto) 0.9 Eos # (Auto) 0.2 Baso # (Auto) 0.0 Abs Immat Gran (auto) 0.02 Absolute Neuts (auto) 4.2 Absolute Nucleated RBC 0.000 Nucleated RBC % (auto) 0.0 Anion Gap Estim Creat Clear Calc Estimated GFR POC Glucose 117 H 166 H Fasting Glucose Calcium Total Bilirubin AST ALT Alkaline Phosphatase Total Protein Albumin 01/08/22 01/08/22 01/08/22 07:00 07:16 10:57 MCV MCH MCHC RDW Plt Count MPV Immature Gran % (Auto) Neut % (Auto) Lymph % (Auto) Bond % (Auto) Eos % (Auto) Baso % (Auto) Lymph # (Auto) Bond # (Auto) Eos # (Auto) Baso # (Auto) Abs Immat Gran (auto) Absolute Neuts (auto) Absolute Nucleated RBC Nucleated RBC % (auto) Anion Gap 15 Estim Creat Clear Calc 60.7 Estimated GFR 59 POC Glucose 119 H 166 H Fasting Glucose 123 H Calcium 9.2 D Total Bilirubin 0.4 AST 27 ALT 20 Alkaline Phosphatase 78 Total Protein 6.4 L Albumin 3.3 L Assessment and Plan (1) Acute on chronic HFrEF (heart failure with reduced ejection fraction): Status: Acute (2) Osteomyelitis: Status: Acute Plan 51yo M with ischemic cardiomyopathy admitted for CHF exacerbation and also found to have DM foot ulcer with osteomyelitis 1.Acute/chronic HFrEF LVEF 15-20%, grade 3 diastolic dysfunction 10/08/21 -well compensated on curent therapies -follow renals/divalents -adjust therapies as BP dictates 2.Diabetic foot ulcer with acute osteomyelitis - blood cultures negative thus far; daptomycin (). will order PICC when facility available - seen by vascular; angiogram +/-plasty 01/10/22 3. PAD( Left posterior tibial artery occlusion) - discussed with Vasc Surg. Angio 01/10/21 - continue current therapies 4. COPD - acceptable control on current therapies - adjust as indicated 5. DMII ( A1c 6.6) - basal/bolus insulin VTE - LMWH Full Code Quality Stroke Does the patient have a stroke diagnosis?: No VTE Prior VTE?: No VTE Risk Level:: Medical - moderate - high VTE Device Contraindication: Treatment Not Indicated VTE Drug Contraindication: N/A - Med Ordered
[2022-01-08 15:52] LABS: Glucose, Whole Blood 74 mg/dL (60-115)
[2022-01-08] MEDS: Tamsulosin HCL 0.4 MG CAPSULE PO (16:09)
[2022-01-08 20:13] LABS: Glucose, Whole Blood 149 mg/dL (60-115)
[2022-01-08] MEDS: Montelukast Sodium 10 MG TABLET PO (20:55)
[2022-01-08] MEDS: Insulin Glargine,Hum.rec.anlog 100 UNIT/ML 10 ML VIAL 12 UNIT SUBCUT (20:57)
[2022-01-09] VITALS (7 sets, daily range): BP systolic 100–116; BP diastolic 61–83; PULSE 65–72; RESP 17–20; TEMP 36.4–37.1; O2SAT 96–100
[2022-01-09 07:21] LABS: Glucose, Whole Blood 80 mg/dL (60-115)
[2022-01-09] MEDS: Fluticasone/Vilanterol 200/25 BLST.W.DEV 1 PUFF INHALE (07:25)
[2022-01-09] MEDS: Bumetanide 1 MG TABLET 2 MG PO (08:36)
[2022-01-09] MEDS: Gabapentin 100 MG CAPSULE 200 MG PO ×3 (08:36→22:02)
[2022-01-09] MEDS: carvediloL 3.125 MG TABLET PO ×2 (08:37→22:02)
[2022-01-09] MEDS: methADONE HCl 20 MG/2 ML ORAL.CONC 50 MG PO (08:37)
[2022-01-09] MEDS: Clopidogrel Bisulfate 75 MG TABLET PO (08:37)
[2022-01-09] MEDS: Sacubitril/Valsartan 24/26 1 TAB TABLET PO ×2 (08:37→22:04)
[2022-01-09] MEDS: Aspirin Enteric Coated 81 MG TABLET.DR PO (08:37)
[2022-01-09] MEDS: 0.9 % Sodium Chloride Flush 3 ML SYRINGE IVFLUSH ×2 (08:38→22:04)
[2022-01-09] MEDS: Loratadine 10 MG TABLET PO (08:38)
[2022-01-09 10:59] LABS: Glucose, Whole Blood 144 mg/dL (60-115)
--- NOTE | 2022-01-09 12:45 | HO.PM.IMPN ---
Subjective Subjective Date of Service: 01/09/22 Interval History: No acute issues overnight. Pain control adequate Review of Systems Denies chest pain Denies shortness of breath Denies nausea vomiting diarrhea denies lower extremity pain Physical Exam Vital Signs: Vital Signs: Last Vital Signs Temp 97.7 F 01/09/22 12:00 Pulse 65 01/09/22 12:00 Resp 20 01/09/22 12:00 BP 110/65 01/09/22 12:00 Pulse Ox 99 01/09/22 12:00 BMI result Body Mass Index 27.0 Const: Other: Awake alert oriented x3 no acute distress Resp: Other: Clear to auscultation bilaterally. No rales rhonchi or wheezes noted Cardio: Other: No S4; positive S1-S2; no S3; no murmurs or gallops GI: Other: Soft nontender nondistended with normoactive bowel sounds like 4 quadrants. Neuro: Other: Cranial nerves 2-12 grossly intact as tested. 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 Objective Data Active Medications Acetaminophen (Acetaminophen 325 Mg Tablet) 650 mg PO Q6H PRN PRN Reason: Pain, Mild (Pain Scale 1-3) Last Admin: 01/07/22 22:45 Dose: 650 mg Documented by: GAUDENCIO Aspirin (Aspirin Enteric Coated 81 Mg Tablet.) 81 mg PO DAILY [facility] Last Admin: 01/09/22 08:37 Dose: 81 mg Documented by: SRINIVAS Bumetanide (Bumetanide 1 Mg Tablet) 2 mg PO DAILY [facility]; Protocol Last Admin: 01/09/22 08:36 Dose: 2 mg Documented by: SRINIVAS Carvedilol (Carvedilol 3.125 Mg Tablet) 3.125 mg PO BID [facility]; Protocol Last Admin: 01/09/22 08:37 Dose: 3.125 mg Documented by: SRINIVAS Clopidogrel Bisulfate (Clopidogrel Bisulfate 75 Mg Tablet) 75 mg PO DAILY [facility] Last Admin: 01/09/22 08:37 Dose: 75 mg Documented by: SRINIVAS Dextrose (Dextrose 50 % 25 Gm/50 Ml Syringe) 25 gm IVPUSH Q15M PRN; Protocol PRN Reason: per Hypoglycemia Standing Ord. Docusate Sodium (Docusate Sodium 100 Mg Capsule) 100 mg PO DAILY PRN PRN Reason: Constipation Enoxaparin Sodium (Enoxaparin Sodium 40 Mg/0.4 Ml Syringe) 40 mg SUBCUT Q24H [facility] Last Admin: 01/09/22 06:01 Dose: Not Given Documented by: MARIAMA Non-Admin Reason: Patient Refused Fluticasone Propionate (Fluticasone Propionate Nasal 16 Gm [place]) 1 spray NOSTRIL-B DAILY [facility] Last Admin: 01/09/22 10:08 Dose: Not Given Documented by: SRINIVAS Non-Admin Reason: Patient Refused Fluticasone/Vilanterol (Fluticasone/Vilanterol 200/25 Blst.W.Dev) 1 puff INHALE RDAILY [facility] Last Admin: 01/09/22 07:25 Dose: 1 puff Documented by: ROSANNE Gabapentin (Gabapentin 100 Mg Capsule) 200 mg PO TID [facility] Last Admin: 01/09/22 08:36 Dose: 200 mg Documented by: SRINIVAS Glucose (Glucose Gel 15 Gm Gel..Gram.) 15 gm PO Q15M PRN; Protocol PRN Reason: per Hypoglycemia Standing Ord. Daptomycin 500 mg/ Sodium (Chloride) 60 mls @ 100 mls/hr IV Q24H [facility] Last Infusion: 01/08/22 13:27 Dose: 0 mls/hr Documented by: ANDREA Sodium Chloride (Ns) 1,000 mls @ 100 mls/hr IVCONT .Q10H [facility] Insulin Glargine (Insulin Glargine,Hum.Rec.Anlog 100 Unit/Ml 10 Ml Vial) 12 unit SUBCUT BEDTIME [facility] Last Admin: 01/08/22 20:57 Dose: 12 unit Documented by: MARIAMA Insulin Human Lispro (Insulin Lispro 100 Unit/Ml 3 Ml Vial) 0 unit SUBCUT QIDACHS [facility]; Protocol Last Admin: 01/09/22 11:22 Dose: Not Given Documented by: SRINIVAS Non-Admin Reason: No Insulin Coverage Lidocaine (Lidocaine 4 % Patch Adh..Patch) 1 patch TRANSDERMA DAILY [facility]; Protocol Last Admin: 01/09/22 10:08 Dose: Not Given Documented by: SRINIVAS Non-Admin Reason: Patient Refused Loratadine (Loratadine 10 Mg Tablet) 10 mg PO DAILY [facility] Last Admin: 01/09/22 08:38 Dose: 10 mg Documented by: SRINIVAS Melatonin (Melatonin 3 Mg Tablet) 6 mg PO BEDTIME PRN PRN Reason: Insomnia Last Admin: 01/06/22 21:11 Dose: 6 mg Documented by: JOHNATHAN Methadone HCl (Methadone Hcl 20 Mg/2 Ml Oral.Conc) 50 mg PO DAILY [facility] Last Admin: 01/09/22 08:37 Dose: 50 mg Documented by: SRINIVAS Montelukast Sodium (Montelukast Sodium 10 Mg Tablet) 10 mg PO BEDTIME [facility] Last Admin: 01/08/22 20:55 Dose: 10 mg Documented by: MARIAMA Sacubitril/Valsartan (Sacubitril/Valsartan 1 Tab Tablet) 1 tab PO BID [facility]; Protocol Last Admin: 01/09/22 08:37 Dose: 1 tab Documented by: SRINIVAS Sodium Chloride (0.9 % Sodium Chloride Flush 3 Ml Syringe) 3 ml IVFLUSH QSHIFT [facility] Last Admin: 01/09/22 08:38 Dose: 3 ml Documented by: SRINIVAS Tamsulosin HCl (Tamsulosin Hcl 0.4 Mg Capsule) 0.4 mg PO DAILY@1730 [facility] Last Admin: 01/08/22 16:09 Dose: 0.4 mg Documented by: ANDREA Labs CBC & Chem 7: 01/08/22 07:00 01/08/22 07:00 Labs: Laboratory Results - last 24 hr 01/08/22 01/08/22 01/09/22 15:37 19:44 07:02 POC Glucose 74 149 H 80 01/09/22 10:49 POC Glucose 144 H Assessment and Plan (1) Osteomyelitis: Status: Acute (2) Peripheral vascular disease: Status: Acute (3) Acute on chronic HFrEF (heart failure with reduced ejection fraction): Status: Acute (4) Diabetes mellitus, type 2: Status: Acute Plan 51yo M with ischemic cardiomyopathy admitted for CHF exacerbation and also found to have DM foot ulcer with osteomyelitis 1.Acute/chronic HFrEF LVEF 15-20%, grade 3 diastolic dysfunction 10/08/21 -well compensated on curent therapies -follow renals/divalents -adjust therapies as BP dictates 2.Diabetic foot ulcer with acute osteomyelitis - blood cultures negative thus far; daptomycin (). will order PICC when facility available; if no accepting facility secondary to IVDA HX; Linezolid/Levaquin. Discussed with ID - seen by vascular; angiogram +/-plasty 01/10/22 3. PAD( Left posterior tibial artery occlusion) - discussed with Vasc Surg. Angio 01/10/21 - continue current therapies 4. COPD - acceptable control on current therapies - adjust as indicated 5. DMII ( A1c 6.6) - basal/bolus insulin VTE - LMWH Full Code Quality Stroke Does the patient have a stroke diagnosis?: No VTE Prior VTE?: No VTE Risk Level:: Medical - moderate - high VTE Device Contraindication: Treatment Not Indicated VTE Drug Contraindication: N/A - Med Ordered
[2022-01-09] MEDS: DAPTOmycin 500 MG in 0.9 % Sodium Chloride 50 ML 100 MG IV (13:10)
[2022-01-09 15:52] LABS: Glucose, Whole Blood 117 mg/dL (60-115)
[2022-01-09] MEDS: Tamsulosin HCL 0.4 MG CAPSULE PO (17:34)
[2022-01-09 19:43] LABS: Glucose, Whole Blood 240 mg/dL (60-115)
[2022-01-09] MEDS: Montelukast Sodium 10 MG TABLET PO (22:01)
[2022-01-09] MEDS: Insulin Glargine,Hum.rec.anlog 100 UNIT/ML 10 ML VIAL 12 UNIT SUBCUT (22:03)
[2022-01-09] MEDS: Insulin Lispro 100 UNIT/ML 3 ML VIAL SUBCUT (22:03)
[2022-01-10] VITALS (11 sets, daily range): BP systolic 104–128; BP diastolic 60–75; PULSE 58–88; RESP 16–20; TEMP 36.1–36.8; O2SAT 96–100; BMI 27.5
[2022-01-10 02:31] LABS: Glucose, Whole Blood 57 mg/dL (60-115)
[2022-01-10 03:11] LABS: Glucose, Whole Blood 78 mg/dL (60-115)
[2022-01-10 05:53] LABS: Glucose, Whole Blood 127 mg/dL (60-115)
[2022-01-10 06:05] LABS: MANUAL DIFF FLAG NO
[2022-01-10 06:13] LABS: Basophils Percent Auto 0.5 % (0-2); Eosinophils Absolute Auto 0.3 X10*3/uL (0.0-0.4); Eosinophils Percent Auto 4.6 % (0-4); Hematocrit 36.9 % (42.0-52.0); Hemoglobin 11.3 g/dl (14.0-18.0); Imm Gran Abs Auto 0.03 X10*3/uL (0.00-0.03); Imm Gran Pct Auto 0.5 % (0.0-0.4); Lymphocytes Absolute Auto 0.8 X10*3/uL (1.2-4.9); Lymphocytes Percent Auto 12.1 % (20-40); Mean Corpuscular HGB Conc 30.6 g/dl (31.0-36.0); Mean Corpuscular Hemoglobin 25.8 pg (27.0-33.0); Mean Corpuscular Volume 84.2 fL (80.0-98.0); Monocytes Absolute Auto 0.8 X10*3/uL (0.1-1.2); Monocytes Percent Auto 12.4 % (2-11); Neutrophils Absolute Auto 4.4 x10*3/uL (2.0-8.3); Neutrophils Percent Auto 69.9 % (45-73); Platelet Count 280 X10*3/uL (160-400); Red Blood Count 4.38 X10*6/uL (4.60-5.80); Red Cell Distribution Width 15.9 % (11.0-16.0); White Blood Count 6.3 X10*3/uL (4.8-10.8)
[2022-01-10 06:22] LABS: INTERNATIONAL NORM RATIO 1.1 (0.9-1.1)
[2022-01-10 06:30] LABS: Alanine Aminotransferase 19 U/L (0-40); Albumin Level 3.3 g/dL (3.5-5.0); Alkaline Phosphatase 74 U/L (39-117); Anion Gap 12 (12-20); Aspartate Amino Transferase 28 U/L (5-37); Bilirubin Total 0.5 mg/dL (0.0-1.0); Blood Urea Nitrogen 49 mg/dL (9-16); Calcium 9.4 mg/dL (8.4-10.2); Carbon Dioxide 31 mmol/L (22-29); Chloride 95 mmol/L (96-108); Creatinine Clr Calc Pharmacy 76.7; Estimated Glomerular Filt Rate > 60; Glucose Fasting 109 mg/dL (60-99); Potassium 4.4 mmol/L (3.3-5.1); Sodium 134 mmol/L (135-145); Total Protein 6.6 g/dL (6.5-8.0)
[2022-01-10 07:35] LABS: Glucose, Whole Blood 91 mg/dL (60-115)
[2022-01-10] MEDS: Fluticasone/Vilanterol 200/25 BLST.W.DEV 1 PUFF INHALE (07:42)
[2022-01-10 08:03] LABS: C Reactive Protein 2.38 mg/dL (< or = 0.50)
[2022-01-10 08:10] LABS: Magnesium 2.1 mg/dL (1.6-2.6)
[2022-01-10 08:20] LABS: B Type Natriuretic Peptide 2019 pg/mL (<100)
[2022-01-10] MEDS: Clopidogrel Bisulfate 75 MG TABLET PO (08:55)
[2022-01-10] MEDS: Gabapentin 100 MG CAPSULE 200 MG PO ×2 (08:55→21:08)
[2022-01-10] MEDS: Bumetanide 1 MG TABLET 2 MG PO (08:56)
[2022-01-10] MEDS: carvediloL 3.125 MG TABLET PO ×2 (08:56→21:08)
[2022-01-10] MEDS: 0.9 % Sodium Chloride Flush 3 ML SYRINGE IVFLUSH ×2 (08:56→21:10)
[2022-01-10] MEDS: Loratadine 10 MG TABLET PO (08:56)
[2022-01-10] MEDS: Aspirin Enteric Coated 81 MG TABLET.DR PO (08:56)
[2022-01-10] MEDS: Sacubitril/Valsartan 24/26 1 TAB TABLET PO ×2 (08:56→21:08)
[2022-01-10] MEDS: methADONE HCl 20 MG/2 ML ORAL.CONC 50 MG PO (08:57)
--- NOTE | 2022-01-10 09:14 | PC.NURSE ---
Pt going for angiogram/plasty 1330 today. Aspirin 81mgPO given per Dr. Delcid.
[2022-01-10 11:37] LABS: Glucose, Whole Blood 60 mg/dL (60-115)
[2022-01-10] MEDS: Dextrose 50 % 25 GM/50 ML SYRINGE IVPUSH (11:46)
[2022-01-10 12:24] LABS: Glucose, Whole Blood 147 mg/dL (60-115)
[2022-01-10] MEDS: DAPTOmycin 500 MG in 0.9 % Sodium Chloride 50 ML 100 MG IV (12:39)
--- NOTE | 2022-01-10 13:18 | MHC.CM.PN ---
Per ROUNDS discussion, Patient is having an Angiogram of his (L) Foot today and remains on IV Dapto. Goal is [facility] (METHADONE)Possibly on 01/12/22.Patient cannot get PICC until [facility] bed is secured. CM will follow.
--- NOTE | 2022-01-10 14:38 | P.PNIM_ITS ---
Subjective Subjective Date of Service: 01/10/22 Interval History: Unable to empty bladder; PVR 600 cc+ C/o very itchy bumps on legs, back, arms; worse at night To OR for revascularization today Review of Systems Review of Systems: Yes all other systems are reviewed and are negative Physical Exam Vital Signs: Vital Signs: Last Vital Signs Temp 97.9 F 01/10/22 11:26 Pulse 58 01/10/22 11:26 Resp 20 01/10/22 11:26 BP 104/64 01/10/22 11:26 Pulse Ox 96 01/10/22 11:26 BMI result Body Mass Index 27.5 Gen: in no acute distress HEENT: sclera anicteric, moist mucus membranes Neck: supple Lungs: clear to auscultation bilaterally Heart: regular rate and rhythm, no murmurs Abd: soft, non-tender, non-distended Ext: s/p R BKA, 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 Skin: warm/well-perfused, excoriated papules on waistline, arms, legs Neuro: alert and oriented x3, no focal findings Psych: appropriate affect Objective Data Active Medications Acetaminophen (Acetaminophen 325 Mg Tablet) 650 mg PO Q6H PRN PRN Reason: Pain, Mild (Pain Scale 1-3) Last Admin: 01/07/22 22:45 Dose: 650 mg Documented by: GAUDENCIO Aspirin (Aspirin Enteric Coated 81 Mg Tablet.Dr) 81 mg PO DAILY [facility] Last Admin: 01/10/22 08:56 Dose: 81 mg Documented by: CHRISTINE Bumetanide (Bumetanide 1 Mg Tablet) 2 mg PO DAILY [facility]; Protocol Last Admin: 01/10/22 08:56 Dose: 2 mg Documented by: CHRISTINE Carvedilol (Carvedilol 3.125 Mg Tablet) 3.125 mg PO BID [facility]; Protocol Last Admin: 01/10/22 08:56 Dose: 3.125 mg Documented by: CHRISTINE Clopidogrel Bisulfate (Clopidogrel Bisulfate 75 Mg Tablet) 75 mg PO DAILY [facility] Last Admin: 01/10/22 08:55 Dose: 75 mg Documented by: CHRISTINE Dextrose (Dextrose 50 % 25 Gm/50 Ml Syringe) 25 gm IVPUSH Q15M PRN; Protocol PRN Reason: per Hypoglycemia Standing Ord. Last Admin: 01/10/22 11:46 Dose: 25 gm Documented by: CHRISTINE Docusate Sodium (Docusate Sodium 100 Mg Capsule) 100 mg PO DAILY PRN PRN Reason: Constipation Enoxaparin Sodium (Enoxaparin Sodium 40 Mg/0.4 Ml Syringe) 40 mg SUBCUT Q24H [facility] Last Admin: 01/10/22 05:34 Dose: Not Given Documented by: SOM Non-Admin Reason: patient refused/procedure today Fluticasone Propionate (Fluticasone Propionate Nasal 16 Gm [place]) 1 spray NO STRIL-B DAILY [facility] Last Admin: 01/10/22 08:59 Dose: Not Given Documented by: CHRISTINE Non-Admin Reason: Patient Refused Fluticasone/Vilanterol (Fluticasone/Vilanterol 200/25 Blst.W.Dev) 1 puff INHALE RDAILY [facility] Last Admin: 01/10/22 07:42 Dose: 1 puff Documented by: ROSANNE Gabapentin (Gabapentin 100 Mg Capsule) 200 mg PO TID [facility] Last Admin: 01/10/22 08:55 Dose: 200 mg Documented by: CHRISTINE Glucose (Glucose Gel 15 Gm Gel..Gram.) 15 gm PO Q15M PRN; Protocol PRN Reason: per Hypoglycemia Standing Ord. Daptomycin 500 mg/ Sodium (Chloride) 60 mls @ 100 mls/hr IV Q24H [facility] Last Infusion: 01/10/22 14:10 Dose: 0 mls/hr Documented by: CHRISTINE Sodium Chloride (Ns) 1,000 mls @ 100 mls/hr IVCONT .Q10H [facility] Insulin Glargine (Insulin Glargine,Hum.Rec.Anlog 100 Unit/Ml 10 Ml Vial) 12 unit SUBCUT BEDTIME [facility] Last Admin: 01/09/22 22:03 Dose: 12 unit Documented by: SOM Insulin Human Lispro (Insulin Lispro 100 Unit/Ml 3 Ml Vial) 0 unit SUBCUT QIDACHS [facility]; Protocol Last Admin: 01/10/22 12:02 Dose: Not Given Documented by: CHRISTINE Non-Admin Reason: No Insulin Coverage Lidocaine (Lidocaine 4 % Patch Adh..Patch) 1 patch TRANSDERMA DAILY [facility]; Protocol Last Admin: 01/10/22 08:57 Dose: Not Given Documented by: CHRISTINE Non-Admin Reason: Patient Refused Loratadine (Loratadine 10 Mg Tablet) 10 mg PO DAILY [facility] Last Admin: 01/10/22 08:56 Dose: 10 mg Documented by: CHRISTINE Melatonin (Melatonin 3 Mg Tablet) 6 mg PO BEDTIME PRN PRN Reason: Insomnia Last Admin: 01/06/22 21:11 Dose: 6 mg Documented by: JOHNATHAN Methadone HCl (Methadone Hcl 20 Mg/2 Ml Oral.Conc) 50 mg PO DAILY [facility] Last Admin: 01/10/22 08:57 Dose: 50 mg Documented by: CHRISTINE Montelukast Sodium (Montelukast Sodium 10 Mg Tablet) 10 mg PO BEDTIME [facility] Last Admin: 01/09/22 22:01 Dose: 10 mg Documented by: SOM Permethrin (Permethrin 5 % Cream 60 Gm Tube) 1 appl TOPICAL ONCE ONE; Protocol Stop: 01/10/22 21:01 Sacubitril/Valsartan (Sacubitril/Valsartan 1 Tab Tablet) 1 tab PO BID [facility]; Protocol Last Admin: 01/10/22 08:56 Dose: 1 tab Documented by: CHRISTINE Sodium Chloride (0.9 % Sodium Chloride Flush 3 Ml Syringe) 3 ml IVFLUSH QSHIFT [facility] Last Admin: 01/10/22 08:56 Dose: 3 ml Documented by: CHRISTINE Tamsulosin HCl (Tamsulosin Hcl 0.4 Mg Capsule) 0.4 mg PO DAILY@1730 [facility] Last Admin: 01/09/22 17:34 Dose: 0.4 mg Documented by: SRINIVAS Labs CBC & Chem 7: 01/10/22 05:43 01/10/22 05:43 Labs: Laboratory Results - last 24 hr 01/09/22 01/09/22 01/10/22 15:43 19:20 02:27 MCV MCH MCHC RDW Plt Count MPV Immature Gran % (Auto) Neut % (Auto) Lymph % (Auto) [place] % (Auto) Eos % (Auto) Baso % (Auto) Lymph # (Auto) [place] # (Auto) Eos # (Auto) Baso # (Auto) Abs Immat Gran (auto) Absolute Neuts (auto) Absolute Nucleated RBC Nucleated RBC % (auto) PT INR Anion Gap Estim Creat Clear Calc Estimated GFR POC Glucose 117 H 240 H 57 L* Fasting Glucose Calcium Magnesium Total Bilirubin AST ALT Alkaline Phosphatase Total Creatine Kinase C-Reactive Protein B-Natriuretic Peptide Total Protein Albumin 01/10/22 01/10/22 01/10/22 03:06 05:43 05:43 MCV 84.2 MCH 25.8 L MCHC 30.6 L RDW 15.9 Plt Count 280 MPV 10.0 Immature Gran % (Auto) 0.5 H Neut % (Auto) 69.9 Lymph % (Auto) 12.1 L [place] % (Auto) 12.4 H Eos % (Auto) 4.6 H Baso % (Auto) 0.5 Lymph # (Auto) 0.8 L [place] # (Auto) 0.8 Eos # (Auto) 0.3 Baso # (Auto) 0.0 Abs Immat Gran (auto) 0.03 Absolute Neuts (auto) 4.4 Absolute Nucleated RBC 0.000 Nucleated RBC % (auto) 0.0 PT 12.0 INR 1.1 Anion Gap Estim Creat Clear Calc Estimated GFR POC Glucose 78 Fasting Glucose Calcium Magnesium Total Bilirubin AST ALT Alkaline Phosphatase Total Creatine Kinase C-Reactive Protein B-Natriuretic Peptide Total Protein Albumin 01/10/22 01/10/22 01/10/22 05:43 05:50 06:03 MCV MCH MCHC RDW Plt Count MPV Immature Gran % (Auto) Neut % (Auto) Lymph % (Auto) [place] % (Auto) Eos % (Auto) Baso % (Auto) Lymph # (Auto) [place] # (Auto) Eos # (Auto) Baso # (Auto) Abs Immat Gran (auto) Absolute Neuts (auto) Absolute Nucleated RBC Nucleated RBC % (auto) PT INR Anion Gap 12 Estim Creat Clear Calc 76.7 Estimated GFR > 60 POC Glucose 127 H Fasting Glucose 109 H Calcium 9.4 Magnesium 2.1 Total Bilirubin 0.5 AST 28 ALT 19 Alkaline Phosphatase 74 Total Creatine Kinase 35 L D C-Reactive Protein 2.38 H B-Natriuretic Peptide 2019 H Total Protein 6.6 Albumin 3.3 L 01/10/22 01/10/22 01/10/22 07:25 11:25 12:21 MCV MCH MCHC RDW Plt Count MPV Immature Gran % (Auto) Neut % (Auto) Lymph % (Auto) [place] % (Auto) Eos % (Auto) Baso % (Auto) Lymph # (Auto) [place] # (Auto) Eos # (Auto) Baso # (Auto) Abs Immat Gran (auto) Absolute Neuts (auto) Absolute Nucleated RBC Nucleated RBC % (auto) PT INR Anion Gap Estim Creat Clear Calc Estimated GFR POC Glucose 91 60 147 H Fasting Glucose Calcium Magnesium Total Bilirubin AST ALT Alkaline Phosphatase Total Creatine Kinase C-Reactive Protein B-Natriuretic Peptide Total Protein Albumin Assessment and Plan (1) Osteomyelitis: Status: Acute (2) Peripheral vascular disease: Status: Acute (3) Acute on chronic HFrEF (heart failure with reduced ejection fraction): Status: Acute (4) Diabetes mellitus, type 2: Status: Acute Plan hospital d#[id number] 51yo M with ischemic cardiomyopathy admitted for CHF exacerbation and also found to have DM foot ulcer with osteomyelitis and underlying PAD # acute/chronic HFrEF LVEF 15-20%, grade 3 diastolic dysfunction 10/08/21 - diuresed and now euvolemic on maintenance bumetanide - continue Entresto + carvedilol; consider adding empagliflozin as outpt; to consider CardioMEMS as outpt # DM ulcer with acute osteomyelitis - blood cultures negative; daptomycin d#. will order PICC when facility available; if no accepting facility secondary to IVDA hx, to take PO linezolid + levofloxacin per ID # PAD with left posterior tibial artery occlusion - continue DAPT, statin - to OR for angiogram/plasty today # rash - treat presumptively for scabies with 5% permethrin # COPD - continue ICS/LABA, prn COREEN # DM2, A1c 6.6 - basal/bolus insulin # opioid use disorder - continue methadone # VTE ppx - LMWH # dispo - looking for STR placement for wound care/IV ABX Quality Stroke Does the patient have a stroke diagnosis?: No VTE Prior VTE?: No VTE Risk Level:: Medical - moderate - high VTE Device Contraindication: Treatment Not Indicated VTE Drug Contraindication: N/A - Med Ordered
[2022-01-10] MEDS: 0.9 % Sodium Chloride 1,000 ML 100 ML IVCONT (14:44)
--- NOTE | 2022-01-10 14:59 | PC.NURSE ---
applied soft foam dressing to coccyx area. redness with blanching noted. no skin breakdown at this time stage ii. informed lobo vaca via vannesa cpnnect.
--- NOTE | 2022-01-10 16:28 | P.OP_ITS ---
Operative Note Operative Note Date of Service: 01/10/22 Narrative: Angiogram report from [facility] Preoperative diagnosis: Atherosclerosis of left lower extremity with nonhealing ulcer Postoperative diagnosis: Same Procedure: 1. Ultrasound-guided right common femoral access 2. Aortogram with left lower extremity runoff 3. Angioplasty of left peroneal artery Surgeon:Stan Vaughn M.D., FACS, RPVI Band Presser:None Anesthesia: Local with moderate conscious sedation. Total intraservice moderate sedation time was 47 minutes. I monitored the patient's level of consciousness and physiologic status continuously throughout the procedure. Specimens:none Drains:none Estimated blood loss: Less than 10 ml Implant: None Indications: 51-year-old gentleman with a history of diabetes drug abuse has nonhealing left great toe ulcer he now presents for endovascular intervention The patient has signed the informed consent after reviewing risks, complications, benefits, and alternatives previously discussed with the patient. The patient was given the opportunity to ask any additional questions or voice any concerns. All questions were answered to the patient's satisfaction. Residential Advisor was present during the duration of consent Procedure in detail: Patient was brought to the angiography suite prior to which a time-out was called for patient identification and site verification. Bilateral groins were prepped and draped in the standard surgical fashion. Under ultrasound guidance right common femoral was punctured with micro puncture needle and wire. Subsequently a precision 4 Finnish sheath was then placed. Bentson wire was advanced to the level of the aorta. 4 Finnish Flush catheter was brought up and parked at the level of the renal arteries. Aortogram was then undertaken. Catheter was brought down to the level of the iliac bifurcation. Iliacs were subsequently imaged. Catheter was then brought in up and over to the left side SFA. Runoff study was then undertaken. We identified stenosis at the origin of the peroneal artery. We advanced a 035 glidewire Advantage down to this level. We administered 5000 units of systemic heparin. After 5 minutes of circulation time up and over 6 Finnish sheath was then placed. We then confirmed true lumen with a trail Blazer catheter instilled with contrast. Once this was accomplished we brought in a 3 x 40 regular balloon. This was plasty did with 2 separate insufflations at the origin of the peroneal artery. Once this was accomplished completion angiogram demonstrated excellent result catheter wire sheath was brought back to the ipsilateral side StarClose closure device was then deployed. Patient was returned to recovery with stable vitals Interpretation of films: 1. Ultrasound demonstrates appropriate femoral puncture. Image of which was saved. 2. Aortogram demonstrates appropriate caliber aorta. Minimal disease. Appropriate take-off of the renals. 3. Iliac images demonstrate minimal disease 4. Left Leg Common femoral artery: Minimal disease Profundus Femoris: No significant disease Superficial femoral artery: Patent all the way through with minimal disease at Juan's canal Popliteal artery (p1,p2,p3): Patent Anterior tibial artery: Occludes just beyond origin Peroneal artery: Patent all the way through down to the level of the ankle Posterior tibial artery: Occluded Dorsalis pedis/plantar arch: Minimal fell Conclusion: 1. Successful plasty of peroneal artery. Tenuous 1 vessel runoff. High risk of amputation. 2. Anticoagulation status: Continue on aspirin and Plavix This note is constructed using voice recognition software. While every effort has been made to ensure accuracy, english adjunct faculty errors may have been included. Thank you for allowing me to participate in the care of your patient. Yours sincerely, Stan Vaughn MD, FACS, R.P.V.I.
[2022-01-10] MEDS: iohexoL 300 MG/ML 100 ML INFUS..BTL IV (16:59)
[2022-01-10 18:36] LABS: Glucose, Whole Blood 77 mg/dL (60-115)
[2022-01-10 20:06] LABS: Glucose, Whole Blood 151 mg/dL (60-115)
[2022-01-10] MEDS: Acetaminophen 325 MG TABLET 650 MG PO (21:08)
[2022-01-10] MEDS: Montelukast Sodium 10 MG TABLET PO (21:08)
[2022-01-10] MEDS: Insulin Glargine,Hum.rec.anlog 100 UNIT/ML 10 ML VIAL 12 UNIT SUBCUT (21:09)
[2022-01-10] MEDS: Melatonin 3 MG TABLET 6 MG PO (21:09)
[2022-01-10] MEDS: Insulin Lispro 100 UNIT/ML 3 ML VIAL SUBCUT (21:09)
[2022-01-10] MEDS: Permethrin 5 % Cream 60 GM TUBE 1 APPL TOPICAL (21:10)
--- NOTE | 2022-01-10 22:29 | PC.NURSE ---
Patient refusing to have permethrin cream applied to his entire body. Pt allowing this RN to put cream ONLY on his back. Patient educated on why cream is being used but still refusing.
[2022-01-11] VITALS (7 sets, daily range): BP systolic 90–113; BP diastolic 49–75; PULSE 59–74; RESP 16–18; TEMP 15–36.9; O2SAT 95–100; BMI 27.2
[2022-01-11] MEDS: Fluticasone/Vilanterol 200/25 BLST.W.DEV 1 PUFF INHALE (07:38)
[2022-01-11 07:46] LABS: Glucose, Whole Blood 70 mg/dL (60-115)
[2022-01-11] MEDS: methADONE HCl 20 MG/2 ML ORAL.CONC 50 MG PO (10:16)
[2022-01-11] MEDS: 0.9 % Sodium Chloride Flush 3 ML SYRINGE IVFLUSH ×2 (10:17→16:31)
[2022-01-11] MEDS: Lidocaine 4 % Patch ADH..PATCH 1 PATCH TRANSDERMA (10:17)
[2022-01-11] MEDS: carvediloL 3.125 MG TABLET PO ×2 (10:18→21:52)
[2022-01-11] MEDS: Sacubitril/Valsartan 24/26 1 TAB TABLET PO ×2 (10:18→21:52)
[2022-01-11] MEDS: Loratadine 10 MG TABLET PO (10:18)
[2022-01-11] MEDS: Gabapentin 100 MG CAPSULE 200 MG PO ×3 (10:18→21:52)
[2022-01-11] MEDS: Aspirin Enteric Coated 81 MG TABLET.DR PO (10:18)
[2022-01-11] MEDS: Bumetanide 1 MG TABLET 2 MG PO (10:18)
[2022-01-11] MEDS: Clopidogrel Bisulfate 75 MG TABLET PO (10:19)
--- NOTE | 2022-01-11 11:17 | HO.PM.IMPN ---
Subjective Subjective Date of Service: 01/11/22 Interval History: This history was taken in Turkmen from the patient. 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 Skin: warm/well-perfused, excoriated papules on waistline, arms, legs Neuro: alert and oriented x3, no focal findings Psych: appropriate affect Objective Data Active Medications Acetaminophen (Acetaminophen 325 Mg Tablet) 650 mg PO Q6H PRN PRN Reason: Pain, Mild (Pain Scale 1-3) Last Admin: 01/10/22 21:08 Dose: 650 mg Documented by: SCOOTER Aspirin (Aspirin Enteric Coated 81 Mg Tablet.) 81 mg PO DAILY [facility] Last Admin: 01/11/22 10:18 Dose: 81 mg Documented by: FAIZA Bumetanide (Bumetanide 1 Mg Tablet) 2 mg PO DAILY [facility]; Protocol Last Admin: 01/11/22 10:18 Dose: 2 mg Documented by: FAIZA Carvedilol (Carvedilol 3.125 Mg Tablet) 3.125 mg PO BID [facility]; Protocol Last Admin: 01/11/22 10:18 Dose: 3.125 mg Documented by: FAIZA Clopidogrel Bisulfate (Clopidogrel Bisulfate 75 Mg Tablet) 75 mg PO DAILY [facility] Last Admin: 01/11/22 10:19 Dose: 75 mg Documented by: FAIZA Dextrose (Dextrose 50 % 25 Gm/50 Ml Syringe) 25 gm IVPUSH Q15M PRN; Protocol PRN Reason: per Hypoglycemia Standing Ord. Last Admin: 01/10/22 11:46 Dose: 25 gm Documented by: CHRISTINE Docusate Sodium (Docusate Sodium 100 Mg Capsule) 100 mg PO DAILY PRN PRN Reason: Constipation Enoxaparin Sodium (Enoxaparin Sodium 40 Mg/0.4 Ml Syringe) 40 mg SUBCUT Q24H [facility] Last Admin: 01/11/22 06:15 Dose: Not Given Documented by: SCOOTER Non-Admin Reason: Patient Refused Fluticasone Propionate (Fluticasone Propionate Nasal 16 Gm [place]) 1 spray NOSTRIL-B DAILY [facility] Last Admin: 01/11/22 10:19 Dose: Not Given Documented by: FAIZA Non-Admin Reason: Patient Refused Fluticasone/Vilanterol (Fluticasone/Vilanterol 200/25 Blst.W.Dev) 1 puff INHALE RDAILY [facility] Last Admin: 01/11/22 07:38 Dose: 1 puff Documented by: RICKEY Gabapentin (Gabapentin 100 Mg Capsule) 200 mg PO TID [facility] Last Admin: 01/11/22 10:18 Dose: 200 mg Documented by: FAIZA Glucose (Glucose Gel 15 Gm Gel..Gram.) 15 gm PO Q15M PRN; Protocol PRN Reason: per Hypoglycemia Standing Ord. Daptomycin 500 mg/ Sodium (Chloride) 60 mls @ 100 mls/hr IV Q24H [facility] Last Infusion: 01/10/22 14:10 Dose: 0 mls/hr Documented by: CHRISTINE Insulin Glargine (Insulin Glargine,Hum.Rec.Anlog 100 Unit/Ml 10 Ml Vial) 12 unit SUBCUT BEDTIME [facility] Last Admin: 01/10/22 21:09 Dose: 12 unit Documented by: SCOOTER Insulin Human Lispro (Insulin Lispro 100 Unit/Ml 3 Ml Vial) 0 unit SUBCUT QIDACHS [facility]; Protocol Last Admin: 01/11/22 08:00 Dose: Not Given Documented by: FAIZA Non-Admin Reason: No Insulin Coverage Lidocaine (Lidocaine 4 % Patch Adh..Patch) 1 patch TRANSDERMA DAILY [facility]; Protocol Last Admin: 01/11/22 10:17 Dose: 1 patch Documented by: FAIZA Loratadine (Loratadine 10 Mg Tablet) 10 mg PO DAILY [facility] Last Admin: 01/11/22 10:18 Dose: 10 mg Documented by: FAIZA Melatonin (Melatonin 3 Mg Tablet) 6 mg PO BEDTIME PRN PRN Reason: Insomnia Last Admin: 01/10/22 21:09 Dose: 6 mg Documented by: SCOOTER Methadone HCl (Methadone Hcl 20 Mg/2 Ml Oral.Conc) 50 mg PO DAILY [facility] Last Admin: 01/11/22 10:16 Dose: 50 mg Documented by: FAIZA Montelukast Sodium (Montelukast Sodium 10 Mg Tablet) 10 mg PO BEDTIME [facility] Last Admin: 01/10/22 21:08 Dose: 10 mg Documented by: SCOOTER Sacubitril/Valsartan (Sacubitril/Valsartan 1 Tab Tablet) 1 tab PO BID [facility]; Protocol Last Admin: 01/11/22 10:18 Dose: 1 tab Documented by: FAIZA Sodium Chloride (0.9 % Sodium Chloride Flush 3 Ml Syringe) 3 ml IVFLUSH QSHIFT [facility] Last Admin: 01/11/22 10:17 Dose: 3 ml Documented by: FAIZA Tamsulosin HCl (Tamsulosin Hcl 0.4 Mg Capsule) 0.4 mg PO DAILY@1730 [facility] Last Admin: 01/10/22 19:56 Dose: Not Given Documented by: SCOOTER Non-Admin Reason: Off Unit: Surgery Labs CBC & Chem 7: 01/10/22 05:43 01/10/22 05:43 Labs: Laboratory Results - last 24 hr 01/10/22 01/10/22 01/10/22 11:25 12:21 18:32 POC Glucose 60 147 H 77 01/10/22 01/11/22 20:00 07:42 POC Glucose 151 H 70 Assessment and Plan (1) Osteomyelitis: Status: Acute (2) Peripheral vascular disease: Status: Acute (3) Acute on chronic HFrEF (heart failure with reduced ejection fraction): Status: Acute (4) Diabetes mellitus, type 2: Status: Acute Plan hospital d#13 51yo M with ischemic cardiomyopathy admitted for CHF exacerbation and also found to have DM foot ulcer with osteomyelitis and underlying PAD L peroneal angioplasty done 01/10/22 # acute/chronic HFrEF LVEF 15-20%, grade 3 diastolic dysfunction 10/08/21 - diuresed and now euvolemic, on maintenance bumetanide - continue Entresto + carvedilol; consider adding empagliflozin as outpt; to consider CardioMEMS as outpt # DM ulcer with acute osteomyelitis - blood cultures negative; daptomycin d#. will order PICC when facility available; if no accepting facility secondary to IVDA hx, to take PO linezolid + levofloxacin per ID # PAD with left posterior tibial artery occlusion - continue DAPT, statin - POD#1 L peroneal angioplasty # rash - treated presumptively for scabies with 5% permethrin # COPD - continue ICS/LABA, prn COREEN # DM2, A1c 6.6 - basal/bolus insulin [decrease glargine 12->10 units due to hypoglycemia] # opioid use disorder - continue methadone # VTE ppx - LMWH # dispo - looking for STR placement for wound care/IV ABX Quality Stroke Does the patient have a stroke diagnosis?: No VTE Prior VTE?: No VTE Risk Level:: Medical - moderate - high VTE Device Contraindication: Treatment Not Indicated VTE Drug Contraindication: N/A - Med Ordered
[2022-01-11 11:37] LABS: Glucose, Whole Blood 157 mg/dL (60-115)
[2022-01-11] MEDS: DAPTOmycin 500 MG in 0.9 % Sodium Chloride 50 ML 100 MG IV (12:28)
[2022-01-11] MEDS: Insulin Lispro 100 UNIT/ML 3 ML VIAL SUBCUT ×3 (12:28→21:52)
--- NOTE | 2022-01-11 14:22 | MHC.CM.PN ---
[facility] continues to follow; they have no available male bed at this time. has been made aware.
--- NOTE | 2022-01-11 15:39 | HO.VASCPN ---
Subjective Subjective Date of Service: 01/11/22 Patient reports: no new complaints and feels better Interval history: Patient seen and examined. No significant events overnight. Doing well status post endovascular intervention. He states that the numbness from his toes have improved. He does have motor of the feet. He now presents for routine follow-up. Physical Exam Vital Signs: Vital Signs: Last Vital Signs Temp 97.6 F 01/11/22 15:29 Pulse 70 01/11/22 15:29 Resp 18 01/11/22 15:29 BP 105/62 01/11/22 15:29 Pulse Ox 100 01/11/22 15:29 BMI result Body Mass Index 27.2 Skin: Wounds: amputation site (Right BKA well-healed) and wounds noted (Left great toe) Progress Note: A&P Assessment and plan (1) Peripheral arterial disease: Status: Acute Plan Patient doing well status post endovascular intervention. Stable from my perspective. Stable for discharge. Agree with long-term antibiotics. He is at risk for amputation as he only has 1 vessel runoff. He will need to remain on aspirin and Plavix for a minimum of 6 months. Thank you for allowing us to participate in his care. Fall Risk Details Current Medications: Current Medications Acetaminophen (Acetaminophen 325 Mg Tablet) 650 mg PO Q6H PRN PRN Reason: Pain, Mild (Pain Scale 1-3) Last Admin: 01/10/22 21:08 Dose: 650 mg Documented by: Aspirin (Aspirin Enteric Coated 81 Mg Tablet.) 81 mg PO DAILY [facility] Last Admin: 01/11/22 10:18 Dose: 81 mg Documented by: Bumetanide (Bumetanide 1 Mg Tablet) 2 mg PO DAILY [facility]; Protocol Last Admin: 01/11/22 10:18 Dose: 2 mg Documented by: Carvedilol (Carvedilol 3.125 Mg Tablet) 3.125 mg PO BID [facility]; Protocol Last Admin: 01/11/22 10:18 Dose: 3.125 mg Documented by: Clopidogrel Bisulfate (Clopidogrel Bisulfate 75 Mg Tablet) 75 mg PO DAILY [facility] Last Admin: 01/11/22 10:19 Dose: 75 mg Documented by: Dextrose (Dextrose 50 % 25 Gm/50 Ml Syringe) 25 gm IVPUSH Q15M PRN; Protocol PRN Reason: per Hypoglycemia Standing Ord. Last Admin: 01/10/22 11:46 Dose: 25 gm Documented by: Docusate Sodium (Docusate Sodium 100 Mg Capsule) 100 mg PO DAILY PRN PRN Reason: Constipation Enoxaparin Sodium (Enoxaparin Sodium 40 Mg/0.4 Ml Syringe) 40 mg SUBCUT Q24H [facility] Last Admin: 01/11/22 06:15 Dose: Not Given Documented by: Fluticasone Propionate (Fluticasone Propionate Nasal 16 Gm [place]) 1 spray NOSTRIL-B DAILY [facility] Last Admin: 01/11/22 10:19 Dose: Not Given Documented by: Fluticasone/Vilanterol (Fluticasone/Vilanterol 200/25 Blst.W.Dev) 1 puff INHALE RDAILY [facility] Last Admin: 01/11/22 07:38 Dose: 1 puff Documented by: Gabapentin (Gabapentin 100 Mg Capsule) 200 mg PO TID [facility] Last Admin: 01/11/22 10:18 Dose: 200 mg Documented by: Glucose (Glucose Gel 15 Gm Gel..Gram.) 15 gm PO Q15M PRN; Protocol PRN Reason: per Hypoglycemia Standing Ord. Daptomycin 500 mg/ Sodium (Chloride) 60 mls @ 100 mls/hr IV Q24H [facility] Last Infusion: 01/11/22 13:29 Dose: Infused Documented by: Insulin Glargine (Insulin Glargine,Hum.Rec.Anlog 100 Unit/Ml 10 Ml Vial) 10 unit SUBCUT BEDTIME [facility] Insulin Human Lispro (Insulin Lispro 100 Unit/Ml 3 Ml Vial) 0 unit SUBCUT QIDACHS [facility]; Protocol Last Admin: 01/11/22 12:28 Dose: 2 unit Documented by: Lidocaine (Lidocaine 4 % Patch Adh..Patch) 1 patch TRANSDERMA DAILY [facility]; Protocol Last Admin: 01/11/22 10:17 Dose: 1 patch Documented by: Loratadine (Loratadine 10 Mg Tablet) 10 mg PO DAILY [facility] Last Admin: 01/11/22 10:18 Dose: 10 mg Documented by: Melatonin (Melatonin 3 Mg Tablet) 6 mg PO BEDTIME PRN PRN Reason: Insomnia Last Admin: 01/10/22 21:09 Dose: 6 mg Documented by: Methadone HCl (Methadone Hcl 20 Mg/2 Ml Oral.Conc) 50 mg PO DAILY [facility] Last Admin: 01/11/22 10:16 Dose: 50 mg Documented by: Montelukast Sodium (Montelukast Sodium 10 Mg Tablet) 10 mg PO BEDTIME [facility] Last Admin: 01/10/22 21:08 Dose: 10 mg Documented by: Sacubitril/Valsartan (Sacubitril/Valsartan 1 Tab Tablet) 1 tab PO BID [facility]; Protocol Last Admin: 01/11/22 10:18 Dose: 1 tab Documented by: Sodium Chloride (0.9 % Sodium Chloride Flush 3 Ml Syringe) 3 ml IVFLUSH QSHIFT [facility] Last Admin: 01/11/22 10:17 Dose: 3 ml Documented by: Tamsulosin HCl (Tamsulosin Hcl 0.4 Mg Capsule) 0.4 mg PO DAILY@1730 [facility] Last Admin: 01/10/22 19:56 Dose: Not Given Documented by: Time Spent With Patient Time: Total time spent is greater than 50% in coordination of care (as documented) at patient's floor/unit and/or counseling patient: Time with patient: 15 - 24 minutes Procedures Date of Service Date of Service: 01/11/22 Quality Stroke Does the patient have a stroke diagnosis?: No VTE Prior VTE?: No VTE Risk Level:: Medical - moderate - high VTE Device Contraindication: Treatment Not Indicated VTE Drug Contraindication: N/A - Med Ordered
[2022-01-11 15:49] LABS: Glucose, Whole Blood 155 mg/dL (60-115)
[2022-01-11] MEDS: Tamsulosin HCL 0.4 MG CAPSULE PO (16:31)
[2022-01-11 20:11] LABS: Glucose, Whole Blood 205 mg/dL (60-115)
[2022-01-11] MEDS: Melatonin 3 MG TABLET 6 MG PO (21:51)
[2022-01-11] MEDS: Montelukast Sodium 10 MG TABLET PO (21:52)
[2022-01-11] MEDS: Insulin Glargine,Hum.rec.anlog 100 UNIT/ML 10 ML VIAL 10 UNIT SUBCUT (21:53)
[2022-01-12] VITALS: BP 93/50; PULSE 64; RESP 16; TEMP 36.2; O2SAT 100
[2022-01-12 04:00] VITALS: BP 119/63; PULSE 64; RESP 16; TEMP 36.3; O2SAT 100
[2022-01-12 06:00] VITALS: BMI 27.4
[2022-01-12 06:47] LABS: Hematocrit 36.4 % (42.0-52.0); Hemoglobin 11.2 g/dl (14.0-18.0); Mean Corpuscular HGB Conc 30.8 g/dl (31.0-36.0); Mean Corpuscular Hemoglobin 25.9 pg (27.0-33.0); Mean Corpuscular Volume 84.3 fL (80.0-98.0); Mean Platelet Volume 10.5 fL (9.4-12.4); Platelet Count 286 X10*3/uL (160-400); Red Blood Count 4.32 X10*6/uL (4.60-5.80); Red Cell Distribution Width 15.6 % (11.0-16.0); White Blood Count 6.5 X10*3/uL (4.8-10.8)
[2022-01-12 07:07] LABS: Anion Gap 12 (12-20); Blood Urea Nitrogen 36 mg/dL (9-16); Calcium 9.3 mg/dL (8.4-10.2); Carbon Dioxide 30 mmol/L (22-29); Chloride 97 mmol/L (96-108); Estimated Glomerular Filt Rate > 60; Glucose Random 65 mg/dL (60-115); Potassium 4.4 mmol/L (3.3-5.1); Sodium 135 mmol/L (135-145)
[2022-01-12 07:22] VITALS: BP 131/63; PULSE 74; RESP 18; TEMP 36.2; O2SAT 100
[2022-01-12] MEDS: Fluticasone/Vilanterol 200/25 BLST.W.DEV 1 PUFF INHALE (07:35)
[2022-01-12 07:36] VITALS: PULSE 76; RESP 18; O2SAT 99
[2022-01-12 07:53] LABS: Glucose, Whole Blood 120 mg/dL (60-115)
[2022-01-12] MEDS: Clopidogrel Bisulfate 75 MG TABLET PO (10:01)
[2022-01-12] MEDS: Aspirin Enteric Coated 81 MG TABLET.DR PO (10:01)
[2022-01-12] MEDS: 0.9 % Sodium Chloride Flush 3 ML SYRINGE IVFLUSH ×2 (10:01)
[2022-01-12] MEDS: Sacubitril/Valsartan 24/26 1 TAB TABLET PO (10:01)
[2022-01-12] MEDS: Bumetanide 1 MG TABLET 2 MG PO (10:01)
[2022-01-12] MEDS: carvediloL 3.125 MG TABLET PO (10:01)
[2022-01-12] MEDS: Loratadine 10 MG TABLET PO (10:02)
[2022-01-12] MEDS: Gabapentin 100 MG CAPSULE 200 MG PO ×2 (10:02→15:44)
[2022-01-12] MEDS: methADONE HCl 20 MG/2 ML ORAL.CONC 50 MG PO (10:02)
[2022-01-12] MEDS: Lidocaine 4 % Patch ADH..PATCH 1 PATCH TRANSDERMA (10:02)
--- NOTE | 2022-01-12 10:10 | HO.PM.IMPN ---
Subjective Subjective Date of Service: 01/12/22 Interval History: This history was taken in Swedish from the patient. No fever Foot pain controlled POD #2 revascularization Review of Systems Review of Systems: Yes all other systems are reviewed and are negative Physical Exam Vital Signs: Vital Signs: Last Vital Signs Temp 97.2 F 01/12/22 07:22 Pulse 74 01/12/22 07:22 Resp 18 01/12/22 07:36 BP 131/63 01/12/22 07:22 Pulse Ox 100 01/12/22 07:22 BMI result Body Mass Index 27.4 Gen: in no acute distress HEENT: sclera anicteric, moist mucus membranes Neck: supple Lungs: clear to auscultation bilaterally Heart: regular rate and rhythm, no murmurs Abd: soft, non-tender, non-distended Ext: s/p R BKA, 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 Skin: warm/well-perfused, excoriated papules on waistline, arms, legs Neuro: alert and oriented x3, no focal findings Psych: appropriate affect Objective Data Active Medications Acetaminophen (Acetaminophen 325 Mg Tablet) 650 mg PO Q6H PRN PRN Reason: Pain, Mild (Pain Scale 1-3) Last Admin: 01/10/22 21:08 Dose: 650 mg Documented by: SCOOTER Aspirin (Aspirin Enteric Coated 81 Mg Tablet.) 81 mg PO DAILY [facility] Last Admin: 01/12/22 10:01 Dose: 81 mg Documented by: FAIZA Bumetanide (Bumetanide 1 Mg Tablet) 2 mg PO DAILY [facility]; Protocol Last Admin: 01/12/22 10:01 Dose: 2 mg Documented by: FAIZA Carvedilol (Carvedilol 3.125 Mg Tablet) 3.125 mg PO BID [facility]; Protocol Last Admin: 01/12/22 10:01 Dose: 3.125 mg Documented by: FAIZA Clopidogrel Bisulfate (Clopidogrel Bisulfate 75 Mg Tablet) 75 mg PO DAILY [facility] Last Admin: 01/12/22 10:01 Dose: 75 mg Documented by: FAIZA Dextrose (Dextrose 50 % 25 Gm/50 Ml Syringe) 25 gm IVPUSH Q15M PRN; Protocol PRN Reason: per Hypoglycemia Standing Ord. Last Admin: 01/10/22 11:46 Dose: 25 gm Documented by: CHRISTINE Docusate Sodium (Docusate Sodium 100 Mg Capsule) 100 mg PO DAILY PRN PRN Reason: Constipation Enoxaparin Sodium (Enoxaparin Sodium 40 Mg/0.4 Ml Syringe) 40 mg SUBCUT Q24H [facility] Last Admin: 01/12/22 06:13 Dose: Not Given Documented by: BLANCA Non-Admin Reason: Patient Refused Fluticasone Propionate (Fluticasone Propionate Nasal 16 Gm [place]) 1 spray NOSTRIL-B DAILY [facility] Last Admin: 01/12/22 10:02 Dose: Not Given Documented by: FAIZA Non-Admin Reason: Patient Refused Fluticasone/Vilanterol (Fluticasone/Vilanterol 200/25 Blst.W.Dev) 1 puff INHALE RDAILY [facility] Last Admin: 01/12/22 07:35 Dose: 1 puff Documented by: RICKEY Gabapentin (Gabapentin 100 Mg Capsule) 200 mg PO TID [facility] Last Admin: 01/12/22 10:02 Dose: 200 mg Documented by: FAIZA Glucose (Glucose Gel 15 Gm Gel..Gram.) 15 gm PO Q15M PRN; Protocol PRN Reason: per Hypoglycemia Standing Ord. Daptomycin 500 mg/ Sodium (Chloride) 60 mls @ 100 mls/hr IV Q24H [facility] Last Infusion: 01/11/22 13:29 Dose: 0 mls/hr Documented by: FAIZA Insulin Glargine (Insulin Glargine,Hum.Rec.Anlog 100 Unit/Ml 10 Ml Vial) 10 unit SUBCUT BEDTIME [facility] Last Admin: 01/11/22 21:53 Dose: 10 unit Documented by: BLANCA Insulin Human Lispro (Insulin Lispro 100 Unit/Ml 3 Ml Vial) 0 unit SUBCUT QIDACHS [facility]; Protocol Last Admin: 01/12/22 07:56 Dose: Not Given Documented by: FAIZA Non-Admin Reason: No Insulin Coverage Lidocaine (Lidocaine 4 % Patch Adh..Patch) 1 patch TRANSDERMA DAILY [facility]; Protocol Last Admin: 01/12/22 10:02 Dose: 1 patch Documented by: FAIZA Loratadine (Loratadine 10 Mg Tablet) 10 mg PO DAILY [facility] Last Admin: 01/12/22 10:02 Dose: 10 mg Documented by: FAIZA Melatonin (Melatonin 3 Mg Tablet) 6 mg PO BEDTIME PRN PRN Reason: Insomnia Last Admin: 01/11/22 21:51 Dose: 6 mg Documented by: BLANCA Methadone HCl (Methadone Hcl 20 Mg/2 Ml Oral.Conc) 50 mg PO DAILY [facility] Last Admin: 01/12/22 10:02 Dose: 50 mg Documented by: FAIZA Montelukast Sodium (Montelukast Sodium 10 Mg Tablet) 10 mg PO BEDTIME [facility] Last Admin: 01/11/22 21:52 Dose: 10 mg Documented by: BLANCA Sacubitril/Valsartan (Sacubitril/Valsartan 1 Tab Tablet) 1 tab PO BID [facility]; Protocol Last Admin: 01/12/22 10:01 Dose: 1 tab Documented by: FAIZA Sodium Chloride (0.9 % Sodium Chloride Flush 3 Ml Syringe) 3 ml IVFLUSH QSHIFT [facility] Last Admin: 01/12/22 10:01 Dose: 3 ml Documented by: FAIZA Tamsulosin HCl (Tamsulosin Hcl 0.4 Mg Capsule) 0.4 mg PO DAILY@1730 [facility] Last Admin: 01/11/22 16:31 Dose: 0.4 mg Documented by: FAIZA Labs CBC & Chem 7: 01/12/22 06:09 01/12/22 06:09 Labs: Laboratory Results - last 24 hr 01/11/22 01/11/22 01/11/22 11:33 15:43 20:07 MCV MCH MCHC RDW Plt Count MPV Absolute Nucleated RBC Nucleated RBC % (auto) Anion Gap Estim Creat Clear Calc Estimated GFR POC Glucose 157 H 155 H 205 H Random Glucose Calcium 01/12/22 01/12/22 01/12/22 06:09 06:09 07:25 MCV 84.3 MCH 25.9 L MCHC 30.8 L RDW 15.6 Plt Count 286 MPV 10.5 Absolute Nucleated RBC 0.000 Nucleated RBC % (auto) 0.0 Anion Gap 12 Estim Creat Clear Calc 81.0 Estimated GFR > 60 POC Glucose 120 H Random Glucose 65 D Calcium 9.3 Assessment and Plan (1) Osteomyelitis: Status: Acute (2) Peripheral vascular disease: Status: Acute (3) Acute on chronic HFrEF (heart failure with reduced ejection fraction): Status: Acute (4) Diabetes mellitus, type 2: Status: Acute Plan hospital d#14 51yo M with ischemic cardiomyopathy admitted for CHF exacerbation and also found to have DM foot ulcer with osteomyelitis and underlying PAD s/p L peroneal angioplasty done 01/10/22 # DM ulcer with acute osteomyelitis - blood cultures negative; daptomycin d#. will order PICC when facility available; if no accepting facility secondary to IVDA hx, to take PO linezolid + levofloxacin per ID # PAD with left posterior tibial artery occlusion - continue DAPT, statin - POD#2 L peroneal angioplasty # acute/chronic HFrEF LVEF 15-20%, grade 3 diastolic dysfunction 10/08/21 - diuresed and now euvolemic, on maintenance bumetanide - continue Entresto + carvedilol; consider adding empagliflozin as outpt; to consider CardioMEMS as outpt\ # rash - treated presumptively for scabies with 5% permethrin # COPD - continue ICS/LABA, prn COREEN # DM2, A1c 6.6 - basal/bolus insulin [decrease glargine 12->10 units due to hypoglycemia] # opioid use disorder - continue methadone # VTE ppx - LMWH # dispo - looking for STR placement for wound care/IV ABX Quality Stroke Does the patient have a stroke diagnosis?: No VTE Prior VTE?: No VTE Risk Level:: Medical - moderate - high VTE Device Contraindication: Treatment Not Indicated VTE Drug Contraindication: N/A - Med Ordered
[2022-01-12 11:27] VITALS: BP 107/61; PULSE 68; RESP 18; TEMP 35.9; O2SAT 98
[2022-01-12 11:45] LABS: Glucose, Whole Blood 191 mg/dL (60-115)
[2022-01-12] MEDS: Insulin Lispro 100 UNIT/ML 3 ML VIAL SUBCUT (12:27)
[2022-01-12] MEDS: DAPTOmycin 500 MG in 0.9 % Sodium Chloride 50 ML 100 MG IV (12:27)
--- NOTE | 2022-01-12 15:32 | P.DS_ITS ---
DS: Providers Provider Date of Service: 01/12/22 Date of admission: 12/30/21 05:44 Primary care physician: Ashley Pendleton MD Consults: 12/30/21 06:01 Consult to Cardiology Routine Consulting Provider: Bishop Francisco Reason for consultation: chf 12/30/21 06:04 Addiction Medicine Routine Consulting Provider: Yin Pacheco Reason for consultation: pt on methadone 12/30/21 09:44 Consult to Infectious Diseases Routine Consulting Provider: Zully Roblero Reason for consultation: DM foot ulcer 12/31/21 07:55 Consult to General Surgery Routine Consulting Provider: [facility] [place] [facility] Sur[facility] Reason for consultation: acute osteomyelitis R 1st toe 01/01/22 08:32 Consult to Vascular Surgery Routine Consulting Provider: Stan Vaughn Reason for consultation: 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, 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 DS: Diagnosis Discharge Diagnosis (1) Osteomyelitis: Status: Acute (2) Peripheral vascular disease: Status: Acute (3) Acute on chronic HFrEF (heart failure with reduced ejection fraction): Status: Acute (4) Diabetes mellitus, type 2: Status: Acute (5) Diabetic foot ulcer with osteomyelitis: Status: Acute DS: Summary Hospital Course Hospital Course: from admission H+P by Ronald Mccullough, 12/30/21: 51-year-old male with a past medical history of hypertension, hyperlipidemia, diabetes, CHF with EF of 15-20%, peripheral vascular disease, anxiety, depression, bipolar disorder, BPH, opiate dependence, COPD, GERD, compression bridge fracture presented to the hospital with a chief complaint of shortness of breath. Patient reported that he felt acutely short of breath around midnight.? Mentioned that there was no electricity in his house and does very Code.? Hence presented to the hospital for further evaluation.? Also complained of mild chest discomfort which currently resolved.? Complains of cough with whitish sputum production.? Denies any fevers.? Denies any GI or symptoms. Reports that he has been complaint with his home medications. Mentions that he has chronic wound on his left great toe and has been following [facility].? And has been taking cephalexin. Review of all other systems is negative except mentioned above ER course: Per ER team patient on presentation noted to be in congestion; mildly tachycardic, having cough with frothy sputum, chest x-ray showed congestion; on labs noted to elevated proBNP; concern for acute CHF exacerbation.? Given Lasix 80 mg IV.? Admitted for further management. This 51yo M with ischemic cardiomyopathy/chronic HFrEF was admitted for acute CHF exacerbation and was also found to have a DM foot ulcer with osteomyelitis and underlying PAD. Hospital course by problem: # DM ulcer with acute osteomyelitis - Blood cultures negative. Treated with daptomycin x 13 days given multiple antibiotic allergies. PICC placed 01/12/22 to complete 29 more days of therapy as outpatient. Will need to follow up with ID and have weekly monitoring of labs [CBCd, CMP, and CPK]. Will hold statin while on daptomycin due to drug interaction. - Ulcer was debrided to healthy viable tissue including bone at bedside by General Surgery on 01/02/22. # PAD with left posterior tibial artery occlusion - Vascular Surgery was consulted. Patient underwent L peroneal angioplasty on 01/10/22. DAPT continued. Statin on hold as above. He has 1-vessel runoff and will need close follow-up due to high risk for future amputation. # acute/chronic HFrEF LVEF 15-20%, grade 3 diastolic dysfunction 10/08/21 - Cardiology was consulted. He was diuresed with IV furosemide to euvolemia. Switched to maintenance bumenatide. Neurohormonal modulation with Entresto [changed from losartan]; spironolactone stopped and carvedilol decreased due to low blood pressure. To consider adding empagliflozin and CardioMEMS device as outpatient; needs Cardiology follow-up. He was discharged to [facility] for short-term rehabilitation and IV antibiotic administration. Time Spent with Patient Time attestation: Total time spent providing and/or coordinating discharge services: 45 Discharge coordination time: Greater than 30 minutes Quality: Stroke Does the patient have a stroke diagnosis?: No Physical Exam Vital Signs: Vital Signs: Last Vital Signs Temp 96.6 F L 01/12/22 11:27 Pulse 68 01/12/22 11:27 Resp 18 01/12/22 11:27 BP 107/61 01/12/22 11:27 Pulse Ox 98 01/12/22 11:27 BMI result Body Mass Index 27.4 Gen: in no acute distress HEENT: sclera anicteric, moist mucus membranes Neck: supple Lungs: clear to auscultation bilaterally Heart: regular rate and rhythm, no murmurs Abd: soft, non-tender, non-distended Ext: s/p R BKA, 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 Skin: warm/well-perfused, excoriated papules on waistline, arms, legs Neuro: alert and oriented x3, no focal findings Psych: appropriate affect DS: Data Data Completed and Pending Completed studies during hospitalization [Text1]: Laboratory Results WBC 6.5 X10*3/uL (4.8-10.8) 01/12/22 06:09 RBC 4.32 X10*6/uL (4.60-5.80) L 01/12/22 06:09 Hgb 11.2 g/dl (14.0-18.0) L 01/12/22 06:09 Hct 36.4 % (42.0-52.0) L 01/12/22 06:09 MCV 84.3 fL (80.0-98.0) 01/12/22 06:09 MCH 25.9 pg (27.0-33.0) L 01/12/22 06:09 MCHC 30.8 g/dl (31.0-36.0) L 01/12/22 06:09 RDW 15.6 % (11.0-16.0) 01/12/22 06:09 Plt Count 286 X10*3/uL (160-400) 01/12/22 06:09 MPV 10.5 fL (9.4-12.4) 01/12/22 06:09 Immature Gran % (Auto) 0.5 % (0.0-0.4) H 01/10/22 05:43 Neut % (Auto) 69.9 % (45-73) 01/10/22 05:43 Lymph % (Auto) 12.1 % (20-40) L 01/10/22 05:43 [place] % (Auto) 12.4 % (2-11) H 01/10/22 05:43 Eos % (Auto) 4.6 % (0-4) H 01/10/22 05:43 Baso % (Auto) 0.5 % (0-2) 01/10/22 05:43 Lymph # (Auto) 0.8 X10*3/uL (1.2-4.9) L 01/10/22 05:43 [place] # (Auto) 0.8 X10*3/uL (0.1-1.2) 01/10/22 05:43 Eos # (Auto) 0.3 X10*3/uL (0.0-0.4) 01/10/22 05:43 Baso # (Auto) 0.0 X10*3/uL (0.0-0.2) 01/10/22 05:43 Abs Immat Gran (auto) 0.03 X10*3/uL (0.00-0.03) 01/10/22 05:43 Absolute Neuts (auto) 4.4 x10*3/uL (2.0-8.3) 01/10/22 05:43 Absolute Nucleated RBC 0.000 X10*3/uL (0.0-0.012) 01/12/22 06:09 Nucleated RBC % (auto) 0.0 /100WBC (0.0-0.2) 01/12/22 06:09 ESR 23 MM/HR (0-15) H 12/30/21 10:24 PT 12.0 SEC (9.9-13.0) 01/10/22 05:43 INR 1.1 (0.9-1.1) 01/10/22 05:43 VBG pH 7.33 (7.32-7.43) 12/30/21 02:37 VBG pCO2 55 mmHg 12/30/21 02:37 VBG pO2 34 mmHg 12/30/21 02:37 VBG HCO3 29 mmol/L (22-26) H 12/30/21 02:37 VBG O2 Saturation 43.0 % 12/30/21 02:37 VBG Base Excess 1.9 mmol/L 12/30/21 02:37 Sodium 135 mmol/L (135-145) 01/12/22 06:09 Potassium 4.4 mmol/L (3.3-5.1) 01/12/22 06:09 Chloride 97 mmol/L (96-108) 01/12/22 06:09 Carbon Dioxide 30 mmol/L (22-29) H 01/12/22 06:09 Anion Gap 12 (12-20) 01/12/22 06:09 BUN 36 mg/dL (9-16) H 01/12/22 06:09 Creatinine 1.03 mg/dL (0.5-1.4) 01/12/22 06:09 Estim Creat Clear Calc 81.0 01/12/22 06:09 Estimated GFR > 60 01/12/22 06:09 POC Glucose 191 mg/dL (60-115) H 01/12/22 11:33 Random Glucose 65 mg/dL (60-115) D 01/12/22 06:09 Fasting Glucose 109 mg/dL (60-99) H 01/10/22 05:43 Estimat Average Glucose 143 mg/dL 12/31/21 06:26 Hemoglobin A1c % 6.6 % 12/31/21 06:26 Calcium 9.3 mg/dL (8.4-10.2) 01/12/22 06:09 Magnesium 2.1 mg/dL (1.6-2.6) 01/10/22 05:43 Total Bilirubin 0.5 mg/dL (0.0-1.0) 01/10/22 05:43 Direct Bilirubin 0.5 mg/dL (0.0-0.5) 12/31/21 06:26 AST 28 U/L (5-37) 01/10/22 05:43 ALT 19 U/L (0-40) 01/10/22 05:43 Alkaline Phosphatase 74 U/L (39-117) 01/10/22 05:43 Total Creatine Kinase 35 U/L (38-174) L D 01/10/22 05:43 Troponin I High Sens 34.1 ng/L (<3.5-35.0) 12/30/21 06:57 C-Reactive Protein 2.38 mg/dL (< or = 0.50) H 01/10/22 05:43 B-Natriuretic Peptide 2019 pg/mL (<100) H 01/10/22 06:03 Total Protein 6.6 g/dL (6.5-8.0) 01/10/22 05:43 Albumin 3.3 g/dL (3.5-5.0) L 01/10/22 05:43 COVID-19 (JAMILA) Negative (Negative) 12/30/21 04:09 COVID-19 Clin Com See Note 12/30/21 04:09 Impressions Chest X-Ray 12/30/21 03:25 IMPRESSION: Stable portable radiographic appearance of the chest demonstrating cardiogenic pulmonary edema. Foot X-Ray 12/30/21 10:02 IMPRESSION: Findings consistent with acute osteomyelitis of the left first toe as described. Venous Duplex 12/31/21 10:54 IMPRESSION: No acute DVT demonstrated in the left lower extremity. Duplex Scan Lower Extremity Artery 12/31/21 14:36 IMPRESSION: -Monophasic waveforms are again noted throughout the entirety of the left lower extremity consistent with inflow disease. -Left posterior tibial artery is occluded. -Incidentally noted is a small fluid collection within the popliteal fossa which measures approximately 3.1 x 1.8 x 2.0 cm. This fluid collection is deep to a superficial scab. Discharge Plan Discharge Patient Disposition: [facility] Discharge Diagnosis: # DM ulcer with acute osteomyelitis # PAD with left posterior tibial artery occlusion # acute/chronic HFrEF Referrals: [facility] [Outside] - 1 Week Zully Roblero MD [Physician] - 1 Week Stan Vaughn MD [Physician] - 1 Week Ashley Pendleton MD [Primary Care Provider] - 1 Week Bishop Francisco MD [Physician] - 1 Week Discharge Medications: New carvedilol 3.125 mg Tablet 3.125 mg PO BID Qty: 60 0RF Protocol: Hold for SBP/HR < HOLD for SBP < : 90 HOLD for HR < : 60 Rx Instructions: replaces prior dose of 6.25 mg bid Entresto 24-26 mg Tablet 1 tab PO BID Qty: 60 0RF Protocol: Hold for SBP< HOLD for SBP < : 90 Rx Instructions: replaces losartan bumetanide 1 mg Tablet 2 mg PO DAILY Qty: 30 0RF Protocol: Hold for SBP< HOLD for SBP < : 90 daptomycin 500 mg recon soln 500 mg IV Q24H Qty: 30 0RF Rx Instructions: administer over 30 mins. end date 02/11/22 Continued albuterol sulfate 2.5 mg /3 mL (0.083 %) Solution For Nebulization 2.5 mg inhalation Q4H PRN (Reason: Shortness Of Breath Or Wheezing) 0RF (DME) lancets Misc MISCELLANEOUS 0RF (DME) blood-glucose meter [FreeStyle [place] Lite] Kit MISCELLANEOUS 0RF (DME) cane Device MISCELLANEOUS 0RF (DME) FreeStyle Lite Strips 0RF (DME) pen needle, diabetic Needle MISCELLANEOUS 0RF methadone 10 mg/mL Concentrate 50 mg PO QAM 0RF Label Comments: DOSE TO BE CONFIRMED WITH CLINIC albuterol sulfate 90 mcg/actuation Hfa Aerosol Inhaler 2 puff INHALATION Q4H PRN (Reason: Shortness Of Breath) 0RF Lantus U-100 Insulin 100 unit/mL Solution 12 unit SUBCUT QPM 0RF Rx Instructions: sig from pharmacy pick-up record says 10 units SQ, confirm with pt/pharmacy cetirizine 10 mg Tablet 10 mg PO DAILY 0RF aspirin 81 mg Tablet,Delayed Release (Dr/Ec) 81 mg PO DAILY 0RF tamsulosin 0.4 mg Capsule 0.4 mg PO DAILY 0RF montelukast 10 mg Tablet 10 mg PO BEDTIME 0RF gabapentin 100 mg Capsule 200 mg PO TID 0RF fluticasone propionate [Flonase Allergy Relief] 50 mcg/actuation [place],Suspension 1 spray INTRANASAL DAILY 0RF famotidine 20 mg Tablet 20 mg PO BID 0RF zinc 50 mg Tablet 50 mg PO DAILY 0RF lidocaine 5 % Adhesive Patch,Medicated 1 patch TOPICAL DAILY 0RF Rx Instructions: leave on most painful area for up to 12 hrs insulin aspart U-100 [Novolog Flexpen U-100 Insulin] 100 unit/mL (3 mL) Insu ce Pen 5 unit SUBCUT TID 0RF fluticasone propion-salmeterol [Advair Diskus] 500-50 mcg/dose Blister With Device 1 inh INHALATION BID 0RF clopidogrel 75 mg tablet 1 tab PO QAM 0RF Held atorvastatin 20 mg Tablet 20 mg PO BEDTIME 0RF Hold Instructions: Resume on 02/12/22. hold while on daptomycin Discontinued spironolactone 25 mg Tablet 12.5 mg PO DAILY 0RF carvedilol 6.25 mg Tablet 6.25 mg PO BID 0RF furosemide 40 mg Tablet 40 mg PO DAILY Qty: 30 0RF Protocol: Hold for SBP< HOLD for SBP < : 90 losartan 25 mg tablet 1 tab PO QAM 0RF Discharge Orders: Discharge Order (Routine); Ordered 01/12/22 Ordered By: Juan Delcid Diet: advance to usual diet, diabetic diet and low salt diet Activity on Discharge: As tolerated Stand Alone Forms: Patient Portal Discharge page Other Ambulatory Orders: Complete Blood Count Auto Diff (Routine) Timeframe: 1 Week Facility: [facility] - Location: Laboratory Ordered By: Juan Delcid Creatine Kinase Total (Routine) Timeframe: 1 Week Facility: [facility] - Location: Laboratory Ordered By: Juan Delcid Comprehensive Met. Panel (Routine) Timeframe: 1 Week Facility: [facility] - Location: Laboratory Ordered By: Juan Delcid Activity Restrictions/Additional Instructions: Methadone 50 mg last given 01/12/22 at 10:02am Anticipate length of stay at SNF 30 days or less Care Plan Goals: cure of bone infection vascular health cardiac health Health Concerns: # DM ulcer with acute osteomyelitis # PAD with left posterior tibial artery occlusion # acute/chronic HFrEF Plan of Treatment: # DM ulcer with acute osteomyelitis - Daptomycin 500 mg IV daily via PICC line for next 29 days; check weekly while on daptomycin- CBC with differential, CMP, CPK. Hold atorvastatin while on daptomycin; resume afterwards. - Follow up with Infectious Disease in 1-2 weeks # PAD with left posterior tibial artery occlusion - Continue aspirin and clopidogrel. - Follow up with Vascular Surgery in 1-2 weeks # acute/chronic HFrEF - Stop spironolactone and losartan. Start Entresto 24/26 mg twice daily. Decrease carvedilol dose from 6.25 mg twice daily to 3.125 mg twice daily. - Stop furosemide. Start bumetanide 2 mg daily. - Follow up with Cardiology in 1-2 weeks. - Low-sodium diet. Weigh yourself daily. Call doctor if weight goes up by 5 lb or more. Assessment: see Discharge Summary
--- NOTE | 2022-01-12 15:40 | P.PICC_ITS ---
PICC Line Insertion NPICC Diagnosis: OSTEOMYELITIS Indication: HALFWAY IV ANTIBIOTICS Pertinent Labs: REVIEWED Technique: Following informed consent including risks, benefits and alternatives and using sterile technique including cap and mask, sterile gown, glove and drape, the RIGHT arm was prepped and draped in the usual sterile fashion of full barrier technique with CHG. Following completion of [place] Protocol the skin and soft tissues were anesthetized with 1% Lidocaine plain. Using ultrasound guidance, BASILIC vein access was obtained IN SINGLE ATTEMPT BY THIS RN. Over an 0.018 wire through peel-away sheath, a SINGLE LUMEN, 4-TAIWANESE, PASV PICC line was positioned. Catheter length is 40 CM internal length, 0 CM external length, for a total trimmed length of 40 CM. The procedure was performed in S-272. Tip verification was performed by Prabha Boyer with Prince 3CG. Tip located in SVC. Ultrasound was used to document vein patency and for needle entry. A formal ultrasound picture and cardiac rhythm strip was recorded. Vascular Strategic Development Manager has released the line for use and it is currently dressed with a StatLock, Tegaderm, and CHG disc. Verification has been performed for blood return and line patency. Arm Circumference: 29 CM Equipment: [employer] POWERPICC SOLO Catheter Type: 4-TAIWANESE, SINGLE LUMEN, PASV Lot #: [id number]
--- NOTE | 2022-01-12 15:48 | MHC.CM.PN ---
Patient has been medically cleared for dc to SNF. Patient cannot return home with a PICC and IV ABT r/t his drug history. Patient will dc to [facility] SNF (who also can accommodate his Methadone)today at 6:00PM, via [facility].
[2022-01-12 15:49] VITALS: BP 143/59; PULSE 69; RESP 20; TEMP 36.4; O2SAT 97
[2022-01-12 16:10] LABS: Glucose, Whole Blood 97 mg/dL (60-115)
[2022-01-12 17:07] LABS: COVID-19 Test Negative (Negative)
== END 2022-01-12 18:20 | disposition skilled nursing facility (03) | DRG 182 ==
LOC: HO.ED 04:33 → HO.EDOVER 06:14 → HO.IMC 18:28
PROVIDERS: Hospitalist; Surgery Vascular Surgery; Admitting Provider Hospitalist; Emergency Provider Student in an Organized Health Care Education/Training Program; PCP Family Medicine; Visit Provider Family Medicine
PROC: 047U3ZZ Dilation of Left Peroneal Artery, Percutaneous Approach (ICD-10-PCS; principal; 2022-01-10 14:30)
DX: E11.51 Type 2 diabetes mellitus with diabetic peripheral angiopathy without gangrene (principal); I50.43 Acute on chronic combined systolic (congestive) and diastolic (congestive) heart failure; E11.649 Type 2 diabetes mellitus with hypoglycemia without coma; M86.172 Other acute osteomyelitis, left ankle and foot; E11.40 Type 2 diabetes mellitus with diabetic neuropathy, unspecified; L03.116 Cellulitis of left lower limb; B86 Scabies; I11.0 Hypertensive heart disease with heart failure; L97.529 Non-pressure chronic ulcer of other part of left foot with unspecified severity; F11.20 Opioid dependence, uncomplicated; N40.0 Benign prostatic hyperplasia without lower urinary tract symptoms; E78.5 Hyperlipidemia, unspecified; I25.5 Ischemic cardiomyopathy; E83.42 Hypomagnesemia; J44.9 Chronic obstructive pulmonary disease, unspecified; I70.245 Atherosclerosis of native arteries of left leg with ulceration of other part of foot; E11.69 Type 2 diabetes mellitus with other specified complication; Z20.822 Contact with and (suspected) exposure to COVID-19; Z89.511 Acquired absence of right leg below knee; Z79.02 Long term (current) use of antithrombotics/antiplatelets; Z88.2 Allergy status to sulfonamides; Z79.4 Long term (current) use of insulin; Z79.899 Other long term (current) drug therapy
CPT/HCPCS: 36415; 36573; 37228; 71045; 73620; 76937; 80048; 80053; 80076; 82550; 82803; 82947; 83036; 83735; 83880; 84484; 85025; 85027; 85610; 85652; 86140; 87040; 87635; 93005; 93926; 93971; 94640; 94644; 96374; 99152; 99153; 99284; 99285; C1725; C1751; C1758; C1760; C1769; C1887; J0878; J1170; J1650; J1940; J2543; J3475; Q9967

== ENCOUNTER → 2022-01-19 10:20 | Outpatient (BNVA) | payer MEDICAID, SELFPAY | PROVIDERS: Visit Provider Internal Medicine | DX: E11.621 Type 2 diabetes mellitus with foot ulcer (principal); E11.69 Type 2 diabetes mellitus with other specified complication; L97.509 Non-pressure chronic ulcer of other part of unspecified foot with unspecified severity; M86.9 Osteomyelitis, unspecified | CPT/HCPCS: 99212 ==

== ENCOUNTER → 2022-01-20 13:00 | Outpatient (BNVA) | payer MEDICAID, SELFPAY | PROVIDERS: Visit Provider Surgery Vascular Surgery ==

== ENCOUNTER 2022-01-21 08:58 | Outpatient (RCR) | payer MEDICAID, SELFPAY | END 2022-03-08 15:00 | disposition home or self-care (01) | LOC: HO.WCC 08:58 | PROVIDERS: Visit Provider Surgery | DX: E11.621 Type 2 diabetes mellitus with foot ulcer (principal); E11.51 Type 2 diabetes mellitus with diabetic peripheral angiopathy without gangrene; L97.522 Non-pressure chronic ulcer of other part of left foot with fat layer exposed; T24.211A Burn of second degree of right thigh, initial encounter; E11.69 Type 2 diabetes mellitus with other specified complication; M86.272 Subacute osteomyelitis, left ankle and foot; J44.9 Chronic obstructive pulmonary disease, unspecified; I11.0 Hypertensive heart disease with heart failure; I50.9 Heart failure, unspecified; I25.2 Old myocardial infarction; T31.0 Burns involving less than 10% of body surface; Z86.19 Personal history of other infectious and parasitic diseases; Z89.511 Acquired absence of right leg below knee; Z95.828 Presence of other vascular implants and grafts | CPT/HCPCS: 11042; 11044; 16020; 87071; 87073; 87205; 88304; 88305; 88311; 97597; 99213 ==

== ENCOUNTER → 2022-02-15 15:08 | Outpatient (BNVA) | payer MEDICAID, SELFPAY | PROVIDERS: PCP Family Medicine; Visit Provider Surgery Vascular Surgery | DX: I73.9 Peripheral vascular disease, unspecified (principal) | CPT/HCPCS: 99212 ==

== ENCOUNTER 2022-02-21 16:42 | Inpatient (IN) | payer MEDICAID, SELFPAY ==
--- NOTE | 2022-02-21 | ECG_ITS ---
Test Reason : TACHYCARDIA Blood Pressure : / mmHG Vent. Rate : 084 BPM Atrial Rate : 084 BPM P-R Int : 196 ms QRS Dur : 116 ms QT Int : 400 ms P-R-T Axes : 036 -34 123 degrees QTc Int : 472 ms Normal sinus rhythm Left axis deviation Left ventricular hypertrophy with QRS widening and repolarization abnormality ( R in aVL , Michael product ) Abnormal ECG When compared with ECG of 30-DEC-2021 02:26, Premature ventricular complexes are no longer Present Referred By: Generic ED Physician Electronically Signed By:Gustavo Mccollum
--- NOTE | ~2022-02-21 | XR_ITS ---
EXAMINATION: PORTABLE CHEST 1 VIEW CLINICAL INFORMATION: PAIN WITH BREATHING . COMPARISON: 12/30/2021. TECHNIQUE: Portable frontal view of the chest was obtained. FINDINGS: Mild central vascular prominence with indistinctness to the vessels slightly more prominent on today's study due to the degree of expansion. No effusion or pneumothorax. Cardiac silhouette again prominent. No acute bony abnormality. XR/XR chest 1V IMPRESSION: Central vascular prominence suggesting component of mild interstitial edema when compared to prior study.
[2022-02-21 16:47] VITALS: BP 122/77; O2SAT 100
[2022-02-21 18:29] VITALS: BP 142/96; PULSE 104; RESP 20; TEMP 36.7; O2SAT 99
[2022-02-21 18:58] LABS: MANUAL DIFF FLAG NO
[2022-02-21 19:00] LABS: Basophils Percent Auto 0.3 % (0-2); Eosinophils Absolute Auto 0.2 X10*3/uL (0.0-0.4); Eosinophils Percent Auto 1.7 % (0-4); Imm Gran Abs Auto 0.03 X10*3/uL (0.00-0.03); Imm Gran Pct Auto 0.3 % (0.0-0.4); Lymphocytes Absolute Auto 0.9 X10*3/uL (1.2-4.9); Lymphocytes Percent Auto 8.2 % (20-40); Mean Corpuscular HGB Conc 31.1 g/dl (31.0-36.0); Mean Corpuscular Hemoglobin 26.1 pg (27.0-33.0); Mean Platelet Volume 9.4 fL (9.4-12.4); Monocytes Absolute Auto 1.1 X10*3/uL (0.1-1.2); Monocytes Percent Auto 10.1 % (2-11); Neutrophils Absolute Auto 8.4 x10*3/uL (2.0-8.3); Neutrophils Percent Auto 79.4 % (45-73); Platelet Count 300 X10*3/uL (160-400); Red Blood Count 5.36 X10*6/uL (4.60-5.80); Red Cell Distribution Width 16.1 % (11.0-16.0); White Blood Count 10.6 X10*3/uL (4.8-10.8)
[2022-02-21 19:29] LABS: Alanine Aminotransferase 16 U/L (0-40); Alkaline Phosphatase 88 U/L (39-117); Anion Gap 15 (12-20); Aspartate Amino Transferase 34 U/L (5-37); Bilirubin Total 0.6 mg/dL (0.0-1.0); Blood Urea Nitrogen 31 mg/dL (9-16); Calcium 10.2 mg/dL (8.4-10.2); Carbon Dioxide 23 mmol/L (22-29); Chloride 103 mmol/L (96-108); Estimated Glomerular Filt Rate > 60; Glucose Random 146 mg/dL (60-115); Potassium 4.9 mmol/L (3.3-5.1); Sodium 136 mmol/L (135-145); Total Protein 8.4 g/dL (6.5-8.0)
[2022-02-21 19:40] LABS: Troponin-I High Sensitivity 110.8 ng/L (<3.5-35.0)
--- NOTE | 2022-02-21 20:02 | ED.GENADULT ---
HPI - General Adult General Chief complaint: General Medical Stated complaint: DIFF BREATHING 100%RA,RAN OUT OF ALBUTEROL PER EMS Source: patient and EMS Mode of arrival: EMS Limitations: language barrier History of Present Illness HPI narrative: 51-year-old male presents via EMS for an episode of chest pain with shortness of breath accompanied with palpitations. He stated that he felt some shortness of breath a.m. took his albuterol inhaler, then felt palpitations. He does not have any chest pain on presentation to the emergency department. Onset (ago): minute(s) Location: chest Radiation: non-radiation Severity: moderate Severity scale (1-10): 5 Pain Consistency: now resolved Relieving factors: none Associated symptoms: shortness of breath Treatments prior to arrival: none Related Data Home Medications Medication Instructions Recorded Confirmed FreeStyle Lite Strips 08/12/20 02/13/21 albuterol sulfate 2.5 mg INHALATION Q4H PRN 08/12/20 12/30/21 albuterol sulfate 90 mcg/actuation 2 puff INHALATION Q4H PRN 08/12/20 12/30/21 aerosol inhaler blood-glucose meter (FreeStyle 08/12/20 02/13/21 Alma Lite) cane 08/12/20 02/13/21 lancets 08/12/20 02/13/21 methadone 10 mg/mL oral concentrate 50 mg PO QAM 08/12/20 12/30/21 pen needle, diabetic 08/12/20 02/13/21 aspirin 81 mg tablet,delayed 81 mg PO DAILY 08/14/20 12/30/21 release atorvastatin 20 mg tablet 20 mg PO BEDTIME 08/14/20 12/30/21 cetirizine 10 mg tablet 10 mg PO DAILY 08/14/20 12/30/21 fluticasone propionate 50 1 spray INTRANASAL DAILY 08/14/20 12/30/21 mcg/actuation nasal spray,suspension (Flonase Allergy Relief) gabapentin 100 mg capsule 200 mg PO TID 08/14/20 12/30/21 insulin glargine 100 unit/mL 12 unit SUBCUT QPM 08/14/20 12/30/21 subcutaneous solution (Lantus U-100 Insulin) montelukast 10 mg tablet 10 mg PO BEDTIME 08/14/20 12/30/21 tamsulosin 0.4 mg capsule 0.4 mg PO DAILY 08/14/20 12/30/21 clopidogrel 75 mg tablet 1 tab PO QAM 10/08/21 12/30/21 famotidine 20 mg tablet 20 mg PO BID 12/30/21 12/30/21 fluticasone 500 mcg-salmeterol 50 1 inh INHALATION BID 12/30/21 12/30/21 mcg/dose blistr powdr for inhalation (Advair Diskus) insulin aspart U-100 100 unit/mL 5 unit SUBCUT TID 12/30/21 12/30/21 (3 mL) subcutaneous pen (Novolog Flexpen U-100 Insulin aspart) lidocaine 5 % topical patch 1 patch TOPICAL DAILY 12/30/21 12/30/21 zinc 50 mg tablet 50 mg PO DAILY 12/30/21 12/30/21 Previous Rx's Medication Instructions Recorded bumetanide 1 mg tablet 2 mg PO DAILY #30 tab 01/12/22 carvedilol 3.125 mg tablet 3.125 mg PO BID #60 tab 01/12/22 daptomycin 500 mg intravenous 500 mg IV Q24H #30 ea 01/12/22 solution sacubitril 24 mg-valsartan 26 mg 1 tab PO BID #60 tab 01/12/22 tablet (Entresto) Allergies Allergy/AdvReac Type Severity Reaction Status Date / Time ertapenem Allergy Intermediate Hives Verified 02/21/22 18:40 vancomycin [VANCOMYCIN] Allergy Intermediate HIVES Verified 02/21/22 18:40 Chocolate Allergy Unknown Rash Verified 02/21/22 18:40 ciprofloxacin [From CIPRO] Allergy Unknown SWELLING Verified 02/21/22 18:40 hydrocortisone [Cipro HC] Allergy Unknown Unknown Verified 02/21/22 18:40 sulfamethoxazole Allergy Unknown rash Verified 02/21/22 18:40 [From BACTRIM] trimethoprim [From BACTRIM] Allergy Unknown rash Verified 02/21/22 18:40 turkey [TURKEY] Allergy Unknown RASH Verified 02/21/22 18:40 Review of Systems Review of Systems: Constitutional: No Weight loss, No Fever, No Chills, No Night Sweats, No Fatigue, No Malaise ENT/Mouth: No Hearing loss, No Ear Pain, No Nasal Congestion, No Sinus Pain, No Hoarseness, No sore throat, No Rhinorrhea, No Swallowing Difficulty Eyes: No Eye Pain, No Swelling, No Redness, No Foreign Body, No Discharge, No Vision Changes Cardiovascular: Positive Chest Pain, positive SOB, no Dyspnea on Exertion, No Orthopnea, No Edema, positive Palpitations Respiratory: No Cough, No Sputum, No Wheezing, No Smoke Exposure, No Dyspnea Gastrointestinal: No Nausea, No Vomiting, No Diarrhea, No abdominal Pain, No Hematochezia, No Melena Genitourinary: No irregular bleeding, No Dysuria, No Urinary Frequency, No Hematuria, No Urinary Incontinence, No Urgency, No Flank Pain, No Urinary Flow Changes, No Hesitancy Musculoskeletal: No joint pain, No Myalgias, No Joint Swelling Skin: Multiple lesions and chronic wounds. Neuro: No Weakness, No Numbness, No Paresthesias, No Loss of Consciousness, No Dizziness, No Headache Psych: No Anxiety/Panic, No Depression, No SI/HI/AH/VH Heme/Lymph: No Bruising, No Bleeding,No Lymphadenopathy Endocrine: No Polyuria, No Polydipsia, No Temperature Intolerance Yes all other systems are reviewed and are negative [facility] Past Medical History Attestation statement: The following information was validated with the patient. Source: old records reviewed Medical History (Updated 02/21/22 @ 23:19 by Kylee Sun NP) Abscess or cellulitis of foot Acute on chronic anemia Acute on chronic combined systolic and diastolic congestive heart failure Acute on chronic HFrEF (heart failure with reduced ejection fraction) Acute respiratory failure with hypoxia Asthma Bipolar 1 disorder BPH (benign prostatic hyperplasia) CHF exacerbation Cholelithiasis Closed wedge compression fracture of T9 vertebra COPD (chronic obstructive pulmonary disease) Diabetes mellitus Diabetes mellitus, type 2 Elevated troponin GERD (gastroesophageal reflux disease) Hyperlipidemia Ischemic cardiomyopathy Lymphadenopathy Opiate abuse, continuous Osteomyelitis Peripheral arterial disease Peripheral neuropathy Peripheral vascular disease Substance abuse Tracheomalacia, acquired Surgical History History of amputation History of laminectomy History of transurethral resection of prostate Hx of BKA Family History Family History Father Chronic mental illness Hypertension Asthma Stroke Mother Asthma Diabetes Coronary artery disease Social History Social History Household Members: None Housing: Apartment Housing Other:: IN A LITTLE ROOM Do you presently have visiting nurse or other home services: Yes Alcohol intake: never Patient Tobacco Use Status: Never used Tobacco e-Cigarette/Vaping Use: Never Used Second Hand Smoke Exposure: No Substance Use Type: Marijuana Advance Directives: Yes Advance Directives on File: Yes Advance Directives Date on File: 11/24/20 service: No Current occupational status: disabled Physical Exam ED Vital Signs: Vital Signs - 24 hr 02/21/22 18:29 Temperature 98.1 F Pulse Rate 104 H Respiratory Rate 20 Blood Pressure 142/96 H Pulse Oximetry 99 BMI result Body Mass Index 0.0 Appearance: Alert. Oriented X3. No acute distress. Eyes: Pupils equal, round and reactive to light. Sclera nonicteric. ENT: Pharynx normal. Moist mucous membranes. Neck: Normal inspection. Neck supple. CVS: Tachycardic heart rate and rhythm. Apical pulses equal 2 pulses to extremities. Respiratory: No respiratory distress. Breath sounds normal. Abdomen: Soft and nontender. Skin: Multiple chronic wounds to lower extremities. Extremities: No lower extremity edema. Right BKA. Chronic wounds noted. Neuro: No motor deficit. No sensory deficit. Cranial nerves 2-12 intact. Course Course Course Narrative: 51-year-old male presents with chest pain, shortness of breath, and palpitations. Patient's troponin noted to be elevated while in the emergency department waiting room. Second troponin is pending at this time. CPK added. 22:24 discussion with vessel liner regarding elevated troponins. 22:41 discussion with hospitalist. Plan of care is to admit for CHF exacerbation, elevated troponins. Consultations Consultation #1: Chun Time: 22:30 Consultation #2: jimena Time: 22:44 Medical Decision Making Differential Diagnosis Differential Diagnosis: CHF exacerbation, ACS, pneumonia, AFib Medical Records Medical records reviewed: Yes I reviewed the patient's medical records. Lab Data Lab results reviewed: Yes I reviewed the patient's lab results. Result diagrams: 02/21/22 18:53 02/21/22 18:53 Labs: Lab Results 02/21/22 02/21/22 02/21/22 Range/Units 18:53 18:53 18:53 WBC 10.6 (4.8-10.8) X10*3/uL RBC 5.36 D (4.60-5.80) X10*6/uL Hgb 14.0 D (14.0-18.0) g/dl Hct 45.0 D (42.0-52.0) % MCV 84.0 (80.0-98.0) fL MCH 26.1 L (27.0-33.0) pg MCHC 31.1 (31.0-36.0) g/dl RDW 16.1 H (11.0-16.0) % Plt Count 300 (160-400) X10*3/uL MPV 9.4 (9.4-12.4) fL Immature Gran % (Auto) 0.3 (0.0-0.4) % Neut % (Auto) 79.4 H (45-73) % Lymph % (Auto) 8.2 L (20-40) % [place] % (Auto) 10.1 (2-11) % Eos % (Auto) 1.7 (0-4) % Baso % (Auto) 0.3 (0-2) % Lymph # (Auto) 0.9 L (1.2-4.9) X10*3/uL [place] # (Auto) 1.1 (0.1-1.2) X10*3/uL Eos # (Auto) 0.2 (0.0-0.4) X10*3/uL Baso # (Auto) 0.0 (0.0-0.2) X10*3/uL Abs Immat Gran (auto) 0.03 (0.00-0.03) X10*3/uL Absolute Neuts (auto) 8.4 H (2.0-8.3) x10*3/uL Absolute Nucleated RBC 0.000 (0.0-0.012) X10*3/uL Nucleated RBC % (auto) 0.0 (0.0-0.2) /100WBC Sodium 136 (135-145) mmol/L Potassium 4.9 (3.3-5.1) mmol/L Chloride 103 (96-108) mmol/L Carbon Dioxide 23 (22-29) mmol/L Anion Gap 15 (12-20) BUN 31 H (9-16) mg/dL Creatinine 1.03 (0.5-1.4) mg/dL Estim Creat Clear Calc TNP Estimated GFR > 60 Random Glucose 146 H D (60-115) mg/dL Calcium 10.2 D (8.4-10.2) mg/dL Total Bilirubin 0.6 (0.0-1.0) mg/dL AST 34 (5-37) U/L ALT 16 (0-40) U/L Alkaline Phosphatase 88 (39-117) U/L Total Creatine Kinase (38-174) U/L Troponin I High Sens 110.8 H* D (<3.5-35.0) ng/L Total Protein 8.4 H D (6.5-8.0) g/dL Albumin 4.0 D (3.5-5.0) g/dL 02/21/22 02/21/22 Range/Units 21:33 21:33 WBC (4.8-10.8) X10*3/uL RBC (4.60-5.80) X10*6/uL Hgb (14.0-18.0) g/dl Hct (42.0-52.0) % MCV (80.0-98.0) fL MCH (27.0-33.0) pg MCHC (31.0-36.0) g/dl RDW (11.0-16.0) % Plt Count (160-400) X10*3/uL MPV (9.4-12.4) fL Immature Gran % (Auto) (0.0-0.4) % Neut % (Auto) (45-73) % Lymph % (Auto) (20-40) % [place] % (Auto) (2-11) % Eos % (Auto) (0-4) % Baso % (Auto) (0-2) % Lymph # (Auto) (1.2-4.9) X10*3/uL [place] # (Auto) (0.1-1.2) X10*3/uL Eos # (Auto) (0.0-0.4) X10*3/uL Baso # (Auto) (0.0-0.2) X10*3/uL Abs Immat Gran (auto) (0.00-0.03) X10*3/uL Absolute Neuts (auto) (2.0-8.3) x10*3/uL Absolute Nucleated RBC (0.0-0.012) X10*3/uL Nucleated RBC % (auto) (0.0-0.2) /100WBC Sodium (135-145) mmol/L Potassium (3.3-5.1) mmol/L Chloride (96-108) mmol/L Carbon Dioxide (22-29) mmol/L Anion Gap (12-20) BUN (9-16) mg/dL Creatinine (0.5-1.4) mg/dL Estim Creat Clear Calc Estimated GFR Random Glucose (60-115) mg/dL Calcium (8.4-10.2) mg/dL Total Bilirubin (0.0-1.0) mg/dL AST (5-37) U/L ALT (0-40) U/L Alkaline Phosphatase (39-117) U/L Total Creatine Kinase 577 H D (38-174) U/L Troponin I High Sens 115.4 H* (<3.5-35.0) ng/L Total Protein (6.5-8.0) g/dL Albumin (3.5-5.0) g/dL Imaging Data Chest x-ray: Attestation: I personally reviewed and interpreted this imaging study as follows: Radiologist's impression: EXAMINATION: PORTABLE CHEST 1 VIEW CLINICAL INFORMATION: PAIN WITH BREATHING . COMPARISON: 12/30/2021. TECHNIQUE: Portable frontal view of the chest was obtained. FINDINGS: Mild central vascular prominence with indistinctness to the vessels slightly more prominent on today's study due to the degree of expansion. No effusion or pneumothorax. Cardiac silhouette again prominent. No acute bony abnormality. XR/XR chest 1V IMPRESSION: Central vascular prominence suggesting component of mild interstitial edema when compared to prior study. ECG Data Attestation: I personally reviewed and interpreted this ECG as follows: Prior ECG tracings: available for review Interpretation: Vent. rate 84 BPM IA interval 196 ms QRS duration 116 ms QT/QTc 400/472 ms P-R-T axes 36 -34 123 Normal sinus rhythm Left axis deviation Left ventricular hypertrophy with QRS widening and repolarization abnormality ( R in aVL , [place] product ) Abnormal ECG When compared with ECG of 30-DEC-2021 02:26, Premature ventricular complexes are no longer Present 21-FEB-2022 18:35:02 Discharge Plan Discharge Prescriptions: No Action albuterol sulfate 2.5 mg /3 mL (0.083 %) Solution For Nebulization 2.5 mg inhalation Q4H PRN (Reason: Shortness Of Breath Or Wheezing) 0RF (DME) lancets Misc MISCELLANEOUS 0RF (DME) blood-glucose meter [FreeStyle Alma Lite] Kit MISCELLANEOUS 0RF (DME) cane Device MISCELLANEOUS 0RF (DME) FreeStyle Lite Strips 0RF (DME) pen needle, diabetic Needle MISCELLANEOUS 0RF methadone 10 mg/mL Concentrate 50 mg PO QAM 0RF Label Comments: DOSE TO BE CONFIRMED WITH CLINIC albuterol sulfate 90 mcg/actuation Hfa Aerosol Inhaler 2 puff INHALATION Q4H PRN (Reason: Shortness Of Breath) 0RF Lantus U-100 Insulin 100 unit/mL Solution 12 unit SUBCUT QPM 0RF Rx Instructions: sig from pharmacy pick-up record says 10 units SQ, confirm with pt/pharmacy cetirizine 10 mg Tablet 10 mg PO DAILY 0RF aspirin 81 mg Tablet,Delayed Release (Dr/Ec) 81 mg PO DAILY 0RF atorvastatin 20 mg Tablet 20 mg PO BEDTIME 0RF Hold Instructions: Resume on 02/12/22. hold while on daptomycin tamsulosin 0.4 mg Capsule 0.4 mg PO DAILY 0RF montelukast 10 mg Tablet 10 mg PO BEDTIME 0RF gabapentin 100 mg Capsule 200 mg PO TID 0RF fluticasone propionate [Flonase Allergy Relief] 50 mcg/actuation [place],Suspension 1 spray INTRANASAL DAILY 0RF famotidine 20 mg Tablet 20 mg PO BID 0RF zinc 50 mg Tablet 50 mg PO DAILY 0RF lidocaine 5 % Adhesive Patch,Medicated 1 patch TOPICAL DAILY 0RF Rx Instructions: leave on most painful area for up to 12 hrs insulin aspart U-100 [Novolog Flexpen U-100 Insulin] 100 unit/mL (3 mL) Insulin Pen 5 unit SUBCUT TID 0RF fluticasone propion-salmeterol [Advair Diskus] 500-50 mcg/dose Blister With Device 1 inh INHALATION BID 0RF carvedilol 3.125 mg Tablet 3.125 mg PO BID Qty: 60 0RF Protocol: Hold for SBP/HR < HOLD for SBP < : 90 HOLD for HR < : 60 Rx Instructions: replaces prior dose of 6.25 mg bid Entresto 24-26 mg Tablet 1 tab PO BID Qty: 60 0RF Protocol: Hold for SBP< HOLD for SBP < : 90 Rx Instructions: replaces losartan bumetanide 1 mg Tablet 2 mg PO DAILY Qty: 30 0RF Protocol: Hold for SBP< HOLD for SBP < : 90 daptomycin 500 mg recon soln 500 mg IV Q24H Qty: 30 0RF Rx Instructions: administer over 30 mins. end date 02/11/22 clopidogrel 75 mg tablet 1 tab PO QAM 0RF
[2022-02-21 22:07] LABS: Troponin-I High Sensitivity 115.4 ng/L (<3.5-35.0)
--- NOTE | 2022-02-21 22:44 | PM.IMHP ---
History of Present Illness Date of Service: 02/21/22 Chief Complaint: Shortness of breath 51-year-old male with a past medical history of hypertension, hyperlipidemia, diabetes,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 Vaughn, history of right BKA, history of diabetic foot infection/osteomyelitis/bacteremia, COPD, opiate dependence on methadone, anemia presented to the hospital today with a chief complaint of chest pain. Patient reported that he developed chest pain, pressure-like in nature, nonradiating, no associated lightheadedness dizziness or diaphoresis. Currently resolved at the time of my entry. Also reported he has shortness of breath which worsens on exertion. Denies any orthopnea or PND. Denies any peripheral edema. Mentions he has been complaint with his home medications. Denies any fever chills cough or sputum production. Denies any GI symptoms. Review of all other systems is negative except mentioned above ER course: Per ER team patient chest pain improved; EKG was nonischemic; on labs noted to have elevated troponin to 110 followed by had an 15; chest x-ray showed mild congestion; cardiology Dr. Mccollum was notified-recommended no heparin drip; continue home Plavix; also suggested IV Lasix. Admitted to the hospital for further management. [facility] Medical History (Updated 02/21/22 @ 22:44 by Ronald Mccullough MD) Abscess or cellulitis of foot Acute on chronic anemia Acute on chronic combined systolic and diastolic congestive heart failure Acute on chronic HFrEF (heart failure with reduced ejection fraction) Acute respiratory failure with hypoxia Asthma Bipolar 1 disorder BPH (benign prostatic hyperplasia) CHF exacerbation Cholelithiasis Closed wedge compression fracture of T9 vertebra COPD (chronic obstructive pulmonary disease) Diabetes mellitus Diabetes mellitus, type 2 Elevated troponin GERD (gastroesophageal reflux disease) Hyperlipidemia Ischemic cardiomyopathy Lymphadenopathy Opiate abuse, continuous Osteomyelitis Peripheral arterial disease Peripheral neuropathy Peripheral vascular disease Substance abuse Tracheomalacia, acquired Family History Father Chronic mental illness Hypertension Asthma Stroke Mother Asthma Diabetes Coronary artery disease Surgical History History of amputation History of laminectomy History of transurethral resection of prostate Hx of BKA Social History Household Members: None Housing: Apartment Housing Other:: IN A LITTLE ROOM Do you presently have visiting nurse or other home services: Yes Alcohol intake: never Patient Tobacco Use Status: Never used Tobacco e-Cigarette/Vaping Use: Never Used Second Hand Smoke Exposure: No Substance Use Type: Marijuana Advance Directives: Yes Advance Directives on File: Yes Advance Directives Date on File: 11/24/20 service: No Current occupational status: disabled Meds Allergies Allergy/AdvReac Type Severity Reaction Status Date / Time ertapenem Allergy Intermediate Hives Verified 02/21/22 18:40 vancomycin [VANCOMYCIN] Allergy Intermediate HIVES Verified 02/21/22 18:40 Chocolate Allergy Unknown Rash Verified 02/21/22 18:40 ciprofloxacin [From CIPRO] Allergy Unknown SWELLING Verified 02/21/22 18:40 hydrocortisone [Cipro HC] Allergy Unknown Unknown Verified 02/21/22 18:40 sulfamethoxazole Allergy Unknown rash Verified 02/21/22 18:40 [From BACTRIM] trimethoprim [From BACTRIM] Allergy Unknown rash Verified 02/21/22 18:40 turkey [TURKEY] Allergy Unknown RASH Verified 02/21/22 18:40 Active Medications: Current Medications Dextrose (Dextrose 50 % 25 Gm/50 Ml Syringe) 25 gm IVPUSH Q15M PRN; Protocol PRN Reason: per Hypoglycemia Standing Ord. Glucose (Glucose Gel 15 Gm Gel..Gram.) 15 gm PO Q15M PRN; Protocol PRN Reason: per Hypoglycemia Standing Ord. Insulin Human Lispro (Insulin Lispro 100 Unit/Ml 3 Ml Vial) 0 unit SUBCUT [facility]; Protocol Pharmacy Consult (Consult Rx Perform Med Rec) 1 each MISCELLANE ONCE STA Stop: 02/21/22 22:43 Home Medications Medication Instructions Recorded Confirmed Last Taken Type FreeStyle Lite Strips 08/12/20 02/13/21 Unknown History albuterol sulfate 2.5 mg INHALATION Q4H PRN 08/12/20 12/30/21 Unknown History albuterol sulfate 90 mcg/actuation 2 puff INHALATION Q4H PRN 08/12/20 12/30/21 Unknown History aerosol inhaler blood-glucose meter (FreeStyle 08/12/20 02/13/21 Unknown History [employer]) cane 08/12/20 02/13/21 Unknown History lancets 08/12/20 02/13/21 Unknown History methadone 10 mg/mL oral concentrate 50 mg PO QAM 08/12/20 12/30/21 01/02/21 History pen needle, diabetic 08/12/20 02/13/21 Unknown History aspirin 81 mg tablet,delayed 81 mg PO DAILY 08/14/20 12/30/21 Unknown History release atorvastatin 20 mg tablet 20 mg PO BEDTIME 08/14/20 12/30/21 Unknown History cetirizine 10 mg tablet 10 mg PO DAILY 08/14/20 12/30/21 Unknown History fluticasone propionate 50 1 spray INTRANASAL DAILY 08/14/20 12/30/21 Unknown History mcg/actuation nasal spray,suspension (Flonase Allergy Relief) gabapentin 100 mg capsule 200 mg PO TID 08/14/20 12/30/21 Unknown History insulin glargine 100 unit/mL 12 unit SUBCUT QPM 08/14/20 12/30/21 Unknown History subcutaneous solution (Lantus U-100 Insulin) montelukast 10 mg tablet 10 mg PO BEDTIME 08/14/20 12/30/21 Unknown History tamsulosin 0.4 mg capsule 0.4 mg PO DAILY 08/14/20 12/30/21 Unknown History clopidogrel 75 mg tablet 1 tab PO QAM 10/08/21 12/30/21 Unknown History famotidine 20 mg tablet 20 mg PO BID 12/30/21 12/30/21 Unknown History fluticasone 500 mcg-salmeterol 50 1 inh INHALATION BID 12/30/21 12/30/21 Unknown History mcg/dose blistr powdr for inhalation (Advair Diskus) insulin aspart U-100 100 unit/mL 5 unit SUBCUT TID 12/30/21 12/30/21 Unknown History (3 mL) subcutaneous pen (Novolog Flexpen U-100 Insulin aspart) lidocaine 5 % topical patch 1 patch TOPICAL DAILY 12/30/21 12/30/21 Unknown History zinc 50 mg tablet 50 mg PO DAILY 12/30/21 12/30/21 Unknown History Physical Exam Vital Signs and Narrative: Vital Signs: Last Vital Signs Temp 98.1 F 02/21/22 18:29 Pulse 104 H 02/21/22 18:29 Resp 20 02/21/22 18:29 BP 142/96 H 02/21/22 18:29 Pulse Ox 99 02/21/22 18:29 BMI result Body Mass Index 0.0 Gen: Appears be in no acute distress HEENT: NCAT, Moist mucosa. Pulmonary: Vesicular breath sounds, fair air entry; crackles present bilaterally CVS: Normal S1-S2 Abdomen: BS+, Soft, Nontender Extremities: Warm well perfused; patient has chronic toe wound as shown in the picture below Neuro: Alert and awake. Results Labs CBC and Chem 7: 02/21/22 18:53 02/21/22 18:53 Labs: Laboratory Results - last 24 hr 02/21/22 02/21/22 02/21/22 18:53 18:53 18:53 MCV 84.0 MCH 26.1 L MCHC 31.1 RDW 16.1 H Plt Count 300 MPV 9.4 Immature Gran % (Auto) 0.3 Neut % (Auto) 79.4 H Lymph % (Auto) 8.2 L [place] % (Auto) 10.1 Eos % (Auto) 1.7 Baso % (Auto) 0.3 Lymph # (Auto) 0.9 L [place] # (Auto) 1.1 Eos # (Auto) 0.2 Baso # (Auto) 0.0 Abs Immat Gran (auto) 0.03 Absolute Neuts (auto) 8.4 H Absolute Nucleated RBC 0.000 Nucleated RBC % (auto) 0.0 Anion Gap 15 Estim Creat Clear Calc TNP Estimated GFR > 60 Random Glucose 146 H D Calcium 10.2 D Total Bilirubin 0.6 AST 34 ALT 16 Alkaline Phosphatase 88 Total Creatine Kinase Troponin I High Sens 110.8 H* D Total Protein 8.4 H D Albumin 4.0 D 02/21/22 02/21/22 21:33 21:33 MCV MCH MCHC RDW Plt Count MPV Immature Gran % (Auto) Neut % (Auto) Lymph % (Auto) [place] % (Auto) Eos % (Auto) Baso % (Auto) Lymph # (Auto) [place] # (Auto) Eos # (Auto) Baso # (Auto) Abs Immat Gran (auto) Absolute Neuts (auto) Absolute Nucleated RBC Nucleated RBC % (auto) Anion Gap Estim Creat Clear Calc Estimated GFR Random Glucose Calcium Total Bilirubin AST ALT Alkaline Phosphatase Total Creatine Kinase 577 H D Troponin I High Sens 115.4 H* Total Protein Albumin Imaging Radiologist's Impressions: Impressions Chest X-Ray 02/21/22 19:23 IMPRESSION: Central vascular prominence suggesting component of mild interstitial edema when compared to prior study. Assessment and Plan (1) CHF (congestive heart failure): Status: Acute (2) Chest pain: Status: Acute (3) Diabetes mellitus, type 2: Status: Acute Plan 51-year-old male with a past medical history of hypertension, hyperlipidemia, diabetes,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 Vaughn, history of right BKA, history of diabetic foot infection/osteomyelitis/bacteremia, COPD, history of wedge compression fracture, opiate dependence on methadone, anemia presented to the hospital today with a chief complaint of chest pain/shortness of breath/palpitations. Chest pain: Currently resolved. Troponins indeterminate and Plateaued. Cardiology was notified-did not recommend heparin drip. Continue home Plavix, statin, aspirin, beta-cass Acute on chronic CHF: Patient echocardiogram showed EF of 15-25%, grade 3 diastolic dysfunction. Continue IV Lasix 40 mg. Hold home Bumex. Continue home Entresto, carvedilol will defer to cardiology regards empaglifazolin and CardioMEMS. History of diabetes: Hold home insulin regimen. Insulin sliding scale. Monitor fingerstick glucose and adjust as needed. History of opiate dependence: Patient on methadone. Will defer to the day hospitalist to confirm methadone dose and resume accordingly. History of peripheral vascular disease status post left perianal angioplasty in December [address]. [address]. Vaughn in vascular surgery clinic. Continue home aspirin statin, Plavix. History of diabetic foot infection/osteomyelitis; patient was discharged on 01/12/2022 with a PICC line to finished 29 more days of antibiotic course. Currently off antibiotics. History of COPD: DuoNebs p.r.n. DVT prophylaxis: Lovenox Code status: Full code Quality Stroke Does the patient have a stroke diagnosis?: No VTE Prior VTE?: No VTE Risk Level:: Medical - moderate - high VTE Device Contraindication: Treatment Not Indicated VTE Drug Contraindication: N/A - Med Ordered
[2022-02-21] MEDS: Enoxaparin Sodium 40 MG/0.4 ML SYRINGE SUBCUT (23:18)
[2022-02-21] MEDS: Furosemide 40 MG/4 ML VIAL IVPUSH (23:18)
[2022-02-21 23:53] LABS: COVID-19 Test Negative (Negative); IDNOW Serial# 08D9AD1C
[2022-02-22 00:56] VITALS: BP 103/62; PULSE 68; RESP 12; O2SAT 99
[2022-02-22 04:35] VITALS: BP 137/84; PULSE 90; RESP 13; O2SAT 100
[2022-02-22 06:25] VITALS: BP 130/86; PULSE 90; RESP 20; O2SAT 99
[2022-02-22 07:28] LABS: Glucose, Whole Blood 114 mg/dL (60-115)
[2022-02-22 07:31] VITALS: BP 102/65; PULSE 64; RESP 12; O2SAT 100
[2022-02-22 08:00] LABS: MANUAL DIFF FLAG NO
[2022-02-22 08:05] LABS: Basophils Percent Auto 0.6 % (0-2); Eosinophils Absolute Auto 0.2 X10*3/uL (0.0-0.4); Eosinophils Percent Auto 2.7 % (0-4); Hemoglobin 12.9 g/dl (14.0-18.0); Imm Gran Abs Auto 0.02 X10*3/uL (0.00-0.03); Imm Gran Pct Auto 0.3 % (0.0-0.4); Lymphocytes Percent Auto 16.1 % (20-40); Mean Corpuscular HGB Conc 31.5 g/dl (31.0-36.0); Mean Corpuscular Hemoglobin 26.1 pg (27.0-33.0); Mean Corpuscular Volume 82.8 fL (80.0-98.0); Mean Platelet Volume 9.3 fL (9.4-12.4); Monocytes Absolute Auto 0.9 X10*3/uL (0.1-1.2); Neutrophils Absolute Auto 4.3 x10*3/uL (2.0-8.3); Neutrophils Percent Auto 66.3 % (45-73); Platelet Count 274 X10*3/uL (160-400); Red Blood Count 4.95 X10*6/uL (4.60-5.80); Red Cell Distribution Width 16.2 % (11.0-16.0); White Blood Count 6.4 X10*3/uL (4.8-10.8)
--- NOTE | 2022-02-22 08:05 | P.PNIM_ITS ---
Subjective Subjective Date of Service: 02/22/22 Interval History: CHF, chest pain Review of Systems currently patient denies any chest pain, says that shortness of breath slowly improving, denies any abdominal pain or nausea or vomiting. has left foot ulcer but seems mostly dry- left big toe ulcer. Physical Exam Vital Signs: Vital Signs: Last Vital Signs Temp 98.1 F 02/21/22 18:29 Pulse 64 02/22/22 07:31 Resp 12 02/22/22 07:31 BP 102/65 02/22/22 07:31 Pulse Ox 100 02/22/22 07:31 BMI result Body Mass Index 0.0 Gen: Appears be in no acute distress HEENT:? NCAT,? Moist mucosa. Pulmonary:? air entry fair, slightly diminished at bases, mild Faint rales. CVS:rrr,s1s2 heard. Abdomen: BS+, Soft, Nontender Extremities:? No cyanosis or edema, pulses present, patient has chronic toe wound as shown in the picture below Neuro:? Alert and awake, moves all ext. Objective Data Active Medications Acetaminophen (Acetaminophen 325 Mg Tablet) 650 mg PO Q6H PRN PRN Reason: Pain, Mild (Pain Scale 1-3) Dextrose (Dextrose 50 % 25 Gm/50 Ml Syringe) 25 gm IVPUSH Q15M PRN; Protocol PRN Reason: per Hypoglycemia Standing Ord. Enoxaparin Sodium (Enoxaparin Sodium 40 Mg/0.4 Ml Syringe) 40 mg SUBCUT Q24H [facility] Last Admin: 02/21/22 23:18 Dose: 40 mg Documented by: ROYER Furosemide (Furosemide 40 Mg/4 Ml Vial) 40 mg IVPUSH DAILY [facility]; Protocol Glucose (Glucose Gel 15 Gm Gel..Gram.) 15 gm PO Q15M PRN; Protocol PRN Reason: per Hypoglycemia Standing Ord. Insulin Human Lispro (Insulin Lispro 100 Unit/Ml 3 Ml Vial) 0 unit SUBCUT QIDACHS [facility]; Protocol Melatonin (Melatonin 3 Mg Tablet) 6 mg PO BEDTIME PRN PRN Reason: Insomnia Oxycodone HCl (Oxycodone Hcl Immed Release 5 Mg Tablet) 5 mg PO Q6H PRN PRN Reason: Pain, Severe (Pain Scale 7-10) Pharmacy Consult (Consult Rx Perform Med Rec) 1 each MISCELLANE ONCE STA Stop: 02/21/22 22:43 Senna (Sennosides 8.6 Mg Tablet) 17.2 mg PO BEDTIME PRN PRN Reason: Constipation Sodium Chloride (0.9 % Sodium Chloride Flush 3 Ml Syringe) 3 ml IVFLUSH QSHIFT [facility] Last Admin: 02/22/22 01:06 Dose: Not Given Documented by: ROYER Non-Admin Reason: Patient Asleep Labs CBC & Chem 7: 02/22/22 07:36 02/22/22 07:36 Labs: Laboratory Results - last 24 hr 02/21/22 02/21/22 02/21/22 18:53 18:53 18:53 MCV 84.0 MCH 26.1 L MCHC 31.1 RDW 16.1 H Plt Count 300 MPV 9.4 Immature Gran % (Auto) 0.3 Neut % (Auto) 79.4 H Lymph % (Auto) 8.2 L [place] % (Auto) 10.1 Eos % (Auto) 1.7 Baso % (Auto) 0.3 Lymph # (Auto) 0.9 L [place] # (Auto) 1.1 Eos # (Auto) 0.2 Baso # (Auto) 0.0 Abs Immat Gran (auto) 0.03 Absolute Neuts (auto) 8.4 H Absolute Nucleated RBC 0.000 Nucleated RBC % (auto) 0.0 Anion Gap 15 Estim Creat Clear Calc TNP Estimated GFR > 60 POC Glucose Random Glucose 146 H D Calcium 10.2 D Total Bilirubin 0.6 AST 34 ALT 16 Alkaline Phosphatase 88 Total Creatine Kinase Troponin I High Sens 110.8 H* D Total Protein 8.4 H D Albumin 4.0 D COVID-19 (JAMILA) COVID-19 Clin Com 02/21/22 02/21/22 02/21/22 21:33 21:33 23:33 MCV MCH MCHC RDW Plt Count MPV Immature Gran % (Auto) Neut % (Auto) Lymph % (Auto) [place] % (Auto) Eos % (Auto) Baso % (Auto) Lymph # (Auto) [place] # (Auto) Eos # (Auto) Baso # (Auto) Abs Immat Gran (auto) Absolute Neuts (auto) Absolute Nucleated RBC Nucleated RBC % (auto) Anion Gap Estim Creat Clear Calc Estimated GFR POC Glucose Random Glucose Calcium Total Bilirubin AST ALT Alkaline Phosphatase Total Creatine Kinase 577 H D Troponin I High Sens 115.4 H* Total Protein Albumin COVID-19 (JAMILA) Negative COVID-19 Clin Com See Note 02/22/22 07:16 MCV MCH MCHC RDW Plt Count MPV Immature Gran % (Auto) Neut % (Auto) Lymph % (Auto) [place] % (Auto) Eos % (Auto) Baso % (Auto) Lymph # (Auto) [place] # (Auto) Eos # (Auto) Baso # (Auto) Abs Immat Gran (auto) Absolute Neuts (auto) Absolute Nucleated RBC Nucleated RBC % (auto) Anion Gap Estim Creat Clear Calc Estimated GFR POC Glucose 114 Random Glucose Calcium Total Bilirubin AST ALT Alkaline Phosphatase Total Creatine Kinase Troponin I High Sens Total Protein Albumin COVID-19 (JAMILA) COVID-19 Clin Com Assessment and Plan (1) Elevated troponin I level: Status: Acute (2) Chest pain: Status: Acute (3) CHF (congestive heart failure): Status: Acute Plan 51-year-old male with a past medical history of hypertension, hyperlipidemia, diabetes,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 Vaughn, history of right BKA, history of diabetic foot infection/osteomyelitis/bacteremia, COPD, history of wedge compression fracture, opiate dependence on methadone, anemia presented to the hospital today with a chief complaint of chest pain/shortness of breath/palpitations. 1.Chest pain:?Currently resolved. Troponins indeterminate and Plateaued(110-124) Continue home Plavix, statin, aspirin, beta-cass,as per h&p-Cardiology was notified-did not recommend heparin drip.? 2.Acute on chronic CHF possible systolic/diastolic: Patient echocardiogram(10/03)showed EF of 15-25%, grade 3 diastolic dysfunction.? Continue IV Lasix 40 mg.? Hold home Bumex.? Continue home Entresto, carvedilol, iv lasix. moniter i/o , daily weight , bnp cardiology eval 3.History of diabetes:? Hold home insulin regimen.? Insulin sliding scale.? Monitor fingerstick glucose and adjust as needed. fs 110-140's 4.History of opiate dependence: Patient on methadone.? 5.History of peripheral vascular disease status post left perianal angioplasty in December 2021, left foot toe ulcer. ? Continue home aspirin statin, Plavix. History of diabetic foot infection/osteomyelitis; patient was discharged on 01/12/2022 with a PICC line to finished 29 more days of antibiotic course.? Currently off antibiotics. we will add vascular eval for foot ulcer. 6.History of COPD: Shin bynum DVT prophylaxis:? Lovenox Code status:? Full code. need for inpatient: chf on iv diuretics. Quality Stroke Does the patient have a stroke diagnosis?: No VTE Prior VTE?: No VTE Risk Level:: Medical - moderate - high VTE Device Contraindication: Treatment Not Indicated VTE Drug Contraindication: N/A - Med Ordered
[2022-02-22 08:28] LABS: Anion Gap 15 (12-20); Blood Urea Nitrogen 27 mg/dL (9-16); Calcium 9.9 mg/dL (8.4-10.2); Carbon Dioxide 25 mmol/L (22-29); Chloride 102 mmol/L (96-108); Estimated Glomerular Filt Rate > 60; Glucose Random 119 mg/dL (60-115); Sodium 136 mmol/L (135-145)
--- NOTE | 2022-02-22 08:58 | MHC.CM.PN ---
Attempted to meet with patient. Patient currently sleeping. Attempted to arouse multiple times. Patient refused to interact with T/W. Case management assessment completed using medical record. [place] [facility] [place] [facility]. Patient was discharged home from [facility] on 02/[facility]. [facility] in [place] for Methadone. HCP verified to be on file. Patient received 3 Covid vaccines. Anticipate transportation will need to be arranged for patient when medically stable. Continue to monitor for d/c needs.
[2022-02-22] MEDS: Acetaminophen 325 MG TABLET 650 MG PO (09:34)
[2022-02-22] MEDS: 0.9 % Sodium Chloride Flush 3 ML SYRINGE IVFLUSH ×2 (09:37→17:30)
[2022-02-22] MEDS: Furosemide 40 MG/4 ML VIAL IVPUSH (09:38)
--- NOTE | 2022-02-22 09:56 | PHA.MEDREC ---
Pharmacy Consult ? Medication Reconciliation Pharmacy has completed the medication reconciliation.
[2022-02-22 10:08] LABS: B Type Natriuretic Peptide 2116 pg/mL (<100)
[2022-02-22 12:07] LABS: Glucose, Whole Blood 149 mg/dL (60-115)
[2022-02-22 14:31] VITALS: BP 127/85; PULSE 73; RESP 12; TEMP 36.6; O2SAT 100
--- NOTE | 2022-02-22 14:39 | PC.NURSE ---
this rn returned [facility] ([facility] case management) [phone] on pt status.
--- NOTE | 2022-02-22 15:01 | P.CONCA_ITS ---
History of Present Illness History of Present Illness Date of Service: 02/22/22 Requesting physician: Macy Foy Chief complaint: CHF, CP Narrative: 51-year-old gentleman background history of bibasilar disease with right side amputation, hypertension, hyperlipidemia, diabetes and systolic heart failure ejection before%. He is presenting for chest discomfort. He is describing weight pressure-like feeling on the left side of his chest. This was the 1st t ronald had any chest discomfort when before. He with these symptoms he presented to [place]. He was complaining of some shortness of breath and was noted to be congestive heart failure and was admitted for diuresis. He is saying with diuretics he is feeling better. He denies any chest discomfort now. His high sensitivity troponin levels were mildly abnormal and flat. [facility] Past Medical History Medical History (Updated 02/21/22 @ 23:19 by Kylee Sun NP) Abscess or cellulitis of foot Acute on chronic anemia Acute on chronic combined systolic and diastolic congestive heart failure Acute on chronic HFrEF (heart failure with reduced ejection fraction) Acute respiratory failure with hypoxia Asthma Bipolar 1 disorder BPH (benign prostatic hyperplasia) CHF exacerbation Cholelithiasis Closed wedge compression fracture of T9 vertebra COPD (chronic obstructive pulmonary disease) Diabetes mellitus Diabetes mellitus, type 2 Elevated troponin GERD (gastroesophageal reflux disease) Hyperlipidemia Ischemic cardiomyopathy Lymphadenopathy Opiate abuse, continuous Osteomyelitis Peripheral arterial disease Peripheral neuropathy Peripheral vascular disease Substance abuse Tracheomalacia, acquired Family History Family History Father Chronic mental illness Hypertension Asthma Stroke Mother Asthma Diabetes Coronary artery disease Surgical History Surgical History History of amputation History of laminectomy History of transurethral resection of prostate Hx of BKA Social History Social History Household Members: None Housing: Apartment Housing Other:: IN A LITTLE ROOM Do you presently have visiting nurse or other home services: Yes Alcohol intake: never Patient Tobacco Use Status: Never used Tobacco e-Cigarette/Vaping Use: Never Used Second Hand Smoke Exposure: No Substance Use Type: Marijuana Advance Directives: Yes Advance Directives on File: Yes Advance Directives Date on File: 11/24/20 service: No Current occupational status: disabled Meds Allergies Allergy/AdvReac Type Severity Reaction Status Date / Time ertapenem Allergy Intermediate Hives Verified 02/21/22 18:40 vancomycin [VANCOMYCIN] Allergy Intermediate HIVES Verified 02/21/22 18:40 Chocolate Allergy Unknown Rash Verified 02/21/22 18:40 ciprofloxacin [From CIPRO] Allergy Unknown SWELLING Verified 02/21/22 18:40 hydrocortisone [Cipro HC] Allergy Unknown Unknown Verified 02/21/22 18:40 sulfamethoxazole Allergy Unknown rash Verified 02/21/22 18:40 [From BACTRIM] trimethoprim [From BACTRIM] Allergy Unknown rash Verified 02/21/22 18:40 turkey [TURKEY] Allergy Unknown RASH Verified 02/21/22 18:40 Active Medications: Current Medications Acetaminophen (Acetaminophen 325 Mg Tablet) 650 mg PO Q6H PRN PRN Reason: Pain, Mild (Pain Scale 1-3) Last Admin: 02/22/22 09:34 Dose: 650 mg Documented by: Dextrose (Dextrose 50 % 25 Gm/50 Ml Syringe) 25 gm IVPUSH Q15M PRN; Protocol PRN Reason: per Hypoglycemia Standing Ord. Enoxaparin Sodium (Enoxaparin Sodium 40 Mg/0.4 Ml Syringe) 40 mg SUBCUT Q24H [facility] Last Admin: 02/21/22 23:18 Dose: 40 mg Documented by: Furosemide (Furosemide 40 Mg/4 Ml Vial) 40 mg IVPUSH DAILY [facility]; Protocol Last Admin: 02/22/22 09:38 Dose: 40 mg Documented by: Glucose (Glucose Gel 15 Gm Gel..Gram.) 15 gm PO Q15M PRN; Protocol PRN Reason: per Hypoglycemia Standing Ord. Insulin Human Lispro (Insulin Lispro 100 Unit/Ml 3 Ml Vial) 0 unit SUBCUT QIDACHS [facility]; Protocol Last Admin: 02/22/22 13:20 Dose: Not Given Documented by: Melatonin (Melatonin 3 Mg Tablet) 6 mg PO BEDTIME PRN PRN Reason: Insomnia Oxycodone HCl (Oxycodone Hcl Immed Release 5 Mg Tablet) 5 mg PO Q6H PRN PRN Reason: Pain, Severe (Pain Scale 7-10) Senna (Sennosides 8.6 Mg Tablet) 17.2 mg PO BEDTIME PRN PRN Reason: Constipation Sodium Chloride (0.9 % Sodium Chloride Flush 3 Ml Syringe) 3 ml IVFLUSH QSHIFT [facility] Last Admin: 02/22/22 09:37 Dose: 3 ml Documented by: Home Medications Medication Instructions Recorded Confirmed Last Taken Type FreeStyle Lite Strips 08/12/20 02/13/21 Unknown History albuterol sulfate 2.5 mg INHALATION Q4H PRN 08/12/20 02/22/22 Unknown History albuterol sulfate 90 mcg/actuation 2 puff INHALATION Q4H PRN 08/12/20 02/22/22 02/21/22 History aerosol inhaler blood-glucose meter (FreeStyle 08/12/20 02/13/21 Unknown History Criders Lite) cane 08/12/20 02/13/21 Unknown History lancets 08/12/20 02/13/21 Unknown History methadone 10 mg/mL oral concentrate 50 mg PO QAM 08/12/20 02/22/22 02/21/22 History pen needle, diabetic 08/12/20 02/13/21 Unknown History aspirin 81 mg tablet,delayed 81 mg PO DAILY 08/14/20 02/22/22 Unknown History release atorvastatin 20 mg tablet 20 mg PO BEDTIME 08/14/20 02/22/22 Unknown History cetirizine 10 mg tablet 10 mg PO DAILY 08/14/20 02/22/22 Unknown History fluticasone propionate 50 1 spray INTRANASAL DAILY PRN 08/14/20 02/22/22 Unknown History mcg/actuation nasal spray,suspension (Flonase Allergy Relief) gabapentin 100 mg capsule 200 mg PO TID 08/14/20 02/22/22 Unknown History insulin glargine 100 unit/mL 12 unit SUBCUT QPM 08/14/20 02/22/22 Unknown Histor y subcutaneous solution (Lantus U-100 Insulin) montelukast 10 mg tablet 10 mg PO BEDTIME 08/14/20 02/22/22 Unknown History tamsulosin 0.4 mg capsule 0.4 mg PO DAILY 08/14/20 02/22/22 Unknown History clopidogrel 75 mg tablet 1 tab PO QAM 10/08/21 02/22/22 Unknown History famotidine 20 mg tablet 20 mg PO BID 12/30/21 02/22/22 Unknown History fluticasone 500 mcg-salmeterol 50 1 inh INHALATION BID 12/30/21 02/22/22 Unknown History mcg/dose blistr powdr for inhalation (Advair Diskus) insulin aspart U-100 100 unit/mL 5 unit SUBCUT TID 12/30/21 02/22/22 Unknown His tory (3 mL) subcutaneous pen (Novolog Flexpen U-100 Insulin aspart) lidocaine 5 % topical patch 1 patch TOPICAL DAILY 12/30/21 02/22/22 Unknown History zinc 50 mg tablet 50 mg PO DAILY 12/30/21 02/22/22 Unknown History Physical Exam Vital Signs: Vital Signs: Last Vital Signs Temp 97.8 F 02/22/22 14:31 Pulse 73 02/22/22 14:31 Resp 12 02/22/22 14:31 BP 127/85 02/22/22 14:31 Pulse Ox 100 02/22/22 14:31 BMI result Body Mass Index 0.0 GENERAL APPEARANCE: in no acute distress, pleasant. NECK: no carotid bruit, no jugular venous distention. +HJR. SKIN: no suspicious lesions, warm and dry. HEART: no murmurs, regular rate and rhythm. LUNGS: clear to auscultation bilaterally. ABDOMEN: soft, nontender. EXTREMITIES: no edema. right amputation. PERIPHERAL PULSES: equal. NEUROLOGIC: No gross deficits, AAO X 3 Objective Labs and Meds Result diagrams: 02/22/22 07:36 02/22/22 07:36 Lab results: Laboratory Results - last 24 hr 02/21/22 02/21/22 02/21/22 18:53 18:53 18:53 WBC 10.6 RBC 5.36 D Hgb 14.0 D Hct 45.0 D MCV 84.0 MCH 26.1 L MCHC 31.1 RDW 16.1 H Plt Count 300 MPV 9.4 Immature Gran % (Auto) 0.3 Neut % (Auto) 79.4 H Lymph % (Auto) 8.2 L [place] % (Auto) 10.1 Eos % (Auto) 1.7 Baso % (Auto) 0.3 Lymph # (Auto) 0.9 L [place] # (Auto) 1.1 Eos # (Auto) 0.2 Baso # (Auto) 0.0 Abs Immat Gran (auto) 0.03 Absolute Neuts (auto) 8.4 H Absolute Nucleated RBC 0.000 Nucleated RBC % (auto) 0.0 Sodium 136 Potassium 4.9 Chloride 103 Carbon Dioxide 23 Anion Gap 15 BUN 31 H Creatinine 1.03 Estim Creat Clear Calc TNP Estimated GFR > 60 POC Glucose Random Glucose 146 H D Calcium 10.2 D Total Bilirubin 0.6 AST 34 ALT 16 Alkaline Phosphatase 88 Total Creatine Kinase Troponin I High Sens 110.8 H* D B-Natriuretic Peptide Total Protein 8.4 H D Albumin 4.0 D COVID-19 (JAMILA) COVID-19 Clin Com 02/21/22 02/21/22 02/21/22 21:33 21:33 23:33 WBC RBC Hgb Hct MCV MCH MCHC RDW Plt Count MPV Immature Gran % (Auto) Neut % (Auto) Lymph % (Auto) [place] % (Auto) Eos % (Auto) Baso % (Auto) Lymph # (Auto) [place] # (Auto) Eos # (Auto) Baso # (Auto) Abs Immat Gran (auto) Absolute Neuts (auto) Absolute Nucleated RBC Nucleated RBC % (auto) Sodium Potassium Chloride Carbon Dioxide Anion Gap BUN Creatinine Estim Creat Clear Calc Estimated GFR POC Glucose Random Glucose Calcium Total Bilirubin AST ALT Alkaline Phosphatase Total Creatine Kinase 577 H D Troponin I High Sens 115.4 H* B-Natriuretic Peptide Total Protein Albumin COVID-19 (JAMILA) Negative COVID-19 Clin Com See Note 02/22/22 02/22/22 02/22/22 07:16 07:36 07:36 WBC 6.4 RBC 4.95 Hgb 12.9 L Hct 41.0 L MCV 82.8 MCH 26.1 L MCHC 31.5 RDW 16.2 H Plt Count 274 MPV 9.3 L Immature Gran % (Auto) 0.3 Neut % (Auto) 66.3 Lymph % (Auto) 16.1 L [place] % (Auto) 14.0 H Eos % (Auto) 2.7 Baso % (Auto) 0.6 Lymph # (Auto) 1.0 L [place] # (Auto) 0.9 Eos # (Auto) 0.2 Baso # (Auto) 0.0 Abs Immat Gran (auto) 0.02 Absolute Neuts (auto) 4.3 Absolute Nucleated RBC 0.000 Nucleated RBC % (auto) 0.0 Sodium Potassium Chloride Carbon Dioxide Anion Gap BUN Creatinine Estim Creat Clear Calc Estimated GFR POC Glucose 114 Random Glucose Calcium Total Bilirubin AST ALT Alkaline Phosphatase Total Creatine Kinase Troponin I High Sens 124.0 H* B-Natriuretic Peptide Total Protein Albumin COVID-19 (JAMILA) COVID-19 Clin Com 02/22/22 02/22/22 02/22/22 07:36 09:39 12:04 WBC RBC Hgb Hct MCV MCH MCHC RDW Plt Count MPV Immature Gran % (Auto) Neut % (Auto) Lymph % (Auto) [place] % (Auto) Eos % (Auto) Baso % (Auto) Lymph # (Auto) [place] # (Auto) Eos # (Auto) Baso # (Auto) Abs Immat Gran (auto) Absolute Neuts (auto) Absolute Nucleated RBC Nucleated RBC % (auto) Sodium 136 Potassium 4.0 Chloride 102 Carbon Dioxide 25 Anion Gap 15 BUN 27 H Creatinine 0.88 Estim Creat Clear Calc TNP Estimated GFR > 60 POC Glucose 149 H Random Glucose 119 H Calcium 9.9 Total Bilirubin AST ALT Alkaline Phosphatase Total Creatine Kinase Troponin I High Sens B-Natriuretic Peptide 2116 H Total Protein Albumin COVID-19 (JAMILA) COVID-19 Clin Com Imaging Radiologist's impression: Impressions Chest X-Ray 02/21/22 19:23 IMPRESSION: Central vascular prominence suggesting component of mild interstitial edema when compared to prior study. Assessment and Plan (1) Chest pain: Status: Acute (2) CHF (congestive heart failure): Status: Acute Plan 51-year-old gentleman with known cardiomyopathy, peripheral vascular disease with amputation, hypertension, hyperlipidemia, diabetes, COPD and multiple admissions with chest pain in the past. He is again presenting for chest pain. By more further mildly abnormal but flat. He also has features of congestive heart failure. I think the troponins are related to elevated filling pressures. I do not believe that he follows outpatient with anyone and whether he had any invasive workup for his cardiomyopathy. In any case right now he is volume overloaded. I think we continue IV diuretics today. Please monitor electrolytes closely because he has history of torsades from hypoglycemia in the past. As volume status improves I think potentially can be discharged home, most likely tomorrow. Thank you for allowing me to participate in the care of your patient. Please feel free to contact me if you have any questions. Procedures Date of Service Date of Service: 02/22/22
--- NOTE | 2022-02-22 16:53 | PC.NURSE ---
[facility] [phone]
[2022-02-22] MEDS: oxyCODONE HCl Immed Release 5 MG TABLET PO (17:26)
[2022-02-22] MEDS: Aspirin Enteric Coated 81 MG TABLET.DR PO (17:37)
[2022-02-22] MEDS: methADONE HCl 20 MG/2 ML ORAL.CONC PO (17:37)
[2022-02-22] MEDS: Loratadine 10 MG TABLET PO (17:37)
[2022-02-22] MEDS: Tamsulosin HCL 0.4 MG CAPSULE PO (17:37)
[2022-02-22 18:56] LABS: Glucose, Whole Blood 119 mg/dL (60-115)
[2022-02-22] MEDS: Sacubitril/Valsartan 24/26 1 TAB TABLET PO (21:27)
[2022-02-22] MEDS: Famotidine 20 MG TABLET PO (21:27)
[2022-02-22] MEDS: Atorvastatin Calcium 20 MG TABLET PO (21:27)
[2022-02-22] MEDS: Montelukast Sodium 10 MG TABLET PO (21:27)
[2022-02-22] MEDS: carvediloL 3.125 MG TABLET PO (21:27)
[2022-02-22 21:33] LABS: Glucose, Whole Blood 224 mg/dL (60-115)
[2022-02-22 21:37] VITALS: BP 123/78; PULSE 79; RESP 16; TEMP 36.6; O2SAT 100
[2022-02-22] MEDS: Insulin Lispro 100 UNIT/ML 3 ML VIAL SUBCUT (21:38)
[2022-02-23 07:48] LABS: Glucose, Whole Blood 114 mg/dL (60-115)
[2022-02-23 08:25] LABS: Hematocrit 39.2 % (42.0-52.0); Hemoglobin 12.4 g/dl (14.0-18.0); Mean Corpuscular HGB Conc 31.6 g/dl (31.0-36.0); Mean Corpuscular Hemoglobin 26.1 pg (27.0-33.0); Mean Corpuscular Volume 82.5 fL (80.0-98.0); Mean Platelet Volume 9.5 fL (9.4-12.4); Platelet Count 250 X10*3/uL (160-400); Red Blood Count 4.75 X10*6/uL (4.60-5.80); Red Cell Distribution Width 15.9 % (11.0-16.0); White Blood Count 7.4 X10*3/uL (4.8-10.8)
[2022-02-23 08:43] LABS: Anion Gap 12 (12-20); Blood Urea Nitrogen 28 mg/dL (9-16); Calcium 9.5 mg/dL (8.4-10.2); Carbon Dioxide 26 mmol/L (22-29); Chloride 102 mmol/L (96-108); Estimated Glomerular Filt Rate > 60; Glucose Random 111 mg/dL (60-115); Potassium 4.1 mmol/L (3.3-5.1); Sodium 136 mmol/L (135-145)
[2022-02-23 08:45] LABS: B Type Natriuretic Peptide 1213 pg/mL (<100)
[2022-02-23 09:23] VITALS: BP 100/65; PULSE 65; RESP 18; TEMP 36.8; O2SAT 99
[2022-02-23] MEDS: Furosemide 40 MG/4 ML VIAL IVPUSH (09:23)
[2022-02-23] MEDS: Loratadine 10 MG TABLET PO (09:23)
[2022-02-23] MEDS: Tamsulosin HCL 0.4 MG CAPSULE PO (09:23)
[2022-02-23] MEDS: 0.9 % Sodium Chloride Flush 3 ML SYRINGE IVFLUSH (09:23)
[2022-02-23] MEDS: Famotidine 20 MG TABLET PO (09:24)
[2022-02-23] MEDS: Sacubitril/Valsartan 24/26 1 TAB TABLET PO (09:24)
[2022-02-23] MEDS: Clopidogrel Bisulfate 75 MG TABLET PO (09:24)
[2022-02-23] MEDS: Aspirin Enteric Coated 81 MG TABLET.DR PO (09:24)
[2022-02-23] MEDS: carvediloL 3.125 MG TABLET PO (09:24)
[2022-02-23] MEDS: Zinc Sulfate 220 MG CAPSULE PO (09:24)
--- NOTE | 2022-02-23 09:42 | P.CONGS_ITS ---
History of Present Illness Consult details Consult date: 02/23/22 Narrative: Pleasant 51-year-old gentleman well known to me with a history of peripheral vascular disease who was admitted yesterday for exacerbation of his Congestive heart failure and breathing difficulty. He believe that this was somewhat related to his asthma and allergies as well. He has done extremely well overnight. He reports that he is significantly better this morning. He now presents for vascular follow-up. 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 And most recently in December he had left peroneal plasty. He now presents for vascular evaluation. Review of Systems Review of Systems: Yes all other systems are reviewed and are negative Constitutional: Constitutional: Reports no additional constitutional complaints ENT: Reports Normal hearing present Cardiovascular: Cardiovascular: Denies chest pain, Denies chest pain at rest, Denies chest pain with activity and Denies pedal edema Respiratory: Respiratory: Denies cough Gastrointestinal: Gastrointestinal: Denies abdominal pain Musculoskeletal: Musculoskeletal: Denies abnormal gait, Denies muscle cramps and Denies radiating pain into limb Integumentary/Breasts: Skin/Breast: Denies skin ulcer and Denies wounds Neurologic: Reports Normal hearing present and Denies abnormal gait Psychiatric: Psychiatric: Reports no additional psychiatric complaints PMF Past Medical History Medical History (Updated 02/21/22 @ 23:19 by Kylee Sun NP) Abscess or cellulitis of foot Acute on chronic anemia Acute on chronic combined systolic and diastolic congestive heart failure Acute on chronic HFrEF (heart failure with reduced ejection fraction) Acute respiratory failure with hypoxia Asthma Bipolar 1 disorder BPH (benign prostatic hyperplasia) CHF exacerbation Cholelithiasis Closed wedge compression fracture of T9 vertebra COPD (chronic obstructive pulmonary disease) Diabetes mellitus Diabetes mellitus, type 2 Elevated troponin GERD (gastroesophageal reflux disease) Hyperlipidemia Ischemic cardiomyopathy Lymphadenopathy Opiate abuse, continuous Osteomyelitis Peripheral arterial disease Peripheral neuropathy Peripheral vascular disease Substance abuse Tracheomalacia, acquired Family History Family History Father Chronic mental illness Hypertension Asthma Stroke Mother Asthma Diabetes Coronary artery disease Surgical History Surgical History History of amputation History of laminectomy History of transurethral resection of prostate Hx of BKA Social History Social History Household Members: None Housing: Apartment Housing Other:: IN A LITTLE ROOM Do you presently have visiting nurse or other home services: Yes Alcohol intake: never Patient Tobacco Use Status: Never used Tobacco e-Cigarette/Vaping Use: Never Used Second Hand Smoke Exposure: No Substance Use Type: Marijuana Advance Directives: Yes Advance Directives on File: Yes Advance Directives Date on File: 11/24/20 service: No Current occupational status: disabled Meds Allergies Allergy/AdvReac Type Severity Reaction Status Date / Time ertapenem Allergy Intermediate Hives Verified 02/21/22 18:40 vancomycin [VANCOMYCIN] Allergy Intermediate HIVES Verified 02/21/22 18:40 Chocolate Allergy Unknown Rash Verified 02/21/22 18:40 ciprofloxacin [From CIPRO] Allergy Unknown SWELLING Verified 02/21/22 18:40 hydrocortisone [Cipro HC] Allergy Unknown Unknown Verified 02/21/22 18:40 sulfamethoxazole Allergy Unknown rash Verified 02/21/22 18:40 [From BACTRIM] trimethoprim [From BACTRIM] Allergy Unknown rash Verified 02/21/22 18:40 turkey [TURKEY] Allergy Unknown RASH Verified 02/21/22 18:40 Active Medications: Current Medications Acetaminophen (Acetaminophen 325 Mg Tablet) 650 mg PO Q6H PRN PRN Reason: Pain, Mild (Pain Scale 1-3) Last Admin: 02/22/22 09:34 Dose: 650 mg Documented by: Albuterol/Ipratropium (Albuterol/Iprat 2.5/0.5mg 3 Ml Ampul.Neb) 3 ml INHALE Q4H PRN PRN Reason: Shortness of Breath Aspirin (Aspirin Enteric Coated 81 Mg Tablet.) 81 mg PO DAILY [facility] Last Admin: 02/23/22 09:24 Dose: 81 mg Documented by: Atorvastatin Calcium (Atorvastatin Calcium 20 Mg Tablet) 20 mg PO BEDTIME [facility] Last Admin: 02/22/22 21:27 Dose: 20 mg Documented by: Carvedilol (Carvedilol 3.125 Mg Tablet) 3.125 mg PO BID [facility]; Protocol Last Admin: 02/23/22 09:24 Dose: 3.125 mg Documented by: Clopidogrel Bisulfate (Clopidogrel Bisulfate 75 Mg Tablet) 75 mg PO DAILY [facility] Last Admin: 02/23/22 09:24 Dose: 75 mg Documented by: Dextrose (Dextrose 50 % 25 Gm/50 Ml Syringe) 25 gm IVPUSH Q15M PRN; Protocol PRN Reason: per Hypoglycemia Standing Ord. Enoxaparin Sodium (Enoxaparin Sodium 40 Mg/0.4 Ml Syringe) 40 mg SUBCUT Q24H [facility] Last Admin: 02/22/22 23:22 Dose: Not Given Documented by: Famotidine (Famotidine 20 Mg Tablet) 20 mg PO BID [facility] Last Admin: 02/23/22 09:24 Dose: 20 mg Documented by: Fluticasone Propionate (Fluticasone Propionate Nasal 16 Gm [place]) 1 spray NOSTR [place]-B DAILY PRN PRN Reason: Nasal Congestion Furosemide (Furosemide 40 Mg/4 Ml Vial) 40 mg IVPUSH DAILY [facility]; Protocol Last Admin: 02/23/22 09:23 Dose: 40 mg Documented by: Gabapentin (Gabapentin 100 Mg Capsule) 200 mg PO TID [facility] Last Admin: 02/23/22 09:26 Dose: Not Given Documented by: Glucose (Glucose Gel 15 Gm Gel..Gram.) 15 gm PO Q15M PRN; Protocol PRN Reason: per Hypoglycemia Standing Ord. Insulin Human Lispro (Insulin Lispro 100 Unit/Ml 3 Ml Vial) 0 unit SUBCUT QIDACHS [facility]; Protocol Last Admin: 02/23/22 07:42 Dose: Not Given Documented by: Lidocaine (Lidocaine 4 % Patch Adh..Patch) 1 patch TRANSDERMA DAILY [facility] Loratadine (Loratadine 10 Mg Tablet) 10 mg PO DAILY [facility] Last Admin: 02/23/22 09:23 Dose: 10 mg Documented by: Melatonin (Melatonin 3 Mg Tablet) 6 mg PO BEDTIME PRN PRN Reason: Insomnia Methadone HCl (Methadone Hcl 20 Mg/2 Ml Oral.Conc) 50 mg PO DAILY [facility] Montelukast Sodium (Montelukast Sodium 10 Mg Tablet) 10 mg PO BEDTIME [facility] Last Admin: 02/22/22 21:27 Dose: 10 mg Documented by: Oxycodone HCl (Oxycodone Hcl Immed Release 5 Mg Tablet) 5 mg PO Q6H PRN PRN Reason: Pain, Severe (Pain Scale 7-10) Last Admin: 02/22/22 17:26 Dose: 5 mg Documented by: Sacubitril/Valsartan (Sacubitril/Valsartan 1 Tab Tablet) 1 tab PO BID [facility]; Protocol Last Admin: 02/23/22 09:24 Dose: 1 tab Documented by: Senna (Sennosides 8.6 Mg Tablet) 17.2 mg PO BEDTIME PRN PRN Reason: Constipation Sodium Chloride (0.9 % Sodium Chloride Flush 3 Ml Syringe) 3 ml IVFLUSH QSHIFT [facility] Last Admin: 02/23/22 09:23 Dose: 3 ml Documented by: Tamsulosin HCl (Tamsulosin Hcl 0.4 Mg Capsule) 0.4 mg PO DAILY [facility] Last Admin: 02/23/22 09:23 Dose: 0.4 mg Documented by: Zinc Sulfate (Zinc Sulfate 220 Mg Capsule) 220 mg PO DAILY [facility] Last Admin: 02/23/22 09:24 Dose: 220 mg Documented by: Home Medications Medication Instructions Recorded Confirmed Last Taken Type FreeStyle Lite Strips 08/12/20 02/13/21 Unknown History albuterol sulfate 2.5 mg INHALATION Q4H PRN 08/12/20 02/22/22 Unknown History albuterol sulfate 90 mcg/actuation 2 puff INHALATION Q4H PRN 08/12/20 02/22/22 02/21/22 History aerosol inhaler blood-glucose meter (FreeStyle 08/12/20 02/13/21 Unknown History [place] Lite) cane 08/12/20 02/13/21 Unknown History lancets 08/12/20 02/13/21 Unknown History methadone 10 mg/mL oral concentrate 50 mg PO QAM 08/12/20 02/22/22 02/21/22 History pen needle, diabetic 08/12/20 02/13/21 Unknown History aspirin 81 mg tablet,delayed 81 mg PO DAILY 08/14/20 02/22/22 Unknown History release atorvastatin 20 mg tablet 20 mg PO BEDTIME 08/14/20 02/22/22 Unknown History cetirizine 10 mg tablet 10 mg PO DAILY 08/14/20 02/22/22 Unknown History fluticasone propionate 50 1 spray INTRANASAL DAILY PRN 08/14/20 02/22/22 Unknown History mcg/actuation nasal spray,suspension (Flonase Allergy Relief) gabapentin 100 mg capsule 200 mg PO TID 08/14/20 02/22/22 Unknown History insulin glargine 100 unit/mL 12 unit SUBCUT QPM 08/14/20 02/22/22 Unknown History subcutaneous solution (Lantus U-100 Insulin) montelukast 10 mg tablet 10 mg PO BEDTIME 08/14/20 02/22/22 Unknown History tamsulosin 0.4 mg capsule 0.4 mg PO DAILY 08/14/20 02/22/22 Unknown History clopidogrel 75 mg tablet 1 tab PO QAM 10/08/21 02/22/22 Unknown History famotidine 20 mg tablet 20 mg PO BID 12/30/21 02/22/22 Unknown History fluticasone 500 mcg-salmeterol 50 1 inh INHALATION BID 12/30/21 02/22/22 Unknown History mcg/dose blistr powdr for inhalation (Advair Diskus) insulin aspart U-100 100 unit/mL 5 unit SUBCUT TID 12/30/21 02/22/22 Unknown History (3 mL) subcutaneous pen (Novolog Flexpen U-100 Insulin aspart) lidocaine 5 % topical patch 1 patch TOPICAL DAILY 12/30/21 02/22/22 Unknown History zinc 50 mg tablet 50 mg PO DAILY 12/30/21 02/22/22 Unknown History Physical Exam Vital Signs: Vital Signs: Last Vital Signs Temp 98.2 F 02/23/22 09:23 Pulse 65 02/23/22 09:23 Resp 18 02/23/22 09:23 BP 100/65 02/23/22 09:23 Pulse Ox 99 02/23/22 09:23 BMI result Body Mass Index 0.0 Const: General: cooperative, healthy appearing and comfortable Orien tation/consciousness: oriented to person, oriented to place and oriented to time HEENT: Head: Yes normal to inspection Neck: Neck: Yes normal visual inspection Carotids: no bruits Chest: Chest palpation & inspection: normal inspection of the chest Resp: Effort & Inspection: normal respiratory effort and able to speak in complete sentences Auscultation: clear to auscultation bilaterally, no crackles, no rales, no rhonchi and no wheezes Cardio: Rate: regular rate Rhythm: regular rhythm Heart sounds: S1 norm al heart sound present and S2 normal heart sound present Bruits: no carotid bruits Peripheral pulses: Peripheral pulses 2+ throughout GI: Inspection: Yes normal to inspection Skin: Wounds: amputation site (Right-sided stump well healed) and wounds noted (Left 2nd toe dry eschar - superficial) Hair: normal Neuro: General: oriented to person, oriented to place and oriented to time Cranial nerves: Yes CN's II-XII intact bilaterally and Yes Normal hearing present Cognition (Neuro): normal cognition Motor exam (neuro): 5/5 motor strength present throughout Extrem: Other: venous exam: No significant superficial varicosities or spider telangiectasias, minimal edema General: No clubbing, No cyanosis and No edema Psych: Appearance: grossly normal Mental Status: mental status grossly normal Speech and movement: Normal speech and movement present Results Labs Result diagrams: 02/23/22 08:09 02/23/22 08:09 Labs: Abnormal lab results 02/22/22 02/22/22 02/22/22 Range/Units 09:39 12:04 18:53 Hgb (14.0-18.0) g/dl Hct (42.0-52.0) % MCH (27.0-33.0) pg BUN (9-16) mg/dL POC Glucose 149 H 119 H (60-115) mg/dL B-Natriuretic Peptide 2116 H (<100) pg/mL 02/22/22 02/23/22 02/23/22 Range/Units 21:30 08:09 08:09 Hgb 12.4 L (14.0-18.0) g/dl Hct 39.2 L (42.0-52.0) % MCH 26.1 L (27.0-33.0) pg BUN 28 H (9-16) mg/dL POC Glucose 224 H (60-115) mg/dL B-Natriuretic Peptide (<100) pg/mL 02/23/22 Range/Units 08:09 Hgb (14.0-18.0) g/dl Hct (42.0-52.0) % MCH (27.0-33.0) pg BUN (9-16) mg/dL POC Glucose (60-115) mg/dL B-Natriuretic Peptide 1213 H (<100) pg/mL Short CBC 02/23/22 Range/Units 08:09 WBC 7.4 (4.8-10.8) X10*3/uL Hgb 12.4 L (14.0-18.0) g/dl Hct 39.2 L (42.0-52.0) % Plt Count 250 (160-400) X10*3/uL BMP 02/23/22 08:09 Sodium 136 Potassium 4.1 Chloride 102 Carbon Dioxide 26 BUN 28 H Creatinine 0.90 Calcium 9.5 All other labs normal. Assessment and Plan (1) Peripheral arterial disease: Status: Acute Plan In short patient is doing well from his peripheral vascular disease. At the current time it appears to be stable. Would treat medically in terms of his shortness of breath. Once that resolves stable from my perspective for discharge. He has a routine scheduled follow-up for surveillance follow-up with us. He can keep that. Thank you for allowing us to assist in his care. If there are any questions or concerns please do not hesitate to contact us. Procedures Date of Service Date of Service: 02/23/22
[2022-02-23] MEDS: Lidocaine 4 % Patch ADH..PATCH 1 PATCH TRANSDERMA (10:06)
[2022-02-23] MEDS: methADONE HCl 20 MG/2 ML ORAL.CONC 50 MG PO (11:12)
--- NOTE | 2022-02-23 11:43 | PM.PNCARD ---
Subjective Subjective Date of Service: 02/23/22 Interval history: Feeling better. No more CP. Physical Exam Vital Signs: Last Vital Signs Temp 98.2 F 02/23/22 09:23 Pulse 65 02/23/22 09:23 Resp 18 02/23/22 09:23 BP 100/65 02/23/22 09:23 Pulse Ox 99 02/23/22 09:23 BMI result Body Mass Index 0.0 GENERAL APPEARANCE: in no acute distress, pleasant. NECK: no carotid bruit, no jugular venous distention. SKIN: no suspicious lesions, warm and dry. HEART: no murmurs, regular rate and rhythm. LUNGS: clear to auscultation bilaterally. ABDOMEN: soft, nontender. EXTREMITIES: no edema. right amputation. PERIPHERAL PULSES: equal. NEUROLOGIC: No gross deficits, AAO X 3 Objective Labs and Meds Result diagrams: 02/23/22 08:09 02/23/22 08:09 Lab results: Laboratory Results - last 24 hr 02/22/22 02/22/22 02/22/22 12:04 18:53 21:30 WBC RBC Hgb Hct MCV MCH MCHC RDW Plt Count MPV Absolute Nucleated RBC Nucleated RBC % (auto) Sodium Potassium Chloride Carbon Dioxide Anion Gap BUN Creatinine Estim Creat Clear Calc Estimated GFR POC Glucose 149 H 119 H 224 H Random Glucose Calcium B-Natriuretic Peptide 02/23/22 02/23/22 02/23/22 07:39 08:09 08:09 WBC 7.4 RBC 4.75 Hgb 12.4 L Hct 39.2 L MCV 82.5 MCH 26.1 L MCHC 31.6 RDW 15.9 Plt Count 250 MPV 9.5 Absolute Nucleated RBC 0.000 Nucleated RBC % (auto) 0.0 Sodium 136 Potassium 4.1 Chloride 102 Carbon Dioxide 26 Anion Gap 12 BUN 28 H Creatinine 0.90 Estim Creat Clear Calc TNP Estimated GFR > 60 POC Glucose 114 Random Glucose 111 Calcium 9.5 B-Natriuretic Peptide 02/23/22 08:09 WBC RBC Hgb Hct MCV MCH MCHC RDW Plt Count MPV Absolute Nucleated RBC Nucleated RBC % (auto) Sodium Potassium Chloride Carbon Dioxide Anion Gap BUN Creatinine Estim Creat Clear Calc Estimated GFR POC Glucose Random Glucose Calcium B-Natriuretic Peptide 1213 H Progress Note: A&P Assessment and plan (1) Elevated troponin I level: Status: Acute (2) Chest pain: Status: Acute (3) CHF (congestive heart failure): Status: Acute Plan 51 male wth known cardiomyopathy and CHF Admitted with CP and CHF. Diuresed and better. Would pursue work up as outpatient for cardiomyopathy. Advised him to follow in clinic. Fall Risk Details Current Medications: Current Medications Acetaminophen (Acetaminophen 325 Mg Tablet) 650 mg PO Q6H PRN PRN Reason: Pain, Mild (Pain Scale 1-3) Last Admin: 02/22/22 09:34 Dose: 650 mg Documented by: Albuterol/Ipratropium (Albuterol/Iprat 2.5/0.5mg 3 Ml Ampul.Neb) 3 ml INHALE Q4H PRN PRN Reason: Shortness of Breath Aspirin (Aspirin Enteric Coated 81 Mg Tablet.) 81 mg PO DAILY [facility] Last Admin: 02/23/22 09:24 Dose: 81 mg Documented by: Atorvastatin Calcium (Atorvastatin Calcium 20 Mg Tablet) 20 mg PO BEDTIME [facility] Last Admin: 02/22/22 21:27 Dose: 20 mg Documented by: Carvedilol (Carvedilol 3.125 Mg Tablet) 3.125 mg PO BID [facility]; Protocol Last Admin: 02/23/22 09:24 Dose: 3.125 mg Documented by: Clopidogrel Bisulfate (Clopidogrel Bisulfate 75 Mg Tablet) 75 mg PO DAILY [facility] Last Admin: 02/23/22 09:24 Dose: 75 mg Documented by: Dextrose (Dextrose 50 % 25 Gm/50 Ml Syringe) 25 gm IVPUSH Q15M PRN; Protocol PRN Reason: per Hypoglycemia Standing Ord. Enoxaparin Sodium (Enoxaparin Sodium 40 Mg/0.4 Ml Syringe) 40 mg SUBCUT Q24H [facility] Last Admin: 02/22/22 23:22 Dose: Not Given Documented by: Famotidine (Famotidine 20 Mg Tablet) 20 mg PO BID [facility] Last Admin: 02/23/22 09:24 Dose: 20 mg Documented by: Fluticasone Propionate (Fluticasone Propionate Nasal 16 Gm [place]) 1 spray NOSTRIL-B DAILY PRN PRN Reason: Nasal Congestion Furosemide (Furosemide 40 Mg/4 Ml Vial) 40 mg IVPUSH DAILY [facility]; Protocol Last Admin: 02/23/22 09:23 Dose: 40 mg Documented by: Gabapentin (Gabapentin 100 Mg Capsule) 200 mg PO TID [facility] Last Admin: 02/23/22 09:26 Dose: Not Given Documented by: Glucose (Glucose Gel 15 Gm Gel..Gram.) 15 gm PO Q15M PRN; Protocol PRN Reason: per Hypoglycemia Standing Ord. Insulin Human Lispro (Insulin Lispro 100 Unit/Ml 3 Ml Vial) 0 unit SUBCUT QIDACHS [facility]; Protocol Last Admin: 02/23/22 07:42 Dose: Not Given Documented by: Lidocaine (Lidocaine 4 % Patch Adh..Patch) 1 patch TRANSDERMA DAILY [facility] Last Admin: 02/23/22 10:06 Dose: 1 patch Documented by: Loratadine (Loratadine 10 Mg Tablet) 10 mg PO DAILY [facility] Last Admin: 02/23/22 09:23 Dose: 10 mg Documented by: Melatonin (Melatonin 3 Mg Tablet) 6 mg PO BEDTIME PRN PRN Reason: Insomnia Methadone HCl (Methadone Hcl 20 Mg/2 Ml Oral.Conc) 50 mg PO DAILY [facility] Last Admin: 02/23/22 11:12 Dose: 50 mg Documented by: Montelukast Sodium (Montelukast Sodium 10 Mg Tablet) 10 mg PO BEDTIME [facility] Last Admin: 02/22/22 21:27 Dose: 10 mg Documented by: Oxycodone HCl (Oxycodone Hcl Immed Release 5 Mg Tablet) 5 mg PO Q6H PRN PRN Reason: Pain, Severe (Pain Scale 7-10) Last Admin: 02/22/22 17:26 Dose: 5 mg Documented by: Sacubitril/Valsartan (Sacubitril/Valsartan 1 Tab Tablet) 1 tab PO BID [facility]; Protocol Last Admin: 02/23/22 09:24 Dose: 1 tab Documented by: Senna (Sennosides 8.6 Mg Tablet) 17.2 mg PO BEDTIME PRN PRN Reason: Constipation Sodium Chloride (0.9 % Sodium Chloride Flush 3 Ml Syringe) 3 ml IVFLUSH QSHIFT [facility] Last Admin: 02/23/22 09:23 Dose: 3 ml Documented by: Tamsulosin HCl (Tamsulosin Hcl 0.4 Mg Capsule) 0.4 mg PO DAILY [facility] Last Admin: 02/23/22 09:23 Dose: 0.4 mg Documented by: Zinc Sulfate (Zinc Sulfate 220 Mg Capsule) 220 mg PO DAILY [facility] Last Admin: 02/23/22 09:24 Dose: 220 mg Documented by: Time Spent With Patient Time: Total time spent is greater than 50% in coordination of care (as documented) at patient's floor/unit and/or counseling patient: Progress Note: Quality Stroke Does the patient have a stroke diagnosis?: No Procedures Date of Service Date of Service: 02/23/22
--- NOTE | 2022-02-23 12:23 | PC.NURSE ---
Pt resting in wheelchair. Methadone dose verified and paperwork faxed to pharmacy. Pt given dose per order. Pt with c/o neck pain, lidocaine patch provided per order. sign language interpreter used for care. Questions encouraged and answered. Pt refusing some of his medications see mar. Per provider, pt to be discharged today. Awaiting order at this time. [place]bell and belongings within reach.
--- NOTE | 2022-02-23 13:06 | P.DS_ITS ---
DS: Providers Provider Date of Service: 02/23/22 Date of admission: 02/21/22 22:41 Primary care physician: Ashley Pendleton MD Consults: 02/21/22 22:41 Consult to Cardiology Routine Consulting Provider: Gustavo Mccollum Reason for consultation: chf; chest pain 02/22/22 13:50 Consult to Vascular Surgery Routine Consulting Provider: Stan Vaughn Reason for consultation: pvd/left foot ulcer Has provider been notified: No DS: Diagnosis Discharge Diagnosis (1) Peripheral arterial disease: Status: Acute DS: Summary Hospital Course Hospital Course: from initial hpi: Chief Complaint: Shortness of breath 51-year-old male with a past medical history of hypertension, hyperlipidemia, diabetes,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 Vaughn, history of right BKA, history of diabetic foot infection/osteomyelitis/bacteremia, COPD, opiate dependence on methadone, anemia presented to the hospital today with a chief complaint of chest pain.? Patient reported that he developed chest pain, pressure-like in nature, nonradiating, no associated lightheadedness dizziness or diaphoresis.? Currently resolved at the time of my entry.? Also reported he has shortness of breath which worsens on exertion.? Denies any orthopnea or PND.? Denies any peripheral edema.? Mentions he has been complaint with his home medications.? Denies any fever chills cough or sputum production.? Denies any GI symptoms.? Review of all other systems is negative except mentioned above ER course: Per ER team patient chest pain improved; EKG was nonischemic; on labs noted to have elevated troponin to 110 followed by had an 15; chest x-ray showed mild congestion; cardiology Dr. Mccollum was notified-recommended no heparin drip; continue home Plavix; also suggested IV Lasix.? Admitted to the hospital for further management. hospital course: pateint was admitted for Chest pain, chest pain resolved, troponins plateaued, he was continue on his dual antiplatelet and statin, was thought to be strain and no anticoagulation was recommended. For his acute on chronic systolic CHF he was given IV Lasix and diuresed well. His symptoms resolved and he was no longer short of breath. He will be discharged on his home Bumex. For his diabetes was continue on insulin, for his opiate dependency was continue methadone. For his peripheral vascular disease he was continued on dual antiplatelet statin, he was seen by vascular recommended outpatient follow-up. For COPD was continued on p.r.n. nebs. Time Spent with Patient Time attestation: Total time spent providing and/or coordinating discharge services: Discharge coordination time: Greater than 30 minutes Quality: Safe Use of Opioids Does Pt have an Active Cancer Diagnosis on the Problem List?: No Quality: Stroke Does the patient have a stroke diagnosis?: No Physical Exam Vital Signs: Vital Signs: Last Vital Signs Temp 98.2 F 02/23/22 09:23 Pulse 65 02/23/22 09:23 Resp 18 02/23/22 09:23 BP 100/65 02/23/22 09:23 Pulse Ox 99 02/23/22 09:23 BMI result Body Mass Index 0.0 GENERAL APPEARANCE: in no acute distress, pleasant. NECK: no carotid bruit, no jugular venous distention. +HJR. SKIN: no suspicious lesions, warm and dry. HEART: no murmurs, regular rate and rhythm. LUNGS: clear to auscultation bilaterally. ABDOMEN: soft, nontender. EXTREMITIES: no edema. right amputation. PERIPHERAL PULSES: equal. NEUROLOGIC: No gross deficits, AAO X 3 DS: Data Data Completed and Pending Completed studies during hospitalization [Text1]: Procedures Dilation of Left Anterior Tibial Artery using Drug-Coated Balloon, Percutaneous Approach (11/24/20) Dilation of Left Peroneal Artery using Drug-Coated Balloon, Percutaneous Approach (11/24/20) Dilation of Left Peroneal Artery, Percutaneous Approach (12/30/21) Dilation of Left Popliteal Artery using Drug-Coated Balloon, Percutaneous Approach (11/24/20) Drainage of Chest Wall, Percutaneous Approach, Diagnostic (11/24/20) Drainage of Right Pleural Cavity, Percutaneous Approach (08/31/20) Excision of Left Foot Subcutaneous Tissue and Fascia, Open Approach (02/12/21) Excision of Left Metatarsal, Open Approach (12/30/21) Insertion of Infusion Device into Superior Vena Cava, Percutaneous Approach (02/12/21) Transfusion of Nonautologous Red Blood Cells into Peripheral Vein, Percutaneous Approach (01/02/21) Ultrasonography of Superior Vena Cava, Guidance (02/12/21) Labs on day of discharge: Laboratory Results - last 24 hr 02/22/22 02/22/22 02/23/22 18:53 21:30 07:39 WBC RBC Hgb Hct MCV MCH MCHC RDW Plt Count MPV Absolute Nucleated RBC Nucleated RBC % (auto) Sodium Potassium Chloride Carbon Dioxide Anion Gap BUN Creatinine Estim Creat Clear Calc Estimated GFR POC Glucose 119 H 224 H 114 Random Glucose Calcium B-Natriuretic Peptide 02/23/22 02/23/22 02/23/22 08:09 08:09 08:09 WBC 7.4 RBC 4.75 Hgb 12.4 L Hct 39.2 L MCV 82.5 MCH 26.1 L MCHC 31.6 RDW 15.9 Plt Count 250 MPV 9.5 Absolute Nucleated RBC 0.000 Nucleated RBC % (auto) 0.0 Sodium 136 Potassium 4.1 Chloride 102 Carbon Dioxide 26 Anion Gap 12 BUN 28 H Creatinine 0.90 Estim Creat Clear Calc TNP Estimated GFR > 60 POC Glucose Random Glucose 111 Calcium 9.5 B-Natriuretic Peptide 1213 H Discharge Plan Discharge Patient Disposition: Home, Self-Care Discharge Diagnosis: chf Referrals: lexy lopez [Other] - 1 Week Ashley Pendleton MD [Primary Care Provider] - 1 Week Discharge Medications: Continued albuterol sulfate 2.5 mg /3 mL (0.083 %) Solution For Nebulization 2.5 mg inhalation Q4H PRN (Reason: Shortness Of Breath Or Wheezing) 0RF (DME) lancets Misc MISCELLANEOUS 0RF (DME) blood-glucose meter [FreeStyle [place] Lite] Kit MISCELLANEOUS 0RF (DME) cane Device MISCELLANEOUS 0RF (DME) FreeStyle Lite Strips 0RF (DME) pen needle, diabetic Needle MISCELLANEOUS 0RF methadone 10 mg/mL Concentrate 52 mg PO QAM 0RF Label Comments: DOSE TO BE CONFIRMED WITH CLINIC albuterol sulfate 90 mcg/actuation Hfa Aerosol Inhaler 2 puff INHALATION Q4H PRN (Reason: Shortness Of Breath) 0RF Lantus U-100 Insulin 100 unit/mL Solution 12 unit SUBCUT QPM 0RF Rx Instructions: sig from pharmacy pick-up record says 10 units SQ, confirm with pt/pharmacy cetirizine 10 mg Tablet 10 mg PO DAILY 0RF aspirin 81 mg Tablet,Delayed Release (Dr/Ec) 81 mg PO DAILY 0RF atorvastatin 20 mg Tablet 20 mg PO BEDTIME 0RF Hold Instructions: Resume on 02/12/22. hold while on daptomycin tamsulosin 0.4 mg Capsule 0.4 mg PO DAILY 0RF montelukast 10 mg Tablet 10 mg PO BEDTIME 0RF gabapentin 100 mg Capsule 200 mg PO TID 0RF fluticasone propionate [Flonase Allergy Relief] 50 mcg/actuation [place],Suspension 1 spray INTRANASAL DAILY PRN (Reason: Nasal Congestion) 0RF famotidine 20 mg Tablet 20 mg PO BID 0RF zinc 50 mg Tablet 50 mg PO DAILY 0RF lidocaine 5 % Adhesive Patch,Medicated 1 patch TOPICAL DAILY 0RF Rx Instructions: leave on most painful area for up to 12 hrs insulin aspart U-100 [Novolog Flexpen U-100 Insulin] 100 unit/mL (3 mL) Insulin Pen 5 unit SUBCUT TID 0RF fluticasone propion-salmeterol [Advair Diskus] 500-50 mcg/dose Blister With Device 1 inh INHALATION BID 0RF carvedilol 3.125 mg Tablet 3.125 mg PO BID Qty: 60 0RF Protocol: Hold for SBP/HR < HOLD for SBP < : 90 HOLD for HR < : 60 Rx Instructions: replaces prior dose of 6.25 mg bid Entresto 24-26 mg Tablet 1 tab PO BID Qty: 60 0RF Protocol: Hold for SBP< HOLD for SBP < : 90 Rx Instructions: replaces losartan bumetanide 1 mg Tablet 2 mg PO DAILY Qty: 30 0RF Protocol: Hold for SBP< HOLD for SBP < : 90 clopidogrel 75 mg tablet 1 tab PO QAM 0RF Discharge Orders: Discharge Order (Routine); Ordered 02/23/22 Ordered By: Steven Brown Diet: advance to usual diet Activity on Discharge: As tolerated Stand Alone Forms: Patient Portal Discharge page Care Plan Goals: recovery Health Concerns: chf Plan of Treatment: avoid salt, excess fluid Assessment: see above
--- NOTE | 2022-02-23 13:12 | MHC.CM.PN ---
pt dcd today altranis notified of dc
== END 2022-02-23 14:12 | disposition home health service (06) | DRG 194 ==
LOC: HO.ED 23:19 → HO.EDOVER 23:25
PROVIDERS: Emergency Medicine; Internal Medicine; Nurse Practitioner Family; Admitting Provider Hospitalist; Emergency Provider Emergency Medicine; PCP Family Medicine; Visit Provider Internal Medicine
DX: I50.33 Acute on chronic diastolic (congestive) heart failure (principal); E11.42 Type 2 diabetes mellitus with diabetic polyneuropathy; E11.51 Type 2 diabetes mellitus with diabetic peripheral angiopathy without gangrene; F11.20 Opioid dependence, uncomplicated; E78.5 Hyperlipidemia, unspecified; J44.9 Chronic obstructive pulmonary disease, unspecified; Z20.822 Contact with and (suspected) exposure to COVID-19; Z89.511 Acquired absence of right leg below knee; Z88.2 Allergy status to sulfonamides; Z79.02 Long term (current) use of antithrombotics/antiplatelets; Z79.4 Long term (current) use of insulin; Z79.82 Long term (current) use of aspirin; Z79.51 Long term (current) use of inhaled steroids; Z79.899 Other long term (current) drug therapy
CPT/HCPCS: 36415; 71045; 80048; 80053; 82550; 82947; 83880; 84484; 85025; 85027; 87635; 93005; 96374; 99285; J1650; J1940

== ENCOUNTER 2022-03-01 10:09 | Emergency (ER) | payer MEDICAID, SELFPAY ==
[2022-03-01 10:41] VITALS: BP 140/100; PULSE 98; O2SAT 98
== END 2022-03-01 10:43 | disposition left against medical advice (07) ==
PROVIDERS: Emergency Provider Emergency Medicine; PCP Family Medicine
DX: M79.604 Pain in right leg (principal); M79.605 Pain in left leg

== ENCOUNTER 2022-03-08 11:42 | Inpatient (IN) | payer MEDICAID, SELFPAY ==
[2022-03-08] VITALS (9 sets, daily range): BP systolic 120–149; BP diastolic 81–101; PULSE 79–115; RESP 12–20; TEMP 36.8–37.1; O2SAT 94–100; BMI 34.7
--- NOTE | ~2022-03-08 | XR_ITS ---
EXAMINATION: XR TOES, LEFT CLINICAL INFORMATION: Great toe evaluate for osteomyelitis COMPARISON: Radiographs 12/30/2021 TECHNIQUE: 2 views of the left great toe were obtained. Evaluation is quite limited secondary to patient cooperation with the study FINDINGS: On the oblique AP radiograph there is further destructive, erosive change of the first toe with erosion of the lateral base of the distal phalanx of the first toe as well as extensive erosive/resorptive change of much of the middle and distal third of the proximal phalanx. There is lucency within the second metatarsal head as well with loss of definition of the cortex. Remaining osseous structures are intact. There is soft tissue edema of the forefoot.. XR/XR toe LT min 2V IMPRESSION: Limited radiographs of the left great toe with destructive, erosive changes of the second toe. Loss of definition of the inferior cortex of the second metatarsal head. This may raise concern for osteomyelitis as well.
--- NOTE | ~2022-03-08 | XR_ITS ---
EXAMINATION: XR CHEST CLINICAL INFORMATION: Dyspnea COMPARISON: Prior chest radiograph, most recently 02/21/2022 TECHNIQUE: Frontal view of the chest was obtained. FINDINGS: There is stable cardiac enlargement. Central vascular structures are prominent and there is increasing interstitial opacity with thickening of the minor fissure. Overall slightly increased 1 compared with the prior study. No focal consolidation. No pleural effusion or pneumothorax. Structures of the chest wall are unchanged. XR/XR chest 1V IMPRESSION: Pulmonary vascular congestion and increasing interstitial opacities suggesting interstitial edema.
--- NOTE | 2022-03-08 11:55 | ECG_ITS ---
Test Reason : chest pain Blood Pressure : / mmHG Vent. Rate : 097 BPM Atrial Rate : 097 BPM P-R Int : 180 ms QRS Dur : 112 ms QT Int : 366 ms P-R-T Axes : 042 -35 123 degrees QTc Int : 464 ms Normal sinus rhythm Left axis deviation Minimal voltage criteria for LVH, may be normal variant ( [place] product ) ST & T wave abnormality, consider lateral ischemia Prolonged QT Abnormal ECG When compared with ECG of 21-FEB-2022 18:35, No significant change was found Referred By: Bhavani Parks Electronically Signed By:LACEY HALEY
--- NOTE | 2022-03-08 11:57 | ED_ITS ---
HPI - SOB/Dyspnea General Chief Complaint: Dyspnea Stated Complaint: SOB, IN NO DISTRESS PER EMS Time Seen by Provider: 03/08/22 11:45 Source: patient Mode of arrival: EMS Limitations: no limitations History of Present Illness HPI Narrative: also noted L great toe is purulent and he thinks he can see the bone MD elicited complaint: shortness of breath, cough and chest pain Pertinent past history: COPD, asthma and congestive heart failure Onset (ago): week(s) (1 week but worse since yesterday ) Context: medication noncompliance (states he has medications but doesn't know how to take them no one helps me. has not taken them since he left the hospital.) Timing: constant Severity: moderate Exacerbating factors: lying flat, exertion and coughing Relieving factors: rest Known history of: COPD, asthma and congestive heart failure Associated symptoms: chest pain, cough, wheezing and sputum production Treatment prior to arrival: none Related Data Home Medications Medication Instructions Recorded Confirmed No Known Home Meds 03/08/22 03/08/22 Allergies Allergy/AdvReac Type Severity Reaction Status Date / Time ertapenem Allergy Intermediate Hives Verified 02/21/22 18:40 vancomycin [VANCOMYCIN] Allergy Intermediate HIVES Verified 02/21/22 18:40 Chocolate Allergy Unknown Rash Verified 02/21/22 18:40 ciprofloxacin [From CIPRO] Allergy Unknown SWELLING Verified 02/21/22 18:40 hydrocortisone [Cipro HC] Allergy Unknown Unknown Verified 02/21/22 18:40 sulfamethoxazole Allergy Unknown rash Verified 02/21/22 18:40 [From BACTRIM] trimethoprim [From BACTRIM] Allergy Unknown rash Verified 02/21/22 18:40 turkey [TURKEY] Allergy Unknown RASH Verified 02/21/22 18:40 Review of Systems Review of Systems: Constitutional : No Fever, No Chills ENT/Mouth : No sore throat, No Rhinorrhea, No Swallowing Difficulty Eyes: No Eye Pain, No Swelling, No Redness Cardiovascular : pos Chest Pain, positive SOB, No Orthopnea, positive Edema Respiratory : pos Cough, pos Sputum, pos Wheezing, positive dyspnea Gastrointestinal : No Nausea, No Vomiting, No Diarrhea, No abdominal Pain, No Hematochezia, No Melena Genitourinary : No Dysuria, No Urinary Frequency, No Hematuria Musculoskeletal : No joint pain, No Myalgias Skin : pos Skin Lesions, No rash, pos open wound on left great toe Neuro : No Weakness, No Numbness, No Dizziness, No Headache Psych : No Anxiety/Panic, No Depression Heme/Lymph: No Bruising, No Lymphadenopathy Endocrine : No Polyuria, No Polydipsia All other systems reviewed and are negative [facility] Past Medical History Attestation statement: The following information was validated with the patient. Medical History Abscess or cellulitis of foot Acute on chronic anemia Acute on chronic combined systolic and diastolic congestive heart failure Acute on chronic HFrEF (heart failure with reduced ejection fraction) Acute respiratory failure with hypoxia Asthma Bipolar 1 disorder BPH (benign prostatic hyperplasia) CHF exacerbation Cholelithiasis Closed wedge compression fracture of T9 vertebra COPD (chronic obstructive pulmonary disease) Diabetes mellitus Diabetes mellitus, type 2 Elevated troponin GERD (gastroesophageal reflux disease) Hyperlipidemia Ischemic cardiomyopathy Lymphadenopathy Opiate abuse, continuous Osteomyelitis Peripheral arterial disease Peripheral neuropathy Peripheral vascular disease Substance abuse Tracheomalacia, acquired Surgical History History of amputation History of laminectomy History of transurethral resection of prostate Hx of BKA Family History Family History Father Chronic mental illness Hypertension Asthma Stroke Mother Asthma Diabetes Coronary artery disease Social History Social History Household Members: None Housing: Apartment Housing Other:: IN A LITTLE ROOM Do you presently have visiting nurse or other home services: Yes Alcohol intake: never Patient Tobacco Use Status: Never used Tobacco e-Cigarette/Vaping Use: Never Used Second Hand Smoke Exposure: No Substance Use Type: Marijuana Advance Directives: Yes Advance Directives on File: Yes Advance Directives Date on File: 11/24/20 service: No Current occupational status: disabled Physical Exam Vital Signs: Vital Signs: Last Vital Signs Temp 98.3 F 03/08/22 11:50 Pulse 99 03/08/22 12:09 Resp 18 03/08/22 12:09 BP 149/91 H 03/08/22 11:50 Pulse Ox 99 03/08/22 11:50 BMI result Body Mass Index 34.7 Appearance: Alert. Oriented X3. No acute distress. Eyes: Pupils equal, round and reactive to light. ENT: Pharynx normal. Neck: Normal inspection. Neck supple. CVS: Normal heart rate and rhythm. Pulses normal. Respiratory: No respiratory distress. Breath sounds rales and wheezes noted on exam Abdomen: Soft and non-tender. Skin: Skin warm and dry. pale skin color. Normal skin turgor. Extremities: 3+ pitting edema L leg. L great toe open yellow draining wound noted, foot is red and swollen Neuro: Oriented X 3. No motor deficit. No sensory deficit. Course Course Course Narrative: signed out to Dr. Anderson pending further workup lactic acidosis due to albuterol use and not infection or severe sepsis - prior lactic acidosis elevations in the past BNP elevated IV lasix ordered trop at baseline MDM - SOB/Dyspnea MDM Narrative Medical decision making narrative: 51 yo female with hx of CHF EF 15%, DM with chronic L foot ulcer, chronic chest pain, asthma, PAD s/p left peroneal angio 12/2021 comes in stating for the last week his breathing has been bad and last night he couldn't sleep. He has a productive cough and wheezing. He notes he has all of his medications but no one helps him so he doesn't take them. His nebulizer machine also doesn't work. At this time likely CHF/COPD exacerbation - nebs, steroids, lasix ordered. His L great toe appears infected again - xrays and IV cefepime ordered suspect acute on chronic osteo - anticipate admission Lab Data Result diagrams: 03/08/22 12:38 03/08/22 12:38 Labs: Lab Results 03/08/22 03/08/22 03/08/22 Range/Units 12:38 12:38 12:38 WBC 9.9 (4.8-10.8) X10*3/uL RBC 4.65 (4.60-5.80) X10*6/uL Hgb 12.2 L (14.0-18.0) g/dl Hct 38.6 L (42.0-52.0) % MCV 83.0 (80.0-98.0) fL MCH 26.2 L (27.0-33.0) pg MCHC 31.6 (31.0-36.0) g/dl RDW 16.4 H (11.0-16.0) % Plt Count 238 (160-400) X10*3/uL MPV 10.3 (9.4-12.4) fL Immature Gran % (Auto) 0.4 (0.0-0.4) % Neut % (Auto) 79.0 H (45-73) % Lymph % (Auto) 8.7 L (20-40) % Coke % (Auto) 11.5 H (2-11) % Eos % (Auto) 0.2 (0-4) % Baso % (Auto) 0.2 (0-2) % Lymph # (Auto) 0.9 L (1.2-4.9) X10*3/uL [place] # (Auto) 1.1 (0.1-1.2) X10*3/uL Eos # (Auto) 0.0 (0.0-0.4) X10*3/uL Baso # (Auto) 0.0 (0.0-0.2) X10*3/uL Abs Immat Gran (auto) 0.04 H (0.00-0.03) X10*3/uL Absolute Neuts (auto) 7.8 (2.0-8.3) x10*3/uL Absolute Nucleated RBC 0.000 (0.0-0.012) X10*3/uL Nucleated RBC % (auto) 0.0 (0.0-0.2) /100WBC PT (9.9-13.0) SEC INR (0.9-1.1) APTT (24.1-38.0) SEC Sodium 132 L (135-145) mmol/L Potassium 4.8 (3.3-5.1) mmol/L Chloride 100 (96-108) mmol/L Carbon Dioxide 21 L (22-29) mmol/L Anion Gap 16 (12-20) BUN 10 D (9-16) mg/dL Creatinine 0.83 (0.5-1.4) mg/dL Estim Creat Clear Calc 90.7 Estimated GFR > 60 Random Glucose 236 H D (60-115) mg/dL Lactic Acid (0.5-2.0) mmol/L Calcium 9.5 (8.4-10.2) mg/dL Magnesium 1.5 L (1.6-2.6) mg/dL Total Bilirubin 1.3 H (0.0-1.0) mg/dL Direct Bilirubin 0.7 H (0.0-0.5) mg/dL AST 22 (5-37) U/L ALT 10 (0-40) U/L Alkaline Phosphatase 99 (39-117) U/L Troponin I High Sens (<3.5-35.0) ng/L C-Reactive Protein 4.67 H (< or = 0.50) mg/dL B-Natriuretic Peptide (<100) pg/mL Total Protein 7.2 (6.5-8.0) g/dL Albumin 3.5 (3.5-5.0) g/dL Lipase 4 L (8-78) U/L COVID-19 (JAMILA) Negative (Negative) COVID-19 Clin Com See Note 03/08/22 03/08/22 03/08/22 Range/Units 12:38 12:38 12:38 WBC (4.8-10.8) X10*3/uL RBC (4.60-5.80) X10*6/uL Hgb (14.0-18.0) g/dl Hct (42.0-52.0) % MCV (80.0-98.0) fL MCH (27.0-33.0) pg MCHC (31.0-36.0) g/dl RDW (11.0-16.0) % Plt Count (160-400) X10*3/uL MPV (9.4-12.4) fL Immature Gran % (Auto) (0.0-0.4) % Neut % (Auto) (45-73) % Lymph % (Auto) (20-40) % Coke % (Auto) (2-11) % Eos % (Auto) (0-4) % Baso % (Auto) (0-2) % Lymph # (Auto) (1.2-4.9) X10*3/uL [place] # (Auto) (0.1-1.2) X10*3/uL Eos # (Auto) (0.0-0.4) X10*3/uL Baso # (Auto) (0.0-0.2) X10*3/uL Abs Immat Gran (auto) (0.00-0.03) X10*3/uL Absolute Neuts (auto) (2.0-8.3) x10*3/uL Absolute Nucleated RBC (0.0-0.012) X10*3/uL Nucleated RBC % (auto) (0.0-0.2) /100WBC PT 16.3 H (9.9-13.0) SEC INR 1.4 H (0.9-1.1) APTT 35.0 (24.1-38.0) SEC Sodium (135-145) mmol/L Potassium (3.3-5.1) mmol/L Chloride (96-108) mmol/L Carbon Dioxide (22-29) mmol/L Anion Gap (12-20) BUN (9-16) mg/dL Creatinine (0.5-1.4) mg/dL Estim Creat Clear Calc Estimated GFR Random Glucose (60-115) mg/dL Lactic Acid 4.1 H* (0.5-2.0) mmol/L Calcium (8.4-10.2) mg/dL Magnesium (1.6-2.6) mg/dL Total Bilirubin (0.0-1.0) mg/dL Direct Bilirubin (0.0-0.5) mg/dL AST (5-37) U/L ALT (0-40) U/L Alkaline Phosphatase (39-117) U/L Troponin I High Sens 116.6 H* (<3.5-35.0) ng/L C-Reactive Protein (< or = 0.50) mg/dL B-Natriuretic Peptide 3649 H (<100) pg/mL Total Protein (6.5-8.0) g/dL Albumin (3.5-5.0) g/dL Lipase (8-78) U/L COVID-19 (JAMILA) (Negative) COVID-19 Clin Com ECG Data Attestation: I personally reviewed and interpreted this ECG as follows: ECG interpretation date: 03/08/22 ECG interpretation time: 13:01 Interpretation: Rate: 97 Rhythm: NSR [place]: left, LVH Normal P waves. Normal ADELA. Normal QRS complex. ST T wave : nonspecific no ARCHANA qTC: normal prior studies: no acute ischemia The study has been interpreted contemporaneously by me. . Procedures EJ/Peripheral Line Neck L: Time Out Performed: Yes Skin Cleansed in Sterile Fashion: Yes Size (gauge): 20 IV Secured and Dressing Applied: Yes Patient Tolerated Procedure: well and no complications Discharge Plan Discharge Clinical Impression: Acute dyspnea, Acidosis, lactic, Elevated troponin Open wound of toe Qualifiers: Encounter type: initial encounter Qualified Code(s): S91.109A - Unspecified open wound of unspecified toe(s) without damage to nail, initial encounter CHF (congestive heart failure) Qualifiers: Heart failure type: unspecified Heart failure chronicity: acute on chronic Qualified Code(s): I50.9 - Heart failure, unspecified Patient Disposition: Admitted As Inpatient
[2022-03-08] MEDS: Albuterol Sulfate (0.083%) 2.5 MG/3 ML VIAL.NEB INHALE (12:09)
[2022-03-08] MEDS: Furosemide 40 MG/4 ML VIAL IVPUSH (12:43)
[2022-03-08 12:46] LABS: MANUAL DIFF FLAG NO
[2022-03-08 12:54] LABS: INTERNATIONAL NORM RATIO 1.4 (0.9-1.1); Prothrombin Time 16.3 SEC (9.9-13.0)
[2022-03-08 13:03] LABS: Basophils Percent Auto 0.2 % (0-2); Eosinophils Percent Auto 0.2 % (0-4); Hematocrit 38.6 % (42.0-52.0); Hemoglobin 12.2 g/dl (14.0-18.0); Imm Gran Abs Auto 0.04 X10*3/uL (0.00-0.03); Imm Gran Pct Auto 0.4 % (0.0-0.4); Lymphocytes Absolute Auto 0.9 X10*3/uL (1.2-4.9); Lymphocytes Percent Auto 8.7 % (20-40); Mean Corpuscular HGB Conc 31.6 g/dl (31.0-36.0); Mean Corpuscular Hemoglobin 26.2 pg (27.0-33.0); Mean Platelet Volume 10.3 fL (9.4-12.4); Monocytes Absolute Auto 1.1 X10*3/uL (0.1-1.2); Monocytes Percent Auto 11.5 % (2-11); Neutrophils Absolute Auto 7.8 x10*3/uL (2.0-8.3); Platelet Count 238 X10*3/uL (160-400); Red Blood Count 4.65 X10*6/uL (4.60-5.80); Red Cell Distribution Width 16.4 % (11.0-16.0); White Blood Count 9.9 X10*3/uL (4.8-10.8)
--- NOTE | 2022-03-08 13:08 | PHA.MEDREC ---
Addendum entered by Benjamin Torres, [facility] 03/08/22 17:49: Pt at the time of previous inquiry was extremely lethargic, followed up with hourly sign language interpreter and at first pt said he did not take anything, but upon further questioning said he was suppose to take medications but due to transportation issues he no longer knows what he is suppose to take. Med rec was done from med history as well as some patient input Original Note: Pharmacy Consult ? Medication Reconciliation Pharmacy has completed the medication reconciliation. Pt does not take any home medications. Connie James, DamiD
[2022-03-08 13:11] LABS: Alanine Aminotransferase 10 U/L (0-40); Albumin Level 3.5 g/dL (3.5-5.0); Alkaline Phosphatase 99 U/L (39-117); Anion Gap 16 (12-20); Aspartate Amino Transferase 22 U/L (5-37); Bilirubin Direct 0.7 mg/dL (0.0-0.5); Bilirubin Total 1.3 mg/dL (0.0-1.0); Blood Urea Nitrogen 10 mg/dL (9-16); C Reactive Protein 4.67 mg/dL (< or = 0.50); Calcium 9.5 mg/dL (8.4-10.2); Carbon Dioxide 21 mmol/L (22-29); Chloride 100 mmol/L (96-108); Creatinine Clr Calc Pharmacy 90.7; Estimated Glomerular Filt Rate > 60; Glucose Random 236 mg/dL (60-115); Lipase 4 U/L (8-78); Magnesium 1.5 mg/dL (1.6-2.6); Potassium 4.8 mmol/L (3.3-5.1); Sodium 132 mmol/L (135-145); Total Protein 7.2 g/dL (6.5-8.0)
[2022-03-08 13:13] LABS: COVID-19 Test Negative (Negative); IDNOW Serial# 16C4AD1C
[2022-03-08 13:16] LABS: Lactic Acid 4.1 mmol/L (0.5-2.0)
[2022-03-08 13:27] LABS: B Type Natriuretic Peptide 3649 pg/mL (<100)
[2022-03-08 13:28] LABS: Troponin-I High Sensitivity 116.6 ng/L (<3.5-35.0)
[2022-03-08] MEDS: methylPREDNISolone Sod Succ 125 MG/2 ML VIAL 60 MG IVPUSH (13:58)
[2022-03-08] MEDS: cefEPime HCl 1 GM in 0.9 % Sodium Chloride 50 ML IV (14:09)
[2022-03-08 14:14] LABS: Appearance Urine CLEAR; Color Urine YELLOW; Glucose Urine UA NEG (NEG); Leukocyte Esterase Urine NEG (NEG); Nitrite Urine POS (NEG); Specific Gravity - Urine 1.025 (1.005-1.025); UACC Culture Trigger YES; Urine Blood 2+ (NEG); Urine Ketones NEG (NEG); Urine Protein 3+ MG/DL (NEG-TRACE)
--- NOTE | 2022-03-08 14:18 | PC.NURSE ---
pt is a/o x 3 no sob/nae noted skin pink warm dry speaks in full sentences. lungs - sree upper lobes -cta, sree lower lobes diminished. pt aware of plan of care for admission to hosp.
[2022-03-08 14:22] LABS: Squamous Epithelial Cell Urine 2+ /LPF; WBC Urine 0-2 /HPF (0-4)
[2022-03-08 14:23] LABS: Bacteria Urine 1+ /LPF
--- NOTE | 2022-03-08 14:40 | PC.NURSE ---
dr. medina at bedside, pt aware of plan of care for admission to hosp.
[2022-03-08 14:58] LABS: Erythrocyte Sedimentation Rate 42 MM/HR (0-15)
[2022-03-08 15:03] LABS: Reflex Lactate? Lactic Acid Added
--- NOTE | 2022-03-08 15:09 | P.HPHOSP_ITS ---
History of Present Illness Date of Service: 03/08/22 Chief Complaint: Shortness of breath, worsening toe wound A 51 years old male with PMH of diabetes, PAD post amputation RLE, CHF, among others who presents to the hospital by EMS for worsening shortness of breath, edema and own his right big toe. The patient reported that for the last week or so he has been noticing more difficulty breathing and increase coughing associated with 1 episode of vomiting last night. Denies fever, chills, palpitation, change in bowel habit or diarrhea. He does also report worsening of the swelling and wound in his right lower extremity as the PICC toe want is more open and he can see the bone through it with no significant drainage. In the emergency CXR was consistent with fluid overload along with elevated BNP , lactic acidosis and low magnesium with question over possible UTI. Admitted for further evaluation and treatment. Review of Systems Review of Systems: No fever, chills but feels a lies weakness No chest pain, palpitation but has increased edema in his lower extremity Reporting shortness of breath, coughing and feeling dyspneic No abdominal pain, nausea or vomiting No reported urinary symptoms Reported worsening wound in his big toe. [facility] Medical History Abscess or cellulitis of foot Acute on chronic anemia Acute on chronic combined systolic and diastolic congestive heart failure Acute on chronic HFrEF (heart failure with reduced ejection fraction) Acute respiratory failure with hypoxia Asthma Bipolar 1 disorder BPH (benign prostatic hyperplasia) CHF exacerbation Cholelithiasis Closed wedge compression fracture of T9 vertebra COPD (chronic obstructive pulmonary disease) Diabetes mellitus Diabetes mellitus, type 2 Elevated troponin GERD (gastroesophageal reflux disease) Hyperlipidemia Ischemic cardiomyopathy Lymphadenopathy Opiate abuse, continuous Osteomyelitis Peripheral arterial disease Peripheral neuropathy Peripheral vascular disease Substance abuse Tracheomalacia, acquired Family History Father Chronic mental illness Hypertension Asthma Stroke Mother Asthma Diabetes Coronary artery disease Surgical History History of amputation History of laminectomy History of transurethral resection of prostate Hx of BKA Social History Household Members: None Housing: Apartment Housing Other:: IN A LITTLE ROOM Do you presently have visiting nurse or other home services: Yes Alcohol intake: never Patient Tobacco Use Status: Never used Tobacco e-Cigarette/Vaping Use: Never Used Second Hand Smoke Exposure: No Use of substances other than those prescribed or required for medical reasons: No Substance Use Type: Marijuana Advance Directives: Yes Advance Directives on File: Yes Advance Directives Date on File: 11/24/20 service: No Current occupational status: disabled Meds Allergies Allergy/AdvReac Type Severity Reaction Status Date / Time ertapenem Allergy Intermediate Hives Verified 02/21/22 18:40 vancomycin [VANCOMYCIN] Allergy Intermediate HIVES Verified 02/21/22 18:40 Chocolate Allergy Unknown Rash Verified 02/21/22 18:40 ciprofloxacin [From CIPRO] Allergy Unknown SWELLING Verified 02/21/22 18:40 hydrocortisone [Cipro HC] Allergy Unknown Unknown Verified 02/21/22 18:40 sulfamethoxazole Allergy Unknown rash Verified 02/21/22 18:40 [From BACTRIM] trimethoprim [From BACTRIM] Allergy Unknown rash Verified 02/21/22 18:40 turkey [TURKEY] Allergy Unknown RASH Verified 02/21/22 18:40 Active Medications: Current Medications Acetaminophen (Acetaminophen 325 Mg Tablet) 650 mg PO Q6H PRN PRN Reason: Pain, Mild (Pain Scale 1-3) Furosemide (Furosemide 40 Mg/4 Ml Vial) 40 mg IVPUSH DAILY [facility]; Protocol Heparin Sodium (Porcine) (Heparin Sodium,Porcine 5,000 Unit/Ml Vial) 5,000 unit SUBCUT Q8H [facility] Ondansetron HCl (Ondansetron Hcl 4 Mg/2 Ml Vial) 4 mg IVPUSH Q8H PRN PRN Reason: Nausea and Vomiting Pharmacy Consult (Consult Rx Perform Med Rec) 1 each MISCELLANE ONCE PRN PRN Reason: Consult order Pharmacy Consult (Consult Rx Vancomycin Dosing) 1 each MISCELLANE DAILY PRN PRN Reason: Consult order Sodium Chloride (0.9 % Sodium Chloride Flush 3 Ml Syringe) 3 ml IVFLUSH QSHIFT [facility] Home Medications Medication Instructions Recorded Confirmed Last Taken Type No Known Home Meds 03/08/22 03/08/22 Unknown History Physical Exam Vital Signs and Narrative: Vital Signs: Last Vital Signs Temp 98.7 F 03/08/22 13:40 Pulse 94 03/08/22 13:40 Resp 14 03/08/22 13:40 BP 122/85 03/08/22 13:40 Pulse Ox 95 03/08/22 13:40 BMI result Body Mass Index 34.7 Const: Other: Constitutional : Alert, oriented, not in distress Neck : Normal inspection, Supple Cardiovascular : RRR, no JVP, +1 lower extremity edema Respiratory : fair bilateral air entry, base of 1 bilateral more on the left crackles, wheezes or rhonchi Gastrointestinal: soft, lax, Normal bowel sounds, Non tender Skin : Warm, Dry Extremities, left below-knee amputation, right big toe open wound in the dorsal side, bone can be visualized by opening the wound, no drainage but mild erythema. Neurological : Alert & oriented x3, No focal deficit , CN 2-12 within normal Results Labs CBC and Chem 7: 03/08/22 12:38 03/08/22 12:38 Labs: Laboratory Results - last 24 hr 03/08/22 03/08/22 03/08/22 12:38 12:38 12:38 MCV 83.0 MCH 26.2 L MCHC 31.6 RDW 16.4 H Plt Count 238 MPV 10.3 Immature Gran % (Auto) 0.4 Neut % (Auto) 79.0 H Lymph % (Auto) 8.7 L [place] % (Auto) 11.5 H Eos % (Auto) 0.2 Baso % (Auto) 0.2 Lymph # (Auto) 0.9 L [place] # (Auto) 1.1 Eos # (Auto) 0.0 Baso # (Auto) 0.0 Abs Immat Gran (auto) 0.04 H Absolute Neuts (auto) 7.8 Absolute Nucleated RBC 0.000 Nucleated RBC % (auto) 0.0 ESR PT INR APTT Anion Gap 16 Estim Creat Clear Calc 90.7 Estimated GFR > 60 Random Glucose 236 H D Lactic Acid Calcium 9.5 Magnesium 1.5 L Total Bilirubin 1.3 H Direct Bilirubin 0.7 H AST 22 ALT 10 Alkaline Phosphatase 99 Troponin I High Sens C-Reactive Protein 4.67 H B-Natriuretic Peptide Total Protein 7.2 Albumin 3.5 Lipase 4 L Urine Color Urine Appearance Urine pH Ur Specific [place] Urine Protein Urine Glucose (UA) Urine Ketones Urine Blood Urine Nitrite Ur Leukocyte Esterase Urine RBC Urine WBC Ur Squamous Epith Cells Urine Bacteria COVID-19 (JAMILA) Negative COVID-19 Clin Com See Note 03/08/22 03/08/2203/08/22 12:38 12:38 12:38 MCV MCH MCHC RDW Plt Count MPV Immature Gran % (Auto) Neut % (Auto) Lymph % (Auto) [place] % (Auto) Eos % (Auto) Baso % (Auto) Lymph # (Auto) [place] # (Auto) Eos # (Auto) Baso # (Auto) Abs Immat Gran (auto) Absolute Neuts (auto) Absolute Nucleated RBC Nucleated RBC % (auto) ESR PT 16.3 H INR 1.4 H APTT 35.0 Anion Gap Estim Creat Clear Calc Estimated GFR Random Glucose Lactic Acid 4.1 H* Calcium Magnesium Total Bilirubin Direct Bilirubin AST ALT Alkaline Phosphatase Troponin I High Sens 116.6 H* C-Reactive Protein B-Natriuretic Peptide 3649 H Total Protein Albumin Lipase Urine Color Urine Appearance Urine pH Ur Specific [place] Urine Protein Urine Glucose (UA) Urine Ketones Urine Blood Urine Nitrite Ur Leukocyte Esterase Urine RBC Urine WBC Ur Squamous Epith Cells Urine Bacteria COVID-19 (JAMILA) COVID-19 [employer] 03/08/22 03/08/22 13:56 14:08 MCV MCH MCHC RDW Plt Count MPV Immature Gran % (Auto) Neut % (Auto) Lymph % (Auto) [place] % (Auto) Eos % (Auto) Baso % (Auto) Lymph # (Auto) [place] # (Auto) Eos # (Auto) Baso # (Auto) Abs Immat Gran (auto) Absolute Neuts (auto) Absolute Nucleated RBC Nucleated RBC % (auto) ESR 42 H PT INR APTT Anion Gap Estim Creat Clear Calc Estimated GFR Random Glucose Lactic Acid Calcium Magnesium Total Bilirubin Direct Bilirubin AST ALT Alkaline Phosphatase Troponin I High Sens C-Reactive Protein B-Natriuretic Peptide Total Protein Albumin Lipase Urine Color YELLOW Urine Appearance CLEAR Urine pH 6.0 Ur Specific [place] 1.025 Urine Protein 3+ H Urine Glucose (UA) NEG Urine Ketones NEG Urine Blood 2+ H Urine Nitrite POS H Ur Leukocyte Esterase NEG Urine RBC 15-29 H Urine WBC 0-2 Ur Squamous Epith Cells 2+ Urine Bacteria 1+ COVID-19 (JAMILA) COVID-19 [employer] Assessment and Plan (1) Acute dyspnea: Status: Acute (2) Open wound of toe: Qualifiers: Encounter type: initial encounter Qualified Code(s): S91.109A - Unspecified open wound of unspecified toe(s) without damage to nail, initial encounter Status: Acute (3) Acidosis, lactic: Status: Acute (4) Elevated troponin: Status: Acute (5) Diabetic foot ulcer with osteomyelitis: Status: Acute (6) Peripheral arterial disease: Status: Acute (7) Hypomagnesemia: Status: Acute Plan A 51 years old male with PMH of diabetes, PAD post amputation RLE, CHF, among others who presents to the hospital by EMS for worsening shortness of breath, edema and own his right big toe. Diastolic CHF exacerbation Elevated BNP, evidence on CXR and edema Start IV Lasix next Lyme enter intake and output Diabetic foot open wound with osteomyelitis Not septic Start vancomycin IV Get ID evaluation Blood culture sent Lactic acidosis Likely secondary to infection Hold on IV fluid To repeat Hypomagnesemia Replacement given, follow Elevated troponin No chest pain or EKG changes suggest ACS Chronically elevated around the same number from previous admissions History of opiate dependence Patient on methadone.? History of peripheral vascular disease ? Continue home aspirin statin, Plavix. History of COPD/Asthma Shin p.r.n. Patient asking for nebulizer machine at time of discharge DVT PPX Heparin The patient will need to overnight hospital stay for evaluation and treatment of fluid overload and worsening want in his right foot to prevent possible sepsis given his high chance of decompensation. Quality Stroke Does the patient have a stroke diagnosis?: No VTE Prior VTE?: No VTE Risk Level:: Medical - moderate - high VTE Device Contraindication: Treatment Not Indicated VTE Drug Contraindication: N/A - Med Ordered
[2022-03-08] MEDS: 0.9 % Sodium Chloride Flush 3 ML SYRINGE IVFLUSH (15:47)
[2022-03-08 16:17] LABS: ~Lactic Acid-LAB USE ONLY 2.5 mmol/L (0.5-2.0)
[2022-03-08] MEDS: Doxycycline Hyclate 100 MG in 0.9 % Sodium Chloride 250 ML 166.67 MG IV (16:32)
[2022-03-08 17:50] LABS: Reflex Lactate? 2 Y
[2022-03-08 18:01] LABS: Glucose, Whole Blood 189 mg/dL (60-115)
[2022-03-08] MEDS: Clopidogrel Bisulfate 75 MG TABLET PO (19:48)
[2022-03-08] MEDS: Aspirin Enteric Coated 81 MG TABLET.DR PO (19:48)
--- NOTE | 2022-03-08 20:31 | PC.NURSE ---
Addendum entered by Micaela Seth 03/09/22 01:56: report given to MARJAN Bennett Original Note: Report received from MARJAN Gallo. pt is alert and oriented. resting in bed. denies any chest pain at this moment. denies any sob. pt on continuos cardiac monitoring.
[2022-03-08] MEDS: carvediloL 6.25 MG TABLET PO (21:00)
[2022-03-08] MEDS: Montelukast Sodium 10 MG TABLET PO (21:00)
[2022-03-08] MEDS: Atorvastatin Calcium 20 MG TABLET PO (21:00)
[2022-03-08] MEDS: Tamsulosin HCL 0.4 MG CAPSULE PO (21:00)
[2022-03-08] MEDS: Famotidine 20 MG TABLET PO (21:00)
--- NOTE | 2022-03-08 22:43 | MHC.CM.PN ---
CM attempted to meet with admitted patient, but pt is sleeping. Will attempt to meet for d/c planning when awake. CM to follow for d/c needs.
[2022-03-09 02:24] VITALS: BP 108/81; PULSE 88; RESP 18; TEMP 36.5; O2SAT 100
[2022-03-09] MEDS: Doxycycline Hyclate 100 MG in 0.9 % Sodium Chloride 250 ML 166.67 MG IV (04:13)
[2022-03-09 07:19] LABS: Hemoglobin 12.3 g/dl (14.0-18.0); Mean Corpuscular HGB Conc 32.4 g/dl (31.0-36.0); Mean Corpuscular Hemoglobin 26.2 pg (27.0-33.0); Mean Platelet Volume 10.6 fL (9.4-12.4); Platelet Count 206 X10*3/uL (160-400); Red Blood Count 4.69 X10*6/uL (4.60-5.80); Red Cell Distribution Width 16.3 % (11.0-16.0)
[2022-03-09 07:21] LABS: Glucose, Whole Blood 280 mg/dL (60-115)
[2022-03-09 07:43] LABS: Anion Gap 13 (12-20); Carbon Dioxide 23 mmol/L (22-29); Chloride 97 mmol/L (96-108); Creatinine Clr Calc Pharmacy 80.1; Estimated Glomerular Filt Rate > 60; Glucose Random 287 mg/dL (60-115); Potassium 4.6 mmol/L (3.3-5.1); Sodium 128 mmol/L (135-145)
[2022-03-09 07:52] LABS: Blood Urea Nitrogen 16 mg/dL (9-16)
[2022-03-09 08:00] VITALS: BP 146/79; PULSE 73; RESP 18; TEMP 36.5; O2SAT 100
--- NOTE | 2022-03-09 08:19 | HE.PHANOTE ---
Received the methadone verification form from MARJAN Garland, patients last dose was 52 mg on 03/08.
[2022-03-09] MEDS: Furosemide 40 MG/4 ML VIAL IVPUSH (08:25)
[2022-03-09] MEDS: Famotidine 20 MG TABLET PO ×2 (08:26→21:02)
[2022-03-09] MEDS: Clopidogrel Bisulfate 75 MG TABLET PO (08:26)
[2022-03-09] MEDS: Aspirin Enteric Coated 81 MG TABLET.DR PO (08:26)
[2022-03-09] MEDS: carvediloL 6.25 MG TABLET PO ×2 (08:26→21:02)
[2022-03-09] MEDS: 0.9 % Sodium Chloride Flush 3 ML SYRINGE IVFLUSH ×2 (08:26→16:56)
[2022-03-09] MEDS: Zinc Sulfate 220 MG CAPSULE PO (08:26)
[2022-03-09] MEDS: Insulin Lispro 100 UNIT/ML 3 ML VIAL SUBCUT ×3 (08:27→21:04)
[2022-03-09 09:16] VITALS: PULSE 73; RESP 18; O2SAT 100
[2022-03-09] MEDS: Fluticasone/Vilanterol 200/25 BLST.W.DEV 1 PUFF INHALE (09:16)
[2022-03-09 09:30] VITALS: O2SAT 96
[2022-03-09] MEDS: methADONE HCl 20 MG/2 ML ORAL.CONC 50 MG PO (10:09)
[2022-03-09 11:03] LABS: Glucose, Whole Blood 136 mg/dL (60-115)
--- NOTE | 2022-03-09 12:29 | P.CDIC_ITS ---
CDI Concurrent Query Documentation Clarification: PHYSICIAN'S DOCUMENTATION REQUEST Date of Query: 03/09/22 1231 Patient Name: oDminik Hawk Admit Date: 03/08/22 Dear Doctor, A review of the medical record indicates additional documentation may be needed. Please review below and update the documentation accordingly. Clinical Indicators: The following diagnoses or signs and symptoms were noted in the patient record: Risk Factors/Clinical Indicators/Treatments Per ED note 03/08/22: left great toe open, yellow drainage wound noted, foot red and swollen. DM with chronic left foot ulcer Per H&P 03/08/22: post amputation right lower extremity. Physical exam: left below knee amputation. Right big toe open wound dorsal side Based on the above, could you clarify the laterality of the toe wound that supports the above abnormalities and additional evaluation, monitoring, and/or treatment rendered: * Left great toe open wound, right BKA * Right great toe open wound, left BKA * Other (please specify) * Unable to determine Use of terms such as suspected, likely, concern for, or probable (associated with a specific diagnosis that is being evaluated, monitored, or treated as if it exists) are acceptable and can be coded in the inpatient setting, when documented at the time of discharge. Thank you, Patricia Goodman RN Extension: [phone] Please use your independent medical judgment in providing your response. THIS QUERY IS PART OF THE PERMANENT MEDICAL RECORD Provider Response: Other Other Diagnosis: have not written note yet
--- NOTE | 2022-03-09 13:13 | P.PNIM_ITS ---
Subjective Subjective Date of Service: 03/09/22 Interval History: cc: sob interval history: a bit better Cardiovascular Cardiovascular: Reports no additional cardiovascular complaints Respiratory Respiratory: Reports no additional respiratory complaints Physical Exam Vital Signs: Vital Signs: Last Vital Signs Temp 97.7 F 03/09/22 08:00 Pulse 73 03/09/22 09:16 Resp 18 03/09/22 09:16 BP 146/79 H 03/09/22 08:00 Pulse Ox 96 03/09/22 09:30 BMI result Body Mass Index 34.7 General: AO X 3, no acute distress Resp: CTA bilateral, no accessory muscles used CVS: S1,S2,RRR GI: soft, non tender, non distended Neuro: motor grossly intact, alert Psych: appropriate affect, appropriate insight ext: right bka, left big toe ulcer Objective Data Active Medications Acetaminophen (Acetaminophen 325 Mg Tablet) 650 mg PO Q6H PRN PRN Reason: Pain, Mild (Pain Scale 1-3) Albuterol Sulfate (Albuterol Sulfate (0.083%) 2.5 Mg/3 Ml Vial.Neb) 2.5 mg INHALE Q6H PRN PRN Reason: Shortness of Breath/Wheezing Aspirin (Aspirin Enteric Coated 81 Mg Tablet.) 81 mg PO DAILY [facility] Last Admin: 03/09/22 08:26 Dose: 81 mg Documented by: ABBEY Atorvastatin Calcium (Atorvastatin Calcium 20 Mg Tablet) 20 mg PO BEDTIME [facility] Last Admin: 03/08/22 21:00 Dose: 20 mg Documented by: ROSETTA Carvedilol (Carvedilol 6.25 Mg Tablet) 6.25 mg PO BID [facility]; Protocol Last Admin: 03/09/22 08:26 Dose: 6.25 mg Documented by: ABBEY Clopidogrel Bisulfate (Clopidogrel Bisulfate 75 Mg Tablet) 75 mg PO DAILY [facility] Last Admin: 03/09/22 08:26 Dose: 75 mg Documented by: ABBEY Dextrose (Dextrose 50 % 25 Gm/50 Ml Syringe) 25 gm IVPUSH Q15M PRN; Protocol PRN Reason: per Hypoglycemia Standing Ord. Famotidine (Famotidine 20 Mg Tablet) 20 mg PO BID [facility] Last Admin: 03/09/22 08:26 Dose: 20 mg Documented by: ABBEY Fluticasone/Vilanterol (Fluticasone/Vilanterol 200/25 Blst.W.Dev) 1 puff INHALE RDAILY [facility] Last Admin: 03/09/22 09:16 Dose: 1 puff Documented by: JAZZ Furosemide (Furosemide 40 Mg/4 Ml Vial) 40 mg IVPUSH DAILY [facility]; Protocol Last Admin: 03/09/22 08:25 Dose: 40 mg Documented by: ABBEY Glucose (Glucose Gel 15 Gm Gel..Gram.) 15 gm PO Q15M PRN; Protocol PRN Reason: per Hypoglycemia Standing Ord. Heparin Sodium (Porcine) (Heparin Sodium,Porcine 5,000 Unit/Ml Vial) 5,000 unit SUBCUT Q8H [facility] Last Admin: 03/09/22 11:17 Dose: Not Given Documented by: ABBEY Non-Admin Reason: Patient Refused Doxycycline Hyclate 100 mg/ (Sodium Chloride) 250 mls @ 166.67 mls/hr IV Q12H [facility] Last Infusion: 03/09/22 05:50 Dose: 0 mls/hr Documented by: OLESYA Insulin Human Lispro (Insulin Lispro 100 Unit/Ml 3 Ml Vial) 0 unit SUBCUT QIDACHS [facility]; Protocol Last Admin: 03/09/22 11:17 Dose: Not Given Documented by: ABBEY Non-Admin Reason: No Insulin Coverage Methadone HCl (Methadone Hcl 20 Mg/2 Ml Oral.Conc) 50 mg PO DAILY [facility] Last Admin: 03/09/22 10:09 Dose: 50 mg Documented by: ABBEY Montelukast Sodium (Montelukast Sodium 10 Mg Tablet) 10 mg PO BEDTIME [facility] Last Admin: 03/08/22 21:00 Dose: 10 mg Documented by: ROSETTA Ondansetron HCl (Ondansetron Hcl 4 Mg/2 Ml Vial) 4 mg IVPUSH Q8H PRN PRN Reason: Nausea and Vomiting Pharmacy Consult (Consult Rx Perform Med Rec) 1 each MISCELLANE ONCE PRN PRN Reason: Consult order Sodium Chloride (0.9 % Sodium Chloride Flush 3 Ml Syringe) 3 ml IVFLUSH QSHIFT [facility] Last Admin: 03/09/22 08:26 Dose: 3 ml Documented by: ABBEY Tamsulosin HCl (Tamsulosin Hcl 0.4 Mg Capsule) 0.4 mg PO BEDTIME [facility] Last Admin: 03/08/22 21:00 Dose: 0.4 mg Documented by: SMITH-KENYETTAICL Zinc Sulfate (Zinc Sulfate 220 Mg Capsule) 220 mg PO DAILY [facility] Last Admin: 03/09/22 08:26 Dose: 220 mg Documented by: ABBEY Labs CBC & Chem 7: 03/09/22 06:50 03/09/22 06:50 Labs: Laboratory Results - last 24 hr 03/08/22 03/08/22 03/08/22 12:38 12:38 12:38 MCV MCH MCHC RDW Plt Count MPV Absolute Nucleated RBC Nucleated RBC % (auto) ESR Anion Gap Estim Creat Clear Calc Estimated GFR POC Glucose Random Glucose Lactic Acid 4.1 H* Lactic Acid F/U @ 2Hr Calcium Troponin I High Sens 116.6 H* B-Natriuretic Peptide 3649 H Urine Color Urine Appearance Urine pH Ur Specific [place] Urine Protein Urine Glucose (UA) Urine Ketones Urine Blood Urine Nitrite Ur Leukocyte Esterase Urine RBC Urine WBC Ur Squamous Epith Cells Urine Bacteria COVID-19 (JAMILA) Negative [facility] Clin Com See Note 03/08/22 03/08/22 03/08/22 13:56 14:08 15:48 MCV MCH MCHC RDW Plt Count MPV Absolute Nucleated RBC Nucleated RBC % (auto) ESR 42 H Anion Gap Estim Creat Clear Calc Estimated GFR POC Glucose Random Glucose Lactic Acid Lactic Acid F/U @ 2Hr 2.5 H* Calcium Troponin I High Sens B-Natriuretic Peptide Urine Color YELLOW Urine Appearance CLEAR Urine pH 6.0 Ur Specific [place] 1.025 Urine Protein 3+ H Urine Glucose (UA) NEG Urine Ketones NEG Urine Blood 2+ H Urine Nitrite POS H Ur Leukocyte Esterase NEG Urine RBC 15-29 H Urine WBC 0-2 Ur Squamous Epith Cells 2+ Urine Bacteria 1+ COVID-19 (JAMILA) COVID-[facility] Clin Com 03/08/22 03/09/22 03/09/22 17:58 06:50 06:50 MCV 81.0 MCH 26.2 L MCHC 32.4 RDW 16.3 H Plt Count 206 MPV 10.6 Absolute Nucleated RBC 0.000 Nucleated RBC % (auto) 0.0 ESR Anion Gap 13 Estim Creat Clear Calc 80.1 Estimated GFR > 60 POC Glucose 189 H Random Glucose 287 H Lactic Acid Lactic Acid F/U @ 2Hr Calcium 9.0 Troponin I High Sens B-Natriuretic Peptide Urine Color Urine Appearance Urine pH Ur Specific [place] Urine Protein Urine Glucose (UA) Urine Ketones Urine Blood Urine Nitrite Ur Leukocyte Esterase Urine RBC Urine WBC Ur Squamous Epith Cells Urine Bacteria COVID-19 (JAMILA) COVID-19 Clin Com 03/09/22 03/09/22 07:13 10:59 MCV MCH MCHC RDW Plt Count MPV Absolute Nucleated RBC Nucleated RBC % (auto) ESR Anion Gap Estim Creat Clear Calc Estimated GFR POC Glucose 280 H 136 H Random Glucose Lactic Acid Lactic Acid F/U @ 2Hr Calcium Troponin I High Sens B-Natriuretic Peptide Urine Color Urine Appearance Urine pH Ur Specific [place] Urine Protein Urine Glucose (UA) Urine Ketones Urine Blood Urine Nitrite Ur Leukocyte Esterase Urine RBC Urine WBC Ur Squamous Epith Cells Urine Bacteria COVID-19 (JAMILA) COVID-19 Clin Com Assessment and Plan (1) Open wound of toe: Status: Acute Plan 51M presented sob and left great toe ulcer acute on chronic systolic and diastolic chf copntinue iv lasix, montior electroyltes PVD with DFU and OM of LLE continue doxy, follow up ID follow up cultures, ID dapl, statin hyponatremia 128, monitor, fluid restrict hypomagnesemia 1.5, replace, monitor DM insulin, montior opiate dependence methadone COPD bronchodilators prn dvt prophylaxis - hep sq reason for continued hospitalization: ongoing diuresis and iv abx, not back to baseline sob, risk for progression to sepsis given DM, chf Quality Stroke Does the patient have a stroke diagnosis?: No VTE Prior VTE?: No VTE Risk Level:: Medical - moderate - high VTE Device Contraindication: Treatment Not Indicated VTE Drug Contraindication: N/A - Med Ordered
--- NOTE | 2022-03-09 15:07 | MHC.CM.PN ---
Addendum entered by Reyna Campuzano 03/09/22 15:21: HCP on file. Vax [facility] x2 Original Note: Male 51 dx SOB Worse toe wound. He lives alone. He has a friend in his building. She assists the patient. Per patient he was receiving vna services; but they have recently stopped. He does not know the name of the agency. He reported home care SN delivered his home methadone and administered it as well. He says that he was blamed for tampering with the equipment containing the medication. Per MD rounds patient may require IV ABX @ DC. He will need a facility @ DC if IV ordered. High view of [facility] and Ritchie Anguiano referred. A financial referral has been made. Patient should be eligible for Medicare. He states that he still does not have a prosthesis for R BKA; because his insurance does not cover prostheses. DP SNF vs home with services. Chair ana @ discharge.
[2022-03-09 15:13] VITALS: BP 104/59; PULSE 77; RESP 20; TEMP 36.6; O2SAT 97
[2022-03-09 15:57] LABS: Glucose, Whole Blood 170 mg/dL (60-115)
--- NOTE | 2022-03-09 16:15 | P.CNID_ITS ---
History of Present Illness Data of Consult Service Date: 03/09/22 Requesting physician: Steven Brown Primary Care Provider: [facility] Reason for consult: left foot osteomyelitis,UTI,multiple drug allergies He presents with discomfort left great toe and yellowish exudate. He has urinary discomfort as well. He has XRay some destructive lesions. Review of Systems Review of Systems: Yes all other systems are reviewed and are negative [facility] Past Medical History Medical History Abscess or cellulitis of foot Acute on chronic anemia Acute on chronic combined systolic and diastolic congestive heart failure Acute on chronic HFrEF (heart failure with reduced ejection fraction) Acute respiratory failure with hypoxia Asthma Bipolar 1 disorder BPH (benign prostatic hyperplasia) CHF exacerbation Cholelithiasis Closed wedge compression fracture of T9 vertebra COPD (chronic obstructive pulmonary disease) Diabetes mellitus Diabetes mellitus, type 2 Elevated troponin GERD (gastroesophageal reflux disease) Hyperlipidemia Ischemic cardiomyopathy Lymphadenopathy Opiate abuse, continuous Osteomyelitis Peripheral arterial disease Peripheral neuropathy Peripheral vascular disease Substance abuse Tracheomalacia, acquired Family History Family History Father Chronic mental illness Hypertension Asthma Stroke Mother Asthma Diabetes Coronary artery disease Surgical History Surgical History History of amputation History of laminectomy History of transurethral resection of prostate Hx of BKA Social History Social History Household Members: None Housing: Apartment Housing Other:: IN A LITTLE ROOM Do you presently have visiting nurse or other home services: Yes Alcohol intake: never Patient Tobacco Use Status: Never used Tobacco e-Cigarette/Vaping Use: Never Used Second Hand Smoke Exposure: No Substance Use Type: Marijuana Advance Directives Date on File: 11/24/20 service: No Current occupational status: disabled Meds Allergies Allergy/AdvReac Type Severity Reaction Status Date / Time ertapenem Allergy Intermediate Hives Verified 02/21/22 18:40 vancomycin [VANCOMYCIN] Allergy Intermediate HIVES Verified 02/21/22 18:40 Chocolate Allergy Unknown Rash Verified 02/21/22 18:40 ciprofloxacin [From CIPRO] Allergy Unknown SWELLING Verified 02/21/22 18:40 hydrocortisone [Cipro HC] Allergy Unknown Unknown Verified 02/21/22 18:40 sulfamethoxazole Allergy Unknown rash Verified 02/21/22 18:40 [From BACTRIM] trimethoprim [From BACTRIM] Allergy Unknown rash Verified 02/21/22 18:40 turkey [TURKEY] Allergy Unknown RASH Verified 02/21/22 18:40 Active Medications: Current Medications Acetaminophen (Acetaminophen 325 Mg Tablet) 650 mg PO Q6H PRN PRN Reason: Pain, Mild (Pain Scale 1-3) Albuterol Sulfate (Albuterol Sulfate (0.083%) 2.5 Mg/3 Ml Vial.Sami) 2.5 mg INHALE Q6H PRN PRN Reason: Shortness of Breath/Wheezing Aspirin (Aspirin Enteric Coated 81 Mg Tablet.) 81 mg PO DAILY [facility] Last Admin: 03/09/22 08:26 Dose: 81 mg Documented by: Atorvastatin Calcium (Atorvastatin Calcium 20 Mg Tablet) 20 mg PO BEDTIME [facility] Last Admin: 03/08/22 21:00 Dose: 20 mg Documented by: Carvedilol (Carvedilol 6.25 Mg Tablet) 6.25 mg PO BID [facility]; Protocol Last Admin: 03/09/22 08:26 Dose: 6.25 mg Documented by: Clopidogrel Bisulfate (Clopidogrel Bisulfate 75 Mg Tablet) 75 mg PO DAILY [facility] Last Admin: 03/09/22 08:26 Dose: 75 mg Documented by: Dextrose (Dextrose 50 % 25 Gm/50 Ml Syringe) 25 gm IVPUSH Q15M PRN; Protocol PRN Reason: per Hypoglycemia Standing Ord. Famotidine (Famotidine 20 Mg Tablet) 20 mg PO BID [facility] Last Admin: 03/09/22 08:26 Dose: 20 mg Documented by: Fluticasone/Vilanterol (Fluticasone/Vilanterol 200/25 Blst.W.Dev) 1 puff INHALE RDAILY [facility] Last Admin: 03/09/22 09:16 Dose: 1 puff Documented by: Furosemide (Furosemide 40 Mg/4 Ml Vial) 40 mg IVPUSH DAILY [facility]; Protocol Last Admin: 03/09/22 08:25 Dose: 40 mg Documented by: Glucose (Glucose Gel 15 Gm Gel..Gram.) 15 gm PO Q15M PRN; Protocol PRN Reason: per Hypoglycemia Standing Ord. Heparin Sodium (Porcine) (Heparin Sodium,Porcine 5,000 Unit/Ml Vial) 5,000 unit SUBCUT Q8H [facility] Last Admin: 03/09/22 14:14 Dose: Not Given Documented by: Doxycycline Hyclate 100 mg/ (Sodium Chloride) 250 mls @ 166.67 mls/hr IV Q12H [facility] Last Infusion: 03/09/22 05:50 Dose: Infused Documented by: Ceftriaxone Sodium 2 gm/ (Sodium Chloride) 50 mls @ 100 mls/hr IV Q24H [facility] Insulin Human Lispro (Insulin Lispro 100 Unit/Ml 3 Ml Vial) 0 unit SUBCUT QIDACHS [facility]; Protocol Last Admin: 03/09/22 11:17 Dose: Not Given Documented by: Linezolid (Linezolid 600 Mg Tablet) 600 mg PO Q12H [facility] Methadone HCl (Methadone Hcl 20 Mg/2 Ml Oral.Conc) 50 mg PO DAILY [facility] Last Admin: 03/09/22 10:09 Dose: 50 mg Documented by: Montelukast Sodium (Montelukast Sodium 10 Mg Tablet) 10 mg PO BEDTIME [facility] Last Admin: 03/08/22 21:00 Dose: 10 mg Documented by: Ondansetron HCl (Ondansetron Hcl 4 Mg/2 Ml Vial) 4 mg IVPUSH Q8H PRN PRN Reason: Nausea and Vomiting Pharmacy Consult (Consult Rx Perform Med Rec) 1 each MISCELLANE ONCE PRN PRN Reason: Consult order Sodium Chloride (0.9 % Sodium Chloride Flush 3 Ml Syringe) 3 ml IVFLUSH QSHIFT [facility] Last Admin: 03/09/22 08:26 Dose: 3 ml Documented by: Tamsulosin HCl (Tamsulosin Hcl 0.4 Mg Capsule) 0.4 mg PO BEDTIME [facility] Last Admin: 03/08/22 21:00 Dose: 0.4 mg Documented by: Zinc Sulfate (Zinc Sulfate 220 Mg Capsule) 220 mg PO DAILY [facility] Last Admin: 03/09/22 08:26 Dose: 220 mg Documented by: Home Medications Medication Instructions Recorded Confirmed Last Taken Type albuterol sulfate 90 mcg/actuation 2 puff INHALATION Q4-6H PRN 03/08/22 03/08/22 Unknown History aerosol inhaler (ProAir HFA) aspirin 81 mg tablet,delayed 1 tab PO QAM 03/08/22 03/08/22 Unknown History release atorvastatin 20 mg tablet 1 tab PO BEDTIME 03/08/22 03/08/22 Unknown History carvedilol 6.25 mg tablet 1 tab PO BID 03/08/22 03/08/22 Unknown History cetirizine 10 mg tablet 1 tab PO QAM 03/08/22 03/08/22 Unknown History clopidogrel 75 mg tablet 1 tab PO QAM 03/08/22 03/08/22 Unknown History famotidine 20 mg tablet 1 tab PO BID 03/08/22 03/08/22 Unknown History fluticasone 500 mcg-salmeterol 50 1 puff PO BID 03/08/22 03/08/22 Unknown History mcg/dose blistr powdr for inhalation (Advair Diskus) fluticasone propionate 50 1 - 2 spray INTRANASAL DAILY PRN 03/08/22 03/08/22 Unknown History mcg/actuation nasal spray,suspension furosemide 40 mg tablet 1 tab PO QPM 03/08/22 03/08/22 Unknown History gabapentin 100 mg capsule 2 cap PO TID 03/08/22 03/08/22 Unknown History insulin aspart U-100 100 unit/mL 1 sliding scale dose SUBCUT TID 03/08/22 03/08/22 Unknown History (3 mL) subcutaneous pen (Novolog Flexpen U-100 Insulin aspart) insulin glargine 100 unit/mL (3 4 unit SUBCUT BEDTIME 03/08/22 03/08/22 03/07/22 History mL) subcutaneous pen (Lantus Solostar U-100 Insulin) lidocaine 5 % topical patch 1 patch TOPICAL DAILY 03/08/22 03/08/22 Unknown History (Lidoderm) losartan 25 mg tablet 1 tab PO QAM 03/08/22 03/08/22 Unknown History methadone 10 mg/mL oral concentrate 52 mg PO DAILY 03/08/22 03/09/22 03/08/22 History montelukast 10 mg tablet 1 tab PO QPM 03/08/22 03/08/22 Unknown History spironolactone 25 mg tablet 0.5 tab PO QAM 03/08/22 03/08/22 Unknown History tamsulosin 0.4 mg capsule 1 cap PO QPM 03/08/22 03/08/22 Unknown History zinc sulfate 50 mg zinc (220 mg) 1 cap PO DAILY 03/08/22 03/08/22 Unknown History capsule Physical Exam Vital Signs: Vital Signs: Last Vital Signs Temp 98 F 03/09/22 15:13 Pulse 77 03/09/22 15:13 Resp 20 03/09/22 15:13 BP 104/59 L 03/09/22 15:13 Pulse Ox 97 03/09/22 15:13 BMI result Body Mass Index 34.7 Const: General: cooperative HEENT: Head: Yes normal to inspection Mouth: Normal oral and palatal mucosa present Resp: Effort & Inspection: normal respiratory effort Cardio: Rate: regular rate Rhythm: regular rhythm GI: Palpation (GI): Soft to palpation and nontender Extrem: Other: left great toe swelling and redness, right BKA site with reddened circular lesions Results Labs CBC & Chem 7: 03/09/22 06:50 03/09/22 06:50 Labs: Short CBC 03/09/22 Range/Units 06:50 WBC 10.0 (4.8-10.8) X10*3/uL Hgb 12.3 L (14.0-18.0) g/dl Hct 38.0 L (42.0-52.0) % Plt Count 206 (160-400) X10*3/uL BMP 03/09/22 06:50 Sodium 128 L Potassium 4.6 Chloride 97 Carbon Dioxide 23 BUN 16 D Creatinine 0.94 Calcium 9.0 Microbiology Microbiology Results: Microbiology 03/08/22 13:56 Blood - Venous Blood Culture - Preliminary No growth after 24 hours. 03/08/22 12:38 Blood - Venous Blood Culture - Preliminary No growth after 24 hours. 03/08/22 14:15 Urine clean catch - Urine shi top Urine Culture - Preliminary Gram negative ryan Assessment and Plan (1) Open wound of toe: Qualifiers: Encounter type: initial encounter Qualified Code(s): S91.109A - Unspecified open wound of unspecified toe(s) without damage to nail, initial encounter Status: Acute Probable UTI Gram negative rods,Ceftriaxone, prior hives to ertapenem but no anaphylaxis,probable change to 10 d po Ceftin Zyvox for 6 weeks,watch for any serotinergic reaction to Methadone
[2022-03-09] MEDS: cefTRIAXone sodium 2 GM in 0.9 % Sodium Chloride 50 ML IV (16:53)
[2022-03-09] MEDS: Linezolid 600 MG TABLET PO (18:35)
[2022-03-09 19:18] LABS: Glucose, Whole Blood 199 mg/dL (60-115)
[2022-03-09] MEDS: Tamsulosin HCL 0.4 MG CAPSULE PO (21:02)
[2022-03-09] MEDS: Atorvastatin Calcium 20 MG TABLET PO (21:02)
[2022-03-09] MEDS: Montelukast Sodium 10 MG TABLET PO (21:02)
[2022-03-09] MEDS: ondansetron HCL 4 MG/2 ML VIAL IVPUSH (21:31)
[2022-03-09 23:18] VITALS: BP 100/56; PULSE 71; RESP 20; TEMP 36.9; O2SAT 100
[2022-03-10] MEDS: Linezolid 600 MG TABLET PO ×2 (05:09→19:02)
[2022-03-10 06:33] LABS: Hematocrit 38.7 % (42.0-52.0); Hemoglobin 12.3 g/dl (14.0-18.0); Mean Corpuscular HGB Conc 31.8 g/dl (31.0-36.0); Mean Corpuscular Hemoglobin 26.2 pg (27.0-33.0); Mean Corpuscular Volume 82.3 fL (80.0-98.0); Platelet Count 213 X10*3/uL (160-400); Red Cell Distribution Width 16.2 % (11.0-16.0); White Blood Count 11.7 X10*3/uL (4.8-10.8)
[2022-03-10 06:51] LABS: Anion Gap 14 (12-20); Blood Urea Nitrogen 27 mg/dL (9-16); Calcium 9.5 mg/dL (8.4-10.2); Carbon Dioxide 25 mmol/L (22-29); Chloride 95 mmol/L (96-108); Creatinine Clr Calc Pharmacy 70.3; Estimated Glomerular Filt Rate > 60; Glucose Fasting 158 mg/dL (60-99); Magnesium 1.5 mg/dL (1.6-2.6); Potassium 4.5 mmol/L (3.3-5.1); Sodium 129 mmol/L (135-145)
[2022-03-10 07:21] LABS: Glucose, Whole Blood 166 mg/dL (60-115)
[2022-03-10 07:29] VITALS: BP 106/67; PULSE 72; RESP 18; TEMP 36.1; O2SAT 99
[2022-03-10] MEDS: Fluticasone/Vilanterol 200/25 BLST.W.DEV 1 PUFF INHALE (07:53)
[2022-03-10 07:54] VITALS: PULSE 72; RESP 18; O2SAT 99
[2022-03-10] MEDS: Insulin Lispro 100 UNIT/ML 3 ML VIAL SUBCUT ×2 (07:57→11:56)
[2022-03-10] MEDS: methADONE HCl 20 MG/2 ML ORAL.CONC 50 MG PO (07:57)
[2022-03-10] MEDS: Famotidine 20 MG TABLET PO (07:59)
[2022-03-10] MEDS: Aspirin Enteric Coated 81 MG TABLET.DR PO (07:59)
[2022-03-10] MEDS: 0.9 % Sodium Chloride Flush 3 ML SYRINGE IVFLUSH ×2 (07:59→17:35)
[2022-03-10] MEDS: Clopidogrel Bisulfate 75 MG TABLET PO (07:59)
[2022-03-10] MEDS: Furosemide 40 MG/4 ML VIAL IVPUSH (07:59)
[2022-03-10] MEDS: Zinc Sulfate 220 MG CAPSULE PO (07:59)
[2022-03-10] MEDS: carvediloL 6.25 MG TABLET PO (07:59)
[2022-03-10 09:19] VITALS: O2SAT 99
[2022-03-10 10:58] LABS: Glucose, Whole Blood 206 mg/dL (60-115)
[2022-03-10 10:59] VITALS: BP 102/59; PULSE 66; RESP 18; TEMP 36.3; O2SAT 98
[2022-03-10] MEDS: ondansetron HCL 4 MG/2 ML VIAL IVPUSH (12:41)
[2022-03-10 15:10] VITALS: BP 117/79; PULSE 76; RESP 20; TEMP 36.7; O2SAT 98
[2022-03-10 15:53] LABS: Glucose, Whole Blood 106 mg/dL (60-115)
[2022-03-10] MEDS: cefTRIAXone sodium 2 GM in 0.9 % Sodium Chloride 50 ML IV (17:35)
[2022-03-10] MEDS: diazePAM 10 MG/2 ML CARTRIDGE 2.5 MG IVPUSH (17:35)
[2022-03-10 19:39] LABS: Glucose, Whole Blood 149 mg/dL (60-115)
--- NOTE | 2022-03-10 22:46 | PC.NURSE ---
At 20:35 pt. was brought bedtime medications. Pt. thought he was supposed to be getting valium. This nurse explained that he received valium an hour prior and that it was a one time dose. Pt. irritable, states the doctor told me I would get valium at 8 Pt. refused to take all other bedtime medications and PRN zofran. Tried to explain the importance of medication compliance and reasoning for the one time dose of valium. Pt. unable to comprehend, argumentative. made aware. Medications wasted.
[2022-03-11] VITALS: BP 122/64; PULSE 80; RESP 18; TEMP 36; O2SAT 98
[2022-03-11] MEDS: Albuterol Sulfate (0.083%) 2.5 MG/3 ML VIAL.NEB INHALE (03:24)
[2022-03-11 03:25] VITALS: PULSE 80; RESP 20; O2SAT 98
[2022-03-11] MEDS: Fluticasone/Vilanterol 200/25 BLST.W.DEV 1 PUFF INHALE (07:26)
[2022-03-11 07:27] VITALS: PULSE 71; RESP 18; O2SAT 92
[2022-03-11 07:28] LABS: Glucose, Whole Blood 122 mg/dL (60-115)
[2022-03-11 07:52] VITALS: BP 120/76; PULSE 74; RESP 18; TEMP 36; O2SAT 96
[2022-03-11] MEDS: Furosemide 40 MG/4 ML VIAL IVPUSH (09:18)
[2022-03-11] MEDS: Aspirin Enteric Coated 81 MG TABLET.DR PO (09:18)
[2022-03-11] MEDS: 0.9 % Sodium Chloride Flush 3 ML SYRINGE IVFLUSH ×3 (09:18→20:54)
[2022-03-11] MEDS: carvediloL 6.25 MG TABLET PO (09:19)
[2022-03-11] MEDS: Famotidine 20 MG TABLET PO (09:19)
[2022-03-11] MEDS: Clopidogrel Bisulfate 75 MG TABLET PO (09:19)
[2022-03-11] MEDS: Zinc Sulfate 220 MG CAPSULE PO (09:19)
[2022-03-11] MEDS: methADONE HCl 20 MG/2 ML ORAL.CONC 50 MG PO (09:20)
[2022-03-11] MEDS: Linezolid 600 MG TABLET PO ×2 (09:20→19:30)
[2022-03-11 09:42] LABS: Anion Gap 12 (12-20); Blood Urea Nitrogen 25 mg/dL (9-16); Calcium 8.9 mg/dL (8.4-10.2); Carbon Dioxide 25 mmol/L (22-29); Chloride 94 mmol/L (96-108); Creatinine Clr Calc Pharmacy 75.3; Estimated Glomerular Filt Rate > 60; Glucose Random 181 mg/dL (60-115); Magnesium 1.4 mg/dL (1.6-2.6); Potassium 4.2 mmol/L (3.3-5.1); Sodium 127 mmol/L (135-145)
[2022-03-11] MEDS: Acetaminophen 325 MG TABLET 650 MG PO (10:22)
--- NOTE | 2022-03-11 10:43 | PC.NURSE ---
Skin/wound assessment completed today. Patient has a left great toe diabetic ulcer, wound cleansed with wound cleanser then silver alginate applied covered with non woven gauze and roll gauze.
[2022-03-11 11:10] LABS: Glucose, Whole Blood 174 mg/dL (60-115)
[2022-03-11] MEDS: Insulin Lispro 100 UNIT/ML 3 ML VIAL SUBCUT ×2 (12:06→17:10)
[2022-03-11] MEDS: Magnesium Sulfate/H2O 2 GM/50 ML PIGGYBACK IV (12:07)
--- NOTE | 2022-03-11 15:01 | HO.PM.IMPN ---
Subjective Subjective Date of Service: 03/11/22 Interval History: Complaining of nausea, left leg pain, also complaining of shortness of breath, cough requesting for updraft treatment, no acute events overnight. Review of Systems CAUSTICISER no headache no dizziness CVS no chest pain, no palpitation Review of Systems: Yes all other systems are reviewed and are negative Physical Exam Vital Signs: Vital Signs: Last Vital Signs Temp 96.8 F 03/11/22 07:52 Pulse 74 03/11/22 07:52 Resp 18 03/11/22 07:52 BP 120/76 03/11/22 07:52 Pulse Ox 96 03/11/22 07:52 BMI result Body Mass Index 34.7 Const: Other: General: Alert oriented x3, no acute distress Neck no JVD, normal inspection Resp:? CTA bilateral, no wheeze, no rhonchi no accessory muscles used CVS: S1,S2,RRR GI: soft, non tender, non distended Neuro:? motor grossly intact, alert Psych: appropriate affect, appropriate insight? ext: right bka, left big toe ulcer Objective Data Active Medications Acetaminophen (Acetaminophen 325 Mg Tablet) 650 mg PO Q6H PRN PRN Reason: Pain, Mild (Pain Scale 1-3) Last Admin: 03/11/22 10:22 Dose: 650 mg Documented by: DOMINGA Albuterol Sulfate (Albuterol Sulfate (0.083%) 2.5 Mg/3 Ml Vial.Neb) 2.5 mg INHALE Q6H PRN PRN Reason: Shortness of Breath/Wheezing Last Admin: 03/11/22 03:24 Dose: 2.5 mg Documented by: ZACH Aspirin (Aspirin Enteric Coated 81 Mg Tablet.) 81 mg PO DAILY [facility] Last Admin: 03/11/22 09:18 Dose: 81 mg Documented by: DOMINGA Atorvastatin Calcium (Atorvastatin Calcium 20 Mg Tablet) 20 mg PO BEDTIME [facility] Last Admin: 03/10/22 20:47 Dose: Not Given Documented by: ANTPERFECTO Non-Admin Reason: Patient Refused Carvedilol (Carvedilol 6.25 Mg Tablet) 6.25 mg PO BID [facility]; Protocol Last Admin: 03/11/22 09:19 Dose: 6.25 mg Documented by: DOMINGA Clopidogrel Bisulfate (Clopidogrel Bisulfate 75 Mg Tablet) 75 mg PO DAILY [facility] Last Admin: 03/11/22 09:19 Dose: 75 mg Documented by: DOMINGA Dextrose (Dextrose 50 % 25 Gm/50 Ml Syringe) 25 gm IVPUSH Q15M PRN; Protocol PRN Reason: per Hypoglycemia Standing Ord. Famotidine (Famotidine 20 Mg Tablet) 20 mg PO BID [facility] Last Admin: 03/11/22 09:19 Dose: 20 mg Documented by: DOMINGA Fluticasone/Vilanterol (Fluticasone/Vilanterol 200/25 Blst.W.Dev) 1 puff INHALE RDAILY [facility] Last Admin: 03/11/22 07:26 Dose: 1 puff Documented by: JAZZ Furosemide (Furosemide 40 Mg/4 Ml Vial) 40 mg IVPUSH DAILY [facility]; Protocol Last Admin: 03/11/22 09:18 Dose: 40 mg Documented by: DOMINGA Glucose (Glucose Gel 15 Gm Gel..Gram.) 15 gm PO Q15M PRN; Protocol PRN Reason: per Hypoglycemia Standing Ord. Heparin Sodium (Porcine) (Heparin Sodium,Porcine 5,000 Unit/Ml Vial) 5,000 unit SUBCUT Q8H [facility] Last Admin: 03/11/22 14:14 Dose: Not Given Documented by: DOMINGA Non-Admin Reason: Patient Refused Ceftriaxone Sodium 2 gm/ (Sodium Chloride) 50 mls @ 100 mls/hr IV Q24H [facility] Last Infusion: 03/10/22 19:08 Dose: 0 mls/hr Documented by: FAIZA Insulin Human Lispro (Insulin Lispro 100 Unit/Ml 3 Ml Vial) 0 unit SUBCUT QIDACHS [facility]; Protocol Last Admin: 03/11/22 12:06 Dose: 2 unit Documented by: DOMINGA Linezolid (Linezolid 600 Mg Tablet) 600 mg PO Q12H [facility] Last Admin: 03/11/22 09:20 Dose: 600 mg Documented by: DOMINGA Magnesium Oxide (Magnesium Oxide 400 Mg Tablet) 800 mg PO DAILY [facility] Methadone HCl (Methadone Hcl 20 Mg/2 Ml Oral.Conc) 50 mg PO DAILY [facility] Last Admin: 03/11/22 09:20 Dose: 50 mg Documented by: DOMINGA Montelukast Sodium (Montelukast Sodium 10 Mg Tablet) 10 mg PO BEDTIME [facility] Last Admin: 03/10/22 20:47 Dose: Not Given Documented by: ANTOIC Non-Admin Reason: Patient Refused Ondansetron HCl (Ondansetron Hcl 4 Mg/2 Ml Vial) 4 mg IVPUSH Q8H PRN PRN Reason: Nausea and Vomiting Last Admin: 03/10/22 12:41 Dose: 4 mg Documented by: FAIZA Pharmacy Consult (Consult Rx Perform Med Rec) 1 each MISCELLANE ONCE PRN PRN Reason: Consult order Sodium Chloride (0.9 % Sodium Chloride Flush 3 Ml Syringe) 3 ml IVFLUSH QSHIFT [facility] Last Admin: 03/11/22 09:18 Dose: 3 ml Documented by: DOMINGA Tamsulosin HCl (Tamsulosin Hcl 0.4 Mg Capsule) 0.4 mg PO BEDTIME [facility] Last Admin: 03/10/22 20:47 Dose: Not Given Documented by: ANTOIC Non-Admin Reason: Patient Refused Zinc Sulfate (Zinc Sulfate 220 Mg Capsule) 220 mg PO DAILY [facility] Last Admin: 03/11/22 09:19 Dose: 220 mg Documented by: DOMINGA Labs CBC & Chem 7: 03/10/22 06:18 03/11/22 09:06 Labs: Laboratory Results - last 24 hr 03/10/22 03/10/22 03/11/22 15:48 19:36 07:24 Anion Gap Estim Creat Clear Calc Estimated GFR POC Glucose 106 149 H 122 H Random Glucose Calcium Magnesium 03/11/22 03/11/22 09:06 11:07 Anion Gap 12 Estim Creat Clear Calc 75.3 Estimated GFR > 60 POC Glucose 174 H Random Glucose 181 H D Calcium 8.9 D Magnesium 1.4 L* Microbiology Microbiology Results: Microbiology 03/08/22 13:56 Blood Culture - Preliminary Blood - Venous No growth after 48 hours. 03/08/22 12:38 Blood Culture - Preliminary Blood - Venous No growth after 48 hours. Assessment and Plan (1) Open wound of toe: Status: Acute Plan 51M presented sob and left great toe ulcer acute on chronic systolic and diastolic chf on iv lasix, neg 300 mL, chest x-ray showed pulmonary vascular congestion and increased interstitial opacities ,elevated BNP clinically appears euvolemic today, will transition to home dose of Lasix 40 mg daily and Aldactone 12.5 mg daily. PVD with DFU and OM of LLE Blood cultures x2 negative, id recommend Zyvox by mouth x6 weeks , continue daily foot dressing Continue dapl, statin UTI urine culture grew Klebsiella changed to by mouth Ceftin for total 10 days hyponatremia 127, monitor, fluid restrict to 1200 mL, check serum osmolality hypomagnesemia Magnesium 1.4, will give IV magnesium 2 g and placed on by mouth magnesium , monitor level. DM Blood sugar 174, continue insulin, montior opiate dependence Continue methadone COPD Complaining of shortness of breath, and cough normal lung exam will add cough medication and continue bronchodilators prn dvt prophylaxis - hep sq reason for continued hospitalization: ongoing diuresis with electrolyte abnormality need aggressive iv replacement. Quality Stroke Does the patient have a stroke diagnosis?: No VTE Prior VTE?: No VTE Risk Level:: Medical - moderate - high VTE Device Contraindication: Treatment Not Indicated VTE Drug Contraindication: N/A - Med Ordered
[2022-03-11 15:14] VITALS: BP 112/67; PULSE 89; RESP 20; TEMP 36.1; O2SAT 96
[2022-03-11 16:03] LABS: Glucose, Whole Blood 194 mg/dL (60-115)
[2022-03-11] MEDS: guaiFENesin DM 200/20/10 ML 10 ML SYRUP PO (17:10)
[2022-03-11 19:50] LABS: Glucose, Whole Blood 223 mg/dL (60-115)
[2022-03-11] MEDS: ondansetron HCL 4 MG/2 ML VIAL IVPUSH (20:03)
[2022-03-11] MEDS: Tamsulosin HCL 0.4 MG CAPSULE PO (20:49)
[2022-03-11] MEDS: Montelukast Sodium 10 MG TABLET PO (20:49)
[2022-03-11 23:11] VITALS: BP 109/82; PULSE 76; RESP 20; TEMP 36.7; O2SAT 99
[2022-03-12] MEDS: Acetaminophen 325 MG TABLET 650 MG PO (01:08)
[2022-03-12] MEDS: Linezolid 600 MG TABLET PO ×2 (04:33→17:58)
[2022-03-12 04:50] LABS: Glucose, Whole Blood 187 mg/dL (60-115)
[2022-03-12 07:41] LABS: Glucose, Whole Blood 174 mg/dL (60-115)
[2022-03-12] MEDS: Fluticasone/Vilanterol 200/25 BLST.W.DEV 1 PUFF INHALE (07:43)
[2022-03-12 07:44] VITALS: PULSE 74; RESP 18; O2SAT 93
[2022-03-12 08:00] VITALS: BP 141/88; PULSE 72; RESP 16; TEMP 36.4; O2SAT 98
[2022-03-12] MEDS: ondansetron HCL 4 MG/2 ML VIAL IVPUSH (08:18)
[2022-03-12] MEDS: Insulin Lispro 100 UNIT/ML 3 ML VIAL SUBCUT ×4 (08:18→20:17)
[2022-03-12] MEDS: 0.9 % Sodium Chloride Flush 3 ML SYRINGE IVFLUSH ×3 (08:19→20:17)
[2022-03-12] MEDS: methADONE HCl 20 MG/2 ML ORAL.CONC 50 MG PO (09:36)
[2022-03-12 10:01] LABS: Anion Gap 17 (12-20); Blood Urea Nitrogen 23 mg/dL (9-16); Calcium 8.9 mg/dL (8.4-10.2); Carbon Dioxide 23 mmol/L (22-29); Chloride 91 mmol/L (96-108); Creatinine Clr Calc Pharmacy 85.5; Estimated Glomerular Filt Rate > 60; Glucose Random 196 mg/dL (60-115); Magnesium 1.7 mg/dL (1.6-2.6); Potassium 4.3 mmol/L (3.3-5.1); Sodium 127 mmol/L (135-145)
[2022-03-12 10:07] LABS: Osmolality, Serum 280 mosm/kg (281-305)
[2022-03-12 10:11] LABS: B Type Natriuretic Peptide 2785 pg/mL (<100)
--- NOTE | 2022-03-12 10:12 | HO.PM.IMPN ---
Subjective Subjective Date of Service: 03/12/22 Interval History: cc: sob interval history:still sob Cardiovascular Cardiovascular: Reports no additional cardiovascular complaints Respiratory Respiratory: Reports no additional respiratory complaints Physical Exam Vital Signs: Vital Signs: Last Vital Signs Temp 97.5 F 03/12/22 08:00 Pulse 72 03/12/22 08:00 Resp 16 03/12/22 08:00 BP 141/88 H 03/12/22 08:00 Pulse Ox 98 03/12/22 08:00 BMI result Body Mass Index 34.7 General:? Alert oriented x3, no acute distress Neck no JVD, normal inspection Resp:? CTA bilateral, no wheeze, no rhonchi no accessory muscles used CVS: S1,S2,RRR GI: soft, non tender, non distended Neuro:? motor grossly intact, alert Psych: appropriate affect, appropriate insight? ext: right bka, left big toe ulcer Objective Data Active Medications Acetaminophen (Acetaminophen 325 Mg Tablet) 650 mg PO Q6H PRN PRN Reason: Pain, Mild (Pain Scale 1-3) Last Admin: 03/12/22 01:08 Dose: 650 mg Documented by: SCOOTER Albuterol Sulfate (Albuterol Sulfate (0.083%) 2.5 Mg/3 Ml Vial.Neb) 2.5 mg INHALE Q6H PRN PRN Reason: Shortness of Breath/Wheezing Last Admin: 03/11/22 03:24 Dose: 2.5 mg Documented by: ZACH Aspirin (Aspirin Enteric Coated 81 Mg Tablet.Dr) 81 mg PO DAILY [facility] Last Admin: 03/11/22 09:18 Dose: 81 mg Documented by: DOMINGA Atorvastatin Calcium (Atorvastatin Calcium 20 Mg Tablet) 20 mg PO BEDTIME [facility] Last Admin: 03/11/22 20:54 Dose: Not Given Documented by: SCOOTER Non-Admin Reason: Nausea Carvedilol (Carvedilol 6.25 Mg Tablet) 6.25 mg PO BID [facility]; Protocol Last Admin: 03/11/22 20:54 Dose: Not Given Documented by: SCOOTER Non-Admin Reason: Nausea Cefuroxime Axetil (Cefuroxime Axetil 250 Mg Tablet) 250 mg PO Q12H [facility] Last Admin: 03/12/22 04:33 Dose: 250 mg Documented by: SCOOTER Clopidogrel Bisulfate (Clopidogrel Bisulfate 75 Mg Tablet) 75 mg PO DAILY [facility] Last Admin: 03/11/22 09:19 Dose: 75 mg Documented by: DOMINGA Dextrose (Dextrose 50 % 25 Gm/50 Ml Syringe) 25 gm IVPUSH Q15M PRN; Protocol PRN Reason: per Hypoglycemia Standing Ord. Famotidine (Famotidine 20 Mg Tablet) 20 mg PO BID [facility] Last Admin: 03/11/22 20:52 Dose: Not Given Documented by: SCOTOER Non-Admin Reason: Nausea Fluticasone/Vilanterol (Fluticasone/Vilanterol 200/25 Blst.W.Dev) 1 puff INHALE RDAILY [facility] Last Admin: 03/12/22 07:43 Dose: 1 puff Documented by: DYAN Furosemide (Furosemide 40 Mg Tablet) 40 mg PO DAILY [facility]; Protocol Glucose (Glucose Gel 15 Gm Gel..Gram.) 15 gm PO Q15M PRN; Protocol PRN Reason: per Hypoglycemia Standing Ord. Guaifenesin/Dextromethorphan (Guaifenesin Dm 200/20/10 Ml 10 Ml Syrup) 10 ml PO Q8H [facility] Last Admin: 03/12/22 09:36 Dose: Not Given Documented by: FAIZA Non-Admin Reason: Patient Refused Heparin Sodium (Porcine) (Heparin Sodium,Porcine 5,000 Unit/Ml Vial) 5,000 unit SUBCUT Q8H [facility] Last Admin: 03/12/22 06:38 Dose: Not Given Documented by: SCOOTER Non-Admin Reason: Patient Refused Insulin Human Lispro (Insulin Lispro 100 Unit/Ml 3 Ml Vial) 0 unit SUBCUT QIDACHS [facility]; Protocol Last Admin: 03/12/22 08:18 Dose: 2 unit Documented by: FAIZA Linezolid (Linezolid 600 Mg Tablet) 600 mg PO Q12H [facility] Last Admin: 03/12/22 04:33 Dose: 600 mg Documented by: SCOOTER Magnesium Oxide (Magnesium Oxide 400 Mg Tablet) 800 mg PO DAILY [facility] Methadone HCl (Methadone Hcl 20 Mg/2 Ml Oral.Conc) 50 mg PO DAILY [facility] Last Admin: 03/12/22 09:36 Dose: 50 mg Documented by: FAIZA Montelukast Sodium (Montelukast Sodium 10 Mg Tablet) 10 mg PO BEDTIME [facility] Last Admin: 03/11/22 20:49 Dose: 10 mg Documented by: SCOOTER Ondansetron HCl (Ondansetron Hcl 4 Mg/2 Ml Vial) 4 mg IVPUSH Q8H PRN PRN Reason: Nausea and Vomiting Last Admin: 03/12/22 08:18 Dose: 4 mg Documented by: FAIZA Pharmacy Consult (Consult Rx Perform Med Rec) 1 each MISCELLANE ONCE PRN PRN Reason: Consult order Sodium Chloride (0.9 % Sodium Chloride Flush 3 Ml Syringe) 3 ml IVFLUSH QSHIFT [facility] Last Admin: 03/12/22 08:19 Dose: 3 ml Documented by: FAIZA Spironolactone (Spironolactone 25 Mg Tablet) 12.5 mg PO DAILY [facility]; Protocol Tamsulosin HCl (Tamsulosin Hcl 0.4 Mg Capsule) 0.4 mg PO BEDTIME [facility] Last Admin: 03/11/22 20:49 Dose: 0.4 mg Documented by: SCOOTER Zinc Sulfate (Zinc Sulfate 220 Mg Capsule) 220 mg PO DAILY [facility] Last Admin: 03/11/22 09:19 Dose: 220 mg Documented by: DOMINGA Labs CBC & Chem 7: 03/10/22 06:18 03/12/22 09:20 Labs: Laboratory Results - last 24 hr 03/11/22 03/11/22 03/11/22 11:07 16:00 19:47 Anion Gap Estim Creat Clear Calc Estimated GFR POC Glucose 174 H 194 H 223 H Random Glucose Osmolality Calcium Magnesium B-Natriuretic Peptide 03/12/22 03/12/22 03/12/22 04:41 07:36 09:20 Anion Gap 17 Estim Creat Clear Calc 85.5 Estimated GFR > 60 POC Glucose 187 H 174 H Random Glucose 196 H Osmolality Calcium 8.9 Magnesium 1.7 B-Natriuretic Peptide 03/12/22 03/12/22 09:20 09:20 Anion Gap Estim Creat Clear Calc Estimated GFR POC Glucose Random Glucose Osmolality 280 L Calcium Magnesium B-Natriuretic Peptide 2785 H Assessment and Plan (1) Open wound of toe: Status: Acute Plan 51M presented sob and left great toe ulcer acute on chronic systolic and diastolic chf improved, transitioned to po lasix PVD with DFU and OM of LLE Blood cultures x2 negative, id recommend Zyvox by mouth x6 weeks , continue daily foot dressing Continue dapl, statin UTI urine culture grew Klebsiella changed to by mouth Ceftin for total 10 days hyponatremia 127, monitor, fluid restrict to 1200 mL, hypomagnesemia Magnesium 1.7, placed on by mouth magnesium , monitor level. DM Blood sugar 174, continue insulin, montior opiate dependence Continue methadone COPD Complaining of shortness of breath, and cough normal lung exam will add cough medication and continue bronchodilators prn dvt prophylaxis - hep sq reason for continued hospitalization: ongoing diuresis with electrolyte abnormality need aggressive iv replacement. Quality Stroke Does the patient have a stroke diagnosis?: No VTE Prior VTE?: No VTE Risk Level:: Medical - moderate - high VTE Device Contraindication: Treatment Not Indicated VTE Drug Contraindication: N/A - Med Ordered
[2022-03-12 11:09] LABS: Glucose, Whole Blood 245 mg/dL (60-115)
[2022-03-12 11:24] VITALS: BP 130/93; PULSE 74; RESP 16; TEMP 36.4; O2SAT 94
[2022-03-12] MEDS: Famotidine 20 MG TABLET PO ×2 (12:34→20:16)
[2022-03-12] MEDS: Clopidogrel Bisulfate 75 MG TABLET PO (12:34)
[2022-03-12] MEDS: Zinc Sulfate 220 MG CAPSULE PO (12:35)
[2022-03-12] MEDS: Magnesium Oxide 400 MG TABLET 800 MG PO (12:35)
[2022-03-12] MEDS: Furosemide 40 MG TABLET PO (12:35)
[2022-03-12] MEDS: Spironolactone 25 MG TABLET 12.5 MG PO (12:35)
[2022-03-12] MEDS: Aspirin Enteric Coated 81 MG TABLET.DR PO (12:35)
[2022-03-12] MEDS: carvediloL 6.25 MG TABLET PO ×2 (12:35→20:16)
[2022-03-12 15:53] VITALS: BP 119/55; PULSE 66; RESP 17; TEMP 36.1; O2SAT 95
[2022-03-12 16:30] LABS: Glucose, Whole Blood 201 mg/dL (60-115)
[2022-03-12 19:53] LABS: Glucose, Whole Blood 157 mg/dL (60-115)
[2022-03-12] MEDS: Tamsulosin HCL 0.4 MG CAPSULE PO (20:16)
[2022-03-12] MEDS: Atorvastatin Calcium 20 MG TABLET PO (20:16)
[2022-03-12] MEDS: Montelukast Sodium 10 MG TABLET PO (20:16)
[2022-03-12 23:37] VITALS: BP 126/75; PULSE 61; RESP 16; TEMP 36.3; O2SAT 100
[2022-03-13] MEDS: Acetaminophen 325 MG TABLET 650 MG PO ×2 (01:00→07:47)
[2022-03-13] MEDS: Linezolid 600 MG TABLET PO (04:57)
[2022-03-13] MEDS: methADONE HCl 20 MG/2 ML ORAL.CONC 50 MG PO (07:46)
[2022-03-13] MEDS: Insulin Lispro 100 UNIT/ML 3 ML VIAL SUBCUT (07:47)
[2022-03-13] MEDS: Magnesium Oxide 400 MG TABLET 800 MG PO (07:47)
[2022-03-13] MEDS: Zinc Sulfate 220 MG CAPSULE PO (07:47)
[2022-03-13] MEDS: Aspirin Enteric Coated 81 MG TABLET.DR PO (07:47)
[2022-03-13] MEDS: Clopidogrel Bisulfate 75 MG TABLET PO (07:48)
[2022-03-13] MEDS: 0.9 % Sodium Chloride Flush 3 ML SYRINGE IVFLUSH (07:48)
[2022-03-13] MEDS: Furosemide 40 MG TABLET PO (07:48)
[2022-03-13] MEDS: Famotidine 20 MG TABLET PO (07:48)
[2022-03-13 08:00] VITALS: BP 127/85; PULSE 67; RESP 17; TEMP 36.4; O2SAT 99
[2022-03-13 08:16] LABS: Glucose, Whole Blood 149 mg/dL (60-115)
[2022-03-13 08:43] LABS: Anion Gap 14 (12-20); Blood Urea Nitrogen 18 mg/dL (9-16); Calcium 8.8 mg/dL (8.4-10.2); Carbon Dioxide 26 mmol/L (22-29); Chloride 91 mmol/L (96-108); Creatinine Clr Calc Pharmacy 92.9; Estimated Glomerular Filt Rate > 60; Glucose Fasting 137 mg/dL (60-99); Magnesium 1.7 mg/dL (1.6-2.6); Potassium 4.3 mmol/L (3.3-5.1); Sodium 127 mmol/L (135-145)
[2022-03-13] MEDS: Fluticasone/Vilanterol 200/25 BLST.W.DEV 1 PUFF INHALE (09:33)
[2022-03-13 09:34] VITALS: PULSE 67; RESP 17; O2SAT 98
[2022-03-13] MEDS: Spironolactone 25 MG TABLET 12.5 MG PO (09:49)
[2022-03-13] MEDS: carvediloL 6.25 MG TABLET PO (09:49)
--- NOTE | 2022-03-13 11:17 | P.F2F_ITS ---
Service Date Service Date: 03/13/22 Encounter Date of encounter: 03/13/22 Reasons for Services Signs and symptoms assessed: weakness Reason for detention: wound care, medication management, medication treatment and teach disease management Homebound: Leaving the home is medically contraindicated at this time without the asist of a device and/or another person due th the listed conditions above and below. Reason homebound: unsteady gait / fall risk Certification: Based on the above findings, I certify that this patient is confined to the home and needs intermittent detention care, physical therapy and/or speech therapy, or continues to need occupational therapy. The patient is under my care, and I have initiated the establishment of the plan of care. The patient will be followed by a physician who will periodically review the plan of care.
--- NOTE | 2022-03-13 11:18 | PM.DS ---
DS: Providers Provider Date of Service: 03/13/22 Date of admission: 03/08/22 14:53 Primary care physician: [facility] Consults: 03/08/22 14:58 Consult to Infectious Diseases Routine Consulting Provider: Zully Roblero Reason for consultation: Big toe deep infection, osteomyelitis DS: Diagnosis Discharge Diagnosis (1) Open wound of toe: Status: Acute DS: Summary Hospital Course Hospital Course: form initial hpi: Chief Complaint: Shortness of breath, worsening toe wound A 51 years old male with PMH of diabetes, PAD post amputation RLE, CHF, among others who presents to the hospital by EMS for worsening shortness of breath, edema and own his right big toe.? The patient reported that for the last week or so he has been noticing more difficulty breathing and increase coughing associated with 1 episode of vomiting last night.? Denies fever, chills, palpitation, change in bowel habit or diarrhea.? He does also report worsening of the swelling and wound in his right lower extremity as the PICC toe want is more open and he can see the bone through it with no significant drainage.? In the emergency CXR was consistent with fluid overload along with elevated BNP , lactic acidosis and low magnesium with question over possible UTI. Admitted for further evaluation and treatment. hospital course: patient was admitted for acute on chronic systoilc and diastolic chf. he was treated with iv lasix, diuresed well and will transition back to po. for his peripheral vascular disease complicated by diabetic foot ulcer and osteomyelitis of LLE, he was see by ID who recommended 6 weeks po zyvox. daily foot dressings, Dual antipletelet and statin. for his uti he grew klebsiella and was treated with ceftin, will compelete 7 more days. he was noted to have hyponatremia 127, likely due to chf, fluid restriction recommended. for his hypomagnesemia he was given magnesium supplement. for his DM will continue with insulin. for his opiate dependence he was continued methadone (last dose 03/13/22, 7:45). for his copd can continue bronchodilators. Time Spent with Patient Time attestation: Total time spent providing and/or coordinating discharge services: Discharge coordination time: Greater than 30 minutes Quality: Safe Use of Opioids Does Pt have an Active Cancer Diagnosis on the Problem List?: No Quality: Stroke Does the patient have a stroke diagnosis?: No Physical Exam Vital Signs: Vital Signs: Last Vital Signs Temp 97.5 F 03/13/22 08:00 Pulse 67 03/13/22 09:34 Resp 17 03/13/22 09:34 BP 127/85 03/13/22 08:00 Pulse Ox 99 03/13/22 08:00 BMI result Body Mass Index 34.7 General:? Alert oriented x3, no acute distress Neck no JVD, normal inspection Resp:? CTA bilateral, no wheeze, no rhonchi no accessory muscles used CVS: S1,S2,RRR GI: soft, non tender, non distended Neuro:? motor grossly intact, alert Psych: appropriate affect, appropriate insight? ext: right bka, left big toe ulcer DS: Data Data Completed and Pending Completed studies during hospitalization [Text1]: Procedures Dilation of Left Anterior Tibial Artery using Drug-Coated Balloon, Percutaneous Approach (11/24/20) Dilation of Left Peroneal Artery using Drug-Coated Balloon, Percutaneous Approach (11/24/20) Dilation of Left Peroneal Artery, Percutaneous Approach (12/30/21) Dilation of Left Popliteal Artery using Drug-Coated Balloon, Percutaneous Approach (11/24/20) Drainage of Chest Wall, Percutaneous Approach, Diagnostic (11/24/20) Drainage of Right Pleural Cavity, Percutaneous Approach (08/31/20) Excision of Left Foot Subcutaneous Tissue and Fascia, Open Approach (02/12/21) Excision of Left Metatarsal, Open Approach (12/30/21) Insertion of Infusion Device into Superior Vena Cava, Percutaneous Approach (02/12/21) Transfusion of Nonautologous Red Blood Cells into Peripheral Vein, Percutaneous Approach (01/02/21) Ultrasonography of Superior Vena Cava, Guidance (02/12/21) Labs on day of discharge: Laboratory Results - last 24 hr 03/12/22 03/12/22 03/13/22 16:26 19:49 07:52 Sodium 127 L Potassium 4.3 Chloride 91 L Carbon Dioxide 26 Anion Gap 14 BUN 18 H Creatinine 0.81 Estim Creat Clear Calc 92.9 Estimated GFR > 60 POC Glucose 201 H 157 H Fasting Glucose 137 H Calcium 8.8 Magnesium 1.7 03/13/22 08:13 Sodium Potassium Chloride Carbon Dioxide Anion Gap BUN Creatinine Estim Creat Clear Calc Estimated GFR POC Glucose 149 H Fasting Glucose Calcium Magnesium Preliminary micro results at discharge 03/08/22 13:56 Blood Culture - Preliminary Blood - Venous No growth after 48 hours. 03/08/22 12:38 Blood Culture - Preliminary Blood - Venous No growth after 48 hours. Discharge Plan Discharge Patient Disposition: Home Health Service Discharge Diagnosis: cellulitis, chf Referrals: [place],[facility] [Primary Care Provider] - 1 Week Discharge Medications: New cefuroxime axetil 250 mg Tablet 250 mg PO Q12H Qty: 14 0RF linezolid 600 mg Tablet 600 mg PO Q12H Qty: 76 0RF Continued furosemide 40 mg tablet 1 tab PO QPM 0RF carvedilol 6.25 mg tablet 1 tab PO BID 0RF atorvastatin 20 mg tablet 1 tab PO BEDTIME 0RF cetirizine 10 mg tablet 1 tab PO QAM 0RF clopidogrel 75 mg tablet 1 tab PO QAM 0RF aspirin 81 mg tablet,delayed release (DR/EC) 1 tab PO QAM 0RF spironolactone 25 mg tablet 0.5 tab PO QAM 0RF famotidine 20 mg tablet 1 tab PO BID 0RF tamsulosin 0.4 mg capsule 1 cap PO QPM 0RF lidocaine [Lidoderm] 5 % adhesive patch,medicated 1 patch topical DAILY 0RF fluticasone propion-salmeterol [Advair Diskus] 500-50 mcg/dose blister with device 1 puff PO BID 0RF losartan 25 mg tablet 1 tab PO QAM 0RF montelukast 10 mg tablet 1 tab PO QPM 0RF gabapentin 100 mg capsule 2 cap PO TID 0RF albuterol sulfate [ProAir HFA] 90 mcg/actuation HFA aerosol inhaler 2 puff inhalation Q4-6H PRN (Reason: dyspnea) 0RF fluticasone propionate 50 mcg/actuation spray,suspension 1 - 2 spray intranasal DAILY PRN (Reason: Allergy Symptoms) 0RF zinc sulfate 50 mg zinc (220 mg) capsule 1 cap PO DAILY 0RF Lantus Solostar U-100 Insulin 100 unit/mL (3 mL) insulin pen 4 unit subcut BEDTIME 0RF insulin aspart U-100 [Novolog Flexpen U-100 Insulin] 100 unit/mL (3 mL) Insulin Pen 1 sliding scale dose SUBCUT TID 0RF Protocol: Insulin Correction Scale Less than or equal to 110 ---- Give (units): 0 111 to 150 Give (units): 0 151 to 200 Give (units): 2 201 to 250 Give (units): 4 251 to 300 Give (units): 6 301 to 350 Give (units): 8 Greater than 350 Give (units): 10 Call MD if Blood Glucose > : 350 methadone 10 mg/mL Concentrate 52 mg PO DAILY 0RF Discharge Orders: Discharge Order (Routine); Ordered 03/13/22 Ordered By: Steven Brown Diet: advance to usual diet Activity on Discharge: As tolerated Stand Alone Forms: Patient Portal Discharge page Care Plan Goals: recovery Health Concerns: OM, cellutlitis, chf Plan of Treatment: 7 more days of ceftin, 6 weeks zyvox, Assessment: see above
[2022-03-13 11:28] LABS: Glucose, Whole Blood 140 mg/dL (60-115)
--- NOTE | 2022-03-13 11:56 | MHC.CM.PN ---
Patient has been medically cleared for dc to home today with services. Patient was referred to and accepted by José Miguel LOPEZ, who has been notified of today's dc both via Care Port and dc summary and face to face successfully faxed to JOHN @ [phone].Patient will dc to home today at 2 PM, via [facility].
--- NOTE | 2022-03-13 14:03 | MHC.CM.PN ---
Patient is requesting to be picked up by his Sponsor; is aware.
== END 2022-03-13 15:25 | disposition home health service (06) | DRG 344 ==
LOC: HO.ED 13:32 → HO.EDOVER 15:11 → HO.IMC 23:52
PROVIDERS: Hospitalist; Admitting Provider Student in an Organized Health Care Education/Training Program; Emergency Provider Emergency Medicine; PCP Family Medicine; Visit Provider Internal Medicine
DX: E11.69 Type 2 diabetes mellitus with other specified complication (principal); M86.172 Other acute osteomyelitis, left ankle and foot; I50.43 Acute on chronic combined systolic (congestive) and diastolic (congestive) heart failure; E87.2 Acidosis; E11.621 Type 2 diabetes mellitus with foot ulcer; E11.51 Type 2 diabetes mellitus with diabetic peripheral angiopathy without gangrene; J44.1 Chronic obstructive pulmonary disease with (acute) exacerbation; L97.529 Non-pressure chronic ulcer of other part of left foot with unspecified severity; B96.1 Klebsiella pneumoniae [K. pneumoniae] as the cause of diseases classified elsewhere; M86.672 Other chronic osteomyelitis, left ankle and foot; F11.20 Opioid dependence, uncomplicated; N39.0 Urinary tract infection, site not specified; E83.42 Hypomagnesemia; Z91.14 Patient's other noncompliance with medication regimen; Z20.822 Contact with and (suspected) exposure to COVID-19; Z88.2 Allergy status to sulfonamides; Z88.1 Allergy status to other antibiotic agents; Z88.8 Allergy status to other drugs, medicaments and biological substances; Z79.82 Long term (current) use of aspirin; Z79.02 Long term (current) use of antithrombotics/antiplatelets; Z79.4 Long term (current) use of insulin; Z79.899 Other long term (current) drug therapy
CPT/HCPCS: 36415; 71045; 73660; 80048; 80076; 81001; 82947; 83605; 83690; 83735; 83880; 83930; 84484; 85025; 85027; 85610; 85652; 85730; 86140; 87040; 87086; 87088; 87186; 87635; 93005; 94640; 96374; 96375; 99285; J0692; J0696; J1940; J2405; J2930; J3360; J3475

== ENCOUNTER 2022-03-29 19:32 | Inpatient (IN) | payer MEDICAID, SELFPAY ==
--- NOTE | ~2022-03-29 | CT_ITS ---
EXAMINATION: CT ABDOMEN AND PELVIS WITHOUT CONTRAST CLINICAL INFORMATION: Bilateral scrotal swelling. Penis patent. COMPARISON: 10/08/2021 TECHNIQUE: Multidetector volumetric imaging was performed from the superior aspect of the liver through the pubic symphysis. Sagittal and coronal reformatted images were obtained on the technologist's workstation. This CT examination was performed using dose optimization techniques as appropriate, variously including the following: *Automated exposure control *Adjustment of mA and/or kV according to patient size (this includes techniques or standardized protocols for targeted exams where dose is matched to indication/reason for exam; i.e. extremities or head) *Use of iterative reconstruction technique DLP: 962 mGy-cm FINDINGS: LUNG BASES: Prominent heart with coronary artery calcification. Small right pleural effusion. LIVER, GALLBLADDER, AND BILIARY TREE: The liver is normal in size, shape, and attenuation. No focal hepatic lesion or biliary ductal dilatation is present. Stone filled gallbladder. No wall thickening or adjacent inflammation. PANCREAS: Mild atrophy with no focal abnormality. SPLEEN: Unremarkable. ADRENAL GLANDS: Unremarkable. KIDNEYS AND URETERS: The kidneys are normal in size, shape, and attenuation. No hydronephrosis, hydroureter, or calculi seen. No perinephric stranding. Fairly extensive vascular calcifications. BLADDER: Decompressed with Alberts catheter in place. GASTROINTESTINAL TRACT: The stomach is unremarkable. Normal caliber small bowel. No obstruction. Normal appendix. No colonic wall thickening or inflammation. No free air. Trace pelvic free fluid. ABDOMINAL WALL: No significant hernia. Anasarca. There is significant edema within the penis as well as the scrotum. Small hydroceles. No gas in the soft tissues. LYMPH NODES: Normal. VASCULAR: Normal caliber aorta with mild to moderate atherosclerotic calcification. PELVIC VISCERA: The prostate and seminal vesicles are unremarkable. OSSEOUS STRUCTURES: No acute or suspicious osseous abnormality. Mild degenerative change in the spine. CT/CT abdomen pelvis wo con IMPRESSION: Significant edema of the penis and scrotum. Small hydroceles. No soft tissue gas. Small right pleural effusion. Small volume ascites. Anasarca. Fleischner guidelines were followed.
[2022-03-29 19:48] VITALS: BP 140/85; BP 152/88; PULSE 93; PULSE 96; RESP 16; TEMP 36.1; O2SAT 98; BMI 28.5
[2022-03-29 20:29] VITALS: BP 136/100; PULSE 85; RESP 16; TEMP 36.8; O2SAT 98
--- NOTE | 2022-03-29 21:49 | ED.MALEGU ---
HPI - Male Genitourinary General Chief complaint: Urogenital-Male Stated complaint: NAUSEA,VOMITING,CONFUSION,LOW BS 68 PER EMS Time Seen by Provider: 03/29/22 19:51 Source: patient and EMS Mode of arrival: EMS Limitations: other (Patient poor historian) History of Present Illness HPI Narrative: 51-year-old male presenting to the emergency department complaints of redness, swelling, warmth to groin, penis, scrotum x4 days progressively worsening. Patient reports difficulties with urination because he tells me when he pees it haney and it hurts therefore he has been peeing less than usual. Patient reports 10/10 pain. He denies any problems with his rectum. He reports that his penis has yellow/green and bloody discharge coming from it. Has no kids Patient tells me he has no concerns for STDs or STIs. Patient reports subjective fevers and chills. Patient reported to nurse nausea and vomiting however denying to myself. Denies chest pain, shortness of breath, headache, dizziness, vision changes, difficulties with defecation, rectal pain, itching, discharge. Patient tells me he did not put any foreign bodies inside his penis. Patient denies any recent antibiotics use, denies recent medication changes. MD Complaint: testicle swelling, penile discharge and dysuria Onset (ago): day(s) (4) Duration: constant Location: penis, right testicle, left testicle, right inguinal region and left inguinal region Severity: severe Severity scale (1-10): >10 Quality: burning and other (Stinging) Relieving factors: none Exacerbating factors: none Associated symptoms: Reports denies other symptoms Related Data Home Medications Medication Instructions Recorded Confirmed albuterol sulfate 90 mcg/actuation 2 puff INHALATION Q4-6H PRN 03/08/22 03/08/22 aerosol inhaler (ProAir HFA) aspirin 81 mg tablet,delayed 1 tab PO QAM 03/08/22 03/08/22 release atorvastatin 20 mg tablet 1 tab PO BEDTIME 03/08/22 03/08/22 carvedilol 6.25 mg tablet 1 tab PO BID 03/08/22 03/08/22 cetirizine 10 mg tablet 1 tab PO QAM 03/08/22 03/08/22 clopidogrel 75 mg tablet 1 tab PO QAM 03/08/22 03/08/22 famotidine 20 mg tablet 1 tab PO BID 03/08/22 03/08/22 fluticasone 500 mcg-salmeterol 50 1 puff PO BID 03/08/22 03/08/22 mcg/dose blistr powdr for inhalation (Advair Diskus) fluticasone propionate 50 1 - 2 spray INTRANASAL DAILY PRN 03/08/22 03/08/22 mcg/actuation nasal spray,suspension furosemide 40 mg tablet 1 tab PO QPM 03/08/22 03/08/22 gabapentin 100 mg capsule 2 cap PO TID 03/08/22 03/08/22 insulin aspart U-100 100 unit/mL 1 sliding scale dose SUBCUT TID 03/08/22 03/08/22 (3 mL) subcutaneous pen (Novolog Flexpen U-100 Insulin aspart) insulin glargine 100 unit/mL (3 4 unit SUBCUT BEDTIME 03/08/22 03/08/22 mL) subcutaneous pen (Lantus Solostar U-100 Insulin) lidocaine 5 % topical patch 1 patch TOPICAL DAILY 03/08/22 03/08/22 (Lidoderm) losartan 25 mg tablet 1 tab PO QAM 03/08/22 03/08/22 methadone 10 mg/mL oral concentrate 52 mg PO DAILY 03/08/22 03/09/22 montelukast 10 mg tablet 1 tab PO QPM 03/08/22 03/08/22 spironolactone 25 mg tablet 0.5 tab PO QAM 03/08/22 03/08/22 tamsulosin 0.4 mg capsule 1 cap PO QPM 03/08/22 03/08/22 zinc sulfate 50 mg zinc (220 mg) 1 cap PO DAILY 03/08/22 03/08/22 capsule Previous Rx's Medication Instructions Recorded cefuroxime axetil 250 mg tablet 250 mg PO Q12H #14 tab 03/13/22 linezolid 600 mg tablet 600 mg PO Q12H #76 tab 03/13/22 Allergies Allergy/AdvReac Type Severity Reaction Status Date / Time ertapenem Allergy Intermediate Hives Verified 02/21/22 18:40 vancomycin [VANCOMYCIN] Allergy Intermediate HIVES Verified 02/21/22 18:40 Chocolate Allergy Unknown Rash Verified 02/21/22 18:40 ciprofloxacin [From CIPRO] Allergy Unknown SWELLING Verified 02/21/22 18:40 hydrocortisone [Cipro HC] Allergy Unknown Unknown Verified 02/21/22 18:40 sulfamethoxazole Allergy Unknown rash Verified 02/21/22 18:40 [From BACTRIM] trimethoprim [From BACTRIM] Allergy Unknown rash Verified 02/21/22 18:40 turkey [TURKEY] Allergy Unknown RASH Verified 02/21/22 18:40 Review of Systems Review of Systems: Constitutional : No Weight loss, No Fever, No Chills, No Fatigue, No Malaise ENT/Mouth : No sore throat, No Rhinorrhea Eyes: No Eye Pain, No Swelling, No Redness Cardiovascular : No Chest Pain, No SOB, No Dyspnea on Exertion, No Orthopnea, No Edema, No Palpitations Respiratory : No Cough, No Sputum, No Wheezing Gastrointestinal : No Nausea, No Vomiting, No Diarrhea, No Constipation, No abdominal Pain, No Hematochezia, No Melena Genitourinary : + Dysuria, No Urinary Frequency, No Hematuria, Musculoskeletal : No joint pain, No Myalgias, No Joint Swelling Skin : No Skin Lesions, No rash Neuro : No Weakness, No Numbness, No Dizziness, No Headache Psych : No Anxiety/Panic, No Depression All other systems reviewed and are negative Yes all other systems are reviewed and are negative [facility] Past Medical History Attestation statement: The following information was validated with the patient. Source: old records reviewed and nursing notes reviewed Medical History Abscess or cellulitis of foot Acute on chronic anemia Acute on chronic combined systolic and diastolic congestive heart failure Acute on chronic HFrEF (heart failure with reduced ejection fraction) Acute respiratory failure with hypoxia Asthma Bipolar 1 disorder BPH (benign prostatic hyperplasia) CHF exacerbation Cholelithiasis Closed wedge compression fracture of T9 vertebra COPD (chronic obstructive pulmonary disease) Diabetes mellitus Diabetes mellitus, type 2 Elevated troponin GERD (gastroesophageal reflux disease) Hyperlipidemia Ischemic cardiomyopathy Lymphadenopathy Opiate abuse, continuous Osteomyelitis Peripheral arterial disease Peripheral neuropathy Peripheral vascular disease Substance abuse Tracheomalacia, acquired Surgical History History of amputation History of laminectomy History of transurethral resection of prostate Hx of BKA Family History Family History Father Chronic mental illness Hypertension Asthma Stroke Mother Asthma Diabetes Coronary artery disease Social History Social History Household Members: None Housing: Apartment Housing Other:: IN A LITTLE ROOM Do you presently have visiting nurse or other home services: Yes Alcohol intake: unknown Patient Tobacco Use Status: Never used Tobacco e-Cigarette/Vaping Use: Never Used Second Hand Smoke Exposure: No Use of substances other than those prescribed or required for medical reasons: Yes Substance Use Type: Opiates Substance Use Frequency: Chronic Longstanding Last Used Substance: Unknown Advance Directives: Yes Advance Directives on File: Yes Advance Directives Date on File: 11/24/20 service: No Current occupational status: disabled Physical Exam Vital Signs: Vital Signs: Last Vital Signs Temp 98.1 F 03/29/22 23:37 Pulse 87 03/30/22 00:17 Resp 16 03/30/22 00:17 BP 128/83 03/30/22 00:17 Pulse Ox 92 03/30/22 00:17 BMI result Body Mass Index 28.5 VSS Appearance: Alert.? Oriented X3.? No acute distress.? Head: Normocephalic, atraumatic, no step-offs or deformities Eyes: Pupils equal, round and reactive to light.? ENT: Pharynx normal.? Neck: Normal inspection.? Neck supple.? CVS: Normal heart rate and rhythm.? Pulses normal.? Respiratory: No respiratory distress.? Breath sounds normal.? Abdomen: Soft and nontender.? Skin: Skin warm and dry.? Normal skin color.? Normal skin turgor.?+ redness, warmth and swelling to penis, scrotum. Green/yellow penile discharge expressed on palpation . Rectum within normal limits Extremities: No lower extremity edema.? No calf ttp. 5/5 strength to bilateral upper and lower extremities Neuro: Oriented X 3.? No motor deficit.? No sensory deficit. CN 2-12 intact Course Reevaluation(s) Reevaluation #1: Delay in obtaining labs due to patient being a difficult stick, I was successfully able to start a 20 G IV in the right forearm. Patient's CBC appears to be at baseline. Chemistry with no acute electrolyte abnormalities requiring intervention. Patient's anion gap elevated. Lactic acid elevated 8.5. Patient is suspected to have infection at this time and is receiving a sepsis fluid bolus. CRP markedly elevated 7.98. Because of these lab values concern for 4 years gangrene therefore emergent call out to surgery has been made at this time. Infectious disease recommends fluconazole 100 mg. Discuss this case with surgery who looked at images and chart and says based off of the images in the chart low suspicion for Robbi gangrene. However surgery will follow this patient and see them tomorrow morning. He will review the CT scan when available. Time: 23:26 Reevaluation #2: CT of the abdomen and pelvis with significant edema penis and scrotum. Small hydroceles. No soft tissue gas. Small right pleural effusion. Small volume ascites. Anasarca. This time patient will be admitted to the hospitalist team. He will be followed by Urology, surgery. Time: 00:39 MDM - Male Genitourinary MDM Narrative Medical decision making narrative: 2212 51-year-old male presents with swelling, pain and redness to his scrotum, penis and perineal area. X4 days worsening. Physical examination significant for an erythematous, warm, tender penis, scrotum, groin area. Pictures attached in the chart. History and physical examination concerning for infection. Blood cultures and lactic acid ordered as well as fluids, antibiotics. Patient very difficult stick therefore delay in obtaining blood cultures, lactic. Immediately upon patient's arrival Dr. Donovan urology placed a Alberts, and evaluated patient consistent with balanitis. He recommends hospital admission. Medical Records Attestation: I reviewed the patient's medical records. Lab Data Attestation: I reviewed the patient's lab results. Result diagrams: 03/29/22 22:13 03/29/22 22:13 Labs: Lab Results 03/29/22 03/29/22 03/29/22 Range/Units 21:58 21:58 22:13 WBC 7.6 (4.8-10.8) X10*3/uL RBC 5.01 (4.60-5.80) X10*6/uL Hgb 13.3 L (14.0-18.0) g/dl Hct 42.9 (42.0-52.0) % MCV 85.6 (80.0-98.0) fL MCH 26.5 L (27.0-33.0) pg MCHC 31.0 (31.0-36.0) g/dl RDW 18.1 H (11.0-16.0) % Plt Count 101 L D (160-400) X10*3/uL MPV 9.8 (9.4-12.4) fL Immature Gran % (Auto) 0.4 (0.0-0.4) % Neut % (Auto) 83.3 H (45-73) % Lymph % (Auto) 10.5 L (20-40) % [place] % (Auto) 5.0 (2-11) % Eos % (Auto) 0.3 (0-4) % Baso % (Auto) 0.5 (0-2) % Lymph # (Auto) 0.8 L (1.2-4.9) X10*3/uL [place] # (Auto) 0.4 (0.1-1.2) X10*3/uL Eos # (Auto) 0.0 (0.0-0.4) X10*3/uL Baso # (Auto) 0.0 (0.0-0.2) X10*3/uL Abs Immat Gran (auto) 0.03 (0.00-0.03) X10*3/uL Absolute Neuts (auto) 6.3 (2.0-8.3) x10*3/uL Absolute Nucleated RBC 0.000 (0.0-0.012) X10*3/uL Nucleated RBC % (auto) 0.0 (0.0-0.2) /100WBC Sodium (135-145) mmol/L Potassium (3.3-5.1) mmol/L Chloride (96-108) mmol/L Carbon Dioxide (22-29) mmol/L Anion Gap (12-20) BUN (9-16) mg/dL Creatinine (0.5-1.4) mg/dL Estim Creat Clear Calc Estimated GFR Random Glucose (60-115) mg/dL Lactic Acid (0.5-2.0) mmol/L Calcium (8.4-10.2) mg/dL Magnesium (1.6-2.6) mg/dL Total Bilirubin (0.0-1.0) mg/dL AST (5-37) U/L ALT (0-40) U/L Alkaline Phosphatase (39-117) U/L Total Creatine Kinase (38-174) U/L C-Reactive Protein (< or = 0.50) mg/dL Total Protein (6.5-8.0) g/dL Albumin (3.5-5.0) g/dL Urine Color DK YELLOW Urine Appearance CLEAR Urine pH 5.5 (5.0-8.0) Ur Specific [place] >= 1.030 H (1.005-1.025) Urine Protein 3+ H (NEG-TRACE) MG/DL Urine Glucose (UA) NEG (NEG) MG/DL Urine Ketones NEG (NEG) MG/DL Urine Blood 1+ H (NEG) Urine Nitrite NEG (NEG) Ur Leukocyte Esterase NEG (NEG) Urine RBC 1-4 (0) /HPF Urine WBC 1-4 (0-4) /HPF Ur Squamous Epith Cells 1+ /LPF Urine Bacteria NONE /LPF Hyaline Casts 1-4 /LPF Urine Mucus 2+ /LPF COVID-19 (JAMILA) Negative (Negative) COVID-19 Clin Com See Note 03/29/22 03/29/22 Range/Units 22:13 22:13 WBC (4.8-10.8) X10*3/uL RBC (4.60-5.80) X10*6/uL Hgb (14.0-18.0) g/dl Hct (42.0-52.0) % MCV (80.0-98.0) fL MCH (27.0-33.0) pg MCHC (31.0-36.0) g/dl RDW (11.0-16.0) % Plt Count (160-400) X10*3/uL MPV (9.4-12.4) fL Immature Gran % (Auto) (0.0-0.4) % Neut % (Auto) (45-73) % Lymph % (Auto) (20-40) % [place] % (Auto) (2-11) % Eos % (Auto) (0-4) % Baso % (Auto) (0-2) % Lymph # (Auto) (1.2-4.9) X10*3/uL [place] # (Auto) (0.1-1.2) X10*3/uL Eos # (Auto) (0.0-0.4) X10*3/uL Baso # (Auto) (0.0-0.2) X10*3/uL Abs Immat Gran (auto) (0.00-0.03) X10*3/uL Absolute Neuts (auto) (2.0-8.3) x10*3/uL Absolute Nucleated RBC (0.0-0.012) X10*3/uL Nucleated RBC % (auto) (0.0-0.2) /100WBC Sodium 137 (135-145) mmol/L Potassium 4.7 (3.3-5.1) mmol/L Chloride 98 (96-108) mmol/L Carbon Dioxide 20 L (22-29) mmol/L Anion Gap 24 H (12-20) BUN 18 H (9-16) mg/dL Creatinine 0.95 (0.5-1.4) mg/dL Estim Creat Clear Calc 89.4 Estimated GFR > 60 Random Glucose 78 D (60-115) mg/dL Lactic Acid 8.5 H* (0.5-2.0) mmol/L Calcium 10.1 D (8.4-10.2) mg/dL Magnesium 1.8 (1.6-2.6) mg/dL Total Bilirubin 2.4 H (0.0-1.0) mg/dL AST 28 (5-37) U/L ALT 19 (0-40) U/L Alkaline Phosphatase 99 (39-117) U/L Total Creatine Kinase 51 D (38-174) U/L C-Reactive Protein 7.98 H (< or = 0.50) mg/dL Total Protein 7.4 (6.5-8.0) g/dL Albumin 3.6 (3.5-5.0) g/dL Urine Color Urine Appearance Urine pH (5.0-8.0) Ur Specific [place] (1.005-1.025) Urine Protein (NEG-TRACE) MG/DL Urine Glucose (UA) (NEG) MG/DL Urine Ketones (NEG) MG/DL Urine Blood (NEG) Urine Nitrite (NEG) Ur Leukocyte Esterase (NEG) Urine RBC (0) /HPF Urine WBC (0-4) /HPF Ur Squamous Epith Cells /LPF Urine Bacteria /LPF Hyaline Casts /LPF Urine Mucus /LPF COVID-19 (JAMILA) (Negative) COVID-19 Clin Com Critical Care Time Critical Care Time Critical Care Time: Yes Total Critical Care Time: 75 Attestation: I attest to this time spent taking care of the patient, obtaining history, physical, reviewing labs, imaging, speaking to my attending, speaking to specialist. Discharge Plan Discharge Clinical Impression: Balanitis, Cellulitis Patient Disposition: Still a Patient Prescriptions: No [facility] furosemide 40 mg tablet 1 tab PO QPM 0RF carvedilol 6.25 mg tablet 1 tab PO BID 0RF atorvastatin 20 mg tablet 1 tab PO BEDTIME 0RF cetirizine 10 mg tablet 1 tab PO QAM 0RF clopidogrel 75 mg tablet 1 tab PO QAM 0RF aspirin 81 mg tablet,delayed release (DR/EC) 1 tab PO QAM 0RF spironolactone 25 mg tablet 0.5 tab PO QAM 0RF famotidine 20 mg tablet 1 tab PO BID 0RF tamsulosin 0.4 mg capsule 1 cap PO QPM 0RF lidocaine [Lidoderm] 5 % adhesive patch,medicated 1 patch topical DAILY 0RF fluticasone propion-salmeterol [Advair Diskus] 500-50 mcg/dose blister with device 1 puff PO BID 0RF losartan 25 mg tablet 1 tab PO QAM 0RF montelukast 10 mg tablet 1 tab PO QPM 0RF gabapentin 100 mg capsule 2 cap PO TID 0RF albuterol sulfate [ProAir HFA] 90 mcg/actuation HFA aerosol inhaler 2 puff inhalation Q4-6H PRN (Reason: dyspnea) 0RF fluticasone propionate 50 mcg/actuation spray,suspension 1 - 2 spray intranasal DAILY PRN (Reason: Allergy Symptoms) 0RF zinc sulfate 50 mg zinc (220 mg) capsule 1 cap PO DAILY 0RF Lantus Solostar U-100 Insulin 100 unit/mL (3 mL) insulin pen 4 unit subcut BEDTIME 0RF insulin aspart U-100 [Novolog Flexpen U-100 Insulin] 100 unit/mL (3 mL) Insulin Pen 1 sliding scale dose SUBCUT TID 0RF Protocol: Insulin Correction Scale Less than or equal to 110 ---- Give (units): 0 111 to 150 Give (units): 0 151 to 200 Give (units): 2 201 to 250 Give (units): 4 251 to 300 Give (units): 6 301 to 350 Give (units): 8 Greater than 350 Give (units): 10 Call MD if Blood Glucose > : 350 methadone 10 mg/mL Concentrate 52 mg PO DAILY 0RF cefuroxime axetil 250 mg Tablet 250 mg PO Q12H Qty: 14 0RF linezolid 600 mg Tablet 600 mg PO Q12H Qty: 76 0RF
[2022-03-29 22:18] LABS: MANUAL DIFF FLAG NO
[2022-03-29 22:30] LABS: Basophils Percent Auto 0.5 % (0-2); Eosinophils Percent Auto 0.3 % (0-4); Hematocrit 42.9 % (42.0-52.0); Hemoglobin 13.3 g/dl (14.0-18.0); Imm Gran Abs Auto 0.03 X10*3/uL (0.00-0.03); Imm Gran Pct Auto 0.4 % (0.0-0.4); Lymphocytes Absolute Auto 0.8 X10*3/uL (1.2-4.9); Lymphocytes Percent Auto 10.5 % (20-40); Mean Corpuscular Hemoglobin 26.5 pg (27.0-33.0); Mean Corpuscular Volume 85.6 fL (80.0-98.0); Mean Platelet Volume 9.8 fL (9.4-12.4); Monocytes Absolute Auto 0.4 X10*3/uL (0.1-1.2); Neutrophils Absolute Auto 6.3 x10*3/uL (2.0-8.3); Neutrophils Percent Auto 83.3 % (45-73); Platelet Count 101 X10*3/uL (160-400); Red Blood Count 5.01 X10*6/uL (4.60-5.80); Red Cell Distribution Width 18.1 % (11.0-16.0); White Blood Count 7.6 X10*3/uL (4.8-10.8)
[2022-03-29 22:31] LABS: Appearance Urine CLEAR; Color Urine DK YELLOW; Glucose Urine UA NEG (NEG); Leukocyte Esterase Urine NEG (NEG); Nitrite Urine NEG (NEG); PH 5.5 (5.0-8.0); Specific Gravity - Urine >= 1.030 (1.005-1.025); UACC Culture Trigger NO; Urine Blood 1+ (NEG); Urine Ketones NEG (NEG); Urine Protein 3+ MG/DL (NEG-TRACE)
[2022-03-29 22:47] LABS: Squamous Epithelial Cell Urine 1+ /LPF
[2022-03-29 22:48] LABS: Mucus Urine 2+ /LPF
[2022-03-29 22:49] LABS: Lactic Acid 8.5 mmol/L (0.5-2.0)
[2022-03-29 23:00] LABS: Alanine Aminotransferase 19 U/L (0-40); Albumin Level 3.6 g/dL (3.5-5.0); Alkaline Phosphatase 99 U/L (39-117); Anion Gap 24 (12-20); Aspartate Amino Transferase 28 U/L (5-37); Bilirubin Total 2.4 mg/dL (0.0-1.0); Blood Urea Nitrogen 18 mg/dL (9-16); C Reactive Protein 7.98 mg/dL (< or = 0.50); Calcium 10.1 mg/dL (8.4-10.2); Carbon Dioxide 20 mmol/L (22-29); Chloride 98 mmol/L (96-108); Creatinine Clr Calc Pharmacy 89.4; Estimated Glomerular Filt Rate > 60; Glucose Random 78 mg/dL (60-115); Magnesium 1.8 mg/dL (1.6-2.6); Potassium 4.7 mmol/L (3.3-5.1); Sodium 137 mmol/L (135-145); Total Protein 7.4 g/dL (6.5-8.0)
[2022-03-29 23:24] LABS: COVID-19 Test Negative (Negative); IDNOW Serial# 55D5AD1C
[2022-03-29 23:37] VITALS: BP 147/91; PULSE 91; RESP 14; TEMP 36.7; O2SAT 99
[2022-03-30] VITALS (11 sets, daily range): BP systolic 119–145; BP diastolic 42–90; PULSE 78–99; RESP 14–18; TEMP 36.3–37; O2SAT 92–100
[2022-03-30 00:16] LABS: Reflex Lactate? Lactic Acid Added
--- NOTE | 2022-03-30 00:45 | PM.IMHP ---
History of Present Illness Date of Service: 03/30/22 Chief Complaint: Pain and swelling of the scrotum/penis. 51-year-old male with a past medical history of hypertension, hyperlipidemia, diabetes, CHF, BPH, compression fracture of T9, peripheral vascular disease, asthma, bipolar, history of osteomyelitis, opiate dependence presented to the hospital today with a chief complaint of pain and swelling of the scrotum as well as the penis. Patient reports that he has been having these symptoms for the past 4 days. Noted to have redness, swelling, pain and his penis. Also noted swelling of the scrotum. Denies any burning or frequency. Denies any abdominal pain. Denies any fevers and chills. Denies any chest pain or palpitations. Review of all other systems is negative except mentioned above ER course: Per ER team patient noted to have scrotal swelling as well as erythema of the glans concern for scrotal cellulitis/balanitis. Discussed with Dr. Donovan who evaluated the patient and suggested admission to the medicine service; noted to have lactic acidosis of 8.5; discussed with general surgery who mentioned less concern for phone is gangrene at this point. Patient was started on IV antibiotics; ER team also spoke to ID and who suggested to stat a Diflucan. Admitted for further management. [facility] Medical History Abscess or cellulitis of foot Acute on chronic anemia Acute on chronic combined systolic and diastolic congestive heart failure Acute on chronic HFrEF (heart failure with reduced ejection fraction) Acute respiratory failure with hypoxia Asthma Bipolar 1 disorder BPH (benign prostatic hyperplasia) CHF (congestive heart failure) CHF (congestive heart failure) CHF exacerbation Cholelithiasis Closed wedge compression fracture of T9 vertebra COPD (chronic obstructive pulmonary disease) Diabetes mellitus Diabetes mellitus, type 2 Elevated troponin GERD (gastroesophageal reflux disease) Hyperlipidemia Ischemic cardiomyopathy Lymphadenopathy Opiate abuse, continuous Osteomyelitis Osteomyelitis of great toe Peripheral arterial disease Peripheral neuropathy Peripheral vascular disease Substance abuse Tracheomalacia, acquired Transaminitis Family History Father Chronic mental illness Hypertension Asthma Stroke Mother Asthma Diabetes Coronary artery disease Surgical History History of amputation History of laminectomy History of transurethral resection of prostate Hx of BKA Social History Household Members: Unknown / Unable to assess Housing: House Housing Other:: IN A LITTLE ROOM Do you presently have visiting nurse or other home services: No Unable to assess alcohol history related to: Refusing to respond Alcohol intake: unknown Patient Tobacco Use Status: Never used Tobacco e-Cigarette/Vaping Use: Never Used Second Hand Smoke Exposure: No Substance Use Type: Marijuana Advance Directives Date on File: 11/24/20 service: No Current occupational status: unemployed and disabled Meds Allergies Allergy/AdvReac Type Severity Reaction Status Date / Time ertapenem Allergy Intermediate Hives Verified 02/21/22 18:40 vancomycin [VANCOMYCIN] Allergy Intermediate HIVES Verified 02/21/22 18:40 Chocolate Allergy Unknown Rash Verified 02/21/22 18:40 ciprofloxacin [From CIPRO] Allergy Unknown SWELLING Verified 02/21/22 18:40 hydrocortisone [Cipro HC] Allergy Unknown Unknown Verified 02/21/22 18:40 sulfamethoxazole Allergy Unknown rash Verified 02/21/22 18:40 [From BACTRIM] trimethoprim [From BACTRIM] Allergy Unknown rash Verified 02/21/22 18:40 turkey [TURKEY] Allergy Unknown RASH Verified 02/21/22 18:40 Active Medications: Current Medications Fluconazole 100 mg/ IV (Miscellaneous Supplies) 50 mls @ 50 mls/hr IV Q24H [facility] Pharmacy Consult (Consult Rx Perform Med Rec) 1 each MISCELLANE ONCE PRN PRN Reason: Consult order Home Medications Medication Instructions Recorded Confirmed Last Taken Type albuterol sulfate 90 mcg/actuation 2 puff inhalation Q4-6H PRN dyspnea 05/28/22 05/28/22 Unknown History aerosol inhaler (ProAir HFA) aspirin 81 mg tablet,delayed 1 tab PO QAM 05/28/22 05/28/22 Unknown History release atorvastatin 20 mg tablet 1 tab PO BEDTIME 05/28/22 05/28/22 Unknown History bumetanide 2 mg tablet 1 tab PO BID 05/28/22 05/28/22 Unknown History carvedilol 6.25 mg tablet 6.25 mg PO BID 05/28/22 05/28/22 Unknown History clopidogrel 75 mg tablet 1 tab PO DAILY 05/28/22 05/28/22 Unknown History famotidine 20 mg tablet 20 mg PO BID 05/28/22 05/28/22 Unknown History fluticasone 500 mcg-salmeterol 50 1 puff PO BID 05/28/22 05/28/22 Unknown History mcg/dose blistr powdr for inhalation (Advair Diskus) fluticasone propionate 50 1 - 2 spray intranasal DAILY PRN 05/28/22 05/28/22 Unknown History mcg/actuation nasal Allergy Symptoms spray,suspension gabapentin 100 mg capsule 2 cap PO TID 05/28/22 05/28/22 Unknown History insulin aspart U-100 100 unit/mL 5 unit subcut TID 05/28/22 05/28/22 Unknown History (3 mL) subcutaneous pen (Novolog Flexpen U-100 Insulin aspart) lidocaine 5 % topical patch 1 patch topical DAILY 05/28/22 05/28/22 Unknown History (Lidoderm) methadone 10 mg/mL oral concentrate 52 mg PO DAILY 05/28/22 05/28/22 Unknown History montelukast 10 mg tablet 1 tab PO QPM 05/28/22 05/28/22 Unknown History sacubitril 24 mg-valsartan 26 mg 1 tab PO BID 05/28/22 05/28/22 Unknown History tablet (Entresto) spironolactone 25 mg tablet 12.5 mg PO DAILY 05/28/22 05/28/22 Unknown History tamsulosin 0.4 mg capsule 1 cap PO QPM 05/28/22 05/28/22 Unknown History zinc sulfate 50 mg zinc (220 mg) 1 cap PO DAILY 05/28/22 05/28/22 Unknown History capsule Physical Exam Vital Signs and Narrative: Vital Signs: Last Vital Signs Temp 98.1 F 03/29/22 23:37 Pulse 87 03/30/22 00:17 Resp 16 03/30/22 00:17 BP 128/83 03/30/22 00:17 Pulse Ox 92 03/30/22 00:17 BMI result Body Mass Index 28.5 Gen: Appears be in no acute distress HEENT: NCAT, Moist mucosa. Pulmonary: Vesicular breath sounds, fair air entry CVS: Normal S1-S2 Abdomen: BS+, Soft, Nontender Extremities: Warm well perfused Neuro: Alert and awake. Genitourinary: Examined along with the brine plant operator. Noted to have scrotal erythema, tenderness, also noted glans penis erythema; Alberts catheter in place. Results Labs CBC and Chem 7: 04/04/22 06:04 04/04/22 06:04 Labs: Laboratory Results - last 24 hr 03/29/22 03/29/22 03/29/22 21:58 21:58 22:13 MCV 85.6 MCH 26.5 L MCHC 31.0 RDW 18.1 H Plt Count 101 L D MPV 9.8 Immature Gran % (Auto) 0.4 Neut % (Auto) 83.3 H Lymph % (Auto) 10.5 L [place] % (Auto) 5.0 Eos % (Auto) 0.3 Baso % (Auto) 0.5 Lymph # (Auto) 0.8 L [place] # (Auto) 0.4 Eos # (Auto) 0.0 Baso # (Auto) 0.0 Abs Immat Gran (auto) 0.03 Absolute Neuts (auto) 6.3 Absolute Nucleated RBC 0.000 Nucleated RBC % (auto) 0.0 Anion Gap Estim Creat Clear Calc Estimated GFR Random Glucose Lactic Acid Calcium Magnesium Total Bilirubin AST ALT Alkaline Phosphatase Total Creatine Kinase C-Reactive Protein Total Protein Albumin Urine Color DK YELLOW Urine Appearance CLEAR Urine pH 5.5 Ur Specific [place] >= 1.030 H Urine Protein 3+ H Urine Glucose (UA) NEG Urine Ketones NEG Urine Blood 1+ H Urine Nitrite NEG Ur Leukocyte Esterase NEG Urine RBC 1-4 Urine WBC 1-4 Ur Squamous Epith Cells 1+ Urine Bacteria NONE Hyaline Casts 1-4 Urine Mucus 2+ COVID-19 ([facility]) Negative COVID-19 Clin Com See Note 03/29/22 03/29/22 22:13 22:13 MCV MCH MCHC RDW Plt Count MPV Immature Gran % (Auto) Neut % (Auto) Lymph % (Auto) [place] % (Auto) Eos % (Auto) Baso % (Auto) Lymph # (Auto) [place] # (Auto) Eos # (Auto) Baso # (Auto) Abs Immat Gran (auto) Absolute Neuts (auto) Absolute Nucleated RBC Nucleated RBC % (auto) Anion Gap 24 H Estim Creat Clear Calc 89.4 Estimated GFR > 60 Random Glucose 78 D Lactic Acid 8.5 H* Calcium 10.1 D Magnesium 1.8 Total Bilirubin 2.4 H AST 28 ALT 19 Alkaline Phosphatase 99 Total Creatine Kinase 51 D C-Reactive Protein 7.98 H Total Protein 7.4 Albumin 3.6 Urine Color Urine Appearance Urine pH Ur Specific [place] Urine Protein Urine Glucose (UA) Urine Ketones Urine Blood Urine Nitrite Ur Leukocyte Esterase Urine RBC Urine WBC Ur Squamous Epith Cells Urine Bacteria Hyaline Casts Urine Mucus COVID-19 ([facility]ILA) COVID-19 Clin Com Imaging Radiologist's Impressions: Impressions Abdomen/Pelvis CT 03/30/22 00:00 IMPRESSION: Significant edema of the penis and scrotum. Small hydroceles. No soft tissue gas. Small right pleural effusion. Small volume ascites. Anasarca. Fleischner guidelines were followed. Assessment and Plan (1) Balanitis: Status: Resolved (2) Cellulitis: Status: Resolved Plan 51-year-old male with a past medical history of hypertension, hyperlipidemia, diabetes, CHF, BPH, compression fracture of T9, peripheral vascular disease, asthma, bipolar, history of osteomyelitis, opiate dependence presented to the hospital today with a chief complaint of pain and swelling of the scrotum as well as the penis. Scrotal cellulitis: Balanitis: CT scan showed significant edema of the penis and scrotum, small hydroceles, no tissue gas. Patient was evaluated by Dr. Donovan at bedside who suggested admission to the medicine service and IV antibiotics. General surgery Dr. Lima was also notified-mentioned less concern for Robbi's gangrene. Id was notified-recommended to add Diflucan. Continue IV Zosyn and doxy History of diabetes: Insulin sliding scale History of opiate dependence: Patient on methadone. Addiction Medicine consult. For all other chronic conditions, home medications will be continued once med rec is done. DVT prophylaxis: Lovenox Code status: Full code Quality Stroke Does the patient have a stroke diagnosis?: No VTE Prior VTE?: No VTE Risk Level:: Medical - moderate - high VTE Device Contraindication: Treatment Not Indicated VTE Drug Contraindication: N/A - Med Ordered
[2022-03-30 00:58] LABS: ~Lactic Acid-LAB USE ONLY 8.4 mmol/L (0.5-2.0)
[2022-03-30] MEDS: Piperacillin Sodium/Tazobactam 3.375 GM in 0.9 % Sodium Chloride 50 ML IV ×5 (01:00→20:10)
[2022-03-30 01:20] LABS: Ethanol < 10 mg/dL
[2022-03-30] MEDS: Doxycycline Hyclate 100 MG in 0.9 % Sodium Chloride 250 ML 166.67 MG IV (01:30)
[2022-03-30] MEDS: diphenhydrAMINE HCL 50 MG/ML VIAL IVPUSH (01:54)
[2022-03-30 02:34] LABS: Reflex Lactate? 2 Y
--- NOTE | 2022-03-30 03:32 | PC.NURSE ---
Patient refused to have blood drawn.
[2022-03-30 05:11] LABS: Influenza A Negative (Negative); Influenza B2 Negative (Negative)
[2022-03-30 07:18] LABS: Glucose, Whole Blood 86 mg/dL (60-115)
[2022-03-30] MEDS: 0.9 % Sodium Chloride Flush 3 ML SYRINGE IVFLUSH ×2 (08:56→18:03)
[2022-03-30] MEDS: Fluconazole in NaCl,Iso-Osm 100 MG in Container,Empty 0 ML 50 MG IV (08:57)
--- NOTE | 2022-03-30 09:27 | PM.CNGS ---
History of Present Illness Consult details Consult date: 03/30/22 Narrative: 51 year old male patient with multiple medical problems including hypertension, DM, PVD, s/p Rt BKA, presenting now with a four days history of redness in the bilateral scrotum and groins. He feels the redness and pain has been rapidly increasing in severity and presented to the ED for further evaluation. He denies any bleeding, discharge, or other open wounds. He denies fever or chills. Admitting labs revealed a normal WBC. He was evaluated by Dr. Donovan and a garcia catheter inserted. Surgical consultation was requested for further wound management. CT of the abdomen and pelvis was negative for subcutaneous air or fluid collections. Review of Systems Constitutional: Constitutional: Denies chills, Denies fever(s), Denies headache(s) and Denies poor appetite ENT: Denies dizziness and Denies headache(s) Cardiovascular: Cardiovascular: Denies chest pain, Denies rapid heart rate, Denies palpitations and Denies slow heart rate Respiratory: Respiratory: Denies chest congestion, Denies cough, Denies pain on inspiration and Denies wheezing Gastrointestinal: Gastrointestinal: Reports abdominal pain, Denies bloating, Denies change in stool character, Denies constipation, Denies diarrhea, Denies nausea, Denies vomiting and Denies hematemesis Genitourinary: Genitourinary: Reports as per HPI, Reports difficulty urinating and Reports dysuria Musculoskeletal: Musculoskeletal: Denies back pain, Denies arthralgias, Denies joint swelling and Denies numbness Integumentary/Breasts: Skin/Breast: Reports as per HPI, Reports change in pigmentation, Reports erythema and Reports rash Neurologic: Denies dizziness, Denies headache(s) and Denies numbness Psychiatric: Psychiatric: Denies anxiety and Denies depression Endocrine: Endocrine: Denies palpitations Hematologic/Lymphatic: Hematologic/Lymphatic: Denies easy bleeding, Denies easy bruising and Denies lymphadenopathy Allergic/Immunologic: Allergic/Immunologic: Denies wheezing PMFSH Past Medical History Medical History Abscess or cellulitis of foot Acute on chronic anemia Acute on chronic combined systolic and diastolic congestive heart failure Acute on chronic HFrEF (heart failure with reduced ejection fraction) Acute respiratory failure with hypoxia Asthma Bipolar 1 disorder BPH (benign prostatic hyperplasia) CHF exacerbation Cholelithiasis Closed wedge compression fracture of T9 vertebra COPD (chronic obstructive pulmonary disease) Diabetes mellitus Diabetes mellitus, type 2 Elevated troponin GERD (gastroesophageal reflux disease) Hyperlipidemia Ischemic cardiomyopathy Lymphadenopathy Opiate abuse, continuous Osteomyelitis Peripheral arterial disease Peripheral neuropathy Peripheral vascular disease Substance abuse Tracheomalacia, acquired Family History Family History Father Chronic mental illness Hypertension Asthma Stroke Mother Asthma Diabetes Coronary artery disease Surgical History Surgical History History of amputation History of laminectomy History of transurethral resection of prostate Hx of BKA Social History Social History Household Members: None Housing: Apartment Housing Other:: IN A LITTLE ROOM Do you presently have visiting nurse or other home services: Yes Alcohol intake: unknown Patient Tobacco Use Status: Never used Tobacco e-Cigarette/Vaping Use: Never Used Second Hand Smoke Exposure: No Use of substances other than those prescribed or required for medical reasons: Yes Substance Use Type: Opiates Substance Use Frequency: Chronic Longstanding Last Used Substance: Unknown Advance Directives: Yes Advance Directives on File: Yes Advance Directives Date on File: 11/24/20 service: No Current occupational status: disabled Meds Allergies Allergy/AdvReac Type Severity Reaction Status Date / Time ertapenem Allergy Intermediate Hives Verified 02/21/22 18:40 vancomycin [VANCOMYCIN] Allergy Intermediate HIVES Verified 02/21/22 18:40 Chocolate Allergy Unknown Rash Verified 02/21/22 18:40 ciprofloxacin [From CIPRO] Allergy Unknown SWELLING Verified 02/21/22 18:40 hydrocortisone [Cipro HC] Allergy Unknown Unknown Verified 02/21/22 18:40 sulfamethoxazole Allergy Unknown rash Verified 02/21/22 18:40 [From BACTRIM] trimethoprim [From BACTRIM] Allergy Unknown rash Verified 02/21/22 18:40 turkey [TURKEY] Allergy Unknown RASH Verified 02/21/22 18:40 Active Medications: Current Medications Acetaminophen (Acetaminophen 325 Mg Tablet) 650 mg PO Q6H PRN PRN Reason: Pain, Mild (Pain Scale 1-3) Dextrose (Dextrose 50 % 25 Gm/50 Ml Syringe) 25 gm IVPUSH Q15M PRN; Protocol PRN Reason: per Hypoglycemia Standing Ord. Enoxaparin Sodium (Enoxaparin Sodium 40 Mg/0.4 Ml Syringe) 40 mg SUBCUT Q24H [facility] Glucose (Glucose Gel 15 Gm Gel..Gram.) 15 gm PO Q15M PRN; Protocol PRN Reason: per Hypoglycemia Standing Ord. Doxycycline Hyclate 100 mg/ (Sodium Chloride) 250 mls @ 166.67 mls/hr IV Q12H [facility] Piperacillin Sod/Tazobactam (Sod 3.375 gm/ Sodium Chloride) 50 mls @ 100 mls/hr IV Q6H [facility] Last Admin: 03/30/22 07:21 Dose: 100 mls/hr Documented by: Fluconazole 100 mg/ IV (Miscellaneous Supplies) 50 mls @ 50 mls/hr IV Q24H [facility] Last Admin: 03/30/22 08:57 Dose: 50 mls/hr Documented by: Insulin Human Lispro (Insulin Lispro 100 Unit/Ml 3 Ml Vial) 0 unit SUBCUT QIDACHS [facility]; Protocol Last Admin: 03/30/22 07:13 Dose: Not Given Documented by: Melatonin (Melatonin 3 Mg Tablet) 6 mg PO BEDTIME PRN PRN Reason: Insomnia Pharmacy Consult (Consult Rx Perform Med Rec) 1 each MISCELLANE ONCE PRN PRN Reason: Consult order Senna (Sennosides 8.6 Mg Tablet) 17.2 mg PO BEDTIME PRN PRN Reason: Constipation Sodium Chloride (0.9 % Sodium Chloride Flush 3 Ml Syringe) 3 ml IVFLUSH QSHIFT [facility] Last Admin: 03/30/22 08:56 Dose: 3 ml Documented by: Home Medications Medication Instructions Recorded Confirmed Last Taken Type albuterol sulfate 90 mcg/actuation 2 puff INHALATION Q4-6H PRN 03/08/22 03/08/22 Unknown History aerosol inhaler (ProAir HFA) aspirin 81 mg tablet,delayed 1 tab PO QAM 03/08/22 03/08/22 Unknown History release atorvastatin 20 mg tablet 1 tab PO BEDTIME 03/08/22 03/08/22 Unknown History carvedilol 6.25 mg tablet 1 tab PO BID 03/08/22 03/08/22 Unknown History cetirizine 10 mg tablet 1 tab PO QAM 03/08/22 03/08/22 Unknown History clopidogrel 75 mg tablet 1 tab PO QAM 03/08/22 03/08/22 Unknown History famotidine 20 mg tablet 1 tab PO BID 03/08/22 03/08/22 Unknown History fluticasone 500 mcg-salmeterol 50 1 puff PO BID 03/08/22 03/08/22 Unknown History mcg/dose blistr powdr for inhalation (Advair Diskus) fluticasone propionate 50 1 - 2 spray INTRANASAL DAILY PRN 03/08/22 03/08/22 Unknown History mcg/actuation nasal spray,suspension furosemide 40 mg tablet 1 tab PO QPM 03/08/22 03/08/22 Unknown History gabapentin 100 mg capsule 2 cap PO TID 03/08/22 03/08/22 Unknown History insulin aspart U-100 100 unit/mL 1 sliding scale dose SUBCUT TID 03/08/22 03/08/22 Unknown History (3 mL) subcutaneous pen (Novolog Flexpen U-100 Insulin aspart) insulin glargine 100 unit/mL (3 4 unit SUBCUT BEDTIME 03/08/22 03/08/22 03/07/22 History mL) subcutaneous pen (Lantus Solostar U-100 Insulin) lidocaine 5 % topical patch 1 patch TOPICAL DAILY 03/08/22 03/08/22 Unknown History (Lidoderm) losartan 25 mg tablet 1 tab PO QAM 03/08/22 03/08/22 Unknown History methadone 10 mg/mL oral concentrate 52 mg PO DAILY 03/08/22 03/09/22 03/08/22 History montelukast 10 mg tablet 1 tab PO QPM 03/08/22 03/08/22 Unknown History spironolactone 25 mg tablet 0.5 tab PO QAM 03/08/22 03/08/22 Unknown History tamsulosin 0.4 mg capsule 1 cap PO QPM 03/08/22 03/08/22 Unknown History zinc sulfate 50 mg zinc (220 mg) 1 cap PO DAILY 03/08/22 03/08/22 Unknown History capsule Physical Exam Vital Signs: Vital Signs: Last Vital Signs Temp 97.3 F 03/30/22 04:14 Pulse 92 03/30/22 07:12 Resp 16 03/30/22 07:12 BP 135/81 03/30/22 07:12 Pulse Ox 98 03/30/22 07:12 BMI result Body Mass Index 28.5 Const: General: cooperative, comfortable and well developed Nutritional Appearance: well nourished Orientation/consciousness: patient oriented x3 Eyes: Sclerae: sclerae normal EOM: EOMs intact bilaterally Neck: Neck: Yes normal visual inspection Resp: Effort & Inspection: normal respiratory effort, no cough, no respiratory distress and no stridor Cardio: Jugular venous distension: no JVD GI: Inspection: Yes normal to inspection Palpation (GI): Soft to palpation, nontender, no guarding and not rigid : Other: erythema involving the bilateral upper inner thighs adjacent to the scrotum, extending around the posterior scrotum and penis. No skin necrosis, subcutaneous emphysema, fluctuance, or discharge is noted. Findings consistent with cellulitis, probable fungal infection. Male genitals images: 1. cellulitic region Skin: General skin exam: dry skin Rashes: no rashes Neuro: General: patient oriented x3 and no focal motor deficits Extrem: Other: Rt. BKA General: Yes full ROM and Yes no clubbing, cyanosis or edema Psych: Appearance: grossly normal Results Labs Result diagrams: 03/29/22 22:13 03/29/22 22:13 Labs: Abnormal lab results 03/29/22 03/29/22 03/29/22 Range/Units 21:58 22:13 22:13 Hgb 13.3 L (14.0-18.0) g/dl MCH 26.5 L (27.0-33.0) pg RDW 18.1 H (11.0-16.0) % Plt Count 101 L D (160-400) X10*3/uL Neut % (Auto) 83.3 H (45-73) % Lymph % (Auto) 10.5 L (20-40) % Lymph # (Auto) 0.8 L (1.2-4.9) X10*3/uL Carbon Dioxide 20 L (22-29) mmol/L Anion Gap 24 H (12-20) BUN 18 H (9-16) mg/dL Lactic Acid (0.5-2.0) mmol/L Lactic Acid F/U @ 2Hr (0.5-2.0) mmol/L Total Bilirubin 2.4 H (0.0-1.0) mg/dL C-Reactive Protein 7.98 H (< or = 0.50) mg/dL Ur Specific [place] >= 1.030 H (1.005-1.025) Urine Protein 3+ H (NEG-TRACE) MG/DL Urine Blood 1+ H (NEG) 03/29/22 03/30/22 Range/Units 22:13 00:30 Hgb (14.0-18.0) g/dl MCH (27.0-33.0) pg RDW (11.0-16.0) % Plt Count (160-400) X10*3/uL Neut % (Auto) (45-73) % Lymph % (Auto) (20-40) % Lymph # (Auto) (1.2-4.9) X10*3/uL Carbon Dioxide (22-29) mmol/L Anion Gap (12-20) BUN (9-16) mg/dL Lactic Acid 8.5 H* (0.5-2.0) mmol/L Lactic Acid F/U @ 2Hr 8.4 H* (0.5-2.0) mmol/L Total Bilirubin (0.0-1.0) mg/dL C-Reactive Protein (< or = 0.50) mg/dL Ur Specific [place] (1.005-1.025) Urine Protein (NEG-TRACE) MG/DL Urine Blood (NEG) Short CBC 03/29/22 Range/Units 22:13 WBC 7.6 (4.8-10.8) X10*3/uL Hgb 13.3 L (14.0-18.0) g/dl Hct 42.9 (42.0-52.0) % Plt Count 101 L D (160-400) X10*3/uL BMP 03/29/22 22:13 Sodium 137 Potassium 4.7 Chloride 98 Carbon Dioxide 20 L BUN 18 H Creatinine 0.95 Calcium 10.1 D Cardiac Enzymes 03/29/22 Range/Units 22:13 Total Creatine Kinase 51 D (38-174) U/L Liver Function 03/29/22 Range/Units 22:13 Total Bilirubin 2.4 H (0.0-1.0) mg/dL AST 28 (5-37) U/L ALT 19 (0-40) U/L Alkaline Phosphatase 99 (39-117) U/L Albumin 3.6 (3.5-5.0) g/dL Urine 03/29/22 Range/Units 21:58 Urine Color DK YELLOW Urine Appearance CLEAR Urine pH 5.5 (5.0-8.0) Ur Specific [place] >= 1.030 H (1.005-1.025) Urine Protein 3+ H (NEG-TRACE) MG/DL Urine Glucose (UA) NEG (NEG) MG/DL All other labs normal. Assessment and Plan (1) Balanitis: Status: Acute (2) Cellulitis: Status: Acute Plan 51 year old male presenting with a severe groin infection with cellulitis but no abscess or evidence of fascial necrosis. Findings more suggestive of a fungal skin infection. No surgical intervention recommended at this time. Procedures Date of Service Date of Service: 03/30/22
[2022-03-30 09:51] LABS: Basophils Absolute Auto 0.1 X10*3/uL (0.0-0.2); Basophils Percent Auto 0.8 % (0-2); Eosinophils Percent Auto 0.1 % (0-4); Hematocrit 41.1 % (42.0-52.0); Imm Gran Abs Auto 0.28 X10*3/uL (0.00-0.03); Imm Gran Pct Auto 2.5 % (0.0-0.4); Lymphocytes Absolute Auto 1.2 X10*3/uL (1.2-4.9); Lymphocytes Percent Auto 10.8 % (20-40); MANUAL DIFF FLAG SCAN; Mean Corpuscular HGB Conc 31.6 g/dl (31.0-36.0); Mean Corpuscular Hemoglobin 26.6 pg (27.0-33.0); Mean Corpuscular Volume 84.2 fL (80.0-98.0); Mean Platelet Volume 10.2 fL (9.4-12.4); Monocytes Absolute Auto 0.5 X10*3/uL (0.1-1.2); Monocytes Percent Auto 4.6 % (2-11); Neutrophils Absolute Auto 9.1 x10*3/uL (2.0-8.3); Neutrophils Percent Auto 81.2 % (45-73); PLT CLUMP 1; Red Blood Count 4.88 X10*6/uL (4.60-5.80); Red Cell Distribution Width 17.9 % (11.0-16.0); SCAN SMEAR FLAG 1
[2022-03-30 10:05] LABS: ~Lactic Acid-LAB USE ONLY 6.1 mmol/L (0.5-2.0)
[2022-03-30 10:06] LABS: Anion Gap 24 (12-20); Blood Urea Nitrogen 21 mg/dL (9-16); Calcium 8.9 mg/dL (8.4-10.2); Carbon Dioxide 15 mmol/L (22-29); Chloride 103 mmol/L (96-108); Creatinine Clr Calc Pharmacy 94.4; Estimated Glomerular Filt Rate > 60; Glucose Random 97 mg/dL (60-115); Potassium 5.9 mmol/L (3.3-5.1); Sodium 136 mmol/L (135-145)
[2022-03-30 10:32] LABS: CT PCR NOT DETECTED (Not Detect.); NG PCR NOT DETECTED (Not Detect.)
[2022-03-30 10:42] LABS: White Blood Count 11.2 X10*3/uL (4.8-10.8)
[2022-03-30 10:47] LABS: SLIDE REVIEW VERIFIED
--- NOTE | 2022-03-30 11:17 | MHC.RECOVRN ---
Verified pts methadone dose at [facility] in [place]. Pts home care service picks up bottles weekly and dispenses daily. Last sweet pickled fruit maker was 03/23 and will be picked up again 03/30. Pt receives 52 mg daily. Provider and pharmacy aware.
--- NOTE | 2022-03-30 11:20 | PHA.MEDREC ---
Pharmacy Consult ? Medication Reconciliation Pharmacy has completed the medication reconciliation. Patient use [facility] [phone]. Prisca Johnson, PharmD
--- NOTE | 2022-03-30 11:25 | MHC.CM.PN ---
Attempted to meet with patient in regards to discharge planning. Patient was unable to stay awake during assessment. CM assessment completed using medical record. Patient was discharged from [facility] on 03/13/2022 with [facility] and resumption of Methadone at [facility]. HCP verified to be on file. Patient received 2 Moderna vaccines. Trying to confirm with [place] if patient is currently active with their agency. PCP is at [facility]. Continue to monitor for d/c needs.
[2022-03-30] MEDS: methADONE HCl 20 MG/2 ML ORAL.CONC 52 MG PO (12:01)
[2022-03-30 13:58] LABS: Glucose, Whole Blood 99 mg/dL (60-115)
--- NOTE | 2022-03-30 14:40 | PM.EVENT ---
Event Note Date of Service: 03/30/22 Event Note: Patient seen examined. Chart reviewed. No significant changes since admit. Discussed with ID will continue IV Zosyn/doxycycline/Diflucan. Seen by surgery. .. No surgical indication indicated. Will continue current plan as outlined. Patient will require 2 midnights going forward to treat cellulitis with IV antibiotics. This cannot be accomplished and a lesser acute setting
--- NOTE | 2022-03-30 16:22 | W.PM.IDCN ---
History of Present Illness Data of Consult Service Date: 03/30/22 Requesting physician: Wilfred Dueñas Primary Care Provider: [facility] Reason for consult: balanitis He presents with four days of discomfort penile and scrotal area. He feels he has burning painful skin. He has some feeling of chills. Review of Systems Review of Systems: Yes all other systems are reviewed and are negative PMFSH Past Medical History Medical History Abscess or cellulitis of foot Acute on chronic anemia Acute on chronic combined systolic and diastolic congestive heart failure Acute on chronic HFrEF (heart failure with reduced ejection fraction) Acute respiratory failure with hypoxia Asthma Bipolar 1 disorder BPH (benign prostatic hyperplasia) CHF exacerbation Cholelithiasis Closed wedge compression fracture of T9 vertebra COPD (chronic obstructive pulmonary disease) Diabetes mellitus Diabetes mellitus, type 2 Elevated troponin GERD (gastroesophageal reflux disease) Hyperlipidemia Ischemic cardiomyopathy Lymphadenopathy Opiate abuse, continuous Osteomyelitis Peripheral arterial disease Peripheral neuropathy Peripheral vascular disease Substance abuse Tracheomalacia, acquired Family History Family History Father Chronic mental illness Hypertension Asthma Stroke Mother Asthma Diabetes Coronary artery disease Family history: reviewed and not pertinent Surgical History Surgical History History of amputation History of laminectomy History of transurethral resection of prostate Hx of BKA Social History Social History Household Members: None Housing: Apartment Housing Other:: IN A LITTLE ROOM Do you presently have visiting nurse or other home services: Yes Alcohol intake: unknown Patient Tobacco Use Status: Never used Tobacco e-Cigarette/Vaping Use: Never Used Second Hand Smoke Exposure: No Use of substances other than those prescribed or required for medical reasons: Yes Substance Use Type: Opiates Substance Use Frequency: Chronic Longstanding Last Used Substance: Unknown Advance Directives: Yes Advance Directives on File: Yes Advance Directives Date on File: 11/24/20 service: No Current occupational status: disabled Meds Allergies Allergy/AdvReac Type Severity Reaction Status Date / Time ertapenem Allergy Intermediate Hives Verified 02/21/22 18:40 vancomycin [VANCOMYCIN] Allergy Intermediate HIVES Verified 02/21/22 18:40 Chocolate Allergy Unknown Rash Verified 02/21/22 18:40 ciprofloxacin [From CIPRO] Allergy Unknown SWELLING Verified 02/21/22 18:40 hydrocortisone [Cipro HC] Allergy Unknown Unknown Verified 02/21/22 18:40 sulfamethoxazole Allergy Unknown rash Verified 02/21/22 18:40 [From BACTRIM] trimethoprim [From BACTRIM] Allergy Unknown rash Verified 02/21/22 18:40 turkey [TURKEY] Allergy Unknown RASH Verified 02/21/22 18:40 Active Medications: Current Medications Acetaminophen (Acetaminophen 325 Mg Tablet) 650 mg PO Q6H PRN PRN Reason: Pain, Mild (Pain Scale 1-3) Dextrose (Dextrose 50 % 25 Gm/50 Ml Syringe) 25 gm IVPUSH Q15M PRN; Protocol PRN Reason: per Hypoglycemia Standing Ord. Enoxaparin Sodium (Enoxaparin Sodium 40 Mg/0.4 Ml Syringe) 40 mg SUBCUT Q24H [facility] Last Admin: 03/30/22 10:42 Dose: Not Given Documented by: Glucose (Glucose Gel 15 Gm Gel..Gram.) 15 gm PO Q15M PRN; Protocol PRN Reason: per Hypoglycemia Standing Ord. Piperacillin Sod/Tazobactam (Sod 3.375 gm/ Sodium Chloride) 50 mls @ 100 mls/hr IV Q6H [facility] Last Infusion: 03/30/22 15:25 Dose: Infused Documented by: Fluconazole 100 mg/ IV (Miscellaneous Supplies) 50 mls @ 50 mls/hr IV Q24H [facility] Last Infusion: 03/30/22 10:40 Dose: Infused Documented by: Insulin Human Lispro (Insulin Lispro 100 Unit/Ml 3 Ml Vial) 0 unit SUBCUT QIDACHS [facility]; Protocol Last Admin: 03/30/22 14:12 Dose: Not Given Documented by: Melatonin (Melatonin 3 Mg Tablet) 6 mg PO BEDTIME PRN PRN Reason: Insomnia Methadone HCl (Methadone Hcl 20 Mg/2 Ml Oral.Conc) 52 mg PO DAILY [facility] Last Admin: 03/30/22 12:01 Dose: 52 mg Documented by: Pharmacy Consult (Consult Rx Perform Med Rec) 1 each MISCELLANE ONCE PRN PRN Reason: Consult order Senna (Sennosides 8.6 Mg Tablet) 17.2 mg PO BEDTIME PRN PRN Reason: Constipation Sodium Chloride (0.9 % Sodium Chloride Flush 3 Ml Syringe) 3 ml IVFLUSH QSHIFT [facility] Last Admin: 03/30/22 08:56 Dose: 3 ml Documented by: Home Medications Medication Instructions Recorded Confirmed Last Taken Type albuterol sulfate 90 mcg/actuation 2 puff INHALATION Q4-6H PRN 03/08/22 03/30/22 Unknown History aerosol inhaler (ProAir HFA) aspirin 81 mg tablet,delayed 1 tab PO QAM 03/08/22 03/30/22 Unknown History release atorvastatin 20 mg tablet 1 tab PO BEDTIME 03/08/22 03/30/22 Unknown History carvedilol 6.25 mg tablet 1 tab PO BID 03/08/22 03/30/22 Unknown History cetirizine 10 mg tablet 1 tab PO QAM 03/08/22 03/30/22 Unknown History clopidogrel 75 mg tablet 1 tab PO QAM 03/08/22 03/30/22 Unknown History famotidine 20 mg tablet 1 tab PO BID 03/08/22 03/30/22 Unknown History fluticasone 500 mcg-salmeterol 50 1 puff PO BID 03/08/22 03/30/22 Unknown History mcg/dose blistr powdr for inhalation (Advair Diskus) fluticasone propionate 50 1 - 2 spray INTRANASAL DAILY PRN 03/08/22 03/30/22 Unknown History mcg/actuation nasal spray,suspension furosemide 40 mg tablet 1 tab PO DAILY 03/08/22 03/30/22 Unknown History gabapentin 100 mg capsule 2 cap PO TID 03/08/22 03/30/22 Unknown History insulin aspart U-100 100 unit/mL 5 unit SUBCUT TID 03/08/22 03/30/22 Unknown History (3 mL) subcutaneous pen (Novolog Flexpen U-100 Insulin aspart) insulin glargine 100 unit/mL (3 12 unit SUBCUT BEDTIME 03/08/22 03/30/22 03/07/22 History mL) subcutaneous pen (Lantus Solostar U-100 Insulin) lidocaine 5 % topical patch 1 patch TOPICAL DAILY 03/08/22 03/30/22 Unknown History (Lidoderm) methadone 10 mg/mL oral concentrate 52 mg PO DAILY 03/08/22 03/30/22 03/08/22 History montelukast 10 mg tablet 1 tab PO QPM 03/08/22 03/30/22 Unknown History spironolactone 25 mg tablet 0.5 tab PO QAM 03/08/22 03/30/22 Unknown History tamsulosin 0.4 mg capsule 1 cap PO QPM 03/08/22 03/30/22 Unknown History zinc sulfate 50 mg zinc (220 mg) 1 cap PO DAILY 03/08/22 03/30/22 Unknown History capsule bumetanide 2 mg tablet 2 mg PO BID 03/30/22 03/30/22 Unknown History sacubitril 24 mg-valsartan 26 mg 1 tab PO BID 03/30/22 03/30/22 Unknown History tablet (Entresto) Physical Exam Vital Signs: Vital Signs: Last Vital Signs Temp 97.8 F 03/30/22 11:40 Pulse 95 03/30/22 11:40 Resp 16 03/30/22 11:40 BP 119/42 L 03/30/22 11:40 Pulse Ox 100 03/30/22 11:40 BMI result Body Mass Index 28.5 Const: General: cooperative HEENT: Head: Yes normal to inspection Mouth: Normal oral and palatal mucosa present Resp: Effort & Inspection: normal respiratory effort Cardio: Rate: regular rate Rhythm: regular rhythm GI: Palpation (GI): Soft to palpation and nontender : Other: reddened skin scrotal area and scaling penile area swollen Extrem: General: Yes normal to inspection Results Labs CBC & Chem 7: 03/30/22 09:35 03/30/22 09:35 Labs: Short CBC 03/29/22 03/30/22 Range/Units 22:13 09:35 WBC 7.6 11.2 H (4.8-10.8) X10*3/uL Hgb 13.3 L 13.0 L (14.0-18.0) g/dl Hct 42.9 41.1 L (42.0-52.0) % Plt Count 101 L D TNP (160-400) X10*3/uL BMP 03/29/22 03/30/22 22:13 09:35 Sodium 137 136 Potassium 4.7 5.9 H D Chloride 98 103 Carbon Dioxide 20 L 15 L BUN 18 H 21 H Creatinine 0.95 0.90 Calcium 10.1 D 8.9 D Cardiac Enzymes 03/29/22 Range/Units 22:13 Total Creatine Kinase 51 D (38-174) U/L Liver Function 03/29/22 Range/Units 22:13 Total Bilirubin 2.4 H (0.0-1.0) mg/dL AST 28 (5-37) U/L ALT 19 (0-40) U/L Alkaline Phosphatase 99 (39-117) U/L Albumin 3.6 (3.5-5.0) g/dL Urine 03/29/22 Range/Units 21:58 Urine Color DK YELLOW Urine Appearance CLEAR Urine pH 5.5 (5.0-8.0) Ur Specific Moore >= 1.030 H (1.005-1.025) Urine Protein 3+ H (NEG-TRACE) MG/DL Urine Glucose (UA) NEG (NEG) MG/DL Assessment and Plan (1) Balanitis: Status: Acute He has possible staph or strep infection scrotal area. He has satellite lesions thigh possible fungal due to satellite lesion appearance. (2) Cellulitis: Status: Acute Plan Would continue Zosyn for now possible po Doxycycline for 10 days on discharge Add Diflucan 100 mg po daily for 10 days. Urology is following.
[2022-03-30 18:01] LABS: Glucose, Whole Blood 116 mg/dL (60-115)
[2022-03-30] MEDS: Tamsulosin HCL 0.4 MG CAPSULE PO (18:03)
[2022-03-30] MEDS: Bumetanide 1 MG TABLET 2 MG PO (18:03)
[2022-03-30] MEDS: ondansetron HCL 4 MG/2 ML VIAL IVPUSH (19:02)
[2022-03-30 19:46] LABS: Glucose, Whole Blood 144 mg/dL (60-115)
[2022-03-30] MEDS: Famotidine 20 MG TABLET PO (20:14)
[2022-03-30] MEDS: Gabapentin 100 MG CAPSULE 200 MG PO (20:15)
[2022-03-30] MEDS: Atorvastatin Calcium 20 MG TABLET PO (20:15)
[2022-03-30] MEDS: Montelukast Sodium 10 MG TABLET PO (20:15)
[2022-03-30] MEDS: Sacubitril/Valsartan 24/26 1 TAB TABLET PO (20:15)
[2022-03-30] MEDS: carvediloL 6.25 MG TABLET PO (20:15)
[2022-03-30] MEDS: Insulin Glargine,Hum.rec.anlog 100 UNIT/ML 10 ML VIAL 12 UNIT SUBCUT (20:20)
[2022-03-31] VITALS (9 sets, daily range): BP systolic 90–132; BP diastolic 48–69; PULSE 57–69; RESP 14–18; TEMP 36–36.6; O2SAT 91–99
[2022-03-31] MEDS: 0.9 % Sodium Chloride Flush 3 ML SYRINGE IVFLUSH ×3 (01:28→15:45)
[2022-03-31] MEDS: Piperacillin Sodium/Tazobactam 3.375 GM in 0.9 % Sodium Chloride 50 ML IV ×4 (01:28→18:04)
[2022-03-31] MEDS: Magnesium Hydrox/Alum Hydrox 30 ML ORAL.SUSP PO (03:05)
[2022-03-31 07:50] LABS: Glucose, Whole Blood 222 mg/dL (60-115)
[2022-03-31] MEDS: Furosemide 40 MG TABLET PO (08:10)
[2022-03-31] MEDS: Aspirin Enteric Coated 81 MG TABLET.DR PO (08:10)
[2022-03-31] MEDS: Zinc Sulfate 220 MG CAPSULE PO (08:10)
[2022-03-31] MEDS: Clopidogrel Bisulfate 75 MG TABLET PO (08:10)
[2022-03-31] MEDS: carvediloL 6.25 MG TABLET PO (08:10)
[2022-03-31] MEDS: Gabapentin 100 MG CAPSULE 200 MG PO (08:11)
[2022-03-31] MEDS: Sacubitril/Valsartan 24/26 1 TAB TABLET PO (08:11)
[2022-03-31] MEDS: Loratadine 10 MG TABLET PO (08:11)
[2022-03-31] MEDS: Bumetanide 1 MG TABLET 2 MG PO (08:11)
[2022-03-31] MEDS: methADONE HCl 20 MG/2 ML ORAL.CONC 52 MG PO (08:11)
[2022-03-31] MEDS: Famotidine 20 MG TABLET PO (08:11)
[2022-03-31] MEDS: Spironolactone 25 MG TABLET 12.5 MG PO (08:12)
[2022-03-31] MEDS: Enoxaparin Sodium 40 MG/0.4 ML SYRINGE SUBCUT (08:13)
[2022-03-31] MEDS: Insulin Lispro 100 UNIT/ML 3 ML VIAL SUBCUT ×2 (08:14)
[2022-03-31] MEDS: Fluconazole in NaCl,Iso-Osm 100 MG in Container,Empty 0 ML 50 MG IV (08:58)
[2022-03-31 11:57] LABS: Glucose, Whole Blood 151 mg/dL (60-115)
--- NOTE | 2022-03-31 12:49 | PM.PNGS ---
Subjective Subjective Date of Service: 03/31/22 Interval history: patient is sleepy, responding to voice Physical Exam Vital Signs: Vital Signs: Last Vital Signs Temp 96.8 F 03/31/22 11:26 Pulse 65 03/31/22 11:26 Resp 18 03/31/22 11:26 BP 104/48 L 03/31/22 11:26 Pulse Ox 96 03/31/22 11:26 BMI result Body Mass Index 28.5 Const: General: lethargic Nutritional Appearance: well nourished Orientation/consciousness: lethargic Resp: Effort & Inspection: normal respiratory effort : Other: erythema in scrotum and upper inner thigh appears improved, less tender. Penile edema decreased as well. Extrem: General: No edema Objective Data Active Medications Acetaminophen (Acetaminophen 325 Mg Tablet) 650 mg PO Q6H PRN PRN Reason: Pain, Mild (Pain Scale 1-3) Albuterol Sulfate (Albuterol Sulfate 90 Mcg 8 Gm Inhaler) 2 puff INHALE Q4H PRN PRN Reason: dyspnea Aspirin (Aspirin Enteric Coated 81 Mg Tablet.) 81 mg PO DAILY [facility] Last Admin: 03/31/22 08:10 Dose: 81 mg Documented by: MAURY Atorvastatin Calcium (Atorvastatin Calcium 20 Mg Tablet) 20 mg PO BEDTIME [facility] Last Admin: 03/30/22 20:15 Dose: 20 mg Documented by: ML Bumetanide (Bumetanide 1 Mg Tablet) 2 mg PO BIDWM [facility]; Protocol Last Admin: 03/31/22 08:11 Dose: 2 mg Documented by: MAURY Carvedilol (Carvedilol 6.25 Mg Tablet) 6.25 mg PO BID [facility]; Protocol Last Admin: 03/31/22 08:10 Dose: 6.25 mg Documented by: MAURY Clopidogrel Bisulfate (Clopidogrel Bisulfate 75 Mg Tablet) 75 mg PO DAILY [facility] Last Admin: 03/31/22 08:10 Dose: 75 mg Documented by: MAURY Dextrose (Dextrose 50 % 25 Gm/50 Ml Syringe) 25 gm IVPUSH Q15M PRN; Protocol PRN Reason: per Hypoglycemia Standing Ord. Enoxaparin Sodium (Enoxaparin Sodium 40 Mg/0.4 Ml Syringe) 40 mg SUBCUT Q24H [facility] Last Admin: 03/31/22 08:13 Dose: 40 mg Documented by: MAURY Famotidine (Famotidine 20 Mg Tablet) 20 mg PO BID [facility] Last Admin: 03/31/22 08:11 Dose: 20 mg Documented by: MAURY Furosemide (Furosemide 40 Mg Tablet) 40 mg PO DAILY [facility]; Protocol Last Admin: 03/31/22 08:10 Dose: 40 mg Documented by: MAURY Gabapentin (Gabapentin 100 Mg Capsule) 200 mg PO TID [facility] Last Admin: 03/31/22 08:11 Dose: 200 mg Documented by: MAURY Glucose (Glucose Gel 15 Gm Gel..Gram.) 15 gm PO Q15M PRN; Protocol PRN Reason: per Hypoglycemia Standing Ord. Piperacillin Sod/Tazobactam (Sod 3.375 gm/ Sodium Chloride) 50 mls @ 100 mls/hr IV Q6H [facility] Last Infusion: 03/31/22 09:08 Dose: 0 mls/hr Documented by: MAURY Fluconazole 100 mg/ IV (Miscellaneous Supplies) 50 mls @ 50 mls/hr IV Q24H [facility] Last Infusion: 03/31/22 10:13 Dose: 0 mls/hr Documented by: DOMINGOEMA Insulin Glargine (Insulin Glargine,Hum.Rec.Anlog 100 Unit/Ml 10 Ml Vial) 12 unit SUBCUT BEDTIME [facility] Last Admin: 03/30/22 20:20 Dose: 1 unit Documented by: ML Insulin Human Lispro (Insulin Lispro 100 Unit/Ml 3 Ml Vial) 0 unit SUBCUT QIDACHS [facility]; Protocol Last Admin: 03/31/22 11:32 Dose: Not Given Documented by: MAURY Non-Admin Reason: pt not eating Insulin Human Lispro (Insulin Lispro 100 Unit/Ml 3 Ml Vial) 5 unit SUBCUT TIDAC [facility] Last Admin: 03/31/22 11:32 Dose: Not Given Documented by: MAURY Non-Admin Reason: pt not eating Lidocaine (Lidocaine 4 % Patch Adh..Patch) 1 patch TRANSDERMA DAILY [facility] Last Admin: 03/31/22 08:22 Dose: Not Given Documented by: MAURY Non-Admin Reason: Patient Refused Loratadine (Loratadine 10 Mg Tablet) 10 mg PO DAILY [facility] Last Admin: 03/31/22 08:11 Dose: 10 mg Documented by: MAURY Melatonin (Melatonin 3 Mg Tablet) 6 mg PO BEDTIME PRN PRN Reason: Insomnia Methadone HCl (Methadone Hcl 20 Mg/2 Ml Oral.Conc) 52 mg PO DAILY [facility] Last Admin: 03/31/22 08:11 Dose: 52 mg Documented by: MAURY Methadone HCl (Methadone Hcl 20 Mg/2 Ml Oral.Conc) 50 mg PO DAILY [facility] Last Admin: 03/31/22 08:23 Dose: Not Given Documented by: MAURY Non-Admin Reason: Duplicate Order Montelukast Sodium (Montelukast Sodium 10 Mg Tablet) 10 mg PO BEDTIME [facility] Last Admin: 03/30/22 20:15 Dose: 10 mg Documented by: ML Ondansetron HCl (Ondansetron Hcl 4 Mg/2 Ml Vial) 4 mg IVPUSH Q8H PRN PRN Reason: Nausea and Vomiting Last Admin: 03/30/22 19:02 Dose: 4 mg Documented by: ML Pharmacy Consult (Consult Rx Perform Med Rec) 1 each MISCELLANE ONCE PRN PRN Reason: Consult order Sacubitril/Valsartan (Sacubitril/Valsartan 1 Tab Tablet) 1 tab PO BID [facility]; Protocol Last Admin: 03/31/22 08:11 Dose: 1 tab Documented by: MAURY Senna (Sennosides 8.6 Mg Tablet) 17.2 mg PO BEDTIME PRN PRN Reason: Constipation Sodium Chloride (0.9 % Sodium Chloride Flush 3 Ml Syringe) 3 ml IVFLUSH QSHIFT [facility] Last Admin: 03/31/22 08:23 Dose: 3 ml Documented by: MAURY Spironolactone (Spironolactone 25 Mg Tablet) 12.5 mg PO DAILY [facility]; Protocol Last Admin: 03/31/22 08:12 Dose: 12.5 mg Documented by: MAURY Tamsulosin HCl (Tamsulosin Hcl 0.4 Mg Capsule) 0.4 mg PO DAILY@1800 [facility] Last Admin: 03/30/22 18:03 Dose: 0.4 mg Documented by: ML Zinc Sulfate (Zinc Sulfate 220 Mg Capsule) 220 mg PO DAILY [facility] Last Admin: 03/31/22 08:10 Dose: 220 mg Documented by: HO.MATTHEP Labs CBC & Chem 7: 03/30/22 09:35 03/30/22 09:35 Labs: Laboratory Results - last 24 hr 03/30/22 03/30/22 03/30/22 13:48 16:53 19:24 POC Glucose 99 116 H 144 H 03/31/22 03/31/22 07:37 11:26 POC Glucose 222 H 151 H Microbiology Microbiology Results: Microbiology 03/29/22 22:44 Blood Culture - Preliminary Blood - Subclavian No growth after 24 hours. 03/29/22 22:13 Blood Culture - Preliminary Blood - Subclavian No growth after 24 hours. Procedures Date of Service Date of Service: 03/31/22 Progress Note: A&P Assessment and plan (1) Balanitis: Status: Acute Plan 51-year-old male patient presenting with erythema of the scrotal sac and upper inner thigh bilaterally. No evidence of skin necrosis or subcutaneous emphysema. Patient being treated for fungal skin infection with Diflucan. Will sign off, please call for new concerns. Time Spent With Patient Time: Total time spent is greater than 50% in coordination of care (as documented) at patient's floor/unit and/or counseling patient: Quality Stroke Does the patient have a stroke diagnosis?: No VTE Prior VTE?: No VTE Risk Level:: Medical - moderate - high VTE Device Contraindication: Treatment Not Indicated VTE Drug Contraindication: N/A - Med Ordered
--- NOTE | 2022-03-31 13:34 | P.PNIM_ITS ---
Subjective Subjective Date of Service: 03/31/22 Interval History: No acute issues overnight. States scrotum is somewhat better Review of Systems Denies chest pain Denies shortness of breath Denies nausea vomiting diarrhea Denies fever chills Physical Exam Vital Signs: Vital Signs: Last Vital Signs Temp 96.8 F 03/31/22 11:26 Pulse 65 03/31/22 11:26 Resp 18 03/31/22 11:26 BP 104/48 L 03/31/22 11:26 Pulse Ox 96 03/31/22 11:26 BMI result Body Mass Index 28.5 Const: Other: Awake alert no acute distress Resp: Other: Clear to auscultation bilaterally no rales rhonchi or wheezes Cardio: Other: No S4; positive S1-S2; no S3 murmurs rubs or gallops : Other: Scrotum less edematous/erythematous Extrem: Other: No edema bilaterally Objective Data Active Medications Acetaminophen (Acetaminophen 325 Mg Tablet) 650 mg PO Q6H PRN PRN Reason: Pain, Mild (Pain Scale 1-3) Albuterol Sulfate (Albuterol Sulfate 90 Mcg 8 Gm Inhaler) 2 puff INHALE Q4H PRN PRN Reason: dyspnea Aspirin (Aspirin Enteric Coated 81 Mg Tablet.) 81 mg PO DAILY [facility] Last Admin: 03/31/22 08:10 Dose: 81 mg Documented by: MAURY Atorvastatin Calcium (Atorvastatin Calcium 20 Mg Tablet) 20 mg PO BEDTIME [facility] Last Admin: 03/30/22 20:15 Dose: 20 mg Documented by: ML Bumetanide (Bumetanide 1 Mg Tablet) 2 mg PO BIDWM [facility]; Protocol Last Admin: 03/31/22 08:11 Dose: 2 mg Documented by: MAURY Carvedilol (Carvedilol 6.25 Mg Tablet) 6.25 mg PO BID [facility]; Protocol Last Admin: 03/31/22 08:10 Dose: 6.25 mg Documented by: MAURY Clopidogrel Bisulfate (Clopidogrel Bisulfate 75 Mg Tablet) 75 mg PO DAILY [facility] Last Admin: 03/31/22 08:10 Dose: 75 mg Documented by: MAURY Dextrose (Dextrose 50 % 25 Gm/50 Ml Syringe) 25 gm IVPUSH Q15M PRN; Protocol PRN Reason: per Hypoglycemia Standing Ord. Enoxaparin Sodium (Enoxaparin Sodium 40 Mg/0.4 Ml Syringe) 40 mg SUBCUT Q24H [facility] Last Admin: 03/31/22 08:13 Dose: 40 mg Documented by: MAURY Famotidine (Famotidine 20 Mg Tablet) 20 mg PO BID [facility] Last Admin: 03/31/22 08:11 Dose: 20 mg Documented by: MAURY Furosemide (Furosemide 40 Mg Tablet) 40 mg PO DAILY [facility]; Protocol Last Admin: 03/31/22 08:10 Dose: 40 mg Documented by: MAURY Gabapentin (Gabapentin 100 Mg Capsule) 200 mg PO TID [facility] Last Admin: 03/31/22 08:11 Dose: 200 mg Documented by: MAURY Glucose (Glucose Gel 15 Gm Gel..Gram.) 15 gm PO Q15M PRN; Protocol PRN Reason: per Hypoglycemia Standing Ord. Piperacillin Sod/Tazobactam (Sod 3.375 gm/ Sodium Chloride) 50 mls @ 100 mls/hr IV Q6H [facility] Last Infusion: 03/31/22 09:08 Dose: 0 mls/hr Documented by: MAURY Fluconazole 100 mg/ IV (Miscellaneous Supplies) 50 mls @ 50 mls/hr IV Q24H [facility] Last Infusion: 03/31/22 10:13 Dose: 0 mls/hr Documented by: MARGIE Insulin Glargine (Insulin Glargine,Hum.Rec.Anlog 100 Unit/Ml 10 Ml Vial) 12 unit SUBCUT BEDTIME [facility] Last Admin: 03/30/22 20:20 Dose: 1 unit Documented by: JENNIT Insulin Human Lispro (Insulin Lispro 100 Unit/Ml 3 Ml Vial) 0 unit SUBCUT QIDACHS [facility]; Protocol Last Admin: 03/31/22 11:32 Dose: Not Given Documented by: MAURY Non-Admin Reason: pt not eating Insulin Human Lispro (Insulin Lispro 100 Unit/Ml 3 Ml Vial) 5 unit SUBCUT TIDAC [facility] Last Admin: 03/31/22 11:32 Dose: Not Given Documented by: MAURY Non-Admin Reason: pt not eating Lidocaine (Lidocaine 4 % Patch Adh..Patch) 1 patch TRANSDERMA DAILY [facility] Last Admin: 03/31/22 08:22 Dose: Not Given Documented by: MAURY Non-Admin Reason: Patient Refused Loratadine (Loratadine 10 Mg Tablet) 10 mg PO DAILY [facility] Last Admin: 03/31/22 08:11 Dose: 10 mg Documented by: MARUY Melatonin (Melatonin 3 Mg Tablet) 6 mg PO BEDTIME PRN PRN Reason: Insomnia Methadone HCl (Methadone Hcl 20 Mg/2 Ml Oral.Conc) 52 mg PO DAILY [facility] Last Admin: 03/31/22 08:11 Dose: 52 mg Documented by: MAURY Methadone HCl (Methadone Hcl 20 Mg/2 Ml Oral.Conc) 50 mg PO DAILY [facility] Last Admin: 03/31/22 08:23 Dose: Not Given Documented by: MAURY Non-Admin Reason: Duplicate Order Montelukast Sodium (Montelukast Sodium 10 Mg Tablet) 10 mg PO BEDTIME [facility] Last Admin: 03/30/22 20:15 Dose: 10 mg Documented by: ML Ondansetron HCl (Ondansetron Hcl 4 Mg/2 Ml Vial) 4 mg IVPUSH Q8H PRN PRN Reason: Nausea and Vomiting Last Admin: 03/30/22 19:02 Dose: 4 mg Documented by: ML Pharmacy Consult (Consult Rx Perform Med Rec) 1 each MISCELLANE ONCE PRN PRN Reason: Consult order Sacubitril/Valsartan (Sacubitril/Valsartan 1 Tab Tablet) 1 tab PO BID [facility]; Protocol Last Admin: 03/31/22 08:11 Dose: 1 tab Documented by: MAURY Senna (Sennosides 8.6 Mg Tablet) 17.2 mg PO BEDTIME PRN PRN Reason: Constipation Sodium Chloride (0.9 % Sodium Chloride Flush 3 Ml Syringe) 3 ml IVFLUSH QSHIFT [facility] Last Admin: 03/31/22 08:23 Dose: 3 ml Documented by: MAURY Spironolactone (Spironolactone 25 Mg Tablet) 12.5 mg PO DAILY [facility]; Protocol Last Admin: 03/31/22 08:12 Dose: 12.5 mg Documented by: MAURY Tamsulosin HCl (Tamsulosin Hcl 0.4 Mg Capsule) 0.4 mg PO DAILY@1800 [facility] Last Admin: 03/30/22 18:03 Dose: 0.4 mg Documented by: ML Zinc Sulfate (Zinc Sulfate 220 Mg Capsule) 220 mg PO DAILY [facility] Last Admin: 03/31/22 08:10 Dose: 220 mg Documented by: MAURY Labs CBC & Chem 7: 03/30/22 09:35 03/30/22 09:35 Labs: Laboratory Results - last 24 hr 03/30/22 03/30/22 03/30/22 13:48 16:53 19:24 POC Glucose 99 116 H 144 H 03/31/22 03/31/22 07:37 11:26 POC Glucose 222 H 151 H Microbiology Microbiology Results: Microbiology 03/29/22 22:44 Blood Culture - Preliminary Blood - Subclavian No growth after 24 hours. 03/29/22 22:13 Blood Culture - Preliminary Blood - Subclavian No growth after 24 hours. Assessment and Plan (1) Balanitis: Status: Acute (2) Cellulitis: Status: Acute (3) Diabetes mellitus, type 2: Status: Acute (4) CHF (congestive heart failure): Status: Acute Plan 51-year-old male with a past medical history of hypertension, hyperlipidemia, diabetes, CHF, BPH, compression fracture of T9, peripheral vascular disease, asthma, bipolar, history of osteomyelitis, opiate dependence presented to the hospital today with a chief complaint of pain and swelling of the scrotum as well as the penis. 1.Scrotal cellulitis/Balanitis: -continue Zosyn/doxycycline.... Switch to oral upon DC -Diflucan for antifungal coverage 2. Diabetes type 2 -acceptable control on current therapies -continue list pro correctional scale as well as outpatient therapies -ADA diet 3. CHF (by history) -continue Coreg/Entresto/Aldactone -asymptomatic; adjust as indicated 4. Opiate use disorder -continue methadone as ordered. -verified by care team Marta Full code Requires ongoing hospitalization for treatment of scrotal cellulitis with IV antibiotics Quality Stroke Does the patient have a stroke diagnosis?: No VTE Prior VTE?: No VTE Risk Level:: Medical - moderate - high VTE Device Contraindication: Treatment Not Indicated VTE Drug Contraindication: N/A - Med Ordered
[2022-03-31 16:23] LABS: Glucose, Whole Blood 117 mg/dL (60-115)
[2022-03-31] MEDS: Tamsulosin HCL 0.4 MG CAPSULE PO (18:04)
[2022-03-31 19:04] LABS: Anion Gap 12 (12-20); Blood Urea Nitrogen 37 mg/dL (9-16); Calcium 8.8 mg/dL (8.4-10.2); Carbon Dioxide 28 mmol/L (22-29); Chloride 102 mmol/L (96-108); Estimated Glomerular Filt Rate > 60; Glucose Random 136 mg/dL (60-115); Potassium 4.5 mmol/L (3.3-5.1); Sodium 137 mmol/L (135-145)
[2022-03-31 20:52] LABS: Glucose, Whole Blood 127 mg/dL (60-115)
[2022-04-01] MEDS: Piperacillin Sodium/Tazobactam 3.375 GM in 0.9 % Sodium Chloride 50 ML IV ×4 (01:07→20:52)
[2022-04-01] MEDS: 0.9 % Sodium Chloride Flush 3 ML SYRINGE IVFLUSH ×3 (01:08→16:46)
[2022-04-01 03:23] VITALS: BP 97/64; PULSE 65; RESP 15; TEMP 35.9; O2SAT 97
--- NOTE | 2022-04-01 03:31 | PC.NURSE ---
Pt noted with systolic BP on the 90s, poor po and mostly asleep, Dr. Vila was notified, Coreg was held, when pt was approached for rest of scheduled meds ,pt refused them all, dr. Szymanski was made aware.
[2022-04-01 07:28] VITALS: BP 103/58; PULSE 65; RESP 18; TEMP 36.1; O2SAT 93
[2022-04-01 07:45] LABS: Glucose, Whole Blood 125 mg/dL (60-115)
[2022-04-01 08:53] LABS: Alanine Aminotransferase 131 U/L (0-40); Albumin Level 2.4 g/dL (3.5-5.0); Alkaline Phosphatase 79 U/L (39-117); Anion Gap 16 (12-20); Aspartate Amino Transferase 160 U/L (5-37); Bilirubin Total 1.2 mg/dL (0.0-1.0); Blood Urea Nitrogen 40 mg/dL (9-16); Calcium 8.8 mg/dL (8.4-10.2); Carbon Dioxide 24 mmol/L (22-29); Chloride 102 mmol/L (96-108); Creatinine Clr Calc Pharmacy 61.6; Estimated Glomerular Filt Rate 54; Glucose Fasting 133 mg/dL (60-99); Potassium 4.5 mmol/L (3.3-5.1); Sodium 137 mmol/L (135-145); Total Protein 5.4 g/dL (6.5-8.0)
[2022-04-01] MEDS: methADONE HCl 20 MG/2 ML ORAL.CONC 50 MG PO (09:09)
[2022-04-01 09:31] LABS: Hematocrit 54.9 % (42.0-52.0); Mean Corpuscular Hemoglobin 26.6 pg (27.0-33.0); Mean Corpuscular Volume 86.1 fL (80.0-98.0); Mean Platelet Volume 10.9 fL (9.4-12.4); Red Blood Count 6.38 X10*6/uL (4.60-5.80); Red Cell Distribution Width 19.6 % (11.0-16.0)
[2022-04-01 09:37] LABS: Platelet Count 83 X10*3/uL (160-400)
[2022-04-01 09:38] LABS: White Blood Count 18.5 X10*3/uL (4.8-10.8)
[2022-04-01 11:35] VITALS: BP 111/59; PULSE 65; RESP 18; TEMP 36; O2SAT 93
[2022-04-01 11:48] LABS: Glucose, Whole Blood 124 mg/dL (60-115)
[2022-04-01] MEDS: Gabapentin 100 MG CAPSULE 200 MG PO ×2 (13:49→20:53)
--- NOTE | 2022-04-01 15:01 | MHC.CM.PN ---
PATIENT HAS HOME METHADONE AND DC WILL NEED TO BE COORDINATED WITH [facility]YDI LOPEZ. UPDATES SENT VIA [employer]. NO PLAN FOR DC TODAY
[2022-04-01 15:23] VITALS: BP 113/64; PULSE 68; RESP 18; TEMP 36.1; O2SAT 100
--- NOTE | 2022-04-01 15:44 | P.PNGS_ITS ---
Subjective Subjective Date of Service: 04/01/22 Interval history: Patient feels improved with decreased pain in the scrotum. Physical Exam Vital Signs: Vital Signs: Last Vital Signs Temp 97 F 04/01/22 15:23 Pulse 68 04/01/22 15:23 Resp 18 04/01/22 15:23 BP 113/64 04/01/22 15:23 Pulse Ox 100 04/01/22 15:23 BMI result Body Mass Index 28.5 Const: General: no acute distress Nutritional Appearance: well nourished Orientation/consciousness: patient oriented x3 Resp: Effort & Inspection: normal respiratory effort and no respiratory distress GI: Other: Soft, nondistended, nontender, no rebound or guarding. : Other: Scrotum is red with scaly skin, inner thighs are improved less redness. No necrotic skin, no subcutaneous emphysema. Neuro: General: patient oriented x3 Objective Data Active Medications Acetaminophen (Acetaminophen 325 Mg Tablet) 650 mg PO Q6H PRN PRN Reason: Pain, Mild (Pain Scale 1-3) Albuterol Sulfate (Albuterol Sulfate 90 Mcg 8 Gm Inhaler) 2 puff INHALE Q4H PRN PRN Reason: dyspnea Aspirin (Aspirin Enteric Coated 81 Mg Tablet.) 81 mg PO DAILY [facility] [place] Last Admin: 04/01/22 09:10 Dose: Not Given Documented by: NIC Non-Admin Reason: Patient Refused Atorvastatin Calcium (Atorvastatin Calcium 20 Mg Tablet) 20 mg PO BEDTIME [facility] [place] Last Admin: 03/31/22 22:47 Dose: Not Given Documented by: BENJI Non-Admin Reason: Patient Refused Carvedilol (Carvedilol 6.25 Mg Tablet) 6.25 mg PO BID [facility] [place]; Protocol Last Admin: 04/01/22 09:11 Dose: Not Given Documented by: NIC Non-Admin Reason: Patient Refused Clopidogrel Bisulfate (Clopidogrel Bisulfate 75 Mg Tablet) 75 mg PO DAILY [facility] [place] Last Admin: 04/01/22 09:11 Dose: Not Given Documented by: NIC Non-Admin Reason: Patient Refused Dextrose (Dextrose 50 % 25 Gm/50 Ml Syringe) 25 gm IVPUSH Q15M PRN; Protocol PRN Reason: per Hypoglycemia Standing Ord. Doxycycline Hyclate (Doxycycline Hyclate 100 Mg Tablet) 100 mg PO BID [facility] [place] Last Admin: 04/01/22 14:25 Dose: 100 mg Documented by: NIC Enoxaparin Sodium (Enoxaparin Sodium 40 Mg/0.4 Ml Syringe) 40 mg SUBCUT Q24H [facility] Last Admin: 04/01/22 09:11 Dose: Not Given Documented by: NIC Non-Admin Reason: Patient Refused Famotidine (Famotidine 20 Mg Tablet) 20 mg PO BID [facility] [place] Last Admin: 04/01/22 09:11 Dose: Not Given Documented by: NIC Non-Admin Reason: Patient Refused Fluconazole (Fluconazole 100 Mg Tablet) 100 mg PO DAILY [facility] [place] Last Admin: 04/01/22 09:11 Dose: Not Given Documented by: NIC Non-Admin Reason: Patient Refused Furosemide (Furosemide 40 Mg Tablet) 40 mg PO DAILY [facility] [place]; Protocol Last Admin: 04/01/22 09:12 Dose: Not Given Documented by: NIC Non-Admin Reason: Patient Refused Gabapentin (Gabapentin 100 Mg Capsule) 200 mg PO TID [facility] Last Admin: 04/01/22 13:49 Dose: 200 mg Documented by: NIC Glucose (Glucose Gel 15 Gm Gel..Gram.) 15 gm PO Q15M PRN; Protocol PRN Reason: per Hypoglycemia Standing Ord. Piperacillin Sod/Tazobactam (Sod 3.375 gm/ Sodium Chloride) 50 mls @ 100 mls/hr IV Q6H [facility] Last Infusion: 04/01/22 14:26 Dose: 0 mls/hr Documented by: NIC Insulin Glargine (Insulin Glargine,Hum.Rec.Anlog 100 Unit/Ml 10 Ml Vial) 12 unit SUBCUT BEDTIME [facility] [place] Last Admin: 03/31/22 22:48 Dose: Not Given Documented by: BENJI Non-Admin Reason: Patient Refused Insulin Human Lispro (Insulin Lispro 100 Unit/Ml 3 Ml Vial) 0 unit SUBCUT QIDACHS [facility] [place]; Protocol Last Admin: 04/01/22 11:46 Dose: Not Given Documented by: NIC Non-Admin Reason: No Insulin Coverage Insulin Human Lispro (Insulin Lispro 100 Unit/Ml 3 Ml Vial) 5 unit SUBCUT TIDAC [facility] [place] Last Admin: 04/01/22 11:47 Dose: Not Given Documented by: NIC Non-Admin Reason: refused lunch Lidocaine (Lidocaine 4 % Patch Adh..Patch) 1 patch TRANSDERMA DAILY [facility] Last Admin: 04/01/22 09:13 Dose: Not Given Documented by: NIC Non-Admin Reason: Patient Refused Loratadine (Loratadine 10 Mg Tablet) 10 mg PO DAILY [facility] [place] Last Admin: 04/01/22 09:16 Dose: Not Given Documented by: NIC Non-Admin Reason: Patient Refused Melatonin (Melatonin 3 Mg Tablet) 6 mg PO BEDTIME PRN PRN Reason: Insomnia Methadone HCl (Methadone Hcl 20 Mg/2 Ml Oral.Conc) 50 mg PO DAILY [facility] [place] Last Admin: 04/01/22 09:09 Dose: 50 mg Documented by: NIC Montelukast Sodium (Montelukast Sodium 10 Mg Tablet) 10 mg PO BEDTIME [facility] [place] Last Admin: 03/31/22 22:49 Dose: Not Given Documented by: BENJI Non-Admin Reason: Patient Refused Ondansetron HCl (Ondansetron Hcl 4 Mg/2 Ml Vial) 4 mg IVPUSH Q8H PRN PRN Reason: Nausea and Vomiting Last Admin: 03/30/22 19:02 Dose: 4 mg Documented by: ML Pharmacy Consult (Consult Rx Perform Med Rec) 1 each MISCELLANE ONCE PRN PRN Reason: Consult order Sacubitril/Valsartan (Sacubitril/Valsartan 1 Tab Tablet) 1 tab PO BID [facility] [place]; Protocol Last Admin: 04/01/22 09:13 Dose: Not Given Documented by: NIC Non-Admin Reason: Patient Refused Senna (Sennosides 8.6 Mg Tablet) 17.2 mg PO BEDTIME PRN PRN Reason: Constipation Sodium Chloride (0.9 % Sodium Chloride Flush 3 Ml Syringe) 3 ml IVFLUSH QSHIFT [facility] Last Admin: 04/01/22 09:09 Dose: 3 ml Documented by: NIC Spironolactone (Spironolactone 25 Mg Tablet) 12.5 mg PO DAILY [facility] [place]; Protocol Last Admin: 04/01/22 09:13 Dose: Not Given Documented by: NIC Non-Admin Reason: Patient Refused Tamsulosin HCl (Tamsulosin Hcl 0.4 Mg Capsule) 0.4 mg PO DAILY@1800 [facility] [place] Last Admin: 03/31/22 18:04 Dose: 0.4 mg Documented by: MAURY Zinc Sulfate (Zinc Sulfate 220 Mg Capsule) 220 mg PO DAILY [facility] [place] Last Admin: 04/01/22 09:13 Dose: Not Given Documented by: NIC Non-Admin Reason: Patient Refused Labs CBC & Chem 7: 04/01/22 09:06 04/01/22 08:10 Labs: Laboratory Results - last 24 hr 03/31/22 03/31/22 03/31/22 16:00 18:43 19:55 MCV MCH MCHC RDW Plt Count MPV Absolute Nucleated RBC Nucleated RBC % (auto) Anion Gap 12 Estim Creat Clear Calc 68.0 Estimated GFR > 60 POC Glucose 117 H 127 H Random Glucose 136 H D Fasting Glucose Calcium 8.8 Total Bilirubin AST ALT Alkaline Phosphatase Total Protein Albumin 04/01/22 04/01/22 04/01/22 07:28 08:10 09:06 MCV 86.1 MCH 26.6 L MCHC 31.0 RDW 19.6 H Plt Count 83 L MPV 10.9 Absolute Nucleated RBC 0.000 Nucleated RBC % (auto) 0.0 Anion Gap 16 Estim Creat Clear Calc 61.6 Estimated GFR 54 POC Glucose 125 H Random Glucose TNP Fasting Glucose 133 H Calcium 8.8 Total Bilirubin 1.2 H AST 160 H ALT 131 H Alkaline Phosphatase 79 D Total Protein 5.4 L D Albumin 2.4 L D 04/01/22 11:35 MCV MCH MCHC RDW Plt Count MPV Absolute Nucleated RBC Nucleated RBC % (auto) Anion Gap Estim Creat Clear Calc Estimated GFR POC Glucose 124 H Random Glucose Fasting Glucose Calcium Total Bilirubin AST ALT Alkaline Phosphatase Total Protein Albumin Microbiology Microbiology Results: Microbiology 03/29/22 22:44 Blood Culture - Preliminary Blood - Subclavian No growth after 48 hours. 03/29/22 22:13 Blood Culture - Preliminary Blood - Subclavian No growth after 48 hours. Procedures Date of Service Date of Service: 04/01/22 Progress Note: A&P Assessment and plan (1) Balanitis: Status: Acute Plan The patient is overall improved although his WBC is now elevated. Examination of the groin all skin and inner thighs appears improved. No evidence of necrotizing fasciitis. Continue antibiotics. Surgical intervention not indicated at this time. I will sign off, please call if needed. Time Spent With Patient Time: Total time spent is greater than 50% in coordination of care (as documented) at patient's floor/unit and/or counseling patient: Quality Stroke Does the patient have a stroke diagnosis?: No VTE Prior VTE?: No VTE Risk Level:: Medical - moderate - high VTE Device Contraindication: Treatment Not Indicated VTE Drug Contraindication: N/A - Med Ordered
[2022-04-01 16:05] LABS: Glucose, Whole Blood 111 mg/dL (60-115)
--- NOTE | 2022-04-01 16:17 | P.PNIM_ITS ---
Subjective Subjective Date of Service: 04/01/22 Interval History: patient noted to be somnolent this a.m. easily arousable, refused medication and breakfast, later in the afternoon patient noted to be more awake alert feels his scrotal swelling and pain is getting better denies fever, chills, no new pain discomfort, denies nausea, vomiting, abdominal pain, diarrhea. history obtained via manager paid. Review of Systems [employer] no headache no dizziness CVS no chest pain no palpatations GI no nausea, no vomiting, no pain Review of Systems: Yes all other systems are reviewed and are negative Physical Exam Vital Signs: Vital Signs: Last Vital Signs Temp 97 F 04/01/22 15:23 Pulse 68 04/01/22 15:23 Resp 18 04/01/22 15:23 BP 113/64 04/01/22 15:23 Pulse Ox 100 04/01/22 15:23 BMI result Body Mass Index 28.5 Const: Other: General:? Alert or iented x3, no acut e distress Neck no JVD, normal inspe ction Resp:? CTA b ilateral, no wheez e, no rhonchi no a ccessory muscles u sed CVS: S1,S2,RRR GI: soft, non ten kehinde, non distended bilateral groin / scrotum hyperemi c with dry scaly r adam Neuro:? motor grossly intact, al ert Psych: appropr iate affect, appro priate insight? ex t: right bka, left big toe ulcer No redness, no drain age. Objective Data Active Medications Acetaminophen (Acetaminophen 325 Mg Tablet) 650 mg PO Q6H PRN PRN Reason: Pain, Mild (Pain Scale 1-3) Albuterol Sulfate (Albuterol Sulfate 90 Mcg 8 Gm Inhaler) 2 puff INHALE Q4H PRN PRN Reason: dyspnea Aspirin (Aspirin Enteric Coated 81 Mg Tablet.) 81 mg PO DAILY [facility] Last Admin: 04/01/22 09:10 Dose: Not Given Documented by: NIC Non-Admin Reason: Patient Refused Atorvastatin Calcium (Atorvastatin Calcium 20 Mg Tablet) 20 mg PO BEDTIME [facility] Last Admin: 03/31/22 22:47 Dose: Not Given Documented by: BENJI Non-Admin Reason: Patient Refused Carvedilol (Carvedilol 6.25 Mg Tablet) 6.25 mg PO BID [facility]; Protocol Last Admin: 04/01/22 09:11 Dose: Not Given Documented by: NIC Non-Admin Reason: Patient Refused Clopidogrel Bisulfate (Clopidogrel Bisulfate 75 Mg Tablet) 75 mg PO DAILY [facility] Last Admin: 04/01/22 09:11 Dose: Not Given Documented by: NIC Non-Admin Reason: Patient Refused Dextrose (Dextrose 50 % 25 Gm/50 Ml Syringe) 25 gm IVPUSH Q15M PRN; Protocol PRN Reason: per Hypoglycemia Standing Ord. Doxycycline Hyclate (Doxycycline Hyclate 100 Mg Tablet) 100 mg PO BID [facility] Last Admin: 04/01/22 14:25 Dose: 100 mg Documented by: NIC Enoxaparin Sodium (Enoxaparin Sodium 40 Mg/0.4 Ml Syringe) 40 mg SUBCUT Q24H [facility] Last Admin: 04/01/22 09:11 Dose: Not Given Documented by: NIC Non-Admin Reason: Patient Refused Famotidine (Famotidine 20 Mg Tablet) 20 mg PO BID [facility] Last Admin: 04/01/22 09:11 Dose: Not Given Documented by: NIC Non-Admin Reason: Patient Refused Fluconazole (Fluconazole 100 Mg Tablet) 100 mg PO DAILY [facility] Last Admin: 04/01/22 09:11 Dose: Not Given Documented by: NIC Non-Admin Reason: Patient Refused Furosemide (Furosemide 40 Mg Tablet) 40 mg PO DAILY [facility]; Protocol Last Admin: 04/01/22 09:12 Dose: Not Given Documented by: NIC Non-Admin Reason: Patient Refused Gabapentin (Gabapentin 100 Mg Capsule) 200 mg PO TID [facility] Last Admin: 04/01/22 13:49 Dose: 200 mg Documented by: NIC Glucose (Glucose Gel 15 Gm Gel..Gram.) 15 gm PO Q15M PRN; Protocol PRN Reason: per Hypoglycemia Standing Ord. Piperacillin Sod/Tazobactam (Sod 3.375 gm/ Sodium Chloride) 50 mls @ 100 mls/hr IV Q6H [facility] Last Infusion: 04/01/22 14:26 Dose: 0 mls/hr Documented by: NIC Insulin Glargine (Insulin Glargine,Hum.Rec.Anlog 100 Unit/Ml 10 Ml Vial) 12 unit SUBCUT BEDTIME [facility] Last Admin: 03/31/22 22:48 Dose: Not Given Documented by: BENJI Non-Admin Reason: Patient Refused Insulin Human Lispro (Insulin Lispro 100 Unit/Ml 3 Ml Vial) 0 unit SUBCUT QIDACHS [facility]; Protocol Last Admin: 04/01/22 11:46 Dose: Not Given Documented by: NIC Non-Admin Reason: No Insulin Coverage Insulin Human Lispro (Insulin Lispro 100 Unit/Ml 3 Ml Vial) 5 unit SUBCUT TIDAC [facility] Last Admin: 04/01/22 11:47 Dose: Not Given Documented by: NIC Non-Admin Reason: refused lunch Lidocaine (Lidocaine 4 % Patch Adh..Patch) 1 patch TRANSDERMA DAILY [facility] Last Admin: 04/01/22 09:13 Dose: Not Given Documented by: NIC Non-Admin Reason: Patient Refused Loratadine (Loratadine 10 Mg Tablet) 10 mg PO DAILY [facility] Last Admin: 04/01/22 09:16 Dose: Not Given Documented by: NIC Non-Admin Reason: Patient Refused Melatonin (Melatonin 3 Mg Tablet) 6 mg PO BEDTIME PRN PRN Reason: Insomnia Methadone HCl (Methadone Hcl 20 Mg/2 Ml Oral.Conc) 50 mg PO DAILY [facility] Last Admin: 04/01/22 09:09 Dose: 50 mg Documented by: NIC Montelukast Sodium (Montelukast Sodium 10 Mg Tablet) 10 mg PO BEDTIME [facility] Last Admin: 03/31/22 22:49 Dose: Not Given Documented by: BENJI Non-Admin Reason: Patient Refused Ondansetron HCl (Ondansetron Hcl 4 Mg/2 Ml Vial) 4 mg IVPUSH Q8H PRN PRN Reason: Nausea and Vomiting Last Admin: 03/30/22 19:02 Dose: 4 mg Documented by: ML Pharmacy Consult (Consult Rx Perform Med Rec) 1 each MISCELLANE ONCE PRN PRN Reason: Consult order Sacubitril/Valsartan (Sacubitril/Valsartan 1 Tab Tablet) 1 tab PO BID [facility]; Protocol Last Admin: 04/01/22 09:13 Dose: Not Given Documented by: HO.N-ARMKA Non-Admin Reason: Patient Refused Senna (Sennosides 8.6 Mg Tablet) 17.2 mg PO BEDTIME PRN PRN Reason: Constipation Sodium Chloride (0.9 % Sodium Chloride Flush 3 Ml Syringe) 3 ml IVFLUSH QSHIFT [facility] Last Admin: 04/01/22 09:09 Dose: 3 ml Documented by: NIC Spironolactone (Spironolactone 25 Mg Tablet) 12.5 mg PO DAILY [facility]; Protocol Last Admin: 04/01/22 09:13 Dose: Not Given Documented by: NIC Non-Admin Reason: Patient Refused Tamsulosin HCl (Tamsulosin Hcl 0.4 Mg Capsule) 0.4 mg PO DAILY@1800 [facility] Last Admin: 03/31/22 18:04 Dose: 0.4 mg Documented by: MAURY Zinc Sulfate (Zinc Sulfate 220 Mg Capsule) 220 mg PO DAILY [facility] Last Admin: 04/01/22 09:13 Dose: Not Given Documented by: NIC Non-Admin Reason: Patient Refused Labs CBC & Chem 7: 04/01/22 09:06 04/01/22 08:10 Labs: Laboratory Results - last 24 hr 03/31/22 03/31/22 03/31/22 16:00 18:43 19:55 MCV MCH MCHC RDW Plt Count MPV Absolute Nucleated RBC Nucleated RBC % (auto) Anion Gap 12 Estim Creat Clear Calc 68.0 Estimated GFR > 60 POC Glucose 117 H 127 H Random Glucose 136 H D Fasting Glucose Calcium 8.8 Total Bilirubin AST ALT Alkaline Phosphatase Total Protein Albumin 04/01/22 04/01/22 04/01/22 07:28 08:10 09:06 MCV 86.1 MCH 26.6 L MCHC 31.0 RDW 19.6 H Plt Count 83 L MPV 10.9 Absolute Nucleated RBC 0.000 Nucleated RBC % (auto) 0.0 Anion Gap 16 Estim Creat Clear Calc 61.6 Estimated GFR 54 POC Glucose 125 H Random Glucose TNP Fasting Glucose 133 H Calcium 8.8 Total Bilirubin 1.2 H AST 160 H ALT 131 H Alkaline Phosphatase 79 D Total Protein 5.4 L D Albumin 2.4 L D 04/01/22 04/01/22 11:35 15:29 MCV MCH MCHC RDW Plt Count MPV Absolute Nucleated RBC Nucleated RBC % (auto) Anion Gap Estim Creat Clear Calc Estimated GFR POC Glucose 124 H 111 Random Glucose Fasting Glucose Calcium Total Bilirubin AST ALT Alkaline Phosphatase Total Protein Albumin Microbiology Microbiology Results: Microbiology 03/29/22 22:44 Blood Culture - Preliminary Blood - Subclavian No growth after 48 hours. 03/29/22 22:13 Blood Culture - Preliminary Blood - Subclavian No growth after 48 hours. Assessment and Plan (1) Balanitis: Status: Acute (2) Cellulitis: Status: Acute (3) Diabetes mellitus, type 2: Status: Acute (4) CHF (congestive heart failure): Status: Acute Plan 51-year-old male with a past medical history of hypertension, hyperlipidemia, diabetes, CHF, BPH, compression fracture of T9, peripheral vascular disease, asthma, bipolar, history of osteomyelitis, opiate dependence presented to the hospital today with a chief complaint of pain and swelling of the scrotum as well as the penis. 1. acute Scrotal cellulitis/Balanitis: -continue iv Zosyn, will add by mouth doxycycline, continue Diflucan for anti fungal coverage as per ID, blood cultures x2 negative times 48 hours no recurrent fevers, [place] [address] bumped from 11.2 on admission, continue current antibiotics and follow clinical course 2. Diabetes type 2 - decreased by mouth intake, blood sugar less than 150, on Lantus 12 units, insulin sliding scale and ADA diet, will reduce dose of Lantus to 8 units 3. acute on chronic systolic/diastolic CHF (by history) noted to have soft blood pressures therefore discontinued Bumex, continue Coreg/Entresto/Aldactone 4. Opiate use disorder -continue methadone as ordered. 5. hyperkalemia repeat level normalized need close follow-up since patient on Aldactone and Entresto Lovenox Full code Requires ongoing hospitalization for treatment of scrotal cellulitis with IV antibiotics Quality Stroke Does the patient have a stroke diagnosis?: No VTE Prior VTE?: No VTE Risk Level:: Medical - moderate - high VTE Device Contraindication: Treatment Not Indicated VTE Drug Contraindication: N/A - Med Ordered
[2022-04-01] MEDS: Tamsulosin HCL 0.4 MG CAPSULE PO (16:48)
[2022-04-01 19:19] VITALS: BP 118/65; PULSE 71; RESP 17; TEMP 36; O2SAT 99
[2022-04-01 19:46] LABS: Glucose, Whole Blood 129 mg/dL (60-115)
[2022-04-01] MEDS: Famotidine 20 MG TABLET PO (20:52)
[2022-04-01] MEDS: Montelukast Sodium 10 MG TABLET PO (20:52)
[2022-04-01] MEDS: carvediloL 6.25 MG TABLET PO (20:53)
[2022-04-01] MEDS: Atorvastatin Calcium 20 MG TABLET PO (20:53)
[2022-04-01] MEDS: Sacubitril/Valsartan 24/26 1 TAB TABLET PO (20:53)
[2022-04-01 23:20] VITALS: BP 112/67; PULSE 73; RESP 18; TEMP 36.3; O2SAT 97
--- NOTE | 2022-04-01 23:28 | PC.NURSE ---
patient refusing to eat ,held Lantus insulin this evening
[2022-04-02] VITALS (8 sets, daily range): BP systolic 94–114; BP diastolic 52–65; PULSE 61–76; RESP 14–18; TEMP 36.2–36.9; O2SAT 91–98
[2022-04-02] MEDS: 0.9 % Sodium Chloride Flush 3 ML SYRINGE IVFLUSH ×3 (00:16→20:42)
[2022-04-02] MEDS: Piperacillin Sodium/Tazobactam 3.375 GM in 0.9 % Sodium Chloride 50 ML IV ×2 (00:16→06:17)
[2022-04-02 07:55] LABS: Glucose, Whole Blood 75 mg/dL (60-115)
[2022-04-02] MEDS: Fluconazole 100 MG TABLET PO (10:03)
[2022-04-02] MEDS: Sacubitril/Valsartan 24/26 1 TAB TABLET PO (10:03)
[2022-04-02] MEDS: carvediloL 6.25 MG TABLET PO ×2 (10:03→20:36)
[2022-04-02] MEDS: Gabapentin 100 MG CAPSULE 200 MG PO ×3 (10:03→20:36)
[2022-04-02] MEDS: Loratadine 10 MG TABLET PO (10:03)
[2022-04-02] MEDS: Famotidine 20 MG TABLET PO (10:04)
[2022-04-02] MEDS: Furosemide 40 MG TABLET PO (10:04)
[2022-04-02] MEDS: Clopidogrel Bisulfate 75 MG TABLET PO (10:04)
[2022-04-02] MEDS: Aspirin Enteric Coated 81 MG TABLET.DR PO (10:04)
[2022-04-02] MEDS: Zinc Sulfate 220 MG CAPSULE PO (10:04)
[2022-04-02] MEDS: methADONE HCl 20 MG/2 ML ORAL.CONC 50 MG PO (10:04)
[2022-04-02] MEDS: Spironolactone 25 MG TABLET 12.5 MG PO (10:06)
[2022-04-02 11:51] LABS: Glucose, Whole Blood 103 mg/dL (60-115)
--- NOTE | 2022-04-02 12:42 | P.PNIM_ITS ---
Subjective Subjective Date of Service: 04/02/22 Interval History: No acute issues overnight. States scrotum is better Review of Systems Denies chest pain Denies shortness of breath Denies nausea vomiting diarrhea Denies fever chills Physical Exam Vital Signs: Vital Signs: Last Vital Signs Temp 98.5 F 04/02/22 11:44 Pulse 76 04/02/22 11:44 Resp 14 04/02/22 11:44 BP 110/65 04/02/22 11:44 Pulse Ox 96 04/02/22 11:44 BMI result Body Mass Index 28.5 Const: Other: Awake alert no acute distress Resp: Other: Clear to auscultation bilaterally no rales rhonchi or wheezes Cardio: Other: No S4; positive S1-S2; no S3 murmurs rubs or gallops : Other: Scrotum less edematous/erythematous Extrem: Other: No edema bilaterally Objective Data Active Medications Acetaminophen (Acetaminophen 325 Mg Tablet) 650 mg PO Q6H PRN PRN Reason: Pain, Mild (Pain Scale 1-3) Albuterol Sulfate (Albuterol Sulfate 90 Mcg 8 Gm Inhaler) 2 puff INHALE Q4H PRN PRN Reason: dyspnea Aspirin (Aspirin Enteric Coated 81 Mg Tablet.) 81 mg PO DAILY [facility] Last Admin: 04/02/22 10:04 Dose: 81 mg Documented by: MAURY Atorvastatin Calcium (Atorvastatin Calcium 20 Mg Tablet) 20 mg PO BEDTIME [facility] Last Admin: 04/01/22 20:53 Dose: 20 mg Documented by: ML Carvedilol (Carvedilol 6.25 Mg Tablet) 6.25 mg PO BID [facility]; Protocol Last Admin: 04/02/22 10:03 Dose: 6.25 mg Documented by: MAURY Clopidogrel Bisulfate (Clopidogrel Bisulfate 75 Mg Tablet) 75 mg PO DAILY [facility] Last Admin: 04/02/22 10:04 Dose: 75 mg Documented by: MAURY Dextrose (Dextrose 50 % 25 Gm/50 Ml Syringe) 25 gm IVPUSH Q15M PRN; Protocol PRN Reason: per Hypoglycemia Standing Ord. Doxycycline Hyclate (Doxycycline Hyclate 100 Mg Tablet) 100 mg PO BID [facility] Last Admin: 04/02/22 10:04 Dose: 100 mg Documented by: MAURY Enoxaparin Sodium (Enoxaparin Sodium 40 Mg/0.4 Ml Syringe) 40 mg SUBCUT Q24H [facility] Last Admin: 04/02/22 10:15 Dose: Not Given Documented by: MAURY Non-Admin Reason: Patient Refused Famotidine (Famotidine 20 Mg Tablet) 20 mg PO BID [facility] Last Admin: 04/02/22 10:04 Dose: 20 mg Documented by: MAURY Fluconazole (Fluconazole 100 Mg Tablet) 100 mg PO DAILY [facility] Last Admin: 04/02/22 10:03 Dose: 100 mg Documented by: MAURY Furosemide (Furosemide 40 Mg Tablet) 40 mg PO DAILY [facility]; Protocol Last Admin: 04/02/22 10:04 Dose: 40 mg Documented by: MAURY Gabapentin (Gabapentin 100 Mg Capsule) 200 mg PO TID [facility] Last Admin: 04/02/22 10:03 Dose: 200 mg Documented by: MAURY Glucose (Glucose Gel 15 Gm Gel..Gram.) 15 gm PO Q15M PRN; Protocol PRN Reason: per Hypoglycemia Standing Ord. Piperacillin Sod/Tazobactam (Sod 3.375 gm/ Sodium Chloride) 50 mls @ 100 mls/hr IV Q6H [facility] Last Infusion: 04/02/22 07:14 Dose: 0 mls/hr Documented by: MARGIE Insulin Glargine (Insulin Glargine,Hum.Rec.Anlog 100 Unit/Ml 10 Ml Vial) 8 unit SUBCUT BEDTIME [facility] Last Admin: 04/01/22 20:54 Dose: Not Given Documented by: ML Non-Admin Reason: refused dinner,refuses to eat Insulin Human Lispro (Insulin Lispro 100 Unit/Ml 3 Ml Vial) 0 unit SUBCUT QI DACHS [facility]; Protocol Last Admin: 04/02/22 12:05 Dose: Not Given Documented by: MAURY Non-Admin Reason: No Insulin Coverage Insulin Human Lispro (Insulin Lispro 100 Unit/Ml 3 Ml Vial) 5 unit SUBCUT TIDAC [facility] Last Admin: 04/02/22 12:05 Dose: Not Given Documented by: MAURY Non-Admin Reason: No Insulin Coverage Lidocaine (Lidocaine 4 % Patch Adh..Patch) 1 patch TRANSDERMA DAILY [facility] Last Admin: 04/02/22 10:05 Dose: Not Given Documented by: MAURY Non-Admin Reason: Patient Refused Loratadine (Loratadine 10 Mg Tablet) 10 mg PO DAILY [facility] Last Admin: 04/02/22 10:03 Dose: 10 mg Documented by: MAURY Melatonin (Melatonin 3 Mg Tablet) 6 mg PO BEDTIME PRN PRN Reason: Insomnia Methadone HCl (Methadone Hcl 20 Mg/2 Ml Oral.Conc) 50 mg PO DAILY [facility] Last Admin: 04/02/22 10:04 Dose: 50 mg Documented by: MAURY Montelukast Sodium (Montelukast Sodium 10 Mg Tablet) 10 mg PO BEDTIME [facility] Last Admin: 04/01/22 20:52 Dose: 10 mg Documented by: ML Ondansetron HCl (Ondansetron Hcl 4 Mg/2 Ml Vial) 4 mg IVPUSH Q8H PRN PRN Reason: Nausea and Vomiting Last Admin: 03/30/22 19:02 Dose: 4 mg Documented by: ML Pharmacy Consult (Consult Rx Perform Med Rec) 1 each MISCELLANE ONCE PRN PRN Reason: Consult order Sacubitril/Valsartan (Sacubitril/Valsartan 1 Tab Tablet) 1 tab PO BID [facility]; Protocol Last Admin: 04/02/22 10:03 Dose: 1 tab Documented by: MAURY Senna (Sennosides 8.6 Mg Tablet) 17.2 mg PO BEDTIME PRN PRN Reason: Constipation Sodium Chloride (0.9 % Sodium Chloride Flush 3 Ml Syringe) 3 ml IVFLUSH QSHIFT [facility] Last Admin: 04/02/22 10:03 Dose: 3 ml Documented by: MAURY Spironolactone (Spironolactone 25 Mg Tablet) 12.5 mg PO DAILY [facility]; Protocol Last Admin: 04/02/22 10:06 Dose: 12.5 mg Documented by: MAURY Tamsulosin HCl (Tamsulosin Hcl 0.4 Mg Capsule) 0.4 mg PO DAILY@1800 [facility] Last Admin: 04/01/22 16:48 Dose: 0.4 mg Documented by: ML Zinc Sulfate (Zinc Sulfate 220 Mg Capsule) 220 mg PO DAILY [facility] Last Admin: 04/02/22 10:04 Dose: 220 mg Documented by: MAURY Labs CBC & Chem 7: 04/01/22 09:06 04/01/22 08:10 Labs: Laboratory Results - last 24 hr 04/01/22 04/01/22 04/02/22 15:29 19:26 07:25 POC Glucose 111 129 H 75 04/02/22 11:42 POC Glucose 103 Assessment and Plan (1) Cellulitis: Status: Acute (2) Diabetes mellitus, type 2: Status: Acute (3) CHF (congestive heart failure): Status: Acute Plan 51-year-old male with a past medical history of hypertension, hyperlipidemia, diabetes, CHF, BPH, compression fracture of T9, peripheral vascular disease, asthma, bipolar, history of osteomyelitis, opiate dependence [facility] today with a chief complaint of pain and swelling of the scrotum as well as the penis. 1.Scrotal cellulitis/Balanitis: -continue Zosyn/doxycycline(PO)... Switch to augmentin when D/C -Diflucan for antifungal coverage 2. Diabetes type 2 -acceptable control on current therapies -continue list pro correctional scale as well as outpatient therapies -ADA diet 3. CHF (by history) -continue Coreg/Entresto/Aldactone -asymptomatic; adjust as indicated 4. Opiate use disorder -continue methadone as ordered. -verified by care team Marta Full code Requires ongoing hospitalization for treatment of scrotal cellulitis with IV antibiotics Quality Stroke Does the patient have a stroke diagnosis?: No VTE Prior VTE?: No VTE Risk Level:: Medical - moderate - high VTE Device Contraindication: Treatment Not Indicated VTE Drug Contraindication: N/A - Med Ordered
--- NOTE | 2022-04-02 13:18 | PC.NURSE ---
pt iv infiltrated, removed at 1215. Nurse unable to replace IV on first try. 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 made aware, is okay with pt not having IV access and verbalized that pt will switch to PO abx.
[2022-04-02 16:01] LABS: Glucose, Whole Blood 91 mg/dL (60-115)
[2022-04-02] MEDS: Tamsulosin HCL 0.4 MG CAPSULE PO (17:40)
[2022-04-02] MEDS: Amoxicillin/Potassium Clav 875 MG TABLET PO (17:40)
[2022-04-02 19:54] LABS: Glucose, Whole Blood 71 mg/dL (60-115)
[2022-04-02] MEDS: Montelukast Sodium 10 MG TABLET PO (20:35)
[2022-04-03 00:21] LABS: Glucose, Whole Blood 87 mg/dL (60-115)
[2022-04-03 03:34] VITALS: BP 102/60; RESP 18; TEMP 36.8; O2SAT 96
[2022-04-03] MEDS: Amoxicillin/Potassium Clav 875 MG TABLET PO ×2 (05:51→18:27)
[2022-04-03 07:11] LABS: Basophils Percent Auto 0.4 % (0-2); Eosinophils Absolute Auto 0.2 X10*3/uL (0.0-0.4); Eosinophils Percent Auto 1.7 % (0-4); Hematocrit 41.2 % (42.0-52.0); Imm Gran Abs Auto 0.03 X10*3/uL (0.00-0.03); Imm Gran Pct Auto 0.3 % (0.0-0.4); Lymphocytes Absolute Auto 1.3 X10*3/uL (1.2-4.9); Lymphocytes Percent Auto 13.5 % (20-40); MANUAL DIFF FLAG SCAN; Mean Corpuscular HGB Conc 31.6 g/dl (31.0-36.0); Mean Corpuscular Hemoglobin 26.6 pg (27.0-33.0); Mean Corpuscular Volume 84.4 fL (80.0-98.0); Mean Platelet Volume 10.6 fL (9.4-12.4); Monocytes Percent Auto 21.4 % (2-11); Neutrophils Absolute Auto 5.9 x10*3/uL (2.0-8.3); Neutrophils Percent Auto 62.7 % (45-73); Red Blood Count 4.88 X10*6/uL (4.60-5.80); Red Cell Distribution Width 17.7 % (11.0-16.0); SCAN SMEAR FLAG 1; White Blood Count 9.5 X10*3/uL (4.8-10.8)
[2022-04-03 07:22] LABS: Platelet Count 63 X10*3/uL (160-400)
[2022-04-03 07:23] LABS: Alanine Aminotransferase 68 U/L (0-40); Albumin Level 2.7 g/dL (3.5-5.0); Alkaline Phosphatase 69 U/L (39-117); Anion Gap 12 (12-20); Aspartate Amino Transferase 86 U/L (5-37); Blood Urea Nitrogen 17 mg/dL (9-16); Calcium 8.6 mg/dL (8.4-10.2); Carbon Dioxide 33 mmol/L (22-29); Chloride 94 mmol/L (96-108); Creatinine Clr Calc Pharmacy 101.2; Estimated Glomerular Filt Rate > 60; Glucose Fasting 129 mg/dL (60-99); Potassium 3.5 mmol/L (3.3-5.1); Sodium 135 mmol/L (135-145); Total Protein 5.2 g/dL (6.5-8.0)
[2022-04-03 07:29] VITALS: BP 107/71; PULSE 77; RESP 20; TEMP 36.9; O2SAT 97
[2022-04-03 07:44] LABS: SLIDE REVIEW VERIFIED
[2022-04-03 07:53] LABS: Glucose, Whole Blood 151 mg/dL (60-115)
[2022-04-03] MEDS: Aspirin Enteric Coated 81 MG TABLET.DR PO (08:36)
[2022-04-03] MEDS: Famotidine 20 MG TABLET PO ×2 (08:37→19:52)
[2022-04-03] MEDS: Zinc Sulfate 220 MG CAPSULE PO (08:37)
[2022-04-03] MEDS: Sacubitril/Valsartan 24/26 1 TAB TABLET PO ×2 (08:37→19:51)
[2022-04-03] MEDS: Loratadine 10 MG TABLET PO (08:37)
[2022-04-03] MEDS: carvediloL 6.25 MG TABLET PO ×2 (08:37→19:51)
[2022-04-03] MEDS: Furosemide 40 MG TABLET PO (08:37)
[2022-04-03] MEDS: Clopidogrel Bisulfate 75 MG TABLET PO (08:37)
[2022-04-03] MEDS: Gabapentin 100 MG CAPSULE 200 MG PO ×3 (08:37→19:51)
[2022-04-03] MEDS: Fluconazole 100 MG TABLET PO (08:37)
[2022-04-03] MEDS: methADONE HCl 20 MG/2 ML ORAL.CONC 50 MG PO (08:38)
[2022-04-03] MEDS: Spironolactone 25 MG TABLET 12.5 MG PO (08:38)
[2022-04-03 11:27] VITALS: BP 98/62; PULSE 75; RESP 20; TEMP 36; O2SAT 94
--- NOTE | 2022-04-03 11:40 | PM.DS ---
DS: Providers Provider Date of Service: 04/03/22 Date of admission: 03/30/22 04:14 Date of discharge: 04/03/22 Primary care physician: Ashley Pendleton MD Consults: 03/30/22 00:40 Consult to General Surgery Stat Consulting Provider: Jh Lima Reason for consultation: balanitis Consult to Infectious Diseases Stat Consulting Provider: Zully Roblero Reason for consultation: ? fungal infection Consult to Urology Stat Consulting Provider: Hernan Donovan Reason for consultation: swollen penis, scrotum 03/30/22 01:00 Consult to General Surgery Routine Consulting Provider: Jh Lima Reason for consultation: penile/scrtal cellulitis Consult to Infectious Diseases Routine Consulting Provider: Zully Roblero Reason for consultation: balanitis; scrotal cellulitis Consult to Urology Routine Consulting Provider: Hernan Donovan Reason for consultation: balanitis/ scrotal cellulitis 03/30/22 04:08 Addiction Medicine Routine Consulting Provider: Yin Pacheco Reason for consultation: pt on methadone DS: Diagnosis Discharge Diagnosis (1) Cellulitis: Status: Acute (2) Diabetes mellitus, type 2: Status: Acute (3) CHF (congestive heart failure): Status: Acute DS: Summary Hospital Course Hospital Course: 51-year-old male with a past medical history of hypertension, hyperlipidemia, diabetes, CHF, BPH, compression fracture of T9, peripheral vascular disease, asthma, bipolar, history of osteomyelitis, opiate dependence presented to the hospital today with a chief complaint of pain and swelling of the scrotum as well as the penis. Patient reports that he has been having these symptoms for the past 4 days.? Noted to have redness, swelling, pain and his penis.? Also noted swelling of the scrotum.? Hospital course Seen in consultation by Urology/surgery/infectious disease. CT scan of abdomen pelvis demonstrated edema of the penis and scrotum however no gas or hydrocele. Patient was admitted, started on Zosyn, vancomycin, Diflucan. Alberts was placed due to edema. Over the next 72 hours patient improved with marked decrease in edema. The night before his discharge he was switched to Augmentin without issue. At this time he will be discharged to complete a course of Augmentin and Diflucan along with doxycycline. He will follow-up with PCP as scheduled Time Spent with Patient Time attestation: Total time spent providing and/or coordinating discharge services: Discharge coordination time: Greater than 30 minutes Quality: Safe Use of Opioids Does Pt have an Active Cancer Diagnosis on the Problem List?: No Quality: Stroke Does the patient have a stroke diagnosis?: No Physical Exam Vital Signs: Vital Signs: Last Vital Signs Temp 96.8 F 04/03/22 11:27 Pulse 75 04/03/22 11:27 Resp 20 04/03/22 11:27 BP 98/62 04/03/22 11:27 Pulse Ox 94 04/03/22 11:27 BMI result Body Mass Index 28.5 Const: Other: Awake alert no acute distress Resp: Other: Clear to auscultation bilaterally no rales rhonchi or wheezes Cardio: Other: No S4; positive S1-S2; no S3 murmurs rubs or gallops : Other: Scrotum less edematous/erythematous Extrem: Other: No edema bilaterally DS: Data Data Completed and Pending Completed studies during hospitalization [Text1]: Procedures Dilation of Left Anterior Tibial Artery using Drug-Coated Balloon, Percutaneous Approach (11/24/20) Dilation of Left Peroneal Artery using Drug-Coated Balloon, Percutaneous Approach (11/24/20) Dilation of Left Peroneal Artery, Percutaneous Approach (12/30/21) Dilation of Left Popliteal Artery using Drug-Coated Balloon, Percutaneous Approach (11/24/20) Drainage of Chest Wall, Percutaneous Approach, Diagnostic (11/24/20) Drainage of Right Pleural Cavity, Percutaneous Approach (08/31/20) Excision of Left Foot Subcutaneous Tissue and Fascia, Open Approach (02/12/21) Excision of Left Metatarsal, Open Approach (12/30/21) Insertion of Infusion Device into Left External Jugular Vein, Percutaneous Approach (03/08/22) Insertion of Infusion Device into Superior Vena Cava, Percutaneous Approach (02/12/21) Transfusion of Nonautologous Red Blood Cells into Peripheral Vein, Percutaneous Approach (01/02/21) Ultrasonography of Superior Vena Cava, Guidance (02/12/21) Labs on day of discharge: Laboratory Results - last 24 hr 04/02/22 04/02/22 04/02/22 11:42 15:49 19:05 WBC RBC Hgb Hct MCV MCH MCHC RDW Plt Count MPV Immature Gran % (Auto) Neut % (Auto) Lymph % (Auto) [place] % (Auto) Eos % (Auto) Baso % (Auto) Lymph # (Auto) [place] # (Auto) Eos # (Auto) Baso # (Auto) Abs Immat Gran (auto) Absolute Neuts (auto) Absolute Nucleated RBC Nucleated RBC % (auto) Smear Tech's Comments Sodium Potassium Chloride Carbon Dioxide Anion Gap BUN Creatinine Estim Creat Clear Calc Estimated GFR POC Glucose 103 91 71 Fasting Glucose Calcium Total Bilirubin AST ALT Alkaline Phosphatase Total Protein Albumin 04/02/22 04/03/22 04/03/22 23:36 06:27 06:27 WBC 9.5 RBC 4.88 D Hgb 13.0 L D Hct 41.2 L D MCV 84.4 MCH 26.6 L MCHC 31.6 RDW 17.7 H Plt Count 63 L MPV 10.6 Immature Gran % (Auto) 0.3 Neut % (Auto) 62.7 Lymph % (Auto) 13.5 L [place] % (Auto) 21.4 H Eos % (Auto) 1.7 Baso % (Auto) 0.4 Lymph # (Auto) 1.3 [place] # (Auto) 2.0 H Eos # (Auto) 0.2 Baso # (Auto) 0.0 Abs Immat Gran (auto) 0.03 Absolute Neuts (auto) 5.9 Absolute Nucleated RBC 0.000 Nucleated RBC % (auto) 0.0 Smear Tech's Comments VERIFIED Sodium 135 Potassium 3.5 D Chloride 94 L Carbon Dioxide 33 H Anion Gap 12 BUN 17 H D Creatinine 0.84 Estim Creat Clear Calc 101.2 Estimated GFR > 60 POC Glucose 87 Fasting Glucose 129 H Calcium 8.6 Total Bilirubin 1.0 AST 86 H ALT 68 H Alkaline Phosphatase 69 Total Protein 5.2 L Albumin 2.7 L 04/03/22 07:27 WBC RBC Hgb Hct MCV MCH MCHC RDW Plt Count MPV Immature Gran % (Auto) Neut % (Auto) Lymph % (Auto) [place] % (Auto) Eos % (Auto) Baso % (Auto) Lymph # (Auto) [place] # (Auto) Eos # (Auto) Baso # (Auto) Abs Immat Gran (auto) Absolute Neuts (auto) Absolute Nucleated RBC Nucleated RBC % (auto) Smear Tech's Comments Sodium Potassium Chloride Carbon Dioxide Anion Gap BUN Creatinine Estim Creat Clear Calc Estimated GFR POC Glucose 151 H Fasting Glucose Calcium Total Bilirubin AST ALT Alkaline Phosphatase Total Protein Albumin Preliminary micro results at discharge 03/29/22 22:44 Blood Culture - Preliminary Blood - Subclavian No growth after 48 hours. 03/29/22 22:13 Blood Culture - Preliminary Blood - Subclavian No growth after 48 hours. Discharge Plan Discharge Patient Disposition: Home Health Service Discharge Diagnosis: Scrotal Cellulitis Referrals: Ashley Pendleton MD [Primary Care Provider] - 1 Week Discharge Medications: New fluconazole 100 mg Tablet 100 mg PO DAILY Qty: 7 0RF doxycycline hyclate 100 mg Tablet 100 mg PO BID Qty: 14 0RF amoxicillin-pot clavulanate 875-125 mg Tablet 875 mg PO Q12H Qty: 14 0RF Continued bumetanide 2 mg Tablet 2 mg PO BID 0RF Entresto 24-26 mg tablet 1 tab PO BID 0RF furosemide 40 mg tablet 1 tab PO DAILY 0RF carvedilol 6.25 mg tablet 1 tab PO BID 0RF atorvastatin 20 mg tablet 1 tab PO BEDTIME 0RF cetirizine 10 mg tablet 1 tab PO QAM 0RF clopidogrel 75 mg tablet 1 tab PO QAM 0RF aspirin 81 mg tablet,delayed release (DR/EC) 1 tab PO QAM 0RF spironolactone 25 mg tablet 0.5 tab PO QAM 0RF famotidine 20 mg tablet 1 tab PO BID 0RF tamsulosin 0.4 mg capsule 1 cap PO QPM 0RF lidocaine [Lidoderm] 5 % adhesive patch,medicated 1 patch topical DAILY 0RF fluticasone propion-salmeterol [Advair Diskus] 500-50 mcg/dose blister with device 1 puff PO BID 0RF montelukast 10 mg tablet 1 tab PO QPM 0RF gabapentin 100 mg capsule 2 cap PO TID 0RF albuterol sulfate [ProAir HFA] 90 mcg/actuation HFA aerosol inhaler 2 puff inhalation Q4-6H PRN (Reason: dyspnea) 0RF fluticasone propionate 50 mcg/actuation spray,suspension 1 - 2 spray intranasal DAILY PRN (Reason: Allergy Symptoms) 0RF zinc sulfate 50 mg zinc (220 mg) capsule 1 cap PO DAILY 0RF Lantus Solostar U-100 Insulin 100 unit/mL (3 mL) insulin pen 12 unit subcut BEDTIME 0RF insulin aspart U-100 [Novolog Flexpen U-100 Insulin] 100 unit/mL (3 mL) Insulin Pen 5 unit SUBCUT TID 0RF methadone 10 mg/mL Concentrate 52 mg PO DAILY 0RF Discontinued linezolid 600 mg Tablet 600 mg PO Q12H Qty: 76 0RF Discharge Orders: Discharge Order (Routine); Ordered 04/03/22 Ordered By: Wilfred Dueñas Diet: advance to usual diet Activity on Discharge: As tolerated Stand Alone Forms: Patient Portal Discharge page Care Plan Goals: Complete course of Augmentin, doxycycline, diflucan Health Concerns: Follow-up with PCP in about 2 weeks Plan of Treatment: Resume all outpatient therapies and Assessment: As per discharge summary
--- NOTE | 2022-04-03 11:40 | PC.NURSE ---
Per , garcia removed without complication at 1120. Pt will be due to void by 1720 and has urinal at bedside.
[2022-04-03 11:44] LABS: Glucose, Whole Blood 145 mg/dL (60-115)
--- NOTE | 2022-04-03 12:02 | MHC.CM.PN ---
Addendum entered by Crissy Rubin 04/03/22 15:55: CM FINALLY RECEIVED A RETURN CALL FROM [facility] NURSE, LAURA [phone]. SHE REPORTS THEY WILL NOT BE ABLE TO DELIVER PTS METHADONE UNTIL MONDAY SHE SAYS THEY WILL NEED HIS LAST DOSE LETTER TOMORROW MORNING EARLY POSSIBLE AND THEN WILL CARPORT ERECTOR HIS MEDS FOR MONDAY DELIVERY. PT WILL DC HOME TOMORROW FOLLOWING HIS DOSE OF METHADONE. BLS TRANSPORT BOOKED ON WILL CALL Original Note: PT CLEARED TO DC HOME TODAY. PT IS ACTIVE WITH [facility] [facility] FOR METHADONE DELIVERY CM HAS MESSAGED THEM VIA [employer] AND FAXED UPDATES TO THE OFFICE, AWAITING RESPONSE TO CONFIRM THEY WILL BE ABLE TO RESUME METHADONE DELIVERY TOMORROW
[2022-04-03 16:00] VITALS: BP 109/69; PULSE 74; RESP 18; TEMP 36.3; O2SAT 99
[2022-04-03 16:40] LABS: Glucose, Whole Blood 135 mg/dL (60-115)
[2022-04-03] MEDS: Tamsulosin HCL 0.4 MG CAPSULE PO (18:26)
[2022-04-03 19:24] VITALS: BP 114/68; PULSE 76; RESP 18; TEMP 36.3; O2SAT 95
[2022-04-03] MEDS: Atorvastatin Calcium 20 MG TABLET PO (19:51)
[2022-04-03] MEDS: Montelukast Sodium 10 MG TABLET PO (19:52)
[2022-04-03 20:21] LABS: Glucose, Whole Blood 124 mg/dL (60-115)
[2022-04-04] VITALS: BP 95/57; PULSE 67; RESP 18; TEMP 36.1; O2SAT 98
[2022-04-04 04:00] VITALS: BP 96/60; PULSE 65; RESP 18; TEMP 36.1; O2SAT 97
--- NOTE | 2022-04-04 04:26 | PC.NURSE ---
Alberts cath removed yesterday has been inc of urine.Bladder scanned for 358cc,refuses to be st.cathed
[2022-04-04] MEDS: Amoxicillin/Potassium Clav 875 MG TABLET PO (05:10)
[2022-04-04 06:19] LABS: Imm Gran Abs Auto 0.04 X10*3/uL (0.00-0.03); Imm Gran Pct Auto 0.5 % (0.0-0.4); MANUAL DIFF FLAG SCAN; Mean Corpuscular Volume 84.4 fL (80.0-98.0); PLT CLUMP 1; SCAN SMEAR FLAG 1
[2022-04-04 06:21] LABS: Basophils Percent Auto 0.4 % (0-2); Eosinophils Absolute Auto 0.3 X10*3/uL (0.0-0.4); Eosinophils Percent Auto 3.5 % (0-4); Hematocrit 35.8 % (42.0-52.0); Hemoglobin 11.2 g/dl (14.0-18.0); Lymphocytes Absolute Auto 1.6 X10*3/uL (1.2-4.9); Lymphocytes Percent Auto 19.1 % (20-40); Mean Corpuscular HGB Conc 31.3 g/dl (31.0-36.0); Mean Corpuscular Hemoglobin 26.4 pg (27.0-33.0); Mean Platelet Volume 11.1 fL (9.4-12.4); Monocytes Percent Auto 22.9 % (2-11); Neutrophils Absolute Auto 4.6 x10*3/uL (2.0-8.3); Neutrophils Percent Auto 53.6 % (45-73); Red Blood Count 4.24 X10*6/uL (4.60-5.80); Red Cell Distribution Width 17.2 % (11.0-16.0)
[2022-04-04 06:32] LABS: Platelet Count 74 X10*3/uL (160-400); White Blood Count 8.6 X10*3/uL (4.8-10.8)
[2022-04-04 06:38] LABS: Alanine Aminotransferase 60 U/L (0-40); Alkaline Phosphatase 66 U/L (39-117); Anion Gap 12 (12-20); Aspartate Amino Transferase 68 U/L (5-37); Bilirubin Total 0.9 mg/dL (0.0-1.0); Blood Urea Nitrogen 15 mg/dL (9-16); Calcium 8.7 mg/dL (8.4-10.2); Carbon Dioxide 33 mmol/L (22-29); Chloride 94 mmol/L (96-108); Creatinine Clr Calc Pharmacy 103.6; Estimated Glomerular Filt Rate > 60; Glucose Fasting 94 mg/dL (60-99); Potassium 3.5 mmol/L (3.3-5.1); Sodium 135 mmol/L (135-145)
[2022-04-04 06:50] LABS: SLIDE REVIEW VERIFIED
[2022-04-04 07:34] LABS: Glucose, Whole Blood 81 mg/dL (60-115)
[2022-04-04 08:00] VITALS: BP 106/65; PULSE 67; RESP 16; TEMP 36.2; O2SAT 99
--- NOTE | 2022-04-04 09:05 | MHC.CM.PN ---
PT REMAINS MEDICALLY CLEARED FOR D/C HOME W/RESUMP OF [facility] FOR METHADNE DELIVERY, [facility] AWARE, TRANSPORT SET UP FOR 1PM W/ACTION.
[2022-04-04] MEDS: Furosemide 40 MG TABLET PO (09:30)
[2022-04-04] MEDS: carvediloL 6.25 MG TABLET PO (09:30)
[2022-04-04] MEDS: Famotidine 20 MG TABLET PO (09:30)
[2022-04-04] MEDS: Loratadine 10 MG TABLET PO (09:30)
[2022-04-04] MEDS: Gabapentin 100 MG CAPSULE 200 MG PO (09:31)
[2022-04-04] MEDS: methADONE HCl 20 MG/2 ML ORAL.CONC 50 MG PO (09:31)
[2022-04-04] MEDS: Clopidogrel Bisulfate 75 MG TABLET PO (09:31)
[2022-04-04] MEDS: Zinc Sulfate 220 MG CAPSULE PO (09:31)
[2022-04-04] MEDS: Aspirin Enteric Coated 81 MG TABLET.DR PO (09:31)
[2022-04-04] MEDS: Fluconazole 100 MG TABLET PO (09:31)
[2022-04-04] MEDS: Sacubitril/Valsartan 24/26 1 TAB TABLET PO (09:32)
[2022-04-04] MEDS: Spironolactone 25 MG TABLET 12.5 MG PO (09:32)
--- NOTE | 2022-04-04 11:17 | HO.PM.IMPN ---
Subjective Subjective Date of Service: 04/03/22 Interval History: No acute issues overnight. States scrotum is better Review of Systems Denies chest pain Denies shortness of breath Denies nausea vomiting diarrhea Denies fever chills Physical Exam Vital Signs: Vital Signs: Last Vital Signs Temp Pulse Resp BP Pulse Ox BMI result Body Mass Index 28.5 Reviewed 04/03/2022 Const: Other: Awake alert no acute distress Resp: Other: Clear to auscultation bilaterally no rales rhonchi or wheezes Cardio: Other: No S4; positive S1-S2; no S3 murmurs rubs or gallops : Other: Scrotum less edematous/erythematous Extrem: Other: No edema bilaterally Objective Data Active Medications Acetaminophen (Acetaminophen 325 Mg Tablet) 650 mg PO Q6H PRN PRN Reason: Pain, Mild (Pain Scale 1-3) Albuterol Sulfate (Albuterol Sulfate 90 Mcg 8 Gm Inhaler) 2 puff INHALE Q4H PRN PRN Reason: dyspnea Amoxicillin/Clavulanate Potassium (Amoxicillin/Potassium Clav 875 Mg Tablet) 875 mg PO Q12H [facility] Last Admin: 04/04/22 05:10 Dose: 875 mg Documented by: TRAVSI Aspirin (Aspirin Enteric Coated 81 Mg Tablet.) 81 mg PO DAILY [facility] Last Admin: 04/04/22 09:31 Dose: 81 mg Documented by: MAURY Atorvastatin Calcium (Atorvastatin Calcium 20 Mg Tablet) 20 mg PO BEDTIME [facility] Last Admin: 04/03/22 19:51 Dose: 20 mg Documented by: TRAVIS Carvedilol (Carvedilol 6.25 Mg Tablet) 6.25 mg PO BID [facility]; Protocol Last Admin: 04/04/22 09:30 Dose: 6.25 mg Documented by: MAURY Clopidogrel Bisulfate (Clopidogrel Bisulfate 75 Mg Tablet) 75 mg PO DAILY [facility] Last Admin: 04/04/22 09:31 Dose: 75 mg Documented by: MAURY Dextrose (Dextrose 50 % 25 Gm/50 Ml Syringe) 25 gm IVPUSH Q15M PRN; Protocol PRN Reason: per Hypoglycemia Standing Ord. Doxycycline Hyclate (Doxycycline Hyclate 100 Mg Tablet) 100 mg PO BID [facility] Last Admin: 04/04/22 09:31 Dose: 100 mg Documented by: MAURY Enoxaparin Sodium (Enoxaparin Sodium 40 Mg/0.4 Ml Syringe) 40 mg SUBCUT Q24H [facility] Last Admin: 04/04/22 09:32 Dose: Not Given Documented by: MAURY Non-Admin Reason: Patient Refused Famotidine (Famotidine 20 Mg Tablet) 20 mg PO BID [facility] Last Admin: 04/04/22 09:30 Dose: 20 mg Documented by: MAURY Fluconazole (Fluconazole 100 Mg Tablet) 100 mg PO DAILY [facility] Last Admin: 04/04/22 09:31 Dose: 100 mg Documented by: MAURY Furosemide (Furosemide 40 Mg Tablet) 40 mg PO DAILY [facility]; Protocol Last Admin: 04/04/22 09:30 Dose: 40 mg Documented by: MAURY Gabapentin (Gabapentin 100 Mg Capsule) 200 mg PO TID [facility] Last Admin: 04/04/22 09:31 Dose: 200 mg Documented by: MAURY Glucose (Glucose Gel 15 Gm Gel..Gram.) 15 gm PO Q15M PRN; Protocol PRN Reason: per Hypoglycemia Standing Ord. Insulin Glargine (Insulin Glargine,Hum.Rec.Anlog 100 Unit/Ml 10 Ml Vial) 8 unit SUBCUT BEDTIME [facility] Last Admin: 04/03/22 20:28 Dose: Not Given Documented by: TRAVIS Non-Admin Reason: Patient Refused Insulin Human Lispro (Insulin Lispro 100 Unit/Ml 3 Ml Vial) 0 unit SUBCUT QIDACHS [facility]; Protocol Last Admin: 04/04/22 07:27 Dose: Not Given Documented by: MAURY Non-Admin Reason: No Insulin Coverage Insulin Human Lispro (Insulin Lispro 100 Unit/Ml 3 Ml Vial) 5 unit SUBCUT TIDAC [facility] Last Admin: 04/04/22 07:27 Dose: Not Given Documented by: MAURY Non-Admin Reason: nursing judgment Lidocaine (Lidocaine 4 % Patch Adh..Patch) 1 patch TRANSDERMA DAILY [facility] Last Admin: 04/04/22 09:31 Dose: Not Given Documented by: MAURY Non-Admin Reason: Patient Refused Loratadine (Loratadine 10 Mg Tablet) 10 mg PO DAILY [facility] Last Admin: 04/04/22 09:30 Dose: 10 mg Documented by: MAURY Melatonin (Melatonin 3 Mg Tablet) 6 mg PO BEDTIME PRN PRN Reason: Insomnia Methadone HCl (Methadone Hcl 20 Mg/2 Ml Oral.Conc) 50 mg PO DAILY [facility] Last Admin: 04/04/22 09:31 Dose: 50 mg Documented by: MAURY Montelukast Sodium (Montelukast Sodium 10 Mg Tablet) 10 mg PO BEDTIME [facility] Last Admin: 04/03/22 19:52 Dose: 10 mg Documented by: TRAVIS Ondansetron HCl (Ondansetron Hcl 4 Mg/2 Ml Vial) 4 mg IVPUSH Q8H PRN PRN Reason: Nausea and Vomiting Last Admin: 03/30/22 19:02 Dose: 4 mg Documented by: ML Pharmacy Consult (Consult Rx Perform Med Rec) 1 each MISCELLANE ONCE PRN PRN Reason: Consult order Sacubitril/Valsartan (Sacubitril/Valsartan 1 Tab Tablet) 1 tab PO BID [facility]; Protocol Last Admin: 04/04/22 09:32 Dose: 1 tab Documented by: MAURY Senna (Sennosides 8.6 Mg Tablet) 17.2 mg PO BEDTIME PRN PRN Reason: Constipation Sodium Chloride (0.9 % Sodium Chloride Flush 3 Ml Syringe) 3 ml IVFLUSH QSHIFT [facility] Last Admin: 04/04/22 07:28 Dose: Not Given Documented by: MAURY Non-Admin Reason: No Access Spironolactone (Spironolactone 25 Mg Tablet) 12.5 mg PO DAILY [facility]; Protocol Last Admin: 04/04/22 09:32 Dose: 12.5 mg Documented by: MAURY Tamsulosin HCl (Tamsulosin Hcl 0.4 Mg Capsule) 0.4 mg PO DAILY@1800 [facility] Last Admin: 04/03/22 18:26 Dose: 0.4 mg Documented by: MAURY Zinc Sulfate (Zinc Sulfate 220 Mg Capsule) 220 mg PO DAILY [facility] Last Admin: 04/04/22 09:31 Dose: 220 mg Documented by: MAURY Labs CBC & Chem 7: 04/04/22 06:04 04/04/22 06:04 Labs: Laboratory Results - last 24 hr 04/03/22 04/03/22 04/03/22 11:27 16:26 19:29 MCV MCH MCHC RDW Plt Count MPV Immature Gran % (Auto) Neut % (Auto) Lymph % (Auto) [place] % (Auto) Eos % (Auto) Baso % (Auto) Lymph # (Auto) [place] # (Auto) Eos # (Auto) Baso # (Auto) Abs Immat Gran (auto) Absolute Neuts (auto) Absolute Nucleated RBC Nucleated RBC % (auto) Smear Tech's Comments Anion Gap Estim Creat Clear Calc Estimated GFR POC Glucose 145 H 135 H 124 H Fasting Glucose Calcium Total Bilirubin AST ALT Alkaline Phosphatase Total Protein Albumin 04/04/22 04/04/22 04/04/22 06:04 06:04 07:25 MCV 84.4 MCH 26.4 L MCHC 31.3 RDW 17.2 H Plt Count 74 L MPV 11.1 Immature Gran % (Auto) 0.5 H Neut % (Auto) 53.6 Lymph % (Auto) 19.1 L [place] % (Auto) 22.9 H Eos % (Auto) 3.5 Baso % (Auto) 0.4 Lymph # (Auto) 1.6 [place] # (Auto) 2.0 H Eos # (Auto) 0.3 Baso # (Auto) 0.0 Abs Immat Gran (auto) 0.04 H Absolute Neuts (auto) 4.6 Absolute Nucleated RBC 0.000 Nucleated RBC % (auto) 0.0 Smear Tech's Comments VERIFIED Anion Gap 12 Estim Creat Clear Calc 103.6 Estimated GFR > 60 POC Glucose 81 Fasting Glucose 94 Calcium 8.7 Total Bilirubin 0.9 AST 68 H ALT 60 H Alkaline Phosphatase 66 Total Protein 6.0 L Albumin 3.0 L Microbiology Microbiology Results: Microbiology 03/29/22 22:44 Blood Culture - Final Blood - Subclavian No growth after 5 days. 03/29/22 22:13 Blood Culture - Final Blood - Subclavian No growth after 5 days. Assessment and Plan (1) Cellulitis: Status: Acute (2) Diabetes mellitus, type 2: Status: Acute Plan 51-year-old male with a past medical history of hypertension, hyperlipidemia, diabetes, CHF, BPH, compression fracture of T9, peripheral vascular disease, asthma, bipolar, history of osteomyelitis, opiate dependence presented to the hospital today with a chief complaint of pain and swelling of the scrotum as well as the penis. 1.Scrotal cellulitis/Balanitis: -continue Zosyn/doxycycline(PO)... Switch to augmentin when D/C -Diflucan for antifungal coverage 2. Diabetes type 2 -acceptable control on current therapies -continue list pro correctional scale as well as outpatient therapies -ADA diet 3. CHF (by history) -continue Coreg/Entresto/Aldactone -asymptomatic; adjust as indicated 4. Opiate use disorder -continue methadone as ordered. -verified by care team Lovenox Full code Requires ongoing hospitalization for treatment of scrotal cellulitis with IV antibiotics Quality Stroke Does the patient have a stroke diagnosis?: No VTE Prior VTE?: No VTE Risk Level:: Medical - moderate - high VTE Device Contraindication: Treatment Not Indicated VTE Drug Contraindication: N/A - Med Ordered
[2022-04-04 11:32] VITALS: BP 106/64; PULSE 66; RESP 18; TEMP 36.4; O2SAT 98
[2022-04-04 11:55] LABS: Glucose, Whole Blood 159 mg/dL (60-115)
[2022-04-04] MEDS: Insulin Lispro 100 UNIT/ML 3 ML VIAL SUBCUT (12:32)
== END 2022-04-04 13:33 | disposition home health service (06) | DRG 501 ==
LOC: HO.ED 03-30 00:41 → HO.EDOVER 03-30 04:43 → HO.S3 03-30 14:32
PROVIDERS: Hospitalist; Physician Assistant; Student in an Organized Health Care Education/Training Program; Admitting Provider Hospitalist; Emergency Provider Emergency Medicine; PCP Family Medicine; Visit Provider Hospitalist
DX: N48.1 Balanitis (principal); E11.42 Type 2 diabetes mellitus with diabetic polyneuropathy; E11.51 Type 2 diabetes mellitus with diabetic peripheral angiopathy without gangrene; E78.5 Hyperlipidemia, unspecified; B36.9 Superficial mycosis, unspecified; I50.22 Chronic systolic (congestive) heart failure; F31.9 Bipolar disorder, unspecified; N40.0 Benign prostatic hyperplasia without lower urinary tract symptoms; F11.20 Opioid dependence, uncomplicated; Z20.822 Contact with and (suspected) exposure to COVID-19; N48.22 Cellulitis of corpus cavernosum and penis; Z89.511 Acquired absence of right leg below knee; I11.0 Hypertensive heart disease with heart failure; Z88.1 Allergy status to other antibiotic agents; Z88.2 Allergy status to sulfonamides; Z88.8 Allergy status to other drugs, medicaments and biological substances; Z79.4 Long term (current) use of insulin; Z79.02 Long term (current) use of antithrombotics/antiplatelets; Z79.82 Long term (current) use of aspirin; Z79.899 Other long term (current) drug therapy
CPT/HCPCS: 36415; 74176; 80048; 80053; 81001; 82077; 82550; 82947; 83605; 83735; 85025; 85027; 86140; 87040; 87491; 87502; 87591; 87635; 96365; 96375; 99285; 99291; 99292; C1758; J1200; J1450; J1650; J2405; J2543

== ENCOUNTER 2022-04-17 17:37 | Inpatient (IN) | payer MEDICAID, SELFPAY ==
--- NOTE | ~2022-04-17 | CT_ITS ---
EXAMINATION: CT ABDOMEN AND PELVIS WITHOUT CONTRAST CLINICAL INFORMATION: Diffuse abdominal pain COMPARISON: CT abdomen and pelvis 03/29/2022 TECHNIQUE: Multidetector volumetric imaging was performed from the superior aspect of the liver through the pubic symphysis. Sagittal and coronal reformatted images were obtained on the technologist's workstation. This CT examination was performed using dose optimization techniques as appropriate, variously including the following: *Automated exposure control *Adjustment of mA and/or kV according to patient size (this includes techniques or standardized protocols for targeted exams where dose is matched to indication/reason for exam; i.e. extremities or head) *Use of iterative reconstruction technique DLP: 680 mGy-cm FINDINGS: LUNG BASES: Small right basilar pleural effusion, similar to prior. Mild bibasilar atelectasis. Prominent heart size. Right coronary artery vascular calcifications. LIVER, GALLBLADDER, AND BILIARY TREE: Normal hepatic attenuation. Slightly nodular liver surface contour and hypertrophy of the caudate suggesting underlying fibrosis/cirrhosis. No biliary ductal dilation or appreciable liver lesion. Small low-density stones in the body and fundus. No gross gallbladder wall thickening or pericholecystic inflammatory change. PANCREAS: Moderate parenchymal atrophy and fatty infiltration. No pancreatic lesion or appreciable peripancreatic inflammatory change. SPLEEN: Unremarkable. ADRENAL GLANDS: Unremarkable. KIDNEYS AND URETERS: Symmetric size. No renal lesion or hydronephrosis. Symmetric mild bilateral perirenal fascial edema/stranding. BLADDER: Unremarkable. GASTROINTESTINAL TRACT: Equivocal small hiatal hernia. Mild to moderate fluid distention of the stomach. No dilated loops of small bowel or colon. No bowel wall thickening. Appendix is unremarkable. Trace ascites. No intra-abdominal free air. ABDOMINAL WALL: Small fat-containing right inguinal hernia. Generalized body wall edema/anasarca. Mild presacral edema. LYMPH NODES: Mildly enlarged portacaval lymph node measuring 1 cm in short axis, perhaps slightly smaller than on prior nonspecific. No other lymphadenopathy. VASCULAR: Extensive vascular calcifications. Normal caliber abdominal aorta. PELVIC VISCERA: Unremarkable. OSSEOUS STRUCTURES: No acute fracture or suspicious osseous lesion. CT/CT abdomen pelvis wo con IMPRESSION: 1. No acute intra-abdominal process identified. 2. Cholelithiasis. No gross pericholecystic inflammatory change or evidence of biliary ductal dilation. 3. Findings suggesting underlying hepatic fibrosis/cirrhosis, unchanged. 4. Small volume ascites and body wall edema/anasarca. 5. Persistent small right basilar pleural effusion.
--- NOTE | ~2022-04-17 | XR_ITS ---
EXAMINATION: XR CHEST CLINICAL INFORMATION: Pneumonia COMPARISON: 03/08/2022 TECHNIQUE: Frontal view of the chest was obtained. FINDINGS: Compared to the prior study, some improvement in appearances. Lungs are better expanded. The heart remains enlarged. Pulmonary vascular congestion scattered interstitial opacities have improved. No focal consolidations, lung masses or effusions are present. XR/XR chest 1V IMPRESSION: Cardiomegaly. No acute intrathoracic disease.
--- NOTE | ~2022-04-17 | US_ITS ---
EXAMINATION: US ABDOMEN LIMITED CLINICAL INFORMATION: Elevated liver function tests. Lactic acidosis. COMPARISON: CT scan of the abdomen and pelvis 04/17/2022. TECHNIQUE: Real-time imaging of the right upper quadrant abdominal viscera. FINDINGS: PANCREAS: Largely obscured by gas. The visualized portions of the pancreas are unremarkable. LIVER: The hepatic contour is nodular. Parenchymal echogenicity is otherwise unremarkable. Grossly no focal hepatic lesion. There is no intrahepatic biliary duct dilatation seen. GALLBLADDER: There are numerous echogenic calculi and sludge filling the gallbladder lumen. Gallbladder wall thickness is otherwise normal and there are no overt pericholecystic inflammatory changes. A small volume of free intraperitoneal fluid is visualized within the abdominal cavity, the source of which is uncertain. No gallbladder tenderness on palpation. COMMON BILE DUCT: Normal in caliber measuring 0.4 cm in diameter. RIGHT KIDNEY: Normal. No hydronephrosis. No renal calculi or focal parenchymal lesions. The kidney measures 10.9 cm in maximum dimension. FREE FLUID: Small volume. US/US abdomen limited IMPRESSION: There is a small volume of intraperitoneal fluid, the source of which is uncertain on the basis of this examination. Numerous calculi and sludge fill the gallbladder lumen. Otherwise no abnormal gallbladder wall thickening or pericholecystic inflammatory changes. The liver contour is nodular.
--- NOTE | ~2022-04-17 | CT_ITS ---
EXAMINATION: CT HEAD WITHOUT CONTRAST CLINICAL INFORMATION: Altered mental status. COMPARISON: CT head 02/12/2021. TECHNIQUE: Contiguous axial imaging was performed from the skull base to vertex without intravenous administration of contrast. This CT examination was performed using dose optimization techniques as appropriate, variously including the following: *Automated exposure control *Adjustment of mA and/or kV according to patient size (this includes techniques or standardized protocols for targeted exams where dose is matched to indication/reason for exam; i.e. extremities or head) *Use of iterative reconstruction technique DLP: 742 mGy-cm FINDINGS: Mild diffuse commensurate prominence of ventricles and sulci is noted. No intrarenal hemorrhage, tumors or definitive acute infarcts are visualized. No focal parenchymal lesions of the brain are identified. Bilateral ocular lens extractions are visualized. Extensive extracranial vascular calcifications are present. Segmental vascular calcifications are present in the cavernous portions of the internal carotid arteries and within the carotid canals. No significant opacification of the visualized paranasal sinuses, mastoid air cells and middle ear cavities. CT/CT head/brain wo con IMPRESSION: *No acute intracranial abnormalities. *Possible mild diffuse parenchymal volume loss the brain. *Extensive diffuse extracranial vascular calcifications which may represent the sequela of diabetes mellitus or chronic renal dysfunction.
[2022-04-17 17:50] VITALS: BP 144/92; BP 146/82; PULSE 109; PULSE 112; RESP 17; TEMP 35.8; O2SAT 100; BMI 27.8
--- NOTE | 2022-04-17 18:23 | ED_ITS ---
HPI - General Adult General Chief complaint: General Medical Stated complaint: AMS/Weakness Time Seen by Provider: 04/17/22 18:23 Source: EMS Mode of arrival: EMS Limitations: altered mental status History of Present Illness HPI narrative: 51-year-old male history of acute respiratory failure, bipolar, CHF, diabetes, hyperlipidemia, ischemic cardiomyopathy, osteomyelitis, PVD presenting to the emergency department with concerns for altered mental status per EMS.. According to EMS they tell me that patient's landlord was not able to communicate with patient for over 24 hours, they were concerned, when landlord was finally able to get in contact with patient today he told EMS that patient was ?unresponsive ?. Upon history caking patient does tell me he does not feel well, when I asked him why he does not elaborate, refusing to answer questions. He tells me I just do not feel good that is it . When I asked patient what hurts he tells me I do not know. He is speaking with fluid speech, appears to be in no acute distress. Related Data Home Medications Medication Instructions Recorded Confirmed albuterol sulfate 90 mcg/actuation 2 puff INHALATION Q4-6H PRN 03/08/22 03/30/22 aerosol inhaler (ProAir HFA) aspirin 81 mg tablet,delayed 1 tab PO QAM 03/08/22 03/30/22 release atorvastatin 20 mg tablet 1 tab PO BEDTIME 03/08/22 03/30/22 carvedilol 6.25 mg tablet 1 tab PO BID 03/08/22 03/30/22 cetirizine 10 mg tablet 1 tab PO QAM 03/08/22 03/30/22 clopidogrel 75 mg tablet 1 tab PO QAM 03/08/22 03/30/22 famotidine 20 mg tablet 1 tab PO BID 03/08/22 03/30/22 fluticasone 500 mcg-salmeterol 50 1 puff PO BID 03/08/22 03/30/22 mcg/dose blistr powdr for inhalation (Advair Diskus) fluticasone propionate 50 1 - 2 spray INTRANASAL DAILY PRN 03/08/22 03/30/22 mcg/actuation nasal spray,suspension furosemide 40 mg tablet 1 tab PO DAILY 03/08/22 03/30/22 gabapentin 100 mg capsule 2 cap PO TID 03/08/22 03/30/22 insulin aspart U-100 100 unit/mL 5 unit SUBCUT TID 03/08/22 03/30/22 (3 mL) subcutaneous pen (Novolog Flexpen U-100 Insulin aspart) insulin glargine 100 unit/mL (3 12 unit SUBCUT BEDTIME 03/08/22 03/30/22 mL) subcutaneous pen (Lantus Solostar U-100 Insulin) lidocaine 5 % topical patch 1 patch TOPICAL DAILY 03/08/22 03/30/22 (Lidoderm) methadone 10 mg/mL oral concentrate 52 mg PO DAILY 03/08/22 03/30/22 montelukast 10 mg tablet 1 tab PO QPM 03/08/22 03/30/22 spironolactone 25 mg tablet 0.5 tab PO QAM 03/08/22 03/30/22 tamsulosin 0.4 mg capsule 1 cap PO QPM 03/08/22 03/30/22 zinc sulfate 50 mg zinc (220 mg) 1 cap PO DAILY 03/08/22 03/30/22 capsule bumetanide 2 mg tablet 2 mg PO BID 03/30/22 03/30/22 sacubitril 24 mg-valsartan 26 mg 1 tab PO BID 03/30/22 03/30/22 tablet (Entresto) Previous Rx's Medication Instructions Recorded amoxicillin 875 mg-potassium 875 mg PO Q12H #14 tab 04/03/22 clavulanate 125 mg tablet doxycycline hyclate 100 mg tablet 100 mg PO BID #14 tab 04/03/22 fluconazole 100 mg tablet 100 mg PO DAILY #7 tab 04/03/22 Allergies Allergy/AdvReac Type Severity Reaction Status Date / Time ertapenem Allergy Intermediate Hives Verified 02/21/22 18:40 vancomycin [VANCOMYCIN] Allergy Intermediate HIVES Verified 02/21/22 18:40 Chocolate Allergy Unknown Rash Verified 02/21/22 18:40 ciprofloxacin [From CIPRO] Allergy Unknown SWELLING Verified 02/21/22 18:40 hydrocortisone [Cipro HC] Allergy Unknown Unknown Verified 02/21/22 18:40 sulfamethoxazole Allergy Unknown rash Verified 02/21/22 18:40 [From BACTRIM] trimethoprim [From BACTRIM] Allergy Unknown rash Verified 02/21/22 18:40 turkey [TURKEY] Allergy Unknown RASH Verified 02/21/22 18:40 Review of Systems Review of Systems: Patient refusing to answer questions. Yes Unobtainable due to mental status [facility] Past Medical History Attestation statement: The following information was validated with the patient. Source: old records reviewed and nursing notes reviewed Medical History Abscess or cellulitis of foot Acute on chronic anemia Acute on chronic combined systolic and diastolic congestive heart failure Acute on chronic HFrEF (heart failure with reduced ejection fraction) Acute respiratory failure with hypoxia Asthma Bipolar 1 disorder BPH (benign prostatic hyperplasia) CHF (congestive heart failure) CHF exacerbation Cholelithiasis Closed wedge compression fracture of T9 vertebra COPD (chronic obstructive pulmonary disease) Diabetes mellitus Diabetes mellitus, type 2 Elevated troponin GERD (gastroesophageal reflux disease) Hyperlipidemia Ischemic cardiomyopathy Lymphadenopathy Opiate abuse, continuous Osteomyelitis Peripheral arterial disease Peripheral neuropathy Peripheral vascular disease Substance abuse Tracheomalacia, acquired Surgical History History of amputation History of laminectomy History of transurethral resection of prostate Hx of BKA Family History Family History Father Chronic mental illness Hypertension Asthma Stroke Mother Asthma Diabetes Coronary artery disease Social History Social History Household Members: Other Housing: Senior Living Housing Other:: IN A LITTLE ROOM Do you presently have visiting nurse or other home services: No Alcohol intake: unknown Patient Tobacco Use Status: Never used Tobacco e-Cigarette/Vaping Use: Never Used Second Hand Smoke Exposure: No Use of substances other than those prescribed or required for medical reasons: Unknown Substance Use Type: Opiates Advance Directives: Yes Advance Directives on File: Yes Advance Directives Date on File: 11/24/20 service: No Current occupational status: disabled Physical Exam ED Vital Signs: Vital Signs - 24 hr 04/17/22 17:50 04/17/22 21:27 Temperature 96.4 F L 98.8 F Pulse Rate 112 H 105 H Respiratory Rate 17 16 Blood Pressure 144/92 H Pulse Oximetry 100 99 BMI result Body Mass Index 27.8 Vital signs stable however, patient is slightly tachycardic Appearance: Alert.? No acute distress.? Head: Normocephalic, atraumatic, no step-offs or deformities Eyes: Pupils equal, round and reactive to light.? ENT: Pharynx normal.? Neck: Normal inspection.? Neck supple.? CVS: Normal heart rate and rhythm.? Pulses normal.? Respiratory: No respiratory distress.? Breath sounds normal.? Abdomen: Soft and + diffusely tender.? Skin: Skin warm and dry.? Normal skin color.? Normal skin turgor.? Extremities: No lower extremity edema.? No calf ttp. 5/5 strength to bilateral upper and lower extremities Back: No midline tenderness, no C-spine tenderness, full range of motion, no CVA tenderness bilaterally Neuro: Patient refusing to answer questions, not cooperating with neuro exam. However when I asked him to put both his hands up, there is no pronator drift. Patient with fluid speech when he does speak. Course Reevaluation(s) Reevaluation #1: Delay in obtaining patient's lab secondary to patient being a very tough stick. Time: 21:41 Reevaluation #2: Labs obtained, increased red blood cells, increased hematocrit patient's platelets 421. Chemistry with an elevated anion gap, low carbon dioxide, increased BUN, VBG ordered at this time. Total bilirubin is elevated 2.3, diffusely tender abdomen will order CT at this time. Ammonia 28 on likely hepatic encephalopathy. Troponin 21.2nd troponin ordered for 1125. CT of the head with no acute findings. Urine pending. Lactic acid pending. CT of the abdomen pending. VBG pending. Repeat troponin pending. Sign out given to disposition pending labs and imaging. Time: 21:43 Medical Decision Making [facility] Narrative Medical decision making narrative: 192 51-year-old male who is uncooperative with history and physical exam presents to the emergency department for bizarre behavior at home according to fantasma Uriostegui. He tells me he is not feeling well however he cannot elaborate on what does not feel well. Physical examination benign however patient is not cooperating with entire meagan rological exam, negative pronator drift however. Patient speaking fluidly. No facial asymmetry. Lungs clear. Regular rate and rhythm. Abdomen soft diffusely tender nondistended. Very low suspicion for ICH, or stroke. Unlikely ACS however will rule out. Patient not hypoxic, or tachypneic unlikely PE Plan at this time is basic labs, head CT, urine. Will rule out infection however unlikely. Medical Records Medical records reviewed: Yes I reviewed the patient's medical records. Lab Data Lab results reviewed: Yes I reviewed the patient's lab results. Result diagrams: 04/17/22 20:25 04/17/22 20:25 Labs: Lab Results 04/17/22 04/17/22 04/17/22 Range/Units 20:25 20:25 20:25 WBC 9.6 (4.8-10.8) X10*3/uL RBC 6.34 H D (4.60-5.80) X10*6/uL Hgb 17.1 D (14.0-18.0) g/dl Hct 54.5 H D (42.0-52.0) % MCV 86.0 (80.0-98.0) fL MCH 27.0 (27.0-33.0) pg MCHC 31.4 (31.0-36.0) g/dl RDW 21.9 H (11.0-16.0) % Plt Count 421 H D (160-400) X10*3/uL MPV 9.8 (9.4-12.4) fL Immature Gran % (Auto) 0.5 H (0.0-0.4) % Neut % (Auto) 85.3 H (45-73) % Lymph % (Auto) 9.0 L (20-40) % [place] % (Auto) 5.1 (2-11) % Eos % (Auto) 0.0 (0-4) % Baso % (Auto) 0.1 (0-2) % Lymph # (Auto) 0.9 L (1.2-4.9) X10*3/uL [place] # (Auto) 0.5 (0.1-1.2) X10*3/uL Eos # (Auto) 0.0 (0.0-0.4) X10*3/uL Baso # (Auto) 0.0 (0.0-0.2) X10*3/uL Abs Immat Gran (auto) 0.05 H (0.00-0.03) X10*3/uL Absolute Neuts (auto) 8.1 (2.0-8.3) x10*3/uL Absolute Nucleated RBC 0.030 H (0.0-0.012) X10*3/uL Nucleated RBC % (auto) 0.3 H (0.0-0.2) /100WBC Sodium 136 (135-145) mmol/L Potassium 4.8 D (3.3-5.1) mmol/L Chloride 98 (96-108) mmol/L Carbon Dioxide 13 L (22-29) mmol/L Anion Gap 30 H (12-20) BUN 18 H (9-16) mg/dL Creatinine 1.20 (0.5-1.4) mg/dL Estim Creat Clear Calc 67.7 Estimated GFR > 60 Random Glucose 190 H D (60-115) mg/dL Calcium 9.4 D (8.4-10.2) mg/dL Magnesium 1.8 (1.6-2.6) mg/dL Total Bilirubin 2.3 H (0.0-1.0) mg/dL AST 62 H (5-37) U/L ALT 36 (0-40) U/L Alkaline Phosphatase 141 H D (39-117) U/L Ammonia (13-55) umol/L Troponin I High Sens 21.3 D (<3.5-35.0) ng/L Total Protein 7.4 D (6.5-8.0) g/dL Albumin 3.2 L (3.5-5.0) g/dL Ethyl Alcohol mg/dL COVID-19 (JAMILA) (Negative) COVID-19 Clin Com 04/17/22 04/17/22 04/17/22 Range/Units 20:25 20:25 20:59 WBC (4.8-10.8) X10*3/uL RBC (4.60-5.80) X10*6/uL Hgb (14.0-18.0) g/dl Hct (42.0-52.0) % MCV (80.0-98.0) fL MCH (27.0-33.0) pg MCHC (31.0-36.0) g/dl RDW (11.0-16.0) % Plt Count (160-400) X10*3/uL MPV (9.4-12.4) fL Immature Gran % (Auto) (0.0-0.4) % Neut % (Auto) (45-73) % Lymph % (Auto) (20-40) % [place] % (Auto) (2-11) % Eos % (Auto) (0-4) % Baso % (Auto) (0-2) % Lymph # (Auto) (1.2-4.9) X10*3/uL [place] # (Auto) (0.1-1.2) X10*3/uL Eos # (Auto) (0.0-0.4) X10*3/uL Baso # (Auto) (0.0-0.2) X10*3/uL Abs Immat Gran (auto) (0.00-0.03) X10*3/uL Absolute Neuts (auto) (2.0-8.3) x10*3/uL Absolute Nucleated RBC (0.0-0.012) X10*3/uL Nucleated RBC % (auto) (0.0-0.2) /100WBC Sodium (135-145) mmol/L Potassium (3.3-5.1) mmol/L Chloride (96-108) mmol/L Carbon Dioxide (22-29) mmol/L Anion Gap (12-20) BUN (9-16) mg/dL Creatinine (0.5-1.4) mg/dL Estim Creat Clear Calc Estimated GFR Random Glucose (60-115) mg/dL Calcium (8.4-10.2) mg/dL Magnesium (1.6-2.6) mg/dL Total Bilirubin (0.0-1.0) mg/dL AST (5-37) U/L ALT (0-40) U/L Alkaline Phosphatase (39-117) U/L Ammonia 28 (13-55) umol/L Troponin I High Sens (<3.5-35.0) ng/L Total Protein (6.5-8.0) g/dL Albumin (3.5-5.0) g/dL Ethyl Alcohol < 10 mg/dL COVID-19 (JAMILA) Negative (Negative) COVID-19 Clin Com See Note Critical Care Time Critical Care Time Critical Care Time: No Discharge Plan Discharge Clinical Impression: Malaise Patient Disposition: Still a Patient Prescriptions: No Action bumetanide 2 mg Tablet 2 mg PO BID 0RF Entresto 24-26 mg tablet 1 tab PO BID 0RF fluconazole 100 mg Tablet 100 mg PO DAILY Qty: 7 0RF doxycycline hyclate 100 mg Tablet 100 mg PO BID Qty: 14 0RF amoxicillin-pot clavulanate 875-125 mg Tablet 875 mg PO Q12H Qty: 14 0RF furosemide 40 mg tablet 1 tab PO DAILY 0RF carvedilol 6.25 mg tablet 1 tab PO BID 0RF atorvastatin 20 mg tablet 1 tab PO BEDTIME 0RF cetirizine 10 mg tablet 1 tab PO QAM 0RF clopidogrel 75 mg tablet 1 tab PO QAM 0RF aspirin 81 mg tablet,delayed release (DR/EC) 1 tab PO QAM 0RF spironolactone 25 mg tablet 0.5 tab PO QAM 0RF famotidine 20 mg tablet 1 tab PO BID 0RF tamsulosin 0.4 mg capsule 1 cap PO QPM 0RF lidocaine [Lidoderm] 5 % adhesive patch,medicated 1 patch topical DAILY 0RF fluticasone propion-salmeterol [Advair Diskus] 500-50 mcg/dose blister with device 1 puff PO BID 0RF montelukast 10 mg tablet 1 tab PO QPM 0RF gabapentin 100 mg capsule 2 cap PO TID 0RF albuterol sulfate [ProAir HFA] 90 mcg/actuation HFA aerosol inhaler 2 puff inhalation Q4-6H PRN (Reason: dyspnea) 0RF fluticasone propionate 50 mcg/actuation spray,suspension 1 - 2 spray intranasal DAILY PRN (Reason: Allergy Symptoms) 0RF zinc sulfate 50 mg zinc (220 mg) capsule 1 cap PO DAILY 0RF Lantus Solostar U-100 Insulin 100 unit/mL (3 mL) insulin pen 12 unit subcut BEDTIME 0RF insulin aspart U-100 [Novolog Flexpen U-100 Insulin] 100 unit/mL (3 mL) Insulin Pen 5 unit SUBCUT TID 0RF methadone 10 mg/mL Concentrate 52 mg PO DAILY 0RF
--- NOTE | 2022-04-17 18:24 | ECG_ITS ---
Test Reason : GENERAL MEDICAL Blood Pressure : / mmHG Vent. Rate : 110 BPM Atrial Rate : 110 BPM P-R Int : 186 ms QRS Dur : 122 ms QT Int : 358 ms P-R-T Axes : -12 -48 110 degrees QTc Int : 484 ms Sinus tachycardia with Premature atrial complexes with Aberrant conduction Non-specific intra-ventricular conduction block Abnormal ECG When compared with ECG of 08-MAR-2022 12:49, No significant changes seen Referred By: Josephine Petit Electronically Signed By:LACEY HALEY
[2022-04-17 20:34] LABS: MANUAL DIFF FLAG NO
[2022-04-17 20:44] LABS: Basophils Percent Auto 0.1 % (0-2); Hematocrit 54.5 % (42.0-52.0); Hemoglobin 17.1 g/dl (14.0-18.0); Imm Gran Abs Auto 0.05 X10*3/uL (0.00-0.03); Imm Gran Pct Auto 0.5 % (0.0-0.4); Lymphocytes Absolute Auto 0.9 X10*3/uL (1.2-4.9); Mean Corpuscular HGB Conc 31.4 g/dl (31.0-36.0); Mean Platelet Volume 9.8 fL (9.4-12.4); Monocytes Absolute Auto 0.5 X10*3/uL (0.1-1.2); Monocytes Percent Auto 5.1 % (2-11); NRBC Pct Auto 0.3 /100WBC (0.0-0.2); Neutrophils Absolute Auto 8.1 x10*3/uL (2.0-8.3); Neutrophils Percent Auto 85.3 % (45-73); Platelet Count 421 X10*3/uL (160-400); Red Blood Count 6.34 X10*6/uL (4.60-5.80); Red Cell Distribution Width 21.9 % (11.0-16.0); White Blood Count 9.6 X10*3/uL (4.8-10.8)
[2022-04-17 21:06] LABS: COVID-19 Test Negative (Negative); IDNOW Serial# 55D5AD1C
[2022-04-17 21:08] LABS: Alanine Aminotransferase 36 U/L (0-40); Albumin Level 3.2 g/dL (3.5-5.0); Alkaline Phosphatase 141 U/L (39-117); Anion Gap 30 (12-20); Aspartate Amino Transferase 62 U/L (5-37); Bilirubin Total 2.3 mg/dL (0.0-1.0); Blood Urea Nitrogen 18 mg/dL (9-16); Calcium 9.4 mg/dL (8.4-10.2); Carbon Dioxide 13 mmol/L (22-29); Chloride 98 mmol/L (96-108); Creatinine Clr Calc Pharmacy 67.7; Estimated Glomerular Filt Rate > 60; Glucose Random 190 mg/dL (60-115); Magnesium 1.8 mg/dL (1.6-2.6); Potassium 4.8 mmol/L (3.3-5.1); Sodium 136 mmol/L (135-145); Total Protein 7.4 g/dL (6.5-8.0)
[2022-04-17 21:13] LABS: Ethanol < 10 mg/dL
[2022-04-17 21:14] LABS: Troponin-I High Sensitivity 21.3 ng/L (<3.5-35.0)
[2022-04-17] MEDS: 0.9 % Sodium Chloride 1,000 ML 999 ML IV (21:14)
[2022-04-17 21:22] LABS: Ammonia 28 umol/L (13-55)
[2022-04-17 21:27] VITALS: PULSE 105; RESP 16; TEMP 37.1; O2SAT 99
[2022-04-17] MEDS: 0.9 % Sodium Chloride 500 ML IV (21:39)
[2022-04-17 22:02] LABS: VBG Base Excess -8.6 mmol/L; VBG HCO3 13 mmol/L (22-26); VBG pCO2 21 mmHg; VBG pO2 176 mmHg
[2022-04-17 22:05] LABS: Venous Blood Gas Refer to POC result
[2022-04-17 22:23] LABS: Troponin-I High Sensitivity 19.9 ng/L (<3.5-35.0)
[2022-04-17 23:02] LABS: Reflex Lactate? Lactic Acid Added
[2022-04-17 23:16] VITALS: PULSE 111; RESP 16; O2SAT 100
[2022-04-17 23:34] VITALS: BP 124/80
[2022-04-17 23:44] LABS: ~Lactic Acid-LAB USE ONLY 8.2 mmol/L (0.5-2.0)
[2022-04-18] VITALS (7 sets, daily range): BP systolic 93–133; BP diastolic 46–87; PULSE 72–109; RESP 16–20; TEMP 36–36.8; O2SAT 97–100
--- NOTE | 2022-04-18 00:08 | PC.NURSE ---
critical lab reported to MARJAN Mckeon and provider Dr Bermudez. Lactic acid of 8.2
[2022-04-18] MEDS: Piperacillin Sodium/Tazobactam 3.375 GM in 0.9 % Sodium Chloride 50 ML IV ×4 (00:19→18:29)
--- NOTE | 2022-04-18 00:52 | PC.NURSE ---
pt changed into hospital clothes by this RN and EDT
[2022-04-18 01:04] LABS: Amphetamine Screen Urine Not Detected (Not Detect); Barbiturates, Urine Not Detected (Not Detect); Benzodiazepines Screen Urine Not Detected (Not Detect); Cannabinoid Screen Urine POSITIVE (Not Detect); Cocaine Screen Urine Not Detected (Not Detect); Fentanyl, urine POSITIVE (Not Detect); Opiate Screen Urine Not Detected (Not Detect); Phencyclidine Screen Urine Not Detected (Not Detect)
--- NOTE | 2022-04-18 01:11 | PC.NURSE ---
pt provided with water.
[2022-04-18 01:14] LABS: Appearance Urine CLEAR; Color Urine YELLOW; Glucose Urine UA NEG (NEG); Leukocyte Esterase Urine NEG (NEG); Nitrite Urine NEG (NEG); PH 5.5 (5.0-8.0); Specific Gravity - Urine >= 1.030 (1.005-1.025); UACC Culture Trigger NO; Urine Blood 2+ (NEG); Urine Ketones NEG (NEG); Urine Protein 3+ MG/DL (NEG-TRACE)
[2022-04-18 01:24] LABS: Bacteria Urine 2+ /LPF; Mucus Urine 2+ /LPF; Squamous Epithelial Cell Urine 2+ /LPF
[2022-04-18 01:26] LABS: Reflex Lactate? 2 Y
--- NOTE | 2022-04-18 01:53 | P.HPHOSP_ITS ---
History of Present Illness Date of Service: 04/18/22 Chief Complaint: AMS this is a 51-year-old male with past medical history of bipolar disorder, CHF, diabetes, hyperlipidemia, ischemic cardiomyopathy, history of osteomyelitis, PVD, presents to the hospital with concerns for altered mental status for via EMS. History is obtained mostly from EMR as patient is Not give much history and is not cooperating does not respond to questions about review of systems, has not given much history of the events that brought him to the hospital. According to EMS patient's landlord was not able to communicate with patient for over 24 hours, they were concerned, when landlord was finally able to get in contact with patient today he told EMS that patient was ?unresponsive ?. On arrival to the ED patient found to have a temp of 96.4 degrees, heart rate of 112, respiratory rate of 17, otherwise unremarkable Labs on arrival were significant for WBC count 9.6, pH of 7.4, BUN of 18, creatinine of 1.2 low, lactic acid of 10, total bili of 2.3, AST of 62, ALT of 36, alk-phos of 141, troponin normal, albumin of 3.2, UA negative for any acute infection, UDS positive fentanyl as well as marijuana CT pelvic abdomen showed no acute intra-abdominal process, cholelithiasis with no gross pericholecystic inflammatory change or evidence of biliary ductal dilatation. Findings suggestive of underlying hepatic fibrosis / cirrhosis, small volume ascites and body wall edema. Chest x-ray negative Review of Systems Review of Systems: Yes all other systems are reviewed and are negative [facility] Medical History Abscess or cellulitis of foot Acute on chronic anemia Acute on chronic combined systolic and diastolic congestive heart failure Acute on chronic HFrEF (heart failure with reduced ejection fraction) Acute respiratory failure with hypoxia Asthma Bipolar 1 disorder BPH (benign prostatic hyperplasia) CHF (congestive heart failure) CHF exacerbation Cholelithiasis Closed wedge compression fracture of T9 vertebra COPD (chronic obstructive pulmonary disease) Diabetes mellitus Diabetes mellitus, type 2 Elevated troponin GERD (gastroesophageal reflux disease) Hyperlipidemia Ischemic cardiomyopathy Lymphadenopathy Opiate abuse, continuous Osteomyelitis Peripheral arterial disease Peripheral neuropathy Peripheral vascular disease Substance abuse Tracheomalacia, acquired Family History Father Chronic mental illness Hypertension Asthma Stroke Mother Asthma Diabetes Coronary artery disease Surgical History History of amputation History of laminectomy History of transurethral resection of prostate Hx of BKA Social History Household Members: Other Housing: Snf Housing Other:: IN A LITTLE ROOM Do you presently have visiting nurse or other home services: No Alcohol intake: unknown Patient Tobacco Use Status: Never used Tobacco e-Cigarette/Vaping Use: Never Used Second Hand Smoke Exposure: No Use of substances other than those prescribed or required for medical reasons: Unknown Substance Use Type: Opiates Advance Directives: Yes Advance Directives on File: Yes Advance Directives Date on File: 11/24/20 service: No Current occupational status: disabled Meds Allergies Allergy/AdvReac Type Severity Reaction Status Date / Time ertapenem Allergy Intermediate Hives Verified 02/21/22 18:40 vancomycin [VANCOMYCIN] Allergy Intermediate HIVES Verified 02/21/22 18:40 Chocolate Allergy Unknown Rash Verified 02/21/22 18:40 ciprofloxacin [From CIPRO] Allergy Unknown SWELLING Verified 02/21/22 18:40 hydrocortisone [Cipro HC] Allergy Unknown Unknown Verified 02/21/22 18:40 sulfamethoxazole Allergy Unknown rash Verified 02/21/22 18:40 [From BACTRIM] trimethoprim [From BACTRIM] Allergy Unknown rash Verified 02/21/22 18:40 turkey [TURKEY] Allergy Unknown RASH Verified 02/21/22 18:40 Home Medications Medication Instructions Recorded Confirmed Last Taken Type albuterol sulfate 90 mcg/actuation 2 puff INHALATION Q4-6H PRN 03/08/22 04/18/22 Unknown History aerosol inhaler (ProAir HFA) aspirin 81 mg tablet,delayed 1 tab PO QAM 03/08/22 04/18/22 Unknown History release atorvastatin 20 mg tablet 1 tab PO BEDTIME 03/08/22 04/18/22 Unknown History carvedilol 6.25 mg tablet 1 tab PO BID 03/08/22 04/18/22 Unknown History cetirizine 10 mg tablet 1 tab PO QAM 03/08/22 04/18/22 Unknown History clopidogrel 75 mg tablet 1 tab PO QAM 03/08/22 04/18/22 Unknown History famotidine 20 mg tablet 1 tab PO BID 03/08/22 04/18/22 Unknown History fluticasone 500 mcg-salmeterol 50 1 puff PO BID 03/08/22 04/18/22 Unknown History mcg/dose blistr powdr for inhalation (Advair Diskus) fluticasone propionate 50 1 - 2 spray INTRANASAL DAILY PRN 03/08/22 04/18/22 Unknown History mcg/actuation nasal spray,suspension furosemide 40 mg tablet 1 tab PO DAILY 03/08/22 04/18/22 Unknown History gabapentin 100 mg capsule 2 cap PO TID 03/08/22 04/18/22 Unknown History insulin aspart U-100 100 unit/mL 5 unit SUBCUT TID 03/08/22 04/18/22 Unknown History (3 mL) subcutaneous pen (Novolog Flexpen U-100 Insulin aspart) insulin glargine 100 unit/mL (3 12 unit SUBCUT BEDTIME 03/08/22 04/18/22 03/07/22 History mL) subcutaneous pen (Lantus Solostar U-100 Insulin) lidocaine 5 % topical patch 1 patch TOPICAL DAILY 03/08/22 04/18/22 Unknown Hist ory (Lidoderm) methadone 10 mg/mL oral concentrate 52 mg PO DAILY 03/08/22 04/18/22 03/08/22 History montelukast 10 mg tablet 1 tab PO QPM 03/08/22 04/18/22 Unknown History spironolactone 25 mg tablet 0.5 tab PO QAM 03/08/22 04/18/22 Unknown History tamsulosin 0.4 mg capsule 1 cap PO QPM 03/08/22 04/18/22 Unknown History zinc sulfate 50 mg zinc (220 mg) 1 cap PO DAILY 03/08/22 04/18/22 Unknown History capsule bumetanide 2 mg tablet 2 mg PO BID 03/30/22 04/18/22 Unknown History sacubitril 24 mg-valsartan 26 mg 1 tab PO BID 03/30/22 04/18/22 Unknown History tablet (Entresto) Physical Exam Vital Signs and Narrative: Vital Signs: Last Vital Signs Temp 98 F 04/18/22 00:49 Pulse 109 H 04/18/22 00:49 Resp 16 04/18/22 00:49 BP 131/70 04/18/22 00:49 Pulse Ox 99 04/18/22 00:49 BMI result Body Mass Index 27.8 Const: Other: patient is lethargic but arousable, not cooperating General: cooperative and no acute distress Eyes: General: appearance normal, both eyes and all related structures Pupils: Equal, round and reactive pupils present Resp: Effort & Inspection: normal respiratory effort Auscultation: clear to auscultation bilaterally Cardio: Rate: regular rate Rhythm: regular rhythm GI: Palpation (GI): Soft to palpation Auscultation: normal bowel sounds Skin: Other: multiple scab wounds throughout the body General skin exam: no rashes or lesions noted Neuro: Cranial nerves: Yes Equal, round and reactive pupils present C ognition (Neuro): normal cognition Extrem: Other: right below-knee amputation, 2+ pitting edema bilaterally left big toe wound that appears to be healed, no evidence of erythema tenderness warmth or edema. Results Labs CBC and Chem 7: 04/18/22 05:58 04/18/22 05:58 Labs: Laboratory Results - last 24 hr 04/17/22 04/17/22 04/17/22 20:25 20:25 20:25 MCV 86.0 MCH 27.0 MCHC 31.4 RDW 21.9 H Plt Count 421 H D MPV 9.8 Immature Gran % (Auto) 0.5 H Neut % (Auto) 85.3 H Lymph % (Auto) 9.0 L [place] % (Auto) 5.1 Eos % (Auto) 0.0 Baso % (Auto) 0.1 Lymph # (Auto) 0.9 L [place] # (Auto) 0.5 Eos # (Auto) 0.0 Baso # (Auto) 0.0 Abs Immat Gran (auto) 0.05 H Absolute Neuts (auto) 8.1 Absolute Nucleated RBC 0.030 H Nucleated RBC % (auto) 0.3 H VBG pH VBG pCO2 VBG pO2 VBG HCO3 VBG O2 Saturation VBG Base Excess Anion Gap 30 H Estim Creat Clear Calc 67.7 Estimated GFR > 60 Random Glucose 190 H D Lactic Acid Lactic Acid F/U @ 2Hr Calcium 9.4 D Magnesium 1.8 Total Bilirubin 2.3 H AST 62 H ALT 36 Alkaline Phosphatase 141 H D Ammonia Troponin I High Sens 21.3 D Total Protein 7.4 D Albumin 3.2 L Urine Color Urine Appearance Urine pH Ur Specific [place] Urine Protein Urine Glucose (UA) Urine Ketones Urine Blood Urine Nitrite Ur Leukocyte Esterase Urine RBC Urine WBC Ur Squamous Epith Cells Urine Bacteria Hyaline Casts Granular Casts Urine Mucus Urine Opiates Screen Urine Fentanyl Screen Ur Barbiturates Screen Ur Phencyclidine Scrn Ur Amphetamines Screen U Benzodiazepines Scrn Urine Cocaine Screen U Marijuana (THC) Screen Ethyl Alcohol COVID-19 ([facility]ILA) COVID-19 Clin Com 04/17/22 04/17/22 04/17/22 20:25 20:25 20:59 MCV MCH MCHC RDW Plt Count MPV Immature Gran % (Auto) Neut % (Auto) Lymph % (Auto) [place] % (Auto) Eos % (Auto) Baso % (Auto) Lymph # (Auto) [place] # (Auto) Eos # (Auto) Baso # (Auto) Abs Immat Gran (auto) Absolute Neuts (auto) Absolute Nucleated RBC Nucleated RBC % (auto) VBG pH VBG pCO2 VBG pO2 VBG HCO3 VBG O2 Saturation VBG Base Excess Anion Gap Estim Creat Clear Calc Estimated GFR Random Glucose Lactic Acid Lactic Acid F/U @ 2Hr Calcium Magnesium Total Bilirubin AST ALT Alkaline Phosphatase Ammonia 28 Troponin I High Sens Total Protein Albumin Urine Color Urine Appearance Urine pH Ur Specific [place] Urine Protein Urine Glucose (UA) Urine Ketones Urine Blood Urine Nitrite Ur Leukocyte Esterase Urine RBC Urine WBC Ur Squamous Epith Cells Urine Bacteria Hyaline Casts Granular Casts Urine Mucus Urine Opiates Screen Urine Fentanyl Screen Ur Barbiturates Screen Ur Phencyclidine Scrn Ur Amphetamines Screen U Benzodiazepines Scrn Urine Cocaine Screen U Marijuana (THC) Screen Ethyl Alcohol < 10 COVID-19 (J[facility]ILA) Negative COVID-19 Clin Com See Note 04/17/22 04/17/22 04/17/22 20:59 21:40 21:50 MCV MCH MCHC RDW Plt Count MPV Immature Gran % (Auto) Neut % (Auto) Lymph % (Auto) [place] % (Auto) Eos % (Auto) Baso % (Auto) Lymph # (Auto) [place] # (Auto) Eos # (Auto) Baso # (Auto) Abs Immat Gran (auto) Absolute Neuts (auto) Absolute Nucleated RBC Nucleated RBC % (auto) VBG pH 7.40 VBG pCO2 21 VBG pO2 176 VBG HCO3 13 L VBG O2 Saturation 100.0 VBG Base Excess -8.6 Anion Gap Estim Creat Clear Calc Estimated GFR Random Glucose Lactic Acid 10.0 H* Lactic Acid F/U @ 2Hr Calcium Magnesium Total Bilirubin AST ALT Alkaline Phosphatase Ammonia Troponin I High Sens 19.9 Total Protein Albumin Urine Color Urine Appearance Urine pH Ur Specific [place] Urine Protein Urine Glucose (UA) Urine Ketones Urine Blood Urine Nitrite Ur Leukocyte Esterase Urine RBC Urine WBC Ur Squamous Epith Cells Urine Bacteria Hyaline Casts Granular Casts Urine Mucus Urine Opiates Screen Urine Fentanyl Screen Ur Barbiturates Screen Ur Phencyclidine Scrn Ur Amphetamines Screen U Benzodiazepines Scrn Urine Cocaine Screen U Marijuana (THC) Screen Ethyl Alcohol COVID-19 (JAMILA) COVID-19 [email or web address] Com 04/17/22 04/18/22 04/18/22 23:23 00:31 00:32 MCV MCH MCHC RDW Plt Count MPV Immature Gran % (Auto) Neut % (Auto) Lymph % (Auto) [place] % (Auto) Eos % (Auto) Baso % (Auto) Lymph # (Auto) [place] # (Auto) Eos # (Auto) Baso # (Auto) Abs Immat Gran (auto) Absolute Neuts (auto) Absolute Nucleated RBC Nucleated RBC % (auto) VBG pH VBG pCO2 VBG pO2 VBG HCO3 VBG O2 Saturation VBG Base Excess Anion Gap Estim Creat Clear Calc Estimated GFR Random Glucose Lactic Acid Lactic Acid F/U @ 2Hr 8.2 H* Calcium Magnesium Total Bilirubin AST ALT Alkaline Phosphatase Ammonia Troponin I High Sens Total Protein Albumin Urine Color YELLOW Urine Appearance CLEAR Urine pH 5.5 Ur Specific [place] >= 1.030 H Urine Protein 3+ H Urine Glucose (UA) NEG Urine Ketones NEG Urine Blood 2+ H Urine Nitrite NEG Ur Leukocyte Esterase NEG Urine RBC 1-4 Urine WBC 1-4 Ur Squamous Epith Cells 2+ Urine Bacteria 2+ Hyaline Casts 10-14 Granular Casts 1-4 Urine Mucus 2+ Urine Opiates Screen Not Detected Urine Fentanyl Screen POSITIVE H Ur Barbiturates Screen Not Detected Ur Phencyclidine Scrn Not Detected Ur Amphetamines Screen Not Detected U Benzodiazepines Scrn Not Detected Urine Cocaine Screen Not Detected U Marijuana (THC) Screen POSITIVE H Ethyl Alcohol COVID-19 (JAMILA) COVID-19 Clin Com Imaging Radiologist's Impressions: Impressions Head CT 04/17/22 19:38 IMPRESSION: *No acute intracranial abnormalities. *Possible mild diffuse parenchymal volume loss the brain. *Extensive diffuse extracranial vascular calcifications which may represent the sequela of diabetes mellitus or chronic renal dysfunction. Chest X-Ray 04/18/22 00:20 IMPRESSION: Cardiomegaly. No acute intrathoracic disease. Assessment and Plan (1) Elevated lactic acid level: Status: Acute (2) Encephalopathy: Status: Acute Plan This is a 51-year-old male with past medical history as mentioned above who presents to the hospital with altered mental status found to have elevated lactic acid # lactic acidosis - unclear etiology at this time - since being in the ED patient has not had any hypoxia, no hypotension, patient afebrile, no leukocytosis, CT abdomen negative for any acute abnormality except for cholelithiasis, chest x-ray negative, UA shows no acute infection - at this time given the cholelithiasis will obtain ultrasound of the abdomen but unlikely to be the cause of his lactic acidosis - will treat with IV fluids - broad-spectrum antibiotics until cultures negative - review of patient's medications shows that he was on multiple antibiotics including doxycycline as well as admit to an as well as fluconazole but unknown etiology and patient unable to give much history # encephalopathy - unclear etiology, UDS positive for fentanyl and marijuana, no evidence of acute infection except the lactic acidosis - will treat with IV fluids - normal ammonia level - consider MRI it does not improve # CHF - not in acute exacerbation, hypoxic, no dyspnea, no chest x-ray showing any volume overload - continue Bumex, carvedilol, - patient also appears to be on furosemide per med review, will hold # diabetes - low-dose sliding scale insulin - diabetic diet DVT prophylaxis: Heparin subQ given the encephalopathy, as well as significant lactic acidosis, patient will require to night hospital stay for further management and evaluation Quality Stroke Does the patient have a stroke diagnosis?: No VTE Prior VTE?: No VTE Risk Level:: Medical - moderate - high VTE Device Contraindication: Treatment Not Indicated VTE Drug Contraindication: N/A - Med Ordered
[2022-04-18] MEDS: Lactated Ringers 1,000 ML 125 ML IVCONT (02:29)
[2022-04-18] MEDS: Heparin Sodium,Porcine 5,000 UNIT/ML VIAL 5000 UNIT SUBCUT (02:34)
--- NOTE | 2022-04-18 04:32 | PC.NURSE ---
RECEIVED FROM MAIN ER TO OVERFLOW BED 11..DROWSY...AWAKE SPONTANEOUSLY...REFUSES TO ANSWER MANY QUESTIONS..RESPIRATIONS EASY ON ROOM AIR...VSS...LR 125 CC/HR...RIGHT BKA...LEFT GREAT TOE WITH NON-DRAINING WOUND..MULTIPLE LESIONS TO LEG/THIGHS..DENIES PAIN..DOZING WHEN UNSTIMULATED
[2022-04-18 06:09] LABS: Basophils Percent Auto 0.1 % (0-2); Hematocrit 47.9 % (42.0-52.0); Hemoglobin 15.5 g/dl (14.0-18.0); Imm Gran Abs Auto 0.13 X10*3/uL (0.00-0.03); Imm Gran Pct Auto 0.7 % (0.0-0.4); Lymphocytes Absolute Auto 0.6 X10*3/uL (1.2-4.9); Lymphocytes Percent Auto 3.6 % (20-40); MANUAL DIFF FLAG SCAN; Mean Corpuscular HGB Conc 32.4 g/dl (31.0-36.0); Mean Corpuscular Hemoglobin 27.3 pg (27.0-33.0); Mean Corpuscular Volume 84.3 fL (80.0-98.0); Mean Platelet Volume 10.4 fL (9.4-12.4); Monocytes Absolute Auto 1.7 X10*3/uL (0.1-1.2); Monocytes Percent Auto 9.4 % (2-11); Neutrophils Absolute Auto 15.3 x10*3/uL (2.0-8.3); Neutrophils Percent Auto 86.2 % (45-73); Platelet Count 343 X10*3/uL (160-400); Red Blood Count 5.68 X10*6/uL (4.60-5.80); SCAN SMEAR FLAG 1; White Blood Count 17.7 X10*3/uL (4.8-10.8)
[2022-04-18 06:20] LABS: Anion Gap 20 (12-20); Blood Urea Nitrogen 24 mg/dL (9-16); Calcium 8.4 mg/dL (8.4-10.2); Carbon Dioxide 19 mmol/L (22-29); Chloride 100 mmol/L (96-108); Creatinine Clr Calc Pharmacy 68.3; Estimated Glomerular Filt Rate > 60; Glucose Random 249 mg/dL (60-115); Sodium 134 mmol/L (135-145)
[2022-04-18 06:27] LABS: SLIDE REVIEW VERIFIED
--- NOTE | 2022-04-18 07:44 | PHA.MEDREC ---
Pharmacy Consult ? Medication Reconciliation Pharmacy has completed the medication reconciliation. Patient recently discahrged 04/04/22. Med rec completed by list from [facility] as well as discharge summary and claim history. Methadone need to be confirmed with clinic still, I let the RN of patient know. Prisca Johnson, PharmD
[2022-04-18 08:00] LABS: HBS Num1 17.27 mIU/mL (0-7.99); HBsAGNum1 0.26 S/CO (0.00-0.99); Hepatitis B Core Antibody Nonreactive (Nonreactive); Hepatitis B Surface Antigen Negative (Negative); ~HepC Num1 9.18 S/CO (0.00-0.79); ~Hepatitis B Surface Antibody REACTIVE (Nonreactive); ~Hepatitis C Antibody Reactive (Nonreactive)
[2022-04-18] MEDS: carvediloL 6.25 MG TABLET PO (08:30)
[2022-04-18] MEDS: Spironolactone 25 MG TABLET 12.5 MG PO (08:31)
[2022-04-18] MEDS: Loratadine 10 MG TABLET PO (08:31)
[2022-04-18] MEDS: Bumetanide 1 MG TABLET 2 MG PO (08:31)
[2022-04-18] MEDS: Gabapentin 100 MG CAPSULE 200 MG PO (08:31)
[2022-04-18] MEDS: Aspirin Enteric Coated 81 MG TABLET.DR PO (08:31)
[2022-04-18] MEDS: Famotidine 20 MG TABLET PO (08:31)
[2022-04-18] MEDS: Clopidogrel Bisulfate 75 MG TABLET PO (08:31)
[2022-04-18] MEDS: Sacubitril/Valsartan 24/26 1 TAB TABLET PO (08:31)
[2022-04-18] MEDS: Zinc Sulfate 220 MG CAPSULE PO (09:17)
[2022-04-18] MEDS: methADONE HCl 20 MG/2 ML ORAL.CONC 52 MG PO (09:17)
--- NOTE | 2022-04-18 09:18 | MHC.RECOVSUP ---
Recovery Support note: Patient is a 51 year old male who presented to [facility] [place] after being found unresponsive in his apartment. Patient's RN requested assistance verifying this patient's methadone dose. Rachael at [facility] reports that patient last dosed in the clinic on 04/13 and that he receives take home bottles of 52mg. Patient reports he last took a bottle yesterday, 04/17. Verification form completed and faxed to pharmacy. RN aware. Patient is positive for fentanyl and would benefit from a discussion regarding his substance use and recovery supports with the Recovery Support Team prior to discharge.
--- NOTE | 2022-04-18 10:37 | PC.NURSE ---
pt not cooperative or enagaging in care. hospitalist at bedside. pt not willing to participate in exam or answer questions.
[2022-04-18 12:05] LABS: Glucose, Whole Blood 226 mg/dL (60-115)
--- NOTE | 2022-04-18 13:07 | W.PM.IDCN ---
History of Present Illness Data of Consult Service Date: 04/18/22 Requesting physician: Macy Foy Primary Care Provider: Ashley Pednleton MD HPI Reason for consult: lactic acidosis He presents with lethargy and not able to speak. His landlord did a wellness check on him I had seen him 03/30 for balanitis and he received po Augmentin and Doxycycline on discharge. Review of Systems Review of Systems: Yes Unobtainable due to mental condition [facility] Past Medical History Medical History Abscess or cellulitis of foot Acute on chronic anemia Acute on chronic combined systolic and diastolic congestive heart failure Acute on chronic HFrEF (heart failure with reduced ejection fraction) Acute respiratory failure with hypoxia Asthma Bipolar 1 disorder BPH (benign prostatic hyperplasia) CHF (congestive heart failure) CHF exacerbation Cholelithiasis Closed wedge compression fracture of T9 vertebra COPD (chronic obstructive pulmonary disease) Diabetes mellitus Diabetes mellitus, type 2 Elevated troponin GERD (gastroesophageal reflux disease) Hyperlipidemia Ischemic cardiomyopathy Lymphadenopathy Opiate abuse, continuous Osteomyelitis Peripheral arterial disease Peripheral neuropathy Peripheral vascular disease Substance abuse Tracheomalacia, acquired Family History Family History Father Chronic mental illness Hypertension Asthma Stroke Mother Asthma Diabetes Coronary artery disease Surgical History Surgical History History of amputation History of laminectomy History of transurethral resection of prostate Hx of BKA Social History Social History Household Members: Other Housing: Senior Living Housing Other:: IN A LITTLE ROOM Do you presently have visiting nurse or other home services: No Alcohol intake: unknown Patient Tobacco Use Status: Never used Tobacco e-Cigarette/Vaping Use: Never Used Second Hand Smoke Exposure: No Substance Use Type: Opiates Advance Directives Date on File: 11/24/20 service: No Current occupational status: disabled Meds Allergies Allergy/AdvReac Type Severity Reaction Status Date / Time ertapenem Allergy Intermediate Hives Verified 02/21/22 18:40 vancomycin [VANCOMYCIN] Allergy Intermediate HIVES Verified 02/21/22 18:40 Chocolate Allergy Unknown Rash Verified 02/21/22 18:40 ciprofloxacin [From CIPRO] Allergy Unknown SWELLING Verified 02/21/22 18:40 hydrocortisone [Cipro HC] Allergy Unknown Unknown Verified 02/21/22 18:40 sulfamethoxazole Allergy Unknown rash Verified 02/21/22 18:40 [From BACTRIM] trimethoprim [From BACTRIM] Allergy Unknown rash Verified 02/21/22 18:40 turkey [TURKEY] Allergy Unknown RASH Verified 02/21/22 18:40 Active Medications: Current Medications Acetaminophen (Acetaminophen 325 Mg Tablet) 650 mg PO Q6H PRN PRN Reason: Pain, Mild (Pain Scale 1-3) Albuterol Sulfate (Albuterol Sulfate 90 Mcg 8 Gm Inhaler) 2 puff INHALE Q4H PRN PRN Reason: dyspnea Aspirin (Aspirin Enteric Coated 81 Mg Tablet.Dr) 81 mg PO DAILY [facility] Last Admin: 04/18/22 08:31 Dose: 81 mg Documented by: Atorvastatin Calcium (Atorvastatin Calcium 20 Mg Tablet) 20 mg PO BEDTIME [facility] Bumetanide (Bumetanide 1 Mg Tablet) 2 mg PO BID [facility]; Protocol Last Admin: 04/18/22 08:31 Dose: 2 mg Documented by: Carvedilol (Carvedilol 6.25 Mg Tablet) 6.25 mg PO BID [facility]; Protocol Last Admin: 04/18/22 08:30 Dose: 6.25 mg Documented by: Clopidogrel Bisulfate (Clopidogrel Bisulfate 75 Mg Tablet) 75 mg PO DAILY [facility] Last Admin: 04/18/22 08:31 Dose: 75 mg Documented by: Dextrose (Dextrose 50 % 25 Gm/50 Ml Syringe) 25 gm IVPUSH Q15M PRN; Protocol PRN Reason: per Hypoglycemia Standing Ord. Famotidine (Famotidine 20 Mg Tablet) 20 mg PO BID [facility] Last Admin: 04/18/22 08:31 Dose: 20 mg Documented by: Fluticasone Propionate (Fluticasone Propionate Nasal 16 Gm [place]) 2 spray NOSTRIL-B DAILY PRN PRN Reason: Allergy Symptoms Fluticasone/Vilanterol (Fluticasone/Vilanterol 200/25 Blst.W.Dev) 1 puff INHALE RDAILY [facility] Last Admin: 04/18/22 08:20 Dose: Not Given Documented by: Gabapentin (Gabapentin 100 Mg Capsule) 200 mg PO TID [facility] Last Admin: 04/18/22 08:31 Dose: 200 mg Documented by: Glucose (Glucose Gel 15 Gm Gel..Gram.) 15 gm PO Q15M PRN; Protocol PRN Reason: per Hypoglycemia Standing Ord. Heparin Sodium (Porcine) (Heparin Sodium,Porcine 5,000 Unit/Ml Vial) 5,000 unit SUBCUT Q12H [facility] Last Admin: 04/18/22 02:34 Dose: 5,000 unit Documented by: Lactated Ringer's (Lr) 1,000 mls @ 125 mls/hr IVCONT .Q8H [facility] Last Infusion: 04/18/22 10:29 Dose: Infused Documented by: Piperacillin Sod/Tazobactam (Sod 3.375 gm/ Sodium Chloride) 50 mls @ 100 mls/hr IV Q6H [facility] Last Infusion: 04/18/22 07:13 Dose: Infused Documented by: Insulin Glargine (Insulin Glargine,Hum.Rec.Anlog 100 Unit/Ml 10 Ml Vial) 12 unit SUBCUT BEDTIME [facility] Insulin Human Lispro (Insulin Lispro 100 Unit/Ml 3 Ml Vial) 5 unit SUBCUT TIDAC [facility] Insulin Human Lispro (Insulin Lispro 100 Unit/Ml 3 Ml Vial) 0 unit SUBCUT QIDACHS [facility]; Protocol Lidocaine (Lidocaine 4 % Patch Adh..Patch) 1 patch TRANSDERMA DAILY [facility] Last Admin: 04/18/22 08:32 Dose: Not Given Documented by: Loratadine (Loratadine 10 Mg Tablet) 10 mg PO DAILY [facility] Last Admin: 04/18/22 08:31 Dose: 10 mg Documented by: Methadone HCl (Methadone Hcl 20 Mg/2 Ml Oral.Conc) 52 mg PO DAILY [facility] Last Admin: 04/18/22 09:17 Dose: 52 mg Documented by: Montelukast Sodium (Montelukast Sodium 10 Mg Tablet) 10 mg PO BEDTIME [facility] Ondansetron HCl (Ondansetron Hcl 4 Mg/2 Ml Vial) 4 mg IVPUSH Q8H PRN PRN Reason: Nausea and Vomiting Sacubitril/Valsartan (Sacubitril/Valsartan 1 Tab Tablet) 1 tab PO BID [facility]; Protocol Last Admin: 04/18/22 08:31 Dose: 1 tab Documented by: Sodium Chloride (0.9 % Sodium Chloride Flush 3 Ml Syringe) 3 ml IVFLUSH QSHIFT [facility] Last Admin: 04/18/22 07:16 Dose: Not Given Documented by: Spironolactone (Spironolactone 25 Mg Tablet) 12.5 mg PO DAILY [facility]; Protocol Last Admin: 04/18/22 08:31 Dose: 12.5 mg Documented by: Tamsulosin HCl (Tamsulosin Hcl 0.4 Mg Capsule) 0.4 mg PO BEDTIME [facility] Zinc Sulfate (Zinc Sulfate 220 Mg Capsule) 220 mg PO DAILY [facility] Last Admin: 04/18/22 09:17 Dose: 220 mg Documented by: Home Medications Medication Instructions Recorded Confirmed Last Taken Type albuterol sulfate 90 mcg/actuation 2 puff INHALATION Q4-6H PRN 03/08/22 04/18/22 Unknown History aerosol inhaler (ProAir HFA) aspirin 81 mg tablet,delayed 1 tab PO QAM 03/08/22 04/18/22 Unknown History release atorvastatin 20 mg tablet 1 tab PO BEDTIME 03/08/22 04/18/22 Unknown History carvedilol 6.25 mg tablet 1 tab PO BID 03/08/22 04/18/22 Unknown History cetirizine 10 mg tablet 1 tab PO QAM 03/08/22 04/18/22 Unknown History clopidogrel 75 mg tablet 1 tab PO QAM 03/08/22 04/18/22 Unknown History famotidine 20 mg tablet 1 tab PO BID 03/08/22 04/18/22 Unknown History fluticasone 500 mcg-salmeterol 50 1 puff PO BID 03/08/22 04/18/22 Unknown History mcg/dose blistr powdr for inhalation (Advair Diskus) fluticasone propionate 50 1 - 2 spray INTRANASAL DAILY PRN 03/08/22 04/18/22 Unknown History mcg/actuation nasal spray,suspension furosemide 40 mg tablet 1 tab PO DAILY 03/08/22 04/18/22 Unknown History gabapentin 100 mg capsule 2 cap PO TID 03/08/22 04/18/22 Unknown History insulin aspart U-100 100 unit/mL 5 unit SUBCUT TID 03/08/22 04/18/22 Unknown History (3 mL) subcutaneous pen (Novolog Flexpen U-100 Insulin aspart) insulin glargine 100 unit/mL (3 12 unit SUBCUT BEDTIME 03/08/22 04/18/22 03/07/22 History mL) subcutaneous pen (Lantus Solostar U-100 Insulin) lidocaine 5 % topical patch 1 patch TOPICAL DAILY 03/08/22 04/18/22 Unknown History (Lidoderm) methadone 10 mg/mL oral concentrate 52 mg PO DAILY 03/08/22 04/18/22 03/08/22 History montelukast 10 mg tablet 1 tab PO QPM 03/08/22 04/18/22 Unknown History spironolactone 25 mg tablet 0.5 tab PO QAM 03/08/22 04/18/22 Unknown History tamsulosin 0.4 mg capsule 1 cap PO QPM 03/08/22 04/18/22 Unknown History zinc sulfate 50 mg zinc (220 mg) 1 cap PO DAILY 03/08/22 04/18/22 Unknown History capsule bumetanide 2 mg tablet 2 mg PO BID 03/30/22 04/18/22 Unknown History sacubitril 24 mg-valsartan 26 mg 1 tab PO BID 03/30/22 04/18/22 Unknown History tablet (Entresto) Physical Exam Vital Signs: Vital Signs: Last Vital Signs Temp 96.8 F 04/18/22 12:00 Pulse 76 04/18/22 12:00 Resp 18 04/18/22 12:00 BP 121/79 04/18/22 12:00 Pulse Ox 100 04/18/22 12:00 BMI result Body Mass Index 27.8 Const: General: cooperative Eyes: General: appearance normal, both eyes and all related structures Resp: Effort & Inspection: normal respiratory effort Cardio: Rate: regular rate Rhythm: regular rhythm GI: Palpation (GI): Soft to palpation and nontender Extrem: General: Yes normal to inspection Results Labs CBC & Chem 7: 04/18/22 05:58 04/18/22 05:58 Labs: Short CBC 04/17/22 04/18/22 Range/Units 20:25 05:58 WBC 9.6 17.7 H (4.8-10.8) X10*3/uL Hgb 17.1 D 15.5 (14.0-18.0) g/dl Hct 54.5 H D 47.9 (42.0-52.0) % Plt Count 421 H D 343 (160-400) X10*3/uL BMP 04/17/22 04/18/22 20:25 05:58 Sodium 136 134 L Potassium 4.8 D 5.0 Chloride 98 100 Carbon Dioxide 13 L 19 L BUN 18 H 24 H Creatinine 1.20 1.19 Calcium 9.4 D 8.4 D Liver Function 04/17/22 Range/Units 20:25 Total Bilirubin 2.3 H (0.0-1.0) mg/dL AST 62 H (5-37) U/L ALT 36 (0-40) U/L Alkaline Phosphatase 141 H D (39-117) U/L Albumin 3.2 L (3.5-5.0) g/dL Urine 04/18/22 Range/Units 00:32 Urine Color YELLOW Urine Appearance CLEAR Urine pH 5.5 (5.0-8.0) Ur Specific [place] >= 1.030 H (1.005-1.025) Urine Protein 3+ H (NEG-TRACE) MG/DL Urine Glucose (UA) NEG (NEG) MG/DL Assessment and Plan (1) Encephalopathy: Status: Acute He has multiple allegies and recent balanitis with prescribed antibiotics. There doesnt be any clear source of infection,so possible patient with drug side effect. (2) Malaise: Status: Acute (3) Elevated lactic acid level: Status: Acute Plan Would stop Zosyn tomorrow if no bacterial source found or suspected Consider LP if febrile or other neurologic findings.
--- NOTE | 2022-04-18 13:20 | CONS_ITS ---
DATE OF SERVICE: REASON FOR CONSULTATION: I was called to see this patient today to assist with management of lactic acidosis. HISTORY OF PRESENT ILLNESS: To summarize, Dominik is well known to us. He has seen my associate Dr. Low in the outpatient setting via Telehealth. He has history of bipolar disorder, CHF with cardiomyopathy with proteinuria. His baseline creatinine has been less than 1 mg/dL. Comes in because of decreased mentation. He was found to have a serum creatinine of 1.2 mg/dL. However, lactic acid level was elevated during this consultation. Interestingly, he tested positive for marijuana. Ongoing medical problems include cellulitis of the foot, chronic anemia, acute on chronic heart failure with reduced ejection fraction, bipolar disorder, COPD, diabetes mellitus, peripheral vascular disease, peripheral neuropathy. FAMILY HISTORY: Father had hypertension and stroke. Mother had asthma, diabetes mellitus and coronary artery disease. SURGICAL HISTORY: Includes amputation of the right lower extremity, laminectomy, TURP. SOCIAL HISTORY: He is a resident of [facility]. He is still using opiates and marijuana. Currently disabled. ALLERGIES: HE IS ALLERGIC TO ERTAPENEM, VANCOMYCIN, CIPRO, HYDROCORTISONE, BACTRIM. MEDICATIONS: At time of admission include albuterol, aspirin, atorvastatin, carvedilol, cetirizine, clopidogrel, famotidine, fluticasone, furosemide 40 mg, gabapentin, insulin, methadone, montelukast, spironolactone, tamsulosin, bumetanide 2 mg b.i.d. and Crestor. REVIEW OF SYSTEM: He was lethargic, but able to answer simple questions. He denies any headache, nausea, or vomiting. No abdominal pain or constipation. No diarrhea. All other systems were reviewed. PHYSICAL EXAMINATION: GENERAL: Dominik is sleepy, but arousable. Not in distress. NECK: Supple. No JVD. Mucosa is dry. LUNGS: Air entry equal. No rales. HEART: S1, S2 heard. No gallop. ABDOMEN: Soft, nontender. EXTREMITIES: Right below-knee amputation. No significant edema. No rash. No clubbing. VITAL SIGNS: Blood pressure was 133/87, pulse 101. LABORATORY DATA: He tested positive for marijuana. Sodium 134, potassium 4.0, BUN 24, creatinine 1.19. Lactic acid was 10.2 on admission, which is gradually trending down to 8.0 as of last night. Hemoglobin 15.5, platelets 343, WBC 20.7. IMPRESSION: 1. A 51-year-old man with acute kidney injury and lactic acidosis. Acute kidney injury is most likely due to volume depletion. Baseline creatinine 0.8, and at present, creatinine is 1.19. Renal function should improve with hydration. 2. Lactic acidosis could be due to the use of marijuana or underlying infection could be playing a role. Note, hypertension has been documented. Likely the lactic acid level is gradually decreasing. We will continue to trend and keep him on IV hydration or hypotension and screen for sepsis. 3. We will follow along with the team. Luis Rainey MD BPA/MODL / [id number]
--- NOTE | 2022-04-18 15:52 | P.PNIM_ITS ---
Subjective Subjective Date of Service: 04/18/22 Interval History: encephalopathy probably multifactorial patient presented with lethargy and land load did wellness check on him- subsequently sent to the hospital for that. Review of Systems Patient is more awake and alert this afternoon. answers some questions and then goes back to sleep and easily responsive to verbal stimuli. Physical Exam Vital Signs: Vital Signs: Last Vital Signs Temp 97.3 F 04/18/22 15:24 Pulse 72 04/18/22 15:24 Resp 20 04/18/22 15:24 BP 93/64 04/18/22 15:24 Pulse Ox 97 04/18/22 15:24 BMI result Body Mass Index 27.8 physical exam unchanged from H&P except: Neuro exam: Answer more questions, seems more awake and alert but still somewhat sleepy. moves extremities when asked. face is symmetrical pupil are equal and reactive. Objective Data Active Medications Acetaminophen (Acetaminophen 325 Mg Tablet) 650 mg PO Q6H PRN PRN Reason: Pain, Mild (Pain Scale 1-3) Albuterol Sulfate (Albuterol Sulfate 90 Mcg 8 Gm Inhaler) 2 puff INHALE Q4H PRN PRN Reason: dyspnea Aspirin (Aspirin Enteric Coated 81 Mg Tablet.) 81 mg PO DAILY [facility] Last Admin: 04/18/22 08:31 Dose: 81 mg Documented by: SUSY Atorvastatin Calcium (Atorvastatin Calcium 20 Mg Tablet) 20 mg PO BEDTIME [facility] Bumetanide (Bumetanide 1 Mg Tablet) 2 mg PO BID [facility]; Protocol Last Admin: 04/18/22 08:31 Dose: 2 mg Documented by: SUSY Carvedilol (Carvedilol 6.25 Mg Tablet) 6.25 mg PO BID [facility]; Protocol Last Admin: 04/18/22 08:30 Dose: 6.25 mg Documented by: SUSY Clopidogrel Bisulfate (Clopidogrel Bisulfate 75 Mg Tablet) 75 mg PO DAILY [facility] Last Admin: 04/18/22 08:31 Dose: 75 mg Documented by: SUSY Dextrose (Dextrose 50 % 25 Gm/50 Ml Syringe) 25 gm IVPUSH Q15M PRN; Protocol PRN Reason: per Hypoglycemia Standing Ord. Famotidine (Famotidine 20 Mg Tablet) 20 mg PO BID [facility] Last Admin: 04/18/22 08:31 Dose: 20 mg Documented by: SUSY Fluticasone Propionate (Fluticasone Propionate Nasal 16 Gm [place]) 2 spray NOSTRIL-B DAILY PRN PRN Reason: Allergy Symptoms Fluticasone/Vilanterol (Fluticasone/Vilanterol 200/25 Blst.W.Dev) 1 puff INHALE RDAILY [facility] Last Admin: 04/18/22 08:20 Dose: Not Given Documented by: ROSANNE Non-Admin Reason: Med Not Available Gabapentin (Gabapentin 100 Mg Capsule) 200 mg PO TID [facility] Last Admin: 04/18/22 08:31 Dose: 200 mg Documented by: SUSY Glucose (Glucose Gel 15 Gm Gel..Gram.) 15 gm PO Q15M PRN; Protocol PRN Reason: per Hypoglycemia Standing Ord. Heparin Sodium (Porcine) (Heparin Sodium,Porcine 5,000 Unit/Ml Vial) 5,000 unit SUBCUT Q12H [facility] Last Admin: 04/18/22 13:29 Dose: Not Given Documented by: CHRISTINE Non-Admin Reason: Patient Refused Lactated Ringer's (Lr) 1,000 mls @ 125 mls/hr IVCONT .Q8H [facility] Last Infusion: 04/18/22 10:29 Dose: 0 mls/hr Documented by: SUSY Piperacillin Sod/Tazobactam (Sod 3.375 gm/ Sodium Chloride) 50 mls @ 100 mls/hr IV Q6H [facility] Last Infusion: 04/18/22 14:21 Dose: 0 mls/hr Documented by: CHRISTINE Insulin Glargine (Insulin Glargine,Hum.Rec.Anlog 100 Unit/Ml 10 Ml Vial) 12 unit SUBCUT BEDTIME [facility] Insulin Human Lispro (Insulin Lispro 100 Unit/Ml 3 Ml Vial) 5 unit SUBCUT TIDAC [facility] Last Admin: 04/18/22 13:29 Dose: Not Given Documented by: CHRISTINE Non-Admin Reason: Waiting for MD to add sliding scale. Insulin Human Lispro (Insulin Lispro 100 Unit/Ml 3 Ml Vial) 0 unit SUBCUT QIDACHS [facility]; Protocol Lidocaine (Lidocaine 4 % Patch Adh..Patch) 1 patch TRANSDERMA DAILY [facility] Last Admin: 04/18/22 08:32 Dose: Not Given Documented by: SUSY Non-Admin Reason: Patient Refused Loratadine (Loratadine 10 Mg Tablet) 10 mg PO DAILY [facility] Last Admin: 04/18/22 08:31 Dose: 10 mg Documented by: SUSY Methadone HCl (Methadone Hcl 20 Mg/2 Ml Oral.Conc) 52 mg PO DAILY [facility] Last Admin: 04/18/22 09:17 Dose: 52 mg Documented by: SUSY Montelukast Sodium (Montelukast Sodium 10 Mg Tablet) 10 mg PO BEDTIME [facility] Ondansetron HCl (Ondansetron Hcl 4 Mg/2 Ml Vial) 4 mg IVPUSH Q8H PRN PRN Reason: Nausea and Vomiting Sacubitril/Valsartan (Sacubitril/Valsartan 1 Tab Tablet) 1 tab PO BID [facility]; Protocol Last Admin: 04/18/22 08:31 Dose: 1 tab Documented by: SUSY Sodium Chloride (0.9 % Sodium Chloride Flush 3 Ml Syringe) 3 ml IVFLUSH QSHIFT [facility] Last Admin: 04/18/22 07:16 Dose: Not Given Documented by: SUSY Non-Admin Reason: IV Running Spironolactone (Spironolactone 25 Mg Tablet) 12.5 mg PO DAILY [facility]; Protocol Last Admin: 04/18/22 08:31 Dose: 12.5 mg Documented by: SUSY Tamsulosin HCl (Tamsulosin Hcl 0.4 Mg Capsule) 0.4 mg PO BEDTIME [facility] Zinc Sulfate (Zinc Sulfate 220 Mg Capsule) 220 mg PO DAILY [facility] Last Admin: 04/18/22 09:17 Dose: 220 mg Documented by: SUSY Labs CBC & Chem 7: 04/18/22 05:58 04/18/22 05:58 Labs: Laboratory Results - last 24 hr 04/17/22 04/17/22 04/17/22 20:25 20:25 20:25 MCV 86.0 MCH 27.0 MCHC 31.4 RDW 21.9 H Plt Count 421 H D MPV 9.8 Immature Gran % (Auto) 0.5 H Neut % (Auto) 85.3 H Lymph % (Auto) 9.0 L [place] % (Auto) 5.1 Eos % (Auto) 0.0 Baso % (Auto) 0.1 Lymph # (Auto) 0.9 L [place] # (Auto) 0.5 Eos # (Auto) 0.0 Baso # (Auto) 0.0 Abs Immat Gran (auto) 0.05 H Absolute Neuts (auto) 8.1 Absolute Nucleated RBC 0.030 H Nucleated RBC % (auto) 0.3 H Smear Tech's Comments VBG pH VBG pCO2 VBG pO2 VBG HCO3 VBG O2 Saturation VBG Base Excess Anion Gap 30 H Estim Creat Clear Calc 67.7 Estimated GFR > 60 POC Glucose Random Glucose 190 H D Lactic Acid Lactic Acid F/U @ 2Hr Lactic Acid F/U @ 4Hr Calcium 9.4 D Magnesium 1.8 Total Bilirubin 2.3 H AST 62 H ALT 36 Alkaline Phosphatase 141 H D Ammonia Troponin I High Sens 21.3 D Total Protein 7.4 D Albumin 3.2 L Urine Color Urine Appearance Urine pH Ur Specific [place] Urine Protein Urine Glucose (UA) Urine Ketones Urine Blood Urine Nitrite Ur Leukocyte Esterase Urine RBC Urine WBC Ur Squamous Epith Cells Urine Bacteria Hyaline Casts Granular Casts Urine Mucus Urine Opiates Screen Urine Fentanyl Screen Ur Barbiturates Screen Ur Phencyclidine Scrn Ur Amphetamines Screen U Benzodiazepines Scrn Urine Cocaine Screen U Marijuana (THC) Screen Ethyl Alcohol COVID-19 (JAMILA) COVID-19 Clin Com Hep Bs Antigen Hep Bs Antibody Hep B Core Total Ab Hepatitis C Ab (EIA) 04/17/22 04/17/22 04/17/22 20:25 20:25 20:59 MCV MCH MCHC RDW Plt Count MPV Immature Gran % (Auto) Neut % (Auto) Lymph % (Auto) [place] % (Auto) Eos % (Auto) Baso % (Auto) Lymph # (Auto) [place] # (Auto) Eos # (Auto) Baso # (Auto) Abs Immat Gran (auto) Absolute Neuts (auto) Absolute Nucleated RBC Nucleated RBC % (auto) Smear Tech's Comments VBG pH VBG pCO2 VBG pO2 VBG HCO3 VBG O2 Saturation VBG Base Excess Anion Gap Estim Creat Clear Calc Estimated GFR POC Glucose Random Glucose Lactic Acid Lactic Acid F/U @ 2Hr Lactic Acid F/U @ 4Hr Calcium Magnesium Total Bilirubin AST ALT Alkaline Phosphatase Ammonia 28 Troponin I High Sens Total Protein Albumin Urine Color Urine Appearance Urine pH Ur Specific [place] Urine Protein Urine Glucose (UA) Urine Ketones Urine Blood Urine Nitrite Ur Leukocyte Esterase Urine RBC Urine WBC Ur Squamous Epith Cells Urine Bacteria Hyaline Casts Granular Casts Urine Mucus Urine Opiates Screen Urine Fentanyl Screen Ur Barbiturates Screen Ur Phencyclidine Scrn Ur Amphetamines Screen U Benzodiazepines Scrn Urine Cocaine Screen U Marijuana (THC) Screen Ethyl Alcohol < 10 COVID-19 (JAMILA) Negative COVID-19 Clin Com See Note Hep Bs Antigen Hep Bs Antibody Hep B Core Total Ab Hepatitis C Ab (EIA) 04/17/22 04/17/22 04/17/22 20:59 21:40 21:50 MCV MCH MCHC RDW Plt Count MPV Immature Gran % (Auto) Neut % (Auto) Lymph % (Auto) [place] % (Auto) Eos % (Auto) Baso % (Auto) Lymph # (Auto) [place] # (Auto) Eos # (Auto) Baso # (Auto) Abs Immat Gran (auto) Absolute Neuts (auto) Absolute Nucleated RBC Nucleated RBC % (auto) Smear Tech's Comments VBG pH 7.40 VBG pCO2 21 VBG pO2 176 VBG HCO3 13 L VBG O2 Saturation 100.0 VBG Base Excess -8.6 Anion Gap Estim Creat Clear Calc Estimated GFR POC Glucose Random Glucose Lactic Acid 10.0 H* Lactic Acid F/U @ 2Hr Lactic Acid F/U @ 4Hr Calcium Magnesium Total Bilirubin AST ALT Alkaline Phosphatase Ammonia Troponin I High Sens 19.9 Total Protein Albumin Urine Color Urine Appearance Urine pH Ur Specific [place] Urine Protein Urine Glucose (UA) Urine Ketones Urine Blood Urine Nitrite Ur Leukocyte Esterase Urine RBC Urine WBC Ur Squamous Epith Cells Urine Bacteria Hyaline Casts Granular Casts Urine Mucus Urine Opiates Screen Urine Fentanyl Screen Ur Barbiturates Screen Ur Phencyclidine Scrn Ur Amphetamines Screen U Benzodiazepines Scrn Urine Cocaine Screen U Marijuana (THC) Screen Ethyl Alcohol COVID-19 (JAMILA) COVID-19 Clin Com Hep Bs Antigen Hep Bs Antibody Hep B Core Total Ab Hepatitis C Ab (EIA) 04/17/22 04/18/22 04/18/22 23:23 00:31 00:32 MCV MCH MCHC RDW Plt Count MPV Immature Gran % (Auto) Neut % (Auto) Lymph % (Auto) [place] % (Auto) Eos % (Auto) Baso % (Auto) Lymph # (Auto) [place] # (Auto) Eos # (Auto) Baso # (Auto) Abs Immat Gran (auto) Absolute Neuts (auto) Absolute Nucleated RBC Nucleated RBC % (auto) Smear Tech's Comments VBG pH VBG pCO2 VBG pO2 VBG HCO3 VBG O2 Saturation VBG Base Excess Anion Gap Estim Creat Clear Calc Estimated GFR POC Glucose Random Glucose Lactic Acid Lactic Acid F/U @ 2Hr 8.2 H* Lactic Acid F/U @ 4Hr Calcium Magnesium Total Bilirubin AST ALT Alkaline Phosphatase Ammonia Troponin I High Sens Total Protein Albumin Urine Color YELLOW Urine Appearance CLEAR Urine pH 5.5 Ur Specific [place] >= 1.030 H Urine Protein 3+ H Urine Glucose (UA) NEG Urine Ketones NEG Urine Blood 2+ H Urine Nitrite NEG Ur Leukocyte Esterase NEG Urine RBC 1-4 Urine WBC 1-4 Ur Squamous Epith Cells 2+ Urine Bacteria 2+ Hyaline Casts 10-14 Granular Casts 1-4 Urine Mucus 2+ Urine Opiates Screen Not Detected Urine Fentanyl Screen POSITIVE H Ur Barbiturates Screen Not Detected Ur Phencyclidine Scrn Not Detected Ur Amphetamines Screen Not Detected U Benzodiazepines Scrn Not Detected Urine Cocaine Screen Not Detected U Marijuana (THC) Screen POSITIVE H Ethyl Alcohol COVID-19 (JAMILA) COVID-19 Clin Com Hep Bs Antigen Hep Bs Antibody Hep B Core Total Ab Hepatitis C Ab (EIA) 04/18/22 04/18/22 04/18/22 01:32 02:38 05:58 MCV 84.3 MCH 27.3 MCHC 32.4 RDW 22.0 H Plt Count 343 MPV 10.4 Immature Gran % (Auto) 0.7 H Neut % (Auto) 86.2 H Lymph % (Auto) 3.6 L [place] % (Auto) 9.4 Eos % (Auto) 0.0 Baso % (Auto) 0.1 Lymph # (Auto) 0.6 L [place] # (Auto) 1.7 H Eos # (Auto) 0.0 Baso # (Auto) 0.0 Abs Immat Gran (auto) 0.13 H Absolute Neuts (auto) 15.3 H Absolute Nucleated RBC 0.000 Nucleated RBC % (auto) 0.0 Smear Tech's Comments VERIFIED VBG pH VBG pCO2 VBG pO2 VBG HCO3 VBG O2 Saturation VBG Base Excess Anion Gap Estim Creat Clear Calc Estimated GFR POC Glucose Random Glucose Lactic Acid Lactic Acid F/U @ 2Hr Lactic Acid F/U @ 4Hr 8.0 H* Calcium Magnesium Total Bilirubin AST ALT Alkaline Phosphatase Ammonia Troponin I High Sens Total Protein Albumin Urine Color Urine Appearance Urine pH Ur Specific [place] Urine Protein Urine Glucose (UA) Urine Ketones Urine Blood Urine Nitrite Ur Leukocyte Esterase Urine RBC Urine WBC Ur Squamous Epith Cells Urine Bacteria Hyaline Casts Granular Casts Urine Mucus Urine Opiates Screen Urine Fentanyl Screen Ur Barbiturates Screen Ur Phencyclidine Scrn Ur Amphetamines Screen U Benzodiazepines Scrn Urine Cocaine Screen U Marijuana (THC) Screen Ethyl Alcohol COVID-19 (JAMILA) COVID-19 Clin Com Hep Bs Antigen Negative Hep Bs Antibody REACTIVE Hep B Core Total Ab Nonreactive Hepatitis C Ab (EIA) Reactive H 04/18/22 04/18/22 05:58 12:00 MCV MCH MCHC RDW Plt Count MPV Immature Gran % (Auto) Neut % (Auto) Lymph % (Auto) [place] % (Auto) Eos % (Auto) Baso % (Auto) Lymph # (Auto) [place] # (Auto) Eos # (Auto) Baso # (Auto) Abs Immat Gran (auto) Absolute Neuts (auto) Absolute Nucleated RBC Nucleated RBC % (auto) Smear Tech's Comments VBG pH VBG pCO2 VBG pO2 VBG HCO3 VBG O2 Saturation VBG Base Excess Anion Gap 20 Estim Creat Clear Calc 68.3 Estimated GFR > 60 POC Glucose 226 H Random Glucose 249 H Lactic Acid Lactic Acid F/U @ 2Hr Lactic Acid F/U @ 4Hr Calcium 8.4 D Magnesium Total Bilirubin AST ALT Alkaline Phosphatase Ammonia Troponin I High Sens Total Protein Albumin Urine Color Urine Appearance Urine pH Ur Specific [place] Urine Protein Urine Glucose (UA) Urine Ketones Urine Blood Urine Nitrite Ur Leukocyte Esterase Urine RBC Urine WBC Ur Squamous Epith Cells Urine Bacteria Hyaline Casts Granular Casts Urine Mucus Urine Opiates Screen Urine Fentanyl Screen Ur Barbiturates Screen Ur Phencyclidine Scrn Ur Amphetamines Screen U Benzodiazepines Scrn Urine Cocaine Screen U Marijuana (THC) Screen Ethyl Alcohol COVID-19 (JAMILA) COVID-19 Clin Com Hep Bs Antigen Hep Bs Antibody Hep B Core Total Ab Hepatitis C Ab (EIA) Assessment and Plan (1) Encephalopathy: Status: Acute (2) Elevated lactic acid level: Status: Acute Plan 51-year-old male with past medical history as mentioned above who presents to the hospital with altered mental status found to have elevated lactic acid ? lactic acidosis: likely type 2 improved significantly with hydration last lactic acid is 5.2 will stop monitoring unless clinical situation changes. -? unclear etiology at this time -? since being in the ED patient has not had any hypoxia, no hypotension, patient afebrile, CT abdomen negative for any acute abnormality except for cholelithiasis(official report ), chest x-ray negative, UA shows no acute infection abd ct: IMPRESSION: 1. No acute intra-abdominal process identified. 2. Cholelithiasis. No gross pericholecystic inflammatory change or evidence of biliary ductal dilation. 3. Findings suggesting underlying hepatic fibrosis/cirrhosis, unchanged. 4. Small volume ascites and body wall edema/anasarca. 5. Persistent small right basilar pleural effusion. ultrasound of the abdomen?Numerous calculi and sludge fill the gallbladder lumen. Otherwise no abnormal gallbladder wall thickening or pericholecystic inflammatory changes. this abd us changes -unlikely to be the cause of his lactic acidosis on with IV fluids mild leucocytosis and no fevers broad-spectrum antibiotics until cultures negative - ? review of patient's medications shows that he was on multiple antibiotics including doxycycline as well as admit to an as well as fluconazole but unknown etiology and patient unable to give much history Id saw the patient - recommended to continue Zosyn until cultures are pending if does not improve -may need further workup. d/w nephro and Id - continue hydration and antibiotics unitl culture neg toxic /metbolic ? encephalopathy: multifactorial seems improving -? unclear etiology, UDS positive for fentanyl and marijuana, no evidence of acute infection except the lactic acidosis ct head neg,normal ammonia level mental status seems improving -? will treat with IV fluids If does not improve further may need MRI and workup. ? CHF -? not in acute exacerbation, hypoxic, no dyspnea, no chest x-ray showing any volume overload -? continue? Bumex, carvedilol, - patient also appears to be on furosemide per med review, will hold diabetes -? low-dose sliding scale insulin - ? diabetic diet ?DVT prophylaxis:? Heparin subQ inpatient need : toxic metabolic encephalopathy Quality Stroke Does the patient have a stroke diagnosis?: No VTE Prior VTE?: No VTE Risk Level:: Medical - moderate - high VTE Device Contraindication: Treatment Not Indicated VTE Drug Contraindication: N/A - Med Ordered
--- NOTE | 2022-04-18 16:02 | PC.NURSE ---
This RN attempted to go through MRI screening form. Pt refused to answer questions, would only open eyes to name. After talking with Dr. Foy and case management this RN will attempt to contact pts HCP. Health Care Proxy did not answer. After talking to Dr. Foy this RN will make another attempt to contact in 15 minutes.
[2022-04-18 16:24] LABS: Glucose, Whole Blood 196 mg/dL (60-115)
[2022-04-18 16:51] LABS: Lactic Acid 5.2 mmol/L (0.5-2.0)
[2022-04-18 17:13] LABS: Reflex Lactate? No addnl Lactic Acid
[2022-04-18] MEDS: Lactated Ringers 1,000 ML 80 ML IVCONT (17:32)
[2022-04-18] MEDS: 0.9 % Sodium Chloride Flush 3 ML SYRINGE IVFLUSH (17:32)
[2022-04-18 20:04] LABS: Glucose, Whole Blood 267 mg/dL (60-115)
[2022-04-18] MEDS: Insulin Lispro 100 UNIT/ML 3 ML VIAL SUBCUT (20:33)
[2022-04-18] MEDS: Insulin Glargine,Hum.rec.anlog 100 UNIT/ML 10 ML VIAL 12 UNIT SUBCUT (20:33)
[2022-04-18 20:48] LABS: Cancel Lactic Acid Canceled
[2022-04-19] VITALS (8 sets, daily range): BP systolic 96–118; BP diastolic 53–75; PULSE 61–74; RESP 17–18; TEMP 35.6–36.3; O2SAT 92–100
[2022-04-19] MEDS: Piperacillin Sodium/Tazobactam 3.375 GM in 0.9 % Sodium Chloride 50 ML IV ×4 (00:59→18:36)
[2022-04-19] MEDS: Heparin Sodium,Porcine 5,000 UNIT/ML VIAL 5000 UNIT SUBCUT ×2 (01:01→14:47)
--- NOTE | 2022-04-19 01:49 | PC.NURSE ---
0100 pt bladder scanned for [address]cathed for 900cc eugene colored urine.
[2022-04-19 06:21] LABS: Hemoglobin 17.7 g/dl (14.0-18.0); Mean Corpuscular HGB Conc 31.9 g/dl (31.0-36.0); Mean Corpuscular Hemoglobin 27.5 pg (27.0-33.0); Mean Corpuscular Volume 86.2 fL (80.0-98.0); Mean Platelet Volume 9.8 fL (9.4-12.4); NRBC Pct Auto 0.2 /100WBC (0.0-0.2); Platelet Count 267 X10*3/uL (160-400); Red Blood Count 6.44 X10*6/uL (4.60-5.80); Red Cell Distribution Width 23.2 % (11.0-16.0)
[2022-04-19 06:23] LABS: Hematocrit 55.5 % (42.0-52.0)
[2022-04-19] MEDS: Lactated Ringers 1,000 ML 80 ML IVCONT ×2 (06:32→19:48)
[2022-04-19 06:45] LABS: Alanine Aminotransferase 27 U/L (0-40); Albumin Level 2.6 g/dL (3.5-5.0); Alkaline Phosphatase 104 U/L (39-117); Anion Gap 20 (12-20); Aspartate Amino Transferase 37 U/L (5-37); Bilirubin Direct 1.2 mg/dL (0.0-0.5); Bilirubin Total 1.9 mg/dL (0.0-1.0); Blood Urea Nitrogen 27 mg/dL (9-16); Calcium 8.7 mg/dL (8.4-10.2); Carbon Dioxide 20 mmol/L (22-29); Chloride 100 mmol/L (96-108); Creatinine Clr Calc Pharmacy 70.1; Estimated Glomerular Filt Rate > 60; Glucose Random 148 mg/dL (60-115); Potassium 4.2 mmol/L (3.3-5.1); Sodium 136 mmol/L (135-145); Total Protein 6.1 g/dL (6.5-8.0)
[2022-04-19 07:34] LABS: Glucose, Whole Blood 114 mg/dL (60-115)
[2022-04-19] MEDS: Fluticasone/Vilanterol 200/25 BLST.W.DEV 1 PUFF INHALE (09:00)
[2022-04-19] MEDS: Loratadine 10 MG TABLET PO (09:04)
[2022-04-19] MEDS: Sacubitril/Valsartan 24/26 1 TAB TABLET PO ×2 (09:04→20:38)
[2022-04-19] MEDS: carvediloL 6.25 MG TABLET PO ×2 (09:04→20:38)
[2022-04-19] MEDS: Zinc Sulfate 220 MG CAPSULE PO (09:04)
[2022-04-19] MEDS: Aspirin Enteric Coated 81 MG TABLET.DR PO (09:04)
[2022-04-19] MEDS: Clopidogrel Bisulfate 75 MG TABLET PO (09:04)
[2022-04-19] MEDS: Famotidine 20 MG TABLET PO ×2 (09:04→20:38)
[2022-04-19] MEDS: Spironolactone 25 MG TABLET 12.5 MG PO (09:05)
[2022-04-19] MEDS: methADONE HCl 20 MG/2 ML ORAL.CONC 52 MG PO (09:05)
[2022-04-19] MEDS: ondansetron HCL 4 MG/2 ML VIAL IVPUSH (09:20)
--- NOTE | 2022-04-19 10:12 | PM.PNNEP ---
Subjective Subjective Date of Service: 04/20/22 Interval history: Events noted Physical Exam Vital Signs: Vital Signs: Last Vital Signs Temp 96.8 F 04/19/22 07:16 Pulse 64 04/19/22 09:02 Resp 18 04/19/22 09:02 BP 102/63 04/19/22 07:16 Pulse Ox 96 04/19/22 07:16 BMI result Body Mass Index 27.8 Const: General: no acute distress Resp: Effort & Inspection: normal respiratory effort Auscultation: clear to auscultation bilaterally Cardio: Rate: regular rate Rhythm: regular rhythm GI: Palpation (GI): Soft to palpation and nontender Auscultation: normal bowel sounds Skin: Other: multiple scab wounds throughout the body General skin exam: no rashes or lesions noted Extrem: Other: right below-knee amputation, 2+ pitting edema bilaterally left big toe wound that appears to be healed, no evidence of erythema tenderness warmth or edema. General: Yes normal to inspection Objective Data Labs CBC & Chem 7: 04/20/22 05:29 04/20/22 05:29 Labs: Laboratory Results - last 24 hr 04/18/22 04/18/22 04/18/22 12:00 15:53 16:14 WBC RBC Hgb Hct MCV MCH MCHC RDW Plt Count MPV Absolute Nucleated RBC Nucleated RBC % (auto) Sodium Potassium Chloride Carbon Dioxide Anion Gap BUN Creatinine Estim Creat Clear Calc Estimated GFR POC Glucose 226 H 196 H Random Glucose Lactic Acid 5.2 H* Calcium Total Bilirubin Direct Bilirubin AST ALT Alkaline Phosphatase Total Protein Albumin 04/18/22 04/19/22 04/19/22 19:52 05:53 05:53 WBC 16.0 H RBC 6.44 H Hgb 17.7 Hct 55.5 H MCV 86.2 MCH 27.5 MCHC 31.9 RDW 23.2 H Plt Count 267 MPV 9.8 Absolute Nucleated RBC 0.030 H Nucleated RBC % (auto) 0.2 Sodium 136 Potassium 4.2 Chloride 100 Carbon Dioxide 20 L Anion Gap 20 BUN 27 H Creatinine 1.16 Estim Creat Clear Calc 70.1 Estimated GFR > 60 POC Glucose 267 H Random Glucose 148 H D Lactic Acid Calcium 8.7 Total Bilirubin 1.9 H Direct Bilirubin 1.2 H AST 37 D ALT 27 Alkaline Phosphatase 104 D Total Protein 6.1 L Albumin 2.6 L 04/19/22 07:15 WBC RBC Hgb Hct MCV MCH MCHC RDW Plt Count MPV Absolute Nucleated RBC Nucleated RBC % (auto) Sodium Potassium Chloride Carbon Dioxide Anion Gap BUN Creatinine Estim Creat Clear Calc Estimated GFR POC Glucose 114 Random Glucose Lactic Acid Calcium Total Bilirubin Direct Bilirubin AST ALT Alkaline Phosphatase Total Protein Albumin Microbiology Microbiology Results: Microbiology 04/17/22 20:25 Blood - Venous Blood Culture - Preliminary No growth after 24 hours. 04/17/22 20:25 Blood - Venous Blood Culture - Preliminary No growth after 24 hours. Procedures Date of Service Date of Service: 04/19/22 Assessment & Plan Assessment and plan (1) Encephalopathy: Status: Acute (2) Elevated lactic acid level: Status: Acute Plan STELLA Due to hypoperfusion Creatinine is trending down Keep I > O Lactic acidosis Most likely due to Marijuana Recheck Lactate level ( was 8 on 04/18/22) Time Spent With Patient Time: Total time spent is greater than 50% in coordination of care (as documented) at patient's floor/unit and/or counseling patient: Progress Note: Quality Stroke Does the patient have a stroke diagnosis?: No
[2022-04-19 11:49] LABS: Glucose, Whole Blood 90 mg/dL (60-115)
--- NOTE | 2022-04-19 13:05 | MHC.CM.PN ---
Addendum entered by Reyna Campuzano 04/19/22 14:29: VAX X 2 MODERNA Original Note: IMM 04/19/22 Information for documentation was obtained from the EMR RN an some from the patient. He is very sleepy. Male 51 DX Lactic acidosis. He lives in congregate housing. He is active with [facility]. They provide medication management. He is on Methadone; which the [facility] provides. He has a friend in the building. She has been helping him with home making. A HCP is documented in the system. DP Home with resumption of services. VS STR. He will need assist with transport. He will need a PT eval. He has a LE amp. May not have a prosthesis. He did not respond to the question. T/W knows the Pt from prior admissions. Whe the patient is more alert, CM will verify info provided.
--- NOTE | 2022-04-19 15:02 | P.PNIM_ITS ---
Subjective Subjective Date of Service: 04/19/22 Interval History: continue need for straight catheterization; no other acute events Review of Systems denies chest pain Denies shortness of breath Denies nausea vomiting diarrhea Denies fever chills Physical Exam Vital Signs: Vital Signs: Last Vital Signs Temp 96.8 F 04/19/22 11:15 Pulse 62 04/19/22 11:15 Resp 18 04/19/22 11:15 BP 109/70 04/19/22 11:15 Pulse Ox 97 04/19/22 11:15 BMI result Body Mass Index 27.8 Const: Other: no acute issues Resp: Other: clear to auscultation bilaterally no rales rhonchi wh Cardio: Other: no S4; positive S1-S2; no S3 murmurs rubs or gallops GI: Other: soft nontender nondistended normoactive bowel sounds Extrem: Other: no edema bilaterally Objective Data Active Medications Acetaminophen (Acetaminophen 325 Mg Tablet) 650 mg PO Q6H PRN PRN Reason: Pain, Mild (Pain Scale 1-3) Albuterol Sulfate (Albuterol Sulfate 90 Mcg 8 Gm Inhaler) 2 puff INHALE Q4H PRN PRN Reason: dyspnea Aspirin (Aspirin Enteric Coated 81 Mg Tablet.) 81 mg PO DAILY [facility] Last Admin: 04/19/22 09:04 Dose: 81 mg Documented by: MAURY Atorvastatin Calcium (Atorvastatin Calcium 20 Mg Tablet) 20 mg PO BEDTIME [facility] Last Admin: 04/18/22 20:34 Dose: Not Given Documented by: MATTHEW Non-Admin Reason: Patient Refused Bumetanide (Bumetanide 1 Mg Tablet) 2 mg PO BID [facility]; Protocol Last Admin: 04/18/22 08:31 Dose: 2 mg Documented by: SUSY Carvedilol (Carvedilol 6.25 Mg Tablet) 6.25 mg PO BID [facility]; Protocol Last Admin: 04/19/22 09:04 Dose: 6.25 mg Documented by: MAURY Clopidogrel Bisulfate (Clopidogrel Bisulfate 75 Mg Tablet) 75 mg PO DAILY [facility] Last Admin: 04/19/22 09:04 Dose: 75 mg Documented by: MAURY Dextrose (Dextrose 50 % 25 Gm/50 Ml Syringe) 25 gm IVPUSH Q15M PRN; Protocol PRN Reason: per Hypoglycemia Standing Ord. Famotidine (Famotidine 20 Mg Tablet) 20 mg PO BID [facility] Last Admin: 04/19/22 09:04 Dose: 20 mg Documented by: MAURY Fluticasone Propionate (Fluticasone Propionate Nasal 16 Gm [place]) 2 spray NOSTRIL-B DAILY PRN PRN Reason: Allergy Symptoms Fluticasone/Vilanterol (Fluticasone/Vilanterol 200/25 Blst.W.Dev) 1 puff INHALE RDAILY [facility] Last Admin: 04/19/22 09:00 Dose: 1 puff Documented by: RICKEY Gabapentin (Gabapentin 100 Mg Capsule) 200 mg PO TID [facility] Last Admin: 04/18/22 16:02 Dose: Not Given Documented by: CHRISTINE Non-Admin Reason: Physician Held Med Glucose (Glucose Gel 15 Gm Gel..Gram.) 15 gm PO Q15M PRN; Protocol PRN Reason: per Hypoglycemia Standing Ord. Heparin Sodium (Porcine) (Heparin Sodium,Porcine 5,000 Unit/Ml Vial) 5,000 unit SUBCUT Q12H [facility] Last Admin: 04/19/22 14:47 Dose: 5,000 unit Documented by: MAURY Lactated Ringer's (Lr) 1,000 mls @ 80 mls/hr IVCONT .[id number] [facility] Last Admin: 04/19/22 06:32 Dose: 80 mls/hr Documented by: MATTHEW Piperacillin Sod/Tazobactam (Sod 3.375 gm/ Sodium Chloride) 50 mls @ 100 mls/hr IV Q6H [facility] Last Infusion: 04/19/22 13:54 Dose: 0 mls/hr Documented by: MAURY Insulin Glargine (Insulin Glargine,Hum.Rec.Anlog 100 Unit/Ml 10 Ml Vial) 12 unit SUBCUT BEDTIME [facility] Last Admin: 04/18/22 20:33 Dose: 12 unit Documented by: MATTHEW Insulin Human Lispro (Insulin Lispro 100 Unit/Ml 3 Ml Vial) 5 unit SUBCUT TIDAC [facility] Last Admin: 04/19/22 12:00 Dose: Not Given Documented by: MAURY Non-Admin Reason: nursing judgement Insulin Human Lispro (Insulin Lispro 100 Unit/Ml 3 Ml Vial) 0 unit SUBCUT QIDACHS [facility]; Protocol Last Admin: 04/19/22 12:00 Dose: Not Given Documented by: MAURY Non-Admin Reason: No Insulin Coverage Lidocaine (Lidocaine 4 % Patch Adh..Patch) 1 patch TRANSDERMA DAILY [facility] Last Admin: 04/19/22 09:05 Dose: Not Given Documented by: MAURY Non-Admin Reason: Patient Refused Loratadine (Loratadine 10 Mg Tablet) 10 mg PO DAILY [facility] Last Admin: 04/19/22 09:04 Dose: 10 mg Documented by: MAURY Methadone HCl (Methadone Hcl 20 Mg/2 Ml Oral.Conc) 52 mg PO DAILY [facility] Last Admin: 04/19/22 09:05 Dose: 52 mg Documented by: MAURY Montelukast Sodium (Montelukast Sodium 10 Mg Tablet) 10 mg PO BEDTIME [facility] Last Admin: 04/18/22 20:34 Dose: Not Given Documented by: MATTHEW Non-Admin Reason: Patient Refused Ondansetron HCl (Ondansetron Hcl 4 Mg/2 Ml Vial) 4 mg IVPUSH Q8H PRN PRN Reason: Nausea and Vomiting Last Admin: 04/19/22 09:20 Dose: 4 mg Documented by: MAURY Sacubitril/Valsartan (Sacubitril/Valsartan 1 Tab Tablet) 1 tab PO BID [facility]; Protocol Last Admin: 04/19/22 09:04 Dose: 1 tab Documented by: MAURY Sodium Chloride (0.9 % Sodium Chloride Flush 3 Ml Syringe) 3 ml IVFLUSH QSHIFT [facility] Last Admin: 04/19/22 07:48 Dose: Not Given Documented by: MARGIE Non-Admin Reason: IV Running Spironolactone (Spironolactone 25 Mg Tablet) 12.5 mg PO DAILY [facility]; Protocol Last Admin: 04/19/22 09:05 Dose: 12.5 mg Documented by: MAURY Tamsulosin HCl (Tamsulosin Hcl 0.4 Mg Capsule) 0.4 mg PO BEDTIME [facility] Last Admin: 04/18/22 20:35 Dose: Not Given Documented by: MATTHEW Non-Admin Reason: Patient Refused Zinc Sulfate (Zinc Sulfate 220 Mg Capsule) 220 mg PO DAILY [facility] Last Admin: 06/07/22 09:04 Dose: 220 mg Documented by: MAURY Labs CBC & Chem 7: 04/19/22 05:53 04/19/22 05:53 Labs: Laboratory Results - last 24 hr 04/18/22 04/18/22 04/18/22 15:53 16:14 19:52 MCV MCH MCHC RDW Plt Count MPV Absolute Nucleated RBC Nucleated RBC % (auto) Anion Gap Estim Creat Clear Calc Estimated GFR POC Glucose 196 H 267 H Random Glucose Lactic Acid 5.2 H* Calcium Total Bilirubin Direct Bilirubin AST ALT Alkaline Phosphatase Total Protein Albumin 04/19/22 04/19/22 04/19/22 05:53 05:53 07:15 MCV 86.2 MCH 27.5 MCHC 31.9 RDW 23.2 H Plt Count 267 MPV 9.8 Absolute Nucleated RBC 0.030 H Nucleated RBC % (auto) 0.2 Anion Gap 20 Estim Creat Clear Calc 70.1 Estimated GFR > 60 POC Glucose 114 Random Glucose 148 H D Lactic Acid Calcium 8.7 Total Bilirubin 1.9 H Direct Bilirubin 1.2 H AST 37 D ALT 27 Alkaline Phosphatase 104 D Total Protein 6.1 L Albumin 2.6 L 04/19/22 11:13 MCV MCH MCHC RDW Plt Count MPV Absolute Nucleated RBC Nucleated RBC % (auto) Anion Gap Estim Creat Clear Calc Estimated GFR POC Glucose 90 Random Glucose Lactic Acid Calcium Total Bilirubin Direct Bilirubin AST ALT Alkaline Phosphatase Total Protein Albumin Microbiology Microbiology Results: Microbiology 04/17/22 20:25 Blood Culture - Preliminary Blood - Venous No growth after 24 hours. 04/17/22 20:25 Blood Culture - Preliminary Blood - Venous No growth after 24 hours. Assessment and Plan (1) Elevated lactic acid level: Status: Acute (2) Encephalopathy: Status: Acute (3) CHF (congestive heart failure): Status: Acute (4) Diabetes mellitus, type 2: Status: Acute Plan 51-year-old male with past medical history of bipolar disorder, CHF, diabetes, hyperlipidemia, ischemic cardiomyopathy, history of osteomyelitis, PVD, presents to the hospital with concerns for altered mental status for via EMS.?UTox positive for cannabinoids and fentanyl. 1.Lactic acidosis: -Likely secondary to cannabus - Recheck in a.m. - continue IV fluids - broad-spectrum antibiotics until cultures negative 2.Toxic /metbolic encephalopathy: - back to baseline - given U tox; likely multifactorial continue to monitor ? 3. Chronic Systolic CHF - continue? Bumex, carvedilol,entresto,aldactoner - follow renal/divalents 4.Diabetes II -Lispro correctional scale -diabetic diet -adjust as clinically indicated 5.Urinary retention - multiple straight caths for PVR greater than 350 - indwelling Alberts; will book outpatient follow-up with Urology ?DVT prophylaxis:? Heparin subQ Requires inpatient hospitalization for volume repletion to correct type to lactic acidosis Quality Stroke Does the patient have a stroke diagnosis?: No VTE Prior VTE?: No VTE Risk Level:: Medical - moderate - high VTE Device Contraindication: Treatment Not Indicated VTE Drug Contraindication: N/A - Med Ordered
--- NOTE | 2022-04-19 15:39 | MHC.RECOVRN ---
Attempted to meet with pt in 368 after consult placed to Addiction Medicine for positive tox screen. Pt in bed, asleep, awakes to voice for just a moment and falls back to sleep. Discussed with pts RN who reports this is a familiar presentation and is able to engage once here for a couple days. Discussed with Yin Pacheco APRN. Will continue to follow and attempt to meet tomorrow.
[2022-04-19 16:19] LABS: Glucose, Whole Blood 78 mg/dL (60-115)
[2022-04-19 20:15] LABS: Glucose, Whole Blood 89 mg/dL (60-115)
--- NOTE | 2022-04-19 20:36 | PC.NURSE ---
P BS 89,patientrefused dinner earlier,refusing snack I Dr. Mccullough notified,will hold Lantus [employer] [facility] will monitor
[2022-04-19] MEDS: Montelukast Sodium 10 MG TABLET PO (20:37)
[2022-04-19] MEDS: Atorvastatin Calcium 20 MG TABLET PO (20:38)
[2022-04-19] MEDS: Tamsulosin HCL 0.4 MG CAPSULE PO (20:38)
[2022-04-20] MEDS: Piperacillin Sodium/Tazobactam 3.375 GM in 0.9 % Sodium Chloride 50 ML IV ×2 (01:50→06:53)
[2022-04-20] MEDS: Heparin Sodium,Porcine 5,000 UNIT/ML VIAL 5000 UNIT SUBCUT (01:51)
[2022-04-20 03:28] VITALS: BP 127/60; PULSE 74; RESP 17; TEMP 36.4; O2SAT 98
[2022-04-20 03:46] LABS: Hepatitis A Antibody IgM 0.53 Index (0-0.79); ~Hepatitis A Antibody IgM Nonreactive (Nonreactive)
[2022-04-20 06:33] LABS: MANUAL DIFF FLAG NO
[2022-04-20 06:50] LABS: Basophils Percent Auto 0.3 % (0-2); Eosinophils Absolute Auto 0.1 X10*3/uL (0.0-0.4); Eosinophils Percent Auto 1.5 % (0-4); Hematocrit 45.9 % (42.0-52.0); Hemoglobin 14.5 g/dl (14.0-18.0); Imm Gran Abs Auto 0.02 X10*3/uL (0.00-0.03); Imm Gran Pct Auto 0.3 % (0.0-0.4); Lymphocytes Absolute Auto 1.1 X10*3/uL (1.2-4.9); Lymphocytes Percent Auto 16.2 % (20-40); Mean Corpuscular HGB Conc 31.6 g/dl (31.0-36.0); Mean Corpuscular Hemoglobin 27.2 pg (27.0-33.0); Mean Platelet Volume 9.8 fL (9.4-12.4); Monocytes Absolute Auto 1.1 X10*3/uL (0.1-1.2); Monocytes Percent Auto 17.2 % (2-11); NRBC Pct Auto 0.3 /100WBC (0.0-0.2); Neutrophils Absolute Auto 4.2 x10*3/uL (2.0-8.3); Neutrophils Percent Auto 64.5 % (45-73); Red Blood Count 5.34 X10*6/uL (4.60-5.80); Red Cell Distribution Width 22.3 % (11.0-16.0); White Blood Count 6.5 X10*3/uL (4.8-10.8)
[2022-04-20 07:31] LABS: Alanine Aminotransferase 18 U/L (0-40); Albumin Level 2.3 g/dL (3.5-5.0); Alkaline Phosphatase 73 U/L (39-117); Anion Gap 13 (12-20); Aspartate Amino Transferase 28 U/L (5-37); Bilirubin Total 1.5 mg/dL (0.0-1.0); Blood Urea Nitrogen 20 mg/dL (9-16); Calcium 8.1 mg/dL (8.4-10.2); Carbon Dioxide 29 mmol/L (22-29); Chloride 99 mmol/L (96-108); Creatinine Clr Calc Pharmacy 84.7; Estimated Glomerular Filt Rate > 60; Glucose Fasting 42 mg/dL (60-99); Potassium 3.2 mmol/L (3.3-5.1); Sodium 138 mmol/L (135-145); Total Protein 4.8 g/dL (6.5-8.0)
--- NOTE | 2022-04-20 08:10 | PC.NURSE ---
blood glucose by lab this morning 42. patient had 8 oz of orange juice appears asymptomatic. refused to have it rechecked, notified.
[2022-04-20 08:52] LABS: Platelet Count 161 X10*3/uL (160-400)
[2022-04-20] MEDS: Fluticasone/Vilanterol 200/25 BLST.W.DEV 1 PUFF INHALE (08:54)
[2022-04-20 08:55] VITALS: PULSE 77; RESP 20; O2SAT 96
--- NOTE | 2022-04-20 10:10 | PM.PNNEP ---
Subjective Subjective Date of Service: 04/27/22 Interval history: Events noted PVR noted Physical Exam Vital Signs: Vital Signs: Last Vital Signs Temp 97.5 F 04/20/22 03:28 Pulse 77 04/20/22 08:55 Resp 20 04/20/22 08:55 BP 127/60 04/20/22 03:28 Pulse Ox 98 04/20/22 03:28 O2 Del Method 04/20/22 03:28 BMI result Body Mass Index 27.8 Const: General: no acute distress Resp: Effort & Inspection: normal respiratory effort Auscultation: clear to auscultation bilaterally Cardio: Rate: regular rate Rhythm: regular rhythm GI: Palpation (GI): Soft to palpation and nontender Auscultation: normal bowel sounds Skin: Other: multiple scab wounds throughout the body General skin exam: no rashes or lesions noted Extrem: Other: right below-knee amputation, 2+ pitting edema bilaterally left big toe wound that appears to be healed, no evidence of erythema tenderness warmth or edema. General: Yes normal to inspection Objective Data Labs CBC & Chem 7: 04/20/22 05:29 04/20/22 05:29 Labs: Laboratory Results - last 24 hr 04/18/22 04/19/22 04/19/22 02:38 11:13 15:45 WBC RBC Hgb Hct MCV MCH MCHC RDW Plt Count MPV Immature Gran % (Auto) Neut % (Auto) Lymph % (Auto) [place] % (Auto) Eos % (Auto) Baso % (Auto) Lymph # (Auto) [place] # (Auto) Eos # (Auto) Baso # (Auto) Abs Immat Gran (auto) Absolute Neuts (auto) Absolute Nucleated RBC Nucleated RBC % (auto) Sodium Potassium Chloride Carbon Dioxide Anion Gap BUN Creatinine Estim Creat Clear Calc Estimated GFR POC Glucose 90 78 Fasting Glucose Calcium Total Bilirubin AST ALT Alkaline Phosphatase Total Protein Albumin Hepatitis A IgM Ab Nonreactive 04/19/22 04/20/22 04/20/22 19:44 05:29 05:29 WBC 6.5 RBC 5.34 Hgb 14.5 Hct 45.9 MCV 86.0 MCH 27.2 MCHC 31.6 RDW 22.3 H Plt Count 161 D MPV 9.8 Immature Gran % (Auto) 0.3 Neut % (Auto) 64.5 Lymph % (Auto) 16.[address] [place] % (Auto) 17.2 H Eos % (Auto) 1.5 Baso % (Auto) 0.3 Lymph # (Auto) 1.[address] [place] # (Auto) 1.1 Eos # (Auto) 0.1 Baso # (Auto) 0.0 Abs Immat Gran (auto) 0.02 Absolute Neuts (auto) 4.2 Absolute Nucleated RBC 0.020 H Nucleated RBC % (auto) 0.3 H Sodium 138 Potassium 3.2 L D Chloride 99 Carbon Dioxide 29 Anion Gap 13 BUN 20 H Creatinine 0.96 Estim Creat Clear Calc 84.7 Estimated GFR > 60 POC Glucose 89 Fasting Glucose 42 L* Calcium 8.1 L D Total Bilirubin 1.5 H AST 28 ALT 18 Alkaline Phosphatase 73 D Total Protein 4.8 L D Albumin 2.3 L Hepatitis A IgM Ab Microbiology Microbiology Results: Microbiology 04/17/22 20:25 Blood - Venous Blood Culture - Preliminary No growth after 48 hours. 04/17/22 20:25 Blood - Venous Blood Culture - Preliminary No growth after 48 hours. Procedures Date of Service Date of Service: 04/20/22 Assessment & Plan Assessment and plan (1) Encephalopathy: Status: Acute (2) Elevated lactic acid level: Status: Acute Plan STELLA Due to hypoperfusion Creatinine is trending down Keep I > O Lactic acidosis Most likely due to Marijuana Urinary retention Aristeo DURHAM follow up ( as out pt) Time Spent With Patient Time: Total time spent is greater than 50% in coordination of care (as documented) at patient's floor/unit and/or counseling patient: Progress Note: Quality Stroke Does the patient have a stroke diagnosis?: No
[2022-04-20 10:38] VITALS: BP 120/69; PULSE 73; RESP 18; TEMP 36.4; O2SAT 99
[2022-04-20] MEDS: Sacubitril/Valsartan 24/26 1 TAB TABLET PO (10:45)
[2022-04-20] MEDS: Zinc Sulfate 220 MG CAPSULE PO (10:45)
[2022-04-20] MEDS: Loratadine 10 MG TABLET PO (10:46)
[2022-04-20] MEDS: carvediloL 6.25 MG TABLET PO (10:46)
[2022-04-20] MEDS: Famotidine 20 MG TABLET PO (10:46)
[2022-04-20] MEDS: Spironolactone 25 MG TABLET 12.5 MG PO (10:46)
[2022-04-20] MEDS: Clopidogrel Bisulfate 75 MG TABLET PO (10:46)
[2022-04-20] MEDS: Aspirin Enteric Coated 81 MG TABLET.DR PO (10:46)
[2022-04-20] MEDS: methADONE HCl 20 MG/2 ML ORAL.CONC 52 MG PO (10:47)
[2022-04-20 10:54] VITALS: BP 120/69; PULSE 73; RESP 18; TEMP 36.4; O2SAT 99
[2022-04-20 10:58] VITALS: BP 120/69; PULSE 73; RESP 18; TEMP 36.4; O2SAT 99
[2022-04-20 10:58] LABS: Glucose, Whole Blood 85 mg/dL (60-115)
--- NOTE | 2022-04-20 11:44 | MHC.RECOVRN ---
Attempted to meet with pt in 368, pt denies ability to speak in [place]. Pt has spoken to many staff since arriving on 04/17 in [place]. RN and Yin Pacheco APRN, aware.
--- NOTE | 2022-04-20 12:59 | P.DS_ITS ---
DS: Providers Provider Date of Service: 04/20/22 Date of admission: 04/18/22 01:46 Date of discharge: 04/20/22 Primary care physician: Ashley Pendleton MD Consults: 04/18/22 09:00 Addiction Medicine Routine Consulting Provider: Yin Pacheco Reason for consultation: encephalopathy -utox positive for fentnyl,also on methadone Consult to Infectious Diseases Routine Consulting Provider: Zully Roblero Reason for consultation: leucocytosis/encephalopathy Has provider been notified: No Consult to Nephrology Routine Consulting Provider: Luis Rainey Reason for consultation: lactic acidosis unclear etiology Has provider been notified: No DS: Diagnosis Discharge Diagnosis (1) Encephalopathy: Status: Acute (2) Elevated lactic acid level: Status: Acute (3) Urinary retention: Status: Acute DS: Summary Hospital Course Hospital Course: 51-year-old male with past medical history of bipolar disorder, CHF, diabetes, hyperlipidemia, ischemic cardiomyopathy, history of osteomyelitis, PVD, presents to the hospital with concerns for altered mental status for via EMS.? History is obtained mostly from EMR as patient is ? Not give much history and is not cooperating does not respond to questions about review of systems, has not given much history of the events that brought him to the hospital. According to EMS patient's landlord was not able to communicate with patient for over 24 hours, they were concerned, when landlord was finally able to get in contact with patient today he told EMS that patient was ?unresponsive ?. ? On arrival to the ED patient found to have a temp of 96.4 degrees, heart rate of 112, respiratory rate of 17, otherwise unremarkable Labs? on arrival were significant for WBC count 9.6, pH of 7.4, BUN of 18, creatinine of 1.2 low, lactic acid of 10, total bili of 2.3, AST of 62, ALT of 36, alk-phos of 141, troponin normal, albumin of 3.2, UA negative for any acute infection, UDS positive? fentanyl as well as marijuana CT pelvic abdomen showed? no acute intra-abdominal process, cholelithiasis with no gross pericholecystic inflammatory change or evidence of biliary ductal dilatation.? Findings suggestive of underlying hepatic fibrosis / cirrhosis, small volume ascites and body wall edema.? Hospital Course admitted given IV fluids and supportive therapies. Seen in consultation by Nephrology who felt lactate elevation was secondary to chronic marijuana use. Within 24 hours his mental status returned to baseline and he was interacting normally. It was noticed on multiple occasions that he had postvoid residual that was greater than 350; indwelling Alberts was placed. Case discussed with Urology who states they will follow up as an outpatient with a voiding trial. At this point time, patient was offered short-term rehab but declined. He will be discharged to home to resume his previous services and follow up with Urology as an outpatient Time Spent with Patient Time attestation: Total time spent providing and/or coordinating discharge services: Discharge coordination time: Greater than 30 minutes Quality: Safe Use of Opioids Does Pt have an Active Cancer Diagnosis on the Problem List?: No Quality: Stroke Does the patient have a stroke diagnosis?: No Physical Exam Vital Signs: Vital Signs: Last Vital Signs Temp 97.6 F 04/20/22 10:58 Pulse 73 04/20/22 10:58 Resp 18 04/20/22 10:58 BP 120/69 04/20/22 10:58 Pulse Ox 99 04/20/22 10:58 O2 Del Method 04/20/22 10:58 BMI result Body Mass Index 27.8 Const: Other: no acute issues Resp: Other: clear to auscultation bilaterally no rales rhonchi wh Cardio: Other: no S4; positive S1-S2; no S3 murmurs rubs or gallops GI: Other: soft nontender nondistended normoactive bowel sounds Extrem: Other: no edema bilaterally DS: Data Data Completed and Pending Completed studies during hospitalization [Text1]: Procedures Dilation of Left Anterior Tibial Artery using Drug-Coated Balloon, Percutaneous Approach (11/24/20) Dilation of Left Peroneal Artery using Drug-Coated Balloon, Percutaneous Approach (11/24/20) Dilation of Left Peroneal Artery, Percutaneous Approach (12/30/21) Dilation of Left Popliteal Artery using Drug-Coated Balloon, Percutaneous Approach (11/24/20) Drainage of Chest Wall, Percutaneous Approach, Diagnostic (11/24/20) Drainage of Right Pleural Cavity, Percutaneous Approach (08/31/20) Excision of Left Foot Subcutaneous Tissue and Fascia, Open Approach (02/12/21) Excision of Left Metatarsal, Open Approach (12/30/21) Insertion of Infusion Device into Left External Jugular Vein, Percutaneous Approach (03/08/22) Insertion of Infusion Device into Superior Vena Cava, Percutaneous Approach (02/12/21) Transfusion of Nonautologous Red Blood Cells into Peripheral Vein, Percutaneous Approach (01/02/21) Ultrasonography of Superior Vena Cava, Guidance (02/12/21) Labs on day of discharge: Laboratory Results - last 24 hr 04/18/22 04/19/22 04/19/22 02:38 15:45 19:44 WBC RBC Hgb Hct MCV MCH MCHC RDW Plt Count MPV Immature Gran % (Auto) Neut % (Auto) Lymph % (Auto) [place] % (Auto) Eos % (Auto) Baso % (Auto) Lymph # (Auto) [place] # (Auto) Eos # (Auto) Baso # (Auto) Abs Immat Gran (auto) Absolute Neuts (auto) Absolute Nucleated RBC Nucleated RBC % (auto) Sodium Potassium Chloride Carbon Dioxide Anion Gap BUN Creatinine Estim Creat Clear Calc Estimated GFR POC Glucose 78 89 Fasting Glucose Calcium Total Bilirubin AST ALT Alkaline Phosphatase Total Protein Albumin Hepatitis A IgM Ab Nonreactive 04/20/22 04/20/22 04/20/22 05:29 05:29 10:52 WBC 6.5 RBC 5.34 Hgb 14.5 Hct 45.9 MCV 86.0 MCH 27.2 MCHC 31.6 RDW 22.3 H Plt Count 161 D MPV 9.8 Immature Gran % (Auto) 0.3 Neut % (Auto) 64.5 Lymph % (Auto) 16.2 L [place] % (Auto) 17.2 H Eos % (Auto) 1.5 Baso % (Auto) 0.3 Lymph # (Auto) 1.1 L [place] # (Auto) 1.1 Eos # (Auto) 0.1 Baso # (Auto) 0.0 Abs Immat Gran (auto) 0.02 Absolute Neuts (auto) 4.2 Absolute Nucleated RBC 0.020 H Nucleated RBC % (auto) 0.3 H Sodium 138 Potassium 3.2 L D Chloride 99 Carbon Dioxide 29 Anion Gap 13 BUN 20 H Creatinine 0.96 Estim Creat Clear Calc 84.7 Estimated GFR > 60 POC Glucose 85 Fasting Glucose 42 L* Calcium 8.1 L D Total Bilirubin 1.5 H AST 28 ALT 18 Alkaline Phosphatase 73 D Total Protein 4.8 L D Albumin 2.3 L Hepatitis A IgM Ab Preliminary micro results at discharge 04/17/22 20:25 Blood Culture - Preliminary Blood - Venous No growth after 48 hours. 04/17/22 20:25 Blood Culture - Preliminary Blood - Venous No growth after 48 hours. Discharge Plan Discharge Patient Disposition: Home Health Service Discharge Diagnosis: lactic acidosis Referrals: Ashley Pendleton MD [Primary Care Provider] - 1 Week Discharge Medications: Continued bumetanide 2 mg Tablet 2 mg PO BID Entresto 24-26 mg tablet 1 tab PO BID furosemide 40 mg tablet 1 tab PO DAILY carvedilol 6.25 mg tablet 1 tab PO BID atorvastatin 20 mg tablet 1 tab PO BEDTIME cetirizine 10 mg tablet 1 tab PO QAM clopidogrel 75 mg tablet 1 tab PO QAM aspirin 81 mg tablet,delayed release (DR/EC) 1 tab PO QAM spironolactone 25 mg tablet 0.5 tab PO QAM famotidine 20 mg tablet 1 tab PO BID tamsulosin 0.4 mg capsule 1 cap PO QPM lidocaine [Lidoderm] 5 % adhesive patch,medicated 1 patch topical DAILY fluticasone propion-salmeterol [Advair Diskus] 500-50 mcg/dose blister with device 1 puff PO BID montelukast 10 mg tablet 1 tab PO QPM gabapentin 100 mg capsule 2 cap PO TID albuterol sulfate [ProAir HFA] 90 mcg/actuation HFA aerosol inhaler 2 puff inhalation Q4-6H PRN (Reason: dyspnea) fluticasone propionate 50 mcg/actuation spray,suspension 1 - 2 spray intranasal DAILY PRN (Reason: Allergy Symptoms) zinc sulfate 50 mg zinc (220 mg) capsule 1 cap PO DAILY Lantus Solostar U-100 Insulin 100 unit/mL (3 mL) insulin pen 12 unit subcut BEDTIME insulin aspart U-100 [Novolog Flexpen U-100 Insulin] 100 unit/mL (3 mL) Insulin Pen 5 unit SUBCUT TID methadone 10 mg/mL Concentrate 52 mg PO DAILY Discharge Orders: Discharge Order (Routine); Ordered 04/20/22 Ordered By: Wilfred Dueñas Diet: advance to usual diet Activity on Discharge: As tolerated Stand Alone Forms: Patient Portal Discharge page Care Plan Goals: keep Alberts in place. [facility] will assist with treatment. Follow-up with Dr. Donovan 2 weeks for removal Health Concerns: continue all medicines as before hospital Plan of Treatment: maintain highest level of function Assessment: see discharge summary
--- NOTE | 2022-04-20 14:12 | MHC.CM.PN ---
PATIENT TO RETURN HOME WITH RESUMPTION OF [facility]. [facility] REQUESTED FOR 1700. RN AWARE OF PLAN.
[2022-04-20 15:30] LABS: Glucose, Whole Blood 66 mg/dL (60-115)
--- NOTE | 2022-04-20 16:45 | PC.NURSE ---
poc 66,repeat 67 ,patient is asymptomatic.refusing to have orange juice or other snacks.
[2022-04-20 16:46] LABS: Glucose, Whole Blood 67 mg/dL (60-115)
== END 2022-04-20 17:24 | disposition home health service (06) | DRG 425 ==
LOC: HO.ED 04-18 00:06 → HO.EDOVER 04-18 01:55 → HO.S3 04-18 11:19
PROVIDERS: Internal Medicine; Physician Assistant; Admitting Provider Internal Medicine; Emergency Provider Internal Medicine; PCP Family Medicine; Visit Provider Hospitalist
DX: E87.2 Acidosis (principal); G92.8 Other toxic encephalopathy; N17.9 Acute kidney failure, unspecified; K72.90 Hepatic failure, unspecified without coma; E11.42 Type 2 diabetes mellitus with diabetic polyneuropathy; E11.51 Type 2 diabetes mellitus with diabetic peripheral angiopathy without gangrene; F11.20 Opioid dependence, uncomplicated; E78.5 Hyperlipidemia, unspecified; F31.9 Bipolar disorder, unspecified; K74.60 Unspecified cirrhosis of liver; Z20.822 Contact with and (suspected) exposure to COVID-19; I25.5 Ischemic cardiomyopathy; I50.22 Chronic systolic (congestive) heart failure; N40.1 Benign prostatic hyperplasia with lower urinary tract symptoms; F12.90 Cannabis use, unspecified, uncomplicated; R33.8 Other retention of urine; Z89.511 Acquired absence of right leg below knee; Z88.2 Allergy status to sulfonamides; Z88.8 Allergy status to other drugs, medicaments and biological substances; Z79.4 Long term (current) use of insulin; Z79.51 Long term (current) use of inhaled steroids; Z79.01 Long term (current) use of anticoagulants; Z79.82 Long term (current) use of aspirin; Z79.899 Other long term (current) drug therapy
CPT/HCPCS: 36415; 70450; 71045; 74176; 76705; 80048; 80053; 80076; 80307; 81001; 81003; 82077; 82140; 82803; 82947; 83605; 83735; 84484; 85025; 85027; 86704; 86706; 86709; 86803; 87040; 87340; 87635; 93005; 96361; 96365; 99285; C1758; J2405; J2543

== ENCOUNTER 2022-04-22 12:28 | Inpatient (IN) | payer MEDICAID, SELFPAY ==
--- NOTE | ~2022-04-22 | XR_ITS ---
EXAMINATION: XR CHEST CLINICAL INFORMATION: Central line placement COMPARISON: Chest radiograph earlier today at 5:15 PM TECHNIQUE: Frontal view of the chest was obtained. FINDINGS: Compared with the study of under 2 hours ago, no significant interval change is seen. Once again noted is a right IJ catheter with its tip in the SVC. There is cardiomegaly and mild interstitial prominence consistent with pulmonary vascular congestion XR/XR chest 1V IMPRESSION: No interval change when compared to the study from earlier this evening. Cardiomegaly and mild CHF.
--- NOTE | ~2022-04-22 | XR_ITS ---
EXAMINATION: XR FOOT, LEFT CLINICAL INFORMATION: Evaluate for osteomyelitis COMPARISON: 03/08/2022 TECHNIQUE: AP, lateral, and oblique views of the left foot. FINDINGS: Once again destruction of the distal first digit. This involves the distal phalanx as well at the proximal phalanx with bony fragments in the region. Difficult to evaluate for increase when compared to the most recent previous studies. No other evidence for bony erosion in the remainder the exam. Vascular calcifications are noted. XR/XR foot LT min 3V IMPRESSION: Bony destruction of the distal first digit highly consistent with osteomyelitis.
--- NOTE | ~2022-04-22 | XR_ITS ---
EXAMINATION: XR CHEST CLINICAL INFORMATION: Central line placement COMPARISON: April 18, 2022 TECHNIQUE: AP portable view of the chest was obtained. FINDINGS: Right internal jugular central venous catheter is seen with its tip in the region of the distal superior vena cava. No pneumothorax identified. No pleural effusion is seen. The cardiopericardial silhouette is enlarged. There is again noted to be some interstitial prominence similar to previous study without confluent parenchymal disease identified. XR/XR chest 1V IMPRESSION: Right internal jugular central venous catheter in place without pneumothorax. Cardiomegaly with mild interstitial prominence consistent with some degree of pulmonary vascular congestion similar to study of April 18, 2022
--- NOTE | ~2022-04-22 | US_ITS ---
EXAMINATION: NONINVASIVE ASSESSMENT OF THE ARTERIES OF BOTH LOWER EXTREMITIES WITH PVR EXAM AND BILATERAL LOWER EXTREMITY DUPLEX Kailash Adams MD CLINICAL INFORMATION: Nonhealing ulcer TECHNIQUE: Ankle pulse volume recordings, ankle pressure measurements and ankle brachial indices were obtained of the lower extremity arterial system bilaterally in addition to duplex Doppler techniques with wave form analysis and measurement of velocities in the common femoral, profunda femoral, superficial femoral, popliteal and tibial arteries. The study was performed only at rest. COMPARISON: None FINDINGS: AT REST: Right Le. The right ankle-brachial index was not measured as pt s/p BKA 2. Right ankle pressure: Not applicable 3. Right ankle PVR waveform: Not applicable 4. Right direct duplex Doppler findings: Common Femoral: 124 triphasic Profunda Femoris: 83 triphasic Proximal SFA: 61 triphasic Mid SFA: 19 biphasic Distal SFA: 58 biphasic Popliteal: 19 Left Le. The left ankle-brachial index is: 0.76 * >0.97-1.25 = normal - no significant arterial disease * 0.75-0.96 = mild peripheral arterial disease * 0.5-0.74 = moderate peripheral arterial disease * <0.50 = severe peripheral arterial disease 2. Left ankle pressure: Decreased consistent with mild PVD 3. Left ankle PVR waveform: normal. 4. Left direct duplex Doppler findings: Common Femoral: 85 biphasic Profunda Femoris: 76 monophasic Proximal SFA: 71 monophasic Mid SFA: 43 monophasic Distal SFA: 94 monophasic Popliteal: 82 monophasic Tibial: 59 monophasic Peroneal: 46 Monophasic US/US arterial duplex LE BI IMPRESSION: 1. Status post right leg below-knee amputation with multiphasic flow present throughout the remainder of the lower extremity 2. On the left, VANCE demonstrates mild peripheral vascular disease with monophasic flow throughout the lower extremity with the exception of the common femoral artery. No focal areas of velocity acceleration are seen to suggest tight focal stenosis.
--- NOTE | ~2022-04-22 | US_ITS ---
EXAMINATION: NONINVASIVE ASSESSMENT OF THE ARTERIES OF BOTH LOWER EXTREMITIES WITH PVR EXAM AND BILATERAL LOWER EXTREMITY DUPLEX Kailash Adams MD CLINICAL INFORMATION: Nonhealing ulcer TECHNIQUE: Ankle pulse volume recordings, ankle pressure measurements and ankle brachial indices were obtained of the lower extremity arterial system bilaterally in addition to duplex Doppler techniques with wave form analysis and measurement of velocities in the common femoral, profunda femoral, superficial femoral, popliteal and tibial arteries. The study was performed only at rest. COMPARISON: None FINDINGS: AT REST: Right Le. The right ankle-brachial index was not measured as pt s/p BKA 2. Right ankle pressure: Not applicable 3. Right ankle PVR waveform: Not applicable 4. Right direct duplex Doppler findings: Common Femoral: 124 triphasic Profunda Femoris: 83 triphasic Proximal SFA: 61 triphasic Mid SFA: 19 biphasic Distal SFA: 58 biphasic Popliteal: 19 Left Le. The left ankle-brachial index is: 0.76 * >0.97-1.25 = normal - no significant arterial disease * 0.75-0.96 = mild peripheral arterial disease * 0.5-0.74 = moderate peripheral arterial disease * <0.50 = severe peripheral arterial disease 2. Left ankle pressure: Decreased consistent with mild PVD 3. Left ankle PVR waveform: normal. 4. Left direct duplex Doppler findings: Common Femoral: 85 biphasic Profunda Femoris: 76 monophasic Proximal SFA: 71 monophasic Mid SFA: 43 monophasic Distal SFA: 94 monophasic Popliteal: 82 monophasic Tibial: 59 monophasic Peroneal: 46 Monophasic US/US VANCE complete IMPRESSION: 1. Status post right leg below-knee amputation with multiphasic flow present throughout the remainder of the lower extremity 2. On the left, VANCE demonstrates mild peripheral vascular disease with monophasic flow throughout the lower extremity with the exception of the common femoral artery. No focal areas of velocity acceleration are seen to suggest tight focal stenosis.
--- NOTE | ~2022-04-22 | MR_ITS ---
EXAMINATION: MR FOOT WITHOUT AND WITH CONTRAST, LEFT CLINICAL INFORMATION: Osteomyelitis. COMPARISON: Most recent left foot radiographs dated 04/22/2022, left foot CT dated 10/08/2021, and left ankle MRI dated 11/27/2020. TECHNIQUE: Multisequence MR imaging of the left foot was obtained before and after the IV administration of 7.5 mL Gadavist contrast on a high-field strength scanner. FINDINGS: Evaluation limited secondary to patient motion. Soft tissue wound/ulceration along the dorsal aspect of the 1st interphalangeal joint with what appears to be an overlying bandage. There is mild skin thickening and edema with mild postcontrast enhancement, consistent with acute cellulitis. No fluid collection or evidence of abscess formation. There is erosion/absence of the 1st proximal phalangeal head and 1st distal phalangeal base which is new when compared to the CT dated 10/08/2021 and was seen on the radiographs dated 04/22/2022. There is mild increased T2 and decreased T1 signal within the adjacent osseous structures with mild postcontrast enhancement. Findings are consistent with acute osteomyelitis/septic arthritis. No associated joint effusion. No additional abnormal marrow signal. No stress reaction or fracture. No concerning lytic or blastic osseous lesion. Edema throughout the intrinsic musculature of the foot, which can be seen in diabetic patients. Intact Lisfranc ligament. MR/MR foot LT wo/w con IMPRESSION: Wound/ulceration along the dorsal aspect of the 1st interphalangeal joint with associated cellulitis. No evidence of abscess formation. Erosion of the 1st proximal phalangeal head and distal phalangeal base with mild edema and enhancement, consistent with acute osteomyelitis/septic arthritis. No associated joint effusion.
[2022-04-22 12:36] VITALS: BP 139/82; BP 142/88; PULSE 67; PULSE 77; RESP 19; TEMP 36.6; O2SAT 98; BMI 25.4
[2022-04-22 13:16] VITALS: BP 139/82; PULSE 77; RESP 19; TEMP 36.6; O2SAT 98
--- NOTE | 2022-04-22 13:26 | ED.WOUNDLAC ---
HPI - Wound/Laceration General Chief Complaint: Wound/Laceration <Alla Todd CNP - Last Filed: 04/22/22 18:16> Stated Complaint: left foot wound <Alla Todd CNP - Last Filed: 04/22/22 18:16> Time Seen by Provider: 04/22/22 13:09 <Alla Todd CNP - Last Filed: 04/22/22 18:16> Source: patient <Alla Todd CNP - Last Filed: 04/22/22 18:16> Mode of arrival: EMS <Alla Todd CNP - Last Filed: 04/22/22 18:16> Limitations: language barrier ( [place]ish-speaking medical office assistant instructor utilized) <Alla Todd CNP - Last Filed: 04/22/22 18:16> History of Present Illness HPI narrative: patient presents to the emergency department from home via EMS for evaluation of a left great toe wound. He is a vague historian, is difficult to obtain a clear history from the patient. He states 2 weeks ago he was walking in his home from the bedroom and somehow sustained a cut to his left great toe but it is unclear how this happened. He is oriented to person place and time of day, disoriented to today's date and event. when asked whether he has had his toe looked at previously he initially states no but then states that hear any had an x-ray done and was given antibiotics but is unclear of any specifics. Denies fevers or chills. States pain to the left great toe has increased, he has numbness to the foot. <Alla Todd CNP - Last Filed: 04/22/22 18:16> Related Data Home Medications: Home Medications Medication Instructions Recorded Confirmed albuterol sulfate 90 mcg/actuation 2 puff inhalation Q4-6H PRN dyspnea 03/08/22 04/22/22 aerosol inhaler (ProAir HFA) aspirin 81 mg tablet,delayed 1 tab PO QAM 03/08/22 04/22/22 release atorvastatin 20 mg tablet 1 tab PO BEDTIME 03/08/22 04/22/22 carvedilol 6.25 mg tablet 1 tab PO BID 03/08/22 04/22/22 cetirizine 10 mg tablet 1 tab PO QAM 03/08/22 04/22/22 clopidogrel 75 mg tablet 1 tab PO QAM 03/08/22 04/22/22 famotidine 20 mg tablet 1 tab PO BID 03/08/22 04/22/22 fluticasone 500 mcg-salmeterol 50 1 puff PO BID 03/08/22 04/22/22 mcg/dose blistr powdr for inhalation (Advair Diskus) fluticasone propionate 50 1 - 2 spray intranasal DAILY PRN 03/08/22 04/22/22 mcg/actuation nasal Allergy Symptoms spray,suspension furosemide 40 mg tablet 1 tab PO DAILY 03/08/22 04/22/22 gabapentin 100 mg capsule 2 cap PO TID 03/08/22 04/22/22 insulin aspart U-100 100 unit/mL 5 unit subcut TID 03/08/22 04/22/22 (3 mL) subcutaneous pen (Novolog Flexpen U-100 Insulin aspart) insulin glargine 100 unit/mL (3 12 unit subcut BEDTIME 03/08/22 04/22/22 mL) subcutaneous pen (Lantus Solostar U-100 Insulin) lidocaine 5 % topical patch 1 patch topical DAILY 03/08/22 04/22/22 (Lidoderm) methadone 10 mg/mL oral concentrate 52 mg PO DAILY 03/08/22 04/18/22 montelukast 10 mg tablet 1 tab PO QPM 03/08/22 04/22/22 spironolactone 25 mg tablet 0.5 tab PO QAM 03/08/22 04/22/22 tamsulosin 0.4 mg capsule 1 cap PO QPM 03/08/22 04/22/22 zinc sulfate 50 mg zinc (220 mg) 1 cap PO DAILY 03/08/22 04/22/22 capsule bumetanide 2 mg tablet 2 mg PO BID 03/30/22 04/22/22 sacubitril 24 mg-valsartan 26 mg 1 tab PO BID 03/30/22 04/22/22 tablet (Entresto) <Alla Todd CNP - Last Filed: 04/22/22 18:16> Allergies/Adverse Reactions: Allergies Allergy/AdvReac Type Severity Reaction Status Date / Time ertapenem Allergy Intermediate Hives Verified 02/21/22 18:40 vancomycin [VANCOMYCIN] Allergy Intermediate HIVES Verified 02/21/22 18:40 Chocolate Allergy Unknown Rash Verified 02/21/22 18:40 ciprofloxacin [From CIPRO] Allergy Unknown SWELLING Verified 02/21/22 18:40 hydrocortisone [Cipro HC] Allergy Unknown Unknown Verified 02/21/22 18:40 sulfamethoxazole Allergy Unknown rash Verified 02/21/22 18:40 [From BACTRIM] trimethoprim [From BACTRIM] Allergy Unknown rash Verified 02/21/22 18:40 turkey [TURKEY] Allergy Unknown RASH Verified 02/21/22 18:40 <Alla Todd CNP - Last Filed: 04/22/22 18:16> Review of Systems Review of Systems: Yes Unobtainable due to mental status <Alla Todd CNP - Last Filed: 04/22/22 18:16> [facility] Past Medical History Attestation statement: The following information was validated with the patient. <Alla Todd CNP - Last Filed: 04/22/22 18:16> Source: old records reviewed <Alla Todd CNP - Last Filed: 04/22/22 18:16> Medical History: Medical History Abscess or cellulitis of foot Acute on chronic anemia Acute on chronic combined systolic and diastolic congestive heart failure Acute on chronic HFrEF (heart failure with reduced ejection fraction) Acute respiratory failure with hypoxia Asthma Bipolar 1 disorder BPH (benign prostatic hyperplasia) CHF (congestive heart failure) CHF exacerbation Cholelithiasis Closed wedge compression fracture of T9 vertebra COPD (chronic obstructive pulmonary disease) Diabetes mellitus Diabetes mellitus, type 2 Elevated troponin GERD (gastroesophageal reflux disease) Hyperlipidemia Ischemic cardiomyopathy Lymphadenopathy Opiate abuse, continuous Osteomyelitis Peripheral arterial disease Peripheral neuropathy Peripheral vascular disease Substance abuse Tracheomalacia, acquired <Alla Todd CNP - Last Filed: 04/22/22 18:16> Surgical History: Surgical History History of amputation History of laminectomy History of transurethral resection of prostate Hx of BKA <Alla Todd CNP - Last Filed: 04/22/22 18:16> Family History Family History: Family History Father Chronic mental illness Hypertension Asthma Stroke Mother Asthma Diabetes Coronary artery disease <Alla Todd CNP - Last Filed: 04/22/22 18:16> Social History Social History: Social History Household Members: Unknown / Unable to assess Housing: Unknown / Unable to assess Housing Other:: IN A LITTLE ROOM Do you presently have visiting nurse or other home services: No Unable to assess alcohol history related to: Refusing to respond Alcohol intake: unknown Patient Tobacco Use Status: Never used Tobacco e-Cigarette/Vaping Use: Never Used Second Hand Smoke Exposure: No Substance Use Type: Opiates Advance Directives: Yes Advance Directives on File: Yes Advance Directives Date on File: 11/24/20 service: No Current occupational status: disabled <Alla Todd CNP - Last Filed: 04/22/22 18:16> Physical Exam Vital Signs: Vital Signs: Last Vital Signs Temp 98 F 04/22/22 13:16 Pulse 77 04/22/22 13:16 Resp 19 04/22/22 13:16 BP 139/82 04/22/22 13:16 Pulse Ox 98 04/22/22 13:16 O2 Del Method 04/22/22 13:16 BMI result Body Mass Index 25.4 Vital signs have been reviewed as normal and appeared to be correct. Blood pressure normal.? Heart rate normal.? Respiration rate normal. Temperature normal.? Oxygen saturation normal. <Alla Todd CNP - Last Filed: 04/22/22 18:16> Vital Signs: Last Vital Signs Temp 98 F 04/22/22 13:16 Pulse 77 04/22/22 13:16 Resp 19 04/22/22 13:16 BP 139/82 04/22/22 13:16 Pulse Ox 98 04/22/22 13:16 O2 Del Method 04/22/22 13:16 BMI result Body Mass Index 25.4 <Kailash Angel MD - Last Filed: 04/22/22 16:48> Appearance: Alert.?Oriented to person, place, disoriented to time and event. No acute distress.? Eyes: Pupils equal, round and reactive to light.? ENT: Pharynx normal.?? Neck: Normal inspection.? Neck supple.?? CVS: Heart sounds normal. Normal heart rate and rhythm.? Pulses normal.?? Respiratory: No respiratory distress.? Lung sounds clear to auscultation bilaterally?? Abdomen: Soft and non-tender. Normoactive bowel sounds. No pulsatile mass.?? Skin: Skin warm and dry.? Normal skin color.? Extremities: No lower extremity edema.? No calf ttp? Neuro: Moves all extremities spontaneously. Sensation intact bilaterally. CN II-XII intact. No focal neuro deficits. <Alla Todd CNP - Last Filed: 04/22/22 18:16> Course Course Course Narrative: Patient is a 51-year-old male with a past medical history of anemia, congestive heart failure, asthma, bipolar, BPH, COPD, diabetes, GERD, hyperlipidemia, ischemic cardiomyopathy, peripheral artery disease, peripheral neuropathy, right BKA. He presents emergency department for evaluation of a left great toe wound. He is a very vague historian, difficult to obtain much history from. Of note patient was admitted into the hospital 04/18/22 and discharged 04/20/22. At that time he was admitted for altered mental status, found to have significant lactic acidosis 10.0, thought to be likely secondary to cannabis usage, blood cultures obtained with no growth, encephalopathy was returned to baseline, urinary retention, he had indwelling Alberts catheter with to follow-up outpatient for voiding trial. patient reports that the catheter was removed by a visiting nurse who came into the home. He states that he has been urinating very frequently since. Patient was offered short-term rehab but he declined and was discharged home. ED no 04/18 does indicate small wound the left great toe without significant inflammation or purulence discharge at that time, started on Zosyn. will obtain CBC, CMP, lactic acid, blood cultures, XR of the left foot, given surrounding cellulitis, will treat with Zosyn IV. <Alla Todd CNP - Last Filed: 04/22/22 18:16> Reevaluation(s) Reevaluation #1: difficulty obtaining IV access and serum labs at this time. Nursing staff attempted ultrasound-guided access x2 without success. X-ray of the left great toe consistent with osteomyelitis, Patient does not meet SIRS criteria at this time, will hold off on sepsis fluid bolus until labs obtained, no current evidence of organ dysfunction. Patient updated patient with the banking analyst on x-ray findings. Patient declines having arms used for IV access any more at this time. Agrees to have IV access obtained via his neck. Spoke with ED attending Dr. Angel who will assist with EJ for central line placement. <Alla Todd CNP - Last Filed: 04/22/22 18:16> Time: 14:52 <Alla Todd CNP - Last Filed: 04/22/22 18:16> Reevaluation #2: Facilitated changing patient into hospital attire, upon removal pants noted Alberts catheter to be present posterior to patient, if the catheter tubing appearing to be cut. When asked how this happened patient is very vague and states the nurse did it . Nursing staff to bedside facilitated placement of a new catheter drainage bag, Will obtain urinalysis to evaluate for infection. <Alla Todd CNP - Last Filed: 04/22/22 18:16> Time: 15:43 <Alla Todd CNP - Last Filed: 04/22/22 18:16> Reevaluation #3: I have discussed the case and disposition with EVAN Todd. I had direct supervison of EVAN and her placement of the central line <Kailash Angel MD - Last Filed: 04/22/22 16:48> Time: 16:48 <Kailash Angel MD - Last Filed: 04/22/22 16:48> Additional Reevaluation(s): Left great toe Wound culture obtained, serum labs obtained from central line in addition to blood cultures. post right IJ placement Chest x-ray reveals no pneumothorax. given patient's antibiotic allergies, added doxycycline for coverage of possible MRSA given co-morbidities. 1752: BMP is overall unremarkable. Elevated transaminases, consistent with prior. Lactic acid 10.0, Sepsis fluid bolus exclusion form utilized, ejection fraction 15-20%, will administer normal saline 250 mL. Current lactic acid is consistent with prior levels on hospitalization, patient was evaluated previously by nephrology and at that was thought to be secondary to marijuana usage. Spoke with hospitalist Dr. Dueñas regarding admission for osteomyelitis of left great toe. <Alla Todd CNP - Last Filed: 04/22/22 18:16> MDM - Wound/Laceration Medical Records Attestation: I reviewed the patient's medical records. <Alla Todd CNP - Last Filed: 04/22/22 18:16> Lab Data Attestation: I reviewed the patient's lab results. <Alla Todd CNP - Last Filed: 04/22/22 18:16> Result diagrams: : 04/22/22 17:18 <Allayumiko Todd CNP - Last Filed: 04/22/22 18:16> Imaging Data Chest x-ray: Radiologist's impression: XR/XR chest 1V IMPRESSION: Right internal jugular central venous catheter in place without pneumothorax. ? Cardiomegaly with mild interstitial prominence consistent with some degree of pulmonary vascular congestion similar to study of April 18, 2022 <Alla Todd CNP - Last Filed: 04/22/22 18:16> Procedures Central Line Placement Right IJ: Time Out Performed: Yes <Alla Todd CNP - Last Filed: 04/22/22 18:16> Patient Placed on Monitor/Pulse Ox: Yes <Alla Todd CNP - Last Filed: 04/22/22 18:16> MD Prep: mask, gown and gloves <Alla Todd CNP - Last Filed: 04/22/22 18:16> Central Line Prep: Chlorhexidine scrub and sterile drapes applied <Alla Todd CNP - Last Filed: 04/22/22 18:16> Local Anesthetic: lidocaine 1% <Alla Todd CNP - Last Filed: 04/22/22 18:16> Amount of anesthesia used (mL): 2 <Alla Todd CNP - Last Filed: 04/22/22 18:16> Ultrasound Used for Placement: Yes <Alla Todd CNP - Last Filed: 04/22/22 18:16> Central Line Lumen Inserted: triple <Alla Todd CNP - Last Filed: 04/22/22 18:16> Post Procedure: sutured in place, good blood return, all ports aspirated, flushed, capped and sterile dressing applied <Alla Todd CNP - Last Filed: 04/22/22 18:16> Post Procedure X-Ray: tip of catheter in good position <Alla Todd CNP - Last Filed: 04/22/22 18:16> Patient Tolerated Procedure: well <Alla Todd CNP - Last Filed: 04/22/22 18:16> Discharge Plan Discharge Clinical Impression: Osteomyelitis of great toe <Alla Todd CNP Last Filed: 04/22/22 18:16> Patient Disposition: Admitted As Inpatient <Alla Todd CNP - Last Filed: 04/22/22 18:16> Sepsis Bolus Exclusion Sepsis Bolus Exclusion CHF/Renal Failure This patient met severe sepsis criteria due to the following condition(s):: Lactate>=4mmol/L <Alla Todd CNP - Last Filed: 04/22/22 18:16> In my clinical judgement the administration of 30 ml/kg of crystalloid would be detrimental to this patient due to the patient's following conditions:: NYHA class III or IV Heart Failure(symptoms with low exertion or rest) and Concern for fluid overload <Alla Todd CNP - Last Filed: 04/22/22 18:16> Replace the 30 mls/kg with (*zero amount not acceptable):: Crystalloids amount given in mls: (rate must be at least 150cc/hr): 250 <Alla Todd CNP - Last Filed: 04/22/22 18:16> Colloids amount given in mls:: 0 <JESSE Braxton Last Filed: 04/22/22 18:16>
--- NOTE | 2022-04-22 15:15 | PHA.MEDREC ---
Pharmacy Consult ? Medication Reconciliation Pharmacy has completed the medication reconciliation. Patient just discharged 04/20/22. No changes per pharmacy records. Prisca Johnson, PharmD
--- NOTE | 2022-04-22 17:28 | PC.NURSE ---
1720: per and ASSEMBLER FITTER okay to use IJ CVC prior to xr confirmation
[2022-04-22] MEDS: Piperacillin Sodium/Tazobactam 3.375 GM in 0.9 % Sodium Chloride 50 ML IV (17:29)
[2022-04-22 17:34] LABS: Appearance Urine HAZY; Color Urine DK YELLOW; Glucose Urine UA NEG (NEG); Leukocyte Esterase Urine NEG (NEG); Nitrite Urine NEG (NEG); PH 5.5 (5.0-8.0); Specific Gravity - Urine >= 1.030 (1.005-1.025); UACC Culture Trigger NO; Urine Blood 3+ (NEG); Urine Ketones NEG (NEG); Urine Protein 2+ MG/DL (NEG-TRACE)
[2022-04-22 17:41] LABS: COVID-19 Test Negative (Negative); IDNOW Serial# 16C4AD1C
[2022-04-22 17:43] LABS: Ethanol < 10 mg/dL
[2022-04-22 17:48] LABS: Amphetamine Screen Urine Not Detected (Not Detect); Barbiturates, Urine Not Detected (Not Detect); Benzodiazepines Screen Urine Not Detected (Not Detect); Cannabinoid Screen Urine POSITIVE (Not Detect); Cocaine Screen Urine Not Detected (Not Detect); Fentanyl, urine Not Detected (Not Detect); Opiate Screen Urine Not Detected (Not Detect); Phencyclidine Screen Urine Not Detected (Not Detect)
[2022-04-22 17:50] LABS: Alanine Aminotransferase 39 U/L (0-40); Albumin Level 3.1 g/dL (3.5-5.0); Alkaline Phosphatase 147 U/L (39-117); Anion Gap 22 (12-20); Aspartate Amino Transferase 86 U/L (5-37); Blood Urea Nitrogen 17 mg/dL (9-16); Calcium 8.8 mg/dL (8.4-10.2); Carbon Dioxide 24 mmol/L (22-29); Chloride 93 mmol/L (96-108); Creatinine Clr Calc Pharmacy 77.9; Estimated Glomerular Filt Rate > 60; Glucose Random 120 mg/dL (60-115); Potassium 4.3 mmol/L (3.3-5.1); Sodium 135 mmol/L (135-145); Total Protein 6.2 g/dL (6.5-8.0)
[2022-04-22 17:51] LABS: Squamous Epithelial Cell Urine 1+ /LPF; WBC Urine 0-2 /HPF (0-4)
[2022-04-22 17:52] LABS: Amorphous Sediment Urine 2+ /LPF; Hyaline Casts Urine 30-49 /LPF; Mucus Urine 3+ /LPF; Renal Epithelial Cells Urine 2+ /LPF
[2022-04-22 18:07] VITALS: BP 116/79; PULSE 84; RESP 18; O2SAT 94
[2022-04-22] MEDS: 0.9 % Sodium Chloride 500 ML 250 ML IV (18:14)
--- NOTE | 2022-04-22 18:31 | P.HPHOSP_ITS ---
History of Present Illness Date of Service: 04/22/22 Chief Complaint: Osteomyelitis 51-year-old male past medical history significant for type 2 diabetes and significant vascular disease recently discharged from [facility] after presenting with a lactic acid of 10. Seen in consultation by Renal; felt this was due to chronic marijuana use as a patient appeared nontoxic without supporting factors to substantiate this is a true lactic acidosis. Initially he came in as an altered mental status however was clear the next morning. He did develop some urinary retention for which a indwelling catheter was placed and he was scheduled for follow-up as an outpatient with Urology. He presents today with an infected left great toe which he states he wound himself by scratching. X-ray is suspicious for osteomyelitis. At this point he will be admitted on IV antibiotics with blood culture and subsequent MRI to document extent Review of Systems Review of Systems: denies chest pain Denies shortness of breath Denies nausea vomiting diarrhea Denies fever chills PMFSH Medical History Abscess or cellulitis of foot Acute on chronic anemia Acute on chronic combined systolic and diastolic congestive heart failure Acute on chronic HFrEF (heart failure with reduced ejection fraction) Acute respiratory failure with hypoxia Asthma Bipolar 1 disorder BPH (benign prostatic hyperplasia) CHF (congestive heart failure) CHF exacerbation Cholelithiasis Closed wedge compression fracture of T9 vertebra COPD (chronic obstructive pulmonary disease) Diabetes mellitus Diabetes mellitus, type 2 Elevated troponin GERD (gastroesophageal reflux disease) Hyperlipidemia Ischemic cardiomyopathy Lymphadenopathy Opiate abuse, continuous Osteomyelitis Peripheral arterial disease Peripheral neuropathy Peripheral vascular disease Substance abuse Tracheomalacia, acquired Family History Father Chronic mental illness Hypertension Asthma Stroke Mother Asthma Diabetes Coronary artery disease Surgical History History of amputation History of laminectomy History of transurethral resection of prostate Hx of BKA Social History Household Members: Unknown / Unable to assess Housing: Unknown / Unable to assess Housing Other:: IN A LITTLE ROOM Do you presently have visiting nurse or other home services: No Unable to assess alcohol history related to: Refusing to respond Alcohol intake: unknown Patient Tobacco Use Status: Never used Tobacco e-Cigarette/Vaping Use: Never Used Second Hand Smoke Exposure: No Substance Use Type: Opiates Advance Directives: Yes Advance Directives on File: Yes Advance Directives Date on File: 11/24/20 service: No Current occupational status: disabled Meds Allergies Allergy/AdvReac Type Severity Reaction Status Date / Time ertapenem Allergy Intermediate Hives Verified 02/21/22 18:40 vancomycin [VANCOMYCIN] Allergy Intermediate HIVES Verified 02/21/22 18:40 Chocolate Allergy Unknown Rash Verified 02/21/22 18:40 ciprofloxacin [From CIPRO] Allergy Unknown SWELLING Verified 02/21/22 18:40 hydrocortisone [Cipro HC] Allergy Unknown Unknown Verified 02/21/22 18:40 sulfamethoxazole Allergy Unknown rash Verified 02/21/22 18:40 [From BACTRIM] trimethoprim [From BACTRIM] Allergy Unknown rash Verified 02/21/22 18:40 turkey [TURKEY] Allergy Unknown RASH Verified 02/21/22 18:40 Active Medications: Current Medications Albuterol Sulfate (Albuterol Sulfate 90 Mcg 8 Gm Inhaler) 2 puff INHALE Q4H PRN PRN Reason: dyspnea Aspirin (Aspirin Enteric Coated 81 Mg Tablet.Dr) 81 mg PO DAILY [facility] Atorvastatin Calcium (Atorvastatin Calcium 20 Mg Tablet) 20 mg PO BEDTIME [facility] Bumetanide (Bumetanide 1 Mg Tablet) 2 mg PO BID [facility]; Protocol Carvedilol (Carvedilol 6.25 Mg Tablet) 6.25 mg PO BID [facility]; Protocol Clopidogrel Bisulfate (Clopidogrel Bisulfate 75 Mg Tablet) 75 mg PO DAILY [facility] Famotidine (Famotidine 20 Mg Tablet) 20 mg PO BID [facility] Gabapentin (Gabapentin 100 Mg Capsule) 200 mg PO TID [facility] Heparin Sodium (Porcine) (Heparin Sodium,Porcine 5,000 Unit/Ml Vial) 5,000 unit SUBCUT Q8H [facility] Sodium Chloride (Ns) 500 mls @ 250 mls/hr IV .Q2H [facility] Stop: 04/22/22 20:14 Last Admin: 04/22/22 18:14 Dose: 250 mls/hr Cefepime HCl 2 gm/ Sodium (Chloride) 50 mls @ 100 mls/hr IV Q12H [facility] Doxycycline Hyclate 100 mg/ (Sodium Chloride) 250 mls @ 166.67 mls/hr IV Q12H [facility] Insulin Glargine (Insulin Glargine,Hum.Rec.Anlog 100 Unit/Ml 10 Ml Vial) 12 unit SUBCUT BEDTIME [facility] Insulin Human Lispro (Insulin Lispro 100 Unit/Ml 3 Ml Vial) 5 unit SUBCUT TIDAC [facility] Insulin Human Lispro (Insulin Lispro 100 Unit/Ml 3 Ml Vial) 0 unit SUBCUT QIDACHS [facility]; Protocol Lidocaine (Lidocaine 4 % Patch Adh..Patch) 1 patch TRANSDERMA DAILY [facility] Loratadine (Loratadine 10 Mg Tablet) 10 mg PO DAILY [facility] Montelukast Sodium (Montelukast Sodium 10 Mg Tablet) 10 mg PO BEDTIME [facility] Pharmacy Consult (Consult Rx Vancomycin Dosing) 1 each MISCELLANE DAILY PRN PRN Reason: Consult order Pharmacy Consult (Consult Rx Perform Med Rec) 1 each MISCELLANE ONCE PRN PRN Reason: Consult order Sacubitril/Valsartan (Sacubitril/Valsartan 1 Tab Tablet) 1 tab PO BID [facility]; Protocol Sodium Chloride (0.9 % Sodium Chloride Flush 3 Ml Syringe) 3 ml IVFLUSH QSHIFT [facility] Spironolactone (Spironolactone 25 Mg Tablet) 12.5 mg PO DAILY [facility]; Protocol Tamsulosin HCl (Tamsulosin Hcl 0.4 Mg Capsule) 0.4 mg PO BEDTIME [facility] Zinc Sulfate (Zinc Sulfate 220 Mg Capsule) 220 mg PO DAILY [facility] Home Medications Medication Instructions Recorded Confirmed Last Taken Type albuterol sulfate 90 mcg/actuation 2 puff inhalation Q4-6H PRN dyspnea 03/08/22 04/22/22 Unknown History aerosol inhaler (ProAir HFA) aspirin 81 mg tablet,delayed 1 tab PO QAM 03/08/22 04/22/22 Unknown History release atorvastatin 20 mg tablet 1 tab PO BEDTIME 03/08/22 04/22/22 Unknown History carvedilol 6.25 mg tablet 1 tab PO BID 03/08/22 04/22/22 Unknown History cetirizine 10 mg tablet 1 tab PO QAM 03/08/22 04/22/22 Unknown History clopidogrel 75 mg tablet 1 tab PO QAM 03/08/22 04/22/22 Unknown History famotidine 20 mg tablet 1 tab PO BID 03/08/22 04/22/22 Unknown History fluticasone 500 mcg-salmeterol 50 1 puff PO BID 03/08/22 04/22/22 Unknown History mcg/dose blistr powdr for inhalation (Advair Diskus) fluticasone propionate 50 1 - 2 spray intranasal DAILY PRN 03/08/22 04/22/22 Unknown History mcg/actuation nasal Allergy Symptoms spray,suspension furosemide 40 mg tablet 1 tab PO DAILY 03/08/22 04/22/22 Unknown History gabapentin 100 mg capsule 2 cap PO TID 03/08/22 04/22/22 Unknown History insulin aspart U-100 100 unit/mL 5 unit subcut TID 03/08/22 04/22/22 Unknown History (3 mL) subcutaneous pen (Novolog Flexpen U-100 Insulin aspart) insulin glargine 100 unit/mL (3 12 unit subcut BEDTIME 03/08/22 04/22/22 03/07/22 History mL) subcutaneous pen (Lantus Solostar U-100 Insulin) lidocaine 5 % topical patch 1 patch topical DAILY 03/08/22 04/22/22 Unknown History (Lidoderm) methadone 10 mg/mL oral concentrate 52 mg PO DAILY 03/08/22 04/18/22 03/08/22 History montelukast 10 mg tablet 1 tab PO QPM 03/08/22 04/22/22 Unknown History spironolactone 25 mg tablet 0.5 tab PO QAM 03/08/22 04/22/22 Unknown History tamsulosin 0.4 mg capsule 1 cap PO QPM 03/08/22 04/22/22 Unknown History zinc sulfate 50 mg zinc (220 mg) 1 cap PO DAILY 03/08/22 04/22/22 Unknown History capsule bumetanide 2 mg tablet 2 mg PO BID 03/30/22 04/22/22 Unknown History sacubitril 24 mg-valsartan 26 mg 1 tab PO BID 03/30/22 04/22/22 Unknown History tablet (Entresto) Physical Exam Vital Signs and Narrative: Vital Signs: Last Vital Signs Temp 98 F 04/22/22 13:16 Pulse 84 04/22/22 18:07 Resp 18 04/22/22 18:07 BP 116/79 04/22/22 18:07 Pulse Ox 94 04/22/22 18:07 O2 Del Method 04/22/22 18:07 BMI result Body Mass Index 25.4 Const: Other: awake alert no acute distress Resp: Other: clear to auscultation bilaterally no rales rhonchi or wheezes Cardio: Other: no S4; positive S1-S2; no S3 murmurs rubs or gallops GI: Other: soft nontender nondistended normoactive bow Extrem: Other: no edema left lower extremity see ER photos for details of wound Results Labs CBC and Chem 7: 04/22/22 17:18 Labs: Laboratory Results - last 24 hr 04/22/22 04/22/22 04/22/22 17:18 17:18 17:18 Anion Gap 22 H Estim Creat Clear Calc 77.9 Estimated GFR > 60 Random Glucose 120 H Lactic Acid 10.0 H* Calcium 8.8 D Total Bilirubin 3.0 H AST 86 H ALT 39 Alkaline Phosphatase 147 H D C-Reactive Protein 2.20 H Total Protein 6.2 L D Albumin 3.1 L D Urine Color Urine Appearance Urine pH Ur Specific [place] Urine Protein Urine Glucose (UA) Urine Ketones Urine Blood Urine Nitrite Ur Leukocyte Esterase Urine RBC Urine WBC Ur Squamous Epith Cells Ur Renal Epithelial Cell Amorphous Sediment Urine Bacteria Epithelial Casts Hyaline Casts Urine Mucus Urine Opiates Screen Urine Fentanyl Screen Ur Barbiturates Screen Ur Phencyclidine Scrn Ur Amphetamines Screen U Benzodiazepines Scrn Urine Cocaine Screen U Marijuana (THC) Screen Ethyl Alcohol COVID-19 (JAMILA) Negative COVID-19 Clin Com See Note 04/22/22 04/22/22 04/22/22 17:18 17:18 17:18 Anion Gap Estim Creat Clear Calc Estimated GFR Random Glucose Lactic Acid Calcium Total Bilirubin AST ALT Alkaline Phosphatase C-Reactive Protein Total Protein Albumin Urine Color DK YELLOW Urine Appearance HAZY Urine pH 5.5 Ur Specific [place] >= 1.030 H Urine Protein 2+ H Urine Glucose (UA) NEG Urine Ketones NEG Urine Blood 3+ H Urine Nitrite NEG Ur Leukocyte Esterase NEG Urine RBC 10-14 H Urine WBC 0-2 Ur Squamous Epith Cells 1+ Ur Renal Epithelial Cell 2+ Amorphous Sediment 2+ Urine Bacteria NONE Epithelial Casts 1-4 Hyaline Casts 30-49 Urine Mucus 3+ Urine Opiates Screen Not Detected Urine Fentanyl Screen Not Detected Ur Barbiturates Screen Not Detected Ur Phencyclidine Scrn Not Detected Ur Amphetamines Screen Not Detected U Benzodiazepines Scrn Not Detected Urine Cocaine Screen Not Detected U Marijuana (THC) Screen POSITIVE H Ethyl Alcohol < 10 COVID-19 (JAMILA) COVID-19 Clin Com Imaging Radiologist's Impressions: Impressions Foot X-Ray 04/22/22 13:34 IMPRESSION: Bony destruction of the distal first digit highly consistent with osteomyelitis. Chest X-Ray 04/22/22 17:20 IMPRESSION: Right internal jugular central venous catheter in place without pneumothorax. Cardiomegaly with mild interstitial prominence consistent with some degree of pulmonary vascular congestion similar to study of April 18, 2022 Assessment and Plan (1) Osteomyelitis of great toe: Status: Acute (2) Elevated lactic acid level: Status: Acute (3) Diabetes mellitus, type 2: Status: Acute Plan 51-year-old male with known history of diabetes insulin dependent and peripheral vascular disease presents today with left great toe wound which he states he did while scratching toe. Traditionally a poor historian. ER workup consistent with osteomyelitis. 1. Osteomyelitis left great toe - cefepime/ doxycycline pending ID consult - MRI left foot to verify osteomyelitis - await blood and wound cultures 2.Elevated lactic acidosis - similar presentation to last admission; Given normal bicarbonate this is likely secondary to ongoing marijuana use - gentle fluids overnight recheck in a.m.. If decreased will not trend any further 3. Diabetes type 2 - continue outpatient insulin regimen... adjust as indicated - lispro correctional scale - ADA diet 4. Opioid use disorder - care team consult to verify methadone order in a.m. 5. Urinary retention - continue indwelling Alberts Heparin Full code Will require 2 midnights going forward for IV antibiotics to treat osteomyelitis. This cannot be achieved in a lesser acute setting Quality Stroke Does the patient have a stroke diagnosis?: No VTE Prior VTE?: No VTE Risk Level:: Medical - moderate - high VTE Device Contraindication: Treatment Not Indicated VTE Drug Contraindication: N/A - Med Ordered
--- NOTE | 2022-04-22 19:06 | PC.NURSE ---
Pt attempted to remove central line. Dr. Parks secured site with double tegaderm. Plan at this time is cxr.
[2022-04-22] MEDS: Aspirin Enteric Coated 81 MG TABLET.DR PO (19:13)
[2022-04-22] MEDS: Spironolactone 25 MG TABLET 12.5 MG PO (19:14)
[2022-04-22] MEDS: Clopidogrel Bisulfate 75 MG TABLET PO (19:14)
[2022-04-22] MEDS: cefEPime HCl 2 GM in 0.9 % Sodium Chloride 50 ML IV (19:14)
[2022-04-22] MEDS: Loratadine 10 MG TABLET PO (19:14)
[2022-04-22] MEDS: Doxycycline Hyclate 100 MG in 0.9 % Sodium Chloride 250 ML 166.67 MG IV (19:15)
[2022-04-22] MEDS: Gabapentin 100 MG CAPSULE 200 MG PO (19:17)
[2022-04-22 19:24] LABS: Reflex Lactate? Lactic Acid Added
[2022-04-22 20:14] LABS: ~Lactic Acid-LAB USE ONLY 9.9 mmol/L (0.5-2.0)
[2022-04-22 21:29] LABS: Basophils Percent Auto 0.3 % (0-2); Hemoglobin 12.8 g/dl (14.0-18.0); Imm Gran Abs Auto 0.03 X10*3/uL (0.00-0.03); Imm Gran Pct Auto 0.4 % (0.0-0.4); Lymphocytes Absolute Auto 1.7 X10*3/uL (1.2-4.9); Lymphocytes Percent Auto 25.1 % (20-40); MANUAL DIFF FLAG NO; Mean Corpuscular HGB Conc 30.5 g/dl (31.0-36.0); Mean Corpuscular Hemoglobin 26.9 pg (27.0-33.0); Mean Corpuscular Volume 88.4 fL (80.0-98.0); Mean Platelet Volume 10.9 fL (9.4-12.4); Monocytes Absolute Auto 0.6 X10*3/uL (0.1-1.2); NRBC Pct Auto 0.6 /100WBC (0.0-0.2); Neutrophils Absolute Auto 4.6 x10*3/uL (2.0-8.3); Neutrophils Percent Auto 66.2 % (45-73); Platelet Count 151 X10*3/uL (160-400); Red Blood Count 4.75 X10*6/uL (4.60-5.80); Red Cell Distribution Width 22.5 % (11.0-16.0); White Blood Count 6.9 X10*3/uL (4.8-10.8)
[2022-04-22] MEDS: Famotidine 20 MG TABLET PO (21:37)
[2022-04-22] MEDS: carvediloL 6.25 MG TABLET PO (21:37)
[2022-04-22] MEDS: Bumetanide 1 MG TABLET 2 MG PO (21:37)
[2022-04-22] MEDS: Tamsulosin HCL 0.4 MG CAPSULE PO (21:37)
[2022-04-22] MEDS: Montelukast Sodium 10 MG TABLET PO (21:38)
[2022-04-22] MEDS: Sacubitril/Valsartan 24/26 1 TAB TABLET PO (21:41)
[2022-04-22] MEDS: Atorvastatin Calcium 20 MG TABLET PO (21:42)
[2022-04-22 21:46] VITALS: BP 131/85; PULSE 87; RESP 14; O2SAT 97
[2022-04-22 21:58] LABS: Reflex Lactate? 2 Y
[2022-04-22 22:33] LABS: ~Lactic Acid-LAB USE ONLY 8.5 mmol/L (0.5-2.0)
[2022-04-22 23:10] VITALS: BP 127/73; PULSE 88; RESP 16; TEMP 36.5; O2SAT 95
--- NOTE | 2022-04-22 23:37 | PC.NURSE ---
Patient arrived from ED overflow. Alert and oriented. Settled into bed and instructed on use of callbell. Patient lungs CTA, abdomen soft, +BS. Pedal pulse palpable left foot, 2+ edema left foot. Patient skin has small red circular scabs throughout dailey on left and right BKA stump. Wound with approximately 2-3 cm gash, with approx 3 mm opening open to air. Covered with 2x2 and secured with tubi gauze. Patient denies pain.
[2022-04-23 00:12] LABS: Glucose, Whole Blood 104 mg/dL (60-115)
[2022-04-23] MEDS: Insulin Glargine,Hum.rec.anlog 100 UNIT/ML 10 ML VIAL 12 UNIT SUBCUT (00:33)
[2022-04-23] MEDS: 0.9 % Sodium Chloride Flush 3 ML SYRINGE IVFLUSH ×3 (00:36→16:27)
[2022-04-23 03:44] VITALS: BP 132/65; PULSE 74; RESP 16; TEMP 36.8; O2SAT 96
[2022-04-23] MEDS: cefEPime HCl 2 GM in 0.9 % Sodium Chloride 50 ML IV ×2 (04:54→17:44)
--- NOTE | 2022-04-23 05:53 | PC.NURSE ---
Patient refused heparin and lab draws this morning.
[2022-04-23 06:22] LABS: MANUAL DIFF FLAG NO
[2022-04-23 06:37] LABS: Basophils Absolute Auto 0.1 X10*3/uL (0.0-0.2); Hemoglobin 14.2 g/dl (14.0-18.0); NRBC Pct Auto 0.3 /100WBC (0.0-0.2); PLT CLUMP 1; SCAN SMEAR FLAG 1
[2022-04-23 06:39] LABS: Eosinophils Absolute Auto 0.1 X10*3/uL (0.0-0.4); Eosinophils Percent Auto 1.3 % (0-4); Hematocrit 45.2 % (42.0-52.0); Imm Gran Abs Auto 0.02 X10*3/uL (0.00-0.03); Imm Gran Pct Auto 0.3 % (0.0-0.4); Lymphocytes Percent Auto 29.4 % (20-40); Mean Corpuscular HGB Conc 31.4 g/dl (31.0-36.0); Mean Corpuscular Hemoglobin 27.2 pg (27.0-33.0); Mean Corpuscular Volume 86.4 fL (80.0-98.0); Mean Platelet Volume 10.9 fL (9.4-12.4); Monocytes Absolute Auto 0.8 X10*3/uL (0.1-1.2); Monocytes Percent Auto 11.1 % (2-11); Neutrophils Absolute Auto 3.8 x10*3/uL (2.0-8.3); Neutrophils Percent Auto 56.9 % (45-73); Red Blood Count 5.23 X10*6/uL (4.60-5.80)
[2022-04-23 06:42] LABS: Platelet Count 136 X10*3/uL (160-400); White Blood Count 6.8 X10*3/uL (4.8-10.8)
[2022-04-23 06:48] LABS: Lactic Acid 3.6 mmol/L (0.5-2.0)
[2022-04-23 06:53] LABS: Alanine Aminotransferase 56 U/L (0-40); Albumin Level 2.9 g/dL (3.5-5.0); Alkaline Phosphatase 131 U/L (39-117); Anion Gap 16 (12-20); Aspartate Amino Transferase 154 U/L (5-37); Bilirubin Total 2.5 mg/dL (0.0-1.0); Blood Urea Nitrogen 16 mg/dL (9-16); Calcium 8.3 mg/dL (8.4-10.2); Carbon Dioxide 28 mmol/L (22-29); Chloride 97 mmol/L (96-108); Creatinine Clr Calc Pharmacy 83.4; Estimated Glomerular Filt Rate > 60; Glucose Fasting 107 mg/dL (60-99); Potassium 3.9 mmol/L (3.3-5.1); Sodium 137 mmol/L (135-145)
[2022-04-23] MEDS: Doxycycline Hyclate 100 MG in 0.9 % Sodium Chloride 250 ML 166.67 MG IV ×2 (07:24→18:46)
[2022-04-23 07:42] LABS: Glucose, Whole Blood 127 mg/dL (60-115)
[2022-04-23 08:00] VITALS: BP 104/81; PULSE 88; RESP 17; TEMP 36.8; O2SAT 100
[2022-04-23 08:19] LABS: Reflex Lactate? Lactic Acid Added
[2022-04-23 10:17] LABS: ~Lactic Acid-LAB USE ONLY 3.7 mmol/L (0.5-2.0)
[2022-04-23] MEDS: Gabapentin 100 MG CAPSULE 200 MG PO ×2 (10:37→22:07)
[2022-04-23] MEDS: Aspirin Enteric Coated 81 MG TABLET.DR PO (10:37)
[2022-04-23] MEDS: Clopidogrel Bisulfate 75 MG TABLET PO (10:37)
[2022-04-23] MEDS: Famotidine 20 MG TABLET PO ×2 (10:37→22:07)
[2022-04-23] MEDS: Bumetanide 1 MG TABLET 2 MG PO ×2 (10:37→22:06)
[2022-04-23] MEDS: Spironolactone 25 MG TABLET 12.5 MG PO (10:38)
[2022-04-23] MEDS: carvediloL 6.25 MG TABLET PO ×2 (10:38→22:06)
[2022-04-23] MEDS: Zinc Sulfate 220 MG CAPSULE PO (10:38)
[2022-04-23] MEDS: Sacubitril/Valsartan 24/26 1 TAB TABLET PO ×2 (10:38→22:07)
[2022-04-23] MEDS: Loratadine 10 MG TABLET PO (10:38)
[2022-04-23] MEDS: methADONE HCl 20 MG/2 ML ORAL.CONC 50 MG PO (10:39)
[2022-04-23] MEDS: Heparin Sodium,Porcine 5,000 UNIT/ML VIAL 5000 UNIT SUBCUT (10:39)
[2022-04-23 11:22] LABS: Glucose, Whole Blood 190 mg/dL (60-115)
[2022-04-23] MEDS: Insulin Lispro 100 UNIT/ML 3 ML VIAL SUBCUT ×2 (11:30→11:31)
[2022-04-23 11:51] LABS: Reflex Lactate? 2 Y
[2022-04-23 12:00] VITALS: BP 110/92; PULSE 77; RESP 18; TEMP 36.8; O2SAT 97
--- NOTE | 2022-04-23 12:55 | HO.PM.IMPN ---
Subjective Subjective Date of Service: 04/23/22 Interval History: no acute issues overnight. Remains compliant with therapy Review of Systems denies chest pain Denies shortness of breath Denies nausea vomiting diarrhea Denies fever chills Physical Exam Vital Signs: Vital Signs: Last Vital Signs Temp 98.3 F 04/23/22 12:00 Pulse 77 04/23/22 12:00 Resp 18 04/23/22 12:00 BP 110/92 H 04/23/22 12:00 Pulse Ox 97 04/23/22 12:00 O2 Del Method 04/23/22 12:00 BMI result Body Mass Index 25.4 Const: Other: awake alert no acute distress Resp: Other: clear to auscultation bilaterally no rales rhonchi or wheezes Cardio: Other: no S4; positive S1-S2; no S3 murmurs rubs or gallops GI: Other: soft nontender nondistended normoactive bow Extrem: Other: no edema left lower extremity see ER photos for details of wound Objective Data Active Medications Albuterol Sulfate (Albuterol Sulfate 90 Mcg 8 Gm Inhaler) 2 puff INHALE Q4H PRN PRN Reason: dyspnea Aspirin (Aspirin Enteric Coated 81 Mg Tablet.) 81 mg PO DAILY [facility] Last Admin: 04/23/22 10:37 Dose: 81 mg Documented By: MAURY Atorvastatin Calcium (Atorvastatin Calcium 20 Mg Tablet) 20 mg PO BEDTIME [facility] Last Admin: 04/22/22 21:42 Dose: 20 mg Documented By: DOROTHY Bumetanide (Bumetanide 1 Mg Tablet) 2 mg PO BID [facility]; Protocol Last Admin: 04/23/22 10:37 Dose: 2 mg Documented By: MAURY Carvedilol (Carvedilol 6.25 Mg Tablet) 6.25 mg PO BID [facility]; Protocol Last Admin: 04/23/22 10:38 Dose: 6.25 mg Documented By: MAURY Clopidogrel Bisulfate (Clopidogrel Bisulfate 75 Mg Tablet) 75 mg PO DAILY [facility] Last Admin: 04/23/22 10:37 Dose: 75 mg Documented By: MAURY Famotidine (Famotidine 20 Mg Tablet) 20 mg PO BID [facility] Last Admin: 04/23/22 10:37 Dose: 20 mg Documented By: MAURY Gabapentin (Gabapentin 100 Mg Capsule) 200 mg PO TID [facility] Last Admin: 04/23/22 10:37 Dose: 200 mg Documented By: MAURY Heparin Sodium (Porcine) (Heparin Sodium,Porcine 5,000 Unit/Ml Vial) 5,000 unit SUBCUT Q8H [facility] Last Admin: 04/23/22 10:39 Dose: 5,000 unit Documented By: MAURY Cefepime HCl 2 gm/ Sodium (Chloride) 50 mls @ 100 mls/hr IV Q12H [facility] Last Infusion: 04/23/22 05:29 Dose: 0 mls/hr Documented By: RACHAEL Doxycycline Hyclate 100 mg/ (Sodium Chloride) 250 mls @ 166.67 mls/hr IV Q12H [facility] Last Infusion: 04/23/22 09:39 Dose: 0 mls/hr Documented By: MAURY Insulin Glargine (Insulin Glargine,Hum.Rec.Anlog 100 Unit/Ml 10 Ml Vial) 12 unit SUBCUT BEDTIME [facility] Last Admin: 04/23/22 00:33 Dose: 12 unit Documented By: RACHAEL Insulin Human Lispro (Insulin Lispro 100 Unit/Ml 3 Ml Vial) 5 unit SUBCUT TIDAC [facility] Last Admin: 04/23/22 11:30 Dose: 5 unit Documented By: MAURY Insulin Human Lispro (Insulin Lispro 100 Unit/Ml 3 Ml Vial) 0 unit SUBCUT QIDACHS [facility]; Protocol Last Admin: 04/23/22 11:31 Dose: 2 unit Documented By: MAURY Lidocaine (Lidocaine 4 % Patch Adh..Patch) 1 patch TRANSDERMA DAILY [facility] Last Admin: 04/23/22 10:38 Dose: Not Given Documented By: MAURY Non-Admin Reason: Patient Refused Loratadine (Loratadine 10 Mg Tablet) 10 mg PO DAILY [facility] Last Admin: 04/23/22 10:38 Dose: 10 mg Documented By: MAURY Methadone HCl (Methadone Hcl 20 Mg/2 Ml Oral.Conc) 50 mg PO DAILY [facility] Last Admin: 04/23/22 10:39 Dose: 50 mg Documented By: MAURY Montelukast Sodium (Montelukast Sodium 10 Mg Tablet) 10 mg PO BEDTIME [facility] Last Admin: 04/22/22 21:38 Dose: 10 mg Documented By: DOROTHY Pharmacy Consult (Consult Rx Vancomycin Dosing) 1 each MISCELLANE DAILY PRN PRN Reason: Consult order Pharmacy Consult (Consult Rx Perform Med Rec) 1 each MISCELLANE ONCE PRN PRN Reason: Consult order Sacubitril/Valsartan (Sacubitril/Valsartan 1 Tab Tablet) 1 tab PO BID [facility]; Protocol Last Admin: 04/23/22 10:38 Dose: 1 tab Documented By: MAURY Sodium Chloride (0.9 % Sodium Chloride Flush 3 Ml Syringe) 3 ml IVFLUSH QSHIFT [facility] Last Admin: 04/23/22 07:28 Dose: 3 ml Documented By: MAURY Spironolactone (Spironolactone 25 Mg Tablet) 12.5 mg PO DAILY [facility]; Protocol Last Admin: 04/23/22 10:38 Dose: 12.5 mg Documented By: MAURY Tamsulosin HCl (Tamsulosin Hcl 0.4 Mg Capsule) 0.4 mg PO BEDTIME [facility] Last Admin: 04/22/22 21:37 Dose: 0.4 mg Documented By: DOROTHY Zinc Sulfate (Zinc Sulfate 220 Mg Capsule) 220 mg PO DAILY [facility] Last Admin: 04/23/22 10:38 Dose: 220 mg Documented By: MAURY Labs CBC & Chem 7: 04/23/22 06:07 04/23/22 06:07 Labs: Laboratory Results - last 24 hr 04/22/22 04/22/22 04/22/22 17:18 17:18 17:18 MCV 88.4 MCH 26.9 L MCHC 30.5 L RDW 22.5 H Plt Count 151 L MPV 10.9 Immature Gran % (Auto) 0.4 Neut % (Auto) 66.2 Lymph % (Auto) 25.1 Rab[place] % (Auto) 8.0 Eos % (Auto) 0.0 Baso % (Auto) 0.3 Lymph # (Auto) 1.7 Rab[place] # (Auto) 0.6 Eos # (Auto) 0.0 Baso # (Auto) 0.0 Abs Immat Gran (auto) 0.03 Absolute Neuts (auto) 4.6 Absolute Nucleated RBC 0.040 H Nucleated RBC % (auto) 0.6 H Anion Gap 22 H Estim Creat Clear Calc 77.9 Estimated GFR > 60 POC Glucose Random Glucose 120 H Fasting Glucose Lactic Acid 10.0 H* Lactic Acid F/U @ 2Hr Lactic Acid F/U @ 4Hr Calcium 8.8 D Total Bilirubin 3.0 H AST 86 H ALT 39 Alkaline Phosphatase 147 H D C-Reactive Protein 2.20 H Total Protein 6.2 L D Albumin 3.1 L D Urine Color Urine Appearance Urine pH Ur Specific [place] Urine Protein Urine Glucose (UA) Urine Ketones Urine Blood Urine Nitrite Ur Leukocyte Esterase Urine RBC Urine WBC Ur Squamous Epith Cells Ur Renal Epithelial Cell Amorphous Sediment Urine Bacteria Epithelial Casts Hyaline Casts Urine Mucus Urine Opiates Screen Urine Fentanyl Screen Ur Barbiturates Screen Ur Phencyclidine Scrn Ur Amphetamines Screen U Benzodiazepines Scrn Urine Cocaine Screen U Marijuana (THC) Screen Ethyl Alcohol COVID-19 (JAMILA) COVID-[place] 04/22/22 04/22/22 04/22/22 17:18 17:18 17:18 MCV MCH MCHC RDW Plt Count MPV Immature Gran % (Auto) Neut % (Auto) Lymph % (Auto) [place] % (Auto) Eos % (Auto) Baso % (Auto) Lymph # (Auto) [place] # (Auto) Eos # (Auto) Baso # (Auto) Abs Immat Gran (auto) Absolute Neuts (auto) Absolute Nucleated RBC Nucleated RBC % (auto) Anion Gap Estim Creat Clear Calc Estimated GFR POC Glucose Random Glucose Fasting Glucose Lactic Acid Lactic Acid F/U @ 2Hr Lactic Acid F/U @ 4Hr Calcium Total Bilirubin AST ALT Alkaline Phosphatase C-Reactive Protein Total Protein Albumin Urine Color Urine Appearance Urine pH Ur Specific [place] Urine Protein Urine Glucose (UA) Urine Ketones Urine Blood Urine Nitrite Ur Leukocyte Esterase Urine RBC Urine WBC Ur Squamous Epith Cells Ur Renal Epithelial Cell Amorphous Sediment Urine Bacteria Epithelial Casts Hyaline Casts Urine Mucus Urine Opiates Screen Not Detected Urine Fentanyl Screen Not Detected Ur Barbiturates Screen Not Detected Ur Phencyclidine Scrn Not Detected Ur Amphetamines Screen Not Detected U Benzodiazepines Scrn Not Detected Urine Cocaine Screen Not Detected U Marijuana (THC) Screen POSITIVE H Ethyl Alcohol < 10 COVID-19 (JAMILA) Negative COVID-[place] See Note 04/22/22 04/22/22 04/22/22 17:18 19:53 22:13 MCV MCH MCHC RDW Plt Count MPV Immature Gran % (Auto) Neut % (Auto) Lymph % (Auto) [place] % (Auto) Eos % (Auto) Baso % (Auto) Lymph # (Auto) [place] # (Auto) Eos # (Auto) Baso # (Auto) Abs Immat Gran (auto) Absolute Neuts (auto) Absolute Nucleated RBC Nucleated RBC % (auto) Anion Gap Estim Creat Clear Calc Estimated GFR POC Glucose Random Glucose Fasting Glucose Lactic Acid Lactic Acid F/U @ 2Hr 9.9 H* Lactic Acid F/U @ 4Hr 8.5 H* Calcium Total Bilirubin AST ALT Alkaline Phosphatase C-Reactive Protein Total Protein Albumin Urine Color DK YELLOW Urine Appearance HAZY Urine pH 5.5 Ur Specific [place] >= 1.030 H Urine Protein 2+ H Urine Glucose (UA) NEG Urine Ketones NEG Urine Blood 3+ H Urine Nitrite NEG Ur Leukocyte Esterase NEG Urine RBC 10-14 H Urine WBC 0-2 Ur Squamous Epith Cells 1+ Ur Renal Epithelial Cell 2+ Amorphous Sediment 2+ Urine Bacteria NONE Epithelial Casts 1-4 Hyaline Casts 30-49 Urine Mucus 3+ Urine Opiates Screen Urine Fentanyl Screen Ur Barbiturates Screen Ur Phencyclidine Scrn Ur Amphetamines Screen U Benzodiazepines Scrn Urine Cocaine Screen U Marijuana (THC) Screen Ethyl Alcohol COVID-19 (JAMILA) COVID-19 Clin Com 04/23/22 04/23/22 04/23/22 00:07 06:07 06:07 MCV 86.4 MCH 27.2 MCHC 31.4 RDW 23.0 H Plt Count 136 L MPV 10.9 Immature Gran % (Auto) 0.3 Neut % (Auto) 56.9 Lymph % (Auto) 29.4 Rab[place] % (Auto) 11.1 H Eos % (Auto) 1.3 Baso % (Auto) 1.0 Lymph # (Auto) 2.0 [place] # (Auto) 0.8 Eos # (Auto) 0.1 Baso # (Auto) 0.1 Abs Immat Gran (auto) 0.02 Absolute Neuts (auto) 3.8 Absolute Nucleated RBC 0.020 H Nucleated RBC % (auto) 0.3 H Anion Gap 16 Estim Creat Clear Calc 83.4 Estimated GFR > 60 POC Glucose 104 Random Glucose Fasting Glucose 107 H D Lactic Acid Lactic Acid F/U @ 2Hr Lactic Acid F/U @ 4Hr Calcium 8.3 L Total Bilirubin 2.5 H AST 154 H ALT 56 H Alkaline Phosphatase 131 H C-Reactive Protein Total Protein 6.0 L Albumin 2.9 L Urine Color Urine Appearance Urine pH Ur Specific [place] Urine Protein Urine Glucose (UA) Urine Ketones Urine Blood Urine Nitrite Ur Leukocyte Esterase Urine RBC Urine WBC Ur Squamous Epith Cells Ur Renal Epithelial Cell Amorphous Sediment Urine Bacteria Epithelial Casts Hyaline Casts Urine Mucus Urine Opiates Screen Urine Fentanyl Screen Ur Barbiturates Screen Ur Phencyclidine Scrn Ur Amphetamines Screen U Benzodiazepines Scrn Urine Cocaine Screen U Marijuana (THC) Screen Ethyl Alcohol COVID-19 (JAMILA) COVID-19 [employer] 04/23/22 04/23/22 04/23/22 06:07 07:21 09:41 MCV MCH MCHC RDW Plt Count MPV Immature Gran % (Auto) Neut % (Auto) Lymph % (Auto) [place] % (Auto) Eos % (Auto) Baso % (Auto) Lymph # (Auto) [place] # (Auto) Eos # (Auto) Baso # (Auto) Abs Immat Gran (auto) Absolute Neuts (auto) Absolute Nucleated RBC Nucleated RBC % (auto) Anion Gap Estim Creat Clear Calc Estimated GFR POC Glucose 127 H Random Glucose Fasting Glucose Lactic Acid 3.6 H* Lactic Acid F/U @ 2Hr 3.7 H* Lactic Acid F/U @ 4Hr Calcium Total Bilirubin AST ALT Alkaline Phosphatase C-Reactive Protein Total Protein Albumin Urine Color Urine Appearance Urine pH Ur Specific [place] Urine Protein Urine Glucose (UA) Urine Ketones Urine Blood Urine Nitrite Ur Leukocyte Esterase Urine RBC Urine WBC Ur Squamous Epith Cells Ur Renal Epithelial Cell Amorphous Sediment Urine Bacteria Epithelial Casts Hyaline Casts Urine Mucus Urine Opiates Screen Urine Fentanyl Screen Ur Barbiturates Screen Ur Phencyclidine Scrn Ur Amphetamines Screen U Benzodiazepines Scrn Urine Cocaine Screen U Marijuana (THC) Screen Ethyl Alcohol COVID-19 (JAMILA) COVID-[place] 04/23/22 11:14 MCV MCH MCHC RDW Plt Count MPV Immature Gran % (Auto) Neut % (Auto) Lymph % (Auto) [place] % (Auto) Eos % (Auto) Baso % (Auto) Lymph # (Auto) [place] # (Auto) Eos # (Auto) Baso # (Auto) Abs Immat Gran (auto) Absolute Neuts (auto) Absolute Nucleated RBC Nucleated RBC % (auto) Anion Gap Estim Creat Clear Calc Estimated GFR POC Glucose 190 H Random Glucose Fasting Glucose Lactic Acid Lactic Acid F/U @ 2Hr Lactic Acid F/U @ 4Hr Calcium Total Bilirubin AST ALT Alkaline Phosphatase C-Reactive Protein Total Protein Albumin Urine Color Urine Appearance Urine pH Ur Specific [place] Urine Protein Urine Glucose (UA) Urine Ketones Urine Blood Urine Nitrite Ur Leukocyte Esterase Urine RBC Urine WBC Ur Squamous Epith Cells Ur Renal Epithelial Cell Amorphous Sediment Urine Bacteria Epithelial Casts Hyaline Casts Urine Mucus Urine Opiates Screen Urine Fentanyl Screen Ur Barbiturates Screen Ur Phencyclidine Scrn Ur Amphetamines Screen U Benzodiazepines Scrn Urine Cocaine Screen U Marijuana (THC) Screen Ethyl Alcohol COVID-19 (JAMILA) COVID-19 Clin Com Microbiology Microbiology Results: Microbiology 04/22/22 17:43 Gram Stain - Final Toe Left Great Routine Culture - Preliminary Culture in progress. Assessment and Plan (1) Osteomyelitis of great toe: Status: Acute (2) Elevated lactic acid level: Status: Acute (3) Diabetes mellitus, type 2: Status: Acute Plan 51-year-old male with known history of diabetes insulin dependent and peripheral vascular disease presents today with left great toe wound which he states he did while scratching toe. Traditionally a poor historian. ER workup consistent with osteomyelitis. 1. Osteomyelitis left great toe - cefepime/ doxycycline pending ID consult - MRI left foot to verify osteomyelitis - await blood and wound cultures 2.Elevated lactic acidosis - improved. - similar presentation to last admission; Given normal bicarbonate this is likely secondary to ongoing marijuana use 3. Diabetes type 2 - continue outpatient insulin regimen... adjust as indicated - lispro correctional scale - ADA diet 4. Opioid use disorder - care team consult to verify methadone order in a.m. 5. Urinary retention - continue indwelling Alberts Heparin Full code Will require ongoing hospitalization for IV antibiotics to treat osteomyelitis Quality Stroke Does the patient have a stroke diagnosis?: No VTE Prior VTE?: No VTE Risk Level:: Medical - moderate - high VTE Device Contraindication: Treatment Not Indicated VTE Drug Contraindication: N/A - Med Ordered
[2022-04-23 13:49] LABS: ~Lactic Acid-LAB USE ONLY 2.9 mmol/L (0.5-2.0)
[2022-04-23 15:37] VITALS: BP 101/70; PULSE 66; RESP 16; TEMP 36.8; O2SAT 97
[2022-04-23 16:01] LABS: Glucose, Whole Blood 68 mg/dL (60-115)
[2022-04-23 19:31] VITALS: BP 110/73; PULSE 67; RESP 17; TEMP 36.3; O2SAT 93
[2022-04-23 19:52] LABS: Glucose, Whole Blood 73 mg/dL (60-115)
[2022-04-23] MEDS: Atorvastatin Calcium 20 MG TABLET PO (22:06)
[2022-04-23] MEDS: Tamsulosin HCL 0.4 MG CAPSULE PO (22:06)
[2022-04-23] MEDS: Montelukast Sodium 10 MG TABLET PO (22:07)
[2022-04-23 22:15] LABS: Glucose, Whole Blood 78 mg/dL (60-115)
[2022-04-23 23:19] VITALS: BP 102/67; PULSE 67; RESP 16; TEMP 36.8; O2SAT 96
[2022-04-24] VITALS (7 sets, daily range): BP systolic 85–128; BP diastolic 50–73; PULSE 59–69; RESP 14–17; TEMP 36.1–36.8; O2SAT 93–98
[2022-04-24] MEDS: cefEPime HCl 2 GM in 0.9 % Sodium Chloride 50 ML IV ×2 (05:39→17:57)
[2022-04-24 06:52] LABS: Imm Gran Abs Auto 0.03 X10*3/uL (0.00-0.03); Imm Gran Pct Auto 0.4 % (0.0-0.4); PLT CLUMP 1; SCAN SMEAR FLAG 1
[2022-04-24 06:54] LABS: Basophils Absolute Auto 0.1 X10*3/uL (0.0-0.2); Basophils Percent Auto 0.9 % (0-2); Eosinophils Absolute Auto 0.2 X10*3/uL (0.0-0.4); Eosinophils Percent Auto 2.5 % (0-4); Hematocrit 50.2 % (42.0-52.0); Hemoglobin 15.7 g/dl (14.0-18.0); Lymphocytes Absolute Auto 1.7 X10*3/uL (1.2-4.9); Lymphocytes Percent Auto 20.4 % (20-40); Mean Corpuscular HGB Conc 31.3 g/dl (31.0-36.0); Mean Corpuscular Hemoglobin 27.3 pg (27.0-33.0); Mean Corpuscular Volume 87.2 fL (80.0-98.0); Mean Platelet Volume 10.4 fL (9.4-12.4); Monocytes Percent Auto 12.1 % (2-11); Neutrophils Absolute Auto 5.4 x10*3/uL (2.0-8.3); Neutrophils Percent Auto 63.7 % (45-73); Red Blood Count 5.76 X10*6/uL (4.60-5.80); Red Cell Distribution Width 23.7 % (11.0-16.0)
[2022-04-24 07:07] LABS: MANUAL DIFF FLAG NO; Platelet Count 129 X10*3/uL (160-400); White Blood Count 8.5 X10*3/uL (4.8-10.8)
[2022-04-24 07:25] LABS: Glucose, Whole Blood 86 mg/dL (60-115)
[2022-04-24 07:33] LABS: Alanine Aminotransferase 100 U/L (0-40); Albumin Level 2.8 g/dL (3.5-5.0); Alkaline Phosphatase 129 U/L (39-117); Anion Gap 15 (12-20); Aspartate Amino Transferase 251 U/L (5-37); Bilirubin Total 2.4 mg/dL (0.0-1.0); Blood Urea Nitrogen 13 mg/dL (9-16); Calcium 8.3 mg/dL (8.4-10.2); Carbon Dioxide 33 mmol/L (22-29); Chloride 91 mmol/L (96-108); Creatinine Clr Calc Pharmacy 90.8; Estimated Glomerular Filt Rate > 60; Glucose Fasting 80 mg/dL (60-99); Potassium 3.4 mmol/L (3.3-5.1); Sodium 136 mmol/L (135-145); Total Protein 6.1 g/dL (6.5-8.0)
[2022-04-24] MEDS: Doxycycline Hyclate 100 MG in 0.9 % Sodium Chloride 250 ML 166.67 MG IV ×2 (07:36→18:44)
[2022-04-24] MEDS: Zinc Sulfate 220 MG CAPSULE PO (09:41)
[2022-04-24] MEDS: Gabapentin 100 MG CAPSULE 200 MG PO (09:41)
[2022-04-24] MEDS: Aspirin Enteric Coated 81 MG TABLET.DR PO (09:42)
[2022-04-24] MEDS: methADONE HCl 20 MG/2 ML ORAL.CONC 50 MG PO (09:42)
[2022-04-24] MEDS: Famotidine 20 MG TABLET PO (09:42)
[2022-04-24] MEDS: carvediloL 6.25 MG TABLET PO (09:42)
[2022-04-24] MEDS: Sacubitril/Valsartan 24/26 1 TAB TABLET PO (09:42)
[2022-04-24] MEDS: Bumetanide 1 MG TABLET 2 MG PO (09:42)
[2022-04-24] MEDS: Loratadine 10 MG TABLET PO (09:42)
[2022-04-24] MEDS: Clopidogrel Bisulfate 75 MG TABLET PO (09:42)
[2022-04-24] MEDS: Spironolactone 25 MG TABLET 12.5 MG PO (09:43)
--- NOTE | 2022-04-24 09:56 | HO.PM.IMPN ---
Subjective Subjective Date of Service: 04/24/22 Interval History: no acute issues overnight. Remains compliant with therapy Review of Systems denies chest pain Denies shortness of breath Denies nausea vomiting diarrhea Denies fever chills Physical Exam Vital Signs: Vital Signs: Last Vital Signs Temp 98.3 F 04/24/22 07:25 Pulse 62 04/24/22 07:25 Resp 16 04/24/22 07:25 BP 113/73 04/24/22 07:25 Pulse Ox 97 04/24/22 07:25 O2 Del Method 04/24/22 07:25 BMI result Body Mass Index 25.4 Const: Other: awake alert no acute distress Resp: Other: clear to auscultation bilaterally no rales rhonchi or wheezes Cardio: Other: no S4; positive S1-S2; no S3 murmurs rubs or gallops GI: Other: soft nontender nondistended normoactive bow Extrem: Other: no edema left lower extremity see ER photos for details of wound Objective Data Active Medications Albuterol Sulfate (Albuterol Sulfate 90 Mcg 8 Gm Inhaler) 2 puff INHALE Q4H PRN PRN Reason: dyspnea Aspirin (Aspirin Enteric Coated 81 Mg Tablet.) 81 mg PO DAILY [facility] Last Admin: 04/24/22 09:42 Dose: 81 mg Documented By: MAURY Atorvastatin Calcium (Atorvastatin Calcium 20 Mg Tablet) 20 mg PO BEDTIME [facility] Last Admin: 04/23/22 22:06 Dose: 20 mg Documented By: JOEL Bumetanide (Bumetanide 1 Mg Tablet) 2 mg PO BID [facility]; Protocol Last Admin: 04/24/22 09:42 Dose: 2 mg Documented By: MAURY Carvedilol (Carvedilol 6.25 Mg Tablet) 6.25 mg PO BID [facility]; Protocol Last Admin: 04/24/22 09:42 Dose: 6.25 mg Documented By: MAURY Clopidogrel Bisulfate (Clopidogrel Bisulfate 75 Mg Tablet) 75 mg PO DAILY [facility] Last Admin: 04/24/22 09:42 Dose: 75 mg Documented By: MAURY Famotidine (Famotidine 20 Mg Tablet) 20 mg PO BID [facility] Last Admin: 04/24/22 09:42 Dose: 20 mg Documented By: MAURY Gabapentin (Gabapentin 100 Mg Capsule) 200 mg PO TID [facility] Last Admin: 04/24/22 09:41 Dose: 200 mg Documented By: MAURY Heparin Sodium (Porcine) (Heparin Sodium,Porcine 5,000 Unit/Ml Vial) 5,000 unit SUBCUT Q8H [facility] Last Admin: 04/24/22 02:50 Dose: Not Given Documented By: RACHAEL Non-Admin Reason: Patient Refused Cefepime HCl 2 gm/ Sodium (Chloride) 50 mls @ 100 mls/hr IV Q12H [facility] Last Infusion: 04/24/22 07:44 Dose: 0 mls/hr Documented By: MAURY Doxycycline Hyclate 100 mg/ (Sodium Chloride) 250 mls @ 166.67 mls/hr IV Q12H [facility] Last Infusion: 04/24/22 09:49 Dose: 0 mls/hr Documented By: MAURY Insulin Glargine (Insulin Glargine,Hum.Rec.Anlog 100 Unit/Ml 10 Ml Vial) 12 unit SUBCUT BEDTIME [facility] Last Admin: 04/23/22 22:11 Dose: Not Given Documented By: JOEL Non-Admin Reason: Physician Held Med Insulin Human Lispro (Insulin Lispro 100 Unit/Ml 3 Ml Vial) 5 unit SUBCUT TIDAC [facility] Last Admin: 04/24/22 07:36 Dose: Not Given Documented By: MAURY Non-Admin Reason: nursing judgment Insulin Human Lispro (Insulin Lispro 100 Unit/Ml 3 Ml Vial) 0 unit SUBCUT QIDACHS [facility]; Protocol Last Admin: 04/24/22 07:36 Dose: Not Given Documented By: MAURY Non-Admin Reason: No Insulin Coverage Lidocaine (Lidocaine 4 % Patch Adh..Patch) 1 patch TRANSDERMA DAILY [facility] Last Admin: 04/24/22 09:46 Dose: Not Given Documented By: MAURY Non-Admin Reason: Patient Refused Loratadine (Loratadine 10 Mg Tablet) 10 mg PO DAILY [facility] Last Admin: 04/24/22 09:42 Dose: 10 mg Documented By: MAURY Methadone HCl (Methadone Hcl 20 Mg/2 Ml Oral.Conc) 50 mg PO DAILY [facility] Last Admin: 04/24/22 09:42 Dose: 50 mg Documented By: MAURY Montelukast Sodium (Montelukast Sodium 10 Mg Tablet) 10 mg PO BEDTIME [facility] Last Admin: 04/23/22 22:07 Dose: 10 mg Documented By: JOEL Pharmacy Consult (Consult Rx Vancomycin Dosing) 1 each MISCELLANE DAILY PRN PRN Reason: Consult order Pharmacy Consult (Consult Rx Perform Med Rec) 1 each MISCELLANE ONCE PRN PRN Reason: Consult order Sacubitril/Valsartan (Sacubitril/Valsartan 1 Tab Tablet) 1 tab PO BID [facility]; Protocol Last Admin: 04/24/22 09:42 Dose: 1 tab Documented By: MAURY Sodium Chloride (0.9 % Sodium Chloride Flush 3 Ml Syringe) 3 ml IVFLUSH QSHIFT [facility] Last Admin: 04/24/22 09:40 Dose: Not Given Documented By: MAURY Non-Admin Reason: IV Running Spironolactone (Spironolactone 25 Mg Tablet) 12.5 mg PO DAILY [facility]; Protocol Last Admin: 04/24/22 09:43 Dose: 12.5 mg Documented By: MAURY Tamsulosin HCl (Tamsulosin Hcl 0.4 Mg Capsule) 0.4 mg PO BEDTIME [facility] Last Admin: 04/23/22 22:06 Dose: 0.4 mg Documented By: JOEL Zinc Sulfate (Zinc Sulfate 220 Mg Capsule) 220 mg PO DAILY [facility] Last Admin: 04/24/22 09:41 Dose: 220 mg Documented By: MAURY Labs CBC & Chem 7: 04/24/22 06:32 04/24/22 06:32 Labs: Laboratory Results - last 24 hr 04/23/22 04/23/22 04/23/22 09:41 11:14 13:20 MCV MCH MCHC RDW Plt Count MPV Immature Gran % (Auto) Neut % (Auto) Lymph % (Auto) Ashley % (Auto) Eos % (Auto) Baso % (Auto) Lymph # (Auto) Ashley # (Auto) Eos # (Auto) Baso # (Auto) Abs Immat Gran (auto) Absolute Neuts (auto) Absolute Nucleated RBC Nucleated RBC % (auto) Anion Gap Estim Creat Clear Calc Estimated GFR POC Glucose 190 H Fasting Glucose Lactic Acid F/U @ 2Hr 3.7 H* Lactic Acid F/U @ 4Hr 2.9 H* Calcium Total Bilirubin AST ALT Alkaline Phosphatase Total Protein Albumin 04/23/22 04/23/22 04/23/22 15:41 19:33 22:06 MCV MCH MCHC RDW Plt Count MPV Immature Gran % (Auto) Neut % (Auto) Lymph % (Auto) Ashley % (Auto) Eos % (Auto) Baso % (Auto) Lymph # (Auto) Ashley # (Auto) Eos # (Auto) Baso # (Auto) Abs Immat Gran (auto) Absolute Neuts (auto) Absolute Nucleated RBC Nucleated RBC % (auto) Anion Gap Estim Creat Clear Calc Estimated GFR POC Glucose 68 73 78 Fasting Glucose Lactic Acid F/U @ 2Hr Lactic Acid F/U @ 4Hr Calcium Total Bilirubin AST ALT Alkaline Phosphatase Total Protein Albumin 04/24/22 04/24/22 04/24/22 06:32 06:32 07:20 MCV 87.2 MCH 27.3 MCHC 31.3 RDW 23.7 H Plt Count 129 L MPV 10.4 Immature Gran % (Auto) 0.4 Neut % (Auto) 63.7 Lymph % (Auto) 20.4 Ashley % (Auto) 12.1 H Eos % (Auto) 2.5 Baso % (Auto) 0.9 Lymph # (Auto) 1.7 Ashley # (Auto) 1.0 Eos # (Auto) 0.2 Baso # (Auto) 0.1 Abs Immat Gran (auto) 0.03 Absolute Neuts (auto) 5.4 Absolute Nucleated RBC 0.000 Nucleated RBC % (auto) 0.0 Anion Gap 15 Estim Creat Clear Calc 90.8 Estimated GFR > 60 POC Glucose 86 Fasting Glucose 80 Lactic Acid F/U @ 2Hr Lactic Acid F/U @ 4Hr Calcium 8.3 L Total Bilirubin 2.4 H AST 251 H ALT 100 H Alkaline Phosphatase 129 H Total Protein 6.1 L Albumin 2.8 L Microbiology Microbiology Results: Microbiology 04/22/22 17:43 Gram Stain - Final Toe Left Great Routine Culture - Preliminary Gram negative ryan 04/22/22 17:18 Blood Culture - Preliminary Blood - Venous No growth after 24 hours. 04/22/22 17:18 Blood Culture - Preliminary Blood - Venous No growth after 24 hours. Assessment and Plan (1) Osteomyelitis of great toe: Status: Acute (2) Transaminitis: Status: Acute (3) Diabetes mellitus, type 2: Status: Acute Plan 51-year-old male with known history of diabetes insulin dependent and peripheral vascular disease presents today with left great toe wound which he states he did while scratching toe. Traditionally a poor historian. ER workup consistent with osteomyelitis. 1. Osteomyelitis left great toe - cefepime/ doxycycline pending ID consult - MRI left foot to verify osteomyelitis - await blood and wound cultures 2.Transaminitis - likely secondary to antibiotics - will trend... await ID consult 3. Diabetes type 2 - continue outpatient insulin regimen... adjust as indicated - lispro correctional scale - ADA diet 4. Opioid use disorder - care team consult to verify methadone order in a.m. 5. Urinary retention - continue indwelling Alberts Heparin Full code Will require ongoing hospitalization for IV antibiotics to treat osteomyelitis Quality Stroke Does the patient have a stroke diagnosis?: No VTE Prior VTE?: No VTE Risk Level:: Medical - moderate - high VTE Device Contraindication: Treatment Not Indicated VTE Drug Contraindication: N/A - Med Ordered
[2022-04-24 11:27] LABS: Glucose, Whole Blood 168 mg/dL (60-115)
[2022-04-24] MEDS: Insulin Lispro 100 UNIT/ML 3 ML VIAL SUBCUT (11:51)
[2022-04-24 16:13] LABS: Glucose, Whole Blood 91 mg/dL (60-115)
[2022-04-24] MEDS: 0.9 % Sodium Chloride Flush 3 ML SYRINGE IVFLUSH ×2 (17:58→21:50)
[2022-04-24 20:30] LABS: Glucose, Whole Blood 74 mg/dL (60-115)
[2022-04-25] VITALS (8 sets, daily range): BP systolic 96–119; BP diastolic 58–70; PULSE 57–81; RESP 14–20; TEMP 36.2–36.8; O2SAT 94–100
--- NOTE | 2022-04-25 04:09 | PC.NURSE ---
Pt seen on bed alert and oriented x3, denies any pain nor lightheadedness, BP= 85/50 , POC 74, NPO but pt iis non compliant, denies any nausea nor abd pain, Dr. Mccullough was updated, Coreg,Bumex , insulin and entresto were held as per MD, juice given to boost sugar and tolerated, rest of meds refused by pt, MD made aware, BP was rechecked vgbgu=070/70.
[2022-04-25] MEDS: cefEPime HCl 2 GM in 0.9 % Sodium Chloride 50 ML IV ×2 (05:23→16:39)
[2022-04-25] MEDS: Doxycycline Hyclate 100 MG in 0.9 % Sodium Chloride 250 ML 166.67 MG IV ×2 (06:01→17:46)
[2022-04-25 07:02] LABS: MANUAL DIFF FLAG NO
[2022-04-25 07:17] LABS: Basophils Absolute Auto 0.1 X10*3/uL (0.0-0.2); Basophils Percent Auto 0.8 % (0-2); Eosinophils Absolute Auto 0.2 X10*3/uL (0.0-0.4); Eosinophils Percent Auto 2.9 % (0-4); Hematocrit 41.5 % (42.0-52.0); Hemoglobin 13.3 g/dl (14.0-18.0); Imm Gran Abs Auto 0.03 X10*3/uL (0.00-0.03); Imm Gran Pct Auto 0.4 % (0.0-0.4); Lymphocytes Absolute Auto 1.4 X10*3/uL (1.2-4.9); Lymphocytes Percent Auto 18.6 % (20-40); Mean Corpuscular Volume 87.4 fL (80.0-98.0); Mean Platelet Volume 11.5 fL (9.4-12.4); Monocytes Percent Auto 13.5 % (2-11); Neutrophils Absolute Auto 4.8 x10*3/uL (2.0-8.3); Neutrophils Percent Auto 63.8 % (45-73); Platelet Count 160 X10*3/uL (160-400); Red Blood Count 4.75 X10*6/uL (4.60-5.80); Red Cell Distribution Width 23.2 % (11.0-16.0); White Blood Count 7.5 X10*3/uL (4.8-10.8)
[2022-04-25 07:32] LABS: Alanine Aminotransferase 68 U/L (0-40); Albumin Level 2.7 g/dL (3.5-5.0); Alkaline Phosphatase 109 U/L (39-117); Anion Gap 11 (12-20); Aspartate Amino Transferase 141 U/L (5-37); Bilirubin Total 2.1 mg/dL (0.0-1.0); Blood Urea Nitrogen 13 mg/dL (9-16); Calcium 8.2 mg/dL (8.4-10.2); Carbon Dioxide 42 mmol/L (22-29); Chloride 86 mmol/L (96-108); Creatinine Clr Calc Pharmacy 84.3; Estimated Glomerular Filt Rate > 60; Glucose Fasting 151 mg/dL (60-99); Potassium 3.2 mmol/L (3.3-5.1); Sodium 136 mmol/L (135-145); Total Protein 5.6 g/dL (6.5-8.0)
[2022-04-25 07:34] LABS: Glucose, Whole Blood 140 mg/dL (60-115)
[2022-04-25] MEDS: Insulin Lispro 100 UNIT/ML 3 ML VIAL SUBCUT ×2 (09:28→20:01)
[2022-04-25] MEDS: 0.9 % Sodium Chloride Flush 3 ML SYRINGE IVFLUSH ×2 (09:32→16:41)
[2022-04-25] MEDS: methADONE HCl 20 MG/2 ML ORAL.CONC 50 MG PO (09:32)
[2022-04-25] MEDS: Bumetanide 1 MG TABLET 2 MG PO ×2 (09:33→20:05)
[2022-04-25] MEDS: Spironolactone 25 MG TABLET 12.5 MG PO (09:33)
[2022-04-25] MEDS: Famotidine 20 MG TABLET PO ×2 (09:33→20:02)
[2022-04-25] MEDS: Zinc Sulfate 220 MG CAPSULE PO (09:33)
[2022-04-25] MEDS: carvediloL 6.25 MG TABLET PO ×2 (09:33→20:06)
[2022-04-25] MEDS: Clopidogrel Bisulfate 75 MG TABLET PO (09:33)
[2022-04-25] MEDS: Gabapentin 100 MG CAPSULE 200 MG PO ×3 (09:33→20:02)
[2022-04-25] MEDS: Sacubitril/Valsartan 24/26 1 TAB TABLET PO ×2 (09:33→20:06)
[2022-04-25] MEDS: Loratadine 10 MG TABLET PO (09:33)
[2022-04-25] MEDS: Lidocaine 4 % Patch ADH..PATCH 1 PATCH TRANSDERMA (09:34)
--- NOTE | 2022-04-25 10:04 | MHC.CM.PN ---
Addendum entered by Crissy Rubin 04/25/22 16:15: CM ATTEMPTED TO SEE PT MULTIPLE TIMES, PT OFF UNIT NUTRITION MANAGER COMPLETED USING EMR PT LIVES ALONE AND HAS A [employer] FLEX DEVELOPER AND [facility] FOR DAILY METHADONE DELIVERY. PT IS COVID-19 VACCINATED WITH MODERNA X 2 PCP @ [facility] DCP TBD STR HAS NOT BEEN DISCUSSED NOT DEEMED NECESSARY AT THIS TIME DC HOME WITH RESUMOPTION OF SERVICES VS STR PT USUALLY REQUESTS A CHAIR VAN HOME HOWEVER HE HAS ALSO HAD HIS SPONSOR PROVIDE TRANSPORT Original Note: CM RECEIVED A CALL FROM NEMESIO, PTS ICT CUSTOMER SUPPORT OFFICER FROM [employer]. SHE REPORTS SHE HAS BEEN HAVING A DIFFICULT TIME MANAGING PT AT HOME SHE REPORTS HIS HOME CONDITION IS NOT GOOD SHE SAYS HE RENTS A SMALL ROOM AND SOMETIMES THEY HAVE TO CLEAN IT FOR HIM DUE TO HIS INABILITY TO DO SO SHE REPORTS THEY WERE HOPING HE COULD GO TO STR PRIOR TO RETURNING HOME CM INFORMED HER THIS WOULD BE DISCUSSED WITH PT
--- NOTE | 2022-04-25 10:15 | P.PNIM_ITS ---
Subjective Subjective Date of Service: 04/25/22 Interval History: episode of vomiting overnight; this a.m. feels markedly improved. . Remains afebrile Review of Systems Denies chest pain Denies shortness of breath Denies nausea vomiting diarrhea Denies fever chills Physical Exam Vital Signs: Vital Signs: Last Vital Signs Temp 97.2 F 04/25/22 08:00 Pulse 78 04/25/22 08:00 Resp 16 04/25/22 08:00 BP 103/68 04/25/22 08:00 Pulse Ox 94 04/25/22 08:00 O2 Del Method 04/25/22 08:00 BMI result Body Mass Index 25.4 Const: Other: awake alert no acute distress Resp: Other: clear to auscultation bilaterally no rales rhonchi or wheezes Cardio: Other: no S4; positive S1-S2; no S3 murmurs rubs or gallops GI: Other: soft nontender nondistended normoactive bow Extrem: Other: no edema left lower extremity see ER photos for details of wound Objective Data Active Medications Albuterol Sulfate (Albuterol Sulfate 90 Mcg 8 Gm Inhaler) 2 puff INHALE Q4H PRN PRN Reason: dyspnea Aspirin (Aspirin Enteric Coated 81 Mg Tablet.) 81 mg PO DAILY [facility] Last Admin: 04/24/22 09:42 Dose: 81 mg Documented By: MAURY Atorvastatin Calcium (Atorvastatin Calcium 20 Mg Tablet) 20 mg PO BEDTIME [facility] Last Admin: 04/24/22 21:57 Dose: Not Given Documented By: BENJI Non-Admin Reason: Patient Refused Bumetanide (Bumetanide 1 Mg Tablet) 2 mg PO BID [facility]; Protocol Last Admin: 04/25/22 09:33 Dose: 2 mg Documented By: SMITH Carvedilol (Carvedilol 6.25 Mg Tablet) 6.25 mg PO BID [facility]; Protocol Last Admin: 04/25/22 09:33 Dose: 6.25 mg Documented By: SMITH Clopidogrel Bisulfate (Clopidogrel Bisulfate 75 Mg Tablet) 75 mg PO DAILY [facility] Last Admin: 04/25/22 09:33 Dose: 75 mg Documented By: SMITH Famotidine (Famotidine 20 Mg Tablet) 20 mg PO BID [facility] Last Admin: 04/25/22 09:33 Dose: 20 mg Documented By: SMITH Gabapentin (Gabapentin 100 Mg Capsule) 200 mg PO TID [facility] Last Admin: 04/25/22 09:33 Dose: 200 mg Documented By: SMITH Heparin Sodium (Porcine) (Heparin Sodium,Porcine 5,000 Unit/Ml Vial) 5,000 unit SUBCUT Q8H [facility] Last Admin: 04/25/22 03:11 Dose: Not Given Documented By: BENJI Non-Admin Reason: Patient Refused Cefepime HCl 2 gm/ Sodium (Chloride) 50 mls @ 100 mls/hr IV Q12H [facility] Last Infusion: 04/25/22 05:57 Dose: 0 mls/hr Documented By: BENJI Doxycycline Hyclate 100 mg/ (Sodium Chloride) 250 mls @ 166.67 mls/hr IV Q12H [facility] Last Infusion: 04/25/22 09:35 Dose: 0 mls/hr Documented By: SMITH Insulin Glargine (Insulin Glargine,Hum.Rec.Anlog 100 Unit/Ml 10 Ml Vial) 12 unit SUBCUT BEDTIME [facility] Last Admin: 04/24/22 21:55 Dose: Not Given Documented By: BENJI Non-Admin Reason: BP and sugar low, Dr. Mccullough aware Insulin Human Lispro (Insulin Lispro 100 Unit/Ml 3 Ml Vial) 5 unit SUBCUT TIDAC [facility] Last Admin: 04/25/22 09:28 Dose: 5 unit Documented By: SMITH Insulin Human Lispro (Insulin Lispro 100 Unit/Ml 3 Ml Vial) 0 unit SUBCUT QIDACHS [facility]; Protocol Last Admin: 04/25/22 09:31 Dose: Not Given Documented By: SMITH Non-Admin Reason: No Insulin Coverage Lidocaine (Lidocaine 4 % Patch Adh..Patch) 1 patch TRANSDERMA DAILY [facility] Last Admin: 04/25/22 09:34 Dose: 1 patch Documented By: SMITH Loratadine (Loratadine 10 Mg Tablet) 10 mg PO DAILY [facility] Last Admin: 04/25/22 09:33 Dose: 10 mg Documented By: SMITH Methadone HCl (Methadone Hcl 20 Mg/2 Ml Oral.Conc) 50 mg PO DAILY [facility] Last Admin: 04/25/22 09:32 Dose: 50 mg Documented By: SMITH Montelukast Sodium (Montelukast Sodium 10 Mg Tablet) 10 mg PO BEDTIME [facility] Last Admin: 04/24/22 21:57 Dose: Not Given Documented By: BENJI Non-Admin Reason: Patient Refused Pharmacy Consult (Consult Rx Vancomycin Dosing) 1 each MISCELLANE DAILY PRN PRN Reason: Consult order Pharmacy Consult (Consult Rx Perform Med Rec) 1 each MISCELLANE ONCE PRN PRN Reason: Consult order Sacubitril/Valsartan (Sacubitril/Valsartan 1 Tab Tablet) 1 tab PO BID [facility]; Protocol Last Admin: 04/25/22 09:33 Dose: 1 tab Documented By: SMITH Sodium Chloride (0.9 % Sodium Chloride Flush 3 Ml Syringe) 3 ml IVFLUSH QSHIFT [facility] Last Admin: 04/25/22 09:32 Dose: 3 ml Documented By: SMITH Spironolactone (Spironolactone 25 Mg Tablet) 12.5 mg PO DAILY [facility]; Protocol Last Admin: 04/25/22 09:33 Dose: 12.5 mg Documented By: SMITH Tamsulosin HCl (Tamsulosin Hcl 0.4 Mg Capsule) 0.4 mg PO BEDTIME [facility] Last Admin: 04/24/22 21:58 Dose: Not Given Documented By: BENJI Non-Admin Reason: Patient Refused Zinc Sulfate (Zinc Sulfate 220 Mg Capsule) 220 mg PO DAILY [facility] Last Admin: 04/25/22 09:33 Dose: 220 mg Documented By: SMITH Labs CBC & Chem 7: 04/25/22 06:45 04/25/22 06:45 Labs: Laboratory Results - last 24 hr 04/24/22 04/24/22 04/24/22 11:23 15:51 19:32 MCV MCH MCHC RDW Plt Count MPV Immature Gran % (Auto) Neut % (Auto) Lymph % (Auto) [place] % (Auto) Eos % (Auto) Baso % (Auto) Lymph # (Auto) [place] # (Auto) Eos # (Auto) Baso # (Auto) Abs Immat Gran (auto) Absolute Neuts (auto) Absolute Nucleated RBC Nucleated RBC % (auto) Anion Gap Estim Creat Clear Calc Estimated GFR POC Glucose 168 H 91 74 Fasting Glucose Calcium Total Bilirubin AST ALT Alkaline Phosphatase Total Protein Albumin 04/25/22 04/25/22 04/25/22 06:45 06:45 07:30 MCV 87.4 MCH 28.0 MCHC 32.0 RDW 23.2 H Plt Count 160 MPV 11.5 Immature Gran % (Auto) 0.4 Neut % (Auto) 63.8 Lymph % (Auto) 18.6 L [place] % (Auto) 13.5 H Eos % (Auto) 2.9 Baso % (Auto) 0.8 Lymph # (Auto) 1.4 [place] # (Auto) 1.0 Eos # (Auto) 0.2 Baso # (Auto) 0.1 Abs Immat Gran (auto) 0.03 Absolute Neuts (auto) 4.8 Absolute Nucleated RBC 0.000 Nucleated RBC % (auto) 0.0 Anion Gap 11 L Estim Creat Clear Calc 84.3 Estimated GFR > 60 POC Glucose 140 H Fasting Glucose 151 H D Calcium 8.2 L Total Bilirubin 2.1 H AST 141 H ALT 68 H Alkaline Phosphatase 109 Total Protein 5.6 L Albumin 2.7 L Microbiology Microbiology Results: Microbiology 04/22/22 17:43 Gram Stain - Final Toe Left Great Routine Culture - Final Escherichia coli Klebsiella oxytoca 04/22/22 17:18 Blood Culture - Preliminary Blood - Venous No growth after 48 hours. 04/22/22 17:18 Blood Culture - Preliminary Blood - Venous No growth after 48 hours. Assessment and Plan (1) Osteomyelitis of great toe: Status: Acute (2) Transaminitis: Status: Acute (3) Diabetes mellitus, type 2: Status: Acute (4) Opiate abuse, continuous: Status: Acute Plan 51-year-old male with known history of diabetes insulin dependent and peripheral vascular disease presents today with left great toe wound which he states he did while scratching toe. Traditionally a poor historian. ER workup consistent with osteomyelitis. 1. Osteomyelitis left great toe - cefepime/ doxycycline pending ID consult - MRI left foot to verify osteomyelitis - await blood and wound cultures - vascular consult 2.Transaminitis - likely secondary to antibiotics - will trend... await ID consult 3. Diabetes type 2 - continue outpatient insulin regimen... adjust as indicated - lispro correctional scale - ADA diet 4. Opioid use disorder - care team consult to verify methadone order in a.m. 5. Urinary retention - continue indwelling Alberts Heparin Full code Will require ongoing hospitalization for IV antibiotics to treat osteomyelitis Quality Stroke Does the patient have a stroke diagnosis?: No VTE Prior VTE?: No VTE Risk Level:: Medical - moderate - high VTE Device Contraindication: Treatment Not Indicated VTE Drug Contraindication: N/A - Med Ordered
[2022-04-25] MEDS: Aspirin Enteric Coated 81 MG TABLET.DR PO (10:46)
--- NOTE | 2022-04-25 10:50 | PM.CNGS ---
History of Present Illness Consult details Consult date: 04/25/22 Reason for consult: wound care Narrative: Complex 51-year-old gentleman well known to me with prior history of peripheral vascular disease opioid abuse which is currently on methadone maintenance, Congestive heart failure, and diabetes presented to the hospital with nonhealing left great toe ulcer. Upon discussion with him he denies any trauma he denies any pain but the great toe has an ulcer within. He now presents to us for vascular evaluation. Review of Systems Review of Systems: Yes all other systems are reviewed and are negative Constitutional: Constitutional: Reports no additional constitutional complaints ENT: Reports Normal hearing present Cardiovascular: Cardiovascular: Denies chest pain, Denies chest pain at rest, Denies chest pain with activity and Denies pedal edema Respiratory: Respiratory: Denies cough Gastrointestinal: Gastrointestinal: Denies abdominal pain Musculoskeletal: Musculoskeletal: Denies abnormal gait, Denies muscle cramps and Denies radiating pain into limb Integumentary/Breasts: Skin/Breast: Denies skin ulcer and Denies wounds Neurologic: Reports Normal hearing present and Denies abnormal gait Psychiatric: Psychiatric: Reports no additional psychiatric complaints [facility] Past Medical History Medical History (Updated 04/25/22 @ 10:19 by Wilfred Dueñas DO) Abscess or cellulitis of foot Acute on chronic anemia Acute on chronic combined systolic and diastolic congestive heart failure Acute on chronic HFrEF (heart failure with reduced ejection fraction) Acute respiratory failure with hypoxia Asthma Bipolar 1 disorder BPH (benign prostatic hyperplasia) CHF (congestive heart failure) CHF exacerbation Cholelithiasis Closed wedge compression fracture of T9 vertebra COPD (chronic obstructive pulmonary disease) Diabetes mellitus Diabetes mellitus, type 2 Elevated troponin GERD (gastroesophageal reflux disease) Hyperlipidemia Ischemic cardiomyopathy Lymphadenopathy Opiate abuse, continuous Osteomyelitis Peripheral arterial disease Peripheral neuropathy Peripheral vascular disease Substance abuse Tracheomalacia, acquired Family History Family History Father Chronic mental illness Hypertension Asthma Stroke Mother Asthma Diabetes Coronary artery disease Surgical History Surgical History History of amputation History of laminectomy History of transurethral resection of prostate Hx of BKA Social History Social History Household Members: Unknown / Unable to assess Housing: House Housing Other:: IN A LITTLE ROOM Do you presently have visiting nurse or other home services: No Unable to assess alcohol history related to: Refusing to respond Alcohol intake: unknown Patient Tobacco Use Status: Never used Tobacco e-Cigarette/Vaping Use: Never Used Second Hand Smoke Exposure: No Substance Use Type: Opiates Advance Directives Date on File: 11/24/20 service: No Current occupational status: disabled Meds Allergies Allergy/AdvReac Type Severity Reaction Status Date / Time ertapenem Allergy Intermediate Hives Verified 02/21/22 18:40 vancomycin [VANCOMYCIN] Allergy Intermediate HIVES Verified 02/21/22 18:40 Chocolate Allergy Unknown Rash Verified 02/21/22 18:40 ciprofloxacin [From CIPRO] Allergy Unknown SWELLING Verified 02/21/22 18:40 hydrocortisone [Cipro HC] Allergy Unknown Unknown Verified 02/21/22 18:40 sulfamethoxazole Allergy Unknown rash Verified 02/21/22 18:40 [From BACTRIM] trimethoprim [From BACTRIM] Allergy Unknown rash Verified 02/21/22 18:40 turkey [TURKEY] Allergy Unknown RASH Verified 02/21/22 18:40 Active Medications: Current Medications Albuterol Sulfate (Albuterol Sulfate 90 Mcg 8 Gm Inhaler) 2 puff INHALE Q4H PRN PRN Reason: dyspnea Aspirin (Aspirin Enteric Coated 81 Mg Tablet.) 81 mg PO DAILY [facility] Last Admin: 04/24/22 09:42 Dose: 81 mg Atorvastatin Calcium (Atorvastatin Calcium 20 Mg Tablet) 20 mg PO BEDTIME [facility] Last Admin: 04/24/22 21:57 Dose: Not Given Bumetanide (Bumetanide 1 Mg Tablet) 2 mg PO BID [facility]; Protocol Last Admin: 04/25/22 09:33 Dose: 2 mg Carvedilol (Carvedilol 6.25 Mg Tablet) 6.25 mg PO BID [facility]; Protocol Last Admin: 04/25/22 09:33 Dose: 6.25 mg Clopidogrel Bisulfate (Clopidogrel Bisulfate 75 Mg Tablet) 75 mg PO DAILY [facility] Last Admin: 04/25/22 09:33 Dose: 75 mg Famotidine (Famotidine 20 Mg Tablet) 20 mg PO BID [facility] Last Admin: 04/25/22 09:33 Dose: 20 mg Gabapentin (Gabapentin 100 Mg Capsule) 200 mg PO TID [facility] Last Admin: 04/25/22 09:33 Dose: 200 mg Heparin Sodium (Porcine) (Heparin Sodium,Porcine 5,000 Unit/Ml Vial) 5,000 unit SUBCUT Q8H [facility] Last Admin: 04/25/22 03:11 Dose: Not Given Cefepime HCl 2 gm/ Sodium (Chloride) 50 mls @ 100 mls/hr IV Q12H [facility] Last Infusion: 04/25/22 05:57 Dose: Infused Doxycycline Hyclate 100 mg/ (Sodium Chloride) 250 mls @ 166.67 mls/hr IV Q12H [facility] Last Infusion: 04/25/22 09:35 Dose: Infused Insulin Glargine (Insulin Glargine,Hum.Rec.Anlog 100 Unit/Ml 10 Ml Vial) 12 unit SUBCUT BEDTIME [facility] Last Admin: 04/24/22 21:55 Dose: Not Given Insulin Human Lispro (Insulin Lispro 100 Unit/Ml 3 Ml Vial) 5 unit SUBCUT TIDAC [facility] Last Admin: 04/25/22 09:28 Dose: 5 unit Insulin Human Lispro (Insulin Lispro 100 Unit/Ml 3 Ml Vial) 0 unit SUBCUT QIDACHS [facility]; Protocol Last Admin: 04/25/22 09:31 Dose: Not Given Lidocaine (Lidocaine 4 % Patch Adh..Patch) 1 patch TRANSDERMA DAILY [facility] Last Admin: 04/25/22 09:34 Dose: 1 patch Loratadine (Loratadine 10 Mg Tablet) 10 mg PO DAILY [facility] Last Admin: 04/25/22 09:33 Dose: 10 mg Methadone HCl (Methadone Hcl 20 Mg/2 Ml Oral.Conc) 50 mg PO DAILY [facility] Last Admin: 04/25/22 09:32 Dose: 50 mg Montelukast Sodium (Montelukast Sodium 10 Mg Tablet) 10 mg PO BEDTIME [facility] Last Admin: 04/24/22 21:57 Dose: Not Given Pharmacy Consult (Consult Rx Vancomycin Dosing) 1 each MISCELLANE DAILY PRN PRN Reason: Consult order Pharmacy Consult (Consult Rx Perform Med Rec) 1 each MISCELLANE ONCE PRN PRN Reason: Consult order Sacubitril/Valsartan (Sacubitril/Valsartan 1 Tab Tablet) 1 tab PO BID [facility]; Protocol Last Admin: 04/25/22 09:33 Dose: 1 tab Sodium Chloride (0.9 % Sodium Chloride Flush 3 Ml Syringe) 3 ml IVFLUSH QSHIFT [facility] Last Admin: 04/25/22 09:32 Dose: 3 ml Spironolactone (Spironolactone 25 Mg Tablet) 12.5 mg PO DAILY [facility]; Protocol Last Admin: 04/25/22 09:33 Dose: 12.5 mg Tamsulosin HCl (Tamsulosin Hcl 0.4 Mg Capsule) 0.4 mg PO BEDTIME [facility] Last Admin: 04/24/22 21:58 Dose: Not Given Zinc Sulfate (Zinc Sulfate 220 Mg Capsule) 220 mg PO DAILY [facility] Last Admin: 04/25/22 09:33 Dose: 220 mg Home Medications Medication Instructions Recorded Confirmed Last Taken Type albuterol sulfate 90 mcg/actuation 2 puff inhalation Q4-6H PRN dyspnea 03/08/22 04/22/22 Unknown History aerosol inhaler (ProAir HFA) aspirin 81 mg tablet,delayed 1 tab PO QAM 03/08/22 04/22/22 Unknown History release atorvastatin 20 mg tablet 1 tab PO BEDTIME 03/08/22 04/22/22 Unknown History carvedilol 6.25 mg tablet 1 tab PO BID 03/08/22 04/22/22 Unknown History cetirizine 10 mg tablet 1 tab PO QAM 03/08/22 04/22/22 Unknown History clopidogrel 75 mg tablet 1 tab PO QAM 03/08/22 04/22/22 Unknown History famotidine 20 mg tablet 1 tab PO BID 03/08/22 04/22/22 Unknown History fluticasone 500 mcg-salmeterol 50 1 puff PO BID 03/08/22 04/22/22 Unknown History mcg/dose blistr powdr for inhalation (Advair Diskus) fluticasone propionate 50 1 - 2 spray intranasal DAILY PRN 03/08/22 04/22/22 Unknown History mcg/actuation nasal Allergy Symptoms spray,suspension furosemide 40 mg tablet 1 tab PO DAILY 03/08/22 04/22/22 Unknown History gabapentin 100 mg capsule 2 cap PO TID 03/08/22 04/22/22 Unknown History insulin aspart U-100 100 unit/mL 5 unit subcut TID 03/08/22 04/22/22 Unknown History (3 mL) subcutaneous pen (Novolog Flexpen U-100 Insulin aspart) insulin glargine 100 unit/mL (3 12 unit subcut BEDTIME 03/08/22 04/22/22 03/07/22 History mL) subcutaneous pen (Lantus Solostar U-100 Insulin) lidocaine 5 % topical patch 1 patch topical DAILY 03/08/22 04/22/22 Unknown History (Lidoderm) methadone 10 mg/mL oral concentrate 52 mg PO DAILY 03/08/22 04/18/22 03/08/22 History montelukast 10 mg tablet 1 tab PO QPM 03/08/22 04/22/22 Unknown History spironolactone 25 mg tablet 0.5 tab PO QAM 03/08/22 04/22/22 Unknown History tamsulosin 0.4 mg capsule 1 cap PO QPM 03/08/22 04/22/22 Unknown History zinc sulfate 50 mg zinc (220 mg) 1 cap PO DAILY 03/08/22 04/22/22 Unknown History capsule bumetanide 2 mg tablet 2 mg PO BID 03/30/22 04/22/22 Unknown History sacubitril 24 mg-valsartan 26 mg 1 tab PO BID 03/30/22 04/22/22 Unknown History tablet (Entresto) Physical Exam Vital Signs: Vital Signs: Last Vital Signs Temp 97.2 F 04/25/22 08:00 Pulse 78 04/25/22 08:00 Resp 16 04/25/22 08:00 BP 103/68 04/25/22 08:00 Pulse Ox 94 04/25/22 08:00 O2 Del Method 04/25/22 08:00 BMI result Body Mass Index 25.4 Const: General: cooperative, healthy appearing and comfortable Orientation/consciousness: oriented to person, oriented to place and oriented to time HEENT: Head: Yes normal to inspection Neck: Neck: Yes normal visual inspection Carotids: no bruits Chest: Chest palpation & inspection: normal inspection of the chest Resp: Effort & Inspection: normal respiratory effort and able to speak in complete sentences Auscultation: clear to auscultation bilaterally, no crackles, no rales, no rhonchi and no wheezes Cardio: Rate: regular rate Rhythm: regular rhythm Heart sounds: S1 normal heart sound present and S2 normal heart sound present Bruits: no carotid bruits Peripheral pulses: dorsalis pedis present (Bilateral DP signals only) GI: Inspection: Yes normal to inspection Skin: Other: Left great toe ulcer which is most a straight line appears to be more of an avulsion as opposed to a chronic ulcer. Wounds: no wounds Hair: normal Neuro: General: oriented to person, oriented to place and oriented to time Cranial nerves: Yes CN's II-XII intact bilaterally and Yes Normal hearing present Cognition (Neuro): normal cognition Motor exam (neuro): 5/5 motor strength present throughout Extrem: Other: venous exam: No significant superficial varicosities or spider telangiectasias, minimal edema General: No clubbing, No cyanosis and No edema Psych: Appearance: grossly normal Mental Status: mental status grossly normal Speech and movement: Normal speech and movement present Results Labs Result diagrams: 04/25/22 06:45 04/25/22 06:45 Labs: Abnormal lab results 04/24/22 04/25/22 04/25/22 Range/Units 11:23 06:45 06:45 Hgb 13.3 L (14.0-18.0) g/dl Hct 41.5 L (42.0-52.0) % RDW 23.2 H (11.0-16.0) % Lymph % (Auto) 18.6 L (20-40) % [place] % (Auto) 13.5 H (2-11) % Potassium 3.2 L (3.3-5.1) mmol/L Chloride 86 L (96-108) mmol/L Carbon Dioxide 42 H* D (22-29) mmol/L Anion Gap 11 L (12-20) POC Glucose 168 H (60-115) mg/dL Fasting Glucose 151 H D (60-99) mg/dL Calcium 8.2 L (8.4-10.2) mg/dL Total Bilirubin 2.1 H (0.0-1.0) mg/dL AST 141 H (5-37) U/L ALT 68 H (0-40) U/L Total Protein 5.6 L (6.5-8.0) g/dL Albumin 2.7 L (3.5-5.0) g/dL 04/25/22 Range/Units 07:30 Hgb (14.0-18.0) g/dl Hct (42.0-52.0) % RDW (11.0-16.0) % Lymph % (Auto) (20-40) % [place] % (Auto) (2-11) % Potassium (3.3-5.1) mmol/L Chloride (96-108) mmol/L Carbon Dioxide (22-29) mmol/L Anion Gap (12-20) POC Glucose 140 H (60-115) mg/dL Fasting Glucose (60-99) mg/dL Calcium (8.4-10.2) mg/dL Total Bilirubin (0.0-1.0) mg/dL AST (5-37) U/L ALT (0-40) U/L Total Protein (6.5-8.0) g/dL Albumin (3.5-5.0) g/dL Short CBC 04/25/22 Range/Units 06:45 WBC 7.5 (4.8-10.8) X10*3/uL Hgb 13.3 L (14.0-18.0) g/dl Hct 41.5 L (42.0-52.0) % Plt Count 160 (160-400) X10*3/uL BMP 04/25/22 06:45 Sodium 136 Potassium 3.2 L Chloride 86 L Carbon Dioxide 42 H* D BUN 13 Creatinine 0.98 Calcium 8.2 L Liver Function 04/25/22 Range/Units 06:45 Total Bilirubin 2.1 H (0.0-1.0) mg/dL AST 141 H (5-37) U/L ALT 68 H (0-40) U/L Alkaline Phosphatase 109 (39-117) U/L Albumin 2.7 L (3.5-5.0) g/dL Urine 04/22/22 Range/Units 17:18 Urine Color DK YELLOW Urine Appearance HAZY Urine pH 5.5 (5.0-8.0) Ur Specific [place] >= 1.030 H (1.005-1.025) Urine Protein 2+ H (NEG-TRACE) MG/DL Urine Glucose (UA) NEG (NEG) MG/DL All other labs normal. Assessment and Plan (1) Peripheral arterial disease: Status: Acute Plan In short patient has a nonhealing left great toe ulceration. He has had prior endovascular intervention on that leg in September of 2021. It is unclear if this is chronic or more but acute traumatic avulsion. At the current time MRI is pending. In addition I have taken the liberty of ordering noninvasive arterial testing. This was discussed in detail with the patient with it business systems analyst present. He is concerned and eager to be discharged. Will follow up with him once testing is performed. Thank you for allowing us to assist in his care. Procedures Date of Service Date of Service: 04/25/22
[2022-04-25 11:18] LABS: Glucose, Whole Blood 42 mg/dL (60-115)
[2022-04-25 11:44] LABS: Glucose, Whole Blood 73 mg/dL (60-115)
[2022-04-25 16:37] LABS: Glucose, Whole Blood 134 mg/dL (60-115)
--- NOTE | 2022-04-25 19:21 | PC.NURSE ---
Pt alert and oriented x3. Blood sugar this at 0730 was 140. Af 1130 his blood sugar was 40. notified via [employer] connect. OJ and vinay crackers given. Blood sugar rechecked after 15mins and it was up to 73. Diet changed to Regular diet. MRI done this pm with a +result of acute Osteomylitis. At dinner time, pt ate and then vomited x1. Tried encourage the pt not to eat anything else for a short while but he refused.
[2022-04-25 19:37] LABS: Glucose, Whole Blood 165 mg/dL (60-115)
[2022-04-25] MEDS: Insulin Glargine,Hum.rec.anlog 100 UNIT/ML 10 ML VIAL 12 UNIT SUBCUT (20:01)
[2022-04-25] MEDS: Tamsulosin HCL 0.4 MG CAPSULE PO (20:01)
[2022-04-25] MEDS: Montelukast Sodium 10 MG TABLET PO (20:02)
[2022-04-25] MEDS: Atorvastatin Calcium 20 MG TABLET PO (20:02)
[2022-04-26 03:40] VITALS: BP 100/63; PULSE 69; RESP 18; TEMP 36.2; O2SAT 93
[2022-04-26] MEDS: cefEPime HCl 2 GM in 0.9 % Sodium Chloride 50 ML IV ×2 (05:32→17:53)
[2022-04-26] MEDS: Doxycycline Hyclate 100 MG in 0.9 % Sodium Chloride 250 ML 166.67 MG IV ×2 (06:14→18:34)
[2022-04-26 06:19] LABS: MANUAL DIFF FLAG NO
[2022-04-26 06:27] LABS: Basophils Percent Auto 0.5 % (0-2); Eosinophils Absolute Auto 0.4 X10*3/uL (0.0-0.4); Eosinophils Percent Auto 4.7 % (0-4); Hematocrit 40.9 % (42.0-52.0); Imm Gran Abs Auto 0.03 X10*3/uL (0.00-0.03); Imm Gran Pct Auto 0.4 % (0.0-0.4); Lymphocytes Absolute Auto 1.7 X10*3/uL (1.2-4.9); Lymphocytes Percent Auto 22.2 % (20-40); Mean Corpuscular HGB Conc 31.8 g/dl (31.0-36.0); Mean Corpuscular Hemoglobin 27.7 pg (27.0-33.0); Mean Corpuscular Volume 87.2 fL (80.0-98.0); Mean Platelet Volume 10.7 fL (9.4-12.4); Monocytes Absolute Auto 1.5 X10*3/uL (0.1-1.2); Monocytes Percent Auto 19.2 % (2-11); Platelet Count 147 X10*3/uL (160-400); Red Blood Count 4.69 X10*6/uL (4.60-5.80); Red Cell Distribution Width 23.2 % (11.0-16.0); White Blood Count 7.6 X10*3/uL (4.8-10.8)
[2022-04-26 07:19] LABS: Alanine Aminotransferase 55 U/L (0-40); Albumin Level 2.8 g/dL (3.5-5.0); Alkaline Phosphatase 106 U/L (39-117); Anion Gap 13 (12-20); Aspartate Amino Transferase 102 U/L (5-37); Bilirubin Total 1.6 mg/dL (0.0-1.0); Blood Urea Nitrogen 13 mg/dL (9-16); Calcium 8.1 mg/dL (8.4-10.2); Carbon Dioxide 42 mmol/L (22-29); Chloride 85 mmol/L (96-108); Creatinine Clr Calc Pharmacy 76.5; Estimated Glomerular Filt Rate > 60; Glucose Fasting 78 mg/dL (60-99); Potassium 3.5 mmol/L (3.3-5.1); Sodium 136 mmol/L (135-145); Total Protein 5.9 g/dL (6.5-8.0)
[2022-04-26 07:21] LABS: Glucose, Whole Blood 97 mg/dL (60-115)
[2022-04-26 07:31] VITALS: BP 99/58; PULSE 70; RESP 17; TEMP 36.5; O2SAT 100
[2022-04-26] MEDS: Famotidine 20 MG TABLET PO ×2 (07:50→19:55)
[2022-04-26] MEDS: carvediloL 6.25 MG TABLET PO ×2 (07:50→19:55)
[2022-04-26] MEDS: Loratadine 10 MG TABLET PO (07:50)
[2022-04-26] MEDS: Spironolactone 25 MG TABLET 12.5 MG PO (07:51)
[2022-04-26] MEDS: Bumetanide 1 MG TABLET 2 MG PO ×2 (07:51→19:54)
[2022-04-26] MEDS: Aspirin Enteric Coated 81 MG TABLET.DR PO (07:51)
[2022-04-26] MEDS: Zinc Sulfate 220 MG CAPSULE PO (07:51)
[2022-04-26] MEDS: Sacubitril/Valsartan 24/26 1 TAB TABLET PO ×2 (07:51→19:56)
[2022-04-26] MEDS: Clopidogrel Bisulfate 75 MG TABLET PO (07:51)
[2022-04-26] MEDS: methADONE HCl 20 MG/2 ML ORAL.CONC 50 MG PO (07:51)
[2022-04-26] MEDS: Gabapentin 100 MG CAPSULE 200 MG PO ×2 (07:51→19:55)
[2022-04-26] MEDS: 0.9 % Sodium Chloride Flush 3 ML SYRINGE IVFLUSH ×3 (07:55→19:56)
--- NOTE | 2022-04-26 09:17 | HO.PM.IMPN ---
Subjective Subjective Date of Service: 04/26/22 Review of Systems Follow up osteomyelitis eating breakfast , reporting intermittent nausea no pain Physical Exam Vital Signs: Vital Signs: Last Vital Signs Temp 97.7 F 04/26/22 07:31 Pulse 70 04/26/22 07:31 Resp 17 04/26/22 07:31 BP 99/58 L 04/26/22 07:31 Pulse Ox 100 04/26/22 07:31 O2 Del Method 04/26/22 07:31 BMI result Body Mass Index 25.4 Appearing in no acute distress lung sounds are clear to auscultation heart regular rate rhythm, clear S1, S2 positive bowel sounds, abdomen is soft, nontender neuro patient is alert x3, no focal deficits Right leg BKA Objective Data Active Medications Albuterol Sulfate (Albuterol Sulfate 90 Mcg 8 Gm Inhaler) 2 puff INHALE Q4H PRN PRN Reason: dyspnea Aspirin (Aspirin Enteric Coated 81 Mg Tablet.) 81 mg PO DAILY [facility] Last Admin: 04/26/22 07:51 Dose: 81 mg Documented By: HILARY Atorvastatin Calcium (Atorvastatin Calcium 20 Mg Tablet) 20 mg PO BEDTIME [facility] Last Admin: 04/25/22 20:02 Dose: 20 mg Documented By: CASTILM Bumetanide (Bumetanide 1 Mg Tablet) 2 mg PO BID [facility]; Protocol Last Admin: 04/26/22 07:51 Dose: 2 mg Documented By: HILARY Carvedilol (Carvedilol 6.25 Mg Tablet) 6.25 mg PO BID [facility]; Protocol Last Admin: 04/26/22 07:50 Dose: 6.25 mg Documented By: HILARY Clopidogrel Bisulfate (Clopidogrel Bisulfate 75 Mg Tablet) 75 mg PO DAILY [facility] Last Admin: 04/26/22 07:51 Dose: 75 mg Documented By: HILARY Famotidine (Famotidine 20 Mg Tablet) 20 mg PO BID [facility] Last Admin: 04/26/22 07:50 Dose: 20 mg Documented By: HILARY Gabapentin (Gabapentin 100 Mg Capsule) 200 mg PO TID [facility] Last Admin: 04/26/22 07:51 Dose: 200 mg Documented By: HILARY Heparin Sodium (Porcine) (Heparin Sodium,Porcine 5,000 Unit/Ml Vial) 5,000 unit SUBCUT Q8H [facility] Last Admin: 04/26/22 02:25 Dose: Not Given Documented By: BENJI Non-Admin Reason: Patient Refused Cefepime HCl 2 gm/ Sodium (Chloride) 50 mls @ 100 mls/hr IV Q12H [facility] Last Infusion: 04/26/22 06:20 Dose: 0 mls/hr Documented By: BENJI Doxycycline Hyclate 100 mg/ (Sodium Chloride) 250 mls @ 166.67 mls/hr IV Q12H [facility] Last Infusion: 04/26/22 08:16 Dose: 0 mls/hr Documented By: HILARY Insulin Glargine (Insulin Glargine,Hum.Rec.Anlog 100 Unit/Ml 10 Ml Vial) 12 unit SUBCUT BEDTIME [facility] Last Admin: 04/25/22 20:01 Dose: 12 unit Documented By: BENJI Insulin Human Lispro (Insulin Lispro 100 Unit/Ml 3 Ml Vial) 0 unit SUBCUT QIDACHS [facility]; Protocol Last Admin: 04/26/22 07:23 Dose: Not Given Documented By: HILARY Non-Admin Reason: No Insulin Coverage Lidocaine (Lidocaine 4 % Patch Adh..Patch) 1 patch TRANSDERMA DAILY [facility] Last Admin: 04/26/22 07:55 Dose: Not Given Documented By: HILARY Non-Admin Reason: Patient Refused Loratadine (Loratadine 10 Mg Tablet) 10 mg PO DAILY [facility] Last Admin: 04/26/22 07:50 Dose: 10 mg Documented By: HILARY Methadone HCl (Methadone Hcl 20 Mg/2 Ml Oral.Conc) 50 mg PO DAILY [facility] Last Admin: 04/26/22 07:51 Dose: 50 mg Documented By: HILARY Montelukast Sodium (Montelukast Sodium 10 Mg Tablet) 10 mg PO BEDTIME [facility] Last Admin: 04/25/22 20:02 Dose: 10 mg Documented By: BENJI Pharmacy Consult (Consult Rx Vancomycin Dosing) 1 each MISCELLANE DAILY PRN PRN Reason: Consult order Pharmacy Consult (Consult Rx Perform Med Rec) 1 each MISCELLANE ONCE PRN PRN Reason: Consult order Sacubitril/Valsartan (Sacubitril/Valsartan 1 Tab Tablet) 1 tab PO BID [facility]; Protocol Last Admin: 04/26/22 07:51 Dose: 1 tab Documented By: HILARY Sodium Chloride (0.9 % Sodium Chloride Flush 3 Ml Syringe) 3 ml IVFLUSH QSHIFT [facility] Last Admin: 04/26/22 07:55 Dose: 3 ml Documented By: HILARY Spironolactone (Spironolactone 25 Mg Tablet) 12.5 mg PO DAILY [facility]; Protocol Last Admin: 04/26/22 07:51 Dose: 12.5 mg Documented By: HILARY Tamsulosin HCl (Tamsulosin Hcl 0.4 Mg Capsule) 0.4 mg PO BEDTIME [facility] Last Admin: 04/25/22 20:01 Dose: 0.4 mg Documented By: CASTILM Zinc Sulfate (Zinc Sulfate 220 Mg Capsule) 220 mg PO DAILY [facility] Last Admin: 04/26/22 07:51 Dose: 220 mg Documented By: HILARY Labs CBC & Chem 7: 04/26/22 05:44 04/26/22 05:44 Labs: Laboratory Results - last 24 hr 04/25/22 04/25/22 04/25/22 11:11 11:39 16:33 MCV MCH MCHC RDW Plt Count MPV Immature Gran % (Auto) Neut % (Auto) Lymph % (Auto) Kimball % (Auto) Eos % (Auto) Baso % (Auto) Lymph # (Auto) Kimball # (Auto) Eos # (Auto) Baso # (Auto) Abs Immat Gran (auto) Absolute Neuts (auto) Absolute Nucleated RBC Nucleated RBC % (auto) Anion Gap Estim Creat Clear Calc Estimated GFR POC Glucose 42 L* 73 134 H Fasting Glucose Calcium Total Bilirubin AST ALT Alkaline Phosphatase Total Protein Albumin 04/25/22 04/26/22 04/26/22 19:30 05:44 05:44 MCV 87.2 MCH 27.7 MCHC 31.8 RDW 23.2 H Plt Count 147 L MPV 10.7 Immature Gran % (Auto) 0.4 Neut % (Auto) 53.0 Lymph % (Auto) 22.2 Kimball % (Auto) 19.2 H Eos % (Auto) 4.7 H Baso % (Auto) 0.5 Lymph # (Auto) 1.7 Kimball # (Auto) 1.5 H Eos # (Auto) 0.4 Baso # (Auto) 0.0 Abs Immat Gran (auto) 0.03 Absolute Neuts (auto) 4.0 Absolute Nucleated RBC 0.000 Nucleated RBC % (auto) 0.0 Anion Gap 13 Estim Creat Clear Calc 76.5 Estimated GFR > 60 POC Glucose 165 H Fasting Glucose 78 D Calcium 8.1 L Total Bilirubin 1.6 H AST 102 H ALT 55 H Alkaline Phosphatase 106 Total Protein 5.9 L Albumin 2.8 L 04/26/22 07:16 MCV MCH MCHC RDW Plt Count MPV Immature Gran % (Auto) Neut % (Auto) Lymph % (Auto) Kimball % (Auto) Eos % (Auto) Baso % (Auto) Lymph # (Auto) Kimball # (Auto) Eos # (Auto) Baso # (Auto) Abs Immat Gran (auto) Absolute Neuts (auto) Absolute Nucleated RBC Nucleated RBC % (auto) Anion Gap Estim Creat Clear Calc Estimated GFR POC Glucose 97 Fasting Glucose Calcium Total Bilirubin AST ALT Alkaline Phosphatase Total Protein Albumin Microbiology Microbiology Results: Microbiology 04/22/22 17:43 Gram Stain - Final Toe Left Great Routine Culture - Final Escherichia coli Klebsiella oxytoca Assessment and Plan (1) Osteomyelitis of great toe: Status: Acute (2) Transaminitis: Status: Acute (3) Diabetes mellitus, type 2: Status: Acute (4) Opiate abuse, continuous: Status: Acute Plan 51-year-old male with known history of diabetes insulin dependent and peripheral vascular disease presents today with left great toe wound which he states he did while scratching toe. Traditionally a poor historian. ER workup consistent with osteomyelitis. Osteomyelitis left great toe cefepime/ doxycycline MRI left foot showing osteomyelitis wound culture showing E coli and Klebsiella oxytoca ESBL negative vascular following ID consult pending VANCE showed some perfusion issues, angio sched for tomorrow, discussed with vascular NPO after midnight Transaminitis likely secondary to antibiotics trending down Diabetes type 2 ada diet, ss, lantus Opioid use disorder started on methadone seen by care team Urinary retention. chronic continue indwelling [employer] Heparin Full code Attending Dr. Jin Will require ongoing hospitalization for IV antibiotics to treat osteomyelitis Quality Stroke Does the patient have a stroke diagnosis?: No VTE Prior VTE?: No VTE Risk Level:: Medical - moderate - high VTE Device Contraindication: Treatment Not Indicated VTE Drug Contraindication: N/A - Med Ordered
[2022-04-26 11:15] VITALS: BP 99/53; PULSE 60; RESP 18; TEMP 36.8; O2SAT 93
[2022-04-26 11:21] LABS: Glucose, Whole Blood 118 mg/dL (60-115)
--- NOTE | 2022-04-26 12:57 | HO.VASCPN ---
Subjective Subjective Date of Service: 04/26/22 Patient reports: no new complaints and feels better Interval history: 51-year-old gentleman well known to me with prior history of endovascular intervention presents with nonhealing left great toe ulcer. Of note he has a history of diabetes. Most recently had MRI which was positive for osteomyelitis. In addition he has had noninvasive arterial testing. Physical Exam Vital Signs: Vital Signs: Last Vital Signs Temp 98.2 F 04/26/22 11:15 Pulse 60 04/26/22 11:15 Resp 18 04/26/22 11:15 BP 99/53 L 04/26/22 11:15 Pulse Ox 93 04/26/22 11:15 O2 Del Method 04/26/22 11:15 BMI result Body Mass Index 25.4 Const: General: cooperative, healthy appearing and comfortable Orientation/consciousness: oriented to person, oriented to place and oriented to time HEENT: Head: Yes normal to inspection Neck: Neck: Yes normal visual inspection Carotids: no bruits Chest: Chest palpation & inspection: normal inspection of the chest Resp: Effort & Inspection: normal respiratory effort and able to speak in complete sentences Auscultation: clear to auscultation bilaterally, no crackles, no rales, no rhonchi and no wheezes Cardio: Rate: regular rate Rhythm: regular rhythm Heart sounds: S1 normal heart sound present and S2 normal heart sound present Bruits: no carotid bruits Peripheral pulses: dorsalis pedis present bilateral dopplerable GI: Inspection: Yes normal to inspection Skin: Wounds: wounds noted (Left great toe avulsion?) Hair: normal Neuro: General: oriented to person, oriented to place and oriented to time Cranial nerves: Yes CN's II-XII intact bilaterally and Yes Normal hearing present Cognition (Neuro): normal cognition Motor exam (neuro): 5/5 motor strength present throughout Extrem: Other: venous exam: No significant superficial varicosities or spider telangiectasias, minimal edema General: No clubbing, No cyanosis and No edema Psych: Appearance: grossly normal Mental Status: mental status grossly normal Speech and movement: Normal speech and movement present Progress Note: A&P Assessment and plan (1) Peripheral arterial disease: Status: Acute Assessment and Plan: Patient notes nonhealing left great toe ulcer. I have discussed the pathophysiology of peripheral vascular disease with the patient. I have also discussed risk factor modification. I have reviewed the patient's arterial testing which reveals VANCE of 0.76 but monophasic flow. the patient would benefit from a left leg endovascular peripheral angiogram with possible angioplasty, stent, and/or atherectomy. This has been discussed in detail with the patient along with risks, benefits, and complications. This includes but is not limited to bleeding, infection, heart attack, need for emergent surgical repair, limb ischemia, blood vessel damage, bleeding, puncture, kidney injury, bruising, allergic reaction, and skin reaction. The patient demonstrates a clear understanding. We will schedule for the next appropriate time. Thank you for allowing us to assist in this patient's care. Time Spent With Patient Time: Total time spent is greater than 50% in coordination of care (as documented) at patient's floor/unit and/or counseling patient: Procedures Date of Service Date of Service: 04/26/22 Quality Stroke Does the patient have a stroke diagnosis?: No VTE Prior VTE?: No VTE Risk Level:: Medical - moderate - high VTE Device Contraindication: Treatment Not Indicated VTE Drug Contraindication: N/A - Med Ordered
[2022-04-26 14:59] VITALS: BP 134/80; PULSE 68; RESP 20; TEMP 36.6; O2SAT 97
[2022-04-26 15:29] LABS: Glucose, Whole Blood 147 mg/dL (60-115)
[2022-04-26] MEDS: Montelukast Sodium 10 MG TABLET PO (19:55)
[2022-04-26] MEDS: Atorvastatin Calcium 20 MG TABLET PO (19:55)
[2022-04-26] MEDS: Tamsulosin HCL 0.4 MG CAPSULE PO (19:55)
[2022-04-26 20:25] LABS: Glucose, Whole Blood 165 mg/dL (60-115)
[2022-04-27] VITALS (10 sets, daily range): BP systolic 84–122; BP diastolic 42–83; PULSE 55–75; RESP 14–18; TEMP 36.1–36.8; O2SAT 90–98
--- NOTE | 2022-04-27 03:08 | PC.NURSE ---
Addendum entered by Susan Lange RN 04/27/22 06:53: HAd aa critical Bicarb=41, Dr. Grover was notified. Original Note: Pt had PRW=656 at bedtime, pt is NPO after MN for Angiogram in the morning, Dr. Grover was updated, Lispro coverage and Lantus was held.
[2022-04-27] MEDS: cefEPime HCl 2 GM in 0.9 % Sodium Chloride 50 ML IV ×2 (05:24→17:03)
[2022-04-27] MEDS: 0.9 % Sodium Chloride 1,000 ML 100 ML IVCONT ×2 (05:25→16:41)
[2022-04-27] MEDS: Doxycycline Hyclate 100 MG in 0.9 % Sodium Chloride 250 ML 166.67 MG IV ×2 (06:07→18:00)
[2022-04-27 06:33] LABS: Alanine Aminotransferase 43 U/L (0-40); Albumin Level 2.8 g/dL (3.5-5.0); Alkaline Phosphatase 100 U/L (39-117); Anion Gap 12 (12-20); Aspartate Amino Transferase 72 U/L (5-37); Bilirubin Total 1.6 mg/dL (0.0-1.0); Blood Urea Nitrogen 15 mg/dL (9-16); Calcium 8.4 mg/dL (8.4-10.2); Carbon Dioxide 39 mmol/L (22-29); Chloride 88 mmol/L (96-108); Creatinine Clr Calc Pharmacy 75.8; Estimated Glomerular Filt Rate > 60; Glucose Fasting 103 mg/dL (60-99); Potassium 3.2 mmol/L (3.3-5.1); Sodium 136 mmol/L (135-145)
[2022-04-27 06:36] LABS: Basophils Absolute Auto 0.1 X10*3/uL (0.0-0.2); Basophils Percent Auto 0.8 % (0-2); Eosinophils Absolute Auto 0.3 X10*3/uL (0.0-0.4); Eosinophils Percent Auto 4.4 % (0-4); Hematocrit 40.5 % (42.0-52.0); Hemoglobin 12.7 g/dl (14.0-18.0); Imm Gran Abs Auto 0.04 X10*3/uL (0.00-0.03); Imm Gran Pct Auto 0.6 % (0.0-0.4); Lymphocytes Absolute Auto 1.4 X10*3/uL (1.2-4.9); Lymphocytes Percent Auto 22.4 % (20-40); MANUAL DIFF FLAG SCAN; Mean Corpuscular HGB Conc 31.4 g/dl (31.0-36.0); Mean Corpuscular Hemoglobin 27.3 pg (27.0-33.0); Mean Corpuscular Volume 87.1 fL (80.0-98.0); Mean Platelet Volume 11.5 fL (9.4-12.4); Monocytes Absolute Auto 1.4 X10*3/uL (0.1-1.2); Monocytes Percent Auto 21.2 % (2-11); Neutrophils Absolute Auto 3.2 x10*3/uL (2.0-8.3); Neutrophils Percent Auto 50.6 % (45-73); Platelet Count 147 X10*3/uL (160-400); Red Blood Count 4.65 X10*6/uL (4.60-5.80); Red Cell Distribution Width 23.2 % (11.0-16.0); SCAN SMEAR FLAG 1; White Blood Count 6.4 X10*3/uL (4.8-10.8)
[2022-04-27 06:41] LABS: Anion Gap 12 (12-20); Blood Urea Nitrogen 15 mg/dL (9-16); Calcium 8.4 mg/dL (8.4-10.2); Carbon Dioxide 41 mmol/L (22-29); Chloride 87 mmol/L (96-108); Creatinine Clr Calc Pharmacy 77.2; Estimated Glomerular Filt Rate > 60; Glucose Random 104 mg/dL (60-115); Potassium 3.1 mmol/L (3.3-5.1); Sodium 137 mmol/L (135-145)
[2022-04-27 07:16] LABS: SLIDE REVIEW VERIFIED
[2022-04-27] MEDS: Sacubitril/Valsartan 24/26 1 TAB TABLET PO ×2 (07:20→21:00)
[2022-04-27] MEDS: Gabapentin 100 MG CAPSULE 200 MG PO ×2 (07:21→21:00)
[2022-04-27] MEDS: Bumetanide 1 MG TABLET 2 MG PO (07:21)
[2022-04-27] MEDS: Famotidine 20 MG TABLET PO ×2 (07:21→21:00)
[2022-04-27] MEDS: Spironolactone 25 MG TABLET 12.5 MG PO (07:22)
[2022-04-27] MEDS: methADONE HCl 20 MG/2 ML ORAL.CONC 50 MG PO (07:22)
[2022-04-27] MEDS: carvediloL 6.25 MG TABLET PO ×2 (07:22→21:00)
[2022-04-27 07:54] LABS: Glucose, Whole Blood 121 mg/dL (60-115)
[2022-04-27] MEDS: iohexoL 300 MG/ML 50 ML INFUS..BTL IV (10:56)
[2022-04-27] MEDS: iohexoL 300 MG/ML 100 ML INFUS..BTL IV (10:57)
--- NOTE | 2022-04-27 11:05 | P.OP_ITS ---
Operative Note Operative Note Date of Service: 04/27/22 Narrative: Angiogram report from [facility] Preoperative diagnosis: Atherosclerosis of left lower extremity with nonhealing ulcer Postoperative diagnosis: Same Procedure: 1. Ultrasound-guided right common femoral access 2. Aortogram with left lower extremity runoff 3. Angioplasty of left anterior tibial artery 4. Angioplasty of left popliteal artery Surgeon:Stan Vaughn M.D., FACS, RPVI Bee Farmer:None Anesthesia: Local with moderate conscious sedation. Total intraservice moderate sedation time was 58 minutes. I monitored the patient's level of consciousness and physiologic status continuously throughout the procedure. Specimens:none Drains:none Estimated blood loss: Less than 10 ml Implant: Medtronic chocolate balloon 2.5 x 80; Medtronic Impact 5 x 40 DCB Indications: 51-year-old gentleman with significant peripheral vascular disease history presents with a nonhealing left foot ulcer. He now presents for endovascular intervention The patient has signed the informed consent after reviewing risks, complications, benefits, and alternatives previously discussed with the patient. The patient was given the opportunity to ask any additional questions or voice any concerns. All questions were answered to the patient's satisfaction. Procedure in detail: Patient was brought to the angiography suite prior to which a time-out was called for patient identification and site verification. Bilateral groins were prepped and draped in the standard surgical fashion. Under ultrasound guidance right common femoral was punctured with micro puncture needle and wire. Subsequently a precision 5 [place] sheath was then placed. Bentson wire was advanced to the level of the aorta. 5 [place] Flush catheter was brought up and parked at the level of the renal arteries. Aortogram was then undertaken. Catheter was brought down to the level of the iliac bifurcation. Iliacs were subsequently imaged. Catheter was then brought in up and over to the left side SFA. Runoff study was then undertaken. Once this was accomplished we recognized his lesions in the left popliteal and anterior tibial. 4000 units of systemic heparin was administered. After 5 minutes of circulation times up and over 6 [place] sheath was then placed. Once this was done we advanced an [address] down to the popliteal. We then exchanged out for a trail Blazer catheter and confirmed true lumen. We were able to advance an 014 wire down the anterior tibial. We then plasty this area with a 2.5 x 80 Medtronic chocolate balloon. This was insufflated for a total of 2 minutes in duration. Once this was all accomplished we then exchanged from an 014 wire to an 035 wire. We then plasty did the P1 segment of the popliteal with an 5 x 40 regular balloon. Once this was done we then advanced a 5 x 40 drug coated balloon into the P1 segment of the popliteal. This was brought into position in under 3 minutes and insufflated for a total of 3 minutes in duration. Completion angiogram demonstrated excellent result. Catheter wire and sheath were brought back to the ipsilateral side. StarClose closure device was deployed. Patient tolerated the procedure well was returned to recovery with stable vitals. Interpretation of films: 1. Ultrasound demonstrates appropriate femoral puncture. Image of which was saved. 2. Aortogram demonstrates appropriate caliber aorta. Minimal disease. Appropriate take-off of the renals. 3. Iliac images demonstrate no significant disease 4. Left Leg Common femoral artery: No significant disease Profundus Femoris: No significant disease Superficial femoral artery: Minimal disease Popliteal artery (p1,p2,p3): P1 segment moderate disease Anterior tibial artery: Significant disease in the proximal segment occludes into the mid distal calf Peroneal artery: Dominant runoff Posterior tibial artery: Occluded Dorsalis pedis/plantar arch: In complete Conclusion: 1. Successful plasty of popliteal and anterior tibial artery 2. Anticoagulation status: To remain on aspirin and Plavix which he is already on This note is constructed using voice recognition software. While every effort has been made to ensure accuracy, boulevard glassware replacer errors may have been included. Thank you for allowing me to participate in the care of your patient. Yours sincerely, Stan Vaughn MD, FACS, R.P.V.I.
--- NOTE | 2022-04-27 11:19 | PM.EVENT ---
Event Note Date of Service: 04/27/22 Event Note: Patient has done well with his procedure. He will be required to continue with aspirin and Plavix. Continue with antibiotics and local care. He can follow up with me as an outpatient. Please note I will be away until Monday and Dr. Sneed as will be covering in the interim.
--- NOTE | 2022-04-27 11:53 | P.CDIC_ITS ---
CDI Concurrent Query Documentation Clarification: PHYSICIAN'S DOCUMENTATION REQUEST Date of Query: 04/27/22 1154 Patient Name: Dominik Hawk Admit Date: 04/22/22 Dear Doctor, A review of the medical record indicates additional documentation may be needed. Please review below and update the documentation accordingly. Clinical Indicators: Documentation on 04/22/22 indicates Osteomyelitis. Risk Factors/Clinical Indicators/Treatments Per H&P: Osteomyelitis left great toe Based on the above, please clarify in the Progress Notes further specificity regarding the type of Osteomyelitis. Also include specific site with laterality and known or suspected infectious agent: * Acute osteomyelitis * Acute hematogenous osteomyelitis * Subacute osteomyelitis * Chronic osteomyelitis * Chronic hemotogenous osteomyelitis * Chronic multifocal osteomyelitis * Other (please specify) * Unable to determine Use of terms such as suspected, likely, concern for, or probable (associated with a specific diagnosis that is being evaluated, monitored, or treated as if it exists) are acceptable and can be coded in the inpatient setting, when documented at the time of discharge. Thank you, Patricia Goodman RN Extension: [phone] Please use your independent medical judgment in providing your response. THIS QUERY IS PART OF THE PERMANENT MEDICAL RECORD Provider Response: Other Other Diagnosis: chronic left toe osteomyelitis
--- NOTE | 2022-04-27 12:51 | P.PNIM_ITS ---
Subjective Subjective Date of Service: 04/27/22 Interval History: return from left leg angiogram, postprocedure doing fine offers no acute complaints denies foot pain, tolerating diet, no acute events overnight. Review of Systems General no headache , no dizziness no fever chills. CVS no chest pain, no palpitation. Respiratory no cough, no sob. Gastrointestinal intermittent nausea and vomiting Review of Systems: Yes all other systems are reviewed and are negative Physical Exam Vital Signs: Vital Signs: Last Vital Signs Temp 97 F 04/27/22 12:00 Pulse 55 04/27/22 12:00 Resp 14 04/27/22 12:00 BP 88/57 L 04/27/22 12:00 Pulse Ox 96 04/27/22 12:00 O2 Del Method 04/27/22 12:00 BMI result Body Mass Index 25.4 Const: Other: General awake alert x3, in no acute distress. Neck no JVD. CVS regular rate rhythm, Respiratory lungs clear to auscultation, no respiratory distress, no wheeze, no rhonchi. Gastrointestinal abdomen soft, nontender, bowel sounds audible Extremities right BKA, left foot big toe ulcer, no drainage, no surrounding erythema Neuro nonfocal ,speech clear. Skin no rash psych appropriate affect Objective Data Active Medications Acetaminophen (Acetaminophen 325 Mg Tablet) 650 mg PO Q6H PRN PRN Reason: Pain, Mild (Pain Scale 1-3) Albuterol Sulfate (Albuterol Sulfate 90 Mcg 8 Gm Inhaler) 2 puff INHALE Q4H PRN PRN Reason: dyspnea Aspirin (Aspirin Enteric Coated 81 Mg Tablet.) 81 mg PO DAILY [facility] Last Admin: 04/27/22 07:12 Dose: Not Given Documented By: HILARY Non-Admin Reason: going to the OR Atorvastatin Calcium (Atorvastatin Calcium 20 Mg Tablet) 20 mg PO BEDTIME [facility] Last Admin: 04/26/22 19:55 Dose: 20 mg Documented By: CASTILM Bumetanide (Bumetanide 1 Mg Tablet) 2 mg PO BID [facility]; Protocol Last Admin: 04/27/22 07:21 Dose: 2 mg Documented By: HILARY Carvedilol (Carvedilol 6.25 Mg Tablet) 6.25 mg PO BID [facility]; Protocol Last Admin: 04/27/22 07:22 Dose: 6.25 mg Documented By: HILARY Clopidogrel Bisulfate (Clopidogrel Bisulfate 75 Mg Tablet) 75 mg PO DAILY [facility] Last Admin: 04/27/22 07:12 Dose: Not Given Documented By: HILARY Non-Admin Reason: going to the OR Famotidine (Famotidine 20 Mg Tablet) 20 mg PO BID [facility] Last Admin: 04/27/22 07:21 Dose: 20 mg Documented By: HILARY Gabapentin (Gabapentin 100 Mg Capsule) 200 mg PO TID [facility] Last Admin: 04/27/22 07:21 Dose: 200 mg Documented By: HILARY Heparin Sodium (Porcine) (Heparin Sodium,Porcine 5,000 Unit/Ml Vial) 5,000 unit SUBCUT Q8H [facility] Last Admin: 04/27/22 10:38 Dose: Not Given Documented By: HILARY Non-Admin Reason: Patient Refused Cefepime HCl 2 gm/ Sodium (Chloride) 50 mls @ 100 mls/hr IV Q12H [facility] Last Infusion: 04/27/22 06:08 Dose: 0 mls/hr Documented By: BENJI Doxycycline Hyclate 100 mg/ (Sodium Chloride) 250 mls @ 166.67 mls/hr IV Q12H [facility] Last Infusion: 04/27/22 07:51 Dose: 0 mls/hr Documented By: HILARY Sodium Chloride (Ns) 1,000 mls @ 100 mls/hr IVCONT .Q10H [facility] Last Admin: 04/27/22 05:25 Dose: 100 mls/hr Documented By: BENJI Insulin Glargine (Insulin Glargine,Hum.Rec.Anlog 100 Unit/Ml 10 Ml Vial) 12 unit SUBCUT BEDTIME [facility] Last Admin: 04/26/22 21:44 Dose: Not Given Documented By: BENJI Non-Admin Reason: NPO post [place], Dr. Grover was aware and agreed Insulin Human Lispro (Insulin Lispro 100 Unit/Ml 3 Ml Vial) 0 unit SUBCUT QIDACHS [facility]; Protocol Last Admin: 04/27/22 07:19 Dose: Not Given Documented By: HILARY Non-Admin Reason: No Insulin Coverage Lidocaine (Lidocaine 4 % Patch Adh..Patch) 1 patch TRANSDERMA DAILY [facility] Last Admin: 04/27/22 07:11 Dose: Not Given Documented By: HILARY Non-Admin Reason: Patient Refused Loratadine (Loratadine 10 Mg Tablet) 10 mg PO DAILY [facility] Last Admin: 04/27/22 07:12 Dose: Not Given Documented By: HILARY Non-Admin Reason: NPO Methadone HCl (Methadone Hcl 20 Mg/2 Ml Oral.Conc) 50 mg PO DAILY [facility] Last Admin: 04/27/22 07:22 Dose: 50 mg Documented By: HILARY Montelukast Sodium (Montelukast Sodium 10 Mg Tablet) 10 mg PO BEDTIME [facility] Last Admin: 04/26/22 19:55 Dose: 10 mg Documented By: BENJI Pharmacy Consult (Consult Rx Vancomycin Dosing) 1 each MISCELLANE DAILY PRN PRN Reason: Consult order Pharmacy Consult (Consult Rx Perform Med Rec) 1 each MISCELLANE ONCE PRN PRN Reason: Consult order Sacubitril/Valsartan (Sacubitril/Valsartan 1 Tab Tablet) 1 tab PO BID [facility]; Protocol Last Admin: 04/27/22 07:20 Dose: 1 tab Documented By: HILARY Sodium Chloride (0.9 % Sodium Chloride Flush 3 Ml Syringe) 3 ml IVFLUSH QSHIFT [facility] Last Admin: 04/27/22 07:11 Dose: Not Given Documented By: HILARY Non-Admin Reason: IV Running Spironolactone (Spironolactone 25 Mg Tablet) 12.5 mg PO DAILY [facility]; Protocol Last Admin: 04/27/22 07:22 Dose: 12.5 mg Documented By: HILARY Tamsulosin HCl (Tamsulosin Hcl 0.4 Mg Capsule) 0.4 mg PO BEDTIME [facility] Last Admin: 04/26/22 19:55 Dose: 0.4 mg Documented By: BENJI Zinc Sulfate (Zinc Sulfate 220 Mg Capsule) 220 mg PO DAILY [facility] Last Admin: 04/27/22 07:12 Dose: Not Given Documented By: HILARY Non-Admin Reason: NPO Labs CBC & Chem 7: 04/27/22 05:30 04/27/22 05:30 Labs: Laboratory Results - last 24 hr 04/26/22 04/26/22 04/27/22 15:04 20:18 05:30 MCV 87.1 MCH 27.3 MCHC 31.4 RDW 23.2 H Plt Count 147 L MPV 11.5 Immature Gran % (Auto) 0.6 H Neut % (Auto) 50.6 Lymph % (Auto) 22.4 Tucker % (Auto) 21.2 H Eos % (Auto) 4.4 H Baso % (Auto) 0.8 Lymph # (Auto) 1.4 Tucker # (Auto) 1.4 H Eos # (Auto) 0.3 Baso # (Auto) 0.1 Abs Immat Gran (auto) 0.04 H Absolute Neuts (auto) 3.2 Absolute Nucleated RBC 0.000 Nucleated RBC % (auto) 0.0 Smear Tech's Comments VERIFIED Anion Gap Estim Creat Clear Calc Estimated GFR POC Glucose 147 H 165 H Random Glucose Fasting Glucose Calcium Total Bilirubin AST ALT Alkaline Phosphatase Total Protein Albumin 04/27/22 04/27/22 04/27/22 05:30 05:30 07:14 MCV MCH MCHC RDW Plt Count MPV Immature Gran % (Auto) Neut % (Auto) Lymph % (Auto) Tucker % (Auto) Eos % (Auto) Baso % (Auto) Lymph # (Auto) Tucker # (Auto) Eos # (Auto) Baso # (Auto) Abs Immat Gran (auto) Absolute Neuts (auto) Absolute Nucleated RBC Nucleated RBC % (auto) Smear Tech's Comments Anion Gap 12 12 Estim Creat Clear Calc 75.8 77.2 Estimated GFR > 60 > 60 POC Glucose 121 H Random Glucose 104 Fasting Glucose 103 H Calcium 8.4 8.4 Total Bilirubin 1.6 H AST 72 H ALT 43 H Alkaline Phosphatase 100 Total Protein 6.0 L Albumin 2.8 L Assessment and Plan (1) Osteomyelitis of great toe: Status: Acute (2) Transaminitis: Status: Acute (3) Diabetes mellitus, type 2: Status: Acute (4) Opiate abuse, continuous: Status: Acute Plan 51-year-old male with known history of diabetes insulin dependent and perip heral vascular disease presents today with left great toe wound which he states he did while scratching toe. Traditionally a poor historian. ER workup consistent with osteomyelitis. Chronic osteomyelitis left great toe on iv cefepime/ doxycycline day 5, afebrile normal WBC MRI left foot showing osteomyelitis wound culture showing E coli and Klebsiella oxytoca ESBL negative patient undergo went left leg angiogram, and had left anterior tibial and left popliteal artery angioplasty by Dr. Vaughn will continue aspirin and Plavix, outpatient follow-up with vascular surgery await ID input for duration of antibiotic hypokalemia likely due to diuretics will replace and follow BMP alkalosis likely related to contraction alkalosis with soft blood pressures, on Bumex 2 mg b.i.d. and Aldactone, will hold Bumex evening dose and and resume Bumex low-dose from a.m. will give Diamox 250 b.i.d. 6 dosages Transaminitis trending down , on Lipitor, question related t ETOH intake Ch.Cardiomyopathy with low EF no acute exacerbate, on Coreg/ Entresto/ spironolactone/Bumex Diabetes type 2 is stable blood sugars continue ada diet, ss, lantus Opioid use disorder, on methadone/ being followed by care team Urinary retention. chronic continue indwelling Alberts, continue Flomax DVT prophylaxis with Heparin Full code Will require ongoing hospitalization for IV antibiotics to treat osteomyelitis. Quality Stroke Does the patient have a stroke diagnosis?: No VTE Prior VTE?: No VTE Risk Level:: Medical - moderate - high VTE Device Contraindication: Treatment Not Indicated VTE Drug Contraindication: N/A - Med Ordered
[2022-04-27] MEDS: Potassium Chloride ER 20 MEQ TAB.ER.PRT 60 MEQ PO (13:31)
[2022-04-27 13:37] LABS: Glucose, Whole Blood 115 mg/dL (60-115)
--- NOTE | 2022-04-27 14:11 | MHC.CM.PN ---
PATIENT UNDERGOING ANGIO TODAY [facility] UPDATED [facility]
--- NOTE | 2022-04-27 15:31 | MHC.CM.PN ---
[facility] WILL NOT ACCEPT PATIENT BACK SECONDARY TO MULTIPLE INCIDENCES OF HYPOGLYCEMIA AND DRUG USE. THEY ALSO STATE THAT PATIENT HAS NO SUPERVISION AT HOME
[2022-04-27 15:59] LABS: Glucose, Whole Blood 415 mg/dL (60-115)
[2022-04-27 16:38] LABS: Glucose, Whole Blood 181 mg/dL (60-115)
[2022-04-27] MEDS: Insulin Lispro 100 UNIT/ML 3 ML VIAL SUBCUT (16:40)
[2022-04-27 20:27] LABS: Glucose, Whole Blood 85 mg/dL (60-115)
[2022-04-27] MEDS: Atorvastatin Calcium 20 MG TABLET PO (21:00)
[2022-04-27] MEDS: Montelukast Sodium 10 MG TABLET PO (21:00)
[2022-04-27] MEDS: acetaZOLAMIDE 250 MG TABLET PO (21:00)
[2022-04-27] MEDS: Tamsulosin HCL 0.4 MG CAPSULE PO (21:00)
[2022-04-27 21:31] LABS: Glucose, Whole Blood 125 mg/dL (60-115)
[2022-04-28] VITALS: BP 110/59; PULSE 71; RESP 18; TEMP 36.4; O2SAT 100
[2022-04-28] MEDS: 0.9 % Sodium Chloride 1,000 ML 100 ML IVCONT (01:49)
--- NOTE | 2022-04-28 02:57 | PC.NURSE ---
Pt's blood sugar at 2009 on 04/27 was 85, Dr. Grover notified and Joe held. Dr. Grover wanted pt's blood sugar to be re-checked in an hour. After an hour it was 125, Dr. Grover notified and Joe still held.
[2022-04-28 04:00] VITALS: BP 109/71; PULSE 66; RESP 18; TEMP 36.3; O2SAT 100
[2022-04-28] MEDS: cefEPime HCl 2 GM in 0.9 % Sodium Chloride 50 ML IV ×2 (05:24→17:09)
[2022-04-28] MEDS: Doxycycline Hyclate 100 MG in 0.9 % Sodium Chloride 250 ML 166.67 MG IV ×2 (06:27→17:47)
[2022-04-28 06:30] LABS: MANUAL DIFF FLAG NO
[2022-04-28 06:41] LABS: Basophils Percent Auto 0.6 % (0-2); Eosinophils Absolute Auto 0.3 X10*3/uL (0.0-0.4); Eosinophils Percent Auto 5.1 % (0-4); Hematocrit 38.8 % (42.0-52.0); Imm Gran Abs Auto 0.02 X10*3/uL (0.00-0.03); Imm Gran Pct Auto 0.3 % (0.0-0.4); Lymphocytes Absolute Auto 1.4 X10*3/uL (1.2-4.9); Lymphocytes Percent Auto 21.2 % (20-40); Mean Corpuscular HGB Conc 30.9 g/dl (31.0-36.0); Mean Corpuscular Hemoglobin 27.3 pg (27.0-33.0); Mean Corpuscular Volume 88.4 fL (80.0-98.0); Mean Platelet Volume 10.7 fL (9.4-12.4); Monocytes Absolute Auto 1.2 X10*3/uL (0.1-1.2); Monocytes Percent Auto 17.7 % (2-11); Neutrophils Absolute Auto 3.6 x10*3/uL (2.0-8.3); Neutrophils Percent Auto 55.1 % (45-73); Platelet Count 123 X10*3/uL (160-400); Red Blood Count 4.39 X10*6/uL (4.60-5.80); White Blood Count 6.5 X10*3/uL (4.8-10.8)
[2022-04-28 07:18] LABS: Alanine Aminotransferase 33 U/L (0-40); Albumin Level 2.7 g/dL (3.5-5.0); Alkaline Phosphatase 91 U/L (39-117); Anion Gap 10 (12-20); Aspartate Amino Transferase 51 U/L (5-37); Bilirubin Total 1.5 mg/dL (0.0-1.0); Blood Urea Nitrogen 16 mg/dL (9-16); Calcium 8.6 mg/dL (8.4-10.2); Carbon Dioxide 34 mmol/L (22-29); Chloride 94 mmol/L (96-108); Estimated Glomerular Filt Rate > 60; Glucose Fasting 163 mg/dL (60-99); Potassium 3.9 mmol/L (3.3-5.1); Sodium 134 mmol/L (135-145); Total Protein 5.8 g/dL (6.5-8.0)
[2022-04-28 07:33] VITALS: BP 165/96; PULSE 67; RESP 18; TEMP 36.3; O2SAT 97
[2022-04-28 07:43] LABS: Glucose, Whole Blood 167 mg/dL (60-115)
[2022-04-28] MEDS: carvediloL 6.25 MG TABLET PO ×2 (07:43→21:07)
[2022-04-28] MEDS: Loratadine 10 MG TABLET PO (07:43)
[2022-04-28] MEDS: Sacubitril/Valsartan 24/26 1 TAB TABLET PO ×2 (07:43→21:07)
[2022-04-28] MEDS: Zinc Sulfate 220 MG CAPSULE PO (07:43)
[2022-04-28] MEDS: acetaZOLAMIDE 250 MG TABLET PO ×2 (07:43→21:07)
[2022-04-28] MEDS: Famotidine 20 MG TABLET PO ×2 (07:43→21:07)
[2022-04-28] MEDS: Insulin Lispro 100 UNIT/ML 3 ML VIAL SUBCUT ×2 (07:44→21:09)
[2022-04-28] MEDS: Spironolactone 25 MG TABLET 12.5 MG PO (07:44)
[2022-04-28] MEDS: Gabapentin 100 MG CAPSULE 200 MG PO ×2 (07:44→21:07)
[2022-04-28] MEDS: Aspirin Enteric Coated 81 MG TABLET.DR PO (07:44)
[2022-04-28] MEDS: methADONE HCl 20 MG/2 ML ORAL.CONC 50 MG PO (07:44)
[2022-04-28] MEDS: Bumetanide 1 MG TABLET 2 MG PO ×2 (09:54→17:08)
[2022-04-28 11:24] LABS: Glucose, Whole Blood 115 mg/dL (60-115)
[2022-04-28 12:00] VITALS: BP 125/78; PULSE 75; RESP 16; TEMP 36; O2SAT 95
--- NOTE | 2022-04-28 14:19 | P.PNIM_ITS ---
Subjective Subjective Date of Service: 04/28/22 Interval History: resting comfortably offers no acute complaints does not follow with urology or cardiology Review of Systems General no headache , no dizziness, no fever,no chills.? CVS no chest pain, no palpitation.? Respiratory no cough, no sob.? Gastrointestinal no nausea and vomiting Review of Systems: Yes all other systems are reviewed and are negative Physical Exam Vital Signs: Vital Signs: Last Vital Signs Temp 96.8 F 04/28/22 12:00 Pulse 75 04/28/22 12:00 Resp 16 04/28/22 12:00 BP 125/78 04/28/22 12:00 Pulse Ox 95 04/28/22 12:00 O2 Del Method 04/28/22 12:00 O2 Flow Rate 100 04/28/22 04:00 BMI result Body Mass Index 25.4 Const: Other: General? awake alert x3, in no acute distress.? Neck? no JVD. CVS? regular rate rhythm, Respiratory lungs clear to auscultation, no respiratory distress, no wheeze, no rhonchi. Gastrointestinal abdomen soft, nontender, bowel sounds audible Extremities? right BKA, left foot big toe ulcer, no drainage, no surrounding erythema Neuro nonfocal ,speech clear. Skin no rash psych appropriate affect Objective Data Active Medications Acetaminophen (Acetaminophen 325 Mg Tablet) 650 mg PO Q6H PRN PRN Reason: Pain, Mild (Pain Scale 1-3) Acetazolamide (Acetazolamide 250 Mg Tablet) 250 mg PO BID [facility] Stop: 04/30/22 09:01 Last Admin: 04/28/22 07:43 Dose: 250 mg Documented By: HILARY Albuterol Sulfate (Albuterol Sulfate 90 Mcg 8 Gm Inhaler) 2 puff INHALE Q4H PRN PRN Reason: dyspnea Aspirin (Aspirin Enteric Coated 81 Mg Tablet.) 81 mg PO DAILY [facility] Last Admin: 04/28/22 07:44 Dose: 81 mg Documented By: HILARY Atorvastatin Calcium (Atorvastatin Calcium 20 Mg Tablet) 20 mg PO BEDTIME [facility] Last Admin: 04/27/22 21:00 Dose: 20 mg Documented By: OLU Bumetanide (Bumetanide 1 Mg Tablet) 2 mg PO BID@0800,1700 [facility]; Protocol Last Admin: 04/28/22 09:54 Dose: 2 mg Documented By: HILARY Carvedilol (Carvedilol 6.25 Mg Tablet) 6.25 mg PO BID [facility]; Protocol Last Admin: 04/28/22 07:43 Dose: 6.25 mg Documented By: HILARY Clopidogrel Bisulfate (Clopidogrel Bisulfate 75 Mg Tablet) 75 mg PO DAILY [facility] Last Admin: 04/28/22 07:49 Dose: Not Given Documented By: HILARY Non-Admin Reason: Unable to Scan Barcode Famotidine (Famotidine 20 Mg Tablet) 20 mg PO BID [facility] Last Admin: 04/28/22 07:43 Dose: 20 mg Documented By: HILARY Gabapentin (Gabapentin 100 Mg Capsule) 200 mg PO TID [facility] Last Admin: 04/28/22 07:44 Dose: 200 mg Documented By: HILARY Heparin Sodium (Porcine) (Heparin Sodium,Porcine 5,000 Unit/Ml Vial) 5,000 unit SUBCUT Q8H [facility] Last Admin: 04/28/22 10:29 Dose: Not Given Documented By: HILARY Non-Admin Reason: Patient Refused Cefepime HCl 2 gm/ Sodium (Chloride) 50 mls @ 100 mls/hr IV Q12H [facility] Last Infusion: 04/28/22 06:09 Dose: 0 mls/hr Documented By: OLU Doxycycline Hyclate 100 mg/ (Sodium Chloride) 250 mls @ 166.67 mls/hr IV Q12H [facility] Last Infusion: 04/28/22 08:45 Dose: 0 mls/hr Documented By: HILARY Insulin Glargine (Insulin Glargine,Hum.Rec.Anlog 100 Unit/Ml 10 Ml Vial) 12 unit SUBCUT BEDTIME [facility] Last Admin: 04/27/22 20:34 Dose: Not Given Documented By: OLU Non-Admin Reason: poc is 85, dr. alejandro trevino. Insulin Human Lispro (Insulin Lispro 100 Unit/Ml 3 Ml Vial) 0 unit SUBCUT QIDACHS [facility]; Protocol Last Admin: 04/28/22 11:30 Dose: Not Given Documented By: HILARY Non-Admin Reason: No Insulin Coverage Lidocaine (Lidocaine 4 % Patch Adh..Patch) 1 patch TRANSDERMA DAILY [facility] Last Admin: 04/28/22 07:48 Dose: Not Given Documented By: HILARY Non-Admin Reason: Patient Refused Loratadine (Loratadine 10 Mg Tablet) 10 mg PO DAILY [facility] Last Admin: 04/28/22 07:43 Dose: 10 mg Documented By: HILARY Methadone HCl (Methadone Hcl 20 Mg/2 Ml Oral.Conc) 50 mg PO DAILY [facility] Last Admin: 04/28/22 07:44 Dose: 50 mg Documented By: HILARY Montelukast Sodium (Montelukast Sodium 10 Mg Tablet) 10 mg PO BEDTIME [facility] Last Admin: 04/27/22 21:00 Dose: 10 mg Documented By: OLU Pharmacy Consult (Consult Rx Vancomycin Dosing) 1 each MISCELLANE DAILY PRN PRN Reason: Consult order Pharmacy Consult (Consult Rx Perform Med Rec) 1 each MISCELLANE ONCE PRN PRN Reason: Consult order Sacubitril/Valsartan (Sacubitril/Valsartan 1 Tab Tablet) 1 tab PO BID [facility]; Protocol Last Admin: 04/28/22 07:43 Dose: 1 tab Documented By: HILARY Sodium Chloride (0.9 % Sodium Chloride Flush 3 Ml Syringe) 3 ml IVFLUSH QSHIFT [facility] Last Admin: 04/28/22 07:03 Dose: Not Given Documented By: HILARY Non-Admin Reason: IV Running Spironolactone (Spironolactone 25 Mg Tablet) 12.5 mg PO DAILY [facility]; Protocol Last Admin: 04/28/22 07:44 Dose: 12.5 mg Documented By: HILARY Tamsulosin HCl (Tamsulosin Hcl 0.4 Mg Capsule) 0.4 mg PO BEDTIME [facility] Last Admin: 04/27/22 21:00 Dose: 0.4 mg Documented By: OLU Zinc Sulfate (Zinc Sulfate 220 Mg Capsule) 220 mg PO DAILY [facility] Last Admin: 04/28/22 07:43 Dose: 220 mg Documented By: HILARY Labs CBC & Chem 7: 04/28/22 06:25 04/28/22 06:25 Labs: Laboratory Results - last 24 hr 04/27/22 04/27/22 04/27/22 15:04 16:34 20:00 MCV MCH MCHC RDW Plt Count MPV Immature Gran % (Auto) Neut % (Auto) Lymph % (Auto) [place] % (Auto) Eos % (Auto) Baso % (Auto) Lymph # (Auto) [place] # (Auto) Eos # (Auto) Baso # (Auto) Abs Immat Gran (auto) Absolute Neuts (auto) Absolute Nucleated RBC Nucleated RBC % (auto) Anion Gap Estim Creat Clear Calc Estimated GFR POC Glucose 415 H* 181 H 85 Fasting Glucose Calcium Total Bilirubin AST ALT Alkaline Phosphatase Total Protein Albumin 04/27/22 04/28/22 04/28/22 21:27 06:25 06:25 MCV 88.4 MCH 27.3 MCHC 30.9 L RDW 23.0 H Plt Count 123 L MPV 10.7 Immature Gran % (Auto) 0.3 Neut % (Auto) 55.1 Lymph % (Auto) 21.2 [place] % (Auto) 17.7 H Eos % (Auto) 5.1 H Baso % (Auto) 0.6 Lymph # (Auto) 1.4 [place] # (Auto) 1.2 Eos # (Auto) 0.3 Baso # (Auto) 0.0 Abs Immat Gran (auto) 0.02 Absolute Neuts (auto) 3.6 Absolute Nucleated RBC 0.000 Nucleated RBC % (auto) 0.0 Anion Gap 10 L Estim Creat Clear Calc 81.0 Estimated GFR > 60 POC Glucose 125 H Fasting Glucose 163 H D Calcium 8.6 Total Bilirubin 1.5 H AST 51 H ALT 33 Alkaline Phosphatase 91 Total Protein 5.8 L Albumin 2.7 L 04/28/22 04/28/22 07:31 11:08 MCV MCH MCHC RDW Plt Count MPV Immature Gran % (Auto) Neut % (Auto) Lymph % (Auto) [place] % (Auto) Eos % (Auto) Baso % (Auto) Lymph # (Auto) [place] # (Auto) Eos # (Auto) Baso # (Auto) Abs Immat Gran (auto) Absolute Neuts (auto) Absolute Nucleated RBC Nucleated RBC % (auto) Anion Gap Estim Creat Clear Calc Estimated GFR POC Glucose 167 H 115 Fasting Glucose Calcium Total Bilirubin AST ALT Alkaline Phosphatase Total Protein Albumin Microbiology Microbiology Results: Microbiology 04/22/22 17:18 Blood Culture - Final Blood - Venous No growth after 5 days. 04/22/22 17:18 Blood Culture - Final Blood - Venous No growth after 5 days. Assessment and Plan (1) Osteomyelitis of great toe: Status: Acute (2) Transaminitis: Status: Acute (3) Diabetes mellitus, type 2: Status: Acute (4) Opiate abuse, continuous: Status: Acute Plan 51-year-old male with known history of diabetes insulin dependent and peripheral vascular disease presents today with left great toe wound which he states he did while scratching toe. Traditionally a poor historian. ER workup consistent with osteomyelitis. Chronic osteomyelitis left great toe on iv cefepime/ doxycycline day 6, afebrile normal WBC MRI left foot showing osteomyelitis wound culture showing E coli and Klebsiella oxytoca ESBL negative patient undergo went left leg angiogram, and had left anterior tibial and left popliteal artery angioplasty by Dr. Vaughn will continue aspirin and Plavix, outpatient follow-up with vascular surgery await ID input for duration of antibiotic hypokalemia likely due to diuretics, repleted alkalosis likely related to contraction alkalosis with soft blood pressures, on Bumex 2 mg b.i.d. and Aldactone, bicarb improved to 34 after holding Bumex,continue Diamox 250 b.i.d. 6 dosages, will DC Lasix Transaminitis trending down , on Lipitor, denies alcohol use Ch.Cardiomyopathy with low EF 15-20% and grade 3 diastolic dysfunction, no acute exacerbate, on Coreg/ Entresto/ spironolactone/Bumex, recommend close outpatient follow-up with Cardiology Diabetes type 2 is stable blood sugars continue ada diet, ss, lantus Opioid use disorder, on methadone/ being followed by care team Urinary retention. chronic continue indwelling Alberts, continue Flomax DVT prophylaxis with Heparin Full code Will require ongoing hospitalization for IV antibiotics to treat osteomyelitis. Quality Stroke Does the patient have a stroke diagnosis?: No VTE Prior VTE?: No VTE Risk Level:: Medical - moderate - high VTE Device Contraindication: Treatment Not Indicated VTE Drug Contraindication: N/A - Med Ordered
[2022-04-28 15:39] VITALS: BP 91/55; PULSE 65; RESP 18; TEMP 36.6; O2SAT 100
[2022-04-28 16:07] LABS: Glucose, Whole Blood 146 mg/dL (60-115)
[2022-04-28] MEDS: 0.9 % Sodium Chloride Flush 3 ML SYRINGE IVFLUSH ×2 (17:12→21:10)
[2022-04-28 19:36] VITALS: BP 98/55; PULSE 66; RESP 18; TEMP 36.4; O2SAT 95
[2022-04-28 20:02] LABS: Glucose, Whole Blood 214 mg/dL (60-115)
[2022-04-28] MEDS: Montelukast Sodium 10 MG TABLET PO (21:07)
[2022-04-28] MEDS: Atorvastatin Calcium 20 MG TABLET PO (21:07)
[2022-04-28] MEDS: Tamsulosin HCL 0.4 MG CAPSULE PO (21:07)
[2022-04-28] MEDS: Insulin Glargine,Hum.rec.anlog 100 UNIT/ML 10 ML VIAL 12 UNIT SUBCUT (21:08)
--- NOTE | 2022-04-28 22:40 | W.PM.IDCN ---
History of Present Illness Data of Consult Service Date: 04/28/22 Requesting physician: Dinh Mccain Primary Care Provider: [facility] Reason for consult: recurrent left great toe swelling He presents with swelling and discomfort left great toe. He has no fever or chills I have seen himself about monthly over the last several months,earlier in month for balanitis. He has had six weeks of Daptomycin IV for six weeks 01/01-02/10. He has had recurrent left foot infection. Now he has more redness and swelling and purulence E coli and Klebsiella were found. [facility] Past Medical History Medical History Abscess or cellulitis of foot Acute on chronic combined systolic and diastolic congestive heart failure Acute on chronic HFrEF (heart failure with reduced ejection fraction) Acute respiratory failure with hypoxia Asthma Bipolar 1 disorder BPH (benign prostatic hyperplasia) CHF (congestive heart failure) CHF (congestive heart failure) CHF exacerbation Cholelithiasis Closed wedge compression fracture of T9 vertebra COPD (chronic obstructive pulmonary disease) Diabetes mellitus Elevated troponin GERD (gastroesophageal reflux disease) Hyperlipidemia Ischemic cardiomyopathy Lymphadenopathy Osteomyelitis Peripheral neuropathy Peripheral vascular disease Substance abuse Tracheomalacia, acquired Family History Family History Father Chronic mental illness Hypertension Asthma Stroke Mother Asthma Diabetes Coronary artery disease Family history: reviewed and not pertinent Surgical History Surgical History History of amputation History of laminectomy History of transurethral resection of prostate Hx of BKA Social History Social History Household Members: Unknown / Unable to assess Housing: House Housing Other:: IN A LITTLE ROOM Do you presently have visiting nurse or other home services: No Unable to assess alcohol history related to: Refusing to respond Alcohol intake: unknown Patient Tobacco Use Status: Never used Tobacco e-Cigarette/Vaping Use: Never Used Second Hand Smoke Exposure: No Substance Use Type: Opiates Advance Directives Date on File: 11/24/20 service: No Current occupational status: disabled Meds Allergies Allergy/AdvReac Type Severity Reaction Status Date / Time ertapenem Allergy Intermediate Hives Verified 02/21/22 18:40 vancomycin [VANCOMYCIN] Allergy Intermediate HIVES Verified 02/21/22 18:40 Chocolate Allergy Unknown Rash Verified 02/21/22 18:40 ciprofloxacin [From CIPRO] Allergy Unknown SWELLING Verified 02/21/22 18:40 hydrocortisone [Cipro HC] Allergy Unknown Unknown Verified 02/21/22 18:40 sulfamethoxazole Allergy Unknown rash Verified 02/21/22 18:40 [From BACTRIM] trimethoprim [From BACTRIM] Allergy Unknown rash Verified 02/21/22 18:40 turkey [TURKEY] Allergy Unknown RASH Verified 02/21/22 18:40 Active Medications: Current Medications Acetaminophen (Acetaminophen 325 Mg Tablet) 650 mg PO Q6H PRN PRN Reason: Pain, Mild (Pain Scale 1-3) Acetazolamide (Acetazolamide 250 Mg Tablet) 250 mg PO BID [facility] Stop: 04/30/22 09:01 Last Admin: 04/28/22 21:07 Dose: 250 mg Albuterol Sulfate (Albuterol Sulfate 90 Mcg 8 Gm Inhaler) 2 puff INHALE Q4H PRN PRN Reason: dyspnea Aspirin (Aspirin Enteric Coated 81 Mg Tablet.Dr) 81 mg PO DAILY [facility] Last Admin: 04/28/22 07:44 Dose: 81 mg Atorvastatin Calcium (Atorvastatin Calcium 20 Mg Tablet) 20 mg PO BEDTIME [facility] Last Admin: 04/28/22 21:07 Dose: 20 mg Bumetanide (Bumetanide 1 Mg Tablet) 2 mg PO BID@0800,1700 [facility]; Protocol Last Admin: 04/28/22 17:08 Dose: 2 mg Carvedilol (Carvedilol 6.25 Mg Tablet) 6.25 mg PO BID [facility]; Protocol Last Admin: 04/28/22 21:07 Dose: 6.25 mg Clopidogrel Bisulfate (Clopidogrel Bisulfate 75 Mg Tablet) 75 mg PO DAILY [facility] Last Admin: 04/28/22 07:49 Dose: Not Given Famotidine (Famotidine 20 Mg Tablet) 20 mg PO BID [facility] Last Admin: 04/28/22 21:07 Dose: 20 mg Gabapentin (Gabapentin 100 Mg Capsule) 200 mg PO TID [facility] Last Admin: 04/28/22 21:07 Dose: 200 mg Heparin Sodium (Porcine) (Heparin Sodium,Porcine 5,000 Unit/Ml Vial) 5,000 unit SUBCUT Q8H [facility] Last Admin: 04/28/22 17:55 Dose: Not Given Cefepime HCl 2 gm/ Sodium (Chloride) 50 mls @ 100 mls/hr IV Q12H [facility] Last Infusion: 04/28/22 17:52 Dose: Infused Doxycycline Hyclate 100 mg/ (Sodium Chloride) 250 mls @ 166.67 mls/hr IV Q12H [facility] Last Infusion: 04/28/22 19:57 Dose: Infused Insulin Glargine (Insulin Glargine,Hum.Rec.Anlog 100 Unit/Ml 10 Ml Vial) 12 unit SUBCUT BEDTIME [facility] Last Admin: 04/28/22 21:08 Dose: 12 unit Insulin Human Lispro (Insulin Lispro 100 Unit/Ml 3 Ml Vial) 0 unit SUBCUT QIDACHS [facility]; Protocol Last Admin: 04/28/22 21:09 Dose: 4 unit Lidocaine (Lidocaine 4 % Patch Adh..Patch) 1 patch TRANSDERMA DAILY [facility] Last Admin: 04/28/22 07:48 Dose: Not Given Loratadine (Loratadine 10 Mg Tablet) 10 mg PO DAILY [facility] Last Admin: 04/28/22 07:43 Dose: 10 mg Methadone HCl (Methadone Hcl 20 Mg/2 Ml Oral.Conc) 50 mg PO DAILY [facility] Last Admin: 04/28/22 07:44 Dose: 50 mg Montelukast Sodium (Montelukast Sodium 10 Mg Tablet) 10 mg PO BEDTIME [facility] Last Admin: 04/28/22 21:07 Dose: 10 mg Pharmacy Consult (Consult Rx Vancomycin Dosing) 1 each MISCELLANE DAILY PRN PRN Reason: Consult order Pharmacy Consult (Consult Rx Perform Med Rec) 1 each MISCELLANE ONCE PRN PRN Reason: Consult order Sacubitril/Valsartan (Sacubitril/Valsartan 1 Tab Tablet) 1 tab PO BID [facility]; Protocol Last Admin: 04/28/22 21:07 Dose: 1 tab Sodium Chloride (0.9 % Sodium Chloride Flush 3 Ml Syringe) 3 ml IVFLUSH QSHIFT [facility] Last Admin: 04/28/22 21:10 Dose: 3 ml Spironolactone (Spironolactone 25 Mg Tablet) 12.5 mg PO DAILY [facility]; Protocol Last Admin: 04/28/22 07:44 Dose: 12.5 mg Tamsulosin HCl (Tamsulosin Hcl 0.4 Mg Capsule) 0.4 mg PO BEDTIME [facility] Last Admin: 04/28/22 21:07 Dose: 0.4 mg Zinc Sulfate (Zinc Sulfate 220 Mg Capsule) 220 mg PO DAILY [facility] Last Admin: 04/28/22 07:43 Dose: 220 mg Home Medications Medication Instructions Recorded Confirmed Last Taken Type albuterol sulfate 90 mcg/actuation 2 puff inhalation Q4-6H PRN dyspnea 03/08/22 04/22/22 Unknown History aerosol inhaler (ProAir HFA) aspirin 81 mg tablet,delayed 1 tab PO QAM 03/08/22 04/22/22 Unknown History release atorvastatin 20 mg tablet 1 tab PO BEDTIME 03/08/22 04/22/22 Unknown History carvedilol 6.25 mg tablet 1 tab PO BID 03/08/22 04/22/22 Unknown History cetirizine 10 mg tablet 1 tab PO QAM 03/08/22 04/22/22 Unknown History clopidogrel 75 mg tablet 1 tab PO QAM 03/08/22 04/22/22 Unknown History famotidine 20 mg tablet 1 tab PO BID 03/08/22 04/22/22 Unknown History fluticasone 500 mcg-salmeterol 50 1 puff PO BID 03/08/22 04/22/22 Unknown History mcg/dose blistr powdr for inhalation (Advair Diskus) fluticasone propionate 50 1 - 2 spray intranasal DAILY PRN 03/08/22 04/22/22 Unknown History mcg/actuation nasal Allergy Symptoms spray,suspension furosemide 40 mg tablet 1 tab PO DAILY 03/08/22 04/22/22 Unknown History gabapentin 100 mg capsule 2 cap PO TID 03/08/22 04/22/22 Unknown History insulin aspart U-100 100 unit/mL 5 unit subcut TID 03/08/22 04/22/22 Unknown History (3 mL) subcutaneous pen (Novolog Flexpen U-100 Insulin aspart) insulin glargine 100 unit/mL (3 12 unit subcut BEDTIME 03/08/22 04/22/22 03/07/22 History mL) subcutaneous pen (Lantus Solostar U-100 Insulin) lidocaine 5 % topical patch 1 patch topical DAILY 03/08/22 04/22/22 Unknown History (Lidoderm) methadone 10 mg/mL oral concentrate 52 mg PO DAILY 03/08/22 04/18/22 03/08/22 History montelukast 10 mg tablet 1 tab PO QPM 03/08/22 04/22/22 Unknown History spironolactone 25 mg tablet 0.5 tab PO QAM 03/08/22 04/22/22 Unknown History tamsulosin 0.4 mg capsule 1 cap PO QPM 03/08/22 04/22/22 Unknown History zinc sulfate 50 mg zinc (220 mg) 1 cap PO DAILY 03/08/22 04/22/22 Unknown History capsule bumetanide 2 mg tablet 2 mg PO BID 03/30/22 04/22/22 Unknown History sacubitril 24 mg-valsartan 26 mg 1 tab PO BID 03/30/22 04/22/22 Unknown History tablet (Entresto) Physical Exam Vital Signs: Vital Signs: Last Vital Signs Temp 97.6 F 04/28/22 19:36 Pulse 66 04/28/22 19:36 Resp 18 04/28/22 19:36 BP 98/55 L 04/28/22 19:36 Pulse Ox 95 04/28/22 19:36 O2 Del Method 04/28/22 19:36 O2 Flow Rate 100 04/28/22 04:00 BMI result Body Mass Index 25.4 Const: General: cooperative Eyes: General: appearance normal, both eyes and all related structures Resp: Effort & Inspection: normal respiratory effort Cardio: Rate: regular rate Rhythm: regular rhythm GI: Palpation (GI): Soft to palpation and nontender Skin: General skin exam: no rashes or lesions noted Neuro: Other: neuropathy feet Extrem: Other: reddened left great toe with exudate Results Labs CBC & Chem 7: 04/28/22 06:25 04/28/22 06:25 Labs: Short CBC 04/28/22 Range/Units 06:25 WBC 6.5 (4.8-10.8) X10*3/uL Hgb 12.0 L (14.0-18.0) g/dl Hct 38.8 L (42.0-52.0) % Plt Count 123 L (160-400) X10*3/uL BMP 04/28/22 06:25 Sodium 134 L Potassium 3.9 D Chloride 94 L Carbon Dioxide 34 H BUN 16 Creatinine 1.02 Calcium 8.6 Liver Function 04/28/22 Range/Units 06:25 Total Bilirubin 1.5 H (0.0-1.0) mg/dL AST 51 H (5-37) U/L ALT 33 (0-40) U/L Alkaline Phosphatase 91 (39-117) U/L Albumin 2.7 L (3.5-5.0) g/dL Microbiology Microbiology Results: Microbiology 04/22/22 17:18 Blood - Venous Blood Culture - Final No growth after 5 days. 04/22/22 17:18 Blood - Venous Blood Culture - Final No growth after 5 days. 04/22/22 17:43 Toe Left Great Gram Stain - Final 04/22/22 17:43 Toe Left Great Routine Culture - Final Escherichia coli Klebsiella oxytoca Assessment and Plan (1) Osteomyelitis of great toe: Status: Acute He complains of new worsening redness and exudate of left great toe. He has received six weeks IV treatment with Daptomycin after had problems with both Vancomycin and Ertapenem (hives) He has chronic osteomyelitis with acute exacerbation Plan No prison IV antibiotics. Po Levaquin 750 mg daily or Ceftin 500 mg bid for fourteen days. Follow up with Surgery as will likely need amputation which would be curative.
[2022-04-29] VITALS: BP 104/56; PULSE 69; RESP 18; TEMP 36.3; O2SAT 100
[2022-04-29 04:00] VITALS: BP 100/71; PULSE 62; RESP 18; TEMP 36.1; O2SAT 99
[2022-04-29] MEDS: cefEPime HCl 2 GM in 0.9 % Sodium Chloride 50 ML IV (05:39)
[2022-04-29] MEDS: Doxycycline Hyclate 100 MG in 0.9 % Sodium Chloride 250 ML 166.67 MG IV (06:15)
[2022-04-29 07:34] LABS: Glucose, Whole Blood 75 mg/dL (60-115)
[2022-04-29 07:40] VITALS: BP 116/64; PULSE 76; RESP 17; TEMP 36.1; O2SAT 97
[2022-04-29] MEDS: Bumetanide 1 MG TABLET 2 MG PO (08:49)
[2022-04-29] MEDS: methADONE HCl 20 MG/2 ML ORAL.CONC 50 MG PO (08:49)
[2022-04-29] MEDS: acetaZOLAMIDE 250 MG TABLET PO ×2 (08:50→21:08)
[2022-04-29] MEDS: Clopidogrel Bisulfate 75 MG TABLET PO (08:50)
[2022-04-29] MEDS: Aspirin Enteric Coated 81 MG TABLET.DR PO (08:50)
[2022-04-29] MEDS: Spironolactone 25 MG TABLET 12.5 MG PO (08:50)
[2022-04-29] MEDS: Gabapentin 100 MG CAPSULE 200 MG PO ×2 (08:50→21:08)
[2022-04-29] MEDS: Zinc Sulfate 220 MG CAPSULE PO (08:50)
[2022-04-29] MEDS: Loratadine 10 MG TABLET PO (08:51)
[2022-04-29] MEDS: Famotidine 20 MG TABLET PO ×2 (08:51→21:08)
[2022-04-29] MEDS: 0.9 % Sodium Chloride Flush 3 ML SYRINGE IVFLUSH ×2 (08:51→21:27)
[2022-04-29] MEDS: Sacubitril/Valsartan 24/26 1 TAB TABLET PO ×2 (08:54→21:08)
--- NOTE | 2022-04-29 10:05 | MHC.CM.PN ---
Addendum entered by Linda Chanel 04/29/22 14:40: NO VNA OFFERS OF THIS NOTE [facility] Original Note: CASE MANAGEMENT ATTEMPTING TO SECURE A VNA FOR PATIENT. PLAN IS HOME ON PO ABX
[2022-04-29] MEDS: carvediloL 6.25 MG TABLET PO ×2 (11:13→21:26)
[2022-04-29 11:46] LABS: Glucose, Whole Blood 115 mg/dL (60-115)
[2022-04-29 12:00] VITALS: BP 119/74; PULSE 76; RESP 16; TEMP 36.1; O2SAT 95
[2022-04-29 16:00] VITALS: BP 92/51; PULSE 66; RESP 18; TEMP 36.4; O2SAT 96
--- NOTE | 2022-04-29 16:37 | P.PNIM_ITS ---
Subjective Subjective Date of Service: 04/30/22 Interval History: history obtained via casing wringer operator patient offers no acute complaint, denies pain no nausea Review of Systems COMPUTER REPAIR INSTRUCTOR no headache no dizziness CVS no chest pain, no palpitation respiratory no cough, no shortness of breath Review of Systems: Yes all other systems are reviewed and are negative Physical Exam Vital Signs: Vital Signs: Last Vital Signs Temp 97.6 F 04/29/22 16:00 Pulse 66 04/29/22 16:00 Resp 18 04/29/22 16:00 BP 92/51 L 04/29/22 16:00 Pulse Ox 96 04/29/22 16:00 O2 Del Method 04/29/22 16:00 O2 Flow Rate 100 04/28/22 04:00 BMI result Body Mass Index 25.4 Const: Other: General? awake flaco rt x3, in no acute distress.? Neck? no JVD. CVS? regul ar rate rhythm, Re spiratory lungs cl ear to auscultatio n, no respiratory distress, no wheez e, no rhonchi. Gas trointestinal abdo men soft, nontende r, bowel sounds au dible Extremities? right BKA, left f oot big toe ulcer, no drainage, no s urrounding erythem a Neuro nonfocal , speech clear. Skin no rash psych dasha ropriate affect Objective Data Active Medications Acetaminophen (Acetaminophen 325 Mg Tablet) 650 mg PO Q6H PRN PRN Reason: Pain, Mild (Pain Scale 1-3) Acetazolamide (Acetazolamide 250 Mg Tablet) 250 mg PO BID [facility] Stop: 04/30/22 09:01 Last Admin: 04/29/22 08:50 Dose: 250 mg Documented By: SMITH Albuterol Sulfate (Albuterol Sulfate 90 Mcg 8 Gm Inhaler) 2 puff INHALE Q4H PRN PRN Reason: dyspnea Aspirin (Aspirin Enteric Coated 81 Mg Tablet.) 81 mg PO DAILY [facility] Last Admin: 04/29/22 08:50 Dose: 81 mg Documented By: SMITH Atorvastatin Calcium (Atorvastatin Calcium 20 Mg Tablet) 20 mg PO BEDTIME [facility] Last Admin: 04/28/22 21:07 Dose: 20 mg Documented By: OLU Bumetanide (Bumetanide 1 Mg Tablet) 2 mg PO BID@0800,1700 [facility]; Protocol Last Admin: 04/29/22 08:49 Dose: 2 mg Documented By: SMITH Carvedilol (Carvedilol 6.25 Mg Tablet) 6.25 mg PO BID [facility]; Protocol Last Admin: 04/29/22 11:13 Dose: 6.25 mg Documented By: SMITH Cefuroxime Axetil (Cefuroxime Axetil 500 Mg Tablet) 500 mg PO Q12H [facility] Clopidogrel Bisulfate (Clopidogrel Bisulfate 75 Mg Tablet) 75 mg PO DAILY [facility] Last Admin: 04/29/22 08:50 Dose: 75 mg Documented By: SMITH Famotidine (Famotidine 20 Mg Tablet) 20 mg PO BID [facility] Last Admin: 04/29/22 08:51 Dose: 20 mg Documented By: SMITH Gabapentin (Gabapentin 100 Mg Capsule) 200 mg PO TID [facility] Last Admin: 04/29/22 08:50 Dose: 200 mg Documented By: SMITH Heparin Sodium (Porcine) (Heparin Sodium,Porcine 5,000 Unit/Ml Vial) 5,000 unit SUBCUT Q8H [facility] Last Admin: 04/29/22 12:16 Dose: Not Given Documented By: SMITH Non-Admin Reason: Patient Refused Insulin Glargine (Insulin Glargine,Hum.Rec.Anlog 100 Unit/Ml 10 Ml Vial) 12 unit SUBCUT BEDTIME [facility] Last Admin: 04/28/22 21:08 Dose: 12 unit Documented By: OLU Insulin Human Lispro (Insulin Lispro 100 Unit/Ml 3 Ml Vial) 0 unit SUBCUT QIDACHS [facility]; Protocol Last Admin: 04/29/22 12:24 Dose: Not Given Documented By: SMITH Non-Admin Reason: No Insulin Coverage Lidocaine (Lidocaine 4 % Patch Adh..Patch) 1 patch TRANSDERMA DAILY [facility] Last Admin: 04/29/22 08:49 Dose: Not Given Documented By: SMITH Non-Admin Reason: Patient Refused Loratadine (Loratadine 10 Mg Tablet) 10 mg PO DAILY [facility] Last Admin: 04/29/22 08:51 Dose: 10 mg Documented By: SMITH Methadone HCl (Methadone Hcl 20 Mg/2 Ml Oral.Conc) 50 mg PO DAILY [facility] Last Admin: 04/29/22 08:49 Dose: 50 mg Documented By: SMITH Montelukast Sodium (Montelukast Sodium 10 Mg Tablet) 10 mg PO BEDTIME [facility] Last Admin: 04/28/22 21:07 Dose: 10 mg Documented By: OLU Pharmacy Consult (Consult Rx Perform Med Rec) 1 each MISCELLANE ONCE PRN PRN Reason: Consult order Sacubitril/Valsartan (Sacubitril/Valsartan 1 Tab Tablet) 1 tab PO BID [facility]; Protocol Last Admin: 04/29/22 08:54 Dose: 1 tab Documented By: SMITH Sodium Chloride (0.9 % Sodium Chloride Flush 3 Ml Syringe) [facility] Last Admin: 04/29/22 08:51 Dose: 3 ml Documented By: SMITH Spironolactone (Spironolactone 25 Mg Tablet) 12.5 mg PO DAILY [facility]; Protocol Last Admin: 04/29/22 08:50 Dose: 12.5 mg Documented By: SMITH Tamsulosin HCl (Tamsulosin Hcl 0.4 Mg Capsule) 0.4 mg PO BEDTIME [facility] Last Admin: 04/28/22 21:07 Dose: 0.4 mg Documented By: OLU Zinc Sulfate (Zinc Sulfate 220 Mg Capsule) 220 mg PO DAILY [facility] Last Admin: 04/29/22 08:50 Dose: 220 mg Documented By: SMITH Labs CBC & Chem 7: 04/28/22 06:25 04/28/22 06:25 Labs: Laboratory Results - last 24 hr 04/28/22 04/29/22 04/29/22 19:51 07:26 11:39 POC Glucose 214 H 75 115 Assessment and Plan (1) Osteomyelitis of great toe: Status: Acute (2) Transaminitis: Status: Acute (3) Diabetes mellitus, type 2: Status: Acute (4) Opiate abuse, continuous: Status: Acute Plan 51-year-old male with known history of diabetes insulin dependent and peripheral vascular disease presents today with left great toe wound which he states he did while scratching toe. Traditionally a poor historian. ER workup consistent with osteomyelitis. Chronic osteomyelitis left great toe on Ceftin 500mg bid day 11/26, afebrile normal WBC, case discussed with ID she recommend 2 weeks of oral antibiotic MRI left foot showed osteomyelitis, osteo seen on prior foot x-rays wound culture showing E coli and Klebsiella oxytoca ESBL negative, blood cultures x2 negative patient underwent left leg angiogram, and had left anterior tibial and left popliteal artery angioplasty by Dr. Vaughn will continue aspirin and Plavix, outpatient follow-up with vascular surgery hypokalemia likely due to diuretics, repleted alkalosis likely related to contraction alkalosis with soft blood pressures, on Bumex 2 mg b.i.d. and Aldactone, bicarb improved to 34 after holding Bumex,continue Diamox 250 b.i.d. 6 dosages Transaminitis trending down , cont. Lipitor, denies alcohol use Ch.Cardiomyopathy with low EF 15-20% and grade 3 diastolic dysfunction, no acute exacerbate, on Coreg/ Entresto/ spironolactone/Bumex, recommend close outpatient follow-up with Cardiology, stop Lasix Diabetes type 2 is stable blood sugars continue ada diet, ss, lantus Opioid use disorder, on methadone/ being followed by care team Urinary retention. chronic continue indwelling Alberts, continue Flomax recommend outpatient Urology follow up DVT prophylaxis with Heparin Full code Will require ongoing hospitalization since therapeutic case manager arranging for VNA servi lisa , patient not safe to be discharged without home health services, since cannot manage his care by himself. Quality Stroke Does the patient have a stroke diagnosis?: No VTE Prior VTE?: No VTE Risk Level:: Medical - moderate - high VTE Device Contraindication: Treatment Not Indicated VTE Drug Contraindication: N/A - Med Ordered
[2022-04-29 17:05] LABS: Glucose, Whole Blood 117 mg/dL (60-115)
[2022-04-29 20:00] VITALS: BP 120/62; PULSE 65; RESP 18; TEMP 36.5; O2SAT 97
[2022-04-29 20:22] LABS: Glucose, Whole Blood 122 mg/dL (60-115)
[2022-04-29] MEDS: Insulin Glargine,Hum.rec.anlog 100 UNIT/ML 10 ML VIAL 12 UNIT SUBCUT (21:09)
[2022-04-29] MEDS: Atorvastatin Calcium 20 MG TABLET PO (21:09)
[2022-04-29] MEDS: Tamsulosin HCL 0.4 MG CAPSULE PO (21:09)
[2022-04-29] MEDS: Montelukast Sodium 10 MG TABLET PO (21:09)
[2022-04-30] VITALS (7 sets, daily range): BP systolic 92–100; BP diastolic 54–62; PULSE 60–68; RESP 14–19; TEMP 35.8–37.1; O2SAT 94–100
[2022-04-30 08:03] LABS: Glucose, Whole Blood 137 mg/dL (60-115)
[2022-04-30] MEDS: Zinc Sulfate 220 MG CAPSULE PO (08:41)
[2022-04-30] MEDS: 0.9 % Sodium Chloride Flush 3 ML SYRINGE IVFLUSH ×3 (08:41→21:22)
[2022-04-30] MEDS: Sacubitril/Valsartan 24/26 1 TAB TABLET PO ×2 (08:41→21:22)
[2022-04-30] MEDS: acetaZOLAMIDE 250 MG TABLET PO (08:41)
[2022-04-30] MEDS: Famotidine 20 MG TABLET PO ×2 (08:41→21:22)
[2022-04-30] MEDS: Bumetanide 1 MG TABLET 2 MG PO (08:41)
[2022-04-30] MEDS: Spironolactone 25 MG TABLET 12.5 MG PO (08:42)
[2022-04-30] MEDS: Clopidogrel Bisulfate 75 MG TABLET PO (08:42)
[2022-04-30] MEDS: Gabapentin 100 MG CAPSULE 200 MG PO ×3 (08:42→21:22)
[2022-04-30] MEDS: Aspirin Enteric Coated 81 MG TABLET.DR PO (08:43)
[2022-04-30] MEDS: methADONE HCl 20 MG/2 ML ORAL.CONC 50 MG PO (08:44)
[2022-04-30] MEDS: Loratadine 10 MG TABLET PO (08:45)
[2022-04-30] MEDS: carvediloL 6.25 MG TABLET PO (08:53)
[2022-04-30 10:55] LABS: Glucose, Whole Blood 147 mg/dL (60-115)
--- NOTE | 2022-04-30 13:50 | HO.PM.IMPN ---
Subjective Subjective Date of Service: 04/30/22 Interval History: resting comfortably offers no acute complaints history obtained via car customizer is, no acute events overnight. Tolerating diet, no nausea, no vomiting. Review of Systems Review of Systems: Yes all other systems are reviewed and are negative Physical Exam Vital Signs: Vital Signs: Last Vital Signs Temp 98.7 F 04/30/22 11:45 Pulse 60 04/30/22 11:45 Resp 17 04/30/22 11:45 BP 98/55 L 04/30/22 11:45 Pulse Ox 98 04/30/22 11:45 O2 Del Method 04/30/22 11:45 O2 Flow Rate 100 04/28/22 04:00 BMI result Body Mass Index 25.4 Const: Other: General? awake alert x3, in no acute distress.? Neck? no JVD. CVS? regular rate rhythm, Respiratory lungs clear to auscultation, no respiratory distress, no wheeze, no rhonchi. Gastrointestinal abdomen soft, nontender, bowel sounds audible Extremities? right BKA, left foot big toe ulcer, no drainage, no surrounding erythema Neuro nonfocal ,speech clear. Skin no rash psych appropriate affect Objective Data Active Medications Acetaminophen (Acetaminophen 325 Mg Tablet) 650 mg PO Q6H PRN PRN Reason: Pain, Mild (Pain Scale 1-3) Albuterol Sulfate (Albuterol Sulfate 90 Mcg 8 Gm Inhaler) 2 puff INHALE Q4H PRN PRN Reason: dyspnea Aspirin (Aspirin Enteric Coated 81 Mg Tablet.) 81 mg PO DAILY [facility] Last Admin: 04/30/22 08:43 Dose: 81 mg Documented By: TRINY Atorvastatin Calcium (Atorvastatin Calcium 20 Mg Tablet) 20 mg PO BEDTIME [facility] Last Admin: 04/29/22 21:09 Dose: 20 mg Documented By: TONEY Bumetanide (Bumetanide 1 Mg Tablet) 2 mg PO BID@0800,1700 [facility]; Protocol Last Admin: 04/30/22 08:41 Dose: 2 mg Documented By: TRINY Carvedilol (Carvedilol 6.25 Mg Tablet) 6.25 mg PO BID [facility]; Protocol Last Admin: 04/30/22 08:53 Dose: 6.25 mg Documented By: TRINY Cefuroxime Axetil (Cefuroxime Axetil 500 Mg Tablet) 500 mg PO Q12H [facility] Last Admin: 04/30/22 08:42 Dose: 500 mg Documented By: TRINY Clopidogrel Bisulfate (Clopidogrel Bisulfate 75 Mg Tablet) 75 mg PO DAILY [facility] Last Admin: 04/30/22 08:42 Dose: 75 mg Documented By: TRINY Famotidine (Famotidine 20 Mg Tablet) 20 mg PO BID [facility] Last Admin: 04/30/22 08:41 Dose: 20 mg Documented By: TRINY Gabapentin (Gabapentin 100 Mg Capsule) 200 mg PO TID [facility] Last Admin: 04/30/22 08:42 Dose: 200 mg Documented By: TRINY Heparin Sodium (Porcine) (Heparin Sodium,Porcine 5,000 Unit/Ml Vial) 5,000 unit SUBCUT Q8H [facility] Last Admin: 04/30/22 11:02 Dose: Not Given Documented By: TRINY Non-Admin Reason: Patient Refused Insulin Glargine (Insulin Glargine,Hum.Rec.Anlog 100 Unit/Ml 10 Ml Vial) 12 unit SUBCUT BEDTIME [facility] Last Admin: 04/29/22 21:09 Dose: 12 unit Documented By: TONEY Insulin Human Lispro (Insulin Lispro 100 Unit/Ml 3 Ml Vial) 0 unit SUBCUT QIDACHS [facility]; Protocol Last Admin: 04/30/22 11:02 Dose: Not Given Documented By: TRINY Non-Admin Reason: No Insulin Coverage Lidocaine (Lidocaine 4 % Patch Adh..Patch) 1 patch TRANSDERMA DAILY [facility] Last Admin: 04/30/22 08:56 Dose: Not Given Documented By: TRINY Non-Admin Reason: Patient Refused Loratadine (Loratadine 10 Mg Tablet) 10 mg PO DAILY [facility] Last Admin: 04/30/22 08:45 Dose: 10 mg Documented By: TRINY Methadone HCl (Methadone Hcl 20 Mg/2 Ml Oral.Conc) 50 mg PO DAILY [facility] Last Admin: 04/30/22 08:44 Dose: 50 mg Documented By: TRINY Montelukast Sodium (Montelukast Sodium 10 Mg Tablet) 10 mg PO BEDTIME [facility] Last Admin: 04/29/22 21:09 Dose: 10 mg Documented By: TONEY Pharmacy Consult (Consult Rx Perform Med Rec) 1 each MISCELLANE ONCE PRN PRN Reason: Consult order Sacubitril/Valsartan (Sacubitril/Valsartan 1 Tab Tablet) 1 tab PO BID [facility]; Protocol Last Admin: 04/30/22 08:41 Dose: 1 tab Documented By: TRNIY Sodium Chloride (0.9 % Sodium Chloride Flush 3 Ml Syringe) 3 ml IVFLUSH QSHIFT [facility] Last Admin: 04/30/22 08:41 Dose: 3 ml Documented By: TRINY Spironolactone (Spironolactone 25 Mg Tablet) 12.5 mg PO DAILY [facility]; Protocol Last Admin: 04/30/22 08:42 Dose: 12.5 mg Documented By: TRINY Tamsulosin HCl (Tamsulosin Hcl 0.4 Mg Capsule) 0.4 mg PO BEDTIME [facility] Last Admin: 04/29/22 21:09 Dose: 0.4 mg Documented By: TONEY Zinc Sulfate (Zinc Sulfate 220 Mg Capsule) 220 mg PO DAILY [facility] Last Admin: 04/30/22 08:41 Dose: 220 mg Documented By: TRINY Labs CBC & Chem 7: 04/28/22 06:25 04/28/22 06:25 Labs: Laboratory Results - last 24 hr 04/29/22 04/29/22 04/30/22 16:59 20:13 08:00 POC Glucose 117 H 122 H 137 H 04/30/22 10:48 POC Glucose 147 H Assessment and Plan (1) Osteomyelitis of great toe: Status: Acute (2) Transaminitis: Status: Acute (3) Diabetes mellitus, type 2: Status: Acute (4) Opiate abuse, continuous: Status: Acute Plan 51-year-old male with known history of diabetes insulin dependent and peripheral vascular disease presents today with left great toe wound which he states he did while scratching toe. Traditionally a poor historian. ER workup consistent with osteomyelitis. Chronic osteomyelitis left great toe on Ceftin 500mg bid day 2, afebrile normal WBC, case discussed with ID she recommend 2 weeks of oral antibiotic MRI left foot showed osteomyelitis, osteo seen on prior foot x-rays wound culture showing E coli and Klebsiella oxytoca ESBL negative, blood cultures x2 negative patient underwent left leg angiogram, and had left anterior tibial and left popliteal artery angioplasty by Dr. Vaughn will continue aspirin and Plavix, outpatient follow-up with vascular surgery hypokalemia likely due to diuretics, repleted alkalosis likely related to contraction alkalosis with soft blood pressures, on Bumex 2 mg b.i.d. and Aldactone, bicarb improved to 34 after holding Bumex,s/p Diamox 250 b.i.d. 6 dosages Transaminitis trending down , cont. Lipitor, denies alcohol use. Ch.Cardiomyopathy with low EF 15-20% and grade 3 diastolic dysfunction, no acute exacerbate, on Coreg/ Entresto/ spironolactone/Bumex, recommend close outpatient follow-up with Cardiology, stop Lasix Diabetes type 2 is stable blood sugars continue ada diet, ss, lantus 12 u Opioid use disorder, on methadone/ being followed by care team Urinary retention. chronic continue indwelling Alberts, continue Flomax recommend outpatient Urology follow up DVT prophylaxis with Heparin Full code Will require ongoing hospitalization since family caseworker arranging for VNA services , patient not safe to be discharged without home health services, since cannot manage his care by himself. Quality Stroke Does the patient have a stroke diagnosis?: No VTE Prior VTE?: No VTE Risk Level:: Medical - moderate - high VTE Device Contraindication: Treatment Not Indicated VTE Drug Contraindication: N/A - Med Ordered
[2022-04-30 15:57] LABS: Glucose, Whole Blood 100 mg/dL (60-115)
[2022-04-30 19:36] LABS: Glucose, Whole Blood 156 mg/dL (60-115)
[2022-04-30] MEDS: Atorvastatin Calcium 20 MG TABLET PO (21:21)
[2022-04-30] MEDS: Montelukast Sodium 10 MG TABLET PO (21:22)
[2022-04-30] MEDS: Insulin Lispro 100 UNIT/ML 3 ML VIAL SUBCUT (21:22)
[2022-04-30] MEDS: Tamsulosin HCL 0.4 MG CAPSULE PO (21:22)
[2022-04-30] MEDS: Insulin Glargine,Hum.rec.anlog 100 UNIT/ML 10 ML VIAL 12 UNIT SUBCUT (21:23)
[2022-05-01] VITALS (7 sets, daily range): BP systolic 91–116; BP diastolic 51–69; PULSE 61–74; RESP 17–20; TEMP 36.1–36.4; O2SAT 97–99
[2022-05-01 08:12] LABS: Glucose, Whole Blood 114 mg/dL (60-115)
[2022-05-01] MEDS: Gabapentin 100 MG CAPSULE 200 MG PO ×2 (09:05→20:44)
[2022-05-01] MEDS: carvediloL 6.25 MG TABLET PO (09:05)
[2022-05-01] MEDS: Aspirin Enteric Coated 81 MG TABLET.DR PO (09:05)
[2022-05-01] MEDS: Zinc Sulfate 220 MG CAPSULE PO (09:06)
[2022-05-01] MEDS: Sacubitril/Valsartan 24/26 1 TAB TABLET PO (09:06)
[2022-05-01] MEDS: Famotidine 20 MG TABLET PO ×2 (09:06→20:45)
[2022-05-01] MEDS: Loratadine 10 MG TABLET PO (09:06)
[2022-05-01] MEDS: Bumetanide 1 MG TABLET 2 MG PO (09:06)
[2022-05-01] MEDS: Clopidogrel Bisulfate 75 MG TABLET PO (09:06)
[2022-05-01] MEDS: methADONE HCl 20 MG/2 ML ORAL.CONC 50 MG PO (09:06)
[2022-05-01] MEDS: Spironolactone 25 MG TABLET 12.5 MG PO (09:06)
[2022-05-01] MEDS: 0.9 % Sodium Chloride Flush 3 ML SYRINGE IVFLUSH (09:07)
[2022-05-01 11:51] LABS: Glucose, Whole Blood 160 mg/dL (60-115)
[2022-05-01] MEDS: Insulin Lispro 100 UNIT/ML 3 ML VIAL SUBCUT (12:07)
--- NOTE | 2022-05-01 13:22 | P.PNIM_ITS ---
Subjective Subjective Date of Service: 05/01/22 Interval History: This history was taken in [place] from the patient. Denies foot pain No fever Review of Systems Review of Systems: Yes all other systems are reviewed and are negative Physical Exam Vital Signs: Vital Signs: Last Vital Signs Temp 97.2 F 05/01/22 12:00 Pulse 71 05/01/22 12:00 Resp 18 05/01/22 12:00 BP 116/69 05/01/22 12:00 Pulse Ox 99 05/01/22 12:00 O2 Del Method 05/01/22 12:00 O2 Flow Rate 100 04/28/22 04:00 BMI result Body Mass Index 25.4 Gen: in no acute distress HEENT: sclera anicteric, moist mucus membranes Neck: supple Lungs: clear to auscultation bilaterally Heart: regular rate and rhythm, no murmurs Abd: soft, non-tender, non-distended : Alberts draining clear urine Ext: no edema, s/p R BKA, L great toe ulcer without drainage or purulence Skin: warm/well-perfused Neuro: alert and oriented x3, no focal findings Psych: appropriate affect Objective Data Active Medications Acetaminophen (Acetaminophen 325 Mg Tablet) 650 mg PO Q6H PRN PRN Reason: Pain, Mild (Pain Scale 1-3) Albuterol Sulfate (Albuterol Sulfate 90 Mcg 8 Gm Inhaler) 2 puff INHALE Q4H PRN PRN Reason: dyspnea Aspirin (Aspirin Enteric Coated 81 Mg Tablet.) 81 mg PO DAILY [facility] Last Admin: 05/01/22 09:05 Dose: 81 mg Documented By: TRINY Atorvastatin Calcium (Atorvastatin Calcium 20 Mg Tablet) 20 mg PO BEDTIME [facility] Last Admin: 04/30/22 21:21 Dose: 20 mg Documented By: TNOEY Bumetanide (Bumetanide 1 Mg Tablet) 2 mg PO BID@0800,1700 [facility]; Protocol Last Admin: 05/01/22 09:06 Dose: 2 mg Documented By: TRINY Carvedilol (Carvedilol 6.25 Mg Tablet) 6.25 mg PO BID [facility]; Protocol Last Admin: 05/01/22 09:05 Dose: 6.25 mg Documented By: TRINY Cefuroxime Axetil (Cefuroxime Axetil 500 Mg Tablet) 500 mg PO Q12H [facility] Last Admin: 05/01/22 09:06 Dose: 500 mg Documented By: TRINY Clopidogrel Bisulfate (Clopidogrel Bisulfate 75 Mg Tablet) 75 mg PO DAILY [facility] Last Admin: 05/01/22 09:06 Dose: 75 mg Documented By: TRINY Famotidine (Famotidine 20 Mg Tablet) 20 mg PO BID [facility] Last Admin: 05/01/22 09:06 Dose: 20 mg Documented By: TRINY Gabapentin (Gabapentin 100 Mg Capsule) 200 mg PO TID [facility] Last Admin: 05/01/22 09:05 Dose: 200 mg Documented By: TRINY Heparin Sodium (Porcine) (Heparin Sodium,Porcine 5,000 Unit/Ml Vial) 5,000 unit SUBCUT Q8H [facility] Last Admin: 05/01/22 12:00 Dose: Not Given Documented By: TRINY Non-Admin Reason: Patient Refused Insulin Glargine (Insulin Glargine,Hum.Rec.Anlog 100 Unit/Ml 10 Ml Vial) 12 unit SUBCUT BEDTIME [facility] Last Admin: 04/30/22 21:23 Dose: 12 unit Documented By: TONEY Insulin Human Lispro (Insulin Lispro 100 Unit/Ml 3 Ml Vial) 0 unit SUBCUT QIDAC [facility]; Protocol Last Admin: 05/01/22 12:07 Dose: 2 unit Documented By: TRINY Lidocaine (Lidocaine 4 % Patch Adh..Patch) 1 patch TRANSDERMA DAILY [facility] Last Admin: 05/01/22 09:07 Dose: Not Given Documented By: TRINY Non-Admin Reason: Patient Refused Loratadine (Loratadine 10 Mg Tablet) 10 mg PO DAILY [facility] Last Admin: 05/01/22 09:06 Dose: 10 mg Documented By: TRINY Methadone HCl (Methadone Hcl 20 Mg/2 Ml Oral.Conc) 50 mg PO DAILY [facility] Last Admin: 05/01/22 09:06 Dose: 50 mg Documented By: TRINY Montelukast Sodium (Montelukast Sodium 10 Mg Tablet) 10 mg PO BEDTIME [facility] Last Admin: 04/30/22 21:22 Dose: 10 mg Documented By: TONEY Pharmacy Consult (Consult Rx Perform Med Rec) 1 each MISCELLANE ONCE PRN PRN Reason: Consult order Sacubitril/Valsartan (Sacubitril/Valsartan 1 Tab Tablet) 1 tab PO BID [facility]; Protocol Last Admin: 05/01/22 09:06 Dose: 1 tab Documented By: TRINY Sodium Chloride (0.9 % Sodium Chloride Flush 3 Ml Syringe) 3 ml IVFLUSH QSHIFT [facility] Last Admin: 05/01/22 09:07 Dose: 3 ml Documented By: TRINY Spironolactone (Spironolactone 25 Mg Tablet) 12.5 mg PO DAILY [facility]; Protocol Last Admin: 05/01/22 09:06 Dose: 12.5 mg Documented By: TRINY Tamsulosin HCl (Tamsulosin Hcl 0.4 Mg Capsule) 0.4 mg PO BEDTIME [facility] Last Admin: 04/30/22 21:22 Dose: 0.4 mg Documented By: TONEY Zinc Sulfate (Zinc Sulfate 220 Mg Capsule) 220 mg PO DAILY [facility] Last Admin: 05/01/22 09:06 Dose: 220 mg Documented By: TRINY Labs CBC & Chem 7: 04/28/22 06:25 04/28/22 06:25 Labs: Laboratory Results - last 24 hr 04/30/22 04/30/22 05/01/22 15:16 19:29 07:50 POC Glucose 100 156 H 114 05/01/22 11:30 POC Glucose 160 H Assessment and Plan (1) Osteomyelitis of great toe: Status: Acute (2) Transaminitis: Status: Acute (3) Diabetes mellitus, type 2: Status: Acute (4) Opiate abuse, continuous: Status: Acute Plan hospital d#10 51yo M with insulin-dependent DM2, PVD presented with L great toe wound concerning for osteomyelitis # chronic osteomyelitis of L great toe - on cefuroxime d#01/24 per ID; wound Cx growing E. coli + Klebsiella oxytoca, ESBL negative, BCx negative # PVD - s/p L anterior tibial artery, L popliteal artery angioplastry by Dr Vaughn 04/27/22; continue DAPT, outpt f/u with Dr vaughn # hypoK - repleted; was due to diuretics # contraction alkalosis - held bumetanide + spironolactone, given acetazolamide, improved; back on bumetanide + spironolactone # transaminasemia - improving. denies EtOH abuse # cardiomyopathy/chronic HFrEF 15-20% + gr 3 diastolic dysfunction - continue carvedilol, Entresto, spironolactone, bumetanide - outpt Cardiology f/u # DM2 - basal/bolus insulin # OUD - methadone # chronic urinary retention - Alberts, tamsulosin; outpt Uro f/u # VTE ppx: UFH # dispo: will require ongoing hospitalization since case preparer and liner arranging for VNA services , patient not safe to be discharged without home health services, since cannot manage his care by himself. Quality Stroke Does the patient have a stroke diagnosis?: No VTE Prior VTE?: No VTE Risk Level:: Medical - moderate - high VTE Device Contraindication: Treatment Not Indicated VTE Drug Contraindication: N/A - Med Ordered
[2022-05-01 16:11] LABS: Glucose, Whole Blood 40 mg/dL (60-115)
[2022-05-01 16:33] LABS: Glucose, Whole Blood 178 mg/dL (60-115)
--- NOTE | 2022-05-01 19:20 | PC.NURSE ---
This received MD order to remove triple lumen catheter. This nurse explained procedure to pt. with help of integration lead and removed triple lumen catheter intact along with sutures. Pt tolerated well with minimal bleeding with pressure held for 5 minutes.
[2022-05-01 19:56] LABS: Glucose, Whole Blood 118 mg/dL (60-115)
[2022-05-01] MEDS: Atorvastatin Calcium 20 MG TABLET PO (20:45)
[2022-05-01] MEDS: Montelukast Sodium 10 MG TABLET PO (20:45)
[2022-05-01] MEDS: Tamsulosin HCL 0.4 MG CAPSULE PO (20:45)
[2022-05-02] VITALS (7 sets, daily range): BP systolic 90–121; BP diastolic 55–64; PULSE 65–94; RESP 17–20; TEMP 36.2–36.9; O2SAT 96–99
[2022-05-02 07:48] LABS: Glucose, Whole Blood 128 mg/dL (60-115)
[2022-05-02 07:53] LABS: Alanine Aminotransferase 24 U/L (0-40); Albumin Level 3.2 g/dL (3.5-5.0); Alkaline Phosphatase 96 U/L (39-117); Anion Gap 15 (12-20); Aspartate Amino Transferase 38 U/L (5-37); Bilirubin Total 1.3 mg/dL (0.0-1.0); Blood Urea Nitrogen 36 mg/dL (9-16); Calcium 8.8 mg/dL (8.4-10.2); Carbon Dioxide 24 mmol/L (22-29); Chloride 99 mmol/L (96-108); Creatinine Clr Calc Pharmacy 61.2; Estimated Glomerular Filt Rate 55; Glucose Random 111 mg/dL (60-115); Potassium 3.8 mmol/L (3.3-5.1); Sodium 134 mmol/L (135-145); Total Protein 6.8 g/dL (6.5-8.0)
[2022-05-02 08:22] LABS: Estimated Average Glucose 140 mg/dL; Hemoglobin A1c % 6.5 %
--- NOTE | 2022-05-02 08:59 | P.PNVS_ITS ---
Subjective Subjective Date of Service: 05/02/22 Patient reports: no new complaints and feels better Interval history: Patient seen and examined. Events over the past few days and we can were noted. Patient doing extremely well. No interval issues. Reports that the left foot is doing well. He is now for routine vascular follow-up. Physical Exam Vital Signs: Vital Signs: Last Vital Signs Temp 97.6 F 05/02/22 07:44 Pulse 72 05/02/22 07:44 Resp 17 05/02/22 07:44 BP 121/59 L 05/02/22 07:44 Pulse Ox 98 05/02/22 07:44 O2 Del Method 05/02/22 07:44 O2 Flow Rate 100 04/28/22 04:00 BMI result Body Mass Index 25.4 Const: General: cooperative, healthy appearing and no acute distress Orientation/consciousness: oriented to person, oriented to place and oriented to time HEENT: Head: Yes normal to inspection Neck: Carotids: no bruits Chest: Chest palpation & inspection: normal inspection of the chest Resp: Effort & Inspection: normal respiratory effort and able to speak in complete sentences Auscultation: clear to auscultation bilaterally Cardio: Rate: regular rate Heart sounds: S1 normal heart sound present and S2 normal heart sound present GI: Inspection: Yes normal to inspection Skin: General skin exam: no rashes or lesions noted Wounds: wounds noted (Left great toe wound healing well) Neuro: General: oriented to person, oriented to place, oriented to time and CN's II-XI intact bilaterally Extrem: General: Yes normal to inspection, Yes full ROM and Yes no clubbing, cyanosis or edema Psych: Appearance: grossly normal and well kempt Speech and movement: Normal speech and movement present Affect: normal affect Progress Note: A&P Assessment and plan (1) Peripheral arterial disease: Status: Acute Assessment and Plan: In short patient is doing well with endovascular intervention and local wound c are. Left great toe appears to be progressing well. Dressing was changed this morning. Would continue with local wound care. Upon discharge can follow-up with me as an outpatient in approximately 2 weeks time. Thank you for allowing us to assist in his care. Time Spent With Patient Time: Total time spent is greater than 50% in coordination of care (as documented) at patient's floor/unit and/or counseling patient: Procedures Date of Service Date of Service: 05/02/22 Quality Stroke Does the patient have a stroke diagnosis?: No VTE Prior VTE?: No VTE Risk Level:: Medical - moderate - high VTE Device Contraindication: Treatment Not Indicated VTE Drug Contraindication: N/A - Med Ordered
[2022-05-02] MEDS: Bumetanide 1 MG TABLET 2 MG PO ×2 (09:24→16:47)
[2022-05-02] MEDS: Aspirin Enteric Coated 81 MG TABLET.DR PO (09:24)
[2022-05-02] MEDS: Gabapentin 100 MG CAPSULE 200 MG PO (09:24)
[2022-05-02] MEDS: Clopidogrel Bisulfate 75 MG TABLET PO (09:24)
[2022-05-02] MEDS: Sacubitril/Valsartan 24/26 1 TAB TABLET PO (09:25)
[2022-05-02] MEDS: carvediloL 6.25 MG TABLET PO (09:25)
[2022-05-02] MEDS: Famotidine 20 MG TABLET PO (09:25)
[2022-05-02] MEDS: Zinc Sulfate 220 MG CAPSULE PO (09:25)
[2022-05-02] MEDS: Spironolactone 25 MG TABLET 12.5 MG PO (09:25)
[2022-05-02] MEDS: Loratadine 10 MG TABLET PO (09:25)
[2022-05-02] MEDS: methADONE HCl 20 MG/2 ML ORAL.CONC 50 MG PO (09:26)
[2022-05-02 11:33] LABS: Glucose, Whole Blood 169 mg/dL (60-115)
[2022-05-02] MEDS: Insulin Lispro 100 UNIT/ML 3 ML VIAL SUBCUT ×2 (12:11→16:47)
--- NOTE | 2022-05-02 13:16 | PM.DS ---
DS: Providers Provider Date of Service: 05/04/22 Date of admission: 04/22/22 18:08 Date of discharge: 05/04/22 Primary care physician: [facility] Consults: 04/25/22 10:15 Consult to Vascular Surgery Routine Consulting Provider: Stan Vaughn Reason for consultation: Osteomyelitis great toe Has provider been notified: No 04/28/22 07:45 Consult to Infectious Diseases Routine Consulting Provider: Zully Roblero Reason for consultation: left big toe osteo Has provider been notified: No DS: Diagnosis Discharge Diagnosis (1) Peripheral arterial disease: Status: Acute (2) Osteomyelitis of great toe: Status: Acute (3) Type 2 diabetes mellitus with hypoglycemia: Status: Acute (4) Chronic osteomyelitis: Status: Acute (5) Hypokalemia: Status: Acute (6) Alkalosis, metabolic: Status: Acute (7) Chronic HFrEF (heart failure with reduced ejection fraction): Status: Acute DS: Summary Hospital Course Hospital Course: from admission H+P by hospitalist Wilfred Dueñas, DO: Date of Service: 04/22/22 Chief Complaint: Osteomyelitis ?51-year-old male past medical history significant for type 2 diabetes and significant vascular disease recently discharged from [facility] after presenting with a lactic acid of 10.? Seen in consultation by Renal; felt this was due to chronic marijuana use as a patient appeared nontoxic without supporting factors to substantiate this is a true lactic acidosis. Initially he came in as an altered mental status however was clear the next morning.? He did develop some urinary retention for which a indwelling catheter was placed and he was scheduled for follow-up as an outpatient with Urology.? He presents today with an infected left great toe which he states he wound himself by scratching.? X-ray is suspicious for osteomyelitis.? At this point he will be admitted on IV antibiotics with blood culture and subsequent MRI to document extent Hospital course by problem: This 51yo M with insulin-dependent DM2, PVD presented with a L great toe wound concerning for osteomyelitis. Wound culture grew E. coli and Klebsiella oxytoca. Blood cultures negative. He was seen by ID and Vascular Surgery and demeed to have chronic osteomyelitis. He was treated with cefuroxime to complete 14 days. As for peripheral vascular disease, he underwent L anterior tibial and L popliteal artery angioplasty by Dr Vaughn 04/27/22. Dual antiplatelet therapy was continued and he will need follow-up with Dr Vaughn in 1 week. Hypokalemia and contraction alkalosis resolved and his home diuretics were re-started. Neurohormonal modulation for his chronic cardiomyopathy [HFrEF 15-20% + grade 3 diastlic dysfunction] was continued with carvedilol and Entresto and Cardiology follow-up in 2 weeks is advised. Discharge to [facility] for short-term rehabilitation was highly recommended and offered on multiple occasions; however, the patient refused, recognizing that visiting nurse services would not be available. He should follow up with his primary care doctor and vascular surgeon and micromatic hone operator within 1-2 weeks. Time Spent with Patient Time attestation: Total time spent providing and/or coordinating discharge services: 35 Discharge coordination time: Greater than 30 minutes Quality: Safe Use of Opioids Does Pt have an Active Cancer Diagnosis on the Problem List?: No Quality: Stroke Does the patient have a stroke diagnosis?: No Physical Exam Vital Signs: Vital Signs: Temp Pulse Resp BP Pulse Ox O2 Del Method O2 Flow Rate 97.3 F 69 17 140/62 H 98 100 05/04/22 10:53 05/04/22 10:53 05/04/22 10:53 05/04/22 10:53 05/04/22 10:53 05/04/22 10:53 04/28/22 04:00 Gen: in no acute distress HEENT: sclera anicteric, moist mucus membranes Neck: supple Lungs: clear to auscultation bilaterally Heart: regular rate and rhythm, no murmurs Abd: soft, non-tender, non-distended Ext: no edema, s/p R BKA, L great toe ulcer without drainage or purulence Skin: warm/well-perfused Neuro: alert and oriented x3, no focal findings Psych: appropriate affect DS: Data Data Completed and Pending Completed studies during hospitalization [Text1]: Laboratory Results WBC 6.5 X10*3/uL (4.8-10.8) 04/28/22 06:25 RBC 4.39 X10*6/uL (4.60-5.80) L 04/28/22 06:25 Hgb 12.0 g/dl (14.0-18.0) L 04/28/22 06:25 Hct 38.8 % (42.0-52.0) L 04/28/22 06:25 MCV 88.4 fL (80.0-98.0) 04/28/22 06:25 MCH 27.3 pg (27.0-33.0) 04/28/22 06:25 MCHC 30.9 g/dl (31.0-36.0) L 04/28/22 06:25 RDW 23.0 % (11.0-16.0) H 04/28/22 06:25 Plt Count 123 X10*3/uL (160-400) L 04/28/22 06:25 MPV 10.7 fL (9.4-12.4) 04/28/22 06:25 Immature Gran % (Auto) 0.3 % (0.0-0.4) 04/28/22 06:25 Neut % (Auto) 55.1 % (45-73) 04/28/22 06:25 Lymph % (Auto) 21.2 % (20-40) 04/28/22 06:25 [place] % (Auto) 17.7 % (2-11) H 04/28/22 06:25 Eos % (Auto) 5.1 % (0-4) H 04/28/22 06:25 Baso % (Auto) 0.6 % (0-2) 04/28/22 06:25 Lymph # (Auto) 1.4 X10*3/uL (1.2-4.9) 04/28/22 06:25 [place] # (Auto) 1.2 X10*3/uL (0.1-1.2) 04/28/22 06:25 Eos # (Auto) 0.3 X10*3/uL (0.0-0.4) 04/28/22 06:25 Baso # (Auto) 0.0 X10*3/uL (0.0-0.2) 04/28/22 06:25 Abs Immat Gran (auto) 0.02 X10*3/uL (0.00-0.03) 04/28/22 06:25 Absolute Neuts (auto) 3.6 x10*3/uL (2.0-8.3) 04/28/22 06:25 Absolute Nucleated RBC 0.000 X10*3/uL (0.0-0.012) 04/28/22 06:25 Nucleated RBC % (auto) 0.0 /100WBC (0.0-0.2) 04/28/22 06:25 Smear Tech's Comments VERIFIED 04/27/22 05:30 Sodium 134 mmol/L (135-145) L 05/02/22 06:27 Potassium 3.8 mmol/L (3.3-5.1) 05/02/22 06:27 Chloride 99 mmol/L (96-108) 05/02/22 06:27 Carbon Dioxide 24 mmol/L (22-29) 05/02/22 06:27 Anion Gap 15 (12-20) 05/02/22 06:27 BUN 36 mg/dL (9-16) H D 05/02/22 06:27 Creatinine 1.35 mg/dL (0.5-1.4) 05/02/22 06:27 Estim Creat Clear Calc 61.2 05/02/22 06:27 Estimated GFR 55 05/02/22 06:27 POC Glucose 190 mg/dL (60-115) H 05/04/22 10:50 Random Glucose 111 mg/dL (60-115) 05/02/22 06:27 Fasting Glucose 163 mg/dL (60-99) H D 04/28/22 06:25 Estimat Average Glucose 140 mg/dL 05/02/22 06:27 Hemoglobin A1c % 6.5 % 05/02/22 06:27 Lactic Acid 3.6 mmol/L (0.5-2.0) H* 04/23/22 06:07 Lactic Acid F/U @ 2Hr 3.7 mmol/L (0.5-2.0) H* 04/23/22 09:41 Lactic Acid F/U @ 4Hr 2.9 mmol/L (0.5-2.0) H* 04/23/22 13:20 Calcium 8.8 mg/dL (8.4-10.2) 05/02/22 06:27 Total Bilirubin 1.3 mg/dL (0.0-1.0) H 05/02/22 06:27 AST 38 U/L (5-37) H 05/02/22 06:27 ALT 24 U/L (0-40) 05/02/22 06:27 Alkaline Phosphatase 96 U/L (39-117) 05/02/22 06:27 C-Reactive Protein 2.20 mg/dL (< or = 0.50) H 04/22/22 17:18 Total Protein 6.8 g/dL (6.5-8.0) 05/02/22 06:27 Albumin 3.2 g/dL (3.5-5.0) L 05/02/22 06:27 Urine Color DK YELLOW 04/22/22 17:18 Urine Appearance HAZY 04/22/22 17:18 Urine pH 5.5 (5.0-8.0) 04/22/22 17:18 Ur Specific [place] >= 1.030 (1.005-1.025) H 04/22/22 17:18 Urine Protein 2+ MG/DL (NEG-TRACE) H 04/22/22 17:18 Urine Glucose (UA) NEG MG/DL (NEG) 04/22/22 17:18 Urine Ketones NEG MG/DL (NEG) 04/22/22 17:18 Urine Blood 3+ (NEG) H 04/22/22 17:18 Urine Nitrite NEG (NEG) 04/22/22 17:18 Ur Leukocyte Esterase NEG (NEG) 04/22/22 17:18 Urine RBC 10-14 /HPF (0) H 04/22/22 17:18 Urine WBC 0-2 /HPF (0-4) 04/22/22 17:18 Ur Squamous Epith Cells 1+ /LPF 04/22/22 17:18 Ur Renal Epithelial Cell 2+ /LPF 04/22/22 17:18 Amorphous Sediment 2+ /LPF 04/22/22 17:18 Urine Bacteria NONE /LPF 04/22/22 17:18 Epithelial Casts 1-4 /LPF 04/22/22 17:18 Hyaline Casts 30-49 /LPF 04/22/22 17:18 Urine Mucus 3+ /LPF 04/22/22 17:18 Urine Opiates Screen Not Detected (Not Detect) 04/22/22 17:18 Urine Fentanyl Screen Not Detected (Not Detect) 04/22/22 17:18 Ur Barbiturates Screen Not Detected (Not Detect) 04/22/22 17:18 Ur Phencyclidine Scrn Not Detected (Not Detect) 04/22/22 17:18 Ur Amphetamines Screen Not Detected (Not Detect) 04/22/22 17:18 U Benzodiazepines Scrn Not Detected (Not Detect) 04/22/22 17:18 Urine Cocaine Screen Not Detected (Not Detect) 04/22/22 17:18 U Marijuana (THC) Screen POSITIVE (Not Detect) H 04/22/22 17:18 Ethyl Alcohol < 10 mg/dL 04/22/22 17:18 COVID-19 (JAMILA) Negative (Negative) 05/02/22 13:30 COVID-19 Clin Com See Note 05/02/22 13:30 Impressions Foot X-Ray 04/22/22 13:34 IMPRESSION: Bony destruction of the distal first digit highly consistent with osteomyelitis. Chest X-Ray 04/22/22 19:13 IMPRESSION: No interval change when compared to the study from earlier this evening. Cardiomegaly and mild CHF. Foot MRI 04/25/22 13:46 IMPRESSION: Wound/ulceration along the dorsal aspect of the 1st interphalangeal joint with associated cellulitis. No evidence of abscess formation. Erosion of the 1st proximal phalangeal head and distal phalangeal base with mild edema and enhancement, consistent with acute osteomyelitis/septic arthritis. No associated joint effusion. Abd US Ao-IVC-[id number] 04/25/22 16:20 IMPRESSION: 1. Status post right leg below-knee amputation with multiphasic flow present throughout the remainder of the lower extremity 2. On the left, VANCE demonstrates mild peripheral vascular disease with monophasic flow throughout the lower extremity with the exception of the common femoral artery. No focal areas of velocity acceleration are seen to suggest tight focal stenosis. Duplex Scan Lower Extremity Artery 04/25/22 16:20 IMPRESSION: 1. Status post right leg below-knee amputation with multiphasic flow present throughout the remainder of the lower extremity 2. On the left, VANCE demonstrates mild peripheral vascular disease with monophasic flow throughout the lower extremity with the exception of the common femoral artery. No focal areas of velocity acceleration are seen to suggest tight focal stenosis. Discharge Plan Discharge Patient Disposition: Home, Self-Care Discharge Diagnosis: # chronic osteomyelitis of L great toe # PVD # hypokalemia # contraction alkalosis # cardiomyopathy/chronic HFrEF 15-20% + gr 3 diastolic dysfunction # type 2 diabetes mellitus with hypoglycemia Referrals: [place] [Primary Care Provider] - 1 Week Stan Vaughn MD [Physician] - 1 Week Bishop Francisco MD [Physician] - 2 Weeks Discharge Medications: New cefuroxime axetil 500 mg Tablet 500 mg PO Q12H Qty: 20 0RF Continued bumetanide 2 mg Tablet 2 mg PO BID Entresto 24-26 mg tablet 1 tab PO BID carvedilol 6.25 mg tablet 1 tab PO BID atorvastatin 20 mg tablet 1 tab PO BEDTIME cetirizine 10 mg tablet 1 tab PO QAM clopidogrel 75 mg tablet 1 tab PO QAM aspirin 81 mg tablet,delayed release (DR/EC) 1 tab PO QAM spironolactone 25 mg tablet 0.5 tab PO QAM famotidine 20 mg tablet 1 tab PO BID tamsulosin 0.4 mg capsule 1 cap PO QPM lidocaine [Lidoderm] 5 % adhesive patch,medicated 1 patch topical DAILY fluticasone propion-salmeterol [Advair Diskus] 500-50 mcg/dose blister with device 1 puff PO BID montelukast 10 mg tablet 1 tab PO QPM gabapentin 100 mg capsule 2 cap PO TID albuterol sulfate [ProAir HFA] 90 mcg/actuation HFA aerosol inhaler 2 puff inhalation Q4-6H PRN (Reason: dyspnea) fluticasone propionate 50 mcg/actuation spray,suspension 1 - 2 spray intranasal DAILY PRN (Reason: Allergy Symptoms) zinc sulfate 50 mg zinc (220 mg) capsule 1 cap PO DAILY insulin aspart U-100 [Novolog Flexpen U-100 Insulin] 100 unit/mL (3 mL) Insulin Pen 5 unit SUBCUT TID methadone 10 mg/mL Concentrate 52 mg PO DAILY Discontinued furosemide 40 mg tablet 1 tab PO DAILY insulin glargine [Lantus Solostar U-100 Insulin] 100 unit/mL (3 mL) insulin pen 12 unit subcut BEDTIME Discharge Orders: Discharge Order (Routine); Ordered 05/04/22 Ordered By: Juan Delcid Diet: diabetic diet and low salt diet Activity on Discharge: As tolerated Stand Alone Forms: Patient Portal Discharge page Care Plan Goals: vascular health cardiac health Health Concerns: # chronic osteomyelitis of L great toe # PVD # hypokalemia # contraction alkalosis # cardiomyopathy/chronic HFrEF 15-20% + gr 3 diastolic dysfunction # type 2 diabetes mellitus with hypoglycemia Plan of Treatment: # chronic osteomyelitis of L great toe: take cefuroxime 500 mg bid x 10 days d#01/24 per ID; wound Cx growing E. coli + Klebsiella oxytoca, ESBL negative, BCx negative # PVD: continue aspirin and clopidogrel and follow up with Dr Vaughn in 1 week # hypokalemia: resolved # contraction alkalosis: resolved # cardiomyopathy/chronic HFrEF 15-20% + gr 3 diastolic dysfunction: continue spironolactone, carvedilol, Entresto, bumetanide; follow up with [facility] Cardiology in 2 weeks # type 2 diabetes mellitus with hypoglycemia: stop Lantus. continue Novolog see your primary care doctor in 1 week You refused to go to SNF for rehablitation. You understand that a visiting nurse will not come out to see you. It is up to you to transport yourself to your methadone clinic. Assessment: See Discharge Summary Patient Instructions: Peripheral Vascular Angioplasty (DC)
[2022-05-02 13:59] LABS: COVID-19 Test Negative (Negative); IDNOW Serial# 16C4AD1C
[2022-05-02 15:24] LABS: Glucose, Whole Blood 157 mg/dL (60-115)
--- NOTE | 2022-05-02 16:03 | HO.PM.IMPN ---
Subjective Subjective Date of Service: 05/02/22 Interval History: This history was taken in Romansh from the patient. no foot pain no N/V hypoglycemic yesterday afternoon; resolved with juice Review of Systems Review of Systems: Yes all other systems are reviewed and are negative Physical Exam Vital Signs: Vital Signs: Last Vital Signs Temp 97.1 F 05/02/22 15:04 Pulse 94 05/02/22 15:04 Resp 20 05/02/22 15:04 BP 90/55 L 05/02/22 15:04 Pulse Ox 97 05/02/22 15:04 O2 Del Method 05/02/22 15:04 O2 Flow Rate 100 04/28/22 04:00 BMI result Body Mass Index 25.4 Gen: in no acute distress HEENT: sclera anicteric, moist mucus membranes Neck: supple Lungs: clear to auscultation bilaterally Heart: regular rate and rhythm, no murmurs Abd: soft, non-tender, non-distended : [place] draining clear urine Ext: no edema, s/p R BKA, L great toe ulcer without drainage or purulence Skin: warm/well-perfused Neuro: alert and oriented x3, no focal findings Psych: appropriate affect ? Objective Data Active Medications Acetaminophen (Acetaminophen 325 Mg Tablet) 650 mg PO Q6H PRN PRN Reason: Pain, Mild (Pain Scale 1-3) Albuterol Sulfate (Albuterol Sulfate 90 Mcg 8 Gm Inhaler) 2 puff INHALE Q4H PRN PRN Reason: dyspnea Aspirin (Aspirin Enteric Coated 81 Mg Tablet.) 81 mg PO DAILY [facility] Last Admin: 05/02/22 09:24 Dose: 81 mg Documented By: MAURY Atorvastatin Calcium (Atorvastatin Calcium 20 Mg Tablet) 20 mg PO BEDTIME [facility] Last Admin: 05/01/22 20:45 Dose: 20 mg Documented By: ODRISM Bumetanide (Bumetanide 1 Mg Tablet) 2 mg PO BID@0800,1700 [facility]; Protocol Last Admin: 05/02/22 09:24 Dose: 2 mg Documented By: MAURY Carvedilol (Carvedilol 6.25 Mg Tablet) 6.25 mg PO BID [facility]; Protocol Last Admin: 05/02/22 09:25 Dose: 6.25 mg Documented By: MAURY Cefuroxime Axetil (Cefuroxime Axetil 500 Mg Tablet) 500 mg PO Q12H [facility] Last Admin: 05/02/22 09:24 Dose: 500 mg Documented By: MAURY Clopidogrel Bisulfate (Clopidogrel Bisulfate 75 Mg Tablet) 75 mg PO DAILY [facility] Last Admin: 05/02/22 09:24 Dose: 75 mg Documented By: MAURY Famotidine (Famotidine 20 Mg Tablet) 20 mg PO BID [facility] Last Admin: 05/02/22 09:25 Dose: 20 mg Documented By: MAURY Gabapentin (Gabapentin 100 Mg Capsule) 200 mg PO TID [facility] Last Admin: 05/02/22 15:03 Dose: Not Given Documented By: MAURY Non-Admin Reason: Patient Refused Heparin Sodium (Porcine) (Heparin Sodium,Porcine 5,000 Unit/Ml Vial) 5,000 unit SUBCUT Q8H [facility] Last Admin: 05/02/22 11:24 Dose: Not Given Documented By: MAURY Non-Admin Reason: Patient Refused Insulin Human Lispro (Insulin Lispro 100 Unit/Ml 3 Ml Vial) 0 unit SUBCUT QIDACHS [facility]; Protocol Last Admin: 05/02/22 12:11 Dose: 2 unit Documented By: MAURY Lidocaine (Lidocaine 4 % Patch Adh..Patch) 1 patch TRANSDERMA DAILY [facility] Last Admin: 05/02/22 09:17 Dose: Not Given Documented By: MAURY Non-Admin Reason: Patient Refused Loratadine (Loratadine 10 Mg Tablet) 10 mg PO DAILY [facility] Last Admin: 05/02/22 09:25 Dose: 10 mg Documented By: MAURY Methadone HCl (Methadone Hcl 20 Mg/2 Ml Oral.Conc) 50 mg PO DAILY [facility] Last Admin: 05/02/22 09:26 Dose: 50 mg Documented By: MAURY Montelukast Sodium (Montelukast Sodium 10 Mg Tablet) 10 mg PO BEDTIME [facility] Last Admin: 05/01/22 20:45 Dose: 10 mg Documented By: MATTHEW Pharmacy Consult (Consult Rx Perform Med Rec) 1 each MISCELLANE ONCE PRN PRN Reason: Consult order Sacubitril/Valsartan (Sacubitril/Valsartan 1 Tab Tablet) 1 tab PO BID [facility]; Protocol Last Admin: 05/02/22 09:25 Dose: 1 tab Documented By: MAURY Sodium Chloride (0.9 % Sodium Chloride Flush 3 Ml Syringe) 3 ml IVFLUSH QSHIFT [facility] Last Admin: 05/02/22 15:28 Dose: Not Given Documented By: MAURY Non-Admin Reason: No Access Spironolactone (Spironolactone 25 Mg Tablet) 12.5 mg PO DAILY [facility]; Protocol Last Admin: 05/02/22 09:25 Dose: 12.5 mg Documented By: MAURY Tamsulosin HCl (Tamsulosin Hcl 0.4 Mg Capsule) 0.4 mg PO BEDTIME [facility] Last Admin: 05/01/22 20:45 Dose: 0.4 mg Documented By: ODRISFelicity Zinc Sulfate (Zinc Sulfate 220 Mg Capsule) 220 mg PO DAILY [facility] Last Admin: 05/02/22 09:25 Dose: 220 mg Documented By: MAURY Labs CBC & Chem 7: 04/28/22 06:25 05/02/22 06:27 Labs: Laboratory Results - last 24 hr 05/01/22 05/01/22 05/01/22 15:30 16:28 19:24 Anion Gap Estim Creat Clear Calc Estimated GFR POC Glucose 40 L* 178 H 118 H Random Glucose Estimat Average Glucose Hemoglobin A1c % Calcium Total Bilirubin AST ALT Alkaline Phosphatase Total Protein Albumin COVID-19 (JAMILA) COVIDSchmoozer 05/02/22 05/02/22 05/02/22 06:27 06:27 07:42 Anion Gap 15 Estim Creat Clear Calc 61.2 Estimated GFR 55 POC Glucose 128 H Random Glucose 111 Estimat Average Glucose 140 Hemoglobin A1c % 6.5 Calcium 8.8 Total Bilirubin 1.3 H AST 38 H ALT 24 Alkaline Phosphatase 96 Total Protein 6.8 Albumin 3.2 L COVID-19 (JAMILA) COVIDSchmoozer 05/02/22 05/02/22 05/02/22 11:23 13:30 15:09 Anion Gap Estim Creat Clear Calc Estimated GFR POC Glucose 169 H 157 H Random Glucose Estimat Average Glucose Hemoglobin A1c % Calcium Total Bilirubin AST ALT Alkaline Phosphatase Total Protein Albumin COVID-19 (JAMILA) Negative COVIDSchmoozer See Note Assessment and Plan (1) Osteomyelitis of great toe: Status: Acute (2) Transaminitis: Status: Acute (3) Diabetes mellitus, type 2: Status: Acute (4) Opiate abuse, continuous: Status: Acute Plan hospital d#11 51yo M with insulin-dependent DM2, PVD presented with L great toe wound concerning for osteomyelitis # chronic osteomyelitis of L great toe - on cefuroxime d#02/24 per ID; wound Cx growing E. coli + Klebsiella oxytoca, ESBL negative, BCx negative # PVD - s/p L anterior tibial artery, L popliteal artery angioplastry by Dr Vaughn 04/27/22; continue DAPT, outpt f/u with Dr Vaughn # hypoK - repleted; was due to diuretics # contraction alkalosis - held bumetanide + spironolactone, given acetazolamide, improved; back on bumetanide + spironolactone # transaminasemia - improving. denies EtOH abuse # cardiomyopathy/chronic HFrEF 15-20% + gr 3 diastolic dysfunction - continue carvedilol, Entresto, spironolactone, bumetanide - outpt Cardiology f/u # DM2 with hypoglycemia - last A1c only 6.2. d/c basal insulin. continue prandial insulin correction-dose # OUD - methadone # chronic urinary retention - tamsulosin - trial voiding # VTE ppx: UFH # dispo: plan STR, [facility] In my clinical judgment, the patient requires continued hospitalization for the following reasons: safe dispo Quality Stroke Does the patient have a stroke diagnosis?: No VTE Prior VTE?: No VTE Risk Level:: Medical - moderate - high VTE Device Contraindication: Treatment Not Indicated VTE Drug Contraindication: N/A - Med Ordered
[2022-05-02 19:55] LABS: Glucose, Whole Blood 85 mg/dL (60-115)
[2022-05-03 03:18] VITALS: BP 114/66; PULSE 76; RESP 18; TEMP 37; O2SAT 98
[2022-05-03 07:27] VITALS: BP 106/63; PULSE 78; RESP 17; TEMP 36.4; O2SAT 99
[2022-05-03] MEDS: Sacubitril/Valsartan 24/26 1 TAB TABLET PO (07:28)
[2022-05-03] MEDS: Zinc Sulfate 220 MG CAPSULE PO (07:28)
[2022-05-03] MEDS: carvediloL 6.25 MG TABLET PO (07:28)
[2022-05-03] MEDS: Famotidine 20 MG TABLET PO (07:28)
[2022-05-03] MEDS: Gabapentin 100 MG CAPSULE 200 MG PO (07:28)
[2022-05-03] MEDS: Loratadine 10 MG TABLET PO (07:28)
[2022-05-03] MEDS: Spironolactone 25 MG TABLET 12.5 MG PO (07:29)
[2022-05-03] MEDS: Bumetanide 1 MG TABLET 2 MG PO ×2 (07:29→16:49)
[2022-05-03] MEDS: Clopidogrel Bisulfate 75 MG TABLET PO (07:29)
[2022-05-03] MEDS: Insulin Lispro 100 UNIT/ML 3 ML VIAL SUBCUT ×2 (07:30→16:49)
[2022-05-03] MEDS: methADONE HCl 20 MG/2 ML ORAL.CONC 50 MG PO (07:30)
[2022-05-03] MEDS: Aspirin Enteric Coated 81 MG TABLET.DR PO (07:30)
[2022-05-03 07:35] LABS: Glucose, Whole Blood 169 mg/dL (60-115)
--- NOTE | 2022-05-03 08:21 | MHC.CM.PN ---
PER CONVERSATION WITH PHARMACY, PATIENT'S METHADONE CLINIC IS [facility] ([place]) [phone]
[2022-05-03 11:26] LABS: Glucose, Whole Blood 139 mg/dL (60-115)
[2022-05-03 11:32] VITALS: BP 111/56; PULSE 65; RESP 16; TEMP 36.4; O2SAT 96
--- NOTE | 2022-05-03 13:53 | HO.PM.IMPN ---
Subjective Subjective Date of Service: 05/03/22 Interval History: This history was taken in Albanian from the patient. Refuses STR Trying to set up home services No pain Review of Systems Review of Systems: Yes all other systems are reviewed and are negative Physical Exam Vital Signs: Vital Signs: Last Vital Signs Temp 97.5 F 05/03/22 11:32 Pulse 65 05/03/22 11:32 Resp 16 05/03/22 11:32 BP 111/56 L 05/03/22 11:32 Pulse Ox 96 05/03/22 11:32 O2 Del Method 05/03/22 11:32 O2 Flow Rate 100 04/28/22 04:00 BMI result Body Mass Index 25.4 Gen: in no acute distress HEENT: sclera anicteric, moist mucus membranes Neck: supple Lungs: clear to auscultation bilaterally Heart: regular rate and rhythm, no murmurs Abd: soft, non-tender, non-distended Ext: no edema, s/p R BKA, L great toe ulcer without drainage or purulence Skin: warm/well-perfused Neuro: alert and oriented x3, no focal findings Psych: appropriate affect Objective Data Active Medications Acetaminophen (Acetaminophen 325 Mg Tablet) 650 mg PO Q6H PRN PRN Reason: Pain, Mild (Pain Scale 1-3) Albuterol Sulfate (Albuterol Sulfate 90 Mcg 8 Gm Inhaler) 2 puff INHALE Q4H PRN PRN Reason: dyspnea Aspirin (Aspirin Enteric Coated 81 Mg Tablet.) 81 mg PO DAILY [facility] Last Admin: 05/03/22 07:30 Dose: 81 mg Documented By: HILARY Atorvastatin Calcium (Atorvastatin Calcium 20 Mg Tablet) 20 mg PO BEDTIME [facility] Last Admin: 05/02/22 20:16 Dose: Not Given Documented By: MATTHEW Non-Admin Reason: Patient Refused Bumetanide (Bumetanide 1 Mg Tablet) 2 mg PO BID@0800,1700 [facility]; Protocol Last Admin: 05/03/22 07:29 Dose: 2 mg Documented By: HILARY Carvedilol (Carvedilol 6.25 Mg Tablet) 6.25 mg PO BID [facility]; Protocol Last Admin: 05/03/22 07:28 Dose: 6.25 mg Documented By: HILARY Cefuroxime Axetil (Cefuroxime Axetil 500 Mg Tablet) 500 mg PO Q12H [facility] Last Admin: 05/03/22 07:29 Dose: 500 mg Documented By: HILARY Clopidogrel Bisulfate (Clopidogrel Bisulfate 75 Mg Tablet) 75 mg PO DAILY [facility] Last Admin: 05/03/22 07:29 Dose: 75 mg Documented By: HILARY Famotidine (Famotidine 20 Mg Tablet) 20 mg PO BID [facility] Last Admin: 05/03/22 07:28 Dose: 20 mg Documented By: HILARY Gabapentin (Gabapentin 100 Mg Capsule) 200 mg PO TID [facility] Last Admin: 05/03/22 07:28 Dose: 200 mg Documented By: HILARY Heparin Sodium (Porcine) (Heparin Sodium,Porcine 5,000 Unit/Ml Vial) 5,000 unit SUBCUT Q8H [facility] Last Admin: 05/03/22 10:49 Dose: Not Given Documented By: HILARY Non-Admin Reason: Patient Refused Insulin Human Lispro (Insulin Lispro 100 Unit/Ml 3 Ml Vial) 0 unit SUBCUT QIDACHS [facility]; Protocol Last Admin: 05/03/22 11:37 Dose: Not Given Documented By: HILARY Non-Admin Reason: No Insulin Coverage Lidocaine (Lidocaine 4 % Patch Adh..Patch) 1 patch TRANSDERMA DAILY [facility] Last Admin: 05/03/22 07:31 Dose: Not Given Documented By: HILARY Non-Admin Reason: Patient Refused Loratadine (Loratadine 10 Mg Tablet) 10 mg PO DAILY [facility] Last Admin: 05/03/22 07:28 Dose: 10 mg Documented By: HILARY Methadone HCl (Methadone Hcl 20 Mg/2 Ml Oral.Conc) 50 mg PO DAILY [facility] Last Admin: 05/03/22 07:30 Dose: 50 mg Documented By: HIALRY Montelukast Sodium (Montelukast Sodium 10 Mg Tablet) 10 mg PO BEDTIME [facility] Last Admin: 05/02/22 20:17 Dose: Not Given Documented By: ARCHANARISM Non-Admin Reason: Patient Refused Pharmacy Consult (Consult Rx Perform Med Rec) 1 each MISCELLANE ONCE PRN PRN Reason: Consult order Sacubitril/Valsartan (Sacubitril/Valsartan 1 Tab Tablet) 1 tab PO BID [facility]; Protocol Last Admin: 05/03/22 07:28 Dose: 1 tab Documented By: HILARY Sodium Chloride (0.9 % Sodium Chloride Flush 3 Ml Syringe) 3 ml IVFLUSH QSHIFT [facility] Last Admin: 05/03/22 07:04 Dose: Not Given Documented By: HILARY Non-Admin Reason: No Access Spironolactone (Spironolactone 25 Mg Tablet) 12.5 mg PO DAILY [facility]; Protocol Last Admin: 05/03/22 07:29 Dose: 12.5 mg Documented By: HILARY Tamsulosin HCl (Tamsulosin Hcl 0.4 Mg Capsule) 0.4 mg PO BEDTIME [facility] Last Admin: 05/02/22 20:18 Dose: Not Given Documented By: ODRISM Non-Admin Reason: Patient Refused Zinc Sulfate (Zinc Sulfate 220 Mg Capsule) 220 mg PO DAILY [facility] Last Admin: 05/03/22 07:28 Dose: 220 mg Documented By: HILARY Labs CBC & Chem 7: 04/28/22 06:25 05/02/22 06:27 Labs: Laboratory Results - last 24 hr 05/02/22 05/02/22 05/02/22 13:30 15:09 19:48 POC Glucose 157 H 85 COVID-19 (JAMILA) Negative COVID-19 Clin Com See Note 05/03/22 05/03/22 07:17 11:11 POC Glucose 169 H 139 H COVID-19 (JAMILA) COVID-19 Clin Com Assessment and Plan (1) Osteomyelitis of great toe: Status: Acute (2) Transaminitis: Status: Acute (3) Diabetes mellitus, type 2: Status: Acute (4) Opiate abuse, continuous: Status: Acute Plan hospital d#12 51yo M with insulin-dependent DM2, PVD presented with L great toe wound concerning for osteomyelitis # chronic osteomyelitis of L great toe - on cefuroxime d#/ per ID; wound Cx growing E. coli + Klebsiella oxytoca, ESBL negative, BCx negative # PVD - s/p L anterior tibial artery, L popliteal artery angioplastry by Dr Vaughn 04/27/22; continue DAPT, outpt f/u with Dr Vaughn # hypoK - repleted; was due to diuretics # contraction alkalosis - held bumetanide + spironolactone, given acetazolamide, improved; back on bumetanide + spironolactone # transaminasemia - improved. denies EtOH abuse # cardiomyopathy/chronic HFrEF 15-20% + gr 3 diastolic dysfunction - continue carvedilol, Entresto, spironolactone, bumetanide - outpt Cardiology f/u # DM2 with hypoglycemia - last A1c only 6.2. d/c basal insulin. continue prandial insulin correction-dose # OUD - methadone # chronic urinary retention - tamsulosin. Alberts out. # VTE ppx: UFH # dispo: refuses STR, trying to set up home with VNA services given doubts about pt's ability to take care of self. 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 he is competent to make his own decisions. In my clinical judgment, the patient requires continued hospitalization for the following reasons: safe dispo Quality Stroke Does the patient have a stroke diagnosis?: No VTE Prior VTE?: No VTE Risk Level:: Medical - moderate - high VTE Device Contraindication: Treatment Not Indicated VTE Drug Contraindication: N/A - Med Ordered
--- NOTE | 2022-05-03 14:37 | MHC.CM.PN ---
PATIENT RECEIVED HIS COVID-19 BOOSTER TODAY MODERNA 05/03/22 THIS IS 3RD SHOT
[2022-05-03 16:00] VITALS: BP 97/60; PULSE 68; RESP 14; TEMP 36.6; O2SAT 99
[2022-05-03 16:37] LABS: Glucose, Whole Blood 207 mg/dL (60-115)
[2022-05-03] MEDS: 0.9 % Sodium Chloride Flush 3 ML SYRINGE IVFLUSH (16:51)
[2022-05-03 20:00] VITALS: BP 103/61; PULSE 55; RESP 18; TEMP 36.6; O2SAT 96
[2022-05-03 20:45] LABS: Glucose, Whole Blood 116 mg/dL (60-115)
[2022-05-03 23:47] VITALS: BP 114/61; PULSE 73; RESP 18; TEMP 36.6; O2SAT 99
[2022-05-04 03:36] VITALS: BP 94/52; PULSE 66; RESP 18; TEMP 36.6; O2SAT 96
[2022-05-04 07:42] LABS: Glucose, Whole Blood 146 mg/dL (60-115)
[2022-05-04] MEDS: Spironolactone 25 MG TABLET 12.5 MG PO (08:15)
[2022-05-04] MEDS: Gabapentin 100 MG CAPSULE 200 MG PO (08:15)
[2022-05-04] MEDS: Sacubitril/Valsartan 24/26 1 TAB TABLET PO (08:15)
[2022-05-04] MEDS: carvediloL 6.25 MG TABLET PO (08:15)
[2022-05-04] MEDS: Aspirin Enteric Coated 81 MG TABLET.DR PO (08:15)
[2022-05-04] MEDS: Famotidine 20 MG TABLET PO (08:16)
[2022-05-04] MEDS: Bumetanide 1 MG TABLET 2 MG PO (08:16)
[2022-05-04] MEDS: methADONE HCl 20 MG/2 ML ORAL.CONC 50 MG PO (08:16)
[2022-05-04] MEDS: Clopidogrel Bisulfate 75 MG TABLET PO (08:16)
[2022-05-04] MEDS: Loratadine 10 MG TABLET PO (08:16)
[2022-05-04] MEDS: Zinc Sulfate 220 MG CAPSULE PO (08:16)
[2022-05-04 08:36] VITALS: BP 140/64; PULSE 65; RESP 17; TEMP 36.6; O2SAT 95
[2022-05-04 10:53] VITALS: BP 140/62; PULSE 69; RESP 17; TEMP 36.3; O2SAT 98
[2022-05-04 11:19] LABS: Glucose, Whole Blood 190 mg/dL (60-115)
[2022-05-04] MEDS: Insulin Lispro 100 UNIT/ML 3 ML VIAL SUBCUT (12:05)
--- NOTE | 2022-05-04 13:07 | MHC.CM.PN ---
[facility] STILL WILLING TO OFFER BED. PATIENT REFUSES. PATIENT AWARE THAT NO VNA CAN COME TO THE HOME FOR [facility] AND REASONS FOR THIS WERE DISCUSSED AND UNDERSTOOD. PATIENT ALSO AWARE THAT [facility] WILL NOT PROVIDE A NURSE TO COME OUT TO A CAR OR GO TO PATIENT'S HOME, NOR CAN PATIENT RECEIVE TAKE-HOMES PATIENT STILL REFUSES TO GO TO [facility]. IT WAS EXPLAINED THAT CONTACT AT [facility] ([facility]) TELLS THIS [employer] MANAGER THAT PATIENT LIVES UNDER A STAIR CASE AND HAS NO RUNNING WATER OR ACCESS TO FOOD PATIENT STATES THAT THIS INFORMATION IS FALSE AND THAT HE IS GOING HOME.
== END 2022-05-04 15:26 | disposition home or self-care (01) | DRG 182 ==
LOC: HO.ED 18:15 → HO.EDOVER 18:27 → HO.S3 21:44
PROVIDERS: Family Medicine; Hospitalist; Nurse Practitioner Acute Care; Nurse Practitioner Family; Surgery Vascular Surgery; Admitting Provider Hospitalist; Emergency Provider Emergency Medicine; PCP Family Medicine; Visit Provider Family Medicine
PROC: 047N3Z1 Dilation of Left Popliteal Artery using Drug-Coated Balloon, Percutaneous Approach (ICD-10-PCS; principal; 2022-04-27 09:05)
DX: E11.51 Type 2 diabetes mellitus with diabetic peripheral angiopathy without gangrene (principal); E87.3 Alkalosis; E11.649 Type 2 diabetes mellitus with hypoglycemia without coma; E87.2 Acidosis; M86.672 Other chronic osteomyelitis, left ankle and foot; I42.9 Cardiomyopathy, unspecified; E11.69 Type 2 diabetes mellitus with other specified complication; L97.529 Non-pressure chronic ulcer of other part of left foot with unspecified severity; I70.245 Atherosclerosis of native arteries of left leg with ulceration of other part of foot; F11.20 Opioid dependence, uncomplicated; R33.9 Retention of urine, unspecified; T36.95XA Adverse effect of unspecified systemic antibiotic, initial encounter; B96.20 Unspecified Escherichia coli [E. coli] as the cause of diseases classified elsewhere; B96.1 Klebsiella pneumoniae [K. pneumoniae] as the cause of diseases classified elsewhere; T50.2X5A Adverse effect of carbonic-anhydrase inhibitors, benzothiadiazides and other diuretics, initial encounter; R74.01 Elevation of levels of liver transaminase levels; I50.42 Chronic combined systolic (congestive) and diastolic (congestive) heart failure; Z89.511 Acquired absence of right leg below knee; Z88.0 Allergy status to penicillin; Z88.2 Allergy status to sulfonamides; Z88.8 Allergy status to other drugs, medicaments and biological substances; Z79.4 Long term (current) use of insulin; Z79.02 Long term (current) use of antithrombotics/antiplatelets; Z79.51 Long term (current) use of inhaled steroids; Z79.899 Other long term (current) drug therapy
CPT/HCPCS: 36415; 37224; 37228; 71045; 73630; 73720; 76937; 80048; 80053; 80307; 81001; 82077; 82947; 83036; 83605; 85025; 86140; 87040; 87071; 87077; 87186; 87205; 87635; 93923; 93925; 96361; 96365; 97162; 99285; A9585; C1725; C1758; C1760; C1769; C1887; J0692; J2543; Q9967

== ENCOUNTER 2022-05-18 09:56 | Emergency (ER) | payer MEDICAID, SELFPAY ==
--- NOTE | ~2022-05-18 | XR_ITS ---
EXAMINATION: XR CHEST CLINICAL INFORMATION: Shortness of breath. COMPARISON: 04/22/2022 chest radiograph. TECHNIQUE: Frontal view of the chest was obtained. FINDINGS: Support devices: Interval removal of right central venous catheter. There is mild prominence of the pulmonary vasculature and cardiac silhouette. Mild blunting of the right costophrenic angle is seen. The mediastinal structures are unremarkable. XR/XR chest 1V IMPRESSION: Mild blunting of the right costophrenic angle was not seen previously and could represent a small right pleural effusion. Mild prominence of the pulmonary vasculature and cardiac silhouette may be baseline for the patient, but mild congestion cannot be excluded.
[2022-05-18 10:35] VITALS: BP 102/70; PULSE 64; RESP 16; TEMP 35.6; O2SAT 100; BMI 22.6
--- NOTE | 2022-05-18 10:48 | ED.SOB ---
HPI - SOB/Dyspnea General Chief Complaint: Dyspnea Stated Complaint: SOB,H/O ASTHMA PER EMS Time Seen by Provider: 05/18/22 10:36 History of Present Illness HPI Narrative: Patient is status post angioplasty of left popliteal and anterior tibial artery 04/27 on aspirin and Plavix with history of COPD, diabetes, ischemic cardiomyopathy, HFrEF comes here for 3 days of increased shortness of breath no chest pain no fever does have chronic left leg edema Related Data Home Medications Medication Instructions Recorded Confirmed albuterol sulfate 90 mcg/actuation 2 puff inhalation Q4-6H PRN dyspnea 03/08/22 04/22/22 aerosol inhaler (ProAir HFA) aspirin 81 mg tablet,delayed 1 tab PO QAM 03/08/22 04/22/22 release atorvastatin 20 mg tablet 1 tab PO BEDTIME 03/08/22 04/22/22 carvedilol 6.25 mg tablet 1 tab PO BID 03/08/22 04/22/22 cetirizine 10 mg tablet 1 tab PO QAM 03/08/22 04/22/22 clopidogrel 75 mg tablet 1 tab PO QAM 03/08/22 04/22/22 famotidine 20 mg tablet 1 tab PO BID 03/08/22 04/22/22 fluticasone 500 mcg-salmeterol 50 1 puff PO BID 03/08/22 04/22/22 mcg/dose blistr powdr for inhalation (Advair Diskus) fluticasone propionate 50 1 - 2 spray intranasal DAILY PRN 03/08/22 04/22/22 mcg/actuation nasal Allergy Symptoms spray,suspension gabapentin 100 mg capsule 2 cap PO TID 03/08/22 04/22/22 insulin aspart U-100 100 unit/mL 5 unit subcut TID 03/08/22 04/22/22 (3 mL) subcutaneous pen (Novolog Flexpen U-100 Insulin aspart) lidocaine 5 % topical patch 1 patch topical DAILY 03/08/22 04/22/22 (Lidoderm) methadone 10 mg/mL oral concentrate 52 mg PO DAILY 03/08/22 04/18/22 montelukast 10 mg tablet 1 tab PO QPM 03/08/22 04/22/22 spironolactone 25 mg tablet 0.5 tab PO QAM 03/08/22 04/22/22 tamsulosin 0.4 mg capsule 1 cap PO QPM 03/08/22 04/22/22 zinc sulfate 50 mg zinc (220 mg) 1 cap PO DAILY 03/08/22 04/22/22 capsule bumetanide 2 mg tablet 2 mg PO BID 03/30/22 04/22/22 sacubitril 24 mg-valsartan 26 mg 1 tab PO BID 03/30/22 04/22/22 tablet (Entresto) Previous Rx's Medication Instructions Recorded cefuroxime axetil 500 mg tablet 500 mg PO Q12H #20 tabs 05/02/22 Allergies Allergy/AdvReac Type Severity Reaction Status Date / Time ertapenem Allergy Intermediate Hives Verified 02/21/22 18:40 vancomycin [VANCOMYCIN] Allergy Intermediate HIVES Verified 02/21/22 18:40 Chocolate Allergy Unknown Rash Verified 02/21/22 18:40 ciprofloxacin [From CIPRO] Allergy Unknown SWELLING Verified 02/21/22 18:40 hydrocortisone [Cipro HC] Allergy Unknown Unknown Verified 02/21/22 18:40 sulfamethoxazole Allergy Unknown rash Verified 02/21/22 18:40 [From BACTRIM] trimethoprim [From BACTRIM] Allergy Unknown rash Verified 02/21/22 18:40 turkey [TURKEY] Allergy Unknown RASH Verified 02/21/22 18:40 Review of Systems Review of Systems: Yes all other systems are reviewed and are negative PMFSH Past Medical History Medical History Abscess or cellulitis of foot Acute on chronic anemia Acute on chronic combined systolic and diastolic congestive heart failure Acute on chronic HFrEF (heart failure with reduced ejection fraction) Acute respiratory failure with hypoxia Asthma Bipolar 1 disorder BPH (benign prostatic hyperplasia) CHF (congestive heart failure) CHF (congestive heart failure) CHF exacerbation Cholelithiasis Closed wedge compression fracture of T9 vertebra COPD (chronic obstructive pulmonary disease) Diabetes mellitus Diabetes mellitus, type 2 Elevated troponin GERD (gastroesophageal reflux disease) Hyperlipidemia Ischemic cardiomyopathy Lymphadenopathy Opiate abuse, continuous Osteomyelitis Osteomyelitis of great toe Peripheral arterial disease Peripheral neuropathy Peripheral vascular disease Substance abuse Tracheomalacia, acquired Transaminitis Surgical History History of amputation History of laminectomy History of transurethral resection of prostate Hx of BKA Family History Family History Father Chronic mental illness Hypertension Asthma Stroke Mother Asthma Diabetes Coronary artery disease Social History Social History Household Members: Unknown / Unable to assess Housing: House Housing Other:: IN A LITTLE ROOM Do you presently have visiting nurse or other home services: No Unable to assess alcohol history related to: Refusing to respond Alcohol intake: unknown Patient Tobacco Use Status: Never used Tobacco e-Cigarette/Vaping Use: Never Used Second Hand Smoke Exposure: No Substance Use Type: Opiates Advance Directives: Yes Advance Directives on File: Yes Advance Directives Date on File: 11/24/20 service: No Current occupational status: disabled Physical Exam Vital Signs: Vital Signs: Last Vital Signs Temp 96.0 F L 05/18/22 10:35 Pulse 64 05/18/22 10:35 Resp 16 05/18/22 10:35 BP 102/70 05/18/22 10:35 Pulse Ox 100 05/18/22 10:35 O2 Del Method 05/18/22 10:35 Oxygen Flow Rate 2 05/18/22 10:35 BMI result Body Mass Index 22.6 Appearance: Alert. Oriented X3. No acute distress. Eyes: Pallor ENT: Pharynx normal. Oral Mucosa moist Neck: Normal inspection. Neck supple. CVS: Normal heart rate and rhythm. Pulses normal. Respiratory: No respiratory distress. Equal air entry bilateral, prolonged expiration occasional rhonchi no crackles Abdomen: Soft and nontender. Bowel sounds are present, no mass palpable, no CVA tenderness Skin: Skin warm and dry. Normal skin color. Normal skin turgor. Extremities: 4+ left lower extremity edema. No calf tenderness Neuro: Oriented X 3. No motor deficit. No sensory deficit.No cerebellar signs , MDM - SOB/Dyspnea MDM Narrative Medical decision making narrative: 11:10 patient refused labs refused to stay in the hospital sign against medical advise aware of consequences Differential Diagnosis Differential diagnosis: Likely acute exacerbation of chronic obstructive airways disease, congestive heart failure and pneumonia Discharge Plan Discharge Clinical Impression: Acute exacerbation of chronic obstructive airways disease Patient Disposition: Left Against Medical Advice Prescriptions: No Action bumetanide 2 mg Tablet 2 mg PO BID Entresto 24-26 mg tablet 1 tab PO BID cefuroxime axetil 500 mg Tablet 500 mg PO Q12H Qty: 20 0RF carvedilol 6.25 mg tablet 1 tab PO BID atorvastatin 20 mg tablet 1 tab PO BEDTIME cetirizine 10 mg tablet 1 tab PO QAM clopidogrel 75 mg tablet 1 tab PO QAM aspirin 81 mg tablet,delayed release (DR/EC) 1 tab PO QAM spironolactone 25 mg tablet 0.5 tab PO QAM famotidine 20 mg tablet 1 tab PO BID tamsulosin 0.4 mg capsule 1 cap PO QPM lidocaine [Lidoderm] 5 % adhesive patch,medicated 1 patch topical DAILY fluticasone propion-salmeterol [Advair Diskus] 500-50 mcg/dose blister with device 1 puff PO BID montelukast 10 mg tablet 1 tab PO QPM gabapentin 100 mg capsule 2 cap PO TID albuterol sulfate [ProAir HFA] 90 mcg/actuation HFA aerosol inhaler 2 puff inhalation Q4-6H PRN (Reason: dyspnea) fluticasone propionate 50 mcg/actuation spray,suspension 1 - 2 spray intranasal DAILY PRN (Reason: Allergy Symptoms) zinc sulfate 50 mg zinc (220 mg) capsule 1 cap PO DAILY insulin aspart U-100 [Novolog Flexpen U-100 Insulin] 100 unit/mL (3 mL) Insulin Pen 5 unit SUBCUT TID methadone 10 mg/mL Concentrate 52 mg PO DAILY Stand Alone Forms: Against Medical Advice
--- NOTE | 2022-05-18 11:11 | PC.NURSE ---
pt refusing lab work requested paperwork to leave
[2022-05-18 11:23] LABS: COVID-19 Test Negative (Negative); IDNOW Serial# 16C4AD1C
== END 2022-05-18 11:27 | disposition left against medical advice (07) ==
PROVIDERS: Emergency Provider Internal Medicine; PCP Family Medicine
DX: J44.1 Chronic obstructive pulmonary disease with (acute) exacerbation (principal)
CPT/HCPCS: 71045; 87635; 99282; 99283

== ENCOUNTER 2022-05-27 11:26 | Inpatient (IN) | payer MEDICAID, SELFPAY ==
--- NOTE | ~2022-05-27 | US_ITS ---
EXAMINATION: US ABDOMEN LIMITED CLINICAL INFORMATION: Pain with jaundice. COMPARISON: CT abdomen and pelvis without contrast 04/17/2022 TECHNIQUE: Real-time imaging of the right upper quadrant abdominal viscera. FINDINGS: PANCREAS: The small 1 x 0.7 x 1.4 cm hypoechoic lesion adjacent to the pancreatic head likely a small peripancreatic lymph node. Visualized pancreas is otherwise grossly unremarkable. LIVER: Normal homogeneous echogenicity. Slightly lobulated/nodular liver surface contour. No liver lesions. GALLBLADDER: Sludge and multiple echogenic shadowing gallstones. Gallbladder wall thickening measuring up to 0.5 cm. Small amount of intramural edema. No pericholecystic fluid. The patient did not have a sonographic Moore sign at time the exam. COMMON BILE DUCT: Normal in caliber measuring 0.5 cm in diameter. RIGHT KIDNEY: Normal. No hydronephrosis. No renal calculi or focal parenchymal lesions. The kidney measures 11.4 cm in maximum dimension. FREE FLUID: Small amount of perihepatic free fluid. Right pleural effusion suspected. Abdominal Doppler: Portal veins: Hepatopedal flow demonstrated in the extrahepatic portal vein, main, right, and left portal veins. Main hepatic artery velocity 52 cm/s. Patent hepatic veins. Patent IVC with normal venous waveform. Patent splenic vein. Spleen is normal in size measuring 12 cm in length. US/US duplex arterial venous comp IMPRESSION: 1. Cholelithiasis and gallbladder sludge with color wall thickening and mild intramural edema compatible with cholecystitis. Correlate clinically with signs or symptoms of acute cholecystitis. 2. No biliary ductal dilation. 3. Normal homogeneous hepatic echogenicity was slightly lobulated/nodular liver surface contour, which may be due to underlying liver fibrosis. No liver lesion. 4. Patent portal vein with normal directional flow. Hepatic veins and splenic vein also patent. 5. Right pleural effusion and small amount of perihepatic ascites. 6. Small hypoechoic nodule adjacent to the pancreatic head, likely a small peripancreatic lymph node.
--- NOTE | ~2022-05-27 | US_ITS ---
EXAMINATION: US ABDOMEN LIMITED CLINICAL INFORMATION: Pain with jaundice. COMPARISON: CT abdomen and pelvis without contrast 04/17/2022 TECHNIQUE: Real-time imaging of the right upper quadrant abdominal viscera. FINDINGS: PANCREAS: The small 1 x 0.7 x 1.4 cm hypoechoic lesion adjacent to the pancreatic head likely a small peripancreatic lymph node. Visualized pancreas is otherwise grossly unremarkable. LIVER: Normal homogeneous echogenicity. Slightly lobulated/nodular liver surface contour. No liver lesions. GALLBLADDER: Sludge and multiple echogenic shadowing gallstones. Gallbladder wall thickening measuring up to 0.5 cm. Small amount of intramural edema. No pericholecystic fluid. The patient did not have a sonographic Moore sign at time the exam. COMMON BILE DUCT: Normal in caliber measuring 0.5 cm in diameter. RIGHT KIDNEY: Normal. No hydronephrosis. No renal calculi or focal parenchymal lesions. The kidney measures 11.4 cm in maximum dimension. FREE FLUID: Small amount of perihepatic free fluid. Right pleural effusion suspected. Abdominal Doppler: Portal veins: Hepatopedal flow demonstrated in the extrahepatic portal vein, main, right, and left portal veins. Main hepatic artery velocity 52 cm/s. Patent hepatic veins. Patent IVC with normal venous waveform. Patent splenic vein. Spleen is normal in size measuring 12 cm in length. US/US abdomen limited IMPRESSION: 1. Cholelithiasis and gallbladder sludge with color wall thickening and mild intramural edema compatible with cholecystitis. Correlate clinically with signs or symptoms of acute cholecystitis. 2. No biliary ductal dilation. 3. Normal homogeneous hepatic echogenicity was slightly lobulated/nodular liver surface contour, which may be due to underlying liver fibrosis. No liver lesion. 4. Patent portal vein with normal directional flow. Hepatic veins and splenic vein also patent. 5. Right pleural effusion and small amount of perihepatic ascites. 6. Small hypoechoic nodule adjacent to the pancreatic head, likely a small peripancreatic lymph node.
--- NOTE | ~2022-05-27 | XR_ITS ---
EXAMINATION: XR FOOT, LEFT CLINICAL INFORMATION: Great toe wound with maggots COMPARISON: Left foot radiographs 04/22/2022 TECHNIQUE: AP, lateral, and oblique views of the left foot. FINDINGS: Again seen and/or changes consistent with joint sepsis and periarticular osteomyelitis of the great toe IP joint. No significant further interval osseous destruction or erosive change. There is lucency compatible with wound in the overlying soft tissues. No tracking soft tissue gas. No acute fracture or dislocation. Extensive vascular calcifications and dorsal soft tissue swelling. XR/XR foot LT min 3V IMPRESSION: 1. Findings compatible with sequela of joint sepsis and periarticular osteomyelitis of the great toe IP joint. No further significant interval bone destruction or erosive change. 2. Overlying soft tissue wound. No tracking soft tissue gas.
--- NOTE | ~2022-05-27 | NM_ITS ---
Indication: Right upper quadrant pain EXAMINATION: HIDA scan. However 5 mCi technetium mebrofenin. Imaging over the upper abdomen. Uptake by the liver is delayed and there is persistent activity within the liver at 60 minutes. No convincing evidence for ductal or gallbladder or bowel activity by 60 minutes. Imaging 6820 minutes there is some accumulation of radiotracer laterally in the region of the liver this could possibly be the gallbladder but there is no convincing evidence for ductal or bowel activity. On the delayed 5 hour imaging there is filling within what appears to be patient's gallbladder. Correlation On the 5 hour film may be visualizing the proximal common duct. NM/NM hepatobiliary wo pharm IMPRESSION: This exam is abnormal. While there is filling of the gallbladder there is no definitive visualization of bowel activity by 5.5 hours. At 5.5 hours we may be visualizing the common duct in the region of the shar. There is also delayed uptake by the liver with retention of the agent persisting to 5.5 hours. Given these findings I cannot exclude and we must consider a common duct obstruction. Differential would include significant hepatic cellular dysfunction. Also also cardiac congestion would need to be considered as a cause of delayed liver uptake.
--- NOTE | ~2022-05-27 | CT_ITS ---
EXAMINATION: CT ABDOMEN AND PELVIS WITH CONTRAST CLINICAL INFORMATION: Elevated bilirubin. Jaundice. Question choledocholithiasis. COMPARISON: Previous abdominal ultrasound from earlier the same day and CT of the abdomen and pelvis most recent April 2022 TECHNIQUE: Multidetector volumetric images were obtained from the superior aspect of the liver through the pubic symphysis following administration 85 mL of Omnipaque 350 intravenous contrast. Sagittal and coronal reformatted images were obtained on the technologist's workstation. Oral contrast: Yes This CT examination was performed using dose optimization techniques as appropriate, variously including the following: *Automated exposure control *Adjustment of mA and/or kV according to patient size (this includes techniques or standardized protocols for targeted exams where dose is matched to indication/reason for exam; i.e. extremities or head) *Use of iterative reconstruction technique DLP: 616 mGy-cm FINDINGS: LUNG BASES: The heart is enlarged. There is a moderate right pleural effusion. There is airspace disease in the right lower lobe suggestive of pneumonia. LIVER, GALLBLADDER, AND BILIARY TREE: The liver is low in attenuation suggestive of fatty infiltration. Question mild cirrhotic changes of the liver. No focal liver lesion. Gallstones, gallbladder. Normal caliber intrahepatic extrahepatic bile ducts. No common bile duct stone appreciated by CT. PANCREAS: Unremarkable. SPLEEN: Unremarkable. ADRENAL GLANDS: Unremarkable. KIDNEYS AND URETERS: The kidneys are normal in size, shape, and attenuation. No hydronephrosis, hydroureter, or calculi seen. No perinephric stranding. BLADDER: Unremarkable. GASTROINTESTINAL TRACT: There is wall thickening of the right colon suggestive of colitis. Small and large bowel is otherwise unremarkable. The appendix is normal. This is small amount of fluid in the pelvis. ABDOMINAL WALL: No significant hernia is appreciated. LYMPH NODES: There are prominent periportal lymph nodes. VASCULAR: There is evidence of atherosclerotic disease. No aneurysm is seen. PELVIC VISCERA: Unremarkable. OSSEOUS STRUCTURES: Degenerative changes of the spine. CT/CT abdomen pelvis w con IMPRESSION: Right colon colitis. Small amount of ascites. Fatty liver and question mild cirrhotic changes. Stable periportal lymphadenopathy. Gallstones. No biliary duct dilatation or bile duct stone seen by CT. Moderate right pleural effusion and right lower lobe pneumonia. Fleischner guidelines were followed.
--- NOTE | ~2022-05-27 | US_ITS ---
EXAMINATION: US VENOUS ULTRASOUND WITH DOPPLER LOWER EXTREMITY, LEFT CLINICAL INFORMATION: Leg pain and swelling COMPARISON: None TECHNIQUE: Ultrasound of the deep veins is performed from the hip to the calf with compression sonography and color and pulse Doppler assessment. Spectral analysis with color-flow imaging is performed. FINDINGS: There is normal venous compression and respiratory variation and augmented flow. The visualized common femoral vein, superficial femoral vein, profunda femoral vein, popliteal vein, and the trifurcation region shows no evidence of deep venous thrombosis. There is no significant popliteal fossa cyst. Incidental note is made of a prominent left inguinal lymph node measuring 2.0 x 1.6 x 1.3 cm. If the patient's symptoms persist, followup ultrasound in 5 days 7 days might be of value to exclude proximal propagation from a non-visualized calf vein. US/US venous duplex LE IMPRESSION: No DVT demonstrated in the left lower extremity.
--- NOTE | ~2022-05-27 | XR_ITS ---
EXAMINATION: XR chest 1V CLINICAL INFORMATION: Shortness of breath COMPARISON: Prior chest x-ray 05/18/2022 TECHNIQUE: XR chest 1V Tubes and lines: None Lungs and pleura: There is pulmonary vascular congestion, there is opacification at right lung base probably pleural effusion, cannot rule out underlying infiltrate and/or atelectasis. Heart and mediastinum: Cardiac silhouette is enlarged exaggerated by AP technique.. Bones/soft tissue: Skeletal structures included are normal for patient's age. XR/XR chest 1V IMPRESSION: Congestive heart failure. Opacification over the right lung base probably pleural effusion, cannot rule out underlying infiltrate and/or atelectasis.
--- NOTE | ~2022-05-27 | XR_ITS ---
EXAMINATION: XR CHEST CLINICAL INFORMATION: Check line placement COMPARISON: Previous chest x-ray from earlier the same day TECHNIQUE: Frontal view of the chest was obtained. FINDINGS: There is a new right jugular line with tip projecting over the SVC. The cardiac silhouette is enlarged but stable. Hilar and mediastinal contours are unremarkable. There is a [id number] right pleural effusion. There may be airspace disease at the right lung base. Left lung is clear. There is no left pleural effusion. No pneumothorax. Visualized bony structures are unremarkable. XR/XR chest 1V IMPRESSION: Right jugular line projects tip projects over SVC. No pneumothorax. Stable enlargement of the cardiac silhouette. Right pleural effusion and question right base pneumonia.
--- NOTE | 2022-05-27 11:40 | ECG_ITS ---
Test Reason : DYSPNEA Blood Pressure : / mmHG Vent. Rate : 065 BPM Atrial Rate : 065 BPM P-R Int : 154 ms QRS Dur : 100 ms QT Int : 438 ms P-R-T Axes : -85 -31 149 degrees QTc Int : 455 ms Unusual P axis, possible ectopic atrial rhythm with occasional Premature ventricular complexes Left axis deviation Inferior infarct , possibly acute Possible Anterior infarct , new ACUTE MN / STEMI Consider right ventricular involvement in acute inferior infarct Abnormal ECG When compared with ECG of 17-APR-2022 18:53, Significant changes have occurred Referred By: Steffi Jordan Electronically Signed By:
[2022-05-27 12:01] VITALS: BP 117/62; BP 121/66; PULSE 60; PULSE 82; RESP 16; TEMP 36.5; O2SAT 94; O2SAT 99; BMI 22.4
--- NOTE | 2022-05-27 12:04 | ED_ITS ---
HPI - Extremity Problem General Chief complaint: Extremity Problem <YAKOV Smith - Last Filed: 05/27/22 18:12> Stated complaint: Live maggots in left foot. <YAKOV Smith - Last Filed: 05/27/22 18:12> Time Seen by Provider: 05/27/22 11:33 <YAKOV Smith - Last Filed: 05/27/22 18:12> Source: patient and RN notes reviewed <YAKOV Smith - Last Filed: 05/27/22 18:12> Mode of arrival: ambulatory <YAKOV Smith - Last Filed: 05/27/22 18:12> Limitations: no limitations <YAKOV Smith - Last Filed: 05/27/22 18:12> History of Present Illness HPI Narrative: This is a 51-year-old male, past medical history of chronic osteomyelitis of left great toe, poorly-controlled insulin-dependent DM 2,past medical history of anemia, congestive heart failure, asthma, bipolar, BPH, COPD, GERD, hyperlipidemia, ischemic cardiomyopathy (EF15-20%), peripheral artery disease, peripheral neuropathy,? right BKA, and opioid use disorder on methadone, who presents today with complaints of germs on my left big toe and left lower leg pain and swelling for 2 days. Denies any new trauma or injury to his toe. Patient is a very vague, and poor historian in regards to this matter. He reports that he smokes marijuana, denies any tobacco, alcohol or any other illicit drug use. He reports that yesterday he had an episode of nausea and 2 episodes of vomiting. He denies any abdominal pain or diarrhea. Admits to some constipation, last bowel movement was yesterday, denies any bloody and black stool. Denies any fevers or chills. He admits to having shortness of breath upon arrival in the emergency department, he is requesting his albuterol inhaler. Denies any chest pain or palpitations. Per his patient's medical record patient has been seen by Dr. Vaughn for a a nonhealing left great toe, who also performed a left anterior tibial artery and left popliteal artery angioplasty on 04/27/2022. He was last seen on 05/02/2022 and no reports that the left toes seem to be progressing well. He was getting local wound care at that time and had follow-up in 2 weeks. <YAKOV Smith - Last Filed: 05/27/22 18:12> MD Complaint: extremity pain <YAKOV Smith - Last Filed: 05/27/22 18:12> Onset (ago): day(s) <YAKOV Smith - Last Filed: 05/27/22 18:12> Pain Consistency: constant <YAKOV Smith - Last Filed: 05/27/22 18:12> Location: left (Great toe) <YAKOV Smith - Last Filed: 05/27/22 18:12> Severity scale (1-10): 8 <YAKOV Smith - Last Filed: 05/27/22 18:12> Quality: aching <YAKOV Smith - Last Filed: 05/27/22 18:12> Radiation: none <YAKOV Smith - Last Filed: 05/27/22 18:12> Relieving factors: nothing <YAKOV Smith - Last Filed: 05/27/22 18:12> Exacerbating factors: nothing <YAKOV Smith - Last Filed: 05/27/22 18:12> Associated symptoms: shortness of breath <YAKOV Smith - Last Filed: 05/27/22 18:12> Context: immobilization, recent surgery/procedure and history of peripheral vascular disease <YAKOV Smith - Last Filed: 05/27/22 18:12> Related Data Home medications: Home Medications Medication Instructions Recorded Confirmed albuterol sulfate 90 mcg/actuation 2 puff inhalation Q4-6H PRN dyspnea 03/08/22 05/27/22 aerosol inhaler (ProAir HFA) aspirin 81 mg tablet,delayed 1 tab PO QAM 03/08/22 05/27/22 release atorvastatin 20 mg tablet 1 tab PO BEDTIME 03/08/22 05/27/22 carvedilol 6.25 mg tablet 1 tab PO BID 03/08/22 05/27/22 cetirizine 10 mg tablet 1 tab PO QAM 03/08/22 05/27/22 clopidogrel 75 mg tablet 1 tab PO QAM 03/08/22 05/27/22 famotidine 20 mg tablet 1 tab PO BID 03/08/22 05/27/22 fluticasone 500 mcg-salmeterol 50 1 puff PO BID 03/08/22 05/27/22 mcg/dose blistr powdr for inhalation (Advair Diskus) fluticasone propionate 50 1 - 2 spray intranasal DAILY PRN 03/08/22 05/27/22 mcg/actuation nasal Allergy Symptoms spray,suspension gabapentin 100 mg capsule 2 cap PO TID 03/08/22 05/27/22 insulin aspart U-100 100 unit/mL 5 unit subcut TID 03/08/22 05/27/22 (3 mL) subcutaneous pen (Novolog Flexpen U-100 Insulin aspart) lidocaine 5 % topical patch 1 patch topical DAILY 03/08/22 05/27/22 (Lidoderm) methadone 10 mg/mL oral concentrate 52 mg PO DAILY 03/08/22 05/27/22 montelukast 10 mg tablet 1 tab PO QPM 03/08/22 05/27/22 spironolactone 25 mg tablet 0.5 tab PO QAM 03/08/22 05/27/22 tamsulosin 0.4 mg capsule 1 cap PO QPM 03/08/22 05/27/22 zinc sulfate 50 mg zinc (220 mg) 1 cap PO DAILY 03/08/22 05/27/22 capsule bumetanide 2 mg tablet 2 mg PO BID 03/30/22 05/27/22 sacubitril 24 mg-valsartan 26 mg 1 tab PO BID 03/30/22 05/27/22 tablet (Entresto) <YAKOV Smith - Last Filed: 05/27/22 18:12> Allergies/Adverse reactions: Allergies Allergy/AdvReac Type Severity Reaction Status Date / Time ertapenem Allergy Intermediate Hives Verified 02/21/22 18:40 vancomycin [VANCOMYCIN] Allergy Intermediate HIVES Verified 02/21/22 18:40 Chocolate Allergy Unknown Rash Verified 02/21/22 18:40 ciprofloxacin [From CIPRO] Allergy Unknown SWELLING Verified 02/21/22 18:40 hydrocortisone [Cipro HC] Allergy Unknown Unknown Verified 02/21/22 18:40 sulfamethoxazole Allergy Unknown rash Verified 02/21/22 18:40 [From BACTRIM] trimethoprim [From BACTRIM] Allergy Unknown rash Verified 02/21/22 18:40 turkey [TURKEY] Allergy Unknown RASH Verified 02/21/22 18:40 <YAKOV Smith - Last Filed: 05/27/22 18:12> Review of Systems Review of Systems: Constitutional: No Fever, No Chills ENT/Mouth: No sore throat, No Rhinorrhea, No Swallowing Difficulty Eyes: No Eye Pain, No Swelling, No Redness Cardiovascular: No Chest Pain, No SOB, No Orthopnea, No Edema Respiratory: No Cough, No Sputum, No Wheezing, No dyspnea Gastrointestinal: +Nausea, +Vomiting, No Diarrhea, No abdominal Pain, No Hematochezia, No Melena Genitourinary: No Dysuria, No Urinary Frequency, No Hematuria Musculoskeletal: +left great toe pain, left lower leg pain, No joint pain, No Myalgias Skin: No Skin Lesions, No rash Neuro: No Weakness, No Numbness, No Dizziness, No Headache Psych: No Anxiety/Panic, No Depression Heme/Lymph: No Bruising, No Lymphadenopathy Endocrine: No Polyuria, No Polydipsia <YAKOV Smith - Last Filed: 05/27/22 18:12> [facility] Past Medical History Medical History: Medical History Abscess or cellulitis of foot Acute on chronic anemia Acute on chronic combined systolic and diastolic congestive heart failure Acute on chronic HFrEF (heart failure with reduced ejection fraction) Acute respiratory failure with hypoxia Asthma Bipolar 1 disorder BPH (benign prostatic hyperplasia) CHF (congestive heart failure) CHF (congestive heart failure) CHF exacerbation Cholelithiasis Closed wedge compression fracture of T9 vertebra COPD (chronic obstructive pulmonary disease) Diabetes mellitus Diabetes mellitus, type 2 Elevated troponin GERD (gastroesophageal reflux disease) Hyperlipidemia Ischemic cardiomyopathy Lymphadenopathy Opiate abuse, continuous Osteomyelitis Osteomyelitis of great toe Peripheral arterial disease Peripheral neuropathy Peripheral vascular disease Substance abuse Tracheomalacia, acquired Transaminitis <YAKOV Smith - Last Filed: 05/27/22 18:12> Surgical History: Surgical History History of amputation History of laminectomy History of transurethral resection of prostate Hx of BKA <YAKOV Smith - Last Filed: 05/27/22 18:12> Family History Family History: Family History Father Chronic mental illness Hypertension Asthma Stroke Mother Asthma Diabetes Coronary artery disease <YAKOV Smith - Last Filed: 05/27/22 18:12> Social History Social History: Social History Household Members: Unknown / Unable to assess Housing: House Housing Other:: IN A LITTLE ROOM Do you presently have visiting nurse or other home services: No Unable to assess alcohol history related to: Refusing to respond Alcohol intake: unknown Patient Tobacco Use Status: Never used Tobacco e-Cigarette/Vaping Use: Never Used Second Hand Smoke Exposure: No Substance Use Type: Opiates Advance Directives: Yes Advance Directives on File: Yes Advance Directives Date on File: 11/24/20 service: No Current occupational status: disabled <YAKOV Smith - Last Filed: 05/27/22 18:12> Physical Exam Vital Signs: Vital Signs: Last Vital Signs Temp 98.2 F 05/27/22 18:29 Pulse 70 05/27/22 18:29 Resp 15 05/27/22 18:29 BP 121/66 05/27/22 12:01 Pulse Ox 99 05/27/22 18:29 O2 Del Method 05/27/22 12:01 BMI result Body Mass Index 22.4 Appearance: Alert. Oriented X3. No acute distress. Poor hygeine. Eyes: Pupils equal, round and reactive to light. Mild sclera icterus. ENT: Very poor dental hygiene, missing teeth with dental decay throughout the oral cavity. Pharynx normal. Neck: Normal inspection. Neck supple. CVS: S1S2 regular, Normal heart rate and rhythm. Pulses normal. Respiratory: Lungs clear to auscultation bilaterally, no wheezes, rhonchi or rales. No respiratory distress. Breath sounds normal. Abdomen: Soft and nontender. +BS x4, normoactive bowel sounds. Skin: Mild facial jaundice. Left great toe at the proximal phalange, dorsal aspect, there is a 3cm open wound with approximately 15 maggots within the wound. Dried blood noted on the plantar aspect of the left foot. Mild erythema and edema extending see the mid dorsal aspect of the left foot. Unable to palpat e left pedal pulse. Extremities: BTK amputation, healed surgical incision at the amputation site. Scattered areas of eschars noted throughout the body. Neuro: Oriented X 3. No motor deficit. No sensory deficit. <YAKOV Smith - Last Filed: 05/27/22 18:12> Vital Signs: Last Vital Signs Temp 98.2 F 05/27/22 18:29 Pulse 70 05/27/22 18:29 Resp 15 05/27/22 18:29 BP 121/66 05/27/22 12:01 Pulse Ox 99 05/27/22 18:29 O2 Del Method 05/27/22 12:01 BMI result Body Mass Index 22.4 <YAKOV Kim - Last Filed: 05/27/22 20:44> Course Course Course Narrative: This is a 51-year-old male, with a past medical history of chronic osteomyelitis of left great toe, poorly-controlled insulin-dependent DM 2,past medical history of anemia, congestive heart failure, asthma, bipolar, BPH, COPD, GERD, hyperlipidemia, ischemic cardiomyopathy, peripheral artery disease, peripheral neuropathy,? right BKA, who presents today with complaints of left great toe wound infection with maggots and left leg pain and swelling x 2 days. Patient is a very vague historian, difficult to obtain history. Patient was seen originally on 04/22/2022 the left great toe wound, and x-ray findings were consistent with osteomyelitis of the left great toe, was started on IV Zosyn and doxycycline and was admitted. Wound cultures at that time grew out E coli and Klebsiella oxytoca, blood cultures were negative. He was seen by infectious disease and vascular surgery and was deemed to have chronic osteomyelitis. He was treated with cefuroxime to complete within 14 days. He had underwent a left anterior tibial and left popliteal artery angioplasty by Dr. Crisostomo on 04/27/2022. He was advised to be transferred to [facility] for short-term rehab but the patient refused. Plan: Labs, blood cultures, EKG, x-ray of the left fell, ultrasound of the left lower extremity ordered. Patient will be prophylactically treated with Doxycycline 100mg IV, Zosyn (multiple abx allergies) <YAKOV Smith - Last Filed: 05/27/22 18:12> Reevaluation(s) Reevaluation #1: Labs returning with a blood cell count 13.9. Lactic acid 3.5. Will need to be cautious with IV fluids given his history of heart failure. His ejection fraction is 15%. He has grade 3 diastolic dysfunction as well. He remains on room air and remains hemodynamically stable at this time. Will give 1 L of IV fluids for now. EKG with new ST depression in lead 1. Troponin added to medical workup. Denies chest pain at this time X-ray is showing findings compatible with sequela of joint sepsis and periarticular osteomyelitis of the great toe IP joint. Appropriate antibiotics have been ordered. He will require admission for intervention. Rest of his lab workup and imaging studies are spending. <YAKOV Smith - Last Filed: 05/27/22 18:12> Reevaluation #2: Patient's troponin returned at 2845. His BNP is 3400. He remains hemodynamically stable and saturating 99% on room air. His liver function tests are abnormal with a bilirubin of 11.6, direct bilirubin of 8.0. His AST/ALT are mildly elevated 125/142 respectively. Normal alk-phos. Does not appear to be obstructive pathology. Upon review of his previous abdominal imaging about 1 month ago, he had biliary sludge and stones in the gallbladder without any evidence of acute cholecystitis. His liver looks nodular at that time. Will get right upper quadrant ultrasound with Doppler to rule out portal vein thrombosis. Spoke with marking machine tender via tiger text about patient's EKG findings and significantly in elevated troponin and BMP. Plan will be to repeat his troponin 3 hours to see the trend. Hold off on heparinization for now, if this is a type II NC anticoagulation has limited value. He continues remained chest pain- free. <YAKOV Smith - Last Filed: 05/27/22 18:12> Reevaluation #3: Repeat troponin and lactic acid are still pending at this time. Plan is for admission to the hospital for further management of his multiple, complex medical issues. <YAKOV Smith - Last Filed: 05/27/22 18:12> Additional Reevaluation(s): I did evaluate this patient who tells me that he just has not been feeling well, he is having abdominal pain and he also reports episodes of nausea and vomiting yesterday, some nausea today however no vomiting. He tells me does not think he has had a fever. Patient poor historian. Upon my examination patient is very tender to the right upper quadrant, jaundice noted at this time based off patient's laboratory studies and ultrasound there is concern for choledocholithiasis. Will reach out to surgery for recommendation however I feel as though patient has a lot of medical issues therefore he should be a dmitted to the medical team and be followed by surgery as well. Will reach out to Dr. Hurt surgeon oncall 194 Discussed this case with surgery who recommends trending laboratory values, hydrating if possible however will be difficult due to patient's ejection fraction and BNP. I also discussed this with the hospitalist team will be admitting patient I will reach out to GI to discuss this case as well. [address] Mendez thinks this is likely hepatic congestion, he thinks this is likely all secondary to congestive heart failure and he feels as though this may improve after diuresis. Also recommends a HIDA scan. Gi will follow. <YAKOV Kim - Last Filed: 05/27/22 20:44> Consultations Consultation #1: Cardiology - Dr. Francisco <YAKOV Smith - Last Filed: 05/27/22 18:12> MDM - Extremity (Nontraumatic) Lab Data Result diagrams: : 05/27/22 13:58 05/27/22 13:58 <YAKOV Smith - Last Filed: 05/27/22 18:12> Labs: Lab Results 05/27/22 05/27/22 05/27/22 Range/Units 12:47 12:47 13:58 WBC 13.9 H (4.8-10.8) X10*3/uL RBC 4.58 L (4.60-5.80) X10*6/uL Hgb 12.9 L (14.0-18.0) g/dl Hct 39.5 L (42.0-52.0) % MCV 86.2 (80.0-98.0) fL MCH 28.2 (27.0-33.0) pg MCHC 32.7 (31.0-36.0) g/dl RDW 20.0 H (11.0-16.0) % Plt Count 194 D (160-400) X10*3/uL MPV 10.0 (9.4-12.4) fL Immature Gran % (Auto) 0.4 (0.0-0.4) % Neut % (Auto) 83.2 H (45-73) % Lymph % (Auto) 8.1 L (20-40) % Stone % (Auto) 8.0 (2-11) % Eos % (Auto) 0.2 (0-4) % Baso % (Auto) 0.1 (0-2) % Lymph # (Auto) 1.1 L (1.2-4.9) X10*3/uL Stone # (Auto) 1.1 (0.1-1.2) X10*3/uL Eos # (Auto) 0.0 (0.0-0.4) X10*3/uL Baso # (Auto) 0.0 (0.0-0.2) X10*3/uL Abs Immat Gran (auto) 0.06 H (0.00-0.03) X10*3/uL Absolute Neuts (auto) 11.5 H (2.0-8.3) x10*3/uL Absolute Nucleated RBC 0.000 (0.0-0.012) X10*3/uL Nucleated RBC % (auto) 0.0 (0.0-0.2) /100WBC ESR (0-15) MM/HR PT 23.6 H (10.0-13.1) SEC INR 2.0 H (0.9-1.1) APTT 26.5 D (24.1-38.0) SEC Sodium (135-145) mmol/L Potassium (3.3-5.1) mmol/L Chloride (96-108) mmol/L Carbon Dioxide (22-29) mmol/L Anion Gap (12-20) BUN (9-16) mg/dL Creatinine (0.5-1.4) mg/dL Estim Creat Clear Calc Estimated GFR Random Glucose (60-115) mg/dL Lactic Acid (0.5-2.0) mmol/L Calcium (8.4-10.2) mg/dL Magnesium (1.6-2.6) mg/dL Total Bilirubin (0.0-1.0) mg/dL Direct Bilirubin (0.0-0.5) mg/dL AST (5-37) U/L ALT (0-40) U/L Alkaline Phosphatase (39-117) U/L Troponin I High Sens (<3.5-35.0) ng/L C-Reactive Protein (< or = 0.50) mg/dL B-Natriuretic Peptide (<100) pg/mL Total Protein (6.5-8.0) g/dL Albumin (3.5-5.0) g/dL Urine Color Urine Appearance Urine pH (5.0-8.0) Ur Specific [place] (1.005-1.025) Urine Protein (NEG-TRACE) MG/DL Urine Glucose (UA) (NEG) MG/DL Urine Ketones (NEG) MG/DL Urine Blood (NEG) Urine Nitrite (NEG) Ur Leukocyte Esterase (NEG) Urine RBC (0) /HPF Urine WBC (0-4) /HPF Ur Squamous Epith Cells /LPF Urine Bacteria /LPF Acetaminophen (<30) mcg/mL Ethyl Alcohol mg/dL COVID-19 (JAMILA) Negative (Negative) COVID-19 Clin Com See Note 05/27/22 05/27/22 05/27/22 Range/Units 13:58 13:58 13:58 WBC (4.8-10.8) X10*3/uL RBC (4.60-5.80) X10*6/uL Hgb (14.0-18.0) g/dl Hct (42.0-52.0) % MCV (80.0-98.0) fL MCH (27.0-33.0) pg MCHC (31.0-36.0) g/dl RDW (11.0-16.0) % Plt Count (160-400) X10*3/uL MPV (9.4-12.4) fL Immature Gran % (Auto) (0.0-0.4) % Neut % (Auto) (45-73) % Lymph % (Auto) (20-40) % Stone % (Auto) (2-11) % Eos % (Auto) (0-4) % Baso % (Auto) (0-2) % Lymph # (Auto) (1.2-4.9) X10*3/uL Stone # (Auto) (0.1-1.2) X10*3/uL Eos # (Auto) (0.0-0.4) X10*3/uL Baso # (Auto) (0.0-0.2) X10*3/uL Abs Immat Gran (auto) (0.00-0.03) X10*3/uL Absolute Neuts (auto) (2.0-8.3) x10*3/uL Absolute Nucleated RBC (0.0-0.012) X10*3/uL Nucleated RBC % (auto) (0.0-0.2) /100WBC ESR 10 (0-15) MM/HR PT (10.0-13.1) SEC INR (0.9-1.1) APTT (24.1-38.0) SEC Sodium 125 L (135-145) mmol/L Potassium 4.3 (3.3-5.1) mmol/L Chloride 91 L (96-108) mmol/L Carbon Dioxide 22 (22-29) mmol/L Anion Gap 16 (12-20) BUN 32 H (9-16) mg/dL Creatinine 1.25 (0.5-1.4) mg/dL Estim Creat Clear Calc 60.9 Estimated GFR > 60 Random Glucose 222 H D (60-115) mg/dL Lactic Acid 3.5 H* (0.5-2.0) mmol/L Calcium 8.8 (8.4-10.2) mg/dL Magnesium 1.6 (1.6-2.6) mg/dL Total Bilirubin 11.6 H (0.0-1.0) mg/dL Direct Bilirubin 8.0 H (0.0-0.5) mg/dL AST 125 H (5-37) U/L ALT 242 H (0-40) U/L Alkaline Phosphatase 117 D (39-117) U/L Troponin I High Sens (<3.5-35.0) ng/L C-Reactive Protein (< or = 0.50) mg/dL B-Natriuretic Peptide (<100) pg/mL Total Protein 7.6 (6.5-8.0) g/dL Albumin 3.5 (3.5-5.0) g/dL Urine Color Urine Appearance Urine pH (5.0-8.0) Ur Specific [place] (1.005-1.025) Urine Protein (NEG-TRACE) MG/DL Urine Glucose (UA) (NEG) MG/DL Urine Ketones (NEG) MG/DL Urine Blood (NEG) Urine Nitrite (NEG) Ur Leukocyte Esterase (NEG) Urine RBC (0) /HPF Urine WBC (0-4) /HPF Ur Squamous Epith Cells /LPF Urine Bacteria /LPF Acetaminophen (<30) mcg/mL Ethyl Alcohol mg/dL COVID-19 (JAMILA) (Negative) COVID-19 Clin Com 05/27/22 05/27/22 05/27/22 Range/Units 13:58 13:58 13:58 WBC (4.8-10.8) X10*3/uL RBC (4.60-5.80) X10*6/uL Hgb (14.0-18.0) g/dl Hct (42.0-52.0) % MCV (80.0-98.0) fL MCH (27.0-33.0) pg MCHC (31.0-36.0) g/dl RDW (11.0-16.0) % Plt Count (160-400) X10*3/uL MPV (9.4-12.4) fL Immature Gran % (Auto) (0.0-0.4) % Neut % (Auto) (45-73) % Lymph % (Auto) (20-40) % Stone % (Auto) (2-11) % Eos % (Auto) (0-4) % Baso % (Auto) (0-2) % Lymph # (Auto) (1.2-4.9) X10*3/uL Stone # (Auto) (0.1-1.2) X10*3/uL Eos # (Auto) (0.0-0.4) X10*3/uL Baso # (Auto) (0.0-0.2) X10*3/uL Abs Immat Gran (auto) (0.00-0.03) X10*3/uL Absolute Neuts (auto) (2.0-8.3) x10*3/uL Absolute Nucleated RBC (0.0-0.012) X10*3/uL Nucleated RBC % (auto) (0.0-0.2) /100WBC ESR (0-15) MM/HR PT (10.0-13.1) SEC INR (0.9-1.1) APTT (24.1-38.0) SEC Sodium (135-145) mmol/L Potassium (3.3-5.1) mmol/L Chloride (96-108) mmol/L Carbon Dioxide (22-29) mmol/L Anion Gap (12-20) BUN (9-16) mg/dL Creatinine (0.5-1.4) mg/dL Estim Creat Clear Calc Estimated GFR Random Glucose (60-115) mg/dL Lactic Acid (0.5-2.0) mmol/L Calcium (8.4-10.2) mg/dL Magnesium (1.6-2.6) mg/dL Total Bilirubin (0.0-1.0) mg/dL Direct Bilirubin (0.0-0.5) mg/dL AST (5-37) U/L ALT (0-40) U/L Alkaline Phosphatase (39-117) U/L Troponin I High Sens 2845.1 H* D (<3.5-35.0) ng/L C-Reactive Protein 6.26 H (< or = 0.50) mg/dL B-Natriuretic Peptide 3486 H (<100) pg/mL Total Protein (6.5-8.0) g/dL Albumin (3.5-5.0) g/dL Urine Color Urine Appearance Urine pH (5.0-8.0) Ur Specific [place] (1.005-1.025) Urine Protein (NEG-TRACE) MG/DL Urine Glucose (UA) (NEG) MG/DL Urine Ketones (NEG) MG/DL Urine Blood (NEG) Urine Nitrite (NEG) Ur Leukocyte Esterase (NEG) Urine RBC (0) /HPF Urine WBC (0-4) /HPF Ur Squamous Epith Cells /LPF Urine Bacteria /LPF Acetaminophen (<30) mcg/mL Ethyl Alcohol mg/dL COVID-19 (JAMILA) (Negative) COVID-19 Clin Com 05/27/22 05/27/22 Range/Units 13:58 14:09 WBC (4.8-10.8) X10*3/uL RBC (4.60-5.80) X10*6/uL Hgb (14.0-18.0) g/dl Hct (42.0-52.0) % MCV (80.0-98.0) fL MCH (27.0-33.0) pg MCHC (31.0-36.0) g/dl RDW (11.0-16.0) % Plt Count (160-400) X10*3/uL MPV (9.4-12.4) fL Immature Gran % (Auto) (0.0-0.4) % Neut % (Auto) (45-73) % Lymph % (Auto) (20-40) % Stone % (Auto) (2-11) % Eos % (Auto) (0-4) % Baso % (Auto) (0-2) % Lymph # (Auto) (1.2-4.9) X10*3/uL Stone # (Auto) (0.1-1.2) X10*3/uL Eos # (Auto) (0.0-0.4) X10*3/uL Baso # (Auto) (0.0-0.2) X10*3/uL Abs Immat Gran (auto) (0.00-0.03) X10*3/uL Absolute Neuts (auto) (2.0-8.3) x10*3/uL Absolute Nucleated RBC (0.0-0.012) X10*3/uL Nucleated RBC % (auto) (0.0-0.2) /100WBC ESR (0-15) MM/HR PT (10.0-13.1) SEC INR (0.9-1.1) APTT (24.1-38.0) SEC Sodium (135-145) mmol/L Potassium (3.3-5.1) mmol/L Chloride (96-108) mmol/L Carbon Dioxide (22-29) mmol/L Anion Gap (12-20) BUN (9-16) mg/dL Creatinine (0.5-1.4) mg/dL Estim Creat Clear Calc Estimated GFR Random Glucose (60-115) mg/dL Lactic Acid (0.5-2.0) mmol/L Calcium (8.4-10.2) mg/dL Magnesium (1.6-2.6) mg/dL Total Bilirubin (0.0-1.0) mg/dL Direct Bilirubin (0.0-0.5) mg/dL AST (5-37) U/L ALT (0-40) U/L Alkaline Phosphatase (39-117) U/L Troponin I High Sens (<3.5-35.0) ng/L C-Reactive Protein (< or = 0.50) mg/dL B-Natriuretic Peptide (<100) pg/mL Total Protein (6.5-8.0) g/dL Albumin (3.5-5.0) g/dL Urine Color DK YELLOW Urine Appearance CLEAR Urine pH 6.0 (5.0-8.0) Ur Specific [place] 1.020 (1.005-1.025) Urine Protein 1+ H (NEG-TRACE) MG/DL Urine Glucose (UA) 100 H (NEG) MG/DL Urine Ketones NEG (NEG) MG/DL Urine Blood TRACE (NEG) Urine Nitrite NEG (NEG) Ur Leukocyte Esterase NEG (NEG) Urine RBC 0-2 (0) /HPF Urine WBC 0-2 (0-4) /HPF Ur Squamous Epith Cells 1+ /LPF Urine Bacteria TRACE /LPF Acetaminophen < 1 (<30) mcg/mL Ethyl Alcohol < 10 mg/dL COVID-19 (JAMILA) (Negative) COVID-19 Clin Com <YAKOV Smith - Last Filed: 05/27/22 18:12> Lab Results 05/27/22 05/27/22 05/27/22 Range/Units 12:47 12:47 13:58 WBC 13.9 H (4.8-10.8) X10*3/uL RBC 4.58 L (4.60-5.80) X10*6/uL Hgb 12.9 L (14.0-18.0) g/dl Hct 39.5 L (42.0-52.0) % MCV 86.2 (80.0-98.0) fL MCH 28.2 (27.0-33.0) pg MCHC 32.7 (31.0-36.0) g/dl RDW 20.0 H (11.0-16.0) % Plt Count 194 D (160-400) X10*3/uL MPV 10.0 (9.4-12.4) fL Immature Gran % (Auto) 0.4 (0.0-0.4) % Neut % (Auto) 83.2 H (45-73) % Lymph % (Auto) 8.1 L (20-40) % Stone % (Auto) 8.0 (2-11) % Eos % (Auto) 0.2 (0-4) % Baso % (Auto) 0.1 (0-2) % Lymph # (Auto) 1.1 L (1.2-4.9) X10*3/uL Stone # (Auto) 1.1 (0.1-1.2) X10*3/uL Eos # (Auto) 0.0 (0.0-0.4) X10*3/uL Baso # (Auto) 0.0 (0.0-0.2) X10*3/uL Abs Immat Gran (auto) 0.06 H (0.00-0.03) X10*3/uL Absolute Neuts (auto) 11.5 H (2.0-8.3) x10*3/uL Absolute Nucleated RBC 0.000 (0.0-0.012) X10*3/uL Nucleated RBC % (auto) 0.0 (0.0-0.2) /100WBC ESR (0-15) MM/HR PT 23.6 H (10.0-13.1) SEC INR 2.0 H (0.9-1.1) APTT 26.5 D (24.1-38.0) SEC Sodium (135-145) mmol/L Potassium (3.3-5.1) mmol/L Chloride (96-108) mmol/L Carbon Dioxide (22-29) mmol/L Anion Gap (12-20) BUN (9-16) mg/dL Creatinine (0.5-1.4) mg/dL Estim Creat Clear Calc Estimated GFR Random Glucose (60-115) mg/dL Lactic Acid (0.5-2.0) mmol/L Calcium (8.4-10.2) mg/dL Magnesium (1.6-2.6) mg/dL Total Bilirubin (0.0-1.0) mg/dL Direct Bilirubin (0.0-0.5) mg/dL AST (5-37) U/L ALT (0-40) U/L Alkaline Phosphatase (39-117) U/L Troponin I High Sens (<3.5-35.0) ng/L C-Reactive Protein (< or = 0.50) mg/dL B-Natriuretic Peptide (<100) pg/mL Total Protein (6.5-8.0) g/dL Albumin (3.5-5.0) g/dL Urine Color Urine Appearance Urine pH (5.0-8.0) Ur Specific [place] (1.005-1.025) Urine Protein (NEG-TRACE) MG/DL Urine Glucose (UA) (NEG) MG/DL Urine Ketones (NEG) MG/DL Urine Blood (NEG) Urine Nitrite (NEG) Ur Leukocyte Esterase (NEG) Urine RBC (0) /HPF Urine WBC (0-4) /HPF Ur Squamous Epith Cells /LPF Urine Bacteria /LPF Acetaminophen (<30) mcg/mL Ethyl Alcohol mg/dL COVID-19 (JAMILA) Negative (Negative) COVID-19 Clin Com See Note 05/27/22 05/27/22 05/27/22 Range/Units 13:58 13:58 13:58 WBC (4.8-10.8) X10*3/uL RBC (4.60-5.80) X10*6/uL Hgb (14.0-18.0) g/dl Hct (42.0-52.0) % MCV (80.0-98.0) fL MCH (27.0-33.0) pg MCHC (31.0-36.0) g/dl RDW (11.0-16.0) % Plt Count (160-400) X10*3/uL MPV (9.4-12.4) fL Immature Gran % (Auto) (0.0-0.4) % Neut % (Auto) (45-73) % Lymph % (Auto) (20-40) % Stone % (Auto) (2-11) % Eos % (Auto) (0-4) % Baso % (Auto) (0-2) % Lymph # (Auto) (1.2-4.9) X10*3/uL Stone # (Auto) (0.1-1.2) X10*3/uL Eos # (Auto) (0.0-0.4) X10*3/uL Baso # (Auto) (0.0-0.2) X10*3/uL Abs Immat Gran (auto) (0.00-0.03) X10*3/uL Absolute Neuts (auto) (2.0-8.3) x10*3/uL Absolute Nucleated RBC (0.0-0.012) X10*3/uL Nucleated RBC % (auto) (0.0-0.2) /100WBC ESR 10 (0-15) MM/HR PT (10.0-13.1) SEC INR (0.9-1.1) APTT (24.1-38.0) SEC Sodium 125 L (135-145) mmol/L Potassium 4.3 (3.3-5.1) mmol/L Chloride 91 L (96-108) mmol/L Carbon Dioxide 22 (22-29) mmol/L Anion Gap 16 (12-20) BUN 32 H (9-16) mg/dL Creatinine 1.25 (0.5-1.4) mg/dL Estim Creat Clear Calc 60.9 Estimated GFR > 60 Random Glucose 222 H D (60-115) mg/dL Lactic Acid 3.5 H* (0.5-2.0) mmol/L Calcium 8.8 (8.4-10.2) mg/dL Magnesium 1.6 (1.6-2.6) mg/dL Total Bilirubin 11.6 H (0.0-1.0) mg/dL Direct Bilirubin 8.0 H (0.0-0.5) mg/dL AST 125 H (5-37) U/L ALT 242 H (0-40) U/L Alkaline Phosphatase 117 D (39-117) U/L Troponin I High Sens (<3.5-35.0) ng/L C-Reactive Protein (< or = 0.50) mg/dL B-Natriuretic Peptide (<100) pg/mL Total Protein 7.6 (6.5-8.0) g/dL Albumin 3.5 (3.5-5.0) g/dL Urine Color Urine Appearance Urine pH (5.0-8.0) Ur Specific [place] (1.005-1.025) Urine Protein (NEG-TRACE) MG/DL Urine Glucose (UA) (NEG) MG/DL Urine Ketones (NEG) MG/DL Urine Blood (NEG) Urine Nitrite (NEG) Ur Leukocyte Esterase (NEG) Urine RBC (0) /HPF Urine WBC (0-4) /HPF Ur Squamous Epith Cells /LPF Urine Bacteria /LPF Acetaminophen (<30) mcg/mL Ethyl Alcohol mg/dL COVID-19 (JAMILA) (Negative) COVID-19 Clin Com 05/27/22 05/27/22 05/27/22 Range/Units 13:58 13:58 13:58 WBC (4.8-10.8) X10*3/uL RBC (4.60-5.80) X10*6/uL Hgb (14.0-18.0) g/dl Hct (42.0-52.0) % MCV (80.0-98.0) fL MCH (27.0-33.0) pg MCHC (31.0-36.0) g/dl RDW (11.0-16.0) % Plt Count (160-400) X10*3/uL MPV (9.4-12.4) fL Immature Gran % (Auto) (0.0-0.4) % Neut % (Auto) (45-73) % Lymph % (Auto) (20-40) % Stone % (Auto) (2-11) % Eos % (Auto) (0-4) % Baso % (Auto) (0-2) % Lymph # (Auto) (1.2-4.9) X10*3/uL Stone # (Auto) (0.1-1.2) X10*3/uL Eos # (Auto) (0.0-0.4) X10*3/uL Baso # (Auto) (0.0-0.2) X10*3/uL Abs Immat Gran (auto) (0.00-0.03) X10*3/uL Absolute Neuts (auto) (2.0-8.3) x10*3/uL Absolute Nucleated RBC (0.0-0.012) X10*3/uL Nucleated RBC % (auto) (0.0-0.2) /100WBC ESR (0-15) MM/HR PT (10.0-13.1) SEC INR (0.9-1.1) APTT (24.1-38.0) SEC Sodium (135-145) mmol/L Potassium (3.3-5.1) mmol/L Chloride (96-108) mmol/L Carbon Dioxide (22-29) mmol/L Anion Gap (12-20) BUN (9-16) mg/dL Creatinine (0.5-1.4) mg/dL Estim Creat Clear Calc Estimated GFR Random Glucose (60-115) mg/dL Lactic Acid (0.5-2.0) mmol/L Calcium (8.4-10.2) mg/dL Magnesium (1.6-2.6) mg/dL Total Bilirubin (0.0-1.0) mg/dL Direct Bilirubin (0.0-0.5) mg/dL AST (5-37) U/L ALT (0-40) U/L Alkaline Phosphatase (39-117) U/L Troponin I High Sens 2845.1 H* D (<3.5-35.0) ng/L C-Reactive Protein 6.26 H (< or = 0.50) mg/dL B-Natriuretic Peptide 3486 H (<100) pg/mL Total Protein (6.5-8.0) g/dL Albumin (3.5-5.0) g/dL Urine Color Urine Appearance Urine pH (5.0-8.0) Ur Specific [place] (1.005-1.025) Urine Protein (NEG-TRACE) MG/DL Urine Glucose (UA) (NEG) MG/DL Urine Ketones (NEG) MG/DL Urine Blood (NEG) Urine Nitrite (NEG) Ur Leukocyte Esterase (NEG) Urine RBC (0) /HPF Urine WBC (0-4) /HPF Ur Squamous Epith Cells /LPF Urine Bacteria /LPF Acetaminophen (<30) mcg/mL Ethyl Alcohol mg/dL COVID-19 (JAMILA) (Negative) COVID-19 Clin Com 05/27/22 05/27/22 Range/Units 13:58 14:09 WBC (4.8-10.8) X10*3/uL RBC (4.60-5.80) X10*6/uL Hgb (14.0-18.0) g/dl Hct (42.0-52.0) % MCV (80.0-98.0) fL MCH (27.0-33.0) pg MCHC (31.0-36.0) g/dl RDW (11.0-16.0) % Plt Count (160-400) X10*3/uL MPV (9.4-12.4) fL Immature Gran % (Auto) (0.0-0.4) % Neut % (Auto) (45-73) % Lymph % (Auto) (20-40) % Stone % (Auto) (2-11) % Eos % (Auto) (0-4) % Baso % (Auto) (0-2) % Lymph # (Auto) (1.2-4.9) X10*3/uL Stone # (Auto) (0.1-1.2) X10*3/uL Eos # (Auto) (0.0-0.4) X10*3/uL Baso # (Auto) (0.0-0.2) X10*3/uL Abs Immat Gran (auto) (0.00-0.03) X10*3/uL Absolute Neuts (auto) (2.0-8.3) x10*3/uL Absolute Nucleated RBC (0.0-0.012) X10*3/uL Nucleated RBC % (auto) (0.0-0.2) /100WBC ESR (0-15) MM/HR PT (10.0-13.1) SEC INR (0.9-1.1) APTT (24.1-38.0) SEC Sodium (135-145) mmol/L Potassium (3.3-5.1) mmol/L Chloride (96-108) mmol/L Carbon Dioxide (22-29) mmol/L Anion Gap (12-20) BUN (9-16) mg/dL Creatinine (0.5-1.4) mg/dL Estim Creat Clear Calc Estimated GFR Random Glucose (60-115) mg/dL Lactic Acid (0.5-2.0) mmol/L Calcium (8.4-10.2) mg/dL Magnesium (1.6-2.6) mg/dL Total Bilirubin (0.0-1.0) mg/dL Direct Bilirubin (0.0-0.5) mg/dL AST (5-37) U/L ALT (0-40) U/L Alkaline Phosphatase (39-117) U/L Troponin I High Sens (<3.5-35.0) ng/L C-Reactive Protein (< or = 0.50) mg/dL B-Natriuretic Peptide (<100) pg/mL Total Protein (6.5-8.0) g/dL Albumin (3.5-5.0) g/dL Urine Color DK YELLOW Urine Appearance CLEAR Urine pH 6.0 (5.0-8.0) Ur Specific [place] 1.020 (1.005-1.025) Urine Protein 1+ H (NEG-TRACE) MG/DL Urine Glucose (UA) 100 H (NEG) MG/DL Urine Ketones NEG (NEG) MG/DL Urine Blood TRACE (NEG) Urine Nitrite NEG (NEG) Ur Leukocyte Esterase NEG (NEG) Urine RBC 0-2 (0) /HPF Urine WBC 0-2 (0-4) /HPF Ur Squamous Epith Cells 1+ /LPF Urine Bacteria TRACE /LPF Acetaminophen < 1 (<30) mcg/mL Ethyl Alcohol < 10 mg/dL COVID-19 (JAMILA) (Negative) COVID-19 Clin Com <YAKOV Kim - Last Filed: 05/27/22 20:44> ECG Data Attestation EKG: I personally reviewed and interpreted this ECG as follows: <YAKOV Smith - Last Filed: 05/27/22 18:12> ECG interpretation date: 05/27/22 <YAKOV Smith - Last Filed: 05/27/22 18:12> ECG interpretation time: 12:10 <YAKOV Smith - Last Filed: 05/27/22 18:12> Prior ECG tracings: available for review <YAKOV Smith - Last Filed: 05/27/22 18:12> Interpretation: Normal sinus rhythm at 65BPM with short [place] interval at 80ms. QT/QTC 484/503ms. ST depression in leads I and V2. T wave inversion noted in V1 and V2. Right branch bundle block noted. <YAKOV Smith - Last Filed: 05/27/22 18:12> Procedures Central Line Placement Right IJ: Time Out Performed: Yes <YAKOV Kim - Last Filed: 05/27/22 20:44> Patient Placed on Monitor/Pulse Ox: Yes <YAKOV Kim - Last Filed: 05/27/22 20:44> MD Prep: mask, gown and gloves <YAKOV Kim - Last Filed: 05/27/22 20:44> Central Line Prep: Chlorhexidine scrub and sterile drapes applied <YAKOV Kim - Last Filed: 05/27/22 20:44> Local Anesthetic: lidocaine 1% <YAKOV Kim - Last Filed: 05/27/22 20:44> Amount of anesthesia used (mL): 5 <YAKOV Kim - Last Filed: 05/27/22 20:44> Ultrasound Used for Placement: Yes <YAKOV Kim - Last Filed: 05/27/22 20:44> Central Line Lumen Inserted: triple <YAKOV Kim - Last Filed: 05/27/22 20:44> Post Procedure: sutured in place, good blood return, all ports aspirated, flushed, capped and sterile dressing applied <YAKOV Kim - Last Filed: 05/27/22 20:44> Post Procedure X-Ray: tip of catheter in good position and no pneumothorax seen <YAKOV Kim - Last Filed: 05/27/22 20:44> Patient Tolerated Procedure: well <YAKOV Kim - Last Filed: 05/27/22 20:44> Complications: none <YAKOV Kim - Last Filed: 05/27/22 20:44> Critical Care Time Critical Care Time Critical Care Time: Yes <YAKOV Smith - Last Filed: 05/27/22 18:12> Total Critical Care Time: 62 <YAKOV Smith - Last Filed: 05/27/22 18:12> Attestation: I have personally provided critical care time exclusive of time spent on separately billable procedures. Time includes review of lab data, radiology results, discussion with consultants, and monitoring for potential decompensation. Intervention performed as documented. <YAKOV Smith - Last Filed: 05/27/22 18:12> I have personally provided critical care time exclusive of time spent on separately billable procedures. Time includes review of lab data, radiology results, discussion with consultants, and monitoring for potential decompensation. Intervention performed as documented. <YAKOV Kim - Last Filed: 05/27/22 20:44> Discharge Plan Discharge Clinical Impression: Infestation by maggots, Elevated troponin, Osteomyelitis of great toe of left foot, Painless jaundice, Coagulopathy, Hyponatremia <YAKOV Smith - Last Filed: 05/27/22 18:12> Patient Disposition: Admitted As Inpatient <YAKOV Smith - Last Filed: 05/27/22 18:12>
[2022-05-27 12:14] VITALS: PULSE 68; RESP 18; O2SAT 95
[2022-05-27] MEDS: Albuterol Sulfate 90 MCG 8 GM INHALER 2 PUFF INHALE (12:14)
[2022-05-27 12:58] LABS: Prothrombin Time 23.6 SEC (10.0-13.1)
[2022-05-27 13:00] LABS: Partial Thromboplastin Time 26.5 SEC (24.1-38.0)
--- NOTE | 2022-05-27 13:10 | PC.NURSE ---
PT DIFFICULT STICK. IV PLACED BUT BLOODWORK UNABLE TO BE OBTAINED. PT HISTORICALLY DIFF STICK, TECH ALSO UNABLE. PHLEBOTOMY CONTACTED FOR BLOOD DRAW.
[2022-05-27 13:11] LABS: COVID-19 Test Negative (Negative); IDNOW Serial# 9DB6401D
[2022-05-27] MEDS: Piperacillin Sodium/Tazobactam 3.375 GM in 0.9 % Sodium Chloride 50 ML IV ×2 (13:18→20:23)
[2022-05-27] MEDS: Doxycycline Hyclate 100 MG in 0.9 % Sodium Chloride 250 ML 166.67 MG IV (14:03)
[2022-05-27 14:05] LABS: MANUAL DIFF FLAG NO
[2022-05-27 14:07] LABS: Basophils Percent Auto 0.1 % (0-2); Eosinophils Percent Auto 0.2 % (0-4); Hematocrit 39.5 % (42.0-52.0); Hemoglobin 12.9 g/dl (14.0-18.0); Imm Gran Abs Auto 0.06 X10*3/uL (0.00-0.03); Imm Gran Pct Auto 0.4 % (0.0-0.4); Lymphocytes Absolute Auto 1.1 X10*3/uL (1.2-4.9); Lymphocytes Percent Auto 8.1 % (20-40); Mean Corpuscular HGB Conc 32.7 g/dl (31.0-36.0); Mean Corpuscular Hemoglobin 28.2 pg (27.0-33.0); Mean Corpuscular Volume 86.2 fL (80.0-98.0); Monocytes Absolute Auto 1.1 X10*3/uL (0.1-1.2); Neutrophils Absolute Auto 11.5 x10*3/uL (2.0-8.3); Neutrophils Percent Auto 83.2 % (45-73); Platelet Count 194 X10*3/uL (160-400); Red Blood Count 4.58 X10*6/uL (4.60-5.80); White Blood Count 13.9 X10*3/uL (4.8-10.8)
--- NOTE | 2022-05-27 14:08 | PHA.MEDREC ---
Addendum entered by Gifty Mendez, [facility] 05/28/22 12:04: Dr. Delcid contacted pharmacy because patient previously discharged on carvedilol, bumex, entresto, spironolactone etc. Med rec originally correct then nursing went in and HI'ed multiple meds off med rec. Med rec updated and fixedMD notified. Original Note: Pharmacy Consult ? Medication Reconciliation Pharmacy has completed the medication reconciliation. BASED MED REC ON LAST HOSPITAL ADMISSION, PT REPORTED ONLY TAKING METHADONE THIS MORNING, UNKNOWN WHEN HE TOOK OTHER MEDS
--- NOTE | 2022-05-27 14:13 | PC.NURSE ---
Pt to ultra sound and blood work sent.
[2022-05-27 14:19] LABS: Appearance Urine CLEAR; Color Urine DK YELLOW; Glucose Urine UA 100 MG/DL (NEG); Leukocyte Esterase Urine NEG (NEG); Nitrite Urine NEG (NEG); UACC Culture Trigger NO; Urine Blood TRACE (NEG); Urine Ketones NEG (NEG); Urine Protein 1+ MG/DL (NEG-TRACE)
[2022-05-27 14:23] LABS: C Reactive Protein 6.26 mg/dL (< or = 0.50); Ethanol < 10 mg/dL
[2022-05-27 14:29] LABS: Alanine Aminotransferase 242 U/L (0-40); Albumin Level 3.5 g/dL (3.5-5.0); Alkaline Phosphatase 117 U/L (39-117); Anion Gap 16 (12-20); Aspartate Amino Transferase 125 U/L (5-37); Bilirubin Total 11.6 mg/dL (0.0-1.0); Blood Urea Nitrogen 32 mg/dL (9-16); Calcium 8.8 mg/dL (8.4-10.2); Carbon Dioxide 22 mmol/L (22-29); Chloride 91 mmol/L (96-108); Creatinine Clr Calc Pharmacy 60.9; Estimated Glomerular Filt Rate > 60; Glucose Random 222 mg/dL (60-115); Lactic Acid 3.5 mmol/L (0.5-2.0); Magnesium 1.6 mg/dL (1.6-2.6); Potassium 4.3 mmol/L (3.3-5.1); Sodium 125 mmol/L (135-145); Total Protein 7.6 g/dL (6.5-8.0)
[2022-05-27 14:30] LABS: B Type Natriuretic Peptide 3486 pg/mL (<100)
[2022-05-27 14:33] LABS: Squamous Epithelial Cell Urine 1+ /LPF
[2022-05-27 14:34] LABS: Bacteria Urine TRACE /LPF
[2022-05-27 14:35] LABS: RBC Urine 0-2 /HPF (0); WBC Urine 0-2 /HPF (0-4)
[2022-05-27 14:38] LABS: Acetaminophen LAB < 1 mcg/mL (<30)
[2022-05-27 14:55] LABS: Erythrocyte Sedimentation Rate 10 MM/HR (0-15)
[2022-05-27] MEDS: 0.9 % Sodium Chloride 1,000 ML 999 ML IVCONT (15:13)
[2022-05-27 16:03] LABS: Reflex Lactate? Lactic Acid Added
[2022-05-27 18:29] VITALS: PULSE 70; RESP 15; TEMP 36.8; O2SAT 99
--- NOTE | 2022-05-27 20:08 | P.HPHOSP_ITS ---
History of Present Illness Date of Service: 05/27/22 Chief Complaint: toe pain This is a 51-year-old male with an extensive past medical history place see below, who presents to the hospital with complaints of pain in his left toe. Patient is [place]-speaking only, history is obtained with the help of an coke loader. Patient is very vague historian, unable to get much accurate history from him, he reports that his friend called the ambulance to bring him to the hospital, although he is not sure why, when I asked him or he says maybe because of his foot. When asked more about his foot he says that for the past 2 days he noticed increased pain, there are maggots crawling out of the wound in his right big toe, when I asked him about this, he reports that he just to cold and he was unaware of any maggots. Patient currently denies any chest pain, no abdominal pain, he has jaundice, reports that people have been telling him that he looks yellow for the past few days otherwise has no nausea or vomiting, no diarrhea constipation, no urinary symptoms. Per his patient's medical record patient has been seen by Dr. Vaughn for a a nonhealing left great toe, who also performed a left anterior tibial artery and left popliteal artery angioplasty on 04/27/2022.? He was last seen on 05/02/2022 and no reports that the left toes seem to be progressing well.? He was getting local wound care at that time and had follow-up in 2 weeks. Patient denies any orthopnea, PND, no dyspnea. On arrival to the ED patient was found to be hemodynamically stable with no significant abnormal vitals Labs are significant for WBC count of 11.1, hemoglobin of 11.8, hematocrit 35.7, PT of 23, INR of 2.0, sodium of 125, chloride 92, BUN of 25, creatinine of 0.96, lactic acid of 3.5 that improved after IV fluids, total bilirubin of 11.6, direct bilirubin of 8.0, AST of 125, ALT of 242, troponin of 2845, BNP of 3486, he has chronic elevated BNP but this seems to be worse. UA negative, Imaging including abdominal pelvic CT showed right colon colitis, small amount of ascites, fatty liver and question of mild cirrhotic changes, periorbital lymphadenopathy, gallstones. No biliary duct dilatation or bile duct stone seen by CT, moderate right pleural effusion and right lower lobe pneumonia. Doppler study ultrasound of the abdomen shows cholelithiasis with gallbladder sludge with color wall thickening and mild intramural edema compatible with cholecystitis. Venous duplex shows no DVT in the left lower extremity Foot x-ray shows findings compatible with joint sepsis and periarticular osteomyelitis of the great toe IP joint. Interval bone destruction or erosive change. Patient start with IV antibiotics, surgery, Cardiology, will both consulted above findings. Patient will be admitted for further management Review of Systems Review of Systems: Yes all other systems are reviewed and are negative [facility] Medical History Abscess or cellulitis of foot Acute on chronic anemia Acute on chronic combined systolic and diastolic congestive heart failure Acute on chronic HFrEF (heart failure with reduced ejection fraction) Acute respiratory failure with hypoxia Asthma Bipolar 1 disorder BPH (benign prostatic hyperplasia) CHF (congestive heart failure) CHF (congestive heart failure) CHF exacerbation Cholelithiasis Closed wedge compression fracture of T9 vertebra COPD (chronic obstructive pulmonary disease) Diabetes mellitus Diabetes mellitus, type 2 Elevated troponin GERD (gastroesophageal reflux disease) Hyperlipidemia Ischemic cardiomyopathy Lymphadenopathy Opiate abuse, continuous Osteomyelitis Osteomyelitis of great toe Peripheral arterial disease Peripheral neuropathy Peripheral vascular disease Substance abuse Tracheomalacia, acquired Transaminitis Family History Father Chronic mental illness Hypertension Asthma Stroke Mother Asthma Diabetes Coronary artery disease Surgical History History of amputation History of laminectomy History of transurethral resection of prostate Hx of BKA Social History Household Members: Unknown / Unable to assess Housing: House Housing Other:: IN A LITTLE ROOM Do you presently have visiting nurse or other home services: No Unable to assess alcohol history related to: Refusing to respond Alcohol intake: unknown Patient Tobacco Use Status: Never used Tobacco e-Cigarette/Vaping Use: Never Used Second Hand Smoke Exposure: No Substance Use Type: Opiates Advance Directives: Yes Advance Directives on File: Yes Advance Directives Date on File: 11/24/20 service: No Current occupational status: disabled Meds Allergies Allergy/AdvReac Type Severity Reaction Status Date / Time ertapenem Allergy Intermediate Hives Verified 02/21/22 18:40 vancomycin [VANCOMYCIN] Allergy Intermediate HIVES Verified 02/21/22 18:40 Chocolate Allergy Unknown Rash Verified 02/21/22 18:40 ciprofloxacin [From CIPRO] Allergy Unknown SWELLING Verified 02/21/22 18:40 hydrocortisone [Cipro HC] Allergy Unknown Unknown Verified 02/21/22 18:40 sulfamethoxazole Allergy Unknown rash Verified 02/21/22 18:40 [From BACTRIM] trimethoprim [From BACTRIM] Allergy Unknown rash Verified 02/21/22 18:40 turkey [TURKEY] Allergy Unknown RASH Verified 02/21/22 18:40 Active Medications: Current Medications Acetaminophen (Acetaminophen 325 Mg Tablet) 650 mg PO Q6H PRN PRN Reason: Pain, Mild (Pain Scale 1-3) Docusate Sodium (Docusate Sodium 100 Mg Capsule) 100 mg PO DAILY PRN PRN Reason: Constipation Heparin Sodium (Porcine) (Heparin Sodium,Porcine 5,000 Unit/Ml Vial) 5,000 unit SUBCUT Q12H [facility] Piperacillin Sod/Tazobactam (Sod 3.375 gm/ Sodium Chloride) 50 mls @ 100 mls/hr IV Q6H [facility] Lactated Ringer's (Lr) 1,000 mls @ 50 mls/hr IVCONT .Q20H [facility] Linezolid (Zyvox/D5w) 600 mg in 300 mls @ 300 mls/hr IV Q12H [facility] Ondansetron HCl (Ondansetron Hcl 4 Mg/2 Ml Vial) 4 mg IVPUSH Q8H PRN PRN Reason: Nausea and Vomiting Pharmacy Consult (Consult Rx Perform Med Rec) 1 each MISCELLANE ONCE PRN PRN Reason: Consult order Sodium Chloride (0.9 % Sodium Chloride Flush 3 Ml Syringe) 3 ml IVFLUSH QSHIFT [facility] Home Medications Medication Instructions Recorded Confirmed Last Taken Type aspirin 81 mg tablet,delayed 1 tab PO QAM 05/28/22 05/28/22 Unknown History release atorvastatin 20 mg tablet 1 tab PO BEDTIME 05/28/22 05/28/22 Unknown History fluticasone 500 mcg-salmeterol 50 1 puff PO BID 05/28/22 05/28/22 Unknown History mcg/dose blistr powdr for inhalation (Advair Diskus) insulin aspart U-100 100 unit/mL 5 unit subcut TID 05/28/22 05/28/22 Unknown History (3 mL) subcutaneous pen (Novolog Flexpen U-100 Insulin aspart) insulin glargine 100 unit/mL (3 10 unit subcut QPM 05/28/22 05/28/22 Unknown History mL) subcutaneous pen (Lantus Solostar U-100 Insulin) montelukast 10 mg tablet 1 tab PO QPM 05/28/22 05/28/22 Unknown History tamsulosin 0.4 mg capsule 1 cap PO QPM 05/28/22 05/28/22 Unknown History Physical Exam Vital Signs and Narrative: Vital Signs: Last Vital Signs Temp 98.2 F 05/27/22 18:29 Pulse 70 05/27/22 18:29 Resp 15 05/27/22 18:29 BP 121/66 05/27/22 12:01 Pulse Ox 99 05/27/22 18:29 O2 Del Method 05/27/22 12:01 BMI result Body Mass Index 22.4 Const: General: cooperative and no acute distress Yaya entation/consciousness: patient oriented x3 HEENT: Other: Scleral icterus present Eyes: General: appearance normal, both eyes and all related structures Resp: Effort & Inspection: normal respiratory effort Auscultation: clear to auscultation bilaterally Cardio: Rate: regular rate Rhythm: regular rhythm GI: Palpation (GI): Soft to palpation Auscultation: normal bowel sounds Skin: Other: Patient is jaundice General skin exam: no rashes or lesions noted Neuro: General: patient oriented x3 Cognition (Neuro): normal cognition Extrem: Other: Left foot maggots present crawling out of his great toe Results Labs CBC and Chem 7: 05/28/22 05:39 05/28/22 05:39 Labs: Laboratory Results - last 24 hr 05/27/22 05/27/22 05/27/22 12:47 12:47 13:58 MCV 86.2 MCH 28.2 MCHC 32.7 RDW 20.0 H Plt Count 194 D MPV 10.0 Immature Gran % (Auto) 0.4 Neut % (Auto) 83.2 H Lymph % (Auto) 8.1 L [place] % (Auto) 8.0 Eos % (Auto) 0.2 Baso % (Auto) 0.1 Lymph # (Auto) 1.1 L [place] # (Auto) 1.1 Eos # (Auto) 0.0 Baso # (Auto) 0.0 Abs Immat Gran (auto) 0.06 H Absolute Neuts (auto) 11.5 H Absolute Nucleated RBC 0.000 Nucleated RBC % (auto) 0.0 ESR PT 23.6 H INR 2.0 H APTT 26.5 D Anion Gap Estim Creat Clear Calc Estimated GFR Random Glucose Lactic Acid Calcium Magnesium Total Bilirubin Direct Bilirubin AST ALT Alkaline Phosphatase Troponin I High Sens C-Reactive Protein B-Natriuretic Peptide Total Protein Albumin Urine Color Urine Appearance Urine pH Ur Specific [place] Urine Protein Urine Glucose (UA) Urine Ketones Urine Blood Urine Nitrite Ur Leukocyte Esterase Urine RBC Urine WBC Ur Squamous Epith Cells Urine Bacteria Acetaminophen Ethyl Alcohol COVID-19 (JAMILA) Negative COVID-19 [facility] Com See Note 05/27/22 05/27/22 05/27/22 13:58 13:58 13:58 MCV MCH MCHC RDW Plt Count MPV Immature Gran % (Auto) Neut % (Auto) Lymph % (Auto) [place] % (Auto) Eos % (Auto) Baso % (Auto) Lymph # (Auto) [place] # (Auto) Eos # (Auto) Baso # (Auto) Abs Immat Gran (auto) Absolute Neuts (auto) Absolute Nucleated RBC Nucleated RBC % (auto) ESR 10 PT INR APTT Anion Gap 16 Estim Creat Clear Calc 60.9 Estimated GFR > 60 Random Glucose 222 H D Lactic Acid 3.5 H* Calcium 8.8 Magnesium 1.6 Total Bilirubin 11.6 H Direct Bilirubin 8.0 H AST 125 H ALT 242 H Alkaline Phosphatase 117 D Troponin I High Sens C-Reactive Protein B-Natriuretic Peptide Total Protein 7.6 Albumin 3.5 Urine Color Urine Appearance Urine pH Ur Specific [place] Urine Protein Urine Glucose (UA) Urine Ketones Urine Blood Urine Nitrite Ur Leukocyte Esterase Urine RBC Urine WBC Ur Squamous Epith Cells Urine Bacteria Acetaminophen Ethyl Alcohol COVID-19 (JAMILA) COVID-19 [facility] Com 05/27/22 05/27/22 05/27/22 13:58 13:58 13:58 MCV MCH MCHC RDW Plt Count MPV Immature Gran % (Auto) Neut % (Auto) Lymph % (Auto) [place] % (Auto) Eos % (Auto) Baso % (Auto) Lymph # (Auto) [place] # (Auto) Eos # (Auto) Baso # (Auto) Abs Immat Gran (auto) Absolute Neuts (auto) Absolute Nucleated RBC Nucleated RBC % (auto) ESR PT INR APTT Anion Gap Estim Creat Clear Calc Estimated GFR Random Glucose Lactic Acid Calcium Magnesium Total Bilirubin Direct Bilirubin AST ALT Alkaline Phosphatase Troponin I High Sens 2845.1 H* D C-Reactive Protein 6.26 H B-Natriuretic Peptide 3486 H Total Protein Albumin Urine Color Urine Appearance Urine pH Ur Specific [place] Urine Protein Urine Glucose (UA) Urine Ketones Urine Blood Urine Nitrite Ur Leukocyte Esterase Urine RBC Urine WBC Ur Squamous Epith Cells Urine Bacteria Acetaminophen Ethyl Alcohol COVID-19 (JAMILA) COVID-19 [facility] Com 05/27/22 05/27/22 13:58 14:09 MCV MCH MCHC RDW Plt Count MPV Immature Gran % (Auto) Neut % (Auto) Lymph % (Auto) [place] % (Auto) Eos % (Auto) Baso % (Auto) Lymph # (Auto) [place] # (Auto) Eos # (Auto) Baso # (Auto) Abs Immat Gran (auto) Absolute Neuts (auto) Absolute Nucleated RBC Nucleated RBC % (auto) ESR PT INR APTT Anion Gap Estim Creat Clear Calc Estimated GFR Random Glucose Lactic Acid Calcium Magnesium Total Bilirubin Direct Bilirubin AST ALT Alkaline Phosphatase Troponin I High Sens C-Reactive Protein B-Natriuretic Peptide Total Protein Albumin Urine Color DK YELLOW Urine Appearance CLEAR Urine pH 6.0 Ur Specific [place] 1.020 Urine Protein 1+ H Urine Glucose (UA) 100 H Urine Ketones NEG Urine Blood TRACE Urine Nitrite NEG Ur Leukocyte Esterase NEG Urine RBC 0-2 Urine WBC 0-2 Ur Squamous Epith Cells 1+ Urine Bacteria TRACE Acetaminophen < 1 Ethyl Alcohol < 10 COVID-19 (JAMILA) COVID-19 Clin Com Imaging Radiologist's Impressions: Impressions Foot X-Ray 05/27/22 13:10 IMPRESSION: 1. Findings compatible with sequela of joint sepsis and periarticular osteomyelitis of the great toe IP joint. No further significant interval bone destruction or erosive change. 2. Overlying soft tissue wound. No tracking soft tissue gas. Venous Duplex 05/27/22 14:30 IMPRESSION: No DVT demonstrated in the left lower extremity. Abdomen Ultrasound 05/27/22 17:15 IMPRESSION: 1. Cholelithiasis and gallbladder sludge with color wall thickening and mild intramural edema compatible with cholecystitis. Correlate clinically with signs or symptoms of acute cholecystitis. 2. No biliary ductal dilation. 3. Normal homogeneous hepatic echogenicity was slightly lobulated/nodular liver surface contour, which may be due to underlying liver fibrosis. No liver lesion. 4. Patent portal vein with normal directional flow. Hepatic veins and splenic vein also patent. 5. Right pleural effusion and small amount of perihepatic ascites. 6. Small hypoechoic nodule adjacent to the pancreatic head, likely a small peripancreatic lymph node. Doppler Study Ultrasound 05/27/22 17:15 IMPRESSION: 1. Cholelithiasis and gallbladder sludge with color wall thickening and mild intramural edema compatible with cholecystitis. Correlate clinically with signs or symptoms of acute cholecystitis. 2. No biliary ductal dilation. 3. Normal homogeneous hepatic echogenicity was slightly lobulated/nodular liver surface contour, which may be due to underlying liver fibrosis. No liver lesion. 4. Patent portal vein with normal directional flow. Hepatic veins and splenic vein also patent. 5. Right pleural effusion and small amount of perihepatic ascites. 6. Small hypoechoic nodule adjacent to the pancreatic head, likely a small peripancreatic lymph node. Chest X-Ray 05/27/22 17:46 IMPRESSION: Congestive heart failure. Opacification over the right lung base probably pleural effusion, cannot rule out underlying infiltrate and/or atelectasis. Assessment and Plan (1) Infestation by maggots: Status: Acute (2) Osteomyelitis of great toe of left foot: Status: Acute (3) Elevated troponin: Status: Acute (4) Painless jaundice: Status: Acute (5) Cholecystitis: Status: Acute (6) Hyponatremia: Status: Acute (7) Elevated brain natriuretic peptide (BNP) level: Status: Acute (8) Pneumonia: Status: Acute (9) Coagulopathy: Status: Acute Plan 51-year-old male with extensive past medical history who returns to the hospital with findings of osteomyelitis and maggot infestation in the wound in his left toe. He has also been found to have multiple other abnormalities as below # osteomyelitis, maggot infestation of wound - left great toe - status post angioplasty by vascular surgery in April - will treat with IV antibiotics - surgery as well as infectious disease consulted - follow cultures ( has vancomycin allergy, will start him on linezolid) # hyperbilirubinemia/painless jaundice/cholecystitis? - evidence of cholecystitis on abdominal CT/HIDA scan - patient will be on IV antibiotics as above - will add Flagyl to his antibiotic regimen - surgery is on consult - n.p.o. diet # elevated troponin - denies any chest pain, EKG shows T-wave inversions in 1, V1 V2 and slight ST wave depression in lead 5 and 6 - case was discussed with Cardiology with no recommendation for heparin drip at this time - will trend troponin - admit to telemetry # elevated BNP - patient has history of CHF with ejection fraction of 15% - he is not in respiratory distress, denies any dyspnea, no orthopnea, no PND - has no evidence of pulmonary congestion on chest x-ray - patient received Lasix, will continue - cardiology consulted # pneumonia - patient has pneumonia on chest x-ray - patient will be IV antibiotics for above reasons therefore he will be covered - follow cultures - monitor respiratory status # hyponatremia - unclear etiology at this time, possibly secondary to volume overload in the setting of CHF - will obtain urine studies, urine sodium and creatinine, urine osmolality as well as serum osmolality pending - nephrology consulted - follow BMP #Coagulopathy - in the setting of liver failure - no evidence of bleed at this time - H&H stable - follow PT INR # diabetes - low sliding scale insulin - diabetic diet DVT prophylaxis: Heparin subQ Given the significant complicated presentation of this patient with multiple acute abnormalities and disease patient will require a minimum 2 night hospital stay for further management and monitoring Quality Stroke Does the patient have a stroke diagnosis?: No VTE Prior VTE?: No VTE Risk Level:: Medical - moderate - high VTE Device Contraindication: Treatment Not Indicated VTE Drug Contraindication: N/A - Med Ordered
[2022-05-27] MEDS: iohexoL 350 MG/ML 100 ML INFUS..BTL IV (20:11)
[2022-05-27] MEDS: Heparin Sodium,Porcine 5,000 UNIT/ML VIAL 5000 UNIT SUBCUT (21:52)
[2022-05-27] MEDS: Linezolid/D5W 600 MG/300 ML PIGGYBACK 300 MG IV (21:53)
[2022-05-27 21:57] LABS: ~Lactic Acid-LAB USE ONLY 2.2 mmol/L (0.5-2.0)
[2022-05-27 23:28] LABS: Reflex Lactate? 2 Y
[2022-05-28] MEDS: 0.9 % Sodium Chloride Flush 3 ML SYRINGE IVFLUSH ×4 (00:07→23:35)
[2022-05-28 00:40] LABS: ~Lactic Acid-LAB USE ONLY 2.2 mmol/L (0.5-2.0)
[2022-05-28] MEDS: Piperacillin Sodium/Tazobactam 3.375 GM in 0.9 % Sodium Chloride 50 ML IV ×3 (02:07→14:49)
[2022-05-28 05:46] LABS: Basophils Percent Auto 0.1 % (0-2); Eosinophils Percent Auto 0.4 % (0-4); Hematocrit 35.7 % (42.0-52.0); Hemoglobin 11.8 g/dl (14.0-18.0); Imm Gran Abs Auto 0.06 X10*3/uL (0.00-0.03); Imm Gran Pct Auto 0.5 % (0.0-0.4); Lymphocytes Absolute Auto 0.8 X10*3/uL (1.2-4.9); MANUAL DIFF FLAG NO; Mean Corpuscular HGB Conc 33.1 g/dl (31.0-36.0); Mean Corpuscular Hemoglobin 28.6 pg (27.0-33.0); Mean Corpuscular Volume 86.4 fL (80.0-98.0); Mean Platelet Volume 9.9 fL (9.4-12.4); Monocytes Absolute Auto 1.1 X10*3/uL (0.1-1.2); Monocytes Percent Auto 9.8 % (2-11); Neutrophils Absolute Auto 9.1 x10*3/uL (2.0-8.3); Neutrophils Percent Auto 82.2 % (45-73); Platelet Count 142 X10*3/uL (160-400); Red Blood Count 4.13 X10*6/uL (4.60-5.80); Red Cell Distribution Width 20.4 % (11.0-16.0); White Blood Count 11.1 X10*3/uL (4.8-10.8)
[2022-05-28 06:11] LABS: Alanine Aminotransferase 172 U/L (0-40); Albumin Level 2.9 g/dL (3.5-5.0); Alkaline Phosphatase 97 U/L (39-117); Anion Gap 13 (12-20); Aspartate Amino Transferase 86 U/L (5-37); Bilirubin Total 10.1 mg/dL (0.0-1.0); Blood Urea Nitrogen 25 mg/dL (9-16); Calcium 8.6 mg/dL (8.4-10.2); Carbon Dioxide 25 mmol/L (22-29); Chloride 92 mmol/L (96-108); Creatinine Clr Calc Pharmacy 79.3; Estimated Glomerular Filt Rate > 60; Glucose Random 188 mg/dL (60-115); Sodium 126 mmol/L (135-145); Total Protein 6.4 g/dL (6.5-8.0)
[2022-05-28 07:39] LABS: Glucose, Whole Blood 161 mg/dL (60-115)
[2022-05-28 08:12] LABS: Osmolality, Serum 280 mosm/kg (281-305)
[2022-05-28] MEDS: Aspirin Enteric Coated 81 MG TABLET.DR PO (08:33)
[2022-05-28] MEDS: Heparin Sodium,Porcine 5,000 UNIT/ML VIAL 5000 UNIT SUBCUT ×2 (08:34→22:51)
[2022-05-28 08:39] VITALS: BP 124/79; PULSE 64; RESP 20; O2SAT 97
[2022-05-28] MEDS: Phytonadione (Vit K1) Oral 10 MG/ML AMPUL PO (08:53)
--- NOTE | 2022-05-28 09:10 | PC.NURSE ---
Addendum entered by Phylicia Penn 05/28/22 10:04: pt also reports he is on methadone, at the [facility], this rn asked Rene to please confirm the doses, also awaiting for the pharmacy to bring up the other abx Original Note: pt alert and oriented, skin jaundice in appearance, sclera also yellow, respirations even and unlabored, pt reports having some pain in the left great toe, pt is currently upset because he wants coffee but pt is npo do to a HIDA scan of the abd.
--- NOTE | 2022-05-28 09:42 | MHC.RECOVSUP ---
Recovery Support note: This screenplay writer assisted patient's RN in verifying his methadone dose. Amy at [facility] ([phone]) confirms patient receives 52mg and was last dosed in the clinic yesterday, 05/27/22. Patient received 3 take home bottles. Amy reports patient will need to bring the full bottles back to the clinic to be destroyed upon discharge. Patient aware. Verification form completed and faxed to pharmacy.
[2022-05-28 09:52] LABS: C Reactive Protein 5.73 mg/dL (< or = 0.50)
[2022-05-28] MEDS: Linezolid/D5W 600 MG/300 ML PIGGYBACK 300 MG IV ×2 (10:12→22:52)
[2022-05-28 10:18] LABS: Procalcitonin 0.27 ng/mL
[2022-05-28] MEDS: methADONE HCl 20 MG/2 ML ORAL.CONC 50 MG PO (10:24)
--- NOTE | 2022-05-28 10:40 | MHC.CM.PN ---
PT REPORTS HE LIVES ALONE AND HAS NO SERVICES IN THE HOME HE REPORTS HE GOES TO THE [facility]IN[facility] BUT ALREADY HAS THREE TAKE HOME BOTTLES PER WEEK HE REPORTS HE TAKES THE BUS WHEN HE HAS TO GO BECAUSE HIS PT-1 WAS DISCONTINUED PT REPORTS HIS PCP IS HALLIE VILLASENOR HE SAYS HE IS COVID-19 VACCINATED AND HAS HAD ONE BOOSTER PT HAS A HCP ON FILE PT REPORTS HE IS NOT GOING TO GO TO [facility] EVEN THOUGH HE KNOWS HE WILL NEED IV ABX AT DC HE REPORTS HE HAS FRIENDS AT HOME THAT COME OVER DAILY TO SMOKE MARIJUANA WITH HIM AND SINCE IT IS LEGAL NOW HE WANTS TO BE THERE TO PARTAKE. HE REPORTS THERE WILL BE NO ONE AT THE REHAB TO DO THIS WITH. CM DID REMIND HIM THAT IT WOULD BE LEGAL WHEN HE RETURNED HOME WELL, HOWEVER HE REPORTS HE IS NOT WILLING TO GO. CURRENT DC PLAN IS HOME WITH RESUMPTION OF [facility] SERVICES PT WILL LIKELY NEED THE SHUTTLE
--- NOTE | 2022-05-28 10:56 | PC.NURSE ---
pt of to the HIDA scan
--- NOTE | 2022-05-28 11:16 | HO.PM.IMPN ---
Subjective Subjective Date of Service: 05/28/22 Interval History: R foot pain controlled Surprisingly unconcerned about maggots Notes jaundice. Denies abd pain, nausea or vomiting. No cough. Review of Systems Review of Systems: Yes all other systems are reviewed and are negative Physical Exam Vital Signs: Vital Signs: Last Vital Signs Temp 98.2 F 05/27/22 18:29 Pulse 64 05/28/22 08:39 Resp 20 05/28/22 08:39 BP 124/79 05/28/22 08:39 Pulse Ox 97 05/28/22 08:39 O2 Del Method 05/28/22 08:39 BMI result Body Mass Index 22.4 Gen: in no acute distress HEENT: sclera icteric, moist mucus membranes Neck: supple Lungs: clear to auscultation bilaterally Heart: regular rate and rhythm, no murmurs Abd: soft, non-tender, non-distended Ext: ?s/p R BKA, L great toe with proximal wound on dorsal aspect that is 3-4 cm in diameter, with proximal erythema and induration; L DP +PT pulses nonpalpable Skin: warm/well-perfused, jaundiced Neuro: alert and oriented x3, no focal findings Psych: appropriate affect Objective Data Active Medications Acetaminophen (Acetaminophen 325 Mg Tablet) 650 mg PO Q6H PRN PRN Reason: Pain, Mild (Pain Scale 1-3) Aspirin (Aspirin Enteric Coated 81 Mg Tablet.) 81 mg PO DAILY [facility] Last Admin: 05/28/22 08:33 Dose: 81 mg Documented By: ROSA Atorvastatin Calcium (Atorvastatin Calcium 20 Mg Tablet) 20 mg PO BEDTIME [facility] Docusate Sodium (Docusate Sodium 100 Mg Capsule) 100 mg PO DAILY PRN PRN Reason: Constipation Fluticasone/Vilanterol (Fluticasone/Vilanterol 200/25 Blst.W.Dev) 1 puff INHALE RDAILY [facility] Last Admin: 05/28/22 09:14 Dose: Not Given Documented By: MER Non-Admin Reason: new order. Med not avail Heparin Sodium (Porcine) (Heparin Sodium,Porcine 5,000 Unit/Ml Vial) 5,000 unit SUBCUT Q12H [facility] Last Admin: 05/28/22 08:34 Dose: 5,000 unit Documented By: ROSA Piperacillin Sod/Tazobactam (Sod 3.375 gm/ Sodium Chloride) 50 mls @ 100 mls/hr IV Q6H [facility] Last Infusion: 05/28/22 09:10 Dose: 0 mls/hr Documented By: LOBO Linezolid (Zyvox/D5w) 600 mg in 300 mls @ 300 mls/hr IV Q12H [facility] Last Admin: 05/28/22 10:12 Dose: 300 mls/hr Documented By: ROSA Insulin Glargine (Insulin Glargine,Hum.Rec.Anlog 100 Unit/Ml 10 Ml Vial) 10 unit SUBCUT DAILY@1700 [facility] Insulin Human Lispro (Insulin Lispro 100 Unit/Ml 3 Ml Vial) 5 unit SUBCUT TIDAC [facility] Insulin Human Lispro (Insulin Lispro 100 Unit/Ml 3 Ml Vial) 0 unit SUBCUT QIDACHS [facility]; Protocol Methadone HCl (Methadone Hcl 20 Mg/2 Ml Oral.Conc) 50 mg PO DAILY [facility] Last Admin: 05/28/22 10:24 Dose: 50 mg Documented By: ROSA Montelukast Sodium (Montelukast Sodium 10 Mg Tablet) 10 mg PO BEDTIME [facility] Ondansetron HCl (Ondansetron Hcl 4 Mg/2 Ml Vial) 4 mg IVPUSH Q8H PRN PRN Reason: Nausea and Vomiting Pharmacy Consult (Consult Rx Perform Med Rec) 1 each MISCELLANE ONCE PRN PRN Reason: Consult order Sodium Chloride (0.9 % Sodium Chloride Flush 3 Ml Syringe) 3 ml IVFLUSH QSHIFT [facility] Last Admin: 05/28/22 08:33 Dose: 3 ml Documented By: ROSA Tamsulosin HCl (Tamsulosin Hcl 0.4 Mg Capsule) 0.4 mg PO DAILY@1700 [facility] Labs CBC & Chem 7: 05/28/22 05:39 05/28/22 05:39 Labs: Laboratory Results - last 24 hr 05/27/22 05/27/22 05/27/22 12:47 12:47 13:58 MCV 86.2 MCH 28.2 MCHC 32.7 RDW 20.0 H Plt Count 194 D MPV 10.0 Immature Gran % (Auto) 0.4 Neut % (Auto) 83.2 H Lymph % (Auto) 8.1 L Foard % (Auto) 8.0 Eos % (Auto) 0.2 Baso % (Auto) 0.1 Lymph # (Auto) 1.1 L Foard # (Auto) 1.1 Eos # (Auto) 0.0 Baso # (Auto) 0.0 Abs Immat Gran (auto) 0.06 H Absolute Neuts (auto) 11.5 H Absolute Nucleated RBC 0.000 Nucleated RBC % (auto) 0.0 ESR PT 23.6 H INR 2.0 H APTT 26.5 D Anion Gap Estim Creat Clear Calc Estimated GFR POC Glucose Random Glucose Osmolality Lactic Acid Lactic Acid F/U @ 2Hr Lactic Acid F/U @ 4Hr Calcium Magnesium Total Bilirubin Direct Bilirubin AST ALT Alkaline Phosphatase Troponin I High Sens C-Reactive Protein B-Natriuretic Peptide Total Protein Albumin Procalcitonin Urine Color Urine Appearance Urine pH Ur Specific [place] Urine Protein Urine Glucose (UA) Urine Ketones Urine Blood Urine Nitrite Ur Leukocyte Esterase Urine RBC Urine WBC Ur Squamous Epith Cells Urine Bacteria Acetaminophen Ethyl Alcohol COVID-19 (JAMILA) Negative COVID-[place]vin[place] See Note 05/27/22 05/27/22 05/27/22 13:58 13:58 13:58 MCV MCH MCHC RDW Plt Count MPV Immature Gran % (Auto) Neut % (Auto) Lymph % (Auto) Foard % (Auto) Eos % (Auto) Baso % (Auto) Lymph # (Auto) Foard # (Auto) Eos # (Auto) Baso # (Auto) Abs Immat Gran (auto) Absolute Neuts (auto) Absolute Nucleated RBC Nucleated RBC % (auto) ESR 10 PT INR APTT Anion Gap 16 Estim Creat Clear Calc 60.9 Estimated GFR > 60 POC Glucose Random Glucose 222 H D Osmolality Lactic Acid 3.5 H* Lactic Acid F/U @ 2Hr Lactic Acid F/U @ 4Hr Calcium 8.8 Magnesium 1.6 Total Bilirubin 11.6 H Direct Bilirubin 8.0 H AST 125 H ALT 242 H Alkaline Phosphatase 117 D Troponin I High Sens C-Reactive Protein B-Natriuretic Peptide Total Protein 7.6 Albumin 3.5 Procalcitonin Urine Color Urine Appearance Urine pH Ur Specific [place] Urine Protein Urine Glucose (UA) Urine Ketones Urine Blood Urine Nitrite Ur Leukocyte Esterase Urine RBC Urine WBC Ur Squamous Epith Cells Urine Bacteria Acetaminophen Ethyl Alcohol COVID-19 (JAMILA) COVID-[place] 05/27/22 05/27/22 05/27/22 13:58 13:58 13:58 MCV MCH MCHC RDW Plt Count MPV Immature Gran % (Auto) Neut % (Auto) Lymph % (Auto) Foard % (Auto) Eos % (Auto) Baso % (Auto) Lymph # (Auto) Foard # (Auto) Eos # (Auto) Baso # (Auto) Abs Immat Gran (auto) Absolute Neuts (auto) Absolute Nucleated RBC Nucleated RBC % (auto) ESR PT INR APTT Anion Gap Estim Creat Clear Calc Estimated GFR POC Glucose Random Glucose Osmolality Lactic Acid Lactic Acid F/U @ 2Hr Lactic Acid F/U @ 4Hr Calcium Magnesium Total Bilirubin Direct Bilirubin AST ALT Alkaline Phosphatase Troponin I High Sens 2845.1 H* D C-Reactive Protein 6.26 H B-Natriuretic Peptide 3486 H Total Protein Albumin Procalcitonin Urine Color Urine Appearance Urine pH Ur Specific [place] Urine Protein Urine Glucose (UA) Urine Ketones Urine Blood Urine Nitrite Ur Leukocyte Esterase Urine RBC Urine WBC Ur Squamous Epith Cells Urine Bacteria Acetaminophen Ethyl Alcohol COVID-19 (JAMILA) COVID-19 ieCrowd 05/27/22 05/27/22 05/27/22 13:58 14:09 21:20 MCV MCH MCHC RDW Plt Count MPV Immature Gran % (Auto) Neut % (Auto) Lymph % (Auto) Foard % (Auto) Eos % (Auto) Baso % (Auto) Lymph # (Auto) Foard # (Auto) Eos # (Auto) Baso # (Auto) Abs Immat Gran (auto) Absolute Neuts (auto) Absolute Nucleated RBC Nucleated RBC % (auto) ESR PT INR APTT Anion Gap Estim Creat Clear Calc Estimated GFR POC Glucose Random Glucose Osmolality Lactic Acid Lactic Acid F/U @ 2Hr Lactic Acid F/U @ 4Hr Calcium Magnesium Total Bilirubin Direct Bilirubin AST ALT Alkaline Phosphatase Troponin I High Sens 2775.4 H* C-Reactive Protein B-Natriuretic Peptide Total Protein Albumin Procalcitonin Urine Color DK YELLOW Urine Appearance CLEAR Urine pH 6.0 Ur Specific [place] 1.020 Urine Protein 1+ H Urine Glucose (UA) 100 H Urine Ketones NEG Urine Blood TRACE Urine Nitrite NEG Ur Leukocyte Esterase NEG Urine RBC 0-2 Urine WBC 0-2 Ur Squamous Epith Cells 1+ Urine Bacteria TRACE Acetaminophen < 1 Ethyl Alcohol < 10 COVID-19 (JAMILA) COVID-19 ieCrowd 05/27/22 05/28/2222 21:20 00:12 05:39 MCV 86.4 MCH 28.6 MCHC 33.1 RDW 20.4 H Plt Count 142 L D MPV 9.9 Immature Gran % (Auto) 0.5 H Neut % (Auto) 82.2 H Lymph % (Auto) 7.0 L Foard % (Auto) 9.8 Eos % (Auto) 0.4 Baso % (Auto) 0.1 Lymph # (Auto) 0.8 L Foard # (Auto) 1.1 Eos # (Auto) 0.0 Baso # (Auto) 0.0 Abs Immat Gran (auto) 0.06 H Absolute Neuts (auto) 9.1 H Absolute Nucleated RBC 0.000 Nucleated RBC % (auto) 0.0 ESR PT INR APTT Anion Gap Estim Creat Clear Calc Estimated GFR POC Glucose Random Glucose Osmolality Lactic Acid Lactic Acid F/U @ 2Hr 2.2 H* Lactic Acid F/U @ 4Hr 2.2 H* Calcium Magnesium Total Bilirubin Direct Bilirubin AST ALT Alkaline Phosphatase Troponin I High Sens C-Reactive Protein B-Natriuretic Peptide Total Protein Albumin Procalcitonin Urine Color Urine Appearance Urine pH Ur Specific [place] Urine Protein Urine Glucose (UA) Urine Ketones Urine Blood Urine Nitrite Ur Leukocyte Esterase Urine RBC Urine WBC Ur Squamous Epith Cells Urine Bacteria Acetaminophen Ethyl Alcohol COVID-19 (JAMILA) COVID-19 Clin Com 05/28/22 05/28/22 05/28/22 05:39 05:39 05:39 MCV MCH MCHC RDW Plt Count MPV Immature Gran % (Auto) Neut % (Auto) Lymph % (Auto) Foard % (Auto) Eos % (Auto) Baso % (Auto) Lymph # (Auto) Foard # (Auto) Eos # (Auto) Baso # (Auto) Abs Immat Gran (auto) Absolute Neuts (auto) Absolute Nucleated RBC Nucleated RBC % (auto) ESR PT INR APTT Anion Gap 13 Estim Creat Clear Calc 79.3 Estimated GFR > 60 POC Glucose Random Glucose 188 H Osmolality 280 L Lactic Acid Lactic Acid F/U @ 2Hr Lactic Acid F/U @ 4Hr Calcium 8.6 Magnesium Total Bilirubin 10.1 H Direct Bilirubin AST 86 H ALT 172 H Alkaline Phosphatase 97 Troponin I High Sens C-Reactive Protein 5.73 H B-Natriuretic Peptide Total Protein 6.4 L Albumin 2.9 L Procalcitonin 0.27 Urine Color Urine Appearance Urine pH Ur Specific [place] Urine Protein Urine Glucose (UA) Urine Ketones Urine Blood Urine Nitrite Ur Leukocyte Esterase Urine RBC Urine WBC Ur Squamous Epith Cells Urine Bacteria Acetaminophen Ethyl Alcohol COVID-19 (JAMILA) COVID-19 Clin Com 05/28/22 07:35 MCV MCH MCHC RDW Plt Count MPV Immature Gran % (Auto) Neut % (Auto) Lymph % (Auto) Foard % (Auto) Eos % (Auto) Baso % (Auto) Lymph # (Auto) Foard # (Auto) Eos # (Auto) Baso # (Auto) Abs Immat Gran (auto) Absolute Neuts (auto) Absolute Nucleated RBC Nucleated RBC % (auto) ESR PT INR APTT Anion Gap Estim Creat Clear Calc Estimated GFR POC Glucose 161 H Random Glucose Osmolality Lactic Acid Lactic Acid F/U @ 2Hr Lactic Acid F/U @ 4Hr Calcium Magnesium Total Bilirubin Direct Bilirubin AST ALT Alkaline Phosphatase Troponin I High Sens C-Reactive Protein B-Natriuretic Peptide Total Protein Albumin Procalcitonin Urine Color Urine Appearance Urine pH Ur Specific [place] Urine Protein Urine Glucose (UA) Urine Ketones Urine Blood Urine Nitrite Ur Leukocyte Esterase Urine RBC Urine WBC Ur Squamous Epith Cells Urine Bacteria Acetaminophen Ethyl Alcohol COVID-19 (JAMILA) COVID-19 Clin Com Assessment and Plan (1) Infestation by maggots: Status: Acute [facility] d#2 51yo M with insulin-dependent DM2 recently admitted here 04/22-05/02/22 with chronic L foot osteomyelitis and PAD for which he underwent L anterior tibial + popliteal artery angioplasty 04/27/22 # osteomyelitis with maggot infestation of DM foot ulcer of L 1st toe - IV pip/rodrigo + linezolid d#2 - follow BCx - maggots debrided 05/27/22 in ED - ID + Vascular Surgery consults # obstructive jaundice # possible cholecystitis - HIDA scan pending - on pip/rodrigo d#2 - GI + Gen Surg consults; keep NPO; trend LFTs # NSTEMI - without angina. Tn-I peaked/flat. EKG with anterior TWIs, lateral ST depressions. suspect demand ischemia/type 2 physiology. TTE + Cardiology consults pending. continue statin + ASA. # [id number] HFrEF/ischemic cardiomyopathy [LVEF 15% 10/08/21]/severe diastolic HF - IV bumetanide 2 mg bid; resume carvedilol, Entresto, spironolactone # question of PNA - on pip/rodrigo + linezolid d#2 - folow BCx, trend PCT # hypoNa - likely due to CHF. Nephro cosultation # coagulopathy - give 1 dose vitamin K, recheck PT/INR in AM # PAD - continue DAPT + statin # DM2 - correction-dose lispro # OUD - continue methadone home dose # VTE ppx: UFH # dispo: obviously cannot go home since he cannot take care of himself. previously refused STR placement despite knowing that he could not get VNA services In my clinical judgment, the patient requires continued hospitalization for the following reasons: IV ABX, placement Quality Stroke Does the patient have a stroke diagnosis?: No VTE Prior VTE?: No VTE Risk Level:: Medical - moderate - high VTE Device Contraindication: Treatment Not Indicated VTE Drug Contraindication: N/A - Med Ordered
--- NOTE | 2022-05-28 13:42 | PM.CNNEP ---
History of Present Illness Reason for Consult Consult date: 05/28/22 Reason for consult: Hyponatremia Chief Complaint Chief complaint: Osteomyelitis, CHF, Choledocholithiasis History of Present Illness Narrative: Mr. Dominik Hawk is a 51-year-old gentleman with past medical history of insulin-dependent DM2, chronic L foot osteomyelitis, and PAD (s/p L anterior tibial + popliteal artery angioplasty 04/27/22) who presents with toe pain who was found to have maggot infestiation of toe wound. There is also concern of jaundice appearance developing over 2-days prior to admission. On my assessment the patient denies edema, orthopnea, PND, and dyspnea.? On arrival to the ED patient was found to be hemodynamically stable. Labs were significant for WBC count of 11.1, hemoglobin of 11.8, hematocrit 35.7, PT of 23, INR of 2.0, sodium of 125, chloride 92, BUN of 25, creatinine of 0.96, lactic acid of 3.5 that improved after IV fluids, total bilirubin of 11.6, direct bilirubin of 8.0, AST of 125, ALT of 242, troponin of 2845, BNP of 3486, he has chronic elevated BNP but currently above his baseline. Imaging including abdominal pelvic CT showed right colon colitis, small amount of ascites, fatty liver and question of mild cirrhotic changes, periorbital lymphadenopathy, gallstones.? No biliary duct dilatation or bile duct stone seen by CT, moderate right pleural effusion and right lower lobe pneumonia. Doppler study ultrasound of the abdomen shows cholelithiasis with gallbladder sludge with color wall thickening and mild intramural edema compatible with cholecystitis.? Venous duplex shows no DVT in the left lower extremity Foot x-ray shows findings compatible with joint sepsis and periarticular osteomyelitis of the great toe IP joint.? Interval bone destruction or erosive change. Review of Systems Review of Systems Constitutional: No Fever, No Chills ENT/Mouth: No sore throat, No Rhinorrhea, No Swallowing Difficulty Eyes: No Eye Pain, No Swelling, No Redness Cardiovascular: No Chest Pain, No SOB, No Orthopnea, No Edema Respiratory: No Cough, No Sputum, No Wheezing, No dyspnea Gastrointestinal: +Nausea, +Vomiting, No Diarrhea, No abdominal Pain, No Hematochezia, No Melena Genitourinary: No Dysuria, No Urinary Frequency, No Hematuria Musculoskeletal: +left great toe pain, left lower leg pain, No joint pain, No Myalgias Skin: No Skin Lesions, No rash Neuro: No Weakness, No Numbness, No Dizziness, No Headache Psych: No Anxiety/Panic, No Depression Heme/Lymph: No Bruising, No Lymphadenopathy Endocrine: No Polyuria, No Polydipsia Yes all other systems are reviewed and are negative COUNT INCLUDES THE [facility] Past Medical History Medical History (Updated 05/28/22 @ 13:49 by Kingston Mccain MD) Abscess or cellulitis of foot Acute on chronic anemia Acute on chronic combined systolic and diastolic congestive heart failure Acute on chronic HFrEF (heart failure with reduced ejection fraction) Acute respiratory failure with hypoxia Asthma Bipolar 1 disorder BPH (benign prostatic hyperplasia) CHF (congestive heart failure) CHF (congestive heart failure) CHF exacerbation Cholelithiasis Closed wedge compression fracture of T9 vertebra COPD (chronic obstructive pulmonary disease) Diabetes mellitus Diabetes mellitus, type 2 Elevated troponin GERD (gastroesophageal reflux disease) Hyperlipidemia Ischemic cardiomyopathy Lymphadenopathy Opiate abuse, continuous Osteomyelitis Osteomyelitis of great toe Peripheral arterial disease Peripheral neuropathy Peripheral vascular disease Substance abuse Tracheomalacia, acquired Transaminitis Family History Family History Father Chronic mental illness Hypertension Asthma Stroke Mother Asthma Diabetes Coronary artery disease Surgical History Surgical History History of amputation History of laminectomy History of transurethral resection of prostate Hx of BKA Social History Social History Household Members: Unknown / Unable to assess Housing: House Housing Other:: IN A LITTLE ROOM Do you presently have visiting nurse or other home services: No Unable to assess alcohol history related to: Refusing to respond Alcohol intake: unknown Patient Tobacco Use Status: Never used Tobacco e-Cigarette/Vaping Use: Never Used Second Hand Smoke Exposure: No Use of substances other than those prescribed or required for medical reasons: Yes Substance Use Type: Marijuana Substance Use Frequency: Daily Advance Directives: Yes Advance Directives on File: Yes Advance Directives Date on File: 11/24/20 service: No Current occupational status: unemployed and disabled Meds Allergies Allergy/AdvReac Type Severity Reaction Status Date / Time ertapenem Allergy Intermediate Hives Verified 02/21/22 18:40 vancomycin [VANCOMYCIN] Allergy Intermediate HIVES Verified 02/21/22 18:40 Chocolate Allergy Unknown Rash Verified 02/21/22 18:40 ciprofloxacin [From CIPRO] Allergy Unknown SWELLING Verified 02/21/22 18:40 hydrocortisone [Cipro HC] Allergy Unknown Unknown Verified 02/21/22 18:40 sulfamethoxazole Allergy Unknown rash Verified 02/21/22 18:40 [From BACTRIM] trimethoprim [From BACTRIM] Allergy Unknown rash Verified 02/21/22 18:40 turkey [TURKEY] Allergy Unknown RASH Verified 02/21/22 18:40 Active Medications: Current Medications Acetaminophen (Acetaminophen 325 Mg Tablet) 650 mg PO Q6H PRN PRN Reason: Pain, Mild (Pain Scale 1-3) Albuterol Sulfate (Albuterol Sulfate 90 Mcg 8 Gm Inhaler) 2 puff INHALE Q4H PRN PRN Reason: dyspnea Aspirin (Aspirin Enteric Coated 81 Mg Tablet.) 81 mg PO DAILY PENDING SALE TO [facility] Last Admin: 05/28/22 08:33 Dose: 81 mg Atorvastatin Calcium (Atorvastatin Calcium 20 Mg Tablet) 20 mg PO BEDTIME PENDING SALE TO [facility] Bumetanide (Bumetanide 1 Mg/4 Ml Vial) 2 mg IVPUSH BID@0900,1700 PENDING SALE TO [facility]; Protocol Carvedilol (Carvedilol 6.25 Mg Tablet) 6.25 mg PO BID PENDING SALE TO [facility]; Protocol Clopidogrel Bisulfate (Clopidogrel Bisulfate 75 Mg Tablet) 75 mg PO DAILY PENDING SALE TO [facility] Docusate Sodium (Docusate Sodium 100 Mg Capsule) 100 mg PO DAILY PRN PRN Reason: Constipation Famotidine (Famotidine 20 Mg Tablet) 20 mg PO BID PENDING SALE TO [facility] Fluticasone Propionate (Fluticasone Propionate Nasal 16 Gm [place]) 1 spray NOSTRIL-B DAILY PRN PRN Reason: Allergy Symptoms Fluticasone/Vilanterol (Fluticasone/Vilanterol 200/25 Blst.W.Dev) 1 puff INHALE RDAILY PENDING SALE TO [facility] Last Admin: 05/28/22 09:14 Dose: Not Given Gabapentin (Gabapentin 100 Mg Capsule) 200 mg PO TID PENDING SALE TO [facility] Heparin Sodium (Porcine) (Heparin Sodium,Porcine 5,000 Unit/Ml Vial) 5,000 unit SUBCUT Q12H PENDING SALE TO [facility] Last Admin: 05/28/22 08:34 Dose: 5,000 unit Piperacillin Sod/Tazobactam (Sod 3.375 gm/ Sodium Chloride) 50 mls @ 100 mls/hr IV Q6H PENDING SALE TO [facility] Last Infusion: 05/28/22 09:10 Dose: Infused Linezolid (Zyvox/D5w) 600 mg in 300 mls @ 300 mls/hr IV Q12H PENDING SALE TO [facility] Last Admin: 05/28/22 10:12 Dose: 300 mls/hr Insulin Glargine (Insulin Glargine,Hum.Rec.Anlog 100 Unit/Ml 10 Ml Vial) 10 unit SUBCUT DAILY@1700 PENDING SALE TO [facility] Insulin Human Lispro (Insulin Lispro 100 Unit/Ml 3 Ml Vial) 5 unit SUBCUT TIDAC PENDING SALE TO [facility] Insulin Human Lispro (Insulin Lispro 100 Unit/Ml 3 Ml Vial) 0 unit SUBCUT QIDACHS PENDING SALE TO [facility]; Protocol Lidocaine (Lidocaine 4 % Patch Adh..Patch) 1 patch TRANSDERMA DAILY PENDING SALE TO [facility] Loratadine (Loratadine 10 Mg Tablet) 10 mg PO DAILY PENDING SALE TO [facility] Methadone HCl (Methadone Hcl 20 Mg/2 Ml Oral.Conc) 50 mg PO DAILY PENDING SALE TO [facility] Last Admin: 05/28/22 10:24 Dose: 50 mg Montelukast Sodium (Montelukast Sodium 10 Mg Tablet) 10 mg PO BEDTIME PENDING SALE TO [facility] Ondansetron HCl (Ondansetron Hcl 4 Mg/2 Ml Vial) 4 mg IVPUSH Q8H PRN PRN Reason: Nausea and Vomiting Pharmacy Consult (Consult Rx Perform Med Rec) 1 each MISCELLANE ONCE PRN PRN Reason: Consult order Sacubitril/Valsartan (Sacubitril/Valsartan 1 Tab Tablet) 1 tab PO BID PENDING SALE TO [facility]; Protocol Sodium Chloride (0.9 % Sodium Chloride Flush 3 Ml Syringe) 3 ml IVFLUSH QSHIFT PENDING SALE TO [facility] Last Admin: 05/28/22 08:33 Dose: 3 ml Spironolactone (Spironolactone 25 Mg Tablet) 12.5 mg PO DAILY PENDING SALE TO [facility]; Protocol Tamsulosin HCl (Tamsulosin Hcl 0.4 Mg Capsule) 0.4 mg PO DAILY@1700 PENDING SALE TO [facility] Zinc Sulfate (Zinc Sulfate 220 Mg Capsule) 50 mg PO DAILY PENDING SALE TO [facility] Home Medications Medication Instructions Recorded Confirmed Last Taken Type albuterol sulfate 90 mcg/actuation 2 puff inhalation Q4-6H PRN dyspnea 05/28/22 05/28/22 Unknown History aerosol inhaler (ProAir HFA) aspirin 81 mg tablet,delayed 1 tab PO QAM 05/28/22 05/28/22 Unknown History release atorvastatin 20 mg tablet 1 tab PO BEDTIME 05/28/22 05/28/22 Unknown History bumetanide 2 mg tablet 1 tab PO BID 05/28/22 05/28/22 Unknown History carvedilol 6.25 mg tablet 6.25 mg PO BID 05/28/22 05/28/22 Unknown History cetirizine 10 mg tablet 1 tab PO DAILY 05/28/22 05/28/22 Unknown History clopidogrel 75 mg tablet 1 tab PO DAILY 05/28/22 05/28/22 Unknown History famotidine 20 mg tablet 20 mg PO BID 05/28/22 05/28/22 Unknown History fluticasone 500 mcg-salmeterol 50 1 puff PO BID 05/28/22 05/28/22 Unknown History mcg/dose blistr powdr for inhalation (Advair Diskus) fluticasone propionate 50 1 - 2 spray intranasal DAILY PRN 05/28/22 05/28/22 Unknown History mcg/actuation nasal Allergy Symptoms spray,suspension gabapentin 100 mg capsule 2 cap PO TID 05/28/22 05/28/22 Unknown History insulin aspart U-100 100 unit/mL 5 unit subcut TID 05/28/22 05/28/22 Unknown History (3 mL) subcutaneous pen (Novolog Flexpen U-100 Insulin aspart) lidocaine 5 % topical patch 1 patch topical DAILY 05/28/22 05/28/22 Unknown History (Lidoderm) methadone 10 mg/mL oral concentrate 52 mg PO DAILY 05/28/22 05/28/22 Unknown History montelukast 10 mg tablet 1 tab PO QPM 05/28/22 05/28/22 Unknown History sacubitril 24 mg-valsartan 26 mg 1 tab PO BID 05/28/22 05/28/22 Unknown History tablet (Entresto) spironolactone 25 mg tablet 12.5 mg PO DAILY 05/28/22 05/28/22 Unknown History tamsulosin 0.4 mg capsule 1 cap PO QPM 05/28/22 05/28/22 Unknown History zinc sulfate 50 mg zinc (220 mg) 1 cap PO DAILY 05/28/22 05/28/22 Unknown History capsule Physical Exam Vital Signs: Last Vital Signs Temp 98.2 F 05/27/22 18:29 Pulse 64 05/28/22 08:39 Resp 20 05/28/22 08:39 BP 124/79 05/28/22 08:39 Pulse Ox 97 05/28/22 08:39 O2 Del Method 05/28/22 08:39 BMI result Body Mass Index 22.4 Const General: cooperative and no acute distress Orientation/consciousness: patient oriented x3 Eyes General: appearance normal, both eyes and all related structures Resp Effort & Inspection: normal respiratory effort Auscultation: clear to auscultation bilaterally Cardio Rate: regular rate Rhythm: regular rhythm GI Palpation (GI): Soft to palpation Auscultation: normal bowel sounds Neuro General: patient oriented x3 Cognition (Neuro): normal cognition Results Lab Results Result Diagrams: 05/28/22 05:39 05/28/22 05:39 Lab results: Chemistry 05/27/22 05/28/22 13:58 05:39 Sodium 125 L 126 L Potassium 4.3 4.0 Carbon Dioxide 22 25 BUN 32 H 25 H Creatinine 1.25 0.96 Calcium 8.8 8.6 Hematology 05/27/22 05/28/22 13:58 05:39 WBC 13.9 H 11.1 H Hgb 12.9 L 11.8 L Plt Count 194 D 142 L D Urinalysis 05/27/22 14:09 Urine Color DK YELLOW Urine Appearance CLEAR Urine pH 6.[address] [place] 1.020 Urine Protein 1+ H Urine Glucose (UA) 100 H Urine Ketones NEG Urine Blood TRACE Urine Nitrite NEG Ur Leukocyte Esterase NEG Urine RBC 0-2 Urine WBC 0-2 Ur Squamous Epith Cells 1+ Assessment and Plan (1) Infestation by maggots: Status: Acute (2) Hyponatremia: Status: Acute Plan Mr. Dominik Hawk is a 51-year-old gentleman with past medical history of insulin-dependent DM2, chronic L foot osteomyelitis, and PAD (s/p L anterior tibial + popliteal artery angioplasty 04/27/22) who presents with toe pain who was found to have maggot infestiation of toe wound. There is also concern of jaundice appearance developing over 2-days prior to admission. Hospital course complicated by cholecysitis and hyponatremia. 1. Hyponatremia Hypervolemic on exam Will need Sosm and Isidra and Uosm to complete work up However given possible cirrhosis and hypervolemia on exam, I suspect an overload mediated hyponatremia. It's unclear if patient is taking in good nutrition, he could also have a hypotonic intake hyponatremia. Plan: - fluid restriction 1L/day - OK for Bumex 2mg IV BID this will induce aquaresis for sure - Will give urea 15mg BID for short time to help with osmolar loading - Urea exterminator is not indicated in cirrhosis, we will use it for short term - Isidra and Uosm ordered - Sosm ordered - check lytes BID MD BETTIE Noel I am on [place] [facility] Procedures Date of Service Date of Service: 05/28/22
[2022-05-28 14:02] VITALS: BP 133/74; PULSE 66; RESP 16; O2SAT 99
[2022-05-28] MEDS: Gabapentin 100 MG CAPSULE 200 MG PO ×2 (14:49→22:51)
[2022-05-28 14:50] VITALS: BP 122/80; PULSE 64
[2022-05-28 15:19] LABS: Amphetamine Screen Urine Not Detected (Not Detect); Barbiturates, Urine Not Detected (Not Detect); Benzodiazepines Screen Urine Not Detected (Not Detect); Cannabinoid Screen Urine POSITIVE (Not Detect); Cocaine Screen Urine Not Detected (Not Detect); Fentanyl, urine Not Detected (Not Detect); Opiate Screen Urine Not Detected (Not Detect); Phencyclidine Screen Urine Not Detected (Not Detect)
[2022-05-28 15:20] LABS: Sodium Urine Random < 20.0 mmol/L
[2022-05-28] MEDS: Urea 15 GM POWDER PO ×2 (15:29→22:52)
[2022-05-28 15:40] LABS: Osmolality Urine 394 mosm/kg (373-1093)
[2022-05-28 15:41] LABS: Osmolality, Serum 277 mosm/kg (281-305)
--- NOTE | 2022-05-28 16:13 | P.CONCA_ITS ---
History of Present Illness History of Present Illness Date of Service: 05/28/22 Requesting physician: Juan Delcid Consult reason: other (Elevated BNP) Chief complaint: Osteomyelitis, CHF, Choledocholithiasis Narrative: I was consulted to see Dominik in cardiology consultation who was brought to the hospital by ambulance after the friend call him. Patient is a poor historian does not know why she is here on questioning whether he is here because of foot pain he says yes. He has maggots in his left foot and is having issues with lactic acidosis, hyponatremia, elevated bilirubin, elevated troponins as well as BNP. Patient appears to have infection of his left great toe with maggots and overall findings suggestive of osteomyelitis and overall possibly suggestive of sepsis. Cardiology consult was sought because of elevated BNP as well as elevated troponins. Patient denies any shortness of breath or chest discomfort at this point time. He has prior history of significant ischemic cardiomyopathy with LVEF of 15%. He said he has not been getting care at home with dressing and he was not taking care of his wound. He also has probably not getting his cardiac meds as prescribed in the past. He is a very poor historian. Review of Systems Review of Systems: Yes Unobtainable due to mental condition PMFSH Past Medical History Medical History Abscess or cellulitis of foot Acute on chronic anemia Acute on chronic combined systolic and diastolic congestive heart failure Acute on chronic HFrEF (heart failure with reduced ejection fraction) Acute respiratory failure with hypoxia Asthma Bipolar 1 disorder BPH (benign prostatic hyperplasia) CHF (congestive heart failure) CHF (congestive heart failure) CHF exacerbation Cholelithiasis Closed wedge compression fracture of T9 vertebra COPD (chronic obstructive pulmonary disease) Diabetes mellitus Diabetes mellitus, type 2 Elevated troponin GERD (gastroesophageal reflux disease) Hyperlipidemia Ischemic cardiomyopathy Lymphadenopathy Opiate abuse, continuous Osteomyelitis Osteomyelitis of great toe Peripheral arterial disease Peripheral neuropathy Peripheral vascular disease Substance abuse Tracheomalacia, acquired Transaminitis Family History Family History Father Chronic mental illness Hypertension Asthma Stroke Mother Asthma Diabetes Coronary artery disease Surgical History Surgical History History of amputation History of laminectomy History of transurethral resection of prostate Hx of BKA Social History Social History Household Members: Unknown / Unable to assess Housing: House Housing Other:: IN A LITTLE ROOM Do you presently have visiting nurse or other home services: No Unable to assess alcohol history related to: Refusing to respond Alcohol intake: unknown Patient Tobacco Use Status: Never used Tobacco e-Cigarette/Vaping Use: Never Used Second Hand Smoke Exposure: No Use of substances other than those prescribed or required for medical reasons: Yes Substance Use Type: Marijuana Substance Use Frequency: Daily Advance Directives: Yes Advance Directives on File: Yes Advance Directives Date on File: 11/24/20 service: No Current occupational status: unemployed and disabled Meds Allergies Allergy/AdvReac Type Severity Reaction Status Date / Time ertapenem Allergy Intermediate Hives Verified 02/21/22 18:40 vancomycin [VANCOMYCIN] Allergy Intermediate HIVES Verified 02/21/22 18:40 Chocolate Allergy Unknown Rash Verified 02/21/22 18:40 ciprofloxacin [From CIPRO] Allergy Unknown SWELLING Verified 02/21/22 18:40 hydrocortisone [Cipro HC] Allergy Unknown Unknown Verified 02/21/22 18:40 sulfamethoxazole Allergy Unknown rash Verified 02/21/22 18:40 [From BACTRIM] trimethoprim [From BACTRIM] Allergy Unknown rash Verified 02/21/22 18:40 turkey [TURKEY] Allergy Unknown RASH Verified 02/21/22 18:40 Active Medications: Current Medications Acetaminophen (Acetaminophen 325 Mg Tablet) 650 mg PO Q6H PRN PRN Reason: Pain, Mild (Pain Scale 1-3) Albuterol Sulfate (Albuterol Sulfate 90 Mcg 8 Gm Inhaler) 2 puff INHALE Q4H PRN PRN Reason: dyspnea Aspirin (Aspirin Enteric Coated 81 Mg Tablet.) 81 mg PO DAILY [facility] Last Admin: 05/28/22 08:33 Dose: 81 mg Atorvastatin Calcium (Atorvastatin Calcium 20 Mg Tablet) 20 mg PO BEDTIME [facility] Bumetanide (Bumetanide 1 Mg/4 Ml Vial) 2 mg IVPUSH BID@0900,1700 [facility]; Protocol Carvedilol (Carvedilol 6.25 Mg Tablet) 6.25 mg PO BID [facility]; Protocol Clopidogrel Bisulfate (Clopidogrel Bisulfate 75 Mg Tablet) 75 mg PO DAILY [facility] Docusate Sodium (Docusate Sodium 100 Mg Capsule) 100 mg PO DAILY PRN PRN Reason: Constipation Famotidine (Famotidine 20 Mg Tablet) 20 mg PO BID [facility] Fluticasone Propionate (Fluticasone Propionate Nasal 16 Gm [place]) 1 spray NOSTRIL-B DAILY PRN PRN Reason: Allergy Symptoms Fluticasone/Vilanterol (Fluticasone/Vilanterol 200/25 Blst.W.Dev) 1 puff INHALE RDAILY [facility] Last Admin: 05/28/22 09:14 Dose: Not Given Gabapentin (Gabapentin 100 Mg Capsule) 200 mg PO TID [facility] Last Admin: 05/28/22 14:49 Dose: 200 mg Heparin Sodium (Porcine) (Heparin Sodium,Porcine 5,000 Unit/Ml Vial) 5,000 unit SUBCUT Q12H [facility] Last Admin: 05/28/22 08:34 Dose: 5,000 unit Piperacillin Sod/Tazobactam (Sod 3.375 gm/ Sodium Chloride) 50 mls @ 100 mls/hr IV Q6H [facility] Last Admin: 05/28/22 14:49 Dose: 50 mls/hr Linezolid (Zyvox/D5w) 600 mg in 300 mls @ 300 mls/hr IV Q12H [facility] Last Infusion: 05/28/22 14:57 Dose: Infused Insulin Glargine (Insulin Glargine,Hum.Rec.Anlog 100 Unit/Ml 10 Ml Vial) 10 unit SUBCUT DAILY@1700 [facility] Insulin Human Lispro (Insulin Lispro 100 Unit/Ml 3 Ml Vial) 5 unit SUBCUT TIDAC [facility] Last Admin: 05/28/22 14:58 Dose: Not Given Insulin Human Lispro (Insulin Lispro 100 Unit/Ml 3 Ml Vial) 0 unit SUBCUT Q IDACHS [facility]; Protocol Last Admin: 05/28/22 14:58 Dose: Not Given Lidocaine (Lidocaine 4 % Patch Adh..Patch) 1 patch TRANSDERMA DAILY [facility] Loratadine (Loratadine 10 Mg Tablet) 10 mg PO DAILY [facility] Methadone HCl (Methadone Hcl 20 Mg/2 Ml Oral.Conc) 50 mg PO DAILY [facility] Last Admin: 05/28/22 10:24 Dose: 50 mg Montelukast Sodium (Montelukast Sodium 10 Mg Tablet) 10 mg PO BEDTIME [facility] Ondansetron HCl (Ondansetron Hcl 4 Mg/2 Ml Vial) 4 mg IVPUSH Q8H PRN PRN Reason: Nausea and Vomiting Pharmacy Consult (Consult Rx Perform Med Rec) 1 each MISCELLANE ONCE PRN PRN Reason: Consult order Sacubitril/Valsartan (Sacubitril/Valsartan 1 Tab Tablet) 1 tab PO BID [facility]; Protocol Sodium Chloride (0.9 % Sodium Chloride Flush 3 Ml Syringe) 3 ml IVFLUSH QSHIFT [facility] Last Admin: 05/28/22 15:29 Dose: 3 ml Spironolactone (Spironolactone 25 Mg Tablet) 12.5 mg PO DAILY [facility]; Protocol Tamsulosin HCl (Tamsulosin Hcl 0.4 Mg Capsule) 0.4 mg PO DAILY@1700 [facility] Urea (Urea 15 Gm Powder) 15 gm PO BID [facility] Zinc Sulfate (Zinc Sulfate 220 Mg Capsule) 50 mg PO DAILY [facility] Home Medications Medication Instructions Recorded Confirmed Last Taken Type albuterol sulfate 90 mcg/actuation 2 puff inhalation Q4-6H PRN dyspnea 05/28/22 05/28/22 Unknown History aerosol inhaler (ProAir HFA) aspirin 81 mg tablet,delayed 1 tab PO QAM 05/28/22 05/28/22 Unknown History release atorvastatin 20 mg tablet 1 tab PO BEDTIME 05/28/22 05/28/22 Unknown History bumetanide 2 mg tablet 1 tab PO BID 05/28/22 05/28/22 Unknown History carvedilol 6.25 mg tablet 6.25 mg PO BID 05/28/22 05/28/22 Unknown History cetirizine 10 mg tablet 1 tab PO DAILY 05/28/22 05/28/22 Unknown History clopidogrel 75 mg tablet 1 tab PO DAILY 05/28/22 05/28/22 Unknown History famotidine 20 mg tablet 20 mg PO BID 05/28/22 05/28/22 Unknown History fluticasone 500 mcg-salmeterol 50 1 puff PO BID 05/28/22 05/28/22 Unknown History mcg/dose blistr powdr for inhalation (Advair Diskus) fluticasone propionate 50 1 - 2 spray intranasal DAILY PRN 05/28/22 05/28/22 Unknown History mcg/actuation nasal Allergy Symptoms spray,suspension gabapentin 100 mg capsule 2 cap PO TID 05/28/22 05/28/22 Unknown History insulin aspart U-100 100 unit/mL 5 unit subcut TID 05/28/22 05/28/22 Unknown History (3 mL) subcutaneous pen (Novolog Flexpen U-100 Insulin aspart) lidocaine 5 % topical patch 1 patch topical DAILY 05/28/22 05/28/22 Unknown History (Lidoderm) methadone 10 mg/mL oral concentrate 52 mg PO DAILY 05/28/22 05/28/22 Unknown History montelukast 10 mg tablet 1 tab PO QPM 05/28/22 05/28/22 Unknown History sacubitril 24 mg-valsartan 26 mg 1 tab PO BID 05/28/22 05/28/22 Unknown History tablet (Entresto) spironolactone 25 mg tablet 12.5 mg PO DAILY 05/28/22 05/28/22 Unknown History tamsulosin 0.4 mg capsule 1 cap PO QPM 05/28/22 05/28/22 Unknown History zinc sulfate 50 mg zinc (220 mg) 1 cap PO DAILY 05/28/22 05/28/22 Unknown History capsule Physical Exam Vital Signs: Vital Signs: Last Vital Signs Temp 98.2 F 05/27/22 18:29 Pulse 64 05/28/22 14:50 Resp 16 05/28/22 14:02 BP 122/80 05/28/22 14:50 Pulse Ox 99 05/28/22 14:02 O2 Del Method 05/28/22 14:02 BMI result Body Mass Index 22.4 Const: General: cooperative, comfortable, no acute distress, alert, awake, ill appearing and other (Jaundiced) Nutritional Appearance: malnourished Orientation/consciousness: patient oriented x3 HEENT: Head: Yes normocephalic and Yes atraumatic Neck: Neck: Yes trachea midline, Yes supple and Yes no JVD Resp: Effort & Inspection: normal respiratory effort Auscultation: clear to auscultation bilaterally and no rales Cardio: Palpation: abnormal PMI displaced PMI Rate: regular rate Rhythm: regular rhythm Heart sounds: S1 normal heart sound present, S2 normal heart sound present, no click, no gallops, no murmurs and no rubs GI: Auscultation: normal bowel sounds Neuro: General: patient oriented x3 and no focal motor deficits Objective Labs and Meds Result diagrams: 05/28/22 05:39 05/28/22 05:39 Lab results: Laboratory Results - last 24 hr 05/27/22 05/27/22 05/28/22 21:20 21:20 00:12 WBC RBC Hgb Hct MCV MCH MCHC RDW Plt Count MPV Immature Gran % (Auto) Neut % (Auto) Lymph % (Auto) [place] % (Auto) Eos % (Auto) Baso % (Auto) Lymph # (Auto) [place] # (Auto) Eos # (Auto) Baso # (Auto) Abs Immat Gran (auto) Absolute Neuts (auto) Absolute Nucleated RBC Nucleated RBC % (auto) Sodium Potassium Chloride Carbon Dioxide Anion Gap BUN Creatinine Estim Creat Clear Calc Estimated GFR POC Glucose Random Glucose Osmolality Lactic Acid F/U @ 2Hr 2.2 H* Lactic Acid F/U @ 4Hr 2.2 H* Calcium Total Bilirubin AST ALT Alkaline Phosphatase Troponin I High Sens 2775.4 H* C-Reactive Protein Total Protein Albumin Procalcitonin Urine Osmolality Ur Random Sodium Urine Creatinine Urine Opiates Screen Urine Fentanyl Screen Ur Barbiturates Screen Ur Phencyclidine Scrn Ur Amphetamines Screen U Benzodiazepines Scrn Urine Cocaine Screen U Marijuana (THC) Screen 05/28/22 05/28/22 05/28/22 05:39 05:39 05:39 WBC 11.1 H RBC 4.13 L Hgb 11.8 L Hct 35.7 L MCV 86.4 MCH 28.6 MCHC 33.1 RDW 20.4 H Plt Count 142 L D MPV 9.9 Immature Gran % (Auto) 0.5 H Neut % (Auto) 82.2 H Lymph % (Auto) 7.0 L [place] % (Auto) 9.8 Eos % (Auto) 0.4 Baso % (Auto) 0.1 Lymph # (Auto) 0.8 L [place] # (Auto) 1.1 Eos # (Auto) 0.0 Baso # (Auto) 0.0 Abs Immat Gran (auto) 0.06 H Absolute Neuts (auto) 9.1 H Absolute Nucleated RBC 0.000 Nucleated RBC % (auto) 0.0 Sodium 126 L Potassium 4.0 Chloride 92 L Carbon Dioxide 25 Anion Gap 13 BUN 25 H Creatinine 0.96 Estim Creat Clear Calc 79.3 Estimated GFR > 60 POC Glucose Random Glucose 188 H Osmolality 280 L Lactic Acid F/U @ 2Hr Lactic Acid F/U @ 4Hr Calcium 8.6 Total Bilirubin 10.1 H AST 86 H ALT 172 H Alkaline Phosphatase 97 Troponin I High Sens C-Reactive Protein 5.73 H Total Protein 6.4 L Albumin 2.9 L Procalcitonin Urine Osmolality Ur Random Sodium Urine Creatinine Urine Opiates Screen Urine Fentanyl Screen Ur Barbiturates Screen Ur Phencyclidine Scrn Ur Amphetamines Screen U Benzodiazepines Scrn Urine Cocaine Screen U Marijuana (THC) Screen 05/28/22 05/28/22 05/28/22 05:39 07:35 14:56 WBC RBC Hgb Hct MCV MCH MCHC RDW Plt Count MPV Immature Gran % (Auto) Neut % (Auto) Lymph % (Auto) [place] % (Auto) Eos % (Auto) Baso % (Auto) Lymph # (Auto) [place] # (Auto) Eos # (Auto) Baso # (Auto) Abs Immat Gran (auto) Absolute Neuts (auto) Absolute Nucleated RBC Nucleated RBC % (auto) Sodium Potassium Chloride Carbon Dioxide Anion Gap BUN Creatinine Estim Creat Clear Calc Estimated GFR POC Glucose 161 H Random Glucose Osmolality Lactic Acid F/U @ 2Hr Lactic Acid F/U @ 4Hr Calcium Total Bilirubin AST ALT Alkaline Phosphatase Troponin I High Sens C-Reactive Protein Total Protein Albumin Procalcitonin 0.27 Urine Osmolality Ur Random Sodium < 20.0 Urine Creatinine Urine Opiates Screen Urine Fentanyl Screen Ur Barbiturates Screen Ur Phencyclidine Scrn Ur Amphetamines Screen U Benzodiazepines Scrn Urine Cocaine Screen U Marijuana (THC) Screen 05/28/22 05/28/22 05/28/22 14:56 14:56 14:56 WBC RBC Hgb Hct MCV MCH MCHC RDW Plt Count MPV Immature Gran % (Auto) Neut % (Auto) Lymph % (Auto) [place] % (Auto) Eos % (Auto) Baso % (Auto) Lymph # (Auto) [place] # (Auto) Eos # (Auto) Baso # (Auto) Abs Immat Gran (auto) Absolute Neuts (auto) Absolute Nucleated RBC Nucleated RBC % (auto) Sodium Potassium Chloride Carbon Dioxide Anion Gap BUN Creatinine Estim Creat Clear Calc Estimated GFR POC Glucose Random Glucose Osmolality Lactic Acid F/U @ 2Hr Lactic Acid F/U @ 4Hr Calcium Total Bilirubin AST ALT Alkaline Phosphatase Troponin I High Sens C-Reactive Protein Total Protein Albumin Procalcitonin Urine Osmolality 394 Ur Random Sodium Urine Creatinine 52.40 Urine Opiates Screen Not Detected Urine Fentanyl Screen Not Detected Ur Barbiturates Screen Not Detected Ur Phencyclidine Scrn Not Detected Ur Amphetamines Screen Not Detected U Benzodiazepines Scrn Not Detected Urine Cocaine Screen Not Detected U Marijuana (THC) Screen POSITIVE H 05/28/22 15:18 WBC RBC Hgb Hct MCV MCH MCHC RDW Plt Count MPV Immature Gran % (Auto) Neut % (Auto) Lymph % (Auto) [place] % (Auto) Eos % (Auto) Baso % (Auto) Lymph # (Auto) [place] # (Auto) Eos # (Auto) Baso # (Auto) Abs Immat Gran (auto) Absolute Neuts (auto) Absolute Nucleated RBC Nucleated RBC % (auto) Sodium Potassium Chloride Carbon Dioxide Anion Gap BUN Creatinine Estim Creat Clear Calc Estimated GFR POC Glucose Random Glucose Osmolality 277 L Lactic Acid F/U @ 2Hr Lactic Acid F/U @ 4Hr Calcium Total Bilirubin AST ALT Alkaline Phosphatase Troponin I High Sens C-Reactive Protein Total Protein Albumin Procalcitonin Urine Osmolality Ur Random Sodium Urine Creatinine Urine Opiates Screen Urine Fentanyl Screen Ur Barbiturates Screen Ur Phencyclidine Scrn Ur Amphetamines Screen U Benzodiazepines Scrn Urine Cocaine Screen U Marijuana (THC) Screen Imaging Radiologist's impression: Impressions Abdomen Ultrasound 05/27/22 17:15 IMPRESSION: 1. Cholelithiasis and gallbladder sludge with color wall thickening and mild intramural edema compatible with cholecystitis. Correlate clinically with signs or symptoms of acute cholecystitis. 2. No biliary ductal dilation. 3. Normal homogeneous hepatic echogenicity was slightly lobulated/nodular liver surface contour, which may be due to underlying liver fibrosis. No liver lesion. 4. Patent portal vein with normal directional flow. Hepatic veins and splenic vein also patent. 5. Right pleural effusion and small amount of perihepatic ascites. 6. Small hypoechoic nodule adjacent to the pancreatic head, likely a small peripancreatic lymph node. Doppler Study Ultrasound 05/27/22 17:15 IMPRESSION: 1. Cholelithiasis and gallbladder sludge with color wall thickening and mild intramural edema compatible with cholecystitis. Correlate clinically with signs or symptoms of acute cholecystitis. 2. No biliary ductal dilation. 3. Normal homogeneous hepatic echogenicity was slightly lobulated/nodular liver surface contour, which may be due to underlying liver fibrosis. No liver lesion. 4. Patent portal vein with normal directional flow. Hepatic veins and splenic vein also patent. 5. Right pleural effusion and small amount of perihepatic ascites. 6. Small hypoechoic nodule adjacent to the pancreatic head, likely a small peripancreatic lymph node. Chest X-Ray 05/27/22 17:46 IMPRESSION: Congestive heart failure. Opacification over the right lung base probably pleural effusion, cannot rule out underlying infiltrate and/or atelectasis. Chest X-Ray 05/27/22 19:48 IMPRESSION: Right jugular line projects tip projects over SVC. No pneumothorax. Stable enlargement of the cardiac silhouette. Right pleural effusion and question right base pneumonia. Abdomen/Pelvis CT 05/27/22 20:20 IMPRESSION: Right colon colitis. Small amount of ascites. Fatty liver and question mild cirrhotic changes. Stable periportal lymphadenopathy. Gallstones. No biliary duct dilatation or bile duct stone seen by CT. Moderate right pleural effusion and right lower lobe pneumonia. Fleischner guidelines were followed. Assessment and Plan (1) Acute on chronic HFrEF (heart failure with reduced ejection fraction): Status: Acute Patient does not appear to be in overt in heart failure but there is further elevated BNP in the setting of severe noncardiac illness with appears to be sepsis and possibly cholecystitis with marked jaundice. Patient probably also has not taking his medications at home and is noncompliant question due to poor social support. He also does not want to go to a [place] [facility] [place] facility in the past has been told multiple times but seems like he is not taking care of himself at home either. His heart failure medications have been restarted. Continue carvedilol, Entresto, spironolactone. Also agree with IV Bumex although it appears that he requires aggressive care for his noncardiac condition with sepsis and infection and possible cholecystitis. Strict intake and output chart needs to be pursued. Continue to trend BMP and BNP. His BNP trends more to patel his baseline level would switch him to oral bumetanide therapy. Importance of compliance with medication was discussed. Discussed about possible penitentiary placement although he is hesitant about it. Will continue to follow with you Procedures Date of Service Date of Service: 05/28/22
[2022-05-28] MEDS: Bumetanide 1 MG/4 ML VIAL 2 MG IVPUSH (16:26)
[2022-05-28] MEDS: Tamsulosin HCL 0.4 MG CAPSULE PO (16:26)
[2022-05-28 16:42] LABS: Glucose, Whole Blood 116 mg/dL (60-115)
--- NOTE | 2022-05-28 17:12 | PC.NURSE ---
Pt off unit to [facility]
--- NOTE | 2022-05-28 17:54 | P.CNGI_ITS ---
History of Present Illness Data of Consult Service Date: 05/28/22 Requesting physician: Juan Delcid Primary Care Provider: Unknown Physician HPI Reason for consult: abn LFT 51-year-old male with a past medical history of DM, chronic osteomyelitis and Right BKA, CHF who I am seeing for assessment for abn LFT> Patients main complaint on admission was severe left toe pain without radiation, which has found to be infested with maggots. He denied abdominal pain, chest pain, SOB, diarrhea, constipation, or melena/rectal bleeding He has been receiving care for his toe whihc has non healing ulcer and has had angioplasty of left popliteal artery 04/2022. Labs: WBC count of 11.1, hemoglobin of 11.8, hematocrit 35.7, PT of 23, INR of 2.0, sodium of 125, chloride 92, BUN of 25, creatinine of 0.96, lactic acid of 3.5 that improved after IV fluids, total bilirubin of 11.6, direct bilirubin of 8.0, AST of 125, ALT of 242, troponin of 2845, BNP of 3486, Imaging: abdominal pelvic CT: right colon colitis, small amount of ascites, fatty liver and question of mild cirrhotic changes, lymphadenopathy, gallstones.? No biliary duct dilatation or bile duct stone seen by CT, moderate right pleural effusion and right lower lobe pneumonia. Doppler study ultrasound: cholelithiasis with gallbladder sludge with color wall thickening and mild intramural edema compatible with cholecystitis.? Venous duplex shows no DVT in the left lower extremity Foot x-ray shows findings compatible with joint sepsis and periarticular osteomyelitis of the great toe IP joint.? Interval bone destruction or erosive change. Review of Systems Review of Systems: Constitutional : No Weight loss, No Fever, No Chills ENT/Mouth : No sore throat, No Rhinorrhea Eyes: No Swelling, No Redness Cardiovascular : No Chest Pain, No SOB, No Edema Respiratory : No Cough, No Sputum, No Wheezing Gastrointestinal : see HPI Genitourinary : NO Dysuria, No Urinary Frequency, No Hematuria, No Urgency Musculoskeletal : No joint pain, No Myalgias, No Joint Swelling Skin : ulcer of toe Neuro : No Weakness, No Numbness, No Dizziness, No Headache Psych : No Anxiety/Panic, No Depression Heme/Lymph: No Bruising, No Lymphadenopathy Endocrine : No Polyuria, No Polydipsia All other systems reviewed and are negative. PMFSH Past Medical History Medical History Abscess or cellulitis of foot Acute on chronic anemia Acute on chronic combined systolic and diastolic congestive heart failure Acute on chronic HFrEF (heart failure with reduced ejection fraction) Acute respiratory failure with hypoxia Asthma Bipolar 1 disorder BPH (benign prostatic hyperplasia) CHF (congestive heart failure) CHF (congestive heart failure) CHF exacerbation Cholelithiasis Closed wedge compression fracture of T9 vertebra COPD (chronic obstructive pulmonary disease) Diabetes mellitus Diabetes mellitus, type 2 Elevated troponin GERD (gastroesophageal reflux disease) Hyperlipidemia Ischemic cardiomyopathy Lymphadenopathy Opiate abuse, continuous Osteomyelitis Osteomyelitis of great toe Peripheral arterial disease Peripheral neuropathy Peripheral vascular disease Substance abuse Tracheomalacia, acquired Transaminitis Family History Family History Father Chronic mental illness Hypertension Asthma Stroke Mother Asthma Diabetes Coronary artery disease Surgical History Surgical History History of amputation History of laminectomy History of transurethral resection of prostate Hx of BKA Social History Social History Household Members: Unknown / Unable to assess Housing: House Housing Other:: IN A LITTLE ROOM Do you presently have visiting nurse or other home services: No Unable to assess alcohol history related to: Refusing to respond Alcohol intake: unknown Patient Tobacco Use Status: Never used Tobacco e-Cigarette/Vaping Use: Never Used Second Hand Smoke Exposure: No Use of substances other than those prescribed or required for medical reasons: Yes Substance Use Type: Marijuana Substance Use Frequency: Daily Advance Directives: Yes Advance Directives on File: Yes Advance Directives Date on File: 11/24/20 service: No Current occupational status: unemployed and disabled Meds Allergies Allergy/AdvReac Type Severity Reaction Status Date / Time ertapenem Allergy Intermediate Hives Verified 02/21/22 18:40 vancomycin [VANCOMYCIN] Allergy Intermediate HIVES Verified 02/21/22 18:40 Chocolate Allergy Unknown Rash Verified 02/21/22 18:40 ciprofloxacin [From CIPRO] Allergy Unknown SWELLING Verified 02/21/22 18:40 hydrocortisone [Cipro HC] Allergy Unknown Unknown Verified 02/21/22 18:40 sulfamethoxazole Allergy Unknown rash Verified 02/21/22 18:40 [From BACTRIM] trimethoprim [From BACTRIM] Allergy Unknown rash Verified 02/21/22 18:40 turkey [TURKEY] Allergy Unknown RASH Verified 02/21/22 18:40 Active Medications: Current Medications Acetaminophen (Acetaminophen 325 Mg Tablet) 650 mg PO Q6H PRN PRN Reason: Pain, Mild (Pain Scale 1-3) Albuterol Sulfate (Albuterol Sulfate 90 Mcg 8 Gm Inhaler) 2 puff INHALE Q4H PRN PRN Reason: dyspnea Aspirin (Aspirin Enteric Coated 81 Mg Tablet.Dr) 81 mg PO DAILY [facility] Last Admin: 05/28/22 08:33 Dose: 81 mg Atorvastatin Calcium (Atorvastatin Calcium 20 Mg Tablet) 20 mg PO BEDTIME [facility] Bumetanide (Bumetanide 1 Mg/4 Ml Vial) 2 mg IVPUSH BID@0900,1700 [facility]; Protocol Last Admin: 05/28/22 16:26 Dose: 2 mg Carvedilol (Carvedilol 6.25 Mg Tablet) 6.25 mg PO BID [facility]; Protocol Clopidogrel Bisulfate (Clopidogrel Bisulfate 75 Mg Tablet) 75 mg PO DAILY [facility] Docusate Sodium (Docusate Sodium 100 Mg Capsule) 100 mg PO DAILY PRN PRN Reason: Constipation Famotidine (Famotidine 20 Mg Tablet) 20 mg PO BID [facility] Fluticasone Propionate (Fluticasone Propionate Nasal 16 Gm [place]) 1 spray NOSTRIL-B DAILY PRN PRN Reason: Allergy Symptoms Fluticasone/Vilanterol (Fluticasone/Vilanterol 200/25 Blst.W.Dev) 1 puff INHALE RDAILY [facility] Last Admin: 05/28/22 09:14 Dose: Not Given Gabapentin (Gabapentin 100 Mg Capsule) 200 mg PO TID [facility] Last Admin: 05/28/22 14:49 Dose: 200 mg Heparin Sodium (Porcine) (Heparin Sodium,Porcine 5,000 Unit/Ml Vial) 5,000 unit SUBCUT Q12H [facility] Last Admin: 05/28/22 08:34 Dose: 5,000 unit Piperacillin Sod/Tazobactam (Sod 3.375 gm/ Sodium Chloride) 50 mls @ 100 mls/hr IV Q6H [facility] Last Infusion: 05/28/22 15:30 Dose: Infused Linezolid (Zyvox/D5w) 600 mg in 300 mls @ 300 mls/hr IV Q12H [facility] Last Infusion: 05/28/22 14:57 Dose: Infused Insulin Glargine (Insulin Glargine,Hum.Rec.Anlog 100 Unit/Ml 10 Ml Vial) 10 unit SUBCUT DAILY@1700 [facility] Insulin Human Lispro (Insulin Lispro 100 Unit/Ml 3 Ml Vial) 5 unit SUBCUT TIDAC [facility] Last Admin: 05/28/22 16:37 Dose: Not Given Insulin Human Lispro (Insulin Lispro 100 Unit/Ml 3 Ml Vial) 0 unit SUBCUT QIDACHS [facility]; Protocol Last Admin: 05/28/22 16:36 Dose: Not Given Lidocaine (Lidocaine 4 % Patch Adh..Patch) 1 patch TRANSDERMA DAILY [facility] Loratadine (Loratadine 10 Mg Tablet) 10 mg PO DAILY [facility] Methadone HCl (Methadone Hcl 20 Mg/2 Ml Oral.Conc) 50 mg PO DAILY [facility] Last Admin: 05/28/22 10:24 Dose: 50 mg Montelukast Sodium (Montelukast Sodium 10 Mg Tablet) 10 mg PO BEDTIME [facility] Ondansetron HCl (Ondansetron Hcl 4 Mg/2 Ml Vial) 4 mg IVPUSH Q8H PRN PRN Reason: Nausea and Vomiting Pharmacy Consult (Consult Rx Perform Med Rec) 1 each MISCELLANE ONCE PRN PRN Reason: Consult order Sacubitril/Valsartan (Sacubitril/Valsartan 1 Tab Tablet) 1 tab PO BID [facility]; Protocol Sodium Chloride (0.9 % Sodium Chloride Flush 3 Ml Syringe) 3 ml IVFLUSH QSHIFT [facility] Last Admin: 05/28/22 15:29 Dose: 3 ml Spironolactone (Spironolactone 25 Mg Tablet) 12.5 mg PO DAILY [facility]; Protocol Tamsulosin HCl (Tamsulosin Hcl 0.4 Mg Capsule) 0.4 mg PO DAILY@1700 [facility] Last Admin: 05/28/22 16:26 Dose: 0.4 mg Urea (Urea 15 Gm Powder) 15 gm PO BID [facility] Zinc Sulfate (Zinc Sulfate 220 Mg Capsule) 50 mg PO DAILY [facility] Home Medications Medication Instructions Recorded Confirmed Last Taken Type albuterol sulfate 90 mcg/actuation 2 puff inhalation Q4-6H PRN dyspnea 05/28/22 05/28/22 Unknown History aerosol inhaler (ProAir HFA) aspirin 81 mg tablet,delayed 1 tab PO QAM 05/28/22 05/28/22 Unknown History release atorvastatin 20 mg tablet 1 tab PO BEDTIME 05/28/22 05/28/22 Unknown History bumetanide 2 mg tablet 1 tab PO BID 05/28/22 05/28/22 Unknown History carvedilol 6.25 mg tablet 6.25 mg PO BID 05/28/22 05/28/22 Unknown History cetirizine 10 mg tablet 1 tab PO DAILY 05/28/22 05/28/22 Unknown History clopidogrel 75 mg tablet 1 tab PO DAILY 05/28/22 05/28/22 Unknown History famotidine 20 mg tablet 20 mg PO BID 05/28/22 05/28/22 Unknown History fluticasone 500 mcg-salmeterol 50 1 puff PO BID 05/28/22 05/28/22 Unknown History mcg/dose blistr powdr for inhalation (Advair Diskus) fluticasone propionate 50 1 - 2 spray intranasal DAILY PRN 05/28/22 05/28/22 Unknown History mcg/actuation nasal Allergy Symptoms spray,suspension gabapentin 100 mg capsule 2 cap PO TID 05/28/22 05/28/22 Unknown History insulin aspart U-100 100 unit/mL 5 unit subcut TID 05/28/22 05/28/22 Unknown History (3 mL) subcutaneous pen (Novolog Flexpen U-100 Insulin aspart) lidocaine 5 % topical patch 1 patch topical DAILY 05/28/22 05/28/22 Unknown History (Lidoderm) methadone 10 mg/mL oral concentrate 52 mg PO DAILY 05/28/22 05/28/22 Unknown History montelukast 10 mg tablet 1 tab PO QPM 05/28/22 05/28/22 Unknown History sacubitril 24 mg-valsartan 26 mg 1 tab PO BID 05/28/22 05/28/22 Unknown History tablet (Entresto) spironolactone 25 mg tablet 12.5 mg PO DAILY 05/28/22 05/28/22 Unknown History tamsulosin 0.4 mg capsule 1 cap PO QPM 05/28/22 05/28/22 Unknown History zinc sulfate 50 mg zinc (220 mg) 1 cap PO DAILY 05/28/22 05/28/22 Unknown History capsule Physical Exam Vital Signs: Vital Signs: Last Vital Signs Temp 98.2 F 05/27/22 18:29 Pulse 64 05/28/22 14:50 Resp 16 05/28/22 14:02 BP 122/80 05/28/22 14:50 Pulse Ox 99 05/28/22 14:02 O2 Del Method 05/28/22 14:02 BMI result Body Mass Index 22.4 Const: General: cooperative, comfortable, no acute distress, alert, awake, ill appearing and other (Jaundiced) Nutritional Appearance: malnourished Orientation/consciousness: patient oriented x3 HEENT: Other: Scleral icterus present Head: Yes normocephalic and Yes atraumatic Eyes: General: appearance normal, both eyes and all related structures Neck: Neck: Yes trachea midline, Yes supple and Yes no JVD Resp: Effort & Inspection: normal respiratory effort Auscultation: clear to auscultation bilaterally and no rales Cardio: Jugular venous distension: JVD elevated Palpation: abnormal PMI displaced PMI Rate: regular rate Rhythm: regular rhythm Heart sounds: S1 normal heart sound present, S2 normal heart sound present, no click, no gallops, no murmurs and no rubs GI: Palpation (GI): Soft to palpation Auscultation: normal bowel sounds Skin: Other: Patient is jaundice General skin exam: no rashes or lesions noted Neuro: General: patient oriented x3 and no focal motor deficits Cognition (Neuro): normal cognition Extrem: Other: Left foot maggots present crawling out of his great toe right BKA Results Labs CBC & Chem 7: 05/28/22 05:39 05/28/22 05:39 Labs: Short CBC 05/28/22 Range/Units 05:39 WBC 11.1 H (4.8-10.8) X10*3/uL Hgb 11.8 L (14.0-18.0) g/dl Hct 35.7 L (42.0-52.0) % Plt Count 142 L D (160-400) X10*3/uL BMP 05/28/22 05:39 Sodium 126 L Potassium 4.0 Chloride 92 L Carbon Dioxide 25 BUN 25 H Creatinine 0.96 Calcium 8.6 Liver Function 05/28/22 Range/Units 05:39 Total Bilirubin 10.1 H (0.0-1.0) mg/dL AST 86 H (5-37) U/L ALT 172 H (0-40) U/L Alkaline Phosphatase 97 (39-117) U/L Albumin 2.9 L (3.5-5.0) g/dL Microbiology Microbiology Results: Microbiology 05/27/22 13:58 Blood - Venous Blood Culture - Preliminary No growth after 24 hours. 05/27/22 12:47 Blood - Venous Blood Culture - Preliminary No growth after 24 hours. Assessment and Plan (1) Painless jaundice: Status: Acute (2) Abnormal LFTs: Status: Acute Plan 1/ Abn LFT in setting of hypo osmolar hyponatremia and markedly elevated trop/BNP with low EF which I believe is most consistent with congestive hepatopathy. The colitis noted on imaging is prob due to mucosal edema of GI tract as is the thickened GB. HIDA scan is pending. DDX: DILI related to recent antbiotics and other meds, cholangioca, pancreatic ca PLAN: 1/ Diurese 2/ blood cultures, wound swabs, HIDA pending 3/ if LFT worsen or fail to respond then broaden work up with us doppler, to r/o budd chiari, liver serologies, MRI to r/o pancreas/biliary mass 4/ watch for sepsis 5/ if diagnostic doubt reamins then may need liver biopsy Procedures Date of Service Date of Service: 05/28/22
--- NOTE | 2022-05-28 19:14 | PM.CNGS ---
History of Present Illness Consult details Consult date: 05/28/22 Reason for consult: other Requesting physician: Joesph Nath Narrative: pt with pvd had right bka. has had issues with left foot and leg and has seen dr heredia who in april did angioplasty of the leg- pt with continued left great toe wound and now comes in with maggots. seen by ID pt also noted to be visiibly jaundiced and lfts very elevated Review of Systems Review of Systems: Yes Unobtainable due to mental status PMFSH Past Medical History Medical History Abscess or cellulitis of foot Acute on chronic anemia Acute on chronic combined systolic and diastolic congestive heart failure Acute on chronic HFrEF (heart failure with reduced ejection fraction) Acute respiratory failure with hypoxia Asthma Bipolar 1 disorder BPH (benign prostatic hyperplasia) CHF (congestive heart failure) CHF (congestive heart failure) CHF exacerbation Cholelithiasis Closed wedge compression fracture of T9 vertebra COPD (chronic obstructive pulmonary disease) Diabetes mellitus Diabetes mellitus, type 2 Elevated troponin GERD (gastroesophageal reflux disease) Hyperlipidemia Ischemic cardiomyopathy Lymphadenopathy Opiate abuse, continuous Osteomyelitis Osteomyelitis of great toe Peripheral arterial disease Peripheral neuropathy Peripheral vascular disease Substance abuse Tracheomalacia, acquired Transaminitis Family History Family History Father Chronic mental illness Hypertension Asthma Stroke Mother Asthma Diabetes Coronary artery disease Surgical History Surgical History History of amputation History of laminectomy History of transurethral resection of prostate Hx of BKA Social History Social History Household Members: Unknown / Unable to assess Housing: House Housing Other:: IN A LITTLE ROOM Do you presently have visiting nurse or other home services: No Unable to assess alcohol history related to: Refusing to respond Alcohol intake: unknown Patient Tobacco Use Status: Never used Tobacco e-Cigarette/Vaping Use: Never Used Second Hand Smoke Exposure: No Use of substances other than those prescribed or required for medical reasons: Yes Substance Use Type: Marijuana Substance Use Frequency: Daily Advance Directives: Yes Advance Directives on File: Yes Advance Directives Date on File: 11/24/20 service: No Current occupational status: unemployed and disabled Meds Allergies Allergy/AdvReac Type Severity Reaction Status Date / Time ertapenem Allergy Intermediate Hives Verified 02/21/22 18:40 vancomycin [VANCOMYCIN] Allergy Intermediate HIVES Verified 02/21/22 18:40 Chocolate Allergy Unknown Rash Verified 02/21/22 18:40 ciprofloxacin [From CIPRO] Allergy Unknown SWELLING Verified 02/21/22 18:40 hydrocortisone [Cipro HC] Allergy Unknown Unknown Verified 02/21/22 18:40 sulfamethoxazole Allergy Unknown rash Verified 02/21/22 18:40 [From BACTRIM] trimethoprim [From BACTRIM] Allergy Unknown rash Verified 02/21/22 18:40 turkey [TURKEY] Allergy Unknown RASH Verified 02/21/22 18:40 Active Medications: Current Medications Acetaminophen (Acetaminophen 325 Mg Tablet) 650 mg PO Q6H PRN PRN Reason: Pain, Mild (Pain Scale 1-3) Albuterol Sulfate (Albuterol Sulfate 90 Mcg 8 Gm Inhaler) 2 puff INHALE Q4H PRN PRN Reason: dyspnea Aspirin (Aspirin Enteric Coated 81 Mg Tablet.Dr) 81 mg PO DAILY [facility] Last Admin: 05/28/22 08:33 Dose: 81 mg Atorvastatin Calcium (Atorvastatin Calcium 20 Mg Tablet) 20 mg PO BEDTIME [facility] Bumetanide (Bumetanide 1 Mg/4 Ml Vial) 2 mg IVPUSH BID@0900,1700 [facility]; Protocol Last Admin: 05/28/22 16:26 Dose: 2 mg Carvedilol (Carvedilol 6.25 Mg Tablet) 6.25 mg PO BID [facility]; Protocol Clopidogrel Bisulfate (Clopidogrel Bisulfate 75 Mg Tablet) 75 mg PO DAILY [facility] Docusate Sodium (Docusate Sodium 100 Mg Capsule) 100 mg PO DAILY PRN PRN Reason: Constipation Famotidine (Famotidine 20 Mg Tablet) 20 mg PO BID [facility] Fluticasone Propionate (Fluticasone Propionate Nasal 16 Gm [place]) 1 spray NOSTRIL-B DAILY PRN PRN Reason: Allergy Symptoms Fluticasone/Vilanterol (Fluticasone/Vilanterol 200/25 Blst.W.Dev) 1 puff INHALE RDAILY [facility] Last Admin: 05/28/22 09:14 Dose: Not Given Gabapentin (Gabapentin 100 Mg Capsule) 200 mg PO TID [facility] Last Admin: 05/28/22 14:49 Dose: 200 mg Heparin Sodium (Porcine) (Heparin Sodium,Porcine 5,000 Unit/Ml Vial) 5,000 unit SUBCUT Q12H [facility] Last Admin: 05/28/22 08:34 Dose: 5,000 unit Piperacillin Sod/Tazobactam (Sod 3.375 gm/ Sodium Chloride) 50 mls @ 100 mls/hr IV Q6H [facility] Last Infusion: 05/28/22 15:30 Dose: Infused Linezolid (Zyvox/D5w) 600 mg in 300 mls @ 300 mls/hr IV Q12H [facility] Last Infusion: 05/28/22 14:57 Dose: Infused Insulin Glargine (Insulin Glargine,Hum.Rec.Anlog 100 Unit/Ml 10 Ml Vial) 10 unit SUBCUT DAILY@1700 [facility] Insulin Human Lispro (Insulin Lispro 100 Unit/Ml 3 Ml Vial) 5 unit SUBCUT TIDAC [facility] Last Admin: 05/28/22 16:37 Dose: Not Given Insulin Human Lispro (Insulin Lispro 100 Unit/Ml 3 Ml Vial) 0 unit SUBCUT QIDACHS [facility]; Protocol Last Admin: 05/28/22 16:36 Dose: Not Given Lidocaine (Lidocaine 4 % Patch Adh..Patch) 1 patch TRANSDERMA DAILY [facility] Loratadine (Loratadine 10 Mg Tablet) 10 mg PO DAILY [facility] Methadone HCl (Methadone Hcl 20 Mg/2 Ml Oral.Conc) 50 mg PO DAILY [facility] Last Admin: 05/28/22 10:24 Dose: 50 mg Montelukast Sodium (Montelukast Sodium 10 Mg Tablet) 10 mg PO BEDTIME [facility] Ondansetron HCl (Ondansetron Hcl 4 Mg/2 Ml Vial) 4 mg IVPUSH Q8H PRN PRN Reason: Nausea and Vomiting Pharmacy Consult (Consult Rx Perform Med Rec) 1 each MISCELLANE ONCE PRN PRN Reason: Consult order Sacubitril/Valsartan (Sacubitril/Valsartan 1 Tab Tablet) 1 tab PO BID [facility]; Protocol Sodium Chloride (0.9 % Sodium Chloride Flush 3 Ml Syringe) 3 ml IVFLUSH QSHIFT [facility] Last Admin: 05/28/22 15:29 Dose: 3 ml Spironolactone (Spironolactone 25 Mg Tablet) 12.5 mg PO DAILY [facility]; Protocol Tamsulosin HCl (Tamsulosin Hcl 0.4 Mg Capsule) 0.4 mg PO DAILY@1700 [facility] Last Admin: 05/28/22 16:26 Dose: 0.4 mg Urea (Urea 15 Gm Powder) 15 gm PO BID [facility] Zinc Sulfate (Zinc Sulfate 220 Mg Capsule) 50 mg PO DAILY [facility] Home Medications Medication Instructions Recorded Confirmed Last Taken Type albuterol sulfate 90 mcg/actuation 2 puff inhalation Q4-6H PRN dyspnea 05/28/22 05/28/22 Unknown History aerosol inhaler (ProAir HFA) aspirin 81 mg tablet,delayed 1 tab PO QAM 05/28/22 05/28/22 Unknown History release atorvastatin 20 mg tablet 1 tab PO BEDTIME 05/28/22 05/28/22 Unknown History bumetanide 2 mg tablet 1 tab PO BID 05/28/22 05/28/22 Unknown History carvedilol 6.25 mg tablet 6.25 mg PO BID 05/28/22 05/28/22 Unknown History cetirizine 10 mg tablet 1 tab PO DAILY 05/28/22 05/28/22 Unknown History clopidogrel 75 mg tablet 1 tab PO DAILY 05/28/22 05/28/22 Unknown History famotidine 20 mg tablet 20 mg PO BID 05/28/22 05/28/22 Unknown History fluticasone 500 mcg-salmeterol 50 1 puff PO BID 05/28/22 05/28/22 Unknown History mcg/dose blistr powdr for inhalation (Advair Diskus) fluticasone propionate 50 1 - 2 spray intranasal DAILY PRN 05/28/22 05/28/22 Unknown History mcg/actuation nasal Allergy Symptoms spray,suspension gabapentin 100 mg capsule 2 cap PO TID 05/28/22 05/28/22 Unknown History insulin aspart U-100 100 unit/mL 5 unit subcut TID 05/28/22 05/28/22 Unknown History (3 mL) subcutaneous pen (Novolog Flexpen U-100 Insulin aspart) lidocaine 5 % topical patch 1 patch topical DAILY 05/28/22 05/28/22 Unknown History (Lidoderm) methadone 10 mg/mL oral concentrate 52 mg PO DAILY 05/28/22 05/28/22 Unknown History montelukast 10 mg tablet 1 tab PO QPM 05/28/22 05/28/22 Unknown History sacubitril 24 mg-valsartan 26 mg 1 tab PO BID 05/28/22 05/28/22 Unknown History tablet (Entresto) spironolactone 25 mg tablet 12.5 mg PO DAILY 05/28/22 05/28/22 Unknown History tamsulosin 0.4 mg capsule 1 cap PO QPM 05/28/22 05/28/22 Unknown History zinc sulfate 50 mg zinc (220 mg) 1 cap PO DAILY 05/28/22 05/28/22 Unknown History capsule Physical Exam Vital Signs: Vital Signs: Last Vital Signs Temp 98.2 F 05/27/22 18:29 Pulse 64 05/28/22 14:50 Resp 16 05/28/22 14:02 BP 122/80 05/28/22 14:50 Pulse Ox 99 05/28/22 14:02 O2 Del Method 05/28/22 14:02 BMI result Body Mass Index 22.4 Skin: Other: right bka left great toe - mid toe with large defect and open wound to muscle and tendon and bone - no continuing maggots Results Labs Result diagrams: 05/29/22 01:15 05/28/22 05:39 Labs: Abnormal lab results 05/27/22 05/27/22 05/28/22 Range/Units 21:20 21:20 00:12 WBC (4.8-10.8) X10*3/uL RBC (4.60-5.80) X10*6/uL Hgb (14.0-18.0) g/dl Hct (42.0-52.0) % RDW (11.0-16.0) % Plt Count (160-400) X10*3/uL Immature Gran % (Auto) (0.0-0.4) % Neut % (Auto) (45-73) % Lymph % (Auto) (20-40) % Lymph # (Auto) (1.2-4.9) X10*3/uL Abs Immat Gran (auto) (0.00-0.03) X10*3/uL Absolute Neuts (auto) (2.0-8.3) x10*3/uL Sodium (135-145) mmol/L Chloride (96-108) mmol/L BUN (9-16) mg/dL POC Glucose (60-115) mg/dL Random Glucose (60-115) mg/dL Osmolality (281-305) mosm/kg Lactic Acid F/U @ 2Hr 2.2 H* (0.5-2.0) mmol/L Lactic Acid F/U @ 4Hr 2.2 H* (0.5-2.0) mmol/L Total Bilirubin (0.0-1.0) mg/dL AST (5-37) U/L ALT (0-40) U/L Troponin I High Sens 2775.4 H* (<3.5-35.0) ng/L C-Reactive Protein (< or = 0.50) mg/dL Total Protein (6.5-8.0) g/dL Albumin (3.5-5.0) g/dL U Marijuana (THC) Screen (Not Detect) 05/28/22 05/28/22 05/28/22 Range/Units 05:39 05:39 05:39 WBC 11.1 H (4.8-10.8) X10*3/uL RBC 4.13 L (4.60-5.80) X10*6/uL Hgb 11.8 L (14.0-18.0) g/dl Hct 35.7 L (42.0-52.0) % RDW 20.4 H (11.0-16.0) % Plt Count 142 L D (160-400) X10*3/uL Immature Gran % (Auto) 0.5 H (0.0-0.4) % Neut % (Auto) 82.2 H (45-73) % Lymph % (Auto) 7.0 L (20-40) % Lymph # (Auto) 0.8 L (1.2-4.9) X10*3/uL Abs Immat Gran (auto) 0.06 H (0.00-0.03) X10*3/uL Absolute Neuts (auto) 9.1 H (2.0-8.3) x10*3/uL Sodium 126 L (135-145) mmol/L Chloride 92 L (96-108) mmol/L BUN 25 H (9-16) mg/dL POC Glucose (60-115) mg/dL Random Glucose 188 H (60-115) mg/dL Osmolality 280 L (281-305) mosm/kg Lactic Acid F/U @ 2Hr (0.5-2.0) mmol/L Lactic Acid F/U @ 4Hr (0.5-2.0) mmol/L Total Bilirubin 10.1 H (0.0-1.0) mg/dL AST 86 H (5-37) U/L ALT 172 H (0-40) U/L Troponin I High Sens (<3.5-35.0) ng/L C-Reactive Protein 5.73 H (< or = 0.50) mg/dL Total Protein 6.4 L (6.5-8.0) g/dL Albumin 2.9 L (3.5-5.0) g/dL U Marijuana (THC) Screen (Not Detect) 05/28/22 05/28/22 05/28/22 Range/Units 07:35 14:56 15:18 WBC (4.8-10.8) X10*3/uL RBC (4.60-5.80) X10*6/uL Hgb (14.0-18.0) g/dl Hct (42.0-52.0) % RDW (11.0-16.0) % Plt Count (160-400) X10*3/uL Immature Gran % (Auto) (0.0-0.4) % Neut % (Auto) (45-73) % Lymph % (Auto) (20-40) % Lymph # (Auto) (1.2-4.9) X10*3/uL Abs Immat Gran (auto) (0.00-0.03) X10*3/uL Absolute Neuts (auto) (2.0-8.3) x10*3/uL Sodium (135-145) mmol/L Chloride (96-108) mmol/L BUN (9-16) mg/dL POC Glucose 161 H (60-115) mg/dL Random Glucose (60-115) mg/dL Osmolality 277 L (281-305) mosm/kg Lactic Acid F/U @ 2Hr (0.5-2.0) mmol/L Lactic Acid F/U @ 4Hr (0.5-2.0) mmol/L Total Bilirubin (0.0-1.0) mg/dL AST (5-37) U/L ALT (0-40) U/L Troponin I High Sens (<3.5-35.0) ng/L C-Reactive Protein (< or = 0.50) mg/dL Total Protein (6.5-8.0) g/dL Albumin (3.5-5.0) g/dL U Marijuana (THC) Screen POSITIVE H (Not Detect) 05/28/22 Range/Units 16:34 WBC (4.8-10.8) X10*3/uL RBC (4.60-5.80) X10*6/uL Hgb (14.0-18.0) g/dl Hct (42.0-52.0) % RDW (11.0-16.0) % Plt Count (160-400) X10*3/uL Immature Gran % (Auto) (0.0-0.4) % Neut % (Auto) (45-73) % Lymph % (Auto) (20-40) % Lymph # (Auto) (1.2-4.9) X10*3/uL Abs Immat Gran (auto) (0.00-0.03) X10*3/uL Absolute Neuts (auto) (2.0-8.3) x10*3/uL Sodium (135-145) mmol/L Chloride (96-108) mmol/L BUN (9-16) mg/dL POC Glucose 116 H (60-115) mg/dL Random Glucose (60-115) mg/dL Osmolality (281-305) mosm/kg Lactic Acid F/U @ 2Hr (0.5-2.0) mmol/L Lactic Acid F/U @ 4Hr (0.5-2.0) mmol/L Total Bilirubin (0.0-1.0) mg/dL AST (5-37) U/L ALT (0-40) U/L Troponin I High Sens (<3.5-35.0) ng/L C-Reactive Protein (< or = 0.50) mg/dL Total Protein (6.5-8.0) g/dL Albumin (3.5-5.0) g/dL U Marijuana (THC) Screen (Not Detect) Short CBC 05/28/22 Range/Units 05:39 WBC 11.1 H (4.8-10.8) X10*3/uL Hgb 11.8 L (14.0-18.0) g/dl Hct 35.7 L (42.0-52.0) % Plt Count 142 L D (160-400) X10*3/uL BMP 05/28/22 05:39 Sodium 126 L Potassium 4.0 Chloride 92 L Carbon Dioxide 25 BUN 25 H Creatinine 0.96 Calcium 8.6 Liver Function 05/28/22 Range/Units 05:39 Total Bilirubin 10.1 H (0.0-1.0) mg/dL AST 86 H (5-37) U/L ALT 172 H (0-40) U/L Alkaline Phosphatase 97 (39-117) U/L Albumin 2.9 L (3.5-5.0) g/dL Urine 05/27/22 Range/Units 14:09 Urine Color DK YELLOW Urine Appearance CLEAR Urine pH 6.0 (5.0-8.0) Ur Specific [place] 1.020 (1.005-1.025) Urine Protein 1+ H (NEG-TRACE) MG/DL Urine Glucose (UA) 100 H (NEG) MG/DL All other labs normal. Assessment and Plan (1) Chronic osteomyelitis: Status: Acute Plan 51 year old male with left pvd s/p recent angiogram - now with worsening toe wound - need to clean and dress- goal is to get surrounding tissue clean with antibx and dressings and then will need great toe amputation - already has osteo - not salvageable. will discuss with dr heredia in regards to elevated lfts uncertain true etiology although hida was slow normal doubt cholecystitis but more functional cirrhosis and as per GI team Procedures Date of Service Date of Service: 05/28/22
[2022-05-28 22:40] LABS: Glucose, Whole Blood 83 mg/dL (60-115)
[2022-05-28] MEDS: Montelukast Sodium 10 MG TABLET PO (22:51)
[2022-05-28] MEDS: carvediloL 6.25 MG TABLET PO (22:51)
[2022-05-28] MEDS: Atorvastatin Calcium 20 MG TABLET PO (22:51)
[2022-05-28] MEDS: Sacubitril/Valsartan 24/26 1 TAB TABLET PO (22:51)
[2022-05-28] MEDS: Famotidine 20 MG TABLET PO (22:53)
--- NOTE | 2022-05-28 22:57 | P.CNID_ITS ---
History of Present Illness Data of Consult Service Date: 05/28/22 Requesting physician: Juan Delcid / [facility] Primary Care Provider: Unknown Physician HPI Reason for consult: left great toe osteomyelitis,maggots He presents with nausea and vomiting for two days. He has no fever or chills. He has longstanding left great toe osteomyelitis and left toe wound which is deep. Review of Systems Review of Systems: Yes all other systems are reviewed and are negative [facility] Past Medical History Medical History Abscess or cellulitis of foot Acute on chronic anemia Acute on chronic combined systolic and diastolic congestive heart failure Acute on chronic HFrEF (heart failure with reduced ejection fraction) Acute respiratory failure with hypoxia Asthma Bipolar 1 disorder BPH (benign prostatic hyperplasia) CHF (congestive heart failure) CHF (congestive heart failure) CHF exacerbation Cholelithiasis Closed wedge compression fracture of T9 vertebra COPD (chronic obstructive pulmonary disease) Diabetes mellitus Diabetes mellitus, type 2 Elevated troponin GERD (gastroesophageal reflux disease) Hyperlipidemia Ischemic cardiomyopathy Lymphadenopathy Opiate abuse, continuous Osteomyelitis Osteomyelitis of great toe Peripheral arterial disease Peripheral neuropathy Peripheral vascular disease Substance abuse Tracheomalacia, acquired Transaminitis Family History Family History Father Chronic mental illness Hypertension Asthma Stroke Mother Asthma Diabetes Coronary artery disease Surgical History Surgical History History of amputation History of laminectomy History of transurethral resection of prostate Hx of BKA Social History Social History Household Members: Unknown / Unable to assess Housing: House Housing Other:: IN A LITTLE ROOM Do you presently have visiting nurse or other home services: No Unable to assess alcohol history related to: Refusing to respond Alcohol intake: unknown Patient Tobacco Use Status: Never used Tobacco e-Cigarette/Vaping Use: Never Used Second Hand Smoke Exposure: No Substance Use Type: Marijuana Advance Directives Date on File: 11/24/20 service: No Current occupational status: unemployed and disabled Meds Allergies Allergy/AdvReac Type Severity Reaction Status Date / Time ertapenem Allergy Intermediate Hives Verified 02/21/22 18:40 vancomycin [VANCOMYCIN] Allergy Intermediate HIVES Verified 02/21/22 18:40 Chocolate Allergy Unknown Rash Verified 02/21/22 18:40 ciprofloxacin [From CIPRO] Allergy Unknown SWELLING Verified 02/21/22 18:40 hydrocortisone [Cipro HC] Allergy Unknown Unknown Verified 02/21/22 18:40 sulfamethoxazole Allergy Unknown rash Verified 02/21/22 18:40 [From BACTRIM] trimethoprim [From BACTRIM] Allergy Unknown rash Verified 02/21/22 18:40 turkey [TURKEY] Allergy Unknown RASH Verified 02/21/22 18:40 Active Medications: Current Medications Acetaminophen (Acetaminophen 325 Mg Tablet) 650 mg PO Q6H PRN PRN Reason: Pain, Mild (Pain Scale 1-3) Albuterol Sulfate (Albuterol Sulfate 90 Mcg 8 Gm Inhaler) 2 puff INHALE Q4H PRN PRN Reason: dyspnea Aspirin (Aspirin Enteric Coated 81 Mg Tablet.Dr) 81 mg PO DAILY [facility] Last Admin: 05/28/22 08:33 Dose: 81 mg Atorvastatin Calcium (Atorvastatin Calcium 20 Mg Tablet) 20 mg PO BEDTIME [facility] Last Admin: 05/28/22 22:51 Dose: 20 mg Bumetanide (Bumetanide 1 Mg/4 Ml Vial) 2 mg IVPUSH BID@0900,1700 [facility]; Protocol Last Admin: 05/28/22 16:26 Dose: 2 mg Carvedilol (Carvedilol 6.25 Mg Tablet) 6.25 mg PO BID [facility]; Protocol Last Admin: 05/28/22 22:51 Dose: 6.25 mg Clopidogrel Bisulfate (Clopidogrel Bisulfate 75 Mg Tablet) 75 mg PO DAILY [facility] Docusate Sodium (Docusate Sodium 100 Mg Capsule) 100 mg PO DAILY PRN PRN Reason: Constipation Famotidine (Famotidine 20 Mg Tablet) 20 mg PO BID [facility] Last Admin: 05/28/22 22:53 Dose: 20 mg Fluticasone Propionate (Fluticasone Propionate Nasal 16 Gm [place]) 1 spray NOSTRIL-B DAILY PRN PRN Reason: Allergy Symptoms Fluticasone/Vilanterol (Fluticasone/Vilanterol 200/25 Blst.W.Dev) 1 puff INHALE RDAILY [facility] Last Admin: 05/28/22 09:14 Dose: Not Given Gabapentin (Gabapentin 100 Mg Capsule) 200 mg PO TID [facility] Last Admin: 05/28/22 22:51 Dose: 200 mg Heparin Sodium (Porcine) (Heparin Sodium,Porcine 5,000 Unit/Ml Vial) 5,000 unit SUBCUT Q12H [facility] Last Admin: 05/28/22 22:51 Dose: 5,000 unit Piperacillin Sod/Tazobactam (Sod 3.375 gm/ Sodium Chloride) 50 mls @ 100 mls/hr IV Q6H [facility] Last Infusion: 05/28/22 15:30 Dose: Infused Linezolid (Zyvox/D5w) 600 mg in 300 mls @ 300 mls/hr IV Q12H [facility] Last Admin: 05/28/22 22:52 Dose: 300 mls/hr Insulin Glargine (Insulin Glargine,Hum.Rec.Anlog 100 Unit/Ml 10 Ml Vial) 10 unit SUBCUT DAILY@1700 [facility] Last Admin: 05/28/22 19:51 Dose: Not Given Insulin Human Lispro (Insulin Lispro 100 Unit/Ml 3 Ml Vial) 5 unit SUBCUT TIDAC [facility] Last Admin: 05/28/22 16:37 Dose: Not Given Insulin Human Lispro (Insulin Lispro 100 Unit/Ml 3 Ml Vial) 0 unit SUBCUT QIDACHS [facility]; Protocol Last Admin: 05/28/22 22:52 Dose: Not Given Lidocaine (Lidocaine 4 % Patch Adh..Patch) 1 patch TRANSDERMA DAILY [facility] Loratadine (Loratadine 10 Mg Tablet) 10 mg PO DAILY [facility] Methadone HCl (Methadone Hcl 20 Mg/2 Ml Oral.Conc) 50 mg PO DAILY [facility] Last Admin: 05/28/22 10:24 Dose: 50 mg Montelukast Sodium (Montelukast Sodium 10 Mg Tablet) 10 mg PO BEDTIME [facility] Last Admin: 05/28/22 22:51 Dose: 10 mg Ondansetron HCl (Ondansetron Hcl 4 Mg/2 Ml Vial) 4 mg IVPUSH Q8H PRN PRN Reason: Nausea and Vomiting Pharmacy Consult (Consult Rx Perform Med Rec) 1 each MISCELLANE ONCE PRN PRN Reason: Consult order Sacubitril/Valsartan (Sacubitril/Valsartan 1 Tab Tablet) 1 tab PO BID [facility]; Protocol Last Admin: 05/28/22 22:51 Dose: 1 tab Sodium Chloride (0.9 % Sodium Chloride Flush 3 Ml Syringe) 3 ml IVFLUSH QSHIFT [facility] Last Admin: 05/28/22 15:29 Dose: 3 ml Spironolactone (Spironolactone 25 Mg Tablet) 12.5 mg PO DAILY [facility]; Protocol Tamsulosin HCl (Tamsulosin Hcl 0.4 Mg Capsule) 0.4 mg PO DAILY@1700 [facility] Last Admin: 05/28/22 16:26 Dose: 0.4 mg Urea (Urea 15 Gm Powder) 15 gm PO BID [facility] Last Admin: 05/28/22 22:52 Dose: 15 gm Zinc Sulfate (Zinc Sulfate 220 Mg Capsule) 50 mg PO DAILY [facility] Home Medications Medication Instructions Recorded Confirmed Last Taken Type albuterol sulfate 90 mcg/actuation 2 puff inhalation Q4-6H PRN dyspnea 05/28/22 05/28/22 Unknown History aerosol inhaler (ProAir HFA) aspirin 81 mg tablet,delayed 1 tab PO QAM 05/28/22 05/28/22 Unknown History release atorvastatin 20 mg tablet 1 tab PO BEDTIME 05/28/22 05/28/22 Unknown History bumetanide 2 mg tablet 1 tab PO BID 05/28/22 05/28/22 Unknown History carvedilol 6.25 mg tablet 6.25 mg PO BID 05/28/22 05/28/22 Unknown History clopidogrel 75 mg tablet 1 tab PO DAILY 05/28/22 05/28/22 Unknown History famotidine 20 mg tablet 20 mg PO BID 05/28/22 05/28/22 Unknown History fluticasone 500 mcg-salmeterol 50 1 puff PO BID 05/28/22 05/28/22 Unknown History mcg/dose blistr powdr for inhalation (Advair Diskus) fluticasone propionate 50 1 - 2 spray intranasal DAILY PRN 05/28/22 05/28/22 Unknown History mcg/actuation nasal Allergy Symptoms spray,suspension gabapentin 100 mg capsule 2 cap PO TID 05/28/22 05/28/22 Unknown History insulin aspart U-100 100 unit/mL 5 unit subcut TID 05/28/22 05/28/22 Unknown History (3 mL) subcutaneous pen (Novolog Flexpen U-100 Insulin aspart) lidocaine 5 % topical patch 1 patch topical DAILY 05/28/22 05/28/22 Unknown History (Lidoderm) methadone 10 mg/mL oral concentrate 52 mg PO DAILY 05/28/22 05/28/22 Unknown History montelukast 10 mg tablet 1 tab PO QPM 05/28/22 05/28/22 Unknown History sacubitril 24 mg-valsartan 26 mg 1 tab PO BID 05/28/22 05/28/22 Unknown History tablet (Entresto) spironolactone 25 mg tablet 12.5 mg PO DAILY 05/28/22 05/28/22 Unknown History tamsulosin 0.4 mg capsule 1 cap PO QPM 05/28/22 05/28/22 Unknown History zinc sulfate 50 mg zinc (220 mg) 1 cap PO DAILY 05/28/22 05/28/22 Unknown History capsule Physical Exam Vital Signs: Vital Signs: Last Vital Signs Temp 98.2 F 05/27/22 18:29 Pulse 64 05/28/22 14:50 Resp 16 05/28/22 14:02 BP 122/80 05/28/22 14:50 Pulse Ox 99 05/28/22 14:02 O2 Del Method 05/28/22 14:02 BMI result Body Mass Index 22.4 Const: General: cooperative HEENT: Head: Yes normal to inspection Face and sinus: Yes normal facial exam Mouth: Normal oral and palatal mucosa present Teeth and gingiva: den tition normal Eyes: General: appearance normal, both eyes and all related structures Pupils: Equal, round and reactive pupils present Resp: Effort & Inspection: normal respiratory effort Cardio: Rate: regular rate Rhythm: regular rhythm GI: Palpation (GI): Soft to palpation and nontender : General: Yes no CVA tenderness Back/Spine/Pelvis: Back: no CVA tenderness Skin: General skin exam: no rashes or lesions noted Neuro: General: moves all extremities Cranial nerves: Yes Equal, round and reactive pupils present Extrem: Other: mobile left great toe,?fracture,yellow green with exudate right BKA General: Yes normal to inspection Psych: Appearance: grossly normal Results Labs CBC & Chem 7: 05/29/22 05:25 05/29/22 05:25 Labs: Short CBC 05/28/22 Range/Units 05:39 WBC 11.1 H (4.8-10.8) X10*3/uL Hgb 11.8 L (14.0-18.0) g/dl Hct 35.7 L (42.0-52.0) % Plt Count 142 L D (160-400) X10*3/uL BMP 05/28/22 05:39 Sodium 126 L Potassium 4.0 Chloride 92 L Carbon Dioxide 25 BUN 25 H Creatinine 0.96 Calcium 8.6 Liver Function 05/28/22 Range/Units 05:39 Total Bilirubin 10.1 H (0.0-1.0) mg/dL AST 86 H (5-37) U/L ALT 172 H (0-40) U/L Alkaline Phosphatase 97 (39-117) U/L Albumin 2.9 L (3.5-5.0) g/dL Microbiology Microbiology Results: Microbiology 05/27/22 13:58 Blood - Venous Blood Culture - Preliminary No growth after 24 hours. 05/27/22 12:47 Blood - Venous Blood Culture - Preliminary No growth after 24 hours. Assessment and Plan (1) Osteomyelitis of great toe of left foot: Status: Acute He may have pathologic fracture. He may have gram negative,gram positive (2) Acute on chronic HFrEF (heart failure with reduced ejection fraction): Status: Acute Plan Agree Zosyn and Zyvox, Surgery to amputate great toe. Would continue antibiotics untill source removed. Plan Agree Zosyn and Zyvox, Surgery to amputate great toe. Would continue antibiotics untill source removed.
[2022-05-28 23:09] VITALS: BP 104/71; PULSE 71; RESP 14; TEMP 36.2; O2SAT 99
[2022-05-29] VITALS (19 sets, daily range): BP systolic 67–124; BP diastolic 40–76; PULSE 47–81; RESP 7–16; TEMP 35.7–36.5; O2SAT 93–100
--- NOTE | 2022-05-29 01:11 | PM.EVENT ---
Event Note Date of Service: 05/29/22 Event Note: A rapid response was called on the patient because he became bradycardic with a heart rate in the 30s. Patient is asymptomatic but has a low blood pressure of 70s over 30s. Patient received 1 mg of atropine with no response, he also received 50 mg of phenylephrine with no response and his blood pressure. About 200 cc of fluid were given before ICU was called and patient will be transferred to ICU for further management.
[2022-05-29 01:18] LABS: Basophils Percent Auto 0.1 % (0-2); Imm Gran Abs Auto 0.04 X10*3/uL (0.00-0.03); Imm Gran Pct Auto 0.5 % (0.0-0.4); Mean Corpuscular HGB Conc 32.2 g/dl (31.0-36.0); Neutrophils Percent Auto 78.6 % (45-73); PLT CLUMP 1; Red Blood Count 3.55 X10*6/uL (4.60-5.80); SCAN SMEAR FLAG 1
[2022-05-29 01:20] LABS: Eosinophils Absolute Auto 0.1 X10*3/uL (0.0-0.4); Eosinophils Percent Auto 1.6 % (0-4); Hematocrit 31.4 % (42.0-52.0); Hemoglobin 10.1 g/dl (14.0-18.0); Lymphocytes Absolute Auto 0.6 X10*3/uL (1.2-4.9); Lymphocytes Percent Auto 8.6 % (20-40); Mean Corpuscular Hemoglobin 28.5 pg (27.0-33.0); Mean Corpuscular Volume 88.5 fL (80.0-98.0); Mean Platelet Volume 10.1 fL (9.4-12.4); Monocytes Absolute Auto 0.8 X10*3/uL (0.1-1.2); Monocytes Percent Auto 10.6 % (2-11); Neutrophils Absolute Auto 5.7 x10*3/uL (2.0-8.3); Platelet Count 113 X10*3/uL (160-400); Red Cell Distribution Width 20.5 % (11.0-16.0); White Blood Count 7.3 X10*3/uL (4.8-10.8)
[2022-05-29 01:21] LABS: MANUAL DIFF FLAG NO
--- NOTE | 2022-05-29 01:22 | PC.NURSE ---
CARE ASSUMED 23:15...AWAKE..ALERT..ORIENTED X3..VAGUE RESPONSES..RESPIRATIONS EASY..NO DISTRESS ON ROOM AIR...DRESSING LEFT FOOT INTACT..NSR..HR 68-72..BP 104/71 AT HS....OO:45...MONITOR BRADYCARDIC...HR 32-34..? JUNCTIONAL ESCAPE RHYTHM...BP 63/32...DENIED DIZZYNESS OR PAIN...MANUFACTURING SUPPORT ENGINEER PAGED OVERHEAD...HOSPITAKIST/ER MD AND REAL ESTATE ADMINISTRATIVE ASSISTANT PRESENT..NS 0.9% 1000ML BOLUS HUNG...ATROPINE 0,5MG IV X2 DOSES GIVEN...PHENYLEPHRINE 50MCG IV BOLUS BY MD...HR REMAINED 40-42...SBP 70'S...ICU PA PRESENT...PATIENT TRANSFERRED TO ICU
[2022-05-29] MEDS: DOPamine HCL/D5W 400 MG/250 ML PLAST..BAG 23.64 MG IVCONT (01:30)
[2022-05-29 01:42] LABS: Alanine Aminotransferase 119 U/L (0-40); Albumin Level 2.4 g/dL (3.5-5.0); Alkaline Phosphatase 78 U/L (39-117); Anion Gap 14 (12-20); Aspartate Amino Transferase 58 U/L (5-37); Bilirubin Total 7.8 mg/dL (0.0-1.0); Blood Urea Nitrogen 45 mg/dL (9-16); Calcium 8.1 mg/dL (8.4-10.2); Carbon Dioxide 25 mmol/L (22-29); Chloride 95 mmol/L (96-108); Creatinine Clr Calc Pharmacy 81.9; Estimated Glomerular Filt Rate > 60; Glucose Random 151 mg/dL (60-115); Potassium 3.3 mmol/L (3.3-5.1); Sodium 131 mmol/L (135-145); Total Protein 5.1 g/dL (6.5-8.0)
[2022-05-29 01:46] LABS: B Type Natriuretic Peptide 2667 pg/mL (<100); Troponin-I High Sensitivity 2291.1 ng/L (<3.5-35.0)
[2022-05-29] MEDS: Piperacillin Sodium/Tazobactam 3.375 GM in 0.9 % Sodium Chloride 50 ML IV ×3 (02:00→13:10)
[2022-05-29 02:13] LABS: Glucose, Whole Blood 146 mg/dL (60-115)
[2022-05-29] MEDS: Albumin Human 25 % 100 ML IV ×3 (02:21→13:13)
[2022-05-29] MEDS: Atropine Sulfate 1 MG/10 ML SYRINGE IVPUSH (02:21)
[2022-05-29 02:40] LABS: Lactic Acid 1.8 mmol/L (0.5-2.0)
--- NOTE | 2022-05-29 03:43 | P.CONCC_ITS ---
History of Present Illness Data of Consult Service Date: 05/29/22 Requesting physician: Maurice Grover Primary Care Provider: Unknown Physician HPI Reason for consult: Rapid response for bradycardia and hypotension Source of history: ?IM physician, patient's records and patient ? HPI: ?Rapid response was called on this patient who developed acute bradycardia and hypotension with heart rate in the mid 30s and blood pressure in the 60s, he was admitted on 05/27/2022 due to osteomyelitis of left great toe with maggot infestation, hyper bilirubinemia, painless jaundice and possible cholecystitis, NON-STEMI who is not a candidate for intervention or anticoagulation, anasarca without overt CHF exacerbation, with a recorded ejection fraction 15%, hypon atremia, coagulopathy in the setting of liver failure.? Is known the patient had a angioplasty by vascular surgery in April of this year, he is being treated for his osteomyelitis with linezolid and Flagyl as he has an allergy to vancomycin, he did have a CT and HIDA scan which shows evidence of painless cholecystitis for which surgical team had been consulted, they did not think this is related to acute cholecystitis rather they think this is related to functional liver cirrhosis, no surgical intervention granted for these showed this point. ? Reportedly the patient presented with 2 days worth of toe pain however on exam the patient had maggots crawling out of the wound on the dorsal aspect of his right big toe. On arrival to the ED patient was found to be hemodynamically stable with no si gnificant abnormal vitals. Labs are significant for WBC count of 11.1, hemoglobin of 11.8, hematocrit 35.7, PT of 23, INR of 2.0, sodium of 125, chloride 92, BUN of 25, creatinine of 0.96, lactic acid of 3.5 that improved after IV fluids, total bilirubin of 11.6, direct bilirubin of 8.0, AST of 125, ALT of 242, troponin of 2845, BNP of 3486, he has chronic elevated BNP but this seems to be worse.? UA negative, Imaging including abdominal pelvic CT showed right colon colitis, small amount of ascites, fatty liver and question of mild cirrhotic changes, periorbital lymphadenopathy, gallstones.? No biliary duct dilatation or bile duct stone seen by CT, moderate right pleural effusion and right lower lobe pneumonia. Doppler study ultrasound of the abdomen shows cholelithiasis with gallbladder sludge with color wall thickening and mild intramural edema compatible with cholecystitis.? Venous duplex shows no DVT in the left lower extremity Foot x-ray shows findings compatible with joint sepsis and periarticular osteomyelitis of the great toe IP joint.? Interval bone destruction or erosive change. ? During the rapid response, the patient denied any lightheadedness or dizziness, headache, double or blurry vision, chest pain or shortness of breath, arm or jaw pain, abdominal pain, nausea, vomiting, diarrhea, fever like symptoms, ?I do not have anything I just want some Water?.? As discussed with the internal medicine physician the patient is on an overflow unit and is hemodynamically and stable, will transfer him to ICU for further care. ? ROS:? As above otherwise the remainder of the review systems were reviewed they were negative. ? Past Medical History:? 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 Past Surgical History:? As above in addition to Left anterior tibial artery and left popliteal artery 30 angioplasty on 04/27/2022. TURP Laminectomy ? Family history: ?His father had a stroke, asthma, hypertension and mental illness; his mother had coronary disease, asthma and diabetes ? Social History:? Patient lives at home, denies history of alcoholism, he does admit to drinking in the distant past unable to quantify, denies tobacco ever, no drugs. ? CODE STATUS: FULL CODE per patient wishes, he appears very coherent with his answers. ? Allergies: NKDA ? Home Medications: See Med Rec ? PHYSICAL EXAM: VS: ?67/40; 50 after atropine, 12, 93% room air, 971 F General:? Alert oriented x3 no acute distress.? Speaking full sentences.? Speech is well articulated, thought process is coherent.? Following all commands. Skin: ?Jaundice, missing part of the left annular finger, right BKA all in appearance, left foot great toe at the dorsal aspect shows a crater like wound which appears the pen unstageable to my view but certainly getting into the bone no surrounding erythema is noted. HEENT:? Head is normocephalic, atraumatic, bulbar conjunctivae is icteric, pupils equal round reactive to light accommodation bilaterally.? Extraocular movements appear intact.? Buccal mucosa is moist, Neck is supple without lymphadenopathy. Cardiac:? Clear S1-S2, S3 gallop up the left lower sternal border, no murmurs or rubs. Pulmonary:? Bibasilar crackles, no wheezes or rhonchi. ? Abdomen:? Protuberant, positive bowel sounds in all 4 quadrants.? Soft, nontender, no rebound or guarding.? Musculoskeletal:? Moving all 4 extremities including the amputated extremity at the major joints, no crepitus.? There is no calf tenderness on the?? .? There is bilateral 2+ pitting edema up to mid thighs. Neurologic:? As above, cranial nerves 2-12 are grossly intact.? No focal deficits noted. Motor strength as above.? Vascular:? 2+ pulses upper extremities distally.? Dorsalis pedis pulse is on the left?foot is only noted with Doppler. ? SIGNIFICANT LABORATORY DATA:? White count 7.3, hemoglobin 10.1, hematocrit 31.4 (11.8/31.4 respectively), platelets 113, BUN 131, potassium 3.3, chloride 95, carbon dioxide 25, anion gap 14, BUN 45, creatinine 0.93, glucose 151, osmolality 277, S 8058, ALT 119, total bilirubin 7.8, troponin 2291 (down from 2 775), BMP 2667 (down from 3 486), albu min 2.4, procalcitonin 0.27, CRP 5.73 (down from 6.26) ? REVIEW OF IMAGES: ?As above ? EKG REVIEW: ?To my view disease junctional bradycardia 41 beats per minute, left axis deviation.? ST segment depression throughout the lateral leads age-indeterminate changes.? QT 708. ? ASSESSMENT AND PLAN: 1. Acute bradycardia and hypotension likely due to beta-cass, spironolactone (intolerance and/or retention) pt non compliant with meds worsen by ICMO and low which giving the high trop maked me wonder if this is cardiac shock or related 2. Anasarca and acute on chronic CHF exacerbation without overt event or symptoms but with low ejection fraction 15% 3. Left foot osteomyelitis 4. Left foot diabetic erosive wound (surgery an ID ) involved 5. Hyperbilirubinemia/painless jaundice ? ?Shock liver syndrome 6. Elevated troponin likely illness induced myopathy on top of his ischemic cardiomyopathy 7. Hyponatremia likely volume overload related given underlying liver cirrhosis 8. Coagulopathy likely due to liver disease 9. Uncontrolled diabetes 10. Hypoalbuminemia 11. Suspected sepsis due to underlying osteomyelitis I do not think he is in septic shock ? PLAN OF CARE: 1. Transferred into ICU, strict I&Os, vital signs per unit protocol, folic catheter, pacer pads, will start him on dopamine, I did notice the patient is taking Coreg therefore he can retain in these causing beta-cass toxicity, his blood sugar was 146, 1 mg of glucagon IV x1 will be given. 2. The call blood pressure would be between 90 and 100 systolic given his significant cardiomyopathy and low ejection fraction, a goal heart rate between 60 and 70s. 3. Continue with Bumex, continue with wound care and antibiotics which include linezolid , Zosyn.? (his wound culture final result is positive for E coli and Klebsiella) blood cultures after 24 hours showed no growth. 4. Continue with aspirin and Plavix, statin. 5. I do not think the patient is in overt heart failure, if anything his BNP is coming down he has no respiratory distress or accessory muscle usage. 6. I will give him albumin to help with the blood pressure is well increase his oncotic pressure. 7. Repeat laboratories in the morning, recheck blood sugar after glucagon administration cover with insulin sliding scale as needed. 8. The patient cannot receive IV fluids due to the risk of worsening his fluid overload and underlying CHF, he is already on antibiotics. His initial lactic acid was 1.8 will repeat in the morning 9. If the patient's white count or lactic acid is higher in the morning, we may need to review antibiotic coverage with ID. I do not think the patient needs a new set of blood cultures at this point. 10. Unfortunately given his history and with the his wound these he may end up losing the toes on foot 330 am 05/29/2022 clinical update I discussed the case with Dr. Scanlon benefits representative who saw the patient earlier and he did not think this was cardiac related but more due to his illness and infection, liver disease, he is now aware of all the above-mentioned events.? This point he recommend switching dopamine to epinephrine which would have a better effect on the patient's both heart rate and blood pressure particularly knowing that he is taking Coreg. His not sure if this patient would be a candidate for pacemaker, if the above- mentioned intervention does not work, transcutaneous pacing may be necessary. ? GI PROPHYLAXIS: DVT PROPHYLAXIS:? On heparin ? Critical care time used for critical evaluation of this patient, diagnosis, treatment and coordination of care, review her records and documentation TOTAL CRITICAL CARE TIME 120 MIN . Patient's care was discussed in detail with Dr. Cross.? He is aware of all the above as well as the plan of care for this patient. [facility] Past Medical History Medical History Abscess or cellulitis of foot Acute on chronic anemia Acute on chronic combined systolic and diastolic congestive heart failure Acute on chronic HFrEF (heart failure with reduced ejection fraction) Acute respiratory failure with hypoxia Asthma Bipolar 1 disorder BPH (benign prostatic hyperplasia) CHF (congestive heart failure) CHF (congestive heart failure) CHF exacerbation Cholelithiasis Closed wedge compression fracture of T9 vertebra COPD (chronic obstructive pulmonary disease) Diabetes mellitus Diabetes mellitus, type 2 Elevated troponin GERD (gastroesophageal reflux disease) Hyperlipidemia Ischemic cardiomyopathy Lymphadenopathy Opiate abuse, continuous Osteomyelitis Osteomyelitis of great toe Peripheral arterial disease Peripheral neuropathy Peripheral vascular disease Substance abuse Tracheomalacia, acquired Transaminitis Family History Family History Father Chronic mental illness Hypertension Asthma Stroke Mother Asthma Diabetes Coronary artery disease Surgical History Surgical History History of amputation History of laminectomy History of transurethral resection of prostate Hx of BKA Social History Social History Household Members: Unknown / Unable to assess Housing: House Housing Other:: IN A LITTLE ROOM Do you presently have visiting nurse or other home services: No Unable to assess alcohol history related to: Refusing to respond Alcohol intake: unknown Patient Tobacco Use Status: Never used Tobacco e-Cigarette/Vaping Use: Never Used Second Hand Smoke Exposure: No Substance Use Type: Marijuana Advance Directives Date on File: 11/24/20 service: No Current occupational status: unemployed and disabled Meds Allergies Allergy/AdvReac Type Severity Reaction Status Date / Time ertapenem Allergy Intermediate Hives Verified 02/21/22 18:40 vancomycin [VANCOMYCIN] Allergy Intermediate HIVES Verified 02/21/22 18:40 Chocolate Allergy Unknown Rash Verified 02/21/22 18:40 ciprofloxacin [From CIPRO] Allergy Unknown SWELLING Verified 02/21/22 18:40 hydrocortisone [Cipro HC] Allergy Unknown Unknown Verified 02/21/22 18:40 sulfamethoxazole Allergy Unknown rash Verified 02/21/22 18:40 [From BACTRIM] trimethoprim [From BACTRIM] Allergy Unknown rash Verified 02/21/22 18:40 turkey [TURKEY] Allergy Unknown RASH Verified 02/21/22 18:40 Active Medications: Current Medications Acetaminophen (Acetaminophen 325 Mg Tablet) 650 mg PO Q6H PRN PRN Reason: Pain, Mild (Pain Scale 1-3) Albuterol Sulfate (Albuterol Sulfate 90 Mcg 8 Gm Inhaler) 2 puff INHALE Q4H PRN PRN Reason: dyspnea Aspirin (Aspirin Enteric Coated 81 Mg Tablet.Dr) 81 mg PO DAILY [facility] Last Admin: 05/28/22 08:33 Dose: 81 mg Atorvastatin Calcium (Atorvastatin Calcium 20 Mg Tablet) 20 mg PO BEDTIME [facility] Last Admin: 05/28/22 22:51 Dose: 20 mg Bumetanide (Bumetanide 1 Mg/4 Ml Vial) 2 mg IVPUSH BID@0900,1700 [facility]; Protocol Last Admin: 05/28/22 16:26 Dose: 2 mg Carvedilol (Carvedilol 6.25 Mg Tablet) 6.25 mg PO BID [facility]; Protocol Last Admin: 05/28/22 22:51 Dose: 6.25 mg Clopidogrel Bisulfate (Clopidogrel Bisulfate 75 Mg Tablet) 75 mg PO DAILY [facility] Docusate Sodium (Docusate Sodium 100 Mg Capsule) 100 mg PO DAILY PRN PRN Reason: Constipation Famotidine (Famotidine 20 Mg Tablet) 20 mg PO BID [facility] Last Admin: 05/28/22 22:53 Dose: 20 mg Fluticasone Propionate (Fluticasone Propionate Nasal 16 Gm [place]) 1 spray NOSTRIL-B DAILY PRN PRN Reason: Allergy Symptoms Fluticasone/Vilanterol (Fluticasone/Vilanterol 200/25 Blst.W.Dev) 1 puff INHALE RDAILY [facility] Last Admin: 05/28/22 09:14 Dose: Not Given Gabapentin (Gabapentin 100 Mg Capsule) 200 mg PO TID [facility] Last Admin: 05/28/22 22:51 Dose: 200 mg Heparin Sodium (Porcine) (Heparin Sodium,Porcine 5,000 Unit/Ml Vial) 5,000 unit SUBCUT Q12H [facility] Last Admin: 05/28/22 22:51 Dose: 5,000 unit Piperacillin Sod/Tazobactam (Sod 3.375 gm/ Sodium Chloride) 50 mls @ 100 mls/hr IV Q6H [facility] Last Infusion: 05/29/22 02:28 Dose: Infused Linezolid (Zyvox/D5w) 600 mg in 300 mls @ 300 mls/hr IV Q12H [facility] Last Infusion: 05/29/22 00:34 Dose: Infused Albumin Human (Kedbumin 25 %) 100 mls @ 100 mls/hr IV Q1H [facility] Stop: 05/29/22 03:59 Last Admin: 05/29/22 02:21 Dose: 100 mls/hr Epinephrine 5 mg/ Dextrose 255 mls @ 0 mls/hr IVCONT .Q0M [facility]; Protocol Insulin Glargine (Insulin Glargine,Hum.Rec.Anlog 100 Unit/Ml 10 Ml Vial) 10 unit SUBCUT DAILY@1700 [facility] Last Admin: 05/28/22 19:51 Dose: Not Given Insulin Human Lispro (Insulin Lispro 100 Unit/Ml 3 Ml Vial) 5 unit SUBCUT TIDAC [facility] Last Admin: 05/28/22 16:37 Dose: Not Given Insulin Human Lispro (Insulin Lispro 100 Unit/Ml 3 Ml Vial) 0 unit SUBCUT QIDACHS [facility]; Protocol Last Admin: 05/28/22 22:52 Dose: Not Given Lidocaine (Lidocaine 4 % Patch Adh..Patch) 1 patch TRANSDERMA DAILY [facility] Loratadine (Loratadine 10 Mg Tablet) 10 mg PO DAILY [facility] Methadone HCl (Methadone Hcl 20 Mg/2 Ml Oral.Conc) 50 mg PO DAILY [facility] Last Admin: 05/28/22 10:24 Dose: 50 mg Montelukast Sodium (Montelukast Sodium 10 Mg Tablet) 10 mg PO BEDTIME [facility] Last Admin: 05/28/22 22:51 Dose: 10 mg Ondansetron HCl (Ondansetron Hcl 4 Mg/2 Ml Vial) 4 mg IVPUSH Q8H PRN PRN Reason: Nausea and Vomiting Pharmacy Consult (Consult Rx Perform Med Rec) 1 each MISCELLANE ONCE PRN PRN Reason: Consult order Sacubitril/Valsartan (Sacubitril/Valsartan 1 Tab Tablet) 1 tab PO BID [facility]; Protocol Last Admin: 05/28/22 22:51 Dose: 1 tab Sodium Chloride (0.9 % Sodium Chloride Flush 3 Ml Syringe) 3 ml IVFLUSH QSHIFT [facility] Last Admin: 05/28/22 23:35 Dose: 3 ml Spironolactone (Spironolactone 25 Mg Tablet) 12.5 mg PO DAILY [facility]; Protocol Tamsulosin HCl (Tamsulosin Hcl 0.4 Mg Capsule) 0.4 mg PO DAILY@1700 [facility] Last Admin: 05/28/22 16:26 Dose: 0.4 mg Urea (Urea 15 Gm Powder) 15 gm PO BID [facility] Last Admin: 05/28/22 22:52 Dose: 15 gm Zinc Sulfate (Zinc Sulfate 220 Mg Capsule) 50 mg PO DAILY [facility] Home Medications Medication Instructions Recorded Confirmed Last Taken Type albuterol sulfate 90 mcg/actuation 2 puff inhalation Q4-6H PRN dyspnea 05/28/22 05/28/22 Unknown History aerosol inhaler (ProAir HFA) aspirin 81 mg tablet,delayed 1 tab PO QAM 05/28/22 05/28/22 Unknown History release atorvastatin 20 mg tablet 1 tab PO BEDTIME 05/28/22 05/28/22 Unknown History bumetanide 2 mg tablet 1 tab PO BID 05/28/22 05/28/22 Unknown History carvedilol 6.25 mg tablet 6.25 mg PO BID 05/28/22 05/28/22 Unknown History clopidogrel 75 mg tablet 1 tab PO DAILY 05/28/22 05/28/22 Unknown History famotidine 20 mg tablet 20 mg PO BID 05/28/22 05/28/22 Unknown History fluticasone 500 mcg-salmeterol 50 1 puff PO BID 05/28/22 05/28/22 Unknown History mcg/dose blistr powdr for inhalation (Advair Diskus) fluticasone propionate 50 1 - 2 spray intranasal DAILY PRN 05/28/22 05/28/22 Unknown History mcg/actuation nasal Allergy Symptoms spray,suspension gabapentin 100 mg capsule 2 cap PO TID 05/28/22 05/28/22 Unknown History insulin aspart U-100 100 unit/mL 5 unit subcut TID 05/28/22 05/28/22 Unknown History (3 mL) subcutaneous pen (Novolog Flexpen U-100 Insulin aspart) lidocaine 5 % topical patch 1 patch topical DAILY 05/28/22 05/28/22 Unknown History (Lidoderm) methadone 10 mg/mL oral concentrate 52 mg PO DAILY 05/28/22 05/28/22 Unknown History montelukast 10 mg tablet 1 tab PO QPM 05/28/22 05/28/22 Unknown History sacubitril 24 mg-valsartan 26 mg 1 tab PO BID 05/28/22 05/28/22 Unknown History tablet (Entresto) spironolactone 25 mg tablet 12.5 mg PO DAILY 05/28/22 05/28/22 Unknown History tamsulosin 0.4 mg capsule 1 cap PO QPM 05/28/22 05/28/22 Unknown History zinc sulfate 50 mg zinc (220 mg) 1 cap PO DAILY 05/28/22 05/28/22 Unknown History capsule Physical Exam Vital Signs: Vital Signs: Last Vital Signs Temp 96.3 F L 05/29/22 03:17 Pulse 60 05/29/22 03:17 Resp 16 05/29/22 03:17 BP 78/51 L 05/29/22 03:17 Pulse Ox 94 05/29/22 03:17 O2 Del Method 05/29/22 03:17 BMI result Body Mass Index 22.4 Results Labs CBC & Chem 7: 05/29/22 05:25 05/29/22 05:25 Labs: Short CBC 05/28/22 05/29/22 Range/Units 05:39 01:15 WBC 11.1 H 7.3 (4.8-10.8) X10*3/uL Hgb 11.8 L 10.1 L (14.0-18.0) g/dl Hct 35.7 L 31.4 L (42.0-52.0) % Plt Count 142 L D 113 L (160-400) X10*3/uL BMP 05/28/22 05/29/22 05:39 01:15 Sodium 126 L 131 L Potassium 4.0 3.3 Chloride 92 L 95 L Carbon Dioxide 25 25 BUN 25 H 45 H D Creatinine 0.96 0.93 Calcium 8.6 8.1 L Liver Function 05/28/22 05/29/22 Range/Units 05:39 01:15 Total Bilirubin 10.1 H 7.8 H (0.0-1.0) mg/dL AST 86 H 58 H (5-37) U/L ALT 172 H 119 H (0-40) U/L Alkaline Phosphatase 97 78 (39-117) U/L Albumin 2.9 L 2.4 L (3.5-5.0) g/dL Microbiology Microbiology Results: Microbiology 05/27/22 13:58 Blood - Venous Blood Culture - Preliminary No growth after 24 hours. 05/27/22 12:47 Blood - Venous Blood Culture - Preliminary No growth after 24 hours.
[2022-05-29 04:06] LABS: Glucose, Whole Blood 106 mg/dL (60-115)
[2022-05-29] MEDS: EPINEPHrine 5 MG in Dextrose 5 % 250 ML 38.59 MG IVCONT ×2 (04:09→12:02)
--- NOTE | 2022-05-29 04:39 | PC.NURSE ---
Pt transferred to ICU from ED overflow at approx 0130. Upon initial assessment- pt A&Ox3, vague. ?junctional on tele, HR 30-50s. SBP 60-70s. Pacer pads on pt per PA. Dopamine gtt ordered and titrated per mar. Atropine 1 mg IVP x1 and glucagon 1 mg IVP given, and albumin IV x2 bottles given. Dopamine switched to epinephrine, titrated per mar. TLC to R IJ placed. Alberts placed. L foot dsg C/D/I, skin otherwise intact.
[2022-05-29 05:38] LABS: Basophils Percent Auto 0.1 % (0-2); Eosinophils Absolute Auto 0.2 X10*3/uL (0.0-0.4); Eosinophils Percent Auto 1.2 % (0-4); Hemoglobin 11.1 g/dl (14.0-18.0); Imm Gran Abs Auto 0.09 X10*3/uL (0.00-0.03); Imm Gran Pct Auto 0.6 % (0.0-0.4); Lymphocytes Absolute Auto 1.1 X10*3/uL (1.2-4.9); Lymphocytes Percent Auto 7.2 % (20-40); MANUAL DIFF FLAG SCAN; Mean Corpuscular HGB Conc 31.7 g/dl (31.0-36.0); Mean Corpuscular Hemoglobin 28.2 pg (27.0-33.0); Mean Corpuscular Volume 89.1 fL (80.0-98.0); Mean Platelet Volume 10.5 fL (9.4-12.4); Monocytes Absolute Auto 1.5 X10*3/uL (0.1-1.2); Monocytes Percent Auto 10.1 % (2-11); Neutrophils Absolute Auto 12.2 x10*3/uL (2.0-8.3); Neutrophils Percent Auto 80.8 % (45-73); Platelet Count 156 X10*3/uL (160-400); Red Blood Count 3.93 X10*6/uL (4.60-5.80); Red Cell Distribution Width 20.5 % (11.0-16.0); SCAN SMEAR FLAG 1; White Blood Count 15.1 X10*3/uL (4.8-10.8)
[2022-05-29 05:44] LABS: INTERNATIONAL NORM RATIO 1.6 (0.9-1.1); Prothrombin Time 18.9 SEC (10.0-13.1)
[2022-05-29 05:56] LABS: SLIDE REVIEW VERIFIED
[2022-05-29 06:02] LABS: Alanine Aminotransferase 117 U/L (0-40); Albumin Level 3.7 g/dL (3.5-5.0); Alkaline Phosphatase 79 U/L (39-117); Anion Gap 14 (12-20); Aspartate Amino Transferase 58 U/L (5-37); Bilirubin Total 8.7 mg/dL (0.0-1.0); Blood Urea Nitrogen 45 mg/dL (9-16); Calcium 8.9 mg/dL (8.4-10.2); Carbon Dioxide 26 mmol/L (22-29); Chloride 93 mmol/L (96-108); Creatinine Clr Calc Pharmacy 76.9; Estimated Glomerular Filt Rate > 60; Glucose Random 136 mg/dL (60-115); Magnesium 1.4 mg/dL (1.6-2.6); Potassium 3.6 mmol/L (3.3-5.1); Sodium 129 mmol/L (135-145); Total Protein 6.6 g/dL (6.5-8.0)
--- NOTE | 2022-05-29 06:14 | HO.SEPSISX_ITS ---
Sepsis Bolus Exclusion Sepsis Bolus Exclusion This patient met severe sepsis criteria due to the following condition(s):: Hypo tension (Bradycardia, current infection and now worsening white count) In my clinical judgement the administration of 30 ml/kg of crystalloid would be detrimental to this patient due to the patient's following conditions:: Concern for fluid overload and Other (This patient cannot receive IV fluids under any circumstance as his a high risk of worsening heart failure) Other (must be specific):: Severe ischemic cardiomyopathy, CHF with ejection fraction of 15% Replace the 30 mls/kg with (*zero amount not acceptable): *Note: One of the larry must be documented Crystalloids amount given in mls: (rate must be at least 150cc/hr): 0
--- NOTE | 2022-05-29 07:33 | ECG_ITS ---
Test Reason : Ordered by physician Blood Pressure : / mmHG Vent. Rate : 000 BPM Atrial Rate : 000 BPM P-R Int : 000 ms QRS Dur : 000 ms QT Int : 000 ms P-R-T Axes : 000 000 000 degrees QTc Int : 000 ms No QRS complexes found, no ECG analysis possible When compared with ECG of 27-MAY-2022 12:10, Current undetermined rhythm precludes rhythm comparison, needs review Referred By: Michael Cross Electronically Signed By:
[2022-05-29 07:35] LABS: Troponin-I High Sensitivity 2138.2 ng/L (<3.5-35.0)
[2022-05-29] MEDS: Heparin Sodium,Porcine 5,000 UNIT/ML VIAL 5000 UNIT SUBCUT (08:21)
[2022-05-29] MEDS: Magnesium Sulfate/H2O 2 GM/50 ML PIGGYBACK IV (08:21)
[2022-05-29] MEDS: Linezolid/D5W 600 MG/300 ML PIGGYBACK 300 MG IV (08:21)
[2022-05-29] MEDS: Potassium Chloride Packet 20 MEQ PACKET 40 MEQ PO (08:21)
[2022-05-29] MEDS: Bumetanide 1 MG/4 ML VIAL 2 MG IVPUSH (08:23)
[2022-05-29] MEDS: Insulin Lispro 100 UNIT/ML 3 ML VIAL SUBCUT ×2 (08:23→12:16)
[2022-05-29 08:40] LABS: Glucose, Whole Blood 115 mg/dL (60-115)
--- NOTE | 2022-05-29 09:30 | PC.NURSE ---
Addendum entered by Niko Rosas RN 05/29/22 18:16: upon arrival of life flight, ordered to have pt intubated. RT, life flight, and this RN at bedside. succuessfully intubated pt with 8.0 ETT 23 @ lip. w/ + end tidal. Meds given per MD verbal order IVP: 50mg Rafael, 20mg Ketamine, 10mcg Epi. [place] [facility] Addendum entered by Niko Rosas RN 05/29/22 15:33: report given to [facility] [place] d/c order to be placed and transport to be contacted Addendum entered by Niko Rosas RN 05/29/22 15:32: drips titrated per verbal order Addendum entered by Niko Rosas RN 05/29/22 14:29: placed LUE A line, informed MD pt continues to sustain HR 30s, no new orders at this time Addendum entered by Niko Rosas RN 05/29/22 13:20: placing A line Addendum entered by Niko Rosas RN 05/29/22 13:01: per start dobut drip at 1 Addendum entered by Niko Rosas RN 05/29/22 12:26: informed md of RR of 5 w/ prolonged apnea, per md have RT place pt on Bipap. RT placed pt on bipap. afterwards, pt rhythm changed, informed, pictures sent. md arrived to unit afterwards, assessing pt at bedside Addendum entered by Niko Rosas RN 05/29/22 11:06: pt unable to take anything PO due to lethargy. all PO meds held, informed Addendum entered by Niko Rosas RN 05/29/22 09:33: informed of pt's vitals including RR Original Note: contacted this am due to pt's lethargy requiring freq sternal rubs to awaken and pt unable to stay awake. informed of pt's critical trop and change in ECG status, ECG was obtained this AM d/t DE interval. sent photos. spoke w/ MD over the phone, meds being adjusted, all PO meds were not administered yet, awaiting md orders, IV meds administered. safety and fall precautions in place. pt repo'ed q2 and moving in bed.
[2022-05-29 10:14] LABS: VBG Base Excess -6.2 mmol/L; VBG HCO3 17 mmol/L (22-26); VBG pCO2 29 mmHg; VBG pH 7.38 (7.32-7.43); VBG pO2 50 mmHg
[2022-05-29 10:16] LABS: Venous Blood Gas Refer to POC result
[2022-05-29 10:54] LABS: Ammonia 34 umol/L (13-55)
[2022-05-29 11:58] LABS: Glucose, Whole Blood 126 mg/dL (60-115)
--- NOTE | 2022-05-29 11:58 | PM.PNCARD ---
Subjective Subjective Date of Service: 05/29/22 Principal diagnosis: Shock Interval history: Overnight patient developed hypotension and bradycardia. Was transferred to ICU. His altered mental status. He has peripheral cyanosis. Was started on epinephrine drip and the heart rate and blood pressure have improved although patient has altered mental sensorium. All his medications have been withheld at this point in time. He still however got his Bumex this morning. Noted to have significantly prolonged first-degree AV block. Review of Systems Review of Systems Yes Unobtainable due to mental status Physical Exam Vital Signs: Last Vital Signs Temp 97.2 F 05/29/22 11:00 Pulse 53 05/29/22 11:00 Resp 8 L 05/29/22 11:00 BP 104/67 05/29/22 11:00 Pulse Ox 100 05/29/22 11:00 O2 Del Method 05/29/22 11:00 O2 Flow Rate 2 05/29/22 11:00 BMI result Body Mass Index 22.4 Const General: patient obtunded Nutritional Appearance: malnourished Orientation/consciousness: patient obtunded Neck Neck: Yes trachea midline, Yes supple and Yes no JVD Resp Effort & Inspection: decreased respiratory effort Auscultation: diminished lung sounds Cardio Jugular venous distension: no JVD Palpation: abnormal PMI displaced PMI Rate: regular rate Rhythm: regular rhythm Heart sounds: S1 normal heart sound present, S2 normal heart sound present, no click, no gallops and no murmurs GI Auscultation: normal bowel sounds Skin General skin exam: ecchymosis Neuro General: patient obtunded Extrem General: No clubbing, Yes cyanosis (Peripheral) and No edema Objective Labs and Meds Result diagrams: 05/29/22 05:25 05/29/22 05:25 Lab results: Laboratory Results - last 24 hr 05/28/22 05/28/22 05/28/22 14:56 14:56 14:56 WBC RBC Hgb Hct MCV MCH MCHC RDW Plt Count MPV Immature Gran % (Auto) Neut % (Auto) Lymph % (Auto) [place] % (Auto) Eos % (Auto) Baso % (Auto) Lymph # (Auto) [place] # (Auto) Eos # (Auto) Baso # (Auto) Abs Immat Gran (auto) Absolute Neuts (auto) Absolute Nucleated RBC Nucleated RBC % (auto) Smear Tech's Comments PT INR VBG pH VBG pCO2 VBG pO2 VBG HCO3 VBG O2 Saturation VBG Base Excess Sodium Potassium Chloride Carbon Dioxide Anion Gap BUN Creatinine Estim Creat Clear Calc Estimated GFR POC Glucose Random Glucose Osmolality Lactic Acid Calcium Magnesium Total Bilirubin AST ALT Alkaline Phosphatase Ammonia Troponin I High Sens B-Natriuretic Peptide Total Protein Albumin Urine Osmolality Ur Random Sodium < 20.0 Urine Creatinine 52.40 Urine Opiates Screen Not Detected Urine Fentanyl Screen Not Detected Ur Barbiturates Screen Not Detected Ur Phencyclidine Scrn Not Detected Ur Amphetamines Screen Not Detected U Benzodiazepines Scrn Not Detected Urine Cocaine Screen Not Detected U Marijuana (THC) Screen POSITIVE H 05/28/22 05/28/22 05/28/22 14:56 15:18 16:34 WBC RBC Hgb Hct MCV MCH MCHC RDW Plt Count MPV Immature Gran % (Auto) Neut % (Auto) Lymph % (Auto) [place] % (Auto) Eos % (Auto) Baso % (Auto) Lymph # (Auto) [place] # (Auto) Eos # (Auto) Baso # (Auto) Abs Immat Gran (auto) Absolute Neuts (auto) Absolute Nucleated RBC Nucleated RBC % (auto) Smear Tech's Comments PT INR VBG pH VBG pCO2 VBG pO2 VBG HCO3 VBG O2 Saturation VBG Base Excess Sodium Potassium Chloride Carbon Dioxide Anion Gap BUN Creatinine Estim Creat Clear Calc Estimated GFR POC Glucose 116 H Random Glucose Osmolality 277 L Lactic Acid Calcium Magnesium Total Bilirubin AST ALT Alkaline Phosphatase Ammonia Troponin I High Sens B-Natriuretic Peptide Total Protein Albumin Urine Osmolality 394 Ur Random Sodium Urine Creatinine Urine Opiates Screen Urine Fentanyl Screen Ur Barbiturates Screen Ur Phencyclidine Scrn Ur Amphetamines Screen U Benzodiazepines Scrn Urine Cocaine Screen U Marijuana (THC) Screen 05/28/22 05/29/22 05/29/22 22:37 01:15 01:15 WBC 7.3 RBC 3.55 L Hgb 10.1 L Hct 31.4 L MCV 88.5 MCH 28.5 MCHC 32.2 RDW 20.5 H Plt Count 113 L MPV 10.1 Immature Gran % (Auto) 0.5 H Neut % (Auto) 78.6 H Lymph % (Auto) 8.6 L [place] % (Auto) 10.6 Eos % (Auto) 1.6 Baso % (Auto) 0.1 Lymph # (Auto) 0.6 L [place] # (Auto) 0.8 Eos # (Auto) 0.1 Baso # (Auto) 0.0 Abs Immat Gran (auto) 0.04 H Absolute Neuts (auto) 5.7 Absolute Nucleated RBC 0.000 Nucleated RBC % (auto) 0.0 Smear Tech's Comments PT INR VBG pH VBG pCO2 VBG pO2 VBG HCO3 VBG O2 Saturation VBG Base Excess Sodium Potassium Chloride Carbon Dioxide Anion Gap BUN Creatinine Estim Creat Clear Calc Estimated GFR POC Glucose 83 Random Glucose Osmolality Lactic Acid Calcium Magnesium Total Bilirubin AST ALT Alkaline Phosphatase Ammonia Troponin I High Sens 2291.1 H* B-Natriuretic Peptide 2667 H Total Protein Albumin Urine Osmolality Ur Random Sodium Urine Creatinine Urine Opiates Screen Urine Fentanyl Screen Ur Barbiturates Screen Ur Phencyclidine Scrn Ur Amphetamines Screen U Benzodiazepines Scrn Urine Cocaine Screen U Marijuana (THC) Screen 05/29/22 05/29/22 05/29/22 01:15 02:00 02:05 WBC RBC Hgb Hct MCV MCH MCHC RDW Plt Count MPV Immature Gran % (Auto) Neut % (Auto) Lymph % (Auto) [place] % (Auto) Eos % (Auto) Baso % (Auto) Lymph # (Auto) [place] # (Auto) Eos # (Auto) Baso # (Auto) Abs Immat Gran (auto) Absolute Neuts (auto) Absolute Nucleated RBC Nucleated RBC % (auto) Smear Tech's Comments PT INR VBG pH VBG pCO2 VBG pO2 VBG HCO3 VBG O2 Saturation VBG Base Excess Sodium 131 L Potassium 3.3 Chloride 95 L Carbon Dioxide 25 Anion Gap 14 BUN 45 H D Creatinine 0.93 Estim Creat Clear Calc 81.9 Estimated GFR > 60 POC Glucose 146 H Random Glucose 151 H Osmolality Lactic Acid 1.8 Calcium 8.1 L Magnesium Total Bilirubin 7.8 H AST 58 H ALT 119 H Alkaline Phosphatase 78 Ammonia Troponin I High Sens B-Natriuretic Peptide Total Protein 5.1 L D Albumin 2.4 L Urine Osmolality Ur Random Sodium Urine Creatinine Urine Opiates Screen Urine Fentanyl Screen Ur Barbiturates Screen Ur Phencyclidine Scrn Ur Amphetamines Screen U Benzodiazepines Scrn Urine Cocaine Screen U Marijuana (THC) Screen 05/29/22 05/29/22 05/29/22 04:02 05:25 05:25 WBC 15.1 H RBC 3.93 L Hgb 11.1 L Hct 35.0 L MCV 89.1 MCH 28.2 MCHC 31.7 RDW 20.5 H Plt Count 156 L D MPV 10.5 Immature Gran % (Auto) 0.6 H Neut % (Auto) 80.8 H Lymph % (Auto) 7.2 L [place] % (Auto) 10.1 Eos % (Auto) 1.2 Baso % (Auto) 0.1 Lymph # (Auto) 1.1 L [place] # (Auto) 1.5 H Eos # (Auto) 0.2 Baso # (Auto) 0.0 Abs Immat Gran (auto) 0.09 H Absolute Neuts (auto) 12.2 H Absolute Nucleated RBC 0.000 Nucleated RBC % (auto) 0.0 Smear Tech's Comments VERIFIED PT 18.9 H INR 1.6 H VBG pH VBG pCO2 VBG pO2 VBG HCO3 VBG O2 Saturation VBG Base Excess Sodium Potassium Chloride Carbon Dioxide Anion Gap BUN Creatinine Estim Creat Clear Calc Estimated GFR POC Glucose 106 Random Glucose Osmolality Lactic Acid Calcium Magnesium Total Bilirubin AST ALT Alkaline Phosphatase Ammonia Troponin I High Sens B-Natriuretic Peptide Total Protein Albumin Urine Osmolality Ur Random Sodium Urine Creatinine Urine Opiates Screen Urine Fentanyl Screen Ur Barbiturates Screen Ur Phencyclidine Scrn Ur Amphetamines Screen U Benzodiazepines Scrn Urine Cocaine Screen U Marijuana (THC) Screen 05/29/22 05/29/22 05/29/22 05:25 05:25 06:13 WBC RBC Hgb Hct MCV MCH MCHC RDW Plt Count MPV Immature Gran % (Auto) Neut % (Auto) Lymph % (Auto) [place] % (Auto) Eos % (Auto) Baso % (Auto) Lymph # (Auto) [place] # (Auto) Eos # (Auto) Baso # (Auto) Abs Immat Gran (auto) Absolute Neuts (auto) Absolute Nucleated RBC Nucleated RBC % (auto) Smear Tech's Comments PT INR VBG pH VBG pCO2 VBG pO2 VBG HCO3 VBG O2 Saturation VBG Base Excess Sodium 129 L Potassium 3.6 Chloride 93 L Carbon Dioxide 26 Anion Gap 14 BUN 45 H Creatinine 0.99 Estim Creat Clear Calc 76.9 Estimated GFR > 60 POC Glucose Random Glucose 136 H Osmolality Lactic Acid 2.0 Calcium 8.9 D Magnesium 1.4 L* Total Bilirubin 8.7 H AST 58 H ALT 117 H Alkaline Phosphatase 79 Ammonia Troponin I High Sens 2138.2 H* B-Natriuretic Peptide Total Protein 6.6 D Albumin 3.7 D Urine Osmolality Ur Random Sodium Urine Creatinine Urine Opiates Screen Urine Fentanyl Screen Ur Barbiturates Screen Ur Phencyclidine Scrn Ur Amphetamines Screen U Benzodiazepines Scrn Urine Cocaine Screen U Marijuana (THC) Screen 05/29/22 05/29/22 05/29/22 08:31 10:09 10:36 WBC RBC Hgb Hct MCV MCH MCHC RDW Plt Count MPV Immature Gran % (Auto) Neut % (Auto) Lymph % (Auto) [place] % (Auto) Eos % (Auto) Baso % (Auto) Lymph # (Auto) [place] # (Auto) Eos # (Auto) Baso # (Auto) Abs Immat Gran (auto) Absolute Neuts (auto) Absolute Nucleated RBC Nucleated RBC % (auto) Smear Tech's Comments PT INR VBG pH 7.38 VBG pCO2 29 VBG pO2 50 VBG HCO3 17 L VBG O2 Saturation 74.0 VBG Base Excess -6.2 Sodium Potassium Chloride Carbon Dioxide Anion Gap BUN Creatinine Estim Creat Clear Calc Estimated GFR POC Glucose 115 Random Glucose Osmolality Lactic Acid Calcium Magnesium Total Bilirubin AST ALT Alkaline Phosphatase Ammonia 34 Troponin I High Sens B-Natriuretic Peptide Total Protein Albumin Urine Osmolality Ur Random Sodium Urine Creatinine Urine Opiates Screen Urine Fentanyl Screen Ur Barbiturates Screen Ur Phencyclidine Scrn Ur Amphetamines Screen U Benzodiazepines Scrn Urine Cocaine Screen U Marijuana (THC) Screen Imaging Radiologist's impression: Impressions Hepatobiliary Scan Nuclear Medicine 05/28/22 17:45 IMPRESSION: This exam is abnormal. While there is filling of the gallbladder there is no definitive visualization of bowel activity by 5.5 hours. At 5.5 hours we may be visualizing the common duct in the region of the shar. There is also delayed uptake by the liver with retention of the agent persisting to 5.5 hours. Given these findings I cannot exclude and we must consider a common duct obstruction. Differential would include significant hepatic cellular dysfunction. Also also cardiac congestion would need to be considered as a cause of delayed liver uptake. Progress Note: A&P Assessment and plan (1) Shock: Status: Acute Assessment and Plan: Patient with shock with L turn mental sensorium appears to be cardiogenic in nature given peripheral cyanosis as well as coolness of his extremities. Most likely due to over-diuresis and loss of volume in the setting of known infection and sepsis. Also possibly because of initiation of his cardiac medications yesterday. Clinically does not appear to be in heart failure. Appears to be hypovolemic cardiogenic shock. I think patient would benefit from volume replacement and high inotropic agent. Continue treat his underlying sepsis aggressively. Patient would not benefit from pacing therapy as his heart rate is adequate and a synchronous ventricular pacing will lead to further reduction in LV stroke volume due to a synchronous RV pacing. Overall prognosis is very guarded. Case discussed with the critical care team Please keep me informed. Will continue to follow with you Time Spent With Patient Time: Total time spent is greater than 50% in coordination of care (as documented) at patient's floor/unit and/or counseling patient: Progress Note: Quality Stroke Does the patient have a stroke diagnosis?: No Procedures Date of Service Date of Service: 05/29/22
[2022-05-29 12:18] LABS: Lactic Acid 1.7 mmol/L (0.5-2.0)
--- NOTE | 2022-05-29 13:20 | PM.PNNEP ---
Subjective Subjective Date of Service: 05/29/22 Principal diagnosis: Shock Interval history: Developing shock physiology ?Septic Pressors Bumex Na improved 125 -> 131 Physical Exam Vital Signs: Vital Signs: Last Vital Signs Temp 97.3 F 05/29/22 13:00 Pulse 64 05/29/22 13:00 Resp 11 L 05/29/22 13:00 BP 110/67 05/29/22 13:00 Pulse Ox 98 05/29/22 13:00 O2 Del Method 05/29/22 13:00 O2 Flow Rate 2 05/29/22 13:00 BMI result Body Mass Index 22.4 Const: General: cooperative and no acute distress Orientation/consciousness: patient oriented x3 Eyes: General: appearance normal, both eyes and all related structures Resp: Effort & Inspection: normal respiratory effort Auscultation: clear to auscultation bilaterally Cardio: Rate: regular rate Rhythm: regular rhythm GI: Palpation (GI): Soft to palpation Auscultation: normal bowel sounds Neuro: General: patient oriented x3 Cognition (Neuro): normal cognition Objective Data Labs CBC & Chem 7: 05/29/22 05:25 05/29/22 05:25 Labs: Laboratory Results - last 24 hr 05/28/22 05/28/22 05/28/22 14:56 14:56 14:56 WBC RBC Hgb Hct MCV MCH MCHC RDW Plt Count MPV Immature Gran % (Auto) Neut % (Auto) Lymph % (Auto) [place] % (Auto) Eos % (Auto) Baso % (Auto) Lymph # (Auto) [place] # (Auto) Eos # (Auto) Baso # (Auto) Abs Immat Gran (auto) Absolute Neuts (auto) Absolute Nucleated RBC Nucleated RBC % (auto) Smear Tech's Comments PT INR VBG pH VBG pCO2 VBG pO2 VBG HCO3 VBG O2 Saturation VBG Base Excess Sodium Potassium Chloride Carbon Dioxide Anion Gap BUN Creatinine Estim Creat Clear Calc Estimated GFR POC Glucose Random Glucose Osmolality Lactic Acid Calcium Magnesium Total Bilirubin AST ALT Alkaline Phosphatase Ammonia Troponin I High Sens B-Natriuretic Peptide Total Protein Albumin Urine Osmolality Ur Random Sodium < 20.0 Urine Creatinine 52.40 Urine Opiates Screen Not Detected Urine Fentanyl Screen Not Detected Ur Barbiturates Screen Not Detected Ur Phencyclidine Scrn Not Detected Ur Amphetamines Screen Not Detected U Benzodiazepines Scrn Not Detected Urine Cocaine Screen Not Detected U Marijuana (THC) Screen POSITIVE H 05/28/22 05/28/22 05/28/22 14:56 15:18 16:34 WBC RBC Hgb Hct MCV MCH MCHC RDW Plt Count MPV Immature Gran % (Auto) Neut % (Auto) Lymph % (Auto) [place] % (Auto) Eos % (Auto) Baso % (Auto) Lymph # (Auto) [place] # (Auto) Eos # (Auto) Baso # (Auto) Abs Immat Gran (auto) Absolute Neuts (auto) Absolute Nucleated RBC Nucleated RBC % (auto) Smear Tech's Comments PT INR VBG pH VBG pCO2 VBG pO2 VBG HCO3 VBG O2 Saturation VBG Base Excess Sodium Potassium Chloride Carbon Dioxide Anion Gap BUN Creatinine Estim Creat Clear Calc Estimated GFR POC Glucose 116 H Random Glucose Osmolality 277 L Lactic Acid Calcium Magnesium Total Bilirubin AST ALT Alkaline Phosphatase Ammonia Troponin I High Sens B-Natriuretic Peptide Total Protein Albumin Urine Osmolality 394 Ur Random Sodium Urine Creatinine Urine Opiates Screen Urine Fentanyl Screen Ur Barbiturates Screen Ur Phencyclidine Scrn Ur Amphetamines Screen U Benzodiazepines Scrn Urine Cocaine Screen U Marijuana (THC) Screen 05/28/22 05/29/22 05/29/22 22:37 01:15 01:15 WBC 7.3 RBC 3.55 L Hgb 10.1 L Hct 31.4 L MCV 88.5 MCH 28.5 MCHC 32.2 RDW 20.5 H Plt Count 113 L MPV 10.1 Immature Gran % (Auto) 0.5 H Neut % (Auto) 78.6 H Lymph % (Auto) 8.6 L [place] % (Auto) 10.6 Eos % (Auto) 1.6 Baso % (Auto) 0.1 Lymph # (Auto) 0.6 L [place] # (Auto) 0.8 Eos # (Auto) 0.1 Baso # (Auto) 0.0 Abs Immat Gran (auto) 0.04 H Absolute Neuts (auto) 5.7 Absolute Nucleated RBC 0.000 Nucleated RBC % (auto) 0.0 Smear Tech's Comments PT INR VBG pH VBG pCO2 VBG pO2 VBG HCO3 VBG O2 Saturation VBG Base Excess Sodium Potassium Chloride Carbon Dioxide Anion Gap BUN Creatinine Estim Creat Clear Calc Estimated GFR POC Glucose 83 Random Glucose Osmolality Lactic Acid Calcium Magnesium Total Bilirubin AST ALT Alkaline Phosphatase Ammonia Troponin I High Sens 2291.1 H* B-Natriuretic Peptide 2667 H Total Protein Albumin Urine Osmolality Ur Random Sodium Urine Creatinine Urine Opiates Screen Urine Fentanyl Screen Ur Barbiturates Screen Ur Phencyclidine Scrn Ur Amphetamines Screen U Benzodiazepines Scrn Urine Cocaine Screen U Marijuana (THC) Screen 05/29/22 05/29/22 05/29/22 01:15 02:00 02:05 WBC RBC Hgb Hct MCV MCH MCHC RDW Plt Count MPV Immature Gran % (Auto) Neut % (Auto) Lymph % (Auto) [place] % (Auto) Eos % (Auto) Baso % (Auto) Lymph # (Auto) [place] # (Auto) Eos # (Auto) Baso # (Auto) Abs Immat Gran (auto) Absolute Neuts (auto) Absolute Nucleated RBC Nucleated RBC % (auto) Smear Tech's Comments PT INR VBG pH VBG pCO2 VBG pO2 VBG HCO3 VBG O2 Saturation VBG Base Excess Sodium 131 L Potassium 3.3 Chloride 95 L Carbon Dioxide 25 Anion Gap 14 BUN 45 H D Creatinine 0.93 Estim Creat Clear Calc 81.9 Estimated GFR > 60 POC Glucose 146 H Random Glucose 151 H Osmolality Lactic Acid 1.8 Calcium 8.1 L Magnesium Total Bilirubin 7.8 H AST 58 H ALT 119 H Alkaline Phosphatase 78 Ammonia Troponin I High Sens B-Natriuretic Peptide Total Protein 5.1 L D Albumin 2.4 L Urine Osmolality Ur Random Sodium Urine Creatinine Urine Opiates Screen Urine Fentanyl Screen Ur Barbiturates Screen Ur Phencyclidine Scrn Ur Amphetamines Screen U Benzodiazepines Scrn Urine Cocaine Screen U Marijuana (THC) Screen 05/29/22 05/29/22 05/29/22 04:02 05:25 05:25 WBC 15.1 H RBC 3.93 L Hgb 11.1 L Hct 35.0 L MCV 89.1 MCH 28.2 MCHC 31.7 RDW 20.5 H Plt Count 156 L D MPV 10.5 Immature Gran % (Auto) 0.6 H Neut % (Auto) 80.8 H Lymph % (Auto) 7.2 L [place] % (Auto) 10.1 Eos % (Auto) 1.2 Baso % (Auto) 0.1 Lymph # (Auto) 1.1 L [place] # (Auto) 1.5 H Eos # (Auto) 0.2 Baso # (Auto) 0.0 Abs Immat Gran (auto) 0.09 H Absolute Neuts (auto) 12.2 H Absolute Nucleated RBC 0.000 Nucleated RBC % (auto) 0.0 Smear Tech's Comments VERIFIED PT 18.9 H INR 1.6 H VBG pH VBG pCO2 VBG pO2 VBG HCO3 VBG O2 Saturation VBG Base Excess Sodium Potassium Chloride Carbon Dioxide Anion Gap BUN Creatinine Estim Creat Clear Calc Estimated GFR POC Glucose 106 Random Glucose Osmolality Lactic Acid Calcium Magnesium Total Bilirubin AST ALT Alkaline Phosphatase Ammonia Troponin I High Sens B-Natriuretic Peptide Total Protein Albumin Urine Osmolality Ur Random Sodium Urine Creatinine Urine Opiates Screen Urine Fentanyl Screen Ur Barbiturates Screen Ur Phencyclidine Scrn Ur Amphetamines Screen U Benzodiazepines Scrn Urine Cocaine Screen U Marijuana (THC) Screen 05/29/22 05/29/22 05/29/22 05:25 05:25 06:13 WBC RBC Hgb Hct MCV MCH MCHC RDW Plt Count MPV Immature Gran % (Auto) Neut % (Auto) Lymph % (Auto) [place] % (Auto) Eos % (Auto) Baso % (Auto) Lymph # (Auto) [place] # (Auto) Eos # (Auto) Baso # (Auto) Abs Immat Gran (auto) Absolute Neuts (auto) Absolute Nucleated RBC Nucleated RBC % (auto) Smear Tech's Comments PT INR VBG pH VBG pCO2 VBG pO2 VBG HCO3 VBG O2 Saturation VBG Base Excess Sodium 129 L Potassium 3.6 Chloride 93 L Carbon Dioxide 26 Anion Gap 14 BUN 45 H Creatinine 0.99 Estim Creat Clear Calc 76.9 Estimated GFR > 60 POC Glucose Random Glucose 136 H Osmolality Lactic Acid 2.0 Calcium 8.9 D Magnesium 1.4 L* Total Bilirubin 8.7 H AST 58 H ALT 117 H Alkaline Phosphatase 79 Ammonia Troponin I High Sens 2138.2 H* B-Natriuretic Peptide Total Protein 6.6 D Albumin 3.7 D Urine Osmolality Ur Random Sodium Urine Creatinine Urine Opiates Screen Urine Fentanyl Screen Ur Barbiturates Screen Ur Phencyclidine Scrn Ur Amphetamines Screen U Benzodiazepines Scrn Urine Cocaine Screen U Marijuana (THC) Screen 05/29/22 05/29/22 05/29/22 08:31 10:09 10:36 WBC RBC Hgb Hct MCV MCH MCHC RDW Plt Count MPV Immature Gran % (Auto) Neut % (Auto) Lymph % (Auto) [place] % (Auto) Eos % (Auto) Baso % (Auto) Lymph # (Auto) [place] # (Auto) Eos # (Auto) Baso # (Auto) Abs Immat Gran (auto) Absolute Neuts (auto) Absolute Nucleated RBC Nucleated RBC % (auto) Smear Tech's Comments PT INR VBG pH 7.38 VBG pCO2 29 VBG pO2 50 VBG HCO3 17 L VBG O2 Saturation 74.0 VBG Base Excess -6.2 Sodium Potassium Chloride Carbon Dioxide Anion Gap BUN Creatinine Estim Creat Clear Calc Estimated GFR POC Glucose 115 Random Glucose Osmolality Lactic Acid Calcium Magnesium Total Bilirubin AST ALT Alkaline Phosphatase Ammonia 34 Troponin I High Sens B-Natriuretic Peptide Total Protein Albumin Urine Osmolality Ur Random Sodium Urine Creatinine Urine Opiates Screen Urine Fentanyl Screen Ur Barbiturates Screen Ur Phencyclidine Scrn Ur Amphetamines Screen U Benzodiazepines Scrn Urine Cocaine Screen U Marijuana (THC) Screen 05/29/22 05/29/22 11:51 12:01 WBC RBC Hgb Hct MCV MCH MCHC RDW Plt Count MPV Immature Gran % (Auto) Neut % (Auto) Lymph % (Auto) [place] % (Auto) Eos % (Auto) Baso % (Auto) Lymph # (Auto) [place] # (Auto) Eos # (Auto) Baso # (Auto) Abs Immat Gran (auto) Absolute Neuts (auto) Absolute Nucleated RBC Nucleated RBC % (auto) Smear Tech's Comments PT INR VBG pH VBG pCO2 VBG pO2 VBG HCO3 VBG O2 Saturation VBG Base Excess Sodium Potassium Chloride Carbon Dioxide Anion Gap BUN Creatinine Estim Creat Clear Calc Estimated GFR POC Glucose 126 H Random Glucose Osmolality Lactic Acid 1.7 Calcium Magnesium Total Bilirubin AST ALT Alkaline Phosphatase Ammonia Troponin I High Sens B-Natriuretic Peptide Total Protein Albumin Urine Osmolality Ur Random Sodium Urine Creatinine Urine Opiates Screen Urine Fentanyl Screen Ur Barbiturates Screen Ur Phencyclidine Scrn Ur Amphetamines Screen U Benzodiazepines Scrn Urine Cocaine Screen U Marijuana (THC) Screen Microbiology Microbiology Results: Microbiology 05/27/22 13:58 Blood - Venous Blood Culture - Preliminary No growth after 24 hours. 05/27/22 12:47 Blood - Venous Blood Culture - Preliminary No growth after 24 hours. Procedures Date of Service Date of Service: 05/29/22 Assessment & Plan Assessment and plan (1) Infestation by maggots: Status: Acute (2) Hyponatremia: Status: Acute Plan Mr. Dominik Hawk is a 51-year-old gentleman with past medical history of insulin-dependent DM2, chronic L foot osteomyelitis, and PAD (s/p L anterior tibial + popliteal artery angioplasty 04/27/22) who presents with toe pain who was found to have maggot infestiation of toe wound. There is also concern of jaundice appearance developing over 2-days prior to admission. Hospital course complicated by cholecysitis and hyponatremia. 1. Hyponatremia Hypervolemic on exam Will need Sosm and Isidra and Uosm to complete work up However given possible cirrhosis and hypervolemia on exam, I suspect an overload mediated hyponatremia. Plan: - fluid restriction 1L/day - c/w IV Bumex 2mg BID - OK to dose urea 30g BID for today. However by tomorrow STOP Urea. Urea nursing home is not indicated in cirrhosis, we will use it for short term - Please watch IV gtt's in ICU, if they are mixed in water may cause worse hypoNa Kingston Mccain MD RTANE I am on [facility] [facility] Time Spent With Patient Time: Total time spent is greater than 50% in coordination of care (as documented) at patient's floor/unit and/or counseling patient: Progress Note: Quality Stroke Does the patient have a stroke diagnosis?: No
--- NOTE | 2022-05-29 14:08 | PM.CCPN ---
Subjective Subjective Date of Service: 05/29/22 Interval History: CRITICAL CARE PROGRESS/TRANSFER NOTE Mr. Hawk was transferred to the ICU early this morning with cardiogenic shock. The patient is a 51 yo M with extensive PMHx -- see the H&P.? History is most notable for severe systolic heart failure and peripheral vascular disease. 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 He had had a left anterior tibial artery and left popliteal artery angioplasties on April [address] Vaughn.? On exam in the ED he was found to have maggots within the wound.? He had a mildly elevated lactate, and BUN/creatinine were 32/1.2 (baseline 16/1.0). ?He was admitted and treated with Zosyn and Zyvox (supposed allergy to vancomycin). Early this morning, the patient became severely bradycardic and hypotensive.? The patient was awake and responsive.? The patient had been getting his usual heart failure medications, including Coreg, Entresto, and Aldactone.? The patient was transferred to the ICU and started on an epinephrine drip. With the patient?s slow Kussmaul breathing, I put him on BiPAP.? The patient is currently on an epinephrine at 0.2ug.? On my exam, the patient was easily arousable but minimally interactive.? He is breathing with Kussmaul respirations.? Respiratory rate ranges from 6 to 14, on BiPAP.? On BiPAP 14/6/30%, tidal volume is in the 700s, sat is 100%.? We dropped him to 12/5/21%.? Tidal volumes still about 700, sat is 97%.? I put an arterial line in (separate procedure).? His pulsatile (conducted) heart rate ranges from 35-60, depending on his rhythm, blood pressure is running about 110/45.? Skin is dry and intermediate temp (not cool, not warm). My bedside echocardiogram:? Severe dilated cardiomyopathy, with ejection fraction 5-10% at most,? the right ventricle is also dilated, with an RV:LV cavity ratio of 1.0-1.1.? 2+ MR by color-flow Doppler, 3 +TR by color-flow Doppler.? CWD 2.8 m/sec.? IVC measured 2.1cm with near complete insp collapse. UPDATED LABORATORY DATA:? Last central venous gas prior to putting him on BiPAP was 7.38/29/-6.? Lactic acid is 1.7. IMPRESSION: The patient's main problem is that he?s in cardiogenic shock.? My aim is to get him off the epinephrine on to only dobutamine. ?Discussed with Dr. Francisco at length, in multiple conversations.? Trying to transfer to [facility].? Dr. Francisco also suggested some gentle volume administration. ?I gave him 100cc 25% albumin and I will give him 250 cc of Ringer's lactate. ADDENDUM:? [place]. Francisco [place] [facility] [place]. [place].? Arranging transfer now. Critical care time (including full chart review; discussion with charge nurse at [facility]; excluding procedures):? 90+ minutes. Critical Care Time (minutes): 90 Physical Exam Vital Signs: Vital Signs: Last Vital Signs Temp 97.3 F 05/29/22 13:00 Pulse 64 05/29/22 13:00 Resp 11 L 05/29/22 13:00 BP 110/67 05/29/22 13:00 Pulse Ox 98 05/29/22 13:00 O2 Del Method 05/29/22 13:00 O2 Flow Rate 2 05/29/22 13:00 BMI result Body Mass Index 22.4 Objective Data Labs CBC & Chem 7: 05/29/22 05:25 05/29/22 05:25 Labs: Laboratory Results - last 24 hr 05/28/22 05/28/22 05/28/22 14:56 14:56 14:56 WBC RBC Hgb Hct MCV MCH MCHC RDW Plt Count MPV Immature Gran % (Auto) Neut % (Auto) Lymph % (Auto) [place] % (Auto) Eos % (Auto) Baso % (Auto) Lymph # (Auto) [place] # (Auto) Eos # (Auto) Baso # (Auto) Abs Immat Gran (auto) Absolute Neuts (auto) Absolute Nucleated RBC Nucleated RBC % (auto) Smear Tech's Comments PT INR VBG pH VBG pCO2 VBG pO2 VBG HCO3 VBG O2 Saturation VBG Base Excess Sodium Potassium Chloride Carbon Dioxide Anion Gap BUN Creatinine Estim Creat Clear Calc Estimated GFR POC Glucose Random Glucose Osmolality Lactic Acid Calcium Magnesium Total Bilirubin AST ALT Alkaline Phosphatase Ammonia Troponin I High Sens B-Natriuretic Peptide Total Protein Albumin Urine Osmolality Ur Random Sodium < 20.0 Urine Creatinine 52.40 Urine Opiates Screen Not Detected Urine Fentanyl Screen Not Detected Ur Barbiturates Screen Not Detected Ur Phencyclidine Scrn Not Detected Ur Amphetamines Screen Not Detected U Benzodiazepines Scrn Not Detected Urine Cocaine Screen Not Detected U Marijuana (THC) Screen POSITIVE H 05/28/22 05/28/22 05/28/22 14:56 15:18 16:34 WBC RBC Hgb Hct MCV MCH MCHC RDW Plt Count MPV Immature Gran % (Auto) Neut % (Auto) Lymph % (Auto) [place] % (Auto) Eos % (Auto) Baso % (Auto) Lymph # (Auto) [place] # (Auto) Eos # (Auto) Baso # (Auto) Abs Immat Gran (auto) Absolute Neuts (auto) Absolute Nucleated RBC Nucleated RBC % (auto) Smear Tech's Comments PT INR VBG pH VBG pCO2 VBG pO2 VBG HCO3 VBG O2 Saturation VBG Base Excess Sodium Potassium Chloride Carbon Dioxide Anion Gap BUN Creatinine Estim Creat Clear Calc Estimated GFR POC Glucose 116 H Random Glucose Osmolality 277 L Lactic Acid Calcium Magnesium Total Bilirubin AST ALT Alkaline Phosphatase Ammonia Troponin I High Sens B-Natriuretic Peptide Total Protein Albumin Urine Osmolality 394 Ur Random Sodium Urine Creatinine Urine Opiates Screen Urine Fentanyl Screen Ur Barbiturates Screen Ur Phencyclidine Scrn Ur Amphetamines Screen U Benzodiazepines Scrn Urine Cocaine Screen U Marijuana (THC) Screen 05/28/22 05/29/22 05/29/22 22:37 01:15 01:15 WBC 7.3 RBC 3.55 L Hgb 10.1 L Hct 31.4 L MCV 88.5 MCH 28.5 MCHC 32.2 RDW 20.5 H Plt Count 113 L MPV 10.1 Immature Gran % (Auto) 0.5 H Neut % (Auto) 78.6 H Lymph % (Auto) 8.6 L [place] % (Auto) 10.6 Eos % (Auto) 1.6 Baso % (Auto) 0.1 Lymph # (Auto) 0.6 L [place] # (Auto) 0.8 Eos # (Auto) 0.1 Baso # (Auto) 0.0 Abs Immat Gran (auto) 0.04 H Absolute Neuts (auto) 5.7 Absolute Nucleated RBC 0.000 Nucleated RBC % (auto) 0.0 Smear Tech's Comments PT INR VBG pH VBG pCO2 VBG pO2 VBG HCO3 VBG O2 Saturation VBG Base Excess Sodium Potassium Chloride Carbon Dioxide Anion Gap BUN Creatinine Estim Creat Clear Calc Estimated GFR POC Glucose 83 Random Glucose Osmolality Lactic Acid Calcium Magnesium Total Bilirubin AST ALT Alkaline Phosphatase Ammonia Troponin I High Sens 2291.1 H* B-Natriuretic Peptide 2667 H Total Protein Albumin Urine Osmolality Ur Random Sodium Urine Creatinine Urine Opiates Screen Urine Fentanyl Screen Ur Barbiturates Screen Ur Phencyclidine Scrn Ur Amphetamines Screen U Benzodiazepines Scrn Urine Cocaine Screen U Marijuana (THC) Screen 05/29/22 05/29/22 05/29/22 01:15 02:00 02:05 WBC RBC Hgb Hct MCV MCH MCHC RDW Plt Count MPV Immature Gran % (Auto) Neut % (Auto) Lymph % (Auto) [place] % (Auto) Eos % (Auto) Baso % (Auto) Lymph # (Auto) [place] # (Auto) Eos # (Auto) Baso # (Auto) Abs Immat Gran (auto) Absolute Neuts (auto) Absolute Nucleated RBC Nucleated RBC % (auto) Smear Tech's Comments PT INR VBG pH VBG pCO2 VBG pO2 VBG HCO3 VBG O2 Saturation VBG Base Excess Sodium 131 L Potassium 3.3 Chloride 95 L Carbon Dioxide 25 Anion Gap 14 BUN 45 H D Creatinine 0.93 Estim Creat Clear Calc 81.9 Estimated GFR > 60 POC Glucose 146 H Random Glucose 151 H Osmolality Lactic Acid 1.8 Calcium 8.1 L Magnesium Total Bilirubin 7.8 H AST 58 H ALT 119 H Alkaline Phosphatase 78 Ammonia Troponin I High Sens B-Natriuretic Peptide Total Protein 5.1 L D Albumin 2.4 L Urine Osmolality Ur Random Sodium Urine Creatinine Urine Opiates Screen Urine Fentanyl Screen Ur Barbiturates Screen Ur Phencyclidine Scrn Ur Amphetamines Screen U Benzodiazepines Scrn Urine Cocaine Screen U Marijuana (THC) Screen 05/29/22 05/29/22 05/29/22 04:02 05:25 05:25 WBC 15.1 H RBC 3.93 L Hgb 11.1 L Hct 35.0 L MCV 89.1 MCH 28.2 MCHC 31.7 RDW 20.5 H Plt Count 156 L D MPV 10.5 Immature Gran % (Auto) 0.6 H Neut % (Auto) 80.8 H Lymph % (Auto) 7.2 L [place] % (Auto) 10.1 Eos % (Auto) 1.2 Baso % (Auto) 0.1 Lymph # (Auto) 1.1 L [place] # (Auto) 1.5 H Eos # (Auto) 0.2 Baso # (Auto) 0.0 Abs Immat Gran (auto) 0.09 H Absolute Neuts (auto) 12.2 H Absolute Nucleated RBC 0.000 Nucleated RBC % (auto) 0.0 Smear Tech's Comments VERIFIED PT 18.9 H INR 1.6 H VBG pH VBG pCO2 VBG pO2 VBG HCO3 VBG O2 Saturation VBG Base Excess Sodium Potassium Chloride Carbon Dioxide Anion Gap BUN Creatinine Estim Creat Clear Calc Estimated GFR POC Glucose 106 Random Glucose Osmolality Lactic Acid Calcium Magnesium Total Bilirubin AST ALT Alkaline Phosphatase Ammonia Troponin I High Sens B-Natriuretic Peptide Total Protein Albumin Urine Osmolality Ur Random Sodium Urine Creatinine Urine Opiates Screen Urine Fentanyl Screen Ur Barbiturates Screen Ur Phencyclidine Scrn Ur Amphetamines Screen U Benzodiazepines Scrn Urine Cocaine Screen U Marijuana (THC) Screen 05/29/22 05/29/22 05/29/22 05:25 05:25 06:13 WBC RBC Hgb Hct MCV MCH MCHC RDW Plt Count MPV Immature Gran % (Auto) Neut % (Auto) Lymph % (Auto) [place] % (Auto) Eos % (Auto) Baso % (Auto) Lymph # (Auto) [place] # (Auto) Eos # (Auto) Baso # (Auto) Abs Immat Gran (auto) Absolute Neuts (auto) Absolute Nucleated RBC Nucleated RBC % (auto) Smear Tech's Comments PT INR VBG pH VBG pCO2 VBG pO2 VBG HCO3 VBG O2 Saturation VBG Base Excess Sodium 129 L Potassium 3.6 Chloride 93 L Carbon Dioxide 26 Anion Gap 14 BUN 45 H Creatinine 0.99 Estim Creat Clear Calc 76.9 Estimated GFR > 60 POC Glucose Random Glucose 136 H Osmolality Lactic Acid 2.0 Calcium 8.9 D Magnesium 1.4 L* Total Bilirubin 8.7 H AST 58 H ALT 117 H Alkaline Phosphatase 79 Ammonia Troponin I High Sens 2138.2 H* B-Natriuretic Peptide Total Protein 6.6 D Albumin 3.7 D Urine Osmolality Ur Random Sodium Urine Creatinine Urine Opiates Screen Urine Fentanyl Screen Ur Barbiturates Screen Ur Phencyclidine Scrn Ur Amphetamines Screen U Benzodiazepines Scrn Urine Cocaine Screen U Marijuana (THC) Screen 05/29/22 05/29/22 05/29/22 08:31 10:09 10:36 WBC RBC Hgb Hct MCV MCH MCHC RDW Plt Count MPV Immature Gran % (Auto) Neut % (Auto) Lymph % (Auto) [place] % (Auto) Eos % (Auto) Baso % (Auto) Lymph # (Auto) [place] # (Auto) Eos # (Auto) Baso # (Auto) Abs Immat Gran (auto) Absolute Neuts (auto) Absolute Nucleated RBC Nucleated RBC % (auto) Smear Tech's Comments PT INR VBG pH 7.38 VBG pCO2 29 VBG pO2 50 VBG HCO3 17 L VBG O2 Saturation 74.0 VBG Base Excess -6.2 Sodium Potassium Chloride Carbon Dioxide Anion Gap BUN Creatinine Estim Creat Clear Calc Estimated GFR POC Glucose 115 Random Glucose Osmolality Lactic Acid Calcium Magnesium Total Bilirubin AST ALT Alkaline Phosphatase Ammonia 34 Troponin I High Sens B-Natriuretic Peptide Total Protein Albumin Urine Osmolality Ur Random Sodium Urine Creatinine Urine Opiates Screen Urine Fentanyl Screen Ur Barbiturates Screen Ur Phencyclidine Scrn Ur Amphetamines Screen U Benzodiazepines Scrn Urine Cocaine Screen U Marijuana (THC) Screen 05/29/22 05/29/22 11:51 12:01 WBC RBC Hgb Hct MCV MCH MCHC RDW Plt Count MPV Immature Gran % (Auto) Neut % (Auto) Lymph % (Auto) [place] % (Auto) Eos % (Auto) Baso % (Auto) Lymph # (Auto) [place] # (Auto) Eos # (Auto) Baso # (Auto) Abs Immat Gran (auto) Absolute Neuts (auto) Absolute Nucleated RBC Nucleated RBC % (auto) Smear Tech's Comments PT INR VBG pH VBG pCO2 VBG pO2 VBG HCO3 VBG O2 Saturation VBG Base Excess Sodium Potassium Chloride Carbon Dioxide Anion Gap BUN Creatinine Estim Creat Clear Calc Estimated GFR POC Glucose 126 H Random Glucose Osmolality Lactic Acid 1.7 Calcium Magnesium Total Bilirubin AST ALT Alkaline Phosphatase Ammonia Troponin I High Sens B-Natriuretic Peptide Total Protein Albumin Urine Osmolality Ur Random Sodium Urine Creatinine Urine Opiates Screen Urine Fentanyl Screen Ur Barbiturates Screen Ur Phencyclidine Scrn Ur Amphetamines Screen U Benzodiazepines Scrn Urine Cocaine Screen U Marijuana (THC) Screen Microbiology Microbiology Results: Microbiology 05/27/22 13:58 Blood - Venous Blood Culture - Preliminary No growth after 24 hours. 05/27/22 12:47 Blood - Venous Blood Culture - Preliminary No growth after 24 hours. Quality Stroke Does the patient have a stroke diagnosis?: No VTE Prior VTE?: No VTE Risk Level:: Medical - moderate - high VTE Device Contraindication: Treatment Not Indicated VTE Drug Contraindication: N/A - Med Ordered Critical Care Time Critical Care Time (minutes): 90
--- NOTE | 2022-05-29 14:09 | W.PM.CCHP ---
Procedures Date of Service Date of Service: 05/29/22 Arterial Line Arterial Line Comments: PROCEDURE:? Insertion left axillary arterial line. Indications:? Cardiogenic shock. Anesthesia:? Local. The left axillary artery was located with vascular ultrasound.? Excellent visualization, 5-6 mm diameter. The axilla and upper arm were prepped and draped.? The axillary artery was again identified.? Lidocaine local anesth was infiltrated at the needle insertion site.? The artery was cannulated on the second pass under US guidance of the 20 gauge thin wall and the wire advanced without incident.? The [place] 20g x 5? femoral arterial cannula was inserted via Seldinger technique without complications and sutured in place with 3-0 silk x 1.? There was an excellent wave form.?? A biopatch and dry sterile dressing were applied. The patient tolerated the procedure well with no complications. Consent: Emergent-no informed consent obtained
[2022-05-29] MEDS: EPINEPHrine 5 MG in Dextrose 5 % 250 ML 19.29 MG IVCONT (17:24)
--- NOTE | 2022-05-29 18:12 | W.PM.CCHP ---
Procedures Date of Service Date of Service: 05/29/22 Intubation Intubation Comments: PROCEDURE NOTE:? Tracheal intubation. INDICATIONS:? Acute respiratory failure and AMS secondary to cardiogenic shock Anesthesia:? Ketamine 20 mg, Zemuron 50mg; pre treatment with epinephrine 20 mcg. Procedure:? The patient developed progressive resp fatigue and Kussmaul breathing. He was placed on BiPAP earlier today. Earlier today he was still easily arousable. Transferred to [facility] for treatment of cardiogenic shock was arranged. As the [facility] crew was in the room preparing to load the patient on their stretcher, it was noted that the patient was no longer responsive. He was therefore intubated prior to transport. He was preoxygenated with BiPAP 95%.? RSI was carried out with the meds above.? The glottis was easily visualized with the [place] scope 3 blade, and the trachea was intubated with an 8.0 ETT, atraumatic.? BSBE, quantitative end-tidal CO2 36-39, SpO2 maintained at 100% throughout.? The tube was secured at 24 cm at the upper teeth. The patient christine the procedure well with no complications.? No postop chest x-ray. Consent for Procedure: Emergent-no informed consent obtained
[2022-05-29] MEDS: Ketamine HCl/NS 100 MG/10 ML SYRINGE 20 MG IVPUSH (18:23)
[2022-05-29] MEDS: Rocuronium Bromide 50 MG/5 ML VIAL IVPUSH (18:24)
[2022-05-29] MEDS: EPINEPHrine 1 MG/ML VIAL IVPUSH (18:24)
[2022-05-30 06:53] LABS: HBS Num1 17.71 mIU/mL (0-7.99); HBc Num1 0.13 S/CO (0.00-0.79); HBsAGNum1 0.31 S/CO (0.00-0.99); Hepatitis A Antibody IgM 0.34 Index (0-0.79); Hepatitis B Core Antibody Nonreactive (Nonreactive); Hepatitis B Surface Antigen Negative (Negative); ~HepC Num1 10.55 S/CO (0.00-0.79); ~Hepatitis A Antibody IgM Nonreactive (Nonreactive); ~Hepatitis B Surface Antibody REACTIVE (Nonreactive); ~Hepatitis C Antibody Reactive (Nonreactive)
[2022-05-31 21:26] LABS: Haptoglobin 66 mg/dL (43-212)
== END 2022-05-29 17:36 | disposition short-term general hospital (02) | DRG 720 ==
LOC: HO.ED 17:12 → HO.EDOVER 20:11 → HO.ICU 05-29 01:22
PROVIDERS: Anesthesiology; Internal Medicine Nephrology; Physician Assistant; Physician Assistant Medical; Admitting Provider Internal Medicine; Emergency Provider Emergency Medicine; Visit Provider Family Medicine
DX: A41.9 Sepsis, unspecified organism (principal); I21.4 Non-ST elevation (NSTEMI) myocardial infarction; R65.21 Severe sepsis with septic shock; I50.23 Acute on chronic systolic (congestive) heart failure; E87.1 Hypo-osmolality and hyponatremia; K81.9 Cholecystitis, unspecified; D68.4 Acquired coagulation factor deficiency; E11.52 Type 2 diabetes mellitus with diabetic peripheral angiopathy with gangrene; N40.0 Benign prostatic hyperplasia without lower urinary tract symptoms; L97.529 Non-pressure chronic ulcer of other part of left foot with unspecified severity; E11.42 Type 2 diabetes mellitus with diabetic polyneuropathy; B87.1 Wound myiasis; E11.69 Type 2 diabetes mellitus with other specified complication; F11.20 Opioid dependence, uncomplicated; J44.9 Chronic obstructive pulmonary disease, unspecified; K21.9 Gastro-esophageal reflux disease without esophagitis; Z89.511 Acquired absence of right leg below knee; E11.621 Type 2 diabetes mellitus with foot ulcer; M86.672 Other chronic osteomyelitis, left ankle and foot; R00.1 Bradycardia, unspecified; I95.2 Hypotension due to drugs; T50.0X5A Adverse effect of mineralocorticoids and their antagonists, initial encounter; I25.5 Ischemic cardiomyopathy; Z20.822 Contact with and (suspected) exposure to COVID-19; Z88.1 Allergy status to other antibiotic agents; Z88.2 Allergy status to sulfonamides; Z88.5 Allergy status to narcotic agent; Z88.8 Allergy status to other drugs, medicaments and biological substances; Z79.82 Long term (current) use of aspirin; Z79.02 Long term (current) use of antithrombotics/antiplatelets; Z79.4 Long term (current) use of insulin; Z79.899 Other long term (current) drug therapy
CPT/HCPCS: 36415; 71045; 73630; 74177; 76705; 78226; 80048; 80053; 80076; 80143; 80307; 81001; 82077; 82140; 82803; 82947; 83010; 83605; 83735; 83880; 83930; 83935; 84145; 84300; 84484; 85025; 85610; 85652; 85730; 86140; 86704; 86706; 86709; 86803; 87040; 87340; 87635; 93005; 93971; 93975; 94640; 94660; 96361; 96365; 96367; 99285; A9537; C1758; J0171; J0461; J1250; J1265; J1610; J2020; J2543; J3475; P9047; Q9967